=== PATIENT | female | born 1955 | race Caucasian/White ===

== ENCOUNTER 2022-09-21 23:02 | Inpatient (IN) | payer MEDICARE, SELFPAY ==
[2022-09-23 23:23] VITALS: PULSE 118; RESP 14; RESP 34; O2SAT 90
[2022-09-23 23:43] VITALS: PULSE 107; RESP 28; O2SAT 94
[2022-09-24] VITALS (75 sets, daily range): BP systolic 117–162; BP diastolic 59–83; PULSE 70–117; RESP 8–39; TEMP 36.2–36.7; O2SAT 83–100
[2022-09-24] MEDS: HYDROXYZINE PAMOATE 25 MG CAPSULE PO (02:15)
--- NOTE | 2022-09-24 03:07 | PC.NURSE ---
pt charting began on [facility] (app[facility] EMR at aprox 0040 09/24/22. prior charting etc can be found on paper charting in record or [employer] EMR
[2022-09-24] MEDS: IPRATROPIUM/ALBUTEROL SULFATE 3 ML AMPUL.NEB INH ×6 (03:42→23:24)
[2022-09-24 04:37] LABS: Hematocrit 45.9 % (36.0-48.0); Hemoglobin 14.4 g/dL (12.0-16.0); Immature Granulocytes Abs Auto 0.11 10^3/uL (0.00-0.03); Immature Granulocytes Pct Auto 1.1 % (0.0-0.5); Lymphocytes Absolute Auto 0.4 10^3/uL (1.2-3.8); Lymphocytes Percent Auto 4.4 % (20.5-60.0); Mean Corpuscular HGB Conc 31.4 g/dL (29.9-35.2); Mean Corpuscular Hemoglobin 31.3 pg (26.7-34.0); Mean Corpuscular Volume 99.8 fL (81.0-99.0); Mean Platelet Volume 9.6 fL (9.5-13.5); Monocytes Absolute Auto 1.7 10^3/uL (0.3-0.8); Monocytes Percent Auto 16.9 % (1.7-12.0); Neutrophils Absolute Auto 7.8 10^3/uL (1.4-6.5); Neutrophils Percent Auto 77.6 % (43.0-75.0); Nucleated Red Blood Cells 0; Platelet Count 239 10^3/uL (150-450); Red Cell Distribution Width 13.5 % (11.0-15.0); White Blood Count 10.1 10^3/uL (4.0-11.0)
[2022-09-24 05:00] LABS: Anion Gap 11.1; BUN Creatinine Ratio 27.1; Calcium 9.2 mg/dL (8.5-10.1); Carbon Dioxide 31.9 mmol/L (21.0-32.0); Chloride 101 mmol/L (98-107); Estimated GFR (African America >60 (>=60); Estimated GFR (Non-African Ame 58 (>=60); Glucose 192 mg/dL (74-106); Sodium 139 mmol/L (136-145)
--- NOTE | 2022-09-24 06:00 | XR_ITS ---
[address] [address] Patient Name: ERICA CHACON MRN: [id number] date: 1955 Sex: F Assigned Patient Location: ICU Current Patient Location: ICU Accession/Order Number: [id number] Exam Date: 09/24/2022 04:22 Report Date: 09/24/2022 23:00 At the request of: ALIS HEAD Procedure: XR chest 1V EXAM: XR chest 1V 09/24/2022 4:22 AM EDT OH001 CLINICAL STATEMENT: sob COMPARISON: 09/23/2022 TECHNIQUE: Single AP radiograph of the chest is submitted. FINDINGS: There is persistent pulmonary vascular congestion with interstitial edema. No acute airspace disease. The cardiac silhouette is normal. The costophrenic recesses are sharp. No pneumothorax. The bony elements are unremarkable. IMPRESSION: Persistent pulmonary vascular congestion with interstitial edema. Electronically authenticated by: TAMAR VALENTINE Date: 09/24/2022 23:00
[2022-09-24] MEDS: METHYLPREDNISOLONE SOD SUCC PF 40 MG/ML VIAL IVP ×3 (06:08→18:42)
[2022-09-24] MEDS: LEVOTHYROXINE SODIUM 112 MCG TABLET PO (06:09)
--- NOTE | 2022-09-24 07:17 | P.PLPN_ITS ---
reviewed Progress Note: A&P Assessment and Plan (1) Hypothyroidism (acquired): (2) Hypertension, essential: (3) COPD with exacerbation: (4) Acute respiratory failure with hypoxia: Plan 1.? Acute exacerbation of bronchiectasis.? More extensive mucus plugging on bronchoscopy 09/23/2022 than originally anticipated, based on CT chest 09/01/2022.? Inspissated secretions, mucus plugs throughout the entire bronchial tree.? Extensive washings and lavage was required.? Patient developed post- procedural bronchospasm.?? Wheezing has improved, but still has diffuse crackles.? CXR imaging reviewed?infiltrates likely secondary to instilled saline from lavage ? no elevation in WBC as sometimes seen post-bronchoscopy.? Continue promoting good pulmonary toilet ? PEP, saline nebs.? 2.? Haemophilus influenzae pneumonia.? Beta-lactamase positive.? Cultured from BAL yesterday 09/23/2022.? This would be present on admission.? Will start Rocephin. 3.? Acute hypercapnic respiratory failure.? Patient symptomatic this morning, improved with BiPAP adjustment.? Still at increased risk for acute worsening requiring urgent intubation.? 4.? Acute hypoxic respiratory failure secondary to #1 & #2.? Continues to have significant mucus production obstructing airflow, etc.? 5.? Acute exacerbation of COPD.? More wheezy/bronchospastic post- bronchoscopy yesterday, but wheezes somewhat improved today.? Continue bronchodilators, steroids. 6.? Multiple pulmonary nodules.? Unchanged on recent imaging. 7.? Tobacco abuse.? Smoking cessation. Patient?s respiratory status is critically ill requiring intensive care unit monitoring.? Developed acute hypercapnia overnight despite BiPAP to the point I almost had to intubate the patient.? With identification of bacteria, now there is a target for treatment.? Discussed with patient and that there should be signs of improvement in the next 24-48 hours with antibiotics. 60 minutes critical care time, including multiple bedside examinations, discussion with RT and RN several times throughout the day. Fall Risk Details Traylor Fall Scale Risk Level: Moderate Fall Risk Current Medications: Current Medications Albuterol/Ipratropium (Ipratropium/Albuterol Sulfate 3 Ml Ampul.Neb) 3 ml INH Q4H [facility] Last Admin: 09/24/22 03:42 Dose: 3 ml Aspirin (Aspirin 81 Mg Tablet.Dr) 81 mg PO QD [facility] Budesonide (Budesonide 0.5 Mg/2 Ml Ampule Neb) 0.5 mg IH BID@1100,2100 [facility] Enoxaparin Sodium (Enoxaparin Sodium 40 Mg/0.4 Ml Syringe) 40 mg SUBQ QD@0800 [facility] Guaifenesin (Guaifenesin 200 Mg/Dextromethorphan 20 Mg 10 Ml Syrup) 10 ml PO Q6H PRN PRN Reason: Cough Hydroxyzine Pamoate (Hydroxyzine Pamoate 25 Mg Capsule) 25 mg PO QID PRN PRN Reason: Anxiety Last Admin: 09/24/22 02:15 Dose: 25 mg Levothyroxine Sodium (Levothyroxine Sodium 112 Mcg Tablet) 112 mcg PO QD@0630 [facility] Last Admin: 09/24/22 06:09 Dose: 112 mcg Losartan Potassium (Losartan Potassium 50 Mg Tablet) 50 mg PO QD [facility] Methylprednisolone Sodium Succinate (Methylprednisolone Sod Succ Pf 40 Mg/Ml Vial) 40 mg IVP Q6H [facility] Last Admin: 09/24/22 06:08 Dose: 40 mg Nicotine (Nicotine 21 Mg Patch.Td24) 21 each TD QD PRN PRN Reason: NICOTINE WITHDRAWAL Ondansetron HCl (Ondansetron Pf 4 Mg/2 Ml Vial) 4 mg IV Q6H PRN PRN Reason: Nausea And Vomiting Polyethylene Glycol (Polyethylene Glycol 3350 17 Gm Powder Packet) 17 gm PO QD PRN PRN Reason: Constipation Sodium Chloride (0.9 % Sodium Chloride 10 Ml Syringe - Saline Flush) 10 ml IV Q15M PRN PRN Reason: SALINE FLUSH Sodium Chloride (Sodium Chloride 0.9% Inhalation 3 Ml Neb) 1 ml IH Q8H [facility] Last Admin: 09/24/22 00:56 Dose: Not Given Subjective Subjective Interval history: Patient was seen multiple times throughout the day, initially 7AM, Noon, 5:30PM...due to new EMR, I was not able to complete note this morning as I somehow was not an authorized provider, hence the late entry. Patient had bronchoscopy yesterday. Significant mucus plugging involving both mainstem bronchi with secretions into the trachea. Extensive washings/lavage performed. Post-procedurally, developed respiratory distress. Placed on Vapotherm, but did not tolerate. Transitioned to BiPAP - the positive pressure was better for the patient and O2 improved. Saw patient several times after transfer to ICU yesterday. Was bronchospastic then with BiPAP @ 14/8 FiO2 50%. Attempted to transition back to Vapotherm yesterday afternoon, but failed and placed back on BiPAP. This morning, she states she is feeling a little better. Remains on same settings with SpO2 ~94%. Less wheezing, but continues to have diffuse moist crackles. Had tachycardia and anxiety, improved with hydroxyzine. Denies any chest pain. During initial examination, patient appeared groggy. She fell asleep on me. I ordered an ABG which showed acute hypercapnic respiratory failure. Adjusted the BiPAP to 18/5. Repeat ABG at 11AM was slightly improved. Saw patient at noon. She was beginning to become fatigued. Discussed option of elective intubation with likely repeat bronchoscopy for clearance of secretions vs. repeating another ABG and see how she does. She elected to repeat another ABG. Repeat ABG this afternoon showed continued improvement. She still becomes hypoxic rapidly going from BiPAP to Vapotherm (SpO2 drops into the 70's). SHe has been coughing up yellow-green sputum and had multiple tissues full of mucus...the RN was proud to show me. Received call from lab that bronchoscopy culture was positive for H. flu, beta lactamase positive. I saw patient at ~17:30. She appeared better. in room. Spoke with both. She states she feels she has more energy now, and after coughing up the sputum, breathing is slightly improved. Will continue with BiPAP overnight and recheck in the morning. Exam Constitutional: Vital Signs, click to edit/add: Vital Signs - 24 hr 09/23/22 23:23 09/23/22 23:23 09/23/22 23:43 Temperature Pulse Rate 118 H 118 H 107 H Respiratory Rate 34 H 28 H Blood Pressure [Le ft Arm] Pulse Oximetry 90 L 90 L 94 L Oxygen Delivery Me thod Fraction of Inspir ed Oxygen 50 50 50 09/24/22 01:04 09/24/22 01:09 09/24/22 01:28 Temperature Pulse Rate 106 H 96 H 110 H Respiratory Rate Blood Pressure [Le ft Arm] 118/66 Pulse Oximetry 95 97 96 Oxygen Delivery Me thod Fraction of Inspir ed Oxygen 50 50 09/24/22 02:00 09/24/22 03:09 09/24/22 03:15 Temperature 97.6 F Pulse Rate 109 H 111 H Respiratory Rate 30 H 35 H Blood Pressure [Le ft Arm] 153/75 H 146/78 H Pulse Oximetry 91 L 93 L 93 L Oxygen Delivery Me thod BIPAP Fraction of Inspir ed Oxygen 50 50 09/24/22 03:17 09/24/22 03:42 09/24/22 04:05 Temperature Pulse Rate 105 H 103 H 96 H Respiratory Rate 23 Blood Pressure [Le ft Arm] 121/61 H Pulse Oximetry 94 L 98 Oxygen Delivery Me thod Fraction of Inspir ed Oxygen 50 09/24/22 03:43 09/24/22 03:52 09/24/22 05:33 Temperature Pulse Rate 103 H 93 H Respiratory Rate 34 H 20 Blood Pressure [Le ft Arm] Pulse Oximetry 96 98 Oxygen Delivery Me thod BIPAP BIPAP Fraction of Inspir ed Oxygen 50 50 50 09/24/22 05:34 09/24/22 06:15 Temperature Pulse Rate 98 H 108 H Respiratory Rate 33 H Blood Pressure [Le ft Arm] 117/59 L Pulse Oximetry 98 Oxygen Delivery Me thod Fraction of Inspir ed Oxygen HENMT: Other: Wearing BiPAP Respiratory: Effort & inspection: tachypneic Auscultation: crackles (moist inspiratory throughout) and wheezes (less than yesterday) Cardio: Rate: tachycardic Rhythm: regular rhythm GI: Common normals: soft to palpation Extremity: Common normals: no clubbing, cyanosis or edema Neuro: Common normals: oriented x3 and no focal motor deficits Psych: Common normals: cooperative and affect normal Skin: Common normals: no rashes or lesions noted
[2022-09-24] MEDS: SODIUM CHLORIDE 0.9% INHALATION 3 ML NEB 1 ML IH ×3 (07:44→23:25)
[2022-09-24] MEDS: LOSARTAN POTASSIUM 50 MG TABLET PO (08:09)
[2022-09-24] MEDS: ENOXAPARIN SODIUM 40 MG/0.4 ML SYRINGE SUBQ (08:09)
[2022-09-24] MEDS: POLYETHYLENE GLYCOL 3350 17 GM POWDER PACKET PO (08:10)
[2022-09-24] MEDS: ASPIRIN 81 MG TABLET.DR PO (08:11)
[2022-09-24 08:17] LABS: ABG PCO2 79.4 mmHg (35.0-45.0); Allen Test POSITIVE (POSITIVE); Base Excess ABG 4.2 mmol/L (-2.0-2.0); Oxygen Saturation ABG 93.8 %; PO2 ABG 72.1 mmHg (80.0-100.0)
[2022-09-24 08:18] LABS: Fractionated Inspired Oxygen 50 %; O2 Mode BIPAP
[2022-09-24 08:28] LABS: pH ABG 7.214 (7.350-7.450)
--- NOTE | 2022-09-24 08:50 | PC.NURSE ---
returned to BIPAP
--- NOTE | 2022-09-24 09:41 | CM.NOTE ---
Rounds made with Dr. Soni, no discharge for today. Discussed PT to see pt, Dr. Soni would like to wait until pt could be weaned from BIPAP. SW and Case Management will follow for any discharge needs.
--- NOTE | 2022-09-24 11:17 | PM.PN ---
Progress Note: Subjective Subjective Interval history: patient is a 67-year-old female with a past medical history of chronic obstructive pulmonary disease, hypothyroidism, and hypertension. She admits to three days of worsening cough shortness of breath with wheezing. She denies any recent changes with the exception of Breo to Trelogy 4 days ago. She also has felt some chills and a low-grade temp. She denies any sick contacts denies any chest pain nausea vomiting diarrhea, abdominal pain, headaches, other issues at this time. She denies having to use any home oxygen, she follows with Dr. Riggins as her primary care physician and also with pulmonary Dr. Lovelace. Did not improve much on Vapotherm, so decision for Bronchoscopy and since that time has required BIPAP therapy. Exam Narrative: Exam Narrative: General: Patient is alert, BIPAP is on Skin: no visible rashes, or ulcers Head: atraumatic, acephalic Eyes: PERRLA, no nystagmus present, conjunctiva clear, no scleral icterus Heart: Normal rate and rhythm, no murmurs/rubs/gallops Lungs: diminished breath sounds all lung hastings with some bilateral Rhonchi Abdomen: Normal audible bowel sounds, no distension, No palpable masses, no organomegaly, no rebound/guarding/ or rigidity Musculoskeletal: muscle atrophy noted, ROM is limited due to being in hospital bed, no swelling bilateral lower extremities Vascular: Normal carotid, radial, femoral, posterior tibial, and dorsalis pedis pulses Lymph: no supraclavicular, axillary, or anterior/posterior cervical adenopathy Neuro: CN II-X grossly intact, normal sensation upper and lower extremities Constitutional: Vital Signs, click to edit/add: Vital Signs - 24 hr 09/24/22 07:47 09/24/22 07:56 09/24/22 08:09 Temperature 97.9 F Pulse Rate 81 74 Respiratory Rate 22 Blood Pressure 143/70 H Blood Pressure [Le ft Arm] Pulse Oximetry 97 97 Oxygen Delivery Me thod Fraction of Inspir ed Oxygen 50 50 09/24/22 08:30 09/24/22 08:53 09/24/22 10:29 Temperature Pulse Rate Respiratory Rate 22 22 Blood Pressure Blood Pressure [Le ft Arm] Pulse Oximetry 83 L 98 Oxygen Delivery Me thod Vapotherm BIPAP Fraction of Inspir ed Oxygen 50 50 09/24/22 10:30 09/24/22 11:06 09/23/22 23:23 Temperature Pulse Rate 76 80 118 H Respiratory Rate 22 22 Blood Pressure Blood Pressure [Le ft Arm] 139/65 H Pulse Oximetry 98 98 90 L Oxygen Delivery Me thod BIPAP BIPAP Fraction of Inspir ed Oxygen 50 50 50 09/23/22 23:23 09/23/22 23:43 09/24/22 01:04 Temperature Pulse Rate 118 H 107 H 106 H Respiratory Rate 34 H 28 H Blood Pressure Blood Pressure [Le ft Arm] 118/66 Pulse Oximetry 90 L 94 L 95 Oxygen Delivery Me thod Fraction of Inspir ed Oxygen 50 50 50 09/24/22 01:09 09/24/22 01:28 09/24/22 02:00 Temperature Pulse Rate 96 H 110 H 109 H Respiratory Rate 30 H Blood Pressure Blood Pressure [Le ft Arm] 153/75 H Pulse Oximetry 97 96 91 L Oxygen Delivery Me thod BIPAP Fraction of Inspir ed Oxygen 50 50 09/24/22 03:09 09/24/22 03:15 09/24/22 03:17 Temperature 97.6 F Pulse Rate 111 H 105 H Respiratory Rate 35 H Blood Pressure Blood Pressure [Le ft Arm] 146/78 H Pulse Oximetry 93 L 93 L Oxygen Delivery Me thod Fraction of Inspir ed Oxygen 50 09/24/22 03:42 09/24/22 04:05 09/24/22 03:43 Temperature Pulse Rate 103 H 96 H 103 H Respiratory Rate 23 34 H Blood Pressure Blood Pressure [Le ft Arm] 121/61 H Pulse Oximetry 94 L 98 Oxygen Delivery Me thod BIPAP Fraction of Inspir ed Oxygen 50 50 09/24/22 03:52 09/24/22 05:33 09/24/22 05:34 Temperature Pulse Rate 93 H 98 H Respiratory Rate 20 33 H Blood Pressure Blood Pressure [Le ft Arm] 117/59 L Pulse Oximetry 96 98 98 Oxygen Delivery Me thod BIPAP Fraction of Inspir ed Oxygen 50 50 09/24/22 06:15 Temperature Pulse Rate 108 H Respiratory Rate Blood Pressure Blood Pressure [Le ft Arm] Pulse Oximetry Oxygen Delivery Me thod Fraction of Inspir ed Oxygen Progress Note: Objective Labs Labs: Short CBC 09/24/22 Range/Units 04:28 WBC 10.1 (4.0-11.0) 10^3/uL Hgb 14.4 (12.0-16.0) g/dL Hct 45.9 (36.0-48.0) % Plt Count 239 (150-450) 10^3/uL BMP 09/24/22 04:28 Sodium 139 Potassium 5.0 Chloride 101 Carbon Dioxide 31.9 BUN 26.0 H Creatinine 0.96 Glucose 192 H Calcium 9.2 Progress Note: A&P Assessment and Plan (1) Acute respiratory failure with hypoxia: (2) COPD with exacerbation: (3) Hypertension, essential: (4) Hypothyroidism (acquired): Plan #1 acute hypoxic respiratory failure secondary to acute exacerbation of chronic obstructive pulmonary disease-chest x-ray showed no acute processes, normal white blood cell count, normal normal viral panel. Patient is placed on IV steroids, scheduled DuoNeb's, Vapotherm and Pep therapy. Currently on BIPAP for hypoxia. consult pulmonary, Bronch 09/23/22, moved to ICU do to decompensation status; ABG's, Probable intubation #2 hypertension continue home losartan #3 hypothyroidism continue home levothyroxine Patient is a full code patient will be placed on Lovenox for deep vein thrombosis prophylaxis Patient is inpatient status and is expected to stay 2-3 days due to her hypoxia Fall Risk Details Traylor Fall Scale Risk Level: Low Fall Risk Current Medications: Current Medications Albuterol/Ipratropium (Ipratropium/Albuterol Sulfate 3 Ml Ampul.Neb) 3 ml INH Q4H [facility] Last Admin: 09/24/22 07:43 Dose: 3 ml Aspirin (Aspirin 81 Mg Tablet.) 81 mg PO QD [facility] Last Admin: 09/24/22 08:11 Dose: 81 mg Budesonide (Budesonide 0.5 Mg/2 Ml Ampule Neb) 0.5 mg IH BID@1100,2100 [facility] Enoxaparin Sodium (Enoxaparin Sodium 40 Mg/0.4 Ml Syringe) 40 mg SUBQ QD@0800 [facility] Last Admin: 09/24/22 08:09 Dose: 40 mg Guaifenesin (Guaifenesin 200 Mg/Dextromethorphan 20 Mg 10 Ml Syrup) 10 ml PO Q6H PRN PRN Reason: Cough Hydroxyzine Pamoate (Hydroxyzine Pamoate 25 Mg Capsule) 25 mg PO QID PRN PRN Reason: Anxiety Last Admin: 09/24/22 02:15 Dose: 25 mg Levothyroxine Sodium (Levothyroxine Sodium 112 Mcg Tablet) 112 mcg PO QD@0630 [facility] Last Admin: 09/24/22 06:09 Dose: 112 mcg Losartan Potassium (Losartan Potassium 50 Mg Tablet) 50 mg PO QD [facility] Last Admin: 09/24/22 08:09 Dose: 50 mg Methylprednisolone Sodium Succinate (Methylprednisolone Sod Succ Pf 40 Mg/Ml Vial) 40 mg IVP Q6H [facility] Last Admin: 09/24/22 06:08 Dose: 40 mg Nicotine (Nicotine 21 Mg Patch.Td24) 21 each TD QD PRN PRN Reason: NICOTINE WITHDRAWAL Ondansetron HCl (Ondansetron Pf 4 Mg/2 Ml Vial) 4 mg IV Q6H PRN PRN Reason: Nausea And Vomiting Polyethylene Glycol (Polyethylene Glycol 3350 17 Gm Powder Packet) 17 gm PO QD PRN PRN Reason: Constipation Last Admin: 09/24/22 08:10 Dose: 17 gm Sodium Chloride (0.9 % Sodium Chloride 10 Ml Syringe - Saline Flush) 10 ml IV Q15M PRN PRN Reason: SALINE FLUSH Sodium Chloride (Sodium Chloride 0.9% Inhalation 3 Ml Neb) 1 ml IH Q8H [facility] Last Admin: 09/24/22 07:44 Dose: 1 ml Time Spent With Patient Time: Total time spent is greater than 50% in coordination of care (as documented) at patient's floor/unit and/or counseling patient: Time with patient: 25 - 35 minutes
[2022-09-24] MEDS: BUDESONIDE 0.5 MG/2 ML AMPULE NEB IH ×2 (11:29→23:25)
[2022-09-24 11:42] LABS: ABG PCO2 74.3 mmHg (35.0-45.0); Base Excess ABG 5.3 mmol/L (-2.0-2.0); HCO3 ABG 32.5 mmol/L (22.0-26.0); Oxygen Saturation ABG 95.6 %; PO2 ABG 76.9 mmHg (80.0-100.0)
[2022-09-24 11:43] LABS: Allen Test POSITIVE (POSITIVE); Fractionated Inspired Oxygen 50 %; O2 Mode BIPAP
[2022-09-24 15:32] LABS: PO2 ABG 81.4 mmHg (80.0-100.0)
[2022-09-24 15:33] LABS: Allen Test POSITIVE (POSITIVE); Base Excess ABG 6.1 mmol/L (-2.0-2.0); HCO3 ABG 32.3 mmol/L (22.0-26.0); Oxygen Saturation ABG 96.9 %
[2022-09-24 15:34] LABS: Fractionated Inspired Oxygen 50 %; O2 Mode BIPAP
[2022-09-24 15:36] LABS: BIPAP Pressure 18/5
[2022-09-24 15:37] LABS: ABG PCO2 64.2 mmHg (35.0-45.0)
[2022-09-24] MEDS: CEFTRIAXONE 1 MG in 0.9 % SODIUM CHLORIDE 50 ML 100 MG IV (18:25)
[2022-09-24] MEDS: LACTATED RINGER'S SOLUTION 1,000 ML 50 ML IV (18:27)
[2022-09-25] VITALS (64 sets, daily range): BP systolic 82–170; BP diastolic 40–106; PULSE 74–117; RESP 13–32; O2SAT 89–100
[2022-09-25] MEDS: METHYLPREDNISOLONE SOD SUCC PF 40 MG/ML VIAL IVP ×4 (00:57→17:39)
[2022-09-25] MEDS: IPRATROPIUM/ALBUTEROL SULFATE 3 ML AMPUL.NEB INH ×6 (03:59→22:34)
--- NOTE | 2022-09-25 05:00 | XR_ITS ---
[address] [address] Patient Name: ERICA CHACON MRN: [id number] date: 1955 Sex: F Assigned Patient Location: ICU Current Patient Location: ICU Accession/Order Number: [id number] Exam Date: 09/25/2022 05:10 Report Date: 09/25/2022 07:41 At the request of: ALIS HEAD Procedure: XR chest 1V EXAMINATION: XR chest 1V HISTORY: Pneumonia, mucus plugging , shortness of breath COMPARISON: XR chest 09/24/2022 FINDINGS: LUNGS: Moderate opacities within mid and lower lung regions bilaterally. VASCULATURE: No increased pulmonary vasculature. PLEURA: No pneumothorax, effusion, or pleural thickening. CARDIAC: No cardiomegaly or cardiac silhouette abnormality. MEDIASTINUM: No visible mass or adenopathy. BONES: No fracture or visible bone lesion. OTHER: Negative. IMPRESSION: 1. Grossly stable moderate bilateral pulmonary infiltrates; pulmonary edema versus multifocal pneumonia. Electronically authenticated by: HANDY KEATING Date: 09/25/2022 07:41
[2022-09-25 05:49] LABS: Eosinophils Percent Auto 0.1 % (0.9-7.0); Hematocrit 45.3 % (36.0-48.0); Hemoglobin 14.1 g/dL (12.0-16.0); Immature Granulocytes Abs Auto 0.37 10^3/uL (0.00-0.03); Immature Granulocytes Pct Auto 3.7 % (0.0-0.5); Lymphocytes Absolute Auto 0.5 10^3/uL (1.2-3.8); Lymphocytes Percent Auto 4.9 % (20.5-60.0); Mean Corpuscular HGB Conc 31.1 g/dL (29.9-35.2); Mean Corpuscular Hemoglobin 31.3 pg (26.7-34.0); Mean Corpuscular Volume 100.4 fL (81.0-99.0); Mean Platelet Volume 9.8 fL (9.5-13.5); Monocytes Absolute Auto 1.1 10^3/uL (0.3-0.8); Monocytes Percent Auto 11.1 % (1.7-12.0); Neutrophils Percent Auto 80.2 % (43.0-75.0); Nucleated Red Blood Cells 0; Platelet Count 227 10^3/uL (150-450); Red Blood Count 4.51 10^6/uL (4.20-5.40); Red Cell Distribution Width 13.6 % (11.0-15.0)
[2022-09-25] MEDS: SODIUM CHLORIDE 0.9% INHALATION 3 ML NEB 1 ML IH ×3 (07:07→22:35)
[2022-09-25 07:18] LABS: Alanine Aminotransferase 29 U/L (14-59); Albumin Globulin Ratio 0.6; Albumin Level 2.7 g/dL (3.4-5.0); Alkaline Phosphatase 62 U/L (46-116); Anion Gap 9.8; Aspartate Amino Transferase 18 U/L (15-37); BUN Creatinine Ratio 30.3; Bilirubin Total 0.2 mg/dL (0.2-1.0); Calcium 9.4 mg/dL (8.5-10.1); Carbon Dioxide 34.8 mmol/L (21.0-32.0); Chloride 101 mmol/L (98-107); Estimated GFR (African America >60 (>=60); Estimated GFR (Non-African Ame >60 (>=60); Globulin 4.3 g/dL; Glucose 175 mg/dL (74-106); Potassium 4.6 mmol/L (3.5-5.1); Sodium 141 mmol/L (136-145)
[2022-09-25] MEDS: LEVOTHYROXINE SODIUM 112 MCG TABLET PO (08:49)
[2022-09-25] MEDS: ENOXAPARIN SODIUM 40 MG/0.4 ML SYRINGE SUBQ (08:49)
[2022-09-25] MEDS: ASPIRIN 81 MG TABLET.DR PO (08:50)
[2022-09-25] MEDS: LOSARTAN POTASSIUM 50 MG TABLET 100 MG PO (08:52)
[2022-09-25 09:19] LABS: Allen Test POSITIVE (POSITIVE); Base Excess ABG 9.8 mmol/L (-2.0-2.0); Fractionated Inspired Oxygen 50 %; HCO3 ABG 36.2 mmol/L (22.0-26.0); O2 Mode BIPAP; Oxygen Saturation ABG 96.2 %; PO2 ABG 84.2 mmHg (80.0-100.0)
[2022-09-25 09:20] LABS: BIPAP Pressure 16/5; Puncture Site LR; Rate 14
[2022-09-25 09:26] LABS: pH ABG 7.298 (7.350-7.450)
--- NOTE | 2022-09-25 10:11 | PC.NURSE ---
Dr Soni present
--- NOTE | 2022-09-25 10:40 | CM.NOTE ---
Rounds made with Dr. Soni, pt remains on BIPAP and continues with dyspnea. Dr. Soni will reach out to Dr. Lovelace regarding any changes in plan of care. SW and Case Management will follow for any discharge needs.
--- NOTE | 2022-09-25 11:16 | PC.NURSE ---
1110 Dr Lovelace in and examines, discusses condition and plan of treatment. Consent obtained for intubation. Patient awake alert and oriented 1115 Dr Lovelace speaks with husbandregarding plan of treatment 1118 Cardiac, spo2 nibp monitoring in use. Respirator therapy at bedside. 1118 heart rate 90 sinus rhthym Sp02 97% 1121 Versed 5 mg ivp 1123 Etomidate 10 mg ivp 1124 intabed 8.0 ET tube 26CM @ lip, Positve color change. Breath sounds bilaterally. Spo2 90. Being bagged by [employer]. 1125 ET tuve secured with twil tape per [employer] staff, connected to ventilator. Diprivan started @20 mcg
--- NOTE | 2022-09-25 11:39 | PC.NURSE ---
1 liter of LR initiated.
--- NOTE | 2022-09-25 11:41 | PC.NURSE ---
Bronchoscopy started With surgery staff present
--- NOTE | 2022-09-25 11:49 | PC.NURSE ---
Procedure (Bronchoscopy) completed. Surgery staff done.
--- NOTE | 2022-09-25 11:51 | PC.NURSE ---
Vent settings TV 450, Rate 16 FIO 50% Peep 5 Assist control
[2022-09-25] MEDS: BUDESONIDE 0.5 MG/2 ML AMPULE NEB IH ×2 (12:04→22:34)
[2022-09-25] MEDS: LEVOFLOXACIN IN DEXTROSE 5 % 500 MG/100 ML PIGGYBACK 100 MG IV (12:14)
[2022-09-25] MEDS: PROPOFOL 100 ML 11.865 MG IV (12:15)
--- NOTE | 2022-09-25 12:44 | PM.PLPN ---
Progress Note: A&P Assessment and Plan (1) Acute exacerbation of bronchiectasis: Plan 1.? Acute exacerbation of bronchiectasis.? Continues to have secretions. Increased work of breathing. 2.? Haemophilus influenzae pneumonia.? Beta-lactamase positive.? Cultured from BAL yesterday 09/23/2022.? Started on Rocephin, hospitalist added Levaquin. 3.? Acute hypercapnic respiratory failure.? Worse hypercapnia despite nearly constant BiPAP >24 hours. 4.? Acute hypoxic respiratory failure secondary to #1 & #2.? Patient is tiring out, rapidly desaturates even on Vapotherm. 5.? Acute exacerbation of COPD.? Rhonchi, wheezes returning. 6.? Multiple pulmonary nodules.? Unchanged on recent imaging. 7.? Tobacco abuse.? Smoking cessation. Patient is critically ill requiring intensive care unit management. Electively intubated patient as patient was tiring out. Bronchoscopy that followed showed continued mucus plugging, though not to the extent as on 09/23/2022. Will continue with ventilator management for now. Family, Dr. Dominick Soni updated. Total critical care time 40 minutes excluding procedures. Fall Risk Details Traylor Fall Scale Risk Level: Moderate Fall Risk Current Medications: Current Medications Albuterol/Ipratropium (Ipratropium/Albuterol Sulfate 3 Ml Ampul.Neb) 3 ml INH Q4H [facility] Last Admin: 09/25/22 12:04 Dose: 3 ml Aspirin (Aspirin 81 Mg Tablet.) 81 mg PO QD [facility] Last Admin: 09/25/22 08:50 Dose: 81 mg Budesonide (Budesonide 0.5 Mg/2 Ml Ampule Neb) 0.5 mg IH BID@1100,2300 [facility] Last Admin: 09/25/22 12:04 Dose: 0.5 mg Enoxaparin Sodium (Enoxaparin Sodium 40 Mg/0.4 Ml Syringe) 40 mg SUBQ QD@0800 [facility] Last Admin: 09/25/22 08:49 Dose: 40 mg Guaifenesin (Guaifenesin 200 Mg/Dextromethorphan 20 Mg 10 Ml Syrup) 10 ml PO Q6H PRN PRN Reason: Cough Hydroxyzine Pamoate (Hydroxyzine Pamoate 25 Mg Capsule) 25 mg PO QID PRN PRN Reason: Anxiety Last Admin: 09/24/22 02:15 Dose: 25 mg Ceftriaxone Sodium 1 mg/ (Sodium Chloride) 50 mls @ 100 mls/hr IV Q24H [facility] Last Infusion: 09/24/22 18:55 Dose: Infused Lactated Ringer's (Lactated Ringers) 1,000 mls @ 50 mls/hr IV .Q20H [facility] Last Admin: 09/24/22 18:27 Dose: 50 mls/hr Levofloxacin/Dextrose (Levaquin 500 Mg/100 Ml-D5w) 500 mg in 100 mls @ 100 mls/hr IV Q24H [facility] Last Admin: 09/25/22 12:14 Dose: 100 ml/hr, 100 mls/hr Propofol (Diprivan) 100 mls @ 2.373 mls/hr IV Q24H [facility] Last Infusion: 09/25/22 12:35 Dose: 50 mcg/kg/min, 23.73 mls/hr Lactated Ringer's (Lactated Ringers) 1,000 mls @ 1,000 mls/hr IV .Q1H [facility] Stop: 09/25/22 12:44 Levothyroxine Sodium (Levothyroxine Sodium 112 Mcg Tablet) 112 mcg PO QD@0630 [facility] Last Admin: 09/25/22 08:49 Dose: 112 mcg Losartan Potassium (Losartan Potassium 50 Mg Tablet) 100 mg PO QAM [facility] Last Admin: 09/25/22 08:52 Dose: 100 mg Methylprednisolone Sodium Succinate (Methylprednisolone Sod Succ Pf 40 Mg/Ml Vial) 40 mg IVP Q6H [facility] Last Admin: 09/25/22 06:01 Dose: 40 mg Nicotine (Nicotine 21 Mg Patch.Td24) 21 each TD QD PRN PRN Reason: NICOTINE WITHDRAWAL Ondansetron HCl (Ondansetron Pf 4 Mg/2 Ml Vial) 4 mg IV Q6H PRN PRN Reason: Nausea And Vomiting Polyethylene Glycol (Polyethylene Glycol 3350 17 Gm Powder Packet) 17 gm PO QD PRN PRN Reason: Constipation Last Admin: 09/24/22 08:10 Dose: 17 gm Sodium Chloride (0.9 % Sodium Chloride 10 Ml Syringe - Saline Flush) 10 ml IV Q15M PRN PRN Reason: SALINE FLUSH Sodium Chloride (Sodium Chloride 0.9% Inhalation 3 Ml Neb) 1 ml IH TID@0900,1500,2300 [facility] Subjective Subjective Interval history: Patient not doing as well today. ABG worse, increased work of breathing. Patient states she is tiring out. Had discussion with her regarding options: either continue with BiPAP (though if she takes it off, her SpO2 plummets even with Vapotherm, or to allow elective intubation to let her rest, and bronchoscopy to follow to clear secretions. I estimated she would be on the ventilator ~3 days at least until she improves (which I anticipate). The patient voiced agreement. Her , Samuel, was notified and also voiced agreement. [id number] present in room and also notified. Patient was intubated with 8.0 ETT and bronchoscopy followed noted scattered mucus plugging throughout the bronchi...it was not as much as bronchoscopy on 09/23/2022, but still significant. Exam Narrative: Exam Narrative: Appears tired, increased work of breathing. Constitutional: Vital Signs, click to edit/add: Vital Signs - 24 hr 09/24/22 12:59 09/24/22 15:06 09/24/22 12:50 Temperature Pulse Rate 106 H 95 H Respiratory Rate 22 22 38 H Blood Pressure Blood Pressure [Le ft Arm] Pulse Oximetry 93 L 88 L Oxygen Delivery Me thod BIPAP Oxygen Delivery Fl ow Rate Fraction of Inspir ed Oxygen 50 09/24/22 13:00 09/24/22 13:10 09/24/22 13:20 Temperature Pulse Rate 101 H 99 H 84 Respiratory Rate 26 H 29 H 20 Blood Pressure Blood Pressure [Le ft Arm] Pulse Oximetry 93 L 93 L 96 Oxygen Delivery Me thod Oxygen Delivery Fl ow Rate Fraction of Inspir ed Oxygen 09/24/22 13:30 09/24/22 13:40 09/24/22 13:50 Temperature Pulse Rate 101 H 98 H 80 Respiratory Rate 29 H 27 H 19 Blood Pressure Blood Pressure [Le ft Arm] Pulse Oximetry 96 94 L 98 Oxygen Delivery Me thod Oxygen Delivery Fl ow Rate Fraction of Inspir ed Oxygen 09/24/22 14:00 09/24/22 14:10 09/24/22 14:20 Temperature Pulse Rate 84 79 70 Respiratory Rate 32 H 24 22 Blood Pressure Blood Pressure [Le ft Arm] Pulse Oximetry 98 97 97 Oxygen Delivery Me thod Oxygen Delivery Fl ow Rate Fraction of Inspir ed Oxygen 09/24/22 14:30 09/24/22 14:40 09/24/22 14:50 Temperature Pulse Rate 75 70 74 Respiratory Rate 21 20 24 Blood Pressure Blood Pressure [Le ft Arm] Pulse Oximetry 97 99 100 Oxygen Delivery Me thod Oxygen Delivery Fl ow Rate Fraction of Inspir ed Oxygen 09/24/22 15:00 09/24/22 15:11 09/24/22 15:20 Temperature Pulse Rate 78 71 81 Respiratory Rate 27 H 20 Blood Pressure Blood Pressure [Le ft Arm] Pulse Oximetry 100 100 99 Oxygen Delivery Me thod Oxygen Delivery Fl ow Rate Fraction of Inspir ed Oxygen 50 09/24/22 18:10 09/24/22 19:30 09/24/22 19:57 Temperature 97.9 F Pulse Rate 81 95 H Respiratory Rate 20 20 Blood Pressure Blood Pressure [Le ft Arm] 139/65 H Pulse Oximetry 99 94 L Oxygen Delivery Me thod Oxygen Delivery Fl ow Rate Fraction of Inspir ed Oxygen 50 09/24/22 19:57 09/24/22 19:57 09/24/22 15:20 Temperature Pulse Rate 97 H 80 Respiratory Rate 30 H 25 H Blood Pressure Blood Pressure [Le ft Arm] Pulse Oximetry 94 L 94 L 98 Oxygen Delivery Me thod BIPAP BIPAP Oxygen Delivery Fl ow Rate Fraction of Inspir ed Oxygen 50 50 09/24/22 15:31 09/24/22 15:40 09/24/22 15:52 Temperature Pulse Rate 87 90 101 H Respiratory Rate 22 25 H 32 H Blood Pressure Blood Pressure [Le ft Arm] Pulse Oximetry 97 Oxygen Delivery Me thod Oxygen Delivery Fl ow Rate Fraction of Inspir ed Oxygen 09/24/22 16:00 09/24/22 16:11 09/24/22 16:20 Temperature Pulse Rate 101 H 91 H 90 Respiratory Rate 21 28 H 28 H Blood Pressure Blood Pressure [Le ft Arm] Pulse Oximetry Oxygen Delivery Me thod Oxygen Delivery Fl ow Rate Fraction of Inspir ed Oxygen 09/24/22 16:30 09/24/22 16:40 09/24/22 16:50 Temperature Pulse Rate 93 H 97 H 75 Respiratory Rate 36 H 27 H 20 Blood Pressure Blood Pressure [Le ft Arm] Pulse Oximetry 98 97 Oxygen Delivery Me thod Oxygen Delivery Fl ow Rate Fraction of Inspir ed Oxygen 09/24/22 17:00 09/24/22 17:10 09/24/22 17:23 Temperature Pulse Rate 83 95 H 117 H Respiratory Rate 22 15 30 H Blood Pressure Blood Pressure [Le ft Arm] Pulse Oximetry 97 96 Oxygen Delivery Me thod Oxygen Delivery Fl ow Rate Fraction of Inspir ed Oxygen 09/24/22 17:30 09/24/22 17:41 09/24/22 17:50 Temperature Pulse Rate 104 H 110 H 106 H Respiratory Rate 27 H 24 29 H Blood Pressure Blood Pressure [Le ft Arm] Pulse Oximetry 93 L 87 L Oxygen Delivery Me thod Oxygen Delivery Fl ow Rate Fraction of Inspir ed Oxygen 09/24/22 18:01 09/24/22 18:10 09/24/22 18:20 Temperature Pulse Rate 110 H 107 H 110 H Respiratory Rate 20 25 H 39 H Blood Pressure Blood Pressure [Le ft Arm] Pulse Oximetry 88 L 91 L Oxygen Delivery Me thod Oxygen Delivery Fl ow Rate Fraction of Inspir ed Oxygen 09/24/22 18:30 09/24/22 18:40 09/24/22 18:50 Temperature Pulse Rate 99 H 103 H 96 H Respiratory Rate 22 27 H 30 H Blood Pressure Blood Pressure [Le ft Arm] Pulse Oximetry 94 L 92 L 94 L Oxygen Delivery Me thod Oxygen Delivery Fl ow Rate Fraction of Inspir ed Oxygen 09/24/22 19:00 09/24/22 19:10 09/24/22 19:20 Temperature Pulse Rate 97 H 78 Respiratory Rate 28 H 20 Blood Pressure Blood Pressure [Le ft Arm] Pulse Oximetry 92 L 93 L 97 Oxygen Delivery Me thod Oxygen Delivery Fl ow Rate Fraction of Inspir ed Oxygen 09/24/22 19:30 09/24/22 19:40 09/24/22 19:44 Temperature 97.2 F L Pulse Rate 95 H 92 H 105 H Respiratory Rate 32 H 29 H 27 H Blood Pressure 161/77 H Blood Pressure [Le ft Arm] Pulse Oximetry 95 94 L 91 L Oxygen Delivery Me thod BIPAP Oxygen Delivery Fl ow Rate 0 Fraction of Inspir ed Oxygen 50 09/24/22 19:44 09/24/22 19:44 09/24/22 21:01 Temperature Pulse Rate 97 H 92 H 87 Respiratory Rate 32 H 23 25 H Blood Pressure 161/77 H 162/80 H Blood Pressure [Le ft Arm] Pulse Oximetry 93 L 92 L 96 Oxygen Delivery Me thod BIPAP Oxygen Delivery Fl ow Rate Fraction of Inspir ed Oxygen 50 09/24/22 20:00 09/24/22 23:26 09/24/22 23:26 Temperature Pulse Rate 108 H 114 H 110 H Respiratory Rate 32 H Blood Pressure Blood Pressure [Le ft Arm] Pulse Oximetry 92 L 92 L 92 L Oxygen Delivery Me thod BIPAP Oxygen Delivery Fl ow Rate Fraction of Inspir ed Oxygen 50 50 09/24/22 21:01 09/24/22 22:02 09/24/22 23:10 Temperature 98.0 F Pulse Rate 81 112 H 105 H Respiratory Rate 24 33 H 24 Blood Pressure 162/80 H 132/75 H 126/83 H Blood Pressure [Le ft Arm] Pulse Oximetry 97 91 L 98 Oxygen Delivery Me thod BIPAP BIPAP BIPAP Oxygen Delivery Fl ow Rate Fraction of Inspir ed Oxygen 50 50 09/25/22 00:15 09/25/22 00:15 09/25/22 02:08 Temperature Pulse Rate 98 H 115 H Respiratory Rate 22 Blood Pressure Blood Pressure [Le ft Arm] Pulse Oximetry 97 Oxygen Delivery Me thod Oxygen Delivery Fl ow Rate Fraction of Inspir ed Oxygen 09/24/22 23:10 09/25/22 02:19 09/25/22 04:37 Temperature Pulse Rate 117 H 117 H 100 H Respiratory Rate 31 H 28 H Blood Pressure 126/83 H Blood Pressure [Le ft Arm] Pulse Oximetry 93 L 94 L 97 Oxygen Delivery Me thod Oxygen Delivery Fl ow Rate Fraction of Inspir ed Oxygen 50 09/25/22 04:46 09/25/22 02:19 09/25/22 04:04 Temperature Pulse Rate 116 H 103 H Respiratory Rate 22 32 H 25 H Blood Pressure 163/80 H 170/77 H Blood Pressure [Le ft Arm] Pulse Oximetry 94 L 97 Oxygen Delivery Me thod Oxygen Delivery Fl ow Rate Fraction of Inspir ed Oxygen 09/25/22 04:00 09/25/22 04:04 09/25/22 06:19 Temperature Pulse Rate 112 H 99 H 94 H Respiratory Rate 19 Blood Pressure 170/77 H Blood Pressure [Le ft Arm] Pulse Oximetry 93 L 98 Oxygen Delivery Me thod BIPAP Oxygen Delivery Fl ow Rate Fraction of Inspir ed Oxygen 50 09/25/22 07:34 09/25/22 07:09 09/25/22 07:09 Temperature Pulse Rate 107 H Respiratory Rate 24 Blood Pressure Blood Pressure [Le ft Arm] Pulse Oximetry 96 96 Oxygen Delivery Me thod BIPAP Oxygen Delivery Fl ow Rate Fraction of Inspir ed Oxygen 50 50 09/25/22 04:04 09/25/22 07:32 09/25/22 07:32 Temperature Pulse Rate 110 H 93 H 74 Respiratory Rate 25 H 27 H 23 Blood Pressure 170/77 H 149/106 H 149/106 H Blood Pressure [Le ft Arm] Pulse Oximetry 96 98 Oxygen Delivery Me thod Oxygen Delivery Fl ow Rate Fraction of Inspir ed Oxygen 09/25/22 07:32 09/25/22 11:16 09/25/22 11:18 Temperature Pulse Rate 90 88 91 H Respiratory Rate 29 H 20 24 Blood Pressure 149/106 H 144/74 H 152/68 H Blood Pressure [Le ft Arm] Pulse Oximetry 98 98 Oxygen Delivery Me thod Oxygen Delivery Fl ow Rate Fraction of Inspir ed Oxygen 09/25/22 11:20 09/25/22 11:23 09/25/22 11:25 Temperature Pulse Rate 90 99 H 101 H Respiratory Rate 21 16 18 Blood Pressure 156/69 H 127/65 H 125/72 H Blood Pressure [Le ft Arm] Pulse Oximetry 98 92 L 94 L Oxygen Delivery Me thod Oxygen Delivery Fl ow Rate Fraction of Inspir ed Oxygen 09/25/22 11:28 09/25/22 11:30 09/25/22 11:33 Temperature Pulse Rate 91 H 89 82 Respiratory Rate 19 13 21 Blood Pressure 106/53 L 107/63 93/61 Blood Pressure [Le ft Arm] Pulse Oximetry 95 97 Oxygen Delivery Me thod Oxygen Delivery Fl ow Rate Fraction of Inspir ed Oxygen 09/25/22 11:35 09/25/22 11:37 09/25/22 11:40 Temperature Pulse Rate 85 84 86 Respiratory Rate 13 13 Blood Pressure 82/41 L 93/53 L 99/43 L Blood Pressure [Le ft Arm] Pulse Oximetry 95 93 L 91 L Oxygen Delivery Me thod Oxygen Delivery Fl ow Rate Fraction of Inspir ed Oxygen 09/25/22 11:43 09/25/22 11:45 09/25/22 11:48 Temperature Pulse Rate 84 81 84 Respiratory Rate Blood Pressure 105/46 L 108/52 L 101/43 L Blood Pressure [Le ft Arm] Pulse Oximetry 92 L 91 L 96 Oxygen Delivery Me thod Oxygen Delivery Fl ow Rate Fraction of Inspir ed Oxygen 09/25/22 11:50 09/25/22 11:53 09/25/22 11:55 Temperature Pulse Rate 85 83 85 Respiratory Rate Blood Pressure 102/60 109/75 110/65 Blood Pressure [Le ft Arm] Pulse Oximetry 97 92 L 89 L Oxygen Delivery Me thod Oxygen Delivery Fl ow Rate Fraction of Inspir ed Oxygen 09/25/22 12:00 09/25/22 12:05 Temperature Pulse Rate 81 83 Respiratory Rate Blood Pressure 101/59 L Blood Pressure [Le ft Arm] Pulse Oximetry 91 L 92 L Oxygen Delivery Me thod Oxygen Delivery Fl ow Rate Fraction of Inspir ed Oxygen HENMT: Other: Wearing BiPAP Respiratory: Other: Increased rhonchi/crackles, less air movement, expiratory wheezes now present Cardio: Other: RRR GI: Other: Soft : Other: [place] Neuro: Other: Intact Psych: Other: Alert, but tired Urinary Catheter Management Urinary Catheter Management Urethral: Cath placed during this visit: yes Urethral indwelling: Yes Reason for continuing: measure accurate output Insertion date: 09/25/22 Insertion time: 09:38
--- NOTE | 2022-09-25 12:45 | XR_ITS ---
The [address] [address] Patient Name: ERICA CHACON MRN: [id number] date: 1955 Sex: F Assigned Patient Location: ICU Current Patient Location: ICU Accession/Order Number: [id number] Exam Date: 09/25/2022 12:45 Report Date: 09/25/2022 13:26 At the request of: ALIS HEAD Procedure: XR chest 1V EXAM: XR chest 1V at 1218 hours HISTORY: Respiratory distres - Intubated patient COMPARISON: 09/25/2022 at 0443 hours TECHNIQUE: AP semiupright portable chest x-ray FINDINGS: An endotracheal tube is now in place with the tip 4 cm above the ayush. An NG tube courses into the stomach and needs to be advanced further. A right-sided PICC line is in place with the tip in the left subclavian vein. The heart is not enlarged. Patchy bilateral infiltrates are again noted. There is no evidence of an effusion or pneumothorax. IMPRESSION: Interval placement of endotracheal and nasogastric tubes. The NG tube needs to be advanced further into the stomach. Interval placement of the PICC line. Patchy interstitial changes are seen throughout the lungs without evidence of a pneumothorax. Electronically authenticated by: JERALD PEREZ Date: 09/25/2022 13:26
[2022-09-25] MEDS: LACTATED RINGER'S SOLUTION 1,000 ML 1000 ML IV (12:50)
--- NOTE | 2022-09-25 12:54 | PM.CCPRC ---
Procedures Intubation Pre procedure diagnosis: Respiratory failure Post procedure diagnosis: Respiratory failure Written consent by: patient Verification/time out: correct patient, correct procedure and time out performed Name of person performing procedure: Sukh Lovelace Sedative: other (Versed 5mg IVP, Ketamine 10mg IVP) Laryngoscope: other ([place]-Scope) ET Tube Size: 8 Tube Secured Depth (cm): 24 Tube Placement Confirmation: confirmation by capnometry Estimated blood loss (if any): none Intubation Complications: none Patient Tolerated Procedure: well
--- NOTE | 2022-09-25 12:57 | W.PM.PROCNOT ---
Date of procedure: 09/25/22 Pre-op diagnosis: Mucus plugging Post-op diagnosis: same Procedure: Therapeutic flexible bronchoscopy Patient was previously intubated with an 8.0 ETT. Endoscopy equipment was brought to the ICU. She previously underwent bronchoscopy on 09/23/2022 with significant mucus plugging throughout the bronchial tree. No endobronchial lesions were noted then; the objective for this procedure was therapeutic clearance of secretions. Patient was sedated previously with Versed 5mg and Etomidate 10mg from intubation. Patient was started on a propofol gtt with 25mcg bolus and 5mg/kg/min gtt - moderate sedation was managed by me (15 minutes). Patient's oxygenation and vitals were montiored. bronchoscope was entered through the endotracheal tube adapter to the main ayush where a large amount of mucus was noted. This was removed. The right and left bronchial trees were irrigated with saline with mucus plugs removed. The airways appeared more inflamed than prior bronchoscopy. After secretions were cleared from each lobe, they were surveyed again with remnant mucus plugs and inspissated mucus removed. The bronchoscope was extracted. Patient did well. Patient will remain on ventilator for the next several days to allow her to rest. Anesthesia: Moderate Sedation Surgeon: Sukh Lovelace Estimated blood loss (mL): 0 Disposition: ICU
--- NOTE | 2022-09-25 13:30 | P.PN_ITS ---
Progress Note: Subjective Subjective Interval history: patient is a 67-year-old female with a past medical history of chronic obstructive pulmonary disease, hypothyroidism, and hypertension. She admits to three days of worsening cough shortness of breath with wheezing. She denies any recent changes with the exception of Breo to [facility] 4 days ago. She also has felt some chills and a low-grade temp. She denies any sick contacts denies any chest pain nausea vomiting diarrhea, abdominal pain, headaches, other issues at this time. She denies having to use any home oxygen, she follows with Dr. Riggins as her primary care physician and also with pulmonary Dr. Lovelace. Did not improve much on Vapotherm, so decision for Bronchoscopy and since that time has required BIPAP therapy. She reports this morning is tiring out on the BiPAP. Her ABGs have worsened showing significant respiratory acidosis, potential ARDS developing. Pulmonary plans for intubation and ventilation. Positive bronchial washings for Haemophilus influenza, started on Rocephin but will add Levaquin today. [id number] present at bedside at the time of exam. Exam Narrative: Exam Narrative: General: Patient is alert, BIPAP is on Skin: no visible rashes, or ulcers Head: atraumatic, acephalic Eyes: PERRLA, no nystagmus present, conjunctiva clear, no scleral icterus Heart: Normal rate and rhythm, no murmurs/rubs/gallops Lungs: diminished breath sounds all lung hastings with some bilateral Rhonchi Abdomen: Normal audible bowel sounds, no distension, No palpable masses, no organomegaly, no rebound/guarding/ or rigidity Musculoskeletal: muscle atrophy noted, ROM is limited due to being in hospital bed, no swelling bilateral lower extremities Vascular: Normal carotid, radial, femoral, posterior tibial, and dorsalis pedis pulses Lymph: no supraclavicular, axillary, or anterior/posterior cervical adenopathy Neuro: CN II-X grossly intact, normal sensation upper and lower extremities Constitutional: Vital Signs, click to edit/add: Vital Signs - 24 hr 09/24/22 15:06 09/24/22 13:40 09/24/22 13:50 Temperature Pulse Rate 98 H 80 Respiratory Rate 22 27 H 19 Blood Pressure Blood Pressure [Le ft Arm] Pulse Oximetry 94 L 98 Oxygen Delivery Me thod Oxygen Delivery Fl ow Rate Fraction of Inspir ed Oxygen 09/24/22 14:00 09/24/22 14:10 09/24/22 14:20 Temperature Pulse Rate 84 79 70 Respiratory Rate 32 H 24 22 Blood Pressure Blood Pressure [Le ft Arm] Pulse Oximetry 98 97 97 Oxygen Delivery Me thod Oxygen Delivery Fl ow Rate Fraction of Inspir ed Oxygen 09/24/22 14:30 09/24/22 14:40 09/24/22 14:50 Temperature Pulse Rate 75 70 74 Respiratory Rate 21 20 24 Blood Pressure Blood Pressure [Le ft Arm] Pulse Oximetry 97 99 100 Oxygen Delivery Me thod Oxygen Delivery Fl ow Rate Fraction of Inspir ed Oxygen 09/24/22 15:00 09/24/22 15:11 09/24/22 15:20 Temperature Pulse Rate 78 71 81 Respiratory Rate 27 H 20 Blood Pressure Blood Pressure [Le ft Arm] Pulse Oximetry 100 100 99 Oxygen Delivery Me thod Oxygen Delivery Fl ow Rate Fraction of Inspir ed Oxygen 50 09/24/22 18:10 09/24/22 19:30 09/24/22 19:57 Temperature 97.9 F Pulse Rate 81 95 H Respiratory Rate 20 20 Blood Pressure Blood Pressure [Le ft Arm] 139/65 H Pulse Oximetry 99 94 L Oxygen Delivery Me thod Oxygen Delivery Fl ow Rate Fraction of Inspir ed Oxygen 50 09/24/22 19:57 09/24/22 19:57 09/24/22 15:20 Temperature Pulse Rate 97 H 80 Respiratory Rate 30 H 25 H Blood Pressure Blood Pressure [Le ft Arm] Pulse Oximetry 94 L 94 L 98 Oxygen Delivery Me thod BIPAP BIPAP Oxygen Delivery Fl ow Rate Fraction of Inspir ed Oxygen 50 50 09/24/22 15:31 09/24/22 15:40 09/24/22 15:52 Temperature Pulse Rate 87 90 101 H Respiratory Rate 22 25 H 32 H Blood Pressure Blood Pressure [Le ft Arm] Pulse Oximetry 97 Oxygen Delivery Me thod Oxygen Delivery Fl ow Rate Fraction of Inspir ed Oxygen 09/24/22 16:00 09/24/22 16:11 09/24/22 16:20 Temperature Pulse Rate 101 H 91 H 90 Respiratory Rate 21 28 H 28 H Blood Pressure Blood Pressure [Le ft Arm] Pulse Oximetry Oxygen Delivery Me thod Oxygen Delivery Fl ow Rate Fraction of Inspir ed Oxygen 09/24/22 16:30 09/24/22 16:40 09/24/22 16:50 Temperature Pulse Rate 93 H 97 H 75 Respiratory Rate 36 H 27 H 20 Blood Pressure Blood Pressure [Le ft Arm] Pulse Oximetry 98 97 Oxygen Delivery Me thod Oxygen Delivery Fl ow Rate Fraction of Inspir ed Oxygen 09/24/22 17:00 09/24/22 17:10 09/24/22 17:23 Temperature Pulse Rate 83 95 H 117 H Respiratory Rate 22 15 30 H Blood Pressure Blood Pressure [Le ft Arm] Pulse Oximetry 97 96 Oxygen Delivery Me thod Oxygen Delivery Fl ow Rate Fraction of Inspir ed Oxygen 09/24/22 17:30 09/24/22 17:41 09/24/22 17:50 Temperature Pulse Rate 104 H 110 H 106 H Respiratory Rate 27 H 24 29 H Blood Pressure Blood Pressure [Le ft Arm] Pulse Oximetry 93 L 87 L Oxygen Delivery Me thod Oxygen Delivery Fl ow Rate Fraction of Inspir ed Oxygen 09/24/22 18:01 09/24/22 18:10 09/24/22 18:20 Temperature Pulse Rate 110 H 107 H 110 H Respiratory Rate 20 25 H 39 H Blood Pressure Blood Pressure [Le ft Arm] Pulse Oximetry 88 L 91 L Oxygen Delivery Me thod Oxygen Delivery Fl ow Rate Fraction of Inspir ed Oxygen 09/24/22 18:30 09/24/22 18:40 09/24/22 18:50 Temperature Pulse Rate 99 H 103 H 96 H Respiratory Rate 22 27 H 30 H Blood Pressure Blood Pressure [Le ft Arm] Pulse Oximetry 94 L 92 L 94 L Oxygen Delivery Me thod Oxygen Delivery Fl ow Rate Fraction of Inspir ed Oxygen 09/24/22 19:00 09/24/22 19:10 09/24/22 19:20 Temperature Pulse Rate 97 H 78 Respiratory Rate 28 H 20 Blood Pressure Blood Pressure [Le ft Arm] Pulse Oximetry 92 L 93 L 97 Oxygen Delivery Me thod Oxygen Delivery Fl ow Rate Fraction of Inspir ed Oxygen 09/24/22 19:30 09/24/22 19:40 09/24/22 19:44 Temperature 97.2 F L Pulse Rate 95 H 92 H 105 H Respiratory Rate 32 H 29 H 27 H Blood Pressure 161/77 H Blood Pressure [Le ft Arm] Pulse Oximetry 95 94 L 91 L Oxygen Delivery Me thod BIPAP Oxygen Delivery Fl ow Rate 0 Fraction of Inspir ed Oxygen 50 09/24/22 19:44 09/24/22 19:44 09/24/22 21:01 Temperature Pulse Rate 97 H 92 H 87 Respiratory Rate 32 H 23 25 H Blood Pressure 161/77 H 162/80 H Blood Pressure [Le ft Arm] Pulse Oximetry 93 L 92 L 96 Oxygen Delivery Me thod BIPAP Oxygen Delivery Fl ow Rate Fraction of Inspir ed Oxygen 50 09/24/22 20:00 09/24/22 23:26 09/24/22 23:26 Temperature Pulse Rate 108 H 114 H 110 H Respiratory Rate 32 H Blood Pressure Blood Pressure [Le ft Arm] Pulse Oximetry 92 L 92 L 92 L Oxygen Delivery Me thod BIPAP Oxygen Delivery Fl ow Rate Fraction of Inspir ed Oxygen 50 50 09/24/22 21:01 09/24/22 22:02 09/24/22 23:10 Temperature 98.0 F Pulse Rate 81 112 H 105 H Respiratory Rate 24 33 H 24 Blood Pressure 162/80 H 132/75 H 126/83 H Blood Pressure [Le ft Arm] Pulse Oximetry 97 91 L 98 Oxygen Delivery Me thod BIPAP BIPAP BIPAP Oxygen Delivery Fl ow Rate Fraction of Inspir ed Oxygen 50 50 09/25/22 00:15 09/25/22 00:15 09/25/22 02:08 Temperature Pulse Rate 98 H 115 H Respiratory Rate 22 Blood Pressure Blood Pressure [Le ft Arm] Pulse Oximetry 97 Oxygen Delivery Me thod Oxygen Delivery Fl ow Rate Fraction of Inspir ed Oxygen 09/24/22 23:10 09/25/22 02:19 09/25/22 04:37 Temperature Pulse Rate 117 H 117 H 100 H Respiratory Rate 31 H 28 H Blood Pressure 126/83 H Blood Pressure [Le ft Arm] Pulse Oximetry 93 L 94 L 97 Oxygen Delivery Me thod Oxygen Delivery Fl ow Rate Fraction of Inspir ed Oxygen 50 09/25/22 04:46 09/25/22 02:19 09/25/22 04:04 Temperature Pulse Rate 116 H 103 H Respiratory Rate 22 32 H 25 H Blood Pressure 163/80 H 170/77 H Blood Pressure [Le ft Arm] Pulse Oximetry 94 L 97 Oxygen Delivery Me thod Oxygen Delivery Fl ow Rate Fraction of Inspir ed Oxygen 09/25/22 04:00 09/25/22 04:04 09/25/22 06:19 Temperature Pulse Rate 112 H 99 H 94 H Respiratory Rate 19 Blood Pressure 170/77 H Blood Pressure [Le ft Arm] Pulse Oximetry 93 L 98 Oxygen Delivery Me thod BIPAP Oxygen Delivery Fl ow Rate Fraction of Inspir ed Oxygen 50 09/25/22 07:34 09/25/22 07:09 09/25/22 07:09 Temperature Pulse Rate 107 H Respiratory Rate 24 Blood Pressure Blood Pressure [Le ft Arm] Pulse Oximetry 96 96 Oxygen Delivery Me thod BIPAP Oxygen Delivery Fl ow Rate Fraction of Inspir ed Oxygen 50 50 09/25/22 04:04 09/25/22 07:32 09/25/22 07:32 Temperature Pulse Rate 110 H 93 H 74 Respiratory Rate 25 H 27 H 23 Blood Pressure 170/77 H 149/106 H 149/106 H Blood Pressure [Le ft Arm] Pulse Oximetry 96 98 Oxygen Delivery Me thod Oxygen Delivery Fl ow Rate Fraction of Inspir ed Oxygen 09/25/22 07:32 09/25/22 11:16 09/25/22 11:18 Temperature Pulse Rate 90 88 91 H Respiratory Rate 29 H 20 24 Blood Pressure 149/106 H 144/74 H 152/68 H Blood Pressure [Le ft Arm] Pulse Oximetry 98 98 Oxygen Delivery Me thod Oxygen Delivery Fl ow Rate Fraction of Inspir ed Oxygen 09/25/22 11:20 09/25/22 11:23 09/25/22 11:25 Temperature Pulse Rate 90 99 H 101 H Respiratory Rate 21 16 18 Blood Pressure 156/69 H 127/65 H 125/72 H Blood Pressure [Le ft Arm] Pulse Oximetry 98 92 L 94 L Oxygen Delivery Me thod Oxygen Delivery Fl ow Rate Fraction of Inspir ed Oxygen 09/25/22 11:28 09/25/22 11:30 09/25/22 11:33 Temperature Pulse Rate 91 H 89 82 Respiratory Rate 19 13 21 Blood Pressure 106/53 L 107/63 93/61 Blood Pressure [Le ft Arm] Pulse Oximetry 95 97 Oxygen Delivery Me thod Oxygen Delivery Fl ow Rate Fraction of Inspir ed Oxygen 09/25/22 11:35 09/25/22 11:37 09/25/22 11:40 Temperature Pulse Rate 85 84 86 Respiratory Rate 13 13 Blood Pressure 82/41 L 93/53 L 99/43 L Blood Pressure [Le ft Arm] Pulse Oximetry 95 93 L 91 L Oxygen Delivery Me thod Oxygen Delivery Fl ow Rate Fraction of Inspir ed Oxygen 09/25/22 11:43 09/25/22 11:45 09/25/22 11:48 Temperature Pulse Rate 84 81 84 Respiratory Rate Blood Pressure 105/46 L 108/52 L 101/43 L Blood Pressure [Le ft Arm] Pulse Oximetry 92 L 91 L 96 Oxygen Delivery Me thod Oxygen Delivery Fl ow Rate Fraction of Inspir ed Oxygen 09/25/22 11:50 09/25/22 11:53 09/25/22 11:55 Temperature Pulse Rate 85 83 85 Respiratory Rate Blood Pressure 102/60 109/75 110/65 Blood Pressure [Le ft Arm] Pulse Oximetry 97 92 L 89 L Oxygen Delivery Me thod Oxygen Delivery Fl ow Rate Fraction of Inspir ed Oxygen 09/25/22 12:00 09/25/22 12:05 09/25/22 12:51 Temperature Pulse Rate 81 83 Respiratory Rate 24 Blood Pressure 101/59 L Blood Pressure [Le ft Arm] Pulse Oximetry 91 L 92 L Oxygen Delivery Me thod Oxygen Delivery Fl ow Rate Fraction of Inspir ed Oxygen Progress Note: Objective Labs Labs: Short CBC 09/25/22 Range/Units 04:00 WBC 10.0 (4.0-11.0) 10^3/uL Hgb 14.1 (12.0-16.0) g/dL Hct 45.3 (36.0-48.0) % Plt Count 227 (150-450) 10^3/uL BMP 09/25/22 04:00 Sodium 141 Potassium 4.6 Chloride 101 Carbon Dioxide 34.8 H BUN 23.0 H Creatinine 0.76 Glucose 175 H Calcium 9.4 Liver Function 09/25/22 Range/Units 04:00 Total Bilirubin 0.2 (0.2-1.0) mg/dL AST 18 (15-37) U/L ALT 29 (14-59) U/L Albumin 2.7 L (3.4-5.0) g/dL ABG Attestation: I personally reviewed and interpreted this ABG as follows: Interpretation: Severe respiratory acidosis Progress Note: A&P Assessment and Plan (1) Acute exacerbation of bronchiectasis: (2) Acute respiratory failure with hypoxia: (3) COPD with exacerbation: (4) Hypertension, essential: (5) Hypothyroidism (acquired): (6) Acute respiratory acidosis: (7) Haemophilus influenzae infection: Plan #1 acute hypoxic respiratory failure secondary to acute exacerbation of chronic obstructive pulmonary disease and H.flu pneumonia #2 H. flu pneumonia #3 Acute respiratory acidosis, possible ARDS ---chest x-ray showed no acute processes on admission, normal white blood cell count, normal normal viral panel. Patient is placed on IV steroids, scheduled DuoNeb's, Vapotherm and Pep therapy. Currently on BIPAP for hypoxia. consult pulmonary, Bronch 09/23/22, moved to ICU do to decompensation status; ABG's showed worsening resp acidosis with ARDS. Intubation today and pulm managing vent settings. Rocephin and addition of Levaquin IV today. #2 hypertension continue home losartan-PRN hydralazine while on vent #3 hypothyroidism continue home levothyroxine Patient is a full code patient will be placed on Lovenox for deep vein thrombosis prophylaxis Patient is inpatient status, now ICU and is expected to stay more than 2-3 days Fall Risk Details Traylor Fall Scale Risk Level: Moderate Fall Risk Current Medications: Current Medications Albuterol/Ipratropium (Ipratropium/Albuterol Sulfate 3 Ml Ampul.Neb) 3 ml INH Q4H [facility] Last Admin: 09/25/22 12:04 Dose: 3 ml Aspirin (Aspirin 81 Mg Tablet.) 81 mg PO QD [facility] Last Admin: 09/25/22 08:50 Dose: 81 mg Budesonide (Budesonide 0.5 Mg/2 Ml Ampule Neb) 0.5 mg IH BID@1100,2300 [facility] Last Admin: 09/25/22 12:04 Dose: 0.5 mg Enoxaparin Sodium (Enoxaparin Sodium 40 Mg/0.4 Ml Syringe) 40 mg SUBQ QD@0800 [facility] Last Admin: 09/25/22 08:49 Dose: 40 mg Guaifenesin (Guaifenesin 200 Mg/Dextromethorphan 20 Mg 10 Ml Syrup) 10 ml PO Q6H PRN PRN Reason: Cough Hydroxyzine Pamoate (Hydroxyzine Pamoate 25 Mg Capsule) 25 mg PO QID PRN PRN Reason: Anxiety Last Admin: 09/24/22 02:15 Dose: 25 mg Ceftriaxone Sodium 1 mg/ (Sodium Chloride) 50 mls @ 100 mls/hr IV Q24H [facility] Last Infusion: 09/24/22 18:55 Dose: Infused Lactated Ringer's (Lactated Ringers) 1,000 mls @ 50 mls/hr IV .Q20H [facility] Last Admin: 09/24/22 18:27 Dose: 50 mls/hr Levofloxacin/Dextrose (Levaquin 500 Mg/100 Ml-D5w) 500 mg in 100 mls @ 100 mls/hr IV Q24H [facility] Last Admin: 09/25/22 12:14 Dose: 100 ml/hr, 100 mls/hr Propofol (Diprivan) 100 mls @ 2.373 mls/hr IV Q24H [facility] Last Infusion: 09/25/22 12:35 Dose: 50 mcg/kg/min, 23.73 mls/hr Levothyroxine Sodium (Levothyroxine Sodium 112 Mcg Tablet) 112 mcg PO QD@0630 [facility] Last Admin: 09/25/22 08:49 Dose: 112 mcg Losartan Potassium (Losartan Potassium 50 Mg Tablet) 100 mg PO QAM [facility] Last Admin: 09/25/22 08:52 Dose: 100 mg Methylprednisolone Sodium Succinate (Methylprednisolone Sod Succ Pf 40 Mg/Ml Vial) 40 mg IVP Q6H [facility] Last Admin: 09/25/22 12:49 Dose: 40 mg Nicotine (Nicotine 21 Mg Patch.Td24) 21 each TD QD PRN PRN Reason: NICOTINE WITHDRAWAL Ondansetron HCl (Ondansetron Pf 4 Mg/2 Ml Vial) 4 mg IV Q6H PRN PRN Reason: Nausea And Vomiting Polyethylene Glycol (Polyethylene Glycol 3350 17 Gm Powder Packet) 17 gm PO QD PRN PRN Reason: Constipation Last Admin: 09/24/22 08:10 Dose: 17 gm Sodium Chloride (0.9 % Sodium Chloride 10 Ml Syringe - Saline Flush) 10 ml IV Q15M PRN PRN Reason: SALINE FLUSH Sodium Chloride (Sodium Chloride 0.9% Inhalation 3 Ml Neb) 1 ml IH TID@0900,1500,2300 [facility] Time Spent With Patient Time: Total time spent is greater than 50% in coordination of care (as documented) at patient's floor/unit and/or counseling patient: Time with patient: 25 - 35 minutes
--- NOTE | 2022-09-25 13:49 | SWNOTE1 ---
Pt was intubated, SW to re-assess needs Wednesday (09/28/22).
[2022-09-25] MEDS: MIDAZOLAM HCL 5 MG/ML VIAL IV (14:10)
[2022-09-25] MEDS: ETOMIDATE 20 MG/10 ML VIAL 10 MG IV (14:10)
[2022-09-25 14:41] LABS: Allen Test POSITIVE (POSITIVE); Base Excess ABG 9.7 mmol/L (-2.0-2.0); Fractionated Inspired Oxygen 50 %; HCO3 ABG 36.6 mmol/L (22.0-26.0); O2 Mode VENTILATOR; Oxygen Saturation ABG 96.1 %; PO2 ABG 84.2 mmHg (80.0-100.0); Puncture Site LR
[2022-09-25 14:42] LABS: Rate 14; Tidal Volume 500; Vent Mode ACVC
[2022-09-25 14:43] LABS: ABG PCO2 79.9 mmHg (35.0-45.0)
[2022-09-25] MEDS: PANTOPRAZOLE SODIUM 40 MG VIAL IV (15:06)
--- NOTE | 2022-09-25 15:15 | RESP.RT ---
RR increased from 14 to 20, Ti decreased from 1.0 to 0.8
[2022-09-25] MEDS: LACTATED RINGER'S SOLUTION 1,000 ML 50 ML IV (15:17)
[2022-09-25] MEDS: PROPOFOL 100 ML 23.73 MG IV ×3 (15:19→23:22)
[2022-09-25 17:20] LABS: Allen Test POSITIVE (POSITIVE); Base Excess ABG 10.4 mmol/L (-2.0-2.0); HCO3 ABG 36.1 mmol/L (22.0-26.0); Oxygen Saturation ABG 96.5 %; PO2 ABG 77.2 mmHg (80.0-100.0); pH ABG 7.346 (7.350-7.450)
[2022-09-25 17:21] LABS: Minute Volume 9.6; O2 Mode VENTILATOR; Puncture Site RR; Rate 20; Tidal Volume 500; Vent Mode AC
[2022-09-25] MEDS: CEFTRIAXONE 1 MG in 0.9 % SODIUM CHLORIDE 50 ML 100 MG IV (17:38)
--- NOTE | 2022-09-25 19:29 | PC.NURSE ---
pt is sedated and unable to arouse to check movement
--- NOTE | 2022-09-25 19:37 | PC.NURSE ---
pt is sedation and intubated
--- NOTE | 2022-09-25 23:35 | PC.NURSE ---
pt is sedated and unable to arouse for neuro assessment. she does move her head back and forth on her own as well as wiggle her feet.
[2022-09-26] VITALS (66 sets, daily range): BP systolic 117–157; BP diastolic 52–72; PULSE 81–108; RESP 20–24; TEMP 37.1–37.8; O2SAT 91–97
[2022-09-26] MEDS: METHYLPREDNISOLONE SOD SUCC PF 40 MG/ML VIAL IVP ×5 (02:49→23:19)
[2022-09-26] MEDS: PROPOFOL 100 ML 23.73 MG IV ×3 (02:52→11:08)
[2022-09-26] MEDS: IPRATROPIUM/ALBUTEROL SULFATE 3 ML AMPUL.NEB INH ×2 (03:54→07:45)
[2022-09-26 07:25] LABS: Hematocrit 42.5 % (36.0-48.0); Hemoglobin 13.5 g/dL (12.0-16.0); Mean Corpuscular HGB Conc 31.8 g/dL (29.9-35.2); Mean Corpuscular Hemoglobin 31.3 pg (26.7-34.0); Mean Corpuscular Volume 98.4 fL (81.0-99.0); Mean Platelet Volume 9.6 fL (9.5-13.5); Platelet Count 227 10^3/uL (150-450); Red Blood Count 4.32 10^6/uL (4.20-5.40); Red Cell Distribution Width 13.6 % (11.0-15.0); White Blood Count 9.9 10^3/uL (4.0-11.0)
[2022-09-26 07:38] LABS: Anion Gap 7.1; BUN Creatinine Ratio 38.8; Calcium 9.7 mg/dL (8.5-10.1); Carbon Dioxide 36.4 mmol/L (21.0-32.0); Chloride 102 mmol/L (98-107); Estimated GFR (African America >60 (>=60); Estimated GFR (Non-African Ame >60 (>=60); Glucose 199 mg/dL (74-106); Potassium 4.5 mmol/L (3.5-5.1); Sodium 141 mmol/L (136-145)
[2022-09-26 07:45] LABS: Anisocytosis 1+
[2022-09-26] MEDS: SODIUM CHLORIDE 0.9% INHALATION 3 ML NEB 1 ML IH (07:47)
[2022-09-26] MEDS: ENOXAPARIN SODIUM 40 MG/0.4 ML SYRINGE SUBQ (08:04)
[2022-09-26] MEDS: LOSARTAN POTASSIUM 50 MG TABLET 100 MG PO (08:04)
[2022-09-26] MEDS: ASPIRIN 81 MG TABLET.DR PO (08:06)
[2022-09-26 08:12] LABS: pH ABG 7.382 (7.350-7.450)
[2022-09-26 08:13] LABS: Base Excess ABG 12.8 mmol/L (-2.0-2.0); HCO3 ABG 37.9 mmol/L (22.0-26.0); Oxygen Saturation ABG 97.5 %; PO2 ABG 89.4 mmHg (80.0-100.0)
[2022-09-26 08:14] LABS: O2 Mode VENT
[2022-09-26 08:15] LABS: Rate 20
[2022-09-26 08:16] LABS: Fractionated Inspired Oxygen 50 %; Puncture Site LR; Tidal Volume 500
[2022-09-26 08:17] LABS: Minute Volume 9.9
[2022-09-26 08:18] LABS: ABG PCO2 63.9 mmHg (35.0-45.0)
--- NOTE | 2022-09-26 09:19 | PM.PN ---
Progress Note: Subjective Subjective Interval history: Patient is sedated on ventilator, appears comfortable Exam Narrative Exam Narrative: Sedated Constitutional Vital Signs - 24 hr 09/25/22 11:16 09/25/22 11:18 09/25/22 11:20 Temperature Pulse Rate 88 91 H 90 Respiratory Rate 20 24 21 Blood Pressure 144/74 H 152/68 H 156/69 H Pulse Oximetry 98 98 98 Oxygen Delivery Method Fraction of Inspired Oxygen 09/25/22 11:23 09/25/22 11:25 09/25/22 11:28 Temperature Pulse Rate 99 H 101 H 91 H Respiratory Rate 16 18 19 Blood Pressure 127/65 H 125/72 H 106/53 L Pulse Oximetry 92 L 94 L 95 Oxygen Delivery Method Fraction of Inspired Oxygen 09/25/22 11:30 09/25/22 11:33 09/25/22 11:35 Temperature Pulse Rate 89 82 85 Respiratory Rate 13 21 13 Blood Pressure 107/63 93/61 82/41 L Pulse Oximetry 97 95 Oxygen Delivery Method Fraction of Inspired Oxygen 09/25/22 11:37 09/25/22 11:40 09/25/22 11:43 Temperature Pulse Rate 84 86 84 Respiratory Rate 13 Blood Pressure 93/53 L 99/43 L 105/46 L Pulse Oximetry 93 L 91 L 92 L Oxygen Delivery Method Fraction of Inspired Oxygen 09/25/22 11:45 09/25/22 11:48 09/25/22 11:50 Temperature Pulse Rate 81 84 85 Respiratory Rate Blood Pressure 108/52 L 101/43 L 102/60 Pulse Oximetry 91 L 96 97 Oxygen Delivery Method Fraction of Inspired Oxygen 09/25/22 11:53 09/25/22 11:55 09/25/22 12:00 Temperature Pulse Rate 83 85 81 Respiratory Rate Blood Pressure 109/75 110/65 101/59 L Pulse Oximetry 92 L 89 L 91 L Oxygen Delivery Method Fraction of Inspired Oxygen 09/25/22 12:05 09/25/22 12:51 09/25/22 11:20 Temperature Pulse Rate 83 81 Respiratory Rate 24 17 Blood Pressure Pulse Oximetry 92 L 91 L Oxygen Delivery Method Fraction of Inspired Oxygen 50 09/25/22 14:40 09/25/22 15:08 09/25/22 15:21 Temperature Pulse Rate 101 H 97 H Respiratory Rate 15 20 20 Blood Pressure Pulse Oximetry 92 L 93 L Oxygen Delivery Method Fraction of Inspired Oxygen 50 50 09/25/22 12:00 09/25/22 12:16 09/25/22 12:30 Temperature Pulse Rate 105 H 108 H 105 H Respiratory Rate Blood Pressure 101/59 L 122/57 H 125/54 H Pulse Oximetry 90 L 90 L 90 L Oxygen Delivery Method Fraction of Inspired Oxygen 09/25/22 12:45 09/25/22 13:00 09/25/22 13:10 Temperature Pulse Rate 109 H 108 H 105 H Respiratory Rate Blood Pressure 123/53 H 116/50 L 120/49 H Pulse Oximetry 91 L 92 L 92 L Oxygen Delivery Method Fraction of Inspired Oxygen 09/25/22 13:30 09/25/22 14:00 09/25/22 14:30 Temperature Pulse Rate 103 H 98 H 93 H Respiratory Rate Blood Pressure 107/46 L 115/52 L 99/40 L Pulse Oximetry 92 L 93 L 94 L Oxygen Delivery Method Fraction of Inspired Oxygen 09/25/22 15:00 09/25/22 15:00 09/25/22 15:30 Temperature Pulse Rate 90 87 93 H Respiratory Rate Blood Pressure 103/47 L 103/47 L 123/54 H Pulse Oximetry 100 100 93 L Oxygen Delivery Method Fraction of Inspired Oxygen 09/25/22 16:00 09/25/22 16:30 09/25/22 17:00 Temperature Pulse Rate 93 H 90 90 Respiratory Rate Blood Pressure 95/44 L 104/49 L 106/49 L Pulse Oximetry 93 L 94 L 94 L Oxygen Delivery Method Fraction of Inspired Oxygen 09/25/22 17:30 09/25/22 19:47 09/25/22 19:47 Temperature Pulse Rate 89 90 Respiratory Rate Blood Pressure 114/53 L Pulse Oximetry 95 94 L 94 L Oxygen Delivery Method Fraction of Inspired Oxygen 50 09/25/22 17:30 09/25/22 18:00 09/25/22 18:30 Temperature Pulse Rate 93 H 88 90 Respiratory Rate Blood Pressure 114/53 L 118/59 L 113/53 L Pulse Oximetry 96 95 94 L Oxygen Delivery Method Fraction of Inspired Oxygen 09/25/22 19:00 09/25/22 19:00 09/25/22 19:30 Temperature Pulse Rate 89 87 85 Respiratory Rate Blood Pressure 121/53 H 121/53 H 110/51 L Pulse Oximetry 94 L 93 L 94 L Oxygen Delivery Method Fraction of Inspired Oxygen 09/25/22 19:30 09/25/22 20:00 09/25/22 20:30 Temperature Pulse Rate 101 H 107 H 107 H Respiratory Rate Blood Pressure 110/51 L 113/51 L 108/50 L Pulse Oximetry 93 L 94 L 94 L Oxygen Delivery Method Fraction of Inspired Oxygen 09/25/22 19:37 09/25/22 19:37 09/25/22 20:30 Temperature Pulse Rate 86 86 105 H Respiratory Rate 20 20 Blood Pressure 108/50 L Pulse Oximetry 94 L 94 L 93 L Oxygen Delivery Method Mechanical Ventilator Fraction of Inspired Oxygen 50 50 09/25/22 21:00 09/25/22 21:00 09/25/22 21:30 Temperature Pulse Rate 105 H 104 H 103 H Respiratory Rate Blood Pressure 106/46 L 106/46 L 108/51 L Pulse Oximetry 94 L 95 95 Oxygen Delivery Method Fraction of Inspired Oxygen 09/25/22 23:27 09/25/22 21:30 09/25/22 22:00 Temperature Pulse Rate 115 H 99 H 96 H Respiratory Rate Blood Pressure 108/51 L 101/50 L Pulse Oximetry 95 94 L 95 Oxygen Delivery Method Fraction of Inspired Oxygen 09/25/22 22:00 09/25/22 22:30 09/25/22 23:00 Temperature Pulse Rate 95 H 108 H 116 H Respiratory Rate Blood Pressure 101/50 L 103/50 L 114/47 L Pulse Oximetry 95 94 L 93 L Oxygen Delivery Method Fraction of Inspired Oxygen 09/25/22 23:30 09/25/22 22:35 09/25/22 22:35 Temperature Pulse Rate 116 H 95 H 95 H Respiratory Rate 20 Blood Pressure 131/58 H Pulse Oximetry 93 L 95 95 Oxygen Delivery Method Mechanical Ventilator Fraction of Inspired Oxygen 50 50 09/25/22 23:30 09/26/22 00:00 09/26/22 00:00 Temperature Pulse Rate 110 H 97 H 102 H Respiratory Rate Blood Pressure 131/58 H 128/62 H 128/62 H Pulse Oximetry 93 L 92 L 92 L Oxygen Delivery Method Fraction of Inspired Oxygen 09/26/22 00:30 09/26/22 01:00 09/26/22 02:08 Temperature Pulse Rate 91 H 87 85 Respiratory Rate Blood Pressure 117/56 L 120/55 H Pulse Oximetry 92 L 94 L 97 Oxygen Delivery Method Fraction of Inspired Oxygen 09/26/22 01:00 09/26/22 01:30 09/26/22 02:00 Temperature Pulse Rate 86 85 84 Respiratory Rate Blood Pressure 120/55 H 117/55 L 128/60 H Pulse Oximetry 94 L 94 L 94 L Oxygen Delivery Method Fraction of Inspired Oxygen 09/26/22 02:00 09/26/22 02:30 09/26/22 03:16 Temperature Pulse Rate 84 85 84 Respiratory Rate Blood Pressure 128/60 H 132/59 H Pulse Oximetry 94 L 94 L 94 L Oxygen Delivery Method Fraction of Inspired Oxygen 09/26/22 03:54 09/26/22 03:54 09/26/22 02:30 Temperature Pulse Rate 81 81 85 Respiratory Rate 20 Blood Pressure 132/59 H Pulse Oximetry 93 L 93 L 94 L Oxygen Delivery Method Mechanical Ventilator Fraction of Inspired Oxygen 50 50 09/26/22 03:00 09/26/22 03:30 09/26/22 04:00 Temperature Pulse Rate 85 83 85 Respiratory Rate Blood Pressure 129/58 H 138/64 H 131/56 H Pulse Oximetry 93 L 91 L 94 L Oxygen Delivery Method Fraction of Inspired Oxygen 09/26/22 04:00 09/26/22 04:30 09/26/22 04:30 Temperature Pulse Rate 88 101 H 96 H Respiratory Rate Blood Pressure 131/56 H 141/59 H 141/59 H Pulse Oximetry 93 L 97 95 Oxygen Delivery Method Fraction of Inspired Oxygen 09/26/22 05:00 09/26/22 05:00 09/26/22 05:00 Temperature Pulse Rate 97 H 97 H 94 H Respiratory Rate Blood Pressure 149/66 H 149/66 H 149/66 H Pulse Oximetry 95 95 Oxygen Delivery Method Fraction of Inspired Oxygen 09/26/22 05:30 09/26/22 06:00 09/26/22 07:18 Temperature 98.9 F Pulse Rate 89 89 Respiratory Rate Blood Pressure 136/63 H 142/63 H Pulse Oximetry 94 L 94 L Oxygen Delivery Method Fraction of Inspired Oxygen 09/26/22 06:00 09/26/22 06:30 09/26/22 07:00 Temperature Pulse Rate 90 87 86 Respiratory Rate Blood Pressure 142/63 H 152/70 H 150/66 H Pulse Oximetry 93 L 93 L 94 L Oxygen Delivery Method Mechanical Ventilator Fraction of Inspired Oxygen 50 09/26/22 07:49 Temperature Pulse Rate 85 Respiratory Rate 21 Blood Pressure Pulse Oximetry 94 L Oxygen Delivery Method Fraction of Inspired Oxygen 50 HENMT Common normals: normocephalic and head/scalp atraumatic Head and scalp: normal to inspection Mouth: oral and palatal mucosa normal and other (ET tube in place) Respiratory Common normals: no retractions and no use of accessory muscles Effort & inspection: not able to speak in complete sentences Auscultation: rhonchi and wheezes Cardio Common normals: no JVD Rate: regular rate Rhythm: regular rhythm GI Common normals: Normal to inspection, nondistended, normoactive bowel sounds present Bladder/kidney exam: catheter in place Neuro Sensorium/orientation: obtunded Speech: other Progress Note: Objective Labs Labs: Short CBC 09/26/22 Range/Units 07:13 WBC 9.9 (4.0-11.0) 10^3/uL Hgb 13.5 (12.0-16.0) g/dL Hct 42.5 (36.0-48.0) % Plt Count 227 (150-450) 10^3/uL BMP 09/26/22 07:13 Sodium 141 Potassium 4.5 Chloride 102 Carbon Dioxide 36.4 H BUN 33.0 H Creatinine 0.85 Glucose 199 H Calcium 9.7 Progress Note: A&P Assessment and Plan (1) Acute exacerbation of bronchiectasis: (2) Acute respiratory failure with hypoxia: (3) COPD with exacerbation: (4) Hypertension, essential: (5) Hypothyroidism (acquired): (6) Acute respiratory acidosis: (7) Haemophilus influenzae infection: Plan Acute exacerbation of bronchiectasis With acute hypoxic respiratory failure With acute respiratory acidosis, secondary to haemophilus influenza that ended up with intubation. Ventilator being managed by Dr. Lovelace, Maintain current antibiotics, urine showing possible UTI, will check UA, Plan is to maintain patient on ventilator through the weekend. Hypertension, essential:Continue with medications via NG, will adjust as necessary. Hypothyroidism (acquired): cont with current meds Nutrition-we will start patient on tube feeds and advance as tolerated Hyperglycemia-check insulin sliding scale Patient likely at least 2-3 more days in the hospital. Potentially longer with risk of complications from all of the above Fall Risk Details Traylor Fall Scale Risk Level: High Fall Risk Current Medications: Current Medications Albuterol/Ipratropium (Ipratropium/Albuterol Sulfate 3 Ml Ampul.Neb) 3 ml IH Q4H [facility] Aspirin (Aspirin 81 Mg Tablet.Dr) 81 mg PO QD [facility] Last Admin: 09/26/22 08:06 Dose: 81 mg Budesonide (Budesonide 0.5 Mg/2 Ml Ampule Neb) 0.5 mg IH BID@1100,2300 [facility] Last Admin: 09/25/22 22:34 Dose: 0.5 mg Enoxaparin Sodium (Enoxaparin Sodium 40 Mg/0.4 Ml Syringe) 40 mg SUBQ QD@0800 [facility] Last Admin: 09/26/22 08:04 Dose: 40 mg Guaifenesin (Guaifenesin 200 Mg/Dextromethorphan 20 Mg 10 Ml Syrup) 10 ml PO Q6H PRN PRN Reason: Cough Hydralazine HCl (Hydralazine Hcl 20 Mg/Ml Vial) 10 mg IVP Q4H PRN PRN Reason: Hypertension Hydroxyzine Pamoate (Hydroxyzine Pamoate 25 Mg Capsule) 25 mg PO QID PRN PRN Reason: Anxiety Last Admin: 09/24/22 02:15 Dose: 25 mg Ceftriaxone Sodium 1 mg/ (Sodium Chloride) 50 mls @ 100 mls/hr IV Q24H [facility] Last Infusion: 09/25/22 18:11 Dose: Infused Lactated Ringer's (Lactated Ringers) 1,000 mls @ 50 mls/hr IV .Q20H [facility] Last Admin: 09/25/22 15:17 Dose: 50 mls/hr Levofloxacin/Dextrose (Levaquin 500 Mg/100 Ml-D5w) 500 mg in 100 mls @ 100 mls/hr IV Q24H [facility] Last Infusion: 09/25/22 14:08 Dose: Infused Propofol (Diprivan) 100 mls @ 23.73 mls/hr IV Q4H [facility] Last Admin: 09/26/22 07:05 Dose: 50 mcg/kg/min, 23.73 mls/hr Insulin Aspart (Insulin Aspart 300 Unit/3 Ml Pen) 3 - [address] [facility]; Protocol Levothyroxine Sodium (Levothyroxine Sodium 112 Mcg Tablet) 112 mcg PO QD@0630 [facility] Last Admin: 09/26/22 05:58 Dose: Not Given Losartan Potassium (Losartan Potassium 50 Mg Tablet) 100 mg PO QAM [facility] Last Admin: 09/26/22 08:04 Dose: 100 mg Methylprednisolone Sodium Succinate (Methylprednisolone Sod Succ Pf 40 Mg/Ml Vial) 40 mg IVP Q6H [facility] Last Admin: 09/26/22 05:58 Dose: 40 mg Nicotine (Nicotine 21 Mg Patch.Td24) 21 each TD QD PRN PRN Reason: NICOTINE WITHDRAWAL Ondansetron HCl (Ondansetron Pf 4 Mg/2 Ml Vial) 4 mg IV Q6H PRN PRN Reason: Nausea And Vomiting Pantoprazole Sodium (Pantoprazole Sodium 40 Mg Vial) 40 mg IV Q24H [facility] Last Admin: 09/25/22 15:06 Dose: 40 mg Polyethylene Glycol (Polyethylene Glycol 3350 17 Gm Powder Packet) 17 gm PO QD PRN PRN Reason: Constipation Last Admin: 09/24/22 08:10 Dose: 17 gm Sodium Chloride (0.9 % Sodium Chloride 10 Ml Syringe - Saline Flush) 10 ml IV Q15M PRN PRN Reason: SALINE FLUSH Sodium Chloride (Sodium Chloride 0.9% Inhalation 3 Ml Neb) 1 ml IH TID@0900,1500,2300 [facility] Last Admin: 09/26/22 07:47 Dose: 1 ml Time Spent With Patient Time: Total time spent is greater than 50% in coordination of care (as documented) at patient's floor/unit and/or counseling patient:
[2022-09-26] MEDS: LACTATED RINGER'S SOLUTION 1,000 ML 50 ML IV (09:29)
[2022-09-26] MEDS: ENSURE CLEAR 237 ML LIQUID FEED TUBE (09:29)
--- NOTE | 2022-09-26 10:48 | PM.PLPN ---
Progress Note: A&P Assessment and Plan (1) Acute exacerbation of bronchiectasis: Plan 1.? Acute exacerbation of bronchiectasis.? Still has large amount of secretions. Continue suctioning. Discussed with that she needs to be more compliant with PEP, saline nebs @ home. 2.? Haemophilus influenzae pneumonia.? Beta-lactamase positive.? Cultured from BAL 09/23/2022.? On Rocephin + Levaquin. 3.? Acute hypercapnic respiratory failure.? Failed BiPAP, intubated 09/25/2022. pH improved, but pCO2 currently ~60. No history of chronic CO2 retention. On Propofol. 4.? Acute hypoxic respiratory failure secondary to #1 & #2.? Improved oxygenation, FiO2 50%. SpO2 goal 90-92%. 5.? Acute exacerbation of COPD.? Continue bronchodilators. 6.? Multiple pulmonary nodules.? Stable outpatient. 7.? Tobacco abuse.? Smoking cessation. Patient is critically ill requiring intensive care unit management. Patient remains on ventilator. Anticipate continued need for ventilator at least until 09/28/2022 given continued secretions, bronchospasm. If she is improving at that time, will begin sedation vacation and weaning protocol. Case discussed with RN, RT, and . 35 minutes critical care time. Fall Risk Details Traylor Fall Scale Risk Level: High Fall Risk Current Medications: Current Medications Albuterol/Ipratropium (Ipratropium/Albuterol Sulfate 3 Ml Ampul.Neb) 3 ml IH Q4H [facility] Aspirin (Aspirin 81 Mg Tablet.) 81 mg PO QD [facility] Last Admin: 09/26/22 08:06 Dose: 81 mg Budesonide (Budesonide 0.5 Mg/2 Ml Ampule Neb) 0.5 mg IH BID@1100,2300 [facility] Last Admin: 09/25/22 22:34 Dose: 0.5 mg Enoxaparin Sodium (Enoxaparin Sodium 40 Mg/0.4 Ml Syringe) 40 mg SUBQ QD@0800 [facility] Last Admin: 09/26/22 08:04 Dose: 40 mg Guaifenesin (Guaifenesin 200 Mg/Dextromethorphan 20 Mg 10 Ml Syrup) 10 ml PO Q6H PRN PRN Reason: Cough Hydralazine HCl (Hydralazine Hcl 20 Mg/Ml Vial) 10 mg IVP Q4H PRN PRN Reason: Hypertension Hydroxyzine Pamoate (Hydroxyzine Pamoate 25 Mg Capsule) 25 mg PO QID PRN PRN Reason: Anxiety Last Admin: 09/24/22 02:15 Dose: 25 mg Ceftriaxone Sodium 1 mg/ (Sodium Chloride) 50 mls @ 100 mls/hr IV Q24H [facility] Last Infusion: 09/25/22 18:11 Dose: Infused Lactated Ringer's (Lactated Ringers) 1,000 mls @ 50 mls/hr IV .Q20H [facility] Last Admin: 09/26/22 09:29 Dose: 50 mls/hr Levofloxacin/Dextrose (Levaquin 500 Mg/100 Ml-D5w) 500 mg in 100 mls @ 100 mls/hr IV Q24H [facility] Last Infusion: 09/25/22 14:08 Dose: Infused Propofol (Diprivan) 100 mls @ 23.73 mls/hr IV Q4H [facility] Last Admin: 09/26/22 07:05 Dose: 50 mcg/kg/min, 23.73 mls/hr Insulin Aspart (Insulin Aspart 300 Unit/3 Ml Pen) 3 - 15 unit SUBQ [facility]; Protocol Levothyroxine Sodium (Levothyroxine Sodium 112 Mcg Tablet) 112 mcg PO QD@0630 [facility] Last Admin: 09/26/22 05:58 Dose: Not Given Losartan Potassium (Losartan Potassium 50 Mg Tablet) 100 mg PO QAM [facility] Last Admin: 09/26/22 08:04 Dose: 100 mg Methylprednisolone Sodium Succinate (Methylprednisolone Sod Succ Pf 40 Mg/Ml Vial) 40 mg IVP Q6H [facility] Last Admin: 09/26/22 05:58 Dose: 40 mg Nicotine (Nicotine 21 Mg Patch.Td24) 21 each TD QD PRN PRN Reason: NICOTINE WITHDRAWAL Ondansetron HCl (Ondansetron Pf 4 Mg/2 Ml Vial) 4 mg IV Q6H PRN PRN Reason: Nausea And Vomiting Pantoprazole Sodium (Pantoprazole Sodium 40 Mg Vial) 40 mg IV Q24H [facility] Last Admin: 09/25/22 15:06 Dose: 40 mg Polyethylene Glycol (Polyethylene Glycol 3350 17 Gm Powder Packet) 17 gm PO QD PRN PRN Reason: Constipation Last Admin: 09/24/22 08:10 Dose: 17 gm Sodium Chloride (0.9 % Sodium Chloride 10 Ml Syringe - Saline Flush) 10 ml IV Q15M PRN PRN Reason: SALINE FLUSH Sodium Chloride (Sodium Chloride 0.9% Inhalation 3 Ml Neb) 1 ml IH TID@0900,1500,2300 [facility] Last Admin: 09/26/22 07:47 Dose: 1 ml Subjective Subjective Interval history: Patient intubated yesterday d/t increased work of breathing and worsening ABG. Bronchoscopy repeated yesterday (09/25/2022) with retained secretions, though not as severe as 09/23/2022. Discussed with RN, RT. Patient remains sedated, on vent. She is much more calm today. Breathing with vent, non-labored...this is the most relaxed I have seen her since her admission. Still suctioning large amount of secretions, mildly bronchospastic. I called patient's , Gene, and updated him. Exam Narrative Exam Narrative: Appears tired, increased work of breathing. Constitutional Vital Signs - 24 hr 09/25/22 11:16 09/25/22 11:18 09/25/22 11:20 Temperature Pulse Rate 88 91 H 90 Respiratory Rate 20 24 21 Blood Pressure 144/74 H 152/68 H 156/69 H Pulse Oximetry 98 98 98 Oxygen Delivery Method Fraction of Inspired Oxygen 09/25/22 11:23 09/25/22 11:25 09/25/22 11:28 Temperature Pulse Rate 99 H 101 H 91 H Respiratory Rate 16 18 19 Blood Pressure 127/65 H 125/72 H 106/53 L Pulse Oximetry 92 L 94 L 95 Oxygen Delivery Method Fraction of Inspired Oxygen 09/25/22 11:30 09/25/22 11:33 09/25/22 11:35 Temperature Pulse Rate 89 82 85 Respiratory Rate 13 21 13 Blood Pressure 107/63 93/61 82/41 L Pulse Oximetry 97 95 Oxygen Delivery Method Fraction of Inspired Oxygen 09/25/22 11:37 09/25/22 11:40 09/25/22 11:43 Temperature Pulse Rate 84 86 84 Respiratory Rate 13 Blood Pressure 93/53 L 99/43 L 105/46 L Pulse Oximetry 93 L 91 L 92 L Oxygen Delivery Method Fraction of Inspired Oxygen 09/25/22 11:45 09/25/22 11:48 09/25/22 11:50 Temperature Pulse Rate 81 84 85 Respiratory Rate Blood Pressure 108/52 L 101/43 L 102/60 Pulse Oximetry 91 L 96 97 Oxygen Delivery Method Fraction of Inspired Oxygen 09/25/22 11:53 09/25/22 11:55 09/25/22 12:00 Temperature Pulse Rate 83 85 81 Respiratory Rate Blood Pressure 109/75 110/65 101/59 L Pulse Oximetry 92 L 89 L 91 L Oxygen Delivery Method Fraction of Inspired Oxygen 09/25/22 12:05 09/25/22 12:51 09/25/22 11:20 Temperature Pulse Rate 83 81 Respiratory Rate 24 17 Blood Pressure Pulse Oximetry 92 L 91 L Oxygen Delivery Method Fraction of Inspired Oxygen 50 09/25/22 14:40 09/25/22 15:08 09/25/22 15:21 Temperature Pulse Rate 101 H 97 H Respiratory Rate 15 20 20 Blood Pressure Pulse Oximetry 92 L 93 L Oxygen Delivery Method Fraction of Inspired Oxygen 50 50 09/25/22 12:00 09/25/22 12:16 09/25/22 12:30 Temperature Pulse Rate 105 H 108 H 105 H Respiratory Rate Blood Pressure 101/59 L 122/57 H 125/54 H Pulse Oximetry 90 L 90 L 90 L Oxygen Delivery Method Fraction of Inspired Oxygen 09/25/22 12:45 09/25/22 13:00 09/25/22 13:10 Temperature Pulse Rate 109 H 108 H 105 H Respiratory Rate Blood Pressure 123/53 H 116/50 L 120/49 H Pulse Oximetry 91 L 92 L 92 L Oxygen Delivery Method Fraction of Inspired Oxygen 09/25/22 13:30 09/25/22 14:00 09/25/22 14:30 Temperature Pulse Rate 103 H 98 H 93 H Respiratory Rate Blood Pressure 107/46 L 115/52 L 99/40 L Pulse Oximetry 92 L 93 L 94 L Oxygen Delivery Method Fraction of Inspired Oxygen 09/25/22 15:00 09/25/22 15:00 09/25/22 15:30 Temperature Pulse Rate 90 87 93 H Respiratory Rate Blood Pressure 103/47 L 103/47 L 123/54 H Pulse Oximetry 100 100 93 L Oxygen Delivery Method Fraction of Inspired Oxygen 09/25/22 16:00 09/25/22 16:30 09/25/22 17:00 Temperature Pulse Rate 93 H 90 90 Respiratory Rate Blood Pressure 95/44 L 104/49 L 106/49 L Pulse Oximetry 93 L 94 L 94 L Oxygen Delivery Method Fraction of Inspired Oxygen 09/25/22 17:30 09/25/22 19:47 09/25/22 19:47 Temperature Pulse Rate 89 90 Respiratory Rate Blood Pressure 114/53 L Pulse Oximetry 95 94 L 94 L Oxygen Delivery Method Fraction of Inspired Oxygen 50 09/25/22 17:30 09/25/22 18:00 09/25/22 18:30 Temperature Pulse Rate 93 H 88 90 Respiratory Rate Blood Pressure 114/53 L 118/59 L 113/53 L Pulse Oximetry 96 95 94 L Oxygen Delivery Method Fraction of Inspired Oxygen 09/25/22 19:00 09/25/22 19:00 09/25/22 19:30 Temperature Pulse Rate 89 87 85 Respiratory Rate Blood Pressure 121/53 H 121/53 H 110/51 L Pulse Oximetry 94 L 93 L 94 L Oxygen Delivery Method Fraction of Inspired Oxygen 09/25/22 19:30 09/25/22 20:00 09/25/22 20:30 Temperature Pulse Rate 101 H 107 H 107 H Respiratory Rate Blood Pressure 110/51 L 113/51 L 108/50 L Pulse Oximetry 93 L 94 L 94 L Oxygen Delivery Method Fraction of Inspired Oxygen 09/25/22 19:37 09/25/22 19:37 09/25/22 20:30 Temperature Pulse Rate 86 86 105 H Respiratory Rate 20 20 Blood Pressure 108/50 L Pulse Oximetry 94 L 94 L 93 L Oxygen Delivery Method Mechanical Ventilator Fraction of Inspired Oxygen 50 50 09/25/22 21:00 09/25/22 21:00 09/25/22 21:30 Temperature Pulse Rate 105 H 104 H 103 H Respiratory Rate Blood Pressure 106/46 L 106/46 L 108/51 L Pulse Oximetry 94 L 95 95 Oxygen Delivery Method Fraction of Inspired Oxygen 09/25/22 23:27 09/25/22 21:30 09/25/22 22:00 Temperature Pulse Rate 115 H 99 H 96 H Respiratory Rate Blood Pressure 108/51 L 101/50 L Pulse Oximetry 95 94 L 95 Oxygen Delivery Method Fraction of Inspired Oxygen 09/25/22 22:00 09/25/22 22:30 09/25/22 23:00 Temperature Pulse Rate 95 H 108 H 116 H Respiratory Rate Blood Pressure 101/50 L 103/50 L 114/47 L Pulse Oximetry 95 94 L 93 L Oxygen Delivery Method Fraction of Inspired Oxygen 09/25/22 23:30 09/25/22 22:35 09/25/22 22:35 Temperature Pulse Rate 116 H 95 H 95 H Respiratory Rate 20 Blood Pressure 131/58 H Pulse Oximetry 93 L 95 95 Oxygen Delivery Method Mechanical Ventilator Fraction of Inspired Oxygen 50 50 09/25/22 23:30 09/26/22 00:00 09/26/22 00:00 Temperature Pulse Rate 110 H 97 H 102 H Respiratory Rate Blood Pressure 131/58 H 128/62 H 128/62 H Pulse Oximetry 93 L 92 L 92 L Oxygen Delivery Method Fraction of Inspired Oxygen 09/26/22 00:30 09/26/22 01:00 09/26/22 02:08 Temperature Pulse Rate 91 H 87 85 Respiratory Rate Blood Pressure 117/56 L 120/55 H Pulse Oximetry 92 L 94 L 97 Oxygen Delivery Method Fraction of Inspired Oxygen 09/26/22 01:00 09/26/22 01:30 09/26/22 02:00 Temperature Pulse Rate 86 85 84 Respiratory Rate Blood Pressure 120/55 H 117/55 L 128/60 H Pulse Oximetry 94 L 94 L 94 L Oxygen Delivery Method Fraction of Inspired Oxygen 09/26/22 02:00 09/26/22 02:30 09/26/22 03:16 Temperature Pulse Rate 84 85 84 Respiratory Rate Blood Pressure 128/60 H 132/59 H Pulse Oximetry 94 L 94 L 94 L Oxygen Delivery Method Fraction of Inspired Oxygen 09/26/22 03:54 09/26/22 03:54 09/26/22 02:30 Temperature Pulse Rate 81 81 85 Respiratory Rate 20 Blood Pressure 132/59 H Pulse Oximetry 93 L 93 L 94 L Oxygen Delivery Method Mechanical Ventilator Fraction of Inspired Oxygen 50 50 09/26/22 03:00 09/26/22 03:30 09/26/22 04:00 Temperature Pulse Rate 85 83 85 Respiratory Rate Blood Pressure 129/58 H 138/64 H 131/56 H Pulse Oximetry 93 L 91 L 94 L Oxygen Delivery Method Fraction of Inspired Oxygen 09/26/22 04:00 09/26/22 04:30 09/26/22 04:30 Temperature Pulse Rate 88 101 H 96 H Respiratory Rate Blood Pressure 131/56 H 141/59 H 141/59 H Pulse Oximetry 93 L 97 95 Oxygen Delivery Method Fraction of Inspired Oxygen 09/26/22 05:00 09/26/22 05:00 09/26/22 05:00 Temperature Pulse Rate 97 H 97 H 94 H Respiratory Rate Blood Pressure 149/66 H 149/66 H 149/66 H Pulse Oximetry 95 95 Oxygen Delivery Method Fraction of Inspired Oxygen 09/26/22 05:30 09/26/22 06:00 09/26/22 07:18 Temperature 98.9 F Pulse Rate 89 89 Respiratory Rate Blood Pressure 136/63 H 142/63 H Pulse Oximetry 94 L 94 L Oxygen Delivery Method Fraction of Inspired Oxygen 09/26/22 06:00 09/26/22 06:30 09/26/22 07:00 Temperature Pulse Rate 90 87 86 Respiratory Rate Blood Pressure 142/63 H 152/70 H 150/66 H Pulse Oximetry 93 L 93 L 94 L Oxygen Delivery Method Mechanical Ventilator Fraction of Inspired Oxygen 50 09/26/22 07:49 Temperature Pulse Rate 85 Respiratory Rate 21 Blood Pressure Pulse Oximetry 94 L Oxygen Delivery Method Fraction of Inspired Oxygen 50 Documenting provider has reviewed patient's vital signs: yes HENMT Teeth and gingiva: other (8.0 ETT, OGT) Other: Wearing BiPAP Chest Other: No abmormalities Respiratory Other: No discordant breathing, mild inpsiratory and expiratory wheezes. Mild rhonchi. Improved from yesterday Cardio Other: RRR GI Other: Soft +BS Other: [place] Extremity Other: Continue restraints for prevention of self-harm. Neuro Other: Intact Psych Other: Alert, but tired Urinary Catheter Management Urinary Catheter Management Urethral: Cath placed during this visit: yes Urethral indwelling: Yes Reason for continuing: measure accurate output Insertion date: 09/25/22 Insertion time: 13:46
[2022-09-26 10:51] LABS: Bilirubin Urine NEGATIVE (NEGATIVE); Blood Urine NEGATIVE (NEGATIVE); Color Urine LT. YELLOW (YELLOW); Glucose Urine UA NEGATIVE (NEGATIVE); Ketones Urine NEGATIVE (NEGATIVE); Leukocyte Esterase Urine SMALL (NEGATIVE); Nitrite Urine NEGATIVE (NEGATIVE); Protein Urine NEGATIVE (NEG/TRACE); Specific Gravity Urine 1.025 (1.005-1.025); Urobilinogen Urine 0.2 EU/dL (0.2-1.0)
[2022-09-26 10:51] LABS: Glucometer 177 mg/dL (74-106)
--- NOTE | 2022-09-26 11:00 | XR_ITS ---
The [address] [address] Patient Name: ERICA CHACON MRN: [id number] date: 1955 Sex: F Assigned Patient Location: ICU Current Patient Location: ICU Accession/Order Number: [id number] Exam Date: 09/26/2022 11:18 Report Date: 09/26/2022 11:36 At the request of: ALIS HEAD Procedure: XR chest 1V EXAM: Chest x-ray HISTORY: . REspiratory failure, on vent . COMPARISON: 09/25/2022 TECHNIQUE: Single view of the chest FINDINGS: Endotracheal tube and NG tube are unchanged. Heart is normal in size. There is been interval improvement in the prominence of the bronchovascular markings bilaterally. There is been improvement in atelectasis and or or early infiltrate in the left lower lobe. IMPRESSION: 1. Lines are unchanged. 2. Interval improvement in the appearance of the chest. Electronically authenticated by: ARIANNA ARCE Date: 09/26/2022 11:36
[2022-09-26] MEDS: LEVOFLOXACIN IN DEXTROSE 5 % 500 MG/100 ML PIGGYBACK 100 MG IV (11:04)
[2022-09-26 11:05] LABS: Clarity Urine CLOUDY (CLEAR)
[2022-09-26] MEDS: INSULIN ASPART 300 UNIT/3 ML PEN SUBQ ×3 (11:05→22:26)
[2022-09-26 11:06] LABS: Bacteria Urine SMALL #/HPF (NONE SEEN); RBC Urine 0-2 #/HPF (0-2); Squamous Epithelial Cell Urine MODERATE #/LPF (NONE/RARE)
[2022-09-26 11:07] LABS: Cast Seen? SEEN #/LPF (NONE SEEN)
[2022-09-26 11:25] LABS: ABG PCO2 60.7 mmHg (35.0-45.0); PO2 ABG 60.2 mmHg (80.0-100.0); pH ABG 7.363 (7.350-7.450)
[2022-09-26 11:26] LABS: Base Excess ABG 9.1 mmol/L (-2.0-2.0); HCO3 ABG 34.5 mmol/L (22.0-26.0); Oxygen Saturation ABG 91.5 %
[2022-09-26] MEDS: IPRATROPIUM/ALBUTEROL SULFATE 3 ML AMPUL.NEB IH ×4 (11:35→23:06)
[2022-09-26] MEDS: BUDESONIDE 0.5 MG/2 ML AMPULE NEB IH ×2 (11:36→23:06)
[2022-09-26] MEDS: PANTOPRAZOLE SODIUM 40 MG VIAL IV (13:08)
[2022-09-26] MEDS: PROPOFOL 1,000 MG/100 ML VIAL 2.373 MG IV (14:22)
[2022-09-26] MEDS: PROPOFOL 1,000 MG/100 ML VIAL 23.73 MG IV ×3 (14:32→22:47)
[2022-09-26] MEDS: SODIUM CHLORIDE 0.9% INHALATION 3 ML NEB IH ×2 (15:29→23:07)
[2022-09-26 15:52] LABS: Glucometer 172 mg/dL (74-106)
[2022-09-26] MEDS: CEFTRIAXONE 1,000 MG in 0.9 % SODIUM CHLORIDE 50 ML 100 MG IV (17:06)
--- NOTE | 2022-09-26 22:14 | PC.NURSE ---
flipped pillows over and repositioned pt onto her back. made sure skin clear of contact with all lines/tubing.
[2022-09-26 22:32] LABS: Glucometer 199 mg/dL (74-106)
[2022-09-27] VITALS (60 sets, daily range): BP systolic 98–151; BP diastolic 52–77; PULSE 77–98; RESP 20–22; TEMP 37.5–37.7; O2SAT 90–96
[2022-09-27] MEDS: PROPOFOL 1,000 MG/100 ML VIAL 23.73 MG IV ×6 (02:58→22:32)
[2022-09-27] MEDS: IPRATROPIUM/ALBUTEROL SULFATE 3 ML AMPUL.NEB IH ×7 (03:52→23:59)
[2022-09-27] MEDS: METHYLPREDNISOLONE SOD SUCC PF 40 MG/ML VIAL IVP ×3 (05:00→17:00)
[2022-09-27] MEDS: LEVOTHYROXINE SODIUM 112 MCG TABLET PO (06:08)
[2022-09-27] MEDS: LACTATED RINGER'S SOLUTION 1,000 ML 50 ML IV (07:08)
[2022-09-27] MEDS: INSULIN ASPART 300 UNIT/3 ML PEN SUBQ ×2 (07:44→11:31)
[2022-09-27] MEDS: ENOXAPARIN SODIUM 40 MG/0.4 ML SYRINGE SUBQ (07:47)
[2022-09-27] MEDS: SODIUM CHLORIDE 0.9% INHALATION 3 ML NEB IH ×3 (08:01→23:59)
[2022-09-27 08:08] LABS: pH ABG 7.358 (7.350-7.450)
[2022-09-27 08:09] LABS: Allen Test POS (POSITIVE); Base Excess ABG 13.2 mmol/L (-2.0-2.0); Fractionated Inspired Oxygen 50 %; HCO3 ABG 38.7 mmol/L (22.0-26.0); O2 Mode VENT; Oxygen Saturation ABG 97.9 %; Puncture Site LEFT RADIAL
[2022-09-27 08:10] LABS: Rate 20; Tidal Volume 500; Vent Mode AC
[2022-09-27 08:38] LABS: Hematocrit 44.7 % (36.0-48.0); Immature Granulocytes Abs Auto 0.44 10^3/uL (0.00-0.03); Immature Granulocytes Pct Auto 3.5 % (0.0-0.5); Lymphocytes Absolute Auto 0.9 10^3/uL (1.2-3.8); Lymphocytes Percent Auto 7.1 % (20.5-60.0); Mean Corpuscular HGB Conc 31.3 g/dL (29.9-35.2); Mean Corpuscular Hemoglobin 30.8 pg (26.7-34.0); Mean Corpuscular Volume 98.5 fL (81.0-99.0); Mean Platelet Volume 9.9 fL (9.5-13.5); Monocytes Absolute Auto 0.5 10^3/uL (0.3-0.8); Monocytes Percent Auto 4.3 % (1.7-12.0); Neutrophils Absolute Auto 10.7 10^3/uL (1.4-6.5); Neutrophils Percent Auto 85.1 % (43.0-75.0); Platelet Count 224 10^3/uL (150-450); Red Blood Count 4.54 10^6/uL (4.20-5.40); Red Cell Distribution Width 13.6 % (11.0-15.0); White Blood Count 12.6 10^3/uL (4.0-11.0)
[2022-09-27 08:52] LABS: Alanine Aminotransferase 40 U/L (14-59); Albumin Globulin Ratio 0.6; Albumin Level 2.4 g/dL (3.4-5.0); Alkaline Phosphatase 63 U/L (46-116); Anion Gap 9.5; Aspartate Amino Transferase 60 U/L (15-37); BUN Creatinine Ratio 32.9; Bilirubin Total 0.2 mg/dL (0.2-1.0); Calcium 9.3 mg/dL (8.5-10.1); Chloride 101 mmol/L (98-107); Estimated GFR (African America >60 (>=60); Estimated GFR (Non-African Ame >60 (>=60); Globulin 4.3 g/dL; Glucose 293 mg/dL (74-106); Potassium 4.5 mmol/L (3.5-5.1); Sodium 142 mmol/L (136-145); Total Protein 6.7 g/dL (6.4-8.2)
--- NOTE | 2022-09-27 10:10 | P.PN_ITS ---
Progress Note: Subjective Subjective Interval history: Patient is sedated on ventilator, appears comfortable Exam Constitutional Vital Signs - 24 hr 09/26/22 11:19 09/26/22 10:30 09/26/22 11:00 Temperature Pulse Rate 90 86 Pulse Rate [Monitor] Respiratory Rate 21 Blood Pressure 133/59 H 122/52 H Pulse Oximetry 95 Oxygen Delivery Method Fraction of Inspired Oxygen 09/26/22 11:30 09/26/22 11:37 09/26/22 11:53 Temperature 98.8 F Pulse Rate 86 84 Pulse Rate [Monitor] Respiratory Rate 20 Blood Pressure 132/62 H Pulse Oximetry 93 L 95 Oxygen Delivery Method Fraction of Inspired Oxygen 50 09/26/22 11:30 09/26/22 12:00 09/26/22 12:30 Temperature Pulse Rate 85 94 H 94 H Pulse Rate [Monitor] Respiratory Rate Blood Pressure 132/62 H 120/56 H 134/65 H Pulse Oximetry 95 94 L 94 L Oxygen Delivery Method Fraction of Inspired Oxygen 09/26/22 13:00 09/26/22 13:30 09/26/22 14:00 Temperature Pulse Rate 90 91 H 91 H Pulse Rate [Monitor] Respiratory Rate Blood Pressure 142/67 H 130/69 H 139/64 H Pulse Oximetry 94 L 94 L 94 L Oxygen Delivery Method Fraction of Inspired Oxygen 09/26/22 14:30 09/26/22 14:44 09/26/22 15:36 Temperature Pulse Rate 87 88 Pulse Rate [Monitor] Respiratory Rate 20 21 Blood Pressure 134/62 H Pulse Oximetry 93 L 94 L Oxygen Delivery Method Fraction of Inspired Oxygen 50 09/26/22 16:28 09/26/22 14:30 09/26/22 15:00 Temperature 99.1 F Pulse Rate 87 88 Pulse Rate [Monitor] Respiratory Rate Blood Pressure 134/62 H 139/66 H Pulse Oximetry 93 L 94 L Oxygen Delivery Method Fraction of Inspired Oxygen 09/26/22 15:30 09/26/22 16:00 09/26/22 16:30 Temperature Pulse Rate 97 H 100 H 103 H Pulse Rate [Monitor] Respiratory Rate Blood Pressure 122/58 H 125/59 H 126/59 H Pulse Oximetry 94 L 94 L 94 L Oxygen Delivery Method Fraction of Inspired Oxygen 09/26/22 17:00 09/26/22 17:30 09/26/22 18:00 Temperature Pulse Rate 104 H 101 H 96 H Pulse Rate [Monitor] Respiratory Rate Blood Pressure 138/67 H 133/66 H 142/66 H Pulse Oximetry 94 L 94 L 94 L Oxygen Delivery Method Fraction of Inspired Oxygen 09/26/22 18:00 09/26/22 18:30 09/26/22 19:00 Temperature Pulse Rate 99 H 91 H 90 Pulse Rate [Monitor] Respiratory Rate Blood Pressure 142/66 H 138/65 H 143/62 H Pulse Oximetry 94 L 95 95 Oxygen Delivery Method Fraction of Inspired Oxygen 09/26/22 19:21 09/26/22 19:22 09/26/22 19:22 Temperature 100.1 F H Pulse Rate 89 Pulse Rate [Monitor] 90 Respiratory Rate Blood Pressure Pulse Oximetry 95 Oxygen Delivery Method Fraction of Inspired Oxygen 09/26/22 19:31 09/26/22 19:31 09/26/22 19:00 Temperature Pulse Rate 89 89 90 Pulse Rate [Monitor] Respiratory Rate 24 24 Blood Pressure 143/62 H Pulse Oximetry 95 95 95 Oxygen Delivery Method Mechanical Ventilator Fraction of Inspired Oxygen 50 50 09/26/22 19:30 09/26/22 19:30 09/26/22 20:00 Temperature Pulse Rate 102 H 103 H 108 H Pulse Rate [Monitor] Respiratory Rate Blood Pressure 150/67 H 150/67 H 154/70 H Pulse Oximetry 95 93 L 95 Oxygen Delivery Method Fraction of Inspired Oxygen 09/26/22 20:30 09/26/22 21:00 09/26/22 21:00 Temperature Pulse Rate 107 H 108 H 108 H Pulse Rate [Monitor] Respiratory Rate Blood Pressure 157/71 H 152/71 H 152/71 H Pulse Oximetry 92 L 94 L 94 L Oxygen Delivery Method Fraction of Inspired Oxygen 09/26/22 21:30 09/26/22 21:30 09/26/22 22:00 Temperature Pulse Rate 106 H 105 H 102 H Pulse Rate [Monitor] Respiratory Rate Blood Pressure 151/70 H 151/70 H 147/69 H Pulse Oximetry 93 L 91 L 92 L Oxygen Delivery Method Fraction of Inspired Oxygen 09/26/22 22:00 09/26/22 22:30 09/26/22 23:08 Temperature Pulse Rate 95 H 96 H Pulse Rate [Monitor] 92 H Respiratory Rate Blood Pressure 147/69 H 127/66 H Pulse Oximetry 92 L 92 L Oxygen Delivery Method Fraction of Inspired Oxygen 09/26/22 23:16 09/26/22 23:06 09/26/22 23:06 Temperature Pulse Rate 92 H 91 H 91 H Pulse Rate [Monitor] Respiratory Rate 23 23 Blood Pressure Pulse Oximetry 92 L 93 L 93 L Oxygen Delivery Method Mechanical Ventilator Fraction of Inspired Oxygen 50 50 09/26/22 22:30 09/26/22 23:00 09/26/22 23:27 Temperature 99.4 F Pulse Rate 94 H 92 H Pulse Rate [Monitor] Respiratory Rate Blood Pressure 127/66 H 137/63 H Pulse Oximetry 93 L 93 L Oxygen Delivery Method Fraction of Inspired Oxygen 09/26/22 23:00 09/26/22 23:30 09/27/22 00:00 Temperature Pulse Rate 97 H 94 H 92 H Pulse Rate [Monitor] Respiratory Rate Blood Pressure 137/63 H 148/72 H 137/66 H Pulse Oximetry 94 L 93 L 93 L Oxygen Delivery Method Fraction of Inspired Oxygen 09/27/22 00:00 09/27/22 00:30 09/27/22 00:30 Temperature Pulse Rate 89 85 84 Pulse Rate [Monitor] Respiratory Rate Blood Pressure 137/66 H 131/61 H 131/61 H Pulse Oximetry 93 L 93 L 93 L Oxygen Delivery Method Fraction of Inspired Oxygen 09/27/22 01:00 09/27/22 01:30 09/27/22 01:30 Temperature Pulse Rate 82 81 80 Pulse Rate [Monitor] Respiratory Rate Blood Pressure 125/58 H 126/62 H 126/62 H Pulse Oximetry 94 L 96 Oxygen Delivery Method Fraction of Inspired Oxygen 09/27/22 02:00 09/27/22 03:16 09/27/22 03:16 Temperature Pulse Rate 81 77 Pulse Rate [Monitor] 77 Respiratory Rate Blood Pressure 141/73 H Pulse Oximetry 94 L 91 L Oxygen Delivery Method Fraction of Inspired Oxygen 09/27/22 02:00 09/27/22 02:30 09/27/22 03:00 Temperature Pulse Rate 80 78 77 Pulse Rate [Monitor] Respiratory Rate Blood Pressure 141/73 H 128/66 H 128/75 H Pulse Oximetry 94 L 94 L 92 L Oxygen Delivery Method Fraction of Inspired Oxygen 09/27/22 03:52 09/27/22 03:00 09/27/22 03:30 Temperature Pulse Rate 96 H 77 77 Pulse Rate [Monitor] Respiratory Rate 20 Blood Pressure 128/75 H 116/63 Pulse Oximetry 92 L 91 L 92 L Oxygen Delivery Method Fraction of Inspired Oxygen 50 09/27/22 04:00 09/27/22 04:00 09/27/22 04:00 Temperature Pulse Rate 78 79 78 Pulse Rate [Monitor] Respiratory Rate Blood Pressure 123/66 H 123/66 H 123/66 H Pulse Oximetry 92 L 92 L 92 L Oxygen Delivery Method Fraction of Inspired Oxygen 09/27/22 04:30 09/27/22 05:00 09/27/22 05:00 Temperature Pulse Rate 79 79 78 Pulse Rate [Monitor] Respiratory Rate Blood Pressure 124/61 H 128/70 H 128/70 H Pulse Oximetry 92 L 92 L 92 L Oxygen Delivery Method Fraction of Inspired Oxygen 09/27/22 05:30 09/27/22 06:00 09/27/22 07:34 Temperature Pulse Rate 79 79 80 Pulse Rate [Monitor] Respiratory Rate 22 Blood Pressure 134/58 H 135/67 H Pulse Oximetry 93 L 93 L 95 Oxygen Delivery Method Fraction of Inspired Oxygen 50 HENMT Common normals: normocephalic Head and scalp: normal to inspection Other: ET tube in place Chest Common normals: inspection of chest normal Respiratory Common normals: no retractions Effort & inspection: audible wheezes; non tachypneic and no respiratory distress Cardio Common normals: no JVD Rate: regular rate Rhythm: regular rhythm Heart sounds: S1 normal Extremity Other: 1+ edema Progress Note: Objective Labs Labs: Short CBC 09/27/22 Range/Units 08:10 WBC 12.6 H (4.0-11.0) 10^3/uL Hgb 14.0 (12.0-16.0) g/dL Hct 44.7 (36.0-48.0) % Plt Count 224 (150-450) 10^3/uL BMP 09/27/22 08:10 Sodium 142 Potassium 4.5 Chloride 101 Carbon Dioxide 36.0 H BUN 28.0 H Creatinine 0.85 Glucose 293 H Calcium 9.3 Liver Function 09/27/22 Range/Units 08:10 Total Bilirubin 0.2 (0.2-1.0) mg/dL AST 60 H (15-37) U/L ALT 40 (14-59) U/L Albumin 2.4 L (3.4-5.0) g/dL Urine 09/26/22 Range/Units 08:20 Urine Color Lt. yellow (YELLOW) Urine Clarity Cloudy A (CLEAR) Urine pH 6.0 (5.0-9.0) Ur Specific [place] 1.025 (1.005-1.025) Urine Protein Negative (NEG/TRACE) mg/dL Urine Glucose (UA) Negative (NEGATIVE) mg/dL Progress Note: A&P Assessment and Plan (1) Acute exacerbation of bronchiectasis: (2) Acute respiratory failure with hypoxia: (3) COPD with exacerbation: (4) Hypertension, essential: (5) Hypothyroidism (acquired): (6) Acute respiratory acidosis: (7) Haemophilus influenzae infection: Plan Acute exacerbation of bronchiectasis With acute hypoxic respiratory failure With acute respiratory acidosis, secondary to haemophilus influenza that ended up with intubation.? Ventilator being managed by Dr. Lovelace, Maintain current Treat ment plan, ABG fairly stable, PCO2 slightly elevated today, evaluate for extubation tomorrow Leukocytosis [id number] fever yesterday, urine abnormal, will change up antibiotics today. Hypertension, essential:Continue with medications via NG, will adjust as necessary. Hypothyroidism (acquired): cont with current meds Nutrition-we will start patient on tube feeds and advance 60 cc an hour, tolerating well so far, consult to dietitian Hyperglycemia-check insulin sliding scale Patient likely at least 2-3 more days in the hospital.? Potentially longer with risk of complications from all of the above Fall Risk Details Traylor Fall Scale Risk Level: High Fall Risk Current Medications: Current Medications Albuterol/Ipratropium (Ipratropium/Albuterol Sulfate 3 Ml Ampul.Neb) 3 ml IH Q4H [facility] Last Admin: 09/27/22 07:26 Dose: 3 ml Aspirin (Aspirin 81 Mg Tablet.) 81 mg PO QD [facility] Last Admin: 09/26/22 08:06 Dose: 81 mg Budesonide (Budesonide 0.5 Mg/2 Ml Ampule Neb) 0.5 mg IH BID@1100,2300 [facility] Last Admin: 09/26/22 23:06 Dose: 0.5 mg Enoxaparin Sodium (Enoxaparin Sodium 40 Mg/0.4 Ml Syringe) 40 mg SUBQ QD@0800 [facility] Last Admin: 09/27/22 07:47 Dose: 40 mg Enteral Nutritional Formula (Ensure Original 237 Ml Liquid) 237 ml FEED TUBE Q4H [facility] Guaifenesin (Guaifenesin 200 Mg/Dextromethorphan 20 Mg 10 Ml Syrup) 10 ml PO Q6H PRN PRN Reason: Cough Hydralazine HCl (Hydralazine Hcl 20 Mg/Ml Vial) 10 mg IVP Q4H PRN PRN Reason: Hypertension Hydroxyzine Pamoate (Hydroxyzine Pamoate 25 Mg Capsule) 25 mg PO QID PRN PRN Reason: Anxiety Last Admin: 09/24/22 02:15 Dose: 25 mg Lactated Ringer's (Lactated Ringers) 1,000 mls @ 50 mls/hr IV .Q20H [facility] Last Admin: 09/27/22 07:08 Dose: 50 mls/hr Levofloxacin/Dextrose (Levaquin 500 Mg/100 Ml-D5w) 500 mg in 100 mls @ 100 mls/hr IV Q24H [facility] Last Infusion: 09/26/22 12:14 Dose: Infused Propofol (Diprivan) 1,000 mg in 100 mls @ 23.73 mls/hr IV TITR [facility]; Protocol Last Admin: 09/27/22 07:06 Dose: 50 mcg/kg/min, 23.73 mls/hr Ceftriaxone Sodium 1,000 mg/ (Sodium Chloride) 50 mls @ 100 mls/hr IV Q24H [facility] Last Infusion: 09/26/22 17:52 Dose: Infused Insulin Aspart (Insulin Aspart 300 Unit/3 Ml Pen) 3 - 15 unit SUBQ ACHS [facility]; Protocol Last Admin: 09/27/22 07:44 Dose: 4 unit Levothyroxine Sodium (Levothyroxine Sodium 112 Mcg Tablet) 112 mcg PO QD@0630 [facility] Last Admin: 09/27/22 06:08 Dose: 112 mcg Losartan Potassium (Losartan Potassium 50 Mg Tablet) 100 mg PO QAM [facility] Last Admin: 09/26/22 08:04 Dose: 100 mg Methylprednisolone Sodium Succinate (Methylprednisolone Sod Succ Pf 40 Mg/Ml Vial) 40 mg IVP Q6H [facility] Last Admin: 09/27/22 05:00 Dose: 40 mg Nicotine (Nicotine 21 Mg Patch.Td24) 21 each TD QD PRN PRN Reason: NICOTINE WITHDRAWAL Ondansetron HCl (Ondansetron Pf 4 Mg/2 Ml Vial) 4 mg IV Q6H PRN PRN Reason: Nausea And Vomiting Pantoprazole Sodium (Pantoprazole Sodium 40 Mg Vial) 40 mg IV Q24H [facility] Last Admin: 09/26/22 14:49 Dose: Not Given Polyethylene Glycol (Polyethylene Glycol 3350 17 Gm Powder Packet) 17 gm PO QD PRN PRN Reason: Constipation Last Admin: 09/24/22 08:10 Dose: 17 gm Sodium Chloride (0.9 % Sodium Chloride 10 Ml Syringe - Saline Flush) 10 ml IV Q15M PRN PRN Reason: SALINE FLUSH Sodium Chloride (Sodium Chloride 0.9% Inhalation 3 Ml Neb) 3 ml IH TID@0900,1500,2300 [facility] Last Admin: 09/27/22 08:01 Dose: 3 ml
--- NOTE | 2022-09-27 10:15 | XR_ITS ---
The [address] [address] Patient Name: ERICA CHACON MRN: [id number] date: 1955 Sex: F Assigned Patient Location: ICU Current Patient Location: ICU Accession/Order Number: [id number] Exam Date: 09/27/2022 10:42 Report Date: 09/27/2022 11:03 At the request of: ALIS HEAD Procedure: XR chest 1V PROCEDURE: XR chest 1V DATE: 09/27/2022 9:42 AM CDT COMPARISONS: 09/26/2022 CLINICAL INDICATION: 67 years Female Respiratory failure, on vent FINDINGS: Heart size is within normal limits and stable. There is diffuse increase in interstitial markings throughout all lung hastings, similar to previous exam. Some of this probably represents a small amount of chronic lung change. Some of this may represent some interstitial fluid due to congestion. There is no evidence of consolidating infiltrates to suggest localized pneumonia on the present images. There is no evidence of pleural effusion or pneumothorax. Endotracheal tube remains in stable position. It is in good position above the ayush, approximately 4 cm above the ayush. An enteric tube is in place. Caudal end overlies the proximal stomach with the tip extending off the lower portion of the radiograph. IMPRESSION: The chest is not significantly changed from previous day. Findings as discussed above. Electronically authenticated by: RALPH LU Date: 09/27/2022 11:03
--- NOTE | 2022-09-27 10:18 | P.PLPN_ITS ---
Progress Note: A&P Assessment and Plan (1) Acute exacerbation of bronchiectasis: Plan 1.? Acute exacerbation of bronchiectasis.? Continues to have secretions, beginning to thin out, now more white. Absolutely needs to adhere to pulmonary toilet outpatient. 2.? Haemophilus influenzae pneumonia.? Beta-lactamase positive.? Cultured from BAL 09/23/2022.? On Rocephin + Levaquin. 3.? Acute hypercapnic respiratory failure.? Slightly worse pCO2 today... Decrease FiO2 to prevent hyperoxic-induced hypercapnia. 4.? Acute hypoxic respiratory failure secondary to #1 & #2.? Oxygenation improving, decrease FiO2 d/t CO2 retention. Recheck TG tomorrow. 5.? Acute exacerbation of COPD.? Continue bronchodilators. Holding off on theophylline. 6.? Multiple pulmonary nodules.? Stable outpatient. 7.? Tobacco abuse.? Smoking cessation critical to decrease risk for recurrent exacerbations. Patient is critically ill requiring intensive care unit management. Remains on the ventilator, not ready for weaning today. Case discussed with RN, and RT. 35 minutes critical care time. Fall Risk Details Traylor Fall Scale Risk Level: High Fall Risk Current Medications: Current Medications Albuterol/Ipratropium (Ipratropium/Albuterol Sulfate 3 Ml Ampul.Neb) 3 ml IH Q4H [facility] Last Admin: 09/27/22 07:26 Dose: 3 ml Aspirin (Aspirin 81 Mg Tablet.) 81 mg PO QD [facility] Last Admin: 09/26/22 08:06 Dose: 81 mg Budesonide (Budesonide 0.5 Mg/2 Ml Ampule Neb) 0.5 mg IH BID@1100,2300 [facility] Last Admin: 09/26/22 23:06 Dose: 0.5 mg Enoxaparin Sodium (Enoxaparin Sodium 40 Mg/0.4 Ml Syringe) 40 mg SUBQ QD@0800 [facility] Last Admin: 09/27/22 07:47 Dose: 40 mg Enteral Nutritional Formula (Ensure Original 237 Ml Liquid) 237 ml FEED TUBE Q4H [facility] Guaifenesin (Guaifenesin 200 Mg/Dextromethorphan 20 Mg 10 Ml Syrup) 10 ml PO Q6H PRN PRN Reason: Cough Hydralazine HCl (Hydralazine Hcl 20 Mg/Ml Vial) 10 mg IVP Q4H PRN PRN Reason: Hypertension Hydroxyzine Pamoate (Hydroxyzine Pamoate 25 Mg Capsule) 25 mg PO QID PRN PRN Reason: Anxiety Last Admin: 09/24/22 02:15 Dose: 25 mg Lactated Ringer's (Lactated Ringers) 1,000 mls @ 50 mls/hr IV .Q20H [facility] Last Admin: 09/27/22 07:08 Dose: 50 mls/hr Levofloxacin/Dextrose (Levaquin 500 Mg/100 Ml-D5w) 500 mg in 100 mls @ 100 mls/hr IV Q24H [facility] Last Infusion: 09/26/22 12:14 Dose: Infused Propofol (Diprivan) 1,000 mg in 100 mls @ 23.73 mls/hr IV TITR [facility]; Protocol Last Admin: 09/27/22 07:06 Dose: 50 mcg/kg/min, 23.73 mls/hr Ceftriaxone Sodium 1,000 mg/ (Sodium Chloride) 50 mls @ 100 mls/hr IV Q24H [facility] Last Infusion: 09/26/22 17:52 Dose: Infused Insulin Aspart (Insulin Aspart 300 Unit/3 Ml Pen) 3 - 15 unit SUBQ [facility]; Protocol Last Admin: 09/27/22 07:44 Dose: 4 unit Levothyroxine Sodium (Levothyroxine Sodium 112 Mcg Tablet) 112 mcg PO QD@0630 [facility] Last Admin: 09/27/22 06:08 Dose: 112 mcg Losartan Potassium (Losartan Potassium 50 Mg Tablet) 100 mg PO QAM [facility] Last Admin: 09/26/22 08:04 Dose: 100 mg Methylprednisolone Sodium Succinate (Methylprednisolone Sod Succ Pf 40 Mg/Ml Vial) 40 mg IVP Q6H [facility] Last Admin: 09/27/22 05:00 Dose: 40 mg Nicotine (Nicotine 21 Mg Patch.Td24) 21 each TD QD PRN PRN Reason: NICOTINE WITHDRAWAL Ondansetron HCl (Ondansetron Pf 4 Mg/2 Ml Vial) 4 mg IV Q6H PRN PRN Reason: Nausea And Vomiting Pantoprazole Sodium (Pantoprazole Sodium 40 Mg Vial) 40 mg IV Q24H [facility] Last Admin: 09/26/22 14:49 Dose: Not Given Polyethylene Glycol (Polyethylene Glycol 3350 17 Gm Powder Packet) 17 gm PO QD PRN PRN Reason: Constipation Last Admin: 09/24/22 08:10 Dose: 17 gm Sodium Chloride (0.9 % Sodium Chloride 10 Ml Syringe - Saline Flush) 10 ml IV Q15M PRN PRN Reason: SALINE FLUSH Sodium Chloride (Sodium Chloride 0.9% Inhalation 3 Ml Neb) 3 ml IH TID@0900,1500,2300 [facility] Last Admin: 09/27/22 08:01 Dose: 3 ml Subjective Subjective Interval history: Patient remains sedated, on ventilator. Discussed with RN, RT. Daily CXR are not transmitting over despite ordering them yesterday and the day before...[employer] was notified by RN. Continuing to suction secretions, but thinning out and color changing from yellow-green to whitish. No hemoptysis. p H/pCO2 slightly worse today. No new pulmonary issues otherwise. Exam Narrative Exam Narrative: Calm on ventilator. Constitutional Vital Signs - 24 hr 09/26/22 11:19 09/26/22 10:30 09/26/22 11:00 Temperature Pulse Rate 90 86 Pulse Rate [Monitor] Respiratory Rate 21 Blood Pressure 133/59 H 122/52 H Pulse Oximetry 95 Oxygen Delivery Method Fraction of Inspired Oxygen 09/26/22 11:30 09/26/22 11:37 09/26/22 11:53 Temperature 98.8 F Pulse Rate 86 84 Pulse Rate [Monitor] Respiratory Rate 20 Blood Pressure 132/62 H Pulse Oximetry 93 L 95 Oxygen Delivery Method Fraction of Inspired Oxygen 50 09/26/22 11:30 09/26/22 12:00 09/26/22 12:30 Temperature Pulse Rate 85 94 H 94 H Pulse Rate [Monitor] Respiratory Rate Blood Pressure 132/62 H 120/56 H 134/65 H Pulse Oximetry 95 94 L 94 L Oxygen Delivery Method Fraction of Inspired Oxygen 09/26/22 13:00 09/26/22 13:30 09/26/22 14:00 Temperature Pulse Rate 90 91 H 91 H Pulse Rate [Monitor] Respiratory Rate Blood Pressure 142/67 H 130/69 H 139/64 H Pulse Oximetry 94 L 94 L 94 L Oxygen Delivery Method Fraction of Inspired Oxygen 09/26/22 14:30 09/26/22 14:44 09/26/22 15:36 Temperature Pulse Rate 87 88 Pulse Rate [Monitor] Respiratory Rate 20 21 Blood Pressure 134/62 H Pulse Oximetry 93 L 94 L Oxygen Delivery Method Fraction of Inspired Oxygen 50 09/26/22 16:28 09/26/22 14:30 09/26/22 15:00 Temperature 99.1 F Pulse Rate 87 88 Pulse Rate [Monitor] Respiratory Rate Blood Pressure 134/62 H 139/66 H Pulse Oximetry 93 L 94 L Oxygen Delivery Method Fraction of Inspired Oxygen 09/26/22 15:30 09/26/22 16:00 09/26/22 16:30 Temperature Pulse Rate 97 H 100 H 103 H Pulse Rate [Monitor] Respiratory Rate Blood Pressure 122/58 H 125/59 H 126/59 H Pulse Oximetry 94 L 94 L 94 L Oxygen Delivery Method Fraction of Inspired Oxygen 09/26/22 17:00 09/26/22 17:30 09/26/22 18:00 Temperature Pulse Rate 104 H 101 H 96 H Pulse Rate [Monitor] Respiratory Rate Blood Pressure 138/67 H 133/66 H 142/66 H Pulse Oximetry 94 L 94 L 94 L Oxygen Delivery Method Fraction of Inspired Oxygen 09/26/22 18:00 09/26/22 18:30 09/26/22 19:00 Temperature Pulse Rate 99 H 91 H 90 Pulse Rate [Monitor] Respiratory Rate Blood Pressure 142/66 H 138/65 H 143/62 H Pulse Oximetry 94 L 95 95 Oxygen Delivery Method Fraction of Inspired Oxygen 09/26/22 19:21 09/26/22 19:22 09/26/22 19:22 Temperature 100.1 F H Pulse Rate 89 Pulse Rate [Monitor] 90 Respiratory Rate Blood Pressure Pulse Oximetry 95 Oxygen Delivery Method Fraction of Inspired Oxygen 09/26/22 19:31 09/26/22 19:31 09/26/22 19:00 Temperature Pulse Rate 89 89 90 Pulse Rate [Monitor] Respiratory Rate 24 24 Blood Pressure 143/62 H Pulse Oximetry 95 95 95 Oxygen Delivery Method Mechanical Ventilator Fraction of Inspired Oxygen 50 50 09/26/22 19:30 09/26/22 19:30 09/26/22 20:00 Temperature Pulse Rate 102 H 103 H 108 H Pulse Rate [Monitor] Respiratory Rate Blood Pressure 150/67 H 150/67 H 154/70 H Pulse Oximetry 95 93 L 95 Oxygen Delivery Method Fraction of Inspired Oxygen 09/26/22 20:30 09/26/22 21:00 09/26/22 21:00 Temperature Pulse Rate 107 H 108 H 108 H Pulse Rate [Monitor] Respiratory Rate Blood Pressure 157/71 H 152/71 H 152/71 H Pulse Oximetry 92 L 94 L 94 L Oxygen Delivery Method Fraction of Inspired Oxygen 09/26/22 21:30 09/26/22 21:30 09/26/22 22:00 Temperature Pulse Rate 106 H 105 H 102 H Pulse Rate [Monitor] Respiratory Rate Blood Pressure 151/70 H 151/70 H 147/69 H Pulse Oximetry 93 L 91 L 92 L Oxygen Delivery Method Fraction of Inspired Oxygen 09/26/22 22:00 09/26/22 22:30 09/26/22 23:08 Temperature Pulse Rate 95 H 96 H Pulse Rate [Monitor] 92 H Respiratory Rate Blood Pressure 147/69 H 127/66 H Pulse Oximetry 92 L 92 L Oxygen Delivery Method Fraction of Inspired Oxygen 09/26/22 23:16 09/26/22 23:06 09/26/22 23:06 Temperature Pulse Rate 92 H 91 H 91 H Pulse Rate [Monitor] Respiratory Rate 23 23 Blood Pressure Pulse Oximetry 92 L 93 L 93 L Oxygen Delivery Method Mechanical Ventilator Fraction of Inspired Oxygen 50 50 09/26/22 22:30 09/26/22 23:00 09/26/22 23:27 Temperature 99.4 F Pulse Rate 94 H 92 H Pulse Rate [Monitor] Respiratory Rate Blood Pressure 127/66 H 137/63 H Pulse Oximetry 93 L 93 L Oxygen Delivery Method Fraction of Inspired Oxygen 09/26/22 23:00 09/26/22 23:30 09/27/22 00:00 Temperature Pulse Rate 97 H 94 H 92 H Pulse Rate [Monitor] Respiratory Rate Blood Pressure 137/63 H 148/72 H 137/66 H Pulse Oximetry 94 L 93 L 93 L Oxygen Delivery Method Fraction of Inspired Oxygen 09/27/22 00:00 09/27/22 00:30 09/27/22 00:30 Temperature Pulse Rate 89 85 84 Pulse Rate [Monitor] Respiratory Rate Blood Pressure 137/66 H 131/61 H 131/61 H Pulse Oximetry 93 L 93 L 93 L Oxygen Delivery Method Fraction of Inspired Oxygen 09/27/22 01:00 09/27/22 01:30 09/27/22 01:30 Temperature Pulse Rate 82 81 80 Pulse Rate [Monitor] Respiratory Rate Blood Pressure 125/58 H 126/62 H 126/62 H Pulse Oximetry 94 L 96 Oxygen Delivery Method Fraction of Inspired Oxygen 09/27/22 02:00 09/27/22 03:16 09/27/22 03:16 Temperature Pulse Rate 81 77 Pulse Rate [Monitor] 77 Respiratory Rate Blood Pressure 141/73 H Pulse Oximetry 94 L 91 L Oxygen Delivery Method Fraction of Inspired Oxygen 09/27/22 02:00 09/27/22 02:30 09/27/22 03:00 Temperature Pulse Rate 80 78 77 Pulse Rate [Monitor] Respiratory Rate Blood Pressure 141/73 H 128/66 H 128/75 H Pulse Oximetry 94 L 94 L 92 L Oxygen Delivery Method Fraction of Inspired Oxygen 09/27/22 03:52 09/27/22 03:00 09/27/22 03:30 Temperature Pulse Rate 96 H 77 77 Pulse Rate [Monitor] Respiratory Rate 20 Blood Pressure 128/75 H 116/63 Pulse Oximetry 92 L 91 L 92 L Oxygen Delivery Method Fraction of Inspired Oxygen 50 09/27/22 04:00 09/27/22 04:00 09/27/22 04:00 Temperature Pulse Rate 78 79 78 Pulse Rate [Monitor] Respiratory Rate Blood Pressure 123/66 H 123/66 H 123/66 H Pulse Oximetry 92 L 92 L 92 L Oxygen Delivery Method Fraction of Inspired Oxygen 09/27/22 04:30 09/27/22 05:00 09/27/22 05:00 Temperature Pulse Rate 79 79 78 Pulse Rate [Monitor] Respiratory Rate Blood Pressure 124/61 H 128/70 H 128/70 H Pulse Oximetry 92 L 92 L 92 L Oxygen Delivery Method Fraction of Inspired Oxygen 09/27/22 05:30 09/27/22 06:00 09/27/22 07:34 Temperature Pulse Rate 79 79 80 Pulse Rate [Monitor] Respiratory Rate 22 Blood Pressure 134/58 H 135/67 H Pulse Oximetry 93 L 93 L 95 Oxygen Delivery Method Fraction of Inspired Oxygen 50 Documenting provider has reviewed patient's vital signs: yes Other: 8.0 ETT, OGT HENMT Teeth and gingiva: other (8.0 ETT, OGT) Other: Wearing BiPAP Neck & C-Spine Other: Trachea midline Chest Other: Normal rise & fall with respirations Respiratory Other: Breathing with ventilator. Mild moist crackles throughout, less expiratory wheezing. Cardio Other: RRR GI Other: Soft + decreased BS Other: [place] Extremity Other: Continue restraints again for prevention of self-harm. 2/4 bilateral dorsalis pedis pulses. Neuro Other: Sedated Urinary Catheter Management Urinary Catheter Management Urethral: Cath placed during this visit: yes Urethral indwelling: Yes Reason for continuing: measure accurate output Insertion date: 09/25/22 Insertion time: 13:46
[2022-09-27] MEDS: LOSARTAN POTASSIUM 50 MG TABLET 100 MG PO (10:34)
[2022-09-27] MEDS: ASPIRIN 81 MG TABLET.DR PO (10:34)
[2022-09-27] MEDS: BUDESONIDE 0.5 MG/2 ML AMPULE NEB IH ×2 (10:42→23:59)
[2022-09-27] MEDS: LEVOFLOXACIN IN DEXTROSE 5 % 500 MG/100 ML PIGGYBACK 100 MG IV (11:24)
[2022-09-27 11:31] LABS: Glucometer 193 mg/dL (74-106)
[2022-09-27] MEDS: PIPERACILLIN SODIUM/TAZOBACTAM 3.375 GM in 0.9 % SODIUM CHLORIDE 50 ML IV ×2 (13:05→21:42)
[2022-09-27 15:51] LABS: Glucometer 79 mg/dL (74-106)
[2022-09-28] VITALS (64 sets, daily range): BP systolic 103–172; BP diastolic 53–95; PULSE 81–111; RESP 14–32; TEMP 36.6–37.2; O2SAT 86–96
[2022-09-28] MEDS: INSULIN ASPART 300 UNIT/3 ML PEN SUBQ ×4 (00:50→23:36)
[2022-09-28] MEDS: METHYLPREDNISOLONE SOD SUCC PF 40 MG/ML VIAL IVP ×5 (00:55→23:42)
[2022-09-28 00:56] LABS: Glucometer 192 mg/dL (74-106)
[2022-09-28] MEDS: PROPOFOL 1,000 MG/100 ML VIAL 21.357 MG IV ×3 (03:28→12:18)
[2022-09-28] MEDS: IPRATROPIUM/ALBUTEROL SULFATE 3 ML AMPUL.NEB IH ×7 (03:58→23:28)
[2022-09-28 04:51] LABS: Alanine Aminotransferase 37 U/L (14-59); Albumin Globulin Ratio 0.6; Albumin Level 2.2 g/dL (3.4-5.0); Alkaline Phosphatase 54 U/L (46-116); Anion Gap 8.3; Aspartate Amino Transferase 44 U/L (15-37); BUN Creatinine Ratio 34.1; Bilirubin Total 0.2 mg/dL (0.2-1.0); Calcium 9.4 mg/dL (8.5-10.1); Carbon Dioxide 37.2 mmol/L (21.0-32.0); Chloride 101 mmol/L (98-107); Estimated GFR (African America >60 (>=60); Estimated GFR (Non-African Ame >60 (>=60); Glucose 262 mg/dL (74-106); Potassium 5.5 mmol/L (3.5-5.1); Sodium 141 mmol/L (136-145); Total Protein 6.2 g/dL (6.4-8.2)
[2022-09-28 04:52] LABS: Triglycerides 122 mg/dL (<=150)
[2022-09-28] MEDS: LACTATED RINGER'S SOLUTION 1,000 ML 50 ML IV ×2 (05:01→22:23)
[2022-09-28 05:23] LABS: PO2 ABG 75.9 mmHg (80.0-100.0); pH ABG 7.409 (7.350-7.450)
[2022-09-28 05:24] LABS: Base Excess ABG 16.1 mmol/L (-2.0-2.0); HCO3 ABG 40.8 mmol/L (22.0-26.0); Oxygen Saturation ABG 95.4 %; Tidal Volume 500
[2022-09-28 05:25] LABS: Rate 20
[2022-09-28] MEDS: PIPERACILLIN SODIUM/TAZOBACTAM 3.375 GM in 0.9 % SODIUM CHLORIDE 50 ML IV ×3 (05:25→22:31)
[2022-09-28 05:26] LABS: Puncture Site AC
[2022-09-28 05:27] LABS: ABG PCO2 64.5 mmHg (35.0-45.0)
[2022-09-28 05:36] LABS: Glucometer 242 mg/dL (74-106)
[2022-09-28] MEDS: LEVOTHYROXINE SODIUM 112 MCG TABLET PO (05:39)
[2022-09-28 05:40] LABS: Basophils Absolute Auto 0.1 10^3/uL (0.0-0.1); Basophils Percent Auto 0.8 % (0.2-2.0); Hematocrit 43.3 % (36.0-48.0); Hemoglobin 13.7 g/dL (12.0-16.0); Immature Granulocytes Pct Auto 3.4 % (0.0-0.5); Lymphocytes Absolute Auto 0.8 10^3/uL (1.2-3.8); Lymphocytes Percent Auto 5.3 % (20.5-60.0); Mean Corpuscular HGB Conc 31.6 g/dL (29.9-35.2); Mean Corpuscular Hemoglobin 30.9 pg (26.7-34.0); Mean Corpuscular Volume 97.7 fL (81.0-99.0); Mean Platelet Volume 9.5 fL (9.5-13.5); Monocytes Absolute Auto 1.1 10^3/uL (0.3-0.8); Monocytes Percent Auto 7.8 % (1.7-12.0); Neutrophils Absolute Auto 12.1 10^3/uL (1.4-6.5); Neutrophils Percent Auto 82.7 % (43.0-75.0); Platelet Count 230 10^3/uL (150-450); Red Blood Count 4.43 10^6/uL (4.20-5.40); Red Cell Distribution Width 13.6 % (11.0-15.0); White Blood Count 14.6 10^3/uL (4.0-11.0)
--- NOTE | 2022-09-28 06:57 | PM.PLPN ---
Progress Note: A&P Assessment and Plan (1) Acute exacerbation of bronchiectasis: Plan 1.? Acute exacerbation of bronchiectasis. Secretions thinning out, less than @ intubation. Will need aggressive pulmonary toilet post-extubation and outpatient (she was not very compliant with PEP and saline nebs recently). 2.? Haemophilus influenzae pneumonia.? Beta-lactamase positive.? Cultured from BAL 09/23/2022.? On Rocephin + Levaquin. Tmax 99.9'F; will check BC x2 to be safe. 3.? Acute hypercapnic respiratory failure.? Normalizing to compensated pH... will need further evaluation outpatient. No evidence of MURRAY...may need NIV. 4.? Acute hypoxic respiratory failure secondary to #1 & #2.? Doing well, FiO2 down to 40%. 5.? Acute exacerbation of COPD.? Continue bronchodilators. 6.? Multiple pulmonary nodules.? Stable outpatient. 7.? Tobacco abuse.? No smoking after discharge! Patient is critically ill requiring intensive care unit management. Currently on ventilator, but begin weaning tria,l sedation vacation. Case discussed with RN & RT. Discussed with them that if she is successfully liberated, she may require a BiPAP bridge. 35 minutes critical care time. Fall Risk Details Traylor Fall Scale Risk Level: High Fall Risk Current Medications: Current Medications Albuterol/Ipratropium (Ipratropium/Albuterol Sulfate 3 Ml Ampul.Neb) 3 ml IH Q4H [facility] Last Admin: 09/28/22 03:58 Dose: 3 ml Aspirin (Aspirin 81 Mg Tablet.) 81 mg PO QD [facility] Last Admin: 09/27/22 10:34 Dose: 81 mg Budesonide (Budesonide 0.5 Mg/2 Ml Ampule Neb) 0.5 mg IH BID@1100,2300 [facility] Last Admin: 09/27/22 23:59 Dose: 0.5 mg Enoxaparin Sodium (Enoxaparin Sodium 40 Mg/0.4 Ml Syringe) 40 mg SUBQ QD@0800 [facility] Last Admin: 09/27/22 07:47 Dose: 40 mg Enteral Nutritional Formula (Ensure Original 237 Ml Liquid) 237 ml FEED TUBE Q4H [facility] Last Admin: 09/28/22 05:25 Dose: 237 ml Guaifenesin (Guaifenesin 200 Mg/Dextromethorphan 20 Mg 10 Ml Syrup) 10 ml PO Q6H PRN PRN Reason: Cough Hydralazine HCl (Hydralazine Hcl 20 Mg/Ml Vial) 10 mg IVP Q4H PRN PRN Reason: Hypertension Hydroxyzine Pamoate (Hydroxyzine Pamoate 25 Mg Capsule) 25 mg PO QID PRN PRN Reason: Anxiety Last Admin: 09/24/22 02:15 Dose: 25 mg Lactated Ringer's (Lactated Ringers) 1,000 mls @ 50 mls/hr IV .Q20H [facility] Last Admin: 09/28/22 05:01 Dose: 50 mls/hr Levofloxacin/Dextrose (Levaquin 500 Mg/100 Ml-D5w) 500 mg in 100 mls @ 100 mls/hr IV Q24H [facility] Last Infusion: 09/27/22 12:34 Dose: Infused Propofol (Diprivan) 1,000 mg in 100 mls @ 23.73 mls/hr IV TITR [facility]; Protocol Last Admin: 09/28/22 03:28 Dose: 45 mcg/kg/min, 21.357 mls/hr Piperacillin Sod/Tazobactam (Sod 3.375 gm/ Sodium Chloride) 50 mls @ 12.5 mls/hr IV Q8H [facility] Last Admin: 09/28/22 05:25 Dose: 0 ml/hr, 12.5 mls/hr Insulin Aspart (Insulin Aspart 300 Unit/3 Ml Pen) 3 - 15 unit SUBQ Q6H [facility]; Protocol Last Admin: 09/28/22 05:29 Dose: 12 unit Insulin Detemir (Insulin Detemir 300 Unit/3 Ml Insuln.Pen) 10 unit SUBQ BID [facility] Levothyroxine Sodium (Levothyroxine Sodium 112 Mcg Tablet) 112 mcg PO QD@0630 [facility] Last Admin: 09/28/22 05:39 Dose: 112 mcg Losartan Potassium (Losartan Potassium 50 Mg Tablet) 100 mg PO QAM [facility] Last Admin: 09/27/22 10:34 Dose: 100 mg Methylprednisolone Sodium Succinate (Methylprednisolone Sod Succ Pf 40 Mg/Ml Vial) 40 mg IVP Q6H [facility] Last Admin: 09/28/22 05:25 Dose: 40 mg Nicotine (Nicotine 21 Mg Patch.Td24) 21 each TD QD PRN PRN Reason: NICOTINE WITHDRAWAL Ondansetron HCl (Ondansetron Pf 4 Mg/2 Ml Vial) 4 mg IV Q6H PRN PRN Reason: Nausea And Vomiting Pantoprazole Sodium (Pantoprazole Sodium 40 Mg Vial) 40 mg IV Q24H [facility] Last Admin: 09/27/22 15:31 Dose: Not Given Polyethylene Glycol (Polyethylene Glycol 3350 17 Gm Powder Packet) 17 gm PO QD PRN PRN Reason: Constipation Last Admin: 09/24/22 08:10 Dose: 17 gm Sodium Chloride (0.9 % Sodium Chloride 10 Ml Syringe - Saline Flush) 10 ml IV Q15M PRN PRN Reason: SALINE FLUSH Sodium Chloride (Sodium Chloride 0.9% Inhalation 3 Ml Neb) 3 ml IH TID@0900,1500,2300 [facility] Last Admin: 09/27/22 23:59 Dose: 3 ml Subjective Subjective Interval history: Patient remains sedated, on ventilator. Discussed with RN, RT. ABG = compensated respiratory acidosis. Still suctioning secretions, but less than several days ago. Wheezes improved. Tmax 99.9'F. Patient has remained calm on vent. Exam Constitutional Vital Signs - 24 hr 09/27/22 10:56 09/27/22 11:04 09/27/22 15:01 Temperature Pulse Rate 95 H Pulse Rate [Monitor] Respiratory Rate 22 21 21 Blood Pressure Pulse Oximetry 95 Oxygen Delivery Method Fraction of Inspired Oxygen 09/27/22 07:00 09/27/22 07:30 09/27/22 08:00 Temperature Pulse Rate 82 87 85 Pulse Rate [Monitor] Respiratory Rate Blood Pressure 132/67 H 151/77 H 148/62 H Pulse Oximetry 94 L 94 L 90 L Oxygen Delivery Method Fraction of Inspired Oxygen 09/27/22 08:30 09/27/22 09:00 09/27/22 09:30 Temperature Pulse Rate 84 83 84 Pulse Rate [Monitor] Respiratory Rate Blood Pressure 145/61 H 142/63 H 144/68 H Pulse Oximetry 90 L 92 L 92 L Oxygen Delivery Method Fraction of Inspired Oxygen 09/27/22 10:00 09/27/22 10:30 09/27/22 11:00 Temperature Pulse Rate 83 85 82 Pulse Rate [Monitor] Respiratory Rate Blood Pressure 143/62 H 139/63 H 128/59 H Pulse Oximetry 93 L 93 L 94 L Oxygen Delivery Method Fraction of Inspired Oxygen 09/27/22 11:30 09/27/22 12:00 09/27/22 12:30 Temperature Pulse Rate 82 81 81 Pulse Rate [Monitor] Respiratory Rate Blood Pressure 124/59 H 130/62 H 126/55 H Pulse Oximetry 94 L 94 L 94 L Oxygen Delivery Method Fraction of Inspired Oxygen 09/27/22 13:00 09/27/22 13:30 09/27/22 14:01 Temperature Pulse Rate 81 Pulse Rate [Monitor] Respiratory Rate Blood Pressure 134/66 H 137/60 H 141/75 H Pulse Oximetry 94 L 96 Oxygen Delivery Method Fraction of Inspired Oxygen 09/27/22 14:30 09/27/22 15:55 09/27/22 15:00 Temperature 99.5 F Pulse Rate 78 80 Pulse Rate [Monitor] Respiratory Rate 20 Blood Pressure 108/53 L 124/56 H Pulse Oximetry 94 L 95 Oxygen Delivery Method Fraction of Inspired Oxygen 40 09/27/22 15:30 09/27/22 16:00 09/27/22 16:30 Temperature Pulse Rate 80 85 83 Pulse Rate [Monitor] Respiratory Rate Blood Pressure 98/53 L 108/55 L 106/53 L Pulse Oximetry 94 L 94 L 96 Oxygen Delivery Method Fraction of Inspired Oxygen 09/27/22 19:18 09/27/22 19:18 09/27/22 16:30 Temperature 99.9 F H Pulse Rate 90 85 Pulse Rate [Monitor] 90 Respiratory Rate Blood Pressure 106/53 L Pulse Oximetry 92 L 95 Oxygen Delivery Method Fraction of Inspired Oxygen 09/27/22 17:00 09/27/22 17:30 09/27/22 18:00 Temperature Pulse Rate 93 H 95 H 93 H Pulse Rate [Monitor] Respiratory Rate Blood Pressure 120/55 H 127/52 H 129/60 H Pulse Oximetry 95 95 94 L Oxygen Delivery Method Fraction of Inspired Oxygen 09/27/22 18:30 09/27/22 19:00 09/27/22 19:55 Temperature Pulse Rate 90 89 90 Pulse Rate [Monitor] Respiratory Rate 20 Blood Pressure 128/69 H 123/65 H Pulse Oximetry 93 L 92 L 92 L Oxygen Delivery Method Fraction of Inspired Oxygen 40 09/27/22 19:55 09/27/22 19:30 09/27/22 20:00 Temperature Pulse Rate 89 90 Pulse Rate [Monitor] Respiratory Rate Blood Pressure 135/64 H 125/69 H Pulse Oximetry 92 L 92 L 92 L Oxygen Delivery Method Mechanical Ventilator Fraction of Inspired Oxygen 40 09/27/22 20:21 09/27/22 19:55 09/27/22 20:00 Temperature Pulse Rate 92 H 90 92 H Pulse Rate [Monitor] Respiratory Rate 20 Blood Pressure 125/69 H Pulse Oximetry 92 L 92 L 92 L Oxygen Delivery Method Mechanical Ventilator Fraction of Inspired Oxygen 40 40 09/27/22 20:00 09/27/22 20:30 09/27/22 20:30 Temperature Pulse Rate 93 H 98 H 94 H Pulse Rate [Monitor] Respiratory Rate Blood Pressure 125/69 H 129/67 H 129/67 H Pulse Oximetry 93 L 92 L 92 L Oxygen Delivery Method Fraction of Inspired Oxygen 09/27/22 21:00 09/27/22 21:00 09/27/22 21:30 Temperature Pulse Rate 95 H 92 H 90 Pulse Rate [Monitor] Respiratory Rate Blood Pressure 125/64 H 125/64 H 127/62 H Pulse Oximetry 92 L 92 L 93 L Oxygen Delivery Method Fraction of Inspired Oxygen 09/27/22 22:00 09/27/22 23:11 09/27/22 23:11 Temperature Pulse Rate 91 H 87 Pulse Rate [Monitor] 87 Respiratory Rate Blood Pressure 113/63 Pulse Oximetry 93 L Oxygen Delivery Method Fraction of Inspired Oxygen 09/27/22 22:00 09/27/22 22:30 09/27/22 23:00 Temperature Pulse Rate 89 87 86 Pulse Rate [Monitor] Respiratory Rate Blood Pressure 113/63 111/61 103/58 L Pulse Oximetry 93 L 93 L 93 L Oxygen Delivery Method Fraction of Inspired Oxygen 09/27/22 23:00 09/27/22 23:30 09/27/22 23:30 Temperature Pulse Rate 86 86 84 Pulse Rate [Monitor] Respiratory Rate Blood Pressure 103/58 L 104/59 L 104/59 L Pulse Oximetry 93 L 93 L 93 L Oxygen Delivery Method Fraction of Inspired Oxygen 09/28/22 00:00 09/27/22 19:55 09/27/22 23:59 Temperature Pulse Rate 88 84 Pulse Rate [Monitor] Respiratory Rate 20 Blood Pressure 111/59 L Pulse Oximetry 94 L 94 L Oxygen Delivery Method Mechanical Ventilator Fraction of Inspired Oxygen 40 09/28/22 00:00 09/28/22 00:30 09/28/22 01:00 Temperature Pulse Rate 83 84 85 Pulse Rate [Monitor] Respiratory Rate Blood Pressure 111/59 L 103/53 L 110/57 L Pulse Oximetry 94 L 93 L 93 L Oxygen Delivery Method Fraction of Inspired Oxygen 09/28/22 01:30 09/28/22 01:30 09/28/22 02:00 Temperature Pulse Rate 84 83 83 Pulse Rate [Monitor] Respiratory Rate Blood Pressure 106/56 L 106/56 L 105/54 L Pulse Oximetry 93 L 93 L 93 L Oxygen Delivery Method Fraction of Inspired Oxygen 09/28/22 02:00 09/28/22 02:30 09/28/22 03:10 Temperature Pulse Rate 84 83 Pulse Rate [Monitor] 83 Respiratory Rate Blood Pressure 105/54 L 131/70 H Pulse Oximetry 93 L 94 L Oxygen Delivery Method Fraction of Inspired Oxygen 09/28/22 03:10 09/28/22 02:30 09/28/22 03:00 Temperature Pulse Rate 83 82 82 Pulse Rate [Monitor] Respiratory Rate Blood Pressure 131/70 H 137/55 H Pulse Oximetry 94 L 94 L 95 Oxygen Delivery Method Fraction of Inspired Oxygen 09/28/22 03:59 09/28/22 03:00 09/28/22 03:30 Temperature Pulse Rate 85 83 85 Pulse Rate [Monitor] Respiratory Rate 23 Blood Pressure 137/55 H 140/59 H Pulse Oximetry 94 L 94 L 93 L Oxygen Delivery Method Fraction of Inspired Oxygen 40 09/28/22 04:00 09/28/22 04:44 09/28/22 04:00 Temperature Pulse Rate 86 86 Pulse Rate [Monitor] Respiratory Rate Blood Pressure 130/57 H 130/57 H Pulse Oximetry 93 L 94 L Oxygen Delivery Method Mechanical Ventilator Fraction of Inspired Oxygen 09/28/22 04:30 09/28/22 04:30 09/28/22 05:00 Temperature Pulse Rate 87 87 87 Pulse Rate [Monitor] Respiratory Rate Blood Pressure 147/71 H 147/71 H 124/57 H Pulse Oximetry 93 L 93 L 94 L Oxygen Delivery Method Fraction of Inspired Oxygen 09/28/22 05:00 09/28/22 05:30 09/28/22 05:30 Temperature Pulse Rate 86 86 87 Pulse Rate [Monitor] Respiratory Rate Blood Pressure 124/57 H 126/64 H 126/64 H Pulse Oximetry 93 L 93 L 94 L Oxygen Delivery Method Fraction of Inspired Oxygen 09/28/22 06:00 09/28/22 06:00 09/28/22 06:30 Temperature Pulse Rate 87 87 88 Pulse Rate [Monitor] Respiratory Rate Blood Pressure 130/59 H 130/59 H 125/61 H Pulse Oximetry 93 L 93 L 92 L Oxygen Delivery Method Fraction of Inspired Oxygen 09/27/22 07:34 Temperature Pulse Rate 80 Pulse Rate [Monitor] Respiratory Rate 22 Blood Pressure Pulse Oximetry 95 Oxygen Delivery Method Fraction of Inspired Oxygen 50 Documenting provider has reviewed patient's vital signs: yes Common normals: no apparent distress General appearance: patient mechanically ventilated HENMT Other: 8.0 ETT, OGT Chest Chest: symmetrical chest wall rise; no crepitus Respiratory Common normals: normal respiratory effort Other: Moist crackles, less than yesterday. Wheezes not present at this time. No significant rhonchi. Breathing with vent. Cardio Other: RRR GI Other: Soft, NT Other: [place] Extremity Other: No edema, +2/4 dorsalis pedis pulses Neuro Other: Sedated Urinary Catheter Management Urinary Catheter Management Urethral: Cath placed during this visit: yes Urethral indwelling: Yes Reason for continuing: measure accurate output Insertion date: 09/25/22 Insertion time: 13:46
[2022-09-28] MEDS: SODIUM CHLORIDE 0.9% INHALATION 3 ML NEB IH ×2 (07:12→23:28)
[2022-09-28] MEDS: ASPIRIN 81 MG TABLET.DR PO (08:06)
[2022-09-28] MEDS: ENOXAPARIN SODIUM 40 MG/0.4 ML SYRINGE SUBQ (08:06)
[2022-09-28 08:08] LABS: Glucometer 196 mg/dL (74-106)
[2022-09-28] MEDS: LOSARTAN POTASSIUM 50 MG TABLET 100 MG PO (08:08)
[2022-09-28] MEDS: INSULIN DETEMIR 300 UNIT/3 ML INSULN.PEN 10 UNIT SUBQ ×2 (08:11→22:27)
--- NOTE | 2022-09-28 08:47 | P.PN_ITS ---
Not sure why I have to co-sign Dr. Flores's notes (which I shouldn't), but with [facility] conversion, strange things are happening. -[facility] Progress Note: Subjective Subjective Interval history: Pt sedate on vent Exam Constitutional Vital Signs - 24 hr 09/27/22 10:56 09/27/22 11:04 09/27/22 15:01 Temperature Pulse Rate 95 H Pulse Rate [Monitor] Respiratory Rate 22 21 21 Blood Pressure Pulse Oximetry 95 Oxygen Delivery Method Fraction of Inspired Oxygen 09/27/22 09:00 09/27/22 09:30 09/27/22 10:00 Temperature Pulse Rate 83 84 83 Pulse Rate [Monitor] Respiratory Rate Blood Pressure 142/63 H 144/68 H 143/62 H Pulse Oximetry 92 L 92 L 93 L Oxygen Delivery Method Fraction of Inspired Oxygen 09/27/22 10:30 09/27/22 11:00 09/27/22 11:30 Temperature Pulse Rate 85 82 82 Pulse Rate [Monitor] Respiratory Rate Blood Pressure 139/63 H 128/59 H 124/59 H Pulse Oximetry 93 L 94 L 94 L Oxygen Delivery Method Fraction of Inspired Oxygen 09/27/22 12:00 09/27/22 12:30 09/27/22 13:00 Temperature Pulse Rate 81 81 81 Pulse Rate [Monitor] Respiratory Rate Blood Pressure 130/62 H 126/55 H 134/66 H Pulse Oximetry 94 L 94 L 94 L Oxygen Delivery Method Fraction of Inspired Oxygen 09/27/22 13:30 09/27/22 14:01 09/27/22 14:30 Temperature Pulse Rate Pulse Rate [Monitor] Respiratory Rate Blood Pressure 137/60 H 141/75 H 108/53 L Pulse Oximetry 96 Oxygen Delivery Method Fraction of Inspired Oxygen 09/27/22 15:55 09/27/22 15:00 09/27/22 15:30 Temperature 99.5 F Pulse Rate 78 80 80 Pulse Rate [Monitor] Respiratory Rate 20 Blood Pressure 124/56 H 98/53 L Pulse Oximetry 94 L 95 94 L Oxygen Delivery Method Fraction of Inspired Oxygen 40 09/27/22 16:00 09/27/22 16:30 09/27/22 19:18 Temperature Pulse Rate 85 83 Pulse Rate [Monitor] 90 Respiratory Rate Blood Pressure 108/55 L 106/53 L Pulse Oximetry 94 L 96 Oxygen Delivery Method Fraction of Inspired Oxygen 09/27/22 19:18 09/27/22 16:30 09/27/22 17:00 Temperature 99.9 F H Pulse Rate 90 85 93 H Pulse Rate [Monitor] Respiratory Rate Blood Pressure 106/53 L 120/55 H Pulse Oximetry 92 L 95 95 Oxygen Delivery Method Fraction of Inspired Oxygen 09/27/22 17:30 09/27/22 18:00 09/27/22 18:30 Temperature Pulse Rate 95 H 93 H 90 Pulse Rate [Monitor] Respiratory Rate Blood Pressure 127/52 H 129/60 H 128/69 H Pulse Oximetry 95 94 L 93 L Oxygen Delivery Method Fraction of Inspired Oxygen 09/27/22 19:00 09/27/22 19:55 09/27/22 19:55 Temperature Pulse Rate 89 90 Pulse Rate [Monitor] Respiratory Rate 20 Blood Pressure 123/65 H Pulse Oximetry 92 L 92 L 92 L Oxygen Delivery Method Mechanical Ventilator Fraction of Inspired Oxygen 40 40 09/27/22 19:30 09/27/22 20:00 09/27/22 20:21 Temperature Pulse Rate 89 90 92 H Pulse Rate [Monitor] Respiratory Rate Blood Pressure 135/64 H 125/69 H Pulse Oximetry 92 L 92 L 92 L Oxygen Delivery Method Fraction of Inspired Oxygen 40 09/27/22 19:55 09/27/22 20:00 09/27/22 20:00 Temperature Pulse Rate 90 92 H 93 H Pulse Rate [Monitor] Respiratory Rate 20 Blood Pressure 125/69 H 125/69 H Pulse Oximetry 92 L 92 L 93 L Oxygen Delivery Method Mechanical Ventilator Fraction of Inspired Oxygen 40 09/27/22 20:30 09/27/22 20:30 09/27/22 21:00 Temperature Pulse Rate 98 H 94 H 95 H Pulse Rate [Monitor] Respiratory Rate Blood Pressure 129/67 H 129/67 H 125/64 H Pulse Oximetry 92 L 92 L 92 L Oxygen Delivery Method Fraction of Inspired Oxygen 09/27/22 21:00 09/27/22 21:30 09/27/22 22:00 Temperature Pulse Rate 92 H 90 91 H Pulse Rate [Monitor] Respiratory Rate Blood Pressure 125/64 H 127/62 H 113/63 Pulse Oximetry 92 L 93 L 93 L Oxygen Delivery Method Fraction of Inspired Oxygen 09/27/22 23:11 09/27/22 23:11 09/27/22 22:00 Temperature Pulse Rate 87 89 Pulse Rate [Monitor] 87 Respiratory Rate Blood Pressure 113/63 Pulse Oximetry 93 L Oxygen Delivery Method Fraction of Inspired Oxygen 09/27/22 22:30 09/27/22 23:00 09/27/22 23:00 Temperature Pulse Rate 87 86 86 Pulse Rate [Monitor] Respiratory Rate Blood Pressure 111/61 103/58 L 103/58 L Pulse Oximetry 93 L 93 L 93 L Oxygen Delivery Method Fraction of Inspired Oxygen 09/27/22 23:30 09/27/22 23:30 09/28/22 00:00 Temperature Pulse Rate 86 84 88 Pulse Rate [Monitor] Respiratory Rate Blood Pressure 104/59 L 104/59 L 111/59 L Pulse Oximetry 93 L 93 L 94 L Oxygen Delivery Method Fraction of Inspired Oxygen 09/27/22 19:55 09/27/22 23:59 09/28/22 00:00 Temperature Pulse Rate 84 83 Pulse Rate [Monitor] Respiratory Rate 20 Blood Pressure 111/59 L Pulse Oximetry 94 L 94 L Oxygen Delivery Method Mechanical Ventilator Fraction of Inspired Oxygen 40 09/28/22 00:30 09/28/22 01:00 09/28/22 01:30 Temperature Pulse Rate 84 85 84 Pulse Rate [Monitor] Respiratory Rate Blood Pressure 103/53 L 110/57 L 106/56 L Pulse Oximetry 93 L 93 L 93 L Oxygen Delivery Method Fraction of Inspired Oxygen 09/28/22 01:30 09/28/22 02:00 09/28/22 02:00 Temperature Pulse Rate 83 83 84 Pulse Rate [Monitor] Respiratory Rate Blood Pressure 106/56 L 105/54 L 105/54 L Pulse Oximetry 93 L 93 L 93 L Oxygen Delivery Method Fraction of Inspired Oxygen 09/28/22 02:30 09/28/22 03:10 09/28/22 03:10 Temperature Pulse Rate 83 83 Pulse Rate [Monitor] 83 Respiratory Rate Blood Pressure 131/70 H Pulse Oximetry 94 L 94 L Oxygen Delivery Method Fraction of Inspired Oxygen 09/28/22 02:30 09/28/22 03:00 09/28/22 03:59 Temperature Pulse Rate 82 82 85 Pulse Rate [Monitor] Respiratory Rate 23 Blood Pressure 131/70 H 137/55 H Pulse Oximetry 94 L 95 94 L Oxygen Delivery Method Fraction of Inspired Oxygen 40 09/28/22 03:00 09/28/22 03:30 09/28/22 04:00 Temperature Pulse Rate 83 85 86 Pulse Rate [Monitor] Respiratory Rate Blood Pressure 137/55 H 140/59 H 130/57 H Pulse Oximetry 94 L 93 L 93 L Oxygen Delivery Method Fraction of Inspired Oxygen 09/28/22 04:44 09/28/22 04:00 09/28/22 04:30 Temperature Pulse Rate 86 87 Pulse Rate [Monitor] Respiratory Rate Blood Pressure 130/57 H 147/71 H Pulse Oximetry 94 L 93 L Oxygen Delivery Method Mechanical Ventilator Fraction of Inspired Oxygen 09/28/22 04:30 09/28/22 05:00 09/28/22 05:00 Temperature Pulse Rate 87 87 86 Pulse Rate [Monitor] Respiratory Rate Blood Pressure 147/71 H 124/57 H 124/57 H Pulse Oximetry 93 L 94 L 93 L Oxygen Delivery Method Fraction of Inspired Oxygen 09/28/22 05:30 09/28/22 05:30 09/28/22 06:00 Temperature Pulse Rate 86 87 87 Pulse Rate [Monitor] Respiratory Rate Blood Pressure 126/64 H 126/64 H 130/59 H Pulse Oximetry 93 L 94 L 93 L Oxygen Delivery Method Fraction of Inspired Oxygen 09/28/22 06:00 09/28/22 06:30 09/28/22 07:19 Temperature Pulse Rate 87 88 88 Pulse Rate [Monitor] Respiratory Rate 20 Blood Pressure 130/59 H 125/61 H Pulse Oximetry 93 L 92 L 92 L Oxygen Delivery Method Fraction of Inspired Oxygen 35 09/28/22 08:08 Temperature Pulse Rate Pulse Rate [Monitor] Respiratory Rate Blood Pressure 117/63 Pulse Oximetry Oxygen Delivery Method Fraction of Inspired Oxygen HENMT Head and scalp: other (ET tube in place) Chest Common normals: inspection of chest normal Chest: abnormal inspection of the chest Respiratory Auscultation: bronchial breath sounds Cardio Rate: regular rate Rhythm: regular rhythm Extremity Common normals: abnormal to inspection (trace to 1+ Edema) Progress Note: Objective Labs Labs: Short CBC 09/28/22 Range/Units 05:30 WBC 14.6 H (4.0-11.0) 10^3/uL Hgb 13.7 (12.0-16.0) g/dL Hct 43.3 (36.0-48.0) % Plt Count 230 (150-450) 10^3/uL BMP 09/27/22 09/28/22 08:10 04:05 Sodium 142 141 Potassium 4.5 5.5 H Chloride 101 101 Carbon Dioxide 36.0 H 37.2 H BUN 28.0 H 29.0 H Creatinine 0.85 0.85 Glucose 293 H 262 H Calcium 9.3 9.4 Liver Function 09/27/22 09/28/22 Range/Units 08:10 04:05 Total Bilirubin 0.2 0.2 (0.2-1.0) mg/dL AST 60 H 44 H (15-37) U/L ALT 40 37 (14-59) U/L Albumin 2.4 L 2.2 L (3.4-5.0) g/dL Progress Note: A&P Assessment and Plan (1) Acute exacerbation of bronchiectasis: Plan Acute exacerbation of bronchiectasis With acute hypoxic respiratory failure With acute respiratory acidosis, secondary to haemophilus influenza that ended up with intubation.? Ventilator being managed by Dr. Lovelace, Maintain current Treatment plan, ABG fairly stable, PCO2 slightly elevated today, evaluate for extubation by Pulmonology Leukocytosis [id number] fever yesterday, urine abnormal, will change up antibiotics 09/27- No more fevers- wbc higher though Hypertension, essential:Continue with medications via NG, will adjust as necessary. Hypothyroidism (acquired): cont with current meds Nutrition-started patient on tube feeds and advanced 60 cc an hour, tolerating well so far, consult to dietitian Hyperglycemia-check insulin sliding scale Patient likely at least 2-3 more days in the hospital.? Potentially longer with risk of complications from all of the above Fall Risk Details Traylor Fall Scale Risk Level: High Fall Risk Current Medications: Current Medications Albuterol/Ipratropium (Ipratropium/Albuterol Sulfate 3 Ml Ampul.Neb) 3 ml IH Q4H [facility] Last Admin: 09/28/22 07:12 Dose: 3 ml Aspirin (Aspirin 81 Mg Tablet.) 81 mg PO QD [facility] Last Admin: 09/28/22 08:06 Dose: 81 mg Budesonide (Budesonide 0.5 Mg/2 Ml Ampule Neb) 0.5 mg IH BID@1100,2300 [facility] Last Admin: 09/27/22 23:59 Dose: 0.5 mg Enoxaparin Sodium (Enoxaparin Sodium 40 Mg/0.4 Ml Syringe) 40 mg SUBQ QD@0800 [facility] Last Admin: 09/28/22 08:06 Dose: 40 mg Enteral Nutritional Formula (Ensure Original 237 Ml Liquid) 237 ml FEED TUBE Q4H [facility] Last Admin: 09/28/22 05:25 Dose: 237 ml Guaifenesin (Guaifenesin 200 Mg/Dextromethorphan 20 Mg 10 Ml Syrup) 10 ml PO Q6H PRN PRN Reason: Cough Hydralazine HCl (Hydralazine Hcl 20 Mg/Ml Vial) 10 mg IVP Q4H PRN PRN Reason: Hypertension Hydroxyzine Pamoate (Hydroxyzine Pamoate 25 Mg Capsule) 25 mg PO QID PRN PRN Reason: Anxiety Last Admin: 09/24/22 02:15 Dose: 25 mg Lactated Ringer's (Lactated Ringers) 1,000 mls @ 50 mls/hr IV .Q20H [facility] Last Admin: 09/28/22 05:01 Dose: 50 mls/hr Levofloxacin/Dextrose (Levaquin 500 Mg/100 Ml-D5w) 500 mg in 100 mls @ 100 mls/hr IV Q24H [facility] Last Infusion: 09/27/22 12:34 Dose: Infused Propofol (Diprivan) 1,000 mg in 100 mls @ 23.73 mls/hr IV TITR [facility]; Protocol Last Admin: 09/28/22 07:36 Dose: 45 mcg/kg/min, 21.357 mls/hr Piperacillin Sod/Tazobactam (Sod 3.375 gm/ Sodium Chloride) 50 mls @ 12.5 mls/hr IV Q8H [facility] Last Admin: 09/28/22 05:25 Dose: 0 ml/hr, 12.5 mls/hr Insulin Aspart (Insulin Aspart 300 Unit/3 Ml Pen) 3 - 15 unit SUBQ Q6H [facility]; Protocol Last Admin: 09/28/22 05:29 Dose: 12 unit Insulin Detemir (Insulin Detemir 300 Unit/3 Ml Insuln.Pen) 10 unit SUBQ BID [facility] Last Admin: 09/28/22 08:11 Dose: 10 unit Levothyroxine Sodium (Levothyroxine Sodium 112 Mcg Tablet) 112 mcg PO QD@0630 [facility] Last Admin: 09/28/22 05:39 Dose: 112 mcg Losartan Potassium (Losartan Potassium 50 Mg Tablet) 100 mg PO QAM [facility] Last Admin: 09/28/22 08:08 Dose: 100 mg Methylprednisolone Sodium Succinate (Methylprednisolone Sod Succ Pf 40 Mg/Ml Vial) 40 mg IVP Q6H [facility] Last Admin: 09/28/22 05:25 Dose: 40 mg Nicotine (Nicotine 21 Mg Patch.Td24) 21 each TD QD PRN PRN Reason: NICOTINE WITHDRAWAL Ondansetron HCl (Ondansetron Pf 4 Mg/2 Ml Vial) 4 mg IV Q6H PRN PRN Reason: Nausea And Vomiting Pantoprazole Sodium (Pantoprazole Sodium 40 Mg Vial) 40 mg IV Q24H [facility] Last Admin: 09/27/22 15:31 Dose: Not Given Polyethylene Glycol (Polyethylene Glycol 3350 17 Gm Powder Packet) 17 gm PO QD PRN PRN Reason: Constipation Last Admin: 09/24/22 08:10 Dose: 17 gm Sodium Chloride (0.9 % Sodium Chloride 10 Ml Syringe - Saline Flush) 10 ml IV Q15M PRN PRN Reason: SALINE FLUSH Sodium Chloride (Sodium Chloride 0.9% Inhalation 3 Ml Neb) 3 ml IH TID@0900,1500,2300 [facility] Last Admin: 09/28/22 07:12 Dose: 3 ml Time Spent With Patient Time: Total time spent is greater than 50% in coordination of care (as documented) at patient's floor/unit and/or counseling patient:
[2022-09-28 09:16] LABS: Anion Gap 6.8; BUN Creatinine Ratio 36.8; Calcium 9.1 mg/dL (8.5-10.1); Carbon Dioxide 38.2 mmol/L (21.0-32.0); Chloride 101 mmol/L (98-107); Estimated GFR (African America >60 (>=60); Estimated GFR (Non-African Ame >60 (>=60); Glucose 208 mg/dL (74-106); Sodium 141 mmol/L (136-145)
--- NOTE | 2022-09-28 10:03 | CM.NOTE ---
Rounds made with Dr. Flores. Remains intubated on Vent.
--- NOTE | 2022-09-28 10:15 | XR_ITS ---
[address] [address] Patient Name: ERICA CHACON MRN: [id number] date: 1955 Sex: F Assigned Patient Location: ICU Current Patient Location: ICU Accession/Order Number: [id number] Exam Date: 09/28/2022 04:30 Report Date: 09/28/2022 07:46 At the request of: ALIS HEAD Procedure: XR chest 1V EXAMINATION: XR chest 1V HISTORY: Respiratory failure, on vent COMPARISON: XR chest 09/27/2022 FINDINGS: LUNGS: Endotracheal tube with tip 4.3 cm above the ayush. Persistent mild opacity within medial right lung apex. Mild haziness and stranding within lung bases. VASCULATURE: No increased pulmonary vasculature. PLEURA: Blunting of left lateral costophrenic angle suggestive of pleural fluid. No pneumothorax. CARDIAC: No cardiomegaly or cardiac silhouette abnormality. MEDIASTINUM: No visible mass or adenopathy. BONES: No fracture or visible bone lesion. OTHER: Endotracheal tube extends into stomach below level of imaging. IMPRESSION: 1. Mild-moderate bilateral pulmonary opacities; atelectasis versus infiltrates; slightly increased. 2. Suspect small left pleural effusion. 3. Stable endotracheal tube 4.3 cm above the ayush. Electronically authenticated by: HANDY KEATING Date: 09/28/2022 07:46
--- NOTE | 2022-09-28 10:33 | SWNOTE1 ---
Patient is still on vent. SW to assess once pt is extubated.
[2022-09-28] MEDS: BUDESONIDE 0.5 MG/2 ML AMPULE NEB IH ×2 (11:04→23:28)
[2022-09-28 11:47] LABS: Glucometer 187 mg/dL (74-106)
[2022-09-28] MEDS: LEVOFLOXACIN IN DEXTROSE 5 % 500 MG/100 ML PIGGYBACK 50 MG IV (11:48)
--- NOTE | 2022-09-28 14:22 | NUTR.NU ---
Patient remains intubated in the ICU. She is receiving Ensure for tube feeding at 60 mL/hr. This provides 1500 kcal and 54 g protein over 24 hours. She is on Propofol at 21.6 ml/hr providing 570 kcal over 24 hours. Noted plan for possible weaning. She has had elevated blood sugars but otherwise tolerating. Recommend patient transitions to Glucerna 1.5 at 30 ml/hr. Add Prostat 30 mL BID via feeding tube. This will provide 1280 kcal (1850 kcal with current sedation) and 89 g protein. Will adjust pending sedation and plan for weaning from vent. BUN [address] following
--- NOTE | 2022-09-28 14:26 | DIETREC ---
Nutrition Recommendations: Change tube feeding to Glucerna 1.5 at 30 ml/hr with Prostat 30 mL BID via tube
[2022-09-28] MEDS: PANTOPRAZOLE SODIUM 40 MG VIAL IV (14:49)
[2022-09-28 16:17] LABS: Glucometer 125 mg/dL (74-106)
[2022-09-28 22:20] LABS: Glucometer 187 mg/dL (74-106)
[2022-09-29] VITALS (73 sets, daily range): BP systolic 137–160; BP diastolic 65–98; PULSE 74–106; RESP 14–27; TEMP 36.4–37.2; O2SAT 82–98
[2022-09-29] MEDS: IPRATROPIUM/ALBUTEROL SULFATE 3 ML AMPUL.NEB IH ×6 (03:57→23:20)
--- NOTE | 2022-09-29 04:33 | RESP.RT ---
decreased fio2 to 40%
[2022-09-29 04:48] LABS: Basophils Absolute Auto 0.1 10^3/uL (0.0-0.1); Basophils Percent Auto 0.8 % (0.2-2.0); Hematocrit 44.5 % (36.0-48.0); Hemoglobin 14.1 g/dL (12.0-16.0); Immature Granulocytes Abs Auto 0.58 10^3/uL (0.00-0.03); Lymphocytes Absolute Auto 0.8 10^3/uL (1.2-3.8); Lymphocytes Percent Auto 5.4 % (20.5-60.0); Mean Corpuscular HGB Conc 31.7 g/dL (29.9-35.2); Mean Corpuscular Hemoglobin 30.8 pg (26.7-34.0); Mean Corpuscular Volume 97.2 fL (81.0-99.0); Mean Platelet Volume 10.7 fL (9.5-13.5); Monocytes Absolute Auto 1.1 10^3/uL (0.3-0.8); Monocytes Percent Auto 7.3 % (1.7-12.0); Neutrophils Absolute Auto 12.1 10^3/uL (1.4-6.5); Neutrophils Percent Auto 82.5 % (43.0-75.0); Platelet Count 178 10^3/uL (150-450); Red Blood Count 4.58 10^6/uL (4.20-5.40); Red Cell Distribution Width 13.6 % (11.0-15.0); White Blood Count 14.6 10^3/uL (4.0-11.0)
[2022-09-29 05:02] LABS: Alanine Aminotransferase 32 U/L (14-59); Albumin Level 2.1 g/dL (3.4-5.0); Alkaline Phosphatase 49 U/L (46-116); Anion Gap 6.8; Aspartate Amino Transferase 32 U/L (15-37); BUN Creatinine Ratio 42.9; Bilirubin Total 0.2 mg/dL (0.2-1.0); Calcium 9.1 mg/dL (8.5-10.1); Carbon Dioxide 36.9 mmol/L (21.0-32.0); Chloride 101 mmol/L (98-107); Estimated GFR (African America >60 (>=60); Estimated GFR (Non-African Ame >60 (>=60); Globulin 3.8 g/dL; Glucose 129 mg/dL (74-106); Potassium 4.7 mmol/L (3.5-5.1); Sodium 140 mmol/L (136-145); Total Protein 5.9 g/dL (6.4-8.2)
[2022-09-29 05:03] LABS: Albumin Globulin Ratio 0.6
[2022-09-29 06:09] LABS: PO2 ABG 75.7 mmHg (80.0-100.0); pH ABG 7.476 (7.350-7.450)
[2022-09-29 06:10] LABS: Allen Test POSITIVE (POSITIVE); BIPAP Pressure 16/5; Base Excess ABG 18.6 mmol/L (-2.0-2.0); Fractionated Inspired Oxygen 40 %; HCO3 ABG 42.1 mmol/L (22.0-26.0); O2 Mode BIPAP; Oxygen Saturation ABG 95.2 %
[2022-09-29 06:12] LABS: ABG PCO2 57.1 mmHg (35.0-45.0)
[2022-09-29] MEDS: PIPERACILLIN SODIUM/TAZOBACTAM 3.375 GM in 0.9 % SODIUM CHLORIDE 50 ML IV ×3 (06:22→21:11)
[2022-09-29] MEDS: LEVOTHYROXINE SODIUM 112 MCG TABLET PO (06:22)
--- NOTE | 2022-09-29 06:42 | PC.NURSE ---
Pt was on bipap - changed to NC 5lts per pt request
--- NOTE | 2022-09-29 07:04 | PM.PLPN ---
Progress Note: A&P Assessment and Plan (1) Acute exacerbation of bronchiectasis: Plan 1.? Acute exacerbation of bronchiectasis. Continues to have productive cough, but much improved from last week prior to intubation. Stressed again to patient that pulmonary toilet is a must. She states she had no saline nebs at home...I sent them in to [facility] through outpatient EMR this morning. Needs to use PEP at home. May need Vest device... 2.? Haemophilus influenzae pneumonia.? Beta-lactamase positive.? Cultured from BAL 09/23/2022.? On steroids which can cause leukocytosis. Tmax 99.9'F - BC repeated out of precaution yesterday, though antibiotics were changed. 3.? Acute hypercapnic respiratory failure.? Has post-hypercapnic metabolic alkalosis on top of respiratory acidosis. Patient did not sleep with BiPAP. Will only have BiPAP PRN tonight. Recheck ABG tomorrow. Unclear if NIV will be needed outpatient. 4.? Acute hypoxic respiratory failure secondary to #1 & #2.? Still requiring 5L/min O2. Baseline is RA. Now that she is off ventilator, will check CTA chest to evaluate for any other infiltrates, pulmonary emboli, mucus plugging, etc. that would explain her ongoing respiratory issues. Add humidity to O2. 5.? Acute exacerbation of COPD.? Continue bronchodilators. 6. Critical illness myopathy. Patient has weakness, especially in arms. PT/OT. Check CPK, aldolase. Discussed possible SNF/rehab when acceptable for discharge with patient & last evening. 7.? Multiple pulmonary nodules.? Stable outpatient. 8.? Tobacco abuse.? No smoking after discharge! Fall Risk Details Traylor Fall Scale Risk Level: Moderate Fall Risk Current Medications: Current Medications Albuterol/Ipratropium (Ipratropium/Albuterol Sulfate 3 Ml Ampul.Neb) 3 ml IH Q4H [facility] Aspirin (Aspirin 81 Mg Tablet.) 81 mg PO QD [facility] Last Admin: 09/28/22 08:06 Dose: 81 mg Budesonide (Budesonide 0.5 Mg/2 Ml Ampule Neb) 0.5 mg IH BID@1100,2300 [facility] Last Admin: 09/28/22 23:28 Dose: 0.5 mg Enoxaparin Sodium (Enoxaparin Sodium 40 Mg/0.4 Ml Syringe) 40 mg SUBQ QD@0800 [facility] Last Admin: 09/28/22 08:06 Dose: 40 mg Guaifenesin (Guaifenesin 200 Mg/Dextromethorphan 20 Mg 10 Ml Syrup) 10 ml PO Q6H PRN PRN Reason: Cough Hydralazine HCl (Hydralazine Hcl 20 Mg/Ml Vial) 10 mg IVP Q4H PRN PRN Reason: Hypertension Hydroxyzine Pamoate (Hydroxyzine Pamoate 25 Mg Capsule) 25 mg PO QID PRN PRN Reason: Anxiety Last Admin: 09/24/22 02:15 Dose: 25 mg Lactated Ringer's (Lactated Ringers) 1,000 mls @ 50 mls/hr IV .Q20H [facility] Last Admin: 09/28/22 22:23 Dose: 50 mls/hr Levofloxacin/Dextrose (Levaquin 500 Mg/100 Ml-D5w) 500 mg in 100 mls @ 100 mls/hr IV Q24H [facility] Last Infusion: 09/28/22 18:53 Dose: Infused Piperacillin Sod/Tazobactam (Sod 3.375 gm/ Sodium Chloride) 50 mls @ 12.5 mls/hr IV Q8H [facility] Last Admin: 09/29/22 06:22 Dose: 12.5 ml/hr, 12.5 mls/hr Insulin Aspart (Insulin Aspart 300 Unit/3 Ml Pen) 3 - 15 unit SUBQ Q6H [facility]; Protocol Last Admin: 09/28/22 23:36 Dose: 8 unit Insulin Detemir (Insulin Detemir 300 Unit/3 Ml Insuln.Pen) 10 unit SUBQ BID [facility] Last Admin: 09/28/22 22:27 Dose: 10 unit Levothyroxine Sodium (Levothyroxine Sodium 112 Mcg Tablet) 112 mcg PO QD@0630 [facility] Last Admin: 09/29/22 06:22 Dose: 112 mcg Losartan Potassium (Losartan Potassium 50 Mg Tablet) 100 mg PO QAM [facility] Last Admin: 09/28/22 08:08 Dose: 100 mg Methylprednisolone Sodium Succinate (Methylprednisolone Sod Succ Pf 40 Mg/Ml Vial) 40 mg IVP Q6H [facility] Last Admin: 09/28/22 23:42 Dose: 40 mg Nicotine (Nicotine 21 Mg Patch.Td24) 21 each TD QD PRN PRN Reason: NICOTINE WITHDRAWAL Ondansetron HCl (Ondansetron Pf 4 Mg/2 Ml Vial) 4 mg IV Q6H PRN PRN Reason: Nausea And Vomiting Pantoprazole Sodium (Pantoprazole Sodium 40 Mg Vial) 40 mg IV Q24H [facility] Last Admin: 09/28/22 14:49 Dose: 40 mg Polyethylene Glycol (Polyethylene Glycol 3350 17 Gm Powder Packet) 17 gm PO QD PRN PRN Reason: Constipation Last Admin: 09/24/22 08:10 Dose: 17 gm Sodium Chloride (0.9 % Sodium Chloride 10 Ml Syringe - Saline Flush) 10 ml IV Q15M PRN PRN Reason: SALINE FLUSH Sodium Chloride (Sodium Chloride 0.9% Inhalation 3 Ml Neb) 3 ml IH TID@0900,1500,2300 [facility] Last Admin: 09/28/22 23:28 Dose: 3 ml Subjective Subjective Interval history: Discussed with RN, RT. Patient extubated yesterday. Patient said she felt much better post-extubation than prior to intubation on 09/25/2022. Still has productive cough with significant amount of secretions, but they are thinned out and white compared to thick yellow-green last week. She is quite weak, takes effort to just lift something to her mouth. SpO2 tenuous on 5L/min, can drop to 86%, but patient is not taking deep breaths - with pursed lip breathing, SpO2 can improve to 92%. No further temp spikes. Exam Constitutional Vital Signs - 24 hr 09/28/22 07:19 09/28/22 08:08 09/28/22 08:49 Temperature Pulse Rate 88 Pulse Rate [Monitor] 87 Respiratory Rate 20 20 Blood Pressure 117/63 Blood Pressure [Left Arm] Pulse Oximetry 92 L Oxygen Delivery Method Oxygen Delivery Flow Rate Fraction of Inspired Oxygen 35 09/28/22 07:30 09/28/22 08:00 09/28/22 08:30 Temperature Pulse Rate 89 87 86 Pulse Rate [Monitor] Respiratory Rate Blood Pressure 123/60 H 117/63 124/61 H Blood Pressure [Left Arm] Pulse Oximetry 92 L 91 L 92 L Oxygen Delivery Method Oxygen Delivery Flow Rate Fraction of Inspired Oxygen 09/28/22 12:24 09/28/22 12:31 09/28/22 08:30 Temperature 98.6 F Pulse Rate 85 87 Pulse Rate [Monitor] 85 Respiratory Rate 20 20 Blood Pressure 124/61 H Blood Pressure [Left Arm] 145/65 H Pulse Oximetry 92 L Oxygen Delivery Method Oxygen Delivery Flow Rate Fraction of Inspired Oxygen 09/28/22 09:00 09/28/22 09:30 09/28/22 10:00 Temperature Pulse Rate 86 86 86 Pulse Rate [Monitor] Respiratory Rate Blood Pressure 123/63 H 119/63 116/58 L Blood Pressure [Left Arm] Pulse Oximetry 92 L 92 L 92 L Oxygen Delivery Method Oxygen Delivery Flow Rate Fraction of Inspired Oxygen 09/28/22 10:30 09/28/22 11:00 09/28/22 11:30 Temperature Pulse Rate 83 86 85 Pulse Rate [Monitor] Respiratory Rate Blood Pressure 112/56 L 113/57 L 122/57 H Blood Pressure [Left Arm] Pulse Oximetry 92 L 93 L 92 L Oxygen Delivery Method Oxygen Delivery Flow Rate Fraction of Inspired Oxygen 09/28/22 12:14 09/28/22 12:30 09/28/22 16:57 Temperature Pulse Rate 87 87 Pulse Rate [Monitor] Respiratory Rate 18 Blood Pressure 145/65 H 139/68 H Blood Pressure [Left Arm] Pulse Oximetry 93 L 93 L Oxygen Delivery Method Oxygen Delivery Flow Rate Fraction of Inspired Oxygen 09/28/22 12:30 09/28/22 13:00 09/28/22 13:30 Temperature 98.0 F Pulse Rate 88 95 H 107 H Pulse Rate [Monitor] Respiratory Rate 18 Blood Pressure 139/68 H 147/69 H 172/92 H Blood Pressure [Left Arm] Pulse Oximetry 92 L 89 L 89 L Oxygen Delivery Method Oxygen Delivery Flow Rate 5 Fraction of Inspired Oxygen 09/28/22 14:00 09/28/22 14:30 09/28/22 15:00 Temperature Pulse Rate 111 H 105 H 101 H Pulse Rate [Monitor] Respiratory Rate 24 Blood Pressure 149/82 H 135/78 H 130/75 H Blood Pressure [Left Arm] Pulse Oximetry 87 L 87 L 90 L Oxygen Delivery Method Oxygen Delivery Flow Rate Fraction of Inspired Oxygen 09/28/22 15:30 09/28/22 16:00 09/28/22 16:30 Temperature Pulse Rate 93 H 86 84 Pulse Rate [Monitor] Respiratory Rate 19 22 24 Blood Pressure 149/82 H 133/72 H 136/72 H Blood Pressure [Left Arm] Pulse Oximetry 90 L 91 L 90 L Oxygen Delivery Method Oxygen Delivery Flow Rate Fraction of Inspired Oxygen 09/28/22 17:00 09/28/22 18:33 09/28/22 19:45 Temperature Pulse Rate 86 83 85 Pulse Rate [Monitor] Respiratory Rate 21 19 Blood Pressure 142/74 H Blood Pressure [Left Arm] Pulse Oximetry 90 L 86 L Oxygen Delivery Method Nasal Cannula Oxygen Delivery Flow Rate 5 Fraction of Inspired Oxygen 09/28/22 19:47 09/28/22 20:44 09/28/22 20:48 Temperature Pulse Rate 103 H Pulse Rate [Monitor] 103 H Respiratory Rate Blood Pressure Blood Pressure [Left Arm] Pulse Oximetry 88 L Oxygen Delivery Method Nasal Cannula Oxygen Delivery Flow Rate 6 Fraction of Inspired Oxygen 09/28/22 17:00 09/28/22 17:30 09/28/22 18:00 Temperature 97.8 F Pulse Rate 86 83 83 Pulse Rate [Monitor] Respiratory Rate 21 24 30 H Blood Pressure 142/74 H 146/67 H 139/73 H Blood Pressure [Left Arm] Pulse Oximetry 91 L 89 L 88 L Oxygen Delivery Method Oxygen Delivery Flow Rate Fraction of Inspired Oxygen 09/28/22 18:30 09/28/22 19:00 09/28/22 19:16 Temperature Pulse Rate 84 87 88 Pulse Rate [Monitor] Respiratory Rate 31 H 24 21 Blood Pressure 140/71 H 147/72 H 151/69 H Blood Pressure [Left Arm] Pulse Oximetry 88 L 87 L Oxygen Delivery Method Oxygen Delivery Flow Rate Fraction of Inspired Oxygen 09/28/22 19:30 09/28/22 20:00 09/28/22 20:30 Temperature Pulse Rate 86 108 H 100 H Pulse Rate [Monitor] Respiratory Rate 27 H 32 H 19 Blood Pressure 150/83 H 150/78 H 165/82 H Blood Pressure [Left Arm] Pulse Oximetry 92 L 87 L 88 L Oxygen Delivery Method Oxygen Delivery Flow Rate Fraction of Inspired Oxygen 09/28/22 23:14 09/29/22 00:38 09/28/22 20:30 Temperature 98.6 F Pulse Rate 87 82 101 H Pulse Rate [Monitor] Respiratory Rate 18 Blood Pressure 165/82 H Blood Pressure [Left Arm] Pulse Oximetry 90 L 88 L Oxygen Delivery Method Oxygen Delivery Flow Rate Fraction of Inspired Oxygen 09/28/22 21:00 09/28/22 21:30 09/28/22 22:00 Temperature Pulse Rate 94 H 91 H 91 H Pulse Rate [Monitor] Respiratory Rate 22 24 19 Blood Pressure 124/76 H 139/86 H 164/88 H Blood Pressure [Left Arm] Pulse Oximetry 87 L 89 L 88 L Oxygen Delivery Method Oxygen Delivery Flow Rate Fraction of Inspired Oxygen 09/28/22 22:30 09/28/22 23:00 09/28/22 23:31 Temperature Pulse Rate 85 92 H 81 Pulse Rate [Monitor] Respiratory Rate 24 19 18 Blood Pressure 141/77 H 151/76 H 140/95 H Blood Pressure [Left Arm] Pulse Oximetry 88 L 86 L 96 Oxygen Delivery Method Oxygen Delivery Flow Rate Fraction of Inspired Oxygen 09/28/22 23:28 09/28/22 23:28 09/29/22 01:11 Temperature Pulse Rate 88 88 80 Pulse Rate [Monitor] Respiratory Rate 19 Blood Pressure Blood Pressure [Left Arm] Pulse Oximetry 95 95 96 Oxygen Delivery Method BIPAP Oxygen Delivery Flow Rate Fraction of Inspired Oxygen 50 50 09/29/22 02:04 09/29/22 04:00 09/28/22 23:31 Temperature Pulse Rate 76 84 Pulse Rate [Monitor] 81 Respiratory Rate 20 18 Blood Pressure 140/95 H Blood Pressure [Left Arm] Pulse Oximetry 96 96 Oxygen Delivery Method Oxygen Delivery Flow Rate Fraction of Inspired Oxygen 09/29/22 00:03 09/29/22 00:30 09/29/22 01:00 Temperature Pulse Rate 81 80 80 Pulse Rate [Monitor] Respiratory Rate 18 16 16 Blood Pressure Blood Pressure [Left Arm] Pulse Oximetry 96 96 95 Oxygen Delivery Method Oxygen Delivery Flow Rate Fraction of Inspired Oxygen 09/29/22 01:30 09/29/22 02:00 09/29/22 02:30 Temperature Pulse Rate 79 76 74 Pulse Rate [Monitor] Respiratory Rate 16 17 16 Blood Pressure Blood Pressure [Left Arm] Pulse Oximetry 95 96 97 Oxygen Delivery Method Oxygen Delivery Flow Rate Fraction of Inspired Oxygen 09/29/22 03:00 09/29/22 03:30 09/29/22 04:00 Temperature 98 F Pulse Rate 75 77 74 Pulse Rate [Monitor] Respiratory Rate 22 19 15 Blood Pressure Blood Pressure [Left Arm] 139/79 H Pulse Oximetry 97 96 97 Oxygen Delivery Method BIPAP Oxygen Delivery Flow Rate 5 Fraction of Inspired Oxygen 09/29/22 04:03 09/29/22 04:04 09/29/22 03:57 Temperature Pulse Rate 79 78 75 Pulse Rate [Monitor] Respiratory Rate 23 16 Blood Pressure 139/79 H Blood Pressure [Left Arm] Pulse Oximetry 96 95 98 Oxygen Delivery Method Oxygen Delivery Flow Rate Fraction of Inspired Oxygen 50 09/29/22 06:04 09/29/22 06:42 Temperature Pulse Rate 77 Pulse Rate [Monitor] Respiratory Rate Blood Pressure Blood Pressure [Left Arm] Pulse Oximetry 94 L Oxygen Delivery Method Nasal Cannula Oxygen Delivery Flow Rate 5 Fraction of Inspired Oxygen Other: Awake, reclining in bed having breathing treatment. HENMT Other: Wearing neb mask. Neck & C-Spine Other: Trachea midline Chest Chest: symmetrical chest wall rise Respiratory Other: Shallow breaths, but non-labored. Decreased crackles compared to yesterday. No wheezes. Cardio Rate: regular rate Rhythm: regular rhythm Other: RRR GI Common normals: soft to palpation and non-tender Other: [place] Extremity Other: No edema, +2/4 dorsalis pedis pulses Neuro Common normals: oriented x3 Sensorium/orientation: awake Other: Muscle weakness...took time and effort just to lift something up to her mouth. Psych Other: Pleasant affect
[2022-09-29] MEDS: SODIUM CHLORIDE 0.9% INHALATION 3 ML NEB IH ×3 (07:15→23:20)
[2022-09-29] MEDS: METHYLPREDNISOLONE SOD SUCC PF 40 MG/ML VIAL IVP ×4 (07:21→23:28)
--- NOTE | 2022-09-29 07:27 | CT_ITS ---
[address] [address] Patient Name: ERICA CHACON MRN: [id number] date: 1955 Sex: F Assigned Patient Location: ICU Current Patient Location: ICU Accession/Order Number: [id number] Exam Date: 09/29/2022 09:50 Report Date: 09/29/2022 12:16 At the request of: ALIS HEAD Procedure: CT angio chest EXAMINATION: CT angio chest HISTORY: Acute hypoxic respiratory failure COMPARISON: CT chest 09/01/2022 TECHNIQUE: Multi-planar CT images were created with IV contrast. Axial, Coronal, and Sagittal images. Dose reduction techniques were achieved by using automated exposure control and/or adjustment of mA and/or kV according to patient size and/or use of iterative reconstruction technique. 3-D reconstruction was performed on a separate workstation. FINDINGS: VASCULATURE: No pulmonary embolism or abnormal opacity. LUNGS: Moderate patchy infiltrates scattered within the lungs, greater within the upper lobes. Bilateral bronchiectasis with distal mucus filling. Stable 6 mm nodule within left lower lobe near the lateral costophrenic angle. PLEURA: No mass, effusion, or pneumothorax. GREGORY: No mass or adenopathy. MEDIASTINUM: No mass or adenopathy. CARDIAC: Trace amount of pericardial fluid. No appreciable cardiac enlargement. AORTA: No aneurysm or dissection. CHEST WALL: No mass or axillary adenopathy. BONES: No bone lesion or fracture. LIMITED ABDOMEN: No suspicious findings. Limited images of the upper abdomen. OTHER: Negative. IMPRESSION: 1. No pulmonary embolism. 2. Moderate infiltrates versus atelectasis probably involving the upper lobes bilaterally. 3. Bilateral mild to moderate bronchiectasis with peripheral mucus filling. 4. Stable 6 mm nodule lateral left lung base. 5. Trace amount of pericardial fluid; similar to 09/01/2022. Electronically authenticated by: HANDY KEATING Date: 09/29/2022 12:16
[2022-09-29] MEDS: ASPIRIN 81 MG TABLET.DR PO (08:08)
[2022-09-29] MEDS: LOSARTAN POTASSIUM 50 MG TABLET 100 MG PO (08:08)
[2022-09-29] MEDS: ENOXAPARIN SODIUM 40 MG/0.4 ML SYRINGE SUBQ (08:08)
[2022-09-29 08:30] LABS: Creatine Kinase 503 U/L (26-192)
--- NOTE | 2022-09-29 09:02 | P.PN_ITS ---
Progress Note: Subjective Subjective Interval history: No significant dyspnea postextubation. Pulmonology following and ordered CTA. Exam Constitutional Vital Signs - 24 hr 09/28/22 12:24 09/28/22 12:31 09/28/22 09:30 Temperature 98.6 F Pulse Rate 85 86 Pulse Rate [Monitor] 85 Respiratory Rate 20 20 Blood Pressure 119/63 Blood Pressure [Left Arm] 145/65 H Pulse Oximetry 92 L Oxygen Delivery Method Oxygen Delivery Flow Rate Fraction of Inspired Oxygen 09/28/22 10:00 09/28/22 10:30 09/28/22 11:00 Temperature Pulse Rate 86 83 86 Pulse Rate [Monitor] Respiratory Rate Blood Pressure 116/58 L 112/56 L 113/57 L Blood Pressure [Left Arm] Pulse Oximetry 92 L 92 L 93 L Oxygen Delivery Method Oxygen Delivery Flow Rate Fraction of Inspired Oxygen 09/28/22 11:30 09/28/22 12:14 09/28/22 12:30 Temperature Pulse Rate 85 87 87 Pulse Rate [Monitor] Respiratory Rate Blood Pressure 122/57 H 145/65 H 139/68 H Blood Pressure [Left Arm] Pulse Oximetry 92 L 93 L 93 L Oxygen Delivery Method Oxygen Delivery Flow Rate Fraction of Inspired Oxygen 09/28/22 16:57 09/28/22 12:30 09/28/22 13:00 Temperature 98.0 F Pulse Rate 88 95 H Pulse Rate [Monitor] Respiratory Rate 18 18 Blood Pressure 139/68 H 147/69 H Blood Pressure [Left Arm] Pulse Oximetry 92 L 89 L Oxygen Delivery Method Oxygen Delivery Flow Rate 5 Fraction of Inspired Oxygen 09/28/22 13:30 09/28/22 14:00 09/28/22 14:30 Temperature Pulse Rate 107 H 111 H 105 H Pulse Rate [Monitor] Respiratory Rate Blood Pressure 172/92 H 149/82 H 135/78 H Blood Pressure [Left Arm] Pulse Oximetry 89 L 87 L 87 L Oxygen Delivery Method Oxygen Delivery Flow Rate Fraction of Inspired Oxygen 09/28/22 15:00 09/28/22 15:30 09/28/22 16:00 Temperature Pulse Rate 101 H 93 H 86 Pulse Rate [Monitor] Respiratory Rate 24 19 22 Blood Pressure 130/75 H 149/82 H 133/72 H Blood Pressure [Left Arm] Pulse Oximetry 90 L 90 L 91 L Oxygen Delivery Method Oxygen Delivery Flow Rate Fraction of Inspired Oxygen 09/28/22 16:30 09/28/22 17:00 09/28/22 18:33 Temperature Pulse Rate 84 86 83 Pulse Rate [Monitor] Respiratory Rate 24 21 Blood Pressure 136/72 H 142/74 H Blood Pressure [Left Arm] Pulse Oximetry 90 L 90 L Oxygen Delivery Method Oxygen Delivery Flow Rate Fraction of Inspired Oxygen 09/28/22 19:45 09/28/22 19:47 09/28/22 20:44 Temperature Pulse Rate 85 103 H Pulse Rate [Monitor] Respiratory Rate 19 Blood Pressure Blood Pressure [Left Arm] Pulse Oximetry 86 L 88 L Oxygen Delivery Method Nasal Cannula Nasal Cannula Oxygen Delivery Flow Rate 5 6 Fraction of Inspired Oxygen 09/28/22 20:48 09/28/22 17:00 09/28/22 17:30 Temperature 97.8 F Pulse Rate 86 83 Pulse Rate [Monitor] 103 H Respiratory Rate 21 24 Blood Pressure 142/74 H 146/67 H Blood Pressure [Left Arm] Pulse Oximetry 91 L 89 L Oxygen Delivery Method Oxygen Delivery Flow Rate Fraction of Inspired Oxygen 09/28/22 18:00 09/28/22 18:30 09/28/22 19:00 Temperature Pulse Rate 83 84 87 Pulse Rate [Monitor] Respiratory Rate 30 H 31 H 24 Blood Pressure 139/73 H 140/71 H 147/72 H Blood Pressure [Left Arm] Pulse Oximetry 88 L 88 L 87 L Oxygen Delivery Method Oxygen Delivery Flow Rate Fraction of Inspired Oxygen 09/28/22 19:16 09/28/22 19:30 09/28/22 20:00 Temperature Pulse Rate 88 86 108 H Pulse Rate [Monitor] Respiratory Rate 21 27 H 32 H Blood Pressure 151/69 H 150/83 H 150/78 H Blood Pressure [Left Arm] Pulse Oximetry 92 L 87 L Oxygen Delivery Method Oxygen Delivery Flow Rate Fraction of Inspired Oxygen 09/28/22 20:30 09/28/22 23:14 09/29/22 00:38 Temperature Pulse Rate 100 H 87 82 Pulse Rate [Monitor] Respiratory Rate 19 Blood Pressure 165/82 H Blood Pressure [Left Arm] Pulse Oximetry 88 L 90 L Oxygen Delivery Method Oxygen Delivery Flow Rate Fraction of Inspired Oxygen 09/28/22 20:30 09/28/22 21:00 09/28/22 21:30 Temperature 98.6 F Pulse Rate 101 H 94 H 91 H Pulse Rate [Monitor] Respiratory Rate 18 22 24 Blood Pressure 165/82 H 124/76 H 139/86 H Blood Pressure [Left Arm] Pulse Oximetry 88 L 87 L 89 L Oxygen Delivery Method Oxygen Delivery Flow Rate Fraction of Inspired Oxygen 09/28/22 22:00 09/28/22 22:30 09/28/22 23:00 Temperature Pulse Rate 91 H 85 92 H Pulse Rate [Monitor] Respiratory Rate 19 24 19 Blood Pressure 164/88 H 141/77 H 151/76 H Blood Pressure [Left Arm] Pulse Oximetry 88 L 88 L 86 L Oxygen Delivery Method Oxygen Delivery Flow Rate Fraction of Inspired Oxygen 09/28/22 23:31 09/28/22 23:28 09/28/22 23:28 Temperature Pulse Rate 81 88 88 Pulse Rate [Monitor] Respiratory Rate 18 19 Blood Pressure 140/95 H Blood Pressure [Left Arm] Pulse Oximetry 96 95 95 Oxygen Delivery Method BIPAP Oxygen Delivery Flow Rate Fraction of Inspired Oxygen 50 50 09/29/22 01:11 09/29/22 02:04 09/29/22 04:00 Temperature Pulse Rate 80 76 Pulse Rate [Monitor] 81 Respiratory Rate 20 Blood Pressure Blood Pressure [Left Arm] Pulse Oximetry 96 96 Oxygen Delivery Method Oxygen Delivery Flow Rate Fraction of Inspired Oxygen 09/28/22 23:31 09/29/22 00:03 09/29/22 00:30 Temperature Pulse Rate 84 81 80 Pulse Rate [Monitor] Respiratory Rate 18 18 16 Blood Pressure 140/95 H Blood Pressure [Left Arm] Pulse Oximetry 96 96 96 Oxygen Delivery Method Oxygen Delivery Flow Rate Fraction of Inspired Oxygen 09/29/22 01:00 09/29/22 01:30 09/29/22 02:00 Temperature Pulse Rate 80 79 76 Pulse Rate [Monitor] Respiratory Rate 16 16 17 Blood Pressure Blood Pressure [Left Arm] Pulse Oximetry 95 95 96 Oxygen Delivery Method Oxygen Delivery Flow Rate Fraction of Inspired Oxygen 09/29/22 02:30 09/29/22 03:00 09/29/22 03:30 Temperature Pulse Rate 74 75 77 Pulse Rate [Monitor] Respiratory Rate 16 22 19 Blood Pressure Blood Pressure [Left Arm] Pulse Oximetry 97 97 96 Oxygen Delivery Method Oxygen Delivery Flow Rate Fraction of Inspired Oxygen 09/29/22 04:00 09/29/22 04:03 09/29/22 04:04 Temperature 98 F Pulse Rate 74 79 78 Pulse Rate [Monitor] Respiratory Rate 15 23 16 Blood Pressure 139/79 H Blood Pressure [Left Arm] 139/79 H Pulse Oximetry 97 96 95 Oxygen Delivery Method BIPAP Oxygen Delivery Flow Rate 5 Fraction of Inspired Oxygen 09/29/22 03:57 09/29/22 06:04 09/29/22 06:42 Temperature Pulse Rate 75 77 Pulse Rate [Monitor] Respiratory Rate Blood Pressure Blood Pressure [Left Arm] Pulse Oximetry 98 94 L Oxygen Delivery Method Nasal Cannula Oxygen Delivery Flow Rate 5 Fraction of Inspired Oxygen 50 09/29/22 07:18 Temperature Pulse Rate Pulse Rate [Monitor] Respiratory Rate Blood Pressure Blood Pressure [Left Arm] Pulse Oximetry Oxygen Delivery Method Nasal Cannula Oxygen Delivery Flow Rate 6 Fraction of Inspired Oxygen HENMT Common normals: normocephalic Chest Common normals: inspection of chest normal Respiratory Effort & inspection: tachypneic and labored (To me she definitely feels better than yesterday.); not able to speak in complete sentences and no audible wheezes Cardio Common normals: regular rate and regular rhythm GI Common normals: soft to palpation and non-tender Extremity Common normals: normal to inspection (Trace edema) Progress Note: Objective Labs Labs: Short CBC 09/29/22 Range/Units 03:54 WBC 14.6 H (4.0-11.0) 10^3/uL Hgb 14.1 (12.0-16.0) g/dL Hct 44.5 (36.0-48.0) % Plt Count 178 (150-450) 10^3/uL BMP 09/28/22 09/29/22 08:55 03:54 Sodium 141 140 Potassium 5.0 4.7 Chloride 101 101 Carbon Dioxide 38.2 H 36.9 H BUN 28.0 H 27.0 H Creatinine 0.76 0.63 Glucose 208 H 129 H Calcium 9.1 9.1 Cardiac Enzymes 09/29/22 Range/Units 05:54 Total Creatine Kinase 503 H* (26-192) U/L Liver Function 09/29/22 Range/Units 03:54 Total Bilirubin 0.2 (0.2-1.0) mg/dL AST 32 (15-37) U/L ALT 32 (14-59) U/L Alkaline Phosphatase 49 (46-116) U/L Albumin 2.1 L (3.4-5.0) g/dL Progress Note: A&P Assessment and Plan (1) Acute exacerbation of bronchiectasis: Plan Acute exacerbation of bronchiectasis With acute hypoxic respiratory failure With acute respiratory acidosis, secondary to haemophilus influenza that ended up with intubation.? Currently off ventilator-see work-up by pulmonology Leukocytosis today- level unchanged from previous day Hypertension, essential: blood pressure has been a little bit elevated so we will add Norvasc Hypothyroidism (acquired): cont with current meds Nutrition- off tube feeds since she has been extubated. Monitor glucoses Hyperglycemia- at this point would adjust the sliding scale and discontinue long-acting insulin although sugars have been improved patient still likely has a 2-3 more days stay in the hospital Fall Risk Details Fall Risk Details Holmes Fall Scale Risk Level: Moderate Fall Risk Current Medications: Current Medications Albuterol/Ipratropium (Ipratropium/Albuterol Sulfate 3 Ml Ampul.Neb) 3 ml IH Q4H [facility] Last Admin: 09/29/22 07:13 Dose: 3 ml Amlodipine Besylate (Amlodipine Besylate 5 Mg Tablet) 5 mg PO QD [facility] Aspirin (Aspirin 81 Mg Tablet.) 81 mg PO QD [facility] Last Admin: 09/29/22 08:08 Dose: 81 mg Budesonide (Budesonide 0.5 Mg/2 Ml Ampule Neb) 0.5 mg IH BID@1100,2300 [facility] Last Admin: 09/28/22 23:28 Dose: 0.5 mg Enoxaparin Sodium (Enoxaparin Sodium 40 Mg/0.4 Ml Syringe) 40 mg SUBQ QD@0800 [facility] Last Admin: 09/29/22 08:08 Dose: 40 mg Guaifenesin (Guaifenesin 200 Mg/Dextromethorphan 20 Mg 10 Ml Syrup) 10 ml PO Q6H PRN PRN Reason: Cough Hydralazine HCl (Hydralazine Hcl 20 Mg/Ml Vial) 10 mg IVP Q4H PRN PRN Reason: Hypertension Hydroxyzine Pamoate (Hydroxyzine Pamoate 25 Mg Capsule) 25 mg PO QID PRN PRN Reason: Anxiety Last Admin: 09/24/22 02:15 Dose: 25 mg Levofloxacin/Dextrose (Levaquin 500 Mg/100 Ml-D5w) 500 mg in 100 mls @ 100 mls/hr IV Q24H [facility] Last Infusion: 09/28/22 18:53 Dose: Infused Piperacillin Sod/Tazobactam (Sod 3.375 gm/ Sodium Chloride) 50 mls @ 12.5 mls/hr IV Q8H [facility] Last Admin: 09/29/22 06:22 Dose: 12.5 ml/hr, 12.5 mls/hr Insulin Aspart (Insulin Aspart 300 Unit/3 Ml Pen) 3 - 15 unit SUBQ [facility]; Protocol Last Admin: 09/29/22 07:24 Dose: Not Given Levothyroxine Sodium (Levothyroxine Sodium 112 Mcg Tablet) 112 mcg PO QD@0630 [facility] Last Admin: 09/29/22 06:22 Dose: 112 mcg Losartan Potassium (Losartan Potassium 50 Mg Tablet) 100 mg PO QAM [facility] Last Admin: 09/29/22 08:08 Dose: 100 mg Methylprednisolone Sodium Succinate (Methylprednisolone Sod Succ Pf 40 Mg/Ml Vial) 40 mg IVP Q6H [facility] Last Admin: 09/29/22 07:21 Dose: 40 mg Nicotine (Nicotine 21 Mg Patch.Td24) 21 each TD QD PRN PRN Reason: NICOTINE WITHDRAWAL Ondansetron HCl (Ondansetron Pf 4 Mg/2 Ml Vial) 4 mg IV Q6H PRN PRN Reason: Nausea And Vomiting Pantoprazole Sodium (Pantoprazole Sodium 40 Mg Vial) 40 mg IV Q24H [facility] Last Admin: 09/28/22 14:49 Dose: 40 mg Polyethylene Glycol (Polyethylene Glycol 3350 17 Gm Powder Packet) 17 gm PO QD PRN PRN Reason: Constipation Last Admin: 09/24/22 08:10 Dose: 17 gm Sodium Chloride (0.9 % Sodium Chloride 10 Ml Syringe - Saline Flush) 10 ml IV Q15M PRN PRN Reason: SALINE FLUSH Sodium Chloride (Sodium Chloride 0.9% Inhalation 3 Ml Neb) 3 ml IH TID@0900,1500,2300 [facility] Last Admin: 09/29/22 07:15 Dose: 3 ml Sodium Chloride (Sodium Chloride 0.65% Nasal [place]) 2 spray NS Q2H PRN PRN Reason: Dry Nasal Passages Time Spent With Patient Time: Total time spent is greater than 50% in coordination of care (as documented) at patient's floor/unit and/or counseling patient:
--- NOTE | 2022-09-29 09:13 | P.ON_ITS ---
Date of procedure: 09/29/22
--- NOTE | 2022-09-29 09:13 | W.PM.PROCNOT ---
Date of procedure: 09/29/22
[2022-09-29 09:29] LABS: Troponin I High Sensitivity 33.6 pg/mL (4.0-51.3)
[2022-09-29] MEDS: AMLODIPINE BESYLATE 5 MG TABLET PO (09:29)
--- NOTE | 2022-09-29 10:10 | SWNOTE1 ---
Pt is off the vent and on 5 liters. SW read pulmonology note, possible need for SNF? SW to check therapy notes and assess pt today.
--- NOTE | 2022-09-29 10:22 | CM.NOTE ---
Rounds made with Dr. Flores. No plan for discharge today.
[2022-09-29] MEDS: BUDESONIDE 0.5 MG/2 ML AMPULE NEB IH ×2 (10:58→23:20)
[2022-09-29] MEDS: INSULIN ASPART 300 UNIT/3 ML PEN SUBQ ×2 (11:31→23:32)
[2022-09-29 11:38] LABS: Glucometer 212 mg/dL (74-106)
[2022-09-29] MEDS: LEVOFLOXACIN IN DEXTROSE 5 % 500 MG/100 ML PIGGYBACK 100 MG IV (11:45)
[2022-09-29] MEDS: ACETAMINOPHEN 500 MG TABLET 1000 MG PO (13:01)
--- NOTE | 2022-09-29 13:37 | NUTR.NU ---
Patient extubated and started on Regular diet. She states appetite is fair. She was able to eat applesauce, 50% of breakfast sandwich and chocolate almond milk for breakfast and ordered tomato soup and grilled cheese for lunch. Will continue to monitor intake and tolerance. RD following
[2022-09-29] MEDS: PANTOPRAZOLE SODIUM 40 MG VIAL IV (14:56)
--- NOTE | 2022-09-29 15:19 | SWNOTE1 ---
SW attempted to see pt to discuss dc needs, but she was visiting with her grandson and his girlfriend.
--- NOTE | 2022-09-29 15:41 | SWNOTE1 ---
SW met with pt to discuss dc needs. Pt and SW spoke about rehab and that therapy is recommending she go to rehab for a short time to get stronger. Pt stated anything to get stronger. SW went over how medicare works in regards to SNF. Pt voices understanding. SW gave pt a star rating list from medicare.gov for her and her family to review. SW recommended her and family look over and decided on her top 3 facilities in case someone does not have an opening. Pt voiced understanding. SW to stop back in tomorrow and see what facility pt chooses. Pt has medicare, no precert.
[2022-09-29 16:13] LABS: Glucometer 136 mg/dL (74-106)
[2022-09-29 21:04] LABS: Glucometer 161 mg/dL (74-106)
[2022-09-29] MEDS: HYDROXYZINE PAMOATE 25 MG CAPSULE PO (23:29)
--- NOTE | 2022-09-29 23:59 | PC.NURSE ---
RT just placed patient on bipap 08/09 40%
[2022-09-30] VITALS (37 sets, daily range): BP systolic 132–146; BP diastolic 66–81; PULSE 76–101; RESP 14–27; TEMP 36.4–36.6; O2SAT 89–98
[2022-09-30] MEDS: IPRATROPIUM/ALBUTEROL SULFATE 3 ML AMPUL.NEB IH ×6 (03:50→23:02)
[2022-09-30 04:50] LABS: Basophils Absolute Auto 0.1 10^3/uL (0.0-0.1); Basophils Percent Auto 0.7 % (0.2-2.0); Hematocrit 45.6 % (36.0-48.0); Hemoglobin 14.8 g/dL (12.0-16.0); Immature Granulocytes Abs Auto 0.38 10^3/uL (0.00-0.03); Immature Granulocytes Pct Auto 3.7 % (0.0-0.5); Lymphocytes Absolute Auto 0.7 10^3/uL (1.2-3.8); Mean Corpuscular HGB Conc 32.5 g/dL (29.9-35.2); Mean Corpuscular Hemoglobin 30.9 pg (26.7-34.0); Mean Corpuscular Volume 95.2 fL (81.0-99.0); Mean Platelet Volume 9.9 fL (9.5-13.5); Monocytes Absolute Auto 0.6 10^3/uL (0.3-0.8); Monocytes Percent Auto 5.5 % (1.7-12.0); Neutrophils Absolute Auto 8.6 10^3/uL (1.4-6.5); Neutrophils Percent Auto 83.1 % (43.0-75.0); Platelet Count 184 10^3/uL (150-450); Red Blood Count 4.79 10^6/uL (4.20-5.40); Red Cell Distribution Width 13.4 % (11.0-15.0); White Blood Count 10.4 10^3/uL (4.0-11.0)
[2022-09-30 05:19] LABS: Alanine Aminotransferase 57 U/L (14-59); Albumin Globulin Ratio 0.6; Albumin Level 2.2 g/dL (3.4-5.0); Alkaline Phosphatase 50 U/L (46-116); Anion Gap 6.8; Aspartate Amino Transferase 44 U/L (15-37); BUN Creatinine Ratio 37.1; Bilirubin Total 0.3 mg/dL (0.2-1.0); Calcium 9.2 mg/dL (8.5-10.1); Carbon Dioxide 38.9 mmol/L (21.0-32.0); Chloride 100 mmol/L (98-107); Estimated GFR (African America >60 (>=60); Estimated GFR (Non-African Ame >60 (>=60); Globulin 3.8 g/dL; Glucose 182 mg/dL (74-106); Potassium 4.7 mmol/L (3.5-5.1); Sodium 141 mmol/L (136-145)
[2022-09-30] MEDS: PIPERACILLIN SODIUM/TAZOBACTAM 3.375 GM in 0.9 % SODIUM CHLORIDE 50 ML IV ×3 (05:36→21:40)
[2022-09-30] MEDS: LEVOTHYROXINE SODIUM 112 MCG TABLET PO (05:37)
[2022-09-30] MEDS: SODIUM CHLORIDE 0.65% NASAL SPRAY 2 SPRAY NS (05:41)
[2022-09-30 05:42] LABS: pH ABG 7.455 (7.350-7.450)
[2022-09-30 05:43] LABS: ABG PCO2 58.8 mmHg (35.0-45.0); PO2 ABG 77.4 mmHg (80.0-100.0)
[2022-09-30 05:44] LABS: Allen Test POSITIVE (POSITIVE); BIPAP Pressure 16/5; Base Excess ABG 17.5 mmol/L (-2.0-2.0); Fractionated Inspired Oxygen 40 %; HCO3 ABG 41.4 mmol/L (22.0-26.0); O2 Mode BIPAP; Puncture Site LEFT RADIAL
[2022-09-30] MEDS: METHYLPREDNISOLONE SOD SUCC PF 40 MG/ML VIAL IVP ×3 (06:56→17:31)
[2022-09-30 07:33] LABS: Glucometer 149 mg/dL (74-106)
[2022-09-30] MEDS: SODIUM CHLORIDE 0.9% INHALATION 3 ML NEB IH ×3 (07:56→23:02)
--- NOTE | 2022-09-30 07:59 | PM.PLPN ---
Progress Note: A&P Assessment and Plan (1) Acute exacerbation of bronchiectasis: Plan 1.? Acute exacerbation of bronchiectasis. Secretions are better controlled now. She is using her PEP as instructed. Saline nebs have arrived at home. Stressed need again to patient for a good pulmonary toilet. 2.? Haemophilus influenzae pneumonia.? Beta-lactamase positive.? Cultured from BAL 09/23/2022.? Clinically improving. 3.? Acute hypercapnic respiratory failure.? Slow improvement. 4.? Acute hypoxic respiratory failure secondary to #1 & #2.? Remains at 5-6L/min and still has SpO2 ~89%. Discussed that patient will need O2, possibly for an extended period of time given how ill she was. She voiced understanding and stated she would wear it as she feels her breathing has improved with it. 5.? Acute exacerbation of COPD.? Continue bronchodilators. 6. Critical illness myopathy. Continue PT/OT. Continues to voice that she feels weak. Patient is agreeable to SNF if she qualifies. 7.? Multiple pulmonary nodules.? Stable outpatient. 8.? Tobacco abuse.? DO NOT RESTART SMOKING! Fall Risk Details Traylor Fall Scale Risk Level: Moderate Fall Risk Current Medications: Current Medications Acetaminophen (Acetaminophen 500 Mg Tablet) 1,000 mg PO Q6H PRN PRN Reason: Pain Last Admin: 09/29/22 13:01 Dose: 1,000 mg Albuterol/Ipratropium (Ipratropium/Albuterol Sulfate 3 Ml Ampul.Minal) 3 ml IH Q4H [facility] Last Admin: 09/30/22 07:56 Dose: 3 ml Amlodipine Besylate (Amlodipine Besylate 5 Mg Tablet) 5 mg PO QD [facility] Last Admin: 09/29/22 09:29 Dose: 5 mg Aspirin (Aspirin 81 Mg Tablet.) 81 mg PO QD [facility] Last Admin: 09/29/22 08:08 Dose: 81 mg Budesonide (Budesonide 0.5 Mg/2 Ml Ampule Neb) 0.5 mg IH BID@1100,2300 [facility] Last Admin: 09/29/22 23:20 Dose: 0.5 mg Enoxaparin Sodium (Enoxaparin Sodium 40 Mg/0.4 Ml Syringe) 40 mg SUBQ QD@0800 [facility] Last Admin: 09/29/22 08:08 Dose: 40 mg Guaifenesin (Guaifenesin 200 Mg/Dextromethorphan 20 Mg 10 Ml Syrup) 10 ml PO Q6H PRN PRN Reason: Cough Last Admin: 09/29/22 21:12 Dose: 10 ml Hydralazine HCl (Hydralazine Hcl 20 Mg/Ml Vial) 10 mg IVP Q4H PRN PRN Reason: Hypertension Hydroxyzine Pamoate (Hydroxyzine Pamoate 25 Mg Capsule) 25 mg PO QID PRN PRN Reason: Anxiety Last Admin: 09/29/22 23:29 Dose: 25 mg Lactated Ringer's (Lactated Ringers) 1,000 mls @ 50 mls/hr IV .Q20H [facility] Last Admin: 09/29/22 17:06 Dose: Not Given Levofloxacin/Dextrose (Levaquin 500 Mg/100 Ml-D5w) 500 mg in 100 mls @ 100 mls/hr IV Q24H [facility] Last Infusion: 09/29/22 13:00 Dose: Infused Piperacillin Sod/Tazobactam (Sod 3.375 gm/ Sodium Chloride) 50 mls @ 12.5 mls/hr IV Q8H [facility] Last Infusion: 09/30/22 07:18 Dose: Infused Insulin Aspart (Insulin Aspart 300 Unit/3 Ml Pen) 3 - 15 unit SUBQ [facility]; Protocol Last Admin: 09/29/22 23:32 Dose: 4 unit Levothyroxine Sodium (Levothyroxine Sodium 112 Mcg Tablet) 112 mcg PO QD@0630 [facility] Last Admin: 09/30/22 05:37 Dose: 112 mcg Losartan Potassium (Losartan Potassium 50 Mg Tablet) 100 mg PO QAM [facility] Last Admin: 09/29/22 08:08 Dose: 100 mg Methylprednisolone Sodium Succinate (Methylprednisolone Sod Succ Pf 40 Mg/Ml Vial) 40 mg IVP Q6H [facility] Last Admin: 09/30/22 06:56 Dose: 40 mg Nicotine (Nicotine 21 Mg Patch.Td24) 21 each TD QD PRN PRN Reason: NICOTINE WITHDRAWAL Ondansetron HCl (Ondansetron Pf 4 Mg/2 Ml Vial) 4 mg IV Q6H PRN PRN Reason: Nausea And Vomiting Pantoprazole Sodium (Pantoprazole Sodium 40 Mg Vial) 40 mg IV Q24H [facility] Last Admin: 09/29/22 14:56 Dose: 40 mg Polyethylene Glycol (Polyethylene Glycol 3350 17 Gm Powder Packet) 17 gm PO QD PRN PRN Reason: Constipation Last Admin: 09/24/22 08:10 Dose: 17 gm Sodium Chloride (0.9 % Sodium Chloride 10 Ml Syringe - Saline Flush) 10 ml IV Q15M PRN PRN Reason: SALINE FLUSH Sodium Chloride (Sodium Chloride 0.9% Inhalation 3 Ml Neb) 3 ml IH TID@0900,1500,2300 [facility] Last Admin: 09/30/22 07:56 Dose: 3 ml Sodium Chloride (Sodium Chloride 0.65% Nasal Rulo) 2 spray NS Q2H PRN PRN Reason: Dry Nasal Passages Last Admin: 09/30/22 05:41 Dose: 2 spray Subjective Subjective Interval history: Patient appears much better today. Secretions are less; she states she is keeping up with the PEP in order to prevent this from happening again. She states her picked up the sodium chloride nebs I sent in to the pharmacy yesterday through my outpatient EMR. She wore BiPAP last night and slept a little on it, but voiced she really does not like it. Had long discussion about care at this point forward. She remains on 6L/min and she may require long-term supplemental O2. She also remains quite weak and is agreeable to rehab. Exam Constitutional Vital Signs - 24 hr 09/29/22 10:59 09/29/22 11:10 09/29/22 13:13 Temperature 98.9 F Pulse Rate Pulse Rate [Monitor] Respiratory Rate 16 Blood Pressure Blood Pressure [Left Arm] Pulse Oximetry Oxygen Delivery Method Nasal Cannula Oxygen Delivery Flow Rate 6 Fraction of Inspired Oxygen 87 09/29/22 08:03 09/29/22 08:30 09/29/22 09:02 Temperature Pulse Rate 89 89 86 Pulse Rate [Monitor] Respiratory Rate 24 20 22 Blood Pressure Blood Pressure [Left Arm] Pulse Oximetry 83 L 92 L 85 L Oxygen Delivery Method Oxygen Delivery Flow Rate Fraction of Inspired Oxygen 09/29/22 09:30 09/29/22 10:05 09/29/22 10:17 Temperature Pulse Rate 86 92 H 84 Pulse Rate [Monitor] Respiratory Rate 25 H 18 24 Blood Pressure 160/76 H Blood Pressure [Left Arm] Pulse Oximetry 91 L 87 L 87 L Oxygen Delivery Method Oxygen Delivery Flow Rate Fraction of Inspired Oxygen 09/29/22 10:17 09/29/22 10:17 09/29/22 10:30 Temperature Pulse Rate 85 86 93 H Pulse Rate [Monitor] Respiratory Rate 19 23 25 H Blood Pressure 160/76 H 153/76 H Blood Pressure [Left Arm] Pulse Oximetry 89 L 90 L 87 L Oxygen Delivery Method Oxygen Delivery Flow Rate Fraction of Inspired Oxygen 09/29/22 11:00 09/29/22 11:33 09/29/22 12:00 Temperature Pulse Rate 106 H Pulse Rate [Monitor] Respiratory Rate 22 Blood Pressure 152/72 H Blood Pressure [Left Arm] Pulse Oximetry 89 L 86 L Oxygen Delivery Method Oxygen Delivery Flow Rate Fraction of Inspired Oxygen 09/29/22 12:30 09/29/22 13:00 09/29/22 14:36 Temperature Pulse Rate 99 H 105 H Pulse Rate [Monitor] Respiratory Rate 27 H 19 Blood Pressure Blood Pressure [Left Arm] Pulse Oximetry 89 L 89 L 90 L Oxygen Delivery Method Nasal Cannula Oxygen Delivery Flow Rate 5 Fraction of Inspired Oxygen 09/29/22 15:09 09/29/22 15:13 09/29/22 13:30 Temperature Pulse Rate 91 H 102 H Pulse Rate [Monitor] 90 Respiratory Rate 21 Blood Pressure Blood Pressure [Left Arm] Pulse Oximetry 91 L Oxygen Delivery Method Oxygen Delivery Flow Rate Fraction of Inspired Oxygen 09/29/22 14:00 09/29/22 14:30 09/29/22 15:00 Temperature Pulse Rate 99 H 88 91 H Pulse Rate [Monitor] Respiratory Rate 22 20 23 Blood Pressure 137/65 H Blood Pressure [Left Arm] Pulse Oximetry 90 L 89 L 90 L Oxygen Delivery Method Oxygen Delivery Flow Rate Fraction of Inspired Oxygen 09/29/22 15:00 09/29/22 17:23 09/29/22 20:00 Temperature Pulse Rate 88 80 Pulse Rate [Monitor] 81 Respiratory Rate 19 Blood Pressure Blood Pressure [Left Arm] Pulse Oximetry 92 L Oxygen Delivery Method Oxygen Delivery Flow Rate Fraction of Inspired Oxygen 09/29/22 20:11 09/29/22 19:51 09/29/22 20:09 Temperature Pulse Rate 86 77 85 Pulse Rate [Monitor] Respiratory Rate 22 20 Blood Pressure Blood Pressure [Left Arm] Pulse Oximetry 92 L 93 L 92 L Oxygen Delivery Method Nasal Cannula Nasal Cannula Oxygen Delivery Flow Rate 6 6 Fraction of Inspired Oxygen 09/29/22 15:00 09/29/22 15:33 09/29/22 16:00 Temperature Pulse Rate 98 H 93 H 87 Pulse Rate [Monitor] Respiratory Rate 22 22 17 Blood Pressure 137/65 H Blood Pressure [Left Arm] Pulse Oximetry 94 L 89 L 90 L Oxygen Delivery Method Oxygen Delivery Flow Rate Fraction of Inspired Oxygen 09/29/22 16:30 09/29/22 17:00 09/29/22 17:30 Temperature Pulse Rate 85 85 80 Pulse Rate [Monitor] Respiratory Rate 23 27 H 26 H Blood Pressure Blood Pressure [Left Arm] Pulse Oximetry 90 L 92 L 90 L Oxygen Delivery Method Oxygen Delivery Flow Rate Fraction of Inspired Oxygen 09/29/22 18:00 09/29/22 18:30 09/29/22 19:00 Temperature Pulse Rate 82 78 81 Pulse Rate [Monitor] Respiratory Rate 20 24 20 Blood Pressure Blood Pressure [Left Arm] Pulse Oximetry 93 L 89 L 92 L Oxygen Delivery Method Oxygen Delivery Flow Rate Fraction of Inspired Oxygen 09/29/22 19:19 09/29/22 19:19 09/29/22 19:33 Temperature 97.6 F Pulse Rate 79 81 77 Pulse Rate [Monitor] Respiratory Rate 22 20 22 Blood Pressure 146/81 H Blood Pressure [Left Arm] Pulse Oximetry 91 L 91 L 92 L Oxygen Delivery Method Nasal Cannula Oxygen Delivery Flow Rate 6 Fraction of Inspired Oxygen 09/29/22 20:00 09/29/22 22:12 09/29/22 23:20 Temperature Pulse Rate 79 82 76 Pulse Rate [Monitor] Respiratory Rate 19 22 Blood Pressure Blood Pressure [Left Arm] Pulse Oximetry 94 L 91 L 93 L Oxygen Delivery Method Nasal Cannula Oxygen Delivery Flow Rate 6 Fraction of Inspired Oxygen 09/29/22 23:26 09/29/22 23:47 09/29/22 23:47 Temperature Pulse Rate 76 90 Pulse Rate [Monitor] 78 Respiratory Rate 22 Blood Pressure Blood Pressure [Left Arm] Pulse Oximetry 93 L 94 L Oxygen Delivery Method Nasal Cannula Oxygen Delivery Flow Rate 6 Fraction of Inspired Oxygen 09/29/22 23:47 09/29/22 23:55 09/30/22 02:06 Temperature 98.5 F Pulse Rate 87 86 77 Pulse Rate [Monitor] Respiratory Rate 18 Blood Pressure Blood Pressure [Left Arm] 158/84 H Pulse Oximetry 96 92 L Oxygen Delivery Method BIPAP Oxygen Delivery Flow Rate Fraction of Inspired Oxygen 40 09/30/22 03:50 09/30/22 03:53 09/30/22 04:15 Temperature Pulse Rate 78 78 81 Pulse Rate [Monitor] Respiratory Rate 20 Blood Pressure Blood Pressure [Left Arm] Pulse Oximetry 95 95 97 Oxygen Delivery Method BIPAP Oxygen Delivery Flow Rate Fraction of Inspired Oxygen 40 40 09/30/22 04:15 Temperature 97.8 F Pulse Rate 83 Pulse Rate [Monitor] Respiratory Rate 18 Blood Pressure Blood Pressure [Left Arm] 135/79 H Pulse Oximetry 97 Oxygen Delivery Method BIPAP Oxygen Delivery Flow Rate Fraction of Inspired Oxygen 40 Documenting provider has reviewed patient's vital signs: yes Common normals: no apparent distress General appearance: cooperative, comfortable and well kempt HENMT Other: Wearing nasal cannula Eye Common normals: PERRL Neck & C-Spine General: trachea midline Chest Chest: symmetrical chest wall rise Respiratory Other: Decreased crackles compared to yesterday, no wheezes. Cardio Rate: regular rate Rhythm: regular rhythm GI Common normals: soft to palpation and non-tender Extremity Common normals: no clubbing, cyanosis or edema Neuro Common normals: moves all extremities and no focal motor deficits Psych Attitude: calm and engaged (Very pleasant - smiling today, seems back to her normal self) Urinary Catheter Management Urinary Catheter Management Urethral: Cath placed during this visit: yes Urethral indwelling: Yes Reason for continuing: measure accurate output Insertion date: 09/25/22 Insertion time: 13:46
--- NOTE | 2022-09-30 08:32 | P.PN_ITS ---
Progress Note: Subjective Subjective Interval history: Looks much better today. Much more comfortable with her breathing. 6 L by nasal cannula placed Exam Constitutional Vital Signs - 24 hr 09/29/22 10:59 09/29/22 11:10 09/29/22 13:13 Temperature 98.9 F Pulse Rate Pulse Rate [Monitor] Respiratory Rate 16 Blood Pressure Blood Pressure [Left Arm] Pulse Oximetry Oxygen Delivery Method Nasal Cannula Oxygen Delivery Flow Rate 6 Fraction of Inspired Oxygen 87 09/29/22 09:02 09/29/22 09:30 09/29/22 10:05 Temperature Pulse Rate 86 86 92 H Pulse Rate [Monitor] Respiratory Rate 22 25 H 18 Blood Pressure Blood Pressure [Left Arm] Pulse Oximetry 85 L 91 L 87 L Oxygen Delivery Method Oxygen Delivery Flow Rate Fraction of Inspired Oxygen 09/29/22 10:17 09/29/22 10:17 09/29/22 10:17 Temperature Pulse Rate 84 85 86 Pulse Rate [Monitor] Respiratory Rate 24 19 23 Blood Pressure 160/76 H 160/76 H Blood Pressure [Left Arm] Pulse Oximetry 87 L 89 L 90 L Oxygen Delivery Method Oxygen Delivery Flow Rate Fraction of Inspired Oxygen 09/29/22 10:30 09/29/22 11:00 09/29/22 11:33 Temperature Pulse Rate 93 H Pulse Rate [Monitor] Respiratory Rate 25 H Blood Pressure 153/76 H 152/72 H Blood Pressure [Left Arm] Pulse Oximetry 87 L 89 L Oxygen Delivery Method Oxygen Delivery Flow Rate Fraction of Inspired Oxygen 09/29/22 12:00 09/29/22 12:30 09/29/22 13:00 Temperature Pulse Rate 106 H 99 H 105 H Pulse Rate [Monitor] Respiratory Rate 22 27 H 19 Blood Pressure Blood Pressure [Left Arm] Pulse Oximetry 86 L 89 L 89 L Oxygen Delivery Method Oxygen Delivery Flow Rate Fraction of Inspired Oxygen 09/29/22 14:36 09/29/22 15:09 09/29/22 15:13 Temperature Pulse Rate 91 H Pulse Rate [Monitor] 90 Respiratory Rate Blood Pressure Blood Pressure [Left Arm] Pulse Oximetry 90 L Oxygen Delivery Method Nasal Cannula Oxygen Delivery Flow Rate 5 Fraction of Inspired Oxygen 09/29/22 13:30 09/29/22 14:00 09/29/22 14:30 Temperature Pulse Rate 102 H 99 H 88 Pulse Rate [Monitor] Respiratory Rate 21 22 20 Blood Pressure Blood Pressure [Left Arm] Pulse Oximetry 91 L 90 L 89 L Oxygen Delivery Method Oxygen Delivery Flow Rate Fraction of Inspired Oxygen 09/29/22 15:00 09/29/22 15:00 09/29/22 17:23 Temperature Pulse Rate 91 H 88 80 Pulse Rate [Monitor] Respiratory Rate 23 19 Blood Pressure 137/65 H Blood Pressure [Left Arm] Pulse Oximetry 90 L 92 L Oxygen Delivery Method Oxygen Delivery Flow Rate Fraction of Inspired Oxygen 09/29/22 20:00 09/29/22 20:11 09/29/22 19:51 Temperature Pulse Rate 86 77 Pulse Rate [Monitor] 81 Respiratory Rate 22 Blood Pressure Blood Pressure [Left Arm] Pulse Oximetry 92 L 93 L Oxygen Delivery Method Nasal Cannula Oxygen Delivery Flow Rate 6 Fraction of Inspired Oxygen 09/29/22 20:09 09/29/22 15:00 09/29/22 15:33 Temperature Pulse Rate 85 98 H 93 H Pulse Rate [Monitor] Respiratory Rate 20 22 22 Blood Pressure 137/65 H Blood Pressure [Left Arm] Pulse Oximetry 92 L 94 L 89 L Oxygen Delivery Method Nasal Cannula Oxygen Delivery Flow Rate 6 Fraction of Inspired Oxygen 09/29/22 16:00 09/29/22 16:30 09/29/22 17:00 Temperature Pulse Rate 87 85 85 Pulse Rate [Monitor] Respiratory Rate 17 23 27 H Blood Pressure Blood Pressure [Left Arm] Pulse Oximetry 90 L 90 L 92 L Oxygen Delivery Method Oxygen Delivery Flow Rate Fraction of Inspired Oxygen 09/29/22 17:30 09/29/22 18:00 09/29/22 18:30 Temperature Pulse Rate 80 82 78 Pulse Rate [Monitor] Respiratory Rate 26 H 20 24 Blood Pressure Blood Pressure [Left Arm] Pulse Oximetry 90 L 93 L 89 L Oxygen Delivery Method Oxygen Delivery Flow Rate Fraction of Inspired Oxygen 09/29/22 19:00 09/29/22 19:19 09/29/22 19:19 Temperature 97.6 F Pulse Rate 81 79 81 Pulse Rate [Monitor] Respiratory Rate 20 22 20 Blood Pressure 146/81 H Blood Pressure [Left Arm] Pulse Oximetry 92 L 91 L 91 L Oxygen Delivery Method Nasal Cannula Oxygen Delivery Flow Rate 6 Fraction of Inspired Oxygen 09/29/22 19:33 09/29/22 20:00 09/29/22 22:12 Temperature Pulse Rate 77 79 82 Pulse Rate [Monitor] Respiratory Rate 22 19 Blood Pressure Blood Pressure [Left Arm] Pulse Oximetry 92 L 94 L 91 L Oxygen Delivery Method Oxygen Delivery Flow Rate Fraction of Inspired Oxygen 09/29/22 23:20 09/29/22 23:26 09/29/22 23:47 Temperature Pulse Rate 76 76 Pulse Rate [Monitor] 78 Respiratory Rate 22 22 Blood Pressure Blood Pressure [Left Arm] Pulse Oximetry 93 L 93 L Oxygen Delivery Method Nasal Cannula Nasal Cannula Oxygen Delivery Flow Rate 6 6 Fraction of Inspired Oxygen 09/29/22 23:47 09/29/22 23:47 09/29/22 23:55 Temperature 98.5 F Pulse Rate 90 87 86 Pulse Rate [Monitor] Respiratory Rate 18 Blood Pressure Blood Pressure [Left Arm] 158/84 H Pulse Oximetry 94 L 96 Oxygen Delivery Method BIPAP Oxygen Delivery Flow Rate Fraction of Inspired Oxygen 40 09/30/22 02:06 09/30/22 03:50 09/30/22 03:53 Temperature Pulse Rate 77 78 78 Pulse Rate [Monitor] Respiratory Rate 20 Blood Pressure Blood Pressure [Left Arm] Pulse Oximetry 92 L 95 95 Oxygen Delivery Method BIPAP Oxygen Delivery Flow Rate Fraction of Inspired Oxygen 40 40 09/30/22 04:15 09/30/22 04:15 09/30/22 07:55 Temperature 97.8 F Pulse Rate 81 83 Pulse Rate [Monitor] Respiratory Rate 18 Blood Pressure Blood Pressure [Left Arm] 135/79 H Pulse Oximetry 97 97 89 L Oxygen Delivery Method BIPAP Nasal Cannula Oxygen Delivery Flow Rate 6 Fraction of Inspired Oxygen 40 09/30/22 08:14 09/29/22 20:30 09/29/22 21:00 Temperature Pulse Rate 80 94 H 95 H Pulse Rate [Monitor] Respiratory Rate 20 19 Blood Pressure Blood Pressure [Left Arm] Pulse Oximetry 89 L 86 L Oxygen Delivery Method Oxygen Delivery Flow Rate Fraction of Inspired Oxygen 09/29/22 21:30 09/29/22 22:00 09/29/22 22:30 Temperature Pulse Rate 87 80 76 Pulse Rate [Monitor] Respiratory Rate 20 23 23 Blood Pressure Blood Pressure [Left Arm] Pulse Oximetry 85 L 89 L 91 L Oxygen Delivery Method Oxygen Delivery Flow Rate Fraction of Inspired Oxygen 09/29/22 23:00 09/29/22 23:30 09/29/22 23:35 Temperature Pulse Rate 79 78 78 Pulse Rate [Monitor] Respiratory Rate 16 24 21 Blood Pressure 150/81 H Blood Pressure [Left Arm] Pulse Oximetry 92 L 97 95 Oxygen Delivery Method Oxygen Delivery Flow Rate Fraction of Inspired Oxygen 09/29/22 23:35 09/30/22 00:02 09/30/22 00:30 Temperature Pulse Rate 75 89 80 Pulse Rate [Monitor] Respiratory Rate 20 21 20 Blood Pressure Blood Pressure [Left Arm] Pulse Oximetry 97 94 L 98 Oxygen Delivery Method Oxygen Delivery Flow Rate Fraction of Inspired Oxygen 09/30/22 01:00 09/30/22 01:30 09/30/22 02:00 Temperature Pulse Rate 85 78 79 Pulse Rate [Monitor] Respiratory Rate 24 18 22 Blood Pressure Blood Pressure [Left Arm] Pulse Oximetry 90 L 91 L 93 L Oxygen Delivery Method Oxygen Delivery Flow Rate Fraction of Inspired Oxygen 09/30/22 02:30 09/30/22 03:00 09/30/22 03:30 Temperature Pulse Rate 79 76 79 Pulse Rate [Monitor] Respiratory Rate 23 19 17 Blood Pressure Blood Pressure [Left Arm] Pulse Oximetry 96 96 95 Oxygen Delivery Method Oxygen Delivery Flow Rate Fraction of Inspired Oxygen 09/30/22 04:00 09/30/22 04:09 09/30/22 04:09 Temperature Pulse Rate 78 76 79 Pulse Rate [Monitor] Respiratory Rate 22 24 20 Blood Pressure 135/79 H Blood Pressure [Left Arm] Pulse Oximetry 96 89 L 97 Oxygen Delivery Method Oxygen Delivery Flow Rate Fraction of Inspired Oxygen 09/30/22 04:09 09/30/22 07:20 Temperature Pulse Rate 78 79 Pulse Rate [Monitor] Respiratory Rate 27 H 24 Blood Pressure 135/79 H 146/81 H Blood Pressure [Left Arm] Pulse Oximetry 97 92 L Oxygen Delivery Method Oxygen Delivery Flow Rate Fraction of Inspired Oxygen [facility] Common normals: moist oral mucous membranes Chest Common normals: inspection of chest normal Respiratory Common normals: normal respiratory effort (Minimal rhonchi) Cardio Common normals: regular rate and regular rhythm GI Common normals: Normal to inspection, nondistended, normoactive bowel sounds present, non-tender and no hepatosplenomegaly Extremity Common normals: normal to inspection Progress Note: Objective Labs Labs: Short CBC 09/30/22 Range/Units 04:01 WBC 10.4 (4.0-11.0) 10^3/uL Hgb 14.8 (12.0-16.0) g/dL Hct 45.6 (36.0-48.0) % Plt Count 184 (150-450) 10^3/uL BMP 09/30/22 04:01 Sodium 141 Potassium 4.7 Chloride 100 Carbon Dioxide 38.9 H BUN 26.0 H Creatinine 0.70 Glucose 182 H Calcium 9.2 Liver Function 09/30/22 Range/Units 04:01 Total Bilirubin 0.3 (0.2-1.0) mg/dL AST 44 H (15-37) U/L ALT 57 (14-59) U/L Alkaline Phosphatase 50 (46-116) U/L Albumin 2.2 L (3.4-5.0) g/dL Progress Note: A&P Assessment and Plan (1) Acute exacerbation of bronchiectasis: [place] [address] Progress Note Signed Patient: Akil Torres MR#: [id number] : 1955 Acct:[id number] Age/Sex: 67 / F ADM Date: 09/21/22 Loc: ICU 274-1 Date of Service:09/21/[address]: Radha Soni D.O. cc: ~ Progress Note: Subjective Subjective Interval history: No significant dyspnea postextubation.? Pulmonology following and ordered CTA. Exam Constitutional Vital Signs - 24 hr ? 09/29/2311:24 09/29/2311:31 09/28/2308:30 Temperature ? 98.6 F ? Pulse Rate ? 85 86 Pulse Rate [Monitor] 85 ? ? Respiratory Rate 20 20 ? Blood Pressure ? ? 119/63 Blood Pressure [Left Arm] ? 145/65 H ? Pulse Oximetry ? ? 92 L Oxygen Delivery Method ? ? ? Oxygen Delivery Flow Rate ? ? ? Fraction of Inspired Oxygen ? 09/28/2309:00 09/28/2309:30 09/28/2310:00 Temperature ? ? ? Pulse Rate 86 83 86 Pulse Rate [Monitor] ? ? ? Respiratory Rate ? ? ? Blood Pressure 116/58 L 112/56 L 113/57 L Blood Pressure [Left Arm] ? ? ? Pulse Oximetry 92 L 92 L 93 L Oxygen Delivery Method ? ? ? Oxygen Delivery Flow Rate ? ? ? Fraction of Inspired Oxygen ? 09/28/2310:30 09/29/2311:14 09/29/2311:30 Temperature ? ? ? Pulse Rate 85 87 87 Pulse Rate [Monitor] ? ? ? Respiratory Rate ? ? ? Blood Pressure 122/57 H 145/65 H 139/68 H Blood Pressure [Left Arm] ? ? ? Pulse Oximetry 92 L 93 L 93 L Oxygen Delivery Method ? ? ? Oxygen Delivery Flow Rate ? ? ? Fraction of Inspired Oxygen ? 09/29/2315:57 09/29/2311:30 09/28/2312:00 Temperature ? 98.0 F ? Pulse Rate ? 88 95 H Pulse Rate [Monitor] ? ? ? Respiratory Rate 18 18 ? Blood Pressure ? 139/68 H 147/69 H Blood Pressure [Left Arm] ? ? ? Pulse Oximetry ? 92 L 89 L Oxygen Delivery Method ? ? ? Oxygen Delivery Flow Rate ? 5 ? Fraction of Inspired Oxygen ? 09/28/2312:30 09/28/2313:00 09/28/2313:30 Temperature ? ? ? Pulse Rate 107 H 111 H 105 H Pulse Rate [Monitor] ? ? ? Respiratory Rate ? ? ? Blood Pressure 172/92 H 149/82 H 135/78 H Blood Pressure [Left Arm] ? ? ? Pulse Oximetry 89 L 87 L 87 L Oxygen Delivery Method ? ? ? Oxygen Delivery Flow Rate ? ? ? Fraction of Inspired Oxygen ? 09/28/2314:00 09/28/2314:30 09/29/2315:00 Temperature ? ? ? Pulse Rate 101 H 93 H 86 Pulse Rate [Monitor] ? ? ? Respiratory Rate 24 19 22 Blood Pressure 130/75 HB 149/82 H 133/72 H Blood Pressure [Left Arm] ? ? ? Pulse Oximetry 90 L 90 L 91 L Oxygen Delivery Method ? ? ? Oxygen Delivery Flow Rate ? ? ? Fraction of Inspired Oxygen ? 09/29/2315:30 09/28/2316:00 09/28/2317:33 Temperature ? ? ? Pulse Rate 84 86 83 Pulse Rate [Monitor] ? ? ? Respiratory Rate 24 21 ? Blood Pressure 136/72 H 142/74 H ? Blood Pressure [Left Arm] ? ? ? Pulse Oximetry 90 L 90 L ? Oxygen Delivery Method ? ? ? Oxygen Delivery Flow Rate ? ? ? Fraction of Inspired Oxygen ? 09/28/2318:45 09/28/2318:47 09/29/2319:44 Temperature ? ? ? Pulse Rate 85 ? 103 H Pulse Rate [Monitor] ? ? ? Respiratory Rate 19 ? ? Blood Pressure ? ? ? Blood Pressure [Left Arm] ? ? ? Pulse Oximetry 86 L 88 L ? Oxygen Delivery Method Nasal Cannula Nasal Cannula ? Oxygen Delivery Flow Rate 5 6 ? Fraction of Inspired Oxygen ? 09/29/2319:48 09/28/2316:00 09/28/2316:30 Temperature ? 97.8 F ? Pulse Rate ? 86 83 Pulse Rate [Monitor] 103 H ? ? Respiratory Rate ? 21 24 Blood Pressure ? 142/74 H 146/67 H Blood Pressure [Left Arm] ? ? ? Pulse Oximetry ? 91 L 89 L Oxygen Delivery Method ? ? ? Oxygen Delivery Flow Rate ? ? ? Fraction of Inspired Oxygen ? 09/28/2317:00 09/28/2317:30 09/28/2318:00 Temperature ? ? ? Pulse Rate 83 84 87 Pulse Rate [Monitor] ? ? ? Respiratory Rate 30 H 31 H 24 Blood Pressure 139/73 H 140/71 H 147/72 H Blood Pressure [Left Arm] ? ? ? Pulse Oximetry 88 L 88 L 87 L Oxygen Delivery Method ? ? ? Oxygen Delivery Flow Rate ? ? ? Fraction of Inspired Oxygen ? 09/28/2318:16 09/28/2318:30 09/29/2319:00 Temperature ? ? ? Pulse Rate 88 86 108 H Pulse Rate [Monitor] ? ? ? Respiratory Rate 21 27 H 32 H Blood Pressure 151/69 H 150/83 H 150/78 H Blood Pressure [Left Arm] ? ? ? Pulse Oximetry ? 92 L 87 L Oxygen Delivery Method ? ? ? Oxygen Delivery Flow Rate ? ? ? Fraction of Inspired Oxygen ? 09/29/2319:30 09/28/2322:14 09/29/2299:38 Temperature ? ? ? Pulse Rate 100 H 87 82 Pulse Rate [Monitor] ? ? ? Respiratory Rate 19 ? ? Blood Pressure 165/82 H ? ? Blood Pressure [Left Arm] ? ? ? Pulse Oximetry 88 L 90 L ? Oxygen Delivery Method ? ? ? Oxygen Delivery Flow Rate ? ? ? Fraction of Inspired Oxygen ? 09/29/2319:30 09/28/2320:00 09/28/2320:30 Temperature 98.6 F ? ? Pulse Rate 101 H 94 H 91 H Pulse Rate [Monitor] ? ? ? Respiratory Rate 18 22 24 Blood Pressure 165/82 H 124/76 H 139/86 H Blood Pressure [Left Arm] ? ? ? Pulse Oximetry 88 L 87 L 89 L Oxygen Delivery Method ? ? ? Oxygen Delivery Flow Rate ? ? ? Fraction of Inspired Oxygen ? 09/28/2321:00 09/28/2321:30 09/28/2322:00 Temperature ? ? ? Pulse Rate 91 H 85 92 H Pulse Rate [Monitor] ? ? ? Respiratory Rate 19 24 19 Blood Pressure 164/88 H 141/77 H 151/76 H Blood Pressure [Left Arm] ? ? ? Pulse Oximetry 88 L 88 L 86 L Oxygen Delivery Method ? ? ? Oxygen Delivery Flow Rate ? ? ? Fraction of Inspired Oxygen ? 09/28/2322:31 09/28/2322:28 09/28/2322:28 Temperature ? ? ? Pulse Rate 81 88 88 Pulse Rate [Monitor] ? ? ? Respiratory Rate 18 ? 19 Blood Pressure 140/95 H ? ? Blood Pressure [Left Arm] ? ? ? Pulse Oximetry 96 95 95 Oxygen Delivery Method ? ? BIPAP Oxygen Delivery Flow Rate ? ? ? Fraction of Inspired Oxygen ? 50 50 ? 09/29/2300:11 09/29/2301:04 09/30/2303:00 Temperature ? ? ? Pulse Rate 80 76 ? Pulse Rate [Monitor] ? ? 81 Respiratory Rate ? ? 20 Blood Pressure ? ? ? Blood Pressure [Left Arm] ? ? ? Pulse Oximetry 96 96 ? Oxygen Delivery Method ? ? ? Oxygen Delivery Flow Rate ? ? ? Fraction of Inspired Oxygen ? 09/28/2322:31 09/29/2299:03 09/29/2299:30 Temperature ? ? ? Pulse Rate 84 81 80 Pulse Rate [Monitor] ? ? ? Respiratory Rate 18 18 16 Blood Pressure 140/95 H ? ? Blood Pressure [Left Arm] ? ? ? Pulse Oximetry 96 96 96 Oxygen Delivery Method ? ? ? Oxygen Delivery Flow Rate ? ? ? Fraction of Inspired Oxygen ? 09/29/2300:00 09/29/2300:30 09/29/2301:00 Temperature ? ? ? Pulse Rate 80 79 76 Pulse Rate [Monitor] ? ? ? Respiratory Rate 16 16 17 Blood Pressure ? ? ? Blood Pressure [Left Arm] ? ? ? Pulse Oximetry 95 95 96 Oxygen Delivery Method ? ? ? Oxygen Delivery Flow Rate ? ? ? Fraction of Inspired Oxygen ? 09/29/2301:30 09/29/2302:00 09/29/2302:30 Temperature ? ? ? Pulse Rate 74 75 77 Pulse Rate [Monitor] ? ? ? Respiratory Rate 16 22 19 Blood Pressure ? ? ? Blood Pressure [Left Arm] ? ? ? Pulse Oximetry 97 97 96 Oxygen Delivery Method ? ? ? Oxygen Delivery Flow Rate ? ? ? Fraction of Inspired Oxygen ? 09/30/2303:00 09/30/2303:03 09/30/2303:04 Temperature 98 F ? ? Pulse Rate 74 79 78 Pulse Rate [Monitor] ? ? ? Respiratory Rate 15 23 16 Blood Pressure ? ? 139/79 H Blood Pressure [Left Arm] 139/79 H ? ? Pulse Oximetry 97 96 95 Oxygen Delivery Method BIPAP ? ? Oxygen Delivery Flow Rate 5 ? ? Fraction of Inspired Oxygen ? 09/29/2302:57 09/29/2305:04 09/29/2305:42 Temperature ? ? ? Pulse Rate 75 77 ? Pulse Rate [Monitor] ? ? ? Respiratory Rate ? ? ? Blood Pressure ? ? ? Blood Pressure [Left Arm] ? ? ? Pulse Oximetry 98 94 L ? Oxygen Delivery Method ? ? Nasal Cannula Oxygen Delivery Flow Rate ? ? 5 Fraction of Inspired Oxygen 50 ? ? ? 09/29/2306:18 Temperature ? Pulse Rate ? Pulse Rate [Monitor] ? Respiratory Rate ? Blood Pressure ? Blood Pressure [Left Arm] ? Pulse Oximetry ? Oxygen Delivery Method Nasal Cannula Oxygen Delivery Flow Rate 6 Fraction of Inspired Oxygen ? [facility]ENMT Common normals: normocephalic Chest Common normals: inspection of chest normal Respiratory Effort & inspection: tachypneic and labored (To me she definitely feels better than yesterday.); not able to speak in complete sentences and no audible wheezes Cardio Common normals: regular rate and regular rhythm GI Common normals: soft to palpation and non-tender Extremity Common normals: normal to inspection (Trace edema) Progress Note: Objective Labs Labs: Short CBC ? 09/29/22 Range/Units ? 03:54 ? WBC ?14.6 H ?(4.0-11.0)? 10^3/uL Hgb ?14.1 ?(12.0-16.0)? g/dL Hct ?44.5 ?(36.0-48.0)? % Plt Count ?178 ?(150-450)? 10^3/uL BMP ? 09/28/22 09/29/22 ? 08:55 03:54 Sodium ?141 ?140 Potassium ?5.0 ?4.7 Chloride ?101 ?101 Carbon Dioxide ?38.2 H ?36.9 H BUN ?28.0 H ?27.0 H Creatinine ?0.76 ?0.63 Glucose ?208 H ?129 H Calcium ?9.1 ?9.1 Cardiac Enzymes ? 09/29/22 Range/Units ? 05:54 ? Total Creatine Kinase ?503 H* ?(26-192)? U/L Liver Function ? 09/29/22 Range/Units ? 03:54 ? Total Bilirubin ?0.2 ?(0.2-1.0)? mg/dL AST ?32 ?(15-37)? U/L ALT ?32 ?(14-59)? U/L Alkaline Phosphatase ?49 ?(46-116)? U/L Albumin ?2.1 L ?(3.4-5.0)? g/dL Progress Note: A&P Assessment and Plan (1) Acute exacerbation of bronchiectasis: Plan Acute exacerbation of bronchiectasis With acute hypoxic respiratory failure With acute respiratory acidosis, secondary to haemophilus influenza that ended up with intubation.? 6 L and stable this morning. Try to wean that. Patient in need of rehab. Leukocytosis today- -Resolved, monitor daily Hypertension, essential: blood pressure has been a little bit elevated so we will added Norvasc Hypothyroidism (acquired): cont with current meds Nutrition- off tube feeds since she has been extubated.? Monitor glucosesAll- overall improving Hyperglycemia- at this point would adjust the sliding scale and discontinue long-acting insulin although sugars have been improved ?patient still likely has a 2-3 more days stay in the hospital Fall Risk Details Traylor Fall Scale Risk Level: Moderate Fall Risk Current Medications: Current Medications Acetaminophen (Acetaminophen 500 Mg Tablet) 1,000 mg PO Q6H PRN PRN Reason: Pain Last Admin: 09/29/22 13:01 Dose: 1,000 mg Albuterol/Ipratropium (Ipratropium/Albuterol Sulfate 3 Ml Ampul.Neb) 3 ml IH Q4H [facility] Last Admin: 09/30/22 07:56 Dose: 3 ml Amlodipine Besylate (Amlodipine Besylate 5 Mg Tablet) 5 mg PO QD [facility] Last Admin: 09/29/22 09:29 Dose: 5 mg Aspirin (Aspirin 81 Mg Tablet.Dr) 81 mg PO QD [facility] Last Admin: 09/29/22 08:08 Dose: 81 mg Budesonide (Budesonide 0.5 Mg/2 Ml Ampule Neb) 0.5 mg IH BID@1100,2300 [facility] Last Admin: 09/29/22 23:20 Dose: 0.5 mg Enoxaparin Sodium (Enoxaparin Sodium 40 Mg/0.4 Ml Syringe) 40 mg SUBQ QD@0800 [facility] Last Admin: 09/29/22 08:08 Dose: 40 mg Guaifenesin (Guaifenesin 200 Mg/Dextromethorphan 20 Mg 10 Ml Syrup) 10 ml PO Q6H PRN PRN Reason: Cough Last Admin: 09/29/22 21:12 Dose: 10 ml Hydralazine HCl (Hydralazine Hcl 20 Mg/Ml Vial) 10 mg IVP Q4H PRN PRN Reason: Hypertension Hydroxyzine Pamoate (Hydroxyzine Pamoate 25 Mg Capsule) 25 mg PO QID PRN PRN Reason: Anxiety Last Admin: 09/29/22 23:29 Dose: 25 mg Lactated Ringer's (Lactated Ringers) 1,000 mls @ 50 mls/hr IV .Q20H [facility] Last Admin: 09/29/22 17:06 Dose: Not Given Levofloxacin/Dextrose (Levaquin 500 Mg/100 Ml-D5w) 500 mg in 100 mls @ 100 mls/hr IV Q24H [facility] Last Infusion: 09/29/22 13:00 Dose: Infused Piperacillin Sod/Tazobactam (Sod 3.375 gm/ Sodium Chloride) 50 mls @ 12.5 mls/hr IV Q8H [facility] Last Infusion: 09/30/22 07:18 Dose: Infused Insulin Aspart (Insulin Aspart 300 Unit/3 Ml Pen) 3 - 15 unit SUBQ ACHS [facility]; Protocol Last Admin: 09/29/22 23:32 Dose: 4 unit Levothyroxine Sodium (Levothyroxine Sodium 112 Mcg Tablet) 112 mcg PO QD@0630 [facility] Last Admin: 09/30/22 05:37 Dose: 112 mcg Losartan Potassium (Losartan Potassium 50 Mg Tablet) 100 mg PO QAM [facility] Last Admin: 09/29/22 08:08 Dose: 100 mg Methylprednisolone Sodium Succinate (Methylprednisolone Sod Succ Pf 40 Mg/Ml Vial) 40 mg IVP Q6H [facility] Last Admin: 09/30/22 06:56 Dose: 40 mg Nicotine (Nicotine 21 Mg Patch.Td24) 21 each TD QD PRN PRN Reason: NICOTINE WITHDRAWAL Ondansetron HCl (Ondansetron Pf 4 Mg/2 Ml Vial) 4 mg IV Q6H PRN PRN Reason: Nausea And Vomiting Pantoprazole Sodium (Pantoprazole Sodium 40 Mg Vial) 40 mg IV Q24H [facility] Last Admin: 09/29/22 14:56 Dose: 40 mg Polyethylene Glycol (Polyethylene Glycol 3350 17 Gm Powder Packet) 17 gm PO QD PRN PRN Reason: Constipation Last Admin: 09/24/22 08:10 Dose: 17 gm Sodium Chloride (0.9 % Sodium Chloride 10 Ml Syringe - Saline Flush) 10 ml IV Q15M PRN PRN Reason: SALINE FLUSH Sodium Chloride (Sodium Chloride 0.9% Inhalation 3 Ml Neb) 3 ml IH TID@0900,1500,2300 [facility] Last Admin: 09/30/22 07:56 Dose: 3 ml Sodium Chloride (Sodium Chloride 0.65% Nasal [place]) 2 spray NS Q2H PRN PRN Reason: Dry Nasal Passages Last Admin: 09/30/22 05:41 Dose: 2 spray Time Spent With Patient Time: Total time spent is greater than 50% in coordination of care (as documented) at patient's floor/unit and/or counseling patient:
[2022-09-30] MEDS: LOSARTAN POTASSIUM 50 MG TABLET 100 MG PO (08:35)
[2022-09-30] MEDS: ENOXAPARIN SODIUM 40 MG/0.4 ML SYRINGE SUBQ (08:35)
[2022-09-30] MEDS: INSULIN ASPART 300 UNIT/3 ML PEN SUBQ ×4 (08:36→21:45)
[2022-09-30] MEDS: AMLODIPINE BESYLATE 5 MG TABLET PO (08:36)
[2022-09-30] MEDS: ASPIRIN 81 MG TABLET.DR PO (08:36)
--- NOTE | 2022-09-30 09:36 | CM.NOTE ---
Rounds made with Dr. Flores. Plan is for SNF at discharge. Currently reviewing provided star rating list provided. [employer] to follow for choices.
--- NOTE | 2022-09-30 09:38 | XR_ITS ---
The [address] [address] Patient Name: ERICA CHACON MRN: [id number] date: 1955 Sex: F Assigned Patient Location: ICU Current Patient Location: ICU Accession/Order Number: [id number] Exam Date: 09/30/2022 09:38 Report Date: 09/30/2022 10:09 At the request of: ALIS HEAD Procedure: XR chest 1V EXAMINATION: XR chest 1V HISTORY: Acute on chronic hypoxic respiratory COMPARISON: XR chest 09/28/2022, CTA chest 09/29/2022 FINDINGS: LUNGS: Mild haziness and stranding within lung bases. VASCULATURE: No increased pulmonary vasculature. PLEURA: Blunting of left lateral costal phrenic angle. No pneumothorax. CARDIAC: No cardiomegaly or cardiac silhouette abnormality. MEDIASTINUM: No visible mass or adenopathy. BONES: No fracture or visible bone lesion. OTHER: Negative. IMPRESSION: 1. Interval removal of endotracheal tube and nasogastric tube. 2. Mild bibasilar atelectasis versus infiltrates; not significantly changed. 3. Stable blunting of left lateral costal neck angle, likely chronic. No pleural fluid on yesterday's CT study. Electronically authenticated by: HANDY KEATING Date: 09/30/2022 10:09
--- NOTE | 2022-09-30 09:47 | SWNOTE1 ---
SW met with pt to find out where she wants to go for skilled. She had 3 choices. 1. [facility] 2. [facility] 3. [facility]. SW sent referral to [facility].
[2022-09-30 11:29] LABS: Glucometer 205 mg/dL (74-106)
[2022-09-30] MEDS: LEVOFLOXACIN IN DEXTROSE 5 % 500 MG/100 ML PIGGYBACK 100 MG IV (11:35)
[2022-09-30] MEDS: BUDESONIDE 0.5 MG/2 ML AMPULE NEB IH ×2 (11:56→23:02)
--- NOTE | 2022-09-30 12:53 | REH.PTDLY ---
Physical Therapy Daily Note PT Daily Note/Assess Start: 09/30/22 12:44 Freq: Status: Active Protocol: Document 09/30/22 12:44 JONATHAN (Rec: 09/30/22 12:53 JONATHAN [id number]) Physical Therapy Daily Note/Assessment Time In 11:02 Time Out 11:25 Pain Level 0 Pain Level 0 Subjective Pt denies pain, just easily short of breath. On 6 L of O2. Therapeutic Exercise Minutes (minutes) 13 Therapeutic Exercise Units 1 Therapeutic Exercise Treatment instructed in supine B LE exs 10x ea with pt performing exs at slow pace. Cues for pt to focus on breathing and take a break as she drops to 85% with exs. Takes pt 2 mins to return to 89-90%. SpO2 drops another time during supine exs /HOB is elevated. Performed B LE seated exs in chair 10x ea with exs including B LAQ, marching, hip abd, and HR, SpO2 stays at 90 % once sitting upright. Therapeutic Activity Minutes (minutes) 10 Therapeutic Activity Units 1 Bed Mobility Ability Minimum Assistance Chair Transfer Ability Minimum Assistance Therapeutic Activity Comments Pt requires Min A with supine to sit transfers. Sit to stand transfers Min A. Gait to chair with pt taking very small steps 4 feet. SpO2 drops to 84%, rises back up to 90% after 2 mins. Total Therapy Minutes 23 Total Physical Therapy Units 2 Daily Note Summary Pt motivated with exs and willing to perform. Pt fatigues easily and is limited by O2 sats dropping. Does better once she is sitting up in chair. Continue to progress as able.
--- NOTE | 2022-09-30 13:39 | SWNOTE1 ---
YAJAIRA spoke with Lisette at [facility] and they are not able to accept due to pt having to go into isolation precautions at [facility] due to a culture and sensitivity from 09/23. They do not have any private rooms for her. YAJAIRA spoke with pt and updated her, she would like to move on to her second choice of [facility]. YAJAIRA sent referral to [facility]. YAJAIRA also spoke with Dr. Lovelace to see if she needs bipap at intermediate, at this time she will not.
[2022-09-30] MEDS: PANTOPRAZOLE SODIUM 40 MG VIAL IV (14:30)
[2022-09-30 15:09] LABS: Aldolase 9.2 U/L (3.3-10.3)
--- NOTE | 2022-09-30 15:57 | PC.NURSE ---
pt aware of transfer to [facility] room 230. pt notified family of room number. taken to room via wheelchair and 6lnc. oriented to room and call light. assisted to side of bed. present. belongings transferred with pt.
[2022-09-30 16:17] LABS: Glucometer 150 mg/dL (74-106)
[2022-09-30] MEDS: LACTATED RINGER'S SOLUTION 1,000 ML 20 ML IV (16:24)
--- NOTE | 2022-09-30 16:26 | SWNOTE1 ---
SW spoke with Mode from [facility] and they are able to accept pt as long as she does not need NG again and she is off vapotherm and bipap and stable. Can only do up to 5 liters oxygen. SW to update nursing.
[2022-09-30 20:01] LABS: Glucometer 255 mg/dL (74-106)
[2022-10-01] VITALS (29 sets, daily range): BP systolic 113–135; BP diastolic 2–77; PULSE 72–105; RESP 16–24; TEMP 36.4–36.8; O2SAT 74–97
[2022-10-01] MEDS: METHYLPREDNISOLONE SOD SUCC PF 40 MG/ML VIAL IVP ×4 (00:19→22:38)
[2022-10-01] MEDS: IPRATROPIUM/ALBUTEROL SULFATE 3 ML AMPUL.NEB IH ×6 (03:37→23:07)
--- NOTE | 2022-10-01 03:41 | RESP.RT ---
Sp02 97% on 6L, titrated down to 5L
[2022-10-01 04:50] LABS: Basophils Percent Auto 0.3 % (0.2-2.0); Hematocrit 43.8 % (36.0-48.0); Hemoglobin 14.3 g/dL (12.0-16.0); Immature Granulocytes Pct Auto 2.2 % (0.0-0.5); Lymphocytes Absolute Auto 0.6 10^3/uL (1.2-3.8); Lymphocytes Percent Auto 6.2 % (20.5-60.0); Mean Corpuscular HGB Conc 32.6 g/dL (29.9-35.2); Mean Corpuscular Hemoglobin 30.9 pg (26.7-34.0); Mean Corpuscular Volume 94.6 fL (81.0-99.0); Mean Platelet Volume 9.6 fL (9.5-13.5); Monocytes Absolute Auto 0.5 10^3/uL (0.3-0.8); Monocytes Percent Auto 5.3 % (1.7-12.0); Neutrophils Absolute Auto 7.9 10^3/uL (1.4-6.5); Platelet Count 234 10^3/uL (150-450); Red Blood Count 4.63 10^6/uL (4.20-5.40); Red Cell Distribution Width 13.3 % (11.0-15.0); White Blood Count 9.2 10^3/uL (4.0-11.0)
[2022-10-01 05:08] LABS: Alanine Aminotransferase 91 U/L (14-59); Albumin Globulin Ratio 0.6; Albumin Level 2.3 g/dL (3.4-5.0); Alkaline Phosphatase 49 U/L (46-116); Anion Gap 8.4; Aspartate Amino Transferase 48 U/L (15-37); BUN Creatinine Ratio 41.8; Bilirubin Total 0.5 mg/dL (0.2-1.0); Calcium 9.1 mg/dL (8.5-10.1); Carbon Dioxide 35.9 mmol/L (21.0-32.0); Chloride 101 mmol/L (98-107); Estimated GFR (African America >60 (>=60); Estimated GFR (Non-African Ame >60 (>=60); Globulin 3.7 g/dL; Glucose 159 mg/dL (74-106); Potassium 4.3 mmol/L (3.5-5.1); Sodium 141 mmol/L (136-145)
--- NOTE | 2022-10-01 05:34 | RESP.RT ---
Sp02 on 5L 86%, titrated back up 6L and Sp02 increased to 89%
[2022-10-01] MEDS: PIPERACILLIN SODIUM/TAZOBACTAM 3.375 GM in 0.9 % SODIUM CHLORIDE 50 ML IV ×3 (06:01→22:37)
[2022-10-01] MEDS: SODIUM CHLORIDE 0.9% INHALATION 3 ML NEB IH ×3 (07:33→23:07)
[2022-10-01 08:09] LABS: pH ABG 7.468 (7.350-7.450)
[2022-10-01 08:10] LABS: ABG PCO2 53.1 mmHg (35.0-45.0); Allen Test POSITIVE (POSITIVE); HCO3 ABG 38.4 mmol/L (22.0-26.0); Oxygen Saturation ABG 93.8 %; PO2 ABG 67.3 mmHg (80.0-100.0)
[2022-10-01 08:11] LABS: O2 Mode NASAL CANNULA
[2022-10-01 08:13] LABS: Base Excess ABG 14.7 mmol/L (-2.0-2.0); Liters per Minute 6L
[2022-10-01 08:29] LABS: Glucometer 168 mg/dL (74-106)
[2022-10-01] MEDS: ENOXAPARIN SODIUM 40 MG/0.4 ML SYRINGE SUBQ (09:52)
[2022-10-01] MEDS: LOSARTAN POTASSIUM 50 MG TABLET 100 MG PO (09:52)
--- NOTE | 2022-10-01 09:52 | CM.NOTE ---
Rounds made with Dr. Flores. Oxygen at 6L/NC. No plan for discharge today.
[2022-10-01] MEDS: LEVOTHYROXINE SODIUM 112 MCG TABLET PO (09:53)
[2022-10-01] MEDS: AMLODIPINE BESYLATE 5 MG TABLET PO (09:53)
--- NOTE | 2022-10-01 10:07 | P.PN_ITS ---
Progress Note: Subjective Subjective Interval history: States is better than previous day Exam Constitutional Vital Signs - 24 hr 09/30/22 10:14 09/30/22 12:00 09/30/22 12:13 Temperature 97.6 F Pulse Rate 98 H 86 Pulse Rate [Monitor] Respiratory Rate Blood Pressure Pulse Oximetry Oxygen Delivery Method Oxygen Delivery Flow Rate 09/30/22 11:59 09/30/22 12:12 09/30/22 13:02 Temperature Pulse Rate 85 101 H Pulse Rate [Monitor] Respiratory Rate 22 Blood Pressure 132/66 H Pulse Oximetry 93 L 98 Oxygen Delivery Method Nasal Cannula Oxygen Delivery Flow Rate 6 09/30/22 14:55 09/30/22 16:01 09/30/22 16:19 Temperature Pulse Rate 96 H 98 H Pulse Rate [Monitor] Respiratory Rate Blood Pressure Pulse Oximetry 90 L Oxygen Delivery Method Nasal Cannula Oxygen Delivery Flow Rate 6 09/30/22 17:51 09/30/22 19:35 09/30/22 19:32 Temperature Pulse Rate 88 85 Pulse Rate [Monitor] Respiratory Rate 22 Blood Pressure Pulse Oximetry 92 L 92 L Oxygen Delivery Method Nasal Cannula Nasal Cannula Oxygen Delivery Flow Rate 6 6 09/30/22 19:49 09/30/22 19:49 09/30/22 22:01 Temperature Pulse Rate 94 H 80 Pulse Rate [Monitor] 94 H Respiratory Rate Blood Pressure Pulse Oximetry 92 L 94 L Oxygen Delivery Method Oxygen Delivery Flow Rate 09/30/22 19:58 09/30/22 22:00 09/30/22 23:02 Temperature Pulse Rate 97 H 77 79 Pulse Rate [Monitor] Respiratory Rate 20 Blood Pressure Pulse Oximetry 95 Oxygen Delivery Method Nasal Cannula Oxygen Delivery Flow Rate 6 10/01/22 00:29 10/01/22 02:48 10/01/22 03:37 Temperature Pulse Rate 86 77 72 Pulse Rate [Monitor] Respiratory Rate 16 Blood Pressure Pulse Oximetry 97 Oxygen Delivery Method Nasal Cannula Oxygen Delivery Flow Rate 6 10/01/22 03:55 10/01/22 03:58 10/01/22 04:38 Temperature Pulse Rate 77 83 Pulse Rate [Monitor] Respiratory Rate 22 Blood Pressure Pulse Oximetry 97 90 L Oxygen Delivery Method Nasal Cannula Nasal Cannula Oxygen Delivery Flow Rate 5 5 10/01/22 05:18 10/01/22 05:58 10/01/22 07:34 Temperature Pulse Rate 77 Pulse Rate [Monitor] Respiratory Rate Blood Pressure Pulse Oximetry 86 L 88 L Oxygen Delivery Method Nasal Cannula Nasal Cannula Oxygen Delivery Flow Rate 5 6 10/01/22 08:02 10/01/22 10:05 Temperature Pulse Rate 90 105 H Pulse Rate [Monitor] Respiratory Rate Blood Pressure Pulse Oximetry Oxygen Delivery Method Oxygen Delivery Flow Rate Chest Common normals: inspection of chest normal and palpation of chest normal Respiratory Common normals: normal respiratory effort and no retractions Effort & inspection: other (Very diminished breath sounds bilaterally) Progress Note: Objective Labs Labs: Short CBC 10/01/22 Range/Units 04:28 WBC 9.2 (4.0-11.0) 10^3/uL Hgb 14.3 (12.0-16.0) g/dL Hct 43.8 (36.0-48.0) % Plt Count 234 (150-450) 10^3/uL BMP 10/01/22 04:28 Sodium 141 Potassium 4.3 Chloride 101 Carbon Dioxide 35.9 H BUN 28.0 H Creatinine 0.67 Glucose 159 H Calcium 9.1 Liver Function 10/01/22 Range/Units 04:28 Total Bilirubin 0.5 (0.2-1.0) mg/dL AST 48 H (15-37) U/L ALT 91 H (14-59) U/L Alkaline Phosphatase 49 (46-116) U/L Albumin 2.3 L (3.4-5.0) g/dL Progress Note: A&P Assessment and Plan (1) Acute exacerbation of bronchiectasis: [place] [address] Progress Note Signed Patient: Akil Torres MR#: [id number] : 1955 Acct:[id number] Age/Sex: 67 / F ADM Date: 09/21/22 Loc: ICU 274-1 Date of Service:09/21/[address]: Radha Soni D.O. cc: ~ Progress Note: Subjective Subjective Interval history: No significant dyspnea postextubation.? Pulmonology following and ordered CTA. Exam Constitutional Vital Signs - 24 hr ? 09/29/2311:24 09/29/2311:31 09/28/2308:30 Temperature ? 98.6 F ? Pulse Rate ? 85 86 Pulse Rate [Monitor] 85 ? ? Respiratory Rate 20 20 ? Blood Pressure ? ? 119/63 Blood Pressure [Left Arm] ? 145/65 H ? Pulse Oximetry ? ? 92 L Oxygen Delivery Method ? ? ? Oxygen Delivery Flow Rate ? ? ? Fraction of Inspired Oxygen ? 09/28/2309:00 09/28/2309:30 09/28/2310:00 Temperature ? ? ? Pulse Rate 86 83 86 Pulse Rate [Monitor] ? ? ? Respiratory Rate ? ? ? Blood Pressure 116/58 L 112/56 L 113/57 L Blood Pressure [Left Arm] ? ? ? Pulse Oximetry 92 L 92 LB 93 L Oxygen Delivery Method ? ? ? Oxygen Delivery Flow Rate ? ? ? Fraction of Inspired Oxygen ? 09/28/2310:30 09/29/2311:14 09/29/2311:30 Temperature ? ? ? Pulse Rate 85 87 87 Pulse Rate [Monitor] ? ? ? Respiratory Rate ? ? ? Blood Pressure 122/57 H 145/65 H 139/68 H Blood Pressure [Left Arm] ? ? ? Pulse Oximetry 92 L 93 L 93 L Oxygen Delivery Method ? ? ? Oxygen Delivery Flow Rate ? ? ? Fraction of Inspired Oxygen ? 09/29/2315:57 09/29/2311:30 09/28/2312:00 Temperature ? 98.0 F ? Pulse Rate ? 88 95 H Pulse Rate [Monitor] ? ? ? Respiratory Rate 18 18 ? Blood Pressure ? 139/68 H 147/69 H Blood Pressure [Left Arm] ? ? ? Pulse Oximetry ? 92 L 89 L Oxygen Delivery Method ? ? ? Oxygen Delivery Flow Rate ? 5 ? Fraction of Inspired Oxygen ? 09/28/2312:30 09/28/2313:00 09/28/2313:30 Temperature ? ? ? Pulse Rate 107 H 111 H 105 H Pulse Rate [Monitor] ? ? ? Respiratory Rate ? ? ? Blood Pressure 172/92 H 149/82 H 135/78 H Blood Pressure [Left Arm] ? ? ? Pulse Oximetry 89 L 87 L 87 L Oxygen Delivery Method ? ? ? Oxygen Delivery Flow Rate ? ? ? Fraction of Inspired OxygenB ? 09/28/2314:00 09/28/2314:30 09/29/2315:00 Temperature ? ? ? Pulse Rate 101 H 93 H 86 Pulse Rate [Monitor] ? ? ? Respiratory Rate 24 19 22 Blood Pressure 130/75 H 149/82 H 133/72 H Blood Pressure [Left Arm] ? ? ? Pulse Oximetry 90 L 90 L 91 L Oxygen Delivery Method ? ? ? Oxygen Delivery Flow Rate ? ? ? Fraction of Inspired Oxygen ? 09/29/2315:30 09/28/2316:00 09/28/2317:33 Temperature ? ? ? Pulse Rate 84 86 83 Pulse Rate [Monitor] ? ? ? Respiratory Rate 24 21 ? Blood Pressure 136/72 H 142/74 H ? Blood Pressure [Left Arm] ? ? ? Pulse Oximetry 90 L 90 L ? Oxygen Delivery Method ? ? ? Oxygen Delivery Flow Rate ? ? ? Fraction of Inspired Oxygen ? 09/28/2318:45 09/28/2318:47 09/29/2319:44 Temperature ? ? ? Pulse Rate 85 ? 103 H Pulse Rate [Monitor] ? ? ? Respiratory RateB 19 ? ? Blood Pressure ? ? ? Blood Pressure [Left Arm] ? ? ? Pulse Oximetry 86 L 88 L ? Oxygen Delivery Method Nasal Cannula Nasal Cannula ? Oxygen Delivery Flow Rate 5 6 ? Fraction of Inspired Oxygen ? 09/29/2319:48 09/28/2316:00 09/28/2316:30 Temperature ? 97.8 F ? Pulse Rate ? 86 83 Pulse Rate [Monitor] 103 H ? ? Respiratory Rate ? 21 24 Blood Pressure ? 142/74 H 146/67 H Blood Pressure [Left Arm] ? ? ? Pulse Oximetry ? 91 L 89 L Oxygen Delivery Method ? ? ? Oxygen Delivery Flow Rate ? ? ? Fraction of Inspired Oxygen ? 09/28/2317:00 09/28/2317:30 09/28/2318:00 Temperature ? ? ? Pulse Rate 83 84 87 Pulse Rate [Monitor] ? ? ? Respiratory Rate 30 H 31 H 24 Blood Pressure 139/73 H 140/71 H 147/72 H Blood Pressure [Left Arm] ? ? ? Pulse Oximetry 88 L 88 L 87 L Oxygen Delivery Method ? ? ? Oxygen Delivery Flow Rate ? ? ? Fraction of Inspired Oxygen ? 09/28/2318:16 09/28/2318:30 09/29/2319:00 Temperature ? ? ? Pulse Rate 88 86 108 H Pulse Rate [Monitor] ? ? ? Respiratory Rate 21 27 H 32 H Blood Pressure 151/69 H 150/83 H 150/78 H Blood Pressure [Left Arm] ? ? ? Pulse Oximetry ? 92 L 87 L Oxygen Delivery Method ? ? ? Oxygen Delivery Flow Rate ? ? ? Fraction of Inspired Oxygen ? 09/29/2319:30 09/28/2322:14 09/29/2299:38 Temperature ? ? ? Pulse Rate 100 H 87 82 Pulse Rate [Monitor] ? ? ? Respiratory Rate 19 ? ? Blood Pressure 165/82 H ? ? Blood Pressure [Left Arm] ? ? ? Pulse Oximetry 88 L 90 L ? Oxygen Delivery Method ? ? ? Oxygen Delivery Flow Rate ? ? ? Fraction of Inspired Oxygen ? 09/29/2319:30 09/28/2320:00 09/28/2320:30 Temperature 98.6 F ? ? Pulse Rate 101 H 94 H 91 H Pulse Rate [Monitor] ? ? ? Respiratory Rate 18 22 24 Blood Pressure 165/82 H 124/76 H 139/86 H Blood Pressure [Left Arm] ? ? ? Pulse Oximetry 88 L 87 L 89 L Oxygen Delivery Method ? ? ? Oxygen Delivery Flow Rate ? ? ? Fraction of Inspired Oxygen ? 09/28/2321:00 09/28/2321:30 09/28/2322:00 Temperature ? ? ? Pulse Rate 91 H 85 92 H Pulse Rate [Monitor] ? ? ? Respiratory Rate 19 24 19 Blood Pressure 164/88 H 141/77 H 151/76 H Blood Pressure [Left Arm] ? ? ? Pulse Oximetry 88 L 88 L 86 L Oxygen Delivery Method ? ? ? Oxygen Delivery Flow Rate ? ? ? Fraction of Inspired Oxygen ? 09/28/2322:31 09/28/2322:28 09/28/2322:28 Temperature ? ? ? Pulse Rate 81 88 88 Pulse Rate [Monitor] ? ? ? Respiratory Rate 18 ? 19 Blood Pressure 140/95 H ? ? Blood Pressure [Left Arm] ? ? ? Pulse Oximetry 96 95 95 Oxygen Delivery Method ? ? BIPAP Oxygen Delivery Flow Rate ? ? ? Fraction of Inspired Oxygen ? 50 50 ? 09/29/2300:11 09/29/2301:04 09/30/2303:00 Temperature ? ? ? Pulse Rate 80 76 ? Pulse Rate [Monitor] ? ? 81 Respiratory Rate ? ? 20 Blood Pressure ? ? ? Blood Pressure [Left Arm] ? ? ? Pulse Oximetry 96 96 ? Oxygen Delivery Method ? ? ? Oxygen Delivery Flow Rate ? ? ? Fraction of Inspired Oxygen ? 09/28/2322:31 09/29/2299:03 09/29/2299:30 Temperature ? ? ? Pulse Rate 84 81 80 Pulse Rate [Monitor] ? ? ? Respiratory Rate 18 18 16 Blood Pressure 140/95 H ? ? Blood Pressure [Left Arm] ? ? ? Pulse Oximetry 96 96 96 Oxygen Delivery Method ? ? ? Oxygen Delivery Flow Rate ? ? ? Fraction of Inspired Oxygen ? 09/29/2300:00 09/29/2300:30 09/29/2301:00 Temperature ? ? ? Pulse Rate 80 79 76 Pulse Rate [Monitor] ? ? ? Respiratory Rate 16 16 17 Blood Pressure ? ? ? Blood Pressure [Left Arm] ? ? ? Pulse Oximetry 95 95 96 Oxygen Delivery Method ? ? ? Oxygen Delivery Flow Rate ? ? ? Fraction of Inspired Oxygen ? 09/29/2301:30 09/29/2302:00 09/29/2302:30 Temperature ? ? ? Pulse Rate 74 75 77 Pulse Rate [Monitor] ? ? ? Respiratory Rate 16 22 19 Blood Pressure ? ? ? Blood Pressure [Left Arm] ? ? ? Pulse Oximetry 97 97 96 Oxygen Delivery Method ? ? ? Oxygen Delivery Flow Rate ? ? ? Fraction of Inspired Oxygen ? 09/30/2303:00 09/30/2303:03 09/30/2303:04 Temperature 98 F ? ? Pulse Rate 74 79 78 Pulse Rate [Monitor] ? ? ? Respiratory Rate 15 23 16 Blood Pressure ? ? 139/79 H Blood Pressure [Left Arm] 139/79 H ? ? Pulse Oximetry 97 96 95 Oxygen Delivery Method BIPAP ? ? D Oxygen Delivery Flow Rate 5 ? ? Fraction of Inspired Oxygen ? 09/29/2302:57 09/29/2305:04 09/29/2305:42 Temperature ? ? ? Pulse Rate 75 77 ? Pulse Rate [Monitor] ? ? ? Respiratory Rate ? ? ? Blood Pressure ? ? ? Blood Pressure [Left Arm] ? ? ? Pulse Oximetry 98 94 L ? Oxygen Delivery Method ? ? Nasal Cannula Oxygen Delivery Flow Rate ? ? 5 Fraction of Inspired OxygenB 50 ? ? ? 09/29/2306:18 Temperature ? Pulse Rate ? Pulse Rate [Monitor] ? Respiratory Rate ? Blood Pressure ? Blood Pressure [Left Arm] ? Pulse Oximetry ? Oxygen Delivery Method Nasal Cannula Oxygen Delivery Flow Rate 6 Fraction of Inspired Oxygen ? Progress Note: Objective Labs Labs: Short CBC ? 09/29/22 Range/Units ? 03:54 ? WBC ?14.6 H ?(4.0-11.0)? 10^3/uL Hgb ?14.1 ?(12.0-16.0)? g/dL Hct ?44.5 ?(36.0-48.0)? % Plt Count ?178 ?(150-450)? 10^3/uL BMP ? 09/28/22 09/29/22 ? 08:55 03:54 Sodium ?141 ?140 Potassium ?5.0 ?4.7 Chloride ?101 ?101 Carbon Dioxide ?38.2 H ?36.9 H BUN ?28.0 H ?27.0 H Creatinine ?0.76 ?0.63 Glucose ?208 H ?129 H Calcium ?9.1 ?9.1 Cardiac Enzymes ? 09/29/22 Range/Units ? 05:54 ? Total Creatine Kinase ?503 H* ?(26-192)? U/L Liver Function ? 09/29/22 Range/Units ? 03:54 ? Total Bilirubin ?0.2 ?(0.2-1.0)? mg/dL AST ?32 ?(15-37)? U/L ALT ?32 ?(14-59)? U/L Alkaline Phosphatase ?49 ?(46-116)? U/L Albumin ?2.1 L ?(3.4-5.0)? g/dL Progress Note: A&P Assessment and Plan (1) Acute exacerbation of bronchiectasis: Plan Acute exacerbation of bronchiectasis With acute hypoxic respiratory failure With acute respiratory acidosis, secondary to haemophilus influenza that ended up with intubation.? 6 L and stable this morning. Try to wean that. Patient in need of rehab.-Still on 6 L Leukocytosis today- -Resolved, monitor daily Hypertension, essential: blood pressure has been a little bit elevated so we will added Norvasc Hypothyroidism (acquired): cont with current meds Nutrition- off tube feeds since she has been extubated.? Monitor glucosesAll- overall improving Hyperglycemia- at this point would adjust the sliding scale and discontinue long-acting insulin although sugars have been improved ?patient still likely has a 2-3 more days stay in the hospital Fall Risk Details Traylor Fall Scale Risk Level: Moderate Fall Risk Current Medications: Current Medications Acetaminophen (Acetaminophen 500 Mg Tablet) 1,000 mg PO Q6H PRN PRN Reason: Pain Last Admin: 09/29/22 13:01 Dose: 1,000 mg Albuterol/Ipratropium (Ipratropium/Albuterol Sulfate 3 Ml Ampul.Neb) 3 ml IH Q4H [facility] Last Admin: 10/01/22 07:32 Dose: 3 ml Amlodipine Besylate (Amlodipine Besylate 5 Mg Tablet) 5 mg PO QD [facility] Last Admin: 10/01/22 09:53 Dose: 5 mg Aspirin (Aspirin 81 Mg Tablet.) 81 mg PO QD [facility] Last Admin: 09/30/22 08:36 Dose: 81 mg Budesonide (Budesonide 0.5 Mg/2 Ml Ampule Neb) 0.5 mg IH BID@1100,2300 [facility] Last Admin: 09/30/22 23:02 Dose: 0.5 mg Enoxaparin Sodium (Enoxaparin Sodium 40 Mg/0.4 Ml Syringe) 40 mg SUBQ QD@0800 [facility] Last Admin: 10/01/22 09:52 Dose: 40 mg Guaifenesin (Guaifenesin 200 Mg/Dextromethorphan 20 Mg 10 Ml Syrup) 10 ml PO Q6H PRN PRN Reason: Cough Last Admin: 09/30/22 21:44 Dose: 10 ml Hydralazine HCl (Hydralazine Hcl 20 Mg/Ml Vial) 10 mg IVP Q4H PRN PRN Reason: Hypertension Hydroxyzine Pamoate (Hydroxyzine Pamoate 25 Mg Capsule) 25 mg PO QID PRN PRN Reason: Anxiety Last Admin: 09/29/22 23:29 Dose: 25 mg Lactated Ringer's (Lactated Ringers) 1,000 mls @ 50 mls/hr IV .Q20H [facility] Last Admin: 09/30/22 16:24 Dose: 20 mls/hr Levofloxacin/Dextrose (Levaquin 500 Mg/100 Ml-D5w) 500 mg in 100 mls @ 100 ml s/hr IV Q24H [facility] Last Infusion: 09/30/22 12:55 Dose: Infused Piperacillin Sod/Tazobactam (Sod 3.375 gm/ Sodium Chloride) 50 mls @ 12.5 mls/hr IV Q8H [facility] Last Admin: 10/01/22 06:01 Dose: 12.5 mls/hr Insulin Aspart (Insulin Aspart 300 Unit/3 Ml Pen) 3 - 15 unit SUBQ [facility]; Protocol Last Admin: 10/01/22 09:40 Dose: Not Given Levothyroxine Sodium (Levothyroxine Sodium 112 Mcg Tablet) 112 mcg PO QD@0630 [facility] Last Admin: 10/01/22 09:53 Dose: 112 mcg Losartan Potassium (Losartan Potassium 50 Mg Tablet) 100 mg PO QAM [facility] Last Admin: 10/01/22 09:52 Dose: 100 mg Methylprednisolone Sodium Succinate (Methylprednisolone Sod Succ Pf 40 Mg/Ml Vial) 40 mg IVP Q6H [facility] Last Admin: 10/01/22 06:02 Dose: 40 mg Nicotine (Nicotine 21 Mg Patch.Td24) 21 each TD QD PRN PRN Reason: NICOTINE WITHDRAWAL Ondansetron HCl (Ondansetron Pf 4 Mg/2 Ml Vial) 4 mg IV Q6H PRN PRN Reason: Nausea And Vomiting Pantoprazole Sodium (Pantoprazole Sodium 40 Mg Vial) 40 mg IV Q24H [facility] Last Admin: 09/30/22 14:30 Dose: 40 mg Polyethylene Glycol (Polyethylene Glycol 3350 17 Gm Powder Packet) 17 gm PO QD PRN PRN Reason: Constipation Last Admin: 09/24/22 08:10 Dose: 17 gm Sodium Chloride (0.9 % Sodium Chloride 10 Ml Syringe - Saline Flush) 10 ml IV Q15M PRN PRN Reason: SALINE FLUSH Sodium Chloride (Sodium Chloride 0.9% Inhalation 3 Ml Neb) 3 ml IH TID@0900,1500,2300 [facility] Last Admin: 10/01/22 07:33 Dose: 3 ml Sodium Chloride (Sodium Chloride 0.65% Nasal [place]) 2 spray NS Q2H PRN PRN Reason: Dry Nasal Passages Last Admin: 09/30/22 05:41 Dose: 2 spray Time Spent With Patient Time: Total time spent is greater than 50% in coordination of care (as documented) at patient's floor/unit and/or counseling patient:
[2022-10-01] MEDS: ASPIRIN 81 MG TABLET.DR PO (10:31)
[2022-10-01 11:01] LABS: Glucometer 228 mg/dL (74-106)
--- NOTE | 2022-10-01 11:04 | REH.PTDLY ---
Physical Therapy Daily Note PT Daily Note/Assess Start: 09/30/22 12:44 Freq: Status: Active Protocol: Document 10/01/22 10:57 JONATHAN (Rec: 10/01/22 11:04 JONATHAN [id number]) Physical Therapy Daily Note/Assessment Time In 10:17 Time Out 10:45 Pain Level 0 Pain Level 0 Subjective Pt reports feeling better today, less swollen. Still no 6 L of O2. Pt sitting up in chair. Therapeutic Exercise Minutes (minutes) 12 Therapeutic Exercise Units 1 Therapeutic Exercise Treatment SpO2 at 94% this morning. Instructed pt in B LE seated exs 10x ea with no signs of dyspnea. Pt stood and instructed in B LE exs 10x including HR, mini squats, and hip flex 8-10x ea. SpO2 drops to 88%. Took seated rest break. Therapeutic Activity Minutes (minutes) 11 Therapeutic Activity Units 1 Chair Transfer Ability Standby Assistance Therapeutic Activity Comments Pt performs transfers from chair 3x during rx. Pt has bloody nose during rx and requires assist to wash up from this. Pt stood for 3 mins . Gait training with RW 6 feet total with 6 L of O2, pt becomes fatigued and SOB. SpO2 dropped to 85%, but rises quickly to 91% once sitting. Total Therapy Minutes 23 Total Physical Therapy Units 2 Daily Note Summary Progressed to standing exs and gait with pt needing rest breaks due to a drop in O2 sats while being on 6 L of O2. O2 is 85% at it's lowest during rx. Pt has no complaints post rx.
--- NOTE | 2022-10-01 11:22 | REH.PTDLY ---
Physical Therapy Daily Note PT Daily Note/Assess Start: 09/30/22 12:44 Freq: Status: Active Protocol: Document 10/01/22 10:57 JONATHAN (Rec: 10/01/22 11:04 JONATHAN [id number]) Physical Therapy Daily Note/Assessment Time In 10:17 Time Out 10:45 Pain Level 0 Pain Level 0 Subjective Pt reports feeling better today, less swollen. Still on 6 L of O2. Pt sitting up in chair. Therapeutic Exercise Minutes (minutes) 12 Therapeutic Exercise Units 1 Therapeutic Exercise Treatment SpO2 at 94% this morning. Instructed pt in B LE seated exs 10x ea with no signs of dyspnea. Pt stood and instructed in B LE exs 10x including HR, mini squats, and hip flex 8-10x ea. SpO2 drops to 88%. Took seated rest break. Therapeutic Activity Minutes (minutes) 11 Therapeutic Activity Units 1 Chair Transfer Ability Standby Assistance Therapeutic Activity Comments Pt performs transfers from chair 3x during rx. Pt has bloody nose during rx and requires assist to wash up from this. Pt stood for 3 mins . Gait training with RW 6 feet total with 6 L of O2, pt becomes fatigued and SOB. SpO2 dropped to 85%, but rises quickly to 91% once sitting. Total Therapy Minutes 23 Total Physical Therapy Units 2 Daily Note Summary Progressed to standing exs and gait with pt needing rest breaks due to a drop in O2 sats while being on 6 L of O2. O2 is 85% at it's lowest during rx. Pt has no complaints post rx.
[2022-10-01] MEDS: BUDESONIDE 0.5 MG/2 ML AMPULE NEB IH ×2 (11:27→23:07)
[2022-10-01] MEDS: INSULIN ASPART 300 UNIT/3 ML PEN SUBQ ×2 (11:55→22:50)
[2022-10-01] MEDS: LEVOFLOXACIN IN DEXTROSE 5 % 500 MG/100 ML PIGGYBACK 100 MG IV (11:56)
--- NOTE | 2022-10-01 12:03 | SWNOTE1 ---
SW sent updates to [facility], no discharge today, still on 6 liters O2, needs to be down to 5 liters before going to [facility].
--- NOTE | 2022-10-01 12:52 | PM.PLPN ---
Progress Note: A&P Assessment and Plan (1) Acute exacerbation of bronchiectasis: Plan 1.? Acute exacerbation of bronchiectasis. Continue pulmonary toilet. PEP, nebs, saline. 2.? Haemophilus influenzae pneumonia.? Beta-lactamase positive.? Cultured from BAL 09/23/2022.? Clinically resolving. 3.? Acute hypercapnic respiratory failure.? Slow improvement. No need for BiPAP at this current time. Will need to assess ABG once discharged from hospital and SNF (if she goes). 4.? Acute hypoxic respiratory failure secondary to #1 & #2.? Wean O2 as tolerated, maintain SpO2 ~90%. 5.? Acute exacerbation of COPD.? Continue bronchodilators. 6. Critical illness myopathy. Continue PT/OT. SNF evaluation. 7.? Multiple pulmonary nodules.? Stable outpatient. 8.? Tobacco abuse.? DO NOT RESTART SMOKING! Patient may F/U with me 1-2 weeks after discharge from SNF, or if not sent there, after discharge from hospital. Subjective Subjective Interval history: Patient states she is feeling better. Continues to use PEP, productive cough but decreased sputum. Still remains on supplemental O2. Did not wear BiPAP last night, ABG this morning shows she still has some CO2 retention, but also metabolic alkalosis. She is sitting up in bed. Improved strength, but still is weak. Exam Constitutional Vital Signs - 24 hr 09/30/22 13:02 09/30/22 14:55 09/30/22 16:01 Temperature Pulse Rate 101 H 96 H Pulse Rate [Monitor] Respiratory Rate Blood Pressure [Left Arm] Pulse Oximetry 90 L Oxygen Delivery Method Nasal Cannula Oxygen Delivery Flow Rate 6 09/30/22 16:19 09/30/22 17:51 09/30/22 19:35 Temperature Pulse Rate 98 H 88 85 Pulse Rate [Monitor] Respiratory Rate 22 Blood Pressure [Left Arm] Pulse Oximetry 92 L Oxygen Delivery Method Nasal Cannula Oxygen Delivery Flow Rate 6 09/30/22 19:32 09/30/22 19:49 09/30/22 19:49 Temperature Pulse Rate 94 H Pulse Rate [Monitor] 94 H Respiratory Rate Blood Pressure [Left Arm] Pulse Oximetry 92 L 92 L Oxygen Delivery Method Nasal Cannula Oxygen Delivery Flow Rate 6 09/30/22 22:01 09/30/22 19:58 09/30/22 22:00 Temperature Pulse Rate 80 97 H 77 Pulse Rate [Monitor] Respiratory Rate Blood Pressure [Left Arm] Pulse Oximetry 94 L Oxygen Delivery Method Oxygen Delivery Flow Rate 09/30/22 23:02 10/01/22 00:29 10/01/22 02:48 Temperature Pulse Rate 79 86 77 Pulse Rate [Monitor] Respiratory Rate 20 Blood Pressure [Left Arm] Pulse Oximetry 95 Oxygen Delivery Method Nasal Cannula Oxygen Delivery Flow Rate 6 10/01/22 03:37 10/01/22 03:55 10/01/22 03:58 Temperature Pulse Rate 72 77 83 Pulse Rate [Monitor] Respiratory Rate 16 22 Blood Pressure [Left Arm] Pulse Oximetry 97 97 Oxygen Delivery Method Nasal Cannula Nasal Cannula Oxygen Delivery Flow Rate 6 5 10/01/22 04:38 10/01/22 05:18 10/01/22 05:58 Temperature Pulse Rate 77 Pulse Rate [Monitor] Respiratory Rate Blood Pressure [Left Arm] Pulse Oximetry 90 L 86 L Oxygen Delivery Method Nasal Cannula Nasal Cannula Oxygen Delivery Flow Rate 5 5 10/01/22 07:34 10/01/22 08:02 10/01/22 10:05 Temperature Pulse Rate 90 105 H Pulse Rate [Monitor] Respiratory Rate Blood Pressure [Left Arm] Pulse Oximetry 88 L Oxygen Delivery Method Nasal Cannula Oxygen Delivery Flow Rate 6 10/01/22 11:30 10/01/22 11:43 10/01/22 12:02 Temperature 97.6 F Pulse Rate 99 H 96 H Pulse Rate [Monitor] Respiratory Rate 22 Blood Pressure [Left Arm] 131/77 H Pulse Oximetry 89 L 88 L Oxygen Delivery Method Nasal Cannula Room Air Oxygen Delivery Flow Rate 6 Documenting provider has reviewed patient's vital signs: yes Common normals: no apparent distress General appearance: cooperative and comfortable HENMT Other: Wearing nasal cannula. Dentures. No oral candidiasis. Chest Common normals: inspection of chest normal Respiratory Other: Diminished breath sounds. Mild rhonchi in the bases, no wheezes. Cardio Other: RRR GI Common normals: soft to palpation and non-tender Extremity General: no edema Neuro Sensorium/orientation: awake and alert Psych Other: Pleasant
--- NOTE | 2022-10-01 14:19 | SWNOTE1 ---
SW updated pt and let her know [facility] accept once she is ready for discharge. SW let her know we have to go her down to 5 liters before she can dc. Pt voiced understanding.
--- NOTE | 2022-10-01 15:19 | RESP.RT ---
Titrated down to 5L NC
[2022-10-01] MEDS: PANTOPRAZOLE SODIUM 40 MG VIAL IV (15:35)
[2022-10-01 16:49] LABS: Glucometer 100 mg/dL (74-106)
[2022-10-01 20:16] LABS: Glucometer 204 mg/dL (74-106)
--- NOTE | 2022-10-01 20:22 | PC.NURSE ---
Patient assisted from recliner chair to Bed. Patient forgot to purse lip breath and breath through nose with [address] Dyspnea with exertion. Explained breathing recovering and patient catching breath while in bed. SPO2 increased to 84% with 5 minute recovery.
[2022-10-01] MEDS: LACTATED RINGER'S SOLUTION 1,000 ML 20 ML IV (22:41)
[2022-10-02] VITALS (16 sets, daily range): BP systolic 128–134; BP diastolic 70–77; PULSE 69–111; RESP 16–20; TEMP 36.6–37.2; O2SAT 87–96
[2022-10-02] MEDS: IPRATROPIUM/ALBUTEROL SULFATE 3 ML AMPUL.NEB IH ×3 (03:40→11:26)
--- NOTE | 2022-10-02 03:44 | RESP.RT ---
Sp02 96% on 5L, titrated down to 4L
[2022-10-02 04:58] LABS: Basophils Percent Auto 0.2 % (0.2-2.0); Hematocrit 42.7 % (36.0-48.0); Immature Granulocytes Abs Auto 0.13 10^3/uL (0.00-0.03); Immature Granulocytes Pct Auto 1.6 % (0.0-0.5); Lymphocytes Absolute Auto 0.5 10^3/uL (1.2-3.8); Lymphocytes Percent Auto 6.6 % (20.5-60.0); Mean Corpuscular HGB Conc 32.8 g/dL (29.9-35.2); Mean Corpuscular Hemoglobin 30.8 pg (26.7-34.0); Mean Corpuscular Volume 93.8 fL (81.0-99.0); Monocytes Absolute Auto 0.4 10^3/uL (0.3-0.8); Monocytes Percent Auto 5.1 % (1.7-12.0); Neutrophils Absolute Auto 7.1 10^3/uL (1.4-6.5); Neutrophils Percent Auto 86.5 % (43.0-75.0); Platelet Count 227 10^3/uL (150-450); Red Blood Count 4.55 10^6/uL (4.20-5.40); Red Cell Distribution Width 13.2 % (11.0-15.0); White Blood Count 8.2 10^3/uL (4.0-11.0)
[2022-10-02] MEDS: PIPERACILLIN SODIUM/TAZOBACTAM 3.375 GM in 0.9 % SODIUM CHLORIDE 50 ML IV ×2 (05:05→13:34)
[2022-10-02] MEDS: METHYLPREDNISOLONE SOD SUCC PF 40 MG/ML VIAL IVP ×2 (05:05→09:00)
[2022-10-02 05:19] LABS: Alanine Aminotransferase 113 U/L (14-59); Albumin Globulin Ratio 0.7; Albumin Level 2.4 g/dL (3.4-5.0); Alkaline Phosphatase 52 U/L (46-116); Anion Gap 7.4; Aspartate Amino Transferase 43 U/L (15-37); BUN Creatinine Ratio 44.1; Bilirubin Total 0.5 mg/dL (0.2-1.0); Calcium 8.9 mg/dL (8.5-10.1); Carbon Dioxide 34.8 mmol/L (21.0-32.0); Chloride 100 mmol/L (98-107); Estimated GFR (African America >60 (>=60); Estimated GFR (Non-African Ame >60 (>=60); Globulin 3.4 g/dL; Glucose 234 mg/dL (74-106); Potassium 4.2 mmol/L (3.5-5.1); Sodium 138 mmol/L (136-145); Total Protein 5.8 g/dL (6.4-8.2)
[2022-10-02] MEDS: SODIUM CHLORIDE 0.9% INHALATION 3 ML NEB IH (07:23)
[2022-10-02 07:43] LABS: Glucometer 186 mg/dL (74-106)
[2022-10-02] MEDS: LOSARTAN POTASSIUM 50 MG TABLET 100 MG PO (09:00)
[2022-10-02] MEDS: AMLODIPINE BESYLATE 5 MG TABLET PO (09:00)
[2022-10-02] MEDS: ASPIRIN 81 MG TABLET.DR PO (09:00)
[2022-10-02] MEDS: LEVOTHYROXINE SODIUM 112 MCG TABLET PO (09:00)
[2022-10-02] MEDS: ENOXAPARIN SODIUM 40 MG/0.4 ML SYRINGE SUBQ (09:01)
[2022-10-02] MEDS: INSULIN ASPART 300 UNIT/3 ML PEN SUBQ ×2 (09:01→11:15)
--- NOTE | 2022-10-02 10:02 | P.DS_ITS ---
DS: Providers Provider Date of admission: 09/21/22 23:02 Primary care physician: Antonio Riggins MD Consults: 09/27/22 10:58 Consult to Assistant Store Director Routine Occupational Therapy Eval and Treat Routine Physical Therapy Eval and Treat Routine DS: Diagnosis Discharge Diagnosis (1) Acute exacerbation of bronchiectasis: Assessment and plan: Acute exacerbation of bronchiectasis With acute hypoxic respiratory failure With acute respiratory acidosis, secondary to haemophilus influenza that ended up with intubation.? 6 L and stable this morning.? Try to wean that.? Patient in need of rehab.-Still on 6 L Leukocytosis today- -Resolved, monitor daily Hypertension, essential: blood pressure has been a little bit elevated so we will added Norvasc Hypothyroidism (acquired): cont with current meds Nutrition- off tube feeds since she has been extubated.? Monitor glucosesAll- overall improving ? ? Hyperglycemia- at this point would adjust the sliding scale and discontinue long-acting insulin although sugars have been improved DS: Summary Hospital Course Hospital Course: Patient was admitted with increasing shortness of breath, she was treated with antibiotics and aerosols and steroids, patient continued to deteriorate, ABG was checked which showed elevating CO2, she consultation to pulmonology, patient was intubated, she was placed on the ventilator for 3 days. She was able to be weaned off at that point, she still required high flow oxygen for several days post intubation. Her sputum culture did grow haemophilus influenza. She was treated with IV antibiotics. She did spike a fever after initial treatment. The medications were adjusted for fear of UTI. But her urine culture did not grow anything. Over the last 24 to 48 hours for increasing O2 levels have allowed us to wean her supplemental oxygen down to 4 L. She feels overall improved but still with significant difficulty with ambulation and significant hypoxia with ambulation as well. This point she is stable for rehab. She is an excellent rehabilitation candidate. Medications see list. Follow-up PCP after rehab Time Spent with Patient Time attestation: Total time spent providing and/or coordinating discharge services: Exam Constitutional Vital Signs - 24 hr 10/01/22 10:05 10/01/22 11:30 10/01/22 11:43 Temperature 97.6 F Pulse Rate 105 H 99 H Pulse Rate [Monitor] Respiratory Rate 22 Blood Pressure Blood Pressure [Left Arm] 131/77 H Pulse Oximetry 89 L 88 L Oxygen Delivery Method Nasal Cannula Room Air Oxygen Delivery Flow Rate 6 10/01/22 12:02 10/01/22 13:59 10/01/22 15:15 Temperature Pulse Rate 96 H 85 Pulse Rate [Monitor] Respiratory Rate Blood Pressure Blood Pressure [Left Arm] Pulse Oximetry 95 Oxygen Delivery Method Nasal Cannula Oxygen Delivery Flow Rate 6 10/01/22 15:15 10/01/22 15:21 10/01/22 16:11 Temperature 97.9 F Pulse Rate 83 78 95 H Pulse Rate [Monitor] Respiratory Rate 20 18 Blood Pressure Blood Pressure [Left Arm] 135/2 H Pulse Oximetry 95 93 L Oxygen Delivery Method Nasal Cannula Nasal Cannula Oxygen Delivery Flow Rate 6 10/01/22 17:32 10/01/22 19:10 10/01/22 19:25 Temperature Pulse Rate 88 80 Pulse Rate [Monitor] Respiratory Rate 20 Blood Pressure Blood Pressure [Left Arm] Pulse Oximetry 93 L 96 Oxygen Delivery Method Nasal Cannula Room Air Oxygen Delivery Flow Rate 5 5 10/01/22 19:10 10/01/22 20:05 10/01/22 19:40 Temperature Pulse Rate 80 87 Pulse Rate [Monitor] 84 Respiratory Rate 22 22 Blood Pressure Blood Pressure [Left Arm] Pulse Oximetry 93 L 89 L Oxygen Delivery Method Nasal Cannula Oxygen Delivery Flow Rate 5 10/01/22 19:50 10/01/22 20:28 10/01/22 22:03 Temperature Pulse Rate 78 Pulse Rate [Monitor] Respiratory Rate 24 Blood Pressure Blood Pressure [Left Arm] Pulse Oximetry 74 L 90 L 94 L Oxygen Delivery Method Nasal Cannula Nasal Cannula Oxygen Delivery Flow Rate 5 5 10/01/22 22:00 10/01/22 23:32 10/01/22 23:07 Temperature 98.3 F Pulse Rate 83 89 76 Pulse Rate [Monitor] Respiratory Rate 18 20 20 Blood Pressure Blood Pressure [Left Arm] 113/70 Pulse Oximetry 93 L 93 L Oxygen Delivery Method Nasal Cannula Nasal Cannula Oxygen Delivery Flow Rate 5 5 10/02/22 00:00 10/02/22 02:00 10/02/22 03:40 Temperature Pulse Rate 80 74 70 Pulse Rate [Monitor] Respiratory Rate 16 Blood Pressure Blood Pressure [Left Arm] Pulse Oximetry 92 L 93 L 96 Oxygen Delivery Method Nasal Cannula Oxygen Delivery Flow Rate 5 10/02/22 03:40 10/02/22 04:00 10/02/22 04:46 Temperature Pulse Rate 76 Pulse Rate [Monitor] Respiratory Rate Blood Pressure Blood Pressure [Left Arm] Pulse Oximetry 96 92 L 89 L Oxygen Delivery Method Nasal Cannula Nasal Cannula Oxygen Delivery Flow Rate 5 4 10/02/22 06:00 10/02/22 06:00 10/02/22 07:26 Temperature 98 F Pulse Rate 69 72 Pulse Rate [Monitor] Respiratory Rate 18 Blood Pressure Blood Pressure [Left Arm] 134/77 H Pulse Oximetry 90 L 94 L 93 L Oxygen Delivery Method Nasal Cannula Nasal Cannula Oxygen Delivery Flow Rate 4 4 10/02/22 07:33 10/02/22 08:20 10/02/22 09:00 Temperature Pulse Rate 73 107 H Pulse Rate [Monitor] Respiratory Rate 18 Blood Pressure 128/76 H Blood Pressure [Left Arm] Pulse Oximetry 93 L 87 L Oxygen Delivery Method Nasal Cannula Oxygen Delivery Flow Rate 3 10/02/22 09:00 10/02/22 09:07 10/02/22 09:55 Temperature 98.3 F Pulse Rate 94 H 103 H Pulse Rate [Monitor] Respiratory Rate 18 Blood Pressure 128/76 H Blood Pressure [Left Arm] 128/70 H Pulse Oximetry 89 L 92 L Oxygen Delivery Method Nasal Cannula Oxygen Delivery Flow Rate 4 Documenting provider has reviewed patient's vital signs: yes Common normals: no apparent distress, oriented x3 and alert Orientation/consciousness: Yes awake HENMT Common normals: normocephalic, head/scalp atraumatic and moist oral mucous membranes Head and scalp: normal to inspection, normocephalic, atraumatic and other (ET tube in place) Mouth: oral and palatal mucosa normal and other (ET tube in place) Teeth and gingiva: other (8.0 ETT, OGT) Other: Wearing nasal cannula. Dentures. No oral candidiasis. Eye Common normals: PERRL Pupil: PERRL Neck & C-Spine Common normals: no JVD General: trachea midline Chest Common normals: inspection of chest normal and palpation of chest normal Chest: abnormal inspection of the chest and symmetrical chest wall rise; no crepitus Respiratory Common normals: normal respiratory effort, no retractions and no use of accessory muscles Effort & inspection: tachypneic, labored (To me she definitely feels better than yesterday.) and other (Very diminished breath sounds bilaterally); not able to speak in complete sentences, no respiratory distress and no audible wheezes Auscultation: crackles (moist inspiratory throughout), rhonchi, wheezes and bronchial breath sounds Other: Diminished breath sounds. Mild rhonchi in the bases, no wheezes. Cardio Common normals: no JVD, regular rate, regular rhythm and S1 normal heart sound Rate: regular rate and tachycardic Rhythm: regular rhythm Heart sounds: S1 normal Other: RRR GI Common normals: Normal to inspection, nondistended, normoactive bowel sounds present, soft to palpation, non-tender and no hepatosplenomegaly Palpation: soft and no hepatosplenomegaly Bladder/kidney exam: catheter in place Extremity Common normals: normal to inspection and no clubbing, cyanosis or edema General: no edema Neuro Common normals: oriented x3, moves all extremities and no focal motor deficits Sensorium/orientation: awake, alert and obtunded Speech: other Psych Common normals: cooperative and affect normal Appearance: well kempt Other: Pleasant DS: Data Data Completed and Pending Labs on day of discharge: Labs from last 24 hours 10/02/22 10/02/22 10/01/22 07:41 04:35 20:15 WBC 8.2 RBC 4.55 Hgb 14.0 Hct 42.7 MCV 93.8 MCH 30.8 MCHC 32.8 RDW 13.2 Plt Count 227 MPV 10.0 Neut % (Auto) 86.5 H Lymph % (Auto) 6.6 L [place] % (Auto) 5.1 Eos % (Auto) 0.0 L Baso % (Auto) 0.2 Neut # (Auto) 7.1 H Lymph # (Auto) 0.5 L [place] # (Auto) 0.4 Eos # (Auto) 0.0 Baso # (Auto) 0.0 Abs Immat Gran (auto) 0.13 H Imm/Tot Granulo (auto) 1.6 H Sodium 138 Potassium 4.2 Chloride 100 Carbon Dioxide 34.8 H Anion Gap 7.4 BUN 30.0 H Creatinine 0.68 Est GFR ( Amer) >60 Est GFR (Non-Af Amer) >60 BUN/Creatinine Ratio 44.1 Glucose 234 H Calcium 8.9 Total Bilirubin 0.5 AST 43 H ALT 113 H Alkaline Phosphatase 52 NT-Pro-B Natriuret Pep 351.0 Total Protein 5.8 L Albumin 2.4 L Globulin 3.4 Albumin/Globulin Ratio 0.7 POC Glucose 186 H 204 H 10/01/22 10/01/22 16:43 10:55 WBC RBC Hgb Hct MCV MCH MCHC RDW Plt Count MPV Neut % (Auto) Lymph % (Auto) [place] % (Auto) Eos % (Auto) Baso % (Auto) Neut # (Auto) Lymph # (Auto) [place] # (Auto) Eos # (Auto) Baso # (Auto) Abs Immat Gran (auto) Imm/Tot Granulo (auto) Sodium Potassium Chloride Carbon Dioxide Anion Gap BUN Creatinine Est GFR ( Amer) Est GFR (Non-Af Amer) BUN/Creatinine Ratio Glucose Calcium Total Bilirubin AST ALT Alkaline Phosphatase NT-Pro-B Natriuret Pep Total Protein Albumin Globulin Albumin/Globulin Ratio POC Glucose 100 228 H Preliminary micro results at discharge 09/28/22 08:50 - Preliminary Blood 09/28/22 08:55 Blood Culture Result 1 - Preliminary Blood Discharge Plan Discharge Disposition: Xfer SNF Condition: Fair Discharge Medications: New ipratropium-albuterol 0.5 mg-3 mg(2.5 mg base)/3 mL Solution For Nebulization 3 ml inhalation Q4H Qty: 180 0RF dextromethorphan-guaifenesin 10-100 mg/5 mL Syrup 10 ml PO Q6H PRN (Reason: Cough) Qty: 1000 0RF amlodipine 5 mg Tablet 5 mg PO QD Qty: 30 0RF aspirin 81 mg Tablet,Delayed Release (Dr/Ec) 81 mg PO QD Qty: 30 0RF acetaminophen [Tylenol Extra Strength] 500 mg Tablet 1,000 mg PO Q6H PRN (Reason: Pain) Qty: 120 0RF budesonide 0.5 mg/2 mL Suspension For Nebulization 0.5 mg inhalation BID@1100,2300 Qty: 60 0RF hydroxyzine pamoate 25 mg Capsule 25 mg PO QID PRN (Reason: Anxiety) Qty: 90 0RF insulin aspart U-100 [Novolog FlexPen U-100 Insulin] 100 unit/mL (3 mL) Insulin Pen 3 - 15 unit subcut ACHS Qty: 15 0RF guaifenesin [Mucus Relief ER] 600 mg Tablet Extended Release 12hr 600 mg PO Q12H Qty: 90 0RF levofloxacin 500 mg tablet 500 mg PO Q24H 5 Days Qty: 5 0RF prednisone 10 mg tablet 50 mg PO DAILY Qty: 47 0RF Rx Instructions: 5/day for 3 days. 4/day for 3 days, 3/day for 3 days, 2/day for 3 days, 1/day for 3 days, 1/2 /day for 4 days pantoprazole [Protonix] 40 mg tablet,delayed release (DR/EC) 40 mg PO QAM Qty: 30 0RF Continued albuterol sulfate [ProAir HFA] 90 mcg/actuation HFA aerosol inhaler 2 puff inhalation QID PRN (Reason: shortness of breath or wheezing) fluticasone furoate-vilanterol [Breo Ellipta] 100-25 mcg/dose blister with device 1 inh INHALATION Q24H levothyroxine [Synthroid] 112 mcg tablet 112 mcg PO .daily losartan 50 mg tablet 50 mg PO .daily multivitamin Tablet 1 tab PO QDAY aspirin [Aspirin Childrens] 81 mg tablet,chewable 81 mg PO QDAY Machine Adjuster Helper/First Responder Instructions: Discharging to the [facility]. Forms: Portal Instructions Discharge Date/Time: 10/02/22 15:34
--- NOTE | 2022-10-02 10:34 | CM.NOTE ---
Rounds made with Dr. Flores. Potential plan for discharge to [facility].
--- NOTE | 2022-10-02 10:38 | SWNOTE1 ---
SW sent updated vitals for last 48 hours and progress note from pulmonology yesterday to the [facility]. They want to review and make sure she is stable.
--- NOTE | 2022-10-02 10:55 | PM.PLPN ---
Progress Note: A&P Assessment and Plan (1) Acute exacerbation of bronchiectasis: Plan 1.? Acute exacerbation of bronchiectasis. Continue pulmonary toilet. Needs to continue with PEP and nebulized saline @ SNF and after discharge to home! 2.? Haemophilus influenzae pneumonia.? Beta-lactamase positive.? Cultured from BAL 09/23/2022.? Clinically resolved.. 3.? Acute hypercapnic respiratory failure.? Slow improvement. No need for BiPAP at SNF. I will monitor outpatient. 4.? Acute hypoxic respiratory failure secondary to #1 & #2.? Goal SpO2 ~90%. Wean FiO2 as tolerated. Patient was counseled she may require O2 for several more weeks/months. 5.? Acute exacerbation of COPD.? Continue bronchodilators. 6. Critical illness myopathy. Continue PT/OT. Improving muscle strength. 7.? Multiple pulmonary nodules.? Stable outpatient. 8.? Tobacco abuse.? DO NOT RESTART SMOKING! Exacerbations will be recurrent if she continues to smoke. Patient appears acceptable for discharge from pulmonary perspective. F/U with me 1-2 weeks after discharge from SNF. Subjective Subjective Interval history: Patient states she is doing better. Breathing is doing well, FiO2 down to 4L/min. Decreased cough.Dariana is out, attempting to ambulate. She thanked us for helping her through this. Exam Constitutional Vital Signs - 24 hr 10/01/22 11:30 10/01/22 11:43 10/01/22 12:02 Temperature 97.6 F Pulse Rate 99 H 96 H Pulse Rate [Monitor] Respiratory Rate 22 Blood Pressure Blood Pressure [Left Arm] 131/77 H Pulse Oximetry 89 L 88 L Oxygen Delivery Method Nasal Cannula Room Air Oxygen Delivery Flow Rate 6 10/01/22 13:59 10/01/22 15:15 10/01/22 15:15 Temperature Pulse Rate 85 83 Pulse Rate [Monitor] Respiratory Rate 20 Blood Pressure Blood Pressure [Left Arm] Pulse Oximetry 95 95 Oxygen Delivery Method Nasal Cannula Nasal Cannula Oxygen Delivery Flow Rate 6 6 10/01/22 15:21 10/01/22 16:11 10/01/22 17:32 Temperature 97.9 F Pulse Rate 78 95 H 88 Pulse Rate [Monitor] Respiratory Rate 18 Blood Pressure Blood Pressure [Left Arm] 135/2 H Pulse Oximetry 93 L Oxygen Delivery Method Nasal Cannula Oxygen Delivery Flow Rate 10/01/22 19:10 10/01/22 19:25 10/01/22 19:10 Temperature Pulse Rate 80 80 Pulse Rate [Monitor] Respiratory Rate 20 22 Blood Pressure Blood Pressure [Left Arm] Pulse Oximetry 93 L 96 93 L Oxygen Delivery Method Nasal Cannula Room Air Nasal Cannula Oxygen Delivery Flow Rate 5 5 5 10/01/22 20:05 10/01/22 19:40 10/01/22 19:50 Temperature Pulse Rate 87 Pulse Rate [Monitor] 84 Respiratory Rate 22 24 Blood Pressure Blood Pressure [Left Arm] Pulse Oximetry 89 L 74 L Oxygen Delivery Method Nasal Cannula Oxygen Delivery Flow Rate 5 10/01/22 20:28 10/01/22 22:03 10/01/22 22:00 Temperature 98.3 F Pulse Rate 78 83 Pulse Rate [Monitor] Respiratory Rate 18 Blood Pressure Blood Pressure [Left Arm] 113/70 Pulse Oximetry 90 L 94 L 93 L Oxygen Delivery Method Nasal Cannula Nasal Cannula Oxygen Delivery Flow Rate 5 5 10/01/22 23:32 10/01/22 23:07 10/02/22 00:00 Temperature Pulse Rate 89 76 80 Pulse Rate [Monitor] Respiratory Rate 20 20 Blood Pressure Blood Pressure [Left Arm] Pulse Oximetry 93 L 92 L Oxygen Delivery Method Nasal Cannula Oxygen Delivery Flow Rate 5 10/02/22 02:00 10/02/22 03:40 10/02/22 03:40 Temperature Pulse Rate 74 70 Pulse Rate [Monitor] Respiratory Rate 16 Blood Pressure Blood Pressure [Left Arm] Pulse Oximetry 93 L 96 96 Oxygen Delivery Method Nasal Cannula Nasal Cannula Oxygen Delivery Flow Rate 5 5 10/02/22 04:00 10/02/22 04:46 10/02/22 06:00 Temperature 98 F Pulse Rate 76 69 Pulse Rate [Monitor] Respiratory Rate 18 Blood Pressure Blood Pressure [Left Arm] 134/77 H Pulse Oximetry 92 L 89 L 90 L Oxygen Delivery Method Nasal Cannula Nasal Cannula Oxygen Delivery Flow Rate 4 4 10/02/22 06:00 10/02/22 07:26 10/02/22 07:33 Temperature Pulse Rate 72 73 Pulse Rate [Monitor] Respiratory Rate 18 Blood Pressure Blood Pressure [Left Arm] Pulse Oximetry 94 L 93 L 93 L Oxygen Delivery Method Nasal Cannula Nasal Cannula Oxygen Delivery Flow Rate 4 3 10/02/22 08:20 10/02/22 09:00 10/02/22 09:00 Temperature Pulse Rate 107 H Pulse Rate [Monitor] Respiratory Rate Blood Pressure 128/76 H 128/76 H Blood Pressure [Left Arm] Pulse Oximetry 87 L Oxygen Delivery Method Oxygen Delivery Flow Rate 10/02/22 09:07 10/02/22 09:55 Temperature 98.3 F Pulse Rate 94 H 103 H Pulse Rate [Monitor] Respiratory Rate 18 Blood Pressure Blood Pressure [Left Arm] 128/70 H Pulse Oximetry 89 L 92 L Oxygen Delivery Method Nasal Cannula Oxygen Delivery Flow Rate 4 Documenting provider has reviewed patient's vital signs: yes Common normals: no apparent distress General appearance: cooperative and comfortable HENMT Other: Wearing nasal cannula Chest Common normals: inspection of chest normal Respiratory Other: Decreased bibasilar rhonchi. No wheezes. Improved breath sounds overall. Cardio Rate: regular rate Rhythm: regular rhythm Neuro Sensorium/orientation: awake and alert Psych Common normals: mental status grossly normal Appearance: grossly normal Attitude: calm (Pleasant)
[2022-10-02 11:02] LABS: Glucometer 272 mg/dL (74-106)
--- NOTE | 2022-10-02 11:14 | PT.DAILY ---
Physical Therapy Daily Note PT Daily Note/Assess Start: 09/30/22 12:44 Freq: Status: Active Protocol: Document 10/02/22 11:05 MOOK (Rec: 10/02/22 11:14 [email or web address] [id number]) Physical Therapy Daily Note/Assessment Time In/Time Out Time In 10:40 Time Out 11:05 Pain In Pain N/A Pain Out Pain N/A Subjective Subjective Pt sitting in BS chair upon arrival. On 4L O2 this morning . SPo2 86% prior to session. Agrees to PT. Needs to use restroom. Therapeutic Activity Time Therapeutic Activity Minutes (minutes) 20 Therapeutic Activity Units 1 Therapeutic Activity Treatment Chair Transfer Ability Minimum Assist Therapeutic Activity Comments Pt performs sit>stand from BS chair to RW Mandeep. Amb 30' to restroom with RW and SBA with assist for IV pole and portable O2 tank. Pt turns to sit on toilet with 1x LOB with self correction. Spo2 85% with this activity. Pt able to perform pericare and sit> stand from toilet SBA. Static stand at sink 2 min while washing and drying hands. Amb back to BS chair 30' with RW, SBA with assist for IV pole and portable tank. Remains in BS chair upon completion with nursing present. Spo2 84% upon completion. Total Physical Therapy Time Total Therapy Minutes 20 Total Physical Therapy Units 1 Summary Daily Note Summary IMproved tolerance with activity with minimal O2 sat drop. Does become min SOB with amb back to chair.
[2022-10-02] MEDS: LEVOFLOXACIN IN DEXTROSE 5 % 500 MG/100 ML PIGGYBACK 100 MG IV (11:22)
[2022-10-02] MEDS: BUDESONIDE 0.5 MG/2 ML AMPULE NEB IH (11:26)
[2022-10-02] MEDS: PANTOPRAZOLE SODIUM 40 MG VIAL IV (13:38)
--- NOTE | 2022-10-02 13:53 | SWNOTE1 ---
Pt is able to be discharged to [facility] today. [facility] called and set up trips for 3:15-3:45. SW notified [facility], nurse, and pt of dc time. SW updated packet and completed HENS. Pt is going skilled at [facility].
--- NOTE | 2022-10-02 14:01 | SWNOTE1 ---
SW also reviewed IMM form with pt. She voiced understanding, no questions. Pt signed form, original given to pt and copy placed in chart.
== END 2022-10-02 15:34 | DRG 208 ==
LOC: ICU 09-30 13:54 → MS 09-30 15:55
PROVIDERS: Family Medicine; Internal Medicine; Admitting Provider Family Medicine; PCP Family Medicine; Visit Provider Family Medicine
DX: J47.1 Bronchiectasis with (acute) exacerbation (principal); J96.01 Acute respiratory failure with hypoxia; J96.02 Acute respiratory failure with hypercapnia; G72.81 Critical illness myopathy; J14 Pneumonia due to Hemophilus influenzae; J43.2 Centrilobular emphysema; I10 Essential (primary) hypertension; E03.9 Hypothyroidism, unspecified; R91.8 Other nonspecific abnormal finding of lung field; R73.9 Hyperglycemia, unspecified; D72.829 Elevated white blood cell count, unspecified; Z79.82 Long term (current) use of aspirin; Z79.51 Long term (current) use of inhaled steroids; Z79.890 Hormone replacement therapy; Z79.899 Other long term (current) drug therapy; F17.210 Nicotine dependence, cigarettes, uncomplicated; Z20.822 Contact with and (suspected) exposure to COVID-19; Z91.199 Patient's noncompliance with other medical treatment and regimen due to unspecified reason; Z71.6 Tobacco abuse counseling; Z99.89 Dependence on other enabling machines and devices; Z82.49 Family history of ischemic heart disease and other diseases of the circulatory system; Z82.5 Family history of asthma and other chronic lower respiratory diseases; Z80.1 Family history of malignant neoplasm of trachea, bronchus and lung; Z80.8 Family history of malignant neoplasm of other organs or systems; Z80.49 Family history of malignant neoplasm of other genital organs; Z83.3 Family history of diabetes mellitus; Z82.3 Family history of stroke
CPT/HCPCS: 0202U; 31720; 36415; 36600; 71045; 71275; 80048; 80053; 81001; 82085; 82550; 82805; 82948; 83880; 84478; 84484; 85007; 85025; 87040; 87070; 87102; 87116; 87186; 87205; 87206; 87811; 93005; 94002; 94003; 94640; 94660; 94667; 94668; 94761; 94762; 94799; 96365; 96366; 96367; 96368; 96372; 96375; 96376; 97110; 97161; 97165; 97530; 97535; 99285; 99406; J2704; J2920; J2930; Q3014; Q9967

== ENCOUNTER 2023-05-03 14:20 | Outpatient (OUT) | payer MEDICARE, SELFPAY | END 2023-05-03 14:21 | disposition home or self-care (01) | LOC: PST 14:20 | PROVIDERS: PCP Family Medicine; Visit Provider Surgery | DX: Z01.818 Encounter for other preprocedural examination (principal); Z12.11 Encounter for screening for malignant neoplasm of colon ==

== ENCOUNTER 2023-05-12 08:20 | Day surgery (SDC) | payer MEDICARE, SELFPAY ==
--- NOTE | 2023-05-12 | OP_ITS ---
OPERATION DATE: 05/12/2023 PREOPERATIVE DIAGNOSIS: Colorectal screening. POSTOPERATIVE DIAGNOSIS: 4 mm sigmoid polyp. PROCEDURE: Colonoscopy to cecum with cold snare polypectomy x1. SURGEON: Kale Hanna M.D. ANESTHESIA: Monitored anesthesia care. ESTIMATED BLOOD LOSS: Less than 1 mL. INDICATIONS AND CONSENT: Patient is a 67-year-old female for colorectal screening. Indications, risks, benefits, alternatives of proceeding with colonoscopy were explained extensively to the patient, including the risks of bleeding, colon perforation or anesthetic complications. All of her questions were answered. Informed consent was obtained. PROCEDURE: Patient brought to the operating room, placed in the left lateral decubitus position. Monitored anesthesia care was provided. Rectal exam was performed which showed no masses or blood. The scope was inserted into the anal canal. Under direct visualization was advanced. With the aid of abdominal compression, it was advanced to the cecum where cecal markings were clearly identified. Upon withdrawal of the scope, mucosal surfaces were carefully examined. There were no mass lesions or inflammatory changes. No significant diverticulosis. Within the sigmoid colon, there was noted to be a 4 mm sessile polyp that was removed with cold snare with good hemostasis. The scope was retroflexed in the anal canal. There was no significant hemorrhoidal disease. Scope was then withdrawn. Patient tolerated procedure well, was sent to recovery room in good condition. f/u colonoscopy likely in 5 years. CC: Susy Kearney
[2023-05-12 08:34] VITALS: BP 127/67; PULSE 70; RESP 16; TEMP 36.4; O2SAT 96; BMI 29.7
--- OUTSIDE RECORDS SUMMARY | 2023-05-12 08:35 | XMS_ITS | CCD ---
Author Name Unknown Address [address] [place] [address] Organization [facility] Care Team Providers Care Diagnostic Sales Specialist Name Role Phone Niraula, Ezra Unavailable Unavailable PROVIDER, UNKNOWN Unavailable Unavailable JEF, OTTONIEL B Unavailable Unavailable Irene, Ottoniel Unavailable Unavailable PROVIDER, UNKNOWN Unavailable Unavailable Jef, Ottoniel Unavailable Unavailable DOZIER, DEEPIKAH Unavailable Unavailable PROVIDER, UNKNOWN Unavailable Unavailable Jef, Ottoniel Unavailable Unavailable FIGUEROA, MASROOR Unavailable Unavailable PROVIDER, UNKNOWN Unavailable Unavailable Irene, Ottoniel Unavailable Unavailable FIGUEROA, MASROOR Unavailable Unavailable PROVIDER, UNKNOWN Unavailable Unavailable Irene, Ottoniel Unavailable Unavailable Irene, Ottoniel Unavailable Unavailable PROVIDER, UNKNOWN Unavailable Unavailable Irene, Ottoniel Unavailable Unavailable FIGUEROA, MASROOR Unavailable Unavailable PROVIDER, UNKNOWN Unavailable Unavailable Irene, Ottoniel Unavailable Unavailable NIRAULA, EZRA Unavailable Unavailable Irene, Ottoniel Unavailable Unavailable Tsivitse, Eddi Unavailable Unavailable PROVIDER, UNKNOWN Unavailable Unavailable Jef, Ottoniel Unavailable Unavailable Irene, Ottoniel Primary Care Provider [phone] DR HANDY KEATING Consulting Unavailable SANDEEP, DR NICO Cadena Primary Care Unavailable SAMSA ., ALIS Attending Unavailable SAMSA ., ALIS Admitting Unavailable MADIESA ., ALIS Consulting Unavailable DR NICO HOPKINS Primary Care Unavailable SANDEEP, DR NICO Cadena Admitting Unavailable SANDEEP, DR NICO Cadena Attending Unavailable SANDEEP, DR NICO Cadena Consulting Unavailable DR HANDY KEATING Consulting Unavailable SANDEEP, DR NICO Cadena Primary Care Unavailable SAMSA ., ALIS Admitting Unavailable SAMSA ., ALIS Attending Unavailable SAMSA ., ALIS Consulting Unavailable DR DAYAMI JOLLY Consulting Unavailable SANDEEP, DR NICO Cadena Primary Care Unavailable TAL ., DANNI Admitting Unavailable TAL ., DANNI Attending Unavailable SAMSA ., ALIS Consulting Unavailable ARIANNA CEVALLOS Consulting Unavailable DAMASO ZHANG Consulting Unavailable TERESA GONZALEZ Consulting Unavailable TAL ., DANNI Consulting Unavailable TAL II, ANNALISA Consulting Unavailable DANNI PHELAN Consulting Unavailable SAMSA ., ALIS Admitting Unavailable DR NICO HOPKINS Primary Care Unavailable SAMSA ., ALIS Attending Unavailable SAMSA ., ALIS Consulting Unavailable SONIDO ., ALIS Admitting Unavailable DR NICO HOPKINS Primary Care Unavailable SAMSA ., ALIS Attending Unavailable SAMSA ., ALIS Consulting Unavailable HOWIE CAMPO Consulting Unavailable RODRIGUEZ SCHUSTER Consulting Unavailable SONIYA NARVAEZ Consulting Unavailable Ottoniel Fuchs MD Primary Care Provider NICO HOPKINS Attending Unavailable NICO HOPKINS Primary Care Physician Kale MARINELLI Attending Unavailable NICO HOPKINS Referring Unavailable Allergies Allergy Classification Reported Allergen(s) Allergy Type Date of Onset Reaction(s) Facility (1 source) No Known Medication Allergies; Translations: [No Known Medication Allergies] Propensity to adverse reactions (disorder) [facility] Repository Medications Current Medications Medication Drug Class(es) Dates Sig (Normalized) Sig (Original) Albuterol (2 sources) beta2-Adrenergic Agonist Start: 04-09-2023 take 2 puff(s) by inhalation every four hours Albuterol (Eqv-ProAir HFA) 2 puff(s), Inhalation, q4hr Shortness of breath or wheezing, Refill(s) 0 Start Date: 04/09/23 Status: Ordered Start: 09-09-2018 take 1 puff(s) by in halation every four hours as needed for wheezing albuterol sulfate (PROAIR RESPICLICK) 108 (90 Base) MCG/ACT aerosol powder inhalation Inhale 1 puff into the lungs every 4 hours as needed for Wheezing 1 Inhaler 2 09/09/2018 Active albuterol 0.833 mg/ml / ipratropium bromide 0.167 mg/ml inhalant solution (1 source) Anticholinergic, beta2-Adrenergic Agonist Start: 09-09-2018 take 3 mL by inhalation every four hours ipratropium-albuterol (DUONEB) 0.5-2.5 (3) MG/3ML SOLN nebulizer solution Indications: Bronchiectasis without complication (HCC) Inhale 3 mLs into the lungs every 4 hours 360 mL 1 09/09/2018 Active amLODIPine 5 mg oral tablet (1 source) Dihydropyridine Calcium Channel Jovita Start: 04-09-2023 take 1 tablet by mouth once daily amLODIPine 5 mg Tab 5 mg = 1 tab(s), Oral, Daily, Refills(s) 0 Start Date: 04/09/23 Status: Ordered aspirin 81 mg delayed release oral tablet (2 sources) Platelet Aggregation Inhibitor, Nonsteroidal Anti-inflammatory Drug Start: 04-09-2023 take 1 tablet by mouth once daily aspirin 81 mg Oral EC Tab 81 mg = 1 tab(s), Oral, Daily, Refills(s) 0 Start Date: 04/09/23 Status: Ordered take 1 tablet by mouth once ekaterina y aspirin 81 MG tablet Take 81 mg by mouth daily 0 Active Calcium Carbonate / Vitamin D (1 source) Start: 05-21-2010 Calcium Carbonate-Vitamin D (CALCIUM + D PO) Take by mouth daily 0 05/21/2010 Active fluticasone propionate 0.05 mg/actuat metered dose nasal spray (1 source) Corticosteroid Start: 04-09-2023 Flonase 0.05 mg/inh [place] 100 mcg, Nasal, Daily, Refill(s) 0 Start Date: 04/09/23 Status: Ordered fluticasone / vilanterol (2 sources) Corticosteroid, beta2-Adrenergic Agonist Start: 04-09-2023 take 1 puff(s) by inhalation once daily Breo Ellipta 100 mcg-25 mcg inhalation powder 1 puff(s), Inhalation, Daily, Refill(s) 2 Start Date: 04/09/23 Status: Ordered Start: 08-09-2019 take 1 puff(s) by in halation once daily fluticasone-vilanterol (BREO ELLIPTA) 100-25 MCG/INH AEPB inhaler Indications: Panlobular emphysema (HCC) Inhale 1 puff into the lungs daily 180 each 3 08/09/2019 Active levothyroxine sodium 0.112 mg oral tablet (2 sources) l-Thyroxine Start: 04-09-2023 take 1 tablet by mouth once daily levothyroxine 112 mcg (0.112 mg) Tab 112 mcg = 1 tab(s), Oral, Daily, Refills(s) 0 Start Date: 04/09/23 Status: Ordered Start: 08-09-2019 take 1 tablet by shelby th once daily levothyroxine (SYNTHROID) 112 MCG tablet Indications: Postoperative hypothyroidism Take 1 tablet by mouth Daily 90 tablet 3 08/09/2019 Active losartan potassium 50 mg oral tablet (2 sources) Angiotensin 2 Receptor Jovita Start: 04-09-2023 take 1 tablet by mouth once daily losartan 50 mg Tab 50 mg = 1 tab(s), Oral, Daily, Refills(s) 0 Start Date: 04/09/23 Status: Ordered Start: 08-09-2019 take 1 tablet by shelby th once daily losartan (COZAAR) 50 MG tablet Indications: HTN (hypertension), benign Take 1 tablet by mouth daily 90 tablet 3 08/09/2019 Active Multiple Vitamin TABS (1 source) take 1 tablet by mouth once daily Multiple Vitamin TABS Take 1 tablet by mouth daily 0 Active Multivitamin preparation (1 source) Start: 04-09-2023 take 1 tablet by mouth once daily multivitamin 1 tab, Oral, Daily, Refill(s) 0 Start Date: 04/09/23 Status: Ordered sodium chloride 0.9% Inj 10 mL Vial (1 source) Start: 04-09-2023 sodium chloride 0.9% Inj 10 mL Vial 1 inh, NEB, TID, Refill(s) 0 Start Date: 04/09/23 Status: Ordered Problems Active Problems Problem Classification Problem Date Documented Date Episodic/Chronic Chronic obstructive pulmonary disease and bronchiectasis (19 sources) Emphysema, unspecified; Translations: [Bronchiectasis, uncomplicated] Onset: 12-25-2016 12-25-2016 Chronic Complications of surgical procedures or medical care (4 sources) Postprocedural hypothyroidism; Translations: [Postoperative hypothyroidism] Onset: 12-13-2014 12-25-2015 Chronic Coronary atherosclerosis and other heart disease (2 sources) Atherosclerotic heart disease of [place] coronary artery without angina pectoris; Translations: [Athscl heart disease of [place] coronary artery w/o ang pctrs] Onset: 03-08-2018 Chronic Deficiency and other anemia (2 sources) Anemia, unspecified; Translations: [Anemia, unspecified] Onset: 04-04-2018 Episodic Esophageal disorders (1 source) Gastro-esophageal reflux disease without esophagitis; Translations: [GERD WITHOUT ESOPHAGITIS] Onset: 12-07-2022 Chronic Essential hypertension (6 sources) Essential (primary) hypertension; Translations: [Benign hypertension] Onset: 12-25-2015 12-25-2015 Chronic Menopausal disorders (1 source) Hormone replacement therapy; Translations: [HORMONE REPLACEMENT THERAPY] Onset: 09-22-2022 Episodic Other aftercare (1 source) long term acute care registered nurse (current) use of aspirin; Translations: [KNOWLEDGE ANALYST CURRENT USE OF ASPIRIN] Onset: 09-22-2022 Episodic Other aftercare (5 sources) Other inter[employer] customer service (current) drug therapy; Translations: [OTH KNOWLEDGE ANALYST CURRENT DRUG THERAPY] Onset: 10-30-2021 Episodic Other lower respiratory disease (2 sources) Solitary pulmonary nodule; Translations: [Solitary pulmonary nodule] Onset: 03-08-2018 Episodic Other lower respiratory disease (2 sources) Hemoptysis; Translations: [Hemoptysis] Onset: 04-04-2018 Episodic Other lower respiratory disease (4 sources) Other nonspecific abnormal finding of lung field; Translations: [OTH NONSPECIFIC ABN FIND LNG FIELD] Onset: 09-01-2022 Episodic Other lower respiratory disease (1 source) Multiple nodules of lung 04-09-2023 Episodic Other nutritional; endocrine; and metabolic disorders (1 source) Body mass index 30+ - obesity 04-21-2023 Chronic Other nutritional; endocrine; and metabolic disorders (1 source) Obesity 04-21-2023 Chronic Other screening for suspected conditions (not mental disorders or infectious disease) (3 sources) Encounter for screening mammogram for malignant neoplasm of breast; Translations: [Screening for malignant neoplasm of colon done] Onset: 02-22-2018 Episodic Residual codes; unclassified (2 sources) Asymptomatic menopausal state; Translations: [Asymptomatic menopausal state] Onset: 02-22-2018 Episodic Respiratory failure; insufficiency; arrest (adult) (1 source) Chronic hypoxemic respiratory failure 04-09-2023 Chronic Screening and history of mental health and substance abuse codes (1 source) Ex-tobacco user 04-21-2023 Episodic Substance-related disorders (11 sources) Nicotine dependence, cigarettes, uncomplicated; Translations: [Tobacco dependence syndrome] Onset: 12-13-2014 12-29-2018 Chronic Thyroid disorders (4 sources) Hypothyroidism, unspecified; Translations: [Hypothyroidism] Onset: 08-14-2017 04-09-2023 Chronic Unclassified (2 sources) Abnormal findings on dx imaging of oth body structures; Translations: [Abnormal findings on dx imaging of ot body structures] Onset: 04-04-2018 Unclassified (1 source) CONTACT W/AND (SUSP) EXPOS COVID-19; Translations: [CONTACT W/AND (SUSP) EXPOS COVID-19] Onset: 03-23-2022 Unclassified (1 source) Patient encounter status 04-21-2023 Past or Other Problems Problem Classification Problem Date Documented Da te Episodic/Chronic Diabetes mellitus without complication (2 sources) Prediabetes; Translations: [Prediabetes] Onset: 12-29-2018 12-29-2018 Episodic Other injuries and conditions due to external causes (1 source) Other foreign object in bronchus causing asphyxiation, initial encounter; Translations: [OTH FOREGN OBJ BRON ASPHYX INIT ENC] Onset: 04-01-2022 Episodic Other lower respiratory disease (2 sources) Cough; Translations: [Cough] Onset: 08-14-2017 Episodic Other lower respiratory disease (1 source) Lung mass; Translations: [Lung nodule] Onset: 12-25-2016 09-03-2017 Episodic Other lower respiratory disease (1 source) Nodule of lung; Translations: [Solitary pulmonary nodule] Onset: 09-03-2017 02-08-2022 Episodic Poisoning by other medications and drugs (1 source) Angiotensin-conve rting-enzyme inhibitor adverse reaction; Translations: [CARYL-inhibitor cough] Onset: 12-13-2014 Resolved: 12-25-2016 12-25-2016 Episodic Results Test Name Value Interpretation Reference Range Facility Consent for Procedure/Surger yon 04-23-2023 Consent for Procedure/Surgery [id number] 0TIFF [facility] Facesheeton 04-22-2023 Facesheet [id number]. 00TIFF [facility] Ambulatory Visit Summaryon 1 06-22-2022 Ambulatory Visit Summary ERICA CHACON :1955 Visit Date:04/21/2023 Ambulatory Visit Instructions Your Diagnosis Screening for malignant neoplasm of colon Your Care Team Attending Physician - ISIS ALCANTAR, Kale Gonzalez Primary Care Physician - SANDEEP ALCANTAR, NICO Referring Physician - NICO HOPKINS MD This Is Your Medications List Contact prescribing physician if questions or concerns albuterol (Albuterol (Eqv-ProAir HFA)) amlodipine (amLODIPine 5 mg Tab) aspirin (aspirin 81 mg Oral EC Tab) fluticasone nasal (Flonase 0.05 mg/inh [place]) fluticasone-vilanterol (Breo Ellipta 100 mcg-25 mcg inhalation powder) levothyroxine (levothyroxine 112 mcg (0.112 mg) Tab) losartan (losartan 50 mg Tab) multivitamin sodium chloride (sodium chloride 0.9% Inj 10 mL Vial) Procedures Performed Bronchoscopy, Cataract extraction, section, section, Colonoscopy, Laparoscopy, Thyroidectomy, Tubal ligation. Discharge Vitals Heart Rate (Peripheral) 72 Respiratory Rate 16 Blood Pressure 128/78 Height 162.5 cm Height 64 in Weight 79.9 kg Weight 175.78 lb BMI 30.26 Medications What How Much When Instructions Unchanged albuterol (Albuterol (Eqv-ProAir HFA)) 2 Puffs Inhalation Every 4 hours as needed for Shortness of breath or wheezing Contact prescribing physician if questions or concerns Unchanged amlodipine (amLODIPine 5 mg Tab) 1 Tablets By Mouth Every day Contact prescribing physician if questions or concerns Unchanged aspirin (aspirin 81 mg Oral EC Tab) 1 Tablets By Mouth Every day Contact prescribing physician if questions or concerns Unchanged fluticasone nasal (Flonase 0.05 mg/ inh [place]) 100 Microgram Nasal Inhalation Every day Contact prescribing physician if questions or concerns Unchanged fluticasone-vilanterol (Breo Ellipta 100 mcg-25 mcg inhalation powder) 1 Puffs Inhalation Every day Contact prescribing physician if questions or concerns Unchanged levothyroxine (levothyroxine 112 mcg (0.112 mg) Tab) 1 Tablets By Mouth Every day Contact prescribing physician if questions or concerns Unchanged losartan (losartan 50 mg Tab) 1 Tablets By Mouth Every day Contact prescribing physician if questions or concerns Unchanged multivitamin 1 tab By Mouth Every day Contact prescribing physician if questions or concerns Unchanged sodium chloride (sodium chloride 0.9% Inj 10 mL Vial) 1 Inhalation Nebulized inhalation (aerosol) 3 times a day Contact prescribing physician if questions or concerns Allergies No Known Allergies No Known Medication Allergies Problems Ongoing - Any problem that you are currently receiving treatment for. BMI 30.0-30.9,adult Centrilobular emphysema Chronic respiratory failure with hypoxia Former tobacco use HTN (hypertension) Hypothyroidism Multiple pulmonary nodules Obesity Screening for malignant neoplasm of colon Historical - Any problem that you are no longer receiving treatment for. Nicotine dependence Patient Survey You may receive a survey via text or e-mail asking about your office visit. Please share your experience with us by completing your survey. We appreciate your feedback and thank you for choosing us for your care. Normal [facility] Transfer Inon 04-06-2023 Transfer In [id number] 20 [id number] 0TIFF Normal [facility] Physician Referralon 023 Physician Referral [id number] 0TIFF Normal [facility] CBC AUTO DIFFon 09-23-2022 BASO # 0.0 103/ul Normal 0.0-0.1 [facility] Comment on above: Performed By: #### C YTO #### [facility] [address] [place] [address] Dr. Jayy Marquez Basophils/100 WBC (Bld) 0.4 % Normal 0.2-2.0 [facility] Comment on above: Performed By: #### C YTO #### [facility] [address] [place] [address] Dr. Jayy Marquez EO # 0.1 103/ul Normal 0.0-0.7 [facility] Comment on above: Performed By: #### C YTO #### [facility] [address] [address] [address] Jayy Marquez Eosinophils/100 WBC (Bld) 0.5 % Critically low 0.9-7.0 [facility] Comment on above: Performed By: #### C YTO #### [facility] [address] [place] [address] Dr. Jayy Marquez Erythrocyte distribution width (RBC) [Ratio] 13.1 % Normal 11.0-15.0 [facility] Comment on above: Performed By: #### C YTO #### [facility] [address] [place] [address] Dr. Jayy Marquez Hematocrit (Bld) [Volume fraction] 43.0 % Normal 36.0-48.0 [facility] Comment on above: Performed By: #### C YTO #### [facility] [address] [place] [address] Dr. Jayy Marquez Hemoglobin (Bld) [Mass/Vol] 13.9 g/dL Normal 12.0-16.0 [facility] Comment on above: Performed By: #### C YTO #### [facility] [address] [place] [address] Dr. Jayy Marquez IG # 0.04 10e3/ul Critically high 0.00-0.03 [facility] Comment on above: Performed By: #### C YTO #### [facility] [address] [place] [address] Dr. Jayy Marquez IG % 0.4 % Normal 0.0-0.5 [facility] Comment on above: Performed By: #### C YTO #### [facility] [address] [place] [address] Dr. Jayy Marquez LYMPH # 0.7 103/ul Critically low 1.2-3.8 [facility] Comment on above: Performed By: #### C YTO #### [facility] [address] [place] [address] Dr. Jayy Marquez Lymphocytes/100 WBC (Bld) 6.7 % Critically low 20.5-60.0 [facility] Comment on above: Performed By: #### C YTO #### [facility] [address] [place] [address] Dr. Jayy Marquez MANUAL DIFF REQ NO Normal [facility] Comment on above: Performed By: #### C YTO #### [facility] [address] [place] [address] Dr. Jayy Marquez MCH (RBC) [Entitic mass] 31.2 pg Normal 26.7-34.0 [facility] Comment on above: Performed By: #### C YTO #### [facility] [address] [place] [address] Dr. Jayy Marquez MCHC (RBC) [Mass/Vol] 32.3 g/dL Normal 29.9-35.2 [facility] Comment on above: Performed By: #### C YTO #### [facility] [address] [place] [address] Dr. Jayy Marquez MCV (RBC) [Entitic vol] 96.4 fL Normal 81.0-99.0 [facility] Comment on above: Performed By: #### C YTO #### [facility] [address] [place] [address] Dr. Jayy Marquez MONO # 0.9 103/ul Critically high 0.3-0.8 [facility] Comment on above: Performed By: #### C YTO #### [facility] [address] [place] [address] Dr. Jayy Marquez Monocytes/100 WBC (Bld) 8.2 % Normal 1.7-12.0 [facility] Comment on above: Performed By: #### C YTO #### [facility] [address] [place] [address] Dr. Jayy Marquez NEUT # 9.0 103/ul Critically high 1.4-6.5 [facility] Comment on above: Performed By: #### C YTO #### [facility] [address] [place] [address] Dr. Jayy Marquez Neutrophils/100 WBC (Bld) 83.8 % Critically high 43.0-75.0 [facility] Comment on above: Performed By: #### C YTO #### [facility] [address] [place] [address] Dr. Jayy Marquez Platelet mean volume (Bld) [Entitic vol] 10.4 fL Normal 9.5-13.5 [facility] Comment on above: Performed By: #### C YTO #### [facility] [address] [place] [address] Dr. Jayy Marquez PLT 232 103/ul Normal 150-450 [facility] Comment on above: Performed By: #### C YTO #### [facility] [address] [place] [address] Dr. Jayy Marquez RBC 4.46 106/ul Normal 4.20-5.40 [facility] Comment on above: Performed By: #### C YTO #### [facility] [address] [place] [address] Dr. Jayy Marquez WBC 10.7 103/ul Normal 4.0-11.0 [facility] Comment on above: Performed By: #### C YTO #### [facility] [address] [place] [address] Dr. Jayy Marquez PROF CHEM 8 (BAS METB)on Anion gap [Moles/Vol] 13.4 mmol/L Normal [facility] Comment on above: Performed By: #### B MP #### [facility] [address] [place] [address] Dr. Jayy Marquez Calcium [Mass/Vol] 9.1 mg/dL Normal 8.5-10.1 [facility] Comment on above: Performed By: #### B MP #### [facility] [address] [place] [address] Dr. Jayy Marquez Chloride [Moles/Vol] 100 mmol/L Normal 98-107 [facility] Comment on above: Performed By: #### B MP #### [facility] [address] [place] [address] Dr. Jayy Marquez CO2 [Moles/Vol] 27.2 mmol/L Normal 21.0-32.0 [facility] Comment on above: Performed By: #### B MP #### [facility] [address] [place] [address] Dr. Jayy Marquez Creatinine [Mass/Vol] 0.77 mg/dL Normal 0.55-1.02 [facility] Comment on above: Performed By: #### B MP #### [facility] [address] [place] [address] Dr. Jayy Marquez EGFR-AF OMANI >60 Normal >=60 [facility] Comment on above: Performed By: #### B MP #### [facility] [address] [place] [address] Dr. Jayy Marquez EGFR-NON AF OMANI >60 Normal >=60 [facility] Comment on above: Performed By: #### B MP #### [facility] [address] [address] [address] Jayy Marquez Glucose [Mass/Vol] 173 mg/dL Critically high 74-106 [facility] Comment on above: Performed By: #### B MP #### [facility] [address] [address] [address] Jayy Marquez Potassium [Moles/Vol] 4.6 mmol/L Normal 3.5-5.1 [facility] Comment on above: Performed By: #### B MP #### [facility] [address] [address] [address] Jayy Marquez Sodium [Moles/Vol] 136 mmol/L Normal 136-145 [facility] Comment on above: Performed By: #### B MP #### [facility] [address] [address] [address] Jayy Marquez Urea nitrogen [Mass/Vol] 16.0 mg/dL Normal 7.0-18.0 [facility] Comment on above: Performed By: #### B MP #### [facility] [address] [address] [address] Jayy Marquez Urea nitrogen/Creatinine [Mass ratio] 20.8 mg/mg Normal [facility] Comment on above: Performed By: #### B MP #### [facility] [address] [address] [address] Jayy Marquez XR CHEST 1 Von 09-23-2022 XR CHEST 1 V EXAM: XR CHEST 1 V HISTORY: SHORTNESS OF BREATH COMPARISON: 09/22/2022 TECHNIQUE: AP view of the chest. FINDINGS: The cardiomediastinal silhouette is normal. Interstitial opacity. There is no pneumothorax. No pleural effusion is noted. The osseous structures are intact. IMPRESSION: Mild congestion. Electronically authenticated by: ELENO FUENTES Date: 2022-09-23 14:29 Normal [facility] BNPon 09-22-2022 Natriuretic peptide B (Bld) [Mass/Vol] 243.0 pg/mL Normal <=900.0 [facility] Comment on above: Performed By: #### B MP, BNP, HSTROPN #### [facility] [address] [place] [address] Dr. Jayy Marquez CBC AUTO DIFFon 09-22-2022 BASO # 0.0 103/ul Normal 0.0-0.1 [facility] Comment on above: Performed By: #### C VDAGS #### [facility] [address] [place] [address] Dr. Jayy Marquez Basophils/100 WBC (Bld) 0.4 % Normal 0.2-2.0 [facility] Comment on above: Performed By: #### C VDAGS #### [facility] [address] [place] [address] Dr. Jayy Marquez EO # 0.0 103/ul Normal 0.0-0.7 [facility] Comment on above: Performed By: #### C VDAGS #### [facility] [address] [place] [address] Dr. Jayy Marquez Eosinophils/100 WBC (Bld) 0.0 % Critically low 0.9-7.0 [facility] Comment on above: Performed By: #### C VDAGS #### [facility] [address] [place] [address] Dr. Jayy Marquez Erythrocyte distribution width (RBC) [Ratio] 13.1 % Normal 11.0-15.0 [facility] Comment on above: Performed By: #### C VDAGS #### [facility] [address] [place] [address] Dr. Jayy Marquez Hematocrit (Bld) [Volume fraction] 42.7 % Normal 36.0-48.0 [facility] Comment on above: Performed By: #### C VDAGS #### [facility] [address] [place] [address] Dr. Jayy Marquez Hemoglobin (Bld) [Mass/Vol] 13.9 g/dL Normal 12.0-16.0 [facility] Comment on above: Performed By: #### C VDAGS #### [facility] [address] [place] [address] Dr. Jayy Marquez IG # 0.03 10e3/ul Normal 0.00-0.03 [facility] Comment on above: Performed By: #### C VDAGS #### [facility] [address] [place] [address] Dr. Jayy Marquez IG % 0.4 % Normal 0.0-0.5 [facility] Comment on above: Performed By: #### C VDAGS #### [facility] [address] [place] [address] Dr. Jayy Marquez LYMPH # 0.4 103/ul Critically low 1.2-3.8 [facility] Comment on above: Performed By: #### C VDAGS #### [facility] [address] [place] [address] Dr. Jayy Marquez Lymphocytes/100 WBC (Bld) 5.5 % Critically low 20.5-60.0 [facility] Comment on above: Performed By: #### C VDAGS #### [facility] [address] [place] [address] Dr. Jayy Marquez MANUAL DIFF REQ NO Normal [facility] Comment on above: Performed By: #### C VDAGS #### [facility] [address] [place] [address] Dr. Jayy Marquez MCH (RBC) [Entitic mass] 31.2 pg Normal 26.7-34.0 [facility] Comment on above: Performed By: #### C VDAGS #### [facility] [address] [place] [address] Dr. Jayy Marquez MCHC (RBC) [Mass/Vol] 32.6 g/dL Normal 29.9-35.2 [facility] Comment on above: Performed By: #### C VDAGS #### [facility] [address] [place] [address] Dr. Jayy Marquez MCV (RBC) [Entitic vol] 96.0 fL Normal 81.0-99.0 [facility] Comment on above: Performed By: #### C VDAGS #### [facility] [address] [address] [address] Jayy Marquez MONO # 0.3 103/ul Normal 0.3-0.8 [facility] Comment on above: Performed By: #### C VDAGS #### [facility] [address] [place] [address] Dr. Jayy Marquez Monocytes/100 WBC (Bld) 3.5 % Normal 1.7-12.0 [facility] Comment on above: Performed By: #### C VDAGS #### [facility] [address] [place] [address] Dr. Jayy Maqruez NEUT # 6.9 103/ul Critically high 1.4-6.5 [facility] Comment on above: Performed By: #### C VDAGS #### [facility] [address] [place] [address] Dr. Jayy Marquez Neutrophils/100 WBC (Bld) 90.2 % Critically high 43.0-75.0 [facility] Comment on above: Performed By: #### C VDAGS #### [facility] [address] [place] [address] Dr. Jayy Marquez Platelet mean volume (Bld) [Entitic vol] 9.8 fL Normal 9.5-13.5 [facility] Comment on above: Performed By: #### C VDAGS #### [facility] [address] [place] [address] Dr. Jayy Marquez PLT 207 103/ul Normal 150-450 [facility] Comment on above: Performed By: #### C VDAGS #### [facility] [address] [place] [address] Dr. Jayy Marquez RBC 4.45 106/ul Normal 4.20-5.40 [facility] Comment on above: Performed By: #### C VDAGS #### [facility] [address] [place] [address] Dr. Jayy Marquez WBC 7.6 103/ul Normal 4.0-11.0 [facility] Comment on above: Performed By: #### C VDAGS #### [facility] [address] [place] [address] Dr. Jayy Marquez BASO # 0.0 103/ul Normal 0.0-0.1 [facility] Comment on above: Performed By: #### C BC #### [facility] [address] [address] [address] Jayy Marquez Basophils/100 WBC (Bld) 0.4 % Normal 0.2-2.0 [facility] Comment on above: Performed By: #### C BC #### [facility] [address] [address] [address] Jayy Marquez EO # 0.1 103/ul Normal 0.0-0.7 [facility] Comment on above: Performed By: #### C BC #### [facility] [address] [place] [address] Dr. Jayy Marquez Eosinophils/100 WBC (Bld) 1.4 % Normal 0.9-7.0 [facility] Comment on above: Performed By: #### C BC #### [facility] [address] [place] [address] Dr. Jayy Marquez Erythrocyte distribution width (RBC) [Ratio] 13.2 % Normal 11.0-15.0 [facility] Comment on above: Performed By: #### C BC #### [facility] [address] [place] [address] Dr. Jayy Marquez Hematocrit (Bld) [Volume fraction] 45.5 % Normal 36.0-48.0 [facility] Comment on above: Performed By: #### C BC #### [facility] [address] [place] [address] Dr. Jayy Marquez Hemoglobin (Bld) [Mass/Vol] 15.3 g/dL Normal 12.0-16.0 [facility] Comment on above: Performed By: #### C BC #### [facility] [address] [place] [address] Dr. Jayy Marquez IG # 0.03 10e3/ul Normal 0.00-0.03 [facility] Comment on above: Performed By: #### C BC #### [facility] [address] [place] [address] Dr. Jayy Marquez IG % 0.3 % Normal 0.0-0.5 [facility] Comment on above: Performed By: #### C BC #### [facility] [address] [place] [address] Dr. Jayy Marquez LYMPH # 1.3 103/ul Normal 1.2-3.8 [facility] Comment on above: Performed By: #### C BC #### [facility] [address] [place] [address] Dr. Jayy Marquez Lymphocytes/100 WBC (Bld) 13.8 % Critically low 20.5-60.0 [facility] Comment on above: Performed By: #### C BC #### [facility] [address] [place] [address] Dr. Jayy Marquez MANUAL DIFF REQ NO Normal [facility] Comment on above: Performed By: #### C BC #### [facility] [address] [place] [address] Dr. Jayy Marquez MCH (RBC) [Entitic mass] 32.0 pg Normal 26.7-34.0 [facility] Comment on above: Performed By: #### C BC #### [facility] [address] [place] [address] Dr. Jayy Marquez MCHC (RBC) [Mass/Vol] 33.6 g/dL Normal 29.9-35.2 [facility] Comment on above: Performed By: #### C BC #### [facility] [address] [place] [address] Dr. Jayy Marquez MCV (RBC) [Entitic vol] 95.2 fL Normal 81.0-99.0 [facility] Comment on above: Performed By: #### C BC #### [facility] [address] [place] [address] Dr. Jayy Marquez MONO # 1.3 103/ul Critically high 0.3-0.8 [facility] Comment on above: Performed By: #### C BC #### [facility] [address] [place] [address] Dr. Jayy Marquez Monocytes/100 WBC (Bld) 13.7 % Critically high 1.7-12.0 [facility] Comment on above: Performed By: #### C BC #### [facility] [address] [place] [address] Dr. Jayy Marquez NEUT # 6.7 103/ul Critically high 1.4-6.5 [facility] Comment on above: Performed By: #### C BC #### [facility] [address] [place] [address] Dr. Jayy Marquez Neutrophils/100 WBC (Bld) 70.4 % Normal 43.0-75.0 [facility] Comment on above: Performed By: #### C BC #### [facility] [address] [place] [address] Dr. Jayy Marquez Platelet mean volume (Bld) [Entitic vol] 9.6 fL Normal 9.5-13.5 [facility] Comment on above: Performed By: #### C BC #### [facility] [address] [place] [address] Dr. Jayy Marquez PLT 218 103/ul Normal 150-450 [facility] Comment on above: Performed By: #### C BC #### [facility] [address] [place] [address] Dr. Jayy Marquez RBC 4.78 106/ul Normal 4.20-5.40 [facility] Comment on above: Performed By: #### C BC #### [facility] [address] [place] [address] Dr. Jayy Marquez WBC 9.5 103/ul Normal 4.0-11.0 [facility] Comment on above: Performed By: #### C BC #### [facility] [address] [place] [address] Dr. Jayy Marquez PROF CHEM 8 (BAS METB)on Anion gap [Moles/Vol] 11.3 mmol/L Normal [facility] Comment on above: Performed By: #### B MP #### [facility] [address] [place] [address] Dr. Jayy Marquez Calcium [Mass/Vol] 8.7 mg/dL Normal 8.5-10.1 [facility] Comment on above: Performed By: #### B MP #### [facility] [address] [place] [address] Dr. Jayy Marquez Chloride [Moles/Vol] 100 mmol/L Normal 98-107 [facility] Comment on above: Performed By: #### B MP #### [facility] [address] [place] [address] Dr. Jayy Marquez CO2 [Moles/Vol] 27.6 mmol/L Normal 21.0-32.0 [facility] Comment on above: Performed By: #### B MP #### [facility] [address] [place] [address] Dr. Jayy Marquez Creatinine [Mass/Vol] 0.82 mg/dL Normal 0.55-1.02 [facility] Comment on above: Performed By: #### B MP #### [facility] [address] [place] [address] Dr. Jayy Marquez EGFR-AF OMANI >60 Normal >=60 [facility] Comment on above: Performed By: #### B MP #### [facility] [address] [place] [address] Dr. Jayy Marquez EGFR-NON AF OMANI >60 Normal >=60 [facility] Comment on above: Performed By: #### B MP #### [facility] [address] [place] [address] Dr. Jayy Marquez Glucose [Mass/Vol] 203 mg/dL Critically high 74-106 [facility] Comment on above: Performed By: #### B MP #### [facility] [address] [place] [address] Dr. Jayy Marquez Potassium [Moles/Vol] 3.9 mmol/L Normal 3.5-5.1 [facility] Comment on above: Performed By: #### B MP #### [facility] [address] [place] [address] Dr. Jayy Marquez Sodium [Moles/Vol] 135 mmol/L Critically low 136-145 [facility] Comment on above: Performed By: #### B MP #### [facility] [address] [address] [address] Jayy Marquez Urea nitrogen [Mass/Vol] 11.0 mg/dL Normal 7.0-18.0 [facility] Comment on above: Performed By: #### B MP #### [facility] [address] [address] [address] Jayy Marquez Urea nitrogen/Creatinine [Mass ratio] 13.4 mg/mg Normal [facility] Comment on above: Performed By: #### B MP #### [facility] [address] [address] [address] Jayy Marquez Anion gap [Moles/Vol] 12.9 mmol/L Normal [facility] Comment on above: Performed By: #### C YTO #### [facility] [address] [place] [address] Dr. Jayy Marquez Calcium [Mass/Vol] 9.2 mg/dL Normal 8.5-10.1 [facility] Comment on above: Performed By: #### C YTO #### [facility] [address] [address] [address] Jayy Marquez Chloride [Moles/Vol] 98 mmol/L Normal 98-107 [facility] Comment on above: Performed By: #### C YTO #### [facility] [address] [address] [address] Jayy Marquez CO2 [Moles/Vol] 25.8 mmol/L Normal 21.0-32.0 [facility] Comment on above: Performed By: #### C YTO #### [facility] [address] [address] [address] Jayy Marquez Creatinine [Mass/Vol] 0.90 mg/dL Normal 0.55-1.02 [facility] Comment on above: Performed By: #### C YTO #### [facility] [address] [address] [address] Jayy Marquez EGFR-AF OMANI >60 Normal >=60 [facility] Comment on above: Performed By: #### C YTO #### [facility] [address] [place] [address] Dr. Jayy Marquez EGFR-NON AF OMANI >60 Normal >=60 [facility] Comment on above: Performed By: #### C YTO #### [facility] [address] [address] [address] Jayy Marquez Glucose [Mass/Vol] 150 mg/dL Critically high 74-106 [facility] Comment on above: Performed By: #### C YTO #### [facility] [address] [address] [address] Jayy Marquez Potassium [Moles/Vol] 3.7 mmol/L Normal 3.5-5.1 [facility] Comment on above: Performed By: #### C YTO #### [facility] [address] [place] [address] Dr. Jayy Marquez Sodium [Moles/Vol] 133 mmol/L Critically low 136-145 [facility] Comment on above: Performed By: #### C YTO #### [facility] [address] [place] [address] Dr. Jayy Marquez Urea nitrogen [Mass/Vol] 14.0 mg/dL Normal 7.0-18.0 [facility] Comment on above: Performed By: #### C YTO #### [facility] [address] [place] [address] Dr. Jayy Marquez Urea nitrogen/Creatinine [Mass ratio] 15.6 mg/mg Normal [facility] Comment on above: Performed By: #### C YTO #### [facility] [address] [place] [address] Dr. Jayy Marquez RESPIRATORY PANEL PLUSon Adenovirus Not detected Normal NOT DETECTED [facility] Comment on above: Performed By: #### C VDAGS #### [facility] [address] [place] [address] Dr. Jayy Clemons Parapertusis Not detected Normal NOT DETECTED [facility] Comment on above: Performed By: #### C VDAGS #### [facility] [address] [place] [address] Dr. Jayy Clemons Pertussis Not detected Normal NOT DETECTED [facility] Comment on above: Performed By: #### C VDAGS #### [facility] [address] [place] [address] Dr. Jayy Marquez Chlamydia Pneumoniae Not detected Normal NOT DETECTED [facility] Comment on above: Performed By: #### C VDAGS #### [facility] [address] [place] [address] Dr. Jayy Marquez Coronavirus 229E Not detected Normal NOT DETECTED [facility] Comment on above: Performed By: #### C VDAGS #### [facility] [address] [place] [address] Dr. Jayy Marquez Coronavirus HKU1 Not detected Normal NOT DETECTED [facility] Comment on above: Performed By: #### C VDAGS #### [facility] [address] [place] [address] Dr. Jayy Marquez Coronavirus NL63 Not detected Normal NOT DETECTED [facility] Comment on above: Performed By: #### C VDAGS #### [facility] [address] [place] [address] Dr. Jayy Marquez Coronavirus OC43 Not detected Normal NOT DETECTED [facility] Comment on above: Performed By: #### C VDAGS #### [facility] [address] [place] [address] Dr. Jayy Marquez Influenza A H1 Not detected Normal NOT DETECTED [facility] Comment on above: Performed By: #### C VDAGS #### [facility] [address] [place] [address] Dr. Jayy Marquez Influenza A H1 2009 Not detected Normal NOT DETECTED [facility] Comment on above: Performed By: #### C VDAGS #### [facility] [address] [place] [address] Dr. Jayy Marquez Influenza A H3 Not detected Normal NOT DETECTED [facility] Comment on above: Performed By: #### C VDAGS #### [facility] [address] [place] [address] Dr. Jayy Marquez Influenza B Not detected Normal NOT DETECTED [facility] Comment on above: Performed By: #### C VDAGS #### [facility] [address] [address] [address] Jayy Marquez Metapneumovirus Not detected Normal NOT DETECTED [facility] Comment on above: Performed By: #### C VDAGS #### [facility] [address] [address] [address] Jayy Marquez Mycoplas. Pneumoniae Not detected Normal NOT DETECTED [facility] Comment on above: Performed By: #### C VDAGS #### [facility] [address] [address] [address] Jayy Marquez Parainfluenza 1 Not detected Normal NOT DETECTED [facility] Comment on above: Performed By: #### C VDAGS #### [facility] [address] [address] [address] Jayy Marquez Parainfluenza 2 Not detected Normal NOT DETECTED [facility] Comment on above: Performed By: #### C VDAGS #### [facility] [address] [place] [address] Dr. Jayy Marquez Parainfluenza 3 Not detected Normal NOT DETECTED [facility] Comment on above: Performed By: #### C VDAGS #### [facility] [address] [place] [address] Dr. Jayy Marquez Parainfluenza 4 Not detected Normal NOT DETECTED [facility] Comment on above: Performed By: #### C VDAGS #### [facility] [address] [address] [address] Jayy Marquez Rhino/Enterovirus Not detected Normal NOT DETECTED [facility] Comment on above: Performed By: #### C VDAGS #### [facility] [address] [place] [address] Dr. Jayy FAIR Header 1 RESPIRATORY PANEL: VIRUSES Normal [facility] Comment on above: Performed By: #### C VDAGS #### [facility] [address] [address] [address] Jayy FAIR Header 2 RESPIRATORY PANEL: BACTERIA Normal [facility] Comment on above: Performed By: #### C VDAGS #### [facility] [address] [place] [address] Dr. Jayy Marquez RSV Not detected Normal NOT DETECTED [facility] Comment on above: Performed By: #### C VDAGS #### [facility] [address] [place] [address] Dr. Jayy Marquez SARS-CoV-2 (COVID-19) RNA SILVINO+probe Ql (Unsp spec) Not detected Normal NOT DETECTED [facility] Comment on above: Performed By: #### C VDAGS #### [facility] [address] [place] [address] Dr. Jayy Marquez SYMPTOMATIC COVID-19 ANTIGEN on 09-22-2022 EUA Statement SEE BELOW Normal [facility] Comment on above: Result Comment: This test has not been FDA cleared or approved, but has been authorized by the FDA under an Emergency Use Authorization (EUA) for use by authorized laboratories certified under CLIA that meet the requirements to perform moderate or high complexity testing. This test has been authorized only for the detection of proteins from SARS-CoV-2, not for any other viruses or pathogens. The emergency use of this test is authorized for the duration of the declaration that circumstances exist justifying the authorization of emergency use of in vitro diagnostic tests for detection and/or diagnosis of Covid-19 under section 564(b)(1) of the Act, 21 U.S.C. 360bbb-3(b)(1), unless the declaration is terminated or authorization is revoked sooner. Performed By: #### C VDAGS #### [facility] [address] [place] [address] Dr. Jayy Marquez SARS-CoV-2 (COVID-19) RNA SILVINO+probe Ql (Unsp spec) Negative Normal NEGATIVE [facility] Comment on above: Performed By: #### C VDAGS #### [facility] [address] [place] [address] Dr. Jayy Marquez TROPONIN, HIGH SENSITIVITYon 09-22-2022 HSTROP 12.9 pg/mL Normal 4.0-51.3 [facility] Comment on above: Result Comment: CUT- OFF POINTS HAVE BEEN ESTABLISHED BASED ON THE FOURTH UNIVERSAL DEFINITIONS OF MYOCARDIAL INFARCTION. THE UPPER REFERENCE LIMIT (URL) OF TROPONIN, DEFINED THE 99TH PERCENTILE OF cTnI DISTRIBUTION IN A REFERENCE POPULATION, HAS BEEN CONFIRMED THE DECISION THRESHOLD FOR VA DIAGNOSIS. Performed By: #### B MP, BNP, HSTROPN #### [facility] [address] [address] [address] Jayy Marquez XR CHEST 1 Von 09-22-2022 XR CHEST 1 V EXAM: XR CHEST 1 V HISTORY: SHORTNESS OF BREATH COMPARISON: Chest CT 09/01/2022 TECHNIQUE: Portable chest FINDINGS: No focal parenchymal consolidation or infiltrate. No pneumothorax or pleural effusion. The left lower lobe nodule is poorly seen on this study. Persistent prominence of the right pulmonary artery. The heart is not enlarged. No acute osseous abnormality IMPRESSION: No visualized acute irregularity Electronically authenticated by: ARIANNA CEVALLOS Date: 2022-09-22 00:51 Normal [facility] CT CHEST WO CONon 09-01-2022 CT CHEST WO CON EXAMINATION: CT CHES T WO CON HISTORY: Lung field abnormal ; follow-up left upper lobe nodule COMPARISON: CT chest 03/04/2022, 03/12/2021 TECHNIQUE: Axial, Coronal, and Sagittal images were created without the administration of IV contrast material. Dose reduction techniques were achieved by using automated exposure control and/or adjustment of mA and/or kV according to patient size and/or use of iterative reconstruction technique. FINDINGS: LUNGS: Moderate bronchiectasis within lung bases bilaterally with mild airspace disease involving peripheral right lower lobe, likely representing atelectasis distal to the areas of mucous plugging. Stable 6 mm nodule within posterior lateral left lower lobe. Mild emphysematous changes. PLEURA: No mass, effusion, or pneumothorax. VASCULATURE: No abnormality. GREGORY: No mass or adenopathy. MEDIASTINUM: No mass or adenopathy. CARDIAC: No enlargement or pericardial thickening. AORTA: No aneurysm or dissection. CHEST WALL: No mass or axillary adenopathy. BONES: No bone lesion or fracture. LIMITED ABDOMEN: No suspicious findings. Limited images of the upper abdomen. OTHER: Negative. IMPRESSION: 1. Bibasilar bronchiectasis mild mucous plugging suspected to account for the mild peripheral airspace disease; slightly improved. 2. Stable left lower lobe nodule. No overtly suspicious findings. 3. Mild emphysematous changes. Electronically authenticated by: HANDY KEATING Date: 2022-09-01 15:28 Normal [facility] ACID FAST SMEAR AND CXon Acid Fast Culture Negative Normal [facility] Comment on above: Result Comment: No a goyo fast bacilli isolated after 6 weeks. Performed By: #### A FB #### [facility] [address] [place] [address] Dr. Jayy Marquez Performed By: #### C VDAGS #### [facility] [address] [place] [address] Dr. Jayy Marquez Acid Fast Smear Negative Normal [facility] Comment on above: Performed By: #### A FB #### [facility] [address] [place] [address] Dr. Jayy Marquez Performed By: #### C VDAGS #### [facility] [address] [place] [address] Dr. Jayy Marquez [employer] Specimen Processing Concentration Normal [facility] Comment on above: Performed By: #### A FB #### [facility] [address] [place] [address] Dr. Jayy Marquez Performed By: #### C VDAGS #### [facility] [address] [place] [address] Dr. Jayy Marquez FUNGAL CULTUREon 04-23-2022 Fungus (Mycology) Culture Final report [facility] Comment on above: Performed By: #### C XFUN #### [facility] [address] [place] [address] Dr. Jayy Marquez Performed By: #### C VDAGS #### [facility] [address] [place] [address] Dr. Jayy Marquez Fungus Stain Final report Normal [facility] Comment on above: Performed By: #### C XFUN #### [facility] [address] [place] [address] Dr. Jayy Marquez Performed By: #### C VDAGS #### [facility] [address] [place] [address] Dr. Jayy Marquez Result 1 Comment Normal [facility] Comment on above: Result Comment: TANYA/ Calcofluor preparation: no fungus observed. Performed By: #### C XFUN #### [facility] [address] [place] [address] Dr. Jayy Marquez Result Comment: No y east or mold isolated after 4 weeks. Performed By: #### C VDAGS #### [facility] [address] [place] [address] Dr. Jayy Marquez CULTURE OTHERon 03-26-2022 CULTURE OTHER Isolate 1 Pseudomonas aeruginosa Light growth of Isolate 2 Moraxella (Branhamella) catarrhalis Moderate growth of Isolate 3 Streptococcus agalactiae Light growth of ORGANISM 1 Pseudomonas aeruginosa ANTIBIOTIC M.I.C RX STATUS Piperacillin/Tazobacta m <=4 S F Ceftazidime <=1 S F Imipenem <=0.25 S F Amikacin 4 S F Gentamicin 2 S F Tobramycin <=1 S F Ciprofloxacin <=0.25 S F Levofloxacin 0.25 S F ORGANISM 3 Streptococcus agalactiae ANTIBIOTIC M.I.C RX STATUS Benzylpenicillin <=0.06 S F Ampicillin <=0.25 S F Cefotaxime <=0.12 S F Ceftriaxone <=0.12 S F Levofloxacin 0.5 S F Inducible Clindamycin Resistance Neg NEG F Erythromycin >=8 R F Clindamycin >=1 R F Linezolid <=2 S F Vancomycin 0.5 S F Tetracycline >=16 R F [facility] Comment on above: Performed By: #### C YTO #### [facility] [address] [place] [address] Dr. Jayy Marquez CULTURE OTHERon 03-25-2022 CULTURE OTHER Isolate 1 Pseudomonas aeruginosa Moderate growth of Isolate 2 Moraxella (Branhamella) catarrhalis Moderate growth of ORGANISM 1 Pseudomonas aeruginosa ANTIBIOTIC M.I.C RX STATUS Piperacillin/Tazobacta m <=4 S F Ceftazidime <=1 S F Imipenem <=0.25 S F Amikacin 8 S F Gentamicin 4 S F Tobramycin <=1 S F Ciprofloxacin <=0.25 S F Levofloxacin 0.25 S F Normal [facility] Comment on above: Performed By: #### C YTO #### [facility] [address] [address] [address] Jayy Marquez CYTOLOGYon 03-23-2022 SENT TO REF LAB 03/23/2022 Normal [facility] Comment on above: Performed By: #### C YTO #### [facility] [address] [address] [address] Jayy AMADOR STAINon 03-23-2022 DIPHTHEROIDS Normal [facility] Comment on above: Performed By: #### C VDAGS #### [facility] [address] [address] [address] Jayy Marquez EPITHELIALS [facility] Comment on above: Performed By: #### C VDAGS #### [facility] [address] [address] [address] Jayy Marquez FUNGAL ELEMENTS Normal [facility] Comment on above: Performed By: #### C VDAGS #### [facility] [address] [address] [address] Jayy AMDAOR NEG BACILLI FEW [facility] Comment on above: Performed By: #### C VDAGS #### [facility] [address] [address] [address] Jayy AMADOR NEG DIPPLOCOCCI Normal [facility] Comment on above: Performed By: #### C VDAGS #### [facility] [address] [address] [address] Jayy AMADOR POS BACILLI [facility] Comment on above: Performed By: #### C VDAGS #### [facility] [address] [address] [address] Jayy Marquez GRAM POSITIVE COCCI FEW Normal [facility] Comment on above: Performed By: #### C VDAGS #### [facility] [address] [address] [address] Jayy Marquez GRAM STAIN SOURCE Rt Middle Lobe Lavage Normal [facility] Comment on above: Performed By: #### C VDAGS #### [facility] [address] [address] [address] Jayy Marquez GRAM STAIN SOURCE Lingula Lt Upper Lob e Lavage Normal [facility] Comment on above: Performed By: #### C VDAGS #### [facility] [address] [place] [address] Dr. Jayy Marquez GS_DIPTH Normal [facility] Comment on above: Performed By: #### C VDAGS #### [facility] [address] [place] [address] Dr. Jayy Marquez WBC MANY Normal [facility] Comment on above: Performed By: #### C VDAGS #### [facility] [address] [place] [address] Dr. Jayy Marquez WBC MODERATE Normal [facility] Comment on above: Performed By: #### C VDAGS #### [facility] [address] [place] [address] Dr. Jayy Marquez Covid-19 PCR ([facility])on 02-25 SARS-CoV-2 (COVID-19) RNA SILVINO+probe Ql (Unsp spec) Not detected Normal NOT DETECTED [facility] Comment on above: Result Comment: This test is not yet approved or cleared by the [place] FDA. When there are no FDA-approved or cleared tests available, and other criteria are met, FDA can make tests available under an emergency access mechanism called an Emergency Use Authorization (EUA). The EUA for this test is supported by the [employer] of Health and Human Service's (HHS's) declaration that circumstances exist to justify the emergency use of in vitro diagnostics for the detection and/or diagnosis of the virus that causes COVID-19. This EUA will remain in effect (meaning this test can be used) for the duration of the COVID-19 declaration justifying emergency of IVDs, unless it is terminated or revoked by FDA (after which the test may no longer be used). When diagnostic testing is negative, the possibility of a false negative should be considered in the context of a patient's recent exposures and the presence of clinical signs and symptoms consistent with SARS-CoV-2. Performed By: #### C YTO #### [facility] [address] [place] [address] LUNG CANCER SCREENINGon 1 05-04-2021 CT LUNG CANCER SCREENING EXAMINATION: CT LUNG CANCER SCREENING HISTORY: Nicotine dependence COMPARISON: CT chest 03/12/2021 TECHNIQUE: Axial, Coronal, and Sagittal images were created without the administration of IV contrast material. Dose reduction techniques were achieved by using automated exposure control and/or adjustment of mA and/or kV according to patient size and/or use of iterative reconstruction technique. FINDINGS: LUNGS: Stable 6 mm nodule within the posterior lateral left lung base. Trace amount of infiltrates versus atelectasis adjacent left hilum. New 5 mm nodule versus infiltrate within posterior segment left upper lobe adjacent major fissure. Bronchiectasis within lower lobes, middle lobe, and lingula with areas of mucous plugging, and small patchy opacities within peripheral lung regions likely representing atelectasis or infiltrates. PLEURA: No mass, effusion, or pneumothorax. VASCULATURE: No abnormality. GREGORY: No mass or pathologic adenopathy. MEDIASTINUM: No mass or pathologic adenopathy. CARDIAC: No enlargement, pericardial thickening, or significant calcification. AORTA: No aneurysm or dissection. CHEST WALL: No mass or axillary adenopathy BONES: No bone lesion or fracture. LIMITED ABDOMEN: No suspicious findings. Limited images of the upper abdomen. OTHER: Negative. IMPRESSION: 1. Lung-RADS Category 3- Probably benign. Probably benign finding(s)- short term follow up suggested; includes nodules with a low likelihood of becoming a clinically active cancer. Six month LDCT. 2. New small nodule within left upper lobe posterior segment. Multiple small opacities within posterior peripheral lung regions which I suspect represent acute atelectasis or infiltrates secondary to patient's bronchiectasis and mucous plugging. Follow-up imaging in 6 months is recommended to document change. Electronically authenticated by: HNADY KEATING Date: 2022-03-04 16:14 Normal [facility] CBC AUTO DIFFon 10-30-2021 BASO # 0.0 103/ul Normal 0.0-0.1 [facility] Comment on above: Performed By: #### C VDAGS #### [facility] [address] [address] [address] Jayy Marquez Basophils/100 WBC (Bld) 0.7 % Normal 0.2-2.0 [facility] Comment on above: Performed By: #### C VDAGS #### [facility] [address] [place] [address] Dr. Jayy Marquez EO # 0.2 103/ul Normal 0.0-0.7 [facility] Comment on above: Performed By: #### C VDAGS #### [facility] [address] [place] [address] Dr. Jayy Marquez Eosinophils/100 WBC (Bld) 2.6 % Normal 0.9-7.0 [facility] Comment on above: Performed By: #### C VDAGS #### [facility] [address] [place] [address] Dr. Jayy Marquez Erythrocyte distribution width (RBC) [Ratio] 14.7 % Normal 11.0-15.0 [facility] Comment on above: Performed By: #### C VDAGS #### [facility] [address] [place] [address] Dr. Jayy Marquez Hematocrit (Bld) [Volume fraction] 48.9 % Critically high 36.0-48.0 [facility] Comment on above: Performed By: #### C VDAGS #### [facility] [address] [place] [address] Dr. Jayy Marquez Hemoglobin (Bld) [Mass/Vol] 15.5 g/dL Normal 12.0-16.0 [facility] Comment on above: Performed By: #### C VDAGS #### [facility] [address] [place] [address] Dr. Jayy Marquez IG # 0.01 10e3/ul Normal 0.00-0.03 [facility] Comment on above: Performed By: #### C VDAGS #### [facility] [address] [place] [address] Dr. Jayy Marquez IG % 0.2 % Normal 0.0-0.5 [facility] Comment on above: Performed By: #### C VDAGS #### [facility] [address] [place] [address] Dr. Jayy Marquez LYMPH # 1.6 103/ul Normal 1.2-3.8 [facility] Comment on above: Performed By: #### C VDAGS #### [facility] [address] [place] [address] Dr. Jayy Marquez Lymphocytes/100 WBC (Bld) 26.0 % Normal 20.5-60.0 [facility] Comment on above: Performed By: #### C VDAGS #### [facility] [address] [place] [address] Dr. Jayy Marquez MANUAL DIFF REQ NO Normal [facility] Comment on above: Performed By: #### C VDAGS #### [facility] [address] [place] [address] Dr. Jayy Marquez MCH (RBC) [Entitic mass] 31.5 pg Normal 26.7-34.0 [facility] Comment on above: Performed By: #### C VDAGS #### [facility] [address] [place] [address] Dr. Jayy Marquez MCHC (RBC) [Mass/Vol] 31.7 g/dL Normal 29.9-35.2 [facility] Comment on above: Performed By: #### C VDAGS #### [facility] [address] [place] [address] Dr. Jayy Marquez MCV (RBC) [Entitic vol] 99.4 fL Critically high 81.0-99.0 [facility] Comment on above: Performed By: #### C VDAGS #### [facility] [address] [place] [address] Dr. Jayy Marquez MONO # 0.8 103/ul Normal 0.3-0.8 [facility] Comment on above: Performed By: #### C VDAGS #### [facility] [address] [place] [address] Dr. Jayy Marquez Monocytes/100 WBC (Bld) 12.4 % Critically high 1.7-12.0 [facility] Comment on above: Performed By: #### C VDAGS #### [facility] [address] [place] [address] Dr. Jayy Marquez NEUT # 3.6 103/ul Normal 1.4-6.5 [facility] Comment on above: Performed By: #### C VDAGS #### [facility] [address] [place] [address] Dr. Jayy Marquez Neutrophils/100 WBC (Bld) 58.1 % Normal 43.0-75.0 [facility] Comment on above: Performed By: #### C VDAGS #### [facility] [address] [place] [address] Dr. Jayy Marquez Platelet mean volume (Bld) [Entitic vol] 10.1 fL Normal 9.5-13.5 [facility] Comment on above: Performed By: #### C VDAGS #### [facility] [address] [place] [address] Dr. Jayy Marquez PLT 234 103/ul Normal 150-450 [facility] Comment on above: Performed By: #### C VDAGS #### [facility] [address] [place] [address] Dr. Jayy Marquez RBC 4.92 106/ul Normal 4.20-5.40 [facility] Comment on above: Performed By: #### C VDAGS #### [facility] [address] [place] [address] Dr. Jayy Marquez WBC 6.2 103/ul Normal 4.0-11.0 [facility] Comment on above: Performed By: #### C VDAGS #### [facility] [address] [place] [address] Dr. Jayy Marquez FREE T3on 10-30-2021 FREE T3 2.73 pg/mlL Normal 2.18-3.98 [facility] Comment on above: Performed By: #### C VDAGS #### [facility] [address] [place] [address] Dr. Jayy Marquez FREE T4on 10-30-2021 Free T4 [Mass/Vol] 1.25 ng/dL Normal 0.76-1.46 [facility] Comment on above: Performed By: #### F T4 #### [facility] [address] [place] [address] Dr. Jayy Marquez PROF CHEM 8 (BAS METB)on Anion gap [Moles/Vol] 8.8 mmol/L Normal [facility] Comment on above: Performed By: #### C VDAGS #### [facility] [address] [address] [address] Jayy Marquez Calcium [Mass/Vol] 9.4 mg/dL Normal 8.5-10.1 [facility] Comment on above: Performed By: #### C VDAGS #### [facility] [address] [address] [address] Jayy Marquez Chloride [Moles/Vol] 104 mmol/L Normal 98-107 [facility] Comment on above: Performed By: #### C VDAGS #### [facility] [address] [place] [address] Dr. Jayy Marquez CO2 [Moles/Vol] 29.4 mmol/L Normal 21.0-32.0 [facility] Comment on above: Performed By: #### C VDAGS #### [facility] [address] [place] [address] Dr. Jayy Marquez Creatinine [Mass/Vol] 0.74 mg/dL Normal 0.55-1.02 [facility] Comment on above: Performed By: #### C VDAGS #### [facility] [address] [place] [address] Dr. Jayy Marquez EGFR-AF OMANI >60 Normal >=60 [facility] Comment on above: Performed By: #### C VDAGS #### [facility] [address] [place] [address] Dr. Jayy Marquez EGFR-NON AF OMANI >60 Normal >=60 [facility] Comment on above: Performed By: #### C VDAGS #### [facility] [address] [place] [address] Dr. Jayy Marquez Glucose [Mass/Vol] 108 mg/dL Critically high 74-106 [facility] Comment on above: Performed By: #### C VDAGS #### [facility] [address] [place] [address] Dr. Jayy Marquez Potassium [Moles/Vol] 4.2 mmol/L Normal 3.5-5.1 [facility] Comment on above: Performed By: #### C VDAGS #### [facility] [address] [place] [address] Dr. Jayy Marquez Sodium [Moles/Vol] 138 mmol/L Normal 136-145 [facility] Comment on above: Performed By: #### C VDAGS #### [facility] [address] [place] [address] Dr. Jayy Marquez Urea nitrogen [Mass/Vol] 16.0 mg/dL Normal 7.0-18.0 [facility] Comment on above: Performed By: #### C VDAGS #### [facility] [address] [place] [address] Dr. Jayy Marquez Urea nitrogen/Creatinine [Mass ratio] 21.6 mg/mg Normal [facility] Comment on above: Performed By: #### C VDAGS #### [facility] [address] [place] [address] Dr. Jayy Marquez SGOTon 10-30-2021 AST [Catalytic activity/Vol] 11 U/L Critically low 15-37 [facility] Comment on above: Performed By: #### B MP #### [facility] [address] [place] [address] Dr. Jayy Marquez SGPTon 10-30-2021 ALT [Catalytic activity/Vol] 22 U/L Normal 14-59 [facility] Comment on above: Performed By: #### C VDAGS #### [facility] [address] [place] [address] Dr. Jayy Marquez TSHon 10-30-2021 TSH 1.593 uIU/mL Normal 0.358-3.740 [facility] Comment on above: Performed By: #### B MP #### [facility] [address] [place] [address] LUNG SCREENING (ANNUAL)on 09-26-2019 Patient Name: ERICA CHACON ---CT--- Exam Date/Time 09/26/2019 10:55:[address] Low Dose Lung Scrn Ordering Physician RAVINDRA THURMAN, CHYNA PERLA Accession Number [id number] CPT4 Codes G0297 (CT Low Dose Lung Scrn) Reason For Exam current smoker Report CLINICAL HISTORY: History of tobacco use. This is a screening study for pulmonary nodules. COMPARISON: 09/08/2018 Technique: 1 mm low dose helical CT images were obtained of the chest without the use of intravenous contrast. Images were reformatted in coronal and sagittal projections. FINDINGS: Pulmonary nodules: *All nodule measurements are mean axial diameter and saved on pizano images* 6 mm mean axial diameter nodule posterior lateral left lower lobe (3:243) is UNCHANGED. 3 mm mean axial diameter nodule anterior lateral right upper lobe (3:81) is NEW. Lungs: Ill defined nodular opacities within the right lung base remain unchanged. There is unchanged bronchiectasis bilaterally. No new areas of consolidation or effusion are present. The tracheobronchial tree remains patent. Mediastinum: Normal heart size with no pericardial effusion. Aorta and pulmonary arteries normal in caliber. No enlarged mediastinal, hilar, or axillary lymph nodes. Thyroid and Esophagus: Normal. Upper Abdomen: Normal Soft tissues and Osseous structures: There are bilateral breast implants. No suspicious osseous lesions. IMPRESSION: 6 mm in mean axial diameter nodule left lower lobe is UNCHANGED. NEW 3 mm nodule within the right upper lobe. Unchanged bilateral bronchiectasis. ASSESSMENT CATEGORY: Lung-RADS Assessment Category 2 - Benign appearance or behavior. Recommend continued annual low-dose screening CT in 12 months. Lung-RADS Version 1.1 Assessment Categories - for Screening CT Chest Only. Release date: September 15, 2018 Category 1 - Negative - Continue annual screening with low-dose CT No nodules Nodules with benign characteristics (complete, central, popcorn Ca++) or fat Category 2 - Benign appearance or behavior - Continue annual screening with low-dose CT Perifissural nodule(s) < 10 mm (see note 11 below) Solid nodule(s): < 6 mm or new < 4 mm Part solid nodule(s): < 6 mm total diameter on baseline screening Nonsolid nodule(s) (GGN): < 30 mm OR >/= 30 mm and unchanged or slowly growing Category 3 or 4 nodules unchanged for >/= 3 months Category 3 - Probably benign finding(s) - 6 month follow up with low-dose CT Solid nodule(s): 6 to < 8 mm at baseline OR new 4 mm to < 6 mm Part solid nodule(s) >/= 6 mm total diameter with solid component < 6 mm OR new < 6 mm total diameter Nonsolid nodule(s) (GGN) >/= [address] or new Category 4A - Suspicious - 3 month low-dose CT follow up or PET/CT when >/= 8 mm solid component Solid nodule(s): 8 to < 15 mm at baseline OR growing < 8 mm OR new 6 to <8 mm Part solid nodule(s): >/= 6 mm with solid component >/= 6 mm to < 8 mm OR with a new or growing < 4 mm solid component Any endobronchial nodule Category 4B - Very Suspicious - chest CT with or without contrast, PET/CT and/or tissue sampling depending on the *probability of malignancy and comorbidities. PET/CT may be used when there is a >/= 8 mm solid component. For new large nodules that develop on an annual repeat screening CT, a [address] may be recommended to address potentially inflammatory or infections conditions. Solid nodule(s): >/= 15 mm OR new or growing, and >/= 8 mm Part solid nodule(s) with: a solid component >/= 8 mm OR a new or growing >/= 4 mm solid component Category 4X - Very Suspicious - (same work up as Category 4B) Category 3 or 4 nodules with additional features or imaging findings that increases the suspicion of malignancy - spiculation, rapid growth or associated lymph node enlargement Modifier to add to Category 0-4: Category S - Clinically or potentially significant non lung cancer related findings IMPORTANT NOTES FOR USE: 1. Negative screen: does not mean that an individual does not have lung cancer. 2. Size: to calculate nodule mean diameter, measure both the long and short axis to one decimal point and report mean nodule diameter to one decimal point. 3. Size Thresholds: apply to nodules at first detection, and that grow and reach a higher size category 4. Growth: an increase in size of > 1.5 mm 5. Exam category: each exam should be coded 0-4 based on the nodule(s) with the highest degree of suspicion 6. Exam Modifiers: S modifier may be added to the 0-4 category 7. Lung cancer diagnosis: Once a patient is diagnosed with lung cancer, further management (including additional imaging such as PET/CT) may be performed for purposes of lung cancer staging; this is no longer screening 8. Practice audit definitions: a negative screen is defined as categories 1 and 2; a positive screen is defined as categories 3 and 4 9. Category 4B Management: this is predicated on the probability of malignancy based on patient evaluation, patient preference and risk of malignancy; radiologists are encouraged to use the Diana et al assessment tool when making recommendations 10. Category 4X: nodules with additional imaging findings that increase the suspicion of lung cancer, such as spiculation, GGN that doubles in size in 1 year, enlarged lymph nodes etc 11. Solid nodules with smooth margins, an oval, lentiform or triangular shape, and maximum diameter of 10 mm (perifissural nodules) should be classified as category 2 12. Category 3 and 4A nodules that are unchanged on interval CT should be coded as category 2, and individuals returned to screening in 12 months Report Dictated on --- Final --- Dictated: 09/26/2019 1:18 pm Dictating Physician: MD CARLIN YUN ROBERT Signed Date and Time: 09/26/2019 1:27 pm Signed by: MD CARLIN YUN ROBERT Transcribed Date and Time: 09/26/2019 1:18 [place], [place] Octavio, [facility] Incoming Radiology Results From [facility] - 09/26/2019 1:28 PM EDT Patient Name: ERICA CHACON ---CT--- Exam Date/Time 09/26/2019 10:55:[address] Low Dose Lung Scrn Ordering Physician RAVINDRA THURMAN TAMMY KAY Accession Number [id number] CPT4 Codes G0297 (CT Low Dose Lung Scrn) Reason For Exam current smoker Report CLINICAL HISTORY: History of tobacco use. This is a screening study for pulmonary nodules. COMPARISON: 09/08/2018 Technique: 1 mm low dose helical CT images were obtained of the chest without the use of intravenous contrast. Images were reformatted in coronal and sagittal projections. FINDINGS: Pulmonary nodules: *All nodule measurements are mean axial diameter and saved on pizano images* 6 mm mean axial diameter nodule posterior lateral left lower lobe (3:243) is UNCHANGED. 3 mm mean axial diameter nodule anterior lateral right upper lobe (3:81) is NEW. Lungs: Ill defined nodular opacities within the right lung base remain unchanged. There is unchanged bronchiectasis bilaterally. No new areas of consolidation or effusion are present. The tracheobronchial tree remains patent. Mediastinum: Normal heart size with no pericardial effusion. Aorta and pulmonary arteries normal in caliber. No enlarged mediastinal, hilar, or axillary lymph nodes. Thyroid and Esophagus: Normal. Upper Abdomen: Normal Soft tissues and Osseous structures: There are bilateral breast implants. No suspicious osseous lesions. IMPRESSION: 6 mm in mean axial diameter nodule left lower lobe is UNCHANGED. NEW 3 mm nodule within the right upper lobe. Unchanged bilateral bronchiectasis. ASSESSMENT CATEGORY: Lung-RADS Assessment Category 2 - Benign appearance or behavior. Recommend continued annual low-dose screening CT in 12 months. Lung-RADS Version 1.1 Assessment Categories - for Screening CT Chest Only. Release date: September 15, 2018 Category 1 - Negative - Continue annual screening with low-dose CT No nodules Nodules with benign characteristics (complete, central, popcorn Ca++) or fat Category 2 - Benign appearance or behavior - Continue annual screening with low-dose CT Perifissural nodule(s) < 10 mm (see note 11 below) Solid nodule(s): < 6 mm or new < 4 mm Part solid nodule(s): < 6 mm total diameter on baseline screening Nonsolid nodule(s) (GGN): < 30 mm OR >/= 30 mm and unchanged or slowly growing Category 3 or 4 nodules unchanged for >/= 3 months Category 3 - Probably benign finding(s) - 6 month follow up with low-dose CT Solid nodule(s): 6 to < 8 mm at baseline OR new 4 mm to < 6 mm Part solid nodule(s) >/= 6 mm total diameter with solid component < 6 mm OR new < 6 mm total diameter Nonsolid nodule(s) (GGN) >/= [address] or new Category 4A - Suspicious - 3 month low-dose CT follow up or PET/CT when >/= 8 mm solid component Solid nodule(s): 8 to < 15 mm at baseline OR growing < 8 mm OR new 6 to <8 mm Part solid nodule(s): >/= 6 mm with solid component >/= 6 mm to < 8 mm OR with a new or growing < 4 mm solid component Any endobronchial nodule Category 4B - Very Suspicious - chest CT with or without contrast, PET/CT and/or tissue sampling depending on the *probability of malignancy and comorbidities. PET/CT may be used when there is a >/= 8 mm solid component. For new large nodules that develop on an annual repeat screening CT, a [address] may be recommended to address potentially inflammatory or infections conditions. Solid nodule(s): >/= 15 mm OR new or growing, and >/= 8 mm Part solid nodule(s) with: a solid component >/= 8 mm OR a new or growing >/= 4 mm solid component Category 4X - Very Suspicious - (same work up as Category 4B) Category 3 or 4 nodules with additional features or imaging findings that increases the suspicion of malignancy - spiculation, rapid growth or associated lymph node enlargement Modifier to add to Category 0-4: Category S - Clinically or potentially significant non lung cancer related findings IMPORTANT NOTES FOR USE: 1. Negative screen: does not mean that an individual does not have lung cancer. 2. Size: to calculate nodule mean diameter, measure both the long and short axis to one decimal point and report mean nodule diameter to one decimal point. 3. Size Thresholds: apply to nodules at first detection, and that grow and reach a higher size category 4. Growth: an increase in size of > 1.5 mm 5. Exam category: each exam should be coded 0-4 based on the nodule(s) with the highest degree of suspicion 6. Exam Modifiers: S modifier may be added to the 0-4 category 7. Lung cancer diagnosis: Once a patient is diagnosed with lung cancer, further management (including additional imaging such as PET/CT) may be performed for purposes of lung cancer staging; this is no longer screening 8. Practice audit definitions: a negative screen is defined as categories 1 and 2; a positive screen is defined as categories 3 and 4 9. Category 4B Management: this is predicated on the probability of malignancy based on patient evaluation, patient preference and risk of malignancy; radiologists are encouraged to use the Diana et al assessment tool when making recommendations 10. Category 4X: nodules with additional imaging findings that increase the suspicion of lung cancer, such as spiculation, GGN that doubles in size in 1 year, enlarged lymph nodes etc 11. Solid nodules with smooth margins, an oval, lentiform or triangular shape, and maximum diameter of 10 mm (perifissural nodules) should be classified as category 2 12. Category 3 and 4A nodules that are unchanged on interval CT should be coded as category 2, and individuals returned to screening in 12 months Report Dictated on --- Final --- Dictated: 09/26/2019 1:18 pm Dictating Physician: MD CARLIN YUN ROBERT Signed Date and Time: 09/26/2019 1:27 pm Signed by: MD CARLIN YUN ROBERT Transcribed Date and Time: 09/26/2019 1:18 [place], [place] CT Low Dose Lung Screeningon 09-26-2019 CT Low Dose Lung Screening Patient Name: ERICA CHACON CT Exam Date/Time 09/26/2019 10:55:[address] Low Dose Lung Scrn Ordering Physician RAVINDRA THURMAN TAMMY KAY Accession Number [id number] CPT4 Codes G0297 (CT Low Dose Lung Scrn) Reason For Exam current smoker Report CLINICAL HISTORY: History of tobacco use. This is a screening study for pulmonary nodules. COMPARISON: 09/08/2018 Technique: 1 mm low dose helical CT images were obtained of the chest without the use of intravenous contrast. Images were reformatted in coronal and sagittal projections. FINDINGS: Pulmonary nodules: *All nodule measurements are mean axial diameter and saved on pizano images* 6 mm mean axial diameter nodule posterior lateral left lower lobe (3:243) is UNCHANGED. 3 mm mean axial diameter nodule anterior lateral right upper lobe (3:81) is NEW. Lungs: Ill defined nodular opacities within the right lung base remain unchanged. There is unchanged bronchiectasis bilaterally. No new areas of consolidation or effusion are present. The tracheobronchial tree remains patent. Mediastinum: Normal heart size with no pericardial effusion. Aorta and pulmonary arteries normal in caliber. No enlarged mediastinal, hilar, or axillary lymph nodes. Thyroid and Esophagus: Normal. Upper Abdomen: Normal Soft tissues and Osseous structures: There are bilateral breast implants. No suspicious osseous lesions. IMPRESSION: 6 mm in mean axial diameter nodule left lower lobe is UNCHANGED. NEW 3 mm nodule within the right upper lobe. Unchanged bilateral bronchiectasis. ASSESSMENT CATEGORY: Lung-RADS Assessment Category 2 - Benign appearance or behavior. Recommend continued annual low-dose screening CT in 12 months. Lung-RADS Version 1.1 Assessment Categories - for Screening CT Chest Only. Release date: September 15, 2018 Category 1 - Negative - Continue annual screening with low-dose CT No nodules Nodules with benign characteristics (complete, central, popcorn Ca++) or fat Category 2 - Benign appearance or behavior - Continue annual screening with low-dose CT Perifissural nodule(s) < 10 mm (see note 11 below) Solid nodule(s): < 6 mm or new < 4 mm Part solid nodule(s): < 6 mm total diameter on baseline screening Nonsolid nodule(s) (GGN): < 30 mm OR >/= 30 mm and unchanged or slowly growing Category 3 or 4 nodules unchanged for >/= 3 months Category 3 - Probably benign finding(s) - 6 month follow up with low-dose CT Solid nodule(s): 6 to < 8 mm at baseline OR new 4 mm to < 6 mm Part solid nodule(s) >/= 6 mm total diameter with solid component < 6 mm OR new < 6 mm total diameter Nonsolid nodule(s) (GGN) >/= [address] or new Category 4A - Suspicious - 3 month low-dose CT follow up or PET/CT when >/= 8 mm solid component Solid nodule(s): 8 to < 15 mm at baseline OR growing < 8 mm OR new 6 to <8 mm Part solid nodule(s): >/= 6 mm with solid component >/= 6 mm to < 8 mm OR with a new or growing < 4 mm solid component Any endobronchial nodule Category 4B - Very Suspicious - chest CT with or without contrast, PET/CT and/or tissue sampling depending on the *probability of malignancy and comorbidities. PET/CT may be used when there is a >/= 8 mm solid component. For new large nodules that develop on an annual repeat screening CT, a [address] may be recommended to address potentially inflammatory or infections conditions. Solid nodule(s): >/= 15 mm OR new or growing, and >/= 8 mm Part solid nodule(s) with: a solid component >/= 8 mm OR a new or growing >/= 4 mm solid component Category 4X - Very Suspicious - (same work up as Category 4B) Category 3 or 4 nodules with additional features or imaging findings that increases the suspicion of malignancy - spiculation, rapid growth or associated lymph node enlargement Modifier to add to Category 0-4: Category S - Clinically or potentially significant non lung cancer related findings IMPORTANT NOTES FOR USE: 1. Negative screen: does not mean that an individual does not have lung cancer. 2. Size: to calculate nodule mean diameter, measure both the long and short axis to one decimal point and report mean nodule diameter to one decimal point. 3. Size Thresholds: apply to nodules at first detection, and that grow and reach a higher size category 4. Growth: an increase in size of > 1.5 mm 5. Exam category: each exam should be coded 0-4 based on the nodule(s) with the highest degree of suspicion 6. Exam Modifiers: S modifier may be added to the 0-4 category 7. Lung cancer diagnosis: Once a patient is diagnosed with lung cancer, further management (including additional imaging such as PET/CT) may be performed for purposes of lung cancer staging; this is no longer screening 8. Practice audit definitions: a negative screen is defined as categories 1 and 2; a positive screen is defined as categories 3 and 4 9. Category 4B Management: this is predicated on the probability of malignancy based on patient evaluation, patient preference and risk of malignancy; radiologists are encouraged to use the Diana et al assessment tool when making recommendations 10. Category 4X: nodules with additional imaging findings that increase the suspicion of lung cancer, such as spiculation, GGN that doubles in size in 1 year, enlarged lymph nodes etc 11. Solid nodules with smooth margins, an oval, lentiform or triangular shape, and maximum diameter of 10 mm (perifissural nodules) should be classified as category 2 12. Category 3 and 4A nodules that are unchanged on interval CT should be coded as category 2, and individuals returned to screening in 12 months Report Dictated on Final Dictated: 09/26/2019 1:18 pm Dictating Physician: MD CARLIN YUN ROBERT Signed Date and Time: 09/26/2019 1:27 pm Signed by: MD CARLIN YUN ROBERT Transcribed Date and Time: 09/26/2019 1:18 [facility] OBSOLETEon 07-21-2017 OBSOLETE Refill (ENDMED) ERICA CHACON ([id number]) 1955 [facility] Time Provider Department11/13/16 CHARLOTTE RATLIFF During your visit today, we recorded the following information about you:Arabella Frey MA 11/13/2016 8:17 AM SignedPatient has not been seen in over a year.Allergies As of Date: 11/13/2016(No Known Allergies)Date Reviewed: 07/03/2015Reviewed by: Jenny Arias Ma - Fully AssessedReason for Visit: Refill Request [94]Order(s):levothyro xine (SYNTHROID) 112 mcg tabletTAKE 1 TABLET DAILYDisp: 90 tabletRfl: 3Prescriptions as of 11/13/2016 Sig: LEVOTHYROXINE 112 MCG TABLET TAKE 1 TABLET DAILY LOSARTAN 50 MG TABLET Take 50 mg by mouth once ekaterina* * MULTIVITAMIN TABLET Take 1 tablet by mouth once d* * CALCIUM 500 MG TABLET Take one(1) tablet once daily*Problem List As Of Date 11/13/2016 Noted Resolved Hypothyroidism [E03.9] INVALID FOR* Menopause [Z78.0] INVALID FOR* Tobacco abuse [Z72.0] INVALID FOR* Osteopenia [M85.80] INVALID FOR* More...Prescriptions ordered this encounter Disp Refills Start End LEVOTHYROXINE 112 MCG TABLET 90 t* 3 11/13/2016 Sig: TAKE 1 TABLET DAILYMedications Discontinued During This Encounter levothyroxine (SYNTHROID) 112 mcg ta* 90 t* 2 02/17/2016 11/13/2016 Sig: TAKE 1 TABLET DAILY Disc: Reason for discontinue is not on file. Status:Closed by JENNY ARIAS MA on 11/16/16 Normal [facility] Colonoscopy w/ or w/o biopsy on 01-12-2013 Colon polyps Internal hemorrhoids Normal appearing terminal ileum and colonic mucosa, s/p random biopsies [facility] This order was creat ed through External Result Entry [facility] Vital Signs Date Time Vital Sign Value Performing Clinician Manpreet strickland 04-21-2023 14:10-0500 Blood Pressure Location Kale NILL [facility] 04-21-2023 14:10-0500 Diastolic blood pressure 78 mm[Hg] Kale NILL [facility] 04-21-2023 14:10-0500 Heart rate 72 /min Kale NILL [facility] 04-21-2023 14:10-0500 Respiratory rate 16 /min Kale NILL [facility] 04-21-2023 14:10-0500 Systolic blood pressure 128 mm[Hg] Kale NILL [facility] Encounters Encounter Date Encounter Type Care Provider Facility Start: 04-21-2023 End: 04-22-2023 ambulatory Kale [facility]INELLI [facility] Start: 04-21-2023 End: 04-21-2023 Patient encounter procedure Kale Carlos NILL [facility] Start: 04-02-2023 ambulatory Kale MARINELLI Facility:[facility] Start: 04-01-2023 End: 04-01-2023 ambulatory NICO HOPKINS Not Available Start: 09-22-2022 Evaluation and manag ement of inpatient DR DAYAMI FULLER . Facility:[facility] Start: 09-01-2022 End: 09-02-[address] HANDY KEATING Facility:[facility] Start: 03-23-2022 End: 03-23-2022 ambulatory ALIS HEAD . Facility:[facility] Start: 03-23-2022 Encounter for preprocedural cardiovascular examination ALIS HEAD . [facility] Start: 03-23-2022 Encounter for preprocedural laboratory examination ALIS HEAD . [facility] Start: 03-17-2022 End: 03-18-2022 ambulatory ALIS HEAD . Facility:[facility] Start: 03-17-2022 End: 03-18-2022 Encounter for preprocedural laboratory examination ALIS HEAD . Facility:[facility] Start: 03-04-2022 End: 03-05-[address] HANDY KEATING Facility:[facility] Start: 10-30-2021 End: 10-31-[address] NICO HOPKINS Facility:[facility] Start: 09-26-2019 End: 09-26-2019 Subsequent hospital visit by physician Chyna Thurman Work Phone: [facility] Comment on above: Cigarette nicotine d ependence with nicotine-induced disorder Start: 09-08-2018 Patient encounter procedure Ezra Nichols [facility] Start: 04-04-2018 Patient encounter procedure Eddi Diaz [facility] Start: 03-08-2018 [facility] Start: 03-07-2018 Patient encounter procedure MONICA [facility] Start: 02-22-2018 Patient encounter procedure Ottoniel Fuchs [facility] Start: 09-14-2017 [facility] Start: 08-14-2017 Emergency department patient visit MARTIN DOZIER [facility] Start: 08-13-2017 Patient encounter procedure Ottoniel Fuchs [facility] Start: 01-12-2013 Conversion Encounter Ottoniel jackson MD Work Phone: [facility] Start: 01-12-2013 Legacy Encounter Ottoniel osborn MD Work Phone: [facility] Procedures Date Procedure Procedure Detail Performing Clinician Start: 09-26-2019 Ldct for lung ca screen Chyna Thurman Work Phone: Start: 01-12-2013 COLONOSCOPY W/ OR W/ O BIOPSY Ottoniel Fuchs MD Work Phone: Bronchoscopy Kale MARINELLI section Kale Reynoso Colonoscopy Kale MARINELLI Extraction of cataract Ramon twila MARINELLI Laparoscopy Kale ISIS Ligation of fallopian tube Cammy JOSÉAngeles Thyroidectomy Kale ISIS Plan of Treatment Date Care Activity Detail Author Start: 12-24-2025 DTaP/Tdap/Td vaccine (2 - Td) DTaP/Tdap/Td vaccine (2 - Td) [place], [place] Start: 12-30-2023 Lipid panel Lipid screen [place], [place] Start: 02-11-2023 Screening for malign ant neoplasm of cervix Cervical cancer screen [place] Start: 01-12-2023 Screening for malign ant neoplasm of colon Colon cancer screen colonoscopy [place] Start: 02-23-2020 Screening for malign ant neoplasm of breast Breast cancer screen [place] Start: 02-13-2020 Pneumococcal 65+ yea rs Vaccine (1 of 1 - PPSV23) Pneumococcal 65+ years Vaccine (1 of 1 - PPSV23) [place] Start: 02-08-2020 End: 02-08-2020 Office Visit 02/08/2020 Office Visit Family Medicine Ottoniel Fuchs MD [address] [place] [address] [facility] Start: 12-30-2019 Creatinine measurement Creatinine mo [place]itoring [place] Start: 12-30-2019 HbA1c (Bld) [Mass fraction] A1C test (Diabetic or Prediabetic) [place] Start: 12-30-2019 Potassium monitoring Potassium monit [place]ing [place] Start: 12-30-2019 TSH Qn TSH testing [place], [place] Start: 09-09-2019 Screening for malign ant neoplasm of lung Low dose CT lung screening [place] Start: 08-09-2019 Annual Wellness Visi t (AWV) Annual Wellness Visit (AWV) [place] Immunizations Immunization Date Immunization Notes Care Provider Fa cility 03-08-2023 influenza virus vacc ine, unspecified formulation Kale MARINELLI [facility] 02-04-2021 SARS-CoV-2 (COVID-19 ) Ad26 vaccine, recombinant Kale ISIS [facility] Comment on above: Result Comment: 2022: [id number] 03-30-2019 Seasonal, quadrivale nt, recombinant, injectable influenza vaccine, preservative free [facility] [place] 12-29-2018 zoster vaccine recombinant [facility] [place] 02-11-2018 influenza virus vacc ine, unspecified formulation [facility] [place] 02-11-2018 influenza, injectabl e, quadrivalent, contains preservative [facility] [place] 02-11-2018 zoster vaccine recombinant [facility] [place] 12-25-2015 tetanus toxoid, redu florentino diphtheria toxoid, and acellular pertussis vaccine, adsorbed [facility] [place] 02-12-2015 pneumococcal polysaccharide vaccine, 23 valent [facility] 02-12-2015 zoster vaccine, live [place], [place] Payers Date Payer Category Payer Medicare MEDICARE MEDICAR E PART A AND B xxxxxxxxxxx 2019-Present [phone] [place] [address] xxxxxxxxxxx [id number] 2019 Private Health Insurance [employer] Surinder AGUIRRE SENIOR MEDICARE SUPP xxxxxxxxxx 2019-Present [phone] [address] [place] [address] xxxxxxxxxx [id number] 1960 Unknown [id number] .668 1960 Unknown [id number] .668 1959 Medicare [id number] 1959 Private Health Insurance CLI [id number] 1954 Unknown [id number] .668 1954 Unknown [id number] [id number] .668 1954 Unknown [id number] 2.16.840.1.852875.3.579.2 .668 1954 Unknown [id number] 2.840.1.474037.3.579.2 .1954 Unknown [id number] 2.840.1.753947.3.579.2 .668 1954 Unknown [id number] 2.840.1.449936.3.579.2 .668 1954 Unknown [id number] 2.840.1.519632.3.579.2 .668 1954 Unknown [id number] 2.840.1.383105.3.579.2 .593 1954 Unknown [id number] 2.840.1.131251.3.579.2 .593 1954 Unknown [id number] 2.840.1.105679.3.579.2 .593 1954 Unknown [id number] 2.840.1.960638.3.579.2 .593 1954 Unknown [id number] 2.840.1.765933.3.579.2 .593 1954 Unknown [id number] 2.16840.1.291968.3.579.2 .593 1954 Unknown [id number] 2.840.1.857051.3.579.2 .1259 1954 Unknown [id number] [id number] .727 Unknown Social History Date Type Detail Facility Start: 08-02-1971 Tobacco smoking stat [facility] Current every day smoker [place] Start: 08-02-1971 History of tobacco use Cigarette Smo ker [place] Start: 08-09-2019 Cigarettes smoked current (pack per day) - Reported [place] Start: 08-09-2019 Alcohol intake Current drinke r of alcohol (finding) [place] Start: 12-29-2018 History SDOH Alcohol Frequency 4 [place] Start: 12-29-2018 History SDOH Alcohol Std Drinks 1 [place] Start: 12-29-2018 History SDOH Social Connections Get Together 2 [place] Start: 12-29-2018 History SDOH Social Connections Living 3 [place] Start: 12-29-2018 History SDOH Physica l Activity DPW 0 [place] Start: 12-29-2018 History SDOH Financial 5 [place] Start: 08-16-2017 Tobacco Comment Less than a pack a d ay [place] Start: 08-16-2017 Alcohol Comment Occasionally [place], [place] Start: 1955 Sex Assigned At Not on file M [place], [place] Tobacco smoking stat [facility] Tobacco smoking consumption unknown [facility] Gender identity Not on file [facility] Start: 04-21-2023 Tobacco smoking status Ex-smoker (fi nding) [facility] Tobacco smoking status Never [facility] Goals Date Patient Goal Desired Activity /State Comment on above: Quit Smoking. Barriers: lack of motivation Plan for overcoming my barriers: Will discuss plan with provider. Confidence: 12/03 Anticipated Goal Completion Date: 1 year. Functional Status Date Assessment Result Facility 04-21-2023 Functional Status N/A [facility]-21-2023 Note Date & Type Note Facility 04-21-2023 Note Chief Complaint consultation for screening colonoscopy HPI Staff 67 year old female presents on consultation from Dr. Hopkins for screening colonoscopy. Denies abdominal or rectal pain. No rectal bleeding or change in bowel habits. Denies nausea or vomiting. No unexplained weight loss. Previous colonoscopy completed approximately 10 years ago and reported normal per patient. No known family history of colon cancer. History of Present Illness 67 yo female with h/o htn, COPD, hypothyroidism, referred for colorectal screening; denies change in bms or blood in stools; no abdominal complaints; on baby asa daily, no NSAID use, no SBE prophylaxis; abdominal operations significant for x 2, tubal ligation and laparoscopy, last colonoscopy reportedly wnl, patient unsure of date; no fmhx of GI malignancy or IBD; no tobacco use. Review of Systems PHQ Score Initial Depression Screen Score: 0 SCORE ROS - Provider Constitutional: no fever, no sweats, no weight loss. Eyes: no glasses, no blurred vision, no visual loss. ENMT: no dentures, no hoarseness, no swallowing difficulties, no hearing loss, no ear infection(s), no nose bleeds. Cardiovascular: normal blood pressure, no chest pain, regular heartbeat, no heart murmur. Respiratory: no shortness of breath, no cough, no asthma, no wheezing. Gastrointestinal: no nausea, no vomiting, no diarrhea, no constipation, no blood in stool, no change in bowel habits, no abdominal pain, no hepatitis. Genitourinary: no kidney stones, no urine infection, no dysuria. Musculoskeletal: no pain, no weakness. Skin: no changing moles, no rash, no skin lumps. Neurologic: no seizures, no epilepsy, no headache. Psychiatric: no emotional or psychiatric problem. Heme/Lymph: no bleeding problems, no anemia, no blood clots, no transfusions. Allergy/Immunologic: no swollen lymph nodes/glands, no IV drug abuse. Other: Additional ROS info: Except as noted in the above Review of Systems and in the History of Present Illness, all other systems have been reviewed and are negative or noncontributory. Physical Exam Vitals & Measurements HR: 72(Peripheral) RR: 16 BP: 128/78 HT: 64 in HT: 162.5 cm WT: 79.9 kg WT: 175.78 lb BMI: 30.26 HEENT: normal conjunctiva, sclera clear, no scleral icterus, EOM intact, PERRLA, oral mucosa moist without lesions. Neck: trachea midline, no mass, symmetric, no thyromegaly or nodules, no adenopathy Respiratory: lungs CTA, respirations non labored. Cardiovascular: regular rate and rhythm, no murmur, no pedal edema or varicosities. Gastrointestinal: obese soft, non distended, no tenderness, no masses, no palpable hernias, diastasis recti no, no hepatosplenomegaly; normal bs Lymphatic: no cervical adenopathy, no supraclavicular adenopathy. Musculoskeletal: normal gait, digits and nails without infection, nodes, cyanosis, clubbing. Skin: no rashes, no lesions, no ulcers, no subcutaneous nodules, induration. Psychiatric/Neuro: oriented to time, place, person, judgement normal, affect appropriate for age, insight intact, no focal deficits. Tests: review of old records completed , Discussed surgical options, risks, and possible complications with patient. Assessment/Plan 1. Screening for malignant neoplasm of colon (Z12.11: Encounter for screening for malignant neoplasm of colon) plan colonoscopy under anesthesia, informed consent obtained. Follow-up No qualifying data available Problem List/Past Medical History Ongoing BMI 30.0-30.9,adult Centrilobular emphysema Chronic respiratory failure with hypoxia Former tobacco use HTN (hypertension) Hypothyroidism Multiple pulmonary nodules Obesity Screening for malignant neoplasm of colon Historical Nicotine dependence Procedure/Surgical History Bronchoscopy, Cataract extraction, section, section, Colonoscopy, Laparoscopy, Thyroidectomy, Tubal ligation. Medications Albuterol (Eqv-ProAir HFA), 2 puff(s), Inhalation, q4hr, PRN amLODIPine 5 mg Tab, 5 mg= 1 tab(s), Oral, Daily aspirin 81 mg Oral EC Tab, 81 mg= 1 tab(s), Oral, Daily Breo Ellipta 100 mcg-25 mcg inhalation powder, 1 puff(s), Inhalation, Daily Flonase 0.05 mg/inh [place], 100 mcg, Nasal, Daily levothyroxine 112 mcg (0.112 mg) Tab, 112 mcg= 1 tab(s), Oral, Daily losartan 50 mg Tab, 50 mg= 1 tab(s), Oral, Daily multivitamin, 1 tab, Oral, Daily sodium chloride 0.9% Inj 10 mL Vial, 1 inh, NEB, TID Allergies No Known Allergies No Known Medication Allergies Social History Alcohol - Denies Alcohol Use, 04/21/2023 Substance Abuse - Denies Substance Abuse, 04/21/2023 Tobacco Former smoker, quit more than 30 days ago Tobacco Use:. Never Smokeless Tobacco Use:. Cigarettes, 1 per day. Started age 18.0 Years. Stopped age 66 Years., 04/21/2023 Family History COPD: Mother. Diabetes mellitus type 2: Mother. Heart disease: Mother and Father. Hyperlipidemia: Father. Primary malignant neoplasm of lung: Brother. (more content not included)... [facility] Comment on above: Result Comment: Elec tronically Signed By: ISIS ALCANTAR, Kale Thurman\Date and Time Signed: 04/21/23 14:46 EST Evaluation + Plan note Note Date & Type Note Facility Evaluation + Plan note No data available for this section [facility] Discharge instructions Note Date & Type Note Facility Hospital Discharge instructions No data available for this section [facility] note Note Date & Type Note Facility Progress note No data available for this section [facility] Summary Purpose Family History No Family History Records FoundNo Family History Records FoundNo Family History Records FoundNo Family History Records FoundNo Family History Records FoundNo Family History Records Found No data available for this section No Family History Records Found Advance Directives No Advanced Directives Records FoundDocuments on File Type Date Recorded Patient Tile Sorter Expl anation Advance Directives and Living Will 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 [place] [id number] Assessments Diagnosis Cigarette nicotine dependence with nicotine-induced disorder Unspecified drug-induced mental disorder Additional Source Comments INFORMATION SOURCE (unrecogn ized section and content) DATE CREATED AUTHOR 10/20/2017 [facility] DATE CREATED AUTHOR AUTHOR'S ORGANIZ ATION 04/04/2018 [facility] DATE CREATED AUTHOR AUTHOR'S ORGANIZ ATION 04/09/2018 [facility] DATE CREATED AUTHOR AUTHOR'S ORGANIZ ATION 09/26/2019 [facility] DATE CREATED AUTHOR AUTHOR'S ORGANIZ ATION 10/02/2022 [facility] DATE CREATED AUTHOR AUTHOR'S ORGANIZ ATION 04/03/2023 [facility] EPIC DATE CREATED AUTHOR AUTHOR'S ORGANIZ ATION 04/24/2023 Shahriar Reddy [facility] Care Teams (unrecognized sec tion and content) Diagnostic Sales Specialist Relationship Specialty Start Date End Date Ottoniel Fuchs MD [address] [place] [id number] PCP - General 12/21/13 FOR RECORDS PERTAINING TO PATIENTS WHO ARE OR HAVE BEEN ENROLLED IN A CHEMICAL DEPENDENCY/SUBSTANCEABUSE PROGRAM, SOME INFORMATION MAY BE OMITTED. This clinical summary was aggregated from multiple sources. Caution should be exercised in using it in the provision of clinical care. This summary normalizes information from multiple sources, and as a consequence, information in this document may materially change the coding, format and clinical context of patient data. In addition, data may be omitted in some cases. CLINICAL DECISIONS SHOULD BE BASED ON THE PRIMARY CLINICAL RECORDS. [facility]. provides no warranty or guarantee of the accuracy or completeness of information in this document.
[2023-05-12] MEDS: LACTATED RINGER'S SOLUTION 1,000 ML 50 ML IV (08:39)
[2023-05-12 10:00] VITALS: BP 118/71; PULSE 60; RESP 16; TEMP 36.2; O2SAT 95
[2023-05-12 10:15] VITALS: BP 115/58; PULSE 59; RESP 16; TEMP 36.2; O2SAT 98
[2023-05-12 10:31] VITALS: BP 133/62; PULSE 61; RESP 16; O2SAT 93
== END 2023-05-12 10:30 | disposition home or self-care (01) ==
PROVIDERS: PCP Family Medicine; Visit Provider Surgery
PROC: (CPT 45385; principal; 2023-05-12 09:25)
DX: Z12.11 Encounter for screening for malignant neoplasm of colon (principal); K63.5 Polyp of colon; J43.2 Centrilobular emphysema; Z87.891 Personal history of nicotine dependence; I10 Essential (primary) hypertension; E03.9 Hypothyroidism, unspecified; E66.9 Obesity, unspecified; Z68.30 Body mass index [BMI] 30.0-30.9, adult; Z79.82 Long term (current) use of aspirin; Z98.51 Tubal ligation status
CPT/HCPCS: 45385; 88305; J2704

== ENCOUNTER 2023-06-15 15:21 | Outpatient (OUT) | payer MEDICARE, SELFPAY ==
--- NOTE | 2023-06-15 15:31 | MM_ITS ---
Patient Name: ERICA CHACON MR#: [id number] : 1955 Exam Date: 06/15/2023 Ordering Doctor: DR Antonio Riggins . RADIOLOGY REPORT PROCEDURE: MM TOMOSYNTHESIS SCREENING BI COMPARISON: MG MAMM SCREEN SWATI W CAD, 02/19/2017. MG MAMM SCREEN 3D SWATI CAD, 02/22/2018. INDICATIONS: screening Calculator Name NCI Breast Cancer Risk Assessment Tool 5 Year Breast Cancer Risk Not Reported. Lifetime Breast Cancer Risk Not Reported. Personal Breast Cancer No Personal Ovarian Cancer No Treatments None Family Cancers None LOCATION: [facility] BREAST COMPOSITION: Scattered areas fibroglandular density. FINDINGS: DIAGNOSTIC CATEGORY 2--BENIGN FINDING. NO CHANGE FROM COMPARISON. Scattered benign-appearing calcifications are present. Scattered benign-appearing lymph nodes are present. This exam includes additional mammographic views for implant evaluation and shows no visible implant abnormality. RIGHT BREAST: No significant suspicious finding. LEFT BREAST: No significant suspicious finding. RECOMMENDATIONS: ROUTINE MAMMOGRAM AND CLINICAL EVALUATION IN 12 MONTHS. PLEASE NOTE: A NORMAL MAMMOGRAM DOES NOT EXCLUDE THE POSSIBILITY OF BREAST CANCER. A CLINICALLY SUSPICIOUS PALPABLE LUMP SHOULD BE BIOPSIED. Dictated by: Elias Arellano MD on 06/24/2023 at 15:37 Approved by: Elias Arellano MD on 06/24/2023 at 15:38
[2023-06-15 16:16] LABS: Basophils Percent Auto 0.5 % (0.2-2.0); Eosinophils Absolute Auto 0.1 10^3/uL (0.0-0.7); Eosinophils Percent Auto 2.2 % (0.9-7.0); Hematocrit 43.3 % (36.0-48.0); Hemoglobin 13.9 g/dL (12.0-16.0); Immature Granulocytes Abs Auto 0.02 10^3/uL (0.00-0.03); Immature Granulocytes Pct Auto 0.3 % (0.0-0.5); Lymphocytes Absolute Auto 1.9 10^3/uL (1.2-3.8); Lymphocytes Percent Auto 30.8 % (20.5-60.0); Mean Corpuscular HGB Conc 32.1 g/dL (29.9-35.2); Mean Corpuscular Hemoglobin 30.8 pg (26.7-34.0); Mean Platelet Volume 9.2 fL (9.5-13.5); Monocytes Absolute Auto 0.8 10^3/uL (0.3-0.8); Neutrophils Absolute Auto 3.4 10^3/uL (1.4-6.5); Neutrophils Percent Auto 54.2 % (43.0-75.0); Platelet Count 233 10^3/uL (150-450); Red Blood Count 4.51 10^6/uL (4.20-5.40); Red Cell Distribution Width 13.4 % (11.0-15.0); White Blood Count 6.3 10^3/uL (4.0-11.0)
[2023-06-15 16:44] LABS: Estimated Average Glucose 131 mg/dL; Glycohemoglobin A1C 6.2 % (4.5-6.2)
[2023-06-15 16:56] LABS: Free T4 1.11 ng/dL (0.76-1.46)
[2023-06-15 16:57] LABS: Alanine Aminotransferase 15 U/L (14-59); Albumin Globulin Ratio 1.1; Albumin Level 3.9 g/dL (3.4-5.0); Alkaline Phosphatase 62 U/L (46-116); Anion Gap 12.2; Aspartate Amino Transferase 11 U/L (15-37); Bilirubin Direct 0.1 mg/dL (0.0-0.2); Bilirubin Total 0.3 mg/dL (0.2-1.0); Calcium 9.2 mg/dL (8.5-10.1); Carbon Dioxide 28.6 mmol/L (21.0-32.0); Chloride 103 mmol/L (98-107); Chol HDL Ratio 2.4; Cholesterol 219 mg/dL (<=200); Estimated GFR (African America >60 (>=60); Estimated GFR (Non-African Ame >60 (>=60); Free T3 2.31 pg/mL (2.18-3.98); Globulin 3.4 g/dL; Glucose 83 mg/dL (74-106); HDL Cholesterol 91 mg/dL (40-60); Potassium 3.8 mmol/L (3.5-5.1); Sodium 140 mmol/L (136-145); Thyroid Stimulating Hormone 5.216 uIU/mL (0.358-3.740); Total Protein 7.3 g/dL (6.4-8.2); Triglycerides 64 mg/dL (<=150); VLDL CHOLESTEROL 12.8 mg/dL
== END 2023-06-15 15:22 | disposition home or self-care (01) ==
LOC: MAMMO 15:23
PROVIDERS: PCP Family Medicine; Visit Provider Family Medicine
DX: Z12.31 Encounter for screening mammogram for malignant neoplasm of breast (principal); I10 Essential (primary) hypertension; R73.03 Prediabetes; Z79.899 Other long term (current) drug therapy; Z13.220 Encounter for screening for lipoid disorders; E89.0 Postprocedural hypothyroidism
CPT/HCPCS: 36415; 77063; 77067; 80048; 80061; 80076; 83036; 84439; 84443; 84481; 85025

== ENCOUNTER 2023-07-22 08:30 | Emergency (ER) | payer MEDICARE, SELFPAY ==
[2023-07-22 08:31] VITALS: BP 160/80; PULSE 73; RESP 20; TEMP 37.2; O2SAT 97
--- OUTSIDE RECORDS SUMMARY | 2023-07-22 08:38 | XMS_ITS | CCD ---
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 Name Role Phone Niraula, Ezra Unavailable Unavailable PROVIDER, UNKNOWN Unavailable Unavailable JEF, OTTONIEL B Unavailable Unavailable Jef, Ottoniel Unavailable Unavailable PROVIDER, UNKNOWN Unavailable Unavailable Willow Wood, Ottoniel Unavailable Unavailable DOZIER, DEEPIKAH Unavailable Unavailable PROVIDER, UNKNOWN Unavailable Unavailable Jef, Ottoniel Unavailable Unavailable FIGUEROA, MASROOR Unavailable Unavailable PROVIDER, UNKNOWN Unavailable Unavailable Jef, Ottoniel Unavailable Unavailable FIGUEROA, MASROOR Unavailable Unavailable PROVIDER, UNKNOWN Unavailable Unavailable Willow Wood, Ottoniel Unavailable Unavailable Jef, Ottoniel Unavailable Unavailable PROVIDER, UNKNOWN Unavailable Unavailable Jef, Ottoniel Unavailable Unavailable FIGUEROA, MASROOR Unavailable Unavailable PROVIDER, UNKNOWN Unavailable Unavailable Jef, Ottoniel Unavailable Unavailable NIRAULA, EZRA Unavailable Unavailable Jef, Ottoniel Unavailable Unavailable Tsivitse, Eddi Unavailable Unavailable PROVIDER, UNKNOWN Unavailable Unavailable Jef, Ottoniel Unavailable Unavailable Willow Wood, Ottoniel Primary Care Provider [phone] DR HANDY KEATING Consulting Unavailable SANDEEP, DR NICO Cadena Primary Care Unavailable SAMSA ., ALIS Attending Unavailable MADIESA ., ALIS Admitting Unavailable MADIESA ., ALIS Consulting Unavailable SANDEEP, DR NICO Cadena Primary Care Unavailable SANDEEP, DR NICO Cadena [...] ALIS Consulting Unavailable ARIANNA CEVALLOS Consulting Unavailable LEATHA, DAMASO Consulting Unavailable SHARP, TERESA Consulting Unavailable TAL ., DANNI Consulting Unavailable TAL II, ANNALISA Consulting Unavailable DANNI PHELAN Consulting Unavailable SONIDO ., ALIS Admitting Unavailable DR NICO HOPKINS Primary Care Unavailable MADIESA ., ALIS Attending Unavailable MADIESA ., ALIS Consulting Unavailable MADIESA ., ALIS Admitting Unavailable DR NICO HOPKINS Primary Care Unavailable SAMSA ., ALIS Attending Unavailable MADIESA ., ALIS Consulting Unavailable HOWIE CAMPO Consulting Unavailable RODRIGUEZ SCHUSTER Consulting Unavailable SONIYA NARVAEZ Consulting Unavailable Ottoniel Fuchs MD Primary Care Provider NICO HOPKINS Attending Unavailable NICO HOPKINS Primary Care Physician Kale MARINELLI Attending Unavailable NICO HOPKINS Referring Unavailable Kale MARINELLI Attending Unavailable Kale MARINELLI Attending Unavailable Allergies Allergy Classification Reported Allergen(s) Allergy Type Date of Onset Reaction(s) Facility (1 source) No Known Medication Allergies; Translations: [No Known Medication Allergies] Propensity to adverse reactions (disorder) [facility] Repository Medications Current Medications Medication Drug Class(es) [...] source) Corticosteroid Start: 04-09-2023 Flonase 0.05 mg/inh Scotrun 100 mcg, Nasal, Daily, Refill(s) 0 Start [...] disease (2 sources) Atherosclerotic heart disease of [place] coronary artery without angina pectoris; Translations: [Athscl heart disease of [place] coronary artery w/o ang pctrs] Onset: 03-08-2018 Chronic Deficiency and other anemia (2 sources) Anemia, unspecified; Translations: [Anemia, unspecified] Onset: 04-04-2018 Episodic Esophageal disorders (1 source) Gastro-esophageal reflux disease without esophagitis; Translations: [GERD WITHOUT ESOPHAGITIS] Onset: 04-01-2022 Chronic Essential hypertension (6 sources) Essential (primary) hypertension; Translations: [Benign hypertension] Onset: 12-25-2015 12-25-2015 Chronic Menopausal disorders (1 source) Hormone replacement therapy; Translations: [HORMONE REPLACEMENT THERAPY] Onset: 09-22-2022 Episodic Other aftercare (1 source) senior care (current) use of aspirin; Translations: [FPC CURRENT USE OF ASPIRIN] Onset: 09-22-2022 Episodic Other aftercare (5 sources) Other terminal manager (current) drug therapy; Translations: [OTH [facility] CURRENT DRUG THERAPY] Onset: 10-30-2021 Episodic Other [...] Translations: [Abnormal findings on dx imaging of oth body structures] Onset: 04-04-2018 Unclassified (1 source) [...] Test Name Value Interpretation Reference Range Facility General Surgery Office/Clini c Noteon 06-14-2023 General Surgery Office/Clinic Note Chief Complaint colonoscopy follow up HPI Staff 23 day post operative follow up post colonoscopy with sigmoid polypectomy. History of Present Illness f/u colonoscopy with removal of 4 mm sigmoid polyp, pathology consistent with hyperplastic polyp; doing well, denies abd pain or blood in stools. Review of Systems ROS - Provider Constitutional: no fever, no [...] been reviewed and are negative or noncontributory. Assessment/Plan 1. Hyperplastic polyp of sigmoid colon (K63.5: Polyp of colon) plan f/u screening colonoscopy in 10 years, call sooner if problems/questions. Follow-up No qualifying data available Problem List/Past Medical History Ongoing BMI 30.0-30.9,adult Centrilobular emphysema Chronic respiratory failure with hypoxia Former tobacco use HTN (hypertension) Hyperplastic polyp of sigmoid colon Hypothyroidism Multiple pulmonary nodules Obesity Screening for malignant neoplasm of colon Historical Nicotine dependence Procedure/Surgical History Colonoscopy (05/12/2023), Bronchoscopy, Cataract extraction, section, section, Colonoscopy, Laparoscopy, Thyroidectomy, Tubal ligation. Medications Albuterol (Eqv-ProAir HFA), 2 puff(s), Inhalation, q4hr, PRN amLODIPine 5 mg Tab, 5 mg= 1 tab(s), Oral, Daily aspirin 81 mg Oral EC Tab, 81 mg= 1 tab(s), Oral, Daily Breo Ellipta 100 mcg-25 mcg inhalation powder, 1 puff(s), Inhalation, Daily Flonase 0.05 mg/inh Scotrun, 100 mcg, Nasal, Daily levothyroxine 112 mcg [...] Father. Primary malignant neoplasm of lung: Brother. Immunizations Vaccine Date Status Comments influenza virus vaccine, inactivated 03/08/2023 Recorded SARS-CoV-2 (COVID-19) Ad26 vaccine 02/04/2021 Recorded 2023-04-09: TPV65 patient seen 06/04/2023 [facility] Comment on above: Result Comment: Elec tronically Signed By: CYNDI ALCANTAR, Kale Gonzalez\.br\Date and Time Signed: 06/14/23 16:34 EST Ambulatory Visit Summaryon 0 06-04-2023 Ambulatory Visit Summary ERICA CHACON :1955 Visit Date:06/04/2023 Ambulatory Visit Instructions Your Care Team Attending Physician - CYNDI ALCANTAR, Kale Gonzalez Primary Care Physician - NICO HOPKINS MD This Is Your Medications List albuterol (Albuterol (Eqv-ProAir HFA)) amlodipine (amLODIPine 5 mg Tab) aspirin (aspirin 81 mg Oral EC Tab) fluticasone nasal (Flonase 0.05 mg/inh Scotrun) fluticasone-vilantero l (Breo Ellipta 100 mcg-25 mcg inhalation powder) levothyroxine (levothyroxine 112 mcg (0.112 mg) Tab) losartan (losartan 50 mg Tab) multivitamin sodium chloride (sodium chloride 0.9% Inj 10 mL Vial) Procedures Performed Colonoscopy (05/12/2023), Bronchoscopy, Cataract extraction, section, section, Colonoscopy, Laparoscopy, Thyroidectomy, Tubal ligation. Medications What How Much When Instructions Unchanged albuterol (Albuterol (Eqv-ProAir HFA)) 2 Puffs Inhalation Every 4 hours as needed for Shortness of breath or wheezing Unchanged amlodipine (amLODIPine 5 mg Tab) 1 Tablets By Mouth Every day Unchanged aspirin (aspirin 81 mg Oral EC Tab) 1 Tablets By Mouth Every day Unchanged fluticasone nasal (Flonase 0.05 mg/ inh Scotrun) 100 Microgram Nasal Inhalation Every day Unchanged fluticasone-vilantero l (Breo Ellipta 100 mcg-25 mcg inhalation powder) 1 Puffs Inhalation Every day Unchanged levothyroxine (levothyroxine 112 mcg (0.112 mg) Tab) 1 Tablets By Mouth Every day Unchanged losartan (losartan 50 mg Tab) 1 Tablets By Mouth Every day Unchanged multivitamin 1 tab By Mouth Every day Unchanged sodium chloride (sodium chloride 0.9% Inj 10 mL Vial) 1 Inhalation Nebulized inhalation (aerosol) 3 times a day Allergies No Known Allergies No Known Medication [...] you for choosing us for your care. [facility] Reminderson 06-04-2023 Reminders - From: Tamia Price LPN To: N - Clinical; Sent: 06/04/2023 14:05:05 EST Show up: 04/11/2033 07:00:00 EST Subject: colonoscopy recall Due Date/Time: 05/12/2033 07:00:00 EST Reminder/Recall Patient due for screening colonoscopy 05/12/2033. [facility] Outside Colonoscopyon 2023 Outside Colonoscopy [id number]#1 .00TIFF [facility] Pathology Noteon 05-20-2023 Pathology Note [id number]#1. 00TIFF [facility] Insurance Correspondenceon 0 05-05-2023 Insurance Correspondence [id number]#1 .00TIFF [facility] Consent for Procedure/Surger yon 04-23-2023 Consent for Procedure/Surgery [id number]#1 .00TIFF Normal [facility] Facesheeton 04-22-2023 Facesheet [id number]# 1.00TIFF Normal [facility] Ambulatory Visit Summaryon 1 06-22-2022 Ambulatory Visit Summary ERICA CHACON :1955 Visit Date:04/21/2023 Ambulatory Visit Instructions Your Diagnosis Screening for malignant neoplasm of colon Your Care Team Attending Physician - CYNDI ALCANTAR, Kale Gonzalez Primary Care Physician - SANDEEP ALCANTAR, NICO Referring Physician - SANDEEP ALCANTAR, NICO This Is Your Medications List Contact prescribing physician if questions or concerns albuterol (Albuterol (Eqv-ProAir HFA)) amlodipine (amLODIPine 5 mg Tab) aspirin (aspirin 81 mg Oral EC Tab) fluticasone nasal (Flonase 0.05 mg/inh Scotrun) fluticasone-vilantero l (Breo Ellipta 100 mcg-25 mcg inhalation powder) [...] Unchanged fluticasone nasal (Flonase 0.05 mg/ inh Scotrun) 100 Microgram Nasal Inhalation Every day Contact prescribing physician if questions or concerns Unchanged fluticasone-vilantero l (Breo Ellipta 100 mcg-25 mcg inhalation powder) [...] you for choosing us for your care. [facility] Transfer Inon 04-06-2023 Transfer In [id number]#1 .00TIFF [facility] Physician Referralon 023 Physician Referral [id number]#1 .00TIFF [facility] CBC AUTO DIFFon 09-23-2022 BASO # 0.0 103/ul Normal 0.0-0.1 [facility] Comment on above: Performed By: #### C YTO #### [facility] [address] [address] [address] Jayy Marquez Basophils/100 WBC (Bld) 0.4 % Normal 0.2-2.0 [facility] Comment on above: Performed By: #### C YTO #### [facility] [address] [address] [address] Jayy Marquez EO # 0.1 103/ul Normal 0.0-0.7 [facility] Comment on above: Performed By: #### C YTO #### [facility] [address] [place] [address] Dr. Jayy Marquez Eosinophils/100 WBC (Bld) 0.5 % Critically low 0.9-7.0 [facility] Comment on above: Performed By: #### C YTO #### [facility] [address] [place] [address] Dr. Jayy Marquez Erythrocyte distribution width (RBC) [Ratio] 13.1 % Normal 11.0-15.0 [facility] Comment on above: Performed By: #### C YTO #### [facility] [address] [place] [address] Dr. Jayy Marquez Hematocrit (Bld) [Volume fraction] 43.0 % Normal 36.0-48.0 [facility] Comment on above: Performed By: #### C YTO #### [facility] [address] [place] [address] Dr. Jayy Marquez Hemoglobin (Bld) [Mass/Vol] 13.9 g/dL Normal 12.0-16.0 [facility] Comment on above: Performed By: #### C YTO #### [facility] [address] [place] [address] Dr. Jayy Marquez IG # 0.04 10e3/ul Critically high 0.00-0.03 [facility] Comment on above: Performed By: #### C YTO #### [facility] [address] [place] [address] Dr. Jayy Marquez IG % 0.4 % Normal 0.0-0.5 [facility] Comment on above: Performed By: #### C YTO #### [facility] [address] [place] [address] Dr. Jayy Marquez LYMPH # 0.7 103/ul Critically low 1.2-3.8 [facility] Comment on above: Performed By: #### C YTO #### [facility] [address] [place] [address] Dr. Jayy Marquez Lymphocytes/100 WBC (Bld) 6.7 % Critically low 20.5-60.0 [facility] Comment on above: Performed By: #### C YTO #### [facility] [address] [place] [address] Dr. Jayy Marquez MANUAL DIFF REQ NO Normal [facility] Comment on above: Performed By: #### C YTO #### [facility] [address] [place] [address] Dr. Jayy Marquez MCH (RBC) [Entitic mass] 31.2 pg Normal 26.7-34.0 [facility] Comment on above: Performed By: #### C YTO #### [facility] [address] [place] [address] Dr. Jayy Marquez MCHC (RBC) [Mass/Vol] 32.3 g/dL Normal 29.9-35.2 [facility] Comment on above: Performed By: #### C YTO #### [facility] [address] [place] [address] Dr. Jayy Marquez MCV (RBC) [Entitic vol] 96.4 fL Normal 81.0-99.0 [facility] Comment on above: Performed By: #### C YTO #### [facility] [address] [place] [address] Dr. Jayy Marquez MONO # 0.9 103/ul Critically high 0.3-0.8 [facility] Comment on above: Performed By: #### C YTO #### [facility] [address] [place] [address] Dr. Jayy Marquez Monocytes/100 WBC (Bld) 8.2 % Normal 1.7-12.0 [facility] Comment on above: Performed By: #### C YTO #### [facility] [address] [place] [address] Dr. Jayy Marquez NEUT # 9.0 103/ul Critically high 1.4-6.5 [facility] Comment on above: Performed By: #### C YTO #### [facility] [address] [place] [address] Dr. Jayy Marquez Neutrophils/100 WBC (Bld) 83.8 % Critically high 43.0-75.0 [facility] Comment on above: Performed By: #### C YTO #### [facility] [address] [place] [address] Dr. Jayy Marquez Platelet mean volume (Bld) [Entitic vol] 10.4 fL Normal 9.5-13.5 [facility] Comment on above: Performed By: #### C YTO #### [facility] [address] [place] [address] Dr. Jayy Marquez PLT 232 103/ul Normal 150-450 [facility] Comment on above: Performed By: #### C YTO #### [facility] [address] [place] [address] Dr. Jayy Marquez RBC 4.46 106/ul Normal 4.20-5.40 [facility] Comment on above: Performed By: #### C YTO #### [facility] [address] [place] [address] Dr. Jayy Marquez WBC 10.7 103/ul Normal 4.0-11.0 [facility] Comment on above: Performed By: #### C YTO #### [facility] [address] [place] [address] Dr. Jayy Marquez PROF CHEM 8 (BAS METB)on Anion gap [Moles/Vol] 13.4 mmol/L Normal [facility] Comment on above: Performed By: #### B MP #### [facility] [address] [place] [address] Dr. Jayy Marquez Calcium [Mass/Vol] 9.1 mg/dL Normal 8.5-10.1 [facility] Comment on above: Performed By: #### B MP #### [facility] [address] [place] [address] Dr. Jayy Marquez Chloride [Moles/Vol] 100 mmol/L Normal 98-107 [facility] Comment on above: Performed By: #### B MP #### [facility] [address] [place] [address] Dr. Jayy Marquez CO2 [Moles/Vol] 27.2 mmol/L Normal 21.0-32.0 [facility] Comment on above: Performed By: #### B MP #### [facility] [address] [address] [address] Jayy Marquez Creatinine [Mass/Vol] 0.77 mg/dL Normal 0.55-1.02 [facility] Comment on above: Performed By: #### B MP #### [facility] [address] [address] [address] Jayy Marquez EGFR-AF KOSOVAN >60 Normal >=60 [facility] Comment on above: Performed By: #### B MP #### [facility] [address] [address] [address] Jayy Marquez EGFR-NON AF [place]AN >60 Normal >=60 [facility] Comment on above: Performed By: #### B MP #### [facility] [address] [address] [address] Jayy Marquez Glucose [Mass/Vol] 173 mg/dL Critically high 74-106 [facility] Comment on above: Performed By: #### B MP #### [facility] [address] [address] [address] Jayy Marquez Potassium [Moles/Vol] 4.6 mmol/L Normal 3.5-5.1 [facility] Comment on above: Performed By: #### B MP #### [facility] [address] [address] [address] Jayy Marquez Sodium [Moles/Vol] 136 mmol/L Normal 136-145 [facility] Comment on above: Performed By: #### B MP #### [facility] [address] [address] [address] Jayy Marquez Urea nitrogen [Mass/Vol] 16.0 mg/dL Normal 7.0-18.0 [facility] Comment on above: Performed By: #### B MP #### [facility] [address] [address] [address] Jayy Marquez Urea nitrogen/Creatinine [Mass ratio] 20.8 mg/mg Normal [facility] Comment on above: Performed By: #### B MP #### [facility] [address] [place] [address] Dr. Jayy Marquez XR CHEST 1 Von 09-23-2022 XR CHEST 1 V EXAM: XR CHEST 1 V HISTORY: SHORTNESS OF BREATH COMPARISON: 09/22/2022 TECHNIQUE: AP view of the chest. FINDINGS: The cardiomediastinal silhouette is normal. Interstitial opacity. There is no pneumothorax. No pleural effusion is noted. The osseous structures are intact. IMPRESSION: Mild congestion. Electronically authenticated by: ELENO FUENTES Date: 2022-09-23 14:29 Normal [facility] BNPon 09-22-2022 Natriuretic peptide B (Bld) [Mass/Vol] 243.0 pg/mL Normal <=900.0 [facility] Comment on above: Performed By: #### B MP, BNP, HSTROPN #### [facility] [address] [place] [address] Dr. Jayy Marquez CBC AUTO DIFFon 09-22-2022 BASO # 0.0 103/ul Normal 0.0-0.1 [facility] Comment on above: Performed By: #### C VDAGS #### [facility] [address] [place] [address] Dr. Jayy Marquez Basophils/100 WBC (Bld) 0.4 % Normal 0.2-2.0 [facility] Comment on above: Performed By: #### C VDAGS #### [facility] [address] [place] [address] Dr. Jayy Marquez EO # 0.0 103/ul Normal 0.0-0.7 [facility] Comment on above: Performed By: #### C VDAGS #### [facility] [address] [place] [address] Dr. Jayy Marquez Eosinophils/100 WBC (Bld) 0.0 % Critically low 0.9-7.0 [facility] Comment on above: Performed By: #### C VDAGS #### [facility] [address] [place] [address] Dr. Jayy Marquez Erythrocyte distribution width (RBC) [Ratio] 13.1 % Normal 11.0-15.0 [facility] Comment on above: Performed By: #### C VDAGS #### [facility] [address] [place] [address] Dr. Jayy Marquez Hematocrit (Bld) [Volume fraction] 42.7 % Normal 36.0-48.0 [facility] Comment on above: Performed By: #### C VDAGS #### [facility] [address] [place] [address] Dr. Jayy Marquez Hemoglobin (Bld) [Mass/Vol] 13.9 g/dL Normal 12.0-16.0 [facility] Comment on above: Performed By: #### C VDAGS #### [facility] [address] [place] [address] Dr. Jayy Marquez IG # 0.03 10e3/ul Normal 0.00-0.03 [facility] Comment on above: Performed By: #### C VDAGS #### [facility] [address] [place] [address] Dr. Jayy Marquez IG % 0.4 % Normal 0.0-0.5 [facility] Comment on above: Performed By: #### C VDAGS #### [facility] [address] [place] [address] Dr. Jayy Marquez LYMPH # 0.4 103/ul Critically low 1.2-3.8 [facility] Comment on above: Performed By: #### C VDAGS #### [facility] [address] [place] [address] Dr. Jayy Marquez Lymphocytes/100 WBC (Bld) 5.5 % Critically low 20.5-60.0 [facility] Comment on above: Performed By: #### C VDAGS #### [facility] [address] [place] [address] Dr. Jayy Marquez MANUAL DIFF REQ NO Normal [facility] Comment on above: Performed By: #### C VDAGS #### [facility] [address] [place] [address] Dr. Jayy Marquez MCH (RBC) [Entitic mass] 31.2 pg Normal 26.7-34.0 [facility] Comment on above: Performed By: #### C VDAGS #### [facility] [address] [place] [address] Dr. Jayy Marquez MCHC (RBC) [Mass/Vol] 32.6 g/dL Normal 29.9-35.2 [facility] Comment on above: Performed By: #### C VDAGS #### [facility] [address] [place] [address] Dr. Jayy Marquez MCV (RBC) [Entitic vol] 96.0 fL Normal 81.0-99.0 [facility] Comment on above: Performed By: #### C VDAGS #### [facility] [address] [place] [address] Dr. Jayy Marquez MONO # 0.3 103/ul Normal 0.3-0.8 [facility] Comment on above: Performed By: #### C VDAGS #### [facility] [address] [place] [address] Dr. Jayy Marquez Monocytes/100 WBC (Bld) 3.5 % Normal 1.7-12.0 [facility] Comment on above: Performed By: #### C VDAGS #### [facility] [address] [place] [address] Dr. Jayy Marquez NEUT # 6.9 103/ul Critically high 1.4-6.5 [facility] Comment on above: Performed By: #### C VDAGS #### [facility] [address] [place] [address] Dr. Jayy Marquez Neutrophils/100 WBC (Bld) 90.2 % Critically high 43.0-75.0 [facility] Comment on above: Performed By: #### C VDAGS #### [facility] [address] [place] [address] Dr. Jayy Marquez Platelet mean volume (Bld) [Entitic vol] 9.8 fL Normal 9.5-13.5 [facility] Comment on above: Performed By: #### C VDAGS #### [facility] [address] [place] [address] Dr. Jayy Marquez PLT 207 103/ul Normal 150-450 [facility] Comment on above: Performed By: #### C VDAGS #### [facility] [address] [place] [address] Dr. Jayy Marquez RBC 4.45 106/ul Normal 4.20-5.40 [facility] Comment on above: Performed By: #### C VDAGS #### [facility] [address] [place] [address] Dr. Jayy Marquez WBC 7.6 103/ul Normal 4.0-11.0 [facility] Comment on above: Performed By: #### C VDAGS #### [facility] [address] [place] [address] Dr. Jayy Marquez BASO # 0.0 103/ul Normal 0.0-0.1 [facility] Comment on above: Performed By: #### C BC #### [facility] [address] [place] [address] Dr. Jayy Marquez Basophils/100 WBC (Bld) 0.4 % Normal 0.2-2.0 [facility] Comment on above: Performed By: #### C BC #### [facility] [address] [place] [address] Dr. Jayy Marquez EO # 0.1 103/ul Normal 0.0-0.7 [facility] Comment on above: Performed By: #### C BC #### [facility] [address] [place] [address] Dr. Jayy Marquez Eosinophils/100 WBC (Bld) 1.4 % Normal 0.9-7.0 [facility] Comment on above: Performed By: #### C BC #### [facility] [address] [place] [address] Dr. Jayy Marquez Erythrocyte distribution width (RBC) [Ratio] 13.2 % Normal 11.0-15.0 [facility] Comment on above: Performed By: #### C BC #### [facility] [address] [place] [address] Dr. Jayy Marquez Hematocrit (Bld) [Volume fraction] 45.5 % Normal 36.0-48.0 [facility] Comment on above: Performed By: #### C BC #### [facility] [address] [place] [address] Dr. Jayy Marquez Hemoglobin (Bld) [Mass/Vol] 15.3 g/dL Normal 12.0-16.0 [facility] Comment on above: Performed By: #### C BC #### [facility] [address] [place] [address] Dr. Jayy Marquez IG # 0.03 10e3/ul Normal 0.00-0.03 [facility] Comment on above: Performed By: #### C BC #### [facility] [address] [place] [address] Dr. Jayy Marquez IG % 0.3 % Normal 0.0-0.5 [facility] Comment on above: Performed By: #### C BC #### [facility] [address] [place] [address] Dr. Jayy Marquez LYMPH # 1.3 103/ul Normal 1.2-3.8 [facility] Comment on above: Performed By: #### C BC #### [facility] [address] [place] [address] Dr. Jayy Marquez Lymphocytes/100 WBC (Bld) 13.8 % Critically low 20.5-60.0 [facility] Comment on above: Performed By: #### C BC #### [facility] [address] [place] [address] Dr. Jayy Marquez MANUAL DIFF REQ NO Normal [facility] Comment on above: Performed By: #### C BC #### [facility] [address] [place] [address] Dr. Jayy Marquez MCH (RBC) [Entitic mass] 32.0 pg Normal 26.7-34.0 [facility] Comment on above: Performed By: #### C BC #### [facility] [address] [place] [address] Dr. Jayy Marquez MCHC (RBC) [Mass/Vol] 33.6 g/dL Normal 29.9-35.2 [facility] Comment on above: Performed By: #### C BC #### [facility] [address] [place] [address] Dr. Jayy Marquez MCV (RBC) [Entitic vol] 95.2 fL Normal 81.0-99.0 [facility] Comment on above: Performed By: #### C BC #### [facility] [address] [place] [address] Dr. Jayy Marquez MONO # 1.3 103/ul Critically high 0.3-0.8 [facility] Comment on above: Performed By: #### C BC #### [facility] [address] [place] [address] Dr. Jayy Marquez Monocytes/100 WBC (Bld) 13.7 % Critically high 1.7-12.0 [facility] Comment on above: Performed By: #### C BC #### [facility] [address] [place] [address] Dr. Jayy Marquez NEUT # 6.7 103/ul Critically high 1.4-6.5 [facility] Comment on above: Performed By: #### C BC #### [facility] [address] [place] [address] Dr. Jayy Marquez Neutrophils/100 WBC (Bld) 70.4 % Normal 43.0-75.0 [facility] Comment on above: Performed By: #### C BC #### [facility] [address] [place] [address] Dr. Jayy Marquez Platelet mean volume (Bld) [Entitic vol] 9.6 fL Normal 9.5-13.5 [facility] Comment on above: Performed By: #### C BC #### [facility] [address] [place] [address] Dr. Jayy Marquez PLT 218 103/ul Normal 150-450 [facility] Comment on above: Performed By: #### C BC #### [facility] [address] [place] [address] Dr. Jayy Marquez RBC 4.78 106/ul Normal 4.20-5.40 [facility] Comment on above: Performed By: #### C BC #### [facility] [address] [place] [address] Dr. Jayy Marquez WBC 9.5 103/ul Normal 4.0-11.0 [facility] Comment on above: Performed By: #### C BC #### [facility] [address] [place] [address] Dr. Jayy Marquez PROF CHEM 8 (BAS METB)on Anion gap [Moles/Vol] 11.3 mmol/L Normal Th [facility] Comment on above: Performed By: #### B MP #### [facility] [address] [place] [address] Dr. Jayy Marquez Calcium [Mass/Vol] 8.7 mg/dL Normal 8.5-10.1 [facility] Comment on above: Performed By: #### B MP #### [facility] [address] [place] [address] Dr. Jayy Marquez Chloride [Moles/Vol] 100 mmol/L Normal 98-107 [facility] Comment on above: Performed By: #### B MP #### [facility] [address] [place] [address] Dr. Jayy Marquez CO2 [Moles/Vol] 27.6 mmol/L Normal 21.0-32.0 [facility] Comment on above: Performed By: #### B MP #### [facility] [address] [place] [address] Dr. Jayy Marquez Creatinine [Mass/Vol] 0.82 mg/dL Normal 0.55-1.02 [facility] Comment on above: Performed By: #### B MP #### [facility] [address] [place] [address] Dr. Jayy Marquez EGFR-AF KOSOVAN >60 Normal >=60 [facility] Comment on above: Performed By: #### B MP #### [facility] [address] [place] [address] Dr. Jayy Marquez EGFR-NON AF KOSOVAN >60 Normal >=60 [facility] Comment on above: Performed By: #### B MP #### [facility] [address] [address] [address] Jayy Marquez Glucose [Mass/Vol] 203 mg/dL Critically high 74-106 [facility] Comment on above: Performed By: #### B MP #### [facility] [address] [address] [address] Jayy Marquez Potassium [Moles/Vol] 3.9 mmol/L Normal 3.5-5.1 [facility] Comment on above: Performed By: #### B MP #### [facility] [address] [address] [address] Jayy Marquez Sodium [Moles/Vol] 135 mmol/L Critically low 136-145 [facility] Comment on above: Performed By: #### B MP #### [facility] [address] [place] [address] Dr. Jayy Marquez Urea nitrogen [Mass/Vol] 11.0 mg/dL Normal 7.0-18.0 [facility] Comment on above: Performed By: #### B MP #### [facility] [address] [address] [address] Jayy Marquez Urea nitrogen/Creatinine [Mass ratio] 13.4 mg/mg Normal [facility] Comment on above: Performed By: #### B MP #### [facility] [address] [place] [address] Dr. Jayy Marquez Anion gap [Moles/Vol] 12.9 mmol/L Normal [facility] Comment on above: Performed By: #### C YTO #### [facility] [address] [address] [address] Jayy Marquez Calcium [Mass/Vol] 9.2 mg/dL Normal 8.5-10.1 [facility] Comment on above: Performed By: #### C YTO #### [facility] [address] [place] [address] Dr. Jayy Marquez Chloride [Moles/Vol] 98 mmol/L Normal 98-107 [facility] Comment on above: Performed By: #### C YTO #### [facility] [address] [address] [address] Jayy Marquez CO2 [Moles/Vol] 25.8 mmol/L Normal 21.0-32.0 [facility] Comment on above: Performed By: #### C YTO #### [facility] [address] [address] [address] Jayy Marquez Creatinine [Mass/Vol] 0.90 mg/dL Normal 0.55-1.02 [facility] Comment on above: Performed By: #### C YTO #### [facility] [address] [address] [address] Jayy Marquez EGFR-AF KOSOVAN >60 Normal >=60 [facility] Comment on above: Performed By: #### C YTO #### [facility] [address] [place] [address] Dr. Jayy Marquez EGFR-NON AF KOSOVAN >60 Normal >=60 [facility] Comment on above: Performed By: #### C YTO #### [facility] [address] [place] [address] Dr. Jayy Marquez Glucose [Mass/Vol] 150 mg/dL Critically high 74-106 [facility] Comment on above: Performed By: #### C YTO #### [facility] [address] [place] [address] Dr. Jayy Marquez Potassium [Moles/Vol] 3.7 mmol/L Normal 3.5-5.1 [facility] Comment on above: Performed By: #### C YTO #### [facility] [address] [place] [address] Dr. Jayy Marquez Sodium [Moles/Vol] 133 mmol/L Critically low 136-145 [facility] Comment on above: Performed By: #### C YTO #### [facility] [address] [place] [address] Dr. Jayy Marquez Urea nitrogen [Mass/Vol] 14.0 mg/dL Normal 7.0-18.0 [facility] Comment on above: Performed By: #### C YTO #### [facility] [address] [place] [address] Dr. Jayy Marquez Urea nitrogen/Creatinine [Mass ratio] 15.6 mg/mg Normal [facility] Comment on above: Performed By: #### C YTO #### [facility] [address] [place] [address] Dr. Jayy Marquez RESPIRATORY PANEL PLUSon Adenovirus Not detected Normal NOT DETECTED [facility] Comment on above: Performed By: #### C VDAGS #### [facility] [address] [place] [address] Dr. Jayy King. Parapertusis Not detected Normal NOT DETECTED [facility] Comment on above: Performed By: #### C VDAGS #### [facility] [address] [place] [address] Dr. Jayy King. Pertussis Not detected Normal NOT DETECTED [facility] Comment on above: Performed By: #### C VDAGS #### [facility] [address] [place] [address] Dr. Jayy Marquez Chlamydia Pneumoniae Not detected Normal NOT DETECTED [facility] Comment on above: Performed By: #### C VDAGS #### [facility] [address] [place] [address] Dr. Jayy Marquez Coronavirus 229E Not detected Normal NOT DETECTED [facility] Comment on above: Performed By: #### C VDAGS #### [facility] [address] [place] [address] Dr. Jayy Marquez Coronavirus HKU1 Not detected Normal NOT DETECTED [facility] Comment on above: Performed By: #### C VDAGS #### [facility] [address] [place] [address] Dr. Jayy Marquez Coronavirus NL63 Not detected Normal NOT DETECTED [facility] Comment on above: Performed By: #### C VDAGS #### [facility] [address] [place] [address] Dr. Jayy Marquez Coronavirus OC43 Not detected Normal NOT DETECTED [facility] Comment on above: Performed By: #### C VDAGS #### [facility] [address] [place] [address] Dr. Jayy Marquez Influenza A H1 Not detected Normal NOT DETECTED [facility] Comment on above: Performed By: #### C VDAGS #### [facility] [address] [address] [address] Jayy Marquez Influenza A H1 2009 Not detected Normal NOT DETECTED [facility] Comment on above: Performed By: #### C VDAGS #### [facility] [address] [address] [address] Jayy Marquez Influenza A H3 Not detected Normal NOT DETECTED [facility] Comment on above: Performed By: #### C VDAGS #### [facility] [address] [address] [address] Jayy Marquez Influenza B Not detected Normal NOT DETECTED [facility] Comment on above: Performed By: #### C VDAGS #### [facility] [address] [address] [address] Jayy Marquez Metapneumovirus Not detected Normal NOT DETECTED [facility] Comment on above: Performed By: #### C VDAGS #### [facility] [address] [address] [address] Jayy Marquez Mycoplas. Pneumoniae Not detected Normal NOT DETECTED [facility] Comment on above: Performed By: #### C VDAGS #### [facility] [address] [address] [address] Jayy Marquez Parainfluenza 1 Not detected Normal NOT DETECTED [facility] Comment on above: Performed By: #### C VDAGS #### [facility] [address] [address] [address] Jayy Marquez Parainfluenza 2 Not detected Normal NOT DETECTED [facility] Comment on above: Performed By: #### C VDAGS #### [facility] [address] [address] [address] Jayy Marquez Parainfluenza 3 Not detected Normal NOT DETECTED [facility] Comment on above: Performed By: #### C VDAGS #### [facility] [address] [address] [address] Jayy Marquez Parainfluenza 4 Not detected Normal NOT DETECTED [facility] Comment on above: Performed By: #### C VDAGS #### [facility] [address] [place] [address] Dr. Jayy Marquez Rhino/Enterovirus Not detected Normal NOT DETECTED [facility] Comment on above: Performed By: #### C VDAGS #### [facility] [address] [place] [address] Dr. Jayy Marquez RP2 Header 1 RESPIRATORY PANEL: VIRUSES Normal [facility] Comment on above: Performed By: #### C VDAGS #### [facility] [address] [place] [address] Dr. Jayy Marquez RP2 Header 2 RESPIRATORY PANEL: BACTERIA Normal [facility] Comment on above: Performed By: #### C VDAGS #### [facility] [address] [place] [address] Dr. Jayy Marquez RSV Not detected Normal NOT DETECTED [facility] Comment on above: Performed By: #### C VDAGS #### [facility] [address] [place] [address] Dr. Jayy Marquez SARS-CoV-2 (COVID-19) RNA SILVINO+probe Ql (Unsp spec) Not detected Normal NOT DETECTED [facility] Comment on above: Performed By: #### C VDAGS #### [facility] [address] [place] [address] Dr. Jayy Marquez SYMPTOMATIC COVID-19 ANTIGEN on 09-22-2022 EUA Statement SEE BELOW Normal [facility] Comment on above: Result Comment: This test [...] sooner. Performed By: #### C VDAGS #### [facility] [address] [place], [place] [address] Dr. Jayy Marquez SARS-CoV-2 (COVID-19) RNA SILVINO+probe Ql (Unsp spec) Negative Normal NEGATIVE [facility] Comment on above: Performed By: #### C VDAGS #### [facility] [address] [place], [place] [address] Dr. Jayy Marquez TROPONIN, HIGH SENSITIVITYon 09-22-2022 HSTROP 12.9 pg/mL Normal 4.0-51.3 [facility] Comment on above: Result Comment: CUT- OFF POINTS HAVE BEEN ESTABLISHED BASED ON THE FOURTH UNIVERSAL DEFINITIONS OF MYOCARDIAL INFARCTION. THE UPPER REFERENCE LIMIT (URL) OF TROPONIN, DEFINED THE 99TH PERCENTILE OF cTnI DISTRIBUTION IN A REFERENCE POPULATION, HAS BEEN CONFIRMED THE DECISION THRESHOLD FOR SC DIAGNOSIS. Performed By: #### B MP, BNP, HSTROPN #### [facility] [address] [place], [place] [address] Dr. Jayy Marquez XR CHEST 1 Von [...] ARIANNA CEVALLOS Date: 2022-09-22 00:51 Normal [facility] CT CHEST WO CONon 09-01-2022 CT [...] by: HANDY KEATING Date: 2022-09-01 15:28 Normal [facility] ACID FAST SMEAR AND CXon Acid Fast Culture Negative Normal [facility] Comment on above: Result Comment: No a goyo fast bacilli isolated after 6 weeks. Performed By: #### A FB #### [facility] [address] [place] [address] Dr. Jayy Marquez Performed By: #### C VDAGS #### [facility] [address] [place] [address] Dr. Jayy Marquez Acid Fast Smear Negative Normal [facility] Comment on above: Performed By: #### A FB #### [facility] [address] [place] [address] Dr. Jayy Marquez Performed By: #### C VDAGS #### [facility] [address] [place] [address] Dr. Jayy Marquez AF[employer] Specimen Processing Concentration Normal [facility] Comment on above: Performed By: #### A FB #### [facility] [address] [place] [address] Dr. Jayy Marquez Performed By: #### C VDAGS #### [facility] [address] [place] [address] Dr. Jayy Marquez FUNGAL CULTUREon 04-23-2022 Fungus (Mycology) Culture Final report Normal [facility] Comment on above: Performed By: #### C XFUN #### [facility] [address] [place] [address] Dr. Jayy Marquez Performed By: #### C VDAGS #### [facility] [address] [place] [address] Dr. Jayy Marquez Fungus Stain Final report Normal [facility] Comment on above: Performed By: #### C XFUN #### [facility] [address] [place] [address] Dr. Jayy Marquez Performed By: #### C VDAGS #### [facility] [address] [place] [address] Dr. Jayy Marquez Result 1 Comment Normal [facility] Comment on above: Result Comment: TANYA/ Calcofluor preparation: no fungus observed. Performed By: #### C XFUN #### [facility] [address] [place] [address] Dr. Jayy Marquez Result Comment: No y east or mold isolated after 4 weeks. Performed By: #### C VDAGS #### [facility] [address] [place] [address] Dr. Jayy Marquez CULTURE OTHERon 03-26-2022 CULTURE OTHER Isolate 1 Pseudomonas aeruginosa Light growth of Isolate 2 Moraxella (Branhamella) catarrhalis Moderate growth of Isolate 3 Streptococcus agalactiae Light growth of ORGANISM 1 Pseudomonas aeruginosa ANTIBIOTIC M.I.C RX STATUS Piperacillin/Tazobact am <=4 S F Ceftazidime <=1 S F [...] 0.5 S F Tetracycline >=16 R F Normal [facility] Comment on above: Performed By: #### C YTO #### [facility] [address] [place] [address] Dr. Jayy Marquez CULTURE OTHERon 03-25-2022 CULTURE OTHER Isolate 1 Pseudomonas aeruginosa Moderate growth of Isolate 2 Moraxella (Branhamella) catarrhalis Moderate growth of ORGANISM 1 Pseudomonas aeruginosa ANTIBIOTIC M.I.C RX STATUS Piperacillin/Tazobact am <=4 S F Ceftazidime <=1 S F Imipenem <=0.25 S F Amikacin 8 S F Gentamicin 4 S F Tobramycin <=1 S F Ciprofloxacin <=0.25 S F Levofloxacin 0.25 S F Normal [facility] Comment on above: Performed By: #### C YTO #### [facility] [address] [place] [address] Dr. Jayy Marquez CYTOLOGYon 03-23-2022 SENT TO REF LAB 03/23/2022 [facility] Comment on above: Performed By: #### C YTO #### [facility] [address] [place] [address] Dr. Jayy Marquez GRAM STAINon 03-23-2022 DIPHTHEROIDS Normal [facility] Comment on above: Performed By: #### C VDAGS #### [facility] [address] [place] [address] Dr. Jayy Marquez EPITHELIALS Normal [facility] Comment on above: Performed By: #### C VDAGS #### [facility] [address] [place] [address] Dr. Jayy Marquez FUNGAL ELEMENTS Normal [facility] Comment on above: Performed By: #### C VDAGS #### [facility] [address] [place] [address] Dr. Jayy AMADOR NEG BACILLI FEW [facility] Comment on above: Performed By: #### C VDAGS #### [facility] [address] [place] [address] Dr. Jayy AMADOR NEG DIPPLOCOCCI [facility] Comment on above: Performed By: #### C VDAGS #### [facility] [address] [address] [address] Jayy Marquez GRAM POS BACILLI Normal [facility] Comment on above: Performed By: #### C VDAGS #### [facility] [address] [address] [address] Jayy Marquez GRAM POSITIVE COCCI FEW Normal [facility] Comment on above: Performed By: #### C VDAGS #### [facility] [address] [address] [address] Jayy Marquez GRAM STAIN SOURCE Rt Middle Lobe Lavage Normal [facility] Comment on above: Performed By: #### C VDAGS #### [facility] [address] [address] [address] Jayy Marquez GRAM STAIN SOURCE Lingula Lt Upper Lob e Lavage Normal [facility] Comment on above: Performed By: #### C VDAGS #### [facility] [address] [address] [address] Jayy Marquez GS_DIPTH Normal [facility] Comment on above: Performed By: #### C VDAGS #### [facility] [address] [address] [address] Jayy Marquez WBC MANY Normal [facility] Comment on above: Performed By: #### C VDAGS #### [facility] [address] [address] [address] Jayy Marquez WBC MODERATE Normal [facility] Comment on above: Performed By: #### C VDAGS #### [facility] [address] [place] [address] Dr. Jayy Marquez Covid-19 PCR (CVDTB)on 02-25 SARS-CoV-2 (COVID-19) RNA SILVINO+probe Ql (Unsp spec) Not detected Normal NOT DETECTED [facility] Comment on above: Result Comment: This test is not yet approved or cleared by the [place] FDA. When there are no FDA-approved or cleared tests available, and other criteria are met, FDA can make tests available under an emergency access mechanism called an Emergency Use Authorization (EUA). The EUA for this test is supported by the [employer] Supervisor of Health and Human Service's (HHS's) declaration [...] consistent with SARS-CoV-2. Performed By: #### C O #### [facility] [address] [place] [address] LUNG CANCER SCREENINGon [...] recommended to document change. Electronically authenticated by: HANDY KEATING Date: 2022-03-04 16:14 Normal [facility] CBC AUTO DIFFon 10-30-2021 BASO # 0.0 103/ul Normal 0.0-0.1 [facility] Comment on above: Performed By: #### C VDAGS #### [facility] [address] [address] [address] Jayy Marquez Basophils/100 WBC (Bld) 0.7 % Normal 0.2-2.0 [facility] Comment on above: Performed By: #### C VDAGS #### [facility] [address] [address] [address] Jayy Marquez EO # 0.2 103/ul Normal 0.0-0.7 [facility] Comment on above: Performed By: #### C VDAGS #### [facility] [address] [address] [address] Jayy Marquez Eosinophils/100 WBC (Bld) 2.6 % Normal 0.9-7.0 [facility] Comment on above: Performed By: #### C VDAGS #### [facility] [address] [address] [address] Jayy Marquez Erythrocyte distribution width (RBC) [Ratio] 14.7 % Normal 11.0-15.0 [facility] Comment on above: Performed By: #### C VDAGS #### [facility] [address] [address] [address] Jayy Marquez Hematocrit (Bld) [Volume fraction] 48.9 % Critically high 36.0-48.0 [facility] Comment on above: Performed By: #### C VDAGS #### [facility] [address] [address] [address] Jayy Marquez Hemoglobin (Bld) [Mass/Vol] 15.5 g/dL Normal 12.0-16.0 [facility] Comment on above: Performed By: #### C VDAGS #### [facility] [address] [place] [address] Dr. Jyay Marquez IG # 0.01 10e3/ul Normal 0.00-0.03 [facility] Comment on above: Performed By: #### C VDAGS #### [facility] [address] [place] [address] Dr. Jayy Marquez IG % 0.2 % Normal 0.0-0.5 [facility] Comment on above: Performed By: #### C VDAGS #### [facility] [address] [place] [address] Dr. Jayy Marquez LYMPH # 1.6 103/ul Normal 1.2-3.8 [facility] Comment on above: Performed By: #### C VDAGS #### [facility] [address] [place] [address] Dr. Jayy Marquez Lymphocytes/100 WBC (Bld) 26.0 % Normal 20.5-60.0 [facility] Comment on above: Performed By: #### C VDAGS #### [facility] [address] [place] [address] Dr. Jayy Marquez MANUAL DIFF REQ NO Normal [facility] Comment on above: Performed By: #### C VDAGS #### [facility] [address] [place] [address] Dr. Jayy Marquez MCH (RBC) [Entitic mass] 31.5 pg Normal 26.7-34.0 [facility] Comment on above: Performed By: #### C VDAGS #### [facility] [address] [place] [address] Dr. Jayy Marquez MCHC (RBC) [Mass/Vol] 31.7 g/dL Normal 29.9-35.2 [facility] Comment on above: Performed By: #### C VDAGS #### [facility] [address] [place] [address] Dr. Jayy Marquez MCV (RBC) [Entitic vol] 99.4 fL Critically high 81.0-99.0 [facility] Comment on above: Performed By: #### C VDAGS #### [facility] [address] [place] [address] Dr. Jayy Marquez MONO # 0.8 103/ul Normal 0.3-0.8 [facility] Comment on above: Performed By: #### C VDAGS #### [facility] [address] [place] [address] Dr. Jayy Marquez Monocytes/100 WBC (Bld) 12.4 % Critically high 1.7-12.0 [facility] Comment on above: Performed By: #### C VDAGS #### [facility] [address] [place] [address] Dr. Jayy Marquez NEUT # 3.6 103/ul Normal 1.4-6.5 [facility] Comment on above: Performed By: #### C VDAGS #### [facility] [address] [place] [address] Dr. Jayy Marquez Neutrophils/100 WBC (Bld) 58.1 % Normal 43.0-75.0 [facility] Comment on above: Performed By: #### C VDAGS #### [facility] [address] [place] [address] Dr. Jayy Marquez Platelet mean volume (Bld) [Entitic vol] 10.1 fL Normal 9.5-13.5 [facility] Comment on above: Performed By: #### C VDAGS #### [facility] [address] [place] [address] Dr. Jayy Marquez PLT 234 103/ul Normal 150-450 [facility] Comment on above: Performed By: #### C VDAGS #### [facility] [address] [place] [address] Dr. Jayy Marquez RBC 4.92 106/ul Normal 4.20-5.40 [facility] Comment on above: Performed By: #### C VDAGS #### [facility] [address] [place] [address] Dr. Jayy Marquez WBC 6.2 103/ul Normal 4.0-11.0 [facility] Comment on above: Performed By: #### C VDAGS #### [facility] [address] [place] [address] Dr. Jayy Marquez FREE T3on 10-30-2021 FREE T3 2.73 pg/mlL Normal 2.18-3.98 [facility] Comment on above: Performed By: #### C VDAGS #### [facility] [address] [place] [address] Dr. Jayy Marquez FREE T4on 10-30-2021 Free T4 [Mass/Vol] 1.25 ng/dL Normal 0.76-1.46 [facility] Comment on above: Performed By: #### F T4 #### [facility] [address] [place] [address] Dr. Jayy Marquez PROF CHEM 8 (BAS METB)on Anion gap [Moles/Vol] 8.8 mmol/L Normal [facility] Comment on above: Performed By: #### C VDAGS #### [facility] [address] [place] [address] Dr. Jayy Marquez Calcium [Mass/Vol] 9.4 mg/dL Normal 8.5-10.1 [facility] Comment on above: Performed By: #### C VDAGS #### [facility] [address] [place] [address] Dr. Jayy Marquez Chloride [Moles/Vol] 104 mmol/L Normal 98-107 [facility] Comment on above: Performed By: #### C VDAGS #### [facility] [address] [place] [address] Dr. Jayy Marquez CO2 [Moles/Vol] 29.4 mmol/L Normal 21.0-32.0 [facility] Comment on above: Performed By: #### C VDAGS #### [facility] [address] [place] [address] Dr. Jayy Marquez Creatinine [Mass/Vol] 0.74 mg/dL Normal 0.55-1.02 [facility] Comment on above: Performed By: #### C VDAGS #### [facility] [address] [address] [address] Jayy Marquez EGFR-AF KOSOVAN >60 Normal >=60 [facility] Comment on above: Performed By: #### C VDAGS #### [facility] [address] [address] [address] Jayy Marquez EGFR-NON AF KOSOVAN >60 Normal >=60 [facility] Comment on above: Performed By: #### C VDAGS #### [facility] [address] [address] [address] Jayy Marquez Glucose [Mass/Vol] 108 mg/dL Critically high 74-106 [facility] Comment on above: Performed By: #### C VDAGS #### [facility] [address] [place] [address] Dr. Jayy Marquez Potassium [Moles/Vol] 4.2 mmol/L Normal 3.5-5.1 [facility] Comment on above: Performed By: #### C VDAGS #### [facility] [address] [address] [address] Jayy Marquez Sodium [Moles/Vol] 138 mmol/L Normal 136-145 [facility] Comment on above: Performed By: #### C VDAGS #### [facility] [address] [address] [address] Jayy Marquez Urea nitrogen [Mass/Vol] 16.0 mg/dL Normal 7.0-18.0 [facility] Comment on above: Performed By: #### C VDAGS #### [facility] [address] [address] [address] Jayy Marquez Urea nitrogen/Creatinine [Mass ratio] 21.6 mg/mg Normal [facility] Comment on above: Performed By: #### C VDAGS #### [facility] [address] [address] [address] Jayy Marquez SGOTon 10-30-2021 AST [Catalytic activity/Vol] 11 U/L Critically low 15-37 [facility] Comment on above: Performed By: #### B MP #### [facility] [address] [place], [place] [address] Dr. Jayy Marquez SGPTon 10-30-2021 ALT [Catalytic activity/Vol] 22 U/L Normal 14-59 [facility] Comment on above: Performed By: #### C VDAGS #### [facility] [address] [place], [place] [address] Dr. Jayy Marquez TSHon 10-30-2021 TSH 1.593 uIU/mL Normal 0.358-3.740 [facility] Comment on above: Performed By: #### B MP #### [facility] [address] [place], [place] [address] LUNG SCREENING (ANNUAL)on 09-26-2019 Patient Name: ERICA CHACON ---CT--- Exam Date/Time 09/26/2019 10:55:[address] Low Dose Lung Scrn Ordering Physician RAVINDRA THURMAN TAMMY KAY Accession Number [id number] CPT4 Codes G0297 (CT Low Dose Lung [...] ROBERT Transcribed Date and Time: 09/26/2019 1:18 [facility], Juan Dill Incoming Radiology Results From [facility] - 09/26/2019 1:28 PM EDT Patient Name: ERICA CHACON ---CT--- Exam Date/Time 09/26/2019 10:55:[address] Low Dose Lung Scrn Ordering Physician RAVINDRA THURMAN, CHYNA PERLA Accession Number [id number] CPT4 Codes G0297 (CT Low Dose Lung [...] Dictated: 09/26/2019 1:18 pm Dictating Physician: MD TESFAYE, RICCARDO CALHOUN Signed Date and Time: 09/26/2019 1:27 pm Signed by: MD CARLIN YUN ROBERT Transcribed Date and Time: 09/26/2019 1:18 [place], [place] CT Low Dose Lung Screeningon 09-26-2019 CT Low Dose Lung Screening Patient Name: ERICA CHACON CT Exam Date/Time 09/26/2019 10:55:[address] Low Dose Lung Scrn Ordering Physician RAVINDRA THURMAN TAMMY KAY Accession Number [id number] CPT4 Codes G0297 (CT Low Dose Lung [...] Dictated: 09/26/2019 1:18 pm Dictating Physician: MD TESFAYE, RICCARDO CALHOUN Signed Date and Time: 09/26/2019 1:27 pm Signed by: MD TESFAYE, RICCARDO CALHOUN Transcribed Date and Time: 09/26/2019 1:18 Normal [facility] OBSOLETEon 11-13-2016 OBSOLETE Refill (ENDMED) ----ERICA CHACON ([id number]) 1955 [facility] Time Provider Department11/13/16 CHARLOTTE RATLIFF During your visit today, we recorded the following information about you:Arabella Frey MA 11/13/2016 8:17 AM SignedPatient has not been seen in over a year.Allergies As of Date: 11/13/2016(No Known Allergies)Date Reviewed: 07/03/2015Reviewed by: Jenny Arias Ma - Fully AssessedReason for Visit: Refill Request [94]Order(s):levothyr oxine (SYNTHROID) 112 mcg tabletTAKE 1 TABLET DAILYDisp: [...] by JENNY ARIAS MA on 11/16/16 Normal [facility] Colonoscopy w/ or w/o biopsy on 01-12-2013 Colon polyps Internal hemorrhoids Normal appearing terminal ileum and colonic mucosa, s/p random biopsies [facility] This order was created through External Result Entry [facility] Vital Signs Date Time Vital Sign Value Performing Clinician Manpreet strickland 04-21-2023 14:10-0500 Blood Pressure Location Kale CYNDI [facility] 04-21-2023 14:10-0500 Diastolic blood pressure 78 mm[Hg] Kale NILL [facility] 04-21-2023 14:10-0500 Heart rate 72 /min Kale ESTEFANÍAL [facility] 04-21-2023 14:10-0500 Respiratory rate 16 /min Kale JOSÉL [facility] 04-21-2023 14:10-0500 Systolic blood pressure 128 mm[Hg] Kale NILL [facility] Encounters Encounter Date Encounter Type Care Provider Facility Start: 06-04-2023 End: 06-05-2023 ambulatory Kale MARINELLI Facility: [facility] Start: 05-12-2023 End: 05-13-2023 ambulatory Kale MARINELLI Facility:CD:[id number] Start: 04-21-2023 End: 12-28-2023 ambulatory Kale MARINELLI Facility:[facility] Start: 04-21-2023 End: 04-21-2023 Patient encounter procedure Kale MARINELLI General Surgery Cynid/Anjali Nam Start: 04-02-2023 ambulatory Kale MARINELLI Facility:[facility] Start: 04-01-2023 End: 04-01-2023 ambulatory NICO HOPKINS Not Available Start: 09-22-2022 Evaluation and manag ement of inpatient DR DAYAMI FULLER . Facility:[facility] Start: 09-01-2022 End: 09-02-[address] HANDY KEATING Facility:[facility] Start: 03-23-2022 End: 03-23-2022 ambulatory ALIS HEAD . Facility:[facility] Start: 03-23-2022 Encounter for preprocedural cardiovascular examination ALIS HEAD . [facility] Start: 03-23-2022 Encounter for preprocedural laboratory examination ALIS HEAD . [facility] Start: 03-17-2022 End: 03-18-2022 ambulatory ALIS HEAD . Facility:[facility] Start: 03-17-2022 End: 03-18-2022 Encounter for preprocedural laboratory examination ALIS HEAD . Facility:[facility] Start: 03-04-2022 End: 03-05-[address] HANDY KEATING Facility:[facility] Start: 10-30-2021 End: 10-31-[address] NICO HOPKINS Facility:[facility] Start: 09-26-2019 End: 09-26-2019 Subsequent hospital visit by physician Chyna Thurman Work Phone: [facility] Comment on above: Cigarette nicotine d ependence with nicotine-induced disorder Start: 09-08-2018 Patient encounter procedure Ezra Nichols [facility] Start: 04-04-2018 Patient encounter procedure Eddi Zunigathelmarose [facility] Start: 03-08-2018 Patient encounter procedure MONICA FIGUEROA [facility] Start: 03-07-2018 Patient encounter procedure MONICA NGAFA [facility] Start: 02-22-2018 Patient encounter procedure Ottoniel Fuchs [facility] Start: 09-14-2017 Patient encounter procedure MONICA FIGUEROA [facility] Start: 08-14-2017 Emergency department patient visit MARTIN DOZIER [facility] Start: 08-13-2017 Patient encounter procedure Ottoniel Fuchs [facility] Start: 01-12-2013 Conversion Encounter Ottoniel jackson MD Work Phone: [facility] Start: 01-12-2013 Legacy Encounter Ottoniel osborn MD Work Phone: [facility] Procedures Date Procedure Procedure Detail Performing Clinician Start: 09-26-2019 Ldct for lung ca screen Chyna Thurman Work Phone: Start: 01-12-2013 COLONOSCOPY W/ OR W/ O BIOPSY Ottoniel Fuchs MD Work Phone: Bronchoscopy Kale NILL section Kale NIL L Colonoscopy Kale NILL Extraction of cataract Ramon twila NILL Laparoscopy Kale NILL Ligation of fallopian tube M ichterrie NILL Thyroidectomy Kale NILL Plan of Treatment Date Care Activity Detail Author Start: 12-24-2025 DTaP/Tdap/Td vaccine (2 - Td) DTaP/Tdap/Td vaccine (2 - Td) [place] Start: 12-30-2023 Lipid panel Lipid screen [place], [place] Start: 02-11-2023 Screening for malign ant neoplasm of cervix Cervical cancer screen [place] Start: 01-12-2023 Screening for malign ant neoplasm of colon Colon cancer screen colonoscopy [place] Start: 02-23-2020 Screening for malign ant neoplasm of breast Breast cancer screen [place] Start: 02-13-2020 Pneumococcal 65+ yea rs Vaccine (1 of 1 - PPSV23) Pneumococcal 65+ years Vaccine (1 of 1 - PPSV23) [place] Start: 02-08-2020 End: 02-08-2020 Office Visit 02/08/2020 Office Visit Family Medicine Ottoniel Fuchs MD [address] [facility] [address] [place] [address] [facility] Start: 12-30-2019 Creatinine measurement Creatinine mo nitoring [place] Start: 12-30-2019 HbA1c (Bld) [Mass fraction] A1C test (Diabetic or Prediabetic) [place] Start: 12-30-2019 Potassium monitoring Potassium monit oring [place] Start: 12-30-2019 TSH Qn TSH testing [place], [place] Start: 09-09-2019 Screening for malign ant neoplasm of lung Low dose CT lung screening [place] Start: 08-09-2019 Annual Wellness Visi t (AWV) Annual Wellness Visit (AWV) [place] Immunizations Immunization Date Immunization Notes Care Provider Fa cili 03-08-2023 influenza virus vacc ine, unspecified formulation Kale MARINELLI [facility] 02-04-2021 SARS-CoV-2 (COVID-19 ) Ad26 vaccine, recombinant Kale MARINELLI [facility] Comment on above: Result Comment: 2022: TPV65 03-30-2019 Seasonal, quadrivale nt, recombinant, injectable influenza vaccine, preservative free [facility] [place] 12-29-2018 zoster vaccine recombinant [facility] 02-11-2018 influenza virus vacc ine, unspecified formulation [facility] [place] 02-11-2018 influenza, injectabl e, quadrivalent, contains preservative [facility] 02-11-2018 zoster vaccine recombinant [facility] 12-25-2015 tetanus toxoid, redu florentino diphtheria toxoid, and acellular pertussis vaccine, adsorbed [facility] 02-12-2015 pneumococcal polysaccharide vaccine, 23 valent [facility] 02-12-2015 zoster vaccine, live Chyna [place], [place] Payers Date Payer Category Payer Unknown [id number] 2019 Medicare MEDICARE MEDICAR E PART A AND B xxxxxxxxxxx 2019-Present [phone] [place] [address] xxxxxxxxxxx [id number] 2019 Private Health Insurance [employer]ETROBERTO [employer]UIR[employer] S[employer]IOR MEDICARE SUPP xxxxxxxxxx 2019-Present [phone] [address] [place] [address] xxxxxxxxxx [id number] 1960 Unknown [id number] [id number] 1960 Unknown [id number] 2.840.1.978869.3.579.2 .8 1959 Medicare [id number] 1959 Private Health Insurance CLI [id number] 1954 Unknown [id number] 2.840.1.887471.3.579.2 .1954 Unknown [id number] ..[id number] 1954 Unknown [id number] 2.840.1.269761.3.579.2 .1954 Unknown [id number] 2.16840.1.575043.3.579.2 1954 Unknown [id number] 2.840.1.855085.3.579.2 .1954 Unknown [id number] 2.840.1.073029.3.579.2 1954 Unknown [id number] 2.16.840.1.991450.3.579.2 .668 1954 Unknown [id number] 2.16.840.1.273842.3.579.2 .593 1954 Unknown [id number] 2.16.840.1.370477.3.579.2 .593 1954 Unknown [id number] 2.16.840.1.957943.3.579.2 .593 1954 Unknown [id number] 2.16.840.1.662330.3.579.2 .593 1954 Unknown [id number] 2.16.840.1.232803.3.579.2 .593 1954 Unknown [id number] 2.16.840.1.627261.3.579.2 .593 1954 Unknown [id number] 2.16.840.1.192950.3.579.2 .1259 1954 Unknown [id number] 2.16.840.1.862846.3.579.2 .727 1954 Unknown [id number] 2.16.840.1.983297.3.579.2 .727 1954 Unknown [id number] 2.16.840.1.431082.3.579.2 .727 Unknown Social History Date Type Detail Facility Start: 08-02-1971 Tobacco smoking stat [facility] Current every day smoker [place] Start: 08-02-1971 History of tobacco use Cigarette Smo ker [place] Start: 08-09-2019 Cigarettes smoked current (pack per day) - Reported [place] Start: 08-09-2019 Alcohol intake Current drinke r of alcohol (finding) [place] Start: 12-29-2018 History SDOH Alcohol Frequency 4 [place] Start: 12-29-2018 History SDOH Alcohol Std Drinks 1 [place] Start: 12-29-2018 History SDOH Social Connections Get Together 2 [place] Start: 12-29-2018 History SDOH Social Connections Living 3 [place] Start: 12-29-2018 History SDOH Physica l Activity DPW 0 [place] Start: 12-29-2018 History SDOH Financial 5 [place] Start: 08-16-2017 Tobacco Comment Less than a pack a d ay [place] Start: 08-16-2017 Alcohol Comment Occasionally [place], [place] Start: 1955 Sex Assigned At Not on file [place] Tobacco smoking stat [facility] Tobacco smoking consumption unknown [facility] Gender identity Not on file [facility] Start: 04-21-2023 Tobacco smoking status Ex-smoker (fi nding) General Surgery [facility] Tobacco smoking status Never Gener al Surgery [facility] Goals Date Patient Goal Desired Activity /State Comment on above: Quit Smoking. Barriers: lack of motivation Plan for overcoming my barriers: Will discuss plan with provider. Confidence: 12/03 Anticipated Goal Completion Date: 1 year. Functional Status Date Assessment Result Facility 04-21-2023 Functional Status N/A General [facility] Clinical Note 04-21-2023 Note Date & Type [...] 1 puff(s), Inhalation, Daily Flonase 0.05 mg/inh [place], 100 mcg, Nasal, Daily levothyroxine 112 mcg [...] of lung: Brother. (more content not included)... [facility] Comment on above: Result Comment: Elec tronically Signed By: CYNDI ALCANTAR, Kale Thurman\Date and Time Signed: 04/21/23 14:46 EST Evaluation + Plan note Note Date & Type Note Facility Evaluation + Plan note No data available for this section [facility] Discharge instructions Note Date & Type Note Facility Hospital Discharge instructions No data available for this section General Surgery [facility] Progress note Note Date & Type Note Facility Progress note No data available for this section General Surgery [facility] Summary Purpose Family History No Family History Records FoundNo Family History Records FoundNo Family History Records FoundNo Family History Records FoundNo Family History Records FoundNo Family History Records Found No data available for this section No Family History Records Found Advance Directives No Advanced Directives Records FoundDocuments on File Type Date Recorded 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 Advance Directives and Living Will 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 of 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 Reason for Referral Status Reason Specialty Diagnoses / Procedures Referre d By Contact Referred To Contact [facility] Diagnoses Cigarette nicotine dependence with nicotine-induced disorder Procedures CT LUNG SCREENING (ANNUAL) Chyna Thurman, FABY - 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 [address] [address] Assessments Diagnosis Cigarette nicotine dependence with nicotine-induced disorder Unspecified drug-induced mental disorder Additional Source Comments INFORMATION SOURCE (unrecogn ized section and content) DATE CREATED AUTHOR 10/20/2017 [facility] DATE CREATED AUTHOR AUTHOR'S ORGANIZ ATION 04/04/2018 [facility] DATE CREATED AUTHOR AUTHOR'S ORGANIZ ATION 04/09/2018 [facility] DATE CREATED AUTHOR AUTHOR'S ORGANIZ ATION 09/26/2019 [facility] DATE CREATED AUTHOR AUTHOR'S ORGANIZ ATION 10/02/2022 [facility] DATE CREATED AUTHOR AUTHOR'S ORGANIZ ATION 04/03/2023 [facility] EPIC DATE CREATED AUTHOR AUTHOR'S ORGANIZ ATION 06/15/2023 [facility] Care Teams (unrecognized sec tion and content) 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 [facility] Narr8 [facility]. provides no warranty or guarantee of the accuracy or completeness of information in this document.
[2023-07-22 08:39] VITALS: O2SAT 98
[2023-07-22 08:42] VITALS: PULSE 66
--- NOTE | 2023-07-22 08:42 | XR_ITS ---
[address] [address] Patient Name: ERICA CHACON MRN: [id number] date: 1955 Sex: F Assigned Patient Location: ER Current Patient Location: ED.MAIN Accession/Order Number: [id number] Exam Date: 07/22/2023 09:08 Report Date: 07/22/2023 09:35 At the request of: CORNELIO TEMPLETON Procedure: XR chest 1V EXAMINATION: XR chest 1V HISTORY: CP COMPARISON: 09/30/2022 TECHNIQUE: AP portable FINDINGS: LUNGS: Mild bibasilar opacities VASCULATURE: No increased pulmonary vasculature. PLEURA: No pneumothorax, effusion, or pleural thickening. CARDIAC: Mild cardiomegaly. MEDIASTINUM: No visible mass or adenopathy. BONES: No fracture or visible bone lesion. OTHER: Negative. XR/XR chest 1V IMPRESSION: Basilar atelectasis Electronically authenticated by: ARIANNA RANKIN Date: 07/22/2023 09:35
--- NOTE | 2023-07-22 08:42 | ECG_ITS ---
[facility] Test Date: 2023-07-22 Pat Name: ERICA CHACON Department: Room: - Gender: Female Documentation Spec: : 1955 Requested By: NICO HOPKINS Order Number: [id number] Reading MD: LILIYA ESPINOSA Measurements Intervals [place] Rate: 66 P: 44 [place]: 134 QRS: 73 QRSD: 78 T: 71 QT: 388 QTc: 402 Interpretive Statements 1100 Sinus rhythm 9110 normal ECG Compared to ECG 09/21/2022 23:21:44 Sinus tachycardia no longer present Electronically Signed On 07-22-2023 23:01:57 EDT by LILIYA ESPINOSA
--- NOTE | 2023-07-22 08:45 | ED_ITS ---
HPI - Chest Pain General Chief Complaint: Chest Pain Stated Complaint: ABDOMINAL PAIN Time Seen by Provider: 07/22/23 08:29 Source: patient Mode of arrival: walk-in Limitations: no limitations History of Present Illness HPI narrative: 67-year-old female presents for chest pain. It seems to start in her right thoracic back area and comes around towards the front in the lower rib region. No injury fever or unusual cough. She always has a cough because she is a former smoker. It has been nonproductive. No abdominal pain or vomiting. He states that initially she thought it was a pulled muscle but it did not get better so she came in to get checked. Related Data Home Medications ?Medication ?Instructions ?Recorded ?Confirmed albuterol sulfate 90 mcg/actuation 2 puff inhalation QID PRN 09/24/22 07/22/23 aerosol inhaler (ProAir HFA) shortness of breath or wheezing aspirin 81 mg chewable tablet 81 mg PO QDAY 09/24/22 07/22/23 (Aspirin Childrens) fluticasone furoate 100 1 inh inhalation Q24H 09/24/22 07/22/23 mcg-vilanterol 25 mcg/dose inhalation powder (Breo Ellipta) levothyroxine 112 mcg tablet 112 mcg PO .daily 09/24/22 07/22/23 (Synthroid) losartan 50 mg tablet 50 mg PO .daily 09/24/22 07/22/23 multivitamin 1 tab PO QDAY 09/24/22 07/22/23 soft lens rinse,store solution 04/29/23 04/29/23 Previous Rx's ?Medication ?Instructions ?Recorded amlodipine 5 mg tablet 5 mg PO QD #30 tabs 10/02/22 Allergies Allergy/AdvReac Type Severity Reaction Status Date / Time No Known Drug Allergies Allergy Verified 05/12/23 08:34 [facility] Medical History (Updated 07/22/23 @ 11:31 by Mariusz Lima MD) COPD (chronic obstructive pulmonary disease) ?J44.9 - Chronic obstructive pulmonary disease, unspecified (ICD-10) Normal colonoscopy Haemophilus influenzae infection ?A49.2 - Hemophilus influenzae infection, unspecified site (ICD-10) Acute respiratory acidosis ?J96.02 - Acute respiratory failure with hypercapnia (ICD-10) Acute exacerbation of bronchiectasis ?J47.1 - Bronchiectasis with (acute) exacerbation (ICD-10) Acute respiratory failure with hypoxia ?J96.01 - Acute respiratory failure with hypoxia (ICD-10) Surgical History (Updated 04/29/23 @ 13:10 by Imani Castellanos) H/O tubal ligation ?Z98.51 - Tubal ligation status (ICD-10) H/O thyroidectomy ?E89.0 - Postprocedural hypothyroidism (ICD-10) H/O laparoscopy ?Z98.890 - Other specified postprocedural states (ICD-10) Previous section ?Z98.891 - History of uterine scar from previous surgery (ICD-10) Cataract extraction status ?Z98.49 - Cataract extraction status, unspecified eye (ICD-10) History of bronchoscopy ?Z98.890 - Other specified postprocedural states (ICD-10) Family History (Updated 04/29/23 @ 13:18 by Imain Castellanos) Other Family history of COPD (chronic obstructive pulmonary disease) Family history of cancer Family history of diabetes mellitus Heart disease Hyperlipidemia Social History (Updated 04/29/23 @ 13:22 by Imani Castellanos) Within the past year, how often did you have a drink containing alcohol: 2-4 times a month Smoking status: Former smoker Non-prescribed substance use: denies use Previous occupational history: retired Highest level of school completed/degree received: high school graduate Exam Narrative Exam Narrative: Nurses note and vital signs reviewed and patient is not hypoxic. General: The patient appears well and in no apparent distress. Patient is resting comfortably on cart. Skin: Warm, dry, no pallor noted. There is no rash noted in the thoracic, chest, or abdominal areas Head: Normocephalic, atraumatic Eye: Normal conjunctiva, no drainage Ears, Nose, Mouth, and Throat: oral mucosa is moist. Nares patent. Cardiovascular: Regular Rate and Rhythm Respiratory: Patient is in no distress, no accessory muscle use, lungs are clear to auscultation, no wheezing, rales or rhonchi Back: Lumbar spine and thoracic spine nontender. She seems to have some palpable tenderness in the right thoracic region. No bruise or rash present. GI: Soft and nontender including the right upper quadrant Musculoskeletal: The patient has no evidence of calf tenderness, no pitting edema, symmetrical pulses noted bilaterally Neurological: A&O, normal speech Psychiatric: Cooperative Constitutional Vital Signs, click to edit/add: Last Vital Signs Temp 98.9 F 07/22/23 08:31 Pulse 62 07/22/23 10:00 BP 164/71 H 07/22/23 10:12 Pulse Ox 96 07/22/23 10:00 O2 Del Method Room Air 07/22/23 08:57 Course Vital Signs Vital signs: Vital Signs Temperature 98.9 F 07/22/23 08:31 Pulse Rate 73 07/22/23 08:31 Blood Pressure 160/80 H 07/22/23 08:31 Pulse Oximetry 97 07/22/23 08:31 Oxygen Delivery Method Room Air 07/22/23 08:31 Temperature 98.9 F 07/22/23 08:31 Pulse Rate 62 07/22/23 10:00 Blood Pressure 164/71 H 07/22/23 10:12 Pulse Oximetry 96 07/22/23 10:00 Oxygen Delivery Method Room Air 07/22/23 08:57 MDM - Chest Pain MDM Narrative Medical decision making narrative: Her workup including troponin and CAT scan of her chest is negative. No evidence of PE. She was cautioned that if she develops a rash that this could be a sign of zoster and she should seek medical attention at that point. None theless at this point there is no evidence of zoster and she will be discharged home. At this point my clinical impression is that she has muscular pain. Treatment diagnosis and follow-up were discussed thoroughly with the patient. Differential Diagnosis Differential diagnosis: Likely fracture of rib, pneumothorax, unstable angina pectoris, atypical chest pain, st elevation myocardial infarction, costochondritis and chest pain Lab Data Attestation: I reviewed the patient's lab results. Labs: Lab Results 07/22/23 07/22/23 Range/Units 08:50 10:12 WBC 5.1 (4.0-11.0) 10^3/uL RBC 4.73 (4.20-5.40) 10^6/uL Hgb 14.6 (12.0-16.0) g/dL Hct 45.1 (36.0-48.0) % MCV 95.3 (81.0-99.0) fL MCH 30.9 (26.7-34.0) pg MCHC 32.4 (29.9-35.2) g/dL RDW 13.2 (11.0-15.0) % Plt Count 254 (150-450) 10^3/uL MPV 9.4 L (9.5-13.5) fL Neut % (Auto) 59.4 (43.0-75.0) % Lymph % (Auto) 28.3 (20.5-60.0) % Lynn % (Auto) 9.1 (1.7-12.0) % Eos % (Auto) 2.4 (0.9-7.0) % Baso % (Auto) 0.6 (0.2-2.0) % Neut # (Auto) 3.0 (1.4-6.5) 10^3/uL Lymph # (Auto) 1.4 (1.2-3.8) 10^3/uL Lynn # (Auto) 0.5 (0.3-0.8) 10^3/uL Eos # (Auto) 0.1 (0.0-0.7) 10^3/uL Baso # (Auto) 0.0 (0.0-0.1) 10^3/uL Abs Immat Gran (auto) 0.01 (0.00-0.03) 10^3/uL Imm/Tot Granulo (auto) 0.2 (0.0-0.5) % D-Dimer 0.54 (<=0.59) mg/L FEU Sodium 140 (136-145) mmol/L Potassium 4.0 (3.5-5.1) mmol/L Chloride 103 (98-107) mmol/L Carbon Dioxide 26.4 (21.0-32.0) mmol/L Anion Gap 14.6 BUN 11.0 (7.0-18.0) mg/dL Creatinine 0.84 (0.55-1.02) mg/dL Est GFR ( Amer) >60 (>=60) Est GFR (Non-Af Amer) >60 (>=60) BUN/Creatinine Ratio 13.1 Glucose 146 H (74-106) mg/dL Calcium 9.3 (8.5-10.1) mg/dL Troponin I High Sens 6.4 (4.0-51.3) pg/mL Urine Color Lt. yellow (YELLOW) Urine Clarity Clear (CLEAR) Urine pH 6.5 (5.0-9.0) Ur Specific [place] 1.020 (1.005-1.025) Urine Protein Negative (NEG/TRACE) mg/dL Urine Glucose (UA) Negative (NEGATIVE) mg/dL Urine Ketones Negative (NEGATIVE) mg/dL Urine Occult Blood Negative (NEGATIVE) Urine Nitrite Negative (NEGATIVE) Urine Bilirubin Negative (NEGATIVE) Urine Urobilinogen 0.2 (0.2-1.0) EU/dL Ur Leukocyte Esterase Negative (NEGATIVE) Urine RBC 0-2 (0-2) #/HPF Urine WBC 0-2 A (NONE SEEN) #/HPF Ur Squamous Epith Cells Rare (NONE/RARE) #/LPF Urine Crystals None seen (None Seen) #/HPF Urine Bacteria None seen (NONE SEEN) #/HPF Urine Casts None seen (NONE SEEN) #/LPF Urine Mucus None seen (NONE SEEN) Imaging Data Chest x-ray: Radiologist's impression: ITS Impressions Chest X-Ray 07/22/23 08:42 IMPRESSION: Basilar atelectasis Electronically authenticated by: ARIANNA RANKIN Date: 07/22/2023 09:35 Chest CTA 07/22/23 09:52 IMPRESSION: No evidence of pulmonary embolus in the current study. Electronically authenticated by: CALLI ARCE Date: 07/22/2023 11:22 ECG Data Attestation: I personally reviewed and interpreted this ECG as follows: (EKG on my interpretation shows sinus rhythm with a rate of 66 and no acute change.) Heart Score History: Slightly/Non-Suspicious ECG: Normal Age: >65 years Risk Factors: 1 or 2 Risk Factors Troponin: <Normal Limit Total Heart Score Recommendations & Risks:: 3 Discharge Plan Discharge Stand Alone Forms: Portal Instructions Chief Complaint: Chest Pain Clinical Impression: Chest pain Patient Disposition: Home, Self-Care Time of Disposition Decision: 11:31 Condition: Good Mode of Transportation: Private Vehicle Prescriptions / Home Meds: No Action albuterol sulfate [ProAir HFA] 90 mcg/actuation HFA aerosol inhaler 2 puff inhalation QID PRN (Reason: shortness of breath or wheezing) fluticasone furoate-vilanterol [Breo Ellipta] 100-25 mcg/dose blister with device 1 inh INHALATION Q24H levothyroxine [Synthroid] 112 mcg tablet 112 mcg PO .daily losartan 50 mg tablet 50 mg PO .daily multivitamin Tablet 1 tab PO QDAY aspirin [Aspirin Childrens] 81 mg tablet,chewable 81 mg PO QDAY amlodipine 5 mg Tablet 5 mg PO QD Qty: 30 0RF (DME) soft lens rinse,store solution Aerosol,[place] See Rx Instructions .ROUTE Rx Instructions: As directed Print Language: Citizen Of [place] Instructions: Chest Pain (ED), Chest Wall Pain (ED) Referrals: Antonio Riggins MD [Primary Care Provider] - 1 week
[2023-07-22 08:57] VITALS: O2SAT 97
[2023-07-22 09:00] LABS: Basophils Percent Auto 0.6 % (0.2-2.0); Eosinophils Absolute Auto 0.1 10^3/uL (0.0-0.7); Eosinophils Percent Auto 2.4 % (0.9-7.0); Hematocrit 45.1 % (36.0-48.0); Hemoglobin 14.6 g/dL (12.0-16.0); Immature Granulocytes Abs Auto 0.01 10^3/uL (0.00-0.03); Immature Granulocytes Pct Auto 0.2 % (0.0-0.5); Lymphocytes Absolute Auto 1.4 10^3/uL (1.2-3.8); Lymphocytes Percent Auto 28.3 % (20.5-60.0); Mean Corpuscular HGB Conc 32.4 g/dL (29.9-35.2); Mean Corpuscular Hemoglobin 30.9 pg (26.7-34.0); Mean Corpuscular Volume 95.3 fL (81.0-99.0); Mean Platelet Volume 9.4 fL (9.5-13.5); Monocytes Absolute Auto 0.5 10^3/uL (0.3-0.8); Monocytes Percent Auto 9.1 % (1.7-12.0); Neutrophils Percent Auto 59.4 % (43.0-75.0); Platelet Count 254 10^3/uL (150-450); Red Blood Count 4.73 10^6/uL (4.20-5.40); Red Cell Distribution Width 13.2 % (11.0-15.0); White Blood Count 5.1 10^3/uL (4.0-11.0)
[2023-07-22] MEDS: KETOROLAC TROMETHAMINE 30 MG/ML VIAL IVP (09:16)
[2023-07-22 09:18] LABS: D Dimer 0.54 mg/L FEU (<=0.59)
[2023-07-22 09:20] LABS: Anion Gap 14.6; BUN Creatinine Ratio 13.1; Calcium 9.3 mg/dL (8.5-10.1); Carbon Dioxide 26.4 mmol/L (21.0-32.0); Chloride 103 mmol/L (98-107); Estimated GFR (African America >60 (>=60); Estimated GFR (Non-African Ame >60 (>=60); Glucose 146 mg/dL (74-106); Sodium 140 mmol/L (136-145); Troponin I High Sensitivity 6.4 pg/mL (4.0-51.3)
--- NOTE | 2023-07-22 09:52 | CT_ITS ---
The [address] [address] Patient Name: ERICA CHACON MRN: [id number] date: 1955 Sex: F Assigned Patient Location: ER Current Patient Location: ER Accession/Order Number: [id number] Exam Date: 07/22/2023 10:40 Report Date: 07/22/2023 11:22 At the request of: CORNELIO TEMPLETON Procedure: CT angio chest CT angio chest, 07/22/2023 10:40 AM EDT INDICATION: Right-sided pain, rule out PE COMPARISON: Prior CT of the chest dated 09/29/2022 TECHNIQUE: Axial low-dose images of 1 millimeters are obtained from the thoracic outlet with contrast . 3-D MIP images were obtained. Dose reduction techniques were achieved by using automated exposure control and/or adjustment of mA and/or kV according to patient size and/or use of iterative reconstruction technique. FINDINGS: No endoluminal filling defect within the main pulmonary arteries, lobar and lobular branches is noted. There is no obvious right ventricle strain. 6 mm solid nodule in the left lower lobe is stable (series 6 image 67). No definite new nodule is noted. Left lower lobe and lingular bronchiectasis is again noted. Mild paraseptal emphysematous changes are noted. There is mild dependent atelectasis. The central tracheobronchial tree is unremarkable. No mediastinal lymph node enlargement by size criteria is noted. The main pulmonary artery measures 2.8 cm at its bifurcation. No pleural effusion is noted. There is mild cardiomegaly with mild pericardial effusion. The visualized portions of the solid abdominal organs are unremarkable. Bone: There is no suspicious osteolytic or osteoblastic lesion. Bilateral breast prosthesis are noted. CT/CT angio chest IMPRESSION: No evidence of pulmonary embolus in the current study. Electronically authenticated by: CALLI ARCE Date: 07/22/2023 11:22
[2023-07-22 10:00] VITALS: PULSE 62; RESP 12; O2SAT 96
[2023-07-22 10:12] VITALS: BP 164/71
[2023-07-22 10:20] LABS: Bilirubin Urine NEGATIVE (NEGATIVE); Blood Urine NEGATIVE (NEGATIVE); Clarity Urine CLEAR (CLEAR); Color Urine LT. YELLOW (YELLOW); Glucose Urine UA NEGATIVE (NEGATIVE); Ketones Urine NEGATIVE (NEGATIVE); Leukocyte Esterase Urine NEGATIVE (NEGATIVE); Nitrite Urine NEGATIVE (NEGATIVE); Protein Urine NEGATIVE (NEG/TRACE); Urobilinogen Urine 0.2 EU/dL (0.2-1.0); pH Urine 6.5 (5.0-9.0)
[2023-07-22 10:33] LABS: Bacteria Urine NONE SEEN #/HPF (NONE SEEN); Crystals Seen? None Seen #/HPF (None Seen); Mucus Urine NONE SEEN (NONE SEEN); RBC Urine 0-2 #/HPF (0-2); Squamous Epithelial Cell Urine RARE #/LPF (NONE/RARE); WBC Urine 0-2 #/HPF (NONE SEEN)
[2023-07-22 10:34] LABS: Cast Seen? NONE SEEN #/LPF (NONE SEEN)
== END 2023-07-22 11:45 | disposition home or self-care (01) ==
PROVIDERS: Emergency Provider Emergency Medicine; PCP Family Medicine
DX: J44.9 Chronic obstructive pulmonary disease, unspecified (principal); E89.0 Postprocedural hypothyroidism; Z98.891 History of uterine scar from previous surgery; R07.9 Chest pain, unspecified; Z79.82 Long term (current) use of aspirin; Z79.899 Other long term (current) drug therapy; Z98.890 Other specified postprocedural states; Z98.49 Cataract extraction status, unspecified eye; Z98.51 Tubal ligation status; Z87.891 Personal history of nicotine dependence
CPT/HCPCS: 36415; 71045; 71275; 80048; 81001; 84484; 85025; 85378; 93005; 96374; 99285; Q9967

== ENCOUNTER 2024-01-31 08:48 | Outpatient (OUT) | payer MEDICARE, SELFPAY ==
--- NOTE | 2024-01-31 09:00 | RT_ITS ---
The [facility] Test Date: 2024-01-31 Pat Name: ERICA CHACON Department: Room: - Gender: Female [employer]er As[employer]er: : 1955 Requested By: Sukh Lovelace Order Number: [id number] Reading MD: Sukh Lovelace Interpretive Statements Pulmonary function testing was completed according to ATS criteria. Findings were considered accurate and reproducible. Both pre- and post-bronchodilator values utilized for spirometry. Spirometry (based on pre-bronchodilator values): -FEV1/FVC: Decreased @ 57% -FEV1: Moderately-severe reduction @ 50% -FVC: Reduced @ 67% -HKA39-45%: Reduced @ 25% -There is no significant bronchodilator response. Lung volumes by plethysmography: -RV: Increased @ 158% -TLC: Normal @ 110% Diffusion capacity: -DLCO: Moderately-severe reduction @ 51% when corrected for Hb 14.6g/dL Flow-volume loop: -Severe obstructive pattern Impressions: -Moderately severe obstruction on bronchoscopy without a bronchodilator response. An elevated RV suggests air trapping. There is a moderately-severe reduction in diffusion capacity. Overall study is compatible with COPD/emphysema. Clinical correlation required. Clinical correlation required. Electronically Signed On 02-01-2024 6:46:23 EDT by Sukh Lovelace
[2024-01-31 09:01] LABS: Hemoglobin 14.6 g/dL (12.0-16.0)
--- OUTSIDE RECORDS SUMMARY | 2024-01-31 09:07 | XMS_ITS | CCD ---
Author Organization [facility] CliniSyvt Care Team Providers Care Balance Wheel Facer Name Role Phone Niraula, Ezra Unavailable Unavailable PROVIDER, UNKNOWN Unavailable Unavailable JEF, OTTONIEL B Unavailable Unavailable Jef, Ottoniel Unavailable Unavailable PROVIDER, UNKNOWN Unavailable Unavailable Jef, Ottoniel Unavailable Unavailable DOZIER, DEEPIKAH Unavailable Unavailable PROVIDER, UNKNOWN Unavailable Unavailable Fairview, Ottoniel Unavailable Unavailable FIGUEROA, MASROOR Unavailable Unavailable PROVIDER, UNKNOWN Unavailable Unavailable Jef, Ottoniel Unavailable Unavailable FIGUEROA, MASROOR Unavailable Unavailable PROVIDER, UNKNOWN Unavailable Unavailable Jef, Ottoniel Unavailable Unavailable Fairview, Ottoniel Unavailable Unavailable PROVIDER, UNKNOWN Unavailable Unavailable Jef, Ottoniel Unavailable Unavailable FIGUEROA, MASROOR Unavailable Unavailable PROVIDER, UNKNOWN Unavailable Unavailable Fairview, Ottoniel Unavailable Unavailable NIRAULA, EZRA Unavailable Unavailable Fairview, Ottoniel Unavailable Unavailable Tsivitse, Eddi Unavailable Unavailable PROVIDER, UNKNOWN Unavailable Unavailable Fairview, Ottoniel Unavailable Unavailable Jef, Ottoniel Primary Care Provider DR HANDY KEATING Consulting Unavailable SANDEEP, DR NICO Cadena Primary Care Unavailable SAMSA ., ALIS Attending Unavailable SAMSA ., ALIS Admitting Unavailable SONIDO ., ALIS Consulting Unavailable DR NICO HOPKINS [...] ALIS Consulting Unavailable ARIANNA CEVALLOS Consulting Unavailable ZHANG, DAMASO Consulting Unavailable SHARP, TERESA Consulting Unavailable TAL ., DANNI Consulting Unavailable TAL II, ANNALISA Consulting Unavailable DANNI PHELAN Consulting Unavailable SAMSA ., ALIS Admitting Unavailable DR NICO HOPKINS Primary Care Unavailable SAMSA ., ALIS Attending Unavailable SAMSA ., ALIS Consulting Unavailable SONIDO ., ALIS Admitting Unavailable DR NICO HOPKINS Primary Care Unavailable MADIESA ., ALIS Attending Unavailable SAMSA ., ALIS Consulting Unavailable HOWIE CAMPO Consulting Unavailable RODRIGUEZ SCHUSTER Consulting Unavailable SONIYA NARVAEZ Consulting Unavailable Ottoniel Fuchs MD Primary Care Provider NICO HOPKINS Primary Care Physician MD Kale Hanna Attending Provider [phone] Kale Hanna Attending Unavailable Kale Hanna Admitting Unavailable ISIS, Kale Gonzalez Attending Unavailable NICO HOPKINS Referring Unavailable Kale HANNA Attending Unavailable Kale HANNA Attending Unavailable NICO HOPKINS Attending Unavailable NICO HOPKINS Attending Unavailable Allergies Allergy Classification Reported Allergen(s) Allergy Type Date of Onset Reaction(s) Facility (1 source) No Known Medication Allergies; Translations: [No Known Medication Allergies] Propensity to adverse reactions (disorder) [facility] Repository Medications Current Medications Medication Drug [...] source) Corticosteroid Start: 04-09-2023 Flonase 0.05 mg/inh [facility] 100 mcg, Nasal, Daily, Refill(s) 0 Start [...] disease (2 sources) Atherosclerotic heart disease of [place] coronary artery without angina pectoris; Translations: [Athscl heart disease of [place] coronary artery w/o ang pctrs] Onset: 03-08-2018 [...] Onset: 09-22-2022 Episodic Other aftercare (1 source) alf (current) use of aspirin; Translations: [[facility] CURRENT USE OF ASPIRIN] Onset: 09-22-2022 Episodic Other aftercare (5 sources) Other detention (current) drug therapy; Translations: [OTH [facility] CURRENT [...] 1 puff(s), Inhalation, Daily Flonase 0.05 mg/inh [facility], 100 mcg, Nasal, Daily levothyroxine 112 mcg [...] 02/04/2021 Recorded 2023-04-09: [id number] patient seen 06/04/[address] [facility] Comment on above: Result Comment: Elec tronically Signed By: ISIS ALCANTAR, Kale Gonzalez\.br\Date and Time Signed: 06/14/23 16:34 EST Ambulatory Visit Summaryon 0 06-04-2023 Ambulatory Visit Summary ERICA CHACON :1955 Visit Date:06/04/2023 Ambulatory Visit Instructions Your Care Team Attending Physician - ISIS ALCANTAR, Kale Gonzalez Primary Care Physician - SANDEEP ALCANTAR, NICO This Is Your Medications List albuterol (Albuterol (Eqv-ProAir HFA)) amlodipine (amLODIPine 5 mg Tab) aspirin (aspirin 81 mg Oral EC Tab) fluticasone nasal (Flonase 0.05 mg/inh [facility]) fluticasone-vilantero l (Breo Ellipta 100 mcg-25 mcg [...] Unchanged fluticasone nasal (Flonase 0.05 mg/ inh [facility]) 100 Microgram Nasal Inhalation Every day Unchanged [...] you for choosing us for your care. [facility] Reminderson 06-04-2023 Reminders - From: Tamia Price LPN To: N - Clinical; Sent: 06/04/2023 14:05:05 EST Show up: 04/11/2033 07:00:00 EST Subject: colonoscopy recall Due Date/Time: 05/12/2033 07:00:00 EST Reminder/Recall Patient due for screening colonoscopy 05/12/2033. Normal [facility] Outside Colonoscopyon 2023 Outside Colonoscopy [id number] .00TIFF [facility] Pathology Noteon 05-20-2023 Pathology Note [id number]#1. 00TIFF [facility] Matthieu 05-12-2023 L Specimen: [id number] Received: 05/12/23 Status: BILLY [place] Num: [id number] Spec Type: Surgical Subm Dr: Kale Hanna MD FACS Tissues: A Colon Biopsy (SIGMOID POLYP) Procedures: HE/2, Gross/Micro L4 Age/ Patient Sex Location Account Attending Physician Erica Chacon 67/F LABELL [id number] Kale Hanna MD FACS SPEC NUM: [id number] RECD: 05/12/23 STATUS: BILLY [place] NUM: [id number] DONIS: 05/12/[address]: Kale Hanna MD FACS ENTERED: 05/12/[address] [facility] [address]: Tania Nam SPEC TYPE: Surgical DEPT: PERFECTO ORTIZ ORDERED: HE/2, Gross/Micro L4 ORDERED: HE/2, Gross/Micro L4 Pathological Diagnosis Sigmoid polyp biopsy: - Benign hyperplastic polyp of the early serrated glandular type Clinical Information Sigmoid polyp Gross Description Received in formalin labeled with the patient's name, date of and sigmoid polyp is one shaw tissue 0.7 x 0.4 x 0.2 cm. Entirely submitted in one cassette labeled A1. CPT Codes 72113 -------- -------- Specimen: [id number] Received: 05/12/23 Status: BILLY [place] Num: [id number] Spec Type: Surgical Subm Dr: Kale Hanna MD FACS Tissues: A Colon Biopsy (SIGMOID POLYP) Procedures: HE/2, Gross/Micro L4 -------- Patient: Erica Chacon [id number] (Continued) -------- Signed (signature on file) Ai Marquez MD 05/14/23 0853 [facility] Insurance Correspondenceon 0 05-05-2023 Insurance Correspondence [id number] .00TIFF [facility] Consent for Procedure/Surger yon 04-23-2023 Consent for Procedure/Surgery [id number] .[address] [facility] Facesheeton 04-22-2023 Facesheet [id number]# 1.00TIFF [facility] Ambulatory Visit Summaryon 1 06-22-2022 Ambulatory Visit [...] EC Tab) fluticasone nasal (Flonase 0.05 mg/inh [facility]) fluticasone-vilantero l (Breo Ellipta 100 mcg-25 mcg [...] Unchanged fluticasone nasal (Flonase 0.05 mg/ inh [facility]) 100 Microgram Nasal Inhalation Every day Contact [...] for choosing us for your care. Normal [facility] Transfer Inon 04-06-2023 Transfer In [id number] .00TIFF Normal [facility] Physician Referralon 023 Physician Referral [id number] .00TIFF Normal [facility] CBC AUTO DIFFon 09-23-2022 BASO # 0.0 103/ul Normal 0.0-0.1 [facility] Comment on above: Performed By: #### C YTO #### [facility] [address] [place] [address] Dr. Jayy Marquez Basophils/100 WBC (Bld) 0.4 % Normal 0.2-2.0 [facility] Comment on above: Performed By: #### C YTO #### [facility] [address] [address] [address] Jayy Marquez EO # 0.1 103/ul Normal 0.0-0.7 [facility] Comment on above: Performed By: #### C YTO #### [facility] [address] [address] [address] Jayy Marquez Eosinophils/100 WBC (Bld) 0.5 % Critically low 0.9-7.0 [facility] Comment on above: Performed By: #### C YTO #### [facility] [address] [address] [address] Jayy Marquez Erythrocyte distribution width (RBC) [Ratio] 13.1 % Normal 11.0-15.0 [facility] Comment on above: Performed By: #### C YTO #### [facility] [address] [place] [address] Dr. Jayy Marquez Hematocrit (Bld) [Volume fraction] 43.0 % Normal 36.0-48.0 [facility] Comment on above: Performed By: #### C YTO #### [facility] [address] [place] [address] Dr. Jayy Marquez Hemoglobin (Bld) [Mass/Vol] 13.9 g/dL Normal 12.0-16.0 [facility] Comment on above: Performed By: #### C YTO #### [facility] [address] [place] [address] Dr. Jayy Marquez IG # 0.04 10e3/ul Critically high 0.00-0.03 [facility] Comment on above: Performed By: #### C YTO #### [facility] [address] [place] [address] Dr. Jayy Marquez IG % 0.4 % Normal 0.0-0.5 [facility] Comment on above: Performed By: #### C YTO #### [facility] [address] [place] [address] Dr. Jayy Marquez LYMPH # 0.7 103/ul Critically low 1.2-3.8 [place] Comment on above: Performed By: #### C YTO #### [facility] [address] [place] [address] Dr. Jayy Marquez Lymphocytes/100 WBC (Bld) 6.7 % Critically low 20.5-60.0 [facility] Comment on above: Performed By: #### C YTO #### [facility] [address] [place] [address] Dr. Jayy Marquez MANUAL DIFF REQ NO Normal [facility] Comment on above: Performed By: #### C YTO #### [facility] [address] [place] [address] Dr. Jayy Marquez MCH (RBC) [Entitic mass] 31.2 pg Normal 26.7-34.0 [facility] Comment on above: Performed By: #### C YTO #### [facility] [address] [place] [address] Dr. Jayy Marquez MCHC (RBC) [Mass/Vol] 32.3 g/dL Normal 29.9-35.2 [facility] Comment on above: Performed By: #### C YTO #### [facility] [address] [place] [address] Dr. Jayy Marquez MCV (RBC) [Entitic vol] 96.4 fL Normal 81.0-99.0 [facility] Comment on above: Performed By: #### C YTO #### [facility] [address] [place] [address] Dr. Jayy Marquez MONO # 0.9 103/ul Critically high 0.3-0.8 [facility] Comment on above: Performed By: #### C YTO #### [facility] [address] [place] [address] Dr. Jayy Marquez Monocytes/100 WBC (Bld) 8.2 % Normal 1.7-12.0 [facility] Comment on above: Performed By: #### C YTO #### [facility] [address] [place] [address] Dr. Jayy Marquez NEUT # 9.0 103/ul Critically high 1.4-6.5 [facility] Comment on above: Performed By: #### C YTO #### [facility] [address] [place] [address] Dr. Jayy Marquez Neutrophils/100 WBC (Bld) 83.8 % Critically high 43.0-75.0 [facility] Comment on above: Performed By: #### C YTO #### [facility] [address] [place] [address] Dr. Jayy Marquez Platelet mean volume (Bld) [Entitic vol] 10.4 fL Normal 9.5-13.5 [facility] Comment on above: Performed By: #### C YTO #### [facility] [address] [place] [address] Dr. Jayy Marquez PLT 232 103/ul Normal 150-450 [facility] Comment on above: Performed By: #### C YTO #### [facility] [address] [place] [address] Dr. Jayy Marquez RBC 4.46 106/ul Normal 4.20-5.40 [facility] Comment on above: Performed By: #### C YTO #### [facility] [address] [place] [address] Dr. Jayy Marquez WBC 10.7 103/ul Normal 4.0-11.0 [facility] Comment on above: Performed By: #### C YTO #### [facility] [address] [place] [address] Dr. Jayy Marquez PROF CHEM 8 (BAS METB)on Anion gap [Moles/Vol] 13.4 mmol/L Normal Th [facility] Comment on above: Performed By: #### B MP #### [facility] [address] [place] [address] Dr. Jayy Marquez Calcium [Mass/Vol] 9.1 mg/dL Normal 8.5-10.1 [facility] Comment on above: Performed By: #### B MP #### [facility] [address] [place] [address] Dr. Jayy Marquez Chloride [Moles/Vol] 100 mmol/L Normal 98-107 [facility] Comment on above: Performed By: #### B MP #### [facility] [address] [place] [address] Dr. Jayy Marquez CO2 [Moles/Vol] 27.2 mmol/L Normal 21.0-32.0 [place] Comment on above: Performed By: #### B MP #### [facility] [address] [place] [address] Dr. Jayy Marquez Creatinine [Mass/Vol] 0.77 mg/dL Normal 0.55-1.02 [facility] Comment on above: Performed By: #### B MP #### [facility] [address] [place] [address] Dr. Jayy Marquez EGFR-AF [place] >60 Normal >=60 [place] Comment on above: Performed By: #### B MP #### [facility] [address] [place] [address] Dr. Jayy Marquez EGFR-NON AF [place] >60 Normal >=60 [facility] Comment on above: Performed By: #### B MP #### [facility] [address] [address] [address] Jayy Marquez Glucose [Mass/Vol] 173 mg/dL Critically high 74-106 T [facility] Comment on above: Performed By: #### B MP #### [facility] [address] [address] [address] Jayy Marquez Potassium [Moles/Vol] 4.6 mmol/L Normal 3.5-5.1 [facility] Comment on above: Performed By: #### B MP #### [facility] [address] [address] [address] Jayy Marquez Sodium [Moles/Vol] 136 mmol/L Normal 136-145 [facility] Comment on above: Performed By: #### B MP #### [facility] [address] [address] [address] Jayy Marquez Urea nitrogen [Mass/Vol] 16.0 mg/dL Normal 7.0-18.0 [facility] Comment on above: Performed By: #### B MP #### [facility] [address] [address] [address] Jayy Marquez Urea nitrogen/Creatinine [Mass ratio] 20.8 mg/mg Normal [facility] Comment on above: Performed By: #### B MP #### [facility] [address] [address] [address] Jayy Marquez XR CHEST 1 Von [...] ELENO FUENTES Date: 2022-09-23 14:29 Normal [facility] BNPon 09-22-2022 Natriuretic peptide B (Bld) [Mass/Vol] 243.0 pg/mL Normal <=900.0 [facility] Comment on above: Performed By: #### B MP, BNP, HSTROPN #### [facility] [address] [place] [address] Dr. Jayy Marquez CBC AUTO DIFFon 09-22-2022 BASO # 0.0 103/ul Normal 0.0-0.1 [facility] Comment on above: Performed By: #### C VDAGS #### [facility] [address] [place] [address] Dr. Jayy Marquez Basophils/100 WBC (Bld) 0.4 % Normal 0.2-2.0 [facility] Comment on above: Performed By: #### C VDAGS #### [facility] [address] [place] [address] Dr. Jayy Marquez EO # 0.0 103/ul Normal 0.0-0.7 [facility] Comment on above: Performed By: #### C VDAGS #### [facility] [address] [place] [address] Dr. Jayy Marquez Eosinophils/100 WBC (Bld) 0.0 % Critically low 0.9-7.0 [facility] Comment on above: Performed By: #### C VDAGS #### [facility] [address] [place] [address] Dr. Jayy Marquez Erythrocyte distribution width (RBC) [Ratio] 13.1 % Normal 11.0-15.0 [facility] Comment on above: Performed By: #### C VDAGS #### [facility] [address] [place] [address] Dr. Jayy Marquez Hematocrit (Bld) [Volume fraction] 42.7 % Normal 36.0-48.0 [facility] Comment on above: Performed By: #### C VDAGS #### [facility] [address] [place] [address] Dr. Jayy Marquez Hemoglobin (Bld) [Mass/Vol] 13.9 g/dL Normal 12.0-16.0 [facility] Comment on above: Performed By: #### C VDAGS #### [facility] [address] [place] [address] Dr. Jayy Marquez IG # 0.03 10e3/ul Normal 0.00-0.03 [facility] Comment on above: Performed By: #### C VDAGS #### [facility] [address] [place] [address] Dr. Jayy Marquez IG % 0.4 % Normal 0.0-0.5 [facility] Comment on above: Performed By: #### C VDAGS #### [facility] [address] [place] [address] Dr. Jayy Marquez LYMPH # 0.4 103/ul Critically low 1.2-3.8 [place] Comment on above: Performed By: #### C VDAGS #### [facility] [address] [place] [address] Dr. Jayy Marquez Lymphocytes/100 WBC (Bld) 5.5 % Critically low 20.5-60.0 [facility] Comment on above: Performed By: #### C VDAGS #### [facility] [address] [place] [address] Dr. Jayy Marquez MANUAL DIFF REQ NO Normal [facility] Comment on above: Performed By: #### C VDAGS #### [facility] [address] [place] [address] Dr. Jayy Marquez MCH (RBC) [Entitic mass] 31.2 pg Normal 26.7-34.0 [facility] Comment on above: Performed By: #### C VDAGS #### [facility] [address] [place] [address] Dr. Jayy Marquez MCHC (RBC) [Mass/Vol] 32.6 g/dL Normal 29.9-35.2 [facility] Comment on above: Performed By: #### C VDAGS #### [facility] [address] [place] [address] Dr. Jayy Marquez MCV (RBC) [Entitic vol] 96.0 fL Normal 81.0-99.0 [facility] Comment on above: Performed By: #### C VDAGS #### [facility] [address] [place] [address] Dr. Jayy Marquez MONO # 0.3 103/ul Normal 0.3-0.8 [facility] Comment on above: Performed By: #### C VDAGS #### [facility] [address] [place] [address] Dr. Jayy Marquez Monocytes/100 WBC (Bld) 3.5 % Normal 1.7-12.0 [facility] Comment on above: Performed By: #### C VDAGS #### [facility] [address] [place] [address] Dr. Jayy Marquez NEUT # 6.9 103/ul Critically high 1.4-6.5 [facility] Comment on above: Performed By: #### C VDAGS #### [facility] [address] [place] [address] Dr. Jayy Marquez Neutrophils/100 WBC (Bld) 90.2 % Critically high 43.0-75.0 [facility] Comment on above: Performed By: #### C VDAGS #### [facility] [address] [place] [address] Dr. Jayy Marquez Platelet mean volume (Bld) [Entitic vol] 9.8 fL Normal 9.5-13.5 [facility] Comment on above: Performed By: #### C VDAGS #### [facility] [address] [place] [address] Dr. Jayy Marquez PLT 207 103/ul Normal 150-450 [facility] Comment on above: Performed By: #### C VDAGS #### [facility] [address] [place] [address] Dr. Jayy Marquez RBC 4.45 106/ul Normal 4.20-5.40 [facility] Comment on above: Performed By: #### C VDAGS #### [facility] [address] [place] [address] Dr. Jayy Marquez WBC 7.6 103/ul Normal 4.0-11.0 [facility] Comment on above: Performed By: #### C VDAGS #### [facility] [address] [place] [address] Dr. Jayy Marquez BASO # 0.0 103/ul Normal 0.0-0.1 [facility] Comment on above: Performed By: #### C BC #### [facility] [address] [place] [address] Dr. Jayy Marquez Basophils/100 WBC (Bld) 0.4 % Normal 0.2-2.0 [facility] Comment on above: Performed By: #### C BC #### [facility] [address] [place] [address] Dr. Jayy Marquez EO # 0.1 103/ul Normal 0.0-0.7 [facility] Comment on above: Performed By: #### C BC #### [facility] [address] [place] [address] Dr. Jayy Marquez Eosinophils/100 WBC (Bld) 1.4 % Normal 0.9-7.0 [facility] Comment on above: Performed By: #### C BC #### [facility] [address] [place] [address] Dr. Jayy Marquez Erythrocyte distribution width (RBC) [Ratio] 13.2 % Normal 11.0-15.0 [facility] Comment on above: Performed By: #### C BC #### [facility] [address] [place] [address] Dr. Jayy Marquez Hematocrit (Bld) [Volume fraction] 45.5 % Normal 36.0-48.0 [facility] Comment on above: Performed By: #### C BC #### [facility] [address] [place] [address] Dr. Jayy Marquez Hemoglobin (Bld) [Mass/Vol] 15.3 g/dL Normal 12.0-16.0 [facility] Comment on above: Performed By: #### C BC #### [facility] [address] [place] [address] Dr. Jayy Marquez IG # 0.03 10e3/ul Normal 0.00-0.03 [facility] Comment on above: Performed By: #### C BC #### [facility] [address] [place] [address] Dr. Jayy Marquez IG % 0.3 % Normal 0.0-0.5 [facility] Comment on above: Performed By: #### C BC #### [facility] [address] [place] [address] Dr. Jayy Marquez LYMPH # 1.3 103/ul Normal 1.2-3.8 [facility] Comment on above: Performed By: #### C BC #### [facility] [address] [place] [address] Dr. Jayy Marquez Lymphocytes/100 WBC (Bld) 13.8 % Critically low 20.5-60.0 [facility] Comment on above: Performed By: #### C BC #### [facility] [address] [place] [address] Dr. Jayy Marquez MANUAL DIFF REQ NO Normal [facility] Comment on above: Performed By: #### C BC #### [facility] [address] [place] [address] Dr. Jayy Marquez MCH (RBC) [Entitic mass] 32.0 pg Normal 26.7-34.0 [facility] Comment on above: Performed By: #### C BC #### [facility] [facility] [address] [place] [address] Dr. Jayy Marquez MCHC (RBC) [Mass/Vol] 33.6 g/dL Normal 29.9-35.2 [facility] Comment on above: Performed By: #### C BC #### [facility] [address] [place] [address] Dr. Jayy Marquez MCV (RBC) [Entitic vol] 95.2 fL Normal 81.0-99.0 [facility] Comment on above: Performed By: #### C BC #### [facility] [address] [place] [address] Dr. Jayy Marquez MONO # 1.3 103/ul Critically high 0.3-0.8 [facility] Comment on above: Performed By: #### C BC #### [facility] [address] [place] [address] Dr. Jayy Marquez Monocytes/100 WBC (Bld) 13.7 % Critically high 1.7-12.0 [facility] Comment on above: Performed By: #### C BC #### [facility] [address] [place] [address] Dr. Jayy Marquez NEUT # 6.7 103/ul Critically high 1.4-6.5 [facility] Comment on above: Performed By: #### C BC #### [facility] [address] [place] [address] Dr. Jayy Marquez Neutrophils/100 WBC (Bld) 70.4 % Normal 43.0-75.0 [facility] Comment on above: Performed By: #### C BC #### [facility] [address] [place] [address] Dr. Jayy Marquez Platelet mean volume (Bld) [Entitic vol] 9.6 fL Normal 9.5-13.5 [facility] Comment on above: Performed By: #### C BC #### [facility] [address] [place] [address] Dr. Jayy Marquez PLT 218 103/ul Normal 150-450 [facility] Comment on above: Performed By: #### C BC #### [facility] [address] [place] [address] Dr. Jayy Marquez RBC 4.78 106/ul Normal 4.20-5.40 [facility] Comment on above: Performed By: #### C BC #### [facility] [address] [place] [address] Dr. Jayy Marquez WBC 9.5 103/ul Normal 4.0-11.0 [facility] Comment on above: Performed By: #### C BC #### [facility] [address] [place] [address] Dr. Jayy Marquez PROF CHEM 8 (BAS METB)on Anion gap [Moles/Vol] 11.3 mmol/L Normal [facility] Comment on above: Performed By: #### B MP #### [facility] [address] [place] [address] Dr. Jayy Marquez Calcium [Mass/Vol] 8.7 mg/dL Normal 8.5-10.1 [facility] Comment on above: Performed By: #### B MP #### [facility] [address] [address] [address] Jayy Marquez Chloride [Moles/Vol] 100 mmol/L Normal 98-107 [facility] Comment on above: Performed By: #### B MP #### [facility] [address] [address] [address] Jayy Marquez CO2 [Moles/Vol] 27.6 mmol/L Normal 21.0-32.0 [place] Comment on above: Performed By: #### B MP #### [facility] [address] [address] [address] Jayy Marquez Creatinine [Mass/Vol] 0.82 mg/dL Normal 0.55-1.02 [facility] Comment on above: Performed By: #### B MP #### [facility] [address] [address] [address] Jayy Marquez EGFR-AF [place]IZ[place] >60 Normal >=60 [place] Comment on above: Performed By: #### B MP #### [facility] [address] [address] [address] Jayy Marquez EGFR-NON AF [place] CITIZ[place] >60 Normal >=60 [facility] Comment on above: Performed By: #### B MP #### [facility] [address] [address] [address] Jayy Marquez Glucose [Mass/Vol] 203 mg/dL Critically high 74-106 [facility] Comment on above: Performed By: #### B MP #### [facility] [address] [address] [address] Jayy Marquez Potassium [Moles/Vol] 3.9 mmol/L Normal 3.5-5.1 [facility] Comment on above: Performed By: #### B MP #### [facility] [address] [address] [address] Jayy Marquez Sodium [Moles/Vol] 135 mmol/L Critically low 136-145 [facility] Comment on above: Performed By: #### B MP #### [facility] [address] [address] [address] Jayy Marquez Urea nitrogen [Mass/Vol] 11.0 mg/dL Normal 7.0-18.0 [facility] Comment on above: Performed By: #### B MP #### [facility] [address] [address] [address] Jayy Marquez Urea nitrogen/Creatinine [Mass ratio] 13.4 mg/mg Normal [facility] Comment on above: Performed By: #### B MP #### [facility] [address] [address] [address] Jayy Marquez Anion gap [Moles/Vol] 12.9 mmol/L Normal [facility] Comment on above: Performed By: #### C YTO #### [facility] [address] [place] [address] Dr. Jayy Marquez Calcium [Mass/Vol] 9.2 mg/dL Normal 8.5-10.1 [facility] Comment on above: Performed By: #### C YTO #### [facility] [address] [place] [address] Dr. Jayy Marquez Chloride [Moles/Vol] 98 mmol/L Normal 98-107 [facility] Comment on above: Performed By: #### C YTO #### [facility] [address] [place] [address] Dr. Jayy Marquez CO2 [Moles/Vol] 25.8 mmol/L Normal 21.0-32.0 [place] Comment on above: Performed By: #### C YTO #### [facility] [address] [place] [address] Dr. Jayy Marquez Creatinine [Mass/Vol] 0.90 mg/dL Normal 0.55-1.02 [facility] Comment on above: Performed By: #### C YTO #### [facility] [address] [place] [address] Dr. Jayy Marquez EGFR-AF [place]IZ[place] >60 Normal >=60 [place] Comment on above: Performed By: #### C YTO #### [facility] [address] [place] [address] Dr. Jayy Marquez EGFR-NON AF [place] >60 Normal >=60 [facility] Comment on above: Performed By: #### C YTO #### [facility] [address] [address] [address] Jayy Marquez Glucose [Mass/Vol] 150 mg/dL Critically high 74-106 T [facility] Comment on above: Performed By: #### C YTO #### [facility] [address] [place] [address] Dr. Jayy Marquez Potassium [Moles/Vol] 3.7 mmol/L Normal 3.5-5.1 [facility] Comment on above: Performed By: #### C YTO #### [facility] [address] [place] [address] Dr. Jayy Marquez Sodium [Moles/Vol] 133 mmol/L Critically low 136-145 [facility] Comment on above: Performed By: #### C YTO #### [facility] [address] [place] [address] Dr. Jayy Marquez Urea nitrogen [Mass/Vol] 14.0 mg/dL Normal 7.0-18.0 [facility] Comment on above: Performed By: #### C YTO #### [facility] [address] [place] [address] Dr. Jayy Marquez Urea nitrogen/Creatinine [Mass ratio] 15.6 mg/mg Normal [facility] Comment on above: Performed By: #### C YTO #### [facility] [address] [place] [address] Dr. Jayy Marquez RESPIRATORY PANEL PLUSon Adenovirus Not detected Normal NOT DETECTED The [facility] Comment on above: Performed By: #### C VDAGS #### [facility] [address] [place] [address] Dr. Jayy King. Parapertusis Not detected Normal NOT DETECTED The [facility] Comment on above: Performed By: #### C VDAGS #### [facility] [address] [place] [address] Dr. Jayy Marquez B. Pertussis Not detected Normal NOT DETECTED The [facility] Comment on above: Performed By: #### C VDAGS #### [facility] [address] [address] [address] Jayy Marquez Chlamydia Pneumoniae Not detected Normal NOT DETECTED The [facility] Comment on above: Performed By: #### C VDAGS #### [facility] [address] [place] [address] Dr. Jayy Marquez Coronavirus 229E Not detected Normal NOT DETECTED The [facility] Comment on above: Performed By: #### C VDAGS #### [facility] [address] [place] [address] Dr. Jayy Maruqez Coronavirus HKU1 Not detected Normal NOT DETECTED The [facility] Comment on above: Performed By: #### C VDAGS #### [facility] [address] [place] [address] Dr. Jayy Marquez Coronavirus NL63 Not detected Normal NOT DETECTED The [facility] Comment on above: Performed By: #### C VDAGS #### [facility] [address] [place] [address] Dr. Jayy Marquez Coronavirus OC43 Not detected Normal NOT DETECTED The [facility] Comment on above: Performed By: #### C VDAGS #### [facility] [address] [place] [address] Dr. Jayy Marquez Influenza A H1 Not detected Normal NOT DETECTED The [facility] Comment on above: Performed By: #### C VDAGS #### [facility] [address] [place] [address] Dr. Jayy Marquez Influenza A H1 2009 Not detected Normal NOT DETECTED T [facility] Comment on above: Performed By: #### C VDAGS #### [facility] [address] [place] [address] Dr. Jayy Marquez Influenza A H3 Not detected Normal NOT DETECTED The [facility] Comment on above: Performed By: #### C VDAGS #### [facility] [address] [place] [address] Dr. Jayy Marquez Influenza B Not detected Normal NOT DETECTED The [facility] Comment on above: Performed By: #### C VDAGS #### [facility] [address] [address] [address] Jayy Marquez Metapneumovirus Not detected Normal NOT DETECTED [facility] Comment on above: Performed By: #### C VDAGS #### [facility] [address] [place] [address] Dr. Jayy Marquez Mycoplas. Pneumoniae Not detected Normal NOT DETECTED The [facility] Comment on above: Performed By: #### C VDAGS #### [facility] [address] [place] [address] Dr. Jayy Marquez Parainfluenza 1 Not detected Normal NOT DETECTED [facility] Comment on above: Performed By: #### C VDAGS #### [facility] [address] [place] [address] Dr. Jayy Marquez Parainfluenza 2 Not detected Normal NOT DETECTED [facility] Comment on above: Performed By: #### C VDAGS #### [facility] [address] [place] [address] Dr. Jayy Marquez Parainfluenza 3 Not detected Normal NOT DETECTED [facility] Comment on above: Performed By: #### C VDAGS #### [facility] [address] [place] [address] Dr. Jayy Marquez Parainfluenza 4 Not detected Normal NOT DETECTED [facility] Comment on above: Performed By: #### C VDAGS #### [facility] [address] [place] [address] Dr. Jayy Marquez Rhino/Enterovirus Not detected Normal NOT DETECTED The [facility] Comment on above: Performed By: #### C VDAGS #### [facility] [address] [place] [address] Dr. Jayy FAIR Header 1 RESPIRATORY PANEL: VIRUSES Normal The [facility] Comment on above: Performed By: #### C VDAGS #### [facility] [address] [place] [address] Dr. Jayy FAIR Header 2 RESPIRATORY PANEL: BACTERIA Normal [facility] Comment on above: Performed By: #### C VDAGS #### [facility] [address] [place] [address] Dr. Jayy Marquez RSV Not detected Normal NOT DETECTED The [facility] Comment on above: Performed By: #### C VDAGS #### [facility] [address] [place] [address] Dr. Jayy aMrquez SARS-CoV-2 (COVID-19) RNA SILVINO+probe Ql (Unsp spec) Not detected Normal NOT DETECTED The [facility] Comment on above: Performed By: #### C VDAGS #### [facility] [address] [place] [address] Dr. Jayy Marquez SYMPTOMATIC COVID-19 ANTIGEN on 09-22-2022 EUA Statement SEE BELOW Normal The [facility] Comment on above: Result Comment: This test [...] sooner. Performed By: #### C VDAGS #### [facility] [address] [place] [address] Dr. Jayy Marquez SARS-CoV-2 (COVID-19) RNA SILVINO+probe Ql (Unsp spec) Negative Normal NEGATIVE The [facility] Comment on above: Performed By: #### C VDAGS #### [facility] [address] [place] [address] Dr. Jayy Marquez TROPONIN, HIGH SENSITIVITYon 09-22-2022 HSTROP 12.9 pg/mL Normal 4.0-51.3 [facility] Comment on above: Result Comment: CUT- OFF POINTS HAVE BEEN ESTABLISHED BASED ON THE FOURTH UNIVERSAL DEFINITIONS OF MYOCARDIAL INFARCTION. THE UPPER REFERENCE LIMIT (URL) OF TROPONIN, DEFINED THE 99TH PERCENTILE OF cTnI DISTRIBUTION IN A REFERENCE POPULATION, HAS BEEN CONFIRMED THE DECISION THRESHOLD FOR MT DIAGNOSIS. Performed By: #### B MP, BNP, HSTROPN #### [facility] [address] [address] [address] Jayy Marquez XR CHEST 1 Von [...] ARIANNA CEVALLOS Date: 2022-09-22 00:51 Normal The [facility] CT CHEST WO CONon 09-01-2022 [...] HANDY KEATING Date: 2022-09-01 15:28 Normal The [facility] ACID FAST SMEAR AND CXon Acid Fast Culture Negative Normal The [facility] Comment on above: Result Comment: No a goyo fast bacilli isolated after 6 weeks. Performed By: #### A FB #### [facility] [address] [place] [address] Dr. Jayy Marquez Performed By: #### C VDAGS #### [facility] [address] [place] [address] Dr. Jayy Marquez Acid Fast Smear Negative Normal The [facility] Comment on above: Performed By: #### A FB #### [facility] [address] [place] [address] Dr. Jayy Marquez Performed By: #### C VDAGS #### [facility] [address] [place] [address] Dr. Jayy Marquez [employer] Specimen Processing Concentration Normal The [facility] Comment on above: Performed By: #### A FB #### [facility] [address] [place] [address] Dr. Jayy Marquez Performed By: #### C VDAGS #### [facility] [address] [place] [address] Dr. Jayy Marquez FUNGAL CULTUREon 04-23-2022 Fungus (Mycology) Culture Final report Normal [facility] Comment on above: Performed By: #### C XFUN #### [facility] [address] [place] [address] Dr. Jayy Marquez Performed By: #### C VDAGS #### [facility] [address] [place] [address] Dr. Jayy Marquez Fungus Stain Final report Normal The [facility] Comment on above: Performed By: #### C XFUN #### [facility] [address] [place] [address] Dr. Jayy Marquez Performed By: #### C VDAGS #### [facility] [address] [place] [address] Dr. Jayy Marquez Result 1 Comment [facility] Comment on above: Result Comment: TANYA/ Calcofluor preparation: no fungus observed. Performed By: #### C XFUN #### [facility] [address] [place] [address] Dr. Jayy Marquez Result Comment: No y east or mold isolated after 4 weeks. Performed By: #### C VDAGS #### [facility] [address] [place] [address] Dr. Jayy Marquez CULTURE OTHERon 03-26-2022 CULTURE [...] 0.5 S F Tetracycline >=16 R F [facility] Comment on above: Performed By: #### C YTO #### [facility] [address] [place] [address] Dr. Jayy Marquez CULTURE OTHERon 03-25-2022 CULTURE [...] S F Levofloxacin 0.25 S F Normal [facility] Comment on above: Performed By: #### C YTO #### [facility] [address] [address] [address] Jayy Marquez CYTOLOGYon 03-23-2022 SENT TO REF LAB 03/23/2022 Normal [facility] Comment on above: Performed By: #### C YTO #### [facility] [address] [address] [address] Jayy AMADOR STAINon 03-23-2022 DIPHTHEROIDS Normal [facility] Comment on above: Performed By: #### C VDAGS #### [facility] [address] [address] [address] Jayy Marquez EPITHELIALS [facility] Comment on above: Performed By: #### C VDAGS #### [facility] [address] [place] [address] Dr. Jayy Marquez FUNGAL ELEMENTS [facility] Comment on above: Performed By: #### C VDAGS #### [facility] [address] [address] [address] Jayy AMADOR NEG BACILLI FEW [facility] Comment on above: Performed By: #### C VDAGS #### [facility] [address] [address] [address] Jayy AMADOR NEG DIPPLOCOCCI [facility] Comment on above: Performed By: #### C VDAGS #### [facility] [address] [place] [address] Dr. Jayy AMADOR POS BACILLI [facility] Comment on above: Performed By: #### C VDAGS #### [facility] [address] [address] [address] Jayy Marquez GRAM POSITIVE COCCI FEW Normal [facility] Comment on above: Performed By: #### C VDAGS #### [facility] [address] [place] [address] Dr. Jayy Marquez GRAM STAIN SOURCE Rt Middle Lobe Lavage Normal The [facility] Comment on above: Performed By: #### C VDAGS #### [facility] [address] [place] [address] Dr. Jayy Marquez GRAM STAIN SOURCE Lingula Lt Upper Lob e Lavage Normal The [facility] Comment on above: Performed By: #### C VDAGS #### [facility] [address] [place] [address] Dr. Jayy Marquez GS_DIPTH Normal [facility] Comment on above: Performed By: #### C VDAGS #### [facility] [address] [address] [address] Jayy Marquez WBC MANY Normal [facility] Comment on above: Performed By: #### C VDAGS #### [facility] [address] [address] [address] Jayy Marquez WBC MODERATE Normal [facility] Comment on above: Performed By: #### C VDAGS #### [facility] [address] [place] [address] Dr. Jayy Marquez Covid-19 PCR ([facility])on 02-25 SARS-CoV-2 (COVID-19) RNA SILVINO+probe Ql (Unsp spec) Not detected Normal NOT DETECTED [facility] Comment on above: Result Comment: This test is not yet approved or cleared by the [place] FDA. When there are no FDA-approved or cleared tests available, and other criteria are met, FDA can make tests available under an emergency access mechanism called an Emergency Use Authorization (EUA). The EUA for this test is supported by the [employer] of Health and Human Service's (HHS's) declaration [...] SARS-CoV-2. Performed By: #### C YTO #### [facility] [address] [place] [address] LUNG CANCER SCREENINGon [...] HANDY KEATING Date: 2022-03-04 16:14 Normal [facility] CBC AUTO DIFFon 10-30-2021 BASO # 0.0 103/ul Normal 0.0-0.1 [facility] Comment on above: Performed By: #### C VDAGS #### [facility] [address] [address] [address] Jayy Marquez Basophils/100 WBC (Bld) 0.7 % Normal 0.2-2.0 [facility] Comment on above: Performed By: #### C VDAGS #### [facility] [address] [place] [address] Dr. Jayy Marquez EO # 0.2 103/ul Normal 0.0-0.7 [facility] Comment on above: Performed By: #### C VDAGS #### [facility] [address] [place] [address] Dr. Jayy Marquez Eosinophils/100 WBC (Bld) 2.6 % Normal 0.9-7.0 [facility] Comment on above: Performed By: #### C VDAGS #### [facility] [address] [place] [address] Dr. Jayy Marquez Erythrocyte distribution width (RBC) [Ratio] 14.7 % Normal 11.0-15.0 [facility] Comment on above: Performed By: #### C VDAGS #### [facility] [address] [place] [address] Dr. Jayy Marquez Hematocrit (Bld) [Volume fraction] 48.9 % Critically high 36.0-48.0 [facility] Comment on above: Performed By: #### C VDAGS #### [facility] [address] [place] [address] Dr. Jayy Marquez Hemoglobin (Bld) [Mass/Vol] 15.5 g/dL Normal 12.0-16.0 [facility] Comment on above: Performed By: #### C VDAGS #### [facility] [address] [place] [address] Dr. Jayy Marquez IG # 0.01 10e3/ul Normal 0.00-0.03 [facility] Comment on above: Performed By: #### C VDAGS #### [facility] [address] [place] [address] Dr. Jayy Marquez IG % 0.2 % Normal 0.0-0.5 [facility] Comment on above: Performed By: #### C VDAGS #### [facility] [address] [place] [address] Dr. Jayy Marquez LYMPH # 1.6 103/ul Normal 1.2-3.8 [facility] Comment on above: Performed By: #### C VDAGS #### [facility] [address] [address] [address] Jayy Marquez Lymphocytes/100 WBC (Bld) 26.0 % Normal 20.5-60.0 [facility] Comment on above: Performed By: #### C VDAGS #### [facility] [address] [address] [address] Jayy Marquez MANUAL DIFF REQ NO Normal [facility] Comment on above: Performed By: #### C VDAGS #### [facility] [address] [address] [address] Jayy Marquez MCH (RBC) [Entitic mass] 31.5 pg Normal 26.7-34.0 [facility] Comment on above: Performed By: #### C VDAGS #### [facility] [address] [place] [address] Dr. Jayy Marquez MCHC (RBC) [Mass/Vol] 31.7 g/dL Normal 29.9-35.2 [facility] Comment on above: Performed By: #### C VDAGS #### [facility] [address] [address] [address] Jayy Marquez MCV (RBC) [Entitic vol] 99.4 fL Critically high 81.0-99.0 [facility] Comment on above: Performed By: #### C VDAGS #### [facility] [address] [place] [address] Dr. Jayy Marquez MONO # 0.8 103/ul Normal 0.3-0.8 [facility] Comment on above: Performed By: #### C VDAGS #### [facility] [address] [place] [address] Dr. Jayy Marquez Monocytes/100 WBC (Bld) 12.4 % Critically high 1.7-12.0 [facility] Comment on above: Performed By: #### C VDAGS #### [facility] [address] [place] [address] Dr. Jayy Marquez NEUT # 3.6 103/ul Normal 1.4-6.5 [facility] Comment on above: Performed By: #### C VDAGS #### [facility] [address] [place] [address] Dr. Jayy Marquez Neutrophils/100 WBC (Bld) 58.1 % Normal 43.0-75.0 [facility] Comment on above: Performed By: #### C VDAGS #### [facility] [address] [place] [address] Dr. Jayy Marquez Platelet mean volume (Bld) [Entitic vol] 10.1 fL Normal 9.5-13.5 [facility] Comment on above: Performed By: #### C VDAGS #### [facility] [address] [place] [address] Dr. Jayy Marquez PLT 234 103/ul Normal 150-450 [facility] Comment on above: Performed By: #### C VDAGS #### [facility] [address] [place] [address] Dr. Jayy Marquez RBC 4.92 106/ul Normal 4.20-5.40 [facility] Comment on above: Performed By: #### C VDAGS #### [facility] [address] [place] [address] Dr. Jayy Marquez WBC 6.2 103/ul Normal 4.0-11.0 [facility] Comment on above: Performed By: #### C VDAGS #### [facility] [address] [place] [address] Dr. Jayy Marquez FREE T3on 10-30-2021 FREE T3 2.73 pg/mlL Normal 2.18-3.98 [facility] Comment on above: Performed By: #### C VDAGS #### [facility] [address] [place] [address] Dr. Jayy Marquez FREE T4on 10-30-2021 Free T4 [Mass/Vol] 1.25 ng/dL Normal 0.76-1.46 [facility] Comment on above: Performed By: #### F T4 #### [facility] [address] [place] [address] Dr. Jayy Marquez PROF CHEM 8 (BAS METB)on Anion gap [Moles/Vol] 8.8 mmol/L Normal [facility] Comment on above: Performed By: #### C VDAGS #### [facility] [address] [place] [address] Dr. Jayy Marquez Calcium [Mass/Vol] 9.4 mg/dL Normal 8.5-10.1 [facility] Comment on above: Performed By: #### C VDAGS #### [facility] [address] [place] [address] Dr. Jayy Marquez Chloride [Moles/Vol] 104 mmol/L Normal 98-107 [facility] Comment on above: Performed By: #### C VDAGS #### [facility] [address] [place] [address] Dr. Jayy Marquez CO2 [Moles/Vol] 29.4 mmol/L Normal 21.0-32.0 [place] Comment on above: Performed By: #### C VDAGS #### [facility] [address] [place] [address] Dr. Jayy Marquez Creatinine [Mass/Vol] 0.74 mg/dL Normal 0.55-1.02 [facility] Comment on above: Performed By: #### C VDAGS #### [facility] [address] [place] [address] Dr. Jayy Marquez EGFR-AF [place] CITIZEN >60 Normal >=60 [facility] Comment on above: Performed By: #### C VDAGS #### [facility] [address] [place] [address] Dr. Jayy Marquez EGFR-NON AF [place] CITIZEN >60 Normal >=60 [facility] Comment on above: Performed By: #### C VDAGS #### [facility] [address] [place] [address] Dr. Jayy Marquez Glucose [Mass/Vol] 108 mg/dL Critically high 74-106 [facility] Comment on above: Performed By: #### C VDAGS #### [facility] [address] [place] [address] Dr. Jayy Marquez Potassium [Moles/Vol] 4.2 mmol/L Normal 3.5-5.1 [facility] Comment on above: Performed By: #### C VDAGS #### [facility] [address] [place] [address] Dr. Jayy Marquez Sodium [Moles/Vol] 138 mmol/L Normal 136-145 [facility] Comment on above: Performed By: #### C VDAGS #### [facility] [address] [place] [address] Dr. Jayy Marquez Urea nitrogen [Mass/Vol] 16.0 mg/dL Normal 7.0-18.0 [facility] Comment on above: Performed By: #### C VDAGS #### [facility] [address] [place] [address] Dr. Jayy Marquez Urea nitrogen/Creatinine [Mass ratio] 21.6 mg/mg Normal [facility] Comment on above: Performed By: #### C VDAGS #### [facility] [address] [place] [address] Dr. Jayy Marquez SGOTon 10-30-2021 AST [Catalytic activity/Vol] 11 U/L Critically low 15-37 [facility] Comment on above: Performed By: #### B MP #### [facility] [address] [place] [address] Dr. Jayy Marquez SGPTon 10-30-2021 ALT [Catalytic activity/Vol] 22 U/L Normal 14-59 [facility] Comment on above: Performed By: #### C VDAGS #### [facility] [address] [place] [address] Dr. Jayy Marquez TSHon 10-30-2021 TSH 1.593 uIU/mL Normal 0.358-3.740 [facility] Comment on above: Performed By: #### B MP #### [facility] [address] [place], [place] [id number] Dr. Jayy Marquez CT LUNG SCREENING (ANNUAL)on 09-26-2019 Patient Name: ERICA CHACON ---CT--- Exam Date/Time 09/26/2019 10:55:[address] Low Dose Lung Scrn Ordering Physician RAVINDRA THURMAN, CHYNA PERLA Accession Number [id number] CPT4 Codes G0297 (CT Low Dose Lung [...] ROBERT Transcribed Date and Time: 09/26/2019 1:18 [facility] Incoming Radiology Results From [facility] - 09/26/2019 1:28 PM EDT Patient Name: ERICA CHACON ---CT--- Exam Date/Time 09/26/2019 10:55:[address] Low Dose Lung Scrn Ordering Physician RAVINDRA THURMAN TAMMY KAY Accession Number [id number] CPT4 Codes G0297 (CT Low Dose Lung [...] ROBERT Transcribed Date and Time: 09/26/2019 1:18 [place] CT Low Dose Lung Screeningon 09-26-2019 CT Low Dose Lung Screening Patient Name: ERICA CHACON CT Exam Date/Time 09/26/2019 10:55:[address] Low Dose Lung Scrn Ordering Physician RAVINDRA THURMAN TAMMY KAY Accession Number [id number] CPT4 Codes G0297 (CT Low Dose Lung [...] ROBERT Transcribed Date and Time: 09/26/2019 1:18 Normal [facility] OBSOLETEon 11-13-2016 OBSOLETE Refill (ENDMED) ----ERICA CHACON ([id number]) 1955 [facility] Time Provider Department11/13/16 CHARLOTTE RATLIFF [...] by JENNY ARIAS MA on 11/16/16 Normal [facility] Colonoscopy w/ or w/o biopsy on 01-12-2013 Colon polyps Internal hemorrhoids Normal appearing terminal ileum and colonic mucosa, s/p random biopsies [employer] [facility] This order was created through External Result Entry [facility] Vital Signs Date Time Vital Sign Value Performing Clinician Manpreet strickland 04-21-2023 14:10-0500 Blood Pressure Location Kale HANNA [facility] 04-21-2023 14:10-0500 Diastolic blood pressure 78 mm[Hg] Kale HANNA [facility] 04-21-2023 14:10-0500 Heart rate 72 /min Kale JOSÉL [facility] 04-21-2023 14:10-0500 Respiratory rate 16 /min Kale HANNA [facility] 04-21-2023 14:10-0500 Systolic blood pressure 128 mm[Hg] Kale HANNA [facility] Encounters Encounter Date Encounter Type Care Provider Facility Start: 09-27-2023 End: 09-27-2023 ambulatory NICO HOPKINS Not Available Start: 06-04-2023 End: 06-05-2023 ambulatory Kale HANNA Facility:[facility] Start: 05-12-2023 End: 05-12-2023 ambulatory Kale Hanna Facility:[facility] Start: 05-12-2023 End: 05-13-2023 ambulatory Kale HANNA [facility] Work Phone: Start: 05-12-2023 End: 05-12-2023 Departed Referred MD Kale Hanna Work Phone: [facility] Start: 04-21-2023 End: 04-22-2023 ambulatory Kale HANNA Facility:[facility] Start: 04-21-2023 End: 04-21-2023 Patient encounter procedure Kale HANNA [facility] N[facility] Start: 04-02-2023 ambulatory Kale HANNA Facility:[facility] Start: 04-01-2023 End: 04-01-2023 ambulatory NICO HOPKINS Not Available Start: 09-22-2022 Evaluation and manag ement of inpatient DR DAYAMI FULLER . Facility:[facility] Start: 09-01-2022 End: 09-02-[address] HANDY KEATING Facility:[facility] Start: 03-23-2022 End: 03-23-2022 ambulatory ALIS HEAD . Facility:[facility] Start: 03-23-2022 Encounter for preprocedural cardiovascular examination ALIS HEAD . [facility] Start: 03-23-2022 Encounter for preprocedural laboratory examination ALIS HEAD . [facility] Start: 03-17-2022 End: 03-18-2022 ambulatory ALIS HEAD . Facility:[facility] Start: 03-17-2022 End: 03-18-2022 Encounter for preprocedural laboratory examination ALIS HEAD . Facility:[facility] Start: 03-04-2022 End: 03-05-[address] HANDY KEATING Facility:[facility] Start: 10-30-2021 End: 10-31-[address] NICO HOPKINS Facility:[facility] Start: 09-26-2019 End: 09-26-2019 Subsequent hospital visit by physician Chyna Thurman Work Phone: [facility] Comment on above: Cigarette nicotine d ependence with nicotine-induced disorder Start: 09-08-2018 Patient encounter procedure Ezra Nichols [facility] Start: 04-04-2018 Patient encounter procedure Eddi Diaz [facility] Start: 03-08-2018 [facility] Start: 03-07-2018 [facility] Start: 02-22-2018 Patient encounter procedure Ottoniel Fuchs [facility] Start: 09-14-2017 [facility] Start: 08-14-2017 Emergency department patient visit MARTIN TASIA [facility] Start: 08-13-2017 Patient encounter procedure Ottoniel Fuchs [facility] Start: 01-12-2013 Conversion Encounter Ottoniel jackson MD Work Phone: [facility] Start: 01-12-2013 Legacy Encounter Ottoniel osborn MD Work Phone: [facility] Procedures Date Procedure Procedure Detail Performing Clinician Start: 09-26-2019 Ldct for lung ca screen Chyna Thurman Work Phone: Start: 01-12-2013 COLONOSCOPY W/ OR W/ O BIOPSY Ottoniel Fuchs MD Work Phone: Bronchoscopy Kale NILL section Kale NIL L Colonoscopy Kale NILL Extraction of cataract Ramon twila NILL Laparoscopy Kale NILL Ligation of fallopian tube Cammy delgadillo NILL Thyroidectomy Kale NILL Plan of Treatment Date Care Activity Detail Author Start: 12-24-2025 DTaP/Tdap/Td vaccine (2 - Td) DTaP/Tdap/Td vaccine (2 - Td) [place] Start: 12-30-2023 Lipid panel Lipid screen [place], [place] Start: 02-11-2023 Screening for malign ant neoplasm of cervix Cervical cancer screen [place] Start: 01-12-2023 Screening for malign ant neoplasm of colon Colon cancer screen colonoscopy [place] Start: 02-23-2020 Screening for malign ant neoplasm of breast Breast cancer screen [place] Start: 02-13-2020 Pneumococcal 65+ yea rs Vaccine (1 of 1 - PPSV23) Pneumococcal 65+ years Vaccine (1 of 1 - PPSV23) [place] Start: 02-08-2020 End: 02-08-2020 Office Visit 02/08/2020 Office Visit Family Medicine Ottoniel Fuchs MD [address] [facility] [place] [address] [facility] Start: 12-30-2019 Creatinine measurement Creatinine mo nitoring [place], [place] Start: 12-30-2019 HbA1c (Bld) [Mass fraction] A1C test (Diabetic or Prediabetic) [place] Start: 12-30-2019 Potassium monitoring Potassium monit oring [place] Start: 12-30-2019 TSH Qn TSH testing [place], [place] Start: 09-09-2019 Screening for malign ant neoplasm of lung Low dose CT lung screening [place], [place] Start: 08-09-2019 Annual Wellness Visi t (AWV) Annual Wellness Visit (AWV) [place] Immunizations Immunization Date Immunization Notes Care Provider Fa cility 03-08-2023 influenza virus vacc ine, unspecified formulation Kale ISIS [facility] 02-04-2021 SARS-CoV-2 (COVID-19 ) Ad26 vaccine, recombinant Kale [facility] Comment on above: Result Comment: 2022: [id number] 03-30-2019 Seasonal, quadrivale nt, recombinant, injectable influenza vaccine, preservative free [place] 12-29-2018 zoster vaccine recombinant [place] 02-11-2018 influenza virus vacc ine, unspecified formulation [place] 02-11-2018 influenza, injectabl e, quadrivalent, contains preservative [place] 02-11-2018 zoster vaccine recombinant [place] 12-25-2015 tetanus toxoid, redu florentino diphtheria toxoid, and acellular pertussis vaccine, adsorbed [place] 02-12-2015 pneumococcal polysaccharide vaccine, 23 valent [place] 02-12-2015 zoster vaccine, live [place] Payers Date Payer Category Payer Self-pay 2023 Unknown [id number] 2019 Medicare MEDICARE MEDICAR E PART A AND B xxxxxxxxxxx 2019-Present [phone] [place] [address] xxxxxxxxxxx [id number] 2019 Private Health Insurance [employer] MEDICARE SUPP xxxxxxxxxx 2019-Present [phone] [address] [place] [address] xxxxxxxxxx [id number] 1960 Unknown [id number] [id number] .668 1960 Unknown [id number] 2..840.1.646247.3.579.2 .668 1959 Medicare [id number] 1959 Private Health Insurance CLI [id number] 1954 Unknown [id number] 2.840.1.017799.3.579.2 .8 1954 Unknown [id number] 2.840.1.855257.3.579.2 .1954 Unknown [id number] 2.16.840.1.438853.3.579.2 8 1954 Unknown [id number] 2.840.1.282321.3.579.2 .1954 Unknown [id number] 2.16840.1.225430.3.579.2 .1954 Unknown [id number] 2.16.840.1.733842.3.579.2 .1954 Unknown [id number] 2.16.840.1.841212.3.579.2 .8 1954 Unknown [id number] 2.16.840.1.004753.3.579.2 .593 1954 Unknown [id number] 2.16.840.1.700404.3.579.2 .593 1954 Unknown [id number] 2.16.840.1.041671.3.579.2 .593 1954 Unknown [id number] 2.16.840.1.612913.3.579.2 .593 1954 Unknown [id number] 2.16.840.1.257236.3.579.2 .593 1954 Unknown [id number] 2.16.840.1.690549.3.579.2 .593 1954 Unknown [id number] 2.16.840.1.448033.3.579.2 .727 1954 Unknown [id number] 2.16.840.1.174556.3.579.2 .727 1954 Unknown [id number] 2.16.840.1.798174.3.579.2 .727 1954 Unknown [id number] 2.16.840.1.264315.3.579.2 .1259 1954 Unknown [id number] 2.16.840.1.764282.3.579.2 .1259 Unknown Social History Date Type Detail Facility [facility]02-[facility] [place] Start: 08-02-1971 History of tobacco use Cigarette Smo ker [place] Start: 08-09-2019 Cigarettes smoked current (pack per day) - Reported [place] Start: 08-09-2019 Alcohol intake Current drinke r of alcohol (finding) [place] Start: 12-29-2018 History SDOH Alcohol Frequency 4 [place] Start: 12-29-2018 History SDOH Alcohol Std Drinks 1 [place] Start: 12-29-2018 History SDOH Social Connections Get Together 2 [place] Start: 12-29-2018 History SDOH Social Connections Living 3 [place] Start: 12-29-2018 History SDOH Physica l Activity DPW 0 [place] Start: 12-29-2018 History SDOH [facility] Start: 08-16-2017 Tobacco Comment Less than a pack a d ay [facility] Start: 08-16-2017 Alcohol Comment Occasionally [place] Start: 1955 Sex Assigned At [facility] [place] [place] Tobacco smoking stat [facility] Tobacco smoking consumption unknown [facility] Gender identity Not on file [facility] Start: 04-21-2023 Tobacco smoking status Ex-smoker (fi nding) [facility] Tobacco smoking status Never [facility] Start: 1955 Sex Assigned At Female F [facility] Goals Date Patient Goal Desired Activity /State Comment on above: Quit Smoking. Barriers: lack of motivation Plan for overcoming my barriers: Will discuss plan with provider. Confidence: [phone] Anticipated Goal Completion Date: 1 year. Functional Status Date Assessment Result Facility 04-21-2023 Functional Status N/A General Barr rgery [facility] Clinical Note 04-21-2023 Note Date & Type [...] 1 puff(s), Inhalation, Daily Flonase 0.05 mg/inh [place], 100 mcg, Nasal, Daily levothyroxine 112 mcg [...] of lung: Brother. (more content not included)... [facility] Comment on above: Result Comment: Elec tronically Signed By: ISIS ALCANTAR, Kale Thurman\Date and Time Signed: 04/21/23 14:46 EST Evaluation + Plan note Note Date & Type Note Facility Evaluation + Plan note No data available for this section [facility] Evaluation note Note Date & Type Note Facility Evaluation note [facility] Discharge instructions Note Date & Type Note Facility Hospital Discharge instructions No data available for this section [facility] Progress note Note Date & Type Note Facility Progress note No data available for this section [facility] Summary Purpose Family History No Family History Records FoundNo Family History Records FoundNo Family History Records FoundNo Family History Records FoundNo Family History Records Found No data available for this section No Family History Records FoundNo Family History Records FoundNo Family History Records Found Advance Directives No Advanced Directives Records FoundDocuments on File Type Date Recorded Patient Child And Youth Program Assistant Expl anation Advance Directives and Living Will Power of Reel Film Inspector Reason for Referral Status Reason Specialty Diagnoses / Procedures Referre d By Contact Referred To Contact [facility] Diagnoses Cigarette nicotine dependence with nicotine-induced disorder Procedures CT LUNG SCREENING (ANNUAL) Chyna Thurman, ADMINISTRATIVE SUPERVISOR - AUTO EMISSIONS TECHNICIAN [address] [address] Assessments Diagnosis Cigarette nicotine dependence with nicotine-induced disorder Unspecified drug-induced mental disorder Additional Source Comments INFORMATION SOURCE (unrecogn ized section and content) DATE CREATED AUTHOR 10/20/2017 [facility] DATE CREATED AUTHOR AUTHOR'S ORGANIZ ATION 04/04/2018 [facility] DATE CREATED AUTHOR AUTHOR'S ORGANIZ ATION 04/09/2018 [facility] DATE CREATED AUTHOR AUTHOR'S ORGANIZ ATION 09/26/2019 [facility] DATE CREATED AUTHOR AUTHOR'S ORGANIZ ATION 10/02/2022 [facility] DATE CREATED AUTHOR AUTHOR'S ORGANIZ ATION 06/15/2023 [facility] DATE CREATED AUTHOR AUTHOR'S ORGANIZ ATION 06/15/2023 [facility] DATE CREATED AUTHOR AUTHOR'S ORGANIZ ATION 09/27/2023 [facility] [employer] Care Teams (unrecognized sec tion and content) Balance Wheel Facer Relationship Specialty Start Date End Date Ottoniel Fuchs MD [facility] [address] [place] [address] PCP - General 12/21/13 Team Status: Inactive Member Role Status Dates Kale Hanna MD FACS Attending Provider Active Start: May 12, 2023 End: May 12, 2023 Goals (unrecognized section and content) Goals may be documented in a n alternate section FOR RECORDS PERTAINING TO PATIENTS WHO ARE [...] BE BASED ON THE PRIMARY CLINICAL RECORDS. [facility] [employer] provides no warranty or guarantee of the accuracy or completeness of information in this document.
[2024-01-31] MEDS: ALBUTEROL SULFATE 2.5 MG/3 ML VIAL NEB IH (10:35)
== END 2024-01-31 08:49 | disposition home or self-care (01) ==
LOC: CARD 08:49
PROVIDERS: PCP Family Medicine; Visit Provider Internal Medicine
DX: J43.2 Centrilobular emphysema (principal); J47.9 Bronchiectasis, uncomplicated
CPT/HCPCS: 36415; 85018; 94060; 94726; 94729

== ENCOUNTER 2024-04-13 15:26 | Inpatient (IN) | payer MEDICARE, SELFPAY ==
[2024-04-13] VITALS (22 sets, daily range): BP systolic 102–167; BP diastolic 59–88; PULSE 71–93; TEMP 36.6–37.1; O2SAT 87–98; BMI 31.6; BMI 30.9
--- NOTE | 2024-04-13 15:41 | ECG_ITS ---
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
--- NOTE | 2024-04-13 15:42 | ED.SOB1 ---
HPI - SOB/Dyspnea General Chief Complaint: Shortness of Breath/Dyspnea Stated Complaint: SHORTNESS OF BREATH & ELEVATED HEART RATE PER PT Time Seen by Provider: 04/13/24 15:36 Source: patient Mode of arrival: walk-in History of Present Illness HPI Narrative: Patient is a 68-year-old female with a history of COPD/emphysema who presents to the emergency department for increasing shortness of breath over the last 2 days. She states her heart rate has been variable between 70-90. She denies chest pain but has felt tight in her chest. She denies fevers, vomiting or diarrhea. She denies peripheral edema. She has had productive coughing with green sputum. She uses a maintenance inhaler and saline nebulizers regularly. No recent antibiotics or steroids. She sees pulmonology locally. Nursing noted that when the patient ambulated back to her room, her pulse oximetry was 84 to 86% until she was able to catch her breath and then pulse oximetry normalized. She states 1 year ago she was intubated and on a ventilator after she developed influenza B and had respiratory failure. Related Data Home Medications ?Medication ?Instructions ?Recorded ?Confirmed albuterol sulfate 90 mcg/actuation 2 puff inhalation QID PRN 09/24/22 07/22/23 aerosol inhaler (ProAir HFA) shortness of breath or wheezing aspirin 81 mg chewable tablet 81 mg PO QDAY 09/24/22 07/22/23 (Aspirin Childrens) fluticasone furoate 100 1 inh inhalation Q24H 09/24/22 07/22/23 mcg-vilanterol 25 mcg/dose inhalation powder (Breo Ellipta) levothyroxine 112 mcg tablet 112 mcg PO .daily 09/24/22 07/22/23 (Synthroid) losartan 50 mg tablet 50 mg PO .daily 09/24/22 07/22/23 multivitamin 1 tab PO QDAY 09/24/22 07/22/23 soft lens rinse,store solution 04/29/23 04/29/23 Previous Rx's ?Medication ?Instructions ?Recorded amlodipine 5 mg tablet 5 mg PO QD #30 tabs 10/02/22 Allergies Allergy/AdvReac Type Severity Reaction Status Date / Time No Known Drug Allergies Allergy Verified 05/12/23 08:34 Review of Systems ROS Constitutional Denies: fever or chills Ears, nose, mouth, and throat Denies: throat pain or nasal congestion Cardiovascular Denies: chest pain Respiratory Reports: shortness of breath, cough and change in phlegm color; Denies: coughing up blood Gastrointestinal Denies: abdominal pain, nausea or vomiting Integumentary/Breast Denies: rash Neurological Denies: numbness in extremities or weakness in extremities Hematologic/Lymphatic Denies: easy bruising or easy bleeding PFSH PFSH Medical History (Updated 04/13/24 @ 16:53 by SOCORRO Thornton) COPD (chronic obstructive pulmonary disease) ?J44.9 - Chronic obstructive pulmonary disease, unspecified (ICD-10) Normal colonoscopy Haemophilus influenzae infection ?A49.2 - Hemophilus influenzae infection, unspecified site (ICD-10) Acute respiratory acidosis ?J96.02 - Acute respiratory failure with hypercapnia (ICD-10) Acute exacerbation of bronchiectasis ?J47.1 - Bronchiectasis with (acute) exacerbation (ICD-10) Acute respiratory failure with hypoxia ?J96.01 - Acute respiratory failure with hypoxia (ICD-10) Surgical History (Updated 04/29/23 @ 13:10 by Imani Osborne) H/O tubal ligation ?Z98.51 - Tubal ligation status (ICD-10) H/O thyroidectomy ?E89.0 - Postprocedural hypothyroidism (ICD-10) H/O laparoscopy ?Z98.890 - Other specified postprocedural states (ICD-10) Previous section ?Z98.891 - History of uterine scar from previous surgery (ICD-10) Cataract extraction status ?Z98.49 - Cataract extraction status, unspecified eye (ICD-10) History of bronchoscopy ?Z98.890 - Other specified postprocedural states (ICD-10) Family History (Updated 04/29/23 @ 13:18 by Imani Osborne) Other Family history of COPD (chronic obstructive pulmonary disease) Family history of cancer Family history of diabetes mellitus Heart disease Hyperlipidemia Social History Within the past year, how often did you have a drink containing alcohol: 2-4 times a month Smoking status: Former smoker Non-prescribed substance use: denies use Previous occupational history: retired Highest level of school completed/degree received: high school graduate Little interest or pleasure in doing things: not at all Feeling down, depressed, or hopeless: not at all Exam Narrative Exam Narrative: Gen.: Awake, alert, in no distress Head: Normocephalic, atraumatic ENT: Moist mucous membranes Respiratory: No respiratory distress, speaks in full sentences, lung sounds diminished globally Cardio: Regular rate and rhythm Extremities: Moves extremities equally, no pedal edema Psych: Normal mood and affect Neuro: No focal neuro deficit Skin: Warm, dry, intact Constitutional Vital Signs, click to edit/add: Last Vital Signs Temp 97.9 F 04/13/24 15:30 Pulse 79 04/13/24 15:51 Resp 24 H 04/13/24 15:30 BP 167/88 H 04/13/24 15:30 Pulse Ox 93 L 04/13/24 15:51 O2 Del Method Room Air 04/13/24 15:51 Course Vital Signs Vital signs: Vital Signs Temperature 97.9 F 04/13/24 15:30 Pulse Rate 93 H 04/13/24 15:30 Respiratory Rate 24 H 04/13/24 15:30 Blood Pressure 167/88 H 04/13/24 15:30 Pulse Oximetry 93 L 04/13/24 15:30 Oxygen Delivery Method Room Air 04/13/24 15:30 Temperature 97.9 F 04/13/24 15:30 Pulse Rate 79 04/13/24 15:51 Respiratory Rate 24 H 04/13/24 15:30 Blood Pressure 167/88 H 04/13/24 15:30 Pulse Oximetry 93 L 04/13/24 15:51 Oxygen Delivery Method Room Air 04/13/24 15:51 MDM - SOB/Dyspnea MDM Narrative Medical decision making narrative: Patient was given steroids, breathing treatment in the ER, at rest her pulse oximetry is borderline hypoxic but after the breathing treatment and coughing, she was noted to be 86 to 87% on room air with a good waveform. Oxygen by nasal cannula was given. Laboratory studies including D-dimer, troponin and BNP are within normal limits and respiratory swabs are negative. Chest x-ray shows no evidence of acute cardiopulmonary changes. Discussed with the patient and her at bedside that she should be observed in the hospital at least overnight for breathing treatments and steroids with antibiotics for COPD exacerbation. She is agreeable to this. Stable at time of admission. SUPERVISED APC VISIT, PHYSICIAN ATTESTATION: Based on the medical record the care appears appropriate. ? Medical Records Attestation: I reviewed the patient's medical records. Lab Data Attestation: I reviewed the patient's lab results. Labs: Lab Results 04/13/24 04/13/24 Range/Units 15:43 16:15 WBC 10.0 (4.0-11.0) 10^3/uL RBC 4.57 (4.20-5.40) 10^6/uL Hgb 14.2 (12.0-16.0) g/dL Hct 43.6 (36.0-48.0) % MCV 95.4 (81.0-99.0) fL MCH 31.1 (26.7-34.0) pg MCHC 32.6 (29.9-35.2) g/dL RDW 13.3 (11.0-15.0) % Plt Count 226 (150-450) 10^3/uL MPV 9.5 (9.5-13.5) fL Neut % (Auto) 75.4 H (43.0-75.0) % Lymph % (Auto) 15.4 L (20.5-60.0) % Rankin % (Auto) 8.4 (1.7-12.0) % Eos % (Auto) 0.3 L (0.9-7.0) % Baso % (Auto) 0.3 (0.2-2.0) % Neut # (Auto) 7.6 H (1.4-6.5) 10^3/uL Lymph # (Auto) 1.5 (1.2-3.8) 10^3/uL Rankin # (Auto) 0.8 (0.3-0.8) 10^3/uL Eos # (Auto) 0.0 (0.0-0.7) 10^3/uL Baso # (Auto) 0.0 (0.0-0.1) 10^3/uL Abs Immat Gran (auto) 0.02 (0.00-0.03) 10^3/uL Imm/Tot Granulo (auto) 0.2 (0.0-0.5) % PT 10.6 (9.0-11.6) sec INR 1.00 APTT 30.2 (22.3-36.2) sec D-Dimer 0.33 (<=0.59) mg/L FEU VBG pH 7.393 (7.330-7.430) VBG pCO2 47.3 (40.0-52.0) mmHg Sodium 137 (136-145) mmol/L Potassium 3.6 (3.5-5.1) mmol/L Chloride 103 (98-107) mmol/L Carbon Dioxide 28.0 (21.0-32.0) mmol/L Anion Gap 9.6 BUN 8.0 (7.0-18.0) mg/dL Creatinine 0.89 (0.55-1.02) mg/dL Est GFR ( Amer) >60 (>=60 mL/min/1.73m^2) Est GFR (Non-Af Amer) >60 (>=60 mL/min/1.73m^2) BUN/Creatinine Ratio 9.0 Glucose 136 H (74-106) mg/dL Calcium 8.9 (8.5-10.1) mg/dL Total Bilirubin 0.6 (0.2-1.0) mg/dL AST 11 L (15-37) U/L ALT 16 (14-59) U/L Alkaline Phosphatase 73 (46-116) U/L Troponin I High Sens 7.5 (4.0-51.3) pg/mL NT-Pro-B Natriuret Pep 157.0 (<=900.0) pg/mL Total Protein 7.0 (6.4-8.2) g/dL Albumin 3.5 (3.4-5.0) g/dL Globulin 3.5 g/dL Albumin/Globulin Ratio 1.0 Influenza Type A Ag Negative Influenza Type B Ag Negative RSV Antigen Not detected (NOT DETECTE) SARS-CoV-2 Ag (CV2AG) Negative (NEGATIVE) Imaging Data Chest x-ray: Attestation: I have reviewed the pertinent imaging results. Radiologist's impression: ITS Impressions Chest X-Ray 04/13/24 16:18 IMPRESSION: No acute cardiopulmonary process. Electronically authenticated by: GIOVANI MADRID Date: 04/13/2024 16:38 ECG Data Attestation: I personally reviewed and interpreted this ECG as follows: (Normal sinus rhythm at a rate of 78, no acute ST elevation, no ectopy. Artifact present within the EKG reviewed by attending physician.) Discharge Plan Discharge Chief Complaint: Shortness of Breath/Dyspnea Patient Disposition: Admitted as Observation Time of Disposition Decision: 16:53 Prescriptions / Home Meds: No Action albuterol sulfate [ProAir HFA] 90 mcg/actuation HFA aerosol inhaler 2 puff inhalation QID PRN (Reason: shortness of breath or wheezing) fluticasone furoate-vilanterol [Breo Ellipta] 100-25 mcg/dose blister with device 1 inh INHALATION Q24H levothyroxine [Synthroid] 112 mcg tablet 112 mcg PO .daily losartan 50 mg tablet 50 mg PO .daily multivitamin Tablet 1 tab PO QDAY aspirin [Aspirin Childrens] 81 mg tablet,chewable 81 mg PO QDAY amlodipine 5 mg Tablet 5 mg PO QD Qty: 30 0RF (DME) soft lens rinse,store solution Aerosol,[place] See Rx Instructions .ROUTE Rx Instructions: As directed Print Language: Citizen [place] Referrals: Antonio Riggins MD [Primary Care Provider] - 1 week
--- OUTSIDE RECORDS SUMMARY | 2024-04-13 15:43 | XMS_ITS | CCD ---
Author Organization [facility] CliniSyms Care Team Providers Care Finish Machine Tender Name Role Phone Niraula, Lupillo Unavailable Unavailable PROVIDER, UNKNOWN Unavailable Unavailable JEF, OTTONIEL B Unavailable Unavailable Jef, Ottoniel Unavailable Unavailable PROVIDER, UNKNOWN Unavailable Unavailable Brooks, Ottoniel Unavailable Unavailable DOZIER, DEEPIKAH Unavailable Unavailable PROVIDER, UNKNOWN Unavailable Unavailable Brooks, Ottoniel Unavailable Unavailable FIGUEROA, MASROOR Unavailable Unavailable PROVIDER, UNKNOWN Unavailable Unavailable Brooks, Ottoniel Unavailable Unavailable FIGUEROA, MASROOR Unavailable Unavailable PROVIDER, UNKNOWN Unavailable Unavailable Brooks, Ottoniel Unavailable Unavailable Jef, Ottoniel Unavailable Unavailable PROVIDER, UNKNOWN Unavailable Unavailable Jef, Ottoniel Unavailable Unavailable FIGUEROA, MASROOR Unavailable Unavailable PROVIDER, UNKNOWN Unavailable Unavailable Jef, Ottoniel Unavailable Unavailable NIRAULA, LUPILLO Unavailable Unavailable Jef, Ottoniel Unavailable Unavailable Tsivitse Eddi Unavailable Unavailable PROVIDER, UNKNOWN Unavailable Unavailable Brooks, Ottoniel Unavailable Unavailable Jef, Ottoniel Primary Care Provider [phone] DR HANDY KEATING Consulting Unavailable JAYDONERECarlos, DR ANTONIO Cadena Primary Care Unavailable SAMSA ., ALIS Attending Unavailable SAMSA ., ALIS Admitting Unavailable SAMSA ., ALIS Consulting Unavailable SANDEEP, DR ANTONIO Cadena Primary Care Unavailable SANDEEP, DR ANTONIO Cadena Admitting Unavailable SANDEEP, DR ANTONIO Cadena Attending Unavailable SANDEEP, DR ANTONIO Cadena Consulting Unavailable DR HANDY KEATING Consulting Unavailable SANDEEP, DR ANTONIO Cadena Primary Care Unavailable SAMSA ., ALIS Admitting Unavailable SAMSA ., ALIS Attending Unavailable SAMSA ., ALIS Consulting Unavailable ALINA Spencer, DR STOCK Consulting Unavailable SANDEEP, DR ANTONIO Cadena Primary Care Unavailable TAL ., DANNI Admitting Unavailable TAL ., DANNI Attending Unavailable SAMSA ., ALIS Consulting Unavailable ARIANNA CEVALLOS Consulting Unavailable LEATHA, DAMASO Consulting Unavailable SHARP, TERESA Consulting Unavailable TAL ., DANNI Consulting Unavailable TAL II, ANNALISA Consulting Unavailable FILENRIQUEE, DANNI Consulting Unavailable SAMSA ., ALIS Admitting Unavailable DR ANTONIO HOPKINS Primary Care Unavailable SAMSA ., ALIS Attending Unavailable SAMSA ., ALIS Consulting Unavailable SAMSA ., ALIS Admitting Unavailable DR ANTONIO HOPKINS Primary Care Unavailable SAMSA ., ALIS Attending Unavailable SAMSA ., ALIS Consulting Unavailable HOWIE CAMPO Consulting Unavailable GEMBUS, RODRIGUEZ Consulting Unavailable SONIYA NARVAEZ Consulting Unavailable Ottoniel Fuchs MD Primary Care Provider [phone] ANTONIO HOPKINS Primary Care Physician MD Kale Hanna Attending Provider Kale Hanna Attending Unavailable Kale Hanna Admitting Unavailable ISSI, Kale Gonzalez Attending Unavailable ANTONIO HOPKINS Referring Unavailable Kale HANNA Attending Unavailable Kale HANNA Attending Unavailable Antonio Hopkins MD Primary Care Provider Antonio Hopkins MD Unavailable ANTONIO HOPKINS Attending Unavailable SANDEEP, ANTONIO Attending Unavailable ANTONIO HOPKINS Attending Unavailable Allergies Allergy Classification Reported Allergen(s) Allergy Type Date of Onset Reaction(s) Facility (1 source) No Known Medication Allergies; Translations: [No Known Medication Allergies] Propensity to adverse reactions (disorder) [facility] Repository Medications Current Medications Medication Drug Class(es) Dates Sig (Normalized) Sig (Original) [id number] 200 actuat albuterol 0.09 mg/actuat metered dose inhaler (10 sources) beta2-Adrenergic Agonist Start: 07-26-2023 take 2 puff(s) by inhalation every four hours for wheezing albuterol HFA 90 mcg/act inhaler Indications: Bronchiectasis without complication ([facility]) Inhale 2 puffs every 4 (four) hours if needed for wheezing 18 g 3 07/26/2023 Active Start: 04-09-2023 take 2 puff(s) by in halation every four hours Albuterol (Eqv-ProAir HFA) 2 [...] for Wheezing 1 Inhaler 2 09/09/2018 Active End: 03-28-2024 albuterol (2.5 MG/3ML) 0.083 % nebulizer solution Take 2.5 mg by nebulization every 6 (six) hours if needed for wheezing 03/28/2024 Discontinued albuterol 0.833 mg/ml / ipratropium bromide 0.167 mg/ml inhalant solution (1 source) Anticholinergic, beta2-Adrenergic Agonist Start: 09-09-2018 take 3 mL by inhalation every four hours ipratropium-albuterol (DUONEB) 0.5-2.5 (3) MG/3ML SOLN nebulizer solution Indications: Bronchiectasis without complication (HCC) Inhale 3 mLs into the lungs every 4 hours 360 mL 1 09/09/2018 Active amLODIPine 5 mg oral tablet (5 sources) Dihydropyridine Calcium Channel Jovita Start: 07-26-2023 End: 07-25-2024 take 1 tablet by mouth once daily amLODIPine (Norvasc) 5 MG tablet Indications: Essential hypertension, benign (CMS/HCC) Take 1 tablet (5 mg) by mouth Daily 30 tablet 11 07/26/2023 07/25/2024 Active Start: 04-09-2023 take 1 tablet by [facility] once daily amLODIPine 5 mg Tab 5 mg = 1 tab(s), Oral, Daily, Refills(s) 0 Start Date: 04/09/23 Status: Ordered aspirin 81 mg delayed release oral tablet (6 sources) Platelet Aggregation Inhibitor, Nonsteroidal Anti-inflammatory Drug [...] Vitamin D (1 source) Start: 05-21-2010 Calcium Carbon ate-Vitamin D (CALCIUM + D PO) Take by mouth daily 0 05/21/2010 Active fluticasone propionate 0.05 mg/actuat metered dose nasal spray (5 sources) Corticosteroid Start: 04-09-2023 Flonase 0.05 m g/inh Emery 100 mcg, Nasal, Daily, Refill(s) 0 Start Date: 04/09/23 Status: Ordered take 2 spray(s) nasa l route in the morning fluticasone (Flonase) 50 MCG/ACT nasal spray Administer 2 sprays into each nostril in the morning. Shake gently. Before first use, prime pump. After use, clean tip and replace cap.. Active 30 actuat fluticasone furoate 0.1 mg/actuat / umeclidinium 0.0625 mg/actuat / vilanterol 0.025 mg/actuat dry powder inhaler (2 sources) Anticholinergic, Corticosteroid, beta2-Adrenergic Agonist Fluticasone-Umeclidi n-Vilant (Trelegy Ellipta) 100-62.5-25 MCG/ACT aerosol powder Inhale Active 30 actuat fluticasone furoate 0.1 mg/actuat / vilanterol 0.025 mg/actuat dry powder inhaler (6 sources) Corticosteroid, beta2-Adrenergic Agonist Start : 01-10 End: 03-28 take 1 puff(s) by mouth once daily Fluticasone Furoate-Vilanterol (Breo Ellipta) 100-25 MCG/ACT aerosol powder Indications: Bronchiectasis without complication (CMS/HCC) INHALE 1 PUFF BY MOUTH DAILY 60 each 5 01/11/2024 03/28/2024 Discontinued Start: 04-09-2023 take 1 puff(s) by in halation once daily Breo Ellipta 100 mcg-25 mcg inhalation powder 1 puff(s), Inhalation, Daily, Refill(s) 2 Start Date: 04/09/23 Status: Ordered Start: 08-09-2019 take 1 puff(s) by in halation once daily fluticasone-vilanterol (BREO ELLIPTA) 100-25 MCG/INH AEPB inhaler Indications: Panlobular emphysema (HCC) Inhale 1 puff into the lungs daily 180 each 3 08/09/2019 Active levothyroxine sodium 0.112 mg oral tablet (6 sources) l-Thyroxine Start: 07-26-2023 End: 07-25-2024 take 1 tablet by mouth before mealtime levothyroxine (Synthroid, Levoxyl) 112 MCG tablet Indications: Postoperative hypothyroidism (CMS/HCC) Take 1 tablet (112 mcg) by mouth in the morning. Take before meals. 30 tablet 11 07/26/2023 07/25/2024 Active Start: 04-09-2023 take 1 tablet by [facility] once daily levothyroxine 112 mcg (0.112 mg) Tab 112 mcg = 1 tab(s), Oral, Daily, Refills(s) 0 Start Date: 04/09/23 Status: Ordered Start: 08-09-2019 take 1 tablet by [facility] once daily levothyroxine (SYNTHROID) 112 MCG tablet Indications: Postoperative hypothyroidism Take 1 tablet by mouth Daily 90 tablet 3 08/09/2019 Active losartan potassium 50 mg oral tablet (6 sources) Angiotensin 2 Receptor Jovita Start: 07-26-2023 End: 07-25-2024 take 1 tablet by mouth once daily losartan (Cozaar) 50 MG tablet Indications: Essential hypertension, benign (CMS/HCC) Take 1 tablet (50 mg) by mouth Daily 30 tablet 11 07/26/2023 07/25/2024 Active Start: 04-09-2023 take 1 tablet by [facility] once daily losartan 50 mg Tab 50 mg = 1 tab(s), Oral, Daily, Refills(s) 0 Start Date: 04/09/23 Status: Ordered Start: 08-09-2019 take 1 tablet by [facility] once daily losartan (COZAAR) 50 MG tablet Indications: HTN (hypertension), benign Take 1 tablet by mouth daily 90 tablet 3 08/09/2019 Active Multiple Vitamin (MULTI-DAY PO) (4 sources) Multiple Vitamin (MULTI-DAY PO) Take by mouth Active Multiple Vitamin TABS (1 source) take 1 tablet by mouth once daily Multiple Vitamin TABS Take 1 tablet by mouth daily 0 Active Multivitamin preparation (1 source) Start: 04-09-2023 take 1 tablet by mouth once daily multivitamin 1 tab, Oral, Daily, Refill(s) 0 Start Date: 04/09/23 Status: Ordered sodium chloride 9 mg/ml inhalation solution (4 sources) sodium chloride 0.9 % nebulizer solution Take 3 mL by nebulization if needed for wheezing Active sodium chloride 0.9% Inj 10 mL Vial (1 source) Start: 04-09-2023 sodium chloride 0.9% Inj 10 mL Vial 1 inh, NEB, TID, Refill(s) 0 Start Date: 04/09/23 Status: Ordered Problems Active Problems Problem Classification Problem Date Documented Date Episodic/Chronic Chronic obstructive pulmonary disease and bronchiectasis (20 sources) Emphysema, unspecified; Translations: [Bronchiectasis, uncomplicated] Onset: 12-25-2016 12-25-2016 Chronic Complications of surgical procedures or medical care (8 sources) Postprocedural hypothyroidism; Translations: [Postoperative hypothyroidism] Onset: 12-13-2014 12-25-2015 Chronic Coronary atherosclerosis and other heart disease (2 sources) Atherosclerotic heart disease of [place] coronary artery without angina pectoris; Translations: [Athscl heart disease of [place] coronary artery w/o ang pctrs] Onset: 03-08-2018 Chronic Deficiency and other anemia (2 sources) Anemia, unspecified; Translations: [Anemia, unspecified] Onset: 04-04-2018 Episodic Esophageal disorders (1 source) Gastro-esophageal reflux disease without esophagitis; Translations: [GERD WITHOUT ESOPHAGITIS] Onset: 04-01-2022 Chronic Essential hypertension (10 sources) Essential (primary) hypertension; Translations: [Benign hypertension] Onset: 12-25-2015 12-25-2015 Chronic Menopausal disorders (1 source) Hormone replacement therapy; Translations: [HORMONE REPLACEMENT THERAPY] Onset: 09-22-2022 Episodic Other aftercare (1 source) half-way (current) use of aspirin; Translations: [CARE HOME CURRENT USE OF ASPIRIN] Onset: 09-22-2022 Episodic Other aftercare (5 sources) Other termite exterminator (current) drug therapy; Translations: [OTH ASSEMBLING FABRICATOR CURRENT DRUG THERAPY] Onset: 10-30-2021 Episodic Other [...] disorders (1 source) Obesity 04-21-2023 Chronic Other upper respiratory disease (4 sources) Allergic rhinitis due to pollen; Translations: [Allergic rhinitis due to pollen] Onset: 09-27-2023 09-27-2023 Chronic Residual codes; unclassified (2 sources) Asymptomatic menopausal [...] Da te Episodic/Chronic Diabetes mellitus without complication (6 sources) Prediabetes; Translations: [Prediabetes] Onset: 12-29-2018 12-29-2018 Episodic Mood disorders (2 sources) Mood disorders Onset: 03-28-2024 03-28-2024 Other aftercare (4 sources) Long-term current use of drug therapy; Translations: [Other senior living (current) drug therapy] Onset: 04-01-2023 04-01-2023 Episodic Other bone disease and musculoskeletal deformities (4 sources) Osteopenia; Translations: [Other specified disorders of bone density and structure, unspecified site] Onset: 07-03-2015 04-01-2023 Episodic Other injuries and conditions due to external causes (1 source) Other foreign object in bronchus causing asphyxiation, initial encounter; Translations: [OTH FOREGN OBJ BRON ASPHYX INIT ENC] Onset: 04-01-2022 Episodic Other lower respiratory disease (2 sources) Cough; Translations: [Cough] Onset: 08-14-2017 Episodic Other lower respiratory disease (1 source) Lung mass; Translations: [Lung nodule] Onset: 12-25-2016 09-03-2017 Episodic Other lower respiratory disease (5 sources) Nodule of lung; Translations: [Solitary pulmonary nodule] Onset: 09-03-2017 02-08-2022 Episodic Other screening for suspected conditions (not mental disorders or infectious disease) (7 sources) Encounter for screening mammogram for malignant neoplasm of breast; Translations: [Screening for malignant neoplasm of colon done] Onset: 02-22-2018 Episodic Poisoning by other medications and drugs (1 source) Angiotensin-conver ting-enzyme inhibitor adverse reaction; Translations: [CARYL-inhibitor cough] Onset: 12-13-2014 Resolved: 12-25-2016 12-25-2016 Episodic Results Test Name Value Interpretation Reference Range Facility ALL HEMOGLOBINon 01-31-2024 Hemoglobin (Bld) [Mass/Vol] 14.6 g/dL 12.0 - 16.0 g/dL [facility]IN[facility] General Surgery Office/Clini c Noteon 06-14-2023 General [...] 1 puff(s), Inhalation, Daily Flonase 0.05 mg/inh Emery, 100 mcg, Nasal, Daily levothyroxine 112 mcg [...] 02/04/2021 Recorded 2023-04-09: [id number] patient seen 06/04/2023 [facility] Comment on above: Result Comment: Elec tronically Signed By: ISIS ALCANTAR, Kale Gonzalez\.br\Date and Time Signed: 06/14/23 16:34 EST Ambulatory Visit Summaryon 0 06-04-2023 Ambulatory Visit Summary AKIL CHACON :1955 Visit Date:06/04/2023 Ambulatory Visit Instructions Your Care Team Attending Physician - ISIS ALCANTAR, Kale Gonzalez Primary Care Physician - ANTONIO HOPKINS MD This Is Your Medications List albuterol (Albuterol (Eqv-ProAir HFA)) amlodipine (amLODIPine 5 mg Tab) aspirin (aspirin 81 mg Oral EC Tab) fluticasone nasal (Flonase 0.05 mg/inh Emery) fluticasone-vilantero l (Breo Ellipta 100 mcg-25 mcg [...] Unchanged fluticasone nasal (Flonase 0.05 mg/ inh Emery) 100 Microgram Nasal Inhalation Every day Unchanged [...] you for choosing us for your care. [facility] Reminderson 06-04-2023 Reminders - From: Tamia Price LPN To: N - Clinical; Sent: 06/04/2023 14:05:05 EST Show up: 04/11/2033 07:00:00 EST Subject: colonoscopy recall Due Date/Time: 05/12/2033 07:00:00 EST Reminder/Recall Patient due for screening colonoscopy 05/12/2033. [facility] Outside Colonoscopyon 2023 Outside Colonoscopy [id number] .00TIFF [facility] Pathology Noteon 05-20-2023 Pathology Note [id number]#1. 00TIFF [facility] Matthieu 05-12-2023 L Specimen: [id number] Received: 05/12/23 Status: SOUT Re Num: [id number] Spec Type: Surgical Subm Dr: Kale Hanna MD FACS Tissues: A Colon Biopsy (SIGMOID POLYP) Procedures: HE/2, Gross/Micro L4 Age/ Patient Sex Location Account Attending Physician Akil Chacon 67/F [facility] [id number] Kale Hanna MD FACS SPEC NUM: [id number] RECD: 05/12/23 STATUS: BILLY OVIEDO NUM: [id number] DONIS: 05/12/[address] [facility] [address]: Kale Hanna MD FACS ENTERED: 05/12/[address] [facility] [address]: Tania Nam SPEC TYPE: Surgical DEPT: [...] in one cassette labeled A1. CPT Codes 46816 -------- -------- Specimen: [id number] Received: 05/12/23 Status: BILLY Oviedo Num: [id number] Spec Type: Surgical Subm Dr: Kale Hanna MD FACS Tissues: A Colon Biopsy (SIGMOID POLYP) Procedures: HE/2, Gross/Micro L4 -------- Patient: Akil Chacon [id number] (Continued) -------- Signed (signature on file) Renato-Ed Marquez MD 05/14/23 0853 [facility] Insurance Correspondenceon 0 05-05-2023 Insurance Correspondence [id number] .00TIFF [facility] Consent for Procedure/Surger yon 04-23-2023 Consent for Procedure/Surgery [id number] .00TIFF [facility] Facesheeton 04-22-2023 Facesheet [id number]# 1.00TIFF [facility] Ambulatory Visit Summaryon 1 06-22-2022 Ambulatory Visit Summary AKIL CHACON :1955 Visit Date:04/21/2023 Ambulatory Visit Instructions Your Diagnosis Screening for malignant neoplasm of colon Your Care Team Attending Physician - ISIS ALCANTAR, Kale Gonzalez Primary Care Physician - SANDEEP ALCANTAR, ANTONIO Referring Physician - SANDEEP ALCANTAR, ANTONIO This Is Your Medications List Contact prescribing physician if questions or concerns albuterol (Albuterol (Eqv-ProAir HFA)) amlodipine (amLODIPine 5 mg Tab) aspirin (aspirin 81 mg Oral EC Tab) fluticasone nasal (Flonase 0.05 mg/inh Emery) fluticasone-vilantero l (Breo Ellipta 100 mcg-25 mcg [...] Unchanged fluticasone nasal (Flonase 0.05 mg/ inh Emery) 100 Microgram Nasal Inhalation Every day Contact [...] for choosing us for your care. Normal [facility] Transfer Inon 04-06-2023 Transfer In [id number] .00TIFF Normal [facility] Physician Referralon 023 Physician Referral [id number] .00TIFF Normal [facility] CBC AUTO DIFFon 09-23-2022 BASO # 0.0 103/ul Normal 0.0-0.1 [facility] Comment on above: Performed By: #### C YTO #### [facility] [address] [place] [address] Dr. Jayy Marquez Basophils/100 WBC (Bld) 0.4 % Normal 0.2-2.0 [facility] Comment on above: Performed By: #### C YTO #### [facility] [address] [place] [address] Dr. Jayy Marquez EO # 0.1 103/ul Normal 0.0-0.7 [facility] Comment on above: Performed By: #### C YTO #### [facility] [address] [place] [address] Dr. Jayy Marquez Eosinophils/100 WBC (Bld) 0.5 % Critically low 0.9-7.0 [facility] Comment on above: Performed By: #### C YTO #### [facility] [address] [place] [address] Dr. Jayy Marquez Erythrocyte distribution width (RBC) [Ratio] 13.1 % Normal 11.0-15.0 [facility] Comment on above: Performed By: #### C YTO #### [facility] [address] [place] [address] Dr. Jayy Marquez Hematocrit (Bld) [Volume fraction] 43.0 % Normal 36.0-48.0 [facility] Comment on above: Performed By: #### C YTO #### [facility] [address] [place] [address] Dr. Jayy Marquez Hemoglobin (Bld) [Mass/Vol] 13.9 g/dL Normal 12.0-16.0 [facility] Comment on above: Performed By: #### C YTO #### [facility] [address] [place] [address] Dr. Jayy Marquez IG # 0.04 10e3/ul Critically high 0.00-0.03 [facility] Comment on above: Performed By: #### C YTO #### [facility] [address] [place] [address] Dr. Jayy Marquez IG % 0.4 % Normal 0.0-0.5 [facility] Comment on above: Performed By: #### C YTO #### [facility] [address] [place] [address] Dr. Jayy Marquez LYMPH # 0.7 103/ul Critically low 1.2-3.8 [facility] Comment on above: Performed By: #### C YTO #### [facility] [address] [place] [address] Dr. Jayy Marquez Lymphocytes/100 WBC (Bld) 6.7 % Critically low 20.5-60.0 [facility] Comment on above: Performed By: #### C YTO #### [facility] [address] [place] [address] Dr. Jayy Marquez MANUAL DIFF REQ NO Normal [facility] Comment on above: Performed By: #### C YTO #### [facility] [address] [place] [address] Dr. Jayy Marquez MCH (RBC) [Entitic mass] 31.2 pg Normal 26.7-34.0 [facility] Comment on above: Performed By: #### C YTO #### [facility] [address] [place] [address] Dr. Jayy Marquez MCHC (RBC) [Mass/Vol] 32.3 g/dL Normal 29.9-35.2 [facility] Comment on above: Performed By: #### C YTO #### [facility] [address] [place] [address] Dr. Jayy Marquez MCV (RBC) [Entitic vol] 96.4 fL Normal 81.0-99.0 [facility] Comment on above: Performed By: #### C YTO #### [facility] [address] [place] [address] Dr. Jayy Marquez MONO # 0.9 103/ul Critically high 0.3-0.8 [facility] Comment on above: Performed By: #### C YTO #### [facility] [address] [place] [address] Dr. Jayy Marquez Monocytes/100 WBC (Bld) 8.2 % Normal 1.7-12.0 [facility] Comment on above: Performed By: #### C YTO #### [facility] [address] [place] [address] Dr. Jayy Marquez NEUT # 9.0 103/ul Critically high 1.4-6.5 [facility] Comment on above: Performed By: #### C YTO #### [facility] [address] [place] [address] Dr. Jayy Marquez Neutrophils/100 WBC (Bld) 83.8 % Critically high 43.0-75.0 [facility] Comment on above: Performed By: #### C YTO #### [facility] [address] [place] [address] Dr. Jayy Marquez Platelet mean volume (Bld) [Entitic vol] 10.4 fL Normal 9.5-13.5 [facility] Comment on above: Performed By: #### C YTO #### [facility] [address] [place] [address] Dr. Jayy Marquez PLT 232 103/ul Normal 150-450 [facility] Comment on above: Performed By: #### C YTO #### [facility] [address] [place] [address] Dr. Jayy Marquez RBC 4.46 106/ul Normal 4.20-5.40 [facility] Comment on above: Performed By: #### C YTO #### [facility] [address] [place] [address] Dr. Jayy Marquez WBC 10.7 103/ul Normal 4.0-11.0 [facility] Comment on above: Performed By: #### C YTO #### [facility] [address] [place] [address] Dr. Jayy Marquez PROF CHEM 8 (BAS METB)on Anion gap [Moles/Vol] 13.4 mmol/L Normal [facility] Comment on above: Performed By: #### B MP #### [facility] [address] [place] [address] Dr. Jayy Marquez Calcium [Mass/Vol] 9.1 mg/dL Normal 8.5-10.1 [facility] Comment on above: Performed By: #### B MP #### [facility] [address] [place] [address] Dr. Jayy Marquez Chloride [Moles/Vol] 100 mmol/L Normal 98-107 [facility] Comment on above: Performed By: #### B MP #### [facility] [address] [place] [address] Dr. Jayy Marquez CO2 [Moles/Vol] 27.2 mmol/L Normal 21.0-32.0 [facility] Comment on above: Performed By: #### B MP #### [facility] [address] [place] [address] Dr. Jayy Marquez Creatinine [Mass/Vol] 0.77 mg/dL Normal 0.55-1.02 [facility] Comment on above: Performed By: #### B MP #### [facility] [address] [place] [address] Dr. Jayy Marquez EGFR-AF SYRIAN >60 Normal >=60 [facility] Comment on above: Performed By: #### B MP #### [facility] [address] [place] [address] Dr. Jayy Marquez EGFR-NON AF SYRIAN >60 Normal >=60 [facility] Comment on above: Performed By: #### B MP #### [facility] [address] [place] [address] Dr. Jayy Marquez Glucose [Mass/Vol] 173 mg/dL Critically high 74-106 T [facility] Comment on above: Performed By: #### B MP #### [facility] [address] [address] [address] Jayy Marquez Potassium [Moles/Vol] 4.6 mmol/L Normal 3.5-5.1 [facility] Comment on above: Performed By: #### B MP #### [facility] [address] [address] [address] Jayy Marquez Sodium [Moles/Vol] 136 mmol/L Normal 136-145 [facility] Comment on above: Performed By: #### B MP #### [facility] [address] [address] [address] Jayy Marquez Urea nitrogen [Mass/Vol] 16.0 mg/dL Normal 7.0-18.0 [facility] Comment on above: Performed By: #### B MP #### [facility] [address] [address] [address] Jayy Marquez Urea nitrogen/Creatinine [Mass ratio] 20.8 mg/mg Normal [facility] Comment on above: Performed By: #### B MP #### [facility] [address] [address] [address] Jayy Marquez XR CHEST 1 Von [...] ELENO FUENTES Date: 2022-09-23 14:29 Normal [facility] BNPon 09-22-2022 Natriuretic peptide B (Bld) [Mass/Vol] 243.0 pg/mL Normal <=900.0 [facility] Comment on above: Performed By: #### B MP, BNP, HSTROPN #### [facility] [address] [address] [address] Jayy Marquez CBC AUTO DIFFon 09-22-2022 BASO # 0.0 103/ul Normal 0.0-0.1 [facility] Comment on above: Performed By: #### C VDAGS #### [facility] [address] [place] [address] Dr. Jayy Marquez Basophils/100 WBC (Bld) 0.4 % Normal 0.2-2.0 [facility] Comment on above: Performed By: #### C VDAGS #### [facility] [address] [place] [address] Dr. Jayy Marquez EO # 0.0 103/ul Normal 0.0-0.7 [facility] Comment on above: Performed By: #### C VDAGS #### [facility] [address] [place] [address] Dr. Jayy Marquez Eosinophils/100 WBC (Bld) 0.0 % Critically low 0.9-7.0 [facility] Comment on above: Performed By: #### C VDAGS #### [facility] [address] [place] [address] Dr. Jayy Marquez Erythrocyte distribution width (RBC) [Ratio] 13.1 % Normal 11.0-15.0 [facility] Comment on above: Performed By: #### C VDAGS #### [facility] [address] [place] [address] Dr. Jayy Marquez Hematocrit (Bld) [Volume fraction] 42.7 % Normal 36.0-48.0 [facility] Comment on above: Performed By: #### C VDAGS #### [facility] [address] [place] [address] Dr. Jayy Marquez Hemoglobin (Bld) [Mass/Vol] 13.9 g/dL Normal 12.0-16.0 [facility] Comment on above: Performed By: #### C VDAGS #### [facility] [address] [place] [address] Dr. Jayy Marquez IG # 0.03 10e3/ul Normal 0.00-0.03 [facility] Comment on above: Performed By: #### C VDAGS #### [facility] [address] [place] [address] Dr. Jayy Marquez IG % 0.4 % Normal 0.0-0.5 [facility] Comment on above: Performed By: #### C VDAGS #### [facility] [address] [place] [address] Dr. Jayy Marquez LYMPH # 0.4 103/ul Critically low 1.2-3.8 [facility] Comment on above: Performed By: #### C VDAGS #### [facility] [address] [place] [address] Dr. Jayy Marquez Lymphocytes/100 WBC (Bld) 5.5 % Critically low 20.5-60.0 [facility] Comment on above: Performed By: #### C VDAGS #### [facility] [address] [place] [address] Dr. Jayy Marquez MANUAL DIFF REQ NO Normal [facility] Comment on above: Performed By: #### C VDAGS #### [facility] [address] [place] [address] Dr. Jayy Marquez MCH (RBC) [Entitic mass] 31.2 pg Normal 26.7-34.0 [facility] Comment on above: Performed By: #### C VDAGS #### [facility] [address] [place] [address] Dr. Jayy Marquez MCHC (RBC) [Mass/Vol] 32.6 g/dL Normal 29.9-35.2 [facility] Comment on above: Performed By: #### C VDAGS #### [facility] [address] [place] [address] Dr. Jayy Marquez MCV (RBC) [Entitic vol] 96.0 fL Normal 81.0-99.0 [facility] Comment on above: Performed By: #### C VDAGS #### [facility] [address] [place] [address] Dr. Jayy Marquez MONO # 0.3 103/ul Normal 0.3-0.8 [facility] Comment on above: Performed By: #### C VDAGS #### [facility] [address] [place] [address] Dr. Jayy Marquez Monocytes/100 WBC (Bld) 3.5 % Normal 1.7-12.0 [facility] Comment on above: Performed By: #### C VDAGS #### [facility] [address] [place] [address] Dr. Jayy Marquez NEUT # 6.9 103/ul Critically high 1.4-6.5 [facility] Comment on above: Performed By: #### C VDAGS #### [facility] [address] [place] [address] Dr. Jayy Marquez Neutrophils/100 WBC (Bld) 90.2 % Critically high 43.0-75.0 [facility] Comment on above: Performed By: #### C VDAGS #### [facility] [address] [place] [address] Dr. Jayy Marquez Platelet mean volume (Bld) [Entitic vol] 9.8 fL Normal 9.5-13.5 [facility] Comment on above: Performed By: #### C VDAGS #### [facility] [address] [place] [address] Dr. Jayy Marquez PLT 207 103/ul Normal 150-450 [facility] Comment on above: Performed By: #### C VDAGS #### [facility] [address] [place] [address] Dr. Jayy Marquez RBC 4.45 106/ul Normal 4.20-5.40 [facility] Comment on above: Performed By: #### C VDAGS #### [facility] [address] [place] [address] Dr. Jayy Marquez WBC 7.6 103/ul Normal 4.0-11.0 [facility] Comment on above: Performed By: #### C VDAGS #### [facility] [address] [place] [address] Dr. Jayy Marquez BASO # 0.0 103/ul Normal 0.0-0.1 [facility] Comment on above: Performed By: #### C BC #### [facility] [address] [place] [address] Dr. Jayy Marquez Basophils/100 WBC (Bld) 0.4 % Normal 0.2-2.0 [facility] Comment on above: Performed By: #### C BC #### [facility] [address] [place] [address] Dr. Jayy Marquez EO # 0.1 103/ul Normal 0.0-0.7 [facility] Comment on above: Performed By: #### C BC #### [facility] [address] [place] [address] Dr. Jayy Marquez Eosinophils/100 WBC (Bld) 1.4 % Normal 0.9-7.0 [facility] Comment on above: Performed By: #### C BC #### [facility] [address] [place] [address] Dr. Jayy Marquez Erythrocyte distribution width (RBC) [Ratio] 13.2 % Normal 11.0-15.0 [facility] Comment on above: Performed By: #### C BC #### [facility] [address] [place] [address] Dr. Jayy Marquez Hematocrit (Bld) [Volume fraction] 45.5 % Normal 36.0-48.0 [facility] Comment on above: Performed By: #### C BC #### [facility] [address] [place] [address] Dr. Jayy Marquez Hemoglobin (Bld) [Mass/Vol] 15.3 g/dL Normal 12.0-16.0 [facility] Comment on above: Performed By: #### C BC #### [facility] [address] [place] [address] Dr. Jayy Marquez IG # 0.03 10e3/ul Normal 0.00-0.03 [facility] Comment on above: Performed By: #### C BC #### [facility] [address] [place] [address] Dr. Jayy Marquez IG % 0.3 % Normal 0.0-0.5 [facility] Comment on above: Performed By: #### C BC #### [facility] [address] [place] [address] Dr. Jayy Marquez LYMPH # 1.3 103/ul Normal 1.2-3.8 [facility] Comment on above: Performed By: #### C BC #### [facility] [address] [place] [address] Dr. Jayy Marquez Lymphocytes/100 WBC (Bld) 13.8 % Critically low 20.5-60.0 [facility] Comment on above: Performed By: #### C BC #### [facility] [address] [place] [address] Dr. Jayy Marquez MANUAL DIFF REQ NO Normal [facility] Comment on above: Performed By: #### C BC #### [facility] [address] [place] [address] Dr. Jayy Marquez MCH (RBC) [Entitic mass] 32.0 pg Normal 26.7-34.0 [facility] Comment on above: Performed By: #### C BC #### [facility] [address] [place] [address] Dr. Jayy Marquez MCHC (RBC) [Mass/Vol] 33.6 g/dL Normal 29.9-35.2 [facility] Comment on above: Performed By: #### C BC #### [facility] [address] [place] [address] Dr. Jayy Marquez MCV (RBC) [Entitic vol] 95.2 fL Normal 81.0-99.0 [facility] Comment on above: Performed By: #### C BC #### [facility] [address] [place] [address] Dr. Jayy Marquez MONO # 1.3 103/ul Critically high 0.3-0.8 [facility] Comment on above: Performed By: #### C BC #### [facility] [address] [place] [address] Dr. Jayy Marquez Monocytes/100 WBC (Bld) 13.7 % Critically high 1.7-12.0 [facility] Comment on above: Performed By: #### C BC #### [facility] [address] [place] [address] Dr. Jayy Marquez NEUT # 6.7 103/ul Critically high 1.4-6.5 [facility] Comment on above: Performed By: #### C BC #### [facility] [address] [place] [address] Dr. Jayy Marquez Neutrophils/100 WBC (Bld) 70.4 % Normal 43.0-75.0 [facility] Comment on above: Performed By: #### C BC #### [facility] [address] [place] [address] Dr. Jayy Marquez Platelet mean volume (Bld) [Entitic vol] 9.6 fL Normal 9.5-13.5 [facility] Comment on above: Performed By: #### C BC #### [facility] [address] [place] [address] Dr. Jayy Marquez PLT 218 103/ul Normal 150-450 [facility] Comment on above: Performed By: #### C BC #### [facility] [address] [place] [address] Dr. Jayy Marquez RBC 4.78 106/ul Normal 4.20-5.40 [facility] Comment on above: Performed By: #### C BC #### [facility] [address] [place] [address] Dr. Jayy Marquez WBC 9.5 103/ul Normal 4.0-11.0 [facility] Comment on above: Performed By: #### C BC #### [facility] [address] [place] [address] Dr. Jayy Marquez PROF CHEM 8 (BAS METB)on Anion gap [Moles/Vol] 11.3 mmol/L Normal [facility] Comment on above: Performed By: #### B MP #### [facility] [address] [place] [address] Dr. Jayy Marquez Calcium [Mass/Vol] 8.7 mg/dL Normal 8.5-10.1 [facility] Comment on above: Performed By: #### B MP #### [facility] [address] [place] [address] Dr. Jayy Marquez Chloride [Moles/Vol] 100 mmol/L Normal 98-107 [facility] Comment on above: Performed By: #### B MP #### [facility] [address] [address] [address] Jayy Marquez CO2 [Moles/Vol] 27.6 mmol/L Normal 21.0-32.0 [facility] Comment on above: Performed By: #### B MP #### [facility] [address] [address] [address] Jayy Marquez Creatinine [Mass/Vol] 0.82 mg/dL Normal 0.55-1.02 [facility] Comment on above: Performed By: #### B MP #### [facility] [address] [address] [address] Jayy Marquez EGFR-AF SYRIAN >60 Normal >=60 [facility] Comment on above: Performed By: #### B MP #### [facility] [address] [address] [address] Jayy Marquez EGFR-NON AF SYRIAN >60 Normal >=60 [facility] Comment on above: Performed By: #### B MP #### [facility] [address] [address] [address] Jayy Marquez Glucose [Mass/Vol] 203 mg/dL Critically high 74-[address] [facility] Comment on above: Performed By: #### B MP #### [facility] [address] [place] [address] Dr. Jayy Marquez Potassium [Moles/Vol] 3.9 mmol/L Normal 3.5-5.1 [facility] Comment on above: Performed By: #### B MP #### [facility] [address] [address] [address] Jayy Marquez Sodium [Moles/Vol] 135 mmol/L Critically low 136-145 Th [facility] Comment on above: Performed By: #### B MP #### [facility] [address] [address] [address] Jayy Marquez Urea nitrogen [Mass/Vol] 11.0 mg/dL Normal 7.0-18.0 [facility] Comment on above: Performed By: #### B MP #### [facility] [address] [address] [address] Jayy Marquez Urea nitrogen/Creatinine [Mass ratio] 13.4 mg/mg Normal [facility] Comment on above: Performed By: #### B MP #### [facility] [address] [address] [address] Jayy Marquez Anion gap [Moles/Vol] 12.9 mmol/L Normal [facility] Comment on above: Performed By: #### C YTO #### [facility] [address] [address] [address] Jayy Marquez Calcium [Mass/Vol] 9.2 mg/dL Normal 8.5-10.1 [facility] Comment on above: Performed By: #### C YTO #### [facility] [address] [place] [address] Dr. Jayy Marquez Chloride [Moles/Vol] 98 mmol/L Normal 98-107 [facility] Comment on above: Performed By: #### C YTO #### [facility] [address] [place] [address] Dr. Jayy Marquez CO2 [Moles/Vol] 25.8 mmol/L Normal 21.0-32.0 [facility] Comment on above: Performed By: #### C YTO #### [facility] [address] [place] [address] Dr. Jayy Marquez Creatinine [Mass/Vol] 0.90 mg/dL Normal 0.55-1.02 [facility] Comment on above: Performed By: #### C YTO #### [facility] [address] [place] [address] Dr. Jayy Marquez EGFR-AF SYRIAN >60 Normal >=60 [facility] Comment on above: Performed By: #### C YTO #### [facility] [address] [place] [address] Dr. Jayy Marquez EGFR-NON AF SYRIAN >60 Normal >=60 [facility] Comment on above: Performed By: #### C YTO #### [facility] [address] [place] [address] Dr. Jayy Marquez Glucose [Mass/Vol] 150 mg/dL Critically high 74-106 T [facility] Comment on above: Performed By: #### C YTO #### [facility] [address] [place] [address] Dr. Jayy Marquez Potassium [Moles/Vol] 3.7 mmol/L Normal 3.5-5.1 [facility] Comment on above: Performed By: #### C YTO #### [facility] [address] [place] [address] Dr. Jayy Marquez Sodium [Moles/Vol] 133 mmol/L Critically low 136-145 Th e [facility] Comment on above: Performed By: #### C YTO #### [facility] [address] [place] [address] Dr. Jayy Marquez Urea nitrogen [Mass/Vol] 14.0 mg/dL Normal 7.0-18.0 [facility] Comment on above: Performed By: #### C YTO #### [facility] [address] [place] [address] Dr. Jayy Marquez Urea nitrogen/Creatinine [Mass ratio] 15.6 mg/mg Normal [facility] Comment on above: Performed By: #### C YTO #### [facility] [address] [place] [address] Dr. Jayy Marquez RESPIRATORY PANEL PLUSon Adenovirus Not detected Normal NOT DETECTED [facility] Comment on above: Performed By: #### C VDAGS #### [facility] [address] [place] [address] Dr. Jayy Marquez B. Parapertusis Not detected Normal NOT DETECTED [facility] Comment on above: Performed By: #### C VDAGS #### [facility] [address] [place] [address] Dr. Jayy Marquez B. Pertussis Not detected Normal NOT DETECTED [facility] Comment on above: Performed By: #### C VDAGS #### [facility] [address] [place] [address] Dr. Jayy Marquez Chlamydia Pneumoniae Not detected Normal NOT DETECTED [facility] Comment on above: Performed By: #### C VDAGS #### [facility] [address] [address] [address] Jayy Marquez Coronavirus 229E Not detected Normal NOT DETECTED [facility] Comment on above: Performed By: #### C VDAGS #### [facility] [address] [place] [address] Dr. Jayy Marquez Coronavirus HKU1 Not detected Normal NOT DETECTED [facility] Comment on above: Performed By: #### C VDAGS #### [facility] [address] [place] [address] Dr. Jayy Marquez Coronavirus NL63 Not detected Normal NOT DETECTED [facility] Comment on above: Performed By: #### C VDAGS #### [facility] [address] [place] [address] Dr. Jayy Marquez Coronavirus OC43 Not detected Normal NOT DETECTED [facility] Comment on above: Performed By: #### C VDAGS #### [facility] [address] [place] [address] Dr. Jayy Marquez Influenza A H1 Not detected Normal NOT DETECTED [facility] Comment on above: Performed By: #### C VDAGS #### [facility] [address] [place] [address] Dr. Jayy Marquez Influenza A H1 2009 Not detected Normal NOT DETECTED [facility] Comment on above: Performed By: #### C VDAGS #### [facility] [address] [place] [address] Dr. Jayy Marquez Influenza A H3 Not detected Normal NOT DETECTED [facility] Comment on above: Performed By: #### C VDAGS #### [facility] [address] [place] [address] Dr. Jayy Marquez Influenza B Not detected Normal NOT DETECTED [facility] Comment on above: Performed By: #### C VDAGS #### [facility] [address] [place] [address] Dr. Jayy Marquez Metapneumovirus Not detected Normal NOT DETECTED [facility] Comment on above: Performed By: #### C VDAGS #### [facility] [address] [place] [address] Dr. Jayy Marquez Mycoplas. Pneumoniae Not detected Normal NOT DETECTED [facility] Comment on above: Performed By: #### C VDAGS #### [facility] [address] [address] [address] Jayy Marquez Parainfluenza 1 Not detected Normal NOT DETECTED [facility] Comment on above: Performed By: #### C VDAGS #### [facility] [address] [place] [address] Dr. Jayy Marquez Parainfluenza 2 Not detected Normal NOT DETECTED [facility] Comment on above: Performed By: #### C VDAGS #### [facility] [address] [place] [address] Dr. Jayy Marquez Parainfluenza 3 Not detected Normal NOT DETECTED [facility] Comment on above: Performed By: #### C VDAGS #### [facility] [address] [place] [address] Dr. Jayy Marquez Parainfluenza 4 Not detected Normal NOT DETECTED [facility] Comment on above: Performed By: #### C VDAGS #### [facility] [address] [place] [address] Dr. Jayy Marquez Rhino/Enterovirus Not detected Normal NOT DETECTED [facility] Comment on above: Performed By: #### C VDAGS #### [facility] [address] [place] [address] Dr. Jayy Marquez RP2 Header 1 RESPIRATORY PANEL: VIRUSES Normal [facility] Comment on above: Performed By: #### C VDAGS #### [facility] [address] [place] [address] Dr. Jayy Marquez RP2 Header 2 RESPIRATORY PANEL: BACTERIA Normal [facility] Comment on above: Performed By: #### C VDAGS #### [facility] [address] [place] [address] Dr. Jayy Marquez RSV Not detected Normal NOT DETECTED [facility] Comment on above: Performed By: #### C VDAGS #### [facility] [address] [place] [address] Dr. Jayy Marquez SARS-CoV-2 (COVID-19) RNA SILVINO+probe Ql (Unsp spec) Not detected Normal NOT DETECTED [facility] Comment on above: Performed By: #### C VDAGS #### [facility] [address] [place] [address] Dr. Jayy Marquez SYMPTOMATIC COVID-19 ANTIGEN on 09-22-2022 EUA Statement SEE BELOW Normal [facility] Comment on above: Result Comment: [...] sooner. Performed By: #### C VDAGS #### [facility] [address] [place] [address] Dr. Jayy Marquez SARS-CoV-2 (COVID-19) RNA SILVINO+probe Ql (Unsp spec) Negative Normal NEGATIVE [facility] Comment on above: Performed By: #### C VDAGS #### [facility] [address] [place] [address] Dr. Jayy Marquez TROPONIN, HIGH SENSITIVITYon 09-22-2022 HSTROP 12.9 pg/mL Normal 4.0-51.3 [facility] Comment on above: Result Comment: CUT- OFF POINTS HAVE BEEN ESTABLISHED BASED ON THE FOURTH UNIVERSAL DEFINITIONS OF MYOCARDIAL INFARCTION. THE UPPER REFERENCE LIMIT (URL) OF TROPONIN, DEFINED THE 99TH PERCENTILE OF cTnI DISTRIBUTION IN A REFERENCE POPULATION, HAS BEEN CONFIRMED THE DECISION THRESHOLD FOR WA DIAGNOSIS. Performed By: #### B MP, BNP, HSTROPN #### [facility] [address] [address] [address] Jayy Marquez XR CHEST 1 Von [...] ARIANNA CEVALLOS Date: 2022-09-22 00:51 Normal [facility] CT CHEST WO CONon 09-01-2022 CT [...] HANDY KEATING Date: 2022-09-01 15:28 Normal [facility] ACID FAST SMEAR AND CXon Acid Fast Culture Negative Normal The [facility] Comment on above: Result Comment: No a goyo fast bacilli isolated after 6 weeks. Performed By: #### A FB #### [facility] [address] [place] [address] Dr. Jayy Marquez Performed By: #### C VDAGS #### [facility] [address] [place] [address] Dr. Jayy Marquez Acid Fast Smear Negative Normal [facility] Comment on above: Performed By: #### A FB #### [facility] [address] [place] [address] Dr. Jayy Marquez Performed By: #### C VDAGS #### [facility] [address] [place] [address] Dr. Jayy Marquez [employer] Specimen Processing Concentration [facility] Comment on above: Performed By: #### A FB #### [facility] [address] [place] [address] Dr. Jayy Marquez Performed By: #### C VDAGS #### [facility] [address] [place] [address] Dr. Jayy Marquez FUNGAL CULTUREon 04-23-2022 Fungus (Mycology) Culture Final report [facility] Comment on above: Performed By: #### C XFUN #### [facility] [address] [place] [address] Dr. Jayy Marquez Performed By: #### C VDAGS #### [facility] [address] [place] [address] Dr. Jayy Marquez Fungus Stain Final report [facility] Comment on above: Performed By: #### C XFUN #### [facility] [address] [place] [address] Dr. Jayy Marquez Performed By: #### C VDAGS #### [facility] [address] [place] [address] Dr. Jayy Marquez Result 1 Comment Normal [facility] Comment on above: Result Comment: TANYA/ Calcofluor preparation: no fungus observed. Performed By: #### C XFUN #### [facility] [address] [place] [address] Dr. Jayy Marquez Result Comment: No y east or mold isolated after 4 weeks. Performed By: #### C VDAGS #### [facility] [address] [place] [address] Dr. Jayy Marquez CULTURE OTHERon 03-26-2022 CULTURE [...] S F Tetracycline >=16 R F Normal [facility] Comment on above: Performed By: #### C YTO #### [facility] [address] [place] [address] Dr. Jayy Marquez CULTURE OTHERon 03-25-2022 CULTURE [...] S F Levofloxacin 0.25 S F Normal [facility] Comment on above: Performed By: #### C YTO #### [facility] [address] [place] [address] Dr. Jayy Marquez CYTOLOGYon 03-23-2022 SENT TO REF LAB 03/23/2022 Normal [facility] Comment on above: Performed By: #### C YTO #### [facility] [address] [address] [address] Jayy AMADOR STAINon 03-23-2022 DIPHTHEROIDS Normal [facility] Comment on above: Performed By: #### C VDAGS #### [facility] [address] [address] [address] Jayy Marquez EPITHELIALS Normal [facility] Comment on above: Performed By: #### C VDAGS #### [facility] [address] [address] [address] Jayy Marquez FUNGAL ELEMENTS Normal [facility] Comment on above: Performed By: #### C VDAGS #### [facility] [address] [address] [address] Jayy AMADOR NEG BACILLI FEW Normal [facility] Comment on above: Performed By: #### C VDAGS #### [facility] [address] [address] [address] Jayy AMADOR NEG DIPPLOCOCCI Normal [facility] Comment on above: Performed By: #### C VDAGS #### [facility] [address] [address] [address] Jayy AMADOR POS BACILLI Normal The [facility] Comment on above: Performed By: #### C VDAGS #### [facility] [address] [address] [address] Jayy Marquez GRAM POSITIVE COCCI FEW Normal The [facility] Comment on above: Performed By: #### C VDAGS #### [facility] [address] [address] [address] Jayy Marquez GRAM STAIN SOURCE Rt Middle Lobe Lavage Normal [facility] Comment on above: Performed By: #### C VDAGS #### [facility] [address] [address] [address] Jayy Marquez GRAM STAIN SOURCE Lingula Lt Upper Lob e Lavage Normal [facility] Comment on above: Performed By: #### C VDAGS #### [facility] [address] [address] [address] Jayy Marquez GS_DIPTH Normal [facility] Comment on above: Performed By: #### C VDAGS #### [facility] [address] [place], [place] [address] Dr. Jayy Marquez WBC MANY Normal [facility] Comment on above: Performed By: #### C VDAGS #### [facility] [address] [place], [place] [address] Dr. Jayy Marquez WBC MODERATE Normal [facility] Comment on above: Performed By: #### C VDAGS #### [facility] [address] [place], [place] [address] Dr. Jayy Marquez Cov[facility] SARS-CoV-2 (COVID-19) RNA SILVINO+probe Ql (Unsp spec) Not detected Normal NOT DETECTED [facility] Comment on above: Result Comment: This test is not yet approved or cleared by the [place] FDA. When there are no FDA-approved or cleared tests available, and other criteria are met, FDA can make tests available under an emergency access mechanism called an Emergency Use Authorization (EUA). The EUA for this test is supported by the Genetics Physician of Health and Human Service's (HHS's) declaration [...] SARS-CoV-2. Performed By: #### C YTO #### [facility] [address] [place], [place] [address] LUNG CANCER SCREENINGon 05-04-2021 CT LUNG CANCER SCREENING EXAMINATION: CT [...] HANDY KEATING Date: 2022-03-04 16:14 Normal [facility] CBC AUTO DIFFon 10-30-2021 BASO # 0.0 103/ul Normal 0.0-0.1 [facility] Comment on above: Performed By: #### C VDAGS #### [facility] [address] [address] [address] Jayy Marquez Basophils/100 WBC (Bld) 0.7 % Normal 0.2-2.0 [facility] Comment on above: Performed By: #### C VDAGS #### [facility] [address] [address] [address] Jayy Marquez EO # 0.2 103/ul Normal 0.0-0.7 [facility] Comment on above: Performed By: #### C VDAGS #### [facility] [address] [place] [address] Dr. Jayy Marquez Eosinophils/100 WBC (Bld) 2.6 % Normal 0.9-7.0 [facility] Comment on above: Performed By: #### C VDAGS #### [facility] [address] [place] [address] Dr. Jayy Marquez Erythrocyte distribution width (RBC) [Ratio] 14.7 % Normal 11.0-15.0 [facility] Comment on above: Performed By: #### C VDAGS #### [facility] [address] [place] [address] Dr. Jayy Marquez Hematocrit (Bld) [Volume fraction] 48.9 % Critically high 36.0-48.0 [facility] Comment on above: Performed By: #### C VDAGS #### [facility] [address] [place] [address] Dr. Jayy Marquez Hemoglobin (Bld) [Mass/Vol] 15.5 g/dL Normal 12.0-16.0 [facility] Comment on above: Performed By: #### C VDAGS #### [facility] [address] [place] [address] Dr. Jayy Marquez IG # 0.01 10e3/ul Normal 0.00-0.03 [facility] Comment on above: Performed By: #### C VDAGS #### [facility] [address] [place] [address] Dr. Jayy Marquez IG % 0.2 % Normal 0.0-0.5 [facility] Comment on above: Performed By: #### C VDAGS #### [facility] [address] [place] [address] Dr. Jayy Marquez LYMPH # 1.6 103/ul Normal 1.2-3.8 [facility] Comment on above: Performed By: #### C VDAGS #### [facility] [address] [place] [address] Dr. Jayy Marquez Lymphocytes/100 WBC (Bld) 26.0 % Normal 20.5-60.0 [facility] Comment on above: Performed By: #### C VDAGS #### [facility] [address] [place] [address] Dr. Jayy Marquez MANUAL DIFF REQ NO Normal [facility] Comment on above: Performed By: #### C VDAGS #### [facility] [address] [place] [address] Dr. Jayy Marquez MCH (RBC) [Entitic mass] 31.5 pg Normal 26.7-34.0 [facility] Comment on above: Performed By: #### C VDAGS #### [facility] [address] [place] [address] Dr. Jayy Marquez MCHC (RBC) [Mass/Vol] 31.7 g/dL Normal 29.9-35.2 [facility] Comment on above: Performed By: #### C VDAGS #### [facility] [address] [place] [address] Dr. Jayy Marquez MCV (RBC) [Entitic vol] 99.4 fL Critically high 81.0-99.0 [facility] Comment on above: Performed By: #### C VDAGS #### [facility] [address] [place] [address] Dr. Jayy Marquez MONO # 0.8 103/ul Normal 0.3-0.8 [facility] Comment on above: Performed By: #### C VDAGS #### [facility] [address] [place] [address] Dr. Jayy Marquez Monocytes/100 WBC (Bld) 12.4 % Critically high 1.7-12.0 [facility] Comment on above: Performed By: #### C VDAGS #### [facility] [address] [place] [address] Dr. Jayy Marquez NEUT # 3.6 103/ul Normal 1.4-6.5 [facility] Comment on above: Performed By: #### C VDAGS #### [facility] [address] [place] [address] Dr. Jayy Marquez Neutrophils/100 WBC (Bld) 58.1 % Normal 43.0-75.0 [facility] Comment on above: Performed By: #### C VDAGS #### [facility] [address] [place] [address] Dr. Jayy Marquez Platelet mean volume (Bld) [Entitic vol] 10.1 fL Normal 9.5-13.5 [facility] Comment on above: Performed By: #### C VDAGS #### [facility] [address] [place] [address] Dr. Jayy Marquez PLT 234 103/ul Normal 150-450 [facility] Comment on above: Performed By: #### C VDAGS #### [facility] [address] [place] [address] Dr. Jayy Marquez RBC 4.92 106/ul Normal 4.20-5.40 [facility] Comment on above: Performed By: #### C VDAGS #### [facility] [address] [place] [address] Dr. Jayy Marquez WBC 6.2 103/ul Normal 4.0-11.0 [facility] Comment on above: Performed By: #### C VDAGS #### [facility] [address] [place] [address] Dr. Jayy Marquez FREE T3on 10-30-2021 FREE T3 2.73 pg/mlL Normal 2.18-3.98 [facility] Comment on above: Performed By: #### C VDAGS #### [facility] [address] [place] [address] Dr. Jayy Marquez FREE T4on 10-30-2021 Free T4 [Mass/Vol] 1.25 ng/dL Normal 0.76-1.46 [facility] Comment on above: Performed By: #### F T4 #### [facility] [address] [place] [address] Dr. Jayy Marquez PROF CHEM 8 (BAS METB)on Anion gap [Moles/Vol] 8.8 mmol/L Normal [facility] Comment on above: Performed By: #### C VDAGS #### [facility] [address] [address] [address] Jayy Marquez Calcium [Mass/Vol] 9.4 mg/dL Normal 8.5-10.1 [facility] Comment on above: Performed By: #### C VDAGS #### [facility] [address] [address] [address] Jayy Marquez Chloride [Moles/Vol] 104 mmol/L Normal 98-107 [facility] Comment on above: Performed By: #### C VDAGS #### [facility] [address] [address] [address] Jayy Marquez CO2 [Moles/Vol] 29.4 mmol/L Normal 21.0-32.0 [facility] Comment on above: Performed By: #### C VDAGS #### [facility] [address] [place] [address] Dr. Jayy Marquez Creatinine [Mass/Vol] 0.74 mg/dL Normal 0.55-1.02 [facility] Comment on above: Performed By: #### C VDAGS #### [facility] [address] [address] [address] Jayy Mraquez EGFR-AF SYRIAN >60 Normal >=60 [facility] Comment on above: Performed By: #### C VDAGS #### [facility] [address] [place] [address] Dr. Jayy Marquez EGFR-NON AF SYRIAN >60 Normal >=60 [facility] Comment on above: Performed By: #### C VDAGS #### [facility] [address] [place] [address] Dr. Jayy Marquez Glucose [Mass/Vol] 108 mg/dL Critically high 74-[address] [facility] Comment on above: Performed By: #### C VDAGS #### [facility] [address] [address] [address] Jayy Marquez Potassium [Moles/Vol] 4.2 mmol/L Normal 3.5-5.1 [facility] Comment on above: Performed By: #### C VDAGS #### [facility] [address] [place] [address] Dr. Jayy Marquez Sodium [Moles/Vol] 138 mmol/L Normal 136-145 [facility] Comment on above: Performed By: #### C VDAGS #### [facility] [address] [place] [address] Dr. Jayy Marquez Urea nitrogen [Mass/Vol] 16.0 mg/dL Normal 7.0-18.0 [facility] Comment on above: Performed By: #### C VDAGS #### [facility] [address] [place] [address] Dr. Jayy Marquez Urea nitrogen/Creatinine [Mass ratio] 21.6 mg/mg Normal [facility] Comment on above: Performed By: #### C VDAGS #### [facility] [address] [place] [address] Dr. Jayy Marquez SGOTon 10-30-2021 AST [Catalytic activity/Vol] 11 U/L Critically low 15-37 [facility] Comment on above: Performed By: #### B MP #### [facility] [address] [place] [address] Dr. Jayy Marquez SGPTon 10-30-2021 ALT [Catalytic activity/Vol] 22 U/L Normal 14-59 [facility] Comment on above: Performed By: #### C VDAGS #### [facility] [address] [place] [address] Dr. Jayy Marquez TSHon 10-30-2021 TSH 1.593 uIU/mL Normal 0.358-3.740 [facility] Comment on above: Performed By: #### B MP #### [facility] [address] [place] [address] LUNG SCREENING (ANNUAL)on 09-26-2019 Patient Name: AKIL HCACON ---CT--- Exam Date/Time 09/26/2019 10:55:[address] Low Dose Lung Scrn Ordering Physician RAVINDRA THURMAN, SHELBI PERLA Accession Number [id number] CPT4 Codes G0297 (CT Low Dose Lung [...] ROBERT Transcribed Date and Time: 09/26/2019 1:18 [place], [place] Octavio[facility] From [facility] - 09/26/2019 1:28 PM EDT Patient Name: AKIL CHACON ---CT--- Exam Date/Time 09/26/2019 10:55:[address] Low Dose Lung Scrn Ordering Physician RAVINDRA THURMAN TAMMY KAY Accession Number [id number] CPT4 Codes G0297 (CT Low Dose Lung [...] ROBERT Transcribed Date and Time: 09/26/2019 1:18 [place], [place] CT Low Dose Lung Screeningon 09-26-2019 CT Low Dose Lung Screening Patient Name: AKIL CHACON CT Exam Date/Time 09/26/2019 10:55:[address] Low Dose Lung Scrn Ordering Physician RAVINDRA THURMAN TAMMY KAY Accession Number [id number] CPT4 Codes G0297 (CT Low Dose Lung [...] Transcribed Date and Time: 09/26/2019 1:18 Normal [facility] OBSOLETEon 11-13-2016 OBSOLETE Refill (ENDMED) ----AKIL CHACON ([id number]) 1955 [facility] Time Provider Department11/13/16 CHARLOTTE RATLIFF During your visit today, we recorded the following information about you:Arabella Frey MA 11/13/2016 8:17 AM SignedPatient has not been seen in over a year.Allergies As of Date: 11/13/2016(No Known Allergies)Date Reviewed: 07/03/2015Reviewed by: Madeleine Arias Ma - Fully AssessedReason for Visit: [...] discontinue is not on file. Status:Closed by MADELEINE ARIAS MA on 11/16/16 Normal [facility] Colonoscopy w/ or w/o biopsy on 01-12-2013 Colon polyps Internal hemorrhoids Normal appearing terminal ileum and colonic mucosa, s/p random biopsies [facility] This order was created through External Result Entry [facility] Vital Signs Date Time Vital Sign Value Performing Clinician Facility 03-28-2024 11:16-0500 Body height 162.6 cm Antonio Hopkins MD Work Phone: [facility] 03-28-2024 11:16-0500 Body mass index (BMI) [Ratio] 31.07 kg/m2 Antonio Hopkins MD Work Phone: [facility] 03-28-2024 11:16-0500 Body temperature 97.11 [degF] Antonio Hopkins MD Work Phone: [facility] 03-28-2024 11:16-0500 Body weight 82.1 kg Antonio Hopkins MD Work Phone: [facility] 03-28-2024 11:16-0500 Diastolic blood pressure 60 mm[Hg] Antonio Hopkins MD Work Phone: [facility] 03-28-2024 11:16-0500 Heart rate 71 /min Antonio Hopkins MD Work Phone: [facility] 03-28-2024 11:16-0500 Respiratory rate 22 /min Antonio Hopkins MD Work Phone: [facility] 03-28-2024 11:16-0500 SaO2% (BldA) [Mass fraction] 97 % Antonio Hopkins MD Work Phone: [facility] 03-28-2024 11:16-0500 Systolic blood pressure 116 mm[Hg] Antonio Hopkins MD Work Phone: [facility] 04-21-2023 14:10-0500 Blood Pressure Location Kale HANNA [facility] 04-21-2023 14:10-0500 Diastolic blood pressure 78 mm[Hg] Kale HANNA [facility] 04-21-2023 14:10-0500 Heart rate 72 /min Kale HANNA [facility] 04-21-2023 14:10-0500 Respiratory rate 16 /min Kale HANNA [facility] 04-21-2023 14:10-0500 Systolic blood pressure 128 mm[Hg] Kale HANNA [facility] Encounters Encounter Date Encounter Type Care Provider Facility Start: 03-28-2024 End: 03-28-2024 Sinanboo flowsheet Antonio Hopkins MD Work Phone: [facility] Start: 03-28-2024 End: 03-28-2024 Bamboo flowsheet Antonio Hopkins MD Work Phone: [facility] Start: 03-28-2024 End: 03-28-2024 Patient encounter procedure Antonio Hopkins MD Work Phone: [facility] Work Phone: Start: 03-28-2024 End: 03-28-2024 Postop follow up visit related to original px Antonio Hopkins MD Work Phone: [facility] Comment on above: Medicare annual well ness visit, subsequent (Primary Dx) Start: 03-28-2024 End: 03-28-2024 ambulatory ANTONIO HOPKINS Not Available Start: 01-31-2024 End: 01-31-2024 Clinisync Result Encounter Generic External Data Provider [facility] Unsolicited Start: 01-31-2024 End: 01-31-2024 Clinisync Result Encounter Generic External Data Provider [facility] Unsolicited Start: 09-27-2023 End: 09-27-2023 ambulatory ANTONIO HOPKINS Not Available Start: 06-04-2023 End: 06-05-2023 [facility]ulatory [facility] Start: 05-12-2023 End: 05-12-2023 ambulatory Kale Hanna Facility:[facility] Start: 05-12-2023 End: 05-13-2023 ambulatory Kale HANNA [facility] Work Phone: Start: 05-12-2023 End: 05-12-2023 Departed Referred MD Kale Hanna Work Phone: [facility] Start: 04-21-2023 End: 04-22-2023 ambulatory Kale HANNA Facility:[facility] Start: 04-21-2023 End: 04-21-2023 Patient encounter procedure Kale Gonzalez [facility]jali [facility] Start: 04-02-2023 ambulatory Kale [place] Facility:[facility] Start: 04-01-2023 End: 04-01-2023 ambulatory ANTONIO HOPKINS Not Available Start: 09-22-2022 Evaluation and manag ement of inpatient DR DAYAMI FULLER . Facility:[facility] Start: 09-01-2022 End: 09-02-[address] HANDY KEATING Facility:[facility] Start: 03-23-2022 End: 03-23-2022 ambulatory ALIS HEAD . Facility:[facility] Start: 03-23-2022 Encounter for preprocedural cardiovascular examination ALIS HEAD . [facility] Start: 03-23-2022 Encounter for preprocedural laboratory examination ALIS HEAD . [facility] Start: 03-17-2022 End: 03-18-2022 ambulatory ALIS HEAD . Facility:[facility] Start: 03-17-2022 End: 03-18-2022 Encounter for preprocedural laboratory examination ALIS HEAD . Facility:[facility] Start: 03-04-2022 End: 03-05-[address] HANDY KEATING Facility:[facility] Start: 10-30-2021 End: 10-31-[address] ANTONIO HOPKINS Facility:[facility] Start: 09-26-2019 End: 09-26-2019 Subsequent hospital visit by physician Shelbi Thurman Work Phone: [facility] Comment on above: Cigarette nicotine d ependence with nicotine-induced disorder Start: 09-08-2018 Patient encounter procedure Lupillo Nichlos [facility] Start: 04-04-2018 Patient encounter procedure Eddi Zunigasean [facility] Start: 03-08-2018 Patient encounter procedure MONICA FIGUEROA [facility] Start: 03-07-2018 [facility] Start: 02-22-2018 Patient encounter procedure Ottoniel Fuchs [facility] Start: 09-14-2017 Patient encounter procedure MONICA FIGUEROA [facility] Start: 08-14-2017 Emergency department patient visit MARTIN DOZIER [facility] Start: 08-13-2017 Patient encounter procedure Ottoniel Fuchs [facility] Start: 01-12-2013 Conversion Encounter Ottoniel jackson MD Work Phone: [facility] Start: 01-12-2013 Legacy Encounter Ottoniel osborn MD Work Phone: [facility] Procedures Date Procedure Procedure Detail Performing Clinician Start: 01-31-2024 ALL HEMOGLOBIN Generic External Data Provider Start: 06-24-2023 Mammography Generic Pr ovider Start: 05-12-2023 Colonoscopy Generic Pr ovider Start: 09-26-2019 Ldct for lung ca screen Shelbi Thurman Work Phone: Start: 01-12-2013 COLONOSCOPY W/ OR W/ O BIOPSY Ottoniel Fuchs MD Work Phone: Bronchoscopy Kale NILL section Kale NIL L Colonoscopy Kale NILL Extraction of cataract Ramon el NILL Laparoscopy Kale NILL Ligation of fallopian tube Cammy delgadillo NILL Thyroidectomy Kale NILL Plan of Treatment Date Care Activity Detail Author Start: 05-12-2033 Screening for malign ant neoplasm of colon [facility] Start: 12-24-2025 DTaP/Tdap/Td vaccine (2 - Td) DTaP/Tdap/Td vaccine (2 - Td) [facility] [place] Start: 09-26-2024 End: 09-26-2024 Patient encounter procedure 09/26/2024 1:00 PM EDT Office Visit [facility] [address] [place] [id number] Antonio Hopkins MD [address] [place] [id number] [facility] Start: 06-23-2024 Screening for malign ant neoplasm of breast Mammogram [facility] Start: 03-28-2024 End: 03-28-2024 Patient encounter procedure [facility] Comment on above: Arrived Start: 12-30-2023 Lipid panel Lipid screen [place], [place] Start: 12-26-2023 Influenza vaccination Influenza Vacc ine (#1) [facility] Start: 02-11-2023 Screening for malign ant neoplasm of cervix Cervical cancer screen [place], [place] Start: 01-12-2023 Screening for malign ant neoplasm of colon Colon cancer screen colonoscopy [place], [place] Start: 02-23-2020 Screening for malign ant neoplasm of breast Breast cancer screen [place], [place] Start: 02-13-2020 Pneumococcal 65+ yea rs Vaccine (1 of 1 - PPSV23) Pneumococcal 65+ years Vaccine (1 of 1 - PPSV23) [place], [place] Start: 02-08-2020 End: 02-08-2020 Office Visit 02/08/2020 Office Visit Family Medicine Ottoniel Fuchs MD [address] [facility] [address] [place] [address] [facility] Start: 12-30-2019 Creatinine measurement Creatinine mo nitoring [place], [place] Start: 12-30-2019 HbA1c (Bld) [Mass fraction] A1C test (Diabetic or Prediabetic) [place], [place] Start: 12-30-2019 Potassium monitoring Potassium monit oring [place], [place] Start: 12-30-2019 TSH Qn TSH testing [place], [place] Start: 09-09-2019 Screening for malign ant neoplasm of lung Low dose CT lung screening [place], [place] Start: 08-09-2019 Annual Wellness Visi t (AWV) Annual Wellness Visit (AWV) [place] Start: 02-11-2019 Medicare Annual Wellness (AWV) Medicare Annual Wellness (AWV) [facility] Start: 1955 Screening for malign ant neoplasm of colon [facility] Immunizations Immunization Date Immunization Notes Care Provider Fa cility 03-08-2023 influenza virus vacc ine, unspecified formulation Kale HANNA [facility] [place] 02-04-2021 SARS-CoV-2 (COVID-19 ) Ad26 vaccine, recombinant Kale HANNA [facility] [place] Comment on above: Result Comment: 2022: [id number] 03-30-2019 Seasonal, quadrivale nt, recombinant, injectable influenza vaccine, preservative free [facility] [place] 12-29-2018 zoster vaccine recombinant [facility] 02-11-2018 influenza virus vacc ine, unspecified formulation [facility] , [place] 02-11-2018 influenza, injectabl e, quadrivalent, contains preservative [facility] 02-11-2018 zoster vaccine recombinant [facility] 12-25-2015 tetanus toxoid, redu florentino diphtheria toxoid, and acellular pertussis vaccine, adsorbed [facility] [place] 02-12-2015 pneumococcal polysaccharide vaccine, 23 valent [facility] 02-12-2015 zoster vaccine, live [facility] [place] Payers Date Payer Category Payer Self-pay 2023 Medicare [employer] MEDICARE ADVANTAGE [facility] MEDICARE ADVANTAGE [id number] 2023-Present [address] [place] [id number] 2023 Medicare (Managed Care[facility] [id number] 2023 Unknown [id number] 2019 Medicare MEDICARE MEDICAR E PART A AND B xxxxxxxxxxx 2019-Present [phone] [address] [address] [place] [address] xxxxxxxxxxx [id number] 2019 Private Health Insurance [employer]IC[employer] SUPP xxxxxxxxxx 2019-Present [phone] [address] [place] [address] xxxxxxxxxx [id number] 1960 Unknown [id number] Unknown [id number] 2.840.1.742428.3.579.2 1960 Medicare [id number] 1959 Private Health Insurance CLI [id number] 1955 Unknown [id number] 2.840.1.325582.3.579.2 1954 Unknown [id number] 2.840.1.552824.3.579.2 1954 Unknown [id number] 2.840.1.146707.3.579.2 1954 Unknown [id number] 2.16840.1.454673.3.579.2 1954 Unknown [id number] 2.16840.1.779242.3.579.2 1954 Unknown [id number] 2.16840.1.447669.3.579.2 1954 Unknown [id number] 2.16.840.1.733757.3.579.2 .668 1954 Unknown [id number] 2.16.840.1.745650.3.579.2 .593 1954 Unknown [id number] 2.16.840.1.092298.3.579.2 .593 1954 Unknown [id number] 2.16.840.1.719590.3.579.2 .593 1954 Unknown [id number] 2.16.840.1.715597.3.579.2 .593 1954 Unknown [id number] 2.16.840.1.823151.3.579.2 .593 1954 Unknown [id number] 2.16.840.1.488801.3.579.2 .593 1954 Unknown [id number] 2.16.840.1.576230.3.579.2 .727 1954 Unknown [id number] 2.16.840.1.747229.3.579.2 .727 1954 Unknown [id number] 2.16.840.1.006256.3.579.2 .727 1954 Unknown [id number] 2.16.840.1.758450.3.579.2 .1259 1954 Unknown [id number] 2.16.840.1.617167.3.579.2 .1259 1954 Unknown [id number] 2.16.840.1.013406.3.579.2 .1259 Unknown Social History Date Type Detail Facility Start: 08-02-1971 Tobacco smoking status NCIS Current every day smoker [place] Start: 08-02-1971 End: 09-24-2022 History of tobacco use Cigarette [place] Start: 08-09-2019 End: 09-26-2023 Cigarettes smoked current (pack per day) - Reported [facility] Start: 08-09-2019 Alcohol intake Current drinker of alcohol (finding) [place] Start: 12-29-2018 History SDOH Alcohol Frequency 4 [place] Start: 12-29-2018 History SDOH Alcohol Std Drinks 1 [place] Start: 12-29-2018 History SDOH Social Connections Get Together 2 [place] Start: 12-29-2018 History SDOH Social Connections Living 3 [place] Start: 12-29-2018 History SDOH Physical Activity DPW 0 [place] Start: 12-29-2018 History SDOH Financial 5 [place] Start: 08-16-2017 Tobacco Comment Less than a pack a day [place] Start: 08-16-2017 Alcohol Comment Occasionally [place] Start: 1955 Sex Assigned At Not on file [place] [facility] smoking consumption unknown [facility] Start: 09-26-2023 End: 03-28-2024 Gender identity Not on file [facility] Start: 04-21-2023 End: 09-27-2023 Tobacco smoking status Ex-smoker (finding) [facility] Tobacco smoking status Never [facility] Start: 1955 Sex Assigned At Female [facility] Start: 09-24-1972 End: 09-24-2022 History of tobacco use Current smoker [facility] Start: 09-27-2023 Tobacco use and exposure Smokeless tobacco non-user [facility] Do you belong to any clubs or organizations such as mandaeism groups, unions, fraternal or athletic groups, or school groups? No [facility] Are you now , , , , never or living with a partner? [facility] How often to you hav e a drink containing alcohol? 2-4 times a month [facility] How many standard dr inks containing alcohol do you have on a typical day? 1 or 2 [facility] How often do you hav e 6 or more drinks on 1 occasion? Never [facility] Do you feel stress - tense, restless, nervous, or anxious, or unable to sleep at night because your mind is troubled all the time - these days [OSQ] Not at all [facility] (I/We) worried wheth er (my/our) food would run out before (I/we) got money to buy more. Never true [facility] Goals Date Patient Goal Desired Activity /State Comment on above: Quit Smoking. Barriers: lack of motivation Plan for overcoming my barriers: Will discuss plan with provider. Confidence: 12/03 Anticipated Goal Completion Date: 1 year. Functional Status Date Assessment Result Facility 04-21-2023 Functional Status N/A [facility] History of Present illness Narrative 03-28-2024 Antonio Hopkins MD - 03/28/2024 12:11 PM ESTAntonio Hopkins MD - 03/28/2024 11:00 AM EST Note Date & Type Note Facility 03-28-2024 History of Presen t illness Narrative Associated Problem(s): Medicare annual wellness visit, subsequent Reviewed labs. Discussed proper diet and regular aerobic exercise. Need aerobic exercise 5-6 days a week for 30 minutes at a time. Smaller portions and limit total calories. Colonoscopy every 10 years. Tetanus every 10 years. Advised not to smoke. Discussed daily Aspirin therapy. Images from the original note were not included. Subjective Patient ID: Akil Chacon is a 68 y.o. female who presents for Medicare Annual Wellness Visit Subsequent (Wellness/). Presents for medicare annual wellness visit. Patient feels well today. Weight up 10 pounds in the past year. Active around the house but no regular exercise. Tries to watch diet and eat healthy. Increased fruits and vegetables. Smaller portions and limits snacking. Tries to limit total daily calories. Reviewed labs. Review of Systems Respiratory: Negative for cough, shortness of breath and wheezing. Cardiovascular: Negative for chest pain and palpitations. Gastrointestinal: Negative for abdominal pain, diarrhea, nausea and vomiting. Genitourinary: Negative for dysuria. Objective Physical Exam Constitutional: General: She is not in acute distress. Appearance: Normal appearance. HENT: Head: Normocephalic. Right Ear: Tympanic membrane normal. Left Ear: Tympanic membrane normal. Eyes: Extraocular Movements: Extraocular movements intact. Pupils: Pupils are equal, round, and reactive to light. Cardiovascular: Rate and Rhythm: Normal rate and regular rhythm. Heart sounds: No murmur heard. No friction rub. No gallop. Pulmonary: Effort: Pulmonary effort is normal. Breath sounds: Normal breath sounds. No wheezing, rhonchi or rales. Abdominal: General: Bowel sounds are normal. There is no distension. Palpations: Abdomen is soft. Tenderness: There is no abdominal tenderness. There is no guarding or rebound. Musculoskeletal: General: No swelling or tenderness. Cervical back: Neck supple. Right lower leg: No edema. Left lower leg: No edema. Skin: Findings: No erythema or rash. Neurological: General: No focal deficit present. Mental Status: She is alert and oriented to person, place, and time. Cranial Nerves: No cranial nerve deficit. Motor: No weakness. Gait: Gait normal. Assessment/Plan Problem List Items Addressed This Visit Medicare annual wellness visit, subsequent - Primary Reviewed labs. Discussed proper diet and regular aerobic exercise. Need aerobic exercise 5-6 days a week for 30 minutes at a time. Smaller portions and limit total calories. Colonoscopy every 10 years. Tetanus every 10 years. Advised not to smoke. Discussed daily Aspirin therapy. documented in this encounter [facility] Clinical Note 04-21-2023 Note Date & Type Note Facility 04-21-2023 Note Chief Complaint consultation for screening colonoscopy [facility] Staff 67 year old female presents on [...] 1 puff(s), Inhalation, Daily Flonase 0.05 mg/inh Emery, 100 mcg, Nasal, Daily levothyroxine 112 mcg [...] of lung: Brother. (more content not included)... [facility] Comment on above: Result Comment: Elec tronically Signed By: ISIS ALCANTAR, Kale Thurman\Date and Time Signed: 04/21/23 14:46 EST Evaluation + Plan note Note Date & Type Note Facility Evaluation + Plan note No data available for this section [facility] Evaluation note Note Date & Type Note Facility Evaluation note No assessment information availa [facility] Work Phone: Evaluation note Note Date & Type Note Facility Evaluation note Diagnosis HTN (hypertension), benign (CMS/HCC)- Primary Essential hypertension, benign Bronchiectasis without complication (CMS/HCC) Postoperative hypothyroidism (CMS/HCC) Postsurgical hypothyroidism Encounter for long-term (current) use of medications Encounter for long-term (current) use of other medications Prediabetes Other abnormal glucose Screening mammogram for breast cancer Screening, lipid Colon cancer screening Special screening for malignant neoplasms, colon HTN (hypertension), benign (CMS/HCC)- Primary Essential hypertension, benign Seasonal allergic rhinitis due to pollen Postoperative hypothyroidism (CMS/HCC) Postsurgical hypothyroidism Centrilobular emphysema (CMS/HCC) Bronchiectasis without complication (CMS/HCC) Medicare annual wellness visit, subsequent- Primary documented in this encounter [facility] Hospital Discharge instructions Note Date & Type Note Facility Hospital Discharge instructions No data available for this section [facility] Progress note Note Date & Type Note Facility Progress note No data available for this section [facility] Summary Purpose Family History No Family History Records FoundNo Family History Records FoundNo Family History Records FoundNo Family History Records FoundNo Family History Records Found No data available for this section No Family History Records FoundNo Family History Records FoundNo Family History Records Found Advance Directives No Advanced Directives Records FoundDocuments on File Type Date Recorded 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 Expl anation Advance Directives and Living Will Power of Senior Visual Designer Reason for Referral Status Reason Specialty Diagnoses / Procedures Referre d By Contact Referred To Contact [facility] Diagnoses Cigarette nicotine dependence with nicotine-induced disorder Procedures CT LUNG SCREENING (ANNUAL) Shelbi Thurman, FABY - PARTS IDENTIFIER [address] [address] Assessments Diagnosis Cigarette nicotine dependence with nicotine-induced disorder Unspecified drug-induced mental disorder Additional Source Comments INFORMATION SOURCE (unrecogn ized section and content) DATE CREATED AUTHOR 10/20/2017 [facility] DATE CREATED AUTHOR AUTHOR'S ORGANIZ ATION 04/04/2018 [facility] DATE CREATED AUTHOR AUTHOR'S ORGANIZ ATION 04/09/2018 [facility] DATE CREATED AUTHOR AUTHOR'S ORGANIZ ATION 09/26/2019 [facility] DATE CREATED AUTHOR AUTHOR'S ORGANIZ ATION 10/02/2022 [facility] DATE CREATED AUTHOR AUTHOR'S ORGANIZ ATION 06/15/2023 [facility] DATE CREATED AUTHOR AUTHOR'S ORGANIZ ATION 06/15/2023 Bess Barry [facility] DATE CREATED AUTHOR AUTHOR'S ORGANIZ ATION 03/30/2024 [facility] d[facility] Specialists [employer] Care Teams (unrecognized sec tion and content) Finish Machine Tender Relationship Specialty Start Date End Date Ottoniel Fuchs MD [facility] [address] [place], [place] [id number] PCP - General 12/21/13 Team Status: Inactive Member Role Status Dates Kale Hanna MD FACS Attending Provider Active Start: May 12, 2023 End: May 12, 2023 Finish Machine Tender Relationship Specialty Start Date End Date Antonio Hopkins MD [address] [place] [id number] PCP - General Family Medicine 10/21/22 Antonio Hopkins MD [address] [place] [id number] PCP - Jaycee DAVIS 11/25/23 Finish Machine Tender Relationship Specialty Start Date End Date Antonio Hopkins MD [address] [place] [phone] PCP - General Family Medicine 10/21/22 Antonio Hopkins MD [address] [place] [phone] PCP - Jaycee DAVIS 11/25/23 Finish Machine Tender Relationship Specialty Start Date End Date Antonio Hopkins MD [address] [place] [address] PCP - General Family Medicine 10/21/22 Antonio Hopkins MD [address] [place] [address] PCP - Jaycee DAVIS 11/25/23 Goals (unrecognized section and content) Goals may be documented in a n alternate section Reason for Visit (unrecogniz ed section and content) Reason Comments Medicare Annual Wellness Visit Subsequen t Wellness FOR RECORDS PERTAINING TO PATIENTS WHO ARE [...] BE BASED ON THE PRIMARY CLINICAL RECORDS. [employer] provides no warranty or guarantee of the accuracy or completeness of information in this document.
[2024-04-13 15:57] LABS: Basophils Percent Auto 0.3 % (0.2-2.0); Eosinophils Percent Auto 0.3 % (0.9-7.0); Hematocrit 43.6 % (36.0-48.0); Hemoglobin 14.2 g/dL (12.0-16.0); Immature Granulocytes Abs Auto 0.02 10^3/uL (0.00-0.03); Immature Granulocytes Pct Auto 0.2 % (0.0-0.5); Lymphocytes Absolute Auto 1.5 10^3/uL (1.2-3.8); Lymphocytes Percent Auto 15.4 % (20.5-60.0); Mean Corpuscular HGB Conc 32.6 g/dL (29.9-35.2); Mean Corpuscular Hemoglobin 31.1 pg (26.7-34.0); Mean Corpuscular Volume 95.4 fL (81.0-99.0); Mean Platelet Volume 9.5 fL (9.5-13.5); Monocytes Absolute Auto 0.8 10^3/uL (0.3-0.8); Monocytes Percent Auto 8.4 % (1.7-12.0); Neutrophils Absolute Auto 7.6 10^3/uL (1.4-6.5); Neutrophils Percent Auto 75.4 % (43.0-75.0); Platelet Count 226 10^3/uL (150-450); Red Blood Count 4.57 10^6/uL (4.20-5.40); Red Cell Distribution Width 13.3 % (11.0-15.0)
[2024-04-13 15:58] LABS: PCO2 VBG 47.3 mmHg (40.0-52.0); pH VBG 7.393 (7.330-7.430)
[2024-04-13] MEDS: IPRATROPIUM/ALBUTEROL SULFATE 3 ML AMPUL.NEB IH (15:59)
[2024-04-13 16:13] LABS: D Dimer 0.33 mg/L FEU (<=0.59); Partial Thromboplastin Time 30.2 sec (22.3-36.2); Prothrombin Time 10.6 sec (9.0-11.6)
[2024-04-13 16:16] LABS: Alanine Aminotransferase 16 U/L (14-59); Albumin Level 3.5 g/dL (3.4-5.0); Alkaline Phosphatase 73 U/L (46-116); Anion Gap 9.6; Aspartate Amino Transferase 11 U/L (15-37); Bilirubin Total 0.6 mg/dL (0.2-1.0); Calcium 8.9 mg/dL (8.5-10.1); Chloride 103 mmol/L (98-107); Estimated GFR (African America >60 (>=60 mL/min/1.73m^2); Estimated GFR (Non-African Ame >60 (>=60 mL/min/1.73m^2); Globulin 3.5 g/dL; Glucose 136 mg/dL (74-106); Potassium 3.6 mmol/L (3.5-5.1); Sodium 137 mmol/L (136-145)
--- NOTE | 2024-04-13 16:18 | XR_ITS ---
[address] [address] Patient Name: ERICA CHACON MRN: [id number] date: 1955 Sex: F Assigned Patient Location: ER Current Patient Location: ER Accession/Order Number: [id number] Exam Date: 04/13/2024 16:28 Report Date: 04/13/2024 16:38 At the request of: QING CASAS Procedure: XR chest 1V EXAM: XR chest 1V CLINICAL INDICATION: Shortness of breath TECHNIQUE: Portable frontal semi-erect view of the chest. COMPARISON: 07/22/2023 FINDINGS: Lines and tubes: None. Lungs: No convincing focal infiltrates. No pleural effusion or pneumothorax. Heart: Cardiac and mediastinal contours are unremarkable. No overt pulmonary vascular congestion. Osseous structures: No acute abnormalities. XR/XR chest 1V IMPRESSION: No acute cardiopulmonary process. Electronically authenticated by: GIOVANI MADRID Date: 04/13/2024 16:38
[2024-04-13] MEDS: METHYLPREDNISOLONE SOD SUCC PF 125 MG/2 ML VIAL IVP (16:20)
[2024-04-13 16:23] LABS: Troponin I High Sensitivity 7.5 pg/mL (4.0-51.3)
[2024-04-13 16:31] LABS: Influenza Virus A Antigen Negative; Influenza Virus B Antigen Negative; Internal Control Within Normal Limits; Respiratory Syncytial Virus Not Detected (NOT DETECTE); SARS-CoV-2 Ag NEGATIVE (NEGATIVE)
[2024-04-13] MEDS: CEFTRIAXONE 1,000 MG in 0.9 % SODIUM CHLORIDE 50 ML 100 MG IV (17:46)
[2024-04-13] MEDS: AZITHROMYCIN 500 MG in 0.9 % SODIUM CHLORIDE 250 ML 250 MG IV (18:23)
--- OUTSIDE RECORDS SUMMARY | 2024-04-13 18:40 | XMS_ITS | CCD ---
Author Organization [facility] CliniSyoh Care Team Providers Care Schedule Supervisor Name Role Phone Niraula, Lupillo Unavailable Unavailable PROVIDER, UNKNOWN Unavailable Unavailable JEF, OTTONIEL B Unavailable Unavailable Jef, Ottoniel Unavailable Unavailable PROVIDER, UNKNOWN Unavailable Unavailable [place], Ottoniel Unavailable Unavailable DOZIER, DEEPIKAH Unavailable Unavailable PROVIDER, UNKNOWN Unavailable Unavailable [place], Ottoniel Unavailable Unavailable FIGUEROA, MASROOR Unavailable Unavailable PROVIDER, UNKNOWN Unavailable Unavailable [place], Ottoniel Unavailable Unavailable FIGUEROA, MASROOR Unavailable Unavailable PROVIDER, UNKNOWN Unavailable Unavailable [place], Ottoniel Unavailable Unavailable Jef, Ottoniel Unavailable Unavailable PROVIDER, UNKNOWN Unavailable Unavailable Jef, Ottoniel Unavailable Unavailable FIGUEROA, MASROOR Unavailable Unavailable PROVIDER, UNKNOWN Unavailable Unavailable Jef, Ottoniel Unavailable Unavailable NIRAULA, LUPILLO Unavailable Unavailable Jef, Ottoniel Unavailable Unavailable Tsivitse Eddi Unavailable Unavailable PROVIDER, UNKNOWN Unavailable Unavailable [place], Ottoniel Unavailable Unavailable Jef, Ottoniel Primary Care Provider DR HANDY KEATING Consulting Unavailable JAYDONERECarlos, DR [...] Unavailable Ottoniel Fuchs MD Primary Care Provider ANTONIO HOPKINS Primary Care Physician [phone] MD Kale Hanna Attending Provider [phone] Kale Hanna Attending Unavailable Kale Hanna Admitting Unavailable ISIS, Kale Gonzalez Attending Unavailable ANTONIO HOPKINS Referring Unavailable Kale HANNA Attending Unavailable Kale HANNA Attending Unavailable Antonio Hopkins MD Primary Care Provider [phone] Antonio Hopkins MD Unavailable ANTONIO HOPKINS Attending Unavailable SANDEEP, ANTONIO Attending Unavailable ANTONIO HOPKINS Attending Unavailable Allergies Allergy Classification Reported Allergen(s) Allergy Type Date of Onset Reaction(s) Facility (1 source) No Known Medication Allergies; Translations: [No Known Medication Allergies] Propensity to adverse reactions (disorder) [facility] Repository Medications Current Medications Medication Drug Class(es) Dates Sig (Normalized) Sig (Original) [id number] actuat albuterol 0.09 mg/actuat metered dose inhaler (10 sources) beta2-Adrenergic Agonist Start: 07-26-2023 take 2 puff(s) by inhalation every four hours for wheezing albuterol HFA 90 mcg/act inhaler Indications: Bronchiectasis without complication ([facility]) Inhale 2 puffs every 4 (four) hours [...] Active Start: 04-09-2023 take 1 tablet by [facility] once daily amLODIPine 5 mg Tab 5 [...] Corticosteroid Start: 04-09-2023 Flonase 0.05 m g/inh [place] 100 mcg, Nasal, Daily, Refill(s) 0 Start [...] disease (2 sources) 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; Translations: [Athscl heart disease of king [place] coronary artery w/o ang pctrs] Onset: 03-08-2018 [...] source) alf (current) use of aspirin; Translations: [CUSTODIAL CURRENT USE OF ASPIRIN] Onset: 09-22-2022 Episodic Other aftercare (5 sources) 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; Translations: [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 CURRENT DRUG THERAPY] Onset: 10-30-2021 Episodic Other [...] current use of drug therapy; Translations: [Other chcf (current) drug therapy] Onset: 04-01-2023 04-01-2023 Episodic [...] [Mass/Vol] 14.6 g/dL 12.0 - 16.0 g/dL [facility] Office/Clini c Noteon 06-14-2023 General [...] 1 puff(s), Inhalation, Daily Flonase 0.05 mg/inh [place], 100 mcg, Nasal, Daily levothyroxine 112 mcg [...] 02/04/2021 Recorded 2023-04-09: [id number] patient seen 06/04/2023 [facility] Comment on above: Result Comment: Elec [...] EC Tab) fluticasone nasal (Flonase 0.05 mg/inh [place]) fluticasone-vilantero l (Breo Ellipta 100 mcg-25 mcg [...] Unchanged fluticasone nasal (Flonase 0.05 mg/ inh [place]) 100 Microgram Nasal Inhalation Every day Unchanged [...] you for choosing us for your care. [facility] Reminderson 06-04-2023 Reminders - From: Tamia Price LPN To: N - Clinical; Sent: 06/04/2023 14:05:05 EST Show up: 04/11/2033 07:00:00 EST Subject: colonoscopy recall Due Date/Time: 05/12/2033 07:00:00 EST Reminder/Recall Patient due for screening colonoscopy 05/12/2033. [facility] Outside Colonoscopyon 2023 Outside Colonoscopy [id number]#1 .00TIFF [facility] Pathology Noteon 05-20-2023 Pathology Note [id number]#1. 00TIFF [facility] Matthieu 05-12-2023 L Specimen: [id number] Received: 05/12/23 Status: SOUT Re Num: [id number] Spec Type: Surgical Subm Dr: Kale Hanna MD FACS Tissues: A Colon Biopsy (SIGMOID POLYP) Procedures: HE/2, Gross/Micro L4 Age/ Patient Sex Location Account Attending Physician Akil Chacon 67/F [facility] [id number] Kale Hanna MD FACS SPEC NUM: [id number] RECD: 05/12/23 STATUS: BILLY OVIEDO NUM: [id number] DONIS: 05/12/[address] [facility] [address]: Kale Hanna MD FACS ENTERED: 05/12/23 [facility] DR: Tania Nam SPEC TYPE: Surgical DEPT: [...] in one cassette labeled A1. CPT Codes 25147 -------- -------- Specimen: [id number] Received: 05/12/23 Status: BILLY Oviedo Num: [id number] Spec Type: Surgical Subm Dr: Kale Hanna MD FACS Tissues: A Colon Biopsy (SIGMOID POLYP) Procedures: HE/2, Gross/Micro L4 -------- Patient: Akil Chacon [id number] (Continued) -------- Signed (signature on file) Renato-Ed Marquez MD 05/14/23 0853 [facility] Insurance Correspondenceon 0 05-05-2023 Insurance Correspondence [id number] .00TIFF [facility] Consent for Procedure/Surger yon 04-23-2023 Consent for Procedure/Surgery [id number] .00TIFF [facility] Facesheeton 04-22-2023 Facesheet [id number]# 1.00TIFF [facility] Ambulatory Visit Summaryon 1 06-22-2022 Ambulatory [...] EC Tab) fluticasone nasal (Flonase 0.05 mg/inh [place]) fluticasone-vilantero l (Breo Ellipta 100 mcg-25 mcg [...] Unchanged fluticasone nasal (Flonase 0.05 mg/ inh [place]) 100 Microgram Nasal Inhalation Every day Contact [...] for choosing us for your care. Normal [facility] Transfer Inon 04-06-2023 Transfer In [id number]#1 .00TIFF Normal [facility] Physician Referralon 023 Physician Referral [id number] .00TIFF Normal [facility] CBC AUTO DIFFon 09-23-2022 BASO # 0.0 103/ul Normal 0.0-0.1 [facility] Comment on above: Performed By: #### C YTO #### [facility] [address] [place] [address] Dr. Jayy Marquez Basophils/100 WBC (Bld) 0.4 % Normal 0.2-2.0 [facility] Comment on above: Performed By: #### C YTO #### [facility] [address] [place] [address] Dr. Jayy Marquez EO # 0.1 103/ul Normal 0.0-0.7 [facility] Comment on above: Performed By: #### C YTO #### [facility] [address] [place] [address] Dr. Jayy Marquez Eosinophils/100 WBC (Bld) 0.5 % Critically low 0.9-7.0 [facility] Comment on above: Performed By: #### C YTO #### [facility] [address] [place] [address] Dr. Jayy Marquez Erythrocyte distribution width (RBC) [Ratio] 13.1 % Normal 11.0-15.0 [facility] Comment on above: Performed By: #### C YTO #### [facility] [address] [place] [address] Dr. Jayy Marquez Hematocrit (Bld) [Volume fraction] 43.0 % Normal 36.0-48.0 [facility] Comment on above: Performed By: #### C YTO #### [facility] [address] [place] [address] Dr. Jayy Marquez Hemoglobin (Bld) [Mass/Vol] 13.9 g/dL Normal 12.0-16.0 [facility] Comment on above: Performed By: #### C YTO #### [facility] [address] [place] [address] Dr. Jayy Marquez IG # 0.04 10e3/ul Critically high 0.00-0.03 [facility] Comment on above: Performed By: #### C YTO #### [facility] [address] [place] [address] Dr. Jayy Marquez IG % 0.4 % Normal 0.0-0.5 [facility] Comment on above: Performed By: #### C YTO #### [facility] [address] [place] [address] Dr. Jayy Marquez LYMPH # 0.7 103/ul Critically low 1.2-3.8 [facility] Comment on above: Performed By: #### C YTO #### [facility] [address] [place] [address] Dr. Jayy Marquez Lymphocytes/100 WBC (Bld) 6.7 % Critically low 20.5-60.0 [facility] Comment on above: Performed By: #### C YTO #### [facility] [address] [place] [address] Dr. Jayy Marquez MANUAL DIFF REQ NO Normal [facility] Comment on above: Performed By: #### C YTO #### [facility] [address] [place] [address] Dr. Jayy Marquez MCH (RBC) [Entitic mass] 31.2 pg Normal 26.7-34.0 [facility] Comment on above: Performed By: #### C YTO #### [facility] [address] [place] [address] Dr. Jayy Marquez MCHC (RBC) [Mass/Vol] 32.3 g/dL Normal 29.9-35.2 [facility] Comment on above: Performed By: #### C YTO #### [facility] [address] [place] [address] Dr. Jayy Marquez MCV (RBC) [Entitic vol] 96.4 fL Normal 81.0-99.0 [facility] Comment on above: Performed By: #### C YTO #### [facility] [address] [place] [address] Dr. Jayy Marquez MONO # 0.9 103/ul Critically high 0.3-0.8 [facility] Comment on above: Performed By: #### C YTO #### [facility] [address] [place] [address] Dr. Jayy Marquez Monocytes/100 WBC (Bld) 8.2 % Normal 1.7-12.0 [facility] Comment on above: Performed By: #### C YTO #### [facility] [address] [place] [address] Dr. Jayy Marquez NEUT # 9.0 103/ul Critically high 1.4-6.5 [facility] Comment on above: Performed By: #### C YTO #### [facility] [address] [place] [address] Dr. Jayy Marquez Neutrophils/100 WBC (Bld) 83.8 % Critically high 43.0-75.0 [facility] Comment on above: Performed By: #### C YTO #### [facility] [address] [place] [address] Dr. Jayy Marquez Platelet mean volume (Bld) [Entitic vol] 10.4 fL Normal 9.5-13.5 [facility] Comment on above: Performed By: #### C YTO #### [facility] [address] [place] [address] Dr. Jayy Marquez PLT 232 103/ul Normal 150-450 [facility] Comment on above: Performed By: #### C YTO #### [facility] [address] [place] [address] Dr. Jayy Marquez RBC 4.46 106/ul Normal 4.20-5.40 [facility] Comment on above: Performed By: #### C YTO #### [facility] [address] [place] [address] Dr. Jayy Marquez WBC 10.7 103/ul Normal 4.0-11.0 [facility] Comment on above: Performed By: #### C YTO #### [facility] [address] [place] [address] Dr. Jayy Marquez PROF CHEM 8 (BAS METB)on Anion gap [Moles/Vol] 13.4 mmol/L Normal [facility] Comment on above: Performed By: #### B MP #### [facility] [address] [place] [address] Dr. Jayy Marquez Calcium [Mass/Vol] 9.1 mg/dL Normal 8.5-10.1 [facility] Comment on above: Performed By: #### B MP #### [facility] [address] [place] [address] Dr. Jayy Marquez Chloride [Moles/Vol] 100 mmol/L Normal 98-107 [facility] Comment on above: Performed By: #### B MP #### [facility] [address] [place] [address] Dr. Jayy Marquez CO2 [Moles/Vol] 27.2 mmol/L Normal 21.0-32.0 [facility] Comment on above: Performed By: #### B MP #### [facility] [address] [place] [address] Dr. Jayy Marquez Creatinine [Mass/Vol] 0.77 mg/dL Normal 0.55-1.02 [facility] Comment on above: Performed By: #### B MP #### [facility] [address] [place] [address] Dr. Jayy Marquez EGFR-AF ETHIOPIAN >60 Normal >=60 [facility] Comment on above: Performed By: #### B MP #### [facility] [address] [place] [address] Dr. Jayy Marquez EGFR-NON AF ETHIOPIAN >60 Normal >=60 [facility] Comment on above: Performed By: #### B MP #### [facility] [address] [place] [address] Dr. Jayy Marquez Glucose [Mass/Vol] 173 mg/dL Critically high 74-106 [facility] Comment on above: Performed By: #### B MP #### [facility] [address] [address] [address] Jayy Marquez Potassium [Moles/Vol] 4.6 mmol/L Normal 3.5-5.1 [facility] Comment on above: Performed By: #### B MP #### [facility] [address] [address] [address] Jayy Marquez Sodium [Moles/Vol] 136 mmol/L Normal 136-145 [facility] Comment on above: Performed By: #### B MP #### [facility] [address] [address] [address] Jayy Marquez Urea nitrogen [Mass/Vol] 16.0 mg/dL Normal 7.0-18.0 [facility] Comment on above: Performed By: #### B MP #### [facility] [address] [address] [address] Jayy Marquez Urea nitrogen/Creatinine [Mass ratio] 20.8 mg/mg Normal [facility] Comment on above: Performed By: #### B MP #### [facility] [address] [address] [address] Jayy Marquez XR CHEST 1 Von [...] ELENO FUENTES Date: 2022-09-23 14:29 Normal [facility] BNPon 09-22-2022 Natriuretic peptide B (Bld) [Mass/Vol] 243.0 pg/mL Normal <=900.0 [facility] Comment on above: Performed By: #### B MP, BNP, HSTROPN #### [facility] [address] [address] [address] Jayy Marquez CBC AUTO DIFFon 09-22-2022 BASO # 0.0 103/ul Normal 0.0-0.1 [facility] Comment on above: Performed By: #### C VDAGS #### [facility] [address] [place] [address] Dr. Jayy Marquez Basophils/100 WBC (Bld) 0.4 % Normal 0.2-2.0 [facility] Comment on above: Performed By: #### C VDAGS #### [facility] [address] [place] [address] Dr. Jayy Marquez EO # 0.0 103/ul Normal 0.0-0.7 [facility] Comment on above: Performed By: #### C VDAGS #### [facility] [address] [place] [address] Dr. Jayy Marquez Eosinophils/100 WBC (Bld) 0.0 % Critically low 0.9-7.0 [facility] Comment on above: Performed By: #### C VDAGS #### [facility] [address] [place] [address] Dr. Jayy Marquez Erythrocyte distribution width (RBC) [Ratio] 13.1 % Normal 11.0-15.0 [facility] Comment on above: Performed By: #### C VDAGS #### [facility] [address] [place] [address] Dr. aJyy Marquez Hematocrit (Bld) [Volume fraction] 42.7 % Normal 36.0-48.0 [facility] Comment on above: Performed By: #### C VDAGS #### [facility] [address] [place] [address] Dr. Jayy Marquez Hemoglobin (Bld) [Mass/Vol] 13.9 g/dL Normal 12.0-16.0 [facility] Comment on above: Performed By: #### C VDAGS #### [facility] [address] [place] [address] Dr. Jayy Marquez IG # 0.03 10e3/ul Normal 0.00-0.03 [facility] Comment on above: Performed By: #### C VDAGS #### [facility] [address] [place] [address] Dr. Jayy Marquez IG % 0.4 % Normal 0.0-0.5 [facility] Comment on above: Performed By: #### C VDAGS #### [facility] [address] [place] [address] Dr. Jayy Marquez LYMPH # 0.4 103/ul Critically low 1.2-3.8 [facility] Comment on above: Performed By: #### C VDAGS #### [facility] [address] [place] [address] Dr. Jayy Marquez Lymphocytes/100 WBC (Bld) 5.5 % Critically low 20.5-60.0 [facility] Comment on above: Performed By: #### C VDAGS #### [facility] [address] [place] [address] Dr. Jayy Marquez MANUAL DIFF REQ NO Normal [facility] Comment on above: Performed By: #### C VDAGS #### [facility] [address] [place] [address] Dr. Jayy Marquez MCH (RBC) [Entitic mass] 31.2 pg Normal 26.7-34.0 [facility] Comment on above: Performed By: #### C VDAGS #### [facility] [address] [place] [address] Dr. Jayy Marquez MCHC (RBC) [Mass/Vol] 32.6 g/dL Normal 29.9-35.2 [facility] Comment on above: Performed By: #### C VDAGS #### [facility] [address] [place] [address] Dr. Jayy Marquez MCV (RBC) [Entitic vol] 96.0 fL Normal 81.0-99.0 [facility] Comment on above: Performed By: #### C VDAGS #### [facility] [address] [place] [address] Dr. Jayy Marquez MONO # 0.3 103/ul Normal 0.3-0.8 [facility] Comment on above: Performed By: #### C VDAGS #### [facility] [address] [place] [address] Dr. Jayy Marquez Monocytes/100 WBC (Bld) 3.5 % Normal 1.7-12.0 [facility] Comment on above: Performed By: #### C VDAGS #### [facility] [address] [place] [address] Dr. Jayy Marquez NEUT # 6.9 103/ul Critically high 1.4-6.5 [facility] Comment on above: Performed By: #### C VDAGS #### [facility] [address] [place] [address] Dr. Jayy Marquez Neutrophils/100 WBC (Bld) 90.2 % Critically high 43.0-75.0 [facility] Comment on above: Performed By: #### C VDAGS #### [facility] [address] [place] [address] Dr. Jayy Marquez Platelet mean volume (Bld) [Entitic vol] 9.8 fL Normal 9.5-13.5 [facility] Comment on above: Performed By: #### C VDAGS #### [facility] [address] [place] [address] Dr. Jayy Marquez PLT 207 103/ul Normal 150-450 [facility] Comment on above: Performed By: #### C VDAGS #### [facility] [address] [place] [address] Dr. Jayy Marquez RBC 4.45 106/ul Normal 4.20-5.40 [facility] Comment on above: Performed By: #### C VDAGS #### [facility] [address] [place] [address] Dr. Jayy Marquez WBC 7.6 103/ul Normal 4.0-11.0 [facility] Comment on above: Performed By: #### C VDAGS #### [facility] [address] [place] [address] Dr. Jayy Marquez BASO # 0.0 103/ul Normal 0.0-0.1 [facility] Comment on above: Performed By: #### C BC #### [facility] [address] [place] [address] Dr. Jayy Marquez Basophils/100 WBC (Bld) 0.4 % Normal 0.2-2.0 [facility] Comment on above: Performed By: #### C BC #### [facility] [address] [place] [address] Dr. Jayy Marquez EO # 0.1 103/ul Normal 0.0-0.7 [facility] Comment on above: Performed By: #### C BC #### [facility] [address] [place] [address] Dr. Jayy Marquez Eosinophils/100 WBC (Bld) 1.4 % Normal 0.9-7.0 [facility] Comment on above: Performed By: #### C BC #### [facility] [address] [place] [address] Dr. Jayy Marquez Erythrocyte distribution width (RBC) [Ratio] 13.2 % Normal 11.0-15.0 [facility] Comment on above: Performed By: #### C BC #### [facility] [address] [place] [address] Dr. Jayy Marquez Hematocrit (Bld) [Volume fraction] 45.5 % Normal 36.0-48.0 [facility] Comment on above: Performed By: #### C BC #### [facility] [address] [place] [address] Dr. Jayy Marquez Hemoglobin (Bld) [Mass/Vol] 15.3 g/dL Normal 12.0-16.0 [facility] Comment on above: Performed By: #### C BC #### [facility] [address] [place] [address] Dr. Jayy Marquez IG # 0.03 10e3/ul Normal 0.00-0.03 [facility] Comment on above: Performed By: #### C BC #### [facility] [address] [place] [address] Dr. Jayy Marquez IG % 0.3 % Normal 0.0-0.5 [facility] Comment on above: Performed By: #### C BC #### [facility] [address] [place] [address] Dr. Jayy Marquez LYMPH # 1.3 103/ul Normal 1.2-3.8 [facility] Comment on above: Performed By: #### C BC #### [facility] [address] [place] [address] Dr. Jayy Marquez Lymphocytes/100 WBC (Bld) 13.8 % Critically low 20.5-60.0 [facility] Comment on above: Performed By: #### C BC #### [facility] [address] [place] [address] Dr. Jayy Marquez MANUAL DIFF REQ NO Normal [facility] Comment on above: Performed By: #### C BC #### [facility] [address] [place] [address] Dr. Jayy Marquez MCH (RBC) [Entitic mass] 32.0 pg Normal 26.7-34.0 [facility] Comment on above: Performed By: #### C BC #### [facility] [address] [place] [address] Dr. Jayy Marquez MCHC (RBC) [Mass/Vol] 33.6 g/dL Normal 29.9-35.2 [facility] Comment on above: Performed By: #### C BC #### [facility] [address] [place] [address] Dr. Jayy Marquez MCV (RBC) [Entitic vol] 95.2 fL Normal 81.0-99.0 [facility] Comment on above: Performed By: #### C BC #### [facility] [address] [place] [address] Dr. Jayy Marquez MONO # 1.3 103/ul Critically high 0.3-0.8 [facility] Comment on above: Performed By: #### C BC #### [facility] [address] [place] [address] Dr. Jayy Marquez Monocytes/100 WBC (Bld) 13.7 % Critically high 1.7-12.0 [facility] Comment on above: Performed By: #### C BC #### [facility] [address] [place] [address] Dr. Jayy Marquez NEUT # 6.7 103/ul Critically high 1.4-6.5 [facility] Comment on above: Performed By: #### C BC #### [facility] [address] [place] [address] Dr. Jayy Marquez Neutrophils/100 WBC (Bld) 70.4 % Normal 43.0-75.0 [facility] Comment on above: Performed By: #### C BC #### [facility] [address] [place] [address] Dr. Jayy Marquez Platelet mean volume (Bld) [Entitic vol] 9.6 fL Normal 9.5-13.5 [facility] Comment on above: Performed By: #### C BC #### [facility] [address] [place] [address] Dr. Jayy Marquez PLT 218 103/ul Normal 150-450 [facility] Comment on above: Performed By: #### C BC #### [facility] [address] [place] [address] Dr. Jayy Marquez RBC 4.78 106/ul Normal 4.20-5.40 [facility] Comment on above: Performed By: #### C BC #### [facility] [address] [place] [address] Dr. Jayy Marquez WBC 9.5 103/ul Normal 4.0-11.0 [facility] Comment on above: Performed By: #### C BC #### [facility] [address] [place] [address] Dr. Jayy Marquez PROF CHEM 8 (BAS METB)on Anion gap [Moles/Vol] 11.3 mmol/L Normal [facility] [facility] Comment on above: Performed By: #### B MP #### [facility] [address] [place] [address] Dr. Jayy Marquez Calcium [Mass/Vol] 8.7 mg/dL Normal 8.5-10.1 [facility] Comment on above: Performed By: #### B MP #### [facility] [address] [place] [address] Dr. Jayy Marquez Chloride [Moles/Vol] 100 mmol/L Normal 98-107 [facility] Comment on above: Performed By: #### B MP #### [facility] [address] [address] [address] Jayy Marquez CO2 [Moles/Vol] 27.6 mmol/L Normal 21.0-32.0 [facility] Comment on above: Performed By: #### B MP #### [facility] [address] [address] [address] Jayy Marquez Creatinine [Mass/Vol] 0.82 mg/dL Normal 0.55-1.02 [facility] Comment on above: Performed By: #### B MP #### [facility] [address] [address] [address] Jayy Marquez EGFR-AF ETHIOPIAN >60 Normal >=60 [facility] Comment on above: Performed By: #### B MP #### [facility] [address] [address] [address] Jayy Marquez EGFR-NON AF ETHIOPIAN >60 Normal >=60 [facility] Comment on above: Performed By: #### B MP #### [facility] [address] [address] [address] Jayy Marquez Glucose [Mass/Vol] 203 mg/dL Critically high 74-106 [facility] Comment on above: Performed By: #### B MP #### [facility] [address] [place] [address] Dr. Jayy Marquez Potassium [Moles/Vol] 3.9 mmol/L Normal 3.5-5.1 [facility] Comment on above: Performed By: #### B MP #### [facility] [address] [address] [address] Jayy Marquez Sodium [Moles/Vol] 135 mmol/L Critically low 136-145 Th [facility] Comment on above: Performed By: #### B MP #### [facility] [address] [address] [address] Jayy Marquez Urea nitrogen [Mass/Vol] 11.0 mg/dL Normal 7.0-18.0 [facility] Comment on above: Performed By: #### B MP #### [facility] [address] [address] [address] Jayy Marquez Urea nitrogen/Creatinine [Mass ratio] 13.4 mg/mg Normal [facility] Comment on above: Performed By: #### B MP #### [facility] [address] [address] [address] Jayy Marquez Anion gap [Moles/Vol] 12.9 mmol/L Normal [facility] Comment on above: Performed By: #### C YTO #### [facility] [address] [address] [address] Jayy Marquez Calcium [Mass/Vol] 9.2 mg/dL Normal 8.5-10.1 [facility] Comment on above: Performed By: #### C YTO #### [facility] [address] [place] [address] Dr. Jayy Marquez Chloride [Moles/Vol] 98 mmol/L Normal 98-107 [facility] Comment on above: Performed By: #### C YTO #### [facility] [address] [place] [address] Dr. Jayy Marquez CO2 [Moles/Vol] 25.8 mmol/L Normal 21.0-32.0 [facility] Comment on above: Performed By: #### C YTO #### [facility] [address] [place] [address] Dr. Jayy Marquez Creatinine [Mass/Vol] 0.90 mg/dL Normal 0.55-1.02 [facility] Comment on above: Performed By: #### C YTO #### [facility] [address] [place] [address] Dr. Jayy Marquez EGFR-AF ETHIOPIAN >60 Normal >=60 [facility] Comment on above: Performed By: #### C YTO #### [facility] [address] [place] [address] Dr. Jayy Marquez EGFR-NON AF ETHIOPIAN >60 Normal >=60 [facility] Comment on above: Performed By: #### C YTO #### [facility] [address] [place] [address] Dr. Jayy Marquez Glucose [Mass/Vol] 150 mg/dL Critically high 74-106 [facility] Comment on above: Performed By: #### C YTO #### [facility] [address] [place] [address] Dr. Jayy Marquez Potassium [Moles/Vol] 3.7 mmol/L Normal 3.5-5.1 [facility] Comment on above: Performed By: #### C YTO #### [facility] [address] [place] [address] Dr. Jayy Marquez Sodium [Moles/Vol] 133 mmol/L Critically low 136-145 [facility] Comment on above: Performed By: #### C YTO #### [facility] [address] [place] [address] Dr. Jayy Marquez Urea nitrogen [Mass/Vol] 14.0 mg/dL Normal 7.0-18.0 [facility] Comment on above: Performed By: #### C YTO #### [facility] [address] [place] [address] Dr. Jayy Marquez Urea nitrogen/Creatinine [Mass ratio] 15.6 mg/mg Normal [facility] Comment on above: Performed By: #### C YTO #### [facility] [address] [place] [address] Dr. Jayy Marquez RESPIRATORY PANEL PLUSon Adenovirus Not detected Normal NOT DETECTED [facility] Comment on above: Performed By: #### C VDAGS #### [facility] [address] [place] [address] Dr. Jayy Marquez B. Parapertusis Not detected Normal NOT DETECTED [facility] Comment on above: Performed By: #### C VDAGS #### [facility] [address] [place] [address] Dr. Jayy Marquez B. Pertussis Not detected Normal NOT DETECTED [facility] Comment on above: Performed By: #### C VDAGS #### [facility] [address] [place] [address] Dr. Jayy Marquez Chlamydia Pneumoniae Not detected Normal NOT DETECTED [facility] Comment on above: Performed By: #### C VDAGS #### [facility] [address] [address] [address] Jayy Marquez Coronavirus 229E Not detected Normal NOT DETECTED [facility] Comment on above: Performed By: #### C VDAGS #### [facility] [address] [place] [address] Dr. Jayy Marquez Coronavirus HKU1 Not detected Normal NOT DETECTED [facility] Comment on above: Performed By: #### C VDAGS #### [facility] [address] [place] [address] Dr. Jayy Marquez Coronavirus NL63 Not detected Normal NOT DETECTED [facility] Comment on above: Performed By: #### C VDAGS #### [facility] [address] [place] [address] Dr. Jayy Marquez Coronavirus OC43 Not detected Normal NOT DETECTED [facility] Comment on above: Performed By: #### C VDAGS #### [facility] [address] [place] [address] Dr. Jayy Marquez Influenza A H1 Not detected Normal NOT DETECTED [facility] Comment on above: Performed By: #### C VDAGS #### [facility] [address] [place] [address] Dr. Jayy Marquez Influenza A H1 2009 Not detected Normal NOT DETECTED [facility] Comment on above: Performed By: #### C VDAGS #### [facility] [address] [place] [address] Dr. Jayy Marquez Influenza A H3 Not detected Normal NOT DETECTED [facility] Comment on above: Performed By: #### C VDAGS #### [facility] [address] [place] [address] Dr. Jayy Marquez Influenza B Not detected Normal NOT DETECTED [facility] Comment on above: Performed By: #### C VDAGS #### [facility] [address] [place] [address] Dr. Jayy Marquez Metapneumovirus Not detected Normal NOT DETECTED [facility] Comment on above: Performed By: #### C VDAGS #### [facility] [address] [place] [address] Dr. Jayy Marquez Mycoplas. Pneumoniae Not detected Normal NOT DETECTED [facility] Comment on above: Performed By: #### C VDAGS #### [facility] [address] [address] [address] Jayy Marquez Parainfluenza 1 Not detected Normal NOT DETECTED [facility] Comment on above: Performed By: #### C VDAGS #### [facility] [address] [place] [address] Dr. Jayy Marquez Parainfluenza 2 Not detected Normal NOT DETECTED [facility] Comment on above: Performed By: #### C VDAGS #### [facility] [address] [place] [address] Dr. Jayy Marquez Parainfluenza 3 Not detected Normal NOT DETECTED [facility] Comment on above: Performed By: #### C VDAGS #### [facility] [address] [place] [address] Dr. Jayy Marquez Parainfluenza 4 Not detected Normal NOT DETECTED [facility] Comment on above: Performed By: #### C VDAGS #### [facility] [address] [place] [address] Dr. Jayy Marquez Rhino/Enterovirus Not detected Normal NOT DETECTED [facility] Comment on above: Performed By: #### C VDAGS #### [facility] [address] [place] [address] Dr. Jayy Marquez RP2 Header 1 RESPIRATORY PANEL: VIRUSES Normal [facility] Comment on above: Performed By: #### C VDAGS #### [facility] [address] [place] [address] Dr. Jayy Marquez RP2 Header 2 RESPIRATORY PANEL: BACTERIA Normal [facility] Comment on above: Performed By: #### C VDAGS #### [facility] [address] [place] [address] Dr. Jayy Marquez RSV Not detected Normal NOT DETECTED [facility] Comment on above: Performed By: #### C VDAGS #### [facility] [address] [place] [address] Dr. Jayy Marquez SARS-CoV-2 (COVID-19) RNA SILVINO+probe Ql (Unsp spec) Not detected Normal NOT DETECTED [facility] Comment on above: Performed By: #### C VDAGS #### [facility] [address] [place] [address] Dr. Jayy Marquez SYMPTOMATIC COVID-19 ANTIGEN on 09-22-2022 EUA Statement SEE BELOW Normal [facility] Comment on above: Result Comment: This test [...] sooner. Performed By: #### C VDAGS #### [facility] [address] [place] [address] Dr. Jayy Marquez SARS-CoV-2 (COVID-19) RNA SILVINO+probe Ql (Unsp spec) Negative Normal NEGATIVE [facility] Comment on above: Performed By: #### C VDAGS #### [facility] [address] [place] [address] Dr. Jayy Marquez TROPONIN, HIGH SENSITIVITYon 09-22-2022 HSTROP 12.9 pg/mL Normal 4.0-51.3 [facility] Comment on above: Result Comment: CUT- OFF POINTS HAVE BEEN ESTABLISHED BASED ON THE FOURTH UNIVERSAL DEFINITIONS OF MYOCARDIAL INFARCTION. THE UPPER REFERENCE LIMIT (URL) OF TROPONIN, DEFINED THE 99TH PERCENTILE OF cTnI DISTRIBUTION IN A REFERENCE POPULATION, HAS BEEN CONFIRMED THE DECISION THRESHOLD FOR NH DIAGNOSIS. Performed By: #### B MP, BNP, HSTROPN #### [facility] [address] [address] [address] Jayy Marquez XR CHEST 1 Von [...] ARIANNA CEVALLOS Date: 2022-09-22 00:51 Normal [facility] CT CHEST WO CONon 09-01-2022 CT [...] HANDY KEATING Date: 2022-09-01 15:28 Normal [facility] ACID FAST SMEAR AND CXon Acid Fast Culture Negative Normal [facility] Comment on above: Result Comment: No a goyo fast bacilli isolated after 6 weeks. Performed By: #### A FB #### [facility] [address] [place] [address] Dr. Jayy Marquez Performed By: #### C VDAGS #### [facility] [address] [place] [address] Dr. Jayy Marquez Acid Fast Smear Negative Normal [facility] Comment on above: Performed By: #### A FB #### [facility] [address] [place] [address] Dr. Jayy Marquez Performed By: #### C VDAGS #### [facility] [address] [place] [address] Dr. Jayy Marquez [employer] Specimen Processing Concentration [facility] Comment on above: Performed By: #### A FB #### [facility] [address] [place] [address] Dr. Jayy Marquez Performed By: #### C VDAGS #### [facility] [address] [place] [address] Dr. Jayy Marquez FUNGAL CULTUREon 04-23-2022 Fungus (Mycology) Culture Final report [facility] Comment on above: Performed By: #### C XFUN #### [facility] [address] [place] [address] Dr. Jayy Marquez Performed By: #### C VDAGS #### [facility] [address] [place] [address] Dr. Jayy Marquez Fungus Stain Final report [facility] Comment on above: Performed By: #### C XFUN #### [facility] [address] [place] [address] Dr. Jayy Marquez Performed By: #### C VDAGS #### [facility] [address] [place] [address] Dr. Jayy Marquez Result 1 Comment Normal [facility] Comment on above: Result Comment: TANYA/ Calcofluor preparation: no fungus observed. Performed By: #### C XFUN #### [facility] [address] [place] [address] Dr. Jayy Marquez Result Comment: No y east or mold isolated after 4 weeks. Performed By: #### C VDAGS #### [facility] [address] [place] [address] Dr. Jayy Marquez CULTURE OTHERon 03-26-2022 CULTURE [...] S F Tetracycline >=16 R F Normal [facility] Comment on above: Performed By: #### C YTO #### [facility] [address] [place] [address] Dr. Jayy Marquez CULTURE OTHERon 03-25-2022 CULTURE [...] F Levofloxacin 0.25 S F Normal [facility] Comment on above: Performed By: #### C YTO #### [facility] [address] [place] [address] Dr. Jayy Marquez CYTOLOGYon 03-23-2022 SENT TO REF LAB 03/23/2022 Normal [facility] Comment on above: Performed By: #### C YTO #### [facility] [address] [address] [address] Jayy AMADOR STAINon 03-23-2022 DIPHTHEROIDS Normal [facility] Comment on above: Performed By: #### C VDAGS #### [facility] [address] [address] [address] Jayy Marquez EPITHELIALS Normal [facility] Comment on above: Performed By: #### C VDAGS #### [facility] [address] [address] [address] Jayy Marquez FUNGAL ELEMENTS Normal [facility] Comment on above: Performed By: #### C VDAGS #### [facility] [address] [address] [address] Jayy AMADOR NEG BACILLI FEW Normal [facility] Comment on above: Performed By: #### C VDAGS #### [facility] [address] [address] [address] Jayy AMADOR NEG DIPPLOCOCCI Normal [facility] Comment on above: Performed By: #### C VDAGS #### [facility] [address] [address] [address] Jayy AMADOR POS BACILLI Normal [facility] Comment on above: Performed By: #### C VDAGS #### [facility] [address] [address] [address] Jayy Marquez GRAM POSITIVE COCCI FEW Normal [facility] Comment on above: Performed By: #### C VDAGS #### [facility] [address] [address] [address] Jayy Marquez GRAM STAIN SOURCE Rt Middle Lobe Lavage Normal [facility] Comment on above: Performed By: #### C VDAGS #### [facility] [address] [address] [address] Jayy Marquez GRAM STAIN SOURCE Lingula Lt Upper Lob e Lavage Normal [facility] Comment on above: Performed By: #### C VDAGS #### [facility] [address] [address] [address] Jayy Marquez GS_DIPTH Normal [facility] Comment on above: Performed By: #### C VDAGS #### [facility] [address] [place], [place] [address] Dr. Jayy Marquez WBC MANY Normal [facility] Comment on above: Performed By: #### C VDAGS #### [facility] [address] [place], [place] [address] Dr. Jayy Marquez WBC MODERATE Normal [facility] Comment on above: Performed By: #### C VDAGS #### [facility] [address] [place], [place] [address] Dr. Jayy Marquez [facility]25 SARS-CoV-2 (COVID-19) RNA SILVINO+probe Ql (Unsp spec) Not detected Normal NOT DETECTED [facility] Comment on above: Result Comment: This test is not yet approved or cleared by the [place] FDA. When there are no FDA-approved or cleared tests available, and other criteria are met, FDA can make tests available under an emergency access mechanism called an Emergency Use Authorization (EUA). The EUA for this test is supported by the Remediation Project Engineer of Health and Human Service's (HHS's) declaration [...] SARS-CoV-2. Performed By: #### C YTO #### [facility] [address] [place], [place] [address] LUNG CANCER SCREENINGon [...] HANDY KEATING Date: 2022-03-04 16:14 Normal [facility] CBC AUTO DIFFon 10-30-2021 BASO # 0.0 103/ul Normal 0.0-0.1 [facility] Comment on above: Performed By: #### C VDAGS #### [facility] [address] [address] [address] Jayy Marquez Basophils/100 WBC (Bld) 0.7 % Normal 0.2-2.0 [facility] Comment on above: Performed By: #### C VDAGS #### [facility] [address] [address] [address] Jayy Marquez EO # 0.2 103/ul Normal 0.0-0.7 [facility] Comment on above: Performed By: #### C VDAGS #### [facility] [address] [place] [address] Dr. Jayy Marquez Eosinophils/100 WBC (Bld) 2.6 % Normal 0.9-7.0 [facility] Comment on above: Performed By: #### C VDAGS #### [facility] [address] [place] [address] Dr. Jayy Marquez Erythrocyte distribution width (RBC) [Ratio] 14.7 % Normal 11.0-15.0 [facility] Comment on above: Performed By: #### C VDAGS #### [facility] [address] [place] [address] Dr. Jayy Marquez Hematocrit (Bld) [Volume fraction] 48.9 % Critically high 36.0-48.0 [facility] Comment on above: Performed By: #### C VDAGS #### [facility] [address] [place] [address] Dr. Jayy Marquez Hemoglobin (Bld) [Mass/Vol] 15.5 g/dL Normal 12.0-16.0 [facility] Comment on above: Performed By: #### C VDAGS #### [facility] [address] [place] [address] Dr. Jayy Marquez IG # 0.01 10e3/ul Normal 0.00-0.03 [facility] Comment on above: Performed By: #### C VDAGS #### [facility] [address] [place] [address] Dr. Jayy Marquez IG % 0.2 % Normal 0.0-0.5 [facility] Comment on above: Performed By: #### C VDAGS #### [facility] [address] [place] [address] Dr. Jayy Marquez LYMPH # 1.6 103/ul Normal 1.2-3.8 [facility] Comment on above: Performed By: #### C VDAGS #### [facility] [address] [place] [address] Dr. Jayy Marquez Lymphocytes/100 WBC (Bld) 26.0 % Normal 20.5-60.0 [facility] Comment on above: Performed By: #### C VDAGS #### [facility] [address] [place] [address] Dr. Jayy Marquez MANUAL DIFF REQ NO Normal [facility] Comment on above: Performed By: #### C VDAGS #### [facility] [address] [place] [address] Dr. Jayy Marquez MCH (RBC) [Entitic mass] 31.5 pg Normal 26.7-34.0 [facility] Comment on above: Performed By: #### C VDAGS #### [facility] [address] [place] [address] Dr. Jayy Marquez MCHC (RBC) [Mass/Vol] 31.7 g/dL Normal 29.9-35.2 [facility] Comment on above: Performed By: #### C VDAGS #### [facility] [address] [place] [address] Dr. Jayy Marquez MCV (RBC) [Entitic vol] 99.4 fL Critically high 81.0-99.0 [facility] Comment on above: Performed By: #### C VDAGS #### [facility] [address] [place] [address] Dr. Jayy Marquez MONO # 0.8 103/ul Normal 0.3-0.8 [facility] Comment on above: Performed By: #### C VDAGS #### [facility] [address] [place] [address] Dr. Jayy Marquez Monocytes/100 WBC (Bld) 12.4 % Critically high 1.7-12.0 [facility] Comment on above: Performed By: #### C VDAGS #### [facility] [address] [place] [address] Dr. Jayy Marquez NEUT # 3.6 103/ul Normal 1.4-6.5 [facility] Comment on above: Performed By: #### C VDAGS #### [facility] [address] [place] [address] Dr. Jayy Marquez Neutrophils/100 WBC (Bld) 58.1 % Normal 43.0-75.0 [facility] Comment on above: Performed By: #### C VDAGS #### [facility] [address] [place] [address] Dr. Jayy Marquez Platelet mean volume (Bld) [Entitic vol] 10.1 fL Normal 9.5-13.5 [facility] Comment on above: Performed By: #### C VDAGS #### [facility] [address] [place] [address] Dr. Jayy Marquez PLT 234 103/ul Normal 150-450 [facility] Comment on above: Performed By: #### C VDAGS #### [facility] [address] [place] [address] Dr. Jayy Marquez RBC 4.92 106/ul Normal 4.20-5.40 [facility] Comment on above: Performed By: #### C VDAGS #### [facility] [address] [place] [address] Dr. Jayy Marquez WBC 6.2 103/ul Normal 4.0-11.0 [facility] Comment on above: Performed By: #### C VDAGS #### [facility] [address] [place] [address] Dr. Jayy Marquez FREE T3on 10-30-2021 FREE T3 2.73 pg/mlL Normal 2.18-3.98 [facility] Comment on above: Performed By: #### C VDAGS #### [facility] [address] [place] [address] Dr. Jayy Marquez FREE T4on 10-30-2021 Free T4 [Mass/Vol] 1.25 ng/dL Normal 0.76-1.46 [facility] Comment on above: Performed By: #### F T4 #### [facility] [address] [place] [address] Dr. Jayy Marquez PROF CHEM 8 (BAS METB)on Anion gap [Moles/Vol] 8.8 mmol/L Normal [facility] Comment on above: Performed By: #### C VDAGS #### [facility] [address] [address] [address] Jayy Marquez Calcium [Mass/Vol] 9.4 mg/dL Normal 8.5-10.1 [facility] Comment on above: Performed By: #### C VDAGS #### [facility] [address] [address] [address] Jayy Marquez Chloride [Moles/Vol] 104 mmol/L Normal 98-107 [facility] Comment on above: Performed By: #### C VDAGS #### [facility] [address] [address] [address] Jayy Marquez CO2 [Moles/Vol] 29.4 mmol/L Normal 21.0-32.0 [facility] Comment on above: Performed By: #### C VDAGS #### [facility] [address] [place] [address] Dr. Jayy Marquez Creatinine [Mass/Vol] 0.74 mg/dL Normal 0.55-1.02 [facility] Comment on above: Performed By: #### C VDAGS #### [facility] [address] [address] [address] Jayy Marquez EGFR-AF ETHIOPIAN >60 Normal >=60 [facility] Comment on above: Performed By: #### C VDAGS #### [facility] [address] [place] [address] Dr. Jayy Marquez EGFR-NON AF ETHIOPIAN >60 Normal >=60 [facility] Comment on above: Performed By: #### C VDAGS #### [facility] [address] [place] [address] Dr. Jayy Marquez Glucose [Mass/Vol] 108 mg/dL Critically high 74-106 [facility] Comment on above: Performed By: #### C VDAGS #### [facility] [address] [place] [address] [address] Jayy Marquez Potassium [Moles/Vol] 4.2 mmol/L Normal 3.5-5.1 [facility] Comment on above: Performed By: #### C VDAGS #### [facility] [address] [place] [address] Dr. Jayy Marquez Sodium [Moles/Vol] 138 mmol/L Normal 136-145 [facility] Comment on above: Performed By: #### C VDAGS #### [facility] [address] [place] [address] Dr. Jayy Marquez Urea nitrogen [Mass/Vol] 16.0 mg/dL Normal 7.0-18.0 [facility] Comment on above: Performed By: #### C VDAGS #### [facility] [address] [place] [address] Dr. Jayy Marquez Urea nitrogen/Creatinine [Mass ratio] 21.6 mg/mg Normal [facility] Comment on above: Performed By: #### C VDAGS #### [facility] [address] [place] [address] Dr. Jayy Marquez SGOTon 10-30-2021 AST [Catalytic activity/Vol] 11 U/L Critically low 15-37 [facility] Comment on above: Performed By: #### B MP #### [facility] [address] [place] [address] Dr. Jayy Marquez SGPTon 10-30-2021 ALT [Catalytic activity/Vol] 22 U/L Normal 14-59 [facility] Comment on above: Performed By: #### C VDAGS #### [facility] [address] [place] [address] Dr. Jayy Marquez TSHon 10-30-2021 TSH 1.593 uIU/mL Normal 0.358-3.740 [facility] Comment on above: Performed By: #### B MP #### [facility] [address] [place] [address] LUNG SCREENING (ANNUAL)on 09-26-2019 Patient Name: AKIL CHACON ---CT--- Exam Date/Time 09/26/2019 10:55:[address] Low Dose Lung Scrn Ordering Physician RAVINDRA THURMAN, SHELBI PERLA Accession Number [id number] CPT4 Codes G0297 (CT Low Dose Lung [...] ROBERT Transcribed Date and Time: 09/26/2019 1:18 [place], [place] Octav[facility], [facility] Incoming Radiology Results From [facility] - 09/26/2019 1:28 PM EDT Patient Name: AKIL CHACON ---CT--- Exam Date/Time 09/26/2019 10:55:[address] Low Dose Lung Scrn Ordering Physician RAVINDRA THURMAN TAMMY KAY Accession Number [id number] CPT4 Codes G0297 (CT Low Dose Lung [...] ROBERT Transcribed Date and Time: 09/26/2019 1:18 [place], [place] CT Low Dose Lung Screeningon 09-26-2019 CT Low Dose Lung Screening Patient Name: AKIL CHACON CT Exam Date/Time 09/26/2019 10:55:[address] Low Dose Lung Scrn Ordering Physician RAVINDRA THURMAN TAMMY KAY Accession Number [id number] CPT4 Codes G0297 (CT Low Dose Lung [...] Transcribed Date and Time: 09/26/2019 1:18 Normal [facility] OBSOLETEon 11-13-2016 OBSOLETE Refill (ENDMED) ----AKIL CHACON ([id number]) 1955 [facility] Time Provider Department11/13/16 [place]LOTTE RATLIFF [...] by MADELEINE ARIAS MA on 11/16/16 Normal [facility] Colonoscopy w/ or w/o biopsy on 01-12-2013 Colon polyps Internal hemorrhoids Normal appearing terminal ileum and colonic mucosa, s/p random biopsies [facility] This order was created through External Result Entry [facility] Vital Signs Date Time Vital Sign Value Performing Clinician Facility 03-28-2024 11:16-0500 Body height 162.6 cm Antonio Hopkins MD Work Phone: [facility] 03-28-2024 11:16-0500 Body mass index (BMI) [Ratio] 31.07 kg/m2 Antonio Hopkins MD Work Phone: [facility] 03-28-2024 11:16-0500 Body temperature 97.11 [degF] Antonio Hopkins MD Work Phone: [facility] 03-28-2024 11:16-0500 Body weight 82.1 kg Antonio Hopkins MD Work Phone: [facility] 03-28-2024 11:16-0500 Diastolic blood pressure 60 mm[Hg] Antonio Hopkins MD Work Phone: [facility] 03-28-2024 11:16-0500 Heart rate 71 /min Antonio Hopkins MD Work Phone: [facility] 03-28-2024 11:16-0500 Respiratory rate 22 /min Antonio Hopkins MD Work Phone: [facility] 03-28-2024 11:16-0500 SaO2% (BldA) [Mass fraction] 97 % Antonio Hopkins MD Work Phone: [facility] 03-28-2024 11:16-0500 Systolic blood pressure 116 mm[Hg] Antonio oHpkins MD Work Phone: [facility] 04-21-2023 14:10-0500 Blood Pressure Location Kale HANNA [facility] 04-21-2023 14:10-0500 Diastolic blood pressure 78 mm[Hg] Kale HANNA [facility] 04-21-2023 14:10-0500 Heart rate 72 /min Kale HANNA [facility] 04-21-2023 14:10-0500 Respiratory rate 16 /min Kale HANNA [facility] 04-21-2023 14:10-0500 Systolic blood pressure [...] Start: 06-04-2023 End: 06-05-2023 ambulatory [facility] Start: 05-12-2023 End: 05-12-2023 ambulatory Kale Hanna Facility:[facility] Start: 05-12-2023 End: 05-13-2023 ambulatory Kale HANNA [facility] Work Phone: Start: 05-12-2023 End: 05-12-2023 Departed Referred MD Kale Hanna Work Phone: [facility] Start: 04-21-2023 End: 04-22-2023 ambulatory Kale [...] preprocedural cardiovascular examination ALIS HEAD . [facility] Start: 03-23-2022 Encounter for preprocedural laboratory examination ALIS HEAD . [facility] Start: 03-17-2022 End: 03-18-2022 ambulatory ALIS HEAD . Facility:[facility] Start: 03-17-2022 End: 03-18-2022 Encounter for preprocedural laboratory examination ALIS HAED . Facility:[facility] Start: 03-04-2022 End: 03-05-[address] HANDY KEATING Facility:[facility] Start: 10-30-2021 End: 10-31-[address] ANTONIO HOPKINS Facility:[facility] Start: 09-26-2019 End: 09-26-2019 Subsequent hospital visit by physician Shelbi Thurman Work Phone: [facility] Comment on above: Cigarette nicotine d ependence with nicotine-induced disorder Start: 09-08-2018 Patient encounter procedure Lupillo Nichols [facility] Start: 04-04-2018 Patient encounter procedure Eddi Zunigasean [facility] Start: 03-08-2018 Patient encounter procedure MONICA FIGUEROA [facility] Start: 03-07-2018 [facility] Start: 02-22-2018 Patient encounter procedure Ottoniel Fuchs [facility] Start: 09-14-2017 Patient encounter procedure MONICA FIGUEROA [facility] Start: 08-14-2017 Emergency department patient visit MARTIN DOZIER [facility] Start: 08-13-2017 Patient encounter procedure Ottoniel Fuchs [facility] Start: 01-12-2013 Conversion Encounter Ottoniel jackson MD Work Phone: [facility] Start: 01-12-2013 Legacy Encounter Ottoniel osborn MD Work Phone: [facility] Procedures Date Procedure Procedure Detail Performing Clinician Start: 01-31-2024 ALL HEMOGLOBIN Generic External Data Provider Start: 06-24-2023 Mammography Generic Pr ovider Start: 05-12-2023 Colonoscopy Generic Pr ovider Start: 09-26-2019 Ldct for lung ca screen Shelbi Thurman Work Phone: Start: 01-12-2013 COLONOSCOPY W/ OR W/ O BIOPSY Ottoniel Fuchs MD Work Phone: Bronchoscopy Kale NILL section Kale NIL L Colonoscopy Kael NILL Extraction of cataract [place]on el NILL Laparoscopy Kale NILL Ligation of fallopian tube Cammy delgadillo NILL Thyroidectomy Kale NILL Plan of Treatment Date Care Activity Detail Author Start: 05-12-2033 Screening for malign ant neoplasm of colon [facility] Start: 12-24-2025 DTaP/Tdap/Td vaccine (2 - Td) DTaP/Tdap/Td vaccine (2 - Td) [facility] [place] Start: 09-26-2024 End: 09-26-2024 Patient encounter procedure 09/26/2024 1:00 PM EDT Office Visit [facility] [address] [place] [phone] Antonio Hopkins MD [address] [place] [phone] [facility] Start: 06-23-2024 Screening for malign ant neoplasm of breast Mammogram [facility] Start: 03-28-2024 End: 03-28-2024 Patient encounter procedure [facility] Comment on above: Arrived Start: 12-30-2023 Lipid panel Lipid screen [place], [place] Start: 12-26-2023 Influenza vaccination Influenza Vacc ine (#1) [facility] Start: 02-11-2023 Screening for malign ant neoplasm of cervix Cervical cancer screen [place], [place] Start: 01-12-2023 Screening for malign ant neoplasm of colon Colon cancer screen colonoscopy [place], [place] Start: 02-23-2020 Screening for malign ant neoplasm of breast Breast cancer screen [place], [place] Start: 02-13-2020 Pneumococcal 65+ yea rs Vaccine (1 of 1 - PPSV23) Pneumococcal 65+ years Vaccine (1 of 1 - PPSV23) [place], [place] Start: 02-08-2020 End: 02-08-2020 Office Visit 02/08/2020 Office Visit Family Medicine Ottoniel Fuchs MD [address] [facility] [place] [address] [facility] Start: 12-30-2019 Creatinine measurement Creatinine mo [place]itoring [place], [place] Start: 12-30-2019 HbA1c (Bld) [Mass fraction] A1C test (Diabetic or Prediabetic) [place] Start: 12-30-2019 Potassium monitoring Potassium monit [place]ing [place] Start: 12-30-2019 TSH Qn TSH testing [place], [place] Start: 09-09-2019 Screening for malign ant neoplasm of lung Low dose CT lung screening [place], [place] Start: 08-09-2019 Annual Wellness Visi t (AWV) Annual Wellness Visit (AWV) [place] Start: 02-11-2019 Medicare Annual Wellness (AWV) Medicare Annual Wellness (AWV) [facility] Start: 1955 Screening for malign ant neoplasm of colon [facility] Immunizations Immunization Date Immunization Notes Care Provider Fa cility 03-08-2023 influenza virus vacc ine, unspecified formulation Kale HANNA [facility] 02-04-2021 SARS-CoV-2 (COVID-19 ) Ad26 vaccine, recombinant Kale HANNA [facility] Comment on above: Result Comment: 2022: [id number] 03-30-2019 Seasonal, quadrivale nt, recombinant, injectable influenza vaccine, preservative free [facility] 12-29-2018 zoster vaccine recombinant [facility] 02-11-2018 influenza virus vacc ine, unspecified formulation [facility] [place] 02-11-2018 influenza, injectabl e, quadrivalent, contains preservative [facility] 02-11-2018 zoster vaccine recombinant [facility] 12-25-2015 tetanus toxoid, redu florentino diphtheria toxoid, and acellular pertussis vaccine, adsorbed [facility] 02-12-2015 pneumococcal polysaccharide vaccine, 23 valent [facility] 02-12-2015 zoster vaccine, live [facility] Payers Date Payer Category Payer Self-pay 2023 Medicare ANTHEM MEDICARE ADVANTAGE [facility] MEDICARE ADVANTAGE [id number] 2023-Present [address] [place] [id number] 2023 Medicare (Managed Care) [facility] [id number] 2023 Unknown [id number] 2019 Medicare MEDICARE MEDICAR E PART A AND B xxxxxxxxxxx 2019-Present [phone] [address] [address] [place] [address] xxxxxxxxxxx [id number] 2019 Private Health Insurance AETROBERTO AGUIRRE SENIOR MEDICARE SUPP xxxxxxxxxx 2019-Present [phone] [address] [place] [address] xxxxxxxxxx [id number] 1960 Unknown [id number] 2.0.1.384389.3.579.2 1960 Unknown [id number] 2.840.1.192453.3.579.2 1959 Medicare [id number] 1959 Private Health Insurance CLI [id number] 1954 Unknown [id number] 2.840.1.973822.3.579.2 1954 Unknown [id number] 2.840.1.672350.3.579.2 1954 Unknown [id number] 2.840.1.479851.3.579.2 1954 Unknown [id number] 2.16840.1.100528.3.579.2 1954 Unknown [id number] 2.16840.1.751098.3.579.2 1954 Unknown [id number] 2.16840.1.072263.3.579.2 1954 Unknown [id number] 2.16.840.1.028941.3.579.2 .668 1954 Unknown [id number] 2.16.840.1.716269.3.579.2 .593 1954 Unknown [id number] 2.16.840.1.273117.3.579.2 .593 1954 Unknown [id number] 2.16.840.1.677790.3.579.2 .593 1954 Unknown [id number] 2.16.840.1.475211.3.579.2 .593 1954 Unknown [id number] 2.16.840.1.262410.3.579.2 .593 1954 Unknown [id number] 2.16.840.1.333955.3.579.2 .593 1954 Unknown [id number] 2.16.840.1.459221.3.579.2 .727 1954 Unknown [id number] 2.16.840.1.462681.3.579.2 .727 1954 Unknown [id number] 2.16.840.1.940800.3.579.2 .727 1954 Unknown [id number] 2.16.840.1.974431.3.579.2 .1259 1954 Unknown [id number] 2.16.840.1.649469.3.579.2 .1259 1954 Unknown [id number] 2.16.840.1.058198.3.579.2 .1259 Unknown Social History Date Type Detail Facility Start: 08-02-1971 Tobacco smoking status OHIS Current every day smoker [place], [place] Start: 08-02-1971 End: 09-24-2022 History of tobacco use Cigarette Smoker [place] Start: 08-09-2019 End: 09-26-2023 Cigarettes smoked current (pack per day) - Reported [facility] Start: 08-09-2019 Alcohol intake Current drinker of alcohol (finding) [place] Start: 12-29-2018 History SDOH Alcohol Frequency 4 [place] Start: 12-29-2018 History SDOH Alcohol Std Drinks 1 [place] Start: 12-29-2018 History SDOH Social Connections Get Together 2 [place] Start: 12-29-2018 History SDOH Social Connections Living 3 [place] Start: 12-29-2018 History SDOH Physical Activity DPW 0 [place] Start: 12-29-2018 History SDOH Financial 5 [place] Start: 08-16-2017 Tobacco Comment Less than a pack a day [place] Start: 08-16-2017 Alcohol Comment Occasionally [place] Start: 1955 Sex Assigned At Not on file [place] [facility] consumption unknown [facility] Start: 09-26-2023 End: 03-28-2024 Gender identity Not on file [facility] Start: 04-21-2023 End: 09-27-2023 Tobacco smoking status Ex-smoker (finding) [facility] Tobacco smoking status Never [facility] [place] Start: 1955 Sex Assigned At Female [facility] Start: 09-24-1972 End: 09-24-2022 History of tobacco use Current smoker [facility] Start: 09-27-2023 Tobacco use and exposure Smokeless tobacco non-user [facility] Do you belong to any clubs or organizations such as baptism groups, unions, fraternal or athletic groups, or [...] daily Aspirin therapy. documented in this encounter [facility] Clinical Note 04-21-2023 Note Date & Type Note Facility 04-21-2023 Note Chief Complaint consultation for screening colonoscopy [facility] Staff 67 year old female presents [...] 1 puff(s), Inhalation, Daily Flonase 0.05 mg/inh [place], 100 mcg, Nasal, Daily levothyroxine 112 mcg [...] of lung: Brother. (more content not included)... [facility] Comment on above: Result Comment: Elec tronically Signed By: ISIS ALCANTAR, Kale Thurman\Date and Time Signed: 04/21/23 14:46 EST Evaluation + Plan note Note Date & Type Note Facility Evaluation + Plan note No data available for this section [facility] [place] Evaluation note Note Date & Type Note Facility Evaluation note No assessment information availa [facility] Work Phone: Evaluation note Note Date [...] visit, subsequent- Primary documented in this encounter [facility] Discharge instructions Note Date & Type Note Facility Hospital Discharge instructions No data available for this section [facility] [place] Progress note Note Date & Type Note Facility Progress note No data available for this section [facility] [place] Summary Purpose Family History No Family History Records FoundNo Family History Records FoundNo Family History Records FoundNo Family History Records FoundNo Family History Records Found No data available for this section No Family History Records FoundNo Family History Records FoundNo Family History Records Found Advance Directives No Advanced Directives Records FoundDocuments on File Type Date 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 Advance Directives and Living Will 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 Reason for Referral Status Reason Specialty Diagnoses / Procedures Referre d By Contact Referred To Contact [facility] Diagnoses Cigarette nicotine dependence with nicotine-induced disorder Procedures CT LUNG SCREENING (ANNUAL) Shelbi Thurman, FABY - ORTHOTIC TECHNICIAN [address] [address] Assessments Diagnosis Cigarette nicotine dependence with nicotine-induced disorder Unspecified drug-induced mental disorder Additional Source Comments INFORMATION SOURCE (unrecogn ized section and content) DATE CREATED AUTHOR 10/20/2017 [facility] DATE CREATED AUTHOR AUTHOR'S ORGANIZ ATION 04/04/2018 [facility] DATE CREATED AUTHOR AUTHOR'S ORGANIZ ATION 04/09/[address] [facility] DATE CREATED AUTHOR AUTHOR'S ORGANIZ ATION 09/26/2019 [facility] DATE CREATED AUTHOR AUTHOR'S ORGANIZ ATION 10/02/2022 [facility] DATE CREATED AUTHOR AUTHOR'S ORGANIZ ATION 06/15/2023 [facility] DATE CREATED AUTHOR AUTHOR'S ORGANIZ ATION 06/15/2023 [facility] DATE CREATED AUTHOR AUTHOR'S ORGANIZ ATION 03/30/2024 [facility] dical Specialists EPIC Care Teams (unrecognized sec tion and content) Schedule Supervisor Relationship Specialty Start Date End Date Ottoniel Fuchs MD [facility] [address] [place], [place] [id number] PCP - General 12/21/13 Team Status: Inactive Member Role Status Dates Kale Hanna MD FACS Attending Provider Active Start: May 12, 2023 End: May 12, 2023 Schedule Supervisor Relationship Specialty Start Date End Date Antonio Hopkins MD [address] [place] [phone] PCP - General Family Medicine 10/21/22 Antonio Hopkins MD [address] [place] [phone] PCP - Jaycee DAVIS 11/25/23 Schedule Supervisor Relationship Specialty Start Date End Date Antonio Hopkins MD [address] [place] [phone] PCP - General Family Medicine 10/21/22 Antonio Hopkins MD [address] [place] [phone] PCP - Jaycee DAVIS 11/25/23 Schedule Supervisor Relationship Specialty Start Date End Date Antonio Hopkins MD [address] [place] [address] PCP - General Family Medicine 10/21/22 Antonio Hopkins MD [address] [place] [address] PCP - Jaycee DAVIS 11/25/23 [...] BE BASED ON THE PRIMARY CLINICAL RECORDS. [employer] provides no warranty or guarantee of the accuracy or completeness of information in this document.
[2024-04-14] VITALS (21 sets, daily range): BP systolic 105–116; BP diastolic 64–70; PULSE 65–109; TEMP 36.3–36.8; O2SAT 91–94
[2024-04-14] MEDS: LEVOTHYROXINE SODIUM 112 MCG TABLET PO (05:53)
[2024-04-14 06:44] LABS: Basophils Percent Auto 0.1 % (0.2-2.0); Hematocrit 41.8 % (36.0-48.0); Hemoglobin 13.7 g/dL (12.0-16.0); Immature Granulocytes Abs Auto 0.04 10^3/uL (0.00-0.03); Immature Granulocytes Pct Auto 0.4 % (0.0-0.5); Lymphocytes Absolute Auto 0.8 10^3/uL (1.2-3.8); Lymphocytes Percent Auto 7.8 % (20.5-60.0); Mean Corpuscular HGB Conc 32.8 g/dL (29.9-35.2); Mean Corpuscular Hemoglobin 30.9 pg (26.7-34.0); Mean Corpuscular Volume 94.1 fL (81.0-99.0); Mean Platelet Volume 9.7 fL (9.5-13.5); Monocytes Absolute Auto 0.2 10^3/uL (0.3-0.8); Monocytes Percent Auto 2.2 % (1.7-12.0); Neutrophils Absolute Auto 8.8 10^3/uL (1.4-6.5); Neutrophils Percent Auto 89.5 % (43.0-75.0); Platelet Count 222 10^3/uL (150-450); Red Blood Count 4.44 10^6/uL (4.20-5.40); Red Cell Distribution Width 13.1 % (11.0-15.0); White Blood Count 9.8 10^3/uL (4.0-11.0)
[2024-04-14 06:59] LABS: Alanine Aminotransferase 14 U/L (14-59); Albumin Globulin Ratio 0.8; Alkaline Phosphatase 66 U/L (46-116); Anion Gap 13.2; Aspartate Amino Transferase 10 U/L (15-37); Bilirubin Total 0.4 mg/dL (0.2-1.0); Calcium 9.1 mg/dL (8.5-10.1); Carbon Dioxide 27.2 mmol/L (21.0-32.0); Chloride 103 mmol/L (98-107); Estimated GFR (African America >60 (>=60 mL/min/1.73m^2); Estimated GFR (Non-African Ame >60 (>=60 mL/min/1.73m^2); Globulin 3.6 g/dL; Glucose 160 mg/dL (74-106); Magnesium 2.2 mg/dL (1.8-2.4); Potassium 4.4 mmol/L (3.5-5.1); Sodium 139 mmol/L (136-145); Total Protein 6.6 g/dL (6.4-8.2)
--- NOTE | 2024-04-14 08:36 | P.HP_ITS ---
HPI H&P: HPI History of Present Illness Chief complaint: COPD EXACERBATION HYPOXIA Narrative: Patient is a 68 y.o female with past medical history of COPD, empysema, Hypertension, hypothyroidism who presented to the ER last night for 2 days of increaed shortness of breath, chest tightness and productive cough. She denied fevers or chills, no n/v/d. Patient follows regularly with Dr. Wayne and reports good compliance with medications and inhalers. With exertion, patient was found to have oxygen saturations 87% so was placed on 2L NC oxygen. She does not have or use oxygen at home. Patient is a former smoker. This morning patient reports her shortness of breath is slightly improved, still coughing and still requiring oxygen. RR 20 ER findings: WBC's 9.8, DDimer 0.33, Cr 0.75, Hb 13.7, Troponin and ProBNP normal range, CXR: no acute cardiopulmonary process; patient was given Jasmin umedrol, started on Rocephin and Zithromax, given breathing treatment and admitted for Copd exacerbation with acute respiratory failure with hypoxia. Opioid HPI Opioid Management Most Recent Pain and Opioid Data: Last Pain Scale 0 04/13/24 17:47 04/13/24 Last Pain Intensity 0 10/01/22 10:57 10/01/22 Last Pain Assessment 04/14/24 10:48 Last ED Pain Assessment 04/13/24 17:47 Last ORT Total Score 2 04/13/24 18:43 04/13/24 Last ORT Risk Category Low Risk 04/13/24 18:43 04/13/24 Review of Systems ROS Narrative ROS: a complete review of systems were reviewed with patient and are positive as below or listed in History of Chief Complaint. General: no fever, chills, night sweats Head: no headache, trauma, visual changes, nausea or vomiting Skin: no reported rashes, itching or sores Eyes: no blurriness of vision Ears: no reported hearing loss, vertigo, earache, or tinnitus Throat: no sore throat, hoarseness, swelling of neck, or tongue pain Heart: no chest pain but chest tightness Lungs:shortness of breath and cough GI: no diarrhea or vomiting/nausea Urinary: no urinary urgency, frequency or pain Neuro: no numbness or tingling HEM: no bleeding issues or bruising ENDO: thyroid problems Psych: no anxiety or depression [facility] Medical History (Updated 04/14/24 @ 08:42 by Radha Soni DO) COPD (chronic obstructive pulmonary disease) ?J44.9 - Chronic obstructive pulmonary disease, unspecified (ICD-10) Normal colonoscopy Haemophilus influenzae infection ?A49.2 - Hemophilus influenzae infection, unspecified site (ICD-10) Acute respiratory acidosis ?J96.02 - Acute respiratory failure with hypercapnia (ICD-10) Acute exacerbation of bronchiectasis ?J47.1 - Bronchiectasis with (acute) exacerbation (ICD-10) Surgical History H/O tubal ligation ?Z98.51 - Tubal ligation status (ICD-10) H/O thyroidectomy ?E89.0 - Postprocedural hypothyroidism (ICD-10) H/O laparoscopy ?Z98.890 - Other specified postprocedural states (ICD-10) Previous section ?Z98.891 - History of uterine scar from previous surgery (ICD-10) Cataract extraction status ?Z98.49 - Cataract extraction status, unspecified eye (ICD-10) History of bronchoscopy ?Z98.890 - Other specified postprocedural states (ICD-10) Family History Other Family history of COPD (chronic obstructive pulmonary disease) Family history of cancer Family history of diabetes mellitus Heart disease Hyperlipidemia Social History Within the past year, how often did you have a drink containing alcohol: 2-4 times a month Smoking status: Former smoker Non-prescribed substance use: denies use Previous occupational history: retired Highest level of school completed/degree received: high school graduate Little interest or pleasure in doing things: not at all Feeling down, depressed, or hopeless: not at all Feel stressed/tense/nervous/anxious/difficulty sleeping: not at all Meds Home Medications and Allergies Home Medications ?Medication ?Instructions ?Recorded ?Confirmed ?Type albuterol sulfate 90 mcg/actuation 2 puff inhalation QID PRN 09/24/22 04/13/24 History aerosol inhaler (ProAir HFA) shortness of breath or wheezing aspirin 81 mg chewable tablet 81 mg PO QDAY 09/24/22 04/13/24 History (Aspirin Childrens) levothyroxine 112 mcg tablet 112 mcg PO .daily 09/24/22 04/13/24 History (Synthroid) losartan 50 mg tablet 50 mg PO .daily 09/24/22 04/13/24 History multivitamin 1 tab PO QDAY 09/24/22 04/13/24 History amlodipine 5 mg tablet 5 mg PO QD #30 tabs 10/02/22 04/13/24 Rx soft lens rinse,store solution 04/29/23 04/29/23 History fluticasone fur. 100 mcg-umeclid 1 inh inhalation DAILY 04/13/24 04/13/24 History 62.5 mcg-vilant 25 mcg inhalat.powder (Trelegy Ellipta) Allergies Allergy/AdvReac Type Severity Reaction Status Date / Time No Known Drug Allergies Allergy Verified 05/12/23 08:34 Exam Narrative Exam Narrative: General: Patient is alert, and oriented to person, place and time with normal affect, proper hygiene Skin: no visible rashes, or ulcers Head: atraumatic, acephalic Eyes: PERRLA, no nystagmus present, conjunctiva clear, no scleral icterus Ears: normal gross auditory acuity Heart: Normal rate and rhythm, no murmurs/rubs/gallops Lungs: audible wheezes, no crackles Abdomen: Normal audible bowel sounds, no distension, No palpable masses, no organomegaly, no rebound/guarding/ or rigidity Musculoskeletal: muscle atrophy noted, ROM is limited due to being in hospital bed, no swelling bilateral lower extremities Neuro: CN II-X grossly intact Constitutional Vital Signs, click to edit/add: Last Vital Signs Temp 98.3 F 04/14/24 07:28 Pulse 74 04/14/24 07:52 Resp 20 04/14/24 07:28 BP 116/70 04/14/24 07:28 Pulse Ox 94 L 04/14/24 07:28 O2 Del Method Nasal Cannula 04/14/24 07:28 O2 Flow Rate 2 04/14/24 07:28 Results Labs Labs: Short CBC 04/13/24 04/14/24 Range/Units 15:43 06:10 WBC 10.0 9.8 (4.0-11.0) 10^3/uL Hgb 14.2 13.7 (12.0-16.0) g/dL Hct 43.6 41.8 (36.0-48.0) % Plt Count 226 222 (150-450) 10^3/uL BMP 04/13/24 04/14/24 15:43 06:10 Sodium 137 139 Potassium 3.6 4.4 Chloride 103 103 Carbon Dioxide 28.0 27.2 BUN 8.0 12.0 Creatinine 0.89 0.75 Glucose 136 H 160 H Calcium 8.9 9.1 Liver Function 04/13/24 04/14/24 Range/Units 15:43 06:10 Total Bilirubin 0.6 0.4 (0.2-1.0) mg/dL AST 11 L 10 L (15-37) U/L ALT 16 14 (14-59) U/L Alkaline Phosphatase 73 66 (46-116) U/L Albumin 3.5 3.0 L (3.4-5.0) g/dL ABG ABG results: 04/13/24 15:43 VBG pH 7.393 VBG pCO2 47.3 Assessment and Plan Assessment and Plan (1) COPD exacerbation: Assessment and Plan: Normal chest X-ray along with cardiac work up: ddimer, trop and PRoBNP. Patient placed on telemetry, scheduled duonebs and pulmicort, Solumedrol 40mg q6 hours IV, Azithromycin 500mg IV and Rocephin 1g IV daily. Monitor respiratory status and the current need for oxygen. Currently 2L NC continuous despite observation status, she will be changed to inpatient status. OPEP therapy. Mucinex as needed. Viral testing negative. (2) Acute respiratory failure with hypoxia: Assessment and Plan: secondary to #1 (3) Hypothyroidism (acquired): Assessment and Plan: continue levothryroxine. (4) Hypertension, essential: Assessment and Plan: continue losartan and amlopdine Plan Patient is a full code continue lovenox for DVT prophylaxis Patient was observation status but is not improving, still requiring oxygen therapy so changed to inpatient status and expected to cross 2 midnights to treat her Acute Copd exacerbation with hypoxia.
[2024-04-14] MEDS: AMLODIPINE BESYLATE 5 MG TABLET PO (08:59)
[2024-04-14] MEDS: LOSARTAN POTASSIUM 50 MG TABLET PO (08:59)
[2024-04-14] MEDS: AZITHROMYCIN 500 MG in 0.9 % SODIUM CHLORIDE 250 ML 250 MG IV (08:59)
[2024-04-14] MEDS: ASPIRIN 81 MG TAB.CHEW PO (08:59)
[2024-04-14] MEDS: METHYLPREDNISOLONE SOD SUCC PF 40 MG/ML VIAL IVP ×3 (09:01→20:50)
[2024-04-14] MEDS: BUDESONIDE 0.5 MG/2 ML AMPULE NEB IH ×2 (10:17→23:02)
[2024-04-14] MEDS: IPRATROPIUM/ALBUTEROL SULFATE 3 ML AMPUL.NEB IH ×4 (10:17→23:02)
--- NOTE | 2024-04-14 10:39 | CM.NOTE ---
Rounds made with Dr. Soni, pt continues with shortness of breath at rest and with exertion. Dr. Soni will reevaluate pt this afternoon.
[2024-04-14] MEDS: GUAIFENESIN 200 MG/DEXTROMETHORPHAN 20 MG 10 ML UNIT DOSE CUP PO (20:50)
[2024-04-14] MEDS: TEMAZEPAM 15 MG CAPSULE PO (20:50)
[2024-04-15] VITALS (15 sets, daily range): BP systolic 117–146; BP diastolic 63–71; PULSE 77–108; TEMP 36.6–36.9; O2SAT 84–96
[2024-04-15] MEDS: IPRATROPIUM/ALBUTEROL SULFATE 3 ML AMPUL.NEB IH ×3 (03:55→11:04)
[2024-04-15] MEDS: METHYLPREDNISOLONE SOD SUCC PF 40 MG/ML VIAL IVP ×2 (04:47→08:46)
[2024-04-15] MEDS: LEVOTHYROXINE SODIUM 112 MCG TABLET PO (05:41)
[2024-04-15] MEDS: LOSARTAN POTASSIUM 50 MG TABLET PO (08:42)
[2024-04-15] MEDS: AMLODIPINE BESYLATE 5 MG TABLET PO (08:42)
[2024-04-15] MEDS: ASPIRIN 81 MG TAB.CHEW PO (08:42)
[2024-04-15] MEDS: AZITHROMYCIN 500 MG in 0.9 % SODIUM CHLORIDE 250 ML 250 MG IV (08:46)
--- NOTE | 2024-04-15 10:53 | PM.DS1 ---
DS: Providers Provider Date of admission: 04/14/24 12:10 Primary care physician: Antonio Riggins MD Admitting clinician: Radha Soni Attending physician on admission: Radha Soni Attending physician on discharge: Shaikh Nkechi Discharging clinician: Shaikh Nkechi Anticipated date of discharge: 04/15/24 DS: Diagnosis Discharge Diagnosis (1) COPD exacerbation: (2) Acute respiratory failure with hypoxia: (3) Hypothyroidism (acquired): (4) Hypertension, essential: DS: Summary Hospital Course Hospital Course: 68 y.o female with past medical history of COPD, emphysema, hypertension, hypothyroidism who presented to the ER with 2 days of increased shortness of breath, chest tightness and productive cough. Work up in ED revealed acute resp failure with hypoxia, with pulse Ox as low as 87% on RA. She was treated for COPD Exacerbation with IV solumedrol and duonebs. Patient clinically improved during the course of admission with improvement in her respiratory symptoms and hypoxia. She was weaned off of O2 today and was maintaining sats > 90% on RA. Patient is medically stable for discharge. She will need prednisone taper for COPD exacerbation. Patient counseled on smoking cessation. She was also educated on worrisome signs and symptoms and was instructed to come to ED if she developed worsening SOB/cough or persistent fevers. Status at Discharge Functional status at discharge: independent ambulation Overall status at discharge: patient is back to baseline Time Spent with Patient Time attestation: Total time spent providing and/or coordinating discharge services: Time spent: greater than 30 minutes Exam Constitutional Vital Signs, click to edit/add: Last Vital Signs Temp 98.4 F 04/15/24 08:32 Pulse 94 H 04/15/24 10:00 Resp 18 04/15/24 08:32 BP 133/63 04/15/24 08:32 Pulse Ox 91 L 04/15/24 08:32 O2 Del Method Nasal Cannula 04/15/24 08:32 O2 Flow Rate 1 04/15/24 08:32 Documenting provider has reviewed patient's vital signs: yes Common normals: no apparent distress and oriented x3 General appearance: cooperative Respiratory Common normals: normal respiratory effort and clear to auscultation bilaterally Effort & inspection: able to speak in complete sentences Auscultation: clear to auscultation bilaterally Cardio Common normals: regular rate, S1 normal heart sound and S2 normal heart sound Rate: regular rate Heart sounds: S1 normal and S2 normal Extremity Common normals: no clubbing, cyanosis or edema Neuro Common normals: oriented x3, moves all extremities and no focal motor deficits Psych Common normals: mental status grossly normal, denies hallucinations, denies homicidal ideation and denies suicidal ideation Discharge Plan Discharge Disposition: Home, Self-Care Condition: Good Discharge Medications: New albuterol sulfate [Ventolin HFA] 90 mcg/actuation HFA aerosol inhaler 2 inh inhalation Q6H PRN (Reason: shortness of breath or wheezing) Qty: 6.7 0RF prednisone 20 mg tablet 20 mg PO DAILY Qty: 20 0RF Rx Instructions: use 3 tab x 3 days, 2 tab x 3 days, 1 tab x 3 days, 1/2 tab x 4 days. Continued Trelegy Ellipta 100-62.5-25 mcg blister with device 1 inh inhalation DAILY levothyroxine [Synthroid] 112 mcg tablet 112 mcg PO .daily losartan 50 mg tablet 50 mg PO .daily multivitamin Tablet 1 tab PO QDAY aspirin [Aspirin Childrens] 81 mg tablet,chewable 81 mg PO QDAY amlodipine 5 mg Tablet 5 mg PO QD Qty: 30 0RF (DME) soft lens rinse,store solution Aerosol,[place] See Rx Instructions .ROUTE Rx Instructions: As directed Activity: increase activity as tolerated Diet: advance to your usual diet Print Language: Portuguese Forms: Portal Instructions Follow Up Appointments: PCP in one week Pulmonology -Dr Lovelace in 2 weeks
[2024-04-15] MEDS: BUDESONIDE 0.5 MG/2 ML AMPULE NEB IH (11:04)
--- OUTSIDE RECORDS SUMMARY | 2024-04-17 08:39 | XMS_ITS | CCD ---
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 Name Role Phone Niraula, Lupillo Unavailable Unavailable PROVIDER, UNKNOWN Unavailable Unavailable JEF, OTTONIEL B Unavailable Unavailable Jef, Ottoniel Unavailable Unavailable PROVIDER, UNKNOWN Unavailable Unavailable Junior, Ottoniel Unavailable Unavailable DOZIER, DEEPIKAH Unavailable Unavailable PROVIDER, UNKNOWN Unavailable Unavailable Junior, Ottoniel Unavailable Unavailable FIGUEROA, MASROOR Unavailable Unavailable PROVIDER, UNKNOWN Unavailable Unavailable Junior, Ottoniel Unavailable Unavailable FIGUEROA, MASROOR Unavailable Unavailable PROVIDER, UNKNOWN Unavailable Unavailable Junior, Ottoniel Unavailable Unavailable Jef, Ottoniel Unavailable Unavailable PROVIDER, UNKNOWN Unavailable Unavailable Jef, Ottoniel Unavailable Unavailable FIGUEROA, MASROOR Unavailable Unavailable PROVIDER, UNKNOWN Unavailable Unavailable Jef, Ottoniel Unavailable Unavailable NIRAULA, LUPILLO Unavailable Unavailable Jef, Ottoniel Unavailable Unavailable Tsivitse Eddi Unavailable Unavailable PROVIDER, UNKNOWN Unavailable Unavailable Junior, Ottoniel Unavailable Unavailable Jef, Ottoniel Primary Care [...] Care Provider ANTONIO HOPKINS Primary Care Physician MD Kale Hanna Attending Provider [phone] Kale Hanna Attending Unavailable Kale Hanna Admitting [...] Medication Allergies] Propensity to adverse reactions (disorder) [facility] Repository Medications Current Medications Medication Drug Class(es) Dates Sig (Normalized) Sig (Original) [id number] 200 actuat albuterol 0.09 mg/actuat metered dose inhaler (10 sources) beta2-Adrenergic Agonist Start: 07-26-2023 take 2 puff(s) by inhalation every four hours for wheezing albuterol HFA 90 mcg/act inhaler Indications: Bronchiectasis without complication ([facility]) Inhale 2 puffs every 4 (four) hours [...] Active Start: 04-09-2023 take [facility] daily amLODIPine 5 mg Tab [...] Corticosteroid Start: 04-09-2023 Flonase 0.05 m g/inh [place] 100 mcg, Nasal, Daily, Refill(s) 0 Start [...] disease (2 sources) Atherosclerotic heart disease of [place] coronary artery without angina pectoris; Translations: [Athscl heart disease of [place] coronary artery w/o ang pctrs] Onset: 03-08-2018 [...] 09-22-2022 Episodic Other aftercare (1 source) senior living (current) use of aspirin; Translations: [LONG-TERM CURRENT USE OF ASPIRIN] Onset: 09-22-2022 Episodic Other aftercare (5 sources) 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; Translations: [OTH 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 CURRENT DRUG THERAPY] Onset: 10-30-2021 Episodic Other [...] current use of drug therapy; Translations: [Other retirement (current) drug therapy] Onset: 04-01-2023 04-01-2023 Episodic [...] [Mass/Vol] 14.6 g/dL 12.0 - 16.0 g/dL [facility] General Surgery Office/Clini c Noteon 06-14-2023 General [...] 1 puff(s), Inhalation, Daily Flonase 0.05 mg/inh [place], 100 mcg, Nasal, Daily levothyroxine 112 mcg [...] 02/04/2021 Recorded 2023-04-09: [id number] patient seen 06/04/2023 [facility] Comment on above: Result Comment: [...] EC Tab) fluticasone nasal (Flonase 0.05 mg/inh [place]) fluticasone-vilantero l (Breo Ellipta 100 mcg-25 mcg [...] Unchanged fluticasone nasal (Flonase 0.05 mg/ inh [place]) 100 Microgram Nasal Inhalation Every day Unchanged [...] you for choosing us for your care. [facility] Reminderson 06-04-2023 Reminders - From: Tamia Price LPN To: N - Clinical; Sent: 06/04/2023 14:05:05 EST Show up: 04/11/2033 07:00:00 EST Subject: colonoscopy recall Due Date/Time: 05/12/2033 07:00:00 EST Reminder/Recall Patient due for screening colonoscopy 05/12/2033. [facility] Outside Colonoscopyon 2023 Outside Colonoscopy [id number]#1 .00TIFF [facility] Pathology Noteon 05-20-2023 Pathology Note [id number]#1. 00TIFF [facility] Matthieu 05-12-2023 L Specimen: [id number] Received: 05/12/23 Status: SOUT Re Num: [id number] Spec Type: Surgical Subm Dr: Kale Hanna MD FACS Tissues: A Colon Biopsy (SIGMOID POLYP) Procedures: HE/2, Gross/Micro L4 Age/ Patient Sex Location Account Attending Physician Akil Chacon 67/F LABELL [id number] Kale Hanna MD FACS SPEC NUM: [id number] RECD: 05/12/23 STATUS: BILLY OVIEDO NUM: [id number] DONIS: 05/12/[address] [facility] [address]: Kale Hanna MD FACS ENTERED: 05/12/[address] [facility] [address]: Tania Nam SPEC TYPE: Surgical DEPT: [...] in one cassette labeled A1. CPT Codes 99509 -------- -------- Specimen: [id number] Received: 05/12/23 Status: BILLY [place] Num: [id number] Spec Type: Surgical Subm Dr: Kale Hanna MD FACS Tissues: A Colon Biopsy (SIGMOID POLYP) Procedures: HE/2, Gross/Micro L4 -------- Patient: Akil Chacon [id number] (Continued) -------- Signed (signature on file) Renato-Ed Marquez MD 05/14/23 0853 [facility] Insurance Correspondenceon 0 05-05-2023 Insurance Correspondence [id number]#1 .00TIFF [facility] Consent for Procedure/Surger yon 04-23-2023 Consent for Procedure/Surgery [id number]#1 .00TIFF [facility] Facesheeton 04-22-2023 Facesheet [id number]# 1.00TIFF [facility] Ambulatory Visit Summaryon 1 06-22-2022 [...] EC Tab) fluticasone nasal (Flonase 0.05 mg/inh [place]) fluticasone-vilantero l (Breo Ellipta 100 mcg-25 mcg [...] Unchanged fluticasone nasal (Flonase 0.05 mg/ inh [place]) 100 Microgram Nasal Inhalation Every day Contact [...] for choosing us for your care. Normal [facility] Transfer Inon 04-06-2023 Transfer In [id number]#[address] [facility] Physician Referralon 023 Physician Referral [id number]#[address] [facility] CBC AUTO DIFFon 09-23-2022 BASO # 0.0 103/ul Normal 0.0-0.1 [facility] Comment on above: Performed By: #### C YTO #### [facility] [address] [place] [address] Dr. Jayy Marquez Basophils/100 WBC (Bld) 0.4 % Normal 0.2-2.0 [facility] Comment on above: Performed By: #### C YTO #### [facility] [address] [place] [address] Dr. Jayy Marquez EO # 0.1 103/ul Normal 0.0-0.7 [facility] Comment on above: Performed By: #### C YTO #### [facility] [address] [place] [address] Dr. Jayy Marquez Eosinophils/100 WBC (Bld) 0.5 % Critically low 0.9-7.0 [facility] Comment on above: Performed By: #### C YTO #### [facility] [address] [place] [address] Dr. Jayy Marquez Erythrocyte distribution width (RBC) [Ratio] 13.1 % Normal 11.0-15.0 [facility] Comment on above: Performed By: #### C YTO #### [facility] [address] [place] [address] Dr. Jayy Marquez Hematocrit (Bld) [Volume fraction] 43.0 % Normal 36.0-48.0 [facility] Comment on above: Performed By: #### C YTO #### [facility] [address] [place] [address] Dr. Jayy Marquez Hemoglobin (Bld) [Mass/Vol] 13.9 g/dL Normal 12.0-16.0 [facility] Comment on above: Performed By: #### C YTO #### [facility] [address] [place] [address] Dr. Jayy Marquez IG # 0.04 10e3/ul Critically high 0.00-0.03 [facility] Comment on above: Performed By: #### C YTO #### [facility] [address] [place] [address] Dr. Jayy Marquez IG % 0.4 % Normal 0.0-0.5 [facility] Comment on above: Performed By: #### C YTO #### [facility] [address] [place] [address] Dr. Jayy Marquez LYMPH # 0.7 103/ul Critically low 1.2-3.8 [facility] Comment on above: Performed By: #### C YTO #### [facility] [address] [place] [address] Dr. Jayy Marquez Lymphocytes/100 WBC (Bld) 6.7 % Critically low 20.5-60.0 [facility] Comment on above: Performed By: #### C YTO #### [facility] [address] [place] [address] Dr. Jayy Marquez MANUAL DIFF REQ NO Normal [facility] Comment on above: Performed By: #### C YTO #### [facility] [address] [place] [address] Dr. Jayy Marquez MCH (RBC) [Entitic mass] 31.2 pg Normal 26.7-34.0 [facility] Comment on above: Performed By: #### C YTO #### [facility] [address] [place] [address] Dr. Jayy Marquez MCHC (RBC) [Mass/Vol] 32.3 g/dL Normal 29.9-35.2 [facility] Comment on above: Performed By: #### C YTO #### [facility] [address] [place] [address] Dr. Jayy Marquez MCV (RBC) [Entitic vol] 96.4 fL Normal 81.0-99.0 [facility] Comment on above: Performed By: #### C YTO #### [facility] [address] [place] [address] Dr. Jayy Marquez MONO # 0.9 103/ul Critically high 0.3-0.8 [facility] Comment on above: Performed By: #### C YTO #### [facility] [address] [place] [address] Dr. Jayy Marquez Monocytes/100 WBC (Bld) 8.2 % Normal 1.7-12.0 [facility] Comment on above: Performed By: #### C YTO #### [facility] [address] [place] [address] Dr. Jayy Marquez NEUT # 9.0 103/ul Critically high 1.4-6.5 [facility] Comment on above: Performed By: #### C YTO #### [facility] [address] [place] [address] Dr. Jayy Marquez Neutrophils/100 WBC (Bld) 83.8 % Critically high 43.0-75.0 [facility] Comment on above: Performed By: #### C YTO #### [facility] [address] [place] [address] Dr. Jayy Marquez Platelet mean volume (Bld) [Entitic vol] 10.4 fL Normal 9.5-13.5 [facility] Comment on above: Performed By: #### C YTO #### [facility] [address] [place] [address] Dr. Jayy Marquez PLT 232 103/ul Normal 150-450 [facility] Comment on above: Performed By: #### C YTO #### [facility] [address] [place] [address] Dr. Jayy Marquez RBC 4.46 106/ul Normal 4.20-5.40 [facility] Comment on above: Performed By: #### C YTO #### [facility] [address] [place] [address] Dr. Jayy Marquez WBC 10.7 103/ul Normal 4.0-11.0 [facility] Comment on above: Performed By: #### C YTO #### [facility] [address] [place] [address] Dr. Jayy Marquez PROF CHEM 8 (BAS METB)on Anion gap [Moles/Vol] 13.4 mmol/L Normal [facility] Comment on above: Performed By: #### B MP #### [facility] [address] [place] [address] Dr. Jayy Marquez Calcium [Mass/Vol] 9.1 mg/dL Normal 8.5-10.1 [facility] Comment on above: Performed By: #### B MP #### [facility] [address] [place] [address] Dr. Jayy Marquez Chloride [Moles/Vol] 100 mmol/L Normal 98-107 [facility] Comment on above: Performed By: #### B MP #### [facility] [address] [place] [address] Dr. Jayy Marquez CO2 [Moles/Vol] 27.2 mmol/L Normal 21.0-32.0 [facility] Comment on above: Performed By: #### B MP #### [facility] [address] [place] [address] Dr. Jayy Marquez Creatinine [Mass/Vol] 0.77 mg/dL Normal 0.55-1.02 [facility] Comment on above: Performed By: #### B MP #### [facility] [address] [place] [address] Dr. Jayy Marquez EGFR-AF CITIZEN [place] >60 Normal >=60 [facility] Comment on above: Performed By: #### B MP #### [facility] [address] [place] [address] Dr. Jayy Marquez EGFR-NON AF CITIZEN OF [place] >60 Normal >=60 [facility] Comment on above: Performed By: #### B MP #### [facility] [address] [place] [address] Dr. Jayy Marquez Glucose [Mass/Vol] 173 mg/dL Critically high 74-106 T [facility] Comment on above: Performed By: #### B MP #### [facility] [address] [address] [address] Jayy Marquez Potassium [Moles/Vol] 4.6 mmol/L Normal 3.5-5.1 [facility] Comment on above: Performed By: #### B MP #### [facility] [address] [address] [address] Jayy Marquez Sodium [Moles/Vol] 136 mmol/L Normal 136-145 [facility] Comment on above: Performed By: #### B MP #### [facility] [address] [address] [address] Jayy Marquez Urea nitrogen [Mass/Vol] 16.0 mg/dL Normal 7.0-18.0 [facility] Comment on above: Performed By: #### B MP #### [facility] [address] [address] [address] Jayy Marquez Urea nitrogen/Creatinine [Mass ratio] 20.8 mg/mg Normal [facility] Comment on above: Performed By: #### B MP #### [facility] [address] [address] [address] Jayy Marquez XR CHEST 1 Von [...] B (Bld) [Mass/Vol] 243.0 pg/mL Normal <=900.0 [facility] Comment on above: Performed By: #### B MP, BNP, HSTROPN #### [facility] [address] [address] [address] Jayy Marquez CBC AUTO DIFFon 09-22-2022 BASO # 0.0 103/ul Normal 0.0-0.1 [facility] Comment on above: Performed By: #### C VDAGS #### [facility] [address] [place] [address] Dr. Jayy Marquez Basophils/100 WBC (Bld) 0.4 % Normal 0.2-2.0 [facility] Comment on above: Performed By: #### C VDAGS #### [facility] [address] [place] [address] Dr. Jayy Marquez EO # 0.0 103/ul Normal 0.0-0.7 [facility] Comment on above: Performed By: #### C VDAGS #### [facility] [address] [place] [address] Dr. Jayy Marquez Eosinophils/100 WBC (Bld) 0.0 % Critically low 0.9-7.0 [facility] Comment on above: Performed By: #### C VDAGS #### [facility] [address] [place] [address] Dr. Jayy Marquez Erythrocyte distribution width (RBC) [Ratio] 13.1 % Normal 11.0-15.0 [facility] Comment on above: Performed By: #### C VDAGS #### [facility] [address] [place] [address] Dr. Jayy Marquez Hematocrit (Bld) [Volume fraction] 42.7 % Normal 36.0-48.0 [facility] Comment on above: Performed By: #### C VDAGS #### [facility] [address] [place] [address] Dr. Jayy Marquez Hemoglobin (Bld) [Mass/Vol] 13.9 g/dL Normal 12.0-16.0 [facility] Comment on above: Performed By: #### C VDAGS #### [facility] [address] [place] [address] Dr. Jayy Marquez IG # 0.03 10e3/ul Normal 0.00-0.03 [facility] Comment on above: Performed By: #### C VDAGS #### [facility] [address] [place] [address] Dr. Jayy Marquez IG % 0.4 % Normal 0.0-0.5 [facility] Comment on above: Performed By: #### C VDAGS #### [facility] [address] [place] [address] Dr. Jayy Marquez LYMPH # 0.4 103/ul Critically low 1.2-3.8 [facility] Comment on above: Performed By: #### C VDAGS #### [facility] [address] [place] [address] Dr. Jayy Marquez Lymphocytes/100 WBC (Bld) 5.5 % Critically low 20.5-60.0 [facility] Comment on above: Performed By: #### C VDAGS #### [facility] [address] [place] [address] Dr. Jayy Marquez MANUAL DIFF REQ NO Normal [facility] Comment on above: Performed By: #### C VDAGS #### [facility] [address] [place] [address] Dr. Jayy Marquez MCH (RBC) [Entitic mass] 31.2 pg Normal 26.7-34.0 [facility] Comment on above: Performed By: #### C VDAGS #### [facility] [address] [place] [address] Dr. Jayy Marquez MCHC (RBC) [Mass/Vol] 32.6 g/dL Normal 29.9-35.2 [facility] Comment on above: Performed By: #### C VDAGS #### [facility] [address] [place] [address] Dr. Jayy Marquez MCV (RBC) [Entitic vol] 96.0 fL Normal 81.0-99.0 [facility] Comment on above: Performed By: #### C VDAGS #### [facility] [address] [place] [address] Dr. Jayy Marquez MONO # 0.3 103/ul Normal 0.3-0.8 [facility] Comment on above: Performed By: #### C VDAGS #### [facility] [address] [place] [address] Dr. Jayy Marquez Monocytes/100 WBC (Bld) 3.5 % Normal 1.7-12.0 [facility] Comment on above: Performed By: #### C VDAGS #### [facility] [address] [place] [address] Dr. Jayy Marquez NEUT # 6.9 103/ul Critically high 1.4-6.5 [facility] Comment on above: Performed By: #### C VDAGS #### [facility] [address] [place] [address] Dr. Jayy Marquez Neutrophils/100 WBC (Bld) 90.2 % Critically high 43.0-75.0 [facility] Comment on above: Performed By: #### C VDAGS #### [facility] [address] [place] [address] Dr. Jayy Marquez Platelet mean volume (Bld) [Entitic vol] 9.8 fL Normal 9.5-13.5 [facility] Comment on above: Performed By: #### C VDAGS #### [facility] [address] [place] [address] Dr. Jayy Marquez PLT 207 103/ul Normal 150-450 [facility] Comment on above: Performed By: #### C VDAGS #### [facility] [address] [place] [address] Dr. Jayy Marquez RBC 4.45 106/ul Normal 4.20-5.40 [facility] Comment on above: Performed By: #### C VDAGS #### [facility] [address] [place] [address] Dr. Jayy Marquez WBC 7.6 103/ul Normal 4.0-11.0 [facility] Comment on above: Performed By: #### C VDAGS #### [facility] [address] [place] [address] Dr. Jayy Marquez BASO # 0.0 103/ul Normal 0.0-0.1 [facility] Comment on above: Performed By: #### C BC #### [facility] [address] [place] [address] Dr. Jayy Marquez Basophils/100 WBC (Bld) 0.4 % Normal 0.2-2.0 [facility] Comment on above: Performed By: #### C BC #### [facility] [address] [place] [address] Dr. Jayy Marquez EO # 0.1 103/ul Normal 0.0-0.7 [facility] Comment on above: Performed By: #### C BC #### [facility] [address] [place] [address] Dr. Jayy Marquez Eosinophils/100 WBC (Bld) 1.4 % Normal 0.9-7.0 [facility] Comment on above: Performed By: #### C BC #### [facility] [address] [place] [address] Dr. Jayy Marquez Erythrocyte distribution width (RBC) [Ratio] 13.2 % Normal 11.0-15.0 [facility] Comment on above: Performed By: #### C BC #### [facility] [address] [place] [address] Dr. Jayy Marquez Hematocrit (Bld) [Volume fraction] 45.5 % Normal 36.0-48.0 [facility] Comment on above: Performed By: #### C BC #### [facility] [address] [place] [address] Dr. Jayy Marquez Hemoglobin (Bld) [Mass/Vol] 15.3 g/dL Normal 12.0-16.0 [facility] Comment on above: Performed By: #### C BC #### [facility] [address] [place] [address] Dr. Jayy Marquez IG # 0.03 10e3/ul Normal 0.00-0.03 [facility] Comment on above: Performed By: #### C BC #### [facility] [address] [place] [address] Dr. Jayy Marquez IG % 0.3 % Normal 0.0-0.5 [facility] Comment on above: Performed By: #### C BC #### [facility] [address] [place] [address] Dr. Jayy Marquez LYMPH # 1.3 103/ul Normal 1.2-3.8 [facility] Comment on above: Performed By: #### C BC #### [facility] [address] [place] [address] Dr. Jayy Marquez Lymphocytes/100 WBC (Bld) 13.8 % Critically low 20.5-60.0 [facility] Comment on above: Performed By: #### C BC #### [facility] [address] [place] [address] Dr. Jayy Marquez MANUAL DIFF REQ NO Normal [facility] Comment on above: Performed By: #### C BC #### [facility] [address] [place] [address] Dr. Jayy Marquez MCH (RBC) [Entitic mass] 32.0 pg Normal 26.7-34.0 [facility] Comment on above: Performed By: #### C BC #### [facility] [address] [place] [address] Dr. Jayy Marquez MCHC (RBC) [Mass/Vol] 33.6 g/dL Normal 29.9-35.2 [facility] Comment on above: Performed By: #### C BC #### [facility] [address] [place] [address] Dr. Jayy Marquez MCV (RBC) [Entitic vol] 95.2 fL Normal 81.0-99.0 [facility] Comment on above: Performed By: #### C BC #### [facility] [address] [place] [address] Dr. Jayy Marquez MONO # 1.3 103/ul Critically high 0.3-0.8 [facility] Comment on above: Performed By: #### C BC #### [facility] [address] [place] [address] Dr. Jayy Marquez Monocytes/100 WBC (Bld) 13.7 % Critically high 1.7-12.0 [facility] Comment on above: Performed By: #### C BC #### [facility] [facility] [address] [place] [address] Dr. Jayy Marquez NEUT # 6.7 103/ul Critically high 1.4-6.5 [facility] Comment on above: Performed By: #### C BC #### [facility] [address] [place] [address] Dr. Jayy Marquez Neutrophils/100 WBC (Bld) 70.4 % Normal 43.0-75.0 [facility] Comment on above: Performed By: #### C BC #### [facility] [address] [place] [address] Dr. Jayy Marquez Platelet mean volume (Bld) [Entitic vol] 9.6 fL Normal 9.5-13.5 [facility] Comment on above: Performed By: #### C BC #### [facility] [address] [place] [address] Dr. Jayy Marquez PLT 218 103/ul Normal 150-450 [facility] Comment on above: Performed By: #### C BC #### [facility] [address] [place] [address] Dr. Jayy Marquez RBC 4.78 106/ul Normal 4.20-5.40 [facility] Comment on above: Performed By: #### C BC #### [facility] [address] [place] [address] Dr. Jayy Marquez WBC 9.5 103/ul Normal 4.0-11.0 [facility] Comment on above: Performed By: #### C BC #### [facility] [address] [place] [address] Dr. Jayy Marquez PROF CHEM 8 (BAS METB)on Anion gap [Moles/Vol] 11.3 mmol/L Normal [facility] Comment on above: Performed By: #### B MP #### [facility] [address] [place] [address] Dr. Jayy Marquez Calcium [Mass/Vol] 8.7 mg/dL Normal 8.5-10.1 [facility] Comment on above: Performed By: #### B MP #### [facility] [address] [place] [address] Dr. Jayy Marquez Chloride [Moles/Vol] 100 mmol/L Normal 98-107 [facility] Comment on above: Performed By: #### B MP #### [facility] [address] [address] [address] Jayy Marquez CO2 [Moles/Vol] 27.6 mmol/L Normal 21.0-32.0 [facility] Comment on above: Performed By: #### B MP #### [facility] [address] [address] [address] Jayy Marquez Creatinine [Mass/Vol] 0.82 mg/dL Normal 0.55-1.02 [facility] Comment on above: Performed By: #### B MP #### [facility] [address] [address] [address] Jayy Marquez EGFR-AF CITIZ[place] >60 Normal >=60 [facility] Comment on above: Performed By: #### B MP #### [facility] [address] [address] [address] Jayy Marquez EGFR-NON AF CITIZEN [place] >60 Normal >=60 [facility] Comment on above: Performed By: #### B MP #### [facility] [address] [address] [address] Jayy Marquez Glucose [Mass/Vol] 203 mg/dL Critically high 74-[address] [facility] Comment on above: Performed By: #### B MP #### [facility] [address] [place] [address] Dr. Jayy Marquez Potassium [Moles/Vol] 3.9 mmol/L Normal 3.5-5.1 [facility] Comment on above: Performed By: #### B MP #### [facility] [address] [address] [address] Jayy Marquez Sodium [Moles/Vol] 135 mmol/L Critically low 136-145 [facility] Comment on above: Performed By: #### B MP #### [facility] [address] [address] [address] Jayy Marquez Urea nitrogen [Mass/Vol] 11.0 mg/dL Normal 7.0-18.0 [facility] Comment on above: Performed By: #### B MP #### [facility] [address] [address] [address] Jayy Marquez Urea nitrogen/Creatinine [Mass ratio] 13.4 mg/mg Normal [facility] Comment on above: Performed By: #### B MP #### [facility] [address] [address] [address] Jayy Marquez Anion gap [Moles/Vol] 12.9 mmol/L Normal [facility] Comment on above: Performed By: #### C YTO #### [facility] [address] [address] [address] Jayy Marquez Calcium [Mass/Vol] 9.2 mg/dL Normal 8.5-10.1 [facility] Comment on above: Performed By: #### C YTO #### [facility] [address] [place] [address] Dr. Jayy Marquez Chloride [Moles/Vol] 98 mmol/L Normal 98-107 [facility] Comment on above: Performed By: #### C YTO #### [facility] [address] [place] [address] Dr. Jayy Marquez CO2 [Moles/Vol] 25.8 mmol/L Normal 21.0-32.0 [facility] Comment on above: Performed By: #### C YTO #### [facility] [address] [place] [address] Dr. Jayy Marquez Creatinine [Mass/Vol] 0.90 mg/dL Normal 0.55-1.02 [facility] Comment on above: Performed By: #### C YTO #### [facility] [address] [place] [address] Dr. Jayy Marquez EGFR-AF CITIZ[place] >60 Normal >=60 [facility] Comment on above: Performed By: #### C YTO #### [facility] [address] [place] [address] Dr. Jayy Marquez EGFR-NON AF CITIZ[place] >60 Normal >=60 [facility] Comment on above: Performed By: #### C YTO #### [facility] [address] [place] [address] Dr. Jayy Marquez Glucose [Mass/Vol] 150 mg/dL Critically high 74-106 T [facility] Comment on above: Performed By: #### C YTO #### [facility] [address] [place] [address] Dr. Jayy Marquez Potassium [Moles/Vol] 3.7 mmol/L Normal 3.5-5.1 [facility] Comment on above: Performed By: #### C YTO #### [facility] [address] [place] [address] Dr. Jayy Marquez Sodium [Moles/Vol] 133 mmol/L Critically low 136-145 Th e [facility] Comment on above: Performed By: #### C YTO #### [facility] [address] [place] [address] Dr. Jayy Marquez Urea nitrogen [Mass/Vol] 14.0 mg/dL Normal 7.0-18.0 [facility] Comment on above: Performed By: #### C YTO #### [facility] [address] [place] [address] Dr. Jayy Marquez Urea nitrogen/Creatinine [Mass ratio] 15.6 mg/mg Normal [facility] Comment on above: Performed By: #### C YTO #### [facility] [address] [place] [address] Dr. Jayy Marquez RESPIRATORY PANEL PLUSon Adenovirus Not detected Normal NOT DETECTED [facility] Comment on above: Performed By: #### C VDAGS #### [facility] [address] [place] [address] Dr. Jayy Marquez B. Parapertusis Not detected Normal NOT DETECTED [facility] Comment on above: Performed By: #### C VDAGS #### [facility] [address] [place] [address] Dr. Jayy Marquez B. Pertussis Not detected Normal NOT DETECTED [facility] Comment on above: Performed By: #### C VDAGS #### [facility] [address] [place] [address] Dr. Jayy Marquez Chlamydia Pneumoniae Not detected Normal NOT DETECTED [facility] Comment on above: Performed By: #### C VDAGS #### [facility] [address] [address] [address] Jayy Marquez Coronavirus 229E Not detected Normal NOT DETECTED The [facility] Comment on above: Performed By: #### C VDAGS #### [facility] [address] [place] [address] Dr. Jayy Marquez Coronavirus HKU1 Not detected Normal NOT DETECTED The [facility] Comment on above: Performed By: #### C VDAGS #### [facility] [address] [place] [address] Dr. Jayy Marquez Coronavirus NL63 Not detected Normal NOT DETECTED The [facility] Comment on above: Performed By: #### C VDAGS #### [facility] [address] [place] [address] Dr. Jayy Marquez Coronavirus OC43 Not detected Normal NOT DETECTED The [facility] Comment on above: Performed By: #### C VDAGS #### [facility] [address] [place] [address] Dr. Jayy Marquez Influenza A H1 Not detected Normal NOT DETECTED [facility] Comment on above: Performed By: #### C VDAGS #### [facility] [address] [place] [address] Dr. Jayy Marquez Influenza A H1 2009 Not detected Normal NOT DETECTED [facility] Comment on above: Performed By: #### C VDAGS #### [facility] [address] [place] [address] Dr. Jayy Marquez Influenza A H3 Not detected Normal NOT DETECTED [facility] Comment on above: Performed By: #### C VDAGS #### [facility] [address] [place] [address] Dr. Jayy Marquez Influenza B Not detected Normal NOT DETECTED [facility] Comment on above: Performed By: #### C VDAGS #### [facility] [address] [place] [address] Dr. Jayy Marquez Metapneumovirus Not detected Normal NOT DETECTED [facility] Comment on above: Performed By: #### C VDAGS #### [facility] [address] [place] [address] Dr. Jayy Marquez Mycoplas. Pneumoniae Not detected Normal NOT DETECTED [facility] Comment on above: Performed By: #### C VDAGS #### [facility] [address] [address] [address] Jayy Marquez Parainfluenza 1 Not detected Normal NOT DETECTED [facility] Comment on above: Performed By: #### C VDAGS #### [facility] [address] [place] [address] Dr. Jayy Marquez Parainfluenza 2 Not detected Normal NOT DETECTED [facility] Comment on above: Performed By: #### C VDAGS #### [facility] [address] [place] [address] Dr. Jayy Marquez Parainfluenza 3 Not detected Normal NOT DETECTED [facility] Comment on above: Performed By: #### C VDAGS #### [facility] [address] [place] [address] Dr. Jayy Marquez Parainfluenza 4 Not detected Normal NOT DETECTED [facility] Comment on above: Performed By: #### C VDAGS #### [facility] [address] [place] [address] Dr. Jayy Marquez Rhino/Enterovirus Not detected Normal NOT DETECTED [facility] Comment on above: Performed By: #### C VDAGS #### [facility] [address] [place] [address] Dr. Jayy Marquez RP2 Header 1 RESPIRATORY PANEL: VIRUSES Normal [facility] Comment on above: Performed By: #### C VDAGS #### [facility] [address] [place] [address] Dr. Jayy Marquez RP2 Header 2 RESPIRATORY PANEL: BACTERIA Normal [facility] Comment on above: Performed By: #### C VDAGS #### [facility] [address] [place] [address] Dr. Jayy Marquez RSV Not detected Normal NOT DETECTED [facility] Comment on above: Performed By: #### C VDAGS #### [facility] [address] [place] [address] Dr. Jayy Marquez SARS-CoV-2 (COVID-19) RNA SILVINO+probe Ql (Unsp spec) Not detected Normal NOT DETECTED [facility] Comment on above: Performed By: #### C VDAGS #### [facility] [address] [place] [address] Dr. Jayy Marquez SYMPTOMATIC COVID-19 ANTIGEN on 09-22-2022 EUA Statement SEE BELOW Normal [facility] Comment on above: Result Comment: This [...] [facility] [address] [place] [address] Dr. Jayy Marquez SARS-CoV-2 (COVID-19) RNA SILVINO+probe Ql (Unsp spec) Negative Normal NEGATIVE The [facility] Comment on above: Performed By: #### C VDAGS #### [facility] [address] [place] [address] Dr. Jayy Marquez TROPONIN, HIGH SENSITIVITYon 09-22-2022 [...] HAS BEEN CONFIRMED THE DECISION THRESHOLD FOR TX DIAGNOSIS. Performed By: #### B MP, BNP, HSTROPN #### [facility] [address] [address] [address] Jayy Marquez XR CHEST 1 Von [...] CXon Acid Fast Culture Negative Normal [facility] Comment on above: Result Comment: No a goyo fast bacilli isolated after 6 weeks. Performed By: #### A FB #### [facility] [address] [place] [address] Dr. Jayy Marquez Performed By: #### C VDAGS #### [facility] [address] [place] [address] Dr. Jayy Marquez Acid Fast Smear Negative Normal [facility] Comment on above: Performed By: #### A FB #### [facility] [address] [place] [address] Dr. Jayy Marquez Performed By: #### C VDAGS #### [facility] [address] [place] [address] Dr. Jayy Marquez [employer] Specimen Processing Concentration [facility] Comment on above: Performed By: #### A FB #### [facility] [address] [place] [address] Dr. Jayy Marquez Performed By: #### C VDAGS #### [facility] [address] [place] [address] Dr. Jayy Marquez FUNGAL CULTUREon 04-23-2022 Fungus (Mycology) Culture Final report [facility] Comment on above: Performed By: #### C XFUN #### [facility] [address] [place] [address] Dr. Jayy Marquez Performed By: #### C VDAGS #### [facility] [address] [place] [address] Dr. Jayy Marquez Fungus Stain Final report [facility] Comment on above: Performed By: #### C XFUN #### [facility] [address] [place] [address] Dr. Jayy Marquez Performed By: #### C VDAGS #### [facility] [address] [place] [address] Dr. Jayy Marquez Result 1 Comment Normal [facility] Comment on above: Result Comment: TANYA/ Calcofluor preparation: no fungus observed. Performed By: #### C XFUN #### [facility] [address] [place] [address] Dr. Jayy Marquez Result Comment: No y east or mold isolated after 4 weeks. Performed By: #### C VDAGS #### [facility] [address] [place] [address] Dr. Jayy Marquez CULTURE OTHERon 03-26-2022 CULTURE [...] S F Tetracycline >=16 R F Normal [facility] Comment on above: Performed By: #### C YTO #### [facility] [address] [place] [address] Dr. Jayy Marquez CULTURE OTHERon 03-25-2022 CULTURE [...] F Levofloxacin 0.25 S F Normal [facility] Comment on above: Performed By: #### C YTO #### [facility] [address] [place] [address] Dr. Jayy Marquez CYTOLOGYon 03-23-2022 SENT TO REF LAB 03/23/2022 Normal [facility] Comment on above: Performed By: #### C YTO #### [facility] [address] [address] [address] Jayy AMADOR STAINon 03-23-2022 DIPHTHEROIDS Normal [facility] Comment on above: Performed By: #### C VDAGS #### [facility] [address] [address] [address] Jayy Marquez EPITHELIALS Normal [facility] Comment on above: Performed By: #### C VDAGS #### [facility] [address] [address] [address] Jayy Marquez FUNGAL ELEMENTS Normal [facility] Comment on above: Performed By: #### C VDAGS #### [facility] [address] [address] [address] Jayy AMADOR NEG BACILLI FEW Normal [facility] Comment on above: Performed By: #### C VDAGS #### [facility] [address] [address] [address] Jayy AMADOR NEG DIPPLOCOCCI Normal [facility] Comment on above: Performed By: #### C VDAGS #### [facility] [address] [address] [address] Jayy AMADOR POS BACILLI Normal [facility] Comment on above: Performed By: #### C VDAGS #### [facility] [address] [address] [address] Jayy Marquez GRAM POSITIVE COCCI FEW Normal [facility] Comment on above: Performed By: #### C VDAGS #### [facility] [address] [address] [address] Jayy Marquez GRAM STAIN SOURCE Rt Middle Lobe Lavage Normal The [facility] Comment on above: Performed By: #### C VDAGS #### [facility] [address] [address] [address] Jayy Marquez GRAM STAIN SOURCE Lingula Lt Upper Lob e Lavage Normal The [facility] Comment on above: Performed By: #### C VDAGS #### [facility] [address] [address] [address] Jayy Marquez GS_DIPTH Normal [facility] Comment on above: Performed By: #### C VDAGS #### [facility] [address] [place], [place] [address] Dr. Jayy Marquez WBC MANY Normal [facility] Comment on above: Performed By: #### C VDAGS #### [facility] [address] [place], [place] [address] Dr. Jayy Marquez WBC MODERATE Normal [facility] Comment on above: Performed By: #### C VDAGS #### [facility] [address] [place], [place] [address] Dr. Jayy Marquez [facility] SARS-CoV-2 (COVID-19) RNA SILVINO+probe Ql [...] for this test is supported by the [employer] of Health and Human Service's (HHS's) declaration [...] [facility] [address] [place], [place] [address] LUNG CANCER SCREENINGon [...] 10-30-2021 BASO # 0.0 103/ul Normal 0.0-0.1 [facility] Comment on above: Performed By: #### C VDAGS #### [facility] [address] [address] [address] Jayy Marquez Basophils/100 WBC (Bld) 0.7 % Normal 0.2-2.0 [facility] Comment on above: Performed By: #### C VDAGS #### [facility] [address] [address] [address] Jayy Marquez EO # 0.2 103/ul Normal 0.0-0.7 [facility] Comment on above: Performed By: #### C VDAGS #### [facility] [address] [place] [address] Dr. Jayy Marquez Eosinophils/100 WBC (Bld) 2.6 % Normal 0.9-7.0 [facility] Comment on above: Performed By: #### C VDAGS #### [facility] [address] [place] [address] Dr. Jayy Marquez Erythrocyte distribution width (RBC) [Ratio] 14.7 % Normal 11.0-15.0 [facility] Comment on above: Performed By: #### C VDAGS #### [facility] [address] [place] [address] Dr. Jayy Marquez Hematocrit (Bld) [Volume fraction] 48.9 % Critically high 36.0-48.0 [facility] Comment on above: Performed By: #### C VDAGS #### [facility] [address] [place] [address] Dr. Jayy Marquez Hemoglobin (Bld) [Mass/Vol] 15.5 g/dL Normal 12.0-16.0 [facility] Comment on above: Performed By: #### C VDAGS #### [facility] [address] [place] [address] Dr. Jayy Marquez IG # 0.01 10e3/ul Normal 0.00-0.03 [facility] Comment on above: Performed By: #### C VDAGS #### [facility] [address] [place] [address] Dr. Jayy Marquez IG % 0.2 % Normal 0.0-0.5 [facility] Comment on above: Performed By: #### C VDAGS #### [facility] [address] [place] [address] Dr. Jayy Marquez LYMPH # 1.6 103/ul Normal 1.2-3.8 [facility] Comment on above: Performed By: #### C VDAGS #### [facility] [address] [place] [address] Dr. Jayy Marquez Lymphocytes/100 WBC (Bld) 26.0 % Normal 20.5-60.0 [facility] Comment on above: Performed By: #### C VDAGS #### [facility] [address] [place] [address] Dr. Jayy Marquez MANUAL DIFF REQ NO Normal [facility] Comment on above: Performed By: #### C VDAGS #### [facility] [address] [place] [address] Dr. Jayy Marquez MCH (RBC) [Entitic mass] 31.5 pg Normal 26.7-34.0 [facility] Comment on above: Performed By: #### C VDAGS #### [facility] [address] [place] [address] Dr. Jayy Marquez MCHC (RBC) [Mass/Vol] 31.7 g/dL Normal 29.9-35.2 [facility] Comment on above: Performed By: #### C VDAGS #### [facility] [address] [place] [address] Dr. Jayy Marquez MCV (RBC) [Entitic vol] 99.4 fL Critically high 81.0-99.0 [facility] Comment on above: Performed By: #### C VDAGS #### [facility] [address] [place] [address] Dr. Jayy Marquez MONO # 0.8 103/ul Normal 0.3-0.8 [facility] Comment on above: Performed By: #### C VDAGS #### [facility] [address] [place] [address] Dr. Jayy Marquez Monocytes/100 WBC (Bld) 12.4 % Critically high 1.7-12.0 [facility] Comment on above: Performed By: #### C VDAGS #### [facility] [address] [place] [address] Dr. Jayy Marquez NEUT # 3.6 103/ul Normal 1.4-6.5 [facility] Comment on above: Performed By: #### C VDAGS #### [facility] [address] [place] [address] Dr. Jayy Marquez Neutrophils/100 WBC (Bld) 58.1 % Normal 43.0-75.0 [facility] Comment on above: Performed By: #### C VDAGS #### [facility] [address] [place] [address] Dr. Jayy Marquez Platelet mean volume (Bld) [Entitic vol] 10.1 fL Normal 9.5-13.5 [facility] Comment on above: Performed By: #### C VDAGS #### [facility] [address] [place] [address] Dr. Jayy Marquez PLT 234 103/ul Normal 150-450 [facility] Comment on above: Performed By: #### C VDAGS #### [facility] [address] [place] [address] Dr. Jayy Marquez RBC 4.92 106/ul Normal 4.20-5.40 [facility] Comment on above: Performed By: #### C VDAGS #### [facility] [address] [place] [address] Dr. Jayy Marquez WBC 6.2 103/ul Normal 4.0-11.0 [facility] Comment on above: Performed By: #### C VDAGS #### [facility] [address] [place] [address] Dr. Jayy Marquez FREE T3on 10-30-2021 FREE T3 2.73 pg/mlL Normal 2.18-3.98 [facility] Comment on above: Performed By: #### C VDAGS #### [facility] [address] [place] [address] Dr. Jayy Marquez FREE T4on 10-30-2021 Free T4 [Mass/Vol] 1.25 ng/dL Normal 0.76-1.46 [facility] Comment on above: Performed By: #### F T4 #### [facility] [address] [place] [address] Dr. Jayy Marquez PROF CHEM 8 (BAS METB)on Anion gap [Moles/Vol] 8.8 mmol/L Normal [facility] Comment on above: Performed By: #### C VDAGS #### [facility] [address] [address] [address] Jayy Marquez Calcium [Mass/Vol] 9.4 mg/dL Normal 8.5-10.1 [facility] Comment on above: Performed By: #### C VDAGS #### [facility] [address] [address] [address] Jayy Marquez Chloride [Moles/Vol] 104 mmol/L Normal 98-107 [facility] Comment on above: Performed By: #### C VDAGS #### [facility] [address] [address] [address] Jayy Marquez CO2 [Moles/Vol] 29.4 mmol/L Normal 21.0-32.0 [facility] Comment on above: Performed By: #### C VDAGS #### [facility] [address] [place] [address] Dr. Jayy Marquez Creatinine [Mass/Vol] 0.74 mg/dL Normal 0.55-1.02 [facility] Comment on above: Performed By: #### C VDAGS #### [facility] [address] [address] [address] Jayy Marquez EGFR-AF CITIZEN OF [place] >60 Normal >=60 [facility] Comment on above: Performed By: #### C VDAGS #### [facility] [address] [place] [address] Dr. Jayy Marquez EGFR-NON AF CITIZEN OF [place] >60 Normal >=60 [facility] Comment on above: Performed By: #### C VDAGS #### [facility] [address] [place] [address] Dr. Jayy Marquez Glucose [Mass/Vol] 108 mg/dL Critically high 74-[address] [facility] Comment on above: Performed By: #### C VDAGS #### [facility] [address] [address] [address] Jayy Marquez Potassium [Moles/Vol] 4.2 mmol/L Normal 3.5-5.1 [facility] Comment on above: Performed By: #### C VDAGS #### [facility] [address] [place] [address] Dr. Jayy Marquez Sodium [Moles/Vol] 138 mmol/L Normal 136-145 [facility] Comment on above: Performed By: #### C VDAGS #### [facility] [address] [place] [address] Dr. Jayy Marquez Urea nitrogen [Mass/Vol] 16.0 mg/dL Normal 7.0-18.0 [facility] Comment on above: Performed By: #### C VDAGS #### [facility] [address] [place] [address] Dr. Jayy Marquez Urea nitrogen/Creatinine [Mass ratio] 21.6 mg/mg Normal [facility] Comment on above: Performed By: #### C VDAGS #### [facility] [address] [place] [address] Dr. Jayy Marquez SGOTon 10-30-2021 AST [Catalytic activity/Vol] 11 U/L Critically low 15-37 [facility] Comment on above: Performed By: #### B MP #### [facility] [address] [place] [address] Dr. Jayy Marquez SGPTon 10-30-2021 ALT [Catalytic activity/Vol] 22 U/L Normal 14-59 [facility] Comment on above: Performed By: #### C VDAGS #### [facility] [address] [place] [address] Dr. Jayy Marquez TSHon 10-30-2021 TSH 1.593 uIU/mL Normal 0.358-3.740 [facility] Comment on above: Performed By: #### B MP #### [facility] [address] [place] [address] LUNG SCREENING (ANNUAL)on 09-26-2019 Patient Name: AKIL CHACON ---CT--- Exam Date/Time 09/26/2019 10:55:[address] Low Dose Lung Scrn Ordering Physician RAVINDRA THURMAN, SHELBI PERLA Accession Number [id number] CPT4 Codes G0297 (CT Low Dose Lung [...] ROBERT Transcribed Date and Time: 09/26/2019 1:18 [place], [place] [facility]av[facility], [facility] Incoming Radiology Results From [facility] - 09/26/2019 1:28 PM EDT Patient Name: AKIL CHACON ---CT--- Exam Date/Time 09/26/2019 10:55:[address] Low Dose Lung Scrn Ordering Physician RAVINDRA THURMAN TAMMY KAY Accession Number [id number] CPT4 Codes G0297 (CT Low Dose Lung [...] ROBERT Transcribed Date and Time: 09/26/2019 1:18 [place], [place] CT Low Dose Lung Screeningon 09-26-2019 CT Low Dose Lung Screening Patient Name: AKIL CHACON CT Exam Date/Time 09/26/2019 10:55:[address] Low Dose Lung Scrn Ordering Physician RAVINDRA THURMAN TAMMY KAY Accession Number [id number] CPT4 Codes G0297 (CT Low Dose Lung [...] Transcribed Date and Time: 09/26/2019 1:18 Normal [facility] OBSOLETEon 11-13-2016 OBSOLETE Refill (ENDMED) ----AKIL CHACON ([id number]) 1955 [facility] Time Provider Department11/13/16 CHARLOTTE RATLIFF During your [...] by MADELEINE ARIAS MA on 11/16/[address] [facility] Colonoscopy w/ or w/o biopsy on 01-12-2013 Colon polyps Internal hemorrhoids Normal appearing terminal ileum and colonic mucosa, s/p random biopsies [email or web address] This order was created through External Result Entry [facility] Vital Signs Date Time Vital Sign Value Performing Clinician Facility 03-28-2024 11:16-0500 Body height 162.6 cm Antonio Hopkins MD Work Phone: [facility] 03-28-2024 11:16-0500 Body mass index (BMI) [Ratio] 31.07 kg/m2 Antonio Hopkins MD Work Phone: [facility] 03-28-2024 11:16-0500 Body temperature 97.11 [degF] Antonio Hopkins MD Work Phone: [facility] 03-28-2024 11:16-0500 Body weight 82.1 kg Antonio Hopkins MD Work Phone: [facility] 03-28-2024 11:16-0500 Diastolic blood pressure 60 mm[Hg] Antonio Hopkins MD Work Phone: [facility] 03-28-2024 11:16-0500 Heart rate 71 /min Antonio Hopkins MD Work Phone: [facility] 03-28-2024 11:16-0500 Respiratory rate 22 /min Antonio Hopkins MD Work Phone: [facility] 03-28-2024 11:16-0500 SaO2% (BldA) [Mass fraction] 97 % Antonio Hopkins MD Work Phone: [facility] 03-28-2024 11:16-0500 Systolic blood pressure 116 mm[Hg] Antonio Hopkins MD Work Phone: [facility] 04-21-2023 14:10-0500 Blood Pressure Location Kale HANNA [facility] 04-21-2023 14:10-0500 Diastolic blood pressure 78 mm[Hg] Kale HANNA [facility] 04-21-2023 14:10-0500 Heart rate 72 /min Kale HANNA [facility] 04-21-2023 14:10-0500 Respiratory rate 16 /min Kale HANNA [facility] 04-21-2023 14:10-0500 Systolic blood pressure 128 [...] Start: 06-04-2023 End: 06-05-2023 ambulatory [facility] Start: 05-12-2023 End: 05-12-2023 ambulatory Kale Hanna Facility:[facility] Start: 05-12-2023 End: 05-13-2023 ambulatory Kale HANNA [facility] Work Phone: Start: 05-12-2023 End: 05-12-2023 Departed Referred MD Kale Hanna Work Phone: [facility] Start: 04-21-2023 End: 04-22-2023 ambulatory Kale [...] visit by physician Shelbi Thurman Work Phone: [facility] Comment on above: Cigarette nicotine d ependence with nicotine-induced disorder Start: 09-08-2018 Patient encounter procedure Lupillo Nichols [facility] Start: 04-04-2018 Patient encounter procedure Eddi Zunigasean [facility] Start: 03-08-2018 Patient encounter procedure MONICA FIGUEROA [facility] Start: 03-07-2018 [facility]: 02-22-2018 Patient encounter procedure Ottoniel Fuchs [facility] Start: 09-14-2017 Patient encounter procedure MONICA FIGUEROA [facility] Start: 08-14-2017 Emergency department patient visit MARTIN DOZIER [facility] Start: 08-13-2017 Patient encounter procedure Ottoniel Fuchs [facility] Start: 01-12-2013 Conversion Encounter Ottoniel jackson MD Work Phone: [facility] Start: 01-12-2013 Legacy Encounter Ottoniel osborn MD Work Phone: [facility] Procedures Date Procedure Procedure [...] - Td) DTaP/Tdap/Td vaccine (2 - Td) [facility] [place] Start: 09-26-2024 End: 09-26-2024 Patient encounter procedure 09/26/2024 1:00 PM EDT Office Visit [facility] [address] [place] [phone] Antonio Hopkins MD [address] [place] [id number] [facility] Start: 06-23-2024 Screening for malign ant neoplasm of breast Mammogram [facility] Start: 03-28-2024 End: 03-28-2024 Patient encounter procedure [facility] Comment on above: Arrived Start: 12-30-2023 Lipid panel Lipid screen [place], [place] Start: 12-26-2023 Influenza vaccination Influenza Vacc ine (#1) [facility] Start: 02-11-2023 Screening for malign ant neoplasm of cervix Cervical cancer screen [place], [place] Start: 01-12-2023 Screening for malign ant neoplasm of colon Colon cancer screen colonoscopy [place], [place] Start: 02-23-2020 Screening for malign ant neoplasm of breast Breast cancer screen [place], [place] Start: 02-13-2020 Pneumococcal 65+ yea rs Vaccine (1 of 1 - PPSV23) Pneumococcal 65+ years Vaccine (1 of 1 - PPSV23) [place] Start: 02-08-2020 End: 02-08-2020 Office Visit 02/08/2020 Office Visit Family Medicine Ottoniel Fuchs MD [address] [facility] [place] [address] [facility] Start: 12-30-2019 Creatinine measurement Creatinine mo nitoring [place], [place] Start: 12-30-2019 HbA1c (Bld) [Mass fraction] A1C test (Diabetic or Prediabetic) [place] Start: 12-30-2019 Potassium monitoring Potassium monit oring [place] Start: 12-30-2019 TSH Qn TSH testing [place], [place] Start: 09-09-2019 Screening for malign ant neoplasm of lung Low dose CT lung screening [place], [place] Start: 08-09-2019 Annual Wellness Visi t (AWV) Annual Wellness Visit (AWV) [place] Start: 02-11-2019 Medicare Annual Wellness (AWV) Medicare Annual Wellness (AWV) [facility] Start: 1955 Screening for malign ant neoplasm of colon [facility] Immunizations Immunization Date Immunization Notes Care Provider Fa cility 03-08-2023 influenza virus vacc ine, unspecified formulation Kale HANNA [facility] [place] 02-04-2021 SARS-CoV-2 (COVID-19 ) Ad26 vaccine, recombinant Kale HANNA [facility] [place] Comment on above: Result Comment: 2022: [id number] 03-30-2019 Seasonal, quadrivale nt, recombinant, injectable influenza vaccine, preservative free [facility] [place] 12-29-2018 zoster vaccine recombinant [facility] [place] 02-11-2018 influenza virus vacc ine, unspecified formulation [facility] , [place] 02-11-2018 influenza, injectabl e, quadrivalent, contains preservative [facility] 02-11-2018 zoster vaccine recombinant [facility] 12-25-2015 tetanus toxoid, redu florentino diphtheria toxoid, and acellular pertussis vaccine, adsorbed [facility] 02-12-2015 pneumococcal polysaccharide vaccine, [address] [facility] 02-12-2015 zoster vaccine, live [facility] [place] Payers Date Payer Category Payer Self-pay 2023 Medicare [employer]M MEDICARE ADVANTAGE [facility] MEDICARE ADVANTAGE [id number] 2023-Present [address] [place] [id number] 2023 Medicare (Managed Care) [facility] [id number] 2023 Unknown [id number] 2019 Medicare MEDICARE MEDICAR E PART A AND B xxxxxxxxxxx 2019-Present [phone] [address] [address] [place] [address] xxxxxxxxxxx [id number] 2019 Private Health Insurance [employer]ETROBERTO [employer]UIR[employer] S[employer]IOR MEDICARE SUPP xxxxxxxxxx 2019-Present [phone] [address] [place] [address] xxxxxxxxxx [id number] 1960 Unknown [id number] 2.0.1.743174.3.579.2 1960 Unknown [id number] 2.840.1.892542.3.579.2 1959 Medicare [id number] 1959 Private Health Insurance CLI [id number] 1954 Unknown [id number] 2.840.1.322195.3.579.2 1954 Unknown [id number] 2.840.1.185275.3.579.2 1954 Unknown [id number] 2.840.1.517378.3.579.2 1954 Unknown [id number] 2.16840.1.626046.3.579.2 1954 Unknown [id number] 2.16840.1.423104.3.579.2 1954 Unknown [id number] 2.16840.1.684480.3.579.2 1954 Unknown [id number] 2.16.840.1.861064.3.579.2 .668 1954 Unknown [id number] 2.16.840.1.164818.3.579.2 .593 1954 Unknown [id number] 2.16.840.1.460274.3.579.2 .593 1954 Unknown [id number] 2.16.840.1.895799.3.579.2 .593 1954 Unknown [id number] 2.16.840.1.323222.3.579.2 .593 1954 Unknown [id number] 2.16.840.1.335612.3.579.2 .593 1954 Unknown [id number] 2.16.840.1.751171.3.579.2 .593 1954 Unknown [id number] 2.16.840.1.144491.3.579.2 .727 1954 Unknown [id number] 2.16.840.1.042569.3.579.2 .727 1954 Unknown [id number] 2.16.840.1.235465.3.579.2 .727 1954 Unknown [id number] 2.16.840.1.073236.3.579.2 .1259 1954 Unknown [id number] 2.16.840.1.543024.3.579.2 .1259 1954 Unknown [id number] 2.16.840.1.494376.3.579.2 .1259 Unknown Social History Date Type Detail Facility Start: 08-02-1971 Tobacco smoking status HIIS Current every day smoker [place], [place] Start: 08-02-1971 End: 09-24-2022 History of tobacco use Cigarette [place]oker [place] Start: 08-09-2019 End: 09-26-2023 Cigarettes smoked current (pack per day) - Reported [facility] Start: 08-09-2019 Alcohol intake Current drinker of alcohol (finding) [place] Start: 12-29-2018 History SDOH Alcohol Frequency 4 [place] Start: 12-29-2018 History SDOH Alcohol Std Drinks 1 [place] Start: 12-29-2018 History SDOH Social Connections Get Together 2 [place] Start: 12-29-2018 History SDOH Social Connections Living 3 [place] Start: 12-29-2018 History SDOH Physical Activity DPW 0 [place] Start: 12-29-2018 History SDOH Financial 5 [place] Start: 08-16-2017 Tobacco Comment Less than a pack a day [place] Start: 08-16-2017 Alcohol Comment Occasionally [place] Start: 1955 Sex Assigned At Not on file [place] [facility] Start: 09-26-2023 End: 03-28-2024 Gender identity Not on file [facility] Start: 04-21-2023 End: 09-27-2023 Tobacco smoking status Ex-smoker (finding) [facility] Tobacco smoking status Never [facility] [place] Start: 1955 Sex Assigned At Female [facility] Start: 09-24-1972 End: 09-24-2022 History of tobacco use Current smoker [facility] Start: 09-27-2023 Tobacco use and exposure Smokeless tobacco non-user [facility] Do you belong to any clubs or organizations such as restorationism groups, unions, fraternal or athletic groups, or [...] daily Aspirin therapy. documented in this encounter [facility] Clinical Note 04-21-2023 Note Date & Type Note Facility 04-21-2023 Note Chief Complaint consultation for screening colonoscopy [facility] Staff 67 year old female presents on [...] 1 puff(s), Inhalation, Daily Flonase 0.05 mg/inh [place], 100 mcg, Nasal, Daily levothyroxine 112 mcg [...] of lung: Brother. (more content not included)... [facility] Comment on above: Result Comment: Elec tronically Signed By: ISIS ALCANTAR, Kale Thurman\Date and Time Signed: 04/21/23 14:46 EST Evaluation + Plan note Note Date & Type Note Facility Evaluation + Plan note No data available for this section [facility] [place] Evaluation note Note Date & Type Note Facility Evaluation note No assessment information availa [facility] Work Phone: Evaluation note Note Date & [...] visit, subsequent- Primary documented in this encounter [facility] Hospital Discharge instructions Note Date & Type Note Facility Hospital Discharge instructions No data available for this section [facility] [place] Progress note Note Date & Type Note Facility Progress note No data available for this section [facility] [place] Summary Purpose Family History No Family History Records FoundNo Family History Records FoundNo Family History Records FoundNo Family History Records FoundNo Family History Records Found No data available for this section No Family History Records FoundNo Family History Records FoundNo Family History Records Found Advance Directives No Advanced Directives Records FoundDocuments on File Type Date 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 Advance Directives and Living Will Power of Director Social Welfare Reason for Referral Status Reason Specialty Diagnoses / Procedures Referre d By Contact Referred To Contact [facility] Diagnoses Cigarette nicotine dependence with nicotine-induced disorder Procedures CT LUNG SCREENING (ANNUAL) Shelbi Thurman, FABY - ART EDITOR [address] [address] Assessments Diagnosis Cigarette nicotine dependence with nicotine-induced disorder Unspecified drug-induced mental disorder Additional Source Comments INFORMATION SOURCE (unrecogn ized section and content) DATE CREATED AUTHOR 10/20/[address] [facility] DATE CREATED AUTHOR AUTHOR'S ORGANIZ ATION 04/04/2018 [facility] DATE CREATED AUTHOR AUTHOR'S ORGANIZ ATION 04/09/2018 [facility] DATE CREATED AUTHOR AUTHOR'S ORGANIZ ATION 09/26/2019 [facility] DATE CREATED AUTHOR AUTHOR'S ORGANIZ ATION 10/02/2022 [facility] DATE CREATED AUTHOR AUTHOR'S ORGANIZ ATION 06/15/2023 [facility] DATE CREATED AUTHOR AUTHOR'S ORGANIZ ATION 06/15/2023 [facility] DATE CREATED AUTHOR AUTHOR'S ORGANIZ ATION 03/30/2024 [facility] dical Specialists EPIC Care Teams (unrecognized sec tion and content) Damage Cutter Relationship Specialty Start Date End Date Ottoniel Fuchs MD [facility] [address] [place], [place] [phone] PCP - General 12/21/13 Team Status: Inactive Member Role Status Dates Kale Hanna MD FACS Attending Provider Active Start: May 12, 2023 End: May 12, 2023 Damage Cutter Relationship Specialty Start Date End Date Antonio Hopkins MD [address] [place] [phone] PCP - General Family Medicine 10/21/22 Antonio Hopkins MD [address] [place] [phone] PCP - Jaycee DAVIS 11/25/23 Damage Cutter Relationship Specialty Start Date End Date Antonio Hopkins MD [address] [place] [phone] PCP - General Family Medicine 10/21/22 Antonio Hokpins MD [address] [place] [phone] PCP - Jaycee DAVIS 11/25/23 Damage Cutter Relationship Specialty Start Date End Date Antonio Hopkins MD [address] [place] [address] PCP - General Family Medicine 10/21/22 Antonio Hopkins MD [address] [place] [address] PCP - Jaycee DAVIS 11/25/23 [...] BE BASED ON THE PRIMARY CLINICAL RECORDS. [employer] provides no warranty or guarantee of the accuracy or completeness of information in this document.
--- NOTE | 2024-04-20 12:48 | CM.DCFOLLOWU ---
Person spoke with:patient How are you feeling?well How is your pain?none Did you understand your discharge instructions?yes Do you have any questions about your discharge instructions?no Were you given any prescriptions at discharge?yes Were you able to get your prescriptions filled?yes Do you understand how to take your medications as ordered?yes Do you have any questions about your follow up appointment and do you plan to keep your follow up appointment? no questions, follow up with PCP scheduled, needs to schedule with Dr. Lovelace Is there anything else that you would like to discuss?no Questions/Comments/Concerns/Other:none
== END 2024-04-15 13:34 | disposition home or self-care (01) | DRG 190 ==
LOC: ER 16:53 → MS 04-14 08:21
PROVIDERS: Physician Assistant; Registered Nurse; Admitting Provider Internal Medicine; Emergency Provider Emergency Medicine; PCP Family Medicine; Visit Provider Internal Medicine
DX: J44.1 Chronic obstructive pulmonary disease with (acute) exacerbation (principal); J96.01 Acute respiratory failure with hypoxia; E89.0 Postprocedural hypothyroidism; I10 Essential (primary) hypertension; J43.9 Emphysema, unspecified; Z79.82 Long term (current) use of aspirin; Z79.51 Long term (current) use of inhaled steroids; Z79.890 Hormone replacement therapy; Z79.899 Other long term (current) drug therapy; Z87.891 Personal history of nicotine dependence
CPT/HCPCS: 36415; 71045; 80053; 82800; 83735; 83880; 84484; 85025; 85378; 85610; 85730; 87420; 87804; 87811; 93005; 94640; 94667; 94668; 94761; 96365; 96375; 99285; 99406; G0378; J0456; J0696; J2919

== ENCOUNTER 2024-06-05 09:05 | Outpatient (OUT) | payer MEDICARE, SELFPAY ==
--- OUTSIDE RECORDS SUMMARY | 2024-06-05 09:11 | XMS_ITS | CCD ---
Author Organization [facility] CliniSyil Care Team Providers Care Communications Electrician Supervisor Name Role Phone Niraula, Lupillo Unavailable Unavailable PROVIDER, UNKNOWN Unavailable Unavailable JEF, OTTONIEL B Unavailable Unavailable Jef, Ottoniel Unavailable Unavailable PROVIDER, UNKNOWN Unavailable Unavailable Jef, Ottoniel Unavailable Unavailable DOZIER, DEEPIKAH Unavailable Unavailable PROVIDER, UNKNOWN Unavailable Unavailable [place], Ottoniel Unavailable Unavailable FIGUEROA, MASROOR Unavailable Unavailable PROVIDER, UNKNOWN Unavailable Unavailable [place], Ottoniel Unavailable Unavailable FIGUEROA, MASROOR Unavailable Unavailable PROVIDER, UNKNOWN Unavailable Unavailable [place], Ottoniel Unavailable Unavailable Jef, Ottoniel Unavailable Unavailable PROVIDER, UNKNOWN Unavailable Unavailable Jef, Ottoniel Unavailable Unavailable FIGUEROA, MASROOR Unavailable Unavailable PROVIDER, UNKNOWN Unavailable Unavailable [place], Ottoniel Unavailable Unavailable NIRAULA, LUPILLO Unavailable Unavailable Jef, Ottoniel Unavailable Unavailable Tsivitse Eddi Unavailable Unavailable PROVIDER, UNKNOWN Unavailable Unavailable Jef, Ottoniel Unavailable Unavailable Jef, Ottoniel Primary Care Provider DR HANDY KEATING Consulting Unavailable JAYDONERECarlos, DR ANTONIO Cadena Primary Care Unavailable SAMSA ., ALIS Attending Unavailable SAMSA ., ALIS Admitting Unavailable SAMSA ., ALIS Consulting Unavailable SANDEEP, DR ANTONIO Cadena Primary Care Unavailable SANDEEP, DR ANTONIO Cadena Admitting Unavailable NADNAA, DR ANTONIO Cadena Attending Unavailable SANDEEP, DR ANTONIO Cadena Consulting Unavailable DR HANDY KEATING Consulting Unavailable SANDEEP, DR ANTONIO Cadena Primary Care Unavailable SAMSA ., ALIS Admitting Unavailable SAMSA ., ALIS Attending Unavailable SAMSA ., ALIS Consulting Unavailable ALINA ., DR STOCK Consulting Unavailable SANDEEP, DR ANTONIO Cadena Primary Care Unavailable TAL ., DANNI Admitting Unavailable TAL ., DANNI Attending Unavailable SAMSA ., ALIS Consulting Unavailable ARIANNA CEVALLOS Consulting Unavailable LEATHA, DAMASO Consulting Unavailable SHARP, TERESA Consulting Unavailable TAL ., DANNI Consulting Unavailable TAL II, ANNALISA Consulting Unavailable ZHANE, DANNI Consulting Unavailable SAMSA ., ALIS Admitting Unavailable DR ANTONIO HOPKINS Primary Care Unavailable SAMSA ., ALIS Attending Unavailable SAMSA ., ALIS Consulting Unavailable SAMSA ., ALIS Admitting Unavailable DR ANTONIO HOPKINS Primary Care Unavailable SAMSA ., ALIS Attending Unavailable SAMSA ., ALIS Consulting Unavailable HOWIE CAMPO Consulting Unavailable GEMRODRIGUEZ HUSSEIN Consulting Unavailable SONIYA NARVAEZ Consulting Unavailable Ottoniel Fuchs MD Primary Care Provider ANTONIO HOPKINS Primary Care Physician MD Kale Hanna Attending Provider Kale Hanna Attending Unavailable Kale Hanna Admitting Unavailable ISIS, Kale Gonzalez Attending Unavailable ANTONIO HOPKINS Referring Unavailable Kale HANNA Attending Unavailable Kale HANNA Attending Unavailable Antonio Hopkins MD Primary Care Provider [phone] Antonio Hopkins MD Unavailable Delmar Bowen MA Unavailable Unavailable ANTONIO HOPKINS Attending Unavailable ANTONIO HOPKINS Attending Unavailable BARBIE DHALIWAL Attending Unavailable Allergies Allergy Classification Reported Allergen(s) Allergy Type Date of Onset Reaction(s) Facility (1 source) No Known Medication Allergies; Translations: [No Known Medication Allergies] Propensity to adverse reactions (disorder) [facility] Repository Medications Current Medications Medication Drug Class(es) Dates Sig (Normalized) Sig (Original) [id number] 200 actuat albuterol 0.09 mg/actuat metered dose inhaler (12 sources) beta2-Adrenergic Agonist Start: 07-26-2023 take 2 puff(s) by inhalation every four hours for wheezing albuterol HFA 90 mcg/act inhaler Indications: Bronchiectasis without complication ([facility]) Inhale 2 puffs every 4 [...] 09/09/2018 Active amLODIPine 5 mg oral tablet (7 sources) Dihydropyridine Calcium Channel Jovita Start: 07-26-2023 End: 07-25-2024 take 1 tablet by mouth once daily amLODIPine (Norvasc) 5 MG tablet Indications: Essential hypertension, benign (CMS/HCC) Take 1 tablet (5 mg) by mouth Daily 30 tablet 11 07/26/2023 07/25/2024 Active Start: 04-09-2023 take 1 tablet by shelby th once daily amLODIPine 5 mg Tab 5 mg = 1 tab(s), Oral, Daily, Refills(s) 0 Start Date: 04/09/23 Status: Ordered aspirin 81 mg delayed release oral tablet (8 sources) Platelet Aggregation Inhibitor, Nonsteroidal Anti-inflammatory Drug [...] propionate 0.05 mg/actuat metered dose nasal spray (7 sources) Corticosteroid Start: 04-09-2023 Flonase 0.05 m g/inh Anderson 100 mcg, Nasal, Daily, Refill(s) 0 Start [...] / vilanterol 0.025 mg/actuat dry powder inhaler (4 sources) Anticholinergic, Corticosteroid, beta2-Adrenergic Agonist Fluticasone-Umeclidi n-Vilant [...] Active levothyroxine sodium 0.112 mg oral tablet (8 sources) l-Thyroxine Start: 07-26-2023 End: 07-25-2024 take [...] Active losartan potassium 50 mg oral tablet (8 sources) Angiotensin 2 Receptor Jovita Start: 07-26-2023 [...] 3 08/09/2019 Active Multiple Vitamin (MULTI-DAY PO) (6 sources) Multiple Vitamin (MULTI-DAY PO) Take by mouth Active Multiple Vitamin TABS (1 source) take 1 tablet by mouth once daily Multiple Vitamin TABS Take 1 tablet by mouth daily 0 Active Multivitamin preparation (1 source) Start: 04-09-2023 take 1 tablet by mouth once daily multivitamin 1 tab, Oral, Daily, Refill(s) 0 Start Date: 04/09/23 Status: Ordered predniSONE 20 mg oral tablet (2 sources) Start: 04-15-2024 End: 04-28-2024 take 3 tablets by mouth once daily, then take 2 tablets by mouth once daily, then take 1 tablet by mouth once daily, then take 0.5 tablet by mouth once daily predniSONE (Deltasone) 20 MG tablet TAKE 3 TABLETS BY MOUTH ONCE DAILY FOR 3 DAYS, THEN TAKE 2 TABLETS ONCE DAILY FOR 3 DAYS, THEN TAKE 1 TABLET ONCE DAILY FOR 3 DAYS, THEN TAKE 1/2 (ONE-HALF) OF A TABLET ONCE DAILY FOR 4 DAYS 04/15/2024 04/28/2024 Active sodium chloride 9 mg/ml inhalation solution (6 sources) sodium chloride 0.9 % nebulizer solution [...] Emphysema, unspecified; Translations: [Bronchiectasis, uncomplicated] Onset: 12-25-2016 Resolved: 04-27-2024 12-25-2016 Chronic Complications of surgical procedures or medical care (12 sources) Postprocedural hypothyroidism; Translations: [Postoperative hypothyroidism] Onset: 12-13-2014 12-25-2015 Chronic Coronary atherosclerosis and other heart disease (2 sources) Atherosclerotic heart disease of [place] coronary artery without angina pectoris; Translations: [Athscl heart disease of [place] coronary artery w/o ang pctrs] Onset: 03-08-2018 Chronic Deficiency and other anemia (2 sources) Anemia, unspecified; Translations: [Anemia, unspecified] Onset: 04-04-2018 Episodic Diabetes mellitus without complication (10 sources) Prediabetes; Translations: [Prediabetes] Onset: 12-29-2018 12-29-2018 Episodic Esophageal disorders (1 source) Gastro-esophageal reflux disease without esophagitis; Translations: [GERD WITHOUT ESOPHAGITIS] Onset: 04-01-2022 Chronic Essential hypertension (14 sources) Essential (primary) hypertension; Translations: [Benign hypertension] Onset: 12-25-2015 12-25-2015 Chronic Menopausal disorders (1 source) Hormone replacement therapy; Translations: [HORMONE REPLACEMENT THERAPY] Onset: 09-22-2022 Episodic Other aftercare (1 source) senior care (current) use of aspirin; Translations: [MOBILE SOLUTIONS ARCHITECT CURRENT USE OF ASPIRIN] Onset: 09-22-2022 Episodic Other aftercare (5 sources) Other mcfp (current) drug therapy; Translations: [OTH MOBILE SOLUTIONS ARCHITECT CURRENT DRUG THERAPY] Onset: 10-30-2021 Episodic Other bone disease and musculoskeletal deformities (8 sources) Osteopenia; Translations: [Other specified disorders of bone density and structure, unspecified site] Onset: 07-03-2015 04-01-2023 Episodic Other lower respiratory disease (2 sources) [...] conditions (not mental disorders or infectious disease) (13 sources) Encounter for screening mammogram for malignant neoplasm of breast; Translations: [Screening for malignant neoplasm of colon done] Onset: 02-22-2018 Episodic Other upper respiratory disease (6 sources) Allergic rhinitis due to pollen; Translations: [Allergic rhinitis due to pollen] Onset: 09-27-2023 09-27-2023 Chronic Residual codes; unclassified (2 sources) Asymptomatic menopausal state; Translations: [Asymptomatic menopausal state] Onset: 02-22-2018 Episodic Residual codes; unclassified (4 sources) Menopause present; Translations: [Asymptomatic menopausal state] Onset: 04-27-2024 04-27-2024 Episodic Residual codes; unclassified (4 sources) Tobacco user; Translations: [Tobacco use] Onset: 04-27-2024 04-27-2024 Episodic Respiratory failure; insufficiency; arrest (adult) (1 [...] Classification Problem Date Documented Da te Episodic/Chronic Mood disorders (4 sources) Mood disorders Onset: 03-28-2024 03-28-2024 Other aftercare (6 sources) Long-term current use of drug therapy; Translations: [Other terminologist (current) drug therapy] Onset: 04-01-2023 04-01-2023 Episodic Other injuries and conditions due to external causes (1 source) Other foreign object in bronchus causing asphyxiation, initial encounter; Translations: [OTH FOREGN OBJ BRON ASPHYX INIT ENC] Onset: 04-01-2022 Episodic Other lower respiratory disease (2 sources) Cough; Translations: [Cough] Onset: 08-14-2017 Episodic Other lower respiratory disease (1 source) Lung mass; Translations: [Lung nodule] Onset: 12-25-2016 09-03-2017 Episodic Other lower respiratory disease (7 sources) Nodule of lung; Translations: [Solitary pulmonary nodule] Onset: 09-03-2017 02-08-2022 Episodic Poisoning by other medications and drugs (1 source) Angiotensin-conve rting-enzyme inhibitor adverse reaction; Translations: [CARYL-inhibitor cough] Onset: 12-13-2014 Resolved: 12-25-2016 12-25-2016 Episodic Results Test Name Value Interpretation Reference Range Facility ALL HEMOGLOBINon 01-31-2024 Hemoglobin (Bld) [Mass/Vol] 14.6 g/dL .0 - 16.0 g/dL [facility] General Surgery Office/Clini c Noteon 06-14-2023 [...] 1 puff(s), Inhalation, Daily Flonase 0.05 mg/inh Anderson, 100 mcg, Nasal, Daily levothyroxine 112 mcg [...] 2023-04-09: [id number] patient seen 06/04/2023 [facility] Comment on above: Result [...] EC Tab) fluticasone nasal (Flonase 0.05 mg/inh Anderson) fluticasone-vilantero l (Breo Ellipta 100 mcg-25 mcg [...] Unchanged fluticasone nasal (Flonase 0.05 mg/ inh Anderson) 100 Microgram Nasal Inhalation Every day Unchanged [...] you for choosing us for your care. [place] [facility] Reminderson 06-04-2023 Reminders - From: Tamia Price LPN To: N - Clinical; Sent: 06/04/2023 14:05:05 EST Show up: 04/11/2033 07:00:00 EST Subject: colonoscopy recall Due Date/Time: 05/12/2033 07:00:00 EST Reminder/Recall Patient due for screening colonoscopy 05/12/2033. Normal [facility] Outside Colonoscopyon 2023 Outside Colonoscopy [id number] .00TIFF Normal [facility] Pathology Noteon 05-20-2023 Pathology Note [id number]. 00TIFF Normal [facility] Matthieu 05-12-2023 L Specimen: [id number] Received: 05/12/23 Status: BILLY [place] Num: [id number] Spec Type: Surgical Subm Dr: Kale Hanna MD FACS Tissues: A Colon Biopsy (SIGMOID POLYP) Procedures: HE/2, Gross/Micro L4 Age/ Patient Sex Location Account Attending Physician Akil Chacon 67/F LABELL [id number] Kale Hanna MD FACS SPEC NUM: [id number] RECD: 05/12/23 STATUS: BILLY [place] NUM: [id number] DONIS: 05/12/[address]: Kale Hanna MD FACS ENTERED: 05/12/[address]: Vvi,Lab SPEC TYPE: Surgical DEPT: PERFECTO ORTIZ ORDERED: [...] in one cassette labeled A1. CPT Codes 40177 -------- -------- Specimen: [id number] Received: 05/12/23 Status: BILLY [place] Num: [id number] Spec Type: Surgical Subm Dr: Kale Hanna MD FACS Tissues: A Colon Biopsy (SIGMOID POLYP) Procedures: HE/Josue, Gross/Micro L4 -------- Patient: Akil Chacon [id number] (Continued) -------- Signed (signature on file) Ai Marquez MD 05/14/23 0853 [facility] [place] Insurance Correspondenceon 0 05-05-2023 Insurance Correspondence [id number] .[id number] [facility] Consent for Procedure/Surger yon 04-23-2023 Consent for Procedure/Surgery [id number] .00TIFF Normal [facility] Facesheeton 04-22-2023 Facesheet [id number]# 1.00TIFF Normal [facility] Ambulatory Visit Summaryon 1 06-22-2022 [...] EC Tab) fluticasone nasal (Flonase 0.05 mg/inh Anderson) fluticasone-vilantero l (Breo Ellipta 100 mcg-25 mcg [...] Unchanged fluticasone nasal (Flonase 0.05 mg/ inh Anderson) 100 Microgram Nasal Inhalation Every day Contact [...] for choosing us for your care. Normal [facility] Transfer Inon 04-06-2023 Transfer In [id number] .00TIFF [facility] Physician Referralon 023 Physician Referral [id number] .00TIFF [facility] CBC AUTO DIFFon 09-23-2022 BASO # 0.0 103/ul Normal 0.0-0.1 [facility] Comment on above: Performed By: #### C YTO #### [facility] [address] [address] [address] Jayy Marquez Basophils/100 WBC (Bld) 0.4 % Normal 0.2-2.0 [facility] Comment on above: Performed By: #### C YTO #### [facility] [address] [place] [address] Dr. Jayy Marquez EO # 0.1 103/ul Normal 0.0-0.7 [facility] Comment on above: Performed By: #### C YTO #### [facility] [address] [address] [address] Jayy Marquez Eosinophils/100 WBC (Bld) 0.5 % Critically low 0.9-7.0 [facility] Comment on above: Performed By: #### C YTO #### [facility] [address] [place] [address] Dr. Jayy Marquez Erythrocyte distribution width (RBC) [Ratio] 13.1 % Normal 11.0-15.0 [facility] Comment on above: Performed By: #### C YTO #### [facility] [address] [place] [address] Dr. Jayy Marquez Hematocrit (Bld) [Volume fraction] 43.0 % Normal 36.0-48.0 [facility] Comment on above: Performed By: #### C YTO #### [facility] [address] [place] [address] Dr. Jayy Marquez Hemoglobin (Bld) [Mass/Vol] 13.9 g/dL Normal 12.0-16.0 [facility] Comment on above: Performed By: #### C YTO #### [facility] [address] [place] [address] Dr. Jayy Marquez IG # 0.04 10e3/ul Critically high 0.00-0.03 [facility] Comment on above: Performed By: #### C YTO #### [facility] [address] [place] [address] Dr. Jayy Marquez IG % 0.4 % Normal 0.0-0.5 [facility] Comment on above: Performed By: #### C YTO #### [facility] [address] [place] [address] Dr. Jayy Marquez LYMPH # 0.7 103/ul Critically low 1.2-3.8 [facility] Comment on above: Performed By: #### C YTO #### [facility] [address] [place] [address] Dr. Jayy Marquez Lymphocytes/100 WBC (Bld) 6.7 % Critically low 20.5-60.0 [facility] Comment on above: Performed By: #### C YTO #### [facility] [address] [place] [address] Dr. Jayy Marquez MANUAL DIFF REQ NO Normal [facility] Comment on above: Performed By: #### C YTO #### [facility] [address] [place] [address] Dr. Jayy Marquez MCH (RBC) [Entitic mass] 31.2 pg Normal 26.7-34.0 [facility] Comment on above: Performed By: #### C YTO #### [facility] [address] [place] [address] Dr. Jayy Marquez MCHC (RBC) [Mass/Vol] 32.3 g/dL Normal 29.9-35.2 [facility] Comment on above: Performed By: #### C YTO #### [facility] [address] [place] [address] Dr. Jayy Marquez MCV (RBC) [Entitic vol] 96.4 fL Normal 81.0-99.0 [facility] Comment on above: Performed By: #### C YTO #### [facility] [address] [place] [address] Dr. Jayy Marquez MONO # 0.9 103/ul Critically high 0.3-0.8 [facility] Comment on above: Performed By: #### C YTO #### [facility] [address] [place] [address] Dr. Jayy Marquez Monocytes/100 WBC (Bld) 8.2 % Normal 1.7-12.0 [facility] Comment on above: Performed By: #### C YTO #### [facility] [address] [place] [address] Dr. Jayy Marquez NEUT # 9.0 103/ul Critically high 1.4-6.5 [facility] Comment on above: Performed By: #### C YTO #### [facility] [address] [place] [address] Dr. Jayy Marquez Neutrophils/100 WBC (Bld) 83.8 % Critically high 43.0-75.0 [facility] Comment on above: Performed By: #### C YTO #### [facility] [address] [address] [address] Jayy Marquez Platelet mean volume (Bld) [Entitic vol] 10.4 fL Normal 9.5-13.5 [facility] Comment on above: Performed By: #### C YTO #### [facility] [address] [place] [address] Dr. Jayy Marquez PLT 232 103/ul Normal 150-450 [facility] Comment on above: Performed By: #### C YTO #### [facility] [address] [place] [address] Dr. Jayy Marquez RBC 4.46 106/ul Normal 4.20-5.40 [facility] Comment on above: Performed By: #### C YTO #### [facility] [address] [place] [address] Dr. Jayy Marquez WBC 10.7 103/ul Normal 4.0-11.0 [facility] Comment on above: Performed By: #### C YTO #### [facility] [address] [place] [address] Dr. Jayy Marquez PROF CHEM 8 (BAS METB)on Anion gap [Moles/Vol] 13.4 mmol/L Normal [facility] Comment on above: Performed By: #### B MP #### [facility] [address] [place] [address] Dr. Jayy Marquez Calcium [Mass/Vol] 9.1 mg/dL Normal 8.5-10.1 [facility] Comment on above: Performed By: #### B MP #### [facility] [address] [place] [address] Dr. Jayy Marquez Chloride [Moles/Vol] 100 mmol/L Normal 98-107 [facility] Comment on above: Performed By: #### B MP #### [facility] [address] [place] [address] Dr. Jayy Marquez CO2 [Moles/Vol] 27.2 mmol/L Normal 21.0-32.0 [facility] Comment on above: Performed By: #### B MP #### [facility] [address] [address] [address] Jayy Marquez Creatinine [Mass/Vol] 0.77 mg/dL Normal 0.55-1.02 [facility] Comment on above: Performed By: #### B MP #### [facility] [address] [address] [address] Jayy Marquez EGFR-AF NORWEGIAN >60 Normal >=60 [facility] Comment on above: Performed By: #### B MP #### [facility] [address] [address] [address] Jayy Marquez EGFR-NON AF NORWEGIAN >60 Normal >=60 [facility] Comment on above: Performed By: #### B MP #### [facility] [address] [address] [address] Jayy Marquez Glucose [Mass/Vol] 173 mg/dL Critically high 74-106 [facility] Comment on above: Performed By: #### B MP #### [facility] [address] [address] [address] Jayy Marquez Potassium [Moles/Vol] 4.6 mmol/L Normal 3.5-5.1 [facility] Comment on above: Performed By: #### B MP #### [facility] [address] [place] [address] Dr. Jayy Marquez Sodium [Moles/Vol] 136 mmol/L Normal 136-145 [facility] Comment on above: Performed By: #### B MP #### [facility] [address] [address] [address] Jayy Marquez Urea nitrogen [Mass/Vol] 16.0 mg/dL Normal 7.0-18.0 [facility] Comment on above: Performed By: #### B MP #### [facility] [address] [address] [address] Jayy Marquez Urea nitrogen/Creatinine [Mass ratio] 20.8 mg/mg Normal [facility] Comment on above: Performed By: #### B MP #### [facility] [address] [address] [address] Jayy Marquez XR CHEST 1 Von [...] ELENO FUENTES Date: 2022-09-23 14:29 Normal [facility] BNPon 09-22-2022 Natriuretic peptide B (Bld) [Mass/Vol] 243.0 pg/mL Normal <=900.0 [facility] Comment on above: Performed By: #### B MP, BNP, HSTROPN #### [facility] [address] [place] [address] Dr. Jayy Marquez CBC AUTO DIFFon 09-22-2022 BASO # 0.0 103/ul Normal 0.0-0.1 [facility] Comment on above: Performed By: #### C VDAGS #### [facility] [address] [place] [address] Dr. Jayy Marquez Basophils/100 WBC (Bld) 0.4 % Normal 0.2-2.0 [facility] Comment on above: Performed By: #### C VDAGS #### [facility] [address] [place] [address] Dr. Jayy Marquez EO # 0.0 103/ul Normal 0.0-0.7 [facility] Comment on above: Performed By: #### C VDAGS #### [facility] [address] [place] [address] Dr. Jayy Marquez Eosinophils/100 WBC (Bld) 0.0 % Critically low 0.9-7.0 [facility] Comment on above: Performed By: #### C VDAGS #### [facility] [address] [place] [address] Dr. Jayy Marquez Erythrocyte distribution width (RBC) [Ratio] 13.1 % Normal 11.0-15.0 [facility] Comment on above: Performed By: #### C VDAGS #### [facility] [address] [place] [address] Dr. Jayy Marquez Hematocrit (Bld) [Volume fraction] 42.7 % Normal 36.0-48.0 [facility] Comment on above: Performed By: #### C VDAGS #### [facility] [address] [place] [address] Dr. Jayy Marquez Hemoglobin (Bld) [Mass/Vol] 13.9 g/dL Normal 12.0-16.0 [facility] Comment on above: Performed By: #### C VDAGS #### [facility] [address] [place] [address] Dr. Jayy Marquez IG # 0.03 10e3/ul Normal 0.00-0.03 [facility] Comment on above: Performed By: #### C VDAGS #### [facility] [address] [place] [address] Dr. Jayy Marquez IG % 0.4 % Normal 0.0-0.5 [facility] Comment on above: Performed By: #### C VDAGS #### [facility] [address] [place] [address] Dr. Jayy Marquez LYMPH # 0.4 103/ul Critically low 1.2-3.8 [facility] Comment on above: Performed By: #### C VDAGS #### [facility] [address] [place] [address] Dr. Jayy Marquez Lymphocytes/100 WBC (Bld) 5.5 % Critically low 20.5-60.0 [facility] Comment on above: Performed By: #### C VDAGS #### [facility] [address] [place] [address] Dr. Jayy Marquez MANUAL DIFF REQ NO Normal [facility] Comment on above: Performed By: #### C VDAGS #### [facility] [address] [place] [address] Dr. Jayy Marquez MCH (RBC) [Entitic mass] 31.2 pg Normal 26.7-34.0 [facility] Comment on above: Performed By: #### C VDAGS #### [facility] [address] [address] [address] Jayy Marquez MCHC (RBC) [Mass/Vol] 32.6 g/dL Normal 29.9-35.2 [facility] Comment on above: Performed By: #### C VDAGS #### [facility] [address] [place] [address] Dr. Jayy Marquez MCV (RBC) [Entitic vol] 96.0 fL Normal 81.0-99.0 [facility] Comment on above: Performed By: #### C VDAGS #### [facility] [address] [address] [address] Jayy Marquez MONO # 0.3 103/ul Normal 0.3-0.8 [facility] Comment on above: Performed By: #### C VDAGS #### [facility] [address] [place] [address] Dr. Jayy Marquez Monocytes/100 WBC (Bld) 3.5 % Normal 1.7-12.0 [facility] Comment on above: Performed By: #### C VDAGS #### [facility] [address] [place] [address] Dr. Jayy Marquez NEUT # 6.9 103/ul Critically high 1.4-6.5 [facility] Comment on above: Performed By: #### C VDAGS #### [facility] [address] [place] [address] Dr. Jayy Marquez Neutrophils/100 WBC (Bld) 90.2 % Critically high 43.0-75.0 [facility] Comment on above: Performed By: #### C VDAGS #### [facility] [address] [address] [address] Jayy Marquez Platelet mean volume (Bld) [Entitic vol] 9.8 fL Normal 9.5-13.5 [facility] Comment on above: Performed By: #### C VDAGS #### [facility] [address] [address] [address] Jayy Marquez PLT 207 103/ul Normal 150-450 [facility] Comment on above: Performed By: #### C VDAGS #### [facility] [address] [address] [address] Jayy Marquez RBC 4.45 106/ul Normal 4.20-5.40 [facility] Comment on above: Performed By: #### C VDAGS #### [facility] [address] [place] [address] Dr. Jayy Marquez WBC 7.6 103/ul Normal 4.0-11.0 [facility] Comment on above: Performed By: #### C VDAGS #### [facility] [address] [place] [address] Dr. Jayy Marquez BASO # 0.0 103/ul Normal 0.0-0.1 [facility] Comment on above: Performed By: #### C BC #### [facility] [address] [place] [address] Dr. Jayy Marquez Basophils/100 WBC (Bld) 0.4 % Normal 0.2-2.0 [facility] Comment on above: Performed By: #### C BC #### [facility] [address] [place] [address] Dr. Jayy Marquez EO # 0.1 103/ul Normal 0.0-0.7 [facility] Comment on above: Performed By: #### C BC #### [facility] [address] [place] [address] Dr. Jayy Marquez Eosinophils/100 WBC (Bld) 1.4 % Normal 0.9-7.0 [facility] Comment on above: Performed By: #### C BC #### [facility] [address] [place] [address] Dr. Jayy Marquez Erythrocyte distribution width (RBC) [Ratio] 13.2 % Normal 11.0-15.0 [facility] Comment on above: Performed By: #### C BC #### [facility] [address] [place] [address] Dr. Jayy Marquez Hematocrit (Bld) [Volume fraction] 45.5 % Normal 36.0-48.0 [facility] Comment on above: Performed By: #### C BC #### [facility] [address] [place] [address] Dr. Jayy Marquez Hemoglobin (Bld) [Mass/Vol] 15.3 g/dL Normal 12.0-16.0 [facility] Comment on above: Performed By: #### C BC #### [facility] [address] [place] [address] Dr. Jayy Marquez IG # 0.03 10e3/ul Normal 0.00-0.03 [facility] Comment on above: Performed By: #### C BC #### [facility] [address] [place] [address] Dr. Jayy Marquez IG % 0.3 % Normal 0.0-0.5 [facility] Comment on above: Performed By: #### C BC #### [facility] [address] [place] [address] Dr. Jayy Marquez LYMPH # 1.3 103/ul Normal 1.2-3.8 [facility] Comment on above: Performed By: #### C BC #### [facility] [address] [place] [address] Dr. Jayy Marquez Lymphocytes/100 WBC (Bld) 13.8 % Critically low 20.5-60.0 [facility] Comment on above: Performed By: #### C BC #### [facility] [address] [place] [address] Dr. Jayy Marquez MANUAL DIFF REQ NO Normal [facility] Comment on above: Performed By: #### C BC #### [facility] [address] [place] [address] Dr. Jayy Marquez MCH (RBC) [Entitic mass] 32.0 pg Normal 26.7-34.0 [facility] Comment on above: Performed By: #### C BC #### [facility] [address] [place] [address] Dr. Jayy Marquez MCHC (RBC) [Mass/Vol] 33.6 g/dL Normal 29.9-35.2 [facility] Comment on above: Performed By: #### C BC #### [facility] [address] [address] [address] Jayy Marquez MCV (RBC) [Entitic vol] 95.2 fL Normal 81.0-99.0 [facility] Comment on above: Performed By: #### C BC #### [facility] [address] [address] [address] Jayy Marquez MONO # 1.3 103/ul Critically high 0.3-0.8 [facility] Comment on above: Performed By: #### C BC #### [facility] [address] [place] [address] Dr. Jayy Marquez Monocytes/100 WBC (Bld) 13.7 % Critically high 1.7-12.0 [facility] Comment on above: Performed By: #### C BC #### [facility] [address] [place] [address] Dr. Jayy Marquez NEUT # 6.7 103/ul Critically high 1.4-6.5 [facility] Comment on above: Performed By: #### C BC #### [facility] [address] [place] [address] Dr. Jayy Marquez Neutrophils/100 WBC (Bld) 70.4 % Normal 43.0-75.0 [facility] Comment on above: Performed By: #### C BC #### [facility] [address] [place] [address] Dr. Jayy Marquez Platelet mean volume (Bld) [Entitic vol] 9.6 fL Normal 9.5-13.5 [facility] Comment on above: Performed By: #### C BC #### [facility] [address] [place] [address] Dr. Jayy Marquez PLT 218 103/ul Normal 150-450 [facility] Comment on above: Performed By: #### C BC #### [facility] [address] [place] [address] Dr. Jayy Marquez RBC 4.78 106/ul Normal 4.20-5.40 [facility] Comment on above: Performed By: #### C BC #### [facility] [address] [place] [address] Dr. Jayy Marquez WBC 9.5 103/ul Normal 4.0-11.0 [facility] Comment on above: Performed By: #### C BC #### [facility] [address] [place] [address] Dr. Jayy Marquez PROF CHEM 8 (BAS METB)on Anion gap [Moles/Vol] 11.3 mmol/L Normal Th [facility] Comment on above: Performed By: #### B MP #### [facility] [address] [place] [address] Dr. Jayy Marquez Calcium [Mass/Vol] 8.7 mg/dL Normal 8.5-10.1 [facility] Comment on above: Performed By: #### B MP #### [facility] [address] [place] [address] Dr. Jayy Marquez Chloride [Moles/Vol] 100 mmol/L Normal 98-107 [facility] Comment on above: Performed By: #### B MP #### [facility] [address] [place] [address] Dr. Jayy Marquez CO2 [Moles/Vol] 27.6 mmol/L Normal 21.0-32.0 [facility] Comment on above: Performed By: #### B MP #### [facility] [address] [place] [address] Dr. Jayy Marquez Creatinine [Mass/Vol] 0.82 mg/dL Normal 0.55-1.02 [facility] Comment on above: Performed By: #### B MP #### [facility] [address] [place] [address] Dr. Jayy Marquez EGFR-AF NORWEGIAN >60 Normal >=60 [facility] Comment on above: Performed By: #### B MP #### [facility] [address] [place] [address] Dr. Jayy Marquez EGFR-NON AF NORWEGIAN >60 Normal >=60 [facility] Comment on above: Performed By: #### B MP #### [facility] [address] [place] [address] Dr. Jayy Marquez Glucose [Mass/Vol] 203 mg/dL Critically high 74-106 [facility] Comment on above: Performed By: #### B MP #### [facility] [address] [address] [address] Jayy Marquez Potassium [Moles/Vol] 3.9 mmol/L Normal 3.5-5.1 [facility] Comment on above: Performed By: #### B MP #### [facility] [address] [address] [address] Jayy Marquez Sodium [Moles/Vol] 135 mmol/L Critically low 136-145 [facility] Comment on above: Performed By: #### B MP #### [facility] [address] [place] [address] Dr. Jayy Marquez Urea nitrogen [Mass/Vol] 11.0 mg/dL Normal 7.0-18.0 [facility] Comment on above: Performed By: #### B MP #### [facility] [address] [place] [address] Dr. Jayy Marquez Urea nitrogen/Creatinine [Mass ratio] 13.4 mg/mg Normal [facility] Comment on above: Performed By: #### B MP #### [facility] [address] [place] [address] Dr. Jayy Marquez Anion gap [Moles/Vol] 12.9 mmol/L Normal [facility] Comment on above: Performed By: #### C YTO #### [facility] [address] [place] [address] Dr. Jayy Marquez Calcium [Mass/Vol] 9.2 mg/dL Normal 8.5-10.1 [facility] Comment on above: Performed By: #### C YTO #### [facility] [address] [place] [address] Dr. Jayy Marquez Chloride [Moles/Vol] 98 mmol/L Normal 98-107 [facility] Comment on above: Performed By: #### C YTO #### [facility] [address] [place] [address] Dr. Jayy Marquez CO2 [Moles/Vol] 25.8 mmol/L Normal 21.0-32.0 [facility] Comment on above: Performed By: #### C YTO #### [facility] [address] [address] [address] aJyy Marquez Creatinine [Mass/Vol] 0.90 mg/dL Normal 0.55-1.02 [facility] Comment on above: Performed By: #### C YTO #### [facility] [address] [address] [address] Jayy Marquez EGFR-AF NORWEGIAN >60 Normal >=60 [facility] Comment on above: Performed By: #### C YTO #### [facility] [address] [place] [address] Dr. Jayy Marquez EGFR-NON AF NORWEGIAN >60 Normal >=60 [facility] Comment on above: Performed By: #### C YTO #### [facility] [address] [place] [address] Dr. Jayy Marquez Glucose [Mass/Vol] 150 mg/dL Critically high 74-106 [facility] Comment on above: Performed By: #### C YTO #### [facility] [address] [address] [address] Jayy Marquez Potassium [Moles/Vol] 3.7 mmol/L Normal 3.5-5.1 [facility] Comment on above: Performed By: #### C YTO #### [facility] [address] [address] [address] Jayy Marquez Sodium [Moles/Vol] 133 mmol/L Critically low 136-145 [facility] Comment on above: Performed By: #### C YTO #### [facility] [address] [address] [address] Jayy Marquez Urea nitrogen [Mass/Vol] 14.0 mg/dL Normal 7.0-18.0 [facility] Comment on above: Performed By: #### C YTO #### [facility] [address] [place] [address] Dr. Jayy Marquez Urea nitrogen/Creatinine [Mass ratio] 15.6 mg/mg Normal [facility] Comment on above: Performed By: #### C YTO #### [facility] [address] [place] [address] Dr. Jayy Marquez RESPIRATORY PANEL PLUSon Adenovirus Not detected Normal NOT DETECTED [facility] Comment on above: Performed By: #### C VDAGS #### [facility] [address] [place] [address] Dr. Jayy King. Parapertusis Not detected Normal NOT DETECTED [facility] Comment on above: Performed By: #### C VDAGS #### [facility] [address] [place] [address] Dr. Jayy King. Pertussis Not detected Normal NOT DETECTED [facility] Comment on above: Performed By: #### C VDAGS #### [facility] [address] [place] [address] Dr. Jayy Marquez Chlamydia Pneumoniae Not detected Normal NOT DETECTED [facility] Comment on above: Performed By: #### C VDAGS #### [facility] [address] [place] [address] Dr. Jayy Marquez Coronavirus 229E Not detected Normal NOT DETECTED [facility] Comment on above: Performed By: #### C VDAGS #### [facility] [address] [place] [address] Dr. Jayy Marquez Coronavirus HKU1 Not detected Normal NOT DETECTED [facility] Comment on above: Performed By: #### C VDAGS #### [facility] [address] [place] [address] Dr. Jayy Marquez Coronavirus NL63 Not detected Normal NOT DETECTED [facility] Comment on above: Performed By: #### C VDAGS #### [facility] [address] [place] [address] Dr. Jayy Marquez Coronavirus OC43 Not detected Normal NOT DETECTED [facility] Comment on above: Performed By: #### C VDAGS #### [facility] [address] [place] [address] Dr. Jayy Marquez Influenza A H1 Not detected Normal NOT DETECTED [facility] Comment on above: Performed By: #### C VDAGS #### [facility] [address] [place] [address] Dr. Jayy Marquez Influenza A H1 2009 Not detected Normal NOT DETECTED [facility] Comment on above: Performed By: #### C VDAGS #### [facility] [address] [address] [address] Jayy Marquez Influenza A H3 Not detected Normal NOT DETECTED [facility] Comment on above: Performed By: #### C VDAGS #### [facility] [address] [place] [address] Dr. Jayy Marquez Influenza B Not detected Normal NOT DETECTED [facility] Comment on above: Performed By: #### C VDAGS #### [facility] [address] [place] [address] Dr. Jayy Marquez Metapneumovirus Not detected Normal NOT DETECTED [facility] Comment on above: Performed By: #### C VDAGS #### [facility] [address] [place] [address] Dr. Jayy Marquez Mycoplas. Pneumoniae Not detected Normal NOT DETECTED [facility] Comment on above: Performed By: #### C VDAGS #### [facility] [address] [place] [address] Dr. Jayy Marquez Parainfluenza 1 Not detected Normal NOT DETECTED [facility] Comment on above: Performed By: #### C VDAGS #### [facility] [address] [place] [address] Dr. Jayy Marquez Parainfluenza 2 Not detected Normal NOT DETECTED [facility] Comment on above: Performed By: #### C VDAGS #### [facility] [address] [address] [address] Jayy Marquez Parainfluenza 3 Not detected Normal NOT DETECTED [facility] Comment on above: Performed By: #### C VDAGS #### [facility] [address] [place] [address] Dr. Jayy Marquez Parainfluenza 4 Not detected Normal NOT DETECTED [facility] Comment on above: Performed By: #### C VDAGS #### [facility] [address] [place] [address] Dr. Jayy Marquez Rhino/Enterovirus Not detected Normal NOT DETECTED [facility] Comment on above: Performed By: #### C VDAGS #### [facility] [address] [place] [address] Dr. Jayy Marquez RP2 Header 1 RESPIRATORY PANEL: VIRUSES Normal [facility] Comment on above: Performed By: #### C VDAGS #### [facility] [address] [place] [address] Dr. Jayy Marquez RP2 Header 2 RESPIRATORY PANEL: BACTERIA Normal [facility] Comment on above: Performed By: #### C VDAGS #### [facility] [address] [place] [address] Dr. Jayy Marquez RSV Not detected Normal NOT DETECTED [facility] Comment on above: Performed By: #### C VDAGS #### [facility] [address] [place] [address] Dr. Jayy Marquez SARS-CoV-2 (COVID-19) RNA SILVINO+probe Ql (Unsp spec) Not detected Normal NOT DETECTED [facility] Comment on above: Performed By: #### C VDAGS #### [facility] [address] [place] [address] Dr. Jayy Marquez SYMPTOMATIC COVID-19 ANTIGEN on 09-22-2022 EUA Statement SEE BELOW Normal [facility] Comment on above: Result Comment: [...] sooner. Performed By: #### C VDAGS #### [facility] [address] [place] [address] Dr. Jayy Marquez SARS-CoV-2 (COVID-19) RNA SILVINO+probe Ql (Unsp spec) Negative Normal NEGATIVE [facility] Comment on above: Performed By: #### C VDAGS #### [facility] [address] [place] [address] Dr. Jayy Marquez TROPONIN, HIGH SENSITIVITYon 09-22-2022 HSTROP 12.9 pg/mL Normal 4.0-51.3 [facility] Comment on above: Result Comment: CUT- OFF POINTS HAVE BEEN ESTABLISHED BASED ON THE FOURTH UNIVERSAL DEFINITIONS OF MYOCARDIAL INFARCTION. THE UPPER REFERENCE LIMIT (URL) OF TROPONIN, DEFINED THE 99TH PERCENTILE OF cTnI DISTRIBUTION IN A REFERENCE POPULATION, HAS BEEN CONFIRMED THE DECISION THRESHOLD FOR DE DIAGNOSIS. Performed By: #### B MP, BNP, HSTROPN #### [facility] [address] [place] [address] Dr. Jayy Marquez XR CHEST 1 Von [...] ARIANNA CEVALLOS Date: 2022-09-22 00:51 Normal [facility] CT CHEST WO CONon 09-01-2022 CT [...] HANDY KEATING Date: 2022-09-01 15:28 Normal [facility] ACID FAST SMEAR AND CXon Acid Fast Culture Negative Normal [facility] Comment on above: Result Comment: No a goyo fast bacilli isolated after 6 weeks. Performed By: #### A FB #### [facility] [address] [place] [address] Dr. Jayy Marquez Performed By: #### C VDAGS #### [facility] [address] [place] [address] Dr. Jayy Marquez Acid Fast Smear Negative Normal [facility] Comment on above: Performed By: #### A FB #### [facility] [address] [place] [address] Dr. Jayy Marquez Performed By: #### C VDAGS #### [facility] [address] [place] [address] Dr. Jayy Marquez [employer] Specimen Processing Concentration Normal [facility] Comment on above: Performed By: #### A FB #### [facility] [address] [place] [address] Dr. Jayy Marquez Performed By: #### C VDAGS #### [facility] [address] [place] [address] Dr. Jayy Marquez FUNGAL CULTUREon 04-23-2022 Fungus (Mycology) Culture Final report Normal [facility] Comment on above: Performed By: #### C XFUN #### [facility] [address] [address] [address] Jayy Marquez Performed By: #### C VDAGS #### [facility] [address] [place] [address] Dr. Jayy Marquez Fungus Stain Final report [facility] Comment on above: Performed By: #### C XFUN #### [facility] [address] [address] [address] Jayy Marquez Performed By: #### C VDAGS #### [facility] [address] [place] [address] Dr. Jayy Marquez Result 1 Comment [facility] Comment on above: Result Comment: TANYA/ Calcofluor preparation: no fungus observed. Performed By: #### C XFUN #### [facility] [address] [place] [address] Dr. Jayy Marquez Result Comment: No y east or mold isolated after 4 weeks. Performed By: #### C VDAGS #### [facility] [address] [place] [address] Dr. Jayy Marquez CULTURE OTHERon 03-26-2022 CULTURE [...] S F Tetracycline >=16 R F Normal [facility] Comment on above: Performed By: #### C YTO #### [facility] [address] [place] [address] Dr. Jayy Marquez CULTURE OTHERon 03-25-2022 CULTURE [...] F Levofloxacin 0.25 S F Normal [facility] Comment on above: Performed By: #### C YTO #### [facility] [address] [place] [address] Dr. Jayy Marquez CYTOLOGYon 03-23-2022 SENT TO REF LAB 03/23/2022 Normal [facility] Comment on above: Performed By: #### C YTO #### [facility] [address] [place] [address] Dr. Jayy Marquez GRAM STAINon 03-23-2022 DIPHTHEROIDS Normal [facility] Comment on above: Performed By: #### C VDAGS #### [facility] [address] [place] [address] Dr. Jayy Marquez EPITHELIALS Normal [facility] Comment on above: Performed By: #### C VDAGS #### [facility] [address] [place] [address] Dr. Jayy Marquez FUNGAL ELEMENTS Normal [facility] Comment on above: Performed By: #### C VDAGS #### [facility] [address] [place] [address] Dr. Jayy AMADOR NEG BACILLI FEW Normal [facility] Comment on above: Performed By: #### C VDAGS #### [facility] [address] [place] [address] Dr. Jayy AMADOR NEG DIPPLOCOCCI Normal [facility] Comment on above: Performed By: #### C VDAGS #### [facility] [address] [place], [place] [id number] Dr. Jayy Marquez GRAM POS BACILLI Normal [facility] Comment on above: Performed By: #### C VDAGS #### [facility] [address] [place] [address] Dr. Jayy Marquez GRAM POSITIVE COCCI FEW Normal [facility] Comment on above: Performed By: #### C VDAGS #### [facility] [address] [place] [address] Dr. Jayy Marquez GRAM STAIN SOURCE Rt Middle Lobe Lavage Normal [facility] Comment on above: Performed By: #### C VDAGS #### [facility] [address] [place] [address] Dr. Jayy Marquez GRAM STAIN SOURCE Lingula Lt Upper Lob e Lavage Normal [facility] Comment on above: Performed By: #### C VDAGS #### [facility] [address] [place] [address] Dr. Jayy Marquez GS_DIPTH Normal [facility] Comment on above: Performed By: #### C VDAGS #### [facility] [address] [place] [address] Dr. Jayy Marquez WBC MANY Normal [facility] Comment on above: Performed By: #### C VDAGS #### [facility] [address] [place] [address] Dr. Jayy Marquez WBC MODERATE Normal [facility] Comment on above: Performed By: #### C VDAGS #### [facility] [address] [place] [address] Dr. Jayy Marquez Covid-19 PCR (CVDTB)on 02-25 SARS-CoV-2 (COVID-19) RNA SILVINO+probe Ql (Unsp spec) Not detected Normal NOT DETECTED [facility] Comment on above: Result Comment: This test is not yet approved or cleared by the [place] FDA. When there are no FDA-approved or cleared tests available, and other criteria are met, FDA can make tests available under an emergency access mechanism called an Emergency Use Authorization (EUA). The EUA for this test is supported by the [place] of Health and Human Service's (HHS's) declaration [...] SARS-CoV-2. Performed By: #### C YTO #### [facility] [address] LUNG CANCER SCREENINGon [...] HANDY KEATING Date: 2022-03-04 16:14 Normal [facility] CBC AUTO DIFFon 10-30-2021 BASO # 0.0 103/ul Normal 0.0-0.1 [facility] Comment on above: Performed By: #### C VDAGS #### [facility] [address] [address] [address] Jayy Marquez Basophils/100 WBC (Bld) 0.7 % Normal 0.2-2.0 [facility] Comment on above: Performed By: #### C VDAGS #### [facility] [address] [place] [address] Dr. Jayy Marquez EO # 0.2 103/ul Normal 0.0-0.7 [facility] Comment on above: Performed By: #### C VDAGS #### [facility] [address] [place] [address] Dr. Jayy Marquez Eosinophils/100 WBC (Bld) 2.6 % Normal 0.9-7.0 [facility] Comment on above: Performed By: #### C VDAGS #### [facility] [address] [place] [address] Dr. Jayy Marquez Erythrocyte distribution width (RBC) [Ratio] 14.7 % Normal 11.0-15.0 [facility] Comment on above: Performed By: #### C VDAGS #### [facility] [address] [place] [address] Dr. Jayy Marquez Hematocrit (Bld) [Volume fraction] 48.9 % Critically high 36.0-48.0 [facility] Comment on above: Performed By: #### C VDAGS #### [facility] [address] [place] [address] Dr. Jayy Marquez Hemoglobin (Bld) [Mass/Vol] 15.5 g/dL Normal 12.0-16.0 [facility] Comment on above: Performed By: #### C VDAGS #### [facility] [address] [address] [address] Jayy Marquez IG # 0.01 10e3/ul Normal 0.00-0.03 [facility] Comment on above: Performed By: #### C VDAGS #### [facility] [address] [place] [address] Dr. Jayy Marquez IG % 0.2 % Normal 0.0-0.5 [facility] Comment on above: Performed By: #### C VDAGS #### [facility] [address] [place] [address] Dr. Jayy Marquez LYMPH # 1.6 103/ul Normal 1.2-3.8 [facility] Comment on above: Performed By: #### C VDAGS #### [facility] [address] [place] [address] Dr. Jayy Marquez Lymphocytes/100 WBC (Bld) 26.0 % Normal 20.5-60.0 [facility] Comment on above: Performed By: #### C VDAGS #### [facility] [address] [place] [address] Dr. Jayy Marquez MANUAL DIFF REQ NO Normal [facility] Comment on above: Performed By: #### C VDAGS #### [facility] [address] [place] [address] Dr. Jayy Marquez MCH (RBC) [Entitic mass] 31.5 pg Normal 26.7-34.0 [facility] Comment on above: Performed By: #### C VDAGS #### [facility] [address] [place] [address] Dr. Jayy Marquez MCHC (RBC) [Mass/Vol] 31.7 g/dL Normal 29.9-35.2 [facility] Comment on above: Performed By: #### C VDAGS #### [facility] [address] [place] [address] Dr. Jayy Marquez MCV (RBC) [Entitic vol] 99.4 fL Critically high 81.0-99.0 [facility] Comment on above: Performed By: #### C VDAGS #### [facility] [address] [place] [address] Dr. Jayy Marquez MONO # 0.8 103/ul Normal 0.3-0.8 [facility] Comment on above: Performed By: #### C VDAGS #### [facility] [address] [place] [address] Dr. Jayy Marquez Monocytes/100 WBC (Bld) 12.4 % Critically high 1.7-12.0 [facility] Comment on above: Performed By: #### C VDAGS #### [facility] [address] [place] [address] Dr. Jayy Marquez NEUT # 3.6 103/ul Normal 1.4-6.5 [facility] Comment on above: Performed By: #### C VDAGS #### [facility] [address] [place] [address] Dr. Jayy Marquez Neutrophils/100 WBC (Bld) 58.1 % Normal 43.0-75.0 [facility] Comment on above: Performed By: #### C VDAGS #### [facility] [address] [place] [address] Dr. Jayy Marquez Platelet mean volume (Bld) [Entitic vol] 10.1 fL Normal 9.5-13.5 [facility] Comment on above: Performed By: #### C VDAGS #### [facility] [address] [place] [address] Dr. Jayy Marquez PLT 234 103/ul Normal 150-450 [facility] Comment on above: Performed By: #### C VDAGS #### [facility] [address] [place] [address] Dr. Jayy Marquez RBC 4.92 106/ul Normal 4.20-5.40 [facility] Comment on above: Performed By: #### C VDAGS #### [facility] [address] [place] [address] Dr. Jayy Marquez WBC 6.2 103/ul Normal 4.0-11.0 [facility] Comment on above: Performed By: #### C VDAGS #### [facility] [address] [place] [address] Dr. Jayy Marquez FREE T3on 10-30-2021 FREE T3 2.73 pg/mlL Normal 2.18-3.98 [facility] Comment on above: Performed By: #### C VDAGS #### [facility] [address] [place] [address] Dr. Jayy Marquez FREE T4on 10-30-2021 Free T4 [Mass/Vol] 1.25 ng/dL Normal 0.76-1.46 [facility] Comment on above: Performed By: #### F T4 #### [facility] [address] [place] [address] Dr. Jayy Marquez PROF CHEM 8 (BAS METB)on Anion gap [Moles/Vol] 8.8 mmol/L Normal [facility] Comment on above: Performed By: #### C VDAGS #### [facility] [address] [place] [address] Dr. Jayy Marquez Calcium [Mass/Vol] 9.4 mg/dL Normal 8.5-10.1 [facility] Comment on above: Performed By: #### C VDAGS #### [facility] [address] [place] [address] Dr. Jayy Marquez Chloride [Moles/Vol] 104 mmol/L Normal 98-107 [facility] Comment on above: Performed By: #### C VDAGS #### [facility] [address] [place] [address] Dr. Jayy Marquez CO2 [Moles/Vol] 29.4 mmol/L Normal 21.0-32.0 [facility] Comment on above: Performed By: #### C VDAGS #### [facility] [address] [place] [address] Dr. Jayy Marquez Creatinine [Mass/Vol] 0.74 mg/dL Normal 0.55-1.02 [facility] Comment on above: Performed By: #### C VDAGS #### [facility] [address] [place] [address] Dr. Jayy Marquez EGFR-AF NORWEGIAN >60 Normal >=60 [facility] Comment on above: Performed By: #### C VDAGS #### [facility] [address] [address] [address] Jayy Marquez EGFR-NON AF NORWEGIAN >60 Normal >=60 [facility] Comment on above: Performed By: #### C VDAGS #### [facility] [address] [address] [address] Jayy Marquez Glucose [Mass/Vol] 108 mg/dL Critically high 74-106 [facility] Comment on above: Performed By: #### C VDAGS #### [facility] [address] [address] [address] Jayy Marquez Potassium [Moles/Vol] 4.2 mmol/L Normal 3.5-5.1 [facility] Comment on above: Performed By: #### C VDAGS #### [facility] [address] [address] [address] Jayy Marquez Sodium [Moles/Vol] 138 mmol/L Normal 136-145 [facility] Comment on above: Performed By: #### C VDAGS #### [facility] [address] [place] [address] Dr. Jayy Marquez Urea nitrogen [Mass/Vol] 16.0 mg/dL Normal 7.0-18.0 [facility] Comment on above: Performed By: #### C VDAGS #### [facility] [address] [place] [address] Dr. Jayy Marquez Urea nitrogen/Creatinine [Mass ratio] 21.6 mg/mg Normal [facility] Comment on above: Performed By: #### C VDAGS #### [facility] [address] [address] [address] Jayy Dupree 10-30-2021 AST [Catalytic activity/Vol] 11 U/L Critically low 15-37 [facility] Comment on above: Performed By: #### B MP #### [facility] [address] [address] [address] Jayy Stringer 07-07-2022 ALT [Catalytic activity/Vol] 22 U/L Normal 14-59 [facility] Comment on above: Performed By: #### C VDAGS #### [facility] [address] [place], [place] [address] Dr. Jayy Marquez TSHon 10-30-2021 TSH 1.593 uIU/mL Normal 0.358-3.740 [facility] Comment on above: Performed By: #### B MP #### [facility] [address] [place], [place] [address] LUNG SCREENING (ANNUAL)on 09-26-2019 Patient Name: AKIL CHACON ---CT--- Exam Date/Time 09/26/2019 10:55:[address] Low Dose Lung Scrn Ordering Physician RAVINDRA THURMAN TAMMY KAY Accession Number [id number] CPT4 Codes G0297 (CT Low Dose Lung [...] ROBERT Transcribed Date and Time: 09/26/2019 1:18 [facility]- [place], [place] Oct[facility], [facility] Incoming Radiology Results From [facility] - 09/26/2019 1:28 PM EDT Patient Name: AKIL CHACON ---CT--- Exam Date/Time 09/26/2019 10:55:[address] Low Dose Lung Scrn Ordering Physician RAVINDRA THURMAN, SHELBI PERAL Accession Number [id number] CPT4 Codes G0297 (CT Low Dose Lung [...] ROBERT Transcribed Date and Time: 09/26/2019 1:18 [place], [place] CT Low Dose Lung Screeningon 09-26-2019 CT Low Dose Lung Screening Patient Name: AKIL CHACON CT Exam Date/Time 09/26/2019 10:55:[address] Low Dose Lung Scrn Ordering Physician RAVINDRA THURMAN TAMMY KAY Accession Number [id number] CPT4 Codes G0297 (CT Low Dose Lung [...] Transcribed Date and Time: 09/26/2019 1:18 Normal [facility] OBSOLETEon 11-13-2016 OBSOLETE Refill (ENDMED) ----AKIL CHACON ([id number]) 1955 [facility] Time Provider Department11/13/16 CHARLOTTE RATLIFF [...] by MADELEINE ARIAS MA on 11/16/16 Normal [facility] Colonoscopy w/ or w/o biopsy on 01-12-2013 Colon polyps Internal hemorrhoids Normal appearing terminal ileum and colonic mucosa, s/p random biopsies [facility] This order was created through External Result Entry [facility] Vital Signs Date Time Vital Sign Value Performing Clinician Facility 04-27-2024 11:07-0500 Body height 162.6 cm Barbie Dhaliwal ACCOUNTING ASSOCIATE Work Phone: [facility] 04-27-2024 11:07-0500 Body mass index (BMI) [Ratio] 30.55 kg/m2 Barbie Dhaliwal ACCOUNTING ASSOCIATE Work Phone: [facility] 04-27-2024 11:07-0500 Body temperature 97.81 [degF] Barbie Dhaliwal ACCOUNTING ASSOCIATE Work Phone: [facility] 04-27-2024 11:07-0500 Body weight 80.74 kg Barbie Dhaliwal ACCOUNTING ASSOCIATE Work Phone: [facility] 04-27-2024 11:07-0500 Diastolic blood pressure 62 mm[Hg] Barbie Dhaliwal ACCOUNTING ASSOCIATE Work Phone: [facility] 04-27-2024 11:07-0500 Heart rate 74 /min Barbie Dhaliwal ACCOUNTING ASSOCIATE Work Phone: [facility] 04-27-2024 11:07-0500 Respiratory rate 16 /min Barbie Dhaliwal ACCOUNTING ASSOCIATE Work Phone: [facility] 04-27-2024 11:07-0500 SaO2% (BldA) [Mass fraction] 97 % Barbie Isra ACCOUNTING ASSOCIATE Work Phone: [facility] 04-27-2024 11:07-0500 Systolic blood pressure 110 mm[Hg] Barbie Vegasalexandra ACCOUNTING ASSOCIATE Work Phone: [facility] 03-28-2024 11:16-0500 Body height 162.6 cm Antonio Hopkins MD Work Phone: [facility] 03-28-2024 11:16-0500 Body mass index (BMI) [Ratio] 31.07 kg/m2 Antonio Hopkins MD Work Phone: [facility] 03-28-2024 11:16-0500 Body temperature 97.11 [degF] Antonio Hopkins MD Work Phone: [facility] 03-28-2024 11:16-0500 Body weight 82.1 kg Antonio Hopkins MD Work Phone: [facility] 03-28-2024 11:16-0500 Diastolic blood pressure 60 mm[Hg] Antonio Hopkins MD Work Phone: [facility] 03-28-2024 11:16-0500 Heart rate 71 /min Antonio Hopkins MD Work Phone: [facility] 03-28-2024 11:16-0500 Respiratory rate 22 /min Antonio Hopkins MD Work Phone: [facility] 03-28-2024 11:16-0500 SaO2% (BldA) [Mass fraction] 97 % Antonio Hopkins MD Work Phone: [facility] 03-28-2024 11:16-0500 Systolic blood pressure 116 mm[Hg] Antonio Hopkins MD Work Phone: [facility] 04-21-2023 14:10-0500 Blood Pressure Location Kale HANNA [facility] 04-21-2023 14:10-0500 Diastolic blood pressure 78 mm[Hg] Kale HANNA [facility] 04-21-2023 14:10-0500 Heart rate 72 /min Kale HANNA [facility] 04-21-2023 14:10-0500 Respiratory rate 16 /min Kale HANNA [facility] 04-21-2023 14:10-0500 Systolic blood pressure 128 mm[Hg] Kale HANNA [facility] Encounters Encounter Date Encounter Type Care Provider Facility Start: 04-27-2024 End: 04-27-2024 Transitional care manage srvc 14 day discharge Barbie Dhaliwal NP Work Phone: [facility] Comment on above: COPD with acute exac erbation (CMS/HCC) (Primary Dx); Centrilobular emphysema (CMS/HCC); HTN (hypertension), benign (CMS/HCC); Postoperative hypothyroidism (CMS/HCC); Encounter for screening mammogram for malignant neoplasm of breast; Prediabetes; Osteopenia, unspecified location; Menopause; Tobacco user Start: 04-27-2024 End: 04-27-2024 ambulatory BARBIE DHALIWAL Not Available Start: 03-28-2024 End: 03-28-2024 Bamboo flowsheet Antonio [...] Dx) Start: 03-28-2024 End: 03-28-2024 ambulatory ANTONIO NADERER Not Available Start: 01-31-2024 End: 01-31-2024 Clinisync Result Encounter Generic External Data Provider [facility] External Department Unsolicited Start: 01-31-2024 End: 01-31-2024 Clinisync Result Encounter Generic External Data Provider [facility] External Department Unsolicited Start: 09-27-2023 End: 09-27-2023 ambulatory ANTONIO HOPKINS Not Available Start: 06-04-2023 End: 06-05-2023 ambulatory [facility] Start: 05-12-2023 End: 05-12-2023 ambulatory Kale R Nill Facility:[facility] Start: 05-12-2023 End: 05-13-2023 ambulatory Kale R NILL [facility] Work Phone: Start: 05-12-2023 End: 05-12-2023 Departed Referred MD Kale Hanna Work Phone: [facility] Start: 04-21-2023 End: 04-22-2023 ambulatory Kale R NILL Facility:[facility] Start: 04-21-2023 End: 04-21-2023 Patient encounter procedure Kale R NILL [facility] N[facility] Start: 04-02-2023 ambulatory Kale NILL Facility:[facility] Start: 09-22-2022 Evaluation and manag ement of inpatient DR DAYAMI FULLER . Facility:[facility] Start: 09-01-2022 End: 09-02-[address] HANDY KEATING Facility:[facility] Start: 03-23-2022 End: 03-23-2022 ambulatory ALIS SONIDO . Facility:[facility] Start: 03-23-2022 Encounter for preprocedural cardiovascular examination ALIS RAMACHANDRAN . [facility] Start: 03-23-2022 Encounter for preprocedural laboratory examination ALISCONY HEAD . [facility] Start: 03-17-2022 End: 03-18-2022 ambulatory ALIS SONIDO . Facility:[facility] Start: 03-17-2022 End: 03-18-2022 Encounter for preprocedural laboratory examination ALIS HEAD . Facility:[facility] Start: 03-04-2022 End: 03-05-[address] HANDY KEATING Facility:[facility] Start: 10-30-2021 End: 10-31-[address] ANTONIO HOPKINS Facility:[facility] Start: 09-26-2019 End: 09-26-2019 Subsequent hospital visit by physician Shelbi Thurman Work Phone: [facility] Comment on above: Cigarette nicotine d ependence with nicotine-induced disorder Start: 09-08-2018 Patient encounter procedure Lupillomaxwell Smithauirena [facility] Start: 04-04-2018 Patient encounter procedure Eddi Diaz [facility] Start: 03-08-2018 Patient encounter procedure MONICA NGAFA [facility] Start: 03-07-[address] [facility] Start: 02-22-2018 Patient encounter procedure Ottoniel Fuchs [facility] Start: 09-14-2017 [facility] Start: 08-14-2017 Emergency department patient visit MARTIN DOZIER [facility] Start: 08-13-2017 Patient encounter procedure Ottoniel Fuchs [facility] Start: 01-12-2013 Conversion Encounter Ottoniel jackson MD Work Phone: [facility] Start: 01-12-2013 Legacy Encounter Ottoniel osborn MD Work Phone: [facility] Procedures Date Procedure Procedure Detail Performing Clinician Start: 01-31-2024 ALL HEMOGLOBIN Generic External Data Provider Start: 06-24-2023 Mammography Generic Pr ovider Start: 05-12-2023 Colonoscopy Generic Pr ovider Start: 09-26-2019 Ldct for lung ca screen Shelbi Thurman Work Phone: Start: 01-12-2013 COLONOSCOPY W/ OR W/ O BIOPSY Ottoniel Fuchs MD Work Phone: Bronchoscopy Kale HANNA section Kale Reynoso Colonoscopy Kale HANNA Extraction of cataract [place] Laparoscopy [place] Ligation of fallopian tube Cammy HANNA Thyroidectomy Kale HANNA Plan of Treatment Date Care Activity Detail Author Start: 05-12-2033 Screening for malign ant neoplasm of colon [facility] Start: 12-24-2025 DTaP/Tdap/Td vaccine (2 - Td) DTaP/Tdap/Td vaccine (2 - Td) [place], [place] Start: 03-28-2025 Medicare Annual Well ness (AWV) Medicare Annual Wellness (AWV) [facility] Start: 09-26-2024 End: 09-26-2024 Patient encounter procedure 09/26/2024 1:00 PM EDT Office Visit [facility] [address] [place] [address] Antonio Hopkins MD [address] [place] [id number] [facility] Start: 06-24-2024 End: 04-27-2025 DXA Skeletal system Views for bone density DEXA bone density Imaging Routine Osteopenia, unspecified location Menopause Expected: 06/24/2024 (Approximate), Expires: 04/27/2025 [facility] Comment on above: Expected: 06/24/2024 (Approximate), Expires: 04/27/2025 Start: 06-24-2024 End: 06-25-2025 MG Breast - bilateral Screening Bilateral screening mammogram Imaging Routine Encounter for screening mammogram for malignant neoplasm of breast Expected: 06/24/2024 (Approximate), Expires: 06/25/2025 [facility] Work Phone: Comment on above: Expected: 06/24/2024 (Approximate), Expires: 06/25/2025 Start: 06-23-2024 Screening for malign ant neoplasm of breast Mammogram [facility] Start: 04-27-2024 End: 04-27-2025 25-hydroxyvitamin D3 [Mass/volume] in Serum or Plasma Vitamin D 25 hydroxy Lab Routine Osteopenia, unspecified location Expected: 04/27/2024 (Approximate), Expires: 04/27/2025 [facility] Comment on above: Expected: 04/27/2024 (Approximate), Expires: 04/27/2025 Start: 04-27-2024 End: 04-27-2025 CBC W Auto Differential panel - Blood CBC and differential Lab Routine Centrilobular emphysema (CMS/HCC) Expected: 04/27/2024 (Approximate), Expires: 04/27/2025 [facility] Comment on above: Expected: 04/27/2024 (Approximate), Expires: 04/27/2025 Start: 04-27-2024 End: 04-27-2025 Comprehensive metabolic 2000 panel - Serum or Plasma Comprehensive metabolic panel Lab Routine Centrilobular emphysema (CMS/HCC) HTN (hypertension), benign (CMS/HCC) Prediabetes Osteopenia, unspecified location Expected: 04/27/2024 (Approximate), Expires: 04/27/2025 [facility] Comment on above: Expected: 04/27/2024 (Approximate), Expires: 04/27/2025 Start: 04-27-2024 End: 04-27-2025 Hemoglobin A1c/Hemoglobin.total in Blood Hemoglobin A1c Lab Routine Prediabetes Expected: 04/27/2024 (Approximate), Expires: 04/27/2025 [facility] Comment on above: Expected: 04/27/2024 (Approximate), Expires: 04/27/2025 Start: 04-27-2024 End: 04-27-2025 Lipid 1996 panel - Serum or Plasma Lipid panel Lab Routine Prediabetes Expected: 04/27/2024 (Approximate), Expires: 04/27/2025 [facility] Comment on above: Expected: 04/27/2024 (Approximate), Expires: 04/27/2025 Start: 04-27-2024 End: 04-27-2025 Microalbumin/Creatinine panel in random Urine Microalbumin / creatinine, urine ratio Lab Routine HTN (hypertension), benign (CMS/HCC) Prediabetes Expected: 04/27/2024 (Approximate), Expires: 04/27/2025 [facility] Comment on above: Expected: 04/27/2024 (Approximate), Expires: 04/27/2025 Start: 04-27-2024 End: 04-27-2025 Urinalysis complete panel - Urine Urinalysis with reflex microscopic (clean catch) Lab Routine HTN (hypertension), benign (CMS/HCC) Prediabetes Expected: 04/27/2024 (Approximate), Expires: 04/27/2025 [facility] Comment on above: Expected: 04/27/2024 (Approximate), Expires: 04/27/2025 Start: 03-28-2024 End: 03-28-2024 Patient encounter procedure [facility] Comment on above: Arrived Start: 12-30-2023 Lipid panel Lipid screen [place], [place] Start: 12-26-2023 Influenza vaccination Influenza Vacc ine (#1) [facility] Start: 02-11-2023 Screening for malign ant neoplasm of cervix Cervical cancer screen [place], [place] Start: 01-12-2023 Screening for malign ant neoplasm of colon Colon cancer screen colonoscopy [place], [place] Start: 02-23-2020 Screening for malign ant neoplasm of breast Breast cancer screen [place], [place] Start: 02-13-2020 Pneumococcal 65+ yea rs Vaccine (1 of 1 - PPSV23) Pneumococcal 65+ years Vaccine (1 of 1 - PPSV23) [place], [place] Start: 02-08-2020 End: 02-08-2020 Office Visit 02/08/2020 Office Visit Family Medicine Ottoniel Fuchs MD [address] [place] [address] [employer] [facility] Start: 12-30-2019 Creatinine measurement Creatinine mo nitoring [place], [place] Start: 12-30-2019 HbA1c (Bld) [Mass fraction] A1C test (Diabetic or Prediabetic) [place], [place] Start: 12-30-2019 Potassium monitoring Potassium monit oring [place], [place] Start: 12-30-2019 TSH Qn TSH testing [place], [place] Start: 09-09-2019 Screening for malign ant neoplasm of lung Low dose CT lung screening [place], [place] Start: 08-09-2019 Annual Wellness Visi t (AWV) Annual Wellness Visit (AWV) [place], [place] Start: 02-11-2019 Medicare Annual Well ness (AWV) Medicare Annual Wellness (AWV) [facility] Start: 1955 Screening for malign ant neoplasm of colon [facility] Immunizations Immunization Date Immunization Notes Care Provider Fa monikajosue 03-08-2023 influenza virus vacc ine, unspecified formulation Kale ISIS [facility] 02-04-2021 SARS-CoV-2 (COVID-19 ) Ad26 vaccine, recombinant [facility]ale [facility] Comment on above: Result Comment: 2022: [id number] 03-30-2019 Seasonal, quadrivale nt, recombinant, injectable influenza vaccine, preservative free [facility], [place] 12-29-2018 zoster vaccine recombinant [facility] 02-11-2018 influenza virus vacc ine, unspecified formulation [facility] , [place] 02-11-2018 influenza, injectabl e, quadrivalent, contains preservative [facility] 02-11-2018 zoster vaccine recombinant [facility] 12-25-2015 tetanus toxoid, redu florentino diphtheria toxoid, and acellular pertussis vaccine, adsorbed [facility] 02-12-2015 pneumococcal polysaccharide vaccine, 23 valent [facility], [place] 02-12-2015 zoster vaccine, [place] Payers Date Payer Category Payer Self-pay 2023 Medicare AN[employer]M MEDICARE ADVANTAGE RAMBO MEDICARE ADVANTAGE [id number] 2023-Present [address] [place] [address] [id number] 2023 Medicare (Managed Care) JAYCEE PRIYANKA ADVANTAGE [id number] 2023 Unknown [id number] 2019 Medicare MEDICARE MEDICAR E PART A AND B xxxxxxxxxxx 2019-Present [phone] [address] [address] [place] [address] xxxxxxxxxxx [id number] 2019 Private Health Insurance [employer] [facility] MEDICARE SUPP xxxxxxxxxx 2019-Present [phone] [address] [place] [address] xxxxxxxxxx [id number] 1960 Unknown [id number] 2.840.1.048687.3.579.2 .1960 Unknown [id number] 2.840.1.934307.3.579.2 .1959 Medicare [id number] 1959 Private Health Insurance CLI [id number] 1954 Unknown [id number] 2.16840.1.669475.3.579.2 1954 Unknown [id number] 2.16840.1.981612.3.579.2 1954 Unknown [id number] 2.16.840.1.238099.3.579.2 .1954 Unknown [id number] 2.16840.1.471463.3.579.2 .668 1954 Unknown [id number] 2.16.840.1.592524.3.579.2 .668 1954 Unknown [id number] 2.16.840.1.571450.3.579.2 .668 1954 Unknown [id number] 2.16.840.1.963806.3.579.2 .668 1954 Unknown [id number] 2.16.840.1.782703.3.579.2 .593 1954 Unknown [id number] 2.16.840.1.321657.3.579.2 .593 1954 Unknown [id number] 2.840.1.207717.3.579.2 .593 1954 Unknown [id number] 2.840.1.720904.3.579.2 .593 1954 Unknown [id number] 2.16840.1.565708.3.579.2 .593 1954 Unknown [id number] 2.840.1.341239.3.579.2 .593 1954 Unknown [id number] 2.16.840.1.961060.3.579.2 .727 1954 Unknown [id number] 2.840.1.573164.3.579.2 .727 1954 Unknown [id number] 2.16.840.1.449756.3.579.2 .727 1954 Unknown [id number] 2.16.840.1.121924.3.579.2 .1259 1954 Unknown [id number] 2.16.840.1.334355.3.579.2 .1259 1954 Unknown [id number] 2.16840.1.223770.3.579.2 .1259 Unknown Social History Date Type Detail Facility Start: 08-02-1971 Tobacco smoking status NHIS Current every day smoker [place], [place] Start: 08-02-1971 End: 09-24-2022 History of tobacco use Cigarette Smoker [place] Start: 08-09-2019 End: 09-26-2023 Cigarettes smoked current (pack per day) - Reported [facility] Start: 08-09-2019 Alcohol intake Current drinker of alcohol (finding) [place] Start: 12-29-2018 History SDOH Alcohol Frequency 4 [place] Start: 12-29-2018 History SDOH Alcohol Std Drinks 1 [place] Start: 12-29-2018 History SDOH Social Connections Get Together 2 [place] Start: 12-29-2018 History SDOH Social Connections Living 3 [place] Start: 12-29-2018 History SDOH Physical Activity DPW 0 [place] Start: 12-29-2018 History SDOH Financial 5 [place] Start: 08-16-2017 Tobacco Comment Less than a pack a day [place] Start: 08-16-2017 Alcohol Comment Occasionally [place] Start: 1955 Sex Assigned At Not on file [place] [facility] Start: 09-26-2023 End: 03-28-2024 Gender identity Not on file [facility] Start: 04-21-2023 End: 09-27-2023 Tobacco smoking status Ex-smoker (finding) [facility] Tobacco smoking status Never [facility] Start: 1955 Sex Assigned At Female [facility] Start: 09-24-1972 End: 09-24-2022 History of tobacco use Current smoker [facility] Start: 09-27-2023 Tobacco use and exposure Smokeless tobacco non-user [facility] Do you belong to any clubs or organizations such as druze groups, unions, fraternal or athletic groups, or [...] leandro Nam History of Present illness Narrative 04-27-2024 Barbie Dhaliwal NP - 04/27/2024 11:29 AM Lynda Dhaliwal NP - 04/27/2024 11:28 AM Lynda Dhaliwal NP - 04/27/2024 11:00 AM Lynda Dhaliwal NP - 04/27/2024 6:49 AM EST Note Date & Type Note Facility 04-27-2024 History of Presen t illness Narrative Associated Problem(s): Tobacco user The patient has been advised of the risks of continued smoking: stroke, DE, all forms of cancer, lung disease, and . Options for quitting smoking include: cold turkey, hypnosis, acupuncture, nicotine replacement meds (gum, lozenges, and patches), Buproprion, and Varenicline. At this time pt is encouraged to evaluate their goals for wanting to quit smoking, and reach out to provider when ready to start this process Stressors tend to be her trigger Associated Problem(s): COPD with acute exacerbation ([facility]) Recent hospitalization about 2 weeks ago Is feeling much better Continue inhalers, cont with dr head Goal of smoking cessation Images from the original note were not included. Akil Chacon is a 68 y.o. female presents with chief complaint of No chief complaint on file. HPI: Here for a hospital fu for exac COPD Reviewed [facility] notes Feeling better, no fever, chills, and minimal dyspnea or wheeze. White-light green sputum 1 more day of prednisone left Does follow w dr head as well Hypertension This is a chronic problem. The current episode started more than 1 year ago. The problem is unchanged. The problem is controlled. Associated symptoms include shortness of breath. Pertinent negatives include no blurred vision, chest pain, headaches, palpitations or peripheral edema. There are no associated agents to hypertension. Risk factors for coronary artery disease include obesity and smoking/tobacco exposure. Past treatments include calcium channel blockers and angiotensin blockers. The current treatment provides significant improvement. There are no compliance problems. SUBJECTIVE: MEDICATIONS: Current Outpatient Medications Medication Instructions albuterol HFA 90 mcg/act inhaler 2 puffs, Inhalation, Every 4 hours PRN amLODIPine (NORVASC) 5 mg, Oral, Daily aspirin 81 mg, Daily fluticasone (Flonase) 50 MCG/ACT nasal spray 2 sprays, Daily Sspeftmbhbl-Ioxhnaibb-Ccxcin (Trelegy Ellipta) 100-62.5-25 MCG/ACT aerosol powder Inhale levothyroxine (SYNTHROID, LEVOXYL) 112 mcg, Oral, Daily before breakfast losartan (COZAAR) 50 mg, Oral, Daily Multiple Vitamin (MULTI-DAY PO) Take by mouth predniSONE (Deltasone) 20 MG tablet TAKE 3 TABLETS BY MOUTH ONCE DAILY FOR 3 DAYS, THEN TAKE 2 TABLETS ONCE DAILY FOR 3 DAYS, THEN TAKE 1 TABLET ONCE DAILY FOR 3 DAYS, THEN TAKE 1/2 (ONE-HALF) OF A TABLET ONCE DAILY FOR 4 DAYS sodium chloride 0.9 % nebulizer solution 3 mL, As needed ALLERGIES: No Known Allergies REVIEW OF SYMPTOMS: Review of Systems Constitutional: Negative for appetite change, chills and fever. HENT: Negative for congestion, ear pain and sore throat. Eyes: Negative for blurred vision, pain, discharge, redness and visual disturbance. Respiratory: Positive for cough, shortness of breath and wheezing. Cardiovascular: Negative for chest pain, palpitations and leg swelling. Gastrointestinal: Negative for abdominal pain, blood in stool, constipation, diarrhea, nausea and vomiting. Genitourinary: Negative for difficulty urinating, dysuria and frequency. Musculoskeletal: Negative for arthralgias, back pain, joint swelling and myalgias. Skin: Negative for rash and wound. Neurological: Negative for dizziness, tremors, seizures, syncope and headaches. Psychiatric/Behavioral: Negative for behavioral problems, self-injury and suicidal ideas. The patient is not nervous/anxious. Hematological: Does not bruise/bleed easily. Endocrine: Negative for polydipsia, polyphagia and polyuria. Allergic/Immunologic: Negative for environmental allergies and food allergies. PAST MEDICAL HISTORY Past Medical History: Diagnosis Date Acute sinusitis, recurrence not specified, unspecified location Benign essential hypertension (CMS/HCC) Bronchiectasis without complication (CMS/HCC) Centrilobular emphysema (CMS/HCC) Chronic respiratory failure with hypoxia (CMS/HCC) Chronic sinusitis, unspecified location Cigarette nicotine dependence with nicotine-induced disorder Hypothyroidism (CMS/HCC) Multiple pulmonary nodules Overweight Steroid-induced hyperglycemia Past Surgical History: Procedure Laterality Date BRONCHOSCOPY 04/04/2018 BRONCHOSCOPY 03/23/2022 CATARACT EXTRACTION Bilateral SECTION, LOW TRANSVERSE SECTION, LOW TRANSVERSE THYROIDECTOMY TUBAL LIGATION family history includes Cancer in her brother and mother; Cervical cancer in her mother; Coronary artery disease in her mother; Diabetes in her maternal grandmother and mother; Emphysema in her mother; Heart disease in her father and mother; Hypertension in her father; Lung cancer in her brother. OBJECTIVE: Visit Vitals BP 110/62 Pulse 74 Temp 97.8 F Resp 16 Ht 5' 4 Wt 178 lb SpO2 97% BMI 30.55 kg/m Smoking Status Former BSA 1.91 m Physical Exam Vitals and nursing note reviewed. Constitutional: General: She is not in acute distress. Appearance: Normal appearance. She is not ill-appearing. HENT: Head: Normocephalic and atraumatic. Right Ear: Tympanic membrane, ear canal and external ear normal. Left Ear: Tympanic membrane, ear canal and external ear normal. Nose: Nose normal. No congestion or rhinorrhea. Mouth/Throat: Mouth: Mucous membranes are moist. Pharynx: No oropharyngeal exudate or posterior oropharyngeal erythema. Eyes: Extraocular Movements: Extraocular movements intact. Conjunctiva/sclera: Conjunctivae normal. Neck: Vascular: No carotid bruit. Cardiovascular: Rate and Rhythm: Normal rate and regular rhythm. Pulses: Normal pulses. Heart sounds: Normal heart sounds. Pulmonary: Effort: Pulmonary effort is normal. No respiratory distress. Breath sounds: No wheezing. Comments: Diminished lung sounds Abdominal: General: Bowel sounds are normal. There is no distension. Palpations: Abdomen is soft. There is no mass. Tenderness: There is no abdominal tenderness. Musculoskeletal: General: Normal range of motion. Cervical back: Normal range of motion and neck supple. Right lower leg: No edema. Left lower leg: No edema. Lymphadenopathy: Cervical: No cervical adenopathy. Skin: General: Skin is warm and dry. Capillary Refill: Capillary refill takes 2 to 3 seconds. Findings: No rash. Neurological: General: No focal deficit present. Mental Status: She is alert and oriented to person, place, and time. Psychiatric: Mood and Affect: Mood normal. Behavior: Behavior normal. Thought Content: Thought content normal. Judgment: Judgment normal. ASSESSMENT AND PLAN: No follow-ups on file. Problem List Items Addressed This Visit HTN (hypertension), benign (CMS/HCC) - Primary Please check blood pressure daily and record DASH diet Limit caffeine Take medication as directed Contact office if chest pain, pressure, dizziness, shortness of breath, swelling legs Recommend slow position changes Current meds: losartan, asa, amlodipine Relevant Orders Urinalysis with reflex microscopic (clean catch) Microalbumin / creatinine, urine ratio Comprehensive metabolic panel Osteopenia Relevant Orders Comprehensive metabolic panel Vitamin D 25 hydroxy DEXA bone density Postoperative hypothyroidism (CMS/HCC) Currently taking levothyroxine Check labs yearly, prn dose changes, or changes in symptoms Prediabetes Relevant Orders Urinalysis with reflex microscopic (clean catch) Microalbumin / creatinine, urine ratio Lipid panel Comprehensive metabolic panel Hemoglobin A1c Centrilobular emphysema (CMS/HCC) Recent hospitalization for hypoxia Does follow with dr head Current meds: trelegy, albuterol prn, flonase, Is currently on steroids Feeling much better Relevant Orders Comprehensive metabolic panel CBC and differential Encounter for screening mammogram for malignant neoplasm of breast Relevant Orders Bilateral screening mammogram Menopause Relevant Orders DEXA bone density COPD with acute exacerbation (CMS/HCC) Recent hospitalization about 2 weeks ago Is feeling much better Continue inhalers, cont with dr head Goal of smoking cessation Tobacco user The patient has been advised of the risks of continued smoking: stroke, DE, all forms of cancer, lung disease, and . Options for quitting smoking include: cold turkey, hypnosis, acupuncture, nicotine replacement meds (gum, lozenges, and patches), Buproprion, and Varenicline. At this time pt is encouraged to evaluate their goals for wanting to quit smoking, and reach out to provider when ready to start this process Stressors tend to be her trigger Associated Problem(s): Postoperative hypothyroidism (CMS/HCC) Currently taking levothyroxine Check labs yearly, prn dose changes, or changes in symptoms Associated Problem(s): HTN (hypertension), benign (CMS/HCC) Please check blood pressure daily and record DASH diet Limit caffeine Take medication as directed Contact office if chest pain, pressure, dizziness, shortness of breath, swelling legs Recommend slow position changes Current meds: losartan, asa, amlodipine Associated Problem(s): Centrilobular emphysema (CMS/HCC) Recent hospitalization for hypoxia Does follow with dr head Current meds: trelegy, albuterol prn, flonase, Is currently on steroids Feeling much better documented in this encounter [facility] Healthcare Instructions 04-27-2024 Patient Instructions Note Date & Type Note Facility 04-27-2024 Instructions Barbie Dhaliwal NP - 04/27/2024 11:00 AM EST Mammogram and bone density : late May early June, [facility] should call, , ext [phone] Labs mid 06/20 documented in this encounter [facility] History of Present illness Narrative 03-28-2024 Antonio Hopkins MD - 03/28/2024 12:11 PM Byron Hopkins MD - 03/28/2024 11:00 AM EST [...] daily Aspirin therapy. documented in this encounter [facility] Clinical Note 04-21-2023 Note Date & Type Note Facility 04-21-2023 Note Chief Complaint consultation for screening colonoscopy [facility] [employer] Staff 67 year old female presents on [...] 1 puff(s), Inhalation, Daily Flonase 0.05 mg/inh Anderson, 100 mcg, Nasal, Daily levothyroxine 112 mcg [...] of lung: Brother. (more content not included)... [facility] Comment on above: Result Comment: Elec tronically Signed By: ISIS ALCANTAR, Kale Gonzalez\.[place]\Date and Time Signed: 04/21/23 14:46 EST Evaluation + Plan note Note Date & Type Note Facility Evaluation + Plan note No data available for this section [facility] Evaluation note Note Date & Type Note Facility Evaluation note [facility]: Evaluation note Note [...] visit, subsequent- Primary documented in this encounter [facility] Healthcare Evaluation note Note Date & Type Note [...] (CMS/HCC) Medicare annual wellness visit, subsequent- Primary COPD with acute exacerbation (CMS/HCC)- Primary Centrilobular emphysema (CMS/HCC) HTN (hypertension), benign (CMS/HCC) Essential hypertension, benign Postoperative hypothyroidism (CMS/HCC) Postsurgical hypothyroidism Encounter for screening mammogram for malignant neoplasm of breast Prediabetes Other abnormal glucose Osteopenia, unspecified location Menopause Symptomatic menopausal or female climacteric states Tobacco user Tobacco use disorder documented in this encounter [facility] Hospital Discharge instructions Note Date & Type Note Facility Hospital Discharge instructions No data available for this section [facility] Progress note Note Date & Type Note Facility Progress note No data available for this section [facility] Summary Purpose Family History No Family History Records FoundNo Family History Records FoundNo Family History Records FoundNo Family History Records FoundNo Family History Records Found No data available for this section No Family History Records FoundNo Family History Records FoundNo Family History Records Found Advance Directives No Advanced Directives Records FoundDocuments on File Type Date 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 [place] [id number] Assessments Diagnosis Cigarette nicotine dependence with nicotine-induced disorder Unspecified drug-induced mental disorder Additional Source Comments INFORMATION SOURCE (unrecogn ized section and content) DATE CREATED AUTHOR 10/20/2017 [facility] DATE CREATED AUTHOR AUTHOR'S ORGANIZ ATION 04/04/2018 [facility] DATE CREATED AUTHOR AUTHOR'S ORGANIZ ATION 04/09/2018 [facility] DATE CREATED AUTHOR AUTHOR'S ORGANIZ ATION 09/26/2019 [facility] DATE CREATED AUTHOR AUTHOR'S ORGANIZ ATION 10/02/2022 [facility] DATE CREATED AUTHOR AUTHOR'S ORGANIZ ATION 06/15/2023 [facility] DATE CREATED AUTHOR AUTHOR'S ORGANIZ ATION 06/15/2023 [facility] DATE CREATED AUTHOR AUTHOR'S ORGANIZ ATION 05/04/2024 [facility] dical Specialists EPIC Care Teams (unrecognized sec tion and content) Communications Electrician Supervisor Relationship Specialty Start Date End Date Ottoniel Fuchs MD [address] [place] [address] [address] [place] [address] PCP - General 12/21/13 Team Status: Inactive Member Role Status Dates Kale Hanna MD FACS Attending Provider Active Start: May 12, 2023 End: May 12, 2023 Communications Electrician Supervisor Relationship Specialty Start Date End Date Antonio Hopkins MD [address] [place] [address] PCP - General Family Medicine 10/21/22 Antonio Hopkins MD [address] [place] [phone] PCP - Jaycee DAVIS 11/25/23 Communications Electrician Supervisor Relationship Specialty Start Date End Date Antonio Hopkins MD [address] [place] [phone] PCP - General Family Medicine 10/21/22 Antonio Hopkins MD [address] [place] [address] PCP Bernard Champion MA 11/25/23 Communications Electrician Supervisor Relationship Specialty Start Date End Date Antoino Hopkins MD [address] [place] [phone] PCP - [facility] Family Medicine 10/21/22 Antonio Hopkins MD [address] [place] [phone] PCP Bernard Champion MA 11/25/23 Communications Electrician Supervisor Relationship Specialty Start Date End Date Antonio Hopkins MD [address] [place] [phone] PCP - [facility] Family Medicine 10/21/22 Antonio Hopkins MD [address] [place] [phone] PCP - Jaycee DAVIS 11/25/23 Delmar Bowen MA Family Medicine 04/18/24 Goals (unrecognized section and content) Goals may [...] BE BASED ON THE PRIMARY CLINICAL RECORDS. [facility] [employer] [facility]. provides no warranty or guarantee of the accuracy or completeness of information in this document.
[2024-06-05 09:36] LABS: Basophils Percent Auto 0.4 % (0.2-2.0); Eosinophils Absolute Auto 0.2 10^3/uL (0.0-0.7); Eosinophils Percent Auto 2.1 % (0.9-7.0); Hematocrit 45.2 % (36.0-48.0); Hemoglobin 14.6 g/dL (12.0-16.0); Immature Granulocytes Abs Auto 0.02 10^3/uL (0.00-0.03); Immature Granulocytes Pct Auto 0.3 % (0.0-0.5); Lymphocytes Absolute Auto 1.7 10^3/uL (1.2-3.8); Lymphocytes Percent Auto 22.9 % (20.5-60.0); Mean Corpuscular HGB Conc 32.3 g/dL (29.9-35.2); Mean Corpuscular Hemoglobin 30.7 pg (26.7-34.0); Mean Platelet Volume 9.1 fL (9.5-13.5); Monocytes Absolute Auto 0.8 10^3/uL (0.3-0.8); Monocytes Percent Auto 10.4 % (1.7-12.0); Neutrophils Absolute Auto 4.6 10^3/uL (1.4-6.5); Neutrophils Percent Auto 63.9 % (43.0-75.0); Platelet Count 303 10^3/uL (150-450); Red Blood Count 4.76 10^6/uL (4.20-5.40); White Blood Count 7.2 10^3/uL (4.0-11.0)
[2024-06-05 09:54] LABS: Creatinine Urine Random 72.69 mg/dL (20.00-300.00); Microalbumin Urine Random <1.3 mg/dL (<=30.0)
[2024-06-05 09:54] LABS: Estimated Average Glucose 146 mg/dL; Glycohemoglobin A1C 6.7 % (4.5-6.2)
[2024-06-05 10:12] LABS: Bilirubin Urine NEGATIVE (NEGATIVE); Blood Urine NEGATIVE (NEGATIVE); Clarity Urine CLEAR (CLEAR); Color Urine YELLOW (YELLOW); Glucose Urine UA NEGATIVE (NEGATIVE); Ketones Urine NEGATIVE (NEGATIVE); Leukocyte Esterase Urine NEGATIVE (NEGATIVE); Nitrite Urine NEGATIVE (NEGATIVE); Protein Urine NEGATIVE (NEG/TRACE); Specific Gravity Urine 1.015 (1.005-1.025); Urobilinogen Urine 0.2 EU/dL (0.2-1.0)
[2024-06-05 10:17] LABS: Urine Microscopic Indicated NO
[2024-06-05 10:25] LABS: Alanine Aminotransferase 16 U/L (14-59); Albumin Level 3.6 g/dL (3.4-5.0); Alkaline Phosphatase 72 U/L (46-116); Anion Gap 13.1; Aspartate Amino Transferase 13 U/L (15-37); BUN Creatinine Ratio 10.2; Bilirubin Total 0.4 mg/dL (0.2-1.0); Carbon Dioxide 30.7 mmol/L (21.0-32.0); Chloride 103 mmol/L (98-107); Chol HDL Ratio 2.6; Cholesterol 161 mg/dL (<=200); Estimated GFR (African America >60 (>=60 mL/min/1.73m^2); Estimated GFR (Non-African Ame >60 (>=60 mL/min/1.73m^2); Globulin 3.5 g/dL; Glucose 135 mg/dL (74-106); HDL Cholesterol 61 mg/dL (40-60); Potassium 3.8 mmol/L (3.5-5.1); Sodium 143 mmol/L (136-145); Total Protein 7.1 g/dL (6.4-8.2); Triglycerides 53 mg/dL (<=150); VLDL CHOLESTEROL 10.6 mg/dL
== END 2024-06-05 09:06 | disposition home or self-care (01) ==
LOC: LAB 09:07
PROVIDERS: PCP Family Medicine; Visit Provider Nurse Practitioner
DX: M85.80 Other specified disorders of bone density and structure, unspecified site (principal); I10 Essential (primary) hypertension; R73.03 Prediabetes; J43.2 Centrilobular emphysema
CPT/HCPCS: 36415; 80053; 80061; 81003; 82043; 82306; 82570; 83036; 85025

== ENCOUNTER 2024-06-27 10:50 | Outpatient (OUT) | payer MEDICARE, SELFPAY ==
--- OUTSIDE RECORDS SUMMARY | 2024-06-27 11:04 | XMS_ITS | CCD ---
Author Organization [facility]iniSyva Care Team Providers Care Sanipractic Physician Name Role Phone Niraula, Lupillo Unavailable Unavailable PROVIDER, UNKNOWN Unavailable Unavailable JEF, OTTONIEL B Unavailable Unavailable Jef, Ottoniel Unavailable Unavailable PROVIDER, UNKNOWN Unavailable Unavailable Jef, Ottoniel Unavailable Unavailable DOZIER, DEEPIKAH Unavailable Unavailable PROVIDER, UNKNOWN Unavailable Unavailable Jef, Ottoniel Unavailable Unavailable FIGUEROA, MASROOR Unavailable Unavailable PROVIDER, UNKNOWN Unavailable Unavailable [place], Ottoniel Unavailable Unavailable FIGUEROA, MASROOR Unavailable Unavailable PROVIDER, UNKNOWN Unavailable Unavailable Jef, Ottoinel Unavailable Unavailable Berkeley, Ottoniel Unavailable Unavailable PROVIDER, UNKNOWN Unavailable Unavailable [place], Ottoniel Unavailable Unavailable FIGUEROA, MASROOR Unavailable Unavailable PROVIDER, UNKNOWN Unavailable Unavailable [place], Ottoniel Unavailable Unavailable NIRAULA, LUPILLO Unavailable Unavailable Jef, Ottoniel Unavailable Unavailable Tsivitse Eddi Unavailable Unavailable PROVIDER, UNKNOWN Unavailable Unavailable Berkeley, Ottoniel Unavailable Unavailable [place], Ottoneil Primary Care Provider [phone] DR HADNY KEATING Consulting Unavailable JAYDONERECarlos, DR ANTONIO Cadena [...] Unavailable Ottoniel Fuchs MD Primary Care Provider [phone] ANTONIO HOPKINS Primary Care Physician MD Kale Hanna Attending Provider [phone] Kale Hanna Attending Unavailable Kale Hanna Admitting Unavailable ISIS, Kale Gonzalez Attending Unavailable ANTONIO HOPKINS Referring Unavailable Kale HANNA Attending Unavailable Kale HANNA Attending Unavailable Antonio Hopkins MD Primary Care Provider [phone] Antonio Hopkins MD Unavailable Delmar Bowen MA Unavailable Unavailable ANTONIO HOPKINS Attending Unavailable ANTONIO HOPKINS Attending Unavailable BARBIE DHALIWAL Attending Unavailable Allergies Allergy Classification Reported Allergen(s) Allergy Type Date of Onset Reaction(s) Facility (1 source) No Known Medication Allergies; Translations: [No Known Medication Allergies] Propensity to adverse reactions (disorder) [facility] Repository Medications Current Medications Medication Drug Class(es) Dates Sig (Normalized) Sig (Original) [id number] 200 actuat albuterol 0.09 mg/actuat metered dose inhaler (14 sources) beta2-Adrenergic Agonist Start: 07-26-2023 take 2 puff(s) by inhalation every four hours for wheezing albuterol HFA 90 mcg/act inhaler Indications: Bronchiectasis without complication ([facility]) Inhale 2 puffs every 4 [...] 09/09/2018 Active amLODIPine 5 mg oral tablet (9 sources) Dihydropyridine Calcium Channel Jovita Start: 07-26-2023 [...] aspirin 81 mg delayed release oral tablet (10 sources) Platelet Aggregation Inhibitor, Nonsteroidal Anti-inflammatory Drug [...] propionate 0.05 mg/actuat metered dose nasal spray (9 sources) Corticosteroid Start: 04-09-2023 Flonase 0.05 m g/inh [place] 100 mcg, Nasal, Daily, Refill(s) 0 Start [...] 0.025 mg/actuat dry powder inhaler (6 sources) Anticholinergic, Corticosteroid, beta2-Adrenergic Agonist Fluticasone-Umeclidi n-Vilant [...] Active levothyroxine sodium 0.112 mg oral tablet (10 sources) l-Thyroxine Start: 07-26-2023 End: 07-25-2024 take [...] Active losartan potassium 50 mg oral tablet (10 sources) Angiotensin 2 Receptor Jovita Start: 07-26-2023 [...] mouth daily 90 tablet 3 08/09/2019 Active metFORMIN hydrochloride 500 mg oral tablet (1 source) Biguanide Start: 06-12-2024 End: 07-12-2024 take 1 tablet by mouth at mealtime metFORMIN (Glucophage) 500 MG tablet Indications: Type 2 diabetes mellitus without complication, without long-term current use of insulin (CMS/HCC) Take 1 tablet (500 mg) by mouth in the morning. Take with meals. 30 tablet 1 06/12/2024 07/12/2024 Active Multiple Vitamin (MULTI-DAY PO) (8 sources) Multiple Vitamin (MULTI-DAY PO) Take by [...] Active sodium chloride 9 mg/ml inhalation solution (8 sources) sodium chloride 0.9 % nebulizer solution Take 3 mL by nebulization if needed for wheezing Active sodium chloride 0.9% Inj 10 mL Vial (1 source) Start: 04-09-2023 sodium chlorid e 0.9% Inj 10 mL Vial 1 inh, NEB, TID, Refill(s) 0 Start Date: 04/09/23 Status: Ordered Problems Active Problems Problem Classification Problem Date Documented Date Episodic/Chronic Chronic obstructive pulmonary disease and bronchiectasis (20 sources) Emphysema, unspecified; Translations: [Bronchiectasis, uncomplicated] Onset: 12-25-2016 Resolved: 04-27-2024 12-25-2016 Chronic Complications of surgical procedures or medical care (14 sources) Postprocedural hypothyroidism; Translations: [Postoperative hypothyroidism] Onset: 12-13-2014 12-25-2015 Chronic Coronary atherosclerosis and other heart disease (2 sources) 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; Translations: [Athscl heart disease of mechoopda coronary artery w/o ang pctrs] Onset: 03-08-2018 Chronic Deficiency and other anemia (2 sources) Anemia, unspecified; Translations: [Anemia, unspecified] Onset: 04-04-2018 Episodic Diabetes mellitus without complication (2 sources) Type 2 diabetes mellitus without complication; Translations: [Type 2 diabetes mellitus without complications] Onset: 06-12-2024 06-12-2024 Chronic Esophageal disorders (1 source) Gastro-esophageal reflux disease without esophagitis; Translations: [GERD WITHOUT ESOPHAGITIS] Onset: 04-01-2022 Chronic Essential hypertension (16 sources) Essential (primary) hypertension; Translations: [Benign hypertension] Onset: 12-25-2015 12-25-2015 Chronic Menopausal disorders (1 source) Hormone replacement therapy; Translations: [HORMONE REPLACEMENT THERAPY] Onset: 09-22-2022 Episodic Other aftercare (1 source) group home (current) use of aspirin; Translations: [PENITENTIARY CURRENT USE OF ASPIRIN] Onset: 09-22-2022 Episodic Other aftercare (5 sources) Other continuous churn buttermaker (current) drug therapy; Translations: [OTH PENITENTIARY CURRENT DRUG THERAPY] Onset: 10-30-2021 Episodic Other [...] conditions (not mental disorders or infectious disease) (17 sources) Encounter for screening mammogram for malignant neoplasm of breast; Translations: [Screening for malignant neoplasm of colon done] Onset: 02-22-2018 Episodic Other upper respiratory disease (8 sources) Allergic rhinitis due to pollen; Translations: [Allergic rhinitis due to pollen] Onset: 09-27-2023 09-27-2023 Chronic Residual codes; unclassified (2 sources) Asymptomatic menopausal state; Translations: [Asymptomatic menopausal state] Onset: 02-22-2018 Episodic Residual codes; unclassified (6 sources) Menopause present; Translations: [Asymptomatic menopausal state] Onset: 04-27-2024 04-27-2024 Episodic Residual codes; unclassified (6 sources) Tobacco user; Translations: [Tobacco use] Onset: [...] Da te Episodic/Chronic Diabetes mellitus without complication (12 sources) Prediabetes; Translations: [Prediabetes] Onset: 12-29-2018 Resolved: 06-12-2024 12-29-2018 Episodic Mood disorders (6 sources) Mood disorders Onset: 03-28-2024 03-28-2024 Other aftercare (8 sources) Long-term current use of drug therapy; Translations: [Other continuous churn buttermaker (current) drug therapy] Onset: 04-01-2023 04-01-2023 Episodic Other bone disease and musculoskeletal deformities (10 sources) Osteopenia; Translations: [Other specified disorders of [...] 12-25-2016 09-03-2017 Episodic Other lower respiratory disease (9 sources) Nodule of lung; Translations: [Solitary pulmonary nodule] Onset: 09-03-2017 02-08-2022 Episodic Poisoning by other medications and drugs (1 source) Angiotensin-conver ting-enzyme inhibitor adverse reaction; Translations: [CARYL-inhibitor cough] Onset: 12-13-2014 Resolved: 12-25-2016 12-25-2016 Episodic Results Test Name Value Interpretation Reference Range Facility ALL CBC WITH AUTO DIFFon BASOPHILS ABSOLUTE AUTO 0 [facility] Basophils/100 WBC (Bld) 0.4 % 0.2 - 2.0 % [facility] Eosinophils/100 WBC (Bld) 2.1 % 0.9 - 7.0 % [facility] Erythrocyte distribution width (RBC) [Ratio] 14 % 11.0 - 15.0 % [facility] Hematocrit (Bld) [Volume fraction] 45.2 % 36.0 - 48.0 % [facility] Hemoglobin (Bld) [Mass/Vol] 14.6 g/dL 12.0 - 16.0 g/dL [facility] IMMATURE GRANULOCYTES ABS AUTO 0.02 [facility] Immature granulocytes/100 WBC (Bld) 0.3 % 0.0 - 0.5 % [facility] Interpretation and review of laboratory results Abnormal [facility] LYMPHOCYTES ABSOLUTE AUTO 1.7 [facility] Lymphocytes/100 WBC (Bld) 22.9 % 20.5 - 60.0 % [facility] MCH (RBC) [Entitic mass] 30.7 pg 26.7 - 34.0 pg [facility] MCHC (RBC) [Mass/Vol] 32.3 g/dL 29.9 - 35.2 g/dL [facility] MCV (RBC) [Entitic vol] 95 fL 81.0 - 99.0 fL [facility] MONOCYTES ABSOLUTE AUTO 0.8 [facility] Monocytes/100 WBC (Bld) 10.4 % 1.7 - 12.0 % [facility] NEUTROPHILS ABSOLUTE AUTO 4.6 [facility] Neutrophils/100 WBC (Bld) 63.9 % 43.0 - 75.0 % [facility] Platelet mean volume (Bld) [Entitic vol] 9.1 fL Low 9.5 - 13.[address] [facility] EO # 0.2 [facility] PLT 303 [facility] RBC 4.76 [facility] WBC 7.2 [facility] ALL HEMOGLOBINon 01-31-2024 Hemoglobin (Bld) [Mass/Vol] 14.6 g/dL 12.0 - 16.0 g/dL [facility] General Surgery Office/Clini c Noteon 06-14-2023 [...] 1 puff(s), Inhalation, Daily Flonase 0.05 mg/inh [place], 100 mcg, Nasal, Daily levothyroxine 112 mcg [...] 02/04/2021 Recorded 2023-04-09: [id number] patient seen 06/04/2023 [facility] Comment on above: Result Comment: Elec tronically Signed By: ISIS ALCANTAR, Kale Thurman\Date and Time Signed: 06/14/23 16:34 EST Ambulatory [...] EC Tab) fluticasone nasal (Flonase 0.05 mg/inh [place]) fluticasone-vilantero l (Breo Ellipta 100 mcg-25 mcg [...] Unchanged fluticasone nasal (Flonase 0.05 mg/ inh [place]) 100 Microgram Nasal Inhalation Every day Unchanged [...] you for choosing us for your care. [facility] Reminderson 06-04-2023 Reminders - From: Tamia Price LPN To: N - Clinical; Sent: 06/04/2023 14:05:05 EST Show up: 04/11/2033 07:00:00 EST Subject: colonoscopy recall Due Date/Time: 05/12/2033 07:00:00 EST Reminder/Recall Patient due for screening colonoscopy 05/12/2033. Normal [facility] Outside Colonoscopyon 2023 Outside Colonoscopy [id number] .00TIFF [facility] Pathology Noteon 05-20-2023 Pathology Note [id number]#1. 00TIFF [facility] Matthieu 05-12-2023 L Specimen: [id number] Received: 05/12/23 Status: BILLY [place] Num: [id number] Spec Type: Surgical Subm Dr: Kale Hanna MD FACS Tissues: A Colon Biopsy (SIGMOID POLYP) Procedures: HE/2, Gross/Micro L4 Age/ Patient Sex Location Account Attending Physician Akil Chacon 67/F LABELL [id number] Kale Hanna MD FACS SPEC NUM: [id number] RECD: 05/12/23 STATUS: [facility] NUM: [id number] DONIS: 05/12/[address]: Kale Hanna MD FACS ENTERED: 05/12/[address] [facility] DR: Viv,Lab SPEC TYPE: Surgical DEPT: PERFECTO ORTIZ ORDERED: [...] in one cassette labeled A1. CPT Codes 54280 -------- -------- Specimen: [id number] Received: 05/12/23 Status: [place] Num: [id number] Spec Type: Surgical Subm Dr: Kale Hanna MD FACS Tissues: A Colon Biopsy (SIGMOID POLYP) Procedures: Fred BLACK/Olesya L4 -------- Patient: Akil Chacon [id number] (Continued) -------- Signed (signature on file) Ai Marquez MD 05/14/23 0825 [facility] Insurance Correspondenceon 0 05-05-2023 Insurance Correspondence [id number] .00TIFF [facility] Consent for Procedure/Surger yon 04-23-2023 Consent for Procedure/Surgery [id number] .00TIFF [facility] Facesheeton 04-22-2023 Facesheet [id number]# 1.00TIFF [facility] Ambulatory Visit Summaryon 1 06-22-2022 Ambulatory Visit Summary AKIL CHACON :1955 Visit Date:04/21/2023 Ambulatory Visit Instructions Your Diagnosis Screening for malignant neoplasm of colon Your Care Team Attending Physician - ISIS ALCANTAR, Kale Gonzalez Primary Care Physician - SANDEEP ALCANTAR, ANTONIO Referring Physician - ANTONIO HOPKINS MD This Is Your Medications List Contact prescribing physician if questions or concerns albuterol (Albuterol (Eqv-ProAir HFA)) amlodipine (amLODIPine 5 mg Tab) aspirin (aspirin 81 mg Oral EC Tab) fluticasone nasal (Flonase 0.05 mg/inh [place]) fluticasone-vilantero l (Breo Ellipta 100 mcg-25 mcg [...] Unchanged fluticasone nasal (Flonase 0.05 mg/ inh [place]) 100 Microgram Nasal Inhalation Every day Contact [...] for choosing us for your care. Normal [facility] Transfer Inon 04-06-2023 Transfer In [id number] .00TIFF Normal [facility] Physician Referralon 023 Physician Referral [id number] .00TIFF [facility] CBC AUTO DIFFon 09-23-2022 BASO # 0.0 103/ul Normal 0.0-0.1 [facility] Comment on above: Performed By: #### C YTO #### [facility] [address] [address] [address] Jayy Marquez Basophils/100 WBC (Bld) 0.4 % Normal 0.2-2.0 [facility] Comment on above: Performed By: #### C YTO #### [facility] [address] [address] [address] Jayy Marquez EO # 0.1 103/ul Normal 0.0-0.7 [facility] Comment on above: Performed By: #### C YTO #### [facility] [address] [place] [address] Dr. Jayy Marquez Eosinophils/100 WBC (Bld) 0.5 % Critically low 0.9-7.0 [facility] Comment on above: Performed By: #### C YTO #### [facility] [address] [place] [address] Dr. Jayy Marquez Erythrocyte distribution width (RBC) [Ratio] 13.1 % Normal 11.0-15.0 [facility] Comment on above: Performed By: #### C YTO #### [facility] [address] [place] [address] Dr. Jayy Marquez Hematocrit (Bld) [Volume fraction] 43.0 % Normal 36.0-48.0 [facility] Comment on above: Performed By: #### C YTO #### [facility] [address] [place] [address] Dr. Jayy Marquez Hemoglobin (Bld) [Mass/Vol] 13.9 g/dL Normal 12.0-16.0 [facility] Comment on above: Performed By: #### C YTO #### [facility] [address] [place] [address] Dr. Jayy Marquez IG # 0.04 10e3/ul Critically high 0.00-0.03 [facility] Comment on above: Performed By: #### C YTO #### [facility] [address] [place] [address] Dr. Jayy Marquez IG % 0.4 % Normal 0.0-0.5 [facility] Comment on above: Performed By: #### C YTO #### [facility] [address] [place] [address] Dr. Jayy Marquez LYMPH # 0.7 103/ul Critically low 1.2-3.8 [facility] Comment on above: Performed By: #### C YTO #### [facility] [address] [address] [address] Jayy Marquez Lymphocytes/100 WBC (Bld) 6.7 % Critically low 20.5-60.0 [facility] Comment on above: Performed By: #### C YTO #### [facility] [address] [address] [address] Jayy Marquez MANUAL DIFF REQ NO Normal [facility] Comment on above: Performed By: #### C YTO #### [facility] [address] [address] [address] Jayy Marquez MCH (RBC) [Entitic mass] 31.2 pg Normal 26.7-34.0 [facility] Comment on above: Performed By: #### C YTO #### [facility] [address] [place] [address] Dr. Jayy Marquez MCHC (RBC) [Mass/Vol] 32.3 g/dL Normal 29.9-35.2 [facility] Comment on above: Performed By: #### C YTO #### [facility] [address] [place] [address] Dr. Jayy Marquez MCV (RBC) [Entitic vol] 96.4 fL Normal 81.0-99.0 [facility] Comment on above: Performed By: #### C YTO #### [facility] [address] [place] [address] Dr. Jayy Marquez MONO # 0.9 103/ul Critically high 0.3-0.8 [facility] Comment on above: Performed By: #### C YTO #### [facility] [address] [address] [address] Jayy Marquez Monocytes/100 WBC (Bld) 8.2 % Normal 1.7-12.0 [facility] Comment on above: Performed By: #### C YTO #### [facility] [address] [address] [address] Jayy Marquez NEUT # 9.0 103/ul Critically high 1.4-6.5 [facility] Comment on above: Performed By: #### C YTO #### [facility] [address] [address] [address] Jayy Marquez Neutrophils/100 WBC (Bld) 83.8 % Critically high 43.0-75.0 [facility] Comment on above: Performed By: #### C YTO #### [facility] [address] [address] [address] Jayy Marquez Platelet mean volume (Bld) [Entitic vol] 10.4 fL Normal 9.5-13.5 [facility] Comment on above: Performed By: #### C YTO #### [facility] [address] [place] [address] Dr. Jayy Marquez PLT 232 103/ul Normal 150-450 [facility] Comment on above: Performed By: #### C YTO #### [facility] [address] [place] [address] Dr. Jayy Marquez RBC 4.46 106/ul Normal 4.20-5.40 [facility] Comment on above: Performed By: #### C YTO #### [facility] [address] [address] [address] Jayy Marquez WBC 10.7 103/ul Normal 4.0-11.0 [facility] Comment on above: Performed By: #### C YTO #### [facility] [address] [place] [address] Dr. Jayy Marquez PROF CHEM 8 (BAS METB)on Anion gap [Moles/Vol] 13.4 mmol/L Normal [facility] Comment on above: Performed By: #### B MP #### [facility] [address] [place] [address] Dr. Jayy Marquez Calcium [Mass/Vol] 9.1 mg/dL Normal 8.5-10.1 [facility] Comment on above: Performed By: #### B MP #### [facility] [address] [place] [address] Dr. Jayy Marquez Chloride [Moles/Vol] 100 mmol/L Normal 98-107 [facility] Comment on above: Performed By: #### B MP #### [facility] [address] [address] [address] Jayy Marquez CO2 [Moles/Vol] 27.2 mmol/L Normal 21.0-32.0 [facility] Comment on above: Performed By: #### B MP #### [facility] [address] [address] [address] Jayy Marquze Creatinine [Mass/Vol] 0.77 mg/dL Normal 0.55-1.02 [facility] Comment on above: Performed By: #### B MP #### [facility] [address] [address] [address] Jayy Marquez EGFR-AF IRANIAN >60 Normal >=60 [facility] Comment on above: Performed By: #### B MP #### [facility] [address] [address] [address] Jayy Marquez EGFR-NON AF IRANIAN >60 Normal >=60 [facility] Comment on above: Performed By: #### B MP #### [facility] [address] [address] [address] Jayy Marquez Glucose [Mass/Vol] 173 mg/dL Critically high 74-106 [facility] Comment on above: Performed By: #### B MP #### [facility] [address] [address] [address] Jayy Marquez Potassium [Moles/Vol] 4.6 mmol/L Normal 3.5-5.1 [facility] Comment on above: Performed By: #### B MP #### [facility] [address] [address] [address] Jayy Marquez Sodium [Moles/Vol] 136 mmol/L Normal 136-145 [facility] Comment on above: Performed By: #### B MP #### [facility] [address] [address] [address] Jayy Marquez Urea nitrogen [Mass/Vol] 16.0 mg/dL Normal 7.0-18.0 [facility] Comment on above: Performed By: #### B MP #### [facility] [address] [place] [address] Dr. Jayy Marquez Urea nitrogen/Creatinine [Mass ratio] 20.8 mg/mg Normal [facility] Comment on above: Performed By: #### B MP #### [facility] [address] [place] [address] Dr. Jayy Marquez XR CHEST 1 Von [...] ELENO FUENTES Date: 2022-09-23 14:29 Normal [facility] BNPon 09-22-2022 Natriuretic peptide B (Bld) [Mass/Vol] 243.0 pg/mL Normal <=900.0 [facility] Comment on above: Performed By: #### B MP, BNP, HSTROPN #### [facility] [address] [place] [address] Dr. Jayy Marquez CBC AUTO DIFFon 09-22-2022 BASO # 0.0 103/ul Normal 0.0-0.1 [facility] Comment on above: Performed By: #### C VDAGS #### [facility] [address] [place] [address] Dr. Jayy Marquez Basophils/100 WBC (Bld) 0.4 % Normal 0.2-2.0 [facility] Comment on above: Performed By: #### C VDAGS #### [facility] [address] [place] [address] Dr. Jayy Marquez EO # 0.0 103/ul Normal 0.0-0.7 [facility] Comment on above: Performed By: #### C VDAGS #### [facility] [address] [place] [address] Dr. Jayy Marquez Eosinophils/100 WBC (Bld) 0.0 % Critically low 0.9-7.0 [facility] Comment on above: Performed By: #### C VDAGS #### [facility] [address] [place] [address] Dr. Jayy Marquez Erythrocyte distribution width (RBC) [Ratio] 13.1 % Normal 11.0-15.0 [facility] Comment on above: Performed By: #### C VDAGS #### [facility] [address] [place] [address] Dr. Jayy Marquez Hematocrit (Bld) [Volume fraction] 42.7 % Normal 36.0-48.0 [facility] Comment on above: Performed By: #### C VDAGS #### [facility] [address] [place] [address] Dr. Jayy Marquez Hemoglobin (Bld) [Mass/Vol] 13.9 g/dL Normal 12.0-16.0 [facility] Comment on above: Performed By: #### C VDAGS #### [facility] [address] [place] [address] Dr. Jayy Marquez IG # 0.03 10e3/ul Normal 0.00-0.03 [facility] Comment on above: Performed By: #### C VDAGS #### [facility] [address] [place] [address] Dr. Jayy Marquez IG % 0.4 % Normal 0.0-0.5 [facility] Comment on above: Performed By: #### C VDAGS #### [facility] [address] [place] [address] Dr. Jayy Marquez LYMPH # 0.4 103/ul Critically low 1.2-3.8 [facility] Comment on above: Performed By: #### C VDAGS #### [facility] [address] [place] [address] Dr. Jayy Marquez Lymphocytes/100 WBC (Bld) 5.5 % Critically low 20.5-60.0 [facility] Comment on above: Performed By: #### C VDAGS #### [facility] [address] [place] [address] Dr. Jayy Marquez MANUAL DIFF REQ NO Normal [facility] Comment on above: Performed By: #### C VDAGS #### [facility] [address] [place] [address] Dr. Jayy Marquez MCH (RBC) [Entitic mass] 31.2 pg Normal 26.7-34.0 [facility] Comment on above: Performed By: #### C VDAGS #### [facility] [address] [place] [address] Dr. Jayy Marquez MCHC (RBC) [Mass/Vol] 32.6 g/dL Normal 29.9-35.2 [facility] Comment on above: Performed By: #### C VDAGS #### [facility] [address] [place] [address] Dr. Jayy Marquez MCV (RBC) [Entitic vol] 96.0 fL Normal 81.0-99.0 [facility] [facility] Comment on above: Performed By: #### C VDAGS #### [facility] [address] [place] [address] Dr. Jayy Marquez MONO # 0.3 103/ul Normal 0.3-0.8 [facility] Comment on above: Performed By: #### C VDAGS #### [facility] [address] [place] [address] Dr. Jayy Marquez Monocytes/100 WBC (Bld) 3.5 % Normal 1.7-12.0 [facility] Comment on above: Performed By: #### C VDAGS #### [facility] [address] [place] [address] Dr. Jayy Marquez NEUT # 6.9 103/ul Critically high 1.4-6.5 [facility] Comment on above: Performed By: #### C VDAGS #### [facility] [address] [place] [address] Dr. Jayy Marquez Neutrophils/100 WBC (Bld) 90.2 % Critically high 43.0-75.0 [facility] Comment on above: Performed By: #### C VDAGS #### [facility] [address] [place] [address] Dr. Jayy Marquze Platelet mean volume (Bld) [Entitic vol] 9.8 fL Normal 9.5-13.5 [facility] Comment on above: Performed By: #### C VDAGS #### [facility] [address] [place] [address] Dr. Jayy Marquez PLT 207 103/ul Normal 150-450 [facility] Comment on above: Performed By: #### C VDAGS #### [facility] [address] [place] [address] Dr. Jayy Marquez RBC 4.45 106/ul Normal 4.20-5.40 [facility] Comment on above: Performed By: #### C VDAGS #### [facility] [address] [place] [address] Dr. Jayy Marquez WBC 7.6 103/ul Normal 4.0-11.0 [facility] Comment on above: Performed By: #### C VDAGS #### [facility] [address] [place] [address] Dr. Jayy Marquez BASO # 0.0 103/ul Normal 0.0-0.1 [facility] Comment on above: Performed By: #### C BC #### [facility] [address] [place] [address] Dr. Jayy Marquez Basophils/100 WBC (Bld) 0.4 % Normal 0.2-2.0 [facility] Comment on above: Performed By: #### C BC #### [facility] [address] [place] [address] Dr. Jayy Marquez EO # 0.1 103/ul Normal 0.0-0.7 [facility] Comment on above: Performed By: #### C BC #### [facility] [address] [place] [address] Dr. Jayy Marquez Eosinophils/100 WBC (Bld) 1.4 % Normal 0.9-7.0 [facility] Comment on above: Performed By: #### C BC #### [facility] [address] [place] [address] Dr. Jayy Marquez Erythrocyte distribution width (RBC) [Ratio] 13.2 % Normal 11.0-15.0 [facility] Comment on above: Performed By: #### C BC #### [facility] [address] [place] [address] Dr. Jayy Marquez Hematocrit (Bld) [Volume fraction] 45.5 % Normal 36.0-48.0 [facility] Comment on above: Performed By: #### C BC #### [facility] [address] [place] [address] Dr. Jayy Marquez Hemoglobin (Bld) [Mass/Vol] 15.3 g/dL Normal 12.0-16.0 [facility] Comment on above: Performed By: #### C BC #### [facility] [address] [place] [address] Dr. Jayy Marquez IG # 0.03 10e3/ul Normal 0.00-0.03 [facility] Comment on above: Performed By: #### C BC #### [facility] [address] [place] [address] Dr. Jayy Marquez IG % 0.3 % Normal 0.0-0.5 [facility] Comment on above: Performed By: #### C BC #### [facility] [address] [place] [address] Dr. Jayy Marquez LYMPH # 1.3 103/ul Normal 1.2-3.8 [facility] Comment on above: Performed By: #### C BC #### [facility] [address] [place] [address] Dr. Jayy Marquez Lymphocytes/100 WBC (Bld) 13.8 % Critically low 20.5-60.0 [facility] Comment on above: Performed By: #### C BC #### [facility] [address] [place] [address] Dr. Jayy Marquez MANUAL DIFF REQ NO Normal [facility] Comment on above: Performed By: #### C BC #### [facility] [address] [place] [address] Dr. Jayy Marquez MCH (RBC) [Entitic mass] 32.0 pg Normal 26.7-34.0 [facility] Comment on above: Performed By: #### C BC #### [facility] [address] [address] [address] Jayy Marquez MCHC (RBC) [Mass/Vol] 33.6 g/dL Normal 29.9-35.2 [facility] Comment on above: Performed By: #### C BC #### [facility] [address] [address] [address] Jayy Marquez MCV (RBC) [Entitic vol] 95.2 fL Normal 81.0-99.0 [facility] Comment on above: Performed By: #### C BC #### [facility] [address] [address] [address] Jayy Marquez MONO # 1.3 103/ul Critically high 0.3-0.8 [facility] Comment on above: Performed By: #### C BC #### [facility] [address] [place] [address] Dr. Jayy Marquez Monocytes/100 WBC (Bld) 13.7 % Critically high 1.7-12.0 [facility] Comment on above: Performed By: #### C BC #### [facility] [address] [address] [address] Jayy Marquez NEUT # 6.7 103/ul Critically high 1.4-6.5 [facility] Comment on above: Performed By: #### C BC #### [facility] [address] [place] [address] Dr. Jayy Marquez Neutrophils/100 WBC (Bld) 70.4 % Normal 43.0-75.0 [facility] Comment on above: Performed By: #### C BC #### [facility] [address] [place] [address] Dr. Jayy Marquez Platelet mean volume (Bld) [Entitic vol] 9.6 fL Normal 9.5-13.5 [facility] Comment on above: Performed By: #### C BC #### [facility] [address] [place] [address] Dr. Jayy Marquez PLT 218 103/ul Normal 150-450 [facility] Comment on above: Performed By: #### C BC #### [facility] [address] [place] [address] Dr. Jayy Marquez RBC 4.78 106/ul Normal 4.20-5.40 [facility] Comment on above: Performed By: #### C BC #### [facility] [address] [place] [address] Dr. Jayy Marquez WBC 9.5 103/ul Normal 4.0-11.0 [facility] Comment on above: Performed By: #### C BC #### [facility] [address] [place] [address] Dr. Jayy Marquez PROF CHEM 8 (BAS METB)on Anion gap [Moles/Vol] 11.3 mmol/L Normal [facility] Comment on above: Performed By: #### B MP #### [facility] [address] [place] [address] Dr. Jayy Marquez Calcium [Mass/Vol] 8.7 mg/dL Normal 8.5-10.1 [facility] Comment on above: Performed By: #### B MP #### [facility] [address] [place] [address] Dr. Jayy Marquez Chloride [Moles/Vol] 100 mmol/L Normal 98-107 [facility] Comment on above: Performed By: #### B MP #### [facility] [address] [place] [address] Dr. Jayy Marquez CO2 [Moles/Vol] 27.6 mmol/L Normal 21.0-32.0 [facility] Comment on above: Performed By: #### B MP #### [facility] [address] [place] [address] Dr. Jayy Marquez Creatinine [Mass/Vol] 0.82 mg/dL Normal 0.55-1.02 [facility] Comment on above: Performed By: #### B MP #### [facility] [address] [place] [address] Dr. Jayy Marquez EGFR-AF IRANIAN >60 Normal >=60 [facility] Comment on above: Performed By: #### B MP #### [facility] [address] [address] [address] Jayy Marquez EGFR-NON AF IRANIAN >60 Normal >=60 [facility] Comment on above: Performed By: #### B MP #### [facility] [address] [address] [address] Jayy Marquez Glucose [Mass/Vol] 203 mg/dL Critically high 74-106 [facility] Comment on above: Performed By: #### B MP #### [facility] [address] [address] [address] Jayy Marquez Potassium [Moles/Vol] 3.9 mmol/L Normal 3.5-5.1 [facility] Comment on above: Performed By: #### B MP #### [facility] [address] [place] [address] Dr. Jayy Marquez Sodium [Moles/Vol] 135 mmol/L Critically low 136-145 [facility] Comment on above: Performed By: #### B MP #### [facility] [address] [place] [address] Dr. Jayy Marquez Urea nitrogen [Mass/Vol] 11.0 mg/dL Normal 7.0-18.0 [facility] Comment on above: Performed By: #### B MP #### [facility] [address] [place] [address] Dr. Jayy Marquez Urea nitrogen/Creatinine [Mass ratio] 13.4 mg/mg Normal [facility] Comment on above: Performed By: #### B MP #### [facility] [address] [address] [address] Jayy Marquez Anion gap [Moles/Vol] 12.9 mmol/L Normal [facility] Comment on above: Performed By: #### C YTO #### [facility] [address] [address] [address] Jayy Marquez Calcium [Mass/Vol] 9.2 mg/dL Normal 8.5-10.1 [facility] Comment on above: Performed By: #### C YTO #### [facility] [address] [place] [address] Dr. Jayy Marquez Chloride [Moles/Vol] 98 mmol/L Normal 98-107 [facility] Comment on above: Performed By: #### C YTO #### [facility] [address] [place] [address] Dr. Jayy Marquez CO2 [Moles/Vol] 25.8 mmol/L Normal 21.0-32.0 [facility] Comment on above: Performed By: #### C YTO #### [facility] [address] [place] [address] Dr. Jayy Marquez Creatinine [Mass/Vol] 0.90 mg/dL Normal 0.55-1.02 [facility] Comment on above: Performed By: #### C YTO #### [facility] [address] [place] [address] Dr. Jayy Marquez EGFR-AF IRANIAN >60 Normal >=60 [facility] Comment on above: Performed By: #### C YTO #### [facility] [address] [place] [address] Dr. Jayy Marquez EGFR-NON AF IRANIAN >60 Normal >=60 [facility] Comment on above: Performed By: #### C YTO #### [facility] [address] [place] [address] Dr. Jayy Marquez Glucose [Mass/Vol] 150 mg/dL Critically high 74-106 [facility] Comment on above: Performed By: #### C YTO #### [facility] [address] [place] [address] Dr. Jayy Marquez Potassium [Moles/Vol] 3.7 mmol/L Normal 3.5-5.1 [facility] Comment on above: Performed By: #### C YTO #### [facility] [address] [place] [address] Dr. Jayy Marquez Sodium [Moles/Vol] 133 mmol/L Critically low 136-145 [facility] Comment on above: Performed By: #### C YTO #### [facility] [address] [place] [address] Dr. Jayy Marquez Urea nitrogen [Mass/Vol] 14.0 mg/dL Normal 7.0-18.0 [facility] Comment on above: Performed By: #### C YTO #### [facility] [address] [place] [address] Dr. Jayy Marquez Urea nitrogen/Creatinine [Mass ratio] 15.6 mg/mg Normal [facility] Comment on above: Performed By: #### C YTO #### [facility] [address] [place] [address] Dr. Jayy Marquez RESPIRATORY PANEL PLUSon Adenovirus Not detected Normal NOT DETECTED [facility] Comment on above: Performed By: #### C VDAGS #### [facility] [address] [place] [address] Dr. Jayy King. Parapertusis Not detected Normal NOT DETECTED [facility] Comment on above: Performed By: #### C VDAGS #### [facility] [address] [place] [address] Dr. Jayy King. Pertussis Not detected Normal NOT DETECTED [facility] Comment on above: Performed By: #### C VDAGS #### [facility] [address] [place] [address] Dr. Jayy Marquez Chlamydia Pneumoniae Not detected Normal NOT DETECTED [facility] Comment on above: Performed By: #### C VDAGS #### [facility] [address] [place] [address] Dr. Jayy Marquez Coronavirus 229E Not detected Normal NOT DETECTED [facility] Comment on above: Performed By: #### C VDAGS #### [facility] [address] [place] [address] Dr. Jayy Marquez Coronavirus HKU1 Not detected Normal NOT DETECTED [facility] Comment on above: Performed By: #### C VDAGS #### [facility] [address] [place] [address] Dr. Jayy Marquez Coronavirus NL63 Not detected Normal NOT DETECTED [facility] Comment on above: Performed By: #### C VDAGS #### [facility] [address] [place] [address] Dr. Jayy Marquez Coronavirus OC43 Not detected Normal NOT DETECTED [facility] Comment on above: Performed By: #### C VDAGS #### [facility] [address] [place] [address] Dr. Jayy Marquez Influenza A H1 Not detected Normal NOT DETECTED [facility] Comment on above: Performed By: #### C VDAGS #### [facility] [address] [address] [address] Jayy Marquez Influenza A H1 2009 Not detected Normal NOT DETECTED [facility] Comment on above: Performed By: #### C VDAGS #### [facility] [address] [place] [address] Dr. Jayy Marquez Influenza A H3 Not detected Normal NOT DETECTED [facility] Comment on above: Performed By: #### C VDAGS #### [facility] [address] [place] [address] Dr. Jayy Marquez Influenza B Not detected Normal NOT DETECTED [facility] Comment on above: Performed By: #### C VDAGS #### [facility] [address] [place] [address] Dr. Jayy Marquez Metapneumovirus Not detected Normal NOT DETECTED [facility] Comment on above: Performed By: #### C VDAGS #### [facility] [address] [place] [address] Dr. Jayy Marquez Mycoplas. Pneumoniae Not detected Normal NOT DETECTED [facility] Comment on above: Performed By: #### C VDAGS #### [facility] [address] [place] [address] Dr. Jayy Marquez Parainfluenza 1 Not detected Normal NOT DETECTED [facility] Comment on above: Performed By: #### C VDAGS #### [facility] [address] [place] [address] Dr. Jayy Marquez Parainfluenza 2 Not detected Normal NOT DETECTED [facility] Comment on above: Performed By: #### C VDAGS #### [facility] [address] [place] [address] Dr. Jayy Marquez Parainfluenza 3 Not detected Normal NOT DETECTED [facility] Comment on above: Performed By: #### C VDAGS #### [facility] [address] [place] [address] Dr. Jayy Marquez Parainfluenza 4 Not detected Normal NOT DETECTED [facility] Comment on above: Performed By: #### C VDAGS #### [facility] [address] [place] [address] Dr. Jayy Marquez Rhino/Enterovirus Not detected Normal NOT DETECTED [facility] Comment on above: Performed By: #### C VDAGS #### [facility] [address] [place] [address] Dr. Jayy Marquez RP2 Header 1 RESPIRATORY PANEL: VIRUSES Normal [facility] Comment on above: Performed By: #### C VDAGS #### [facility] [address] [place] [address] Dr. Jayy Marquez RP2 Header 2 RESPIRATORY PANEL: BACTERIA Normal [facility] Comment on above: Performed By: #### C VDAGS #### [facility] [address] [place] [address] Dr. Jayy Marquez RSV Not detected Normal NOT DETECTED [facility] Comment on above: Performed By: #### C VDAGS #### [facility] [address] [place] [address] Dr. Jayy Marquez SARS-CoV-2 (COVID-19) RNA SILVINO+probe Ql (Unsp spec) Not detected Normal NOT DETECTED [facility] Comment on above: Performed By: #### C VDAGS #### [facility] [address] [place] [address] Dr. Jayy Marquez SYMPTOMATIC COVID-19 ANTIGEN on 09-22-2022 EUA Statement SEE BELOW Normal [facility] Comment on above: Result [...] sooner. Performed By: #### C VDAGS #### [facility] [address] [place] [address] Dr. Jayy Marquez SARS-CoV-2 (COVID-19) RNA SILVINO+probe Ql (Unsp spec) Negative Normal NEGATIVE [facility] Comment on above: Performed By: #### C VDAGS #### [facility] [address] [place] [address] Dr. Jayy Marquez TROPONIN, HIGH SENSITIVITYon 09-22-2022 HSTROP 12.9 pg/mL Normal 4.0-51.3 [facility] Comment on above: Result Comment: CUT- OFF POINTS HAVE BEEN ESTABLISHED BASED ON THE FOURTH UNIVERSAL DEFINITIONS OF MYOCARDIAL INFARCTION. THE UPPER REFERENCE LIMIT (URL) OF TROPONIN, DEFINED THE 99TH PERCENTILE OF cTnI DISTRIBUTION IN A REFERENCE POPULATION, HAS BEEN CONFIRMED THE DECISION THRESHOLD FOR DE DIAGNOSIS. Performed By: #### B MP, BNP, HSTROPN #### [facility] [address] [place] [address] Dr. Jayy Marquez XR CHEST 1 Von [...] ARIANNA CEVALLOS Date: 2022-09-22 00:51 Normal [facility] CT CHEST WO CONon 09-01-2022 CT [...] HANDY KEATING Date: 2022-09-01 15:28 Normal [facility] ACID FAST SMEAR AND CXon Acid Fast Culture Negative Normal [facility] Comment on above: Result Comment: No a goyo fast bacilli isolated after 6 weeks. Performed By: #### A FB #### [facility] [address] [place] [address] Dr. Jayy Marquez Performed By: #### C VDAGS #### [facility] [address] [place] [address] Dr. Jayy Marquez Acid Fast Smear Negative Normal [facility] Comment on above: Performed By: #### A FB #### [facility] [address] [place] [address] Dr. Jayy Marquez Performed By: #### C VDAGS #### [facility] [address] [place] [address] Dr. Jayy Marquez AFB Specimen Processing Concentration Normal [facility] Comment on above: Performed By: #### A FB #### [facility] [address] [place] [address] Dr. Jayy Marquez Performed By: #### C VDAGS #### [facility] [address] [place] [address] Dr. Jayy Marquez FUNGAL CULTUREon 04-23-2022 Fungus (Mycology) Culture Final report Normal [facility] Comment on above: Performed By: #### C XFUN #### [facility] [address] [place] [address] Dr. Jayy Marquez Performed By: #### C VDAGS #### [facility] [address] [place] [address] Dr. Jayy Marquez Fungus Stain Final report Normal [facility] Comment on above: Performed By: #### C XFUN #### [facility] [address] [place] [address] Dr. Jayy Marquez Performed By: #### C VDAGS #### [facility] [address] [place] [address] Dr. Jayy Marquez Result 1 Comment Normal [facility] Comment on above: Result Comment: TANYA/ Calcofluor preparation: no fungus observed. Performed By: #### C XFUN #### [facility] [address] [place] [address] Dr. Jayy Marquez Result Comment: No y east or mold isolated after 4 weeks. Performed By: #### C VDAGS #### [facility] [address] [place] [address] Dr. Jayy Marquez CULTURE OTHERon 03-26-2022 CULTURE [...] Tetracycline >=16 R F Normal [facility] Comment on above: Performed By: #### C YTO #### [facility] [address] [place] [address] Dr. Jayy Marquez CULTURE OTHERon 03-25-2022 CULTURE [...] Levofloxacin 0.25 S F Normal [facility] Comment on above: Performed By: #### C YTO #### [facility] [address] [place] [address] Dr. Jayy Marquez CYTOLOGYon 03-23-2022 SENT TO REF LAB 03/23/2022 [facility] Comment on above: Performed By: #### C YTO #### [facility] [address] [place] [address] Dr. Jayy Marquez GRAM STAINon 03-23-2022 DIPHTHEROIDS Normal [facility] Comment on above: Performed By: #### C VDAGS #### [facility] [address] [place] [address] Dr. Jayy Marquez EPITHELIALS [facility] Comment on above: Performed By: #### C VDAGS #### [facility] [address] [place] [address] Dr. Jayy Marquez FUNGAL ELEMENTS Normal [facility] Comment on above: Performed By: #### C VDAGS #### [facility] [address] [place] [address] Dr. Jayy Marquez GRAM NEG BACILLI FEW Normal [facility] Comment on above: Performed By: #### C VDAGS #### [facility] [address] [address] [address] Jayy Marquez GRAM NEG DIPPLOCOCCI Normal [facility] Comment on above: Performed By: #### C VDAGS #### [facility] [address] [address] [address] Jayy Marquez GRAM POS BACILLI Normal [facility] Comment on above: Performed By: #### C VDAGS #### [facility] [address] [address] [address] Jayy Marquez GRAM POSITIVE COCCI FEW Normal [facility] Comment on above: Performed By: #### C VDAGS #### [facility] [address] [address] [address] Jayy Marquez GRAM STAIN SOURCE Rt Middle Lobe Lavage Normal [facility] Comment on above: Performed By: #### C VDAGS #### [facility] [address] [place] [address] Dr. Jayy Marquez GRAM STAIN SOURCE Lingula Lt Upper Lob e Lavage Normal [facility] Comment on above: Performed By: #### C VDAGS #### [facility] [address] [address] [address] Jayy Marquez GS_DIPTH Normal [facility] Comment on above: Performed By: #### C VDAGS #### [facility] [address] [place] [address] Dr. Jayy Marquez WBC MANY Normal [facility] Comment on above: Performed By: #### C VDAGS #### [facility] [address] [place] [address] Dr. Jayy Marquez WBC MODERATE Normal [facility] Comment on above: Performed By: #### C VDAGS #### [facility] [address] [place] [address] Dr. Jayy Marquez Covid-19 PCR (CVDTB)on 02-25 SARS-CoV-2 (COVID-19) RNA SILVINO+probe Ql (Unsp spec) Not detected Normal NOT DETECTED [facility] Comment on above: Result Comment: This test is not yet approved or cleared by the [place] FDA. When there are no FDA-approved or cleared tests available, and other criteria are met, FDA can make tests available under an emergency access mechanism called an Emergency Use Authorization (EUA). The EUA for this test is supported by the [place] of Health and Human Service's (HHS's) declaration [...] SARS-CoV-2. Performed By: #### C O #### [facility] [address] [place] [address] LUNG CANCER SCREENINGon [...] HANDY KEATING Date: 2022-03-04 16:14 Normal [facility] CBC AUTO DIFFon 10-30-2021 BASO # 0.0 103/ul Normal 0.0-0.1 [facility] Comment on above: Performed By: #### C VDAGS #### [facility] [address] [address] [address] Jayy Marquez Basophils/100 WBC (Bld) 0.7 % Normal 0.2-2.0 [facility] Comment on above: Performed By: #### C VDAGS #### [facility] [address] [address] [address] Jayy Marquez EO # 0.2 103/ul Normal 0.0-0.7 [facility] Comment on above: Performed By: #### C VDAGS #### [facility] [address] [address] [address] Jayy Marquez Eosinophils/100 WBC (Bld) 2.6 % Normal 0.9-7.0 [facility] Comment on above: Performed By: #### C VDAGS #### [facility] [address] [address] [address] Jayy Marquez Erythrocyte distribution width (RBC) [Ratio] 14.7 % Normal 11.0-15.0 [facility] Comment on above: Performed By: #### C VDAGS #### [facility] [address] [address] [address] Jyay Marquez Hematocrit (Bld) [Volume fraction] 48.9 % Critically high 36.0-48.0 [facility] Comment on above: Performed By: #### C VDAGS #### [facility] [address] [place] [address] Dr. Jayy Marquez Hemoglobin (Bld) [Mass/Vol] 15.5 g/dL Normal 12.0-16.0 [facility] Comment on above: Performed By: #### C VDAGS #### [facility] [address] [place] [address] Dr. Jayy Marquez IG # 0.01 10e3/ul Normal 0.00-0.03 [facility] Comment on above: Performed By: #### C VDAGS #### [facility] [address] [place] [address] Dr. Jayy Marquez IG % 0.2 % Normal 0.0-0.5 [facility] Comment on above: Performed By: #### C VDAGS #### [facility] [address] [place] [address] Dr. Jayy Marquez LYMPH # 1.6 103/ul Normal 1.2-3.8 [facility] Comment on above: Performed By: #### C VDAGS #### [facility] [address] [place] [address] Dr. Jayy aMrquez Lymphocytes/100 WBC (Bld) 26.0 % Normal 20.5-60.0 [facility] Comment on above: Performed By: #### C VDAGS #### [facility] [address] [place] [address] Dr. Jayy Marquez MANUAL DIFF REQ NO Normal [facility] Comment on above: Performed By: #### C VDAGS #### [facility] [address] [place] [address] Dr. Jayy Marquez MCH (RBC) [Entitic mass] 31.5 pg Normal 26.7-34.0 [facility] Comment on above: Performed By: #### C VDAGS #### [facility] [address] [place] [address] Dr. Jayy Marquez MCHC (RBC) [Mass/Vol] 31.7 g/dL Normal 29.9-35.2 [facility] Comment on above: Performed By: #### C VDAGS #### [facility] [address] [address] [address] Jayy Marquez MCV (RBC) [Entitic vol] 99.4 fL Critically high 81.0-99.0 [facility] Comment on above: Performed By: #### C VDAGS #### [facility] [address] [place] [address] Dr. Jayy aMrquez MONO # 0.8 103/ul Normal 0.3-0.8 [facility] Comment on above: Performed By: #### C VDAGS #### [facility] [address] [place] [address] Dr. Jayy Marquez Monocytes/100 WBC (Bld) 12.4 % Critically high 1.7-12.0 [facility] Comment on above: Performed By: #### C VDAGS #### [facility] [address] [place] [address] Dr. Jayy Marquez NEUT # 3.6 103/ul Normal 1.4-6.5 [facility] Comment on above: Performed By: #### C VDAGS #### [facility] [address] [place] [address] Dr. Jayy Marquez Neutrophils/100 WBC (Bld) 58.1 % Normal 43.0-75.0 [facility] Comment on above: Performed By: #### C VDAGS #### [facility] [address] [place] [address] Dr. Jayy Marquez Platelet mean volume (Bld) [Entitic vol] 10.1 fL Normal 9.5-13.5 [facility] Comment on above: Performed By: #### C VDAGS #### [facility] [address] [place] [address] Dr. Jayy Marquez PLT 234 103/ul Normal 150-450 [facility] Comment on above: Performed By: #### C VDAGS #### [facility] [address] [place] [address] Dr. Jayy Marquez RBC 4.92 106/ul Normal 4.20-5.40 [facility] Comment on above: Performed By: #### C VDAGS #### [facility] [address] [place] [address] Dr. Jayy Marquez WBC 6.2 103/ul Normal 4.0-11.0 [facility] Comment on above: Performed By: #### C VDAGS #### [facility] [address] [place] [address] Dr. Jayy Marquez FREE T3on 10-30-2021 FREE T3 2.73 pg/mlL Normal 2.18-3.98 [facility] Comment on above: Performed By: #### C VDAGS #### [facility] [address] [place] [address] Dr. Jayy Marquez FREE T4on 10-30-2021 Free T4 [Mass/Vol] 1.25 ng/dL Normal 0.76-1.[address] [facility] Comment on above: Performed By: #### F T4 #### [facility] [address] [place] [address] Dr. Jayy Marquez PROF CHEM 8 (BAS METB)on Anion gap [Moles/Vol] 8.8 mmol/L Normal [facility] Comment on above: Performed By: #### C VDAGS #### [facility] [address] [place] [address] Dr. Jayy Marquez Calcium [Mass/Vol] 9.4 mg/dL Normal 8.5-10.[address] [facility] Comment on above: Performed By: #### C VDAGS #### [facility] [address] [place] [address] Dr. Jayy Maqruez Chloride [Moles/Vol] 104 mmol/L Normal 98-107 [facility] Comment on above: Performed By: #### C VDAGS #### [facility] [address] [place] [address] Dr. Jayy Marquez CO2 [Moles/Vol] 29.4 mmol/L Normal 21.0-32.0 [facility] Comment on above: Performed By: #### C VDAGS #### [facility] [address] [place] [address] Dr. Jayy Marquez Creatinine [Mass/Vol] 0.74 mg/dL Normal 0.55-1.02 [facility] Comment on above: Performed By: #### C VDAGS #### [facility] [address] [place] [address] Dr. Jayy Marquez EGFR-AF IRANIAN >60 Normal >=60 [facility] Comment on above: Performed By: #### C VDAGS #### [facility] [address] [place] [address] Dr. Jayy Marquez EGFR-NON AF IRANIAN >60 Normal >=60 [facility] Comment on above: Performed By: #### C VDAGS #### [facility] [address] [place] [address] Dr. Jayy Marquez Glucose [Mass/Vol] 108 mg/dL Critically high 74-106 T [facility] Comment on above: Performed By: #### C VDAGS #### [facility] [address] [place] [address] Dr. Jayy Marquez Potassium [Moles/Vol] 4.2 mmol/L Normal 3.5-5.1 [facility] Comment on above: Performed By: #### C VDAGS #### [facility] [address] [place] [address] Dr. Jayy Marquez Sodium [Moles/Vol] 138 mmol/L Normal 136-145 [facility] Comment on above: Performed By: #### C VDAGS #### [facility] [address] [place] [address] Dr. Jayy Marquez Urea nitrogen [Mass/Vol] 16.0 mg/dL Normal 7.0-18.0 [facility] Comment on above: Performed By: #### C VDAGS #### [facility] [address] [place] [address] Dr. Jayy Marquez Urea nitrogen/Creatinine [Mass ratio] 21.6 mg/mg Normal [facility] Comment on above: Performed By: #### C VDAGS #### [facility] [address] [place] [address] Dr. Jayy Marquez SGOTon 10-30-2021 AST [Catalytic activity/Vol] 11 U/L Critically low 15-37 [facility] Comment on above: Performed By: #### B MP #### [facility] [address] [place] [address] Dr. Jayy Marquez SGPTon 10-30-2021 ALT [Catalytic activity/Vol] 22 U/L Normal 14-59 [facility] Comment on above: Performed By: #### C VDAGS #### [facility] [address] [address] [address] Jayy Marquez TSHon 10-30-2021 TSH 1.593 uIU/mL Normal 0.358-3.740 [facility] Comment on above: Performed By: #### B MP #### [facility] [address] [place] [address] LUNG SCREENING (ANNUAL)on 09-26-2019 Patient Name: AKIL CHACON ---CT--- Exam Date/Time 09/26/2019 10:55:[address] Low Dose Lung Scrn Ordering Physician RAVINDRA THURMAN TAMMY KAY Accession Number [id number] CPT4 Codes G0297 (CT Low Dose Lung [...] CALHOUN Transcribed Date and Time: 09/26/2019 1:18 [facility], [place] Octavio, Juan Incoming Radiology Results From [facility] - 09/26/2019 1:28 PM EDT Patient Name: AKIL CHACON ---CT--- Exam Date/Time 09/26/2019 10:55:[address] Low Dose Lung Scrn Ordering Physician RAVINDRA THURMAN, SHELBI PERLA Accession Number [id number] CPT4 Codes G0297 (CT Low Dose Lung [...] ROBERT Transcribed Date and Time: 09/26/2019 1:18 [place], [place] CT Low Dose Lung Screeningon 09-26-2019 CT Low Dose Lung Screening Patient Name: AKIL CHACON [facility]: [id number] CT Exam Date/Time 09/26/2019 10:55:[address] Low Dose Lung Scrn Ordering Physician RAVINDRA THURMAN, SHELBI PERLA Accession Number [id number] CPT4 Codes G0297 (CT Low Dose Lung [...] Transcribed Date and Time: 09/26/2019 1:18 Normal [facility] OBSOLETEon 11-13-2016 OBSOLETE Refill (ENDMED) ----AKIL CHACON ([id number]) 1955 [facility] Time Provider Department11/13/16 CHARLOTTE RATLIFF During your [...] by MADELEINE ARIAS MA on 11/16/16 Normal [facility] Colonoscopy w/ or w/o biopsy on 01-12-2013 Colon polyps Internal hemorrhoids Normal appearing terminal ileum and colonic mucosa, s/p random biopsies [facility] This order was created through External Result Entry [facility] Vital Signs Date Time Vital Sign Value Performing Clinician Facility 04-27-2024 11:07-0500 Body height 162.6 cm Barbie Dhaliwal WILDLIFE ECOLOGIST Work Phone: [facility] 04-27-2024 11:07-0500 Body mass index (BMI) [Ratio] 30.55 kg/m2 Barbie Dhaliwal WILDLIFE ECOLOGIST Work Phone: [facility] 04-27-2024 11:07-0500 Body temperature 97.81 [degF] Barbie Dhaliwal WILDLIFE ECOLOGIST Work Phone: [facility] 04-27-2024 11:07-0500 Body weight 80.74 kg Barbie Dhaliwal WILDLIFE ECOLOGIST Work Phone: [facility] 04-27-2024 11:07-0500 Diastolic blood pressure 62 mm[Hg] Barbie Dhaliwal WILDLIFE ECOLOGIST Work Phone: [facility] 04-27-2024 11:07-0500 Heart rate 74 /min Barbie Dhaliwal WILDLIFE ECOLOGIST Work Phone: [facility] 04-27-2024 11:07-0500 Respiratory rate 16 /min Barbie Dhaliwal WILDLIFE ECOLOGIST Work Phone: [facility] 04-27-2024 11:07-0500 SaO2% (BldA) [Mass fraction] 97 % Barbie Dhaliwal WILDLIFE ECOLOGIST Work Phone: [facility] 04-27-2024 11:07-0500 Systolic blood pressure 110 mm[Hg] Barbie Dhaliwal WILDLIFE ECOLOGIST Work Phone: [facility] 03-28-2024 11:16-0500 Body height 162.6 cm Antonio Hopkins MD Work Phone: [facility] 03-28-2024 11:16-0500 Body mass index (BMI) [Ratio] 31.07 kg/m2 Antonio Hopkins MD Work Phone: [facility] 03-28-2024 11:16-0500 Body temperature 97.11 [degF] Antonio Hopkins MD Work Phone: [facility] 03-28-2024 11:16-0500 Body weight 82.1 kg Antonio Hopkins MD Work Phone: [facility] 03-28-2024 11:16-0500 Diastolic blood pressure 60 mm[Hg] Antonio Hopkins MD Work Phone: [facility] 03-28-2024 11:16-0500 Heart rate 71 /min Antonio Hopkins MD Work Phone: [facility] 03-28-2024 11:16-0500 Respiratory rate 22 /min Antonio Hopkins MD Work Phone: [facility] 03-28-2024 11:16-0500 SaO2% (BldA) [Mass fraction] 97 % Antonio Hopkins MD Work Phone: [facility] 03-28-2024 11:16-0500 Systolic blood pressure 116 mm[Hg] Antonio Hopkins MD Work Phone: [facility] 04-21-2023 14:10-0500 Blood Pressure Location Kale HANNA [facility] 04-21-2023 14:10-0500 Diastolic blood pressure 78 mm[Hg] Kale HANNA [facility] [place] 04-21-2023 14:10-0500 Heart rate 72 /min Kale HANNA [facility] [place] 04-21-2023 14:10-0500 Respiratory rate 16 /min Kale HANNA [facility] [place] 04-21-2023 14:10-0500 Systolic blood pressure 128 mm[Hg] Kale HANNA [facility] Encounters Encounter Date Encounter Type Care Provider Facility Start: 06-12-2024 End: 06-12-2024 Refill Barbie Isra WILDLIFE ECOLOGIST Work Phone: [facility] Comment on above: Type 2 diabetes rhea itus without complication, without long- term current use of insulin (CMS/HCC) (Primary Dx) Start: 06-05-2024 End: 06-05-2024 Clinisync Result Encounter Barbie Isra WILDLIFE ECOLOGIST Work Phone: [facility] External Department Unsolicited Start: 06-05-2024 End: 06-05-2024 Clinisync Result Encounter Barbie Isra WILDLIFE ECOLOGIST Work Phone: [facility] External Department Unsolicited Start: 04-27-2024 End: 04-27-2024 Transitional care manage srvc 14 day discharge Barbie Isra WILDLIFE ECOLOGIST Work Phone: [facility] Comment on above: COPD with acute exac [...] Start: 06-04-2023 End: 06-05-2023 ambulatory [facility] R ISIS [facility] Start: 05-12-2023 End: 05-12-2023 ambulatory Kale R Nill Facility:[facility] Start: 05-12-2023 End: 05-13-2023 ambulatory Kale HANNA [facility] Work Phone: Start: 05-12-2023 End: 05-12-2023 Departed Referred MD Kale Hanna Work Phone: [facility] Start: 04-21-2023 End: 04-22-2023 ambulatory Kale R NILL Facility:[facility] Start: 04-21-2023 End: 04-21-2023 Patient encounter procedure Kale HANNA General [facility] Start: 04-02-2023 ambulatory Kale HANNA Facility:[facility] Start: 09-22-2022 Evaluation and manag ement of inpatient DR DAYAMI FULLER . Facility:[facility] Start: 09-01-2022 End: 09-02-[address] HANDY KEATING Facility:[facility] Start: 03-23-2022 End: 03-23-2022 ambulatory ALIS HEAD . Facility:[facility] Start: 03-23-2022 Encounter for preprocedural cardiovascular examination ALIS HEAD . [facility] Start: 03-23-2022 Encounter for preprocedural laboratory examination ALIS HEAD . [facility] Start: 03-17-2022 End: 03-18-2022 ambulatory ALIS HEAD . Facility:[facility] Start: 03-17-2022 End: 03-18-2022 Encounter for preprocedural laboratory examination ALIS HEAD . Facility:[facility] Start: 03-04-2022 End: 03-05-[address] HANDY KEATING Facility:[facility] Start: 10-30-2021 End: 10-31-[address] ANTONIO HOPKINS Facility:[facility] Start: 09-26-2019 End: 09-26-2019 Subsequent hospital visit by physician Shelbi Thurman Work Phone: [facility] Comment on above: Cigarette nicotine d ependence with nicotine-induced disorder Start: 09-08-2018 Patient encounter procedure Lupillo Edwinirena [facility] Start: 04-04-2018 Patient encounter procedure Eddi Zunigathelmarose [facility] Start: 03-08-2018 Patient encounter procedure MONICA FIGUEROA [facility] Start: 03-07-2018 Patient encounter procedure MONICA NGAFA [facility] Start: 02-22-2018 Patient encounter procedure Ottoniel Fuchs [facility] Start: 09-14-2017 [facility] Start: 08-14-2017 Emergency department patient visit MARTIN TASIA [facility] Start: 08-13-2017 Patient encounter procedure Ottoniel Fuchs [facility] Start: 01-12-2013 Conversion Encounter Ottoniel jackson MD Work Phone: [facility] Start: 01-12-2013 Legacy Encounter Ottoniel osborn MD Work Phone: [facility] Procedures Date Procedure Procedure Detail Performing Clinician Start: 06-05-2024 ALL CBC WITH AUTO DIFF Barbie Isra WILDLIFE ECOLOGIST Work Phone: Start: 01-31-2024 ALL HEMOGLOBIN Generic External Data [...] Screening for malign ant neoplasm of colon [facility] Start: 12-24-2025 DTaP/Tdap/Td vaccine (2 - Td) DTaP/Tdap/Td vaccine (2 - Td) [facility] [place], [place] Start: 03-28-2025 Medicare Annual Well ness (AWV) Medicare Annual Wellness (AWV) [facility] Start: 09-26-2024 End: 09-26-2024 Patient encounter procedure 09/26/2024 1:00 PM EDT Office Visit [facility] [address] [place] [id number] Antonio Hopkins MD [address] [place] [address] [facility] Start: 06-24-2024 End: 04-27-2025 DXA Skeletal system Views for bone density DEXA bone density Imaging Routine Osteopenia, unspecified location Menopause Expected: 06/24/2024 (Approximate), Expires: 04/27/2025 [facility] Comment on above: Expected: 06/24/2024 (Approximate), Expires: 04/27/2025 Start: 06-24-2024 End: 06-25-2025 MG Breast - bilateral Screening Bilateral screening mammogram Imaging Routine Encounter for screening mammogram for malignant neoplasm of breast Expected: 06/24/2024 (Approximate), Expires: 06/25/2025 [facility] Work Phone: Comment on above: Expected: 06/24/2024 (Approximate), Expires: 06/25/2025 Start: 06-23-2024 Screening for malign ant neoplasm of breast Mammogram [facility] Start: 04-27-2024 End: 04-27-2025 25-hydroxyvitamin D3 [Mass/volume] in Serum or Plasma Vitamin D 25 hydroxy Lab Routine Osteopenia, unspecified location Expected: 04/27/2024 (Approximate), Expires: 04/27/2025 [facility] Comment on above: Expected: 04/27/2024 (Approximate), Expires: 04/27/2025 Start: 04-27-2024 End: 04-27-2025 CBC W Auto Differential panel - Blood CBC and differential Lab Routine Centrilobular emphysema (CMS/HCC) Expected: 04/27/2024 (Approximate), Expires: 04/27/2025 [facility] Comment on above: Expected: 04/27/2024 (Approximate), Expires: 04/27/2025 Start: 04-27-2024 End: 04-27-2025 Comprehensive metabolic 2000 panel - Serum or Plasma Comprehensive metabolic panel Lab Routine Centrilobular emphysema (CMS/HCC) HTN (hypertension), benign (CMS/HCC) Prediabetes Osteopenia, unspecified location Expected: 04/27/2024 (Approximate), Expires: 04/27/2025 [facility] Comment on above: Expected: 04/27/2024 (Approximate), Expires: 04/27/2025 Start: 04-27-2024 End: 04-27-2025 Hemoglobin A1c/Hemoglobin.total in Blood Hemoglobin A1c Lab Routine Prediabetes Expected: 04/27/2024 (Approximate), Expires: 04/27/2025 [facility] Comment on above: Expected: 04/27/2024 (Approximate), Expires: 04/27/2025 Start: 04-27-2024 End: 04-27-2025 Lipid 1996 panel - Serum or Plasma Lipid panel Lab Routine Prediabetes Expected: 04/27/2024 (Approximate), Expires: 04/27/2025 [facility] Comment on above: Expected: 04/27/2024 (Approximate), Expires: 04/27/2025 Start: 04-27-2024 End: 04-27-2025 Microalbumin/Creatinine panel in random Urine Microalbumin / creatinine, urine ratio Lab Routine HTN (hypertension), benign (CMS/HCC) Prediabetes Expected: 04/27/2024 (Approximate), Expires: 04/27/2025 [facility] Comment on above: Expected: 04/27/2024 (Approximate), Expires: 04/27/2025 Start: 04-27-2024 End: 04-27-2025 Urinalysis complete panel - Urine Urinalysis with reflex microscopic (clean catch) Lab Routine HTN (hypertension), benign (CMS/HCC) Prediabetes Expected: 04/27/2024 (Approximate), Expires: 04/27/2025 [facility] Comment on above: Expected: 04/27/2024 (Approximate), Expires: 04/27/2025 Start: 03-28-2024 End: 03-28-2024 Patient encounter procedure [facility] Comment on above: Arrived Start: 12-30-2023 Lipid panel Lipid screen [place], [place] Start: 12-26-2023 Influenza vaccination Influenza Vacc ine (#1) [facility] Start: 02-11-2023 Screening for malign ant neoplasm of cervix Cervical cancer screen [place], [place] Start: 01-12-2023 Screening for malign ant neoplasm of colon Colon cancer screen colonoscopy [place], [place] Start: 02-23-2020 Screening for malign ant neoplasm of breast Breast cancer screen [place], [place] Start: 02-13-2020 Pneumococcal 65+ yea rs Vaccine (1 of 1 - PPSV23) Pneumococcal 65+ years Vaccine (1 of 1 - PPSV23) [place], [place] Start: 02-08-2020 End: 02-08-2020 Office Visit 02/08/2020 Office Visit Family Medicine Ottoniel Fuchs MD [address] [facility] [place] [address] [facility] [place] Start: 12-30-2019 Creatinine measurement Creatinine mo nitoring [place], [place] Start: 12-30-2019 HbA1c (Bld) [Mass fraction] A1C test (Diabetic or Prediabetic) [place], [place] Start: 12-30-2019 Potassium monitoring Potassium monit oring [place], [place] Start: 12-30-2019 TSH Qn TSH testing [place], [place] Start: 09-09-2019 Screening for malign ant neoplasm of lung Low dose CT lung screening [place], [place] Start: 08-09-2019 Annual Wellness Visi t (AWV) Annual Wellness Visit (AWV) [place], [place] Start: 02-11-2019 Medicare Annual Well ness (AWV) Medicare Annual Wellness (AWV) [facility] Start: 1955 Screening for malign ant neoplasm of colon [facility] Immunizations Immunization Date Immunization Notes Care Provider Skyla traore 03-01-2024 influenza, high dose seasonal, preservative-free Barbie Isra WILDLIFE ECOLOGIST Work Phone: [facility] 03-01-2024 Fluzone High-Dose 0. 5 ML suspension prefilled syringe Barbie Dhaliwal WILDLIFE ECOLOGIST Work Phone: [facility] 03-08-2023 influenza virus vacc ine, unspecified formulation Kale HANNA [facility] [place] 03-08-2023 Influenza, High-dose Seasonal, Quadrivalent, Preservative Free Barbie Dhaliwal WILDLIFE ECOLOGIST Work Phone: [facility] 02-26-2023 RSV, recombinant, protein subunit RSVpreF, adjuvant reconstitu, 120mcg/0.5mL, PF (Arexvy) Barbie Dhaliwal WILDLIFE ECOLOGIST Work Phone: [facility] 11-02-2022 Pneumococcal Conjuga te PCV 20 Barbie Dhaliwal WILDLIFE ECOLOGIST Work Phone: [facility] 02-04-2021 SARS-CoV-2 (COVID-19 ) Ad26 vaccine, recombinant Kale HANNA [facility] [place] Comment on above: Result Comment: 2022: [id number] 03-30-2019 Seasonal, quadrivale nt, recombinant, injectable influenza vaccine, preservative free [facility] [place] 12-29-2018 zoster vaccine recombinant [facility] [place] 02-11-2018 influenza virus vacc ine, unspecified formulation [facility] , [place] 02-11-2018 influenza, injectabl e, quadrivalent, contains preservative [facility] [place] 02-11-2018 zoster vaccine recombinant [facility] [place] 12-25-2015 tetanus toxoid, redu florentino diphtheria toxoid, and acellular pertussis vaccine, adsorbed [facility] [place] 02-12-2015 pneumococcal polysaccharide vaccine, 23 valent [facility] [place] 02-12-2015 zoster vaccine, live [facility] [place] 01-24-2015 pneumococcal conjuga te vaccine, 13 valent Barbie Dhaliwal WILDLIFE ECOLOGIST Work Phone: [facility] Payers Date Payer Category Payer Self-pay 2023 Medicare [employer] [id number] 2023-Present [address] [place] [address] [id number] 2023 Medicare (Managed Care) [employer] M EDICARE ADVANTAGE [id number] 2023 Unknown [id number] 2019 Medicare MEDICARE MEDICAR E PART A AND B xxxxxxxxxxx 2019-Present [phone] [address] [address] [place] [address] xxxxxxxxxxx [id number] 2019 Private Health Insurance AETROBERTO Surinder [facility] MEDICARE SUPP xxxxxxxxxx 2019-Present [phone] [address] [place] [address] xxxxxxxxxx [id number] 1960 Unknown [id number] [id number] .1960 Unknown [id number] .8 1959 Medicare [id number] 1959 Private Health Insurance CLI [id number] 1954 Unknown [id number] [id number] .8 1954 Unknown [id number] 2.16840.1.781903.3.579.2 .1954 Unknown [id number] 2.16840.1.325317.3.579.2 .668 1954 Unknown [id number] 2.16.840.1.989726.3.579.2 .668 1954 Unknown [id number] 2.16.840.1.914958.3.579.2 .668 1954 Unknown [id number] 2.16.840.1.236185.3.579.2 .668 1954 Unknown [id number] 2.16.840.1.500896.3.579.2 .668 1954 Unknown [id number] 2.16.840.1.634949.3.579.2 .593 1954 Unknown [id number] 2.16.840.1.957296.3.579.2 .593 1954 Unknown [id number] 2.840.1.497141.3.579.2 .593 1954 Unknown [id number] 2.16.840.1.180089.3.579.2 .593 1954 Unknown [id number] 2.16.840.1.616322.3.579.2 .593 1954 Unknown [id number] 2.16.840.1.933876.3.579.2 .593 1954 Unknown [id number] 2.16.840.1.728377.3.579.2 .727 1954 Unknown [id number] 2.16.840.1.985710.3.579.2 .727 1954 Unknown [id number] 1955 Unknown [id number] 1955 Unknown [id number] 1955 Unknown [id number] Unknown Social History Date Type Detail Facility Start: 08-02-1971 Tobacco smoking status NHIS Current every day smoker [place] Start: 08-02-1971 End: 09-24-2022 History of tobacco use Cigarette [place] Start: 08-09-2019 End: 09-26-2023 Cigarettes smoked current (pack per day) - Reported [facility] Start: 08-09-2019 Alcohol intake Current drinker of alcohol (finding) [place] Start: 12-29-2018 History SDOH Alcohol Frequency 4 [place] Start: 12-29-2018 History SDOH Alcohol Std Drinks 1 [place] Start: 12-29-2018 History SDOH Social Connections Get Together 2 [place] Start: 12-29-2018 History SDOH Social Connections Living 3 [place] Start: 12-29-2018 History SDOH Physical Activity DPW 0 [place] Start: 12-29-2018 History SDOH Financial 5 [place] Start: 08-16-2017 Tobacco Comment Less than a pack a day [place] Start: 08-16-2017 Alcohol Comment Occasionally [place] Start: 1955 Sex Assigned At Not on file [place] [facility] consumption unknown [facility] Start: 09-26-2023 End: 03-28-2024 Gender identity Not on file [facility] Start: 04-21-2023 End: 09-27-2023 Tobacco smoking status Ex-smoker (finding) [facility] Tobacco smoking status Never Gener al [facility] Start: 1955 Sex Assigned At Female [facility] Start: 09-24-1972 End: 09-24-2022 History of tobacco use Current smoker [facility] Start: 09-27-2023 Tobacco use and exposure Smokeless tobacco non-user [facility] Do you belong to any clubs or organizations such as mormon groups, unions, fraternal or athletic groups, or [...] Functional Status N/A General Barr leandro Nam Clinical Notes 04-21-2023 to 04-27-2024 Barbie Dhaliwal NP - 04/27/2024 11:29 AM Lynda Dhaliwal NP - 04/27/2024 11:28 AM Lynda Dhaliwal NP - 04/27/2024 11:00 AM Lynda Dhaliwal NP - 04/27/2024 6:49 AM ESTPatient Instructions Note Date & Type Note Facility 04-27-2024 History of Present illness Narrative Associated Problem(s): Tobacco user The [...] trigger Associated Problem(s): COPD with acute exacerbation (CMS/HCC) Recent hospitalization [...] 50 MCG/ACT nasal spray 2 sprays, Daily Oaewiujzegl-Lcfowkogw-Wnntna (Trelegy Ellipta) 100-62.5-25 MCG/ACT aerosol powder Inhale [...] Feeling much better documented in this encounter [facility] 04-27-2024 Instructions Barbie Dhaliwal NP - 04/27/2024 11:00 AM EST Mammogram and bone density : late May early June, [facility] should call, , ext [phone] Labs mid 06/20 documented in this encounter [facility] 03-28-2024 History of Present illness Narrative Associated Problem(s): Medicare annual wellness [...] daily Aspirin therapy. documented in this encounter [facility] 04-21-2023 Note Chief Complaint consultation for screening colonoscopy [facility] Staff 67 year old female presents [...] 1 puff(s), Inhalation, Daily Flonase 0.05 mg/inh [place], 100 mcg, Nasal, Daily levothyroxine 112 mcg [...] of lung: Brother. (more content not included)... [facility] Comment on above: Result Comment: Elec tronically Signed By: ISIS ALCANTAR, Kale Thurman\Date and Time Signed: 04/21/23 14:46 EST Evaluation + Plan note No data available for this section General Surgery [place] Evaluation note No assessment inform ation available [facility] Work Phone: Evaluation note Diagnosis HTN (hypertension), benign (CMS/HCC)- [...] visit, subsequent- Primary documented in this encounter [facility] HealthcareEvaluation note* Diagnosis HTN (hypertension), benign (CMS/HCC)- Primary Essential [...] Tobacco use disorder documented in this encounter [facility] HealthcareEvaluation note* Diagnosis HTN (hypertension), benign (CMS/HCC)- Primary Essential [...] climacteric states Tobacco user Tobacco use disorder Type 2 diabetes mellitus without complication, without long-term current use of insulin (CMS/HCC)- Primary [facility] No data available for this section General Surgery [facility] Progress note No data available for this section General Surgery [facility] Summary Purpose Family History No Family History Records FoundNo Family History Records FoundNo Family History Records FoundNo Family History Records FoundNo Family History Records Found No data available for this section No Family History Records FoundNo Family History Records FoundNo Family History Records Found Advance Directives Documents on File Type Date Recorded Patient 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 [address] [address] Assessments Diagnosis Cigarette nicotine dependence with nicotine-induced disorder Unspecified drug-induced mental disorder Additional Source Comments INFORMATION SOURCE (unrecogn ized section and content) DATE CREATED AUTHOR 10/20/2017 [facility] DATE CREATED AUTHOR AUTHOR'S ORGANIZ ATION 04/04/2018 [facility] DATE CREATED AUTHOR AUTHOR'S ORGANIZ ATION 04/09/2018 [facility] DATE CREATED AUTHOR AUTHOR'S ORGANIZ ATION 09/26/2019 [facility] DATE CREATED AUTHOR AUTHOR'S ORGANIZ ATION 10/02/2022 [facility] DATE CREATED AUTHOR AUTHOR'S ORGANIZ ATION 06/15/2023 [facility] DATE CREATED AUTHOR AUTHOR'S ORGANIZ ATION 06/15/2023 [facility] DATE CREATED AUTHOR AUTHOR'S ORGANIZ ATION 05/04/2024 [facility] dical Specialists EPIC Care Teams (unrecognized sec tion and content) Sanipractic Physician Relationship Specialty Start Date End Date Ottoniel Fuchs MD [address] [facility] [address] [place] [address] PCP - General 12/21/13 Team Status: Inactive Member Role Status Dates Kale Hanna MD FACS Attending Provider Active Start: May 12, 2023 End: May 12, 2023 Sanipractic Physician Relationship Specialty Start Date End Date Antonio Hopkins MD [address] [place] [phone] PCP - General Family Medicine 10/21/22 Antonio Hopkins MD [address] [place] [address] PCP - Jaycee DAVIS 11/25/23 Sanipractic Physician Relationship Specialty Start Date End Date Antonio Hopkins MD [address] [place] [phone] PCP - General Family Medicine 10/21/22 Antonio Hopkins MD [address] [place] [address] PCP - Jaycee DAVIS 11/25/23 Sanipractic Physician Relationship Specialty Start Date End Date Antonio Hopkins MD [address] [place] [phone] PCP - General Family Medicine 10/21/22 Antonio Hopkins MD [address] [place] [address] PCP Bernard Champion MA 11/25/23 Sanipractic Physician Relationship Specialty Start Date End Date Antonio Hopkins MD [address] [place] [phone] PCP - General Family Medicine 10/21/22 Antonio Hopkins MD [address] [place] [phone] PCP - Jaycee DAVIS 11/25/23 Delmar Bowen MA [facility] 04/18/24 Sanipractic Physician Relationship Specialty Start Date End Date Antonio Hopkins MD [address] [place] [phone] PCP - [facility] 10/21/22 Delmar Bowen MA [facility] 04/18/24 Sanipractic Physician Relationship Specialty Start Date End Date Antonio Hopkins MD [address] [place] [phone] PCP - [facility] Family Medicine 10/21/22 Delmar Bowen MA [facility] 04/18/24 Goals (unrecognized section and content) Goals may be documented in a n alternate section Reason for Visit (unrecogniz ed section and content) Reason Comments Medicare Annual Wellness Visit Subsequen t Wellness Reason Onset Date Comments Med Refill 06/12/2024 FOR RECORDS PERTAINING TO PATIENTS WHO ARE [...] BE BASED ON THE PRIMARY CLINICAL RECORDS. [employer] [facility]. provides no warranty or guarantee of the accuracy or completeness of information in this document.
== END 2024-06-27 10:51 | disposition home or self-care (01) ==
LOC: RAD 10:51
PROVIDERS: PCP Family Medicine; Visit Provider Nurse Practitioner
DX: M85.80 Other specified disorders of bone density and structure, unspecified site (principal); Z78.0 Asymptomatic menopausal state
CPT/HCPCS: 77080

== ENCOUNTER 2024-07-10 13:00 | Outpatient (OUT) | payer MEDICARE, SELFPAY ==
--- NOTE | 2024-07-10 13:03 | CT_ITS ---
[address] [address] Patient Name: ERICA CHACON MRN: [id number] date: 1955 Sex: F Assigned Patient Location: CT Current Patient Location: CT Accession/Order Number: [id number] Exam Date: 07/10/2024 13:47 Report Date: 07/10/2024 13:51 At the request of: ALIS HEAD DO Procedure: CT lung screening low-dose CT CHEST WITHOUT CONTRAST, LOW DOSE SCREENING: CLINICAL DATA: A 68-year old current smoker COMPARISON: CT chest 07/22/2023 TECHNIQUE: Noncontrast axial CT scan images of the chest were obtained under the low dose screening CT protocol. Coronal and sagittal reconstructed images were also submitted. FINDINGS: Mediastinum : Suboptimal evaluation due to low-dose technique. Thoracic aorta appears normal in caliber. Pulmonary trunk appears nondilated. Small pericardial effusion. No lymphadenopathy. The esophagus is grossly unremarkable. Lungs: No focal consolidation, pneumothorax or pleural effusion. Trachea and distal airways appear patent. Diffuse bronchial wall thickening with bronchiectasis involving the lower lobes.. Scattered areas of lung scarring. Emphysema. Scattered tree-in-bud nodularity predominantly involving the right lung. New area of presumed masslike scarring involving the basilar segments of the right lower lobe measuring 23 mm in greatest axial dimension. Please see series 4 image 19. Upper abdomen: No acute findings. Bony thorax and chest wall: Soft tissues surrounding the chest wall demonstrate no acute findings. Osseous structures demonstrate degenerative change. CT/CT lung screening low-dose IMPRESSION: NEW AREA OF PRESUMED MASSLIKE SCARRING INVOLVING THE BASILAR SEGMENTS OF THE RIGHT LOWER LOBE MEASURING 23 MM IN GREATEST AXIAL DIMENSION. SCATTERED TREE-IN-BUD NODULARITY. THERE IS ASSOCIATED EMPHYSEMA FINDINGS SUGGEST BRONCHIOLITIS LIKELY RELATING TO SMOKING. LUNG - RADS Version 1.0 Assessment: Category 4B, Very Suspicious (Findings for which additional diagnostic testing and/or tissue sampling is recommended). Management: Chest CT with or without contrast, PET/CT and/or tissue sampling depending on the probability of malignancy and comorbidities. PET/CT may be used when there is a > 8 mm solid component. For new large nodules that develop on an annual repeat screening CT, a 1 month LDCT may be recommended to address potentially infectious or inflammatory conditions. Impression dictated by: Bob Painting Jr., D.O.07/10/2024 1:51 PM Dictation Location: [place] [address] Electronically authenticated by: [id number] Y Date: 07/10/2024 13:51
== END 2024-07-10 13:01 | disposition home or self-care (01) ==
LOC: CT 13:00
PROVIDERS: PCP Family Medicine; Visit Provider Internal Medicine
DX: F17.219 Nicotine dependence, cigarettes, with unspecified nicotine-induced disorders (principal); R91.8 Other nonspecific abnormal finding of lung field
CPT/HCPCS: 71271

== ENCOUNTER 2024-08-11 12:48 | Outpatient (OUT) | payer MEDICARE, SELFPAY ==
--- NOTE | 2024-08-11 12:50 | CT_ITS ---
The [address] [address] Patient Name: ERICA CHACON MRN: [id number] date: 1955 Sex: F Assigned Patient Location: CT Current Patient Location: CT Accession/Order Number: [id number] Exam Date: 08/11/2024 14:51 Report Date: 08/11/2024 15:03 At the request of: ALIS HEAD DO Procedure: CT chest wo con CT Chest without contrast TECHNIQUE: Axial imaging with 2-D reconstruction. The CT exam was performed using one or more the following dose reduction techniques: Automated exposure control, adjustment of the MA and/or Kv according to patient size, or use of the iterative reconstruction technique. History: Follow-up pulmonary nodules. COMPARISON: CT lung screening 07/10/[address] 07/22/2023 THYROID: Unremarkable TRACHEA AND BRONCHI: Diffuse bronchial wall thickening. Bronchiectasis lower lobes. ESOPHAGUS: Unremarkable. HEART: Within normal limits PERICARDIAL EFFUSION: Small CORONARY ARTERY CALCIFICATION: None MEDIASTINUM: No adenopathy. No pneumoperitoneum. No mediastinal hematoma. PULMONARY GREGORY: No hilar mass or adenopathy is seen. THORACIC AORTA Unremarkable LUNG NODULE similar small nodularity. LUNGS: Scattered lung scarring. Emphysema. Scattered tree-in-bud nodularity involving the right lung. PLEURAL EFFUSION: None PNEUMOTHORAX: No pneumothorax seen. CHEST WALL: Bilateral breast implantation AXILLA:Unremarkable BONY STRUCTURES Intact UPPER ABDOMEN: Images of the upper abdomen are noncontributory. CT/CT chest wo con IMPRESSION: Redemonstration of a band of nodular consolidation posterior portion of the right lung base. Not significantly change from recent prior examination. This is a newly developed finding compared to Prior examination 07/22/2023. This may still represent scarring, however malignancy should be excluded. May be consideration for PET/CT imaging. A similar tree-in-bud nodularity of the right lung. Impression dictated by: Jovanny Swanson M.D.08/11/2024 3:03 PM Dictation Location: [place] [address] Electronically authenticated by: [id number] Y Date: 08/11/2024 15:03
== END 2024-08-11 12:49 | disposition home or self-care (01) ==
LOC: CT 12:48
PROVIDERS: PCP Family Medicine; Visit Provider Internal Medicine
DX: R91.8 Other nonspecific abnormal finding of lung field (principal)
CPT/HCPCS: 71250

== ENCOUNTER 2024-09-04 14:20 | Outpatient (OUT) | payer MEDICARE, SELFPAY ==
--- NOTE | 2024-09-04 14:24 | PE_ITS ---
The [address] [address] Patient Name: ERICA CHACON MRN: [id number] date: 1955 Sex: F Assigned Patient Location: PETCT Current Patient Location: Accession/Order Number: [id number] Exam Date: 09/05/2024 08:48 Report Date: 09/05/2024 09:12 At the request of: ALIS HEAD DO Procedure: PET skull to mid thigh PET/CT WITH FUSION COMPARISON: CT chest 08/11/2024 CLINICAL DATA: Right lower lobe nodular consolidation Following the intravenous administration of 12.48 mCi of FDG, SPECT imaging in 3 planes was performed from the level the orbits through the groin. The patient's blood glucose level at the time of injection was 109 mg/dL. Spiral unenhanced CT was also performed for anatomic localization. The PET and CT images were fused. This CT exam was performed using one or more following dose reduction techniques: Automated exposure control, adjustment of the mA and/or kV according to patient size, or use of iterative reconstruction technique. NECK: No enlarged or hypermetabolic lymph nodes are identified. Mild increased uptake is seen within the oral cavity, asymmetric posteriorly on the left near the palatine tonsil. It is uncertain if this is still physiologic. Physiologic activity is also present at the larynx. Bilateral maxillary mucosal thickening and/or fluid is seen. CHEST: No enlarged or hypermetabolic mediastinal, hilar or axillary lymph nodes are present. No pathologic pulmonary FDG uptake is seen including the area of concern on the recent comparison chest CT at the right lower lobe. This finding does show some interval improvement on the CT images. There is mild increased uptake at the back in the vicinity of the proximal ribs, left greater than right. This may be physiologic. ABDOMEN/PELVIS: There are no FDG avid hepatic or adrenal lesions. No enlarged or pathologic or abdominal or pelvic lymph nodes are present. There is physiologic activity involving the urinary tract and bowel. PET/PET skull to mid thigh IMPRESSION: IMPROVING PARENCHYMAL CHANGES AT THE RIGHT LOWER LOBE WHERE THERE IS NO ASSOCIATED HYPERMETABOLISM. ASYMMETRIC INCREASED UPTAKE AT THE LEFT ORAL CAVITY IN THE REGION OF THE TONSIL. THIS MAY BE PHYSIOLOGIC HOWEVER CLINICAL CORRELATION IS SUGGESTED. NO OTHER SIGNIFICANT PET SCAN FINDINGS. Impression dictated by: Mary Ordaz M.D. 09/05/2024 9:12 AM Dictation Location: [place] [address] Electronically authenticated by: [id number] Y Date: 09/05/2024 09:12
== END 2024-09-04 14:21 | disposition home or self-care (01) ==
LOC: PETCT 14:20
PROVIDERS: PCP Family Medicine; Visit Provider Internal Medicine
DX: R91.8 Other nonspecific abnormal finding of lung field (principal)
CPT/HCPCS: 78815; A9552

== ENCOUNTER 2024-10-06 07:59 | Outpatient (OUT) | payer MEDICARE, SELFPAY ==
--- OUTSIDE RECORDS SUMMARY | 2024-07-11 02:49 | XMS_ITS ---
Author Organization [facility] in [place] Address [address] [place] [address] Care Team Providers Care Datacap Developer Name Role Phone Antonio Riggins MD Primary Care Provider Unavailab Sukh Russell Unavailable [phone] REASON FOR VISIT LDCT Results Encounters Encounter Location Date Provider Diagnosis Pulmonary Medicine [place] [address] [place] [address] 07/11/2024 Sukh Lovelace Multiple pulmonary nodules R91.8 Assessments Encounter Date Diagnosis (ICD Code) Assessment Notes Treatment Notes Treatment Clinical Notes Section Notes 07/11/2024 Multiple pulmonary nodules (ICD-10 - R91.8) Plan Of Treatment Next Appt Details Provider Name:Sukh Lovelace, 10/10/2024 01:30:00 PM, [address] [place], [address], Progress Notes * Akil CHACON ADOB:1955 ( 68 yo F)Acc No.[id number]:07/11/2024 Patient: Akil PAGAN :1955 A ge:68 Y S ex:Female Address:[address] [place], [place], Subjective: * Chief Complaints: * L DCT Results * Medical History: * Surgical History: * Hospitalization/Major Diagno stic Procedure: * Medications: Objective: * Vitals: * Physical Examination: Assessment: * Assessment: 1. M ultiple pulmonary nodules - R91.8 (Primary) Plan: * Treatment: * Procedure Codes: * true * Date: Generated for Stas lópez/Nader/Kylah on: 0 10/06/2024 08:02 AM EDT
--- OUTSIDE RECORDS SUMMARY | 2024-08-23 06:00 | XMS_ITS ---
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 Please evaluate for cardiac causes of dyspnea. Diagnosis 1 Shortness of breath (R06.02) Referral Organization [facility] [place] Referring Provider First Name Skuh Referring Provider Last Name Radu Referring Provider Speciality Pulmonolog y Referred Provider Darinel Joya Referred Provider Specialty Cardiology General Notes Tyler Ritchie 08/23 02:10:47 PM >Referral was given to Gwen Del Angel at [facility] Cardiology. Gwen will contact the patient to schedule an appt.Chau Riley 09/04/2024 09:46:26 AM >Per Agata at [facility]-Patient is scheduled for an appt. on 09/06/2024 at 1430. Patient is aware of the appt. date and time via telephone.Chau Riley 09/06/2024 04:41:26 PM >Consult note received from [facility]. Scanned to . Referral Priority Routine Referral Appointment Date 09/06/2024 REASON FOR VISIT 6 MO-COPD, BRONCHIECTASIS Medications Medication SIG (Take, Route, Frequency, Duration) Notes Start Date End Date Status Trelegy Ellipta 100-62.5-25 MCG/ACT 1 puff Inhalation Once a day for 90 days Rinse after use Active Synthroid 112 MCG 1 tablet in the morning on an empty stomach Orally Once a day Active Sodium Chloride 0.9 % 3mL Inhalation TID for 90 days Dispense 270 ampules Active Multi Complete - as directed Orally Active Losartan Potassium 50 MG 1 tablet Orally Once a day Active Handicapped Tag - 1 year Dx J96.11 (Chr onic hypoxic respiratory failure). Duration: 1 year 11/04/2022 Active Fluticasone Propionate 50 MCG/ACT 1 spray in each nostril Nasally Once a day Active Aspirin 81 81 MG 1 tablet Orally Once a day Active amLODIPine Besylate 5 MG Oral for 30 Days Active Albuterol Sulfate HFA 108 (90 Base) MCG/ACT 2 puffs as needed Inhalation every 4 hrs Active Calcium 500 MG 1 tablet with meals Orally Twice a day Active Social History Tobacco Use: Social History Observation Description Date Details (start date - stop date) Current Smoker NA - NA Tobacco Control (Standard) Question Answer Notes Tobacco use: Current every day smoker Additional Findings: Tobacco user Light cigarett e smoker (1-9 cigs/day) Vital Signs Temperature 96.7 degrees Fahrenheit 08/24/19 25 Blood pressure systolic 154 mm Hg 08/24/19 25 Blood pressure diastolic 84 mm Hg 025 Heart Rate 77 /min 08/23/2024 Respiratory Rate 18 /min 08/23/2024 Height 64 in 08/23/2024 Weight 172.2 lbs 08/23/2024 BMI 29.55 kg/m2 08/23/2024 Oximetry 92 % 08/23/2024 Encounters Encounter Location Date Provider Diagnosis Pulmonary Medicine [address] [address] 08/23/2024 Sukh Lovelace Multiple pulmonary nodules R91.8 ; Centrilobular emphysema J43.2 ; Bronchiectasis, uncomplicated J47.9 ; Cigarette nicotine dependence with nicotine-induced disorder F17.219 ; Shortness of breath R06.02 ; half-way (current) use of inhaled steroids Z79.51 and Obesity, class 1 E66.811 Assessments Encounter Date Diagnosis (ICD Code) Assessment Notes Treatment Notes Treatment Clinical Notes Section Notes 08/23/2024 Multiple pulmonary nodules (ICD-10 - R91.8) Prior CT chest, history of pulmonary nodules, largest 6mm in LLL CTA 07/22/2023, unchanged compared to 09/29/2022. LDCT 07/10/2024 noted no change in size or orientation of these nodules, but there was a new 2.3cm RLL consolidation along with other RLL tree-in-bud findings. F/U CT chest 08/11/2024 shows no change - neither improved or worsening on lung windows. Patient stated that she felt ill preceeding the CT 07/10/2024 with respiratory symptoms. However, she is an active smoker - suspicion for neoplasm remains higher than the average population. As there has not been any improvement over the past month, the recommended option is a PET. An alternative presented to her is a 3 month F/U CT chest (which would be due then mid-September 2024). Patient voiced she wished to proceed with PET. Paperwork started, instructions provided to the patient. Further plan of care depends on results of the PET. 08/23/2024 Centrilobular emphysema (ICD-10 - J43.2) Prior treatment: Trelegy 100 >>>>> Breo 100 She previously had significant improvement in Trelegy over Breo. However, over the past several months, her breathing has worsened. Reviewed that PFT from 2023 was not significantly changed compared to 2018. Discussed with patient that this could be worsening COPD or something else is going on, such as cardiac disease. From a COPD standpoint, there are not many options left. She is not a Dupixent candidate - eosinophils have ranged from 0-100 over the past several years. Discussed Ohtuvayre (ensifentine), a novel PDE3/PDE4 inhibitor, in addition to this patient's regimen. It is dose via nebulizer BID. Patient voiced she would like to try Ohtuvayre. Paperwork was started today. In the meantime, recommended using albuterol more often, especially prophylactically 15-30 minutes before activities to see if that helps. 08/23/2024 Bronchiectasis, uncomplicated (ICD-10 - J47.9) Wvvy-ri-igue encounter performed with the patient to document continued need for a nebulizer with nebulized medications.-Brook[place] christopher nebulized medications: Sodium chloride 0.9%-Symptom control: Saline and PEP are helping to control her secretions-Reported side or adverse effects: Denies-Recommendati ons: Continue current pulmonary toilet with saline nebs + PEP. She will additionally require the nebulizer for Ohtuvayre. 08/23/2024 Cigarette nicotine dependence with nicotine-induced disorder (ICD-10 - F17.219) Discussed smoking cessation still again. She is smoking <1/2ppd - slight improvement. Symptoms are worsening. Discussed smoking can worsen COPD and can contribute to cardiovascular disease; additionally, now we are dealing with an abnormal CT chest with concerns for cancer. She once again stated that she will work on smoking cessation. 08/23/2024 Shortness of breath (ICD-10 - R06.02) As above, patient is developing more SALAZAR - stamina has decreased (from 1 block to 1/2 block until she needs to stop). Last cardiac evaluation was ~15 years ago at [place] - she cannot remember exactly what she had (? catheterization radial approach?). I personally reviewed CT chest 08/11/2024 - I see a few coronary calcifications. She has a strong family history of cardiovascular disease: Mother had multiple coronary stents, father from CHF, paternal grandfather also had CHF, brother has afib. Explained that she could have developed CAD with 15 additional years of smoking since last w/up. I recommended referral to cardiology to see if there is any cardiac contribution to her dyspnea - as previously stated, there has been no significant worsening in her PFT from 2017 to 2023, yet SALAZAR is increasing. 08/23/2024 half-way (current) use of inhaled steroids (ICD-10 - Z79.51) Patient was counseled to rinse & gargle with water after inhaled corticosteroid use. 08/23/2024 Obesity, class 1 (ICD-10 - E66.811) Patient's weight is inducing a restrictive pulmonary physiology. Weight loss indicated: Decrease calories, increase activity. Plan Of Treatment Treatment Notes Assessment Notes Multiple pulmonary nodules Prior CT chest, history of pulmonary nodules, largest 6mm in LLL CTA 07/22/2023, unchanged compared to 09/29/2022. LDCT 07/10/2024 noted no change in size or orientation of these nodules, but there was a new 2.3cm RLL consolidation along with other RLL tree-in-bud findings. F/U CT chest 08/11/2024 shows no change - neither improved or worsening on lung windows. Patient stated that she felt ill preceeding the CT 07/10/2024 with respiratory symptoms. However, she is an active smoker - suspicion for neoplasm remains higher than the average population. As there has not been any improvement over the past month, the recommended option is a PET. An alternative presented to her is a 3 month F/U CT chest (which would be due then mid-September 2024). Patient voiced she wished to proceed with PET. Paperwork started, instructions provided to the patient. Further plan of care depends on results of the PET. Centrilobular emphysema Prior treatment: Trelegy 100 >>>>> Breo 100 She previously had significant improvement in Trelegy over Breo. However, over the past several months, her breathing has worsened. Reviewed that PFT from 2023 was not significantly changed compared to 2017. Discussed with patient that this could be worsening COPD or something else is going on, such as cardiac disease. From a COPD standpoint, there are not many options left. She is not a Dupixent candidate - eosinophils have ranged from 0-100 over the past several years. Discussed Ohtuvayre (ensifentine), a novel PDE3/PDE4 inhibitor, in addition to this patient's regimen. It is dose via nebulizer BID. Patient voiced she would like to try Ohtuvayre. Paperwork was started today. In the meantime, recommended using albuterol more often, especially prophylactically 15-30 minutes before activities to see if that helps. Bronchiectasis, uncomplicated Qtgb-ti-gsah encounter performed with the patient to document continued need for a nebulizer with nebulized medications.-Current nebulized medications: Sodium chloride 0.9%-Symptom control: Saline and PEP are helping to control her secretions-Reported side or adverse effects: Denies-Recommendations: Continue current pulmonary toilet with saline nebs + PEP. She will additionally require the nebulizer for Ohtuvayre. Cigarette nicotine dependenc e with nicotine-induced disorder Discussed smoking cessation still again. She is smoking <1/2ppd - slight improvement. Symptoms are worsening. Discussed smoking can worsen COPD and can contribute to cardiovascular disease; additionally, now we are dealing with an abnormal CT chest with concerns for cancer. She once again stated that she will work on smoking cessation. Shortness of breath As above, patient is developing more SALAZAR - stamina has decreased (from 1 block to 1/2 block until she needs to stop). Last cardiac evaluation was ~15 years ago at [place] - she cannot remember exactly what she had (? catheterization radial approach?). I personally reviewed CT chest 08/11/2024 - I see a few coronary calcifications. She has a strong family history of cardiovascular disease: Mother had multiple coronary stents, father from CHF, paternal grandfather also had CHF, brother has afib. Explained that she could have developed CAD with 15 additional years of smoking since last w/up. I recommended referral to cardiology to see if there is any cardiac contribution to her dyspnea - as previously stated, there has been no significant worsening in her PFT from 2017 to 2023, yet SALAZAR is increasing. 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 Obesity, class 1 Patient's weight is inducing a restrictive pulmonary physiology. Weight loss indicated: Decrease calories, increase activity. Referrals Referral Date Details 08/23/2024 08/23/2024, [facility] Car diology: Worsening dyspnea despite unchanged PFT over past 6 years; strong family history of cardiac disease; active smoker. Please evaluate for cardiac causes of dyspnea.Darinel Next Appt Details Follow Up: 6 Weeks, Reason: Pulmonary nodule, COPD Provider Name:Sukh Lovelace, 10/10/2024 01:30:00 PM, [address] [place], [address], Procedure Notes * Category Sub-Category Detail Notes PFT Data: 01/31/2024-FEV1/F VC: 57%-FEV1: 50%-FVC: 67%-Bronchodilator response: None-RV: 158%-T%-DLCO: 51%-Flow-volume loop: Severe obstruction09/14/2017-FEV1/FVC: 51% -FEV1: 52%-FVC: 78%-Bronchodilator response: None-RV: 200%-T%-DLCO: 53%-Flow-volume loop: Moderately-severe obstruction Alpha-1 Antitrypsin Screening Date: 12/24/2020 Genotype: M/M Progress Notes * Akil CHACON ADOB:1955 ( 69 yo F)Acc No.[id number]:08/23/2024 Follow Up Patient: Akil PAGAN Provider: Amber Lovelace DO :1955 A ge:69 Y S ex:Female Date:08/23/2024 Address:[address] [place] [address] , [id number] Pcp:Antonio Riggins MD Check In:09:57 AM ESTCheck O ut:10:58 AM EST Subjective: * Chief Complaints: * 6 MO-COPD, BRONCHIECTASIS * HPI: G eneral: 6 MONTH F/U Discussed several items today. LDCT 07/10/2024 showed no change in the previously noted nodules (largest 6mm). However, there was a new 2.3cm RLL consolidation along with other RLL tree-in-bud findings when compared to 07/22/2023. We contacted the patient after reviewing the LDCT results in June - she stated she felt ill such as cold symptoms (e.g. cough). A 1 month F/U CT chest was done 08/11/2024 which showed no significant changes. She is complaining of more dyspnea than last visit. Previously could ambulate around 1 block without stopping - now she is having to stop after ~1/2 block. She remains on Trelegy and voices good response without adverse effects. She is using albuterol rarely - only twice within the last 6 months. She states her last cardiac w/up was at least 15 years ago in [place] - she cannot recall if she had a cardiac catheterization or not...if so, it would have been radial approach. MA Intake Comments:. Patient presents for a follow up for COPD. Patient admits to smoking <.5PPD. Patient reports being under a lot of stress. Patient complains of increased SOB since her last visit. Patient is using Trelegy & Nebulizer daily with benefit. Patient reports rare albuterol use. Patient recently had a CT Chest performed on 08/11/2024. * ROS: G eneral/Constitutional: Fatigue a dmits. F ever or sweats d enies. C hange of appetite d enies. C hills d enies.?Weight Change d enies. H EENT: Dry mouth d enies. N osebleed d enies. O ral Ulcers d enies. P ost Nasal Drip D enies. H oarseness D enies. C ardiovascular: Tachycardia d enies. C hest pain d enies. P alpitations d enies. R espiratory: Pleurisy D enies. D yspnea w orsening despite Trelegy - increased with exertion. C ough s ecretions are controlled with saline nebs + PEP. H emoptysis d enies. W heezing d enies. G astrointestinal: Acid Reflux/GERD/Heartburn d enies. M usculoskeletal: Arthralgias/joint pain D enies. W eakness of muscles?denies. S kin: Rash d enies. N eurologic: Seizures d enies. T remor d enies. H ematology: Abnormal Bleeding d enies. P sychiatric: Anxiety d enies. * Active Problem List Z79.51 half-way (current) use of inhaled steroids Modified On:07/28/2023U Status:confirmed J32.9 Chronic sinusitis Modified On:01/26/2023U Status:confirmed F17.219 Cigarette nicotine d ependence with nicotine-induced disorder Modified On:01/26/2024U Status:confirmed R91.8 Multiple pulmonary n odules Modified On:07/28/2023U Status:confirmed J43.2 Centrilobular emphys gina Modified On:07/28/2023U Status:confirmed J47.9 Bronchiectasis, unco mplicated Modified On:07/28/2023U Status:confirmed J96.11 Chronic respiratory failure with hypoxia Modified On:07/28/2023U Status:confirmed G72.81 Critical illness chel maegan Modified On:04/03/2024W/U Status:confirmed J31.0 Rhinitis sicca Modified On:07/28/2023W/U Status:confirmed * Medical History: * Surgical History: c ataract removal section thyroidectomy tubal ligation Bronchoscopy- 04/04/2018 , 03/23/2022, 09/25/2022 * Hospitalization/Major Diagno stic Procedure: A cute Exacerbation of Bronchiectasis-[facility] 09/21/2022 * Family History: M other: cervical cancer, emphysema, diagnosed with Diabetes mellitus without mention of complication, type II or unspecified type, not stated as uncontrolled, Unspecified heart disease. B rother(s): Lung cancer. D annaer(s): Addiction. F ather: diagnosed with Unspecified essential hypertension, Unspecified heart disease. M aternal Grandmother: diagnosed with Diabetes mellitus without mention of complication, type II or unspecified type, not stated as uncontrolled. * Social History: T obacco Use: T obacco Control (Standard) T obacco use: C urrent every day smoker A dditional Findings: Tobacco user L ight cigarette smoker (1-9 cigs/day) Electronic Cigarette use C urrent user N o LM: Additional Tobacco Questions N umber of Years Pt Smoked: 4 9 ; as of 09/17/2022 N umber of Packs per Day: 1 = 49 pack-years When did you stop smokin09/21/2022/ Restarted-11/25/2023. M iscellaneous: O ccupation O ccupation: R etired Retail Pets: cats. D rugs/Alcohol: D rugs H ave you used drugs other than those for medical reasons in the past 12 months? N o D oes the Patient have a History of Drug Abuse in the Past? N o Caffeine I ntake: 1 -2 cups per day Coffee Do you drink alcohol?: Yes, Socially. Do you smoke marijuana?: Denies. * Medications: T akingAlbuterol Sulfate HFA 108 (90 Base) MCG/ACT Aerosol Solution 2 puffs as needed Inhalation every 4 hrs amLODIPine Besylate 5 MG Tablet Oral Aspirin 81(Aspirin) 81 MG Tablet Delayed Release 1 tablet Orally Once a day Calcium 500 MG Tablet 1 tablet with meals Orally Twice a day Fluticasone Propionate 50 MCG/ACT Suspension 1 spray in each nostril Nasally Once a day Handicapped Tag - - 1 year , Notes to Pharmacist: Razia J96.11 (Chronic hypoxic respiratory failure). Duration: 1 yearLosartan Potassium 50 MG Tablet 1 tablet Orally Once a day Multi Complete(Multiple Vitamins-Minerals) - Capsule as directed Orally Sodium Chloride 0.9 % Nebulization Solution 3mL Inhalation TID Dispense 270 ampulesSynthroid(Levothyroxine Sodium) 112 MCG Tablet 1 tablet in the morning on an empty stomach Orally Once a day Trelegy Ellipta(Uppjumwuxfy-Vlvykwdgg-Dmosjy) 100-62.5-25 MCG/ACT Aerosol Powder Breath Activated 1 puff Inhalation Once a day Rinse after useMedication List reviewed and reconciled with the patientTaking Albuterol Sulfate HFA 108 (90 Base) MCG/ACT Aerosol Solution 2 puffs as needed Inhalation every 4 hrs Taking amLODIPine Besylate 5 MG Tablet Oral Taking Aspirin 81(Aspirin) 81 MG Tablet Delayed Release 1 tablet Orally Once a day Taking Calcium 500 MG Tablet 1 tablet with meals Orally Twice a day Taking Fluticasone Propionate 50 MCG/ACT Suspension 1 spray in each nostril Nasally Once a day Taking Handicapped Tag - - 1 year , Notes to Pharmacist: Razia J96.11 (Chronic hypoxic respiratory failure). Duration: 1 yearTaking Losartan Potassium 50 MG Tablet 1 tablet Orally Once a day Taking Multi Complete(Multiple Vitamins-Minerals) - Capsule as directed Orally Taking Sodium Chloride 0.9 % Nebulization Solution 3mL Inhalation TID Dispense 270 ampulesTaking Synthroid(Levothyroxine Sodium) 112 MCG Tablet 1 tablet in the morning on an empty stomach Orally Once a day Taking Trelegy Ellipta(Qujwmlsoyfg-Landzsbde-Mepxaj) 100-62.5-25 MCG/ACT Aerosol Powder Breath Activated 1 puff Inhalation Once a day Rinse after useMedication List reviewed and reconciled with the patient * Allergies: N .K.D.A.no[Allergies Verified] Objective: * Vitals: W t:172.2lbs, Ht: 64 in, BP:sittin/84mm Hg, Temp:Forehead:96.7F, HR:77/min, RR:18/min, BMI:29.55Index, Oxygen sat %:Room Air:92%, Ht-cm: 162.56 cm, Wt-k.11 kg. * Examination: E xam: GENERAL APPEARANCE: N o acute distress. Skin N ormal. Mouth P ink and moist. U pper dentures. No candidiasis.? Oropharynx/Tongue M allampati Class III. Trachea M idline. Chest N ormal. Respiratory Normal M ovements, E ffort N ormal. Auscultation D iminished breath sounds - new coarse in the bases, faint expiratory wheezes with forced exhalation. Cardiac R egular rate and rhythm. Gastrointestinal N ormal. Vascular N o edema. Musculoskeletal N ormal posture. Neurological F ocal, intact. Psychiatric A lert and oriented x3. Mentation/Cognition N ormal. Assessment: * Assessment: 1. M ultiple pulmonary nodules - R91.8 (Primary) 2 . C entrilobular emphysema - J43.2 3 . B ronchiectasis, uncomplicated - J47.9 4 . C igarette nicotine dependence with nicotine-induced disorder - F17.219 5 . S hortness of breath - R06.02 6 . L lucy term (current) use of inhaled steroids - Z79.51 7 . O besity, class 1 - E66.811 Plan: * Treatment: 2. C entrilobular emphysema Notes: Prior treatment: Trelegy 100 >>>>> Breo 100 She previously had significant improvement in Trelegy over Breo. However, over the past several months, her breathing has worsened. Reviewed that PFT from 2023 was not significantly changed compared to 2018. Discussed with patient that this could be worsening COPD or something else is going on, such as cardiac disease. From a COPD standpoint, there are not many options left. She is not a Dupixent candidate - eosinophils have ranged from 0-100 over the past several years. Discussed Ohtuvayre (ensifentine), a novel PDE3/PDE4 inhibitor, in addition to this patient's regimen. It is dose via nebulizer BID. Patient voiced she would like to try Ohtuvayre. Paperwork was started today. In the meantime, recommended using albuterol more often, especially prophylactically 15-30 minutes before activities to see if that helps. 3. B ronchiectasis, uncomplicated Notes: Uxoq-rp-mayr encounter performed with the patient to document continued need for a nebulizer with nebulized medications.-Current nebulized medications: Sodium chloride 0.9%-Symptom control: Saline and PEP are helping to control her secretions-Reported side or adverse effects: Denies-Recommendations: Continue current pulmonary toilet with saline nebs + PEP. She will additionally require the nebulizer for Ohtuvayre. 4. C igarette nicotine dependence with nicotine-induced disorder Notes: Discussed smoking cessation still again. She is smoking <1/2ppd - slight improvement. Symptoms are worsening. Discussed smoking can worsen COPD and can contribute to cardiovascular disease; additionally, now we are dealing with an abnormal CT chest with concerns for cancer. She once again stated that she will work on smoking cessation. 5. S hortness of breath Notes: As above, patient is developing more SALAZAR - stamina has decreased (from 1 block to 1/2 block until she needs to stop). Last cardiac evaluation was ~15 years ago at [place] - she cannot remember exactly what she had (? catheterization radial approach?). I personally reviewed CT chest 08/11/2024 - I see a few coronary calcifications. She has a strong family history of cardiovascular disease: Mother had multiple coronary stents, father from CHF, paternal grandfather also had CHF, brother has afib. Explained that she could have developed CAD with 15 additional years of smoking since last w/up. I recommended referral to cardiology to see if there is any cardiac contribution to her dyspnea - as previously stated, there has been no significant worsening in her PFT from 2017 to 2023, yet SALAZAR is increasing. Referral To:Darinel Joya Cardiology Reason:[facility] Cardiology: Worsening dyspnea despite unchanged PFT over past 6 years; strong family history of cardiac disease; active smoker. Please evaluate for cardiac causes of dyspnea. 6. L lucy term (current) use of inhaled steroids Notes: Patient was counseled to rinse & gargle with water after inhaled corticosteroid use. 7. O besity, class 1 Notes: Patient's weight is inducing a restrictive pulmonary physiology. Weight loss indicated: Decrease calories, increase activity. * Procedures: A lpha-1 Antitrypsin: Screening Date: 0 12/24/2020. Genotype: M /M. P FT: Data: 01/31/2024 -FEV1/FVC: 57% -FEV1: 50% -FVC: 67% -Bronchodilator response: None -RV: 158% -T% -DLCO: 51% -Flow-volume loop: Severe obstruction 09/14/2017 -FEV1/FVC: 51% -FEV1: 52% -FVC: 78% -Bronchodilator response: None -RV: 200% -T% -DLCO: 53% -Flow-volume loop: Moderately-severe obstruction.? * Procedure Codes: * Preventive Medicine: COVID Vaccination: H as patient had COVID Vaccination? COVID Vaccination Y es 02/04/2021 Immunization Status: P neumovacc P [id number] - 11/02/2022. I nfluenza 1 05/01/2023. Z ostivax 0 12/29/2018. B oostrix 0 12/25/2015. Screenings/Counseling: F ALL RISK SCREENING Fall Risk Assessment: N o falls in the past year Are you afraid of falling? N o T OBACCO ACTION PLAN Patient counselled on the dangers of tobacco use and urged to quit. 0 08/23/2024 Cessation counseling provided 0 08/23/2024 B TX ACTION PLAN Above Normal BMI Follow-up D ietary management education, guidance, and counseling A luz marina(RSV)-02/26/2023. * Disposition & Communication: A ttestation: Over 40 minutes were spent with patient. Reviewed reports and imaging of CT chest from multiple dates with patient, reviewed prior PFT results, reviewed labs, discussed current treatment, obtained past cardiac history, initiated treatment with Ohtuvayre, discussed w/up of abnormal CT with PET and obtained initial paperwork for this, and discussed smoking cessation yet again. * Follow Up: 6 Weeks (Reason: Pulmonary nodule, COPD) * * Sign off status: Completed Visit Status: C HK (Check Out) true * Provider: Amber Lovelace DO Date: 08/23/2024 Generated for Stas lópez/Nader/Ninoitting on: 0 10/06/2024 08:02 AM EDT History and Physical Notes * HPI (History of Present Illness) Category Sub-Category Detail Notes Category Not es General Patient present s for a follow up for COPD. Patient admits to smoking <.5PPD. Patient reports being under a lot of stress. Patient complains of increased SOB since her last visit. Patient is using Trelegy & Nebulizer daily with benefit. Patient reports rare albuterol use. Patient recently had a CT Chest performed on 08/11/2024. Examination Category Sub-Category Detail Notes Category Not es Exam GENERAL APPEARANCE: No acute distress Skin Normal Mouth [place] and moist. Uppe r dentures. No candidiasis Trachea Midline Chest Normal Respiratory Normal Movements, Ef fort Normal Auscultation Diminished breath so unds - new coarse in the bases, faint expiratory wheezes with forced exhalation Percussion Egophony Bronchophony Fremitus Whispered pectoriloquy Cardiac Regular rate and rhy thm Gastrointestinal Normal Vascular No edema Musculoskeletal Normal posture Neurological Focal, intact Psychiatric Alert and oriented x 3 Mentation/Cognition Normal Oropharynx/Tongue Mallampati Class III Consultation Request Notes Referral Date Referring Provider Referred Provider Not es 08/23/2024 Sukh Lovelace George [facility] Card iology: Worsening dyspnea despite unchanged PFT over past 6 years; strong family history of cardiac disease; active smoker. Please evaluate for cardiac causes of dyspnea.
--- OUTSIDE RECORDS SUMMARY | 2024-09-05 09:43 | XMS_ITS ---
Author Organization The [facility] in [place] Address [address] [place] [address] Care Team Providers Care Cash Processor Name Role Phone Antonio Riggins MD Primary Care Provider Unavail Sukh Russell Unavailable [phone] Reason For Referral Reason Abnormal PET imaging of palatine tonsil - please assess Diagnosis 1 Abnormal findings on diagnostic imaging of skull and head, not elsewhere classified (R93.0) Referral Organization [facility] Referring Provider First Name Sukh Referring Provider Last Name Radu Referring Provider Speciality Pulmonolog y Referred Provider Analisa Mireles Referred Provider Specialty Otolaryngolo gy General Notes Tyler Ritchie 09/05 05:52:48 PM >Referral faxed to office., Tyler Ritchie 09/07/2024 11:57:26 AM >I called and spoke with Mary at office to find out if the referral was received? Mary was unable to locate the referral that was faxed on 09/05/2024. Referral faxed again., Tyler Ritchie 09/13/2024 08:02:11 AM >I called and spoke with Cheri at 's office to find out if the patient has been scheduled? Per Cheri the patient was contacted and scheduled for 09/21/2024 at 0920.Chau Riley 09/20/2024 03:40:03 PM >I called and spoke with Prashant at office to find out if the patient was seen and if so could the consult note be faxed to our office? Prashant confirmed the patient was seen by and she would fax the consult note. Fax number confirmed., Tyler Ritchie 09/20/2024 04:41:21 PM >Consult note received via fax and scanned to . Referral Priority Routine Referral Appointment Date 09/19/2024 REASON FOR VISIT PET result Encounters Encounter Location Date Provider Diagnosis [facility] [address] [place] [address] 09/05/2024 Sukh Gerardo Abnormal findings on diagnostic imaging of skull and head, not elsewhere classified R93.0 Assessments Encounter Date Diagnosis (ICD Code) Assessment Notes Treatment Notes Treatment Clinical Notes Section Notes 09/05/2024 Abnormal findings on diagnostic imaging of skull and head, not elsewhere classified (ICD-10 - R93.0) Plan Of Treatment Referrals Referral Date Details 09/05/2024 09/05/2024, Abnormal PET imaging of palatine tonsil - please assess, Analisa Mireles Next Appt Details Provider Name:Sukh Lovelace, 10/10/2024 01:30:00 PM, [address] [place], [address], Progress Notes * CHACONAkil Deras ADOB:1955 ( 69 yo F)Acc No.[id number]:09/05/2024 Patient: Akil PAGAN :1955 A ge:69 Y S ex:Female Address:[address] [place] [address], [phone] Subjective: * Chief Complaints: * P ET result * Medical History: * Surgical History: * Hospitalization/Major Diagno stic Procedure: * Medications: Objective: * Vitals: * Physical Examination: Assessment: * Assessment: 1. A bnormal findings on diagnostic imaging of skull and head, not elsewhere classified - R93.0 (Primary) Plan: * Treatment: * Procedure Codes: * true * Date: Generated for Printi ng/Faxing/eTransmitting on: 0 10/06/2024 08:02 AM EDT Consultation Request Notes Referral Date Referring Provider Referred Provider Not es 09/05/2024 Sukh Lovelace Hilary Abnormal PET imaging of palatine tonsil - please assess
--- OUTSIDE RECORDS SUMMARY | 2024-09-28 14:00 | XMS_ITS | Encounter Summary ---
Author Organization [facility] Address [address] [facility] [place] [address] Care Team Providers Care Environmental Services Floor Tech Name Role Phone Antonio Riggins MD Primary Care Provider [phone] Antonio Riggins MD Unavailable Delmar Bowen MA Unavailable Unavailable Reason for Visit * Reason Comments Follow-up 6m Encounter Details Date Type Department Care Team ([facility] st Contact Info) Description 09/28/2024 2:00 PM EDT [facility] [address] [address] Antonio Riggins MD [address] [place] [place] [phone] Type 2 diabetes mellitus without complication, without [...] week 09/26/2023 How often do you attend [facility] or zoroastrian services? Never 09/26/2023 Do you belong to any clubs o r organizations such as restorationism groups, unions, fraternal [...] Recorded Patient Health Questionnaire-2 Score 0 03/28/2024 [facility] - Occupational Stress Questionnaire Answer Date Recorded [...] place to sleep or slept in a intermediate (including now)? No 09/26/2023 Comments Unknown Sex [...] Symptoms stable and follow with pulmonology. * Anotnio Riggins MD - 09/28/2024 2:00 PM EDT [...] 12/20/2024 11:20 AM EDT Office Visit [facility] [address] [facility] [address] [place] [address] Analisa Mireles MD [address] [facility] [address] [place] [address] 04/03/2025 1:00 PM EST [facility] [address] [place] [address] Antonio Riggins MD [address] [place] [address] Scheduled Orders Name Type Priority Associated Diagnoses [...] Time PHQ-9 Depression Total Score: 0 03/28/20 24 11:00 AM EST documented as of this encounter Care Teams Environmental Services Floor Tech Relationship Specialty Start Date End Date Antonio Riggins MD [address] [place] [address] PCP - General Family Medicine 10/21/22 Antonio Riggins MD [address] [place] [address] PCP - Jaycee DAVIS 11/25/23 Delmar Bowen MA Family Medicine 04/18/24 documented as of this encounter
--- NOTE | 2024-10-06 08:00 | NM_ITS ---
Patient Name: ERICA CHACON MR#: [id number] : 1955 Exam Date: 10/06/2024 Ordering Doctor: DR ELAYNE EL M.D. RADIOLOGY REPORT PROCEDURE: NM MACKENZIE PERF SPECT REST STR COMPARISON: None. INDICATIONS: PERICARDIAL EFFUSION, DYSPNEA, FAMILY HISTORY TECHNIQUE: Exam Description: Stress/Rest one day protocol gated SPECT Rest Imagin.2 mCi Tc-99m Cardiolite IV on 10/06/2024 Stress Imaging 30.4 mCi Tc-99m Cardiolite IV on 10/06/2024 Exercise Protocol: 0.4 mg Lexiscan given IV Heart Rate (bpm): Rest: 62 Max: 81 PMHR: 54 Blood Pressure: Rest: 128/70 Max: 140/84 Symptoms: Rest and peak stress ECG findings were pending, and the exercise portion of the study was pending per attending physician [facility]. For more details, please see separate cardiac stress test report. FINDINGS: QUALITY OF STUDY: Good PERFUSION DEFECT: LOCATION: N/A SIZE: N/A SEVERITY: N/A TYPE: N/A WALL MOTION: Normal wall motion LV SIZE: 71 mL. TID / TCD: 0.8 LVEF: Calculated EF 85%. SUMMARY: Myocardial perfusion imaging study is normal CONCLUSION: 1. Myocardial perfusion is normal with soft tissue attenuation 2. Global left ventricular systolic function is hyperdynamic 3. No significant transient ischemic dilatation Dictated by: Elayne El M.D. on 10/06/2024 at 15:09 Approved by: Elayne El M.D. on 10/06/2024 at 15:12
--- OUTSIDE RECORDS SUMMARY | 2024-10-06 08:02 | XMS_ITS | Encounter Summary ---
Author Organization [facility] Address [address] [place] [address] Care Team Providers Care Knuckle Bender Name Role Phone Antonio Riggins MD Primary Care Provider [phone] Antonio Riggins MD Unavailable Sonam Gloria TROLLEY WORKER Unavailable Delmar Bowen MA Unavailable Unavailable Encounter Details Date Type Department Care Team (Late Contact Info) Description 07/23/2023 Orders Only [facility] [address] [place] [address] Antonio Riggins MD [address] [place] [address] Social History Tobacco Use Types Packs/Day Years Used Date Smoking Tobacco: Former Cigarettes 1 50 0 09/1972 - 09/2022 Comments Unknown Sex and Gender Information Value Date Recorded Sex Assigned at Not on file Legal Sex Female 4:12 PM EDT Gender Identity Not on file Sexual Orientation Not on file documented as of this encounter Plan of Treatment Upcoming Encounters Date Type Department Care Team (Late Contact Info) Description 12/20/2024 11:20 AM EDT Office Visit [facility] [address] [facility] [address] [place] [address] Analisa Mireles MD [address] [facility] [address] [place] [address] 04/03/2025 1:00 PM EST Office Visit [facility] [address] [place] [address] Antonio Riggins MD [address] [place] [address] documented as of this encounter Procedures Procedure Name Priority Date/Time Associated Diagnosis Comments ECG 12-LEAD Routine 07/23/2023 10:36 AM EDT documented in this encounter Results * ECG 12 lead (07/23/2023 10:36 AM EDT) Antonio Riggins MD ECG ORDERABLES Final Result documented in this encounter Visit Diagnoses Not on filedocumented in this encounter Care Teams Knuckle Bender Relationship Specialty Start Date End Date Antonio Riggins MD [address] [place] [address] PCP - General Family Medicine 10/21/22 Antonio Riggins MD [address] [place] [address] PCP - Jaycee DAVIS 11/25/23 Sonam Gloria LPN [address] [place] [address] Licensed Practical Nurse Family Medicine 04/17/2403/27 Delmar Bowen MA Family Medicine 04/18/24 documented as of this encounter
--- OUTSIDE RECORDS SUMMARY | 2024-10-06 08:02 | XMS_ITS | Clinical Summary ---
Author Organization [facility] Address [address] [place] [id number] Care Team Providers Care Financial Institution Manager Name Role Phone Ottoniel Fuchs MD Primary Care Provider [phone] Allergies No known active allergies Medications calcium, elemental, ORAL Tab Take one(1) tablet once daily - Calcium + Vitamin D 0 05/21/2010 Active multivitamin (MULTIPLE VITAMIN) ORAL tablet Take 1 tablet by mouth once daily. Active losartan (COZAAR) 50 mg tablet Take 50 mg by mouth once daily. Active levothyroxine (SYNTHROID) 112 mcg tablet TAKE 1 TABLET DAILY 90 tablet 3 11/13/2016 Active Active Problems Problem Noted Date Diagnosed Date Osteopenia 07/03/2015 Overview (07/03/2015): Seen on DEXA in 01/2012. Tobacco abuse 05/31/2014 Hypothyroidism 05/21/2010 Menopause 05/21/2010 Social History Tobacco Use Types Packs/Day Years Used Date Smoking Tobacco: Every Day Cigarettes 0.5 38 Smokeless Tobacco: Never Comments:Trying to quit - cu rrently smokes 1/2 pack cigarettes daily Alcohol Use Standard Drinks/Week Comments Not Asked 0 (1 standard drink = 0.6 oz pur e alcohol) Comments No Sex and Gender Information Value Date Recorded Sex Assigned at Not on file Legal Sex Female 8:24 AM EST Gender Identity Not on file Sexual Orientation Not on file Last Filed Vital Signs Vital Sign Reading Time Taken Comments Blood Pressure 119/71 07/03/2015 2:46 PM EST Pulse 79 07/03/2015 2:46 PM EST Temperature - - Respiratory Rate - - Oxygen Saturation 95% 07/03/2015 2:46 PM EST Inhaled Oxygen Concentration - - Weight 64.4 kg (142 lb) 07/03/2015 2:46 PM EST Height 162.6 cm (5' 4 ) 07/03/2015 2:46 PM EST Body Mass Index 24.37 07/03/2015 2:46 PM EST Plan of Treatment Health Maintenance Due Date Last Done Comments Anxiety Screening 1972 Depression Screening 1972 Hepatitis C Screening 1972 DTaP,Tdap,Td Vaccine (1 - Tdap) 1973 CT Colonography 08/02/1999 Cologuard (FIT-DNA) 08/02/1999 Fecal Occult Blood 08/02/1999 Sigmoidoscopy 08/02/1999 Pneumococcal Vaccine: 50+ (1 of 1 - PCV) 2004 Shingrix Vaccine (1 of 2) 2004 Mammogram Screening 01/24/2013 01/25/2012, 03/23/2007, 01/15/2006 Lipid Screening 10/06/2013 10/06/2008 Colonoscopy 02/28/2014 02/28/2013 Colorectal Cancer Screening 02/28/2014 Diabetes Screening 11/13/2016 11/13/2013, 0 11/12/2013, 10/06/2008 Bone Density Screening 08/02/2019 Covid-19 Vaccine ( - 2023-2 5 season) 2023 Advance Directive Discussion 04/26/2024 Influenza Vaccine (Season Ended) 2024 RSV Vaccine (1 - 1-dose 75+ series) 2029 Cervical Cancer Screening Discontinued 01/25/2012 Procedures Procedure Name Priority Date/Time Associated Diagnosis Comments COMPREHENSIVE METABOLIC PANEL Routine 11/13/2013 6:20 AM EDT LIPID PANEL, FASTING Routine 10/06/2008 9:09 AM EDT MAMMOGRAM SCREENING SWATI W/CAD 03/23/2007 9:04 AM EST from Last 3 Months or Most Recently Relevant to Health Maintenance Results * (ABNORMAL) COMP METABOLIC PANEL (11/13/2013 6:20 AM EDT) Sodium 136 136 - 145 mEq/L [facility] Potassium 4.1 3.5 - 5.1 mEq/L [facility] Chloride 105 98 - 107 mEq/L [facility] CO2 31 21 - 32 mEq/L [facility] Glucose 151(H) 70 - 99 mg/dL [facility] BUN 7 7 - 25 mg/dL [facility] Creatinine 0.51 0.51 - 0.95 mg/dL [facility] Calcium 9.1 8.5 - 10.1 mg/dL [facility] Albumin 2.8(L) 3.4 - 5.0 g/dL [facility] Protein, Total 6.6 6.4 - 8.2 g/dL [facility] AST 34 15 - 37 U/L [facility] ALT 44 12 - 78 U/L [facility] Alkaline Phosphatase 60 46 - 116 U/L [facility] Bilirubin, Total 0.1(L) 0.2 - 1.0 mg/dL [facility] Anion Gap 4(L) 8 - 20 [facility] BUN/CREATININE RATIO 14 10 - 20 [facility] 11/13/2013 6:20 AM EDT 11/13/2013 6:29 AM EDT Cristel Farrell Sheets DO LABORATORY Final Resul t [facility] [address] [place] [address] * LIPID PANEL BASIC (10/06/2008 9:09 AM EDT) Cholesterol, Total 167 <200 MG/DL [facility] Comment: CHOLESTEROL RECOMMENDATIONS: <200 DESIRABLE 200-240 BORDERLINE >240 HIGH Triglyceride 40 <250 MG/DL [facility] HDL Cholesterol 84 SEE BELOW MG/DL [facility] Comment: HDL RECOMMENDATIONS: MALE FEMALE >55 >65 DESIRABLE 35-55 45-65 BORDERLINE <35 <45 UNDESIRABLE LDL Cholesterol, Calculated 75 0 - 130 MG/DL [facility] Comment: LDL RECOMMENDATIONS: <130 DESIRABLE 130-160 BORDERLINE >160 UNDESIRABLE VLDL Cholesterol 8 0 - 50 MG/DL [facility] 10/06/2008 9:09 AM EDT 10/06/2008 9:09 AM EDT Ottoniel Fuchs MD LABORATORY Final Result [facility] * MAMMOGRAM SCREENING SWATI W/CAD (03/23/2007 9:04 AM EST) Sociology Research Assistant RADIOLOGY SCREENING MAMMOGRAM NAME: Akil Torres ROOM#:[facility]#: [id number] ATTEND PHYS:Ottoniel Fuchs M.D. ACCT: [id number] ORDER PHYS:Ottoniel Fuchs M.D. RAD #: [id number] FIN CLASS:B PT TYPE:O EXAM DATE: 03/14/2007 15:32 PT SEX:F EXAM: MAMMOGRAM SCREEN W/CAD :1955 AGE: 51 FINDINGS: Intact bilateral mammary implants, new since prior exam of 01/13/2006. No masses, clustered microcalcificatio ns, or other findings. No other interval change since the prior exam. IMPRESSION: No mammographic evidence of malignancy with new bilateral mammary implants in place. Computer aided detection (CAD) was utilized in evaluation of this mammogram. BI-RADS CATEGORY 2: Benign finding. THIS IS AN ELECTRONICALLY VERIFIED REPORT 03/23/2007 09:04 AM: Bhupendra Ennis D.O. RADIOLOGIST [facility] / as Dictated Date: 03/15/2007 Time: 10:06 AM Transcribed Date: 03/15/2007 Time: 09:55 PM VJob #: [id number] Document ID: [id number] COM: 1520 SCREENING COPY [facility] Anatomical Region Laterality Modality Other 03/23/2007 9:04 AM EST Narrative 03/23/2007 9:04 AM EST Ordered by an unspecified provider. [facility] Provider Escobar MAMMOGRAPHY Final Resul t from Last 3 Months or Most Recently Relevant to Health Maintenance Care Teams Financial Institution Manager Relationship Specialty Start Date End Date Ottoniel Fuchs MD PCP - General Family Medicine 05/21/11
--- OUTSIDE RECORDS SUMMARY | 2024-10-06 08:02 | XMS_ITS | Clinical Summary ---
Author Organization [facility] Address [address] [place] [address] Care Team Providers Care Advanced Practice Rn Name Role Phone Antonio Riggins MD Primary Care Provider [phone] Allergies No known active allergies Medications albuterol 90 mcg/actuation inhaler Inhale 2 puffs every 4 (four) hours if needed. 07/26/2023 Active amLODIPine (Norvasc) 5 mg tablet Take 5 mg by mouth in the morning. Active losartan (Cozaar) 50 mg tablet Take 50 mg by mouth in the morning. 08/28/2024 Active levothyroxine (Synthroid, Levoxyl) 112 mcg tablet Take 112 mcg by mouth before breakfast. 11/13/2016 Active metFORMIN (Glucophage) 500 mg tablet Take 500 mg by mouth with breakfast. 08/28/2024 Active aspirin 81 mg EC tablet Take 81 mg by mouth in the morning. Active Trelegy Ellipta 100-62.5-25 mcg blister with device Inhale 100 mcg in the morning. Active multivitamin tablet Take 1 tablet by mouth in the morning. Active Active Problems Problem Noted Date Diagnosed Date Type 2 diabetes mellitus wit hout complication, without long-term current use of insulin 06/12/2024 COPD with acute exacerbation 04/27/2024 Centrilobular emphysema 09/27/2023 Seasonal allergic rhinitis due to pollen 024 Colon cancer screening 04/01/2023 Encounter for long-term (current) use of medicat ions 04/01/2023 Prediabetes 12/29/2018 Bronchiectasis without complication 12/25/2016 Lung nodule 12/25/2016 Panlobular emphysema 12/25/2016 HTN (hypertension), benign 12/25/2015 Osteopenia 07/03/2015 Overview (09/06/2024): Seen on DEXA in 01/2012. DEXA 06/27/24: femur -1.9, lumbar -1.6 Nicotine dependence, cigarettes, uncomplicated 0 12/13/2014 Postoperative hypothyroidism 12/13/2014 Tobacco user 05/31/2014 Hypothyroidism 05/21/2010 Menopause 05/21/2010 Encounters Date Type Department Care Team Description 09/06/2024 2:15 PM EDT Office Visit [facility] [address] [place] [address] Jaime Gonzalez MD Centrilobular emphysema (CMS/HCC) (Primary Dx); HTN (hypertension), benign; Abnormal CT scan, chest; Pericardial effusion 09/06/2024 Orders Only [facility] [address] [facility] [address] Jessica Rolon MA Pericardial effusion; SALAZAR (dyspnea on exertion) from Last 3 Months Family History Medical History Relation Name Comments Atrial fibrillation Brother Heart failure Father Coronary artery disease Mother Relation Name Status Comments Brother Alive Father Mother Sister Alive Social History Tobacco Use Types Packs/Day Years Used Date Smoking Tobacco: Every Day Cigarettes Passive Smoke Exposure: Current Smokeless Tobacco: Never Tobacco Cessation:Ready to Q uit: Not Asked; Counseling Given: Not Answered Alcohol Use Standard Drinks/Week Comments Not Asked 0 (1 standard drink = 0.6 oz pur e alcohol) occasional Comments Unknown Sex and Gender Information Value Date Recorded Sex Assigned at Not on file Legal Sex Female 1:47 PM EDT Gender Identity Not on file Sexual Orientation Not on file Last Filed Vital Signs Vital Sign Reading Time Taken Comments Blood Pressure 95/56 09/06/2024 2:14 PM EDT Pulse 72 09/06/2024 2:14 PM EDT Temperature - - Respiratory Rate - - Oxygen Saturation 93% 09/06/2024 2:14 PM EDT Inhaled Oxygen Concentration - - Weight 76.7 kg (169 lb) 09/06/2024 2:14 PM EDT Height 162.6 cm (5' 4 ) 09/06/2024 2:14 PM EDT Body Mass Index 29.01 09/06/2024 2:14 PM EDT Plan of Treatment Upcoming Encounters Date Type Department Care Team (Late st Contact Info) Description 10/10/2024 2:15 PM EDT Office Visit [facility] [address] [place] [address] Jaime Gonzalez MD [address] [facility] [place] [address] Health Maintenance Due Date Last Done Comments CT Colonography 1955 Colonoscopy 1955 Colorectal Cancer Screening 1955 Diabetes: Hemoglobin A1C 1955 FIT-DNA 1955 FIT 1955 FOBT 1955 Medicare Annual Wellness (AWV) 1955 Sigmoidoscopy 1955 Diabetes: Retinopathy Screening 1964 Depression Screening 1966 Diabetes: Urine Protein Screening 1973 Mammogram 1994 Fall Risk Screening 08/02/2019 COVID-19 Vaccine ( season) 2023 02/04/2021 Adult Tetanus 12/24/2025 12/25/2015 Zoster Vaccines Completed 12/29/2018, 01/24, 02/12/2015 Pneumococcal Vaccine: 50+ Years Completed 11/02/2022, 02/12/2015, 01/24/2015 Influenza Vaccine Completed 03/01/2024, , 03/30/2019, Additional history exists HIB Vaccines Aged Out No longer eligi ble based on patient's age to complete this topic HPV Vaccines Aged Out No longer eligi ble based on patient's age to complete this topic IPV Vaccines Aged Out No longer eligi ble based on patient's age to complete this topic Meningococcal B Vaccine Aged Out No l onger eligible based on patient's age to complete this topic Meningococcal Vaccine Aged Out No adriana cruz eligible based on patient's age to complete this topic Rotavirus Vaccines Aged Out No longer eligible based on patient's age to complete this topic Insurance [facility]IC[facility] ADVANTAGE Care Teams Advanced Practice Rn Relationship Specialty Start Date End Date Antonio Riggins MD [address] [facility] [place] [address] PCP - General Family Medicine 09/06/24
--- OUTSIDE RECORDS SUMMARY | 2024-10-06 08:02 | XMS_ITS | Encounter Summary ---
Author Organization [facility] Address [address] [place] [address] Care Team Providers Care Senior Category Manager Name Role Phone Antonio Riggins MD Primary Care Provider [phone] Antonio Riggins MD Unavailable Faizan Sonam CONDEMNATION ENGINEER Unavailable Delmar Bowen MA Unavailable Unavailable Encounter Details Date Type Department Care Team (Late Contact Info) Description 07/22/2023 Orders Only [facility] [address] [place] [address] Jovanny Lima MD [address] [place] [address] Social History Tobacco Use Types Packs/Day Years [...] EDT Office Visit [facility] [address] [facility] 130 [place] [phone] Analisa Mireles MD [address] [facility] 130 [place] [address] 04/03/2025 1:00 PM EST Office Visit [facility] [address] [place] [address] Antonio Riggins MD [address] [place] [address] documented as of this encounter Procedures Procedure Name Priority Date/Time Associated Diagnosis Comments CT ANGIO CHEST W CONT(INCL WO) Routine 07/22/2023 2:15 PM EDT XR CHEST 1 VIEW Routine 07/22/2023 11:51 AM EDT documented in this encounter Results * CT ANGIO CHEST W CONT(INCL WO) (07/22/2023 2:15 PM EDT) Anatomical Region Laterality Modality Radiographic Sari ging Jovanny Lima MD IMG XR PROCEDURES Final Resul t * XR chest 1 view (07/22/2023 11:51 AM EDT) Anatomical Region Laterality Modality Chest Radiographic Sari ging Jovanny Lima MD IMG XR PROCEDURES Final Resul t documented in this encounter Visit Diagnoses Not on filedocumented in this encounter Care Teams Senior Category Manager Relationship Specialty Start Date End Date Antonio Riggins MD [address] [address] PCP - General Family Medicine 10/21/22 Antonio Riggins MD [address] [place] [address] PCP - Jaycee DAVIS 11/25/23 Sonam Gloria LPN [address] [place] [address] Licensed Practical Nurse Family Medicine 04/17/2403/27 Delmar Bowen MA Family Medicine 04/18/24 documented as of this encounter
--- OUTSIDE RECORDS SUMMARY | 2024-10-06 08:02 | XMS_ITS | Encounter Summary ---
Author Organization [facility] Address [address] [place] [address] Care Team Providers Care Oem Sales Manager Name Role Phone Antonio Riggins MD Primary Care Provider [phone] Antonio Riggins MD Unavailable Sonam Gloria RUBBER GOODS REPAIRER Unavailable Delmar Bowen MA Unavailable Unavailable Encounter Details Date Type Department Care Team (Late Contact Info) Description 06/15/2023 Orders Only [facility] [address] [place] [address] Antonio Riggins MD [address] [place] [address] Social History Tobacco Use Types Packs/Day Years [...] EDT Office Visit [facility] [address] [facility] 130 [place] [phone] Analisa Mireles MD [address] [facility] 130 [place] [address] 04/03/2025 1:00 PM EST Office Visit [facility] [address] [place] [address] Antonio Riggins MD [address] [place] [address] documented as of this encounter Visit Diagnoses Not on filedocumented in this encounter Care Teams Oem Sales Manager Relationship Specialty Start Date End Date Antonio Riggins MD [address] [place] [address] PCP - General Family Medicine 10/21/22 Antonio Riggins MD [address] [place] [address] PCP - Jaycee DAVIS 11/25/23 Sonam Gloria LPN [address] [place] [address] Licensed Practical Nurse Family Medicine 04/17/2403/27 Delmar Bowen MA Family Medicine 04/18/24 documented as of this encounter
--- OUTSIDE RECORDS SUMMARY | 2024-10-06 08:02 | XMS_ITS | Encounter Summary ---
Author Organization [facility] Address [address] [place] [address] Care Team Providers Care Guest Services Attendant Name Role Phone Antonio Riggins MD Primary Care Provider [phone] Antonio Riggins MD Unavailable Sonam Gloria LPN Unavailable Delmar Bowen MA Unavailable Unavailable Encounter Details Date Type Department Care Team ([facility] Contact Info) Description 06/24/2023 Clinisync Result Encounter [facility] External Department Unsolicited Antonio Riggins MD [address] [place] [address] Social History Tobacco Use Types Packs/Day Years [...] Upcoming Encounters Date Type Department Care Team ([facility] Contact Info) Description 12/20/2024 11:20 AM EDT Office Visit [facility] 112 [facility] 130 [place] [phone] Analisa Mireles MD [address] [facility] 130 [place], [place] [phone] 04/03/2025 1:00 PM EST Office Visit [facility] [address] [place] [address] Antonio Riggins MD [address] [place] [address] documented as of this encounter Procedures Procedure Name Priority Date/Time Associated Diagnosis Comments MM TOMOSYNTHESIS SCREENING BI 06/24/2023 3:38 PM EST documented in this encounter Results * MM TOMOSYNTHESIS SCREENING BI (06/24/2023 3:38 PM EST) Anatomical Region Laterality Modality Other 06/24/2023 3:38 PM EST Narrative 06/24/2023 3:39 PM EST The [address] [address] Mammography Report Signed Patient: ERICA CHACON MR#: [id number] : 1955 Acct:[id number] Age/Sex: 67 / F ADM Date: 06/15/23 Loc: MAMMO Attending Dr: Antonio Riggins M.D. Ordering Physician: Antonio Riggins M.D. Results: Date of Service: 06/15/23 Follow Up: Procedure(s): MM tomosynthesis screening BI Accession Number(s): [id number] cc: Antonio Riggins M.D. Patient Name: ERICA CHACON MR#: [id number] : 1955 Exam Date: 06/15/2023 Ordering Doctor: DR Antonio Riggins . RADIOLOGY REPORT PROCEDURE: MM TOMOSYNTHESIS SCREENING BI COMPARISON: MG MAMM SCREEN SWATI W CAD, 02/19/2017. MG MAMM SCREEN 3D SWATI CAD, 02/22/2018. INDICATIONS: screening Calculator Name NCI Breast Cancer Risk Assessment Tool 5 Year Breast Cancer Risk Not Reported. Lifetime Breast Cancer Risk Not Reported. Personal Breast Cancer No Personal Ovarian Cancer No Treatments None Family Cancers None LOCATION: [facility] BREAST COMPOSITION: Scattered areas fibroglandular density. FINDINGS: DIAGNOSTIC CATEGORY 2--BENIGN FINDING. NO CHANGE FROM COMPARISON. Scattered benign-appearing calcifications are present. Scattered benign-appearing lymph nodes are present. This exam includes additional mammographic views for implant evaluation and shows no visible implant abnormality. RIGHT BREAST: No significant suspicious finding. LEFT BREAST: No significant suspicious finding. RECOMMENDATIONS: ROUTINE MAMMOGRAM AND CLINICAL EVALUATION IN 12 MONTHS. PLEASE NOTE: A NORMAL MAMMOGRAM DOES NOT EXCLUDE THE POSSIBILITY OF BREAST CANCER. A CLINICALLY SUSPICIOUS PALPABLE LUMP SHOULD BE BIOPSIED. Dictated by: Elias Arellano MD on 06/24/2023 at 15:37 Approved by: Elias Arellano MD on 06/24/2023 at 15:38 Dictated By: Elias Arellano M.D. Signed By: 06/24/23 1539 DD/ 1538 TD/TT: Esthetician: Procedure Note Radiology, Radiologist, MD - 06/24/2023 [place] [address] Mammography Report Signed Patient: ERICA CHACON AMR#: [id number] : 5Acct:[id number] Age/Sex: 67 / FADM Date: 06/15/23 Loc: MAMMO Attending Dr: Antonio Riggins M.D. Ordering Physician: Antonio Riggins M.D.Results: Date of Service: 06/15/23Follow Up: Procedure(s): MM tomosynthesis screening BI Accession Number(s): [id number] cc: Antonio Riggins M.D. Patient Name: ERICA CHACON MR#: [id number] : 1955 Exam Date: 06/15/2023 Ordering Doctor: DR Antonio Spencer RADIOLOGY REPORT PROCEDURE: MM TOMOSYNTHESIS SCREENING BI COMPARISON: MG MAMM SCREEN SWATI W CAD, 02/19/2017. MG MAMM SCREEN 3DBIL CAD, 02/22/2018. INDICATIONS: screening Calculator Name NCI Breast Cancer Risk Assessment Tool 5 Year Breast Cancer Risk Not Reported. Lifetime Breast Cancer Risk Not Reported. Personal Breast Cancer No Personal Ovarian Cancer No Treatments None Family Cancers None LOCATION: [facility] BREAST COMPOSITION: Scattered areas fibroglandular density. FINDINGS: DIAGNOSTIC CATEGORY 2--BENIGN FINDING. NO CHANGE FROM COMPARISON. Scattered benign-appearing calcifications are present. Scattered benign-appearing lymph nodes are present. This exam includes additional mammographic views for implant evaluation and shows no visible implant abnormality. RIGHT BREAST: No significant suspicious finding. LEFT BREAST: No significant suspicious finding. RECOMMENDATIONS: ROUTINE MAMMOGRAM AND CLINICAL EVALUATION IN 12 MONTHS. PLEASE NOTE: A NORMAL MAMMOGRAM DOES NOT EXCLUDE THE POSSIBILITY OFBREAST CANCER. A CLINICALLY SUSPICIOUS PALPABLE LUMP SHOULD BE BIOPSIED. Dictated by: Elias Arellano MD on 06/24/2023 at 15:37 Approved by: Elias Arellano MD on 06/24/2023 at 15:38 Dictated By: Elias Arellano M.D. Signed By:06/24/23 1539 DD/ 1538 TD/TT: Esthetician: Antonio Riggins MD [facility] Final Result documented in this encounter Visit Diagnoses Not on filedocumented in this encounter Care Teams Guest Services Attendant Relationship Specialty Start Date End Date Antonio Riggins MD [address] [place] [address] PCP - General Family Medicine 10/21/22 Antonio Riggins MD [address] [place] [address] PCP - Jaycee DAVIS 11/25/23 Sonam Gloria LPN [address] [place] [address] Licensed Practical Nurse Family Medicine 04/17/2403/27 Delmar Bowen MA Family Medicine 04/18/24 documented as of this encounter
--- OUTSIDE RECORDS SUMMARY | 2024-10-06 08:02 | XMS_ITS | Encounter Summary ---
Author Organization [facility] Address [address] [facility] [place] [address] Care Team Providers Care Wood Hacker Name Role Phone Antonio Riggins MD Primary Care Provider [phone] Antonio Riggins MD Unavailable Delmar Bowen MA Unavailable Unavailable Encounter Details Date Type Department Care Team (Late st Contact Info) Description 06/29/2024 Orders Only [facility] [address] [place] [address] Barbie Dhaliwal, RAVINDRA [address] [place] [address] Social History Tobacco Use Types Packs/Day Years Used Date Smoking Tobacco: Former Cigarettes 1 50 0 09/1972 - 09/2022 Smokeless Tobacco: Never Social Connection and Isolation Panel [NHANES] A nswer Date Recorded In a typical week, how many times do you talk on the phone with family, friends, or neighbors? Three times a week 09/26/2023 How often do you get togethe r with friends or relatives? Twice a week 09/26/2023 How often do you attend chur ch or restorationist services? Never 09/26/2023 Do you belong to any clubs o r organizations such as restoration groups, unions, fraternal or athletic groups, or [...] Recorded Patient Health Questionnaire-2 Score 0 03/28/2024 [facility] - Occupational Stress Questionnaire Answer Date Recorded [...] place to sleep or slept in a halfway (including now)? No 09/26/2023 Comments Unknown Sex [...] EDT Office Visit [facility] [address] [place] [address] Analisa Mireles MD [address] [place] [address] 04/03/2025 1:00 PM EST Office Visit [facility] [address] [place] [address] Antonio Riggins MD [address] [place] [address] documented as of this encounter Procedures Procedure Name Priority Date/Time Associated Diagnosis Comments DEXA BONE DENSITY Routine 06/29/2024 3:52 PM EST documented in this encounter Results * DEXA bone density (06/29/2024 3:52 PM EST) Anatomical Region Laterality Modality Body Radiographic Sari ging us Barbie Sidhujennifer BINDERY MACHINE FEEDER OFFBEARER IMG DXA PROCEDURES Final Result documented in this encounter Visit Diagnoses Not on filedocumented in this encounter Additional Health Concerns Assessment Noted Time PHQ-9 Depression Total Score: 0 03/28/20 11:00 AM EST documented as of this encounter Care Teams Wood Hacker Relationship Specialty Start Date End Date Antonio Riggins MD [address] [place] [address] PCP - General Family Medicine 10/21/22 Antonio Riggins MD [address] [place] [address] PCP - Jaycee DAVIS 11/25/23 Delmar Bowen MA Family Medicine 04/18/24 documented as of this encounter
--- OUTSIDE RECORDS SUMMARY | 2024-10-06 08:02 | XMS_ITS | Referral Summary ---
Author Organization [facility] Address [address] [place] [address] Care Team Providers Care Office Machines Wirer Name Role Phone Antonio Riggins MD Primary Care Provider [phone] Encounters Date Type Department Care Team Description 09/06/2024 Orders Only [facility] [address] [place] [address] Jessica Rolon MA Pericardial effusion; SALAZAR (dyspnea on exertion) 09/06/2024 2:15 PM EDT Office Visit [facility] [address] [place] [address] Jaime Gonzalez MD Centrilobular emphysema (CMS/HCC) (Primary Dx); HTN (hypertension), benign; Abnormal CT scan, chest; Pericardial effusion from Last 3 Months Allergies No known active allergies Medications albuterol [...] Tobacco user 05/31/2014 Hypothyroidism 05/21/2010 Menopause 05/21/2010 Social History [...] Description 10/10/2024 2:15 PM EDT Office Visit [facility] [address] [place] [address] Jaime Gonzalez MD [address] [facility] [place] [phone] Insurance [employer] [employer] Care Teams Office Machines Wirer Relationship Specialty Start Date End Date Antonio Riggins MD [address] [place] [address] PCP - General Family Medicine 09/06/24
--- OUTSIDE RECORDS SUMMARY | 2024-10-06 08:02 | XMS_ITS | Encounter Summary ---
Author Organization [facility] Address [address] [place] [address] Care Team Providers Care Cook'S Assistant Name Role Phone Unavailable Primary Care Provider Unavailabl e Reason for Visit * Reason Comments Medication Refill Encounter Details Date Type Department Care Team (Late st Contact Info) Description 09/23/2020 Refill [facility] Medicine [address] [facility] [address] [place] [address] Ottoniel Fuchs MD [address] [place], [place] [id number] Medication Refill Social History Tobacco Use Types Packs/Day Years Used Date Smoking Tobacco: Every Day Cigarettes 1 53.2 Started: 08/02/1971 Smokeless Tobacco: Never Comments:Less than a pack a day Alcohol Use Standard Drinks/Week Comments Yes 0 (1 standard drink = 0.6 oz pur e alcohol) Occasionally Social Connection and Isolation Panel [NHANES] A nswer Date Recorded Frequency of Communication with Friends and Fami ly Three times a week 12/29/2018 Frequency of Social Gatherin gs with Friends and Family Once a week 12/29/2018 Attends Scientologist Services Never 12/29 Active Member of Clubs or Organizations No 12/29/2018 Attends Club or Organization Meetings Never 12/29/2018 Marital Status 12/29/2018 AUDIT-C Answer Date Recorded Frequency of Alcohol Consumption 2-3 times a wee k 12/29/2018 Average Number of Drinks 1 or 2 019 Frequency of Binge Drinking Never 08/2018 Overall Financial Resource Strain (CARDIA) Answe r Date Recorded Difficulty of Paying Living Expenses Not hard at all 12/29/2018 PHQ-2 Answer Date Recorded PHQ-2 Score 0 07/27/2018 [facility] Occupat ional Health - Occupational Stress Questionnaire Answer Date Recorded Feeling of Stress Not at all 12/29/2018 Exercise Vital Sign Answer Date Recorde d Days of Exercise per Week 0 days 2018 Minutes of Exercise per Session 0 min 12/29/2018 Hunger Vital Sign Answer Date Recorded Worried About Running Out of Food in the Last Ye ar Never true 12/29/2018 Ran Out of Food in the Last Year Never true 12/29/2018 PRAPARE - Transportation Answer Date Re corded Lack of Transportation (Medical) No 12/29/2018 Lack of Transportation (Non-Medical) No 12/29/2018 Comments No Sex and Gender Information Value Date Recorded Sex Assigned at Not on file Legal Sex Female 5:50 PM EDT Gender Identity Not on file Sexual Orientation Not on file documented as of this encounter Plan of Treatment Not on file documented as of this encounter Goals Goal Patient Goal Type Associated Problems Recent Progress Patient-Stated? Author Patient Stated Care Coordination Yes Iqra Mata MA Note: Quit Smoking. Barriers: lack of motivation Plan for overcoming my barriers: Will discuss plan with provider. Confidence: 8/10 Anticipated Goal Completion Date: 1 year. documented as of this encounter Visit Diagnoses Diagnosis HTN (hypertension), benign Essential hypertension, benign documented in this encounter Additional Health Concerns Assessment Noted Time A fall risk assessment has been complete d for the patient 08/09/2019 10:19 AM EDT A Body Mass Index follow-up plan has been documented for the patient 08/09/2019 2:28 PM EDT documented as of this encounter
--- OUTSIDE RECORDS SUMMARY | 2024-10-06 08:02 | XMS_ITS | Encounter Summary ---
Author Organization [facility] Address [address] [place] [address] Care Team Providers Care Plasterer Foreman Name Role Phone Antonio Riggins MD Primary Care Provider [phone] Antonio Riggins MD Unavailable Sonam Gloria LPN Unavailable Delmar Bowen MA Unavailable Unavailable Encounter Details Date Type Department Care Team (Late st Contact Info) Description 04/17/2024 Orders Only [facility] [address] [facility] [address] [place] [phone] Unallocated, Noms Provider, [address] [place], [place] [id number] Social History Tobacco Use Types Packs/Day Years [...] often do you attend chur ch or nondenominational services? Never 09/26/2023 Do you belong to any clubs o r organizations such as orthodox groups, unions, fraternal or athletic groups, or [...] Recorded Patient Health Questionnaire-2 Score 0 03/28/2024 [facility] of Occupat ional Health - Occupational Stress [...] place to sleep or slept in a snf (including now)? No 09/26/2023 Comments Unknown Sex [...] Visit [facility] [address] [facility] [address] [place] [address] Analisa Mireles MD [address] [place] [address] 04/03/2025 1:00 PM EST Office Visit [facility] [address] [place] [phone] Antonio Riggins MD [address] [place] [address] documented as of this encounter Procedures Procedure Name Priority Date/Time Associated Diagnosis Comments XR CHEST 1 VIEW Routine 04/13/2024 8:56 AM EST documented in this encounter Results * XR chest 1 view (04/13/2024 8:56 AM EST) Anatomical Region Laterality Modality Chest Radiographic Sari ging us Noms Provider Unallocated MD SAUCEDA XR PROCEDURES F inal Result documented in this encounter Visit Diagnoses Not on filedocumented in this encounter Additional Health Concerns Assessment Noted Time PHQ-9 Depression Total Score: 0 03/28/20 11:00 AM EST documented as of this encounter Care Teams Plasterer Foreman Relationship Specialty Start Date End Date Antonio Riggins MD [address] [place] [address] PCP - General Family Medicine 10/21/22 Antonio Riggins MD [address] [place] [address] PCP - Jaycee DAVIS 11/25/23 Sonam Gloria LPN [address] [place] [address] Licensed Practical Nurse Family Medicine 04/17/2403/27 Delmar Bowen MA Family Medicine 04/18/24 documented as of this encounter
--- OUTSIDE RECORDS SUMMARY | 2024-10-06 08:02 | XMS_ITS | Encounter Summary ---
Author Organization [facility] Address [address] [place] [address] Care Team Providers Care Rivet Heater Gas Name Role Phone Antonio Riggins MD Primary Care Provider [phone] Antonio Riggins MD Unavailable Delmar Bowen MA Unavailable Unavailable Encounter Details Date Type Department Care Team (Latest Contact Info) Description 09/25/2024 Travel Social History Tobacco Use Types Packs/Day Years [...] week 09/26/2023 How often do you attend [facility] or advent services? Never 09/26/2023 Do you belong to any clubs o r organizations such as anabaptist groups, unions, fraternal or athletic groups, or [...] Recorded Patient Health Questionnaire-2 Score 0 03/28/2024 [facility] of Occupat ional Health - Occupational Stress [...] place to sleep or slept in a assisted (including now)? No 09/26/2023 Comments Unknown Sex [...] Visit [facility] [address] [facility] [address] [place] [address] Analisa Mireles MD [address] [place] [address] 04/03/2025 1:00 PM EST Office Visit [facility] [address] [place] [phone] Antonio Riggins MD [address] [place] [address] documented as of this encounter Visit Diagnoses Not on filedocumented in this encounter Additional Health Concerns Assessment Noted Time PHQ-9 Depression Total Score: 0 03/28/20 11:00 AM EST documented as of this encounter Care Teams Rivet Heater Gas Relationship Specialty Start Date End Date Antonio Riggins MD [address] [place] [phone] PCP - General Family Medicine 10/21/22 Antonio Riggins MD [address] [place] [address] PCP - Jaycee DAVIS 11/25/23 Delmar Bowen MA Family Medicine 04/18/24 documented as of this encounter
--- OUTSIDE RECORDS SUMMARY | 2024-10-06 08:02 | XMS_ITS | Encounter Summary ---
Author Organization [facility] Address [address] [place] [address] Care Team Providers Care Construction Project Mgr Name Role Phone Antonio Riggins MD Primary Care Provider Antonio Riggins MD Unavailable Delmar Bowen MA Unavailable Unavailable Encounter Details Date Type Department Care Team (Late st Contact Info) Description 09/05/2024 Orders Only [facility] [address] [place] [address] Sukh Lovelace, DO [address] [place] [address] Social History Tobacco Use Types Packs/Day Years [...] often do you attend chur ch or anabaptism services? Never 09/26/2023 Do you belong to any clubs o r organizations such as sikhism groups, unions, fraternal or athletic groups, or [...] Recorded Patient Health Questionnaire-2 Score 0 03/28/2024 [facility] - [facility]ational Stress Questionnaire Answer Date [...] place to sleep or slept in a long-term (including now)? No 09/26/2023 Comments Unknown Sex [...] Visit [facility] [address] [facility] [address] [place] [address] Analisa Mireles MD [address] [facility] [address] [place] [address] 04/03/2025 1:00 PM EST Office Visit [facility] [address] [place] [phone] Antonio Riggins MD [address] [place] [address] documented as of this encounter Procedures Procedure Name Priority Date/Time Associated Diagnosis Comments NM PET W/ CT SCAN SKULL BASE TO MIDTHIGH Routine 09/05/2024 2:22 PM EDT documented in this encounter Results * NM PET W/ CT SCAN SKULL BASE TO MIDTHIGH (09/05/2024 2:22 PM EDT) Anatomical Region Laterality Modality Radiographic Sari ging Sukh Lovelace DO IMG XR PROCEDURES Final Result documented in this encounter Visit Diagnoses Not on filedocumented in this encounter Additional Health Concerns Assessment Noted Time PHQ-9 Depression Total Score: 0 03/28/20 11:00 AM EST documented as of this encounter Care Teams Construction Project Mgr Relationship Specialty Start Date End Date Antonio Riggins MD [address] [place] [address] PCP - General Family Medicine 10/21/22 Antonio Riggins MD [address] [place] [address] PCP - Jaycee DAVIS 11/25/23 Delmar Bowen MA Family Medicine 04/18/24 documented as of this encounter
--- OUTSIDE RECORDS SUMMARY | 2024-10-06 08:02 | XMS_ITS | Encounter Summary ---
Author Organization [facility] Address [address] [facility] [place] [address] Care Team Providers Care Building Supplies Salesperson Retail Name Role Phone Antonio Riggins MD Primary Care Provider [phone] Antonio Riggins MD Unavailable Delmar Bowen MA Unavailable Unavailable Encounter Details Date Type Department Care Team (Late st Contact Info) Description 06/05/2024 Orders Only [facility] [address] [place] [address] Barbie Dhaliwal, RAVINDRA [address] [place] [address] Social History Tobacco Use Types Packs/Day Years [...] often do you attend chur ch or yazidism services? Never 09/26/2023 Do you belong to any clubs o r organizations such as uatsdin groups, unions, fraternal or athletic groups, or [...] Recorded Patient Health Questionnaire-2 Score 0 03/28/2024 [facility] - [facility]ational Stress Questionnaire Answer [...] place to sleep or slept in a retirement (including now)? No 09/26/2023 Comments Unknown Sex [...] [address] [place] [address] Analisa Mireles MD [address] [place] [address] 04/03/2025 1:00 PM EST Office Visit [facility] [address] [place] [phone] Antonio Riggins MD [address] [place] [address] documented as of this encounter Visit Diagnoses Not on filedocumented in this encounter Additional Health Concerns Assessment Noted Time PHQ-9 Depression Total Score: 0 03/28/20 11:00 AM EST documented as of this encounter Care Teams Building Supplies Salesperson Retail Relationship Specialty Start Date End Date Antonio Riggins MD [address] [place] [address] PCP - General Family Medicine 10/21/22 Antonio Riggins MD [address] [place] [address] PCP - Jaycee DAVIS 11/25/23 Delmar Bowen MA Family Medicine 04/18/24 documented as of this encounter
--- OUTSIDE RECORDS SUMMARY | 2024-10-06 08:02 | XMS_ITS | Patient Health Record ---
Author Organization [facility] Address [address] [place] [address] Care Team Providers Care Stippler Name Role Phone Antonio Riggins MD Primary Care Provider UnavailAlis Crow Unavailable [phone] Allergies No Known Allergies Results Component Value Reference Range Notes CT Chest w/o contrast Reviewed date:08/14/2024 07:46:29 AM Interpretation: Performing Lab: Notes/Report: CT chest wo con Reviewed date:08/14/2024 07:29:18 AM Interpretation: Performing Lab: Notes/Report: Source Facility: [place] [address] CT Scan Report Signed Patient: ERICA CHACON MR#: [id number] : 1955 Acct:[id number] Age/Sex: 69 / F ADM Date: 08/11/24 Loc: CT Attending Dr: Alis Head D.O. Ordering Physician: Alis Head D.O. Date of Service: 08/11/24 Procedure(s): CT chest wo con Accession Number(s): [id number] cc: Antonio Riggins M.D. [place] [address] Patient Name: ERICA CHACON MRN: [id number]:[id number] date: 1955 Sex: F Assigned Patient Location: CT Current Patient Location: CT Accession/Order Number: [id number] Exam Date: 08/11/2024 14:51 Report Date: 08/11/2024 15:03 At the request of: ALIS HEAD DO Procedure: CT chest wo con CT Chest without contrast TECHNIQUE: Axial imaging with 2-D reconstruction. The CT exam was performed using one or more the following dose reduction techniques: Automated exposure control, adjustment of the MA and/or Kv according to patient size, or use of the iterative reconstruction technique. History: Follow-up pulmonary nodules. COMPARISON: CT lung screening 07/10/[address] 07/22/2023 THYROID: Unremarkable TRACHEA AND BRONCHI: Diffuse bronchial wall thickening. Bronchiectasis lower lobes. ESOPHAGUS: Unremarkable. HEART: Within normal limits PERICARDIAL EFFUSION: Small CORONARY ARTERY CALCIFICATION: None MEDIASTINUM: No adenopathy. No pneumoperitoneum. No mediastinal hematoma. PULMONARY GREGORY: No hilar mass or adenopathy is seen. THORACIC AORTA Unremarkable LUNG NODULE similar small nodularity. LUNGS: Scattered lung scarring. Emphysema. Scattered tree-in-bud nodularity involving the right lung. PLEURAL EFFUSION: None PNEUMOTHORAX: No pneumothorax seen. CHEST WALL: Bilateral breast implantation AXILLA:Unremarkable BONY STRUCTURES Intact UPPER ABDOMEN: Images of the upper abdomen are noncontributory. CT/CT chest wo con IMPRESSION: Redemonstration of a band of nodular consolidation posterior portion of the right lung base. Not significantly change from recent prior examination. This is a newly developed finding compared to Prior examination 07/22/2023. This may still represent scarring, however malignancy should be excluded. May be consideration for PET/CT imaging. A similar tree-in-bud nodularity of the right lung. Impression dictated by: Jovanny Swanson M.D.08/11/2024 3:03 PM Dictation Location: [place] [address] Electronically authenticated by: [id number] Y Date: 08/11/2024 15:03 Dictated By: Jovanny Swanson D.O. Signed By: 08/11/24 1506 DD/ 1503 TD/TT: Automatic Corn Grinder Operator: [place] [address] CT Scan Report Signed Patient: ERICA CHACON MR#: [id number] : 1955 Acct:[id number] Age/Sex: 69 / F ADM Date: 08/11/24 Loc: CT Attending Dr: Alis Head D.O. Ordering Physician: Alis Head D.O. Date of Service: 08/11/24 Procedure(s): CT [address] [facility] wo con Accession Number(s): [id number] cc: Antonio Riggins M.D. [place] [address] Patient Name: ERICA CHACON MRN: [facility]:[id number] date: 1955 Sex: F Assigned Patient Location: CT Current Patient Loca tion: CT Accession/Order Numb er: [id number] Exam Date: 08/11/2024 14:51 Report Date: 08/11/2024 15:03 At the request of: ALIS HEAD DO Procedure: CT chest wo con CT Chest without contrast TECHNIQUE: Axial marian ging with 2-D reconstruction. The CT exam was performed using one or more th e following dose reduction techniques: Automated exposure control, adjustment of the MA and/or Kv according to patient size, or use of the iterative reconstruction technique. History: Follow-up pulmonary nodules. COMPARISON: CT lung screening 07/10/[address] 07/22/2023 THYROID: Unremarkable TRACHEA AND BRONCHI: Diffuse bronchial wall thickening. Bronchiectasis lower lobes. ESOPHAGUS: Unremarkable. HEART: Within normal limits PERICARDIAL EFFUSION : Small CORONARY ARTERY CALCIFICATION: None MEDIASTINUM: No adenopathy. No pneumoperitoneum. No mediastinal hematoma. PULMONARY GREGORY: No h ilar mass or adenopathy is seen. THORACIC AORTA Unremarkable LUNG NODULE similar small nodularity. LUNGS: Scattered neil g scarring. Emphysema. Scattered tree-in-bud nodularity involving the right lung. PLEURAL EFFUSION: None PNEUMOTHORAX: No pneumothorax seen. CHEST WALL: Bilatera l breast implantation AXILLA:Unremarkable BONY STRUCTURES Intact UPPER ABDOMEN: Image s of the upper abdomen are noncontributory. C T/CT chest wo con IMPRESSION: Redemonstration of a band of nodular consolidation posterior portion of the right lung base. Not significantly change from recent prior examination. This is a newly developed finding compared to Prior examination 07/22/2023. This may still represent scarring, however malignancy should be excluded. May be consideration for PET/CT imaging. A similar tree-in-bud nodularity of the ri ght lung. Impression dictated by: Jovanny Swanson M.D.08/11/2024 3:03 PM Dictation Location: [place] [address] Electronically authenticated by: [id number] Y Date: 08/11/2024 15:03 Dictated By: Karlos Swanson D.O. Signed By: 08/11/24 1506 DD/ 1503 TD/TT: Automatic Corn Grinder Operator: CT Chest Low Dose for Screen ing* Reviewed date:07/11/2024 09:18:32 AM Interpretation: Performing Lab: Notes/Report: CT lung screening low-dose Reviewed date:07/11/2024 06:52:19 AM Interpretation: Performing Lab: Notes/Report: Source Facility: [place] [address] CT Scan Report Signed Patient: ERICA CHACON MR#: [id number] : 1955 Acct:[id number] Age/Sex: 68 / F ADM Date: 07/10/24 Loc: CT Attending Dr: Alis Head D.O. Ordering Physician: Alis Head D.O. Date of Service: 07/10/24 Procedure(s): CT lung screening low-dose Accession Number(s): [id number] cc: Antonio Riggins M.D. [place] [id number] Patient Name: ERICA CHACON MRN: [id number] date: 1955 Sex: F Assigned Patient Location: CT Current Patient Location: CT Accession/Order Number: [id number] Exam Date: 07/10/2024 13:47 Report Date: 07/10/2024 13:51 At the request of: ALIS HEAD DO Procedure: CT lung screening low-dose CT CHEST WITHOUT CONTRAST, LOW DOSE SCREENING: CLINICAL DATA: A 68-year old current smoker COMPARISON: CT chest 07/22/2023 TECHNIQUE: Noncontrast axial CT scan images of the chest were obtained under the low dose screening CT protocol. Coronal and sagittal reconstructed images were also submitted. FINDINGS: Mediastinum : Suboptimal evaluation due to low-dose technique. Thoracic aorta appears normal in caliber. Pulmonary trunk appears nondilated. Small pericardial effusion. No lymphadenopathy. The esophagus is grossly unremarkable. Lungs: No focal consolidation, pneumothorax or pleural effusion. Trachea and distal airways appear patent. Diffuse bronchial wall thickening with bronchiectasis involving the lower lobes.. Scattered areas of lung scarring. Emphysema. Scattered tree-in-bud nodularity predominantly involving the right lung. New area of presumed masslike scarring involving the basilar segments of the right lower lobe measuring 23 mm in greatest axial dimension. Please see series 4 image 19. Upper abdomen: No acute findings. Bony thorax and chest wall: Soft tissues surrounding the chest wall demonstrate no acute findings. Osseous structures demonstrate degenerative change. CT/CT lung screening low-dose IMPRESSION: NEW AREA OF PRESUMED MASSLIKE SCARRING INVOLVING THE BASILAR SEGMENTS OF THE RIGHT LOWER LOBE MEASURING 23 MM IN GREATEST AXIAL DIMENSION. SCATTERED TREE-IN-BUD NODULARITY. THERE IS ASSOCIATED EMPHYSEMA FINDINGS SUGGEST BRONCHIOLITIS LIKELY RELATING TO SMOKING. LUNG - RADS Version 1.0 Assessment: Category 4B, Very Suspicious (Findings for which additional diagnostic testing and/or tissue sampling is recommended). Management: Chest CT with or without contrast, PET/CT and/or tissue sampling depending on the probability of malignancy and comorbidities. PET/CT may be used when there is a > 8 mm solid component. For new large nodules that develop on an annual repeat screening CT, a 1 month LDCT may be recommended to address potentially infectious or inflammatory conditions. Impression dictated by: Bob Painting Jr., Bhupendra07/10/2024 1:51 PM Dictation Location: [place] [address] Electronically authenticated by: [id number] Y Date: 07/10/2024 13:51 Dictated By: Bob Painting M.D. Signed By: 07/10/24 1354 DD/ 1351 TD/TT: Automatic Corn Grinder Operator: [place] [address] CT Scan Report Signed Patient: ERICA CHACON MR#: [id number] : 1955 Acct:[id number] Age/Sex: 68 / F ADM Date: 07/10/24 Loc: CT Attending Dr: Alis Head D.O. Ordering Physician: Alis Head D.O. Date of Service: 07/10/24 Procedure(s): CT neil g screening low-dose Accession Number(s): [id number] cc: Antonio Riggins M.D. [place] [address] Patient Name: ERICA CHACON MRN: [id number] date: 1955 Sex: F Assigned Patient Location: CT Current Patient Loca tion: CT Accession/Order Numb er: [id number] Exam Date: 07/10/2024 13:47 Report Date: 07/10/2024 13:51 At the request of: ALIS HEAD DO Procedure: CT lung screening low-dose CT CHEST WITHOUT CONTRAST, LOW DOSE SCREENING: CLINICAL DATA: A 68- year old current smoker COMPARISON: CT chest 07/22/2023 TECHNIQUE: Noncontra st axial CT scan images of the chest were obtained under the low dose screeni ng CT protocol. Coronal and sagittal reconstructed images were also submitted. FINDINGS: Mediastinum : Subopt imal evaluation due to low-dose technique. Thoracic aorta appears normal in caliber. Pulmonary trunk appears nondilated. Small pericardial effusion . No lymphadenopathy. The esophagus is grossly unremarkable. Lungs: No focal consolidation, pneumothorax or pleural effusion. Trachea and distal airways appea r patent. Diffuse bronchial wall thickening with bronchiectasis invol ving the lower lobes.. Scattered areas of lung scarring. Emphysema. Scattered tree-in-bud nodularity predominantly involving the right lung. New area of presumed masslike scarring involving the basilar segments of the right lower lobe measuring 23 mm in greatest axial dimension. Please see series 4 image 19. Upper abdomen: No ac [place] findings. Bony thorax and ches t wall: Soft tissues surrounding the chest wall demonstrate no acute findings. Osseous structures demonstrate degenerative change. C T/CT lung screening low-dose IMPRESSION: NEW AREA OF PRESUMED MASSLIKE SCARRING INVOLVING THE BASILAR SEGMENTS OF THE RIGHT LOWER LOBE MEASURING 23 MM IN GREATEST AXIAL DIMENSION. SCATTERED TREE-IN-BU D NODULARITY. THERE IS ASSOCIATED EMPHYSEMA FINDINGS SUGGEST BRONCHIOLITI S LIKELY RELATING TO SMOKING. LUNG - RADS Version 1.0 Assessment: Category 4B, Very Suspicious (Findings for which additional diagnostic testing and/or tissue sampling is recommended). Management: Chest CT with or without contrast, PET/CT and/or tissue sampling depending on the probability of malignancy and comorbidities. PET/CT may be used when there is a > 8 mm solid component. For new large nodules that develop on an annual repeat screening CT, a 1 month LDCT may be recommended to address potentially infectious or inflammatory conditions. Impression dictated by: Bob Painting Jr., D.O.07/10/2024 1:51 PM Dictation Location: [place] [address] Electronically authenticated by: [id number] Y Date: 07/10/2024 13:51 Dictated By: Bob Painting M.D. Signed By: 07/10/24 1354 DD/ 1351 TD/TT: Automatic Corn Grinder Operator: RT pulmonary function test Reviewed date:02/01/2024 06:55:38 AM Interpretation: Performing Lab: Notes/Report: Source Facility: [place] [address] Respiratory Report Signed Patient: ERICA CHACON MR#: [id number] : 1955 Acct:[id number] Age/Sex: 68 / F ADM Date: 01/31/24 Loc: CARD Attending Dr: Alis Head D.O. Ordering Physician: Alis Head D.O. Date of Service: 01/31/24 Procedure(s): RT pulmonary function test Accession Number(s): [id number] cc: [facility] Test Date: 2024-01-31 Pat Name: ERICA CHACON Department: Room: - Gender: Female Time Checker: : 1955 Requested By: Alis Head Order Number: [id number] Reading MD: Alis Head Interpretive Statements Pulmonary function testing was completed according to ATS criteria. Findings were considered accurate and reproducible. Both pre- and post-bronchodilator values utilized for spirometry. Spirometry (based on pre-bronchodilator values): -FEV1/FVC: Decreased @ 57% -FEV1: Moderately-severe reduction @ 50% -FVC: Reduced @ 67% -LKU84-89%: Reduced @ 25% -There is no significant bronchodilator response. Lung volumes by plethysmography: -RV: Increased @ 158% -TLC: Normal @ 110% Diffusion capacity: -DLCO: Moderately-severe reduction @ 51% when corrected for Hb 14.6g/dL Flow-volume loop: -Severe obstructive pattern Impressions: -Moderately severe obstruction on bronchoscopy without a bronchodilator response. An elevated RV suggests air trapping. There is a moderately-severe reduction in diffusion capacity. Overall study is compatible with COPD/emphysema. Clinical correlation required. Clinical correlation required. Electronically Signed On 02-01-2024 6:46:23 EDT by Alis Head Dictated By: Alis Head D.O. Signed By: 02/01/2446 02/01/24645 DD/ 0900 TD/TT: Automatic Corn Grinder Operator: [place] [address] Respiratory Report Signed Patient: ERICA CHACON MR#: [id number] : 1955 Acct:[id number] Age/Sex: 68 / F ADM Date: 01/31/24 Loc: CARD Attending Dr: Alis Head D.O. Ordering Physician: Alis Head D.O. Date of Service: 01/31/24 Procedure(s): RT pulmonary function test Accession Number(s): [id number] cc: [facility] Test Date: 2024-01-31 Pat Name: ERICA CHACON Department: 80 Room: - Gender: Female Time Checker: : 1955 Requ ested By: Alis Head Order Number: [id number] Reading MD: Alis Head Interpretive Statements Pulmonary function testing was completed according to ATS criteria. Findings were considered accu rate and reproducible. Both pre- and post-bronchodilator values utilized for spirometry. Spirometry (based on pre-bronchodilator values): -FEV1/FVC: Decreased @ 57% -FEV1: Moderately-se finesse reduction @ 50% -FVC: Reduced @ 67% -RHE10-79%: Reduced @ 25% -There is no signifi cant bronchodilator response. Lung volumes by plethysmography: -RV: Increased @ 158% -TLC: Normal @ 110% Diffusion capacity: -DLCO: Moderately-se finesse reduction @ 51% when corrected for Hb 14.6g/dL Flow-volume loop: -Severe obstructive pattern Impressions: -Moderately severe obstruction on bronchoscopy without a bronchodilator response. An elevat ed RV suggests air trapping. There is a moderately-severe reduction in diffusi on capacity. Overall study is compatible with COPD/emphysema. Clin ical correlation required. Clinical correlation required. Electronically Dayan d On 02-01-2024 6:46:23 EDT by Alis Head Dictated By: Amber Head D.O. Signed By: 02/01/2464502/01/24645 DD/ 9 TD/TT: Automatic Corn Grinder Operator: HEMOGLOBIN Reviewed date:02/01/2024 06:54:00 AM Interpretation: Performing Lab: Notes/Report: [facility] , Hemoglobin 14.6 12.0-16.0 g/dL Performing Lab: see note ML - [facility] LB PET/CT Skull Base to Mid-Thi gh Reviewed date:09/05/2024 09:58:32 AM Interpretation: Performing Lab: Notes/Report: PET skull to mid thigh Reviewed date:09/05/2024 01:47:34 PM Interpretation: Performing Lab: Notes/Report: Source Facility: [facility]-[address] [place] [address] [place] [address] PET Report Signed Patient: ERICA CHACON MR#: [id number] : 1955 Acct:[id number] Age/Sex: 69 / F ADM Date: 09/04/24 Loc: PETCT Attending Dr: Alis Head D.O. Ordering Physician: Alis Head D.O. Date of Service: 09/04/24 Procedure(s): PET skull to mid thigh Accession Number(s): [id number] cc: Antonio Riggins M.D.; Alis Head D.O. [place] [address] Patient Name: ERICA CHACON MRN: [id number] date: 1955 Sex: F Assigned Patient Location: PETCT Current Patient Location: Accession/Order Number: [id number] Exam Date: 09/05/2024 08:48 Report Date: 09/05/2024 09:12 At the request of: ALIS HEAD DO Procedure: PET skull to mid thigh PET/CT WITH FUSION COMPARISON: CT chest 08/11/2024 CLINICAL DATA: Right lower lobe nodular consolidation Following the intravenous administration of 12.48 mCi of FDG, SPECT imaging in 3 planes was performed from the level the orbits through the groin. The patient's blood glucose level at the time of injection was 109 mg/dL. Spiral unenhanced CT was also performed for anatomic localization. The PET and CT images were fused. This CT exam was performed using one or more following dose reduction techniques: Automated exposure control, adjustment of the mA and/or kV according to patient size, or use of iterative reconstruction technique. NECK: No enlarged or hypermetabolic lymph nodes are identified. Mild increased uptake is seen within the oral cavity, asymmetric posteriorly on the left near the palatine tonsil. It is uncertain if this is still physiologic. Physiologic activity is also present at the larynx. Bilateral maxillary mucosal thickening and/or fluid is seen. CHEST: No enlarged or hypermetabolic mediastinal, hilar or axillary lymph nodes are present. No pathologic pulmonary FDG uptake is seen including the area of concern on the recent comparison chest CT at the right lower lobe. This finding does show some interval improvement on the CT images. There is mild increased uptake at the back in the vicinity of the proximal ribs, left greater than right. This may be physiologic. ABDOMEN/PELVIS: There are no FDG avid hepatic or adrenal lesions. No enlarged or pathologic or abdominal or pelvic lymph nodes are present. There is physiologic activity involving the urinary tract and bowel. PET/PET skull to mid thigh IMPRESSION: IMPROVING PARENCHYMAL CHANGES AT THE RIGHT LOWER LOBE WHERE THERE IS NO ASSOCIATED HYPERMETABOLISM. ASYMMETRIC INCREASED UPTAKE AT THE LEFT ORAL CAVITY IN THE REGION OF THE TONSIL. THIS MAY BE PHYSIOLOGIC HOWEVER CLINICAL CORRELATION IS SUGGESTED. NO OTHER SIGNIFICANT PET SCAN FINDINGS. Impression dictated by: Mary Ordaz M.D. 09/05/2024 9:12 AM Dictation Location: [place] [address] Electronically authenticated by: [id number] Y Date: 09/05/2024 09:12 Dictated By: Mary Ordaz M.D. Signed By: 09/05/24913 DD/ 1 TD/TT: Automatic Corn Grinder Operator: [address] [address] PET Report Signed Patient: ERICA CHACON MR#: [id number] : 1955 Acct:[id number] Age/Sex: 69 / F ADM Date: 09/04/24 Loc: PETCT Attending Dr: Alis Head D.O. Ordering Physician: Alis Head D.O. Date of Service: 09/04/24 Procedure(s): PET sk ull to mid thigh Accession Number(s): [id number] cc: Antonio Riggins M.D; Alis Head D.O. [address] [address] Patient Name: ERICA CHACON MRN: [id number] date: 1955 Sex: F Assigned Patient Location: PETCT Current Patient Location: Accession/Order Numb er: [id number] Exam Date: 09/05/2024 08:48 Report Date: 09/05/2024 09:12 At the request of: ALIS HEAD DO Procedure: PET skull to mid thigh PET/CT WITH FUSION COMPARISON: CT chest 08/11/2024 CLINICAL DATA: Right lower lobe nodular consolidation Following the intrav enous administration of 12.48 mCi of FDG, SPECT imaging in 3 planes was perform ed from the level the orbits through the groin. The patient's blood gluc ose level at the time of injection was 109 mg/dL. Spiral unenhanced CT was al so performed for anatomic localization. The PET and CT images were fused. T his CT exam was performed using one or more following dose reduction techniques: Automated exposure control, adjustment of the mA and/or kV according to patient size, or use of iterative reconstruction technique. NECK: No enlarged or hypermetabolic lymph nodes are identified. Mild increased uptake is seen within the oral cavity, asymmetric posteriorly on the left near the palati ne tonsil. It is uncertain if this is still physiologic. Physiologic activity is also present at the larynx. Bilateral maxillary mucosal thickening a nd/or fluid is seen. CHEST: No enlarged o r hypermetabolic mediastinal, hilar or axillary lymph nodes are present. N o pathologic pulmonary FDG uptake is seen including the area of concern on t he recent comparison chest CT at the right lower lobe. This finding does sh ow some interval improvement on the CT images. There is mild increased uptak e at the back in the vicinity of the proximal ribs, left greater than right. This may be physiologic. ABDOMEN/PELVIS: Ther e are no FDG avid hepatic or adrenal lesions. No enlarged or pathologic or abdominal or pelvic lymph nodes are present. There is physiologic activity involving the urinary tract and bowel. PET/PET skull to mid thigh IMPRESSION: IMPROVING PARENCHYMA L CHANGES AT THE RIGHT LOWER LOBE WHERE THERE IS NO ASSOCIATED HYPERMETABOLISM. ASYMMETRIC INCREASED UPTAKE AT THE LEFT ORAL CAVITY IN THE REGION OF THE TONSIL. THIS MAY BE PHYSIOLOGIC HOWEVER CLINICAL CORRELATION IS SUGGESTED. NO OTHER SIGNIFICANT PET SCAN FINDINGS. Impression dictated by: Mary Ordaz M.D. 09/05/2024 9:12 AM Dictation Location: [place] [address] Electronically authenticated by: [id number] Y Date: 09/05/2024 09:12 Dictated By: Mary Ordaz M.D. Signed By: 09/05/2414 DD/ 1 TD/TT: Automatic Corn Grinder Operator: Reason For Referral Reason [facility] Cardiology: Wor sening dyspnea despite unchanged PFT over past 6 years; strong family history of cardiac disease; active smoker. Please evaluate for cardiac causes of dyspnea. Diagnosis 1 Shortness of breath (R06.02) Referral Organization [facility] Referring Provider First Name Alis Referring Provider Last Name Radu Referring Provider Speciality Pulmonolog y Referred Provider Darinel Joya Referred Provider Specialty Cardiology General Notes Tyler Ritchie 08/23 02:10:47 PM >Referral was given to Gwen Del Angel at [facility] Cardiology. Gwen will contact the patient to schedule an appt., Tyler Ritchie 09/04/2024 09:46:26 AM >Per Agata at [facility]-Patient is scheduled for an appt. on 09/06/2024 at 1430. Patient is aware of the appt. date and time via telephone., ChauTyler 09/06/2024 04:41:26 PM >Consult note received from [facility]. Scanned to . Referral Priority Routine Referral Appointment Date 09/06/2024 Reason Abnormal PET imaging of palatine tonsil - please assess Diagnosis 1 Abnormal findings on diagnostic imaging of skull and head, not elsewhere classified (R93.0) Referral Organization [facility] Referring Provider First Name Alis Referring Provider Last Name Radu Referring Provider [...] was contacted and scheduled for 09/21/2024 at 0920., Tyler Ritchie 09/20/2024 03:40:03 PM >I called and spoke [...] Referral Priority Routine Referral Appointment Date 09/19/2024 Medications Medication SIG (Take, Route, Frequency, Duration) Notes Start Date End Date Status Calcium 500 MG 1 tablet with meals Orally Twice a day Active Trelegy Ellipta 100-62.5-25 MCG/ACT 1 puff Inhalation [...] as needed Inhalation every 4 hrs Active Immunizations Vaccine Route Administration Date Status Comme nts Arexvy Unknown 02/26/2023 Administered Flu, Fluad (25525) 65 yrs + High Dose Seasonal (4484-8449) Unknown 03/01/2024 Administered Flu, Fluzone High-Dose (2022 -2023) (41157) 65 yrs+ Unknown 03/08/2023 Administered Pneumococcal (Pneumovax 23) Unknown 02/12/2015 Administ ered Pneumococcal (Prevnar 13) Unknown 11/02/2022 Administer ed Pneumococcal (Prevnar 20) Unknown 11/02/2022 Administer ed SARS-COV-2 (COVID 19 Rickey 0.5mL) Mayank and Mayank Unknown 02/04/2021 Administered Tdap (Boostrix) Unknown 12/25/2015 Administered ZOSTER (SHINGLES) VACCINE (HZV) Unknown 12/29/2018 Admi nistered Social History Tobacco Use: Social History Observation Description Date Details (start date - stop date) Current Smoker NA - NA Tobacco Control (Standard) Question Answer Notes Tobacco use: Current every day smoker Additional Findings: Tobacco user Light cigarett e smoker (1-9 cigs/day) Problems Problem Type SNOMED Code ICD Code Onset Dates Problem Status W/U Status Risk Notes Problem 383858930 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) Active confirmed Problem Centrilobular emphysema (11055234) Centrilobular emphysema (J43.2) Active confirmed Problem Bronchiolectasis (30502000) Bronchiectasis, uncomplicated (J47.9) Active confirmed Problem 618474467 Chronic respiratory failure with hypoxia (J96.11) Active confirmed Problem Long-term current use of inhaled steroid (910207161) buttermaker (current) use of inhaled steroids (Z79.51) Active confirmed Problem Chronic sinusitis (23843787) Chronic sinusitis (J32.9) Active confirmed Problem 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) Cigarette nicotine dependence with nicotine-induced disorder (F17.219) Active confirmed Problem Multiple pulmonary nodules (324573146) Multiple pulmonary nodules (R91.8) Active confirmed Problem Rhinitis sicca (12353652) Rhinitis sicca (J31.0) Active confirmed Vital Signs Heart Rate 77 /min 08/23/2024 Temperature 96.7 degrees Fahrenheit 08/23/2024 Respiratory Rate 18 /min 08/23/2024 Oximetry 92 % 08/23/2024 Blood pressure diastolic 84 mm Hg 08/23/2024 Height 64 in 08/23/2024 Blood pressure systolic 154 mm Hg 08/23/2024 Weight 172.2 lbs 08/23/2024 BMI 29.55 kg/m2 08/23/2024 Procedures Procedure Date Ordered Date Performed Result Body Sit e PFT (55805, 03578, 93056) 01/26/2024 01/31/2024 N/A Smoking/Tobacco Counseling 3 min up to 10-performed 01/26/2024 01/26/2024 N/A Encounters Encounter Location Date Provider Diagnosis Pulmonary Medicine [address] [address] 07/11/2024 [facility] Multiple pulmonary nodules R91.8 [address]monary [address] [address] 09/05/2024 [facility] Abnormal findings on diagnostic imaging of skull and head, not elsewhere classified R93.0 Pulmonary Medicine [place] [address] [place] [address] 10[facility]18/20[facility] [place] [address] [place] [address] 02/03/2024 [facility] Centrilobular emphys gina J43.2 Pulmonary Medicine [place] [address] [place] [address] 01/26/2024 [facility] Bronchiectasis, uncomplicated J47.9 ; Cigarette nicotine dependence with nicotine-induced disorder F17.219 ; Multiple pulmonary nodules R91.8 ; Centrilobular emphysema J43.2 ; custodial (current) use of inhaled steroids Z79.51 and Obesity, class 1 E66.811 Pulmonary Medicine [place] [address] [place] [address] 02/23/2024 [facility] Bronchiectasis, uncomplicated J47.9 ; Cigarette nicotine dependence with nicotine-induced disorder F17.219 ; Multiple pulmonary nodules R91.8 ; Centrilobular emphysema J43.2 ; buttermaker (current) use of inhaled steroids Z79.51 and Obesity, class 1 E66.811 Pulmonary Medicine [place] [address] [place] [address] 08/23/2024 [facility] Multiple pulmonary nodules R91.8 ; Centrilobular emphysema J43.2 ; Bronchiectasis, uncomplicated J47.9 ; Cigarette nicotine dependence with nicotine-induced disorder F17.219 ; Shortness of breath R06.02 ; custodial (current) use of inhaled steroids Z79.51 and Obesity, class 1 E66.811 Assessments Encounter Date Diagnosis (ICD Code) Assessment Notes Treatment Notes Treatment Clinical Notes Section Notes 01/26/2024 Bronchiectasis, uncomplicated (ICD-10 - J47.9) Auqu-od-nwaz encounter performed with the patient to document continued need for a nebulizer with nebulized medications.-Curren t nebulized medications: Sodium chloride 0.9%-Symptom control: Excellent mobilization of secretions, along with PEP-Reported side or adverse effects: Denies-Recommendati ons: Secretions are controlled with saline nebs + PEP. No changes today, do not feel we need to look into a vest at this time. 02/23/2024 Bronchiectasis, uncomplicated (ICD-10 - J47.9) Emlb-sr-teco encounter performed with the patient to document continued need for a nebulizer with nebulized medications.-Curren t nebulized medications: Sodium chloride 0.9%-Symptom control: No issues with excessive secretions or congestion-Reported side or adverse effects: Denies-Recommendati ons: Patient continues to have excellent control with saline nebs and PEP. Continue current treatment regimen. I do not see a need to initiate vest therapy at this current time. 08/23/2024 Multiple pulmonary nodules (ICD-10 - R91.8) [...] before activities to see if that helps. 02/03/2024 Centrilobular emphysema (ICD-10 - J43.2) 07/11/2024 Multiple pulmonary nodules (ICD-10 - R91.8) 09/05/2024 Abnormal findings on diagnostic imaging of skull and head, not elsewhere classified (ICD-10 - R93.0) 08/23/2024 Bronchiectasis, uncomplicated (ICD-10 - J47.9) Cgfc-qs-jdrd encounter performed with the patient to document continued need for a nebulizer with nebulized medications.-[place]ok[place] christopher nebulized medications: Sodium chloride 0.9%-Symptom control: Saline and PEP are helping to control her secretions-Reported side or adverse effects: Denies-Recommendati ons: Continue current pulmonary toilet with saline nebs + PEP. She will additionally require the nebulizer for [place]ayre. 02/23/2024 Cigarette nicotine dependence with nicotine-induced disorder (ICD-10 - F17.219) Discussed smoking cessation yet again. She is smoking 1/2 pack a day. She voiced that she knows she needs to quit, but finds it addicting. She still has a Chantix available for her to use. She did take a brochure about smoking cessation classes. LDCT is due 06/2024. 01/26/2024 Cigarette nicotine dependence with nicotine-induced disorder (ICD-10 - F17.219) Discussed smoking cessation for 4 minutes. Patient stopped smoking in August 2022, but abruptly restarted November 2023. The patient states she fell off the wagon and wants to stop smoking. She states that she tried Chantix in the past which really helped, but it was not covered by insurance. Patient voiced she would like to restart it. It is now available generic verenicline, so starter and continuing packs were prescribed; there may still be a a prior authorization required for this. I brought up Wellbutrin as another option, but she voiced she would rather pursue Chantix for now. LDCT is due 06/2024. 01/26/2024 Multiple pulmonary nodules (ICD-10 - R91.8) Unchanged pulmonary nodules - largest 6mm in LLL on chest CTA 07/22/2023 compared to 09/29/2022. Will be monitored via LDCT which is due 06/2024. 02/23/2024 Multiple pulmonary nodules (ICD-10 - R91.8) As before, the pulmonary nodules are unchanged - largest 6mm in LLL on chest CTA 07/22/2023 compared to 09/29/2022. Will be monitored via LDCT which is due 06/2024. 08/23/2024 Cigarette nicotine dependence with nicotine-induced disorder [...] cardiac evaluation was ~15 years ago at [facility] - she cannot remember exactly what she [...] 2017 to 2023, yet SALAZAR is increasing. 02/23/2024 Centrilobular emphysema (ICD-10 - J43.2) Prior treatment: Trelegy 100 >>>>> Breo 100 Patient has had a marked improvement in symptom control with Trelegy over Breo. She reports no adverse effects. She has not required albuterol since starting Trelegy. Will continue Trelegy for now. Encourage patient to work at smoking cessation. Amazingly, there has been no significant change between PFTs from 09/14/2017 to 01/31/2024. I did voice concern that the beneficial effect of Trelegy may wane with continued smoking. Follow-up 6 months. 01/26/2024 Centrilobular emphysema (ICD-10 - J43.2) Patient's breathing previously was controlled with Breo, but now finds herself more symptomatic. It has markedly worsened since restarting smoking in November, but she believes that there was a slow decline prior to that time. Discussed that her dyspnea likely is related to underlying COPD, worsened with smoking, but there is a possiblity of an underlying cardiac condition contributing (given her smoking history). Her last PFT was 2017. I recommended repeating it for comparison to better determine if this is worsening COPD vs. other cause. I also suggested adding a LAMA. She was started on Trelegy in August 2022 and had a significant exacerbation afterwards. I do not believe that this exacerbation was due to Trelegy. We discussed the pros and cons, and the patient voiced that she would be willing to try Trelegy again. Samples were provided. She will stop Breo 2 days prior to the PFT and then start Trelegy after that. She was instructed to contact the office immediately if she begins having any worsening symptoms. She was also instructed she needs to continue to rinse after use with Trelegy. She voiced understanding. F/U 1 month to review PFT and response to Trelegy. 01/26/2024 custodial (current) use of inhaled steroids (ICD-10 - Z79.51) Patient was counseled to rinse & gargle with water after inhaled corticosteroid use. 01/26/2024 Obesity, class 1 (ICD-10 - E66.811) Patient's weight is inducing a restrictive pulmonary physiology. Weight loss indicated: Decrease calories, increase activity. 02/23/2024 custodial (current) use of inhaled steroids (ICD-10 - Z79.51) Patient was counseled to rinse & gargle with water after inhaled corticosteroid use. 08/23/2024 custodial (current) use of inhaled steroids (ICD-10 - Z79.51) Patient was counseled to rinse & gargle with water after inhaled corticosteroid use. 08/23/2024 Obesity, class 1 (ICD-10 - E66.811) Patient's weight is inducing a restrictive pulmonary physiology. Weight loss indicated: Decrease calories, increase activity. 02/23/2024 Obesity, class 1 (ICD-10 - E66.811) Patient's weight is inducing a restrictive pulmonary physiology. Weight loss indicated: Decrease calories, increase activity. 01/26/2024 Other Plan Of Treatment Next Appt Details Provider Name:Alis Head, 10/10/2024 01:30:00 PM, [address] [place], [address], Insurance Providers Payer Name Payer Address Payer Phone Subscriber Number Group Number Insured Name Patient Relationship to Insured Coverage Start Date Coverage End Date [employer]AN [address] [place] [address] [phone] [id number] Erica Chacon Self - patient is the insured 4 Medical (General) History Medical History History ICD Code Centrilobular emphysema J43.2 Bronchiectasis, uncomplicated J47.9 Chronic sinusitis J32.9 Hypothyroidism E03.9 Multiple pulmonary nodules R91.8 Benign hypertension I10 custodial (current) use of inhaled stero ids Z79.51 History of tobacco abuse Z87.891 Cigarette nicotine dependence with nicot ine-induced disorder F17.219 Surgical History Surgery Date(Month/Year) Bronchoscopy-04/04/2018 , 03/23/2022, tubal ligation thyroidectomy section cataract removal Hospitalization History Reason Date(Month/Year) Acute Exacerbation of Bronchiectasis-TB 09/21/2022
--- OUTSIDE RECORDS SUMMARY | 2024-10-06 08:02 | XMS_ITS | Encounter Summary ---
Author Organization [facility] Address [address] [place] [address] Care Team Providers Care Gas Appliance Installer Name Role Phone Antonio Riggins MD Primary Care Provider [phone] Antonio Riggins MD Unavailable Sonam Gloria LPN Unavailable Delmar Bowen MA Unavailable Unavailable Encounter Details Date Type Department Care Team (Late st Contact Info) Description 01/31/2024 Clinisync Result Encounter [facility] External Department Unsolicited Provider, Generic External Data Social History Tobacco Use Types Packs/Day Years [...] often do you attend chur ch or samaritan services? Never 09/26/2023 Do you belong to any clubs o r organizations such as shinto groups, unions, fraternal or athletic groups, or [...] more drinks on one occasion? Never 09/26/2023 [facility] - [...] place to sleep or slept in a jail (including now)? No 09/26/2023 Comments Unknown Sex [...] EDT Office Visit [facility] [address] [facility] [address] [place] [address] Analisa Mireles MD [address] [facility] [address] [place] [address] 04/03/2025 1:00 PM EST Office Visit [facility] [address] [place] [address] Antonio Riggins MD [address] [place] [address] documented as of this encounter Procedures Procedure Name Priority Date/Time Associated Diagnosis Comments RT PULMONARY FUNCTION TEST 01/31/2024 9:00 AM EDT documented in this encounter Results * RT PULMONARY FUNCTION TEST (01/31/2024 9:00 AM EDT) Anatomical Region Laterality Modality Other 01/31/2024 9:00 AM EDT Narrative 02/01/2024 6:46 [place] [address] Respiratory Report Signed Patient: ERICA CHACON MR#: [id number] : 1955 Acct:[id number] Age/Sex: 68 / F ADM Date: 01/31/24 Loc: CARD Attending Dr: Sukh Lovelace D.O. Ordering Physician: Sukh Lovelace D.O. Date of Service: 01/31/24 Procedure(s): RT pulmonary function test Accession Number(s): [id number] cc: [facility] Test Date: 2024-01-31 Pat Name: ERICA CHACON Department: Room: - Gender: Female Firmware Test Engineer: : 1955 Requested By: Sukh Lovelace Order Number: [id number] Reading MD: Sukh Lovelace Interpretive Statements Pulmonary function testing was completed according to ATS criteria. Findings were considered accurate and reproducible. Both pre- and post-bronchodilator values utilized for spirometry. Spirometry (based on pre-bronchodilator values): -FEV1/FVC: Decreased @ 57% -FEV1: Moderately-severe reduction @ 50% -FVC: Reduced @ 67% -TPP79-93%: Reduced @ 25% -There is no significant [...] Electronically Signed On 02-01-2024 6:46:23 EDT by Sukh Lovelace Dictated By: Sukh Lovelace D.O. Signed By: 02/01/2464502/01/24645 DD/ 0900 TD/TT: Life Science Research Assistant: Procedure Note Radiology, Radiologist, MD - 02/01/2024 [place] [address] Respiratory Report Signed Patient: ERICA CHACON AMR#: [id number] : 5Acct:[id number] Age/Sex: 68 / FADM Date: 01/31/24 Loc: CARD Attending Dr: Sukh Lovelace D.O. Ordering Physician: Sukh Lovelace D.O. 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 Both pre- andpost-bronchodilator values utilized for spirometry. Spirometry (based on pre-bronchodilator values): -FEV1/FVC: Decreased @ 57% -FEV1: Moderately-severe reduction @ 50% -FVC: Reduced @ 67% -TUD05-61%: Reduced @ 25% -There is no significant bronchodilator response. Lung volumes by plethysmography: -RV: Increased @ 158% -TLC: Normal @ 110% Diffusion capacity: -DLCO: Moderately-severe reduction @ 51% when corrected for Hb 14.6g/dL Flow-volume loop: -Severe obstructive pattern Impressions: -Moderately severe obstruction on bronchoscopy without a bronchodilator response. An elevated RV suggests air trapping. There is amoderately-severe reduction in diffusion capacity. Overall study is compatible with COPD/emphysema. Clinical correlation required. Clinical correlation required. Electronically Signed On 02-01-2024 6:46:23 EDT by Sukh Lovelace Dictated By: Sukh Lovelace D.O. Signed By:02/01/2446 02/01/24 0646 DD/ 0900 TD/TT: Life Science Research Assistant: us Generic External Data Provider [facility] Final Result documented in this encounter Visit Diagnoses Not on filedocumented in this encounter Care Teams Gas Appliance Installer Relationship Specialty Start Date End Date Antonio Riggins MD [address] [place] [address] PCP - General Family Medicine 10/21/22 Antonio Riggins MD [address] [place] [address] PCP - Jaycee DAVIS 11/25/23 Sonam Gloria LPN [address] [place] [address] Licensed Practical Nurse Family Medicine 04/17/2403/27 Delmar Bowen MA Family Medicine 04/18/24 documented as of this encounter
--- OUTSIDE RECORDS SUMMARY | 2024-10-06 08:03 | XMS_ITS | Encounter Summary ---
Author Organization [facility] Address [address] [place] [address] Care Team Providers Care Education Intern Name Role Phone Antonio Riggins MD Primary Care Provider [phone] Antonio Riggins MD Unavailable Delmar Bowen MA Unavailable Unavailable Encounter Details Date Type Department Care Team (Late st Contact Info) Description 10/05/2024 Orders Only [facility] [address] [place] [address] Antonio Riggins MD [address] [place] [address] Social History Tobacco Use Types Packs/Day Years [...] often do you attend chur ch or jehovah's witness services? Never 09/26/2023 Do you belong to any clubs o r organizations such as hoahaoism groups, unions, fraternal or athletic groups, or [...] place to sleep or slept in a usp (including now)? No 09/26/2023 Comments Unknown Sex [...] Visit [facility] [address] [facility] [address] [place] [address] Analisa Mireles MD [address] [facility] [address] [place] [address] 04/03/2025 1:00 PM EST Office Visit [facility] [address] [place] [address] Antonio Riggins MD [address] [place] [address] documented as of this encounter Procedures Procedure Name Priority Date/Time Associated Diagnosis Comments COLONOSCOPY DIAGNOSTIC Routine 05/31/2023 12:20 PM EST COLONOSCOPY DIAGNOSTIC Routine 05/31/2023 12:07 PM EST documented in this encounter Results * COLONOSCOPY DIAGNOSTIC (05/31/2023 12:20 PM EST) Anatomical Region Laterality Modality Radiographic Sari ging Antonio Riggins MD IMG XR PROCEDURES Final Result * COLONOSCOPY DIAGNOSTIC (05/31/2023 12:07 PM EST) Anatomical Region Laterality Modality Radiographic Sari ging us Antonio Riggins MD IMG XR PROCEDURES Final Result documented in this encounter Visit Diagnoses Not on filedocumented in this encounter Additional Health Concerns Assessment Noted Time PHQ-9 Depression Total Score: 0 03/28/20 24 11:00 AM EST documented as of this encounter Care Teams Education Intern Relationship Specialty Start Date End Date Antonio Riggins MD [address] [place] [address] PCP - General Family Medicine 10/21/22 Antonio Riggins MD [address] [place] [address] PCP - Jaycee DAVIS 11/25/23 Delmar Bowen MA Family Medicine 04/18/24 documented as of this encounter
--- OUTSIDE RECORDS SUMMARY | 2024-10-06 08:03 | XMS_ITS | Encounter Summary ---
Author Organization [facility] Address [address] [facility] [place] [address] Care Team Providers Care Production Boring Machine Operator Name Role Phone Antonio Riggins MD Primary Care Provider [phone] Antonio Riggins MD Unavailable Delmar Bowen MA Unavailable Unavailable Encounter Details Date Type Department Care Team (Late st Contact Info) Description 09/28/2024 Bamboo flowsheet [facility] [address] [place] [address] Antonio Riggins MD [address] [place] [address] Social History Tobacco Use Types Packs/Day Years [...] often do you attend chur ch or uatsdin services? Never 09/26/2023 Do you belong to [...] Recorded Patient Health Questionnaire-2 Score 0 03/28/2024 [facility] - Occupational [...] place to sleep or slept in a senior care (including now)? No 09/26/2023 Comments Unknown Sex [...] [address] [place] [address] Analisa Mireles MD [address] [place] [address] 04/03/2025 1:00 PM EST Office Visit [facility] [address] [place] [address] Antonio Riggins MD [address] [place] [address] documented as of this encounter Visit Diagnoses Not on filedocumented in this encounter Additional Health Concerns Assessment Noted Time PHQ-9 Depression Total Score: 0 03/28/20 11:00 AM EST documented as of this encounter Care Teams Production Boring Machine Operator Relationship Specialty Start Date End Date Antonio Riggins MD [address] [place] [address] PCP - General Family Medicine 10/21/22 Antonio Riggins MD [address] [place] [address] PCP - Jaycee DAVIS 11/25/23 Delmar Bowen MA Family Medicine 04/18/24 documented as of this encounter
--- OUTSIDE RECORDS SUMMARY | 2024-10-06 08:03 | XMS_ITS | Encounter Summary ---
Author Organization [facility] Address [address] [place] [address] Care Team Providers Care Limo Driver Name Role Phone Ottoniel Fuchs MD Primary Care Provider [phone] Reason for Visit * Reason Comments Medication Refill Encounter Details Date Type Department Care Team (Late st Contact Info) Description 11/13/2016 Refill [facility] [address] [place] [address] Ottoniel Fuchs MD [address] [place] [address] Medication Refill Social History Tobacco Use Types Packs/Day Years Used Date Smoking Tobacco: Every Day Cigarettes 0.5 40 Smokeless Tobacco: Never Alcohol Use Standard Drinks/Week Comments Yes 0 (1 standard drink = 0.6 oz pur e alcohol) 1-2 weekly Comments Unknown Sex and Gender Information Value Date Recorded Sex Assigned at Not on file Legal Sex Female 5:50 PM EDT Gender Identity Not on file Sexual Orientation Not on file documented as of this encounter Plan of Treatment Not on file documented as of this encounter Visit Diagnoses Not on filedocumented in this encounter Care Teams Limo Driver Relationship Specialty Start Date End Date Ottoniel Fuchs MD PCP - General Family Medicine 11/29/14 02/07/20 documented as of this encounter
--- OUTSIDE RECORDS SUMMARY | 2024-10-06 08:03 | XMS_ITS | Clinical Summary ---
Author Organization [facility] Address [address] [place] [address] Care Team Providers Care Production Supv Name Role Phone Unavailable Primary Care Provider Unavailabl e Allergies No known active allergies Medications Calcium Carbonate-Vitamin D (CALCIUM + D PO) Take by mouth daily 1 Active Multiple Vitamin TABS Take 1 tablet by mouth daily Active aspirin 81 MG tablet Take 81 mg by mouth daily Active ipratropium-albuter ol (DUONEB) 0.5-2.5 (3) MG/3ML SOLN nebulizer solutionIndications :Bronchiectasis without complication (HCC) Inhale 3 mLs into the lungs every 4 hours 360 mL 1 9 Active albuterol sulfate (PROAIR RESPICLICK) 108 (90 Base) MCG/ACT aerosol powder inhalation Inhale 1 puff into the lungs every 4 hours as needed for Wheezing 1 Inhaler 2 9 Active losartan (COZAAR) 50 MG tabletIndications:H TN (hypertension), benign Take 1 tablet by mouth daily 90 tablet 3 0 Active fluticasone-vilante rol (BREO ELLIPTA) 100-25 MCG/INH AEPB inhalerIndications: Panlobular emphysema (HCC) Inhale 1 puff into the lungs daily 180 each 3 0 Active levothyroxine (SYNTHROID) 112 MCG tabletIndications:P ostoperative hypothyroidism TAKE 1 TABLET DAILY 30 tablet 1 Active Active Problems Patient Care Coordination No te Formatting of this note migh t be different from the original. SDOH done 12/29/18 Chart clean up done 10/26/2019 Problem Noted Date Diagnosed Date Prediabetes 12/29/2018 Panlobular emphysema 12/25/2016 Bronchiectasis without complication 12/25/2016 Lung nodule 12/25/2016 HTN (hypertension), benign 12/25/2015 Postoperative hypothyroidism 12/13/2014 Nicotine dependence, cigarettes, uncomplicated 0 12/13/2014 Resolved Problems Problem Noted Date Diagnosed Date Resolved Date CARYL-inhibitor cough 12/13/2014 12/26/19 17 Immunizations Immunization Administration Dates Next Due Influenza Virus Vaccine 02/11/2018 Influenza, AFLURIA (age 3 y+ ), FLUZONE, (age 6 mo+), Quadv MDV, 0.5mL 02/11/2018 Influenza, FLUBLOK, (age 18 y+), Quadv PF, 0.5mL 03/30/2019 Pneumococcal, PPSV23, PNEUMO VAX 23, (age 2y+), SC/IM, 0.5mL 02/12/2015 TDaP, ADACEL (age 10y-64y), BOOSTRIX (age 10y+), IM, 0.5mL 12/25/2015 Zoster Live (Zostavax) 02/12/2015 Zoster Recombinant (Shingrix) 12/29/2018, 018 Family History Medical History Relation Name Comments Cancer Brother 1 No Known Problems Brother 2 No Known Problems Brother 3 No Known Problems Daughter Heart Disease Father valvular heart disease No Known Problems Maternal Grandfather No Known Problems Maternal Grandmother Cancer Mother cervix Diabetes Mother No Known Problems Paternal Grandfather No Known Problems Paternal Grandmother No Known Problems Sister Other Son 1 Degenerative Di sc Disease No Known Problems Son 2 Relation Name Status Comments Brother 1 Brother 2 Alive Brother 3 Alive Daughter Alive Father Maternal Grandfather Maternal Grandmother Mother Paternal Grandfather Paternal Grandmother Sister Alive Son 1 Alive Son 2 Alive Social History Tobacco Use Types Packs/Day Years Used Date Smoking Tobacco: Every Day Cigarettes 1 53.2 Started: 08/02/1971 Smokeless Tobacco: Never Tobacco Cessation:Ready to Q uit: No; Counseling Given: Yes Comments:Less than a pack a day Alcohol Use Standard Drinks/Week Comments Yes 0 (1 standard drink = 0.6 oz pur e alcohol) Occasionally Social Connection and Isolation Panel [NHANES] A nswer Date Recorded Frequency of Communication with Friends and Fami ly Three times a week 12/29/2018 Frequency of Social Gatherin gs with Friends and Family Once a week 12/29/2018 Attends Spiritism Services Never 12/29 Active Member of Clubs [...] Answer Date Recorded PHQ-2 Score 0 07/27/2018 [facility] [place] [facility] - Occupational Stress [...] Sign Reading Time Taken Comments Blood Pressure 121/80 12/29/2018 10:07 AM EDT Pulse 67 12/29/2018 10:07 AM EDT Temperature 36.6 C (97.9 F) 12/29/2018 10:07 AM EDT Respiratory Rate 18 09/09/2018 10:38 AM EDT Oxygen Saturation 98% 12/29/2018 10:07 AM EDT Inhaled Oxygen Concentration - - Weight 78.5 kg (173 lb) 12/29/2018 10:07 AM EDT Height 164.5 cm (5' 4.75 ) 12/29/2018 10:07 AM E DT Body Mass Index 29.01 12/29/2018 10:07 AM EDT Plan of Treatment Not on file Goals Goal Patient Goal Type Associated Problems Recent Progress Patient-Stated? Author Patient Stated Care Coordination Yes Iqra Mata MA Note: Quit Smoking. Barriers: lack of motivation Plan for overcoming my barriers: Will discuss plan with provider. Confidence: 12/03 Anticipated Goal Completion Date: 1 year. Insurance MEDICARE [employer] SENIOR MEDICARE SUPP
--- OUTSIDE RECORDS SUMMARY | 2024-10-06 08:03 | XMS_ITS | Clinical Summary ---
Author Organization [facility] Healthcare Address [address] [place] [address] Care Team Providers Care Prototype Technician Name Role Phone Antonio Riggins MD Primary Care Provider [phone] Antonio Riggins MD Unavailable Delmar Bowen MA Unavailable Unavailable Allergies No known active allergies Medications aspirin 81 MG EC tablet Take 81 mg by mouth Daily Active fluticasone (Flonase) 50 MCG/ACT nasal spray Administer 2 sprays into each nostril Daily Shake gently. Before first use, prime pump. After use, clean tip and replace cap. Active Multiple Vitamin (MULTI-DAY PO) Take by mouth A ctive sodium chloride 0.9 % nebulizer solution Take 3 mL by nebulization if needed for wheezing Active albuterol HFA 90 mcg/act inhalerIndication s:Bronchiectasis without complication (HCC) Inhale 2 puffs every 4 (four) hours if needed for wheezing 18 g 3 024 Active Fluticasone-Umecl idin-Vilant (Trelegy Ellipta) 100-62.5-25 MCG/ACT aerosol powder Inhale Active amLODIPine (Norvasc) 5 MG tabletIndications :Essential hypertension, benign Take 1 tablet (5 mg) by mouth Daily 30 tablet 2025 Active losartan (Cozaar) 50 MG tabletIndications :Essential hypertension, benign TAKE 1 TABLET BY MOUTH DAILY 30 tablet Active levothyroxine (Synthroid, Levoxyl) 112 MCG tabletIndications :Postoperative hypothyroidism TAKE 1 TABLET BY MOUTH IN THE MORNING BEFORE MEALS 30 tablet 11 05/05/2 025 Active Oyster Shell Calcium 500 MG tablet every 12 (twelve) hours Active metFORMIN XR (Glucophage-XR) 500 MG 24 hr tabletIndications :Type 2 diabetes mellitus without complication, without long-term current use of insulin (HCC) Take 1 tablet (500 mg) by mouth in the morning. Take with meals. Do not crush, chew, or split. 90 tablet 3 025 Active Fluzone High-Dose 0.5 ML suspension prefilled syringe 024 2024 Discontinued(T herapy completed) metFORMIN (Glucophage) 500 MG tabletIndications :Type 2 diabetes mellitus without complication, without long-term current use of insulin (HCC) TAKE 1 TABLET BY MOUTH IN THE MORNING WITH MEALS 30 tablet 1 025 2024 Discontinued Active Problems Problem Noted Date Diagnosed Date Bronchiolectasis 09/13/2024 Assessment & Plan (09/28/2024 2:32 PM EDT): Symptoms stable and follow with pulmonology. 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 Continue metformin. Stick to ADA diet and limit carbs. Encounter for screening mamm ogram for malignant neoplasm of breast 04/27/2024 Menopause 04/27/2024 Tobacco user 04/27/2024 Assessment & Plan (04/27/2024 11:29 AM EST): The patient has been advised of the risks of continued smoking: stroke, MT, all forms of cancer, lung disease, and . Options for quitting smoking include: cold turkey, hypnosis, acupuncture, nicotine replacement meds (gum, lozenges, and patches), Buproprion, and Varenicline. At this time pt is encouraged to evaluate their goals for wanting to quit smoking, and reach out to provider when ready to start this process Stressors tend to be her trigger Medicare annual wellness visit, subsequent 03/28 Assessment & Plan (03/28/2024 12:11 PM EST): Reviewed labs. Discussed proper diet and regular aerobic exercise. Need aerobic exercise 5-6 days a week for 30 minutes at a time. Smaller portions and limit total calories. Colonoscopy every 10 years. Tetanus every 10 years. Advised not to smoke. Discussed daily Aspirin therapy. Centrilobular emphysema 09/27/2023 Assessment & Plan (09/28/2024 2:33 PM EDT): Symptoms stable and follow with pulmonology. Assessment & Plan (04/27/2024 11:24 AM EST): Recent hospitalization for hypoxia Does follow with dr head Current meds: trelegy, albuterol prn, flonase, Is currently on steroids Feeling much better Assessment & Plan (09/27/2023 11:02 AM EDT): Breathing stable and follow up with pulmonology. Seasonal allergic rhinitis due to pollen 024 Assessment & Plan (09/27/2023 11:02 AM EDT): Symptoms controlled with medication and continue. Encounter for long-term (current) use of medicat ions 04/01/2023 Colon cancer screening 04/01/2023 Lung nodule 09/03/2017 HTN (hypertension), benign 12/25/2015 Assessment & Plan (09/28/2024 2:33 PM EDT): BP controlled and monitor PRN. Assessment & Plan (04/27/2024 6:48 AM EST): Please check blood pressure daily and record DASH diet Limit caffeine Take medication as directed Contact office if chest pain, pressure, dizziness, shortness of breath, swelling legs Recommend slow position changes Current meds: losartan, asa, amlodipine Assessment & Plan (09/27/2023 11:02 AM EDT): BP controlled and monitor PRN. Discussed DASH diet. Assessment & Plan (04/01/2023 1:58 PM EST): BP controlled and monitor PRN. Discussed DASH diet. Postoperative hypothyroidism 12/25/2015 Assessment & Plan (04/27/2024 6:49 AM EST): Currently taking levothyroxine Check labs yearly, prn dose changes, or changes in symptoms Assessment & Plan (09/27/2023 11:02 AM EDT): No signs of low thyroid and reviewed labs. Continue synthroid. Assessment & Plan (04/01/2023 1:59 PM EST): No signs of low thyroid and due for labs. Continue synthroid. Osteopenia 07/03/2015 Overview (06/29/2024): Seen on DEXA in 01/2012. 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 Assessment & Plan (04/01/2023 1:58 PM EST): Breathing much improved and follow up with pulmonology. Encounters Date Type Department Care Team Description 10/05/2024 Orders Only [facility] [address] [place] [address] Antonio Riggins MD 09/28/2024 2:00 PM EDT Office Visit [facility] [address] [place] [address] Antonio Riggins MD Type 2 diabetes mellitus without complication, without long-term current use of insulin (HCC) (Primary Dx); HTN (hypertension), benign ; Bronchiolectasis (HCC); Centrilobular emphysema (HCC) 09/28/2024 Bamboo flowsheet [facility] [address] [place] [address] Antonio Riggins MD 09/25/2024 Travel 09/19/2024 9:20 AM EDT Office Visit [facility] [address] [place] [address] Analisa Mireles MD Abnormal positron emission tomography (PET) scan (Primary Dx); Chronic tonsillitis 09/19/2024 Bamboo flowsheet [facility] [address] [place] [address] Analisa Mireles MD 09/19/2024 Travel 09/05/2024 [facility] [address] [place] [address] Alis Head DO 09/05/2024 Clinisync Result Encounter [facility] External Department Unsolicited Provider, Generic External Data 08/25/2024 Refill [facility] [address] [place] [address] Antonio Riggins MD Essential hypertension, benign ; Postoperative hypothyroidism ; Type 2 diabetes mellitus without complication, without long-term current use of insulin (HCC) 08/17/2024 Refill [facility] [address] [place] [address] Barbie Dhaliwal NP Type 2 diabetes mellitus without complication, without long-term current use of insulin (HCC) 08/11/2024 Clinisync Result Encounter [facility] External Department Unsolicited Provider, Generic External Data 07/10/2024 Clinisync Result Encounter [facility] External Department Unsolicited Provider, Generic External Data 07/07/2024 Patient Outreach [facility] [place] [address] Delmar Bowen MA from Last 3 Months Immunizations Immunization Administration Dates Next Due Influenza, High Dose Seasonal, Preservative Free 03/01/2024 Influenza, High-dose Seasona l, Quadrivalent, Preservative Free 03/08/2023 Influenza, injectable, quadrivalent 02/11/2018 Influenza, recombinant, quad rivalent, injectable, preservative free 03/30/2019 Pneumococcal Conjugate PCV 13 01/24/2015 Pneumococcal Conjugate PCV 20 11/02/2022 Pneumococcal Polysaccharide PPSV23 02/12/2015 RSV, recombinant, protein huffman bunit RSVpreF, adjuvant reconstitu, 120mcg/0.5mL, PF (Arexvy) 02/26/2023 Tdap 12/25/2015 Zoster, Recombinant 12/29/2018,02/11/2018 Zoster, live 02/12/2015 Family History Medical History Relation Name Comments Cancer Brother Huber Edwards Lung cancer Brother Huber Edwards Drug abuse Daughter Alysha Castillo Heart disease Father Patricio Deuschle Heart failure Father Patricio Deuschle Hypertension Father Patricio Deuschle Diabetes Maternal Grandmother [place] Arthritis Mother Becka Deuschle Cancer Mother Becka Deuschle Cervical cancer Mother Becka Deuschle Coronary artery disease Mother Becka Deuschle Diabetes Mother Becka Deuschle Emphysema Mother Becka Deuschle Heart disease Mother Becka Deuschle Stroke Mother Becka Deuschle Asthma Son Pablito [place]ley Relation Name Status Comments Brother Huber Edwards Daughter Alysha Castillo Alive Father Patricio Deuschle Maternal Grandmother [place] Mother Becka Deuschle Son Pablito [place] Alive Social History Tobacco Use Types Packs/Day Years Used Date Smoking Tobacco: Every Day Cigarettes 1 50 Started: 09/1972; Last attempted to quit: 09/2022 Smokeless Tobacco: Never Tobacco Cessation:Ready to Q uit: Not Asked; Counseling Given: Not Answered Alcohol Use Standard Drinks/Week Comments Yes 2 [...] often do you attend chur ch or bahai services? Never 09/26/2023 Do you belong to any clubs o r organizations such as bahai groups, unions, fraternal or athletic groups, or [...] Recorded Patient Health Questionnaire-2 Score 0 03/28/2024 [facility] - [...] to sleep or slept in a senior living (including now)? No 09/26/2023 Comments Unknown Sex [...] Mass Index 29.35 09/28/2024 2:02 PM EDT Plan of Treatment Upcoming Encounters Date Type Department Care Team (Late st Contact Info) Description 12/20/2024 11:20 AM EDT Office Visit [facility] [address] [facility] [address] [place] [address] Analisa Mireles MD [address] [facility] [address] [place], [place] [id number] 04/03/2025 1:00 PM EST Office Visit [facility] [address] [place] [address] Antonio Riggins MD [address] [place] [address] Health Maintenance Due Date Last Done Comments CT Colonography 1955 FIT-DNA 1955 FIT 1955 FOBT 1955 Lung Cancer Screening Shared Decision Making 1955 Sigmoidoscopy 1955 Diabetes: Retinopathy Screening 1964 Mammogram 06/23/2024 06/24/2023, 01/26, 02/19/2017, Additional history exists Diabetes: Hemoglobin A1C 12/03/2024 025, 09/26/2019, 01/03/2018 Medicare Annual Wellness (AWV) 03/28/2025 1 05/29/2023, 02/11/2018, 12/28/2017, Additional history exists Diabetes: Urine Protein Screening 06/05/2025 025 Colonoscopy 05/31/2033 05/31/2023, 08/2023, 05/12/2023, Additional history exists Colorectal Cancer Screening 05/31/2033 Pneumococcal Vaccine: 65+ Years Completed 11/02/2022, 11/02/2022, 02/12/2015, Additional history exists Influenza Vaccine Completed 03/01/2024, , 03/30/2019, Additional history exists Procedures Procedure Name Priority Date/Time Associated Diagnosis Comments NM PET W/ CT SCAN SKULL BASE TO MIDTHIGH Routine 09/05/2024 2:22 PM EDT PET SKULL BASE TO MID THIGH 09/05/2024 9:[address] CHEST WO CON 08/11/2024 3:[address] LUNG SCREENING LOW DOSE 07/10/2024 1:51 PM EDT MM TOMOSYNTHESIS SCREENING BI 06/24/2023 3:38 PM EST COLONOSCOPY DIAGNOSTIC Routine 12:07 PM EST from Last 3 Months or Most Recently Relevant to Health Maintenance Results * NM PET W/ CT SCAN SKULL BASE TO MIDTHIGH (09/05/2024 2:22 PM EDT) Anatomical Region Laterality Modality Radiographic Sari ging Alis Head DO IMG XR PROCEDURES Final Result * PET/CT skull base to mid thigh (09/05/2024 9:12 AM EDT) Anatomical Region Laterality Modality Body Computed Tomogra phy 09/05/2024 9:12 AM EDT Narrative 09/05/2024 9:14 [place] [address] PET Report Signed Patient: ERICA CHACON MR#: [id number] : 1955 Acct:[id number] Age/Sex: 69 / F ADM Date: 09/04/24 Loc: PETCT Attending Dr: Alis Head D.O. Ordering Physician: Alis Head D.O. Date of Service: 09/04/24 Procedure(s): PET skull to mid thigh Accession Number(s): [id number] cc: Antonio Riggins M.D.; Alis Head D.O. [address] [address] Patient Name: ERICA CHACON MRN: [id number] date: 1955 Sex: F Assigned Patient Location: PETCT Current Patient Location: Accession/Order Number: [id number] Exam Date: 09/05/2024 08:48 Report Date: 09/05/2024 [...] Ordaz M.D. 09/05/2024 9:12 AM Dictation Location: [place] [address] Electronically authenticated by: [id number] Y Date: 09/05/2024 09:12 Dictated By: Mary Ordaz M.D. Signed By: 09/05/2414 DD/ 1 TD/TT: Relocation Associate: Procedure Note Radiology, Radiologist, - 09/05/[address] [address] PET Report Signed Patient: ERICA CHACON#: [id number] : 5Acct:[id number] Age/Sex: 69 / FADM Date: 09/04/24 Loc: PETCT Attending Dr: Alis Head D.O. Ordering Physician: Alis Head D.O. Date of Service: 09/04/24 Procedure(s): PET skull to mid thigh Accession Number(s): [id number] cc: Antonio Riggins M.D.; Alis Head D.O. [address] [address] Patient Name: ERICA CHACON MRN: [facility]:[id number] date: 1955 Sex: F Assigned Patient Location: PETCT Current Patient Location: Accession/Order Number: [id number] Exam Date: 09/05/2024 08:48 Report Date: 09/05/2024 09:12 At the request of: ALIS HEAD DO Procedure: PET skull to mid thigh PET/CT WITH FUSION COMPARISON: CT chest 08/11/2024 CLINICAL DATA: Right lower lobe nodular consolidation Following the intravenous administration of 12.48 mCi of FDG, SPECTimaging in 3 planes was performed from the level the orbits through the groin. The patient's blood glucose level at the time of injection was 109 mg/dL.Spiral unenhanced CT was also performed for anatomic localization. The PET andCT images were fused. This CT exam was performed using one or more following dose reduction techniques: Automated exposure control, adjustment of themA and/or kV according to patient size, or use of iterative reconstruction technique. NECK: No enlarged or hypermetabolic lymph nodes are identified. Mild increased uptake is seen within the oral cavity, asymmetric posteriorly onthe left near the palatine tonsil. It is uncertain if this is stillphysiologic. Physiologic activity is also present at the larynx. Bilateral maxillary mucosal thickening and/or fluid is seen. CHEST: No enlarged or hypermetabolic mediastinal, hilar or axillary lymph nodes are present. No pathologic pulmonary FDG uptake is seen includingthe area of concern on the recent comparison chest CT at the right lower lobe. This finding does show some interval improvement on the CT images. Thereis mild increased uptake at the back in the vicinity of the proximal ribs,left greater than right. This may be physiologic. ABDOMEN/PELVIS: There are no FDG avid hepatic or adrenal lesions. Noenlarged or pathologic or abdominal or pelvic lymph nodes are present. There is physiologic activity involving the urinary tract and bowel. PET/PET skull to mid thigh IMPRESSION: IMPROVING PARENCHYMAL CHANGES AT THE RIGHT LOWER LOBE WHERE THERE IS NO ASSOCIATED HYPERMETABOLISM. ASYMMETRIC INCREASED UPTAKE AT THE LEFT ORAL CAVITY IN THE REGION OF THE TONSIL. THIS MAY BE PHYSIOLOGIC HOWEVER CLINICAL CORRELATION ISSUGGESTED. NO OTHER SIGNIFICANT PET SCAN FINDINGS. Impression dictated by: Mary Ordaz M.D. 09/05/2024 9:12 AM Dictation Location: [place] [address] Electronically authenticated by: [id number] Y Date: 9:12 Dictated By: Mary Ordaz M.D. Signed By:09/05/24913 DD/ 1 TD/TT: Relocation Associate: Generic External Data Provider IMG CT PROCEDURES Final Result * CT CHEST WO CON (08/11/2024 3:03 PM EDT) Anatomical Region Laterality Modality Other 08/11/2024 3:03 PM EDT Narrative 08/11/2024 3:06 [place] [address] CT Scan Report Signed Patient: ERICA CHACON MR#: [id number] : 1955 Acct:[id number] Age/Sex: 69 / F ADM Date: 08/11/24 Loc: CT Attending Dr: Alis Head D.O. Ordering Physician: Alis Head D.O. Date of Service: 08/11/24 Procedure(s): CT chest wo con Accession Number(s): [id number] cc: Antonio Riggins M.D. The [address] [address] Patient Name: ERICA CHACON MRN: [id number] date: 1955 Sex: F Assigned Patient Location: CT Current Patient Location: CT Accession/Order Number: [id number] Exam Date: 08/11/2024 14:51 Report Date: 08/11/2024 [...] Jovanny Swanson M.D.08/11/2024 3:03 PM Dictation Location: [place] [address] Electronically authenticated by: [id number] Y Date: 08/11/2024 15:03 Dictated By: Jovanny Swanson D.O. Signed By: 08/11/24 1506 DD/ 1503 TD/TT: Relocation Associate: Procedure Note Radiology, Radiologist, - 08/11/[address] [address] [address] Scan Report Signed Patient: ERICA CHACON#: [id number] : 5Acct:[id number] Age/Sex: 69 / FADM Date: 08/11/24 Loc: CT Attending Dr: Alis Head D.O. Ordering Physician: Alis Head D.O. Date of Service: 08/11/24 Procedure(s): CT chest wo con Accession Number(s): [id number] cc: Antonio Riggins M.D. The [place] [address] Patient Name: ERICA CHACON MRN: [facility]:[id number] date: 1955 Sex: F Assigned Patient Location: CT Current Patient Location: CT Accession/Order Number: [id number] Exam Date: 08/11/2024 14:51 Report Date: 08/11/2024 15:03 At the request of: ALIS HEAD DO Procedure: CT chest wo con CT Chest without contrast TECHNIQUE: Axial imaging with 2-D reconstruction. The CT exam wasperformed using one or more the following dose reduction techniques: Automatedexposure control, adjustment of the MA and/or Kv according to patient size, or useof the iterative reconstruction technique. History: Follow-up pulmonary nodules. COMPARISON: CT lung screening 07/10/[address] 07/22/2023 THYROID: Unremarkable TRACHEA AND BRONCHI: Diffuse bronchial wall thickening. Bronchiectasislower lobes. ESOPHAGUS: Unremarkable. HEART: Within normal limits PERICARDIAL EFFUSION: Small CORONARY ARTERY CALCIFICATION: None MEDIASTINUM: No adenopathy. No pneumoperitoneum. No mediastinalhematoma. PULMONARY GREGORY: No hilar mass or adenopathy is seen. THORACIC AORTA Unremarkable LUNG NODULE similar small nodularity. LUNGS: Scattered lung scarring. Emphysema. Scattered gxay-cy-kuappsqsqofyx involving the right lung. PLEURAL EFFUSION: None PNEUMOTHORAX: No pneumothorax seen. CHEST WALL: Bilateral breast implantation AXILLA:Unremarkable BONY STRUCTURES Intact UPPER ABDOMEN: Images of the upper abdomen are noncontributory. CT/CT chest wo con IMPRESSION: Redemonstration of a band of nodular consolidation posterior portion of the right lung base. Not significantly change from recentprior examination. This is a newly developed finding compared to Priorexamination 07/22/2023. This may still represent scarring, however malignancy shouldbe excluded. May be consideration for PET/CT imaging. A similar tree-in-bud nodularity of the right lung. Impression dictated by: Jovanny Swanson M.D.08/11/2024 3:03 PM Dictation Location: [place] [address] Electronically authenticated by: [id number] Y Date: 5:03 Dictated By: Jovanny Swanson D.O. Signed By:08/11/24 1506 DD/ 1503 TD/TT: Relocation Associate: Generic External Data Provider [facility] Final Result * CT LUNG SCREENING LOW DOSE (07/10/2024 1:51 PM EDT) Anatomical Region Laterality Modality Other 07/10/2024 1:51 PM EDT Narrative 07/10/2024 1:54 [place] [address] CT Scan Report Signed Patient: ERICA CHACON MR#: [id number] : 1955 Acct:[id number] Age/Sex: 68 / F ADM Date: 07/10/24 Loc: CT Attending Dr: Alis Head D.O. Ordering Physician: Alis Head D.O. Date of Service: 07/10/24 Procedure(s): CT lung screening low-dose Accession Number(s): [id number] cc: Antonio Riggins M.D. [address] [address] Patient Name: ERICA CHACON MRN: [id number] date: 1955 Sex: F Assigned Patient Location: CT Current Patient Location: CT Accession/Order Number: [id number] Exam Date: 07/10/2024 13:47 Report Date: 07/10/2024 [...] conditions. Impression dictated by: Bob Painting Jr., CristelaOTj07/10/2024 1:51 PM Dictation Location: [place] [address] Electronically authenticated by: [id number] Y Date: 07/10/2024 13:51 Dictated By: Bob Painting M.D. Signed By: 07/10/24 1354 DD/ 1351 TD/TT: Relocation Associate: Procedure Note Radiology, Radiologist, - 07/10/2024 [place] [address] CT Scan Report Signed Patient: ERICA CHACON EMMETT#: [id number] : 5Acct:[id number] Age/Sex: 68 / FADM Date: 07/10/24 Loc: CT Attending Dr: Alis Head D.O. Ordering Physician: Alis Head D.O. Date of Service: 07/10/24 Procedure(s): CT lung screening low-dose Accession Number(s): [id number] cc: Antonio Riggins M.D. [place] [address] Patient Name: ERICA CHACON MRN: [facility]:[id number] date: 1955 Sex: F Assigned Patient Location: CT Current Patient Location: CT Accession/Order Number: [id number] Exam Date: 07/10/2024 13:47 Report Date: 07/10/2024 13:51 At the request of: ALIS HEAD DO Procedure: CT lung screening low-dose CT CHEST WITHOUT CONTRAST, LOW DOSE SCREENING: CLINICAL DATA: A 68-year old current smoker COMPARISON: CT chest 07/22/2023 TECHNIQUE: Noncontrast axial CT scan images of the chest were obtainedunder the low dose screening CT protocol. Coronal and sagittal reconstructedimages were also submitted. FINDINGS: Mediastinum : Suboptimal evaluation due to low-dose technique. Thoracicaorta appears normal in caliber. Pulmonary trunk appears nondilated. Small pericardial effusion. No lymphadenopathy. The esophagus is grossly unremarkable. Lungs: No focal consolidation, pneumothorax or pleural effusion. Tracheaand distal airways appear patent. Diffuse bronchial wall thickening with bronchiectasis involving the lower lobes.. Scattered areas of lungscarring. Emphysema. Scattered tree-in-bud nodularity predominantly involving theright lung. New area of presumed masslike scarring involving the basilar segments ofthe right lower lobe measuring 23 mm in greatest axial dimension. Please see series 4 image 19. Upper abdomen: No acute findings. Bony thorax and chest wall: Soft tissues surrounding the chest wall demonstrate no acute findings. Osseous structures demonstratedegenerative change. CT/CT lung screening low-dose IMPRESSION: NEW AREA OF PRESUMED MASSLIKE SCARRING INVOLVING THE BASILAR SEGMENTS OFTHE RIGHT LOWER LOBE MEASURING 23 MM IN GREATEST AXIAL DIMENSION. SCATTERED TREE-IN-BUD NODULARITY. THERE IS ASSOCIATED EMPHYSEMA FINDINGS SUGGEST BRONCHIOLITIS LIKELY RELATING TO SMOKING. LUNG - RADS Version 1.0 Assessment: Category 4B, Very Suspicious (Findingsfor which additional diagnostic testing and/or tissue sampling isrecommended). Management: Chest CT with or without contrast, PET/CT and/or tissuesampling depending on the probability of malignancy and comorbidities. PET/CT maybe used when there is a > 8 mm solid component. For new large nodules that develop on an annual repeat screening CT, a 1 month LDCT may berecommended to address potentially infectious or inflammatory conditions. Impression dictated by: Cristela Anglin Jr.OTj07/10/2024 1:51 PM Dictation Location: [place] [address] Electronically authenticated by: [id number] Y Date: 3:51 Dictated By: Bob Painting M.D. Signed By:07/10/24 1354 DD/ 1351 TD/TT: Relocation Associate: Generic External Data Provider [facility] Final Result * MM TOMOSYNTHESIS SCREENING BI (06/24/2023 3:38 PM EST) Anatomical Region Laterality Modality Other 06/24/2023 3:38 PM EST Narrative 06/24/2023 3:39 [place] [address] Mammography Report Signed Patient: ERICA CHACON MR#: [id number] : 1955 Acct:[id number] Age/Sex: 67 / F ADM Date: 06/15/23 Loc: MAMMO Attending Dr: Antonio Riggins M.D. Ordering Physician: Antonio Riggins M.D. Results: Date of Service: 06/15/23 Follow Up: Procedure(s): MM tomosynthesis screening BI Accession Number(s): [id number] cc: Antonio Riggins M.D. Patient Name: ERICA CHACON MR#: [id number] : 1955 Exam Date: 06/15/2023 Ordering Doctor: [...] Treatments None Family Cancers None LOCATION: [facility] BREAST COMPOSITION: Scattered areas fibroglandular density. FINDINGS: [...] Signed By: 06/24/23 1539 DD/ 1538 TD/TT: Relocation Associate: Procedure Note Radiology, Radiologist, - 06/24/2023 [place] [address] Mammography Report Signed Patient: ERICA CHACON AMR#: [id number] : 5Acct:[id number] Age/Sex: 67 / FADM Date: 06/15/23 Loc: MAMMO Attending Dr: Antonio Riggins M.D. Ordering Physician: Antonio Riggins M.D.Results: Date of Service: 06/15/23Follow Up: Procedure(s): MM tomosynthesis screening BI Accession Number(s): [id number] cc: Antonio Riggins M.D. Patient Name: ERICA CHACON MR#: [id number] : 1955 Exam Date: 06/15/2023 Ordering Doctor: [...] Treatments None Family Cancers None LOCATION: [facility] BREAST COMPOSITION: Scattered areas fibroglandular density. FINDINGS: [...] M.D. Signed By:06/24/23 1539 DD/ 1538 TD/TT: Relocation Associate: Antonio Riggins MD [facility] Final Result * COLONOSCOPY DIAGNOSTIC (05/31/2023 12:07 PM EST) Anatomical Region Laterality Modality Radiographic Sari ging Antonio Riggins MD IMG XR PROCEDURES Final Result from Last 3 Months or Most Recently Relevant to Health Maintenance Insurance [facility] MEDICARE ADVANTAGE Care Teams Prototype Technician Relationship Specialty Start Date End Date Antonio Riggins MD [address] [place] [phone] PCP - General Family Medicine 10/21/22 Antonio Riggins MD [address] [place] [phone] PCP - Jaycee DAVIS 11/25/23 Delmar Bowen MA Family Medicine 04/18/24
--- OUTSIDE RECORDS SUMMARY | 2024-10-06 08:03 | XMS_ITS ---
Author Organization [facility] Address [address] [place] [address] Care Team Providers Care Counter Stitcher Name Role Phone Antonio Riggins MD Primary Care Provider [phone] Antonio Riggins MD Unavailable Delmar Bowen MA Unavailable Unavailable Chronic Care Management (CCM) Status:Enrolled (Active) Start date:04/17/2024 Enrollment date:04/17/2024 Enrollment reason:Identified as hospital admit Overview Please assess for Care Management needs. 04/17/24, 3:31 PM - Sonam Gloria LPN- Patient gives verbal consent to be enrolled in CCM Program and understands there could be a bill for this service. Case Team Name Relationship Phone Delmar Bowen MA(Responsible Staff) Continued Care and Services Coordination
--- OUTSIDE RECORDS SUMMARY | 2024-10-06 08:08 | XMS_ITS | CCD ---
Author Organization [facility] CliniSynv Care Team Providers Care Ice Carver Name Role Phone Niraula, Lupillo Unavailable Unavailable PROVIDER, UNKNOWN Unavailable Unavailable JEF, OTTONIEL B Unavailable Unavailable Jef, Ottoniel Unavailable Unavailable PROVIDER, UNKNOWN Unavailable Unavailable Jef, Ottoniel Unavailable Unavailable DOZIER, DEEPIKAH Unavailable Unavailable PROVIDER, UNKNOWN Unavailable Unavailable Jef, Ottoniel Unavailable Unavailable FIGUEROA, MASROOR Unavailable Unavailable PROVIDER, UNKNOWN Unavailable Unavailable Dupuyer, Ottoniel Unavailable Unavailable FIGUEROA, MASROOR Unavailable Unavailable PROVIDER, UNKNOWN Unavailable Unavailable Jef, Ottoniel Unavailable Unavailable Dupuyer, Ottoniel Unavailable Unavailable PROVIDER, UNKNOWN Unavailable Unavailable Dupuyer, Ottoniel Unavailable Unavailable FIGUEROA, MASROOR Unavailable Unavailable PROVIDER, UNKNOWN Unavailable Unavailable Dupuyer, Ottoniel Unavailable Unavailable NIRAULA, LUPILLO Unavailable Unavailable Jef, Ottoniel Unavailable Unavailable Tsivitse Eddi Unavailable Unavailable PROVIDER, UNKNOWN Unavailable Unavailable Dupuyer, Ottoniel Unavailable Unavailable Dupuyer, Ottoniel Primary Care Provider DR HANDY KEATING [...] CEVALLOS Consulting Unavailable LEATHA, DAMASO Consulting Unavailable CARLOS, TERESA Consulting Unavailable TAL ., DANNI Consulting [...] Unavailable Ottoniel Fuchs MD Primary Care Provider [phone] ANTONIO HOPKINS Primary Care Physician [phone] MD Kale Hanna Attending Provider Kale Hanna Attending Unavailable Kale Hanna Admitting Unavailable ISIS, Kale Gonzalez Attending Unavailable ANTONIO HOPKINS Referring Unavailable Kale HANNA Attending Unavailable Kale HANNA Attending Unavailable Antonio Hopkins MD Primary Care Provider Antonio Hopkins MD Unavailable Delmar Bowen MA Unavailable Unavailable ELAYNE EL Attending Unavailable HECTOR ARELLANO Attending Unavailable ALIS HEAD P Referring Unavailable ANTONIO HOPKINS Attending Unavailable ANTONIO HOPKINS Attending Unavailable BARBIE DHALIWAL Attending Unavailable Allergies Allergy Classification Reported Allergen(s) Allergy Type Date of Onset Reaction(s) Facility (1 source) No Known Medication Allergies; Translations: [No Known Medication Allergies] Propensity to adverse reactions (disorder) [facility] Repository Medications Current Medications Medication Drug Class(es) Dates Sig (Normalized) Sig (Original) [id number] actuat albuterol 0.09 mg/actuat metered dose inhaler (20 sources) beta2-Adrenergic Agonist Start: 07-26-2023 take 2 puff(s) by inhalation every four hours for wheezing albuterol HFA 90 mcg/act inhaler Indications: Bronchiectasis without complication ([facility]) Inhale 2 puffs every 4 [...] 09/09/2018 Active amLODIPine 5 mg oral tablet (17 sources) Dihydropyridine Calcium Channel Jovita Start: 07-26-2023 End: 06-22-2025 take 1 tablet by mouth once daily amLODIPine (Norvasc) 5 MG tablet Indications: Essential hypertension, benign (CMS/HCC) Take 1 tablet (5 mg) by mouth Daily 30 tablet 11 06/22/2024 06/22/2025 Active Start: 04-09-2023 take 1 tablet by shelby th once daily amLODIPine 5 mg Tab 5 mg = 1 tab(s), Oral, Daily, Refills(s) 0 Start Date: 04/09/23 Status: Ordered aspirin 81 mg delayed release oral tablet (18 sources) Platelet Aggregation Inhibitor, Nonsteroidal Anti-inflammatory Drug Start: 04-09-2023 take 1 tablet by mouth once daily aspirin 81 mg Oral EC Tab 81 mg = 1 tab(s), Oral, Daily, Refills(s) 0 Start Date: 04/09/23 Status: Ordered take 1 tablet by mouth once ekaterina y aspirin 81 MG tablet Take 81 mg by mouth daily 0 Active calcium carbonate 1250 mg oral tablet (6 sources) Oyster Shell Jefe cium 500 MG tablet every 12 (twelve) hours Active Calcium Carbonate / Vitamin D (1 source) Start: 05-21-2010 Calcium Carbonate-Vitamin D (CALCIUM + D PO) Take by mouth daily 0 05/21/2010 Active fluticasone propionate 0.05 mg/actuat metered dose nasal spray (17 sources) Corticosteroid Start: 04-09-2023 Flonase 0.05 mg/inh [place] 100 mcg, Nasal, Daily, Refill(s) 0 Start Date: 04/09/23 Status: Ordered take 2 spray(s) nasal route once daily fluticasone (Flonase) 50 MCG/ACT nasal spray Administer 2 sprays into each nostril Daily Shake gently. Before first use, prime pump. After use, clean tip and replace cap. Active take 2 spray(s) nasa l route in the morning fluticasone (Flonase) 50 MCG/ACT nasal spray Administer 2 sprays into each nostril in the morning. Shake gently. Before first use, prime pump. After use, clean tip and replace cap.. Active 30 actuat fluticasone furoate 0.1 mg/actuat / umeclidinium 0.0625 mg/actuat / vilanterol 0.025 mg/actuat dry powder inhaler (14 sources) Anticholinergic, Corticosteroid, beta2-Adrenergic Agonist Fluticasone-Umeclidi n-Vilant [...] Active levothyroxine sodium 0.112 mg oral tablet (18 sources) l-Thyroxine Start: 08-28-2024 take 1 tablet by mouth before mealtime levothyroxine (Synthroid, Levoxyl) 112 MCG tablet Indications: Postoperative hypothyroidism (CMS/HCC) TAKE 1 TABLET BY MOUTH IN THE MORNING BEFORE MEALS 30 tablet 11 08/28/2024 Active Start: 07-26-2023 End: 07-25-2024 take 1 tablet by mouth before mealtime levothyroxine (Synthroid, Levoxyl) 112 MCG tablet Indications: Postoperative hypothyroidism (CMS/HCC) Take 1 tablet (112 mcg) by mouth in the morning. Take before meals. 30 tablet 11 07/26/2023 Active Start: 04-09-2023 take 1 tablet by [...] Active losartan potassium 50 mg oral tablet (18 sources) Angiotensin 2 Receptor Jovita Start: 08-28-2024 take 1 tablet by mouth once daily losartan (Cozaar) 50 MG tablet Indications: Essential hypertension, benign (CMS/HCC) TAKE 1 TABLET BY MOUTH DAILY 30 tablet 11 08/28/2024 Active Start: 07-26-2023 End: 07-25-2024 take 1 tablet by mouth once daily losartan (Cozaar) 50 MG tablet Indications: Essential hypertension, benign (CMS/HCC) Take 1 tablet (50 mg) by mouth Daily 30 tablet 11 07/26/2023 Active Start: 04-09-2023 take 1 tablet by shelby th once daily losartan 50 mg Tab 50 mg = 1 tab(s), Oral, Daily, Refills(s) 0 Start Date: 04/09/23 Status: Ordered Start: 08-09-2019 take 1 tablet by shelby th once daily losartan (COZAAR) 50 MG tablet Indications: HTN (hypertension), benign Take 1 tablet by mouth daily 90 tablet 3 08/09/2019 Active 24 hr metFORMIN hydrochloride 500 mg extended release oral tablet (11 sources) Biguanide Start: 09-28-2024 take 1 tablet by mouth every twenty-four hours at mealtime metFORMIN XR (Glucophage-XR) 500 MG 24 hr tablet Indications: Type 2 diabetes mellitus without complication, without long-term current use of insulin Take 1 tablet (500 mg) by mouth in the morning. Take with meals. Do not crush, chew, or split. 90 tablet 3 09/28/2024 Active Start: 08-28-2024 End: 09-28-2024 take 1 tablet by mouth at mealtime metFORMIN (Glucophage) 500 MG tablet Indications: Type 2 diabetes mellitus without complication, without long-term current use of insulin TAKE 1 TABLET BY MOUTH IN THE MORNING WITH MEALS 30 tablet 1 08/28/2024 09/28/2024 Discontinued Start: 06-12-2024 End: 07-12-2024 take 1 tablet by mouth at mealtime metFORMIN (Glucophage) 500 MG tablet Indications: Type 2 diabetes mellitus without complication, without long-term current use of insulin Take 1 tablet (500 mg) by mouth in the morning. Take with meals. 30 tablet 1 06/12/2024 Active Multiple Vitamin (MULTI-DAY PO) (16 sources) Multiple Vitamin (MULTI-DAY PO) Take by [...] Active sodium chloride 9 mg/ml inhalation solution (16 sources) sodium chloride 0.9 % nebulizer solution Take 3 mL by nebulization if needed for wheezing Active sodium chloride 0.9% Inj 10 mL Vial (1 source) Start: 04-09-2023 sodium chloride 0.9% Inj 10 mL Vial 1 inh, NEB, TID, Refill(s) 0 Start Date: 04/09/23 Status: Ordered Problems Active Problems Problem Classification Problem Date Documented Date Episodic/Chronic Acute and chronic tonsillitis (2 sources) Chronic tonsillitis; Translations: [Chronic tonsillitis] 09-19-2024 Chronic Chronic obstructive pulmonary disease and bronchiectasis (20 sources) Emphysema, unspecified; Translations: [Bronchiectasis, uncomplicated] Onset: 12-25-2016 Resolved: 09-28-2024 12-25-2016 Chronic Complications of surgical procedures or medical care (20 sources) Postprocedural hypothyroidism; Translations: [Postoperative hypothyroidism] Onset: 12-13-2014 12-25-2015 Chronic Coronary atherosclerosis and other heart disease (2 sources) Atherosclerotic heart disease of [place] coronary artery without angina pectoris; Translations: [Athscl heart disease of [place] coronary artery w/o ang pctrs] Onset: 03-08-2018 Chronic Deficiency and other anemia (2 sources) Anemia, unspecified; Translations: [Anemia, unspecified] Onset: 04-04-2018 Episodic Diabetes mellitus without complication (12 sources) Type 2 diabetes mellitus without complication; Translations: [Type 2 diabetes mellitus without complications] Onset: 06-12-2024 06-12-2024 Chronic Esophageal disorders (1 source) Gastro-esophageal reflux disease without esophagitis; Translations: [GERD WITHOUT ESOPHAGITIS] Onset: 04-01-2022 Chronic Essential hypertension (20 sources) Essential (primary) hypertension; Translations: [Benign hypertension] Onset: 12-25-2015 12-25-2015 Chronic Menopausal disorders (1 source) Hormone replacement therapy; Translations: [HORMONE REPLACEMENT THERAPY] Onset: 09-22-2022 Episodic Other aftercare (1 source) skilled nursing (current) use of aspirin; Translations: [INTERMEDIATE CURRENT USE OF ASPIRIN] Onset: 09-22-2022 Episodic Other aftercare (5 sources) Other group home (current) drug therapy; Translations: [OTH INTERMEDIATE CURRENT DRUG THERAPY] Onset: 10-30-2021 Episodic Other aftercare (6 sources) Long-term current use of inhaled steroid; Translations: [skilled nursing (current) use of inhaled steroids] Onset: 09-13-2024 09-13-2024 Episodic Other lower respiratory disease (2 sources) [...] Multiple nodules of lung 04-09-2023 Episodic Other nervous system disorders (6 sources) Critical illness myopathy; 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] Onset: 09-13-2024 Resolved: 09-28-2024 09-13-2024 Chronic Other nutritional; endocrine; and metabolic disorders (1 source) Body mass index 30+ - obesity 04-21-2023 Chronic Other nutritional; endocrine; and metabolic disorders (1 source) Obesity 04-21-2023 Chronic Other upper respiratory disease (16 sources) Allergic rhinitis due to pollen; Translations: [Allergic rhinitis due to pollen] Onset: 09-27-2023 09-27-2023 Chronic Other upper respiratory infections (6 sources) Chronic sinusitis; Translations: [Chronic sinusitis, unspecified] Onset: 09-13-2024 09-13-2024 Chronic Residual codes; unclassified (2 sources) Asymptomatic menopausal state; Translations: [Asymptomatic menopausal state] Onset: 02-22-2018 Episodic Respiratory failure; insufficiency; arrest (adult) (1 source) Chronic hypoxemic respiratory failure 04-09-2023 Chronic Screening and history of mental health and substance abuse codes (1 source) Ex-tobacco user 04-21-2023 Episodic Substance-related disorders (17 sources) Nicotine dependence, cigarettes, uncomplicated; Translations: [Tobacco [...] Da te Episodic/Chronic Diabetes mellitus without complication (20 sources) Prediabetes; Translations: [Prediabetes] Onset: 12-29-2018 Resolved: 06-12-2024 12-29-2018 Episodic Mood disorders (14 sources) Mood disorders Onset: 03-28-2024 03-28-2024 Other aftercare (16 sources) Long-term current use of drug therapy; Translations: [Other group home (current) drug therapy] Onset: 04-01-2023 04-01-2023 Episodic Other bone disease and musculoskeletal deformities (18 sources) Osteopenia; Translations: [Other specified disorders of [...] 12-25-2016 09-03-2017 Episodic Other lower respiratory disease (17 sources) Nodule of lung; Translations: [Solitary pulmonary nodule] Onset: 09-03-2017 02-08-2022 Episodic Other screening for suspected conditions (not mental disorders or infectious disease) (20 sources) Encounter for screening mammogram for malignant neoplasm of breast; Translations: [Screening for malignant neoplasm of colon done] Onset: 02-22-2018 Episodic Poisoning by other medications and drugs (1 source) Angiotensin-conver ting-enzyme inhibitor adverse reaction; Translations: [CARYL-inhibitor cough] Onset: 12-13-2014 Resolved: 12-25-2016 12-25-2016 Episodic Residual codes; unclassified (14 sources) Menopause present; Translations: [Asymptomatic menopausal state] Onset: 04-27-2024 04-27-2024 Episodic Residual codes; unclassified (14 sources) Tobacco user; Translations: [Tobacco use] Onset: 04-27-2024 04-27-2024 Episodic Results Test Name Value Interpretation Reference Range Facility Office Visiton 09-06-2024 Follow-up visit [id number] Akil Chacon 1955 F Date Provider Department Center 09/06/2024 Kamryn-ELAYNE EL [facility] Family History Problem Relation Age of Onset Coronary artery disease Mother Heart failure Father Atrial fibrillation Brother Family Status - Relation Status Age at Mother Father Sister Alive Brother Alive Level of Service:54010 DE OFFICE/OUTPATIENT NEW MODERATE MDM 45 MINUTES Normal [facility] PET+CT Bone from skull base to mid-thigh W 18F-NaF Emelina 09-05-2024 [place] [address] PET Report Signed Patient: AKIL CHACON MR#: [id number] : 1955 Acct:[id number] Age/Sex: 69 / F ADM Date: 09/04/24 Loc: PETCT Attending Dr: Alis Head D.O. Ordering Physician: Alis Head D.O. Date of Service: 09/04/24 Procedure(s): PET skull to mid thigh Accession Number(s): [id number] cc: Antonio Hopkins M.D.; Alis Head D.O. [address] [address] Patient Name: AKLI CHACON MRN: [id number] date: 1955 Sex: F Assigned Patient Location: PETCT Current Patient Location: Accession/Order Number: [id number] Exam Date: 09/05/2024 08:48 Report Date: 09/05/2024 [...] Ordaz M.D. 09/05/2024 9:12 AM Dictation Location: [place] [address] Electronically authenticated by: [id number] Y Date: 09/05/2024 09:12 Dictated By: Mary Ordaz M.D. Signed By: 09/05/24913 DD/ 1 TD/TT: Grinding Wheel Inspector: [facility] Radiology, Radiologist, - 09/05/2024 The [place] [id number] PET Report Signed Patient: AKIL CHACON MR#: [id number] : 1955 Acct:[id number] Age/Sex: 69 / F ADM Date: 09/04/24 Loc: PETCT Attending Dr: Alis Head D.O. Ordering Physician: Alis Head D.O. Date of Service: 09/04/24 Procedure(s): PET skull to mid thigh Accession Number(s): [id number] cc: Antonio Hopkins M.D.; Alis Head D.O. The [place] [address] Patient Name: AKIL CHACON MRN: [facility]:[id number] date: 1955 Sex: F Assigned Patient Location: PETCT Current Patient Location: Accession/Order Number: [id number] Exam Date: 09/05/2024 08:48 Report Date: 09/05/2024 [...] Ordaz M.D. 09/05/2024 9:12 AM Dictation Location: [place] [address] Electronically authenticated by: [id number] Y Date: 09/05/2024 09:12 Dictated By: Mary Ordaz M.D. Signed By: 09/05/24913 DD/ 1 TD/TT: Grinding Wheel Inspector: [facility] Radiology Study observation (narrative) [facility] PET+CT Bone from skull base to mid-thigh W 18F-NaF IVOrdered By: Radiologist Radiology on 09-05-2024 [facility] Work Phone: CT CHEST WO CONon 08-11-2024 [place] [address] CT Scan Report Signed Patient: AKIL CHACON MR#: [id number] : 1955 Acct:[id number] Age/Sex: 69 / F ADM Date: 08/11/24 Loc: CT Attending Dr: Alis Head D.O. Ordering Physician: Alis Head D.O. Date of Service: 08/11/24 Procedure(s): CT chest wo con Accession Number(s): [id number] cc: Antonio Hopkins M.D. The [address] [address] Patient Name: AKIL CHACON MRN: [id number] date: 1955 Sex: F Assigned Patient Location: CT Current Patient Location: CT Accession/Order Number: [id number] Exam Date: 08/11/2024 14:51 Report Date: 08/11/2024 [...] adenopathy. No pneumoperitoneum. No mediastinal hematoma. PULMONARY RGEGORY: No hilar mass or adenopathy is seen. [...] Jovanny Swanson M.D.08/11/2024 3:03 PM Dictation Location: [place] [address] Electronically authenticated by: [id number] Y Date: 08/11/2024 15:03 Dictated By: Jovanny Swanson D.O. Signed By: 08/11/24 1506 DD/ 1503 TD/TT: Grinding Wheel Inspector: [facility] Radiology, Radiologist, - 08/11/[address] [address] [address] Scan Report Signed Patient: AKIL CHACON MR#: [id number] : 1955 Acct:[id number] Age/Sex: 69 / F ADM Date: 08/11/24 Loc: CT Attending Dr: Alis Head D.O. Ordering Physician: Alis Head D.O. Date of Service: 08/11/24 Procedure(s): CT chest wo con Accession Number(s): [id number] cc: Antonio Hopkins M.D. The [place] [id number] Patient Name: AKIL CHACON MRN: [facility]:[id number] date: 1955 Sex: F Assigned Patient Location: CT Current Patient Location: CT Accession/Order Number: [id number] Exam Date: 08/11/2024 14:51 Report Date: 08/11/2024 [...] Jovanny Swanson M.D.08/11/2024 3:03 PM Dictation Location: [place] [address] Electronically authenticated by: [id number] Y Date: 08/11/2024 15:03 Dictated By: Jovanny Swanson D.O. Signed By: 08/11/24 1506 DD/ 1503 TD/TT: Grinding Wheel Inspector: [facility] Radiology Study observation (narrative) [facility] CT CHEST WO CONOrdered By: Carlos adiologist Radiology on 08-11-2024 [facility] Work Phone: ALL CBC WITH AUTO DIFFon BASOPHILS ABSOLUTE AUTO 0 [facility] Basophils/100 WBC (Bld) 0.4 % 0.2 - 2.0 % [facility] Eosinophils/100 WBC (Bld) 2.1 % 0.9 - 7.0 % [facility] Erythrocyte distribution width (RBC) [Ratio] 14 % 11.0 - 15.0 % [facility] Hematocrit (Bld) [Volume fraction] 45.2 % 36.0 - 48.0 % [facility] Hemoglobin (Bld) [Mass/Vol] 14.6 g/dL 12.0 - 16.0 g/dL [facility] IMMATURE GRANULOCYTES ABS AUTO 0.02 [facility] Immature granulocytes/100 WBC (Bld) 0.3 % 0.0 - 0.5 % [facility] Interpretation and review of laboratory results Abnormal [facility] LYMPHOCYTES ABSOLUTE AUTO 1.7 [facility] Lymphocytes/100 WBC (Bld) 22.9 % 20.5 - 60.0 % [facility] MCH (RBC) [Entitic mass] 30.7 pg 26.7 - 34.0 pg [facility] MCHC (RBC) [Mass/Vol] 32.3 g/dL 29.9 - 35.2 g/dL [facility] MCV (RBC) [Entitic vol] 95 fL 81.0 - 99.0 fL [facility] MONOCYTES ABSOLUTE AUTO 0.8 [facility] Monocytes/100 WBC (Bld) 10.4 % 1.7 - 12.0 % [facility] NEUTROPHILS ABSOLUTE AUTO 4.6 [facility] Neutrophils/100 WBC (Bld) 63.9 % 43.0 - 75.0 % [facility] Platelet mean volume (Bld) [Entitic vol] 9.1 fL Low 9.5 - 13.5 fL [facility] EO # 0.2 [facility] PLT 303 [facility] RBC 4.76 [facility] WBC 7.2 [facility] CLINISYNC [facility] ALL HEMOGLOBINon 01-31-2024 Hemoglobin (Bld) [Mass/Vol] 14.6 g/dL 12.0 - 16.0 g/dL [facility]ini [facility] [...] 1 puff(s), Inhalation, Daily Flonase 0.05 mg/inh [place], 100 mcg, Nasal, Daily levothyroxine 112 mcg [...] 02/04/2021 Recorded 2023-04-09: [id number] patient seen 06/04/2023 [facility] Comment on above: Result Comment: [...] EC Tab) fluticasone nasal (Flonase 0.05 mg/inh [place]) fluticasone-vilantero l (Breo Ellipta 100 mcg-25 mcg [...] Unchanged fluticasone nasal (Flonase 0.05 mg/ inh [place]) 100 Microgram Nasal Inhalation Every day Unchanged [...] you for choosing us for your care. [facility] Reminderson 06-04-2023 Reminders - From: Tamia Price LPN To: N - Clinical; Sent: 06/04/2023 14:05:05 EST Show up: 04/11/2033 07:00:00 EST Subject: colonoscopy recall Due Date/Time: 05/12/2033 07:00:00 EST Reminder/Recall Patient due for screening colonoscopy 05/12/2033. Normal [facility] Outside Colonoscopyon 2023 Outside Colonoscopy [id number]#1 .00TIFF [facility] Pathology Noteon 05-20-2023 Pathology Note [id number]#1. 00TIFF [facility] Matthieu 05-12-2023 L Specimen: [id number] Received: 05/12/23 Status: BILLY [place] Num: [id number] Spec Type: Surgical Subm Dr: Kale Hanna MD FACS Tissues: A Colon Biopsy (SIGMOID POLYP) Procedures: HE/2, Gross/Micro L4 Age/ Patient Sex Location Account Attending Physician Akil Chacon 67/F LABELL [id number] Kale Hanna MD FACS SPEC NUM: [id number] RECD: 05/12/23 STATUS: BILLY [place] NUM: [id number] DONIS: 05/12/[address]: Kale Hanna MD FACS ENTERED: 05/12/23 [facility] DR: Tania Nam SPEC TYPE: Surgical DEPT: PERFECTO ORTIZ ORDERED: HE/2, Gross/Micro L4 ORDERED: HE, Gross/Micro L4 Pathological Diagnosis Sigmoid polyp biopsy: - Benign hyperplastic polyp of the early serrated glandular type Clinical Information Sigmoid polyp Gross Description Received in formalin labeled with the patient's name, date of and sigmoid polyp is one shaw tissue 0.7 x 0.4 x 0.2 cm. Entirely submitted in one cassette labeled A1. CPT Codes 94278 -------- -------- Specimen: [id number] Received: 05/12/23 Status: BILLY [place] Num: [id number] Spec Type: Surgical Subm Dr: Kale Hanna MD FACS Tissues: A Colon Biopsy (SIGMOID POLYP) Procedures: KEVIN/Josue, Gross/Micro L4 -------- Patient: Akil Chacon [id number] (Continued) -------- Signed (signature on file) Ai Marquez MD 05/14/23 0853 [facility] Insurance Correspondenceon 0 05-05-2023 Insurance Correspondence [id number]#1 .00TIFF [facility] Consent for Procedure/Surger yon 04-23-2023 Consent for Procedure/Surgery [id number]#1 .00TIFF [facility] Facesheeton 04-22-2023 Facesheet [id number]# 1.00TIFF [facility] Ambulatory Visit Summaryon 1 06-22-2022 [...] EC Tab) fluticasone nasal (Flonase 0.05 mg/inh [place]) fluticasone-vilantero l (Breo Ellipta 100 mcg-25 mcg [...] Unchanged fluticasone nasal (Flonase 0.05 mg/ inh [place]) 100 Microgram Nasal Inhalation Every day Contact [...] for choosing us for your care. Normal [facility] Transfer Inon 04-06-2023 Transfer In 2 [id number]#1 .00TIFF Normal [facility] Physician Referralon 023 Physician Referral 2 [id number]#1 .00TIFF Normal [facility] CBC AUTO DIFFon 09-23-2022 BASO # 0.0 103/ul Normal 0.0-0.1 [facility] Comment on above: Performed By: #### C YTO #### [facility] [address] [place] [address] Dr. Jayy Marquez Basophils/100 WBC (Bld) 0.4 % Normal 0.2-2.0 [facility] Comment on above: Performed By: #### C YTO #### [facility] [address] [place] [address] Dr. Jayy Marquez EO # 0.1 103/ul Normal 0.0-0.7 [facility] Comment on above: Performed By: #### C YTO #### [facility] [address] [place] [address] Dr. Jayy Marquez Eosinophils/100 WBC (Bld) 0.5 % Critically low 0.9-7.0 [facility] Comment on above: Performed By: #### C YTO #### [facility] [address] [place] [address] Dr. Jayy Marquez Erythrocyte distribution width (RBC) [Ratio] 13.1 % Normal 11.0-15.0 [facility] Comment on above: Performed By: #### C YTO #### [facility] [address] [place] [address] Dr. Jayy Marquez Hematocrit (Bld) [Volume fraction] 43.0 % Normal 36.0-48.0 [facility] Comment on above: Performed By: #### C YTO #### [facility] [address] [place] [address] Dr. Jayy Marquez Hemoglobin (Bld) [Mass/Vol] 13.9 g/dL Normal 12.0-16.0 [facility] Comment on above: Performed By: #### C YTO #### [facility] [address] [place] [address] Dr. Jayy Marquez IG # 0.04 10e3/ul Critically high 0.00-0.03 [facility] Comment on above: Performed By: #### C YTO #### [facility] [address] [address] [address] Jayy Marquez IG % 0.4 % Normal 0.0-0.5 [facility] Comment on above: Performed By: #### C YTO #### [facility] [address] [address] [address] Jayy Marquez LYMPH # 0.7 103/ul Critically low 1.2-3.8 [facility] Comment on above: Performed By: #### C YTO #### [facility] [address] [address] [address] Jayy Marquez Lymphocytes/100 WBC (Bld) 6.7 % Critically low 20.5-60.0 [facility] Comment on above: Performed By: #### C YTO #### [facility] [address] [place] [address] Dr. Jayy Marquez MANUAL DIFF REQ NO Normal [facility] Comment on above: Performed By: #### C YTO #### [facility] [address] [place] [address] Dr. Jayy Marquez MCH (RBC) [Entitic mass] 31.2 pg Normal 26.7-34.0 [facility] Comment on above: Performed By: #### C YTO #### [facility] [address] [place] [address] Dr. Jayy Marquez MCHC (RBC) [Mass/Vol] 32.3 g/dL Normal 29.9-35.2 [facility] Comment on above: Performed By: #### C YTO #### [facility] [address] [place] [address] Dr. Jayy Marquez MCV (RBC) [Entitic vol] 96.4 fL Normal 81.0-99.0 [facility] Comment on above: Performed By: #### C YTO #### [facility] [address] [place] [address] Dr. Jayy Marquez MONO # 0.9 103/ul Critically high 0.3-0.8 [facility] Comment on above: Performed By: #### C YTO #### [facility] [address] [address] [address] Jayy Marquez Monocytes/100 WBC (Bld) 8.2 % Normal 1.7-12.0 [facility] Comment on above: Performed By: #### C YTO #### [facility] [address] [address] [address] Jayy Marquez NEUT # 9.0 103/ul Critically high 1.4-6.5 [facility] Comment on above: Performed By: #### C YTO #### [facility] [address] [place] [address] Dr. Jayy Marquez Neutrophils/100 WBC (Bld) 83.8 % Critically high 43.0-75.0 [facility] Comment on above: Performed By: #### C YTO #### [facility] [address] [place] [address] Dr. Jayy Marquez Platelet mean volume (Bld) [Entitic vol] 10.4 fL Normal 9.5-13.5 [facility] Comment on above: Performed By: #### C YTO #### [facility] [address] [place] [address] Dr. Jayy Marquez PLT 232 103/ul Normal 150-450 [facility] Comment on above: Performed By: #### C YTO #### [facility] [address] [place] [address] Dr. Jayy Marquez RBC 4.46 106/ul Normal 4.20-5.40 [facility] Comment on above: Performed By: #### C YTO #### [facility] [address] [place] [address] Dr. Jayy Marquez WBC 10.7 103/ul Normal 4.0-11.0 [facility] Comment on above: Performed By: #### C YTO #### [facility] [address] [place] [address] Dr. Jayy Marquez PROF CHEM 8 (BAS METB)on Anion gap [Moles/Vol] 13.4 mmol/L Normal [facility] Comment on above: Performed By: #### B MP #### [facility] [address] [address] [address] Jayy Marquez Calcium [Mass/Vol] 9.1 mg/dL Normal 8.5-10.1 [facility] Comment on above: Performed By: #### B MP #### [facility] [address] [address] [address] Jayy Marquez Chloride [Moles/Vol] 100 mmol/L Normal 98-107 [facility] Comment on above: Performed By: #### B MP #### [facility] [address] [address] [address] Jayy Marquez CO2 [Moles/Vol] 27.2 mmol/L Normal 21.0-32.0 [facility] Comment on above: Performed By: #### B MP #### [facility] [address] [address] [address] Jayy Marquez Creatinine [Mass/Vol] 0.77 mg/dL Normal 0.55-1.02 [facility] Comment on above: Performed By: #### B MP #### [facility] [address] [address] [address] Jayy Marquez EGFR-AF RUSSIAN >60 Normal >=60 [facility] Comment on above: Performed By: #### B MP #### [facility] [address] [address] [address] Jayy Marquez EGFR-NON AF RUSSIAN >60 Normal >=60 [facility] Comment on above: Performed By: #### B MP #### [facility] [address] [address] [address] Jayy Marquez Glucose [Mass/Vol] 173 mg/dL Critically high 74-106 [facility] Comment on above: Performed By: #### B MP #### [facility] [address] [address] [address] Jayy Marquez Potassium [Moles/Vol] 4.6 mmol/L Normal 3.5-5.1 [facility] Comment on above: Performed By: #### B MP #### [facility] [address] [address] [address] Jayy Marquez Sodium [Moles/Vol] 136 mmol/L Normal 136-145 [facility] Comment on above: Performed By: #### B MP #### [facility] [address] [place] [address] Dr. Jayy Marquez Urea nitrogen [Mass/Vol] 16.0 mg/dL Normal 7.0-18.0 [facility] Comment on above: Performed By: #### B MP #### [facility] [address] [place] [address] Dr. Jayy Marquez Urea nitrogen/Creatinine [Mass ratio] 20.8 mg/mg Normal [facility] Comment on above: Performed By: #### B MP #### [facility] [address] [place] [address] Dr. Jayy Marquez XR CHEST 1 Von 09-23-2022 XR CHEST 1 V EXAM: XR CHEST 1 V HISTORY: SHORTNESS OF BREATH COMPARISON: 09/22/2022 TECHNIQUE: AP view of the chest. FINDINGS: The cardiomediastinal silhouette is normal. Interstitial opacity. There is no pneumothorax. No pleural effusion is noted. The osseous structures are intact. IMPRESSION: Mild congestion. Electronically authenticated by: ELENO FUENTES Date: 2022-09-23 14:29 Normal [facility] BNPon 09-22-2022 Natriuretic peptide B (Bld) [Mass/Vol] 243.0 pg/mL Normal <=900.0 [facility] Comment on above: Performed By: #### B MP, BNP, HSTROPN #### [facility] [address] [place] [address] Dr. Jayy Marquez CBC AUTO DIFFon 09-22-2022 BASO # 0.0 103/ul Normal 0.0-0.1 [facility] Comment on above: Performed By: #### C VDAGS #### [facility] [address] [place] [address] Dr. Jayy Marquez Basophils/100 WBC (Bld) 0.4 % Normal 0.2-2.0 [facility] Comment on above: Performed By: #### C VDAGS #### [facility] [address] [place] [address] Dr. Jayy Marquez EO # 0.0 103/ul Normal 0.0-0.7 [facility] Comment on above: Performed By: #### C VDAGS #### [facility] [address] [place] [address] Dr. Jayy Marquez Eosinophils/100 WBC (Bld) 0.0 % Critically low 0.9-7.0 [facility] Comment on above: Performed By: #### C VDAGS #### [facility] [address] [place] [address] Dr. Jayy Marquez Erythrocyte distribution width (RBC) [Ratio] 13.1 % Normal 11.0-15.0 [facility] Comment on above: Performed By: #### C VDAGS #### [facility] [address] [place] [address] Dr. Jayy Marquez Hematocrit (Bld) [Volume fraction] 42.7 % Normal 36.0-48.0 [facility] Comment on above: Performed By: #### C VDAGS #### [facility] [address] [place] [address] Dr. Jayy Marquez Hemoglobin (Bld) [Mass/Vol] 13.9 g/dL Normal 12.0-16.0 [facility] Comment on above: Performed By: #### C VDAGS #### [facility] [address] [place] [address] Dr. Jayy Marquez IG # 0.03 10e3/ul Normal 0.00-0.03 [facility] Comment on above: Performed By: #### C VDAGS #### [facility] [address] [place] [address] Dr. Jayy Marquez IG % 0.4 % Normal 0.0-0.5 [facility] Comment on above: Performed By: #### C VDAGS #### [facility] [address] [place] [address] Dr. Jayy Marquez LYMPH # 0.4 103/ul Critically low 1.2-3.8 [facility] Comment on above: Performed By: #### C VDAGS #### [facility] [address] [address] [address] Jayy Marquez Lymphocytes/100 WBC (Bld) 5.5 % Critically low 20.5-60.0 [facility] Comment on above: Performed By: #### C VDAGS #### [facility] [address] [place] [address] Dr. Jayy Marquez MANUAL DIFF REQ NO Normal [facility] Comment on above: Performed By: #### C VDAGS #### [facility] [address] [place] [address] Dr. Jayy Marquez MCH (RBC) [Entitic mass] 31.2 pg Normal 26.7-34.0 [facility] Comment on above: Performed By: #### C VDAGS #### [facility] [address] [place] [address] Dr. Jayy Marquez MCHC (RBC) [Mass/Vol] 32.6 g/dL Normal 29.9-35.2 [facility] Comment on above: Performed By: #### C VDAGS #### [facility] [address] [place] [address] Dr. Jayy Marquez MCV (RBC) [Entitic vol] 96.0 fL Normal 81.0-99.0 [facility] Comment on above: Performed By: #### C VDAGS #### [facility] [address] [place] [address] Dr. Jayy Marquez MONO # 0.3 103/ul Normal 0.3-0.8 [facility] Comment on above: Performed By: #### C VDAGS #### [facility] [address] [place] [address] Dr. Jayy Marquez Monocytes/100 WBC (Bld) 3.5 % Normal 1.7-12.0 [facility] Comment on above: Performed By: #### C VDAGS #### [facility] [address] [place] [address] Dr. Jayy Marquez NEUT # 6.9 103/ul Critically high 1.4-6.5 [facility] Comment on above: Performed By: #### C VDAGS #### [facility] [address] [place] [address] Dr. Jayy Marquez Neutrophils/100 WBC (Bld) 90.2 % Critically high 43.0-75.0 [facility] Comment on above: Performed By: #### C VDAGS #### [facility] [address] [place] [address] Dr. Jayy Marquez Platelet mean volume (Bld) [Entitic vol] 9.8 fL Normal 9.5-13.5 [facility] Comment on above: Performed By: #### C VDAGS #### [facility] [address] [place] [address] Dr. Jayy Marquez PLT 207 103/ul Normal 150-450 [facility] Comment on above: Performed By: #### C VDAGS #### [facility] [address] [place] [address] Dr. Jayy Marquez RBC 4.45 106/ul Normal 4.20-5.40 [facility] Comment on above: Performed By: #### C VDAGS #### [facility] [address] [place] [address] Dr. Jayy Marquez WBC 7.6 103/ul Normal 4.0-11.0 [facility] Comment on above: Performed By: #### C VDAGS #### [facility] [address] [place] [address] Dr. Jayy Marquez BASO # 0.0 103/ul Normal 0.0-0.1 [facility] Comment on above: Performed By: #### C BC #### [facility] [address] [place] [address] Dr. Jayy Marquez Basophils/100 WBC (Bld) 0.4 % Normal 0.2-2.0 [facility] Comment on above: Performed By: #### C BC #### [facility] [address] [place] [address] Dr. Jayy Marquez EO # 0.1 103/ul Normal 0.0-0.7 [facility] Comment on above: Performed By: #### C BC #### [facility] [address] [place] [address] Dr. Jayy Marquez Eosinophils/100 WBC (Bld) 1.4 % Normal 0.9-7.0 [facility] Comment on above: Performed By: #### C BC #### [facility] [address] [place] [address] Dr. Jayy Marquez Erythrocyte distribution width (RBC) [Ratio] 13.2 % Normal 11.0-15.0 [facility] Comment on above: Performed By: #### C BC #### [facility] [address] [place] [address] Dr. Jayy Marquez Hematocrit (Bld) [Volume fraction] 45.5 % Normal 36.0-48.0 [facility] Comment on above: Performed By: #### C BC #### [facility] [address] [place] [address] Dr. Jayy Marquez Hemoglobin (Bld) [Mass/Vol] 15.3 g/dL Normal 12.0-16.0 [facility] Comment on above: Performed By: #### C BC #### [facility] [address] [place] [address] Dr. Jayy Marquez IG # 0.03 10e3/ul Normal 0.00-0.03 [facility] Comment on above: Performed By: #### C BC #### [facility] [address] [place] [address] Dr. Jayy Marquez IG % 0.3 % Normal 0.0-0.5 [facility] Comment on above: Performed By: #### C BC #### [facility] [address] [place] [address] Dr. Jayy Marquez LYMPH # 1.3 103/ul Normal 1.2-3.8 [facility] Comment on above: Performed By: #### C BC #### [facility] [address] [place] [address] Dr. Jayy Marquez Lymphocytes/100 WBC (Bld) 13.8 % Critically low 20.5-60.0 [facility] Comment on above: Performed By: #### C BC #### [facility] [address] [place] [address] Dr. Jayy Marquez MANUAL DIFF REQ NO Normal [facility] Comment on above: Performed By: #### C BC #### [facility] [address] [place] [address] Dr. Jayy Marquez MCH (RBC) [Entitic mass] 32.0 pg Normal 26.7-34.0 [facility] Comment on above: Performed By: #### C BC #### [facility] [address] [place] [address] Dr. Jayy Marquez MCHC (RBC) [Mass/Vol] 33.6 g/dL Normal 29.9-35.2 [facility] Comment on above: Performed By: #### C BC #### [facility] [address] [place] [address] Dr. Jayy Marquez MCV (RBC) [Entitic vol] 95.2 fL Normal 81.0-99.0 [facility] Comment on above: Performed By: #### C BC #### [facility] [address] [place] [address] Dr. Jayy Marquez MONO # 1.3 103/ul Critically high 0.3-0.8 [facility] Comment on above: Performed By: #### C BC #### [facility] [address] [place] [address] Dr. Jayy Marquez Monocytes/100 WBC (Bld) 13.7 % Critically high 1.7-12.0 [facility] Comment on above: Performed By: #### C BC #### [facility] [address] [place] [address] Dr. Jayy Marquez NEUT # 6.7 103/ul Critically high 1.4-6.5 [facility] Comment on above: Performed By: #### C BC #### [facility] [address] [place] [address] Dr. Jayy Marquez Neutrophils/100 WBC (Bld) 70.4 % Normal 43.0-75.0 [facility] Comment on above: Performed By: #### C BC #### [facility] [address] [place] [address] Dr. Jayy Marquez Platelet mean volume (Bld) [Entitic vol] 9.6 fL Normal 9.5-13.5 [facility] Comment on above: Performed By: #### C BC #### [facility] [address] [place] [address] Dr. Jayy Marquez PLT 218 103/ul Normal 150-450 [facility] Comment on above: Performed By: #### C BC #### [facility] [address] [place] [address] Dr. Jayy Marquez RBC 4.78 106/ul Normal 4.20-5.40 [facility] Comment on above: Performed By: #### C BC #### [facility] [address] [place] [address] Dr. Jayy Marquez WBC 9.5 103/ul Normal 4.0-11.0 [facility] Comment on above: Performed By: #### C BC #### [facility] [address] [place] [address] Dr. Jayy Marquez PROF CHEM 8 (BAS METB)on Anion gap [Moles/Vol] 11.3 mmol/L Normal [facility] Comment on above: Performed By: #### B MP #### [facility] [address] [place] [address] Dr. Jayy Marquez Calcium [Mass/Vol] 8.7 mg/dL Normal 8.5-10.1 [facility] Comment on above: Performed By: #### B MP #### [facility] [address] [place] [address] Dr. Jayy Marquez Chloride [Moles/Vol] 100 mmol/L Normal 98-107 [facility] Comment on above: Performed By: #### B MP #### [facility] [address] [place] [address] Dr. Jayy Marquez CO2 [Moles/Vol] 27.6 mmol/L Normal 21.0-32.0 [facility] Comment on above: Performed By: #### B MP #### [facility] [address] [address] [address] Jayy Marquez Creatinine [Mass/Vol] 0.82 mg/dL Normal 0.55-1.02 [facility] Comment on above: Performed By: #### B MP #### [facility] [address] [address] [address] Jayy Marquez EGFR-AF RUSSIAN >60 Normal >=60 [facility] Comment on above: Performed By: #### B MP #### [facility] [address] [place] [address] Dr. Jayy Marquez EGFR-NON AF RUSSIAN >60 Normal >=60 [facility] Comment on above: Performed By: #### B MP #### [facility] [address] [place] [address] Dr. Jayy Marquez Glucose [Mass/Vol] 203 mg/dL Critically high 74-106 [facility] Comment on above: Performed By: #### B MP #### [facility] [address] [address] [address] Jayy Marquez Potassium [Moles/Vol] 3.9 mmol/L Normal 3.5-5.1 [facility] Comment on above: Performed By: #### B MP #### [facility] [address] [place] [address] Dr. Jayy Marquez Sodium [Moles/Vol] 135 mmol/L Critically low 136-145 [facility] Comment on above: Performed By: #### B MP #### [facility] [address] [address] [address] Jayy Marquez Urea nitrogen [Mass/Vol] 11.0 mg/dL Normal 7.0-18.0 [facility] Comment on above: Performed By: #### B MP #### [facility] [address] [place] [address] Dr. Jayy Marquez Urea nitrogen/Creatinine [Mass ratio] 13.4 mg/mg Normal [facility] Comment on above: Performed By: #### B MP #### [facility] [address] [place] [address] Dr. Jayy Marquez Anion gap [Moles/Vol] 12.9 mmol/L Normal [facility] Comment on above: Performed By: #### C YTO #### [facility] [address] [place] [address] Dr. Jayy Marquez Calcium [Mass/Vol] 9.2 mg/dL Normal 8.5-10.1 [facility] Comment on above: Performed By: #### C YTO #### [facility] [address] [address] [address] Jayy Marquez Chloride [Moles/Vol] 98 mmol/L Normal 98-107 [facility] Comment on above: Performed By: #### C YTO #### [facility] [address] [place] [address] Dr. Jayy Marquez CO2 [Moles/Vol] 25.8 mmol/L Normal 21.0-32.0 [facility] Comment on above: Performed By: #### C YTO #### [facility] [address] [place] [address] Dr. Jayy Marquez Creatinine [Mass/Vol] 0.90 mg/dL Normal 0.55-1.02 [facility] Comment on above: Performed By: #### C YTO #### [facility] [address] [place] [address] Dr. Jayy Marquez EGFR-AF RUSSIAN >60 Normal >=60 [facility] Comment on above: Performed By: #### C YTO #### [facility] [address] [place] [address] Dr. Jayy Marquez EGFR-NON AF RUSSIAN >60 Normal >=60 [facility] Comment on above: Performed By: #### C YTO #### [facility] [address] [address] [address] Jayy Marquez Glucose [Mass/Vol] 150 mg/dL Critically high 74-106 [facility] Comment on above: Performed By: #### C YTO #### [facility] [address] [place] [address] Dr. Jayy Marquez Potassium [Moles/Vol] 3.7 mmol/L Normal 3.5-5.1 [facility] Comment on above: Performed By: #### C YTO #### [facility] [address] [place] [address] Dr. Jayy Marquez Sodium [Moles/Vol] 133 mmol/L Critically low 136-145 [facility] Comment on above: Performed By: #### C YTO #### [facility] [address] [place] [address] Dr. Jayy Marquez Urea nitrogen [Mass/Vol] 14.0 mg/dL Normal 7.0-18.0 [facility] Comment on above: Performed By: #### C YTO #### [facility] [address] [place] [address] Dr. Jayy Marquez Urea nitrogen/Creatinine [Mass ratio] 15.6 mg/mg Normal [facility] Comment on above: Performed By: #### C YTO #### [facility] [address] [place] [address] Dr. Jayy Marquez RESPIRATORY PANEL PLUSon Adenovirus Not detected Normal NOT DETECTED [facility] Comment on above: Performed By: #### C VDAGS #### [facility] [address] [place] [address] Dr. Jayy King. Parapertusis Not detected Normal NOT DETECTED [facility] Comment on above: Performed By: #### C VDAGS #### [facility] [address] [place] [address] Dr. Jayy King. Pertussis Not detected Normal NOT DETECTED [facility] Comment on above: Performed By: #### C VDAGS #### [facility] [address] [place] [address] Dr. Jayy Marquez Chlamydia Pneumoniae Not detected Normal NOT DETECTED [facility] Comment on above: Performed By: #### C VDAGS #### [facility] [address] [place] [address] Dr. Jayy Marquez Coronavirus 229E Not detected Normal NOT DETECTED The [facility] Comment on above: Performed By: #### C VDAGS #### [facility] [address] [place] [address] Dr. Jayy Marquez Coronavirus HKU1 Not detected Normal NOT DETECTED The [facility] Comment on above: Performed By: #### C VDAGS #### [facility] [address] [place] [address] Dr. Jayy Marquez Coronavirus NL63 Not detected Normal NOT DETECTED The [facility] Comment on above: Performed By: #### C VDAGS #### [facility] [address] [place] [address] Dr. Jayy Marquez Coronavirus OC43 Not detected Normal NOT DETECTED The [facility] Comment on above: Performed By: #### C VDAGS #### [facility] [address] [place] [address] Dr. Jayy Marquez Influenza A H1 Not detected Normal NOT DETECTED [facility] Comment on above: Performed By: #### C VDAGS #### [facility] [address] [place] [address] Dr. Jayy Marquez Influenza A H1 2009 Not detected Normal NOT DETECTED [facility] Comment on above: Performed By: #### C VDAGS #### [facility] [address] [place] [address] Dr. Jayy Marquez Influenza A H3 Not detected Normal NOT DETECTED [facility] Comment on above: Performed By: #### C VDAGS #### [facility] [address] [place] [address] Dr. Jayy Marquez Influenza B Not detected Normal NOT DETECTED [facility] Comment on above: Performed By: #### C VDAGS #### [facility] [address] [place] [address] Dr. Jayy Marquez Metapneumovirus Not detected Normal NOT DETECTED [facility] Comment on above: Performed By: #### C VDAGS #### [facility] [address] [place] [address] Dr. Jayy Marquez Mycoplas. Pneumoniae Not detected Normal NOT DETECTED The [facility] Comment on above: Performed By: #### C VDAGS #### [facility] [address] [place] [address] Dr. Jayy Marquez Parainfluenza 1 Not detected Normal NOT DETECTED [facility] Comment on above: Performed By: #### C VDAGS #### [facility] [address] [place] [address] Dr. Jayy Marquez Parainfluenza 2 Not detected Normal NOT DETECTED [facility] Comment on above: Performed By: #### C VDAGS #### [facility] [address] [place] [address] Dr. Jayy Marquez Parainfluenza 3 Not detected Normal NOT DETECTED [facility] Comment on above: Performed By: #### C VDAGS #### [facility] [address] [place] [address] Dr. Jayy Marquez Parainfluenza 4 Not detected Normal NOT DETECTED [facility] Comment on above: Performed By: #### C VDAGS #### [facility] [address] [place] [address] Dr. Jayy Marquez Rhino/Enterovirus Not detected Normal NOT DETECTED The [facility] Comment on above: Performed By: #### C VDAGS #### [facility] [address] [place] [address] Dr. Jayy Marquez RP2 Header 1 RESPIRATORY PANEL: VIRUSES Normal [facility] Comment on above: Performed By: #### C VDAGS #### [facility] [address] [place] [address] Dr. Jayy FAIR Header 2 RESPIRATORY PANEL: BACTERIA Normal The [facility] Comment on above: Performed By: #### C VDAGS #### [facility] [address] [place] [address] Dr. Jayy Marquez RSV Not detected Normal NOT DETECTED The [facility] Comment on above: Performed By: #### C VDAGS #### [facility] [address] [place] [address] Dr. Jayy Marquez SARS-CoV-2 (COVID-19) RNA SILVINO+probe Ql (Unsp spec) Not detected Normal NOT DETECTED The [facility] Comment on above: Performed By: #### C VDAGS #### [facility] [address] [place] [address] Dr. Jayy Marquez SYMPTOMATIC COVID-19 ANTIGEN on 09-22-2022 EUA Statement SEE BELOW Normal [facility] Comment on above: Result Comment: This [...] Performed By: #### C VDAGS #### [facility] [address] [place] [address] Dr. Jayy Marquez SARS-CoV-2 (COVID-19) RNA SILVINO+probe Ql (Unsp spec) Negative Normal NEGATIVE The [facility] Comment on above: Performed By: #### C VDAGS #### [facility] [address] [place] [address] Dr. Jayy Marquez TROPONIN, HIGH SENSITIVITYon 09-22-2022 HSTROP 12.9 pg/mL Normal 4.0-51.3 The [facility] Comment on above: Result Comment: CUT- OFF POINTS HAVE BEEN ESTABLISHED BASED ON THE FOURTH UNIVERSAL DEFINITIONS OF MYOCARDIAL INFARCTION. THE UPPER REFERENCE LIMIT (URL) OF TROPONIN, DEFINED THE 99TH PERCENTILE OF cTnI DISTRIBUTION IN A REFERENCE POPULATION, HAS BEEN CONFIRMED THE DECISION THRESHOLD FOR [place] DIAGNOSIS. Performed By: #### B MP, BNP, HSTROPN #### [facility] [address] [place] [address] Dr. Jayy Marquez XR CHEST 1 Von [...] CEVALLOS Date: 2022-09-22 00:51 Normal The [facility] CT CHEST WO CONon 09-01-2022 CT [...] KEATING Date: 2022-09-01 15:28 Normal The [facility] ACID FAST SMEAR AND CXon Acid Fast Culture Negative Normal [facility] Comment on above: Result Comment: No a goyo fast bacilli isolated after 6 weeks. Performed By: #### A FB #### [facility] [address] [address] [address] Jayy Marquez Performed By: #### C VDAGS #### [facility] [address] [address] [address] Jayy Marquez Acid Fast Smear Negative Normal [facility] Comment on above: Performed By: #### A FB #### [facility] [address] [place] [address] Dr. Jayy Marquez Performed By: #### C VDAGS #### [facility] [address] [place] [address] Dr. Jayy Marquez [employer] Specimen Processing Concentration Normal [facility] Comment on above: Performed By: #### A FB #### [facility] [address] [place] [address] Dr. Jayy Marquez Performed By: #### C VDAGS #### [facility] [address] [place] [address] Dr. Jayy Marquez FUNGAL CULTUREon 04-23-2022 Fungus (Mycology) Culture Final report [facility] Comment on above: Performed By: #### C XFUN #### [facility] [address] [place] [address] Dr. Jayy Marquez Performed By: #### C VDAGS #### [facility] [address] [place] [address] Dr. Jayy Marquez Fungus Stain Final report Normal [facility] Comment on above: Performed By: #### C XFUN #### [facility] [address] [place] [address] Dr. Jayy Marquez Performed By: #### C VDAGS #### [facility] [address] [place] [address] Dr. Jayy Marquez Result 1 Comment Normal [facility] Comment on above: Result Comment: TANYA/ Calcofluor preparation: no fungus observed. Performed By: #### C XFUN #### [facility] [address] [place] [address] Dr. Jayy Marquez Result Comment: No y east or mold isolated after 4 weeks. Performed By: #### C VDAGS #### [facility] [address] [place] [address] Dr. Jayy Marquez CULTURE OTHERon 03-26-2022 CULTURE [...] S F Tetracycline >=16 R F Normal [facility] Comment on above: Performed By: #### C YTO #### [facility] [address] [place] [address] Dr. Jayy Marquez CULTURE OTHERon 03-25-2022 CULTURE [...] S F Levofloxacin 0.25 S F Normal [facility] Comment on above: Performed By: #### C YTO #### [facility] [address] [place] [address] Dr. Jayy Marquez CYTOLOGYon 03-23-2022 SENT TO REF LAB 03/23/2022 Normal [facility] Comment on above: Performed By: #### C YTO #### [facility] [address] [place] [address] Dr. Jayy Marquez GRAM STAINon 03-23-2022 DIPHTHEROIDS Normal [facility] Comment on above: Performed By: #### C VDAGS #### [facility] [address] [place] [address] Dr. Jayy Marquez EPITHELIALS Normal The [facility] Comment on above: Performed By: #### C VDAGS #### [facility] [address] [address] [address] Jayy Marquez FUNGAL ELEMENTS Normal [facility] Comment on above: Performed By: #### C VDAGS #### [facility] [address] [address] [address] Jayy Marquez GRAM NEG BACILLI FEW Normal [facility] Comment on above: Performed By: #### C VDAGS #### [facility] [address] [address] [address] Jayy AMADOR NEG DIPPLOCOCCI [place] [facility] Comment on above: Performed By: #### C VDAGS #### [facility] [address] [address] [address] Jayy Marquez GRAM POS BACILLI [facility] Comment on above: Performed By: #### C VDAGS #### [facility] [address] [address] [address] Jayy AMADOR POSITIVE COCCI FEW Normal [facility] Comment on above: Performed By: #### C VDAGS #### [facility] [address] [address] [address] Jayy Mraquez GRAM STAIN SOURCE Rt Middle Lobe Lavage [facility] Comment on above: Performed By: #### C VDAGS #### [facility] [address] [address] [address] Jayy Marquez GRAM STAIN SOURCE Lingula Lt Upper Lob e Lavage Normal The [facility] Comment on above: Performed By: #### C VDAGS #### [facility] [address] [address] [address] Jayy Marquez GS_DIPTH [place] [facility] Comment on above: Performed By: #### C VDAGS #### [facility] [address] [address] [address] Jayy Marquez WBC MANY Normal [facility] Comment on above: Performed By: #### C VDAGS #### [facility] [address] [address] [address] Jayy Marquez WBC MODERATE Normal [facility] Comment on above: Performed By: #### C VDAGS #### [facility] [address] [address] [address] Jayy Marquez Covid-19 PCR ([facility])on 02-25 SARS-CoV-2 (COVID-19) RNA SILVINO+probe Ql (Unsp spec) Not detected Normal NOT DETECTED The [facility] Comment on above: Result Comment: This test is not yet approved or cleared by the [place] FDA. When there are no FDA-approved or cleared tests available, and other criteria are met, FDA can make tests available under an emergency access mechanism called an Emergency Use Authorization (EUA). The EUA for this test is supported by the [employer] of Health and Human Service's (HHS's) declaration [...] Performed By: #### C YTO #### [facility] [address] [address] [address] LUNG CANCER SCREENINGon [...] KEATING Date: 2022-03-04 16:14 Normal The [facility] CBC AUTO DIFFon 10-30-2021 BASO # 0.0 103/ul Normal 0.0-0.1 The [facility] Comment on above: Performed By: #### C VDAGS #### [facility] [address] [place] [address] Dr. Jayy Marquez Basophils/100 WBC (Bld) 0.7 % Normal 0.2-2.0 The [facility] Comment on above: Performed By: #### C VDAGS #### [facility] [address] [address] [address] Jayy Marquez EO # 0.2 103/ul Normal 0.0-0.7 The [facility] Comment on above: Performed By: #### C VDAGS #### [facility] [address] [address] [address] Jayy Marquez Eosinophils/100 WBC (Bld) 2.6 % Normal 0.9-7.0 [facility] Comment on above: Performed By: #### C VDAGS #### [facility] [address] [place] [address] Dr. Jayy Marquez Erythrocyte distribution width (RBC) [Ratio] 14.7 % Normal 11.0-15.0 [facility] Comment on above: Performed By: #### C VDAGS #### [facility] [address] [place] [address] Dr. Jayy Marquez Hematocrit (Bld) [Volume fraction] 48.9 % Critically high 36.0-48.0 [facility] Comment on above: Performed By: #### C VDAGS #### [facility] [address] [place] [address] Dr. Jayy Marquez Hemoglobin (Bld) [Mass/Vol] 15.5 g/dL Normal 12.0-16.0 [facility] Comment on above: Performed By: #### C VDAGS #### [facility] [address] [place] [address] Dr. Jayy Mraquez IG # 0.01 10e3/ul Normal 0.00-0.03 [facility] Comment on above: Performed By: #### C VDAGS #### [facility] [address] [place] [address] Dr. Jayy Marquez IG % 0.2 % Normal 0.0-0.5 [facility] Comment on above: Performed By: #### C VDAGS #### [facility] [address] [place] [address] Dr. Jayy Marquez LYMPH # 1.6 103/ul Normal 1.2-3.8 The [facility] Comment on above: Performed By: #### C VDAGS #### [facility] [address] [place] [address] Dr. Jayy Marquez Lymphocytes/100 WBC (Bld) 26.0 % Normal 20.5-60.0 The [facility] Comment on above: Performed By: #### C VDAGS #### [facility] [address] [place] [address] Dr. Jayy Marquez MANUAL DIFF REQ NO Normal [facility] Comment on above: Performed By: #### C VDAGS #### [facility] [address] [address] [address] Jayy Marquez MCH (RBC) [Entitic mass] 31.5 pg Normal 26.7-34.0 The [facility] Comment on above: Performed By: #### C VDAGS #### [facility] [address] [place] [address] Dr. Jayy Marquez MCHC (RBC) [Mass/Vol] 31.7 g/dL Normal 29.9-35.2 The [facility] Comment on above: Performed By: #### C VDAGS #### [facility] [address] [place] [address] Dr. Jayy Marquez MCV (RBC) [Entitic vol] 99.4 fL Critically high 81.0-99.0 [facility] Comment on above: Performed By: #### C VDAGS #### [facility] [address] [place] [address] Dr. Jayy Marquez MONO # 0.8 103/ul Normal 0.3-0.8 [facility] Comment on above: Performed By: #### C VDAGS #### [facility] [address] [place] [address] Dr. Jayy Marquez Monocytes/100 WBC (Bld) 12.4 % Critically high 1.7-12.0 [facility] Comment on above: Performed By: #### C VDAGS #### [facility] [address] [place] [address] Dr. Jayy Marquez NEUT # 3.6 103/ul Normal 1.4-6.5 The [facility] Comment on above: Performed By: #### C VDAGS #### [facility] [address] [place] [address] Dr. Jayy Marquez Neutrophils/100 WBC (Bld) 58.1 % Normal 43.0-75.0 The [facility] Comment on above: Performed By: #### C VDAGS #### [facility] [address] [place] [address] Dr. Jayy Marquez Platelet mean volume (Bld) [Entitic vol] 10.1 fL Normal 9.5-13.5 The [facility] Comment on above: Performed By: #### C VDAGS #### [facility] [address] [place] [address] Dr. Jayy Marquez PLT 234 103/ul Normal 150-450 [facility] Comment on above: Performed By: #### C VDAGS #### [facility] [address] [place] [address] Dr. Jayy Marquez RBC 4.92 106/ul Normal 4.20-5.40 [facility] Comment on above: Performed By: #### C VDAGS #### [facility] [address] [place] [address] Dr. Jayy Marquez WBC 6.2 103/ul Normal 4.0-11.0 [facility] Comment on above: Performed By: #### C VDAGS #### [facility] [address] [place] [address] Dr. Jayy Marquez FREE T3on 10-30-2021 FREE T3 2.73 pg/mlL Normal 2.18-3.98 [facility] Comment on above: Performed By: #### C VDAGS #### [facility] [address] [place] [address] Dr. Jayy Marquez FREE T4on 10-30-2021 Free T4 [Mass/Vol] 1.25 ng/dL Normal 0.76-1.46 The [facility] Comment on above: Performed By: #### F T4 #### [facility] [address] [place] [address] Dr. Jayy Marquez PROF CHEM 8 (BAS METB)on Anion gap [Moles/Vol] 8.8 mmol/L Normal [facility] Comment on above: Performed By: #### C VDAGS #### [facility] [address] [place] [address] Dr. Jayy Marquez Calcium [Mass/Vol] 9.4 mg/dL Normal 8.5-10.1 [facility] Comment on above: Performed By: #### C VDAGS #### [facility] [address] [place] [address] Dr. Jayy Marquez Chloride [Moles/Vol] 104 mmol/L Normal 98-107 [facility] Comment on above: Performed By: #### C VDAGS #### [facility] [address] [place] [address] Dr. Jayy Marquez CO2 [Moles/Vol] 29.4 mmol/L Normal 21.0-32.0 [facility] Comment on above: Performed By: #### C VDAGS #### [facility] [address] [place] [address] Dr. Jayy Marquez Creatinine [Mass/Vol] 0.74 mg/dL Normal 0.55-1.02 [facility] Comment on above: Performed By: #### C VDAGS #### [facility] [address] [place] [address] Dr. Jayy Marquez EGFR-AF RUSSIAN >60 Normal >=60 [facility] Comment on above: Performed By: #### C VDAGS #### [facility] [address] [place] [address] Dr. Jayy Marquez EGFR-NON AF RUSSIAN >60 Normal >=60 [facility] Comment on above: Performed By: #### C VDAGS #### [facility] [address] [place] [address] Dr. Jayy Marquez Glucose [Mass/Vol] 108 mg/dL Critically high 74-106 [facility] Comment on above: Performed By: #### C VDAGS #### [facility] [address] [place] [address] Dr. Jayy Marquez Potassium [Moles/Vol] 4.2 mmol/L Normal 3.5-5.1 [facility] Comment on above: Performed By: #### C VDAGS #### [facility] [address] [place] [address] Dr. Jayy Marquez Sodium [Moles/Vol] 138 mmol/L Normal 136-145 [facility] Comment on above: Performed By: #### C VDAGS #### [facility] [address] [place] [address] Dr. Jayy Marquez Urea nitrogen [Mass/Vol] 16.0 mg/dL Normal 7.0-18.0 [facility] Comment on above: Performed By: #### C VDAGS #### [facility] [address] [place] [address] Dr. Jayy Marquez Urea nitrogen/Creatinine [Mass ratio] 21.6 mg/mg Normal [facility] Comment on above: Performed By: #### C VDAGS #### [facility] [address] [place] [address] Dr. Jayy Marquez SGOTon 10-30-2021 AST [Catalytic activity/Vol] 11 U/L Critically low 15-37 [facility] Comment on above: Performed By: #### B MP #### [facility] [address] [place] [address] Dr. Jayy Marquez SGPTon 10-30-2021 ALT [Catalytic activity/Vol] 22 U/L Normal 14-59 [facility] Comment on above: Performed By: #### C VDAGS #### [facility] [address] [place] [address] Dr. Jayy Marquez TSHon 10-30-2021 TSH 1.593 uIU/mL Normal 0.358-3.740 [facility] Comment on above: Performed By: #### B MP #### [facility] [address] [place] [address] LUNG SCREENING (ANNUAL)on 09-26-2019 Patient Name: AKIL CHACON ---CT--- Exam Date/Time 09/26/2019 10:55:[address] Low Dose Lung Scrn Ordering Physician RAVINDRA THURMAN TAMMY KAY Accession Number [id number] CPT4 Codes G0297 (CT Low Dose Lung [...] ROBERT Transcribed Date and Time: 09/26/2019 1:18 [facility], [place] Octavio, [facility] Incoming Radiology Results From [facility] - 09/26/2019 1:28 PM EDT Patient Name: AKIL CHACON ---CT--- Exam Date/Time 09/26/2019 10:55:[address] Low Dose Lung Scrn Ordering Physician RAVINDRA THURMAN TAMMY KAY Accession Number [id number] CPT4 Codes G0297 (CT Low Dose Lung [...] ROBERT Transcribed Date and Time: 09/26/2019 1:18 [place], [place] CT Low Dose Lung Screeningon 09-26-2019 CT Low Dose Lung Screening Patient Name: AKIL CHACON [facility]: [id number] CT Exam Date/Time 09/26/2019 10:55:[address] Low Dose Lung Scrn Ordering Physician RAVINDRA THURMAN, SHELBI PERLA Accession Number [id number] CPT4 Codes G0297 (CT Low Dose Lung [...] Transcribed Date and Time: 09/26/2019 1:18 Normal [facility] OBSOLETEon 11-13-2016 OBSOLETE Refill (ENDMED) ----AKIL CHACON ([id number]) 1955 FDate Time Provider Department11/13/16 [place] RATLIFF During your [...] MADELEINE ARIAS MA on 11/16/[address] [facility] Colonoscopy w/ or w/o biopsy on 01-12-2013 Colon polyps Internal hemorrhoids Normal appearing terminal ileum and colonic mucosa, s/p random biopsies [facility] This order was created through External Result Entry [facility] Vital Signs Date Time Vital Sign Value Performing Clinician Facility 09-28-2024 14:040 Body height 162.6 cm Antonio Hopkins MD Work Phone: [facility] 09-28-2024 14:02040 Body mass index (BMI) [Ratio] 29.35 kg/m2 Antonio Hopkins MD Work Phone: [facility] 09-28-2024 14:02040 Body temperature 97.81 [degF] Antonio Hopkins MD Work Phone: [facility] 09-28-2024 14:02-0400 Body weight 77.56 kg Antonio Hopkins MD Work Phone: [facility] 09-28-2024 14:02-0400 Diastolic blood pressure 64 mm[Hg] Antonio Hopkins MD Work Phone: [facility] 09-28-2024 14:02-0400 Heart rate 74 /min Antonio Hopkins MD Work Phone: [facility] 09-28-2024 14:02-0400 Respiratory rate 22 /min Antonio Hopkins MD Work Phone: [facility] 09-28-2024 14:02-0400 SaO2% (BldA) [Mass fraction] 93 % Antonio Hopkins MD Work Phone: [facility] 09-28-2024 14:02-0400 Systolic blood pressure 116 mm[Hg] Antonio Hopkins MD Work Phone: [facility] 09-19-2024 09:18-0400 Body height 162.6 cm Hecotr Arellano MD Work Phone: [facility] 09-19-2024 09:18-0400 Body mass index (BMI) [Ratio] 30.38 kg/m2 Hector Arellano MD Work Phone: [facility] 09-19-2024 09:18-0400 Body weight 80.29 kg Hector Arellano MD Work Phone: [facility] 09-19-2024 09:18-0400 Diastolic blood pressure 66 mm[Hg] Hector Arellano MD Work Phone: [facility] 09-19-2024 09:18-0400 Heart rate 65 /min Hector Arellano MD Work Phone: [facility] 09-19-2024 09:18-0400 Systolic blood pressure 121 mm[Hg] Hector Arellano MD Work Phone: [facility] 04-27-2024 11:07-0500 Body height 162.6 cm Barbie Dhaliwal [employer] Work Phone: [facility] 04-27-2024 11:07-0500 Body mass index (BMI) [Ratio] 30.55 kg/m2 Barbie Dhaliwal [employer]IST Work Phone: [facility] 04-27-2024 11:07-0500 Body temperature 97.81 [degF] Barbie Dhaliwal [employer]IST Work Phone: [facility] 04-27-2024 11:07-0500 Body weight 80.74 kg Barbie Dhaliwal [employer]IST Work Phone: [facility] 04-27-2024 11:07-0500 Diastolic blood pressure 62 mm[Hg] Barbie Dhaliwal [employer]IST Work Phone: [facility] 04-27-2024 11:07-0500 Heart rate 74 /min Barbie Dhaliwal [employer] Work Phone: [facility] 04-27-2024 11:07-0500 Respiratory rate 16 /min Barbie Dhaliwal [employer] Work Phone: [facility] 04-27-2024 11:07-0500 SaO2% (BldA) [Mass fraction] 97 % Barbie Dhaliwal [employer]IST Work Phone: [facility] 04-27-2024 11:07-0500 Systolic blood pressure 110 mm[Hg] Barbie Dhaliwal [employer]IST Work Phone: [facility] 03-28-2024 11:16-0500 Body height 162.6 cm Antonio Hopkins MD Work Phone: [facility] 03-28-2024 11:16-0500 Body mass index (BMI) [Ratio] 31.07 kg/m2 Antonio Hopkins MD Work Phone: [facility] 03-28-2024 11:16-0500 Body temperature 97.11 [degF] Antonio Hopkins MD Work Phone: [facility] 03-28-2024 11:16-0500 Body weight 82.1 kg Antonio Hopkins MD Work Phone: [facility] 03-28-2024 11:16-0500 Diastolic blood pressure 60 mm[Hg] Antonio Hopkins MD Work Phone: [facility] 03-28-2024 11:16-0500 Heart rate 71 /min Antonio Hopkins MD Work Phone: [facility] 03-28-2024 11:16-0500 Respiratory rate 22 /min Antonio Hopkins MD Work Phone: [facility] 03-28-2024 11:16-0500 SaO2% (BldA) [Mass fraction] 97 % Antonio Hopkins MD Work Phone: [facility] 03-28-2024 11:16-0500 Systolic blood pressure 116 mm[Hg] Antonio Hopkins MD Work Phone: [facility] 04-21-2023 14:10-0500 Blood Pressure Location Kale HANNA [facility] 04-21-2023 14:10-0500 Diastolic blood pressure 78 mm[Hg] Kale HANNA [facility] [place] 04-21-2023 14:10-0500 Heart rate 72 /min Kale HANNA [facility] [place] 04-21-2023 14:10-0500 Respiratory rate 16 /min Kale HANNA [facility] [place] 04-21-2023 14:10-0500 Systolic blood pressure 128 mm[Hg] Kale HANNA [facility] [place] Encounters Encounter Date Encounter Type Care Provider Facility Start: 09-28-2024 End: 09-28-2024 Bamboo flowsheet Antonio Hopkins MD Work Phone: [facility] Start: 09-28-2024 End: 09-28-2024 Bamboo flowsheet Antonio Hopkins MD Work Phone: [facility] Start: 09-28-2024 End: 09-28-2024 Office outpatient visit 25 minutes Antonio Hopkins MD Work Phone: [facility] Comment on above: Type 2 diabetes rhea itus without complication, without long- term current use of insulin (Primary Dx); HTN (hypertension), benign (CMS/HCC); Bronchiolectasis (CMS/HCC); Centrilobular emphysema (CMS/HCC) Start: 09-28-2024 End: 09-28-2024 ambulatory ANTONIO HOPKINS Not Available Start: 09-19-2024 End: 09-19-2024 Bamboo flowsheet Hector Arellano MD Work Phone: [facility] Start: 09-19-2024 End: 09-19-2024 Bamkyleo flowsheet Hector Arellano MD Work Phone: [facility] Start: 09-19-2024 End: 09-19-2024 Office outpatient new 45 minutes Hector Arellano MD Work Phone: [facility] Comment on above: Abnormal positron em ission tomography (PET) scan (Primary Dx); Chronic tonsillitis Start: 09-19-2024 End: 09-19-2024 ambulatory HECTOR ARELLANO Not Available Start: 09-06-2024 End: 09-06-2024 ambulatory AB [facility] Start: 09-05-2024 End: 09-05-2024 Clinisync Result Encounter Generic External Data Provider [facility] External Department Unsolicited Start: 09-05-2024 End: 09-05-2024 Clinisync Result Encounter Generic External Data Provider [facility] External Department Unsolicited Start: 08-11-2024 End: 08-11-2024 Clinisync Result Encounter Generic External Data Provider [facility] External Department Unsolicited Start: 08-11-2024 End: 08-11-2024 Clinisync Result Encounter Generic External Data Provider [facility] External Department Unsolicited Start: 06-12-2024 End: 06-12-2024 Refill Barbie Aichholz BODY MAKE UP ARTIST Work Phone: [facility] Comment on above: Type 2 diabetes rhea itus without complication, without long- term current use of insulin (CMS/HCC) (Primary Dx) Start: 06-05-2024 End: 06-05-2024 Clinisync Result Encounter Barbie Sidhujennifer BODY MAKE UP ARTIST Work Phone: [facility] External Department Unsolicited Start: 06-05-2024 End: 06-05-2024 Clinisync Result Encounter Barbiejoe Sidhujennifer BODY MAKE UP ARTIST Work Phone: [facility] External Department Unsolicited Start: 04-27-2024 End: 04-27-2024 Transitional care manage srvc 14 day discharge Barbie Sidhujennifer BODY MAKE UP ARTIST Work Phone: [facility] Comment on above: COPD with acute exac erbation (CMS/HCC) (Primary Dx); Centrilobular emphysema (CMS/HCC); HTN (hypertension), benign (CMS/HCC); Postoperative hypothyroidism (CMS/HCC); Encounter for screening mammogram for malignant neoplasm of breast; Prediabetes; Osteopenia, unspecified location; Menopause; Tobacco user Start: 04-27-2024 End: 04-27-2024 ambulatory BARBIE THEAKAPILHalley Not Available Start: 03-28-2024 End: 03-28-2024 Bamboo flowsheet Antonio Hopkins MD Work Phone: [facility] Start: 03-28-2024 End: 03-28-2024 Bamboo flowsheet Antonio Hopkins MD Work Phone: [facility] Start: 03-28-2024 End: 03-28-2024 Patient encounter procedure Antonio Hopkins MD Work Phone: [facility] Healthcare Work Phone: Start: 03-28-2024 End: 03-28-2024 [...] Data Provider [facility] External Department Unsolicited Start: 06-04-2023 End: 06-05-2023 ambulatory Kale R NILL [facility] Start: 05-12-2023 End: 05-12-2023 ambulatory Kale R Nill Facility:[facility] Start: 05-12-2023 End: 05-13-2023 ambulatory Kale R NILL [facility] Work Phone: Start: 05-12-2023 End: 05-12-2023 Departed Referred MD Kale Hanna Work Phone: [facility] Start: 04-21-2023 End: 04-22-2023 ambulatory Kale R NILL Facility:[facility] Start: 04-21-2023 End: 04-21-2023 Patient [facility] Start: 04-02-2023 ambulatory Kale NILL Facility:[facility] Start: 09-22-2022 Evaluation and manag ement of inpatient DR DAYAMI FULLER . Facility:[facility] Start: 09-01-2022 End: 09-02-[address] HANDY KEATING Facility:[facility] Start: 03-23-2022 End: 03-23-2022 ambulatory ALIS HEAD . Facility:[facility] Start: 03-23-2022 Encounter for preprocedural cardiovascular examination [facility] Start: 03-23-2022 Encounter for preprocedural laboratory examination ALIS HEAD . [facility] Start: 03-17-2022 End: 03-18-2022 ambulatory ALIS HEAD . Facility:[facility] Start: 03-17-2022 End: 03-18-2022 Encounter for preprocedural laboratory examination ALIS HEAD . Facility:[facility] Start: 03-04-2022 End: 03-05-[address] HANDY KEATING Facility:[facility] Start: 10-30-2021 End: 10-31-[address] ANTONIO HOPKINS Facility:[facility] Start: 09-26-2019 End: 09-26-2019 Subsequent hospital visit by physician Shelbi Thurman Work Phone: [facility] Comment on above: Cigarette nicotine d ependence with nicotine-induced disorder Start: 09-08-2018 Patient encounter procedure [facility] Start: 04-04-2018 Patient encounter procedure [facility] Start: 03-08-2018 Patient encounter procedure [facility] Start: 03-07-2018 Patient encounter procedure [facility]ICA [facility] Start: 02-22-2018 Patient encounter procedure Ottoniel [facility] Start: 09-14-2017 [facility] Start: 08-14-2017 Emergency department patient visit [facility] Start: 08-13-2017 Patient encounter procedure Ottoniel [facility]uchs [facility] Start: 01-12-2013 Conversion Encounter Ottoniel jackson MD Work Phone: [facility] Legacy Dept Start: 01-12-2013 Legacy Encounter Ottoniel osborn MD Work Phone: [facility] Procedures Date Procedure Procedure Detail Performing Clinician Start: 09-05-2024 Pet imaging skull ba se to mid-thigh Generic External Data Provider Start: 08-11-2024 CT CHEST WO CON Generic External Data Provider Start: 06-05-2024 ALL CBC WITH AUTO DIFF Barbie Aichholz B[employer] MAKE UP ARTIST Work Phone: Start: 01-31-2024 ALL HEMOGLOBIN Generic External Data Provider Start: 06-24-2023 Mammography Generic Pr ovider Start: 05-12-2023 Colonoscopy Generic Pr ovider Start: 09-26-2019 Ldct for lung ca screen Shelbi Thurman Work Phone: Start: 01-12-2013 COLONOSCOPY W/ OR W/ O BIOPSY Ottoniel Fuchs MD Work Phone: Bronchoscopy Kale HANNA section Kale Reynoso Colonoscopy Kale HANNA Extraction of cataract Ramon HANNA Laparoscopy Kale NILL Ligation of fallopian tube Cammy delgadillo NILL Thyroidectomy Kale NILL Plan of Treatment Date Care Activity Detail Author Start: 05-12-2033 Screening for malign ant neoplasm of colon [facility] Healthcare Start: 12-24-2025 DTaP/Tdap/Td vaccine (2 - Td) DTaP/Tdap/Td vaccine (2 - Td) [place] Start: 06-05-2025 Urine screening for protein Diabetes: Urine Protein Screening [facility] Start: 04-03-2025 End: 04-03-2025 Patient encounter procedure 04/03/2025 1:00 PM EST Office Visit [facility] [address] [place] [address] Antonio Hopkins MD [address] [place] [id number] [facility] Start: 03-28-2025 Medicare Annual Well ness (AWV) Medicare Annual Wellness (AWV) [facility] Start: 12-20-2024 End: 12-20-2024 Patient encounter procedure 12/20/2024 11:20 AM EDT Office Visit [facility] [address] [facility] [address] [place] [address] Hector Arellano MD [address] [facility] [address] [place], [place] [id number] [facility] Start: 12-03-2024 Hemoglobin A1c measurement Diabetes: Hemoglobin A1C [facility] Start: 09-28-2024 End: 09-28-2025 Hemoglobin A1c/Hemoglobin.total in Blood Hemoglobin A1c Lab Routine Type 2 diabetes mellitus without complication, without long-term current use of insulin Expected: 09/28/2024 (Approximate), Expires: 09/28/2025 [facility] Work Phone: Comment on above: Expected: 09/28/2024 (Approximate), Expires: 09/28/2025 Start: 09-28-2024 End: 09-28-2024 Patient encounter procedure [facility] Comment on above: Arrived Start: 09-26-2024 End: 09-26-2024 Patient encounter procedure 09/26/2024 1:00 PM EDT Office Visit [facility] [address] [place] [address] Antonio Hopkins MD [address] [place] [address] [facility] Start: 09-19-2024 End: 09-19-2024 Patient encounter procedure 09/19/2024 9:20 AM EDT Office Visit [facility] [address] [facility] [address] [place] [address] Hector Arellano MD [address] [facility] [address] [place] [address] Arrived [facility] Comment on above: Arrived Start: 09-02-2024 Hemoglobin A1c measurement Diabetes: Hemoglobin A1C [facility] Start: 06-24-2024 End: 04-27-2025 DXA Skeletal system Views for bone density DEXA bone density Imaging Routine Osteopenia, unspecified location Menopause Expected: 06/24/2024 (Approximate), Expires: 04/27/2025 [facility] Comment on above: Expected: 06/24/2024 (Approximate), Expires: 04/27/2025 Start: 06-24-2024 End: 06-25-2025 MG Breast - bilateral Screening Bilateral screening mammogram Imaging Routine Encounter for screening mammogram for malignant neoplasm of breast Expected: 06/24/2024 (Approximate), Expires: 06/25/2025 [facility] Work Phone: Comment on above: Expected: 06/24/2024 (Approximate), Expires: 06/25/2025 Start: 06-23-2024 Screening for malign ant neoplasm of breast Mammogram [facility] Start: 04-27-2024 End: 04-27-2025 25-hydroxyvitamin D3 [Mass/volume] in Serum or Plasma Vitamin D 25 hydroxy Lab Routine Osteopenia, unspecified location Expected: 04/27/2024 (Approximate), Expires: 04/27/2025 [facility] Comment on above: Expected: 04/27/2024 (Approximate), Expires: 04/27/2025 Start: 04-27-2024 End: 04-27-2025 CBC W Auto Differential panel - Blood CBC and differential Lab Routine Centrilobular emphysema (CMS/HCC) Expected: 04/27/2024 (Approximate), Expires: 04/27/2025 [facility] Comment on above: Expected: 04/27/2024 (Approximate), Expires: 04/27/2025 Start: 04-27-2024 End: 04-27-2025 Comprehensive metabolic 2000 panel - Serum or Plasma Comprehensive metabolic panel Lab Routine Centrilobular emphysema (CMS/HCC) HTN (hypertension), benign (CMS/HCC) Prediabetes Osteopenia, unspecified location Expected: 04/27/2024 (Approximate), Expires: 04/27/2025 [facility] Comment on above: Expected: 04/27/2024 (Approximate), Expires: 04/27/2025 Start: 04-27-2024 End: 04-27-2025 Hemoglobin A1c/Hemoglobin.total in Blood Hemoglobin A1c Lab Routine Prediabetes Expected: 04/27/2024 (Approximate), Expires: 04/27/2025 [facility] Comment on above: Expected: 04/27/2024 (Approximate), Expires: 04/27/2025 Start: 04-27-2024 End: 04-27-2025 Lipid 1996 panel - Serum or Plasma Lipid panel Lab Routine Prediabetes Expected: 04/27/2024 (Approximate), Expires: 04/27/2025 [facility] Comment on above: Expected: 04/27/2024 (Approximate), Expires: 04/27/2025 Start: 04-27-2024 End: 04-27-2025 Microalbumin/Creatinine panel in random Urine Microalbumin / creatinine, urine ratio Lab Routine HTN (hypertension), benign (CMS/HCC) Prediabetes Expected: 04/27/2024 (Approximate), Expires: 04/27/2025 [facility] Comment on above: Expected: 04/27/2024 (Approximate), Expires: 04/27/2025 Start: 04-27-2024 End: 04-27-2025 Urinalysis complete panel - Urine Urinalysis with reflex microscopic (clean catch) Lab Routine HTN (hypertension), benign (CMS/HCC) Prediabetes Expected: 04/27/2024 (Approximate), Expires: 04/27/2025 [facility] Comment on above: Expected: 04/27/2024 (Approximate), Expires: 04/27/2025 Start: 03-28-2024 End: 03-28-2024 Patient encounter procedure [facility] Comment on above: Arrived Start: 12-30-2023 Lipid panel Lipid screen [place], [place] Start: 12-26-2023 Influenza vaccination Influenza Vacc ine (#1) [facility] Start: 02-11-2023 Screening for malign ant neoplasm of cervix Cervical cancer screen [place], [place] Start: 01-12-2023 Screening for malign ant neoplasm of colon Colon cancer screen colonoscopy [place] Start: 02-23-2020 Screening for malign ant neoplasm of breast Breast cancer screen [place] Start: 02-13-2020 Pneumococcal 65+ yea rs Vaccine (1 of 1 - PPSV23) Pneumococcal 65+ years Vaccine (1 of 1 - PPSV23) [place] Start: 02-08-2020 End: 02-08-2020 Office Visit 02/08/2020 Office Visit Family Medicine Ottoniel Fuchs MD [address] [facility] [place] [address] [facility] Start: 12-30-2019 Creatinine measurement Creatinine mo nitoring [place] Start: 12-30-2019 HbA1c (Bld) [Mass fraction] A1C test (Diabetic or Prediabetic) [place] Start: 12-30-2019 Potassium monitoring Potassium monit oring [place] Start: 12-30-2019 TSH Qn TSH testing [place], [place] Start: 09-09-2019 Screening for malign ant neoplasm of lung Low dose CT lung screening [place] Start: 08-09-2019 Annual Wellness Visi t (AWV) Annual Wellness Visit (AWV) [place] Start: 02-11-2019 Medicare Annual Well ness (AWV) Medicare Annual Wellness (AWV) [facility] Healthcare Start: 1965 Glaucoma screening Diabetes: R etinopathy Screening [facility] Start: 1955 Screening for malign ant neoplasm of colon [facility] Immunizations Immunization Date Immunization Notes Care Provider Skyla traore 03-01-2024 influenza, high dose seasonal, preservative-free Barbie Dhaliwal BODY MAKE UP ARTIST Work Phone: [facility] 03-01-2024 Fluzone High-Dose 0. 5 ML suspension prefilled syringe Barbie Dhaliwal BODY MAKE UP ARTIST Work Phone: [facility] 03-08-2023 influenza virus vacc ine, unspecified formulation Kale HANNA [facility] 03-08-2023 Influenza, High-dose Seasonal, Quadrivalent, Preservative Free Barbie Theaholz BODY MAKE UP ARTIST Work Phone: [facility] 02-26-2023 RSV, recombinant, protein subunit RSVpreF, adjuvant reconstitu, 120mcg/0.5mL, PF (Arexvy) Barbie Dhaliwal BODY MAKE UP ARTIST Work Phone: [facility] 11-02-2022 Pneumococcal Conjuga te PCV 20 Barbie Dhaliwal BODY MAKE UP ARTIST Work Phone: [facility] 02-04-2021 SARS-CoV-2 (COVID-19 ) Ad26 vaccine, recombinant Kale HANNA [facility] Comment on above: Result Comment: 2022: [id number] 03-30-2019 Seasonal, quadrivale nt, recombinant, injectable influenza vaccine, preservative free Shelbi [place] 12-29-2018 zoster vaccine recombinant [facility] [place] 02-11-2018 influenza virus vacc ine, unspecified formulation [facility] [place] 02-11-2018 influenza, injectabl e, quadrivalent, contains preservative [facility] [place] 02-11-2018 zoster vaccine recombinant [facility] [place] 12-25-2015 tetanus toxoid, redu florentino diphtheria toxoid, and acellular pertussis vaccine, adsorbed [facility] [place] 02-12-2015 pneumococcal polysaccharide vaccine, 23 valent [facility] [place] 02-12-2015 zoster vaccine, live [facility] [place] 01-24-2015 pneumococcal conjuga te vaccine, 13 valent Barbie Dhaliwal NP Work Phone: [facility] Healthcare Payers Date Payer Category Payer Self-pay 2023 Medicare ANTHEM MEDICARE ADVANTAGE ANTHEM MEDICARE ADVANTAGE [id number] 2023-Present [address] [place] [address] [id number] 2023 Medicare (Managed Care) [facility] ADVANTAGE [id number] 2023 Unknown [id number] 2019 Medicare MEDICARE MEDICAR E PART A AND B xxxxxxxxxxx 2019-Present [phone] [address] [address] [place] [address] xxxxxxxxxxx [id number] 2019 Private Health Insurance [employer] MEDICARE SUPP xxxxxxxxxx 2019-Present [phone] [address] [place] [address] xxxxxxxxxx [id number] 1960 Unknown [id number] 2.16.840.1.965584.3.579.2 .1960 Unknown [id number] 2.16.840.1.062482.3.579.2 .668 1959 Medicare [id number] 1959 Private Health Insurance CLI [id number] 1954 Unknown [id number] 2.16.840.1.171506.3.579.2 1954 Unknown [id number] 2.16.840.1.109037.3.579.2 1954 Unknown [id number] 2.16.840.1.550484.3.579.2 1954 Unknown [id number] 2.16.840.1.803154.3.579.2 .1954 Unknown [id number] 2.16.840.1.258837.3.579.2 .1954 Unknown [id number] 2.16.840.1.727777.3.579.2 .1954 Unknown [id number] 2.16.840.1.976777.3.579.2 .1954 Unknown [id number] 2.16.840.1.670423.3.579.2 .593 1954 Unknown [id number] 2.16.840.1.933983.3.579.2 .593 1954 Unknown [id number] 2.16.840.1.015493.3.579.2 .593 1954 Unknown [id number] 2.16.840.1.426858.3.579.2 .593 1954 Unknown [id number] 2.16.840.1.635094.3.579.2 .593 1954 Unknown [id number] 2.16.840.1.692729.3.579.2 .593 1954 Unknown [id number] 2.16.840.1.446884.3.579.2 .727 1954 Unknown [id number] 2.16.840.1.642067.3.579.2 .727 1954 Unknown [id number] 2.16.840.1.428230.3.579.2 .727 1954 Unknown [id number] 2.16.840.1.201732.3.579.2 .1259 1954 Unknown [id number] 2.16.840.1.499482.3.579.2 .1259 1954 Unknown [id number] 2.16.840.1.504639.3.579.2 .1259 1954 Unknown [id number] 2.16.840.1.387291.3.579.2 .1259 Unknown Social History Date Type Detail Facility Start: 09-24-1972 End: 09-19-2024 Tobacco smoking status NHIS Current every day smoker [place] Start: 08-02-1971 End: 09-24-2022 History of tobacco use Cigarette Smoker [place] Start: 08-09-2019 End: 09-26-2023 Cigarettes smoked current (pack per day) - Reported [facility] Start: 08-09-2019 End: 09-28-2024 Alcohol intake Current drinker of alcohol (finding) [place] Start: 12-29-2018 History SDOH Alcohol Frequency 4 [place] Start: 12-29-2018 History SDOH Alcohol Std Drinks 1 [place] Start: 12-29-2018 History SDOH Social Connections Get Together 2 [place] Start: 12-29-2018 History SDOH Social Connections Living 3 [place] Start: 12-29-2018 History SDOH Physical Activity DPW 0 [place] Start: 12-29-2018 History SDOH Financial 5 [place] Start: 08-16-2017 Tobacco Comment Less than a pack a day [place] Start: 08-16-2017 Alcohol Comment Occasionally [place] Start: 1955 Sex Assigned At Not on file [place] Tobacco smoking stat [facility] Tobacco smoking consumption unknown [facility] Start: 09-26-2023 End: 03-28-2024 Gender identity Not on file [facility] Start: 04-21-2023 End: 09-27-2023 Tobacco smoking status Ex-smoker (finding) [facility] Tobacco smoking status Never [facility] Start: 1955 Sex Assigned At Female [facility] Start: 09-24-1972 End: 09-24-2022 History of tobacco use Current smoker [facility] Start: 09-27-2023 End: 09-19-2024 Tobacco use and exposure Smokeless tobacco non-user [facility] Do you belong to any clubs or organizations such as moravian groups, unions, fraternal or athletic groups, or [...] Not at all [facility] (I/We) worried miguel er (my/our) food would run out before [...] Barr leandro Nam Clinical Notes 04-21-2023 to 09-28-2024 Antonio Hopkins MD - 09/28/2024 2:33 PM EDLaura Hopkins MD - 09/28/2024 2:33 PM Pino Hopkins MD - 09/28/2024 2:33 PM Pino Hopkins MD - 09/28/2024 2:32 PM EDTPatient Instructions Note Date & Type Note Facility 09-28-2024 History of Present illness Narrative Associated Problem(s): Type 2 diabetes mellitus without complication, without long-term current use of insulin Due for A1C. Continue metformin. Stick to ADA diet and limit carbs. Associated Problem(s): HTN (hypertension), benign (CMS/HCC) BP controlled and monitor PRN. Associated Problem(s): Centrilobular emphysema (CMS/HCC) Symptoms stable and follow with pulmonology. Associated Problem(s): Bronchiolectasis (CMS/HCC) Symptoms stable and follow with pulmonology. Images from the original note were not included. Subjective Patient ID: Akil Chacon is a 69 y.o. female who presents [...] follow with pulmonology. documented in this encounter [facility] 09-19-2024 History of Present illness Narrative Images from the original note were not included. Subjective Patient ID: Akil Chacon is a 69 y.o. female who presents for Abnormal PET Pt reports she has a scratchy tickle on the left side of her throat for the past 2 years. No tx yet. Had a recent PET scan to evaluate a new lung nodule. Chest negative but some left pharyngeal uptake noted. No H/O T&A. Pt take low dose ASA for prophylaxis. No ear pain. PET scan reviewed and there is a small area of limited uptake in the region of the left tonsil. No neck uptake noted. Long h/o left tonsil stones Review of Systems HENT: Positive for congestion and sore throat. Respiratory: Positive for cough and shortness of breath. All other systems reviewed and are negative. Family History Problem Relation Name Age of Onset Cancer Mother Becka Deuschle Diabetes Mother Becka Deuschle Heart disease Mother Becka Deuschle Emphysema Mother Becka Deuschle Cervical cancer Mother Becka Deuschle Coronary artery disease Mother Becka Deuschle Stroke Mother Becka Deuschle Arthritis Mother Becka Deuschle Hypertension Father Patricio Deuschle Heart disease Father Patricio Deuschle Heart failure Father Patricio Deuschle Cancer Brother Huber Deuschle Lung cancer Brother Huber Deuschle Diabetes Maternal Grandmother Jazz Tima Asthma Son Pablito Henley Drug abuse Daughter Alysha Castillo Active Ambulatory Problems Diagnosis Date Noted HTN (hypertension), benign (CMS/HCC) 12/25/2015 Lung nodule 09/03/2017 Osteopenia 07/03/2015 Postoperative hypothyroidism (CMS/HCC) 12/25/2015 Encounter for long-term (current) use of medications 04/01/2023 Colon cancer screening 04/01/2023 Centrilobular emphysema (CMS/HCC) 09/27/2023 Seasonal allergic rhinitis due to pollen 09/27/2023 Medicare annual wellness visit, subsequent 03/28/2024 Encounter for screening mammogram for malignant neoplasm of breast 04/27/2024 Menopause 04/27/2024 COPD with acute exacerbation (CMS/HCC) 04/27/2024 Tobacco user 04/27/2024 Type 2 diabetes mellitus without complication, without long-term current use of insulin 06/12/2024 Bronchiolectasis ([facility]/HCC) 09/13/2024 Chronic sinusitis 09/13/2024 Critical illness myopathy 09/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 terminologist current use of inhaled steroid 09/13/2024 Nicotine dependence, cigarettes, with unspecified nicotine-induced disorders 09/13/2024 Resolved Ambulatory Problems Diagnosis Date Noted Bronchiectasis without complication ([facility]) 12/25/2016 Prediabetes 12/29/2018 Past Medical History: Diagnosis Date Acute sinusitis, recurrence not specified, unspecified location Allergic Benign essential hypertension ([facility]) Chronic respiratory failure with hypoxia ([facility]) Chronic sinusitis, unspecified location Cigarette nicotine dependence with nicotine-induced disorder Fracture of nasal bones 1961 GERD (gastroesophageal reflux disease) Hypothyroidism ([facility]) Multiple pulmonary nodules Overweight Steroid-induced hyperglycemia Substance abuse Past Surgical History: Procedure Laterality Date BREAST SURGERY BRONCHOSCOPY 04/04/2018 BRONCHOSCOPY 03/23/2022 BRONCHOSCOPY 2022 CATARACT EXTRACTION Bilateral SECTION, LOW TRANSVERSE SECTION, LOW TRANSVERSE COSMETIC SURGERY 2005 THYROIDECTOMY TUBAL LIGATION No Known Allergies Current Outpatient Medications on File Prior to Visit Medication Sig Dispense Refill albuterol HFA 90 mcg/act inhaler Inhale 2 puffs every 4 (four) hours if needed for wheezing 18 g 3 amLODIPine (Norvasc) 5 MG tablet Take 1 tablet (5 mg) by mouth Daily 30 tablet 11 aspirin 81 MG EC tablet Take 81 mg by mouth Daily fluticasone (Flonase) 50 MCG/ACT nasal spray Administer 2 sprays into each nostril Daily Shake gently. Before first use, prime pump. After use, clean tip and replace cap. Ynttspjcfsq-Frytqxvwa-Kipkqn (Trelegy Ellipta) 100-62.5-25 MCG/ACT aerosol powder Inhale levothyroxine (Synthroid, Levoxyl) 112 MCG tablet TAKE 1 TABLET BY MOUTH IN THE MORNING BEFORE MEALS 30 tablet 11 losartan (Cozaar) 50 MG tablet TAKE 1 TABLET BY MOUTH DAILY 30 tablet 11 metFORMIN (Glucophage) 500 MG tablet TAKE 1 TABLET BY MOUTH IN THE MORNING WITH MEALS 30 tablet 1 Multiple Vitamin (MULTI-DAY PO) Take by mouth Oyster Shell Calcium 500 MG tablet every 12 (twelve) hours sodium chloride 0.9 % nebulizer solution Take 3 mL by nebulization if needed for wheezing [DISCONTINUED] Fluzone High-Dose 0.5 ML suspension prefilled syringe No current facility-administered medications on file prior to visit. Objective Last Recorded Vitals Vitals: 09/19/24 0918 BP: 121/66 Pulse: 65 ENT Physical Exam Constitutional Appearance: patient appears well-developed, well-nourished and well-groomed, Head and Face Appearance: head appears normal and face appears atraumatic; Ear Ear Canals: right ear canal normal; left ear canal normal; Tympanic Membranes: right tympanic membrane normal; left tympanic membrane normal; Nose External Nose: nares patent bilaterally; external nose normal; Internal Nose: septum normal; Oral Cavity/Oropharynx Tongue: normal; Oral mucosa: normal; Hard palate: normal; Soft palate: normal; Tonsils: normal; Neck Neck: neck normal; neck palpation normal; Thyroid: thyroid normal; Respiratory Inspection: breathing unlabored; normal breathing rate; Auscultation: breath sounds are clear; Cardiovascular Inspection: extremities are warm and well perfused; no peripheral edema present; Auscultation: regular rate and rhythm; Patient ID: Akil Chacon is a 69 y.o. female. Procedures A diagnostic flexible fiberoptic laryngoscopy was performed. The flexible fiberoptic laryngoscope was placed into the nose and advanced to the level of the tip of the epiglottis. Examination of the larynx including both surfaces of the epiglottis false and true vocal folds, arytenoids and surrounding mucosal surfaces show no evidence of lesion, ulceration or mass. Normal bilateral true vocal fold motion is present. Bilateral piriform sinuses and base of tongue appear without lesion Assessment/Plan Diagnoses and all orders for this visit: Abnormal positron emission tomography (PET) scan Chronic tonsillitis Pt has a long h/o left throat irritation and tonsil stones. H&N exam shows no mass or ulcer suggesting a carcinoma. Tx tonsil stones with 1/2 strength peroxide gargles. I will recheck every 3 mo to evaluate for changes Answers submitted by the patient for this visit: Sore Throat Questionnaire (Submitted on 09/14/2024) Chief Complaint: Sore throat Chronicity: chronic Onset: more than 1 year ago Progression since onset: unchanged Pain worse on: left Fever: no fever Fever duration: less than 1 day pain severity now: no pain Pain - numeric: 1/10 documented in this encounter [facility] 09-06-2024 Note [facility] Cardiology Clinic Note Chief Complaint: New patient here to establish care. Patient referred to cardiology by Dr. Wayne due to spots by by in one of her arteries. Patient state she gets out of breath with exertion. HPI: Akil Chacon is a 69 y.o. female Here for shortness of breath and abnormal CT scan of the chest The patient has had COPD for many years; she sees Dr. Parsons here in the hospital for at least the past 5 years. On a recent CAT scan of the chest, a small pericardial effusion was seen. Apparently there was calcification seen although the report itself shows no coronary calcification. I do not have the images. The patient has exertional shortness of breath which has been worsening over the past several months. She denies chest pain. She denies orthopnea or paroxysmal terminal dyspnea. She has no lower extremity edema. The only cardiac testing she had done was about 20 years ago; at that time, she had chest pain, her rug layer did a number of tests and told her heart was fine PMHx: COPD exacerbation, hypothyroidism acquired, essential hypertension FH: No premature coronary artery disease in any first-degree relatives SOCIAL Hs: Unfortunately continues to smoke, drinks socially. Cardiology ROS: GENERAL: Denies fever, chills, night sweats, weight loss. HEENT: Denies changes in vision, photophobia, changes in hearing, epistaxis, oral bleeding. CARDIOVASCULAR: Denies chest pain, exertional dyspnea, orthopnea/PND, lower extremity edema, palpitations, lightheadedness/dizziness. RESPIRATORY: Denies SOB, coughing, wheezing GI: Denies abdominal pain, nausea/vomiting, heartburn, melena/hematochezia. RENAL: Denies dysuria, hematuria, flank pain. MSK: Denies muscle weakness/pain, arthralgias/joint pain. NEUROLOGIC: Denies LOC, weakness, numbness, headaches. SKIN: Denies abnormal rashes or bleeding. PSYCH: Denies significant anxiety, depression, sleep disturbances. Past Medical History She has no past medical history on file. Surgical History She has no past surgical history on file. Social History She has no history on file for tobacco use, alcohol use, and drug use. Family History No family history on file. Allergies Patient has no allergy information on record. Medications No current outpatient medications on file. Last Recorded Vitals BP 95/56 (BP Location: Right arm, Patient Position: Sitting) Pulse 72 Ht 1.626 m (5' 4 ) Wt 76.7 kg (169 lb) SpO2 93% BMI 29.01 kg/m??? Physical Examination: GENERAL: alert and oriented x3, well developed, in no acute distress. HEAD: atraumatic, normocephalic. EYES: BURAK, EOMI. NECK: trachea midline, no JVD present, no carotid bruits present. CARDIAC: S1, S2 present. RRR. No murmur, rubs, or gallops. RESPIRATORY: CTAB, no increased effort of breathing, no rales, rhonchi, or wheezing. ABDOMEN: soft, nontender, nondistended. EXTREMITIES: no lower extremity edema, peripheral pulses are 2+ bilaterally. No rash/skin discoloration present. NEURO: strength/sensation equal and symmetric in bilateral upper and lower extremities. PSYCH: appropriate mood, affect, and judgement. INVESTIGATIONS: 12 lead EKG 09/06/2024 Normal sinus rhythm, normal EKG Patient Name: AKIL CHACON MRN: [facility]:[id number] date: 1955 Sex: F Assigned Patient Location: CT Current Patient Location: CT Accession/Order Number: [id number] Exam Date: 08/11/2024 14:51 Report Date: 08/11/2024 [...] lobes. ESOPHAGUS: Unremarkable. HEART: Within normal limits Imaging [id number] [facility] 2 Patient name: AKIL CHACON PERICARDIAL EFFUSION: Small CORONARY ARTERY CALCIFICATION: None [...] lung base. Not significantly change from recent prio (more content not included)... [facility] 04-27-2024 History of Present illness Narrative Associated Problem(s): Tobacco user The patient has been advised of the risks of continued smoking: stroke, [place], all forms of cancer, lung disease, and [...] trigger Associated Problem(s): COPD with acute exacerbation ([facility]) Recent hospitalization about 2 weeks ago Is feeling much better Continue inhalers, cont with dr head Goal of smoking cessation Images from the original note were not included. Akil Chacon is a 68 y.o. female presents with chief complaint of No chief complaint on file. HPI: Here for a hospital fu for exac COPD Reviewed H notes Feeling better, no fever, chills, and [...] 50 MCG/ACT nasal spray 2 sprays, Daily Pbpiwdnpedn-Jmqliundb-Cuojsu (Trelegy Ellipta) 100-62.5-25 MCG/ACT aerosol powder Inhale [...] of the risks of continued smoking: stroke, [place], all forms of cancer, lung disease, and [...] Feeling much better documented in this encounter [facility] 04-27-2024 Instructions Barbie Dhaliwal NP - 04/27/2024 11:00 AM EST Mammogram and bone density : late May early June, The [facility] should call, , ext [phone] Labs mid 06/20 documented in this encounter [facility] 03-28-2024 History of Present illness Narrative Associated [...] were not included. Subjective Patient ID: Akil Chaocn is a 68 y.o. female who presents [...] daily Aspirin therapy. documented in this encounter [facility] 04-21-2023 Note Chief Complaint consultation for screening [...] 1 puff(s), Inhalation, Daily Flonase 0.05 mg/inh [place], 100 mcg, Nasal, Daily levothyroxine 112 mcg [...] of lung: Brother. (more content not included)... [facility] Comment on above: Result Comment: Elec tronically Signed By: ISIS ALCANTAR, Kale Gonzalez\.[place]\Date and Time Signed: 04/21/23 14:46 EST Evaluation + Plan note No data available for this section General Surgery [place] Evaluation note No assessment inform ation available [place] Work Phone: Evaluation note Diagnosis HTN (hypertension), [...] visit, subsequent- Primary [facility] Diagnosis HTN (hypertension), benign (CMS/HCC)- [...] Tobacco use disorder documented in this encounter [facility]* Diagnosis HTN (hypertension), benign (CMS/HCC)- [...] insulin (CMS/HCC)- Primary documented in this encounter [facility]* Diagnosis HTN (hypertension), benign (CMS/HCC)- [...] climacteric states Tobacco user Tobacco use disorder Abnormal positron emission tomography (PET) scan- Primary Chronic tonsillitis documented in this encounter [facility] Healthcare[facility]* Diagnosis HTN (hypertension), benign (CMS/HCC)- [...] without complication, without long-term current use of insulin- Primary HTN (hypertension), benign (CMS/HCC) Essential hypertension, benign Bronchiolectasis (CMS/HCC) Bronchiectasis without acute exacerbation Centrilobular emphysema (CMS/HCC) documented in this encounter [facility] Discharge instructions No data available for this section General Surgery [employer] Progress note No data available for this section General Surgery [place] Summary Purpose Family History No Family History Records FoundNo Family History Records FoundNo Family History Records FoundNo Family History Records FoundNo Family History Records Found No data available for this section No Family History Records FoundNo Family History Records FoundNo Family History Records FoundNo Family History Records Found Advance Directives Documents on File Type Date Recorded Patient Nursing Attendant Expl anation Advance Directives and Living Will Power of Destination Coordinator Reason for Referral Status Reason Specialty Diagnoses / Procedures Referre d By Contact Referred To Contact Open Radiology Diagnoses Cigarette nicotine dependence with nicotine-induced disorder Procedures CT LUNG SCREENING (ANNUAL) Eliseo Thurmanmy, POLITICAL SCIENCE PROFESSOR - POOLING OPERATOR [address] [place] [address] Assessments Diagnosis Cigarette nicotine dependence with nicotine-induced disorder Unspecified drug-induced mental disorder Additional Source Comments INFORMATION SOURCE (unrecogn ized section and content) DATE CREATED AUTHOR 10/20/[address] [facility] DATE CREATED AUTHOR AUTHOR'S ORGANIZ ATION 04/04/2018 [facility] DATE CREATED AUTHOR AUTHOR'S ORGANIZ ATION 04/09/2018 [facility] DATE CREATED AUTHOR AUTHOR'S ORGANIZ ATION 09/26/2019 [facility] DATE CREATED AUTHOR AUTHOR'S ORGANIZ ATION 10/02/2022 [facility] DATE CREATED AUTHOR AUTHOR'S ORGANIZ ATION 06/15/2023 [facility] DATE CREATED AUTHOR AUTHOR'S ORGANIZ ATION 06/15/2023 [facility] DATE CREATED AUTHOR AUTHOR'S ORGANIZ ATION 09/07/2024 [facility] DATE CREATED AUTHOR AUTHOR'S ORGANIZ ATION 09/29/2024 [facility] dical Specialists EPIC Care Teams (unrecognized sec tion and content) Ice Carver Relationship Specialty Start Date End Date Ottoniel Fuchs MD [address] [place] [address] [address] [place] [address] PCP - General 12/21/13 Team Status: Inactive Member Role Status Dates Kale Hanna MD FACS Attending Provider Active Start: May 12, 2023 End: May 12, 2023 Ice Carver Relationship Specialty Start Date End Date Antonio Hopkins MD [address] [place] [address] PCP - General Family Medicine 10/21/22 Antonio Hopkins MD [address] [place] [address] PCP - Jaycee DAVIS 11/25/23 Ice Carver Relationship Specialty Start Date End Date Antonio Hopkins MD [address] [place] [address] PCP - General Family Medicine 10/21/22 Antonio Hopkins MD [address] [place] [address] PCP - Jaycee DAVIS 11/25/23 Ice Carver Relationship Specialty Start Date End Date Antonio Hopkins MD [address] [place] [address] PCP - General Family Medicine 10/21/22 Antonio Hopkins MD [address] [place] [address] PCP Bernard Champion MA 11/25/23 Ice Carver Relationship Specialty Start Date End Date Antonio Hopkins MD [address] [place] [address] PCP - General Family Medicine 10/21/22 Antonio Hopkins MD [address] [place] [address] PCP - Jaycee DAVIS 11/25/23 Delmar Bowen MA [facility] 04/18/24 Ice Carver Relationship Specialty Start Date End Date Antonio Hopkins MD [address] [place] [phone] PCP - General Family Medicine 10/21/22 Delmar Bowen [facility] 04/18/24 Ice Carver Relationship Specialty Start Date End Date Antonio Hopkins MD [address] [place] [address] PCP - General Family Medicine 10/21/22 Delmar Bowen MA [facility] 04/18/24 Ice Carver Relationship Specialty Start Date End Date Antonio Hopkins MD [address] [place] [phone] PCP - General Family Medicine 10/21/22 Antonio Hopkins MD [address] [place] [address] PCP - [place] [facility] 11/25/23 Delmar Bowen MA [facility] 04/18/24 Ice Carver Relationship Specialty Start Date End Date Antonio Hopkins MD [address] [place] [address] PCP - General Family Medicine 10/21/22 Delmar Bowen [facility] 04/18/24 Ice Carver Relationship Specialty Start Date End Date Antonio Hopkins MD [address] [place] [phone] PCP - General Family Medicine 10/21/22 Delmar Bowen MA [facility] 04/18/24 Ice Carver Relationship Specialty Start Date End Date Antonio Hopkins MD [address] [place] [address] PCP - General Family Medicine 10/21/22 Antonio Hopkins MD [address] [place] [phone] PCP - Jaycee DAVIS 11/25/23 Delmar Bowen MA [facility] 04/18/24 Ice Carver Relationship Specialty Start Date End Date Antonio Hopkins MD [address] [place] [address] [facility] 10/21/22 Antonio Hopkins MD [address] [place] [address] PCP - Jaycee DAVIS 11/25/23 Delmar Bowen MA [facility] 04/18/24 Goals (unrecognized section and content) Goals may be documented in a n alternate section Reason for Visit (unrecogniz ed section and content) Reason Comments Medicare Annual Wellness Visit Subsequen t Wellness Reason Onset Date Comments Med Refill 06/12/2024 Reason Comments Abnormal PET Reason Comments Follow-up 6m FOR RECORDS PERTAINING TO PATIENTS WHO ARE [...] BE BASED ON THE PRIMARY CLINICAL RECORDS. [facility]. provides no warranty or guarantee of the accuracy or completeness of information in this document.
--- NOTE | 2024-10-06 08:30 | CA_ITS ---
Patient Name: ERICA CHACON MR#: [id number] : 1955 Exam Date: 10/06/2024 Ordering Doctor: DR ELAYNE EL M.D. ECHOCARDIOGRAM REPORT PROCEDURE: CA ECHO DOPPLER COMPLETE INDICATIONS: Pericardial effusion, hypertension, diabetes, smoker, COPD COMPARISON: None. DESCRIPTION: COMPLETE ECHOCARDIOGRAM Real-time transthoracic echocardiography with 2D, M-mode, spectral and color flow Doppler performed. QUALITY: Technical quality was good. LEFT VENTRICLE: Normal chamber size. Mild concentric left ventricular hypertrophy. LV EF: Global left ventricular systolic function is hyperdynamic; visually estimated ejection fraction is 65 to 70%. Calculated left ventricular ejection fraction is 79%. DIASTOLIC: Diastolic function is indeterminate. ATRIAL SEPTUM: Visually appears intact. LEFT ATRIUM: Normal chamber size. RIGHT ATRIUM: Normal chamber size. RIGHT VENTRICLE: Normal chamber size. Normal right ventricular systolic function. TRICUSPID VALVE: Normal mobility and thickness. No stenosis with trivial regurgitation. Doppler studies reveal moderately (45-60) elevated right sided pressures. RVSP 51 mmHg MITRAL VALVE: Normal mobility and thickness. No evidence of mitral valve stenosis. Mild mitral annular calcification. No mitral regurgitation. AORTIC VALVE: Normal trileaflet appearance. No visible sclerosis. Normal leaflet mobility. No evidence of aortic valve stenosis. No aortic regurgitation. AORTIC ROOT: Normal diameter and appearance. PULMONIC VALVE: Normal thickness and mobility. No stenosis. No regurgitation. PERICARDIUM: Small anterior pericardial effusion. IVC: Collapses with inspiration. IVC is normal in size. CONCLUSION: 1. Global left ventricular systolic function is hyperdynamic; visually estimated ejection fraction 65 to 70% 2. Normal right ventricular size and systolic function 3. Mild left ventricle hypertrophy 4. Diastolic function is indeterminate 5. Moderately elevated right-sided pressure; RVSP 51 mmHg 6. No significant valvular abnormalities 7. Small anterior pericardial effusion Adult Echocardiography Procedure Report Left Ventricle LVEDD (3.7 - 5.6 cm): 3.85 cm LVESD (2.2 - 4.0 cm): 2.84 cm LVIVS thickness (0.6 - 1.2 cm): 1.25 cm LVPW thickness (0.5 - 1.0 cm): 1.25 cm e': 0.06 m/s E - e': 10.44 LVOT Max Gradient: 3.30 mm[Hg] LVOT Area (cm2): 0.91 m/s Peak Velocity (LVOT): 0.91 m/s Mean Velocity (LVOT): 0.63 m/s LVOT Diameter 2.25 cm Left Atrium LA Volume Index (2D A2C): 24.56 ml/m2 Left Atrium Systolic Dimension: 4.16 cm Mitral Valve MV E to A Ratio: 0.68 Mitral Valve A-Wave Peak Velocity: 0.88 m/s Mitral Valve E-Wave Peak Velocity: 0.60 m/s Right Ventricle Aorta AO Root Diam: 2.66 cm Aortic Valve AoV Area (Peak Noah): 2.89 cm2, 2.89 cm2 AoV Area (VTI): 2.75 cm2, 2.75 cm2 Peak Velocity(Antegrade Flow): 1.25 m/s Peak Gradient(Antegrade Flow): 6.23 mm[Hg] Mean Velocity(Antegrade Flow): 0.90 m/s Mean Gradient(Antegrade Flow): 3.60 mm[Hg] Velocity Time Integral: 29.83 cm Tricuspid Valve Peak Velocity (Regurgitant Flow): 3.48 m/s Pulmonic Valve Peak Velocity: 1.07 m/s Peak Gradient: 4.57 mm[Hg] Right Atrium Right Atrium Systolic Pressure: 35.53 ml, 35.53 ml Dictated by: Elayne El M.D. on 10/06/2024 at 14:42 Approved by: Elayne El M.D. on 10/06/2024 at 14:46
--- NOTE | 2024-10-06 09:37 | PC.NURSE ---
Nursing Note Cardiac Stress Test Reviewed: Medication, allergies and patient history reviewed. Stress Test: [x ] Patient tolerated stress test well. [ ] Patient unable to tolerate walking on treadmill. Switched to Lexiscan stress test. [x ] No chest pain noted per patient [ ] Chest pain that resolved prior to leaving stress lab. [x ] No dyspnea noted. [ ] Dyspnea that resolved prior to leaving stress lab. [x ] Patient left stress lab asymptomatic and hemodynamically stable. [ ] Patient taken to the Emergency Room due to non-resolving symptoms following stress test. [ ] Patient achieved target heart rate. [ ] Patient unable to achieve target heart rate. [ ] Aminophylline administered as reversal agent to Lexiscan (Regadenoson). [ ] Nitro administered. Nursing Comments:Pt had Lexiscan test done. Only symptom was general heaviness that resolved within 3 min of Zulay being given. No CP noted. Pt ambulated to cafeteria for breakfast prior to second set of images.
[2024-10-06] MEDS: REGADENOSON 0.4 MG/5 ML SYRINGE IV (09:46)
--- NOTE | 2024-10-09 12:48 | PM.STRESS ---
Stress Test Stress Test Allergies Allergy/AdvReac Type Severity Reaction Status Date / Time No Known Drug Allergies Allergy Verified 05/12/23 08:34 Requesting physician: Jaime Gonzalez Procedure: This was a Lexiscan stress test with myocardial perfusion imaging performed at the [facility] on 10/06/2024. Intravenous line was secured. The patient was attached to electrocardiographic monitoring. Baseline vital signs and ECG were obtained. Lexiscan 0.4 mg was administered intravenously followed by administration of Cardiolite. The patient then went on to obtain myocardial perfusion imaging. It was 62 bpm and peak heart rate was 81 bpm. Resting blood pressure was 128/70 and peak blood pressure was 140/84. General Information: Reason for Stress Test: Shortness of breath. Cardiac History and Risk Factors: Hypertension, diabetes. Resting 12 - Lead Electrocardiogram: Normal sinus rhythm, possible old anterior infarct. Stress Test: Protocol: Pharmacologic stress test with Lexiscan. Exercise Capacity: Not assessed. Blood Pressure Response: Resting elevated blood pressure. Rhythm: Sinus with no arrhythmia. ST - Response: No ischemic ST changes seen. Patient Response: Chest heaviness, no chest pain or shortness of breath. Interpretation: 1. No evidence of ischemic ST changes seen following infusion of Lexiscan. 2. Myocardial perfusion images will be reported separately.
== END 2024-10-06 08:00 | disposition home or self-care (01) ==
LOC: NM 08:00
PROVIDERS: PCP Family Medicine; Visit Provider Internal Medicine Interventional Cardiology
DX: R06.09 Other forms of dyspnea (principal); I31.39 Other pericardial effusion (noninflammatory)
CPT/HCPCS: 78452; 93017; 93306; A9500; J2785

== ENCOUNTER 2024-10-10 14:25 | Outpatient (OUT) | payer MEDICARE, SELFPAY ==
--- OUTSIDE RECORDS SUMMARY | 2024-09-28 14:00 | XMS_ITS | Encounter Summary ---
Author Organization [facility] Address [address] [facility] [place] [address] Care Team Providers Care Track Helper Name Role Phone Antonio Riggins MD Primary Care Provider [phone] Antonio Riggins MD Unavailable Delmar Bowen MA Unavailable [phone] Reason for Visit * Reason Comments Follow-up 6m Encounter Details Date Type Department Care Team (Late st Contact Info) Description 09/28/2024 2:00 PM EDT [facility] [address] [place] [address] Antonio Riggins MD [address] [place] [address] Type 2 diabetes mellitus without complication, without long-term current use of insulin (HCC) (Primary Dx); HTN (hypertension), benign ; Bronchiolectasis (HCC); Centrilobular emphysema (HCC) Social History Tobacco Use Types Packs/Day Years Used Date Smoking Tobacco: Every Day Cigarettes 1 50 Started: 09/1972; Last attempted to quit: 09/2022 Smokeless Tobacco: Never Alcohol Use Standard Drinks/Week Comments Yes 2 (1 standard drink = 0.6 oz pur e alcohol) Social Connection and Isolation Panel [NHANES] A nswer Date Recorded In a typical week, how many times do you talk on the phone with family, friends, or neighbors? Three times a week 09/26/2023 How often do you get togethe r with friends or relatives? Twice a week 09/26/2023 How often do you attend chur ch or gnosticism services? Never 09/26/2023 Do you belong to any clubs o r organizations such as denominational groups, unions, fraternal or athletic groups, or school groups? No 09/26/2023 How often do you attend meet ings of the clubs or organizations you belong to? Never 09/26/2023 Are you , , di vorced, , never , or living with a partner? 09/26/2023 AUDIT-C Answer Date Recorded Q1: How often do you have a drink containing alc ohol? 2-4 times a month 09/26/2023 Q2: How many drinks containi ng alcohol do you have on a typical day when you are drinking? 1 or 2 09/26/2023 Q3: How often do you have si x or more drinks on one occasion? Never 09/26/2023 PHQ-2 Answer Date Recorded Patient Health Questionnaire-2 Score 0 03/28/2024 [facility] Occupational Stress Questionnaire Answer Date Recorded Do you feel stress - tense, restless, nervous, or anxious, or unable to sleep at night because your mind is troubled all the time - these days? Not at all 09/26/2023 Exercise Vital Sign Answer Date Recorde d On average, how many days pe r week do you engage in moderate to strenuous exercise (like a brisk walk)? 4 days 09/26/2023 On average, how many minutes do you engage in exercise at this level? 30 min 09/26/2023 Hunger Vital Sign Answer Date Recorded Within the past 12 months, y ou worried that your food would run out before you got the money to buy more. Never true 09/26/19 24 Within the past 12 months, t he food you bought just didn't last and you didn't have money to get more. Never true 09/26/2023 PRAPARE - Transportation Answer Date Re corded In the past 12 months, has l ack of transportation kept you from medical appointments or from getting medications? No 05/2023 In the past 12 months, has l ack of transportation kept you from meetings, work, or from getting things needed for daily living? No 09/26/2023 Housing Stability Vital Sign Answer Roe e Recorded In the last 12 months, was t here a time when you were not able to pay the mortgage or rent on time? No 09/26/2023 In the last 12 months, how many places have you lived? 1 09/26/2023 In the last 12 months, was t here a time when you did not have a steady place to sleep or slept in a skilled nursing (including now)? No 09/26/2023 Comments Unknown Sex and Gender Information Value Date Recorded Sex Assigned at Not on file Legal Sex Female 4:12 PM EDT Gender Identity Not on file Sexual Orientation Not on file documented as of this encounter Last Filed Vital Signs Vital Sign Reading Time Taken Comments Blood Pressure 116/64 09/28/2024 2:02 PM EDT Pulse 74 09/28/2024 2:02 PM EDT Temperature 36.6 C (97.8 F) 09/28/2024 2:02 PM EDT Respiratory Rate 22 09/28/2024 2:02 PM EDT Oxygen Saturation 93% 09/28/2024 2:02 PM EDT Inhaled Oxygen Concentration - - Weight 77.6 kg (171 lb) 09/28/2024 2:02 PM EDT Height 162.6 cm (5' 4 ) 09/28/2024 2:02 PM EDT Body Mass Index 29.35 09/28/2024 2:02 PM EDT documented in this encounter Progress Notes * Antonio Riggins MD - 09/28/2024 2:33 PM EDTAssociated Problem(s): Type 2 diabetes mellitus without complication, without long-term current useof insulin (HCC) Due for A1C. Continue metformin. Stick to ADA diet and limit carbs. * Antonio Riggins MD - 09/28/2024 2:33 PM EDTAssociated Problem(s): HTN (hypertension), benign BP controlled and monitor PRN. * Antonio Riggins MD - 09/28/2024 2:33 PM EDTAssociated Problem(s): Centrilobular emphysema (HCC) Symptoms stable and follow with pulmonology. * Antonio Riggins MD - 09/28/2024 2:32 PM EDTAssociated Problem(s): Bronchiolectasis (HCC) Symptoms stable and follow with pulmonology. * Antonio Riggins MD - 09/28/2024 2:00 PM EDT Images from the original note were not included. Subjective Patient ID: Akil Torres is a 69 y.o. female who presents for Follow-up (6m). Follow up DM, HTN, COPD, and bronchiectasis. Patient stable today. Labs in May showed A1C 6.7 and diagnosed with DM. Started metformin and tolerating well. Tries to eat well and stick to ADA diet. Denies signs of elevated BS such as polyuria, polyphagia or polydipsia. Checking BP PRN and typically controlled. BP normal today. Taking medication daily and tolerating without side effects. Following with pulmonology and breathing stable. Mild cough and using albuterol PRN. Review of Systems Respiratory: Negative for cough, [...] There is no guarding or rebound. Musculoskeletal: Cervical back: Neck supple. Right lower leg: No edema. Left lower leg: No edema. Neurological: Mental Status: She is alert. Assessment/Plan Problem List Items Addressed This Visit HTN (hypertension), benign (CMS/HCC) BP controlled and monitor PRN. Centrilobular emphysema (CMS/HCC) Symptoms stable and follow with pulmonology. Type 2 diabetes mellitus without complication, without long-term current use of insulin - Primary Due for A1C. Continue metformin. Stick to ADA diet and limit carbs. Relevant Medications metFORMIN XR (Glucophage-XR) 500 MG 24 hr tablet Other Relevant Orders Hemoglobin A1c Bronchiolectasis (CMS/HCC) Symptoms stable and follow with pulmonology. documented in this encounter Plan of Treatment Upcoming Encounters Date Type Department Care Team (Late st Contact Info) Description 12/20/2024 11:20 AM EDT Office Visit [facility] [address] [facility] [address] [place] [address] Analisa Mireles MD [address] [facility] [address] [place] [address] 04/03/2025 1:00 PM EST Office Visit [facility] [address] [place] [address] Antonio Riggins MD [address] [place] [address] Scheduled Orders Name Type Priority Associated Diagnoses Orde r Schedule Hemoglobin A1c Lab Routine Type 2 diabetes mellitus without complication, without long-term current use of insulin (HCC) Expected: 09/28/2024 (Approximate), Expires: 09/28/2025 documented as of this encounter Visit Diagnoses Diagnosis Type 2 diabetes mellitus without complication, without long-term current use of insulin (HCC)- Primary HTN (hypertension), benign Essential hypertension, benign Bronchiolectasis (HCC) Bronchiectasis without acute exacerbation Centrilobular emphysema (HCC) documented in this encounter Additional Health Concerns Assessment Noted Time PHQ-9 Depression Total Score: 0 03/28/20 11:00 AM EST documented as of this encounter Care Teams Track Helper Relationship Specialty Start Date End Date Antonio Riggins MD [address] [place] [address] PCP - General Family Medicine 10/21/22 Antonio Riggins MD [address] [place] [address] PCP - Jaycee DAVIS 11/25/23 Delmar Bowen MA [address] [place] [address] Family Medicine 04/18/24 documented as of this encounter
--- OUTSIDE RECORDS SUMMARY | 2024-10-10 14:15 | XMS_ITS | Encounter Summary ---
Author Organization [facility] Address [address] [place] [address] Care Team Providers Care Hospital Chief Financial Officer Name Role Phone Antonio Riggins MD Primary Care Provider [phone] Reason for Referral * Imaging (Routine) - Pending Review Specialty Diagnoses / Procedures Referred By Arturo christopher Referred To Contact Cardiology Diagnoses Pericardial effusion Chronic heart failure with preserved ejection fraction (CMS/HCC) Procedures Transthoracic echo (TTE) limited Jaime Gonzalez MD [address] [facility] [place] [address] Phone: tel: fax: Referral ID Status Reason Start Date Expiration Date Visits Requested Visits Authorized [id number] Pending Review Perform Procedure 10/10/2024 10/10/2025 1 1 Encounter Details Date Type Department Care Team (Late st Contact Info) Description 10/10/2024 2:15 PM EDT Office Visit [facility] [address] [place] [address] Jaime Gonzalez MD [address] [place] [address] Pericardial effusion (Primary Dx); Abnormal CT scan, chest; HTN (hypertension), benign; Chronic heart failure with preserved ejection fraction (CMS/HCC) Social History Tobacco Use Types Packs/Day Years Used Date Smoking Tobacco: Every Day Cigarettes Passive Smoke Exposure: Current Smokeless Tobacco: Never Alcohol Use Standard Drinks/Week Comments Not Asked [...] Sign Reading Time Taken Comments Blood Pressure 115/69 10/10/2024 2:04 PM EDT Pulse 68 10/10/2024 2:04 PM EDT Temperature - - Respiratory Rate - - Oxygen Saturation 96% 10/10/2024 2:04 PM EDT Inhaled Oxygen Concentration - - Weight 77.1 kg (170 lb) 10/10/2024 2:04 PM EDT Height 162.6 cm (5' 4 ) 10/10/2024 2:04 PM EDT Body Mass Index 29.18 10/10/2024 2:04 PM EDT documented in this encounter Progress Notes * Jaime Gonzalez MD - 10/10/2024 2:15 PM EDT Images from the original note were not included. [facility] Cardiology Clinic Note Chief Complaint: Patient is here today for test results for his stress test and ECHO. Patient states she feels pretty good. Patient states her shortness of breath improved, patient states she has been walking more. Patient states she just came from Dr. Head office and he told her everything lookedgood. HPI: Erica Chacon is a 69 y.o. female Here for shortness of breath and abnormal CT scan of the chest The patient has had COPD for many years; she sees Dr. Parsons here in the hospital for at least thepast 5 years. On a recent CAT scan [...] at that time, she had chest pain, hercardiologist did a number of tests and told her heart was fine PMHx: COPD exacerbation, hypothyroidism acquired, essential hypertension FH: No premature coronary artery disease in any first-degree relatives SOCIAL Hs: Unfortunately continues to smoke, drinks socially. Review of Systems Constitutional: Negative. Past Medical History She has a past medical history of COPD (chronic obstructive pulmonary disease) (CMS/HCC), Diabetes mellitus (CMS/HCC), and Hypertension. Surgical History She has a past surgical history that includes Cataract extraction, bilateral; section, classic; Dilation and curettage of uterus; Thyroidectomy; and Bronchoscopy. Social History She reports that she has been smoking cigarettes. She has been exposed to tobacco smoke. She has never used smokeless tobacco. She reports that she does not use drugs. No history on file for alcohol use. Family History Family History Problem Relation Name Age of Onset Coronary artery disease Mother Heart failure Father Atrial fibrillation Brother Allergies Patient has no known allergies. Medications Current Outpatient Medications: albuterol 90 mcg/actuation inhaler, Inhale 2 puffs every 4 (four) hours if needed., Disp: , Rfl: amLODIPine (Norvasc) 5 mg tablet, Take 5 mg by mouth in the morning., Disp: , Rfl: aspirin 81 mg EC tablet, Take 81 mg by mouth in the morning., Disp: , Rfl: levothyroxine (Synthroid, Levoxyl) 112 mcg tablet, Take 112 mcg by mouth before breakfast., Disp: ,Rfl: losartan (Cozaar) 50 mg tablet, Take 50 mg by mouth in the morning., Disp: , Rfl: metFORMIN (Glucophage) 500 mg tablet, Take 500 mg by mouth with breakfast., Disp: , Rfl: multivitamin tablet, Take 1 tablet by mouth in the morning., Disp: , Rfl: Trelegy Ellipta 100-62.5-25 mcg blister with device, Inhale 100 mcg in the morning., Disp: , Rfl: Last Recorded Vitals BP 115/69 (BP Location: Left arm, Patient Position: Sitting) Pulse 68 Ht 1.626 m (5' 4 ) Wt 77.1 kg (170 lb) SpO2 96% BMI 29.18 kg/m?? Physical Examination: GENERAL: alert and oriented x3, [...] Normal sinus rhythm, normal EKG Patient Name: ERICA CHACON MRN: [facility]:[id number] date: 1955 Sex: F Assigned Patient Location: CT Current Patient Location: CT Accession/Order Number: [id number] Exam Date: 08/11/2024 14:51 Report Date: 08/11/2024 [...] ESOPHAGUS: Unremarkable. HEART: Within normal limits Imaging [id number] [facility] 2 Patient name: ERICA CHACON PERICARDIAL EFFUSION: Small CORONARY ARTERY CALCIFICATION: None MEDIASTINUM: No adenopathy. No pneumoperitoneum. No mediastinal hematoma. PULMONARY GREGORY: No hilar mass or adenopathy isseen. THORACIC AORTA Unremarkable LUNG NODULE similar small nodularity. LUNGS: Scattered lung scarring. Emphysema. Scattered tree-in-bud nodularity involving the right lung. PLEURAL EFFUSION: None PNE UMOTHORAX: No pneumothorax seen. CHEST WALL: Bilateral breast implantation AXILLA:Unremarkable BONYSTRUCTURES Intact UPPER ABDOMEN: Images of the upper [...] Jovanny Swanson M.D.08/11/2024 3:03 PM Dictation Location: [place] [address] Electronically authenticated by: [id number] Y Date: 08/11/2024 15:03 Echocardiogram 10/06/2024: Left ventricular systolic function is hyperdynamic; visually estimated ejection fraction is 65 to 70% Normal right ventricular size and systolic function Mild left ventricular hypertrophy Diastolic function is indeterminate Moderately elevated right-sided pressure; RVSP 51 mmHg No significant valvular abnormalities Small anterior pericardial effusion Lexiscan stress test 10/09/2024: No evidence of ischemic ST changes seen following infusion of Lexiscan Myocardial perfusion is normal with soft tissue attenuation Global left ventricular systolic function is hyperdynamic No significant transient ischemic dilatation Serum creatinine 0.88 Assessment: Shortness of breath Likely multifactorial and related primarily to pulmonary disorders +/- an element of HFpEF Centrilobular emphysema Multiple pulmonary nodules Bronchiectasis Small pericardial effusion (anterior - fat pad vs effusion) Essential hypertension with mild left ventricular hypertrophy Diabetes mellitus Pulmonary hypertension; RVSP 51 mmHg Plan: Reassurance; stress test and echocardiogram showed no significant abnormalities apart from elevatedRVSP Given probable HFpEF, may consider Farxiga 10 mg and/or Spironolactone - will defer for now given obvious pulmonary disorders Given hypertension with left ventricular hypertrophy, she is appropriately on an angiotensin receptor mark anthony in the form of Cozaar Treat noncardiac comorbidities as clinically appropriate particularly pulmonary Will repeat a limited echocardiogram in 3 months to assure absence of progression in her effusion May consider a right heart catheterization to differentiate the causes of her pulmonary hypertension; at this juncture it is likely related to her underlying pulmonary disease Encouraged to stop smoking. Follow-up in a year or sooner should problems arise. Jaime Gonzalez MD, MPH, FACC, [facility], [facility] Interventional Cardiology Pager Email: [email or web address] documented in this encounter Plan of Treatment Scheduled Orders Name Type Priority Associated Diagnoses Order Schedule Transthoracic echo (TTE) limited Echocardiography Routine Pericardial effusion Chronic heart failure with preserved ejection fraction (CMS/HCC) Expected: 10/10/2024 (Approximate), Expires: 10/10/2026 documented as of this encounter Visit Diagnoses Diagnosis Pericardial effusion- Primary Unspecified disease of pericardium Abnormal CT scan, chest HTN (hypertension), benign Essential hypertension, benign Chronic heart failure with preserved ejection fraction (CMS/HCC) documented in this encounter Care Teams Hospital Chief Financial Officer Relationship Specialty Start Date End Date Antonio Riggins MD [address] [place] [address] PCP - General Family Medicine 09/06/24 documented as of this encounter
--- OUTSIDE RECORDS SUMMARY | 2024-10-10 14:31 | XMS_ITS | Encounter Summary ---
Author Organization [facility] Address [address] [place] [address] Care Team Providers Care Reverse Engineer Name Role Phone Unavailable Primary Care Provider Unavailabl e Reason for Visit * Reason Comments Medication Refill Encounter Details Date Type Department Care Team (Late st Contact Info) Description 09/23/2020 Refill [facility] Medicine [address] [place] [address] Ottoniel Fuchs MD [address] [place], [place] [id number] Medication Refill Social History Tobacco Use Types [...] and Family Once a week 12/29/2018 Attends Rastafari Services Never 12/29 Active Member of Clubs [...] Answer Date Recorded PHQ-2 Score 0 07/27/2018 [facility] [place] [facility] - Occupational Stress [...]
--- OUTSIDE RECORDS SUMMARY | 2024-10-10 14:31 | XMS_ITS | Encounter Summary ---
Author Organization [facility] Address [address] [place] [address] Care Team Providers Care Computer Technologist Name Role Phone Antonio Riggins MD Primary Care Provider Antonio Riggins MD Unavailable Sonam Gloria LPN Unavailable Delmar Bowen MA Unavailable [phone] Encounter Details Date Type Department Care Team (Late Contact Info) Description 07/22/2023 Orders Only [facility] [address] [place] [address] Jovanny Lima MD [address] [place] [address] Social History Tobacco Use Types Packs/Day Years [...] [address] [facility] [address] [place] [address] Analisa Mireles MD [address] [facility] [address] [place] [address] 04/03/2025 1:00 PM EST Office Visit [facility] [address] [place] [phone] Antonio Riggins MD [address] [place] [address] documented as of this encounter Procedures Procedure [...] on filedocumented in this encounter Care Teams Computer Technologist Relationship Specialty Start Date End Date Antonio Riggins MD [address] [place] [address] PCP - General Family Medicine 10/21/22 Antonio Riggins MD [address] [place] [address] PCP - Jaycee DAVIS 11/25/23 Sonam Gloria LPN [address] [place] [address] Licensed Practical Nurse Family Medicine 04/17/2403/27 Delmar Bowen MA [address] [place] [address] Family Medicine 04/18/24 documented as of this encounter
--- OUTSIDE RECORDS SUMMARY | 2024-10-10 14:31 | XMS_ITS | Encounter Summary ---
Author Organization [facility] Address [address] [place] [address] Care Team Providers Care Candle Extrusion Machine Operator Name Role Phone Antonio Riggins MD Primary Care Provider [phone] Antonio Riggins MD Unavailable Delmar Bowen MA Unavailable [phone] Encounter Details Date Type Department Care Team (Late st Contact Info) Description 10/06/2024 Clinisync Result Encounter [facility] External Department Unsolicited [...] 09/26/2023 How often do you attend chur or temple services? Never 09/26/2023 Do you belong to any clubs o r organizations such as gnosticism groups, unions, fraternal or athletic groups, or [...] Recorded Patient Health Questionnaire-2 Score 0 03/28/[address] [facility] - Occupational Stress Questionnaire Answer Date [...] [address] [place] [address] Analisa Mireles MD [address] [place] [address] 04/03/2025 1:00 PM EST Office Visit [facility] [address] [place] [address] nAtonio Riggins MD [address] [place] [phone] documented as of this encounter Procedures Procedure Name Priority Date/Time Associated Diagnosis Comments CA ECHO DOPPLER COMPLETE 10/06/2024 2:46 PM EDT documented in this encounter Results * CA ECHO DOPPLER COMPLETE (10/06/2024 2:46 PM EDT) Anatomical Region Laterality Modality Other 10/06/2024 2:46 PM EDT Narrative 10/06/2024 2:48 [place] [address] Cardiology Report Signed Patient: ERICA CHACON MR#: [id number] : 1955 Acct:[id number] Age/Sex: 69 / F ADM Date: 10/06/24 Loc: [place] Attending Dr: Jaime El M.D. Ordering Physician: Jaime El M.D. Date of Service: 10/06/24 Procedure(s): CA echo doppler complete Accession Number(s): [id number] cc: Jaime El M.D.; Antonio Riggins M.D. Patient Name: ERICA CHACON MR#: [id number] : 1955 Exam Date: 10/06/2024 Ordering Doctor: DR JAIME EL M.D. ECHOCARDIOGRAM REPORT PROCEDURE: CA ECHO DOPPLER COMPLETE INDICATIONS: Pericardial effusion, hypertension, diabetes, smoker, COPD COMPARISON: None. DESCRIPTION: COMPLETE ECHOCARDIOGRAM Real-time transthoracic echocardiography with 2D, M-mode, spectral and color flow Doppler performed. QUALITY: Technical quality was good. LEFT VENTRICLE: Normal chamber size. Mild concentric left ventricular hypertrophy. LV EF: Global left ventricular systolic function is hyperdynamic; visually estimated ejection fraction is 65 to 70%. Calculated left ventricular ejection fraction is 79%. DIASTOLIC: Diastolic function is indeterminate. ATRIAL SEPTUM: Visually appears intact. LEFT ATRIUM: Normal chamber size. RIGHT ATRIUM: Normal chamber size. RIGHT VENTRICLE: Normal chamber size. Normal right ventricular systolic function. TRICUSPID VALVE: Normal mobility and thickness. No stenosis with trivial regurgitation. Doppler studies reveal moderately (45-60) elevated right sided pressures. RVSP 51 mmHg MITRAL VALVE: Normal mobility and thickness. No evidence of mitral valve stenosis. Mild mitral annular calcification. No mitral regurgitation. AORTIC VALVE: Normal trileaflet appearance. No visible sclerosis. Normal leaflet mobility. No evidence of aortic valve stenosis. No aortic regurgitation. AORTIC ROOT: Normal diameter and appearance. PULMONIC VALVE: Normal thickness and mobility. No stenosis. No regurgitation. PERICARDIUM: Small anterior pericardial effusion. IVC: Collapses with inspiration. IVC is normal in size. CONCLUSION: 1. Global left ventricular systolic function is hyperdynamic; visually estimated ejection fraction 65 to 70% 2. Normal right ventricular size and systolic function 3. Mild left ventricle hypertrophy 4. Diastolic function is indeterminate 5. Moderately elevated right-sided pressure; RVSP 51 mmHg 6. No significant valvular abnormalities 7. Small anterior pericardial effusion Adult Echocardiography Procedure Report Left Ventricle LVEDD (3.7 - 5.6 cm): 3.85 cm LVESD (2.2 - 4.0 cm): 2.84 cm LVIVS thickness (0.6 - 1.2 cm): 1.25 cm LVPW thickness (0.5 - 1.0 cm): 1.25 cm e': 0.06 m/s E - e': 10.44 LVOT Max Gradient: 3.30 mm[Hg] LVOT Area (cm2): 0.91 m/s Peak Velocity (LVOT): 0.91 m/s Mean Velocity (LVOT): 0.63 m/s LVOT Diameter 2.25 cm Left Atrium LA Volume Index (2D A2C): 24.56 ml/m2 Left Atrium Systolic Dimension: 4.16 cm Mitral Valve MV E to A Ratio: 0.68 Mitral Valve A-Wave Peak Velocity: 0.88 m/s Mitral Valve E-Wave Peak Velocity: 0.60 m/s Right Ventricle Aorta AO Root Diam: 2.66 cm Aortic Valve AoV Area (Peak Noah): 2.89 cm2, 2.89 cm2 AoV Area (VTI): 2.75 cm2, 2.75 cm2 Peak Velocity(Antegrade Flow): 1.25 m/s Peak Gradient(Antegrade Flow): 6.23 mm[Hg] Mean Velocity(Antegrade Flow): 0.90 m/s Mean Gradient(Antegrade Flow): 3.60 mm[Hg] Velocity Time Integral: 29.83 cm Tricuspid Valve Peak Velocity (Regurgitant Flow): 3.48 m/s Pulmonic Valve Peak Velocity: 1.07 m/s Peak Gradient: 4.57 mm[Hg] Right Atrium Right Atrium Systolic Pressure: 35.53 ml, 35.53 ml Dictated by: Jaime El M.D. on 10/06/2024 at 14:42 Approved by: Jaime El M.D. on 10/06/2024 at 14:46 Dictated By: Jaime El M.D. Signed By: 10/06/24 1448 DD/ 1446 TD/TT: Rear Admiral: Procedure Note Radiology, Radiologist, MD - 10/06/2024 [place] [address] Cardiology Report Signed Patient: ERICA CHACON#: [id number] : 5Acct:[id number] Age/Sex: 69 / FADM Date: 10/06/24 Loc: [facility] Attending Dr: Jaime El M.D. Ordering Physician: Jaime El M.D. Date of Service: 10/06/24 Procedure(s): CA echo doppler complete Accession Number(s): [id number] cc: Jaime El M.D.; Antonio Riggins M.D. Patient Name: ERICA CHACON MR#: [id number] : 1955 Exam Date: 10/06/2024 Ordering Doctor: DR JAIME EL M.D. ECHOCARDIOGRAM REPORT PROCEDURE: CA ECHO DOPPLER COMPLETE INDICATIONS: Pericardial effusion, hypertension, diabetes, smoker,COPD COMPARISON: None. DESCRIPTION: COMPLETE ECHOCARDIOGRAM Real-time transthoracic echocardiography with 2D, M-mode, spectral and color flow Dopplerperformed. QUALITY: Technical quality was good. LEFT VENTRICLE: Normal chamber size. Mild concentric left ventricular hypertrophy. LV EF: Global left ventricular systolic function is hyperdynamic;visually estimated ejection fraction is 65 to 70%. Calculated left ventricularejection fraction is 79%. DIASTOLIC: Diastolic function is indeterminate. ATRIAL SEPTUM: Visually appears intact. LEFT ATRIUM: Normal chamber size. RIGHT ATRIUM: Normal chamber size. RIGHT VENTRICLE: Normal chamber size. Normal right ventricularsystolic function. TRICUSPID VALVE: Normal mobility and thickness. No stenosis withtrivial regurgitation. Doppler studies reveal moderately (45-60) elevated rightsided pressures. RVSP 51 mmHg MITRAL VALVE: Normal mobility and thickness. No evidence of mitralvalve stenosis. Mild mitral annular calcification. No mitral regurgitation. AORTIC VALVE: Normal trileaflet appearance. No visible sclerosis.Normal leaflet mobility. No evidence of aortic valve stenosis. No aortic regurgitation. AORTIC ROOT: Normal diameter and appearance. PULMONIC VALVE: Normal thickness and mobility. No stenosis. No regurgitation. PERICARDIUM: Small anterior pericardial effusion. IVC: Collapses with inspiration. IVC is normal in size. CONCLUSION: 1. Global left ventricular systolic function is hyperdynamic; visually estimated ejection fraction 65 to 70% 2. Normal right ventricular size and systolic function 3. Mild left ventricle hypertrophy 4. Diastolic function is indeterminate 5. Moderately elevated right-sided pressure; RVSP 51 mmHg 6. No significant valvular abnormalities 7. Small anterior pericardial effusion Adult Echocardiography Procedure Report Left Ventricle LVEDD (3.7 - 5.6 cm): 3.85 cm LVESD (2.2 - 4.0 cm): 2.84 cm LVIVS thickness (0.6 - 1.2 cm): 1.25 cm LVPW thickness (0.5 - 1.0 cm): 1.25 cm e': 0.06 m/s E - e': 10.44 LVOT Max Gradient: 3.30 mm[Hg] LVOT Area (cm2): 0.91 m/s Peak Velocity (LVOT): 0.91 m/s Mean Velocity (LVOT): 0.63 m/s LVOT Diameter 2.25 cm Left Atrium LA Volume Index (2D A2C): 24.56 ml/m2 Left Atrium Systolic Dimension: 4.16 cm Mitral Valve MV E to A Ratio: 0.68 Mitral Valve A-Wave Peak Velocity: 0.88 m/s Mitral Valve E-Wave Peak Velocity: 0.60 m/s Right Ventricle Aorta AO Root Diam: 2.66 cm Aortic Valve AoV Area (Peak Noah): 2.89 cm2, 2.89 cm2 AoV Area (VTI): 2.75 cm2, 2.75 cm2 Peak Velocity(Antegrade Flow): 1.25 m/s Peak Gradient(Antegrade Flow): 6.23 mm[Hg] Mean Velocity(Antegrade Flow): 0.90 m/s Mean Gradient(Antegrade Flow): 3.60 mm[Hg] Velocity Time Integral: 29.83 cm Tricuspid Valve Peak Velocity (Regurgitant Flow): 3.48 m/s Pulmonic Valve Peak Velocity: 1.07 m/s Peak Gradient: 4.57 mm[Hg] Right Atrium Right Atrium Systolic Pressure: 35.53 ml, 35.53 ml Dictated by: Jaime El M.D. on 10/06/2024 at 14:42 Approved by: Jaime El M.D. on 10/06/2024 at 14:46 Dictated By: Jaime El M.D. Signed By:10/06/24 1448 DD/ 1446 TD/TT: Rear Admiral: us Generic External Data Provider [facility] Final Result documented in this encounter Visit Diagnoses Not on filedocumented in this encounter Additional Health Concerns Assessment Noted Time PHQ-9 Depression Total Score: 0 03/28/20 24 11:00 AM EST documented as of this encounter Care Teams Candle Extrusion Machine Operator Relationship Specialty Start Date End Date Antonio Riggins MD [address] [place] [address] PCP - General Family Medicine 10/21/22 Antonio Riggins MD [address] [place] [phone] PCP - Jaycee DAVIS 11/25/23 Delmar Bowen [place] [address] [place] [address] Family Medicine 04/18/24 documented as of this encounter
--- OUTSIDE RECORDS SUMMARY | 2024-10-10 14:31 | XMS_ITS | Clinical Summary ---
Author Organization [facility] Address [address] [place] [address] Care Team Providers Care Film Coater Name Role Phone Ottoniel Fuchs MD Primary Care Provider Allergies No known active allergies Medications calcium, [...] EDT) Sodium 136 136 - 145 mEq/L [facility] Potassium 4.1 3.5 - 5.1 mEq/L [facility] Chloride 105 98 - 107 mEq/L [facility] CO2 31 21 - 32 mEq/L [facility] Glucose 151(H) 70 - 99 mg/dL [facility] BUN 7 7 - 25 mg/dL [facility] Creatinine 0.51 0.51 - 0.95 mg/dL [facility] Calcium 9.1 8.5 - 10.1 mg/dL [facility] Albumin 2.8(L) 3.4 - 5.0 g/dL [facility] Protein, Total 6.6 6.4 - 8.2 g/dL [facility] AST 34 15 - 37 U/L [facility] ALT 44 12 - 78 U/L [facility] Alkaline Phosphatase 60 46 - 116 U/L [facility] Bilirubin, Total 0.1(L) 0.2 - 1.0 mg/dL [facility] Anion Gap 4(L) 8 - 20 [facility] BUN/CREATININE RATIO 14 10 - 20 [facility] 11/13/2013 6:20 AM EDT 11/13/2013 6:29 AM EDT Cristel Farrell Sheets DO LABORATORY Final Resul t [facility] [address] [place] [address] * LIPID PANEL BASIC (10/06/2008 9:09 AM EDT) Cholesterol, Total 167 <200 MG/DL [facility] Comment: CHOLESTEROL RECOMMENDATIONS: <200 DESIRABLE 200-240 [...] SCREENING SWATI W/CAD (03/23/2007 9:04 AM EST) Event Staff Member RADIOLOGY SCREENING MAMMOGRAM NAME: Akil Torres ROOM#:[facility]#: [id number] ATTEND PHYS:Ottoniel Fuchs M.D. ACCT: [id number] ORDER PHYS:Ottoniel Fuchs M.D. RAD #: [id number] FIN CLASS:B PT TYPE:O EXAM DATE: 03/14/2007 [...] Date: 03/15/2007 Time: 09:55 PM VJob #: [id number] Document ID: [id number] COM: [id number] SCREENING COPY [facility] Anatomical Region Laterality Modality Other 03/23/2007 9:04 AM EST Narrative 03/23/2007 9:04 AM EST Ordered by an unspecified provider. [facility] Provider Escobar MAMMOGRAPHY Final Resul t from Last 3 Months or Most Recently Relevant to Health Maintenance Care Teams Film Coater Relationship Specialty Start Date End Date Ottoniel Fuchs MD PCP - General Family Medicine 05/21/11
--- OUTSIDE RECORDS SUMMARY | 2024-10-10 14:31 | XMS_ITS | Encounter Summary ---
Author Organization [facility] Address [address] [place] [address] Care Team Providers Care Lamp Shades Supervisor Name Role Phone Antonio Riggins MD Primary Care Provider [phone] Antonio Riggins MD Unavailable Sonam Gloria LPN Unavailable Delmar Bowen MA Unavailable [phone] Encounter Details Date Type Department Care [...] often do you attend chur ch or mandaeism services? Never 09/26/2023 Do you belong to any clubs o r organizations such as sabianist groups, unions, fraternal or athletic groups, or [...] more drinks on one occasion? Never 09/26/2023 [facility] - Occupational Stress [...] place to sleep or slept in a chcf (including now)? No 09/26/2023 Comments Unknown Sex [...] EDT Office Visit [facility] [address] [facility] [address] [place] [address] Analisa Mireles MD 112 [facility] 130 [place] [address] 04/03/2025 1:00 PM EST Office Visit [facility] [address] [place] [address] Antonio Riggins MD [address] [place] [address] documented as of this encounter Procedures Procedure Name Priority Date/Time Associated Diagnosis Comments RT PULMONARY FUNCTION TEST 01/31/2024 9:00 AM EDT documented in this encounter Results * RT PULMONARY FUNCTION TEST (01/31/2024 9:00 AM EDT) Anatomical Region Laterality Modality Other 01/31/2024 9:00 AM EDT Narrative 02/01/2024 6:46 [place] [address] Respiratory Report Signed Patient: ERICA CHACON MR#: [id number] : 1955 Acct:[id number] Age/Sex: 68 / F ADM Date: 01/31/24 Loc: CARD Attending Dr: Sukh Lovelace D.O. Ordering Physician: Sukh Lovelace D.O. Date of Service: 01/31/24 Procedure(s): RT pulmonary function test Accession Number(s): [id number] cc: [facility] Test Date: 2024-01-31 Pat Name: ERICA CHACON Department: Room: - Gender: Female Inspector Bullet Slugs: : 1955 Requested By: Sukh Lovelace Order Number: [id number] Reading MD: Sukh Lovelace Interpretive Statements Pulmonary function testing was completed according to ATS criteria. Findings were considered accurate and reproducible. Both pre- and post-bronchodilator values utilized for spirometry. Spirometry (based on pre-bronchodilator values): -FEV1/FVC: Decreased @ 57% -FEV1: Moderately-severe reduction @ 50% -FVC: Reduced @ 67% -KRF83-98%: Reduced @ 25% -There is no significant [...] Dictated By: Sukh Lovelace D.O. Signed By: 02/01/2446 02/01/24 0646 DD/ 0900 TD/TT: Stove Tender: Procedure Note Radiology, Radiologist, MD - 02/01/2024 [place] [address] Respiratory Report Signed Patient: ERICA CHACON AMR#: [id number] : 5Acct:[id number] Age/Sex: 68 / FADM Date: 01/31/24 Loc: CARD Attending Dr: Sukh Lovelace D.O. Ordering Physician: Sukh Lovelace D.O. Date of Service: 01/31/24 Procedure(s): RT pulmonary function test Accession Number(s): [id number] cc: [facility] Test Date: 2024-01-31 Pat Name: ERICA CHACON Department: Room: - Gender: Female Inspector Bullet Slugs: : 1955 Requested By: Sukh Lovelace Order Number: [id number] Reading MD: Sukh Lovelace Interpretive Statements Pulmonary function testing was completed according to ATS criteria.Findings were considered accurate and reproducible. Both pre- andpost-bronchodilator values utilized for spirometry. Spirometry (based on pre-bronchodilator values): -FEV1/FVC: Decreased @ 57% -FEV1: Moderately-severe reduction @ 50% -FVC: Reduced @ 67% -ERF41-61%: Reduced @ 25% -There is no significant [...] Lovelace Dictated By: Sukh Lovelace D.O. Signed By:02/01/24 0646 02/01/24 0646 DD/ 0900 TD/TT: Stove Tender: Generic External Data Provider [facility] Final Result documented in this encounter Visit Diagnoses Not on filedocumented in this encounter Care Teams Lamp Shades Supervisor Relationship Specialty Start Date End Date Antonio Riggins MD [address] [place] [address] PCP - General Family Medicine 10/21/22 Antonio Riggins MD [address] [place] [address] PCP - Jaycee DAVIS 11/25/23 Sonam Gloria LPN [address] [place] [address] Licensed Practical Nurse Family Medicine 04/17/2403/27 Delmar Bowen MA [address] [place] [address] Family Medicine 04/18/24 documented as of this encounter
--- OUTSIDE RECORDS SUMMARY | 2024-10-10 14:31 | XMS_ITS | Encounter Summary ---
Author Organization [facility] Address [address] [place] [address] Care Team Providers Care Box Stacker Name Role Phone Antonio Riggins MD Primary Care Provider [phone] Antonio Riggins MD Unavailable Delmar Bowen MA Unavailable Encounter Details Date Type Department Care [...] How often do you attend chur or latter-day services? Never 09/26/2023 Do you belong to any clubs o r organizations such as yarsanism groups, unions, fraternal or athletic groups, or [...] Recorded Patient Health Questionnaire-2 Score 0 03/28/2024 [facility] - Occupational Stress Questionnaire Answer Date Recorded [...] Visit [facility] [address] [facility] [address] [place] [address] Analisa Mireles MD [address] [facility] [address] [place] [address] 04/03/2025 1:00 PM EST Office Visit [facility] [address] [place] [address] Antonio Riggins MD [address] [place] [address] documented as of this encounter Procedures Procedure Name Priority Date/Time Associated Diagnosis Comments NM CHEL PERF SPECT REST STR 10/06/2024 3:12 PM EDT documented in this encounter Results * NM CHEL PERF SPECT REST STR (10/06/2024 3:12 PM EDT) Anatomical Region Laterality Modality Other 10/06/2024 3:12 PM EDT Narrative 10/06/2024 3:13 [place] [address] Nuclear Medicine Report Signed Patient: ERICA CHACON MR#: [id number] : 1955 Acct:[id number] Age/Sex: 69 / F ADM Date: 10/06/24 Loc: NM Attending Dr: Jaime El M.D. Ordering Physician: Jiame El M.D. Date of Service: 10/06/24 Procedure(s): NM chel perf SPECT rest str Accession Number(s): [id number] cc: Jaime El M.D.; Antonio Riggins M.D. Patient Name: ERICA CHACON MR#: [id number] : 1955 Exam Date: 10/06/2024 Ordering Doctor: DR JAIME EL M.D. RADIOLOGY REPORT PROCEDURE: NM CHEL PERF SPECT REST STR COMPARISON: None. INDICATIONS: PERICARDIAL EFFUSION, DYSPNEA, FAMILY HISTORY TECHNIQUE: Exam Description: Stress/Rest one day protocol gated SPECT Rest Imagin.2 mCi Tc-99m Cardiolite IV on 10/06/2024 Stress Imaging 30.4 mCi Tc-99m Cardiolite IV on 10/06/2024 Exercise Protocol: 0.4 mg Lexiscan given IV Heart Rate (bpm): Rest: 62 Max: 81 PMHR: 54 Blood Pressure: Rest: 128/70 Max: 140/84 Symptoms: Rest and peak stress ECG findings were pending, and the exercise portion of the study was pending per attending physician [facility]. For more details, please see separate cardiac stress test report. FINDINGS: QUALITY OF STUDY: Good PERFUSION DEFECT: LOCATION: N/A SIZE: N/A SEVERITY: N/A TYPE: N/A WALL MOTION: Normal wall motion LV SIZE: 71 mL. TID / TCD: 0.8 LVEF: Calculated EF 85%. SUMMARY: Myocardial perfusion imaging study is normal CONCLUSION: 1. Myocardial perfusion is normal with soft tissue attenuation 2. Global left ventricular systolic function is hyperdynamic 3. No significant transient ischemic dilatation Dictated by: Jaime El M.D. on 10/06/2024 at 15:09 Approved by: Jaime El M.D. on 10/06/2024 at 15:12 Dictated By: Jaime El M.D. Signed By: 10/06/24 1513 DD/ 1512 TD/TT: Molecular Modeler: Procedure Note Radiology, Radiologist, MD - 10/06/2024 [place] [address] Nuclear Medicine Report Signed Patient: ERICA CHACON#: [id number] : 5Acct:[id number] Age/Sex: 69 / FADM Date: 10/06/24 Loc: NM Attending Dr: Jaime El M.D. Ordering Physician: Jaime El M.D. Date of Service: 10/06/24 Procedure(s): NM chel perf SPECT rest str Accession Number(s): [id number] cc: Jaime El M.D.; Antonio Riggins M.D. Patient Name: ERICA CHACON MR#: [id number] : 1955 Exam Date: 10/06/2024 Ordering Doctor: DR JAIME EL M.D. RADIOLOGY REPORT PROCEDURE: NM CHEL PERF SPECT REST STR COMPARISON: None. INDICATIONS: PERICARDIAL EFFUSION, DYSPNEA, FAMILY HISTORY TECHNIQUE: Exam Description: Stress/Rest one day protocol gated SPECT Rest Imagin.2 mCi Tc-99m Cardiolite IV on 10/06/2024 Stress Imaging 30.4 mCi Tc-99m Cardiolite IV on 10/06/2024 Exercise Protocol: 0.4 mg Lexiscan given IV Heart Rate (bpm): Rest: 62 Max: 81 PMHR: 54 Blood Pressure: Rest: 128/70 Max: 140/84 Symptoms: Rest and peak stress ECG findings were pending, and the exercise portionof the study was pending per attending physician [facility]. For more details,please see separate cardiac stress test report. FINDINGS: QUALITY OF STUDY: Good PERFUSION DEFECT: LOCATION: N/A SIZE: N/A SEVERITY: N/A TYPE: N/A WALL MOTION: Normal wall motion LV SIZE: 71 mL. TID / TCD: 0.8 LVEF: Calculated EF 85%. SUMMARY: Myocardial perfusion imaging study is normal CONCLUSION: 1. Myocardial perfusion is normal with soft tissue attenuation 2. Global left ventricular systolic function is hyperdynamic 3. No significant transient ischemic dilatation Dictated by: Jaime El M.D. on 10/06/2024 at 15:09 Approved by: Jaime El M.D. on 10/06/2024 at 15:12 Dictated By: Jaime El M.D. Signed By:10/06/24 1513 DD/ 1512 TD/TT: Molecular Modeler: us Generic External Data Provider [facility] Final Result documented in this encounter Visit Diagnoses Not on filedocumented in this encounter Additional Health Concerns Assessment Noted Time PHQ-9 Depression Total Score: 0 03/28/20 24 11:00 AM EST documented as of this encounter Care Teams Box Stacker Relationship Specialty Start Date End Date Antonio Riggins MD [address] [place] [address] PCP - General Family Medicine 10/21/22 Antonio Riggins MD [address] [place] [address] PCP - aJycee DAVIS 11/25/23 Delmar Bowen MA [address] [place] [address] Family Medicine 04/18/24 documented as of this encounter
--- OUTSIDE RECORDS SUMMARY | 2024-10-10 14:31 | XMS_ITS | Encounter Summary ---
Author Organization [facility] Address [address] [place] [address] Care Team Providers Care Tufting Creeler Name Role Phone Antonio Riggins MD Primary Care Provider Antonio Riggins MD Unavailable Sonam Gloria LPN Unavailable Delmar Bowen MA Unavailable [phone] Encounter Details Date Type Department Care Team (Late Contact Info) Description 07/23/2023 Orders Only [facility] [address] [place] [address] Antonio Riggins MD [address] [place] [address] Social History Tobacco Use Types Packs/Day Years [...] Office Visit [facility] [address] [facility] 130 [place] [address] Analisa Mireles MD [address] [facility] 130 [place] [address] 04/03/2025 1:00 PM EST Office Visit [facility] [address] [place] [address] Antonio Riggins MD [address] [place] [address] documented as of this encounter Procedures Procedure Name Priority Date/Time Associated Diagnosis Comments ECG 12-LEAD Routine 07/23/2023 10:36 AM EDT documented in this encounter Results * ECG 12 lead (07/23/2023 10:36 AM EDT) Antonio Riggins MD ECG ORDERABLES Final Result documented in this encounter Visit Diagnoses Not on filedocumented in this encounter Care Teams Tufting Creeler Relationship Specialty Start Date End Date Antonio Riggins MD [address] [place] [address] PCP - General Family Medicine 10/21/22 Antonio Riggins MD [address] [place] [address] PCP - Jaycee DAVIS 11/25/23 Sonam Gloria LPN [address] [place] [address] Licensed Practical Nurse Family Medicine 04/17/2403/27 Delmar Bowen MA [address] [place] [address] Family Medicine 04/18/24 documented as of this encounter
--- OUTSIDE RECORDS SUMMARY | 2024-10-10 14:31 | XMS_ITS | Clinical Summary ---
Author Organization [facility] Address [address] [place] [address] Care Team Providers Care Farm Management Professor Name Role Phone Antonio Riggins MD Primary Care Provider [phone] Allergies No known active allergies Medications albuterol 90 mcg/actuation inhaler Inhale 2 puffs every 4 (four) hours if needed. 4 Active amLODIPine (Norvasc) 5 mg tablet Take 5 mg by mouth in the morning. Active losartan (Cozaar) 50 mg tablet Take 50 mg by mouth in the morning. 5 Active levothyroxine (Synthroid, Levoxyl) 112 mcg tablet Take 112 mcg by mouth before breakfast. 7 Active metFORMIN (Glucophage) 500 mg tablet Take 500 mg by mouth with breakfast. 5 Active aspirin 81 mg EC tablet Take 81 mg by mouth in the morning. Active Trelegy Ellipta 100-62.5-25 mcg blister with device Inhale 100 mcg in the morning. Active multivitamin tablet Take 1 tablet by mouth in the morning. Active calcium 500 mg calcium (1,250 mg) tablet 1 tablet in the morning. Active fluticasone (Flonase) 50 mcg/actuation nasal spray Administer 2 sprays into each nostril in the morning. Active sodium chloride 0.9 % nebulizer solution Take 3 mL by nebulization two times daily. 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 025 Type 2 diabetes mellitus wit hout complication, [...] Encounters Date Type Department Care Team Description 10/10/2024 2:15 PM EDT Office Visit [address] [place] [address] Jaime Gonzalez MD Pericardial effusion (Primary Dx); Abnormal CT scan, chest; HTN (hypertension), benign; Chronic heart failure with preserved ejection fraction (CMS/HCC) 09/06/2024 2:15 PM EDT Office Visit [address] [place] [address] Jaime Gonzalez MD Centrilobular emphysema (CMS/HCC) (Primary Dx); HTN (hypertension), benign; Abnormal CT scan, chest; Pericardial effusion 09/06/2024 Orders Only [address] [address] Jessica Rolon MA Pericardial effusion; SALAZAR (dyspnea [...] Mass Index 29.18 10/10/2024 2:04 PM EDT Plan of Treatment Health Maintenance Due Date Last Done Comments CT Colonography 1955 Diabetes: Hemoglobin A1C 1955 FIT-DNA 1955 FIT 1955 FOBT 1955 Medicare Annual Wellness (AWV) 1955 Sigmoidoscopy 1955 Diabetes: Retinopathy Screening 1964 Depression Screening 1966 Diabetes: Urine Protein Screening 1973 Mammogram 1994 Fall Risk Screening 08/02/2019 COVID-19 Vaccine ( season) 2023 02/04/2021 Adult Tetanus 12/24/2025 12/25/2015 Colonoscopy 05/12/2033 05/12/2023 Colorectal Cancer Screening 05/12/2033 Zoster Vaccines Completed 12/29/2018, 01/24, 02/12/2015 Pneumococcal [...] patient's age to complete this topic Insurance [facility] MEDICARE ADVANTAGE Care Teams Farm Management Professor Relationship Specialty Start Date End Date Antonio Riggins MD [address] [facility] [address] PCP - General Family Medicine 09/06/24
--- OUTSIDE RECORDS SUMMARY | 2024-10-10 14:31 | XMS_ITS | Encounter Summary ---
Author Organization [facility] Address [address] [place] [address] Care Team Providers Care Charcoal Unloader Name Role Phone Antonio Riggins MD Primary Care Provider Antonio Riggins MD Unavailable Sonam Gloria LPN Unavailable Delmar Bowen MA Unavailable [phone] Encounter Details Date Type Department Care Team (Late Contact Info) Description 06/15/2023 Orders Only [facility] [address] [place] [address] Antonio Riggins MD [address] [place] [address] Social History Tobacco Use Types Packs/Day Years [...] Office Visit [facility] [address] [facility] 130 [place] [address] Analisa Mireles MD [address] [facility] 130 [place] [address] 04/03/2025 1:00 PM EST Office Visit [facility] [address] [place] [address] Antonio Riggins MD [address] [place] [address] documented as of this encounter Visit Diagnoses Not on filedocumented in this encounter Care Teams Charcoal Unloader Relationship Specialty Start Date End Date Antonio Riggins MD [address] [place] [address] PCP - General Family Medicine 10/21/22 Antonio Riggins MD [address] [place] [address] PCP - Jaycee DAVIS 11/25/23 Sonam Gloria LPN [address] [place] [address] Licensed Practical Nurse Family Medicine 04/17/2403/27 Delmar Bowen MA [address] [place] [address] Family Medicine 04/18/24 documented as of this encounter
--- OUTSIDE RECORDS SUMMARY | 2024-10-10 14:31 | XMS_ITS | Encounter Summary ---
Author Organization [facility] Address [address] [facility] [place] [address] Care Team Providers Care Real Estate Portfolio Manager Name Role Phone Antonio Riggins MD Primary Care Provider [phone] Antonio Riggins MD Unavailable Delmar Bowen MA Unavailable Encounter Details Date Type Department Care Team (Late st Contact Info) Description 06/29/2024 Orders Only [facility] [address] [place] [address] Barbie Dhaliwal SET UP OPERATOR [address] [place] [address] Social History Tobacco Use Types Packs/Day Years [...] often do you attend chur ch or jainism services? Never 09/26/2023 Do you belong to [...] Recorded Patient Health Questionnaire-2 Score 0 03/28/2024 [facility] Occupat ional Health - [...] place to sleep or slept in a detention (including now)? No 09/26/2023 Comments Unknown Sex [...] EDT Office Visit [facility] [address] [facility] [address] [place] [address] Analisa Mireles MD [address] [facility] [address] [place] [address] 04/03/2025 1:00 PM EST Office Visit [facility] [address] [place] [address] Antonio Riggins MD [address] [place] [address] documented as of this encounter Procedures Procedure Name Priority Date/Time Associated Diagnosis Comments DEXA BONE DENSITY Routine 06/29/2024 3:52 PM EST documented in this encounter Results * DEXA bone density (06/29/2024 3:52 PM EST) Anatomical Region Laterality Modality Body Radiographic Sari ging Barbie Sidhujennifer SET UP OPERATOR IMG DXA PROCEDURES Final Result documented in this encounter Visit Diagnoses Not on filedocumented in this encounter Additional Health Concerns Assessment Noted Time PHQ-9 Depression Total Score: 0 03/28/20 11:00 AM EST documented as of this encounter Care Teams Real Estate Portfolio Manager Relationship Specialty Start Date End Date Antonio Riggins MD [address] [place] [address] PCP - General Family Medicine 10/21/22 Antonio Riggins MD [address] [place] [address] PCP - Jaycee DAVIS 11/25/23 Delmar Bowen MA [address] [place] [address] Family Medicine 04/18/24 documented as of this encounter
--- OUTSIDE RECORDS SUMMARY | 2024-10-10 14:31 | XMS_ITS | Encounter Summary ---
Author Organization [facility] Address [address] [facility] [place] [address] Care Team Providers Care Fixed Wing Pilot Name Role Phone Antonio Riggins MD Primary Care Provider [phone] Antonio Riggins MD Unavailable Delmar Bowen MA Unavailable Encounter Details Date Type Department Care Team (Late st Contact Info) Description 06/05/2024 Orders Only [facility] [address] [place] [address] Barbie Dhaliwal PARKS WORKER [address] [place] [address] Social History Tobacco Use Types Packs/Day Years [...] often do you attend chur ch or latter-day services? Never 09/26/2023 Do you belong to any clubs o r organizations such as mu-ism groups, unions, fraternal or athletic groups, or [...] Recorded Patient Health Questionnaire-2 Score 0 03/28/2024 [facility] Occupat ional Health - Occupational [...] place to sleep or slept in a group home (including now)? No 09/26/2023 Comments Unknown Sex [...] [address] [facility] [address] [place] [address] Analisa Mireles MD [address] [facility] [address] [place] [address] 04/03/2025 1:00 PM EST Office Visit [facility] [address] [place] [address] Antonio Riggins MD [address] [place] [address] documented as of this encounter Visit Diagnoses Not on filedocumented in this encounter Additional Health Concerns Assessment Noted Time PHQ-9 Depression Total Score: 0 03/28/20 11:00 AM EST documented as of this encounter Care Teams Fixed Wing Pilot Relationship Specialty Start Date End Date Antonio Riggins MD [address] [place] [address] PCP - General Family Medicine 10/21/22 Antonio Riggins MD [address] [place] [address] PCP - Jaycee DAVIS 11/25/23 Delmar Bowen MA [address] [place] [address] Family Medicine 04/18/24 documented as of this encounter
--- OUTSIDE RECORDS SUMMARY | 2024-10-10 14:31 | XMS_ITS | Encounter Summary ---
Author Organization [facility] Address [address] [place] [address] Care Team Providers Care Weigher Bulker Name Role Phone Antonio Riggins MD Primary Care Provider Antonio Riggins MD Unavailable Sonam Gloria LPN Unavailable Delmar Bowen MA Unavailable [phone] Encounter Details Date Type Department Care Team (Late Contact Info) Description 06/24/2023 Clinisync Result Encounter [facility] External Department Unsolicited Antonio Riggins MD [address] [place] [phone] Social History Tobacco Use Types Packs/Day Years [...] Upcoming Encounters Date Type Department Care Team ([facility] Contact Info) Description 12/20/2024 11:20 AM EDT Office Visit [facility] [address] [facility] [address] [place] [phone] Analisa Mireles MD [address] [facility] [address] [place] [address] 04/03/2025 1:00 PM EST Office Visit [facility] [address] [place] [address] Antonio Riggins MD [address] [place] [address] documented as of this encounter Procedures Procedure Name Priority Date/Time Associated Diagnosis Comments MM TOMOSYNTHESIS SCREENING BI 06/24/2023 3:38 PM EST documented in this encounter Results * MM TOMOSYNTHESIS SCREENING BI (06/24/2023 3:38 PM EST) Anatomical Region Laterality Modality Other 06/24/2023 3:38 PM EST Narrative 06/24/2023 3:39 PM EST The [address] [address] Mammography Report Signed Patient: ERICA CHACON MR#: [id number] : 1955 Acct:[id number] Age/Sex: 67 / F ADM Date: 06/15/23 Loc: MAMMO Attending Dr: Antonio Riggins M.D. Ordering Physician: Antonio Riggins M.D. Results: Date of Service: 06/15/23 Follow Up: Procedure(s): MM tomosynthesis screening BI Accession Number(s): [id number] cc: Antonio Riggins M.D. Patient Name: ERICA CHACON MR#: [id number] : 1955 Exam Date: 06/15/2023 Ordering Doctor: [...] Treatments None Family Cancers None LOCATION: The [facility] BREAST COMPOSITION: Scattered areas fibroglandular [...] Signed By: 06/24/23 1539 DD/ 1538 TD/TT: Co Teacher: Procedure Note Radiology, Radiologist, - 06/24/2023 [place] [address] Mammography Report Signed Patient: ERICA CHACON AMR#: [id number] : 5Acct:[id number] Age/Sex: 67 / FADM Date: 06/15/23 Loc: MAMMO Attending Dr: Antonio Riggins M.D. Ordering Physician: Antonio Riggins M.D.Results: Date of Service: 06/15/23Follow Up: Procedure(s): MM tomosynthesis screening BI Accession Number(s): [id number] cc: Antonio Riggins M.D. Patient Name: ERICA CHACON MR#: [id number] : 1955 Exam Date: 06/15/2023 Ordering Doctor: [...] Treatments None Family Cancers None LOCATION: [facility] BREAST COMPOSITION: Scattered areas fibroglandular [...] M.D. Signed By:06/24/23 1539 DD/ 1538 TD/TT: Co Teacher: Antoino Riggins MD [facility] Final Result documented in this encounter Visit Diagnoses Not on filedocumented in this encounter Care Teams Weigher Bulker Relationship Specialty Start Date End Date Antonio Riggins MD [address] [place] [phone] PCP - General Family Medicine 10/21/22 Antonio Riggins MD [address] [place] [address] PCP - Jaycee DAVIS 11/25/23 Sonam Gloria LPN [address] [place] [address] Licensed Practical Nurse Family Medicine 04/17/2403/27 Delmar Bowen MA [address] [place] [address] Family Medicine 04/18/24 documented as of this encounter
--- OUTSIDE RECORDS SUMMARY | 2024-10-10 14:31 | XMS_ITS | Referral Summary ---
Author Organization [facility] Address [address] [place] [address] Care Team Providers Care Laboratory Technology Teacher Name Role Phone Antonio Riggins MD Primary Care Provider [phone] Encounters Date Type Department Care Team Description 10/10/2024 2:15 PM EDT Office Visit [facility] [address] [place] [address] Jaime Gonzalez MD Pericardial effusion (Primary Dx); Abnormal CT scan, chest; HTN (hypertension), benign; Chronic heart failure with preserved ejection fraction (CMS/HCC) 09/06/2024 Orders Only [facility] [address] [place] [address] Jessica Rolon MA Pericardial effusion; SALAZAR (dyspnea on exertion) 09/06/2024 2:15 PM EDT Office Visit [facility] [address] [place] [address] Jaime Gonzalez MD Centrilobular emphysema [...] 30.0-30.9,adult 10/10/2024 Bronchiolectasis 09/13/2024 Chronic sinusitis 09/13/2024 assisted current use of inhaled steroid 025 Type [...] 10/10/2024 2:04 PM EDT Plan of Treatment Not on file Insurance [employer] Care Teams Laboratory Technology Teacher Relationship Specialty Start Date End Date Antonio Riggins MD [address] [place] [address] PCP - General Family Medicine 09/06/24
--- OUTSIDE RECORDS SUMMARY | 2024-10-10 14:31 | XMS_ITS | Encounter Summary ---
Author Organization [facility] Address [address] [place] [address] Care Team Providers Care Chain Person Name Role Phone Antonio Riggins MD Primary Care Provider [phone] Antonio Riggins MD Unavailable Delmar Bowen MA Unavailable [phone] Encounter Details Date Type Department Care Team (Late st Contact Info) Description 10/06/2024 Patient Outreach [facility] [address] [place] [phone] Delmar Bowen MA [address] [place] [address] Social History Tobacco Use Types Packs/Day Years [...] often do you attend chur ch or confucianism services? Never 09/26/2023 Do you belong to any clubs o r organizations such as worship groups, unions, fraternal or athletic groups, or [...] Recorded Patient Health Questionnaire-2 Score 0 03/28/2024 [facility] - [...] place to sleep or slept in a half-way (including now)? No 09/26/2023 Comments Unknown Sex and Gender Information Value Date Recorded Sex Assigned at Not on file Legal Sex Female 4:12 PM EDT Gender Identity Not on file Sexual Orientation Not on file documented as of this encounter Progress Notes * Delmra Bowen MA - 10/06/2024 1:50 PM EDT Pt contacted for outreach. Pt had stress test this morning that was ordered by her floral arranger. She is going to go this week to get labs done that PCP ordered. Pt cont to watch her diet and is consistently taking her Metformin. Last A!C was 6.7. Pt denies anyincreased thirst, hunger or urination. Pt states her breathing is doing well. She is taking the OsCal without issue. Pt denied any med refills needed. Will reach out to pt again in a few months. Pt aware to call with any issues in the mean time. documented in this encounter Plan of Treatment Upcoming Encounters Date Type Department Care Team (Late st Contact Info) Description 12/20/2024 11:20 AM EDT Office Visit [facility] [address] [facility] 130 [place] [address] Analisa Mireles MD 112 [facility] 130 [place] [address] 04/03/2025 1:00 PM EST Office Visit [facility] [address] [place] [address] Antonio Riggins MD [address] [place] [address] documented as of this encounter Visit Diagnoses Diagnosis Type 2 diabetes mellitus without complication, without long-term current use of insulin (HCC)- Primary HTN (hypertension), benign Essential hypertension, benign documented in this encounter Additional Health Concerns Assessment Noted Time PHQ-9 Depression Total Score: 0 03/28/20 24 11:00 AM EST documented as of this encounter Care Teams Chain Person Relationship Specialty Start Date End Date Antonio Riggins MD [address] [place] [phone] PCP - General Family Medicine 10/21/22 Antonio Riggins MD [address] [place] [phone] PCP - Jaycee DAVIS 11/25/23 Delmar Bowen MA [address] [place] [address] Family Medicine 04/18/24 documented as of this encounter
--- OUTSIDE RECORDS SUMMARY | 2024-10-10 14:31 | XMS_ITS | Encounter Summary ---
Author Organization [facility] Address [address] [place] [address] Care Team Providers Care Local Telephone Operator Name Role Phone Antonio Riggins MD Primary Care Provider [phone] Antonio Riggins MD Unavailable Sonam Gloria LPN Unavailable Delmar Bowen MA Unavailable [phone] Encounter Details Date Type Department Care Team (Late st Contact Info) Description 04/17/2024 Orders Only [facility] [address] [place] [phone] Unallocated, [facility] Provider, [address] [place], [place] [phone] Social History Tobacco Use Types Packs/Day Years [...] often do you attend chur ch or orthodox services? Never 09/26/2023 Do you belong to [...] Recorded Patient Health Questionnaire-2 Score 0 03/28/2024 [facility] - [...] place to sleep or slept in a [place] [facility] [place] [facility] (including now)? No 09/26/2023 Comments Unknown Sex [...] Visit [facility] [address] [facility] [address] [place] [address] Analisa Mireles MD [address] [facility] [address] [place] [address] 04/03/2025 1:00 PM EST Office Visit [facility] [address] [place] [phone] Antonio Riggins MD [address] [place] [address] documented as of this encounter Procedures Procedure [...] documented as of this encounter Care Teams Local Telephone Operator Relationship Specialty Start Date End Date Antonio Riggins MD [address] [place] [address] PCP - General Family Medicine 10/21/22 Antonio Riggins MD [address] [place] [address] PCP - [place] 11/25/23 Sonam Gloria LPN [address] [place] [address] Licensed Practical Nurse Family Medicine 04/17/2403/27 Delmar Bowen MA [address] [place] [address] Family Medicine 04/18/24 documented as of this encounter
--- OUTSIDE RECORDS SUMMARY | 2024-10-10 14:32 | XMS_ITS | Clinical Summary ---
Author Organization [facility] Healthcare Address [address] [place] [address] Care Team Providers Care Accounts Payable Supervisor Name Role Phone Antonio Riggins MD Primary Care Provider [phone] Antonio Riggins MD Unavailable Delmar Bowen MA Unavailable [phone] Allergies No known active allergies Medications aspirin [...] mg) by mouth Daily 30 tablet 11 025 2025 Active losartan (Cozaar) 50 MG tabletIndications :Essential hypertension, benign TAKE 1 TABLET BY MOUTH DAILY 30 tablet 11 025 Active levothyroxine (Synthroid, Levoxyl) 112 MCG tabletIndications :Postoperative hypothyroidism TAKE 1 TABLET BY MOUTH IN THE MORNING BEFORE MEALS 30 tablet 11 025 Active Oyster Shell Calcium 500 MG [...] and follow with pulmonology. 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 025 Nicotine [...] of the risks of continued smoking: stroke, [place], all forms of cancer, lung disease, and [...] hospitalization for hypoxia Does follow with dr haed Current meds: trelegy, albuterol prn, flonase, Is [...] Encounters Date Type Department Care Team Description 10/09/2024 Orders Only [facility] [address] [place] [place] [address] Darinel Joya MD 10/06/2024 Clinisync Result Encounter [facility]OMS External Department Unsolicited Provider, Generic External Data 10/06/2024 Clinisync Result Encounter NOMS External Department Unsolicited Provider, Generic External Data 10/06/2024 Patient Outreach [facility] [address] [place] [address] Delmar Bowen MA 10/05/2024 Orders Only [facility] [address] [place] [address] Antonio Riggins MD 09/28/2024 2:00 PM EDT Office Visit [facility] [address] [place] [address] Antonio Riggins MD Type 2 diabetes mellitus without complication, without long-term current use of insulin (HCC) (Primary Dx); HTN (hypertension), benign ; Bronchiolectasis (HCC); Centrilobular emphysema (HCC) 09/28/2024 Bamboo flowsheet [facility] [address] [place] [address] Antonio Riggins MD 09/25/2024 Travel 09/19/2024 9:20 AM EDT Office Visit [facility] [address] [place] [address] Analisa Mireles MD Abnormal positron emission tomography (PET) scan (Primary Dx); Chronic tonsillitis 09/19/2024 Bamboo flowsheet [facility] [address] [place] [address] Analisa Mireles MD 09/19/2024 Travel 09/05/2024 Orders Only [facility] [address] [place] [address] Alis Head DO 09/05/2024 Clinisync Result Encounter NOMS External Department Unsolicited Provider, Generic External Data 08/25/2024 Refill [facility] [address] [place] [address] Antonio Riggins MD Essential hypertension, benign ; Postoperative hypothyroidism ; Type 2 diabetes mellitus without complication, without long-term current use of insulin ([facility]) 08/17/2024 Refill [facility] [address] [place] [address] Barbie Dhaliwal, RAVINDRA Type 2 diabetes mellitus without complication, without long-term current use of insulin ([facility]) 08/11/2024 Clinisync Result Encounter [facility]OMS External Department Unsolicited Provider, Generic External Data 07/10/2024 Clinisync Result Encounter NOMS External Department Unsolicited Provider, Generic External Data from Last 3 Months Immunizations Immunization Administration [...] History Relation Name Comments Cancer Brother Huber Garciauscglenroye Lung cancer Brother Huber Edwards Drug abuse Daughter Alysha Castillo Heart disease Father Patricio Deuschle Heart failure Father Patricio Deuschle Hypertension Father Patricio Deuschle Diabetes Maternal Grandmother [place] Arthritis Mother Becka Deuschle Cancer Mother Becka Deuschle Cervical cancer Mother Becka Deuschle Coronary artery disease Mother Becka Deuschle Diabetes Mother Becka Deuschle Emphysema Mother Becka Deuschle Heart disease Mother Becka Deuschle Stroke Mother Becka Deuschle Asthma Son Pablito Henley Relation Name Status Comments Brother Huber Garciauschle Daughter Alysha Castillo Alive Father Patricio Deuschle Maternal Grandmother Jazz Alfred Mother Becka Edwards Son Pablito Henley Alive Social History Tobacco [...] often do you attend chur ch or restoration services? Never 09/26/2023 Do you belong to any clubs o r organizations such as anglican groups, unions, fraternal or athletic groups, or [...] Recorded Patient Health Questionnaire-2 Score 0 03/28/2024 [facility] - Occupational [...] place to sleep or slept in a prison (including now)? No 09/26/2023 Comments Unknown Sex [...] [facility] [address] [facility] [address] [place] [address] Analisa Mireles MD [address] [facility] [address] [place] [address] 04/03/2025 1:00 PM EST Office Visit [facility] [address] [place] [address] Antonio Riggins MD [address] [place] [address] Health Maintenance Due Date Last Done Comments [...] Procedure Name Priority Date/Time Associated Diagnosis Comments STRESS TEST Routine 10/09/2024 2:04 PM EDT NM CHEL PERF SPECT REST STR 10/06/2024 3:12 PM EDT CA ECHO DOPPLER COMPLETE 10/06/2024 2:46 PM EDT NM PET W/ CT SCAN SKULL BASE [...] Recently Relevant to Health Maintenance Results * STRESS TEST (10/09/2024 2:04 PM EDT) Anatomical Region Laterality Modality Radiographic Sari ging Darinel Joya MD IMG XR PROCEDURES Final Resu lt * NM CHEL PERF SPECT REST STR (10/06/2024 3:12 PM EDT) Anatomical Region Laterality Modality Other 10/06/2024 3:12 PM EDT Narrative 10/06/2024 3:13 [place] [address] Nuclear Medicine Report Signed Patient: ERICA CHACON MR#: [id number] : 1955 Acct:[id number] Age/Sex: 69 / F ADM Date: 10/06/24 Loc: NM Attending Dr: Jaime El M.D. Ordering Physician: Jaime El M.D. Date of Service: 10/06/24 Procedure(s): NM chel perf SPECT rest str Accession Number(s): [id number] cc: Jaime El M.D.; Antonio Riggins M.D. Patient Name: ERICA CHACON MR#: [id number] : 1955 Exam Date: 10/06/2024 Ordering Doctor: [...] the study was pending per attending physician [facility]. For more details, please see separate cardiac [...] Signed By: 10/06/24 1513 DD/ 1512 TD/TT: Pool Attendant: Procedure Note Radiology, Radiologist, MD - 10/06/2024 [place] [address] Nuclear Medicine Report Signed Patient: ERICA CHACON#: [id number] : 5Acct:[id number] Age/Sex: 69 / FADM Date: 10/06/24 Loc: NM Attending Dr: Jaime El M.D. Ordering Physician: Jaime El M.D. Date of Service: 10/06/24 Procedure(s): NM chel perf SPECT rest str Accession Number(s): [id number] cc: Jaime El M.D.; Antonio Riggins M.D. Patient Name: ERICA CHACON MR#: [id number] : 1955 Exam Date: 10/06/2024 Ordering Doctor: [...] the study was pending per attending physician [facility]. For more details,please see separate cardiac stress [...] M.D. Signed By:10/06/24 1513 DD/ 1512 TD/TT: Pool Attendant: us Generic External Data Provider [facility] Final Result * CA ECHO DOPPLER COMPLETE (10/06/2024 2:46 PM EDT) Anatomical Region Laterality Modality Other 10/06/2024 2:46 PM EDT Narrative 10/06/2024 2:48 PM EDT The [address] [address] Cardiology Report Signed Patient: ERICA CHACON MR#: [id number] : 1955 Acct:[id number] Age/Sex: 69 / F ADM Date: 10/06/24 Loc: NM Attending Dr: Jaime El M.D. Ordering Physician: Jaime El M.D. Date of Service: 10/06/24 Procedure(s): CA echo doppler complete Accession Number(s): [id number] cc: Jaime El M.D.; Antonio Riggins M.D. Patient Name: ERICA CHACON MR#: [id number] : 1955 Exam Date: 10/06/2024 Ordering Doctor: [...] Signed By: 10/06/24 1448 DD/ 1446 TD/TT: Pool Attendant: Procedure Note Radiology, Radiologist, - 10/06/2024 [place] [address] Cardiology Report Signed Patient: ERICA CHACON AMR#: [id number] : 5Acct:[id number] Age/Sex: 69 / FADM Date: 10/06/24 Loc: NM Attending Dr: Jaime El M.D. Ordering Physician: Jaime El M.D. Date of Service: 10/06/24 Procedure(s): CA echo doppler complete Accession Number(s): [id number] cc: Jaime El M.D.; Antonio Riggins M.D. Patient Name: ERICA CHACON MR#: [id number] : 1955 Exam Date: 10/06/2024 Ordering Doctor: [...] M.D. Signed By:10/06/24 1448 DD/ 1446 TD/TT: Pool Attendant: us Generic External Data Provider [facility] Final Result * NM PET W/ CT SCAN SKULL BASE TO MIDTHIGH (09/05/2024 2:22 PM EDT) Anatomical Region Laterality Modality Radiographic Sari ging Alis Head DO IMG XR PROCEDURES Final Result * PET/CT skull base to mid thigh (09/05/2024 9:12 AM EDT) Anatomical Region Laterality Modality Body Computed Tomogra phy 09/05/2024 9:12 AM EDT Narrative 09/05/2024 9:14 [place] [address] PET Report Signed Patient: ERICA CHACON MR#: [id number] : 1955 Acct:[id number] Age/Sex: 69 / F ADM Date: 09/04/24 Loc: PETCT Attending Dr: Alis Head D.O. Ordering Physician: Alis Head D.O. Date of Service: 09/04/24 Procedure(s): PET skull to mid thigh Accession Number(s): [id number] cc: Antonio Riggins M.D.; Ails Head D.O. [address] [address] Patient Name: ERICA CHACON MRN: [id number] date: 1955 Sex: F Assigned Patient Location: PETCT Current Patient Location: Accession/Order Number: [id number] Exam Date: 09/05/2024 08:48 Report Date: 09/05/2024 09:12 At the request of: ALIS HEAD Procedure: PET skull to mid thigh PET/CT [...] Ordaz M.D. 09/05/2024 9:12 AM Dictation Location: [place] [address] Electronically authenticated by: [id number] Y Date: 09/05/2024 09:12 Dictated By: Mary Ordaz M.D. Signed By: 09/05/24 0914 DD/ 1 TD/TT: Pool Attendant: Procedure Note Radiology, Radiologist, - 09/05/[address] [address] PET Report Signed Patient: ERICA CHACON#: [id number] : 5Acct:[id number] Age/Sex: 69 / FADM Date: 09/04/24 Loc: PETCT Attending Dr: Alis Head D.O. Ordering Physician: Alis Head D.O. Date of Service: 09/04/24 Procedure(s): PET skull to mid thigh Accession Number(s): [id number] cc: Antonio Riggins M.D.; Alis Head D.O. The [address] [address] Patient Name: ERICA CHACON MRN: [facility]:[id number] date: 1955 Sex: F Assigned Patient Location: PETCT Current Patient Location: Accession/Order Number: [id number] Exam Date: 09/05/2024 08:48 Report Date: 09/05/2024 [...] Ordaz M.D. 09/05/2024 9:12 AM Dictation Location: [place] [address] Electronically authenticated by: [id number] Y Date: 9:12 Dictated By: Mary Ordaz M.D. Signed By:09/05/2414 DD/ 1 TD/TT: Pool Attendant: Generic External Data Provider IMG CT PROCEDURES Final Result * CT CHEST WO CON (08/11/2024 3:03 PM EDT) Anatomical Region Laterality Modality Other 08/11/2024 3:03 PM EDT Narrative 08/11/2024 3:06 [place] [address] CT Scan Report Signed Patient: ERICA CHACON MR#: [id number] : 1955 Acct:[id number] Age/Sex: 69 / F ADM Date: 08/11/24 Loc: CT Attending Dr: Alis Head D.O. Ordering Physician: Alis Head D.O. Date of Service: 08/11/24 Procedure(s): CT chest wo con Accession Number(s): [id number] cc: Antonio Riggins M.D. The [place] [id number] Patient Name: ERICA CHACON MRN: [facility]:[id number] date: 1955 Sex: F Assigned Patient Location: CT Current Patient Location: CT Accession/Order Number: [id number] Exam Date: 08/11/2024 14:51 Report Date: 08/11/2024 [...] Jovanny Swanson M.D.08/11/2024 3:03 PM Dictation Location: [place] [address] Electronically authenticated by: [id number] Y Date: 08/11/2024 15:03 Dictated By: Jovanny Swanson D.O. Signed By: 08/11/24 1506 DD/ 1503 TD/TT: Pool Attendant: Procedure Note Radiology, Radiologist, - 08/11/[address] [address] [address] Scan Report Signed Patient: ERICA CHACON#: [id number] : 5Acct:[id number] Age/Sex: 69 / FADM Date: 08/11/24 Loc: CT Attending Dr: Alis Head D.O. Ordering Physician: Alis Head D.O. Date of Service: 08/11/24 Procedure(s): CT chest wo con Accession Number(s): [id number] cc: Antonio Riggins M.D. The [place] [address] Patient Name: ERICA CHACON MRN: [id number] date: 1955 Sex: F Assigned Patient Location: CT Current Patient Location: CT Accession/Order Number: [id number] Exam Date: 08/11/2024 14:51 Report Date: 08/11/2024 [...] nodularity. LUNGS: Scattered lung scarring. Emphysema. Scattered uouu-wb-zijiuznbufdgp involving the right lung. PLEURAL EFFUSION: None [...] Jovanny Swanson M.D.08/11/2024 3:03 PM Dictation Location: [place] [address] Electronically authenticated by: [id number] Y Date: 5:03 Dictated By: Jovanny Swanson D.O. Signed By:08/11/24 1506 DD/ 1503 TD/TT: Pool Attendant: Generic External Data Provider [facility] Final Result * CT LUNG SCREENING LOW DOSE (07/10/2024 1:51 PM EDT) Anatomical Region Laterality Modality Other 07/10/2024 1:51 PM EDT Narrative 07/10/2024 1:54 PM EDT [address] [address] [address] Scan Report Signed Patient: ERICA CHACON MR#: [id number] : 1955 Acct:[id number] Age/Sex: 68 / F ADM Date: 07/10/24 Loc: CT Attending Dr: Alis Head D.O. Ordering Physician: Alis Head D.O. Date of Service: 07/10/24 Procedure(s): CT lung screening low-dose Accession Number(s): [id number] cc: Antonio Riggins M.D. [address] [address] Patient Name: ERICA CHACON MRN: [id number] date: 1955 Sex: F Assigned Patient Location: CT Current Patient Location: CT Accession/Order Number: [id number] Exam Date: 07/10/2024 13:47 Report Date: 07/10/2024 [...] Painting Jr., D.O.07/10/2024 1:51 PM Dictation Location: [place] [address] Electronically authenticated by: [id number] Y Date: 07/10/2024 13:51 Dictated By: Bob Painting M.D. Signed By: 07/10/24 1354 DD/ 1351 TD/TT: Pool Attendant: Procedure Note Radiology, Radiologist, - 07/10/2024 [place] [address] CT Scan Report Signed Patient: ERICA CHACON AMR#: [id number] : 1955ct:[id number] Age/Sex: 68 / FADM Date: 07/10/24 Loc: CT Attending Dr: Alis Head D.O. Ordering Physician: Alis Head D.O. Date of Service: 07/10/24 Procedure(s): CT lung screening low-dose Accession Number(s): [id number] cc: Antonio Riggins M.D. The [place] [address] Patient Name: ERICA CHACON MRN: [id number] date: 1955 Sex: F Assigned Patient Location: CT Current Patient Location: CT Accession/Order Number: [id number] Exam Date: 07/10/2024 13:47 Report Date: 07/10/2024 [...] conditions. Impression dictated by: Bob Painting Jr., DTjOTj07/10/2024 1:51 PM Dictation Location: [place] [address] Electronically authenticated by: [id number] Y Date: 3:51 Dictated By: Bob Painting M.D. Signed By:07/10/24 1354 DD/ 1351 TD/TT: Pool Attendant: Generic External Data Provider [facility] Final Result * MM TOMOSYNTHESIS SCREENING BI (06/24/2023 3:38 PM EST) Anatomical Region Laterality Modality Other 06/24/2023 3:38 PM EST Narrative 06/24/2023 3:39 PM EST The [address] [address] Mammography Report Signed Patient: ERICA CHACON MR#: [id number] : 1955 Acct:[id number] Age/Sex: 67 / F ADM Date: 06/15/23 Loc: MAMMO Attending Dr: Antonio Riggins M.D. Ordering Physician: Antonio Riggins M.D. Results: Date of Service: 06/15/23 Follow Up: Procedure(s): MM tomosynthesis screening BI Accession Number(s): [id number] cc: Antonio Riggins M.D. Patient Name: ERICA CHACON MR#: [id number] : 1955 Exam Date: 06/15/2023 Ordering Doctor: [...] Treatments None Family Cancers None LOCATION: [facility] BREAST COMPOSITION: Scattered areas fibroglandular density. [...] Signed By: 06/24/23 1539 DD/ 1538 TD/TT: Pool Attendant: Procedure Note Radiology, RadiologistMD - 06/24/2023 [place] [address] Mammography Report Signed Patient: ERICA CHACON AMR#: [id number] : 5Acct:[id number] Age/Sex: 67 / FADM Date: 06/15/23 Loc: MAMMO Attending Dr: Antonio Riggins M.D. Ordering Physician: Antonio Riggins M.D.Results: Date of Service: 06/15/23Follow Up: Procedure(s): MM tomosynthesis screening BI Accession Number(s): [id number] cc: Antonio Riggins M.D. Patient Name: ERICA CHACON MR#: [id number] : 1955 Exam Date: 06/15/2023 Ordering Doctor: [...] Treatments None Family Cancers None LOCATION: [facility] BREAST COMPOSITION: Scattered areas fibroglandular density. [...] M.D. Signed By:06/24/23 1539 DD/ 1538 TD/TT: Pool Attendant: Antonio Riggins MD [facility] Final Result * COLONOSCOPY DIAGNOSTIC (05/31/2023 12:07 PM EST) Anatomical Region Laterality Modality Radiographic Sari ging Antonio Riggins MD IMG XR PROCEDURES Final Result from Last 3 Months or Most Recently Relevant to Health Maintenance Insurance [employer] Care Teams Accounts Payable Supervisor Relationship Specialty Start Date End Date Antonio Riggins MD [address] [place] [address] PCP - General Family Medicine 10/21/22 Antonio Riggins MD [address] [place] [address] PCP - Jaycee DAVIS 11/25/23 Delmar Bowen MA [address] [place] [address] Family Medicine 04/18/24
--- OUTSIDE RECORDS SUMMARY | 2024-10-10 14:32 | XMS_ITS | Encounter Summary ---
Author Organization [facility] Address [address] [place] [address] Care Team Providers Care Social Professionals Name Role Phone Antonio Riggins MD Primary Care Provider [phone] Antonio Riggins MD Unavailable Delmar Bowen MA Unavailable [phone] Encounter Details Date Type Department Care Team (Late st Contact Info) Description 09/28/2024 Bamboo flowsheet [facility] [address] [place] [address] Antonio Riggins MD [address] [place] [address] Social History Tobacco Use Types Packs/Day Years [...] often do you attend chur ch or yazidi services? Never 09/26/2023 Do you belong to any clubs o r organizations such as christianity groups, unions, fraternal or athletic groups, or [...] Recorded Patient Health Questionnaire-2 Score 0 03/28/2024 [facility] - [facility]ational Stress Questionnaire Answer Date [...] place to sleep or slept in a nursing home (including now)? No 09/26/2023 Comments Unknown [...] [address] [place] [address] Analisa Mireles MD [address] [place] [address] 04/03/2025 1:00 PM EST Office Visit [facility] [address] [place] [address] Antonio Riggins MD [address] [place] [address] documented as of this encounter Visit Diagnoses Not on filedocumented in this encounter Additional Health Concerns Assessment Noted Time PHQ-9 Depression Total Score: 0 03/28/20 11:00 AM EST documented as of this encounter Care Teams Social Professionals Relationship Specialty Start Date End Date Antonio Riggins MD [address] [place] [address] PCP - General Family Medicine 10/21/22 Antonio Riggins MD [address] [place] [address] PCP - Jaycee DAVIS 11/25/23 Delmar Bowen MA [address] [place] [address] Family Medicine 04/18/24 documented as of this encounter
--- OUTSIDE RECORDS SUMMARY | 2024-10-10 14:32 | XMS_ITS | Encounter Summary ---
Author Organization [facility] Address [address] [place] [address] Care Team Providers Care Scrap Baler Name Role Phone Antonio Riggins MD Primary Care Provider [phone] Antonio Riggins MD Unavailable Delmar Bowen MA Unavailable [phone] Encounter Details Date Type Department Care Team (Late st Contact Info) Description 10/09/2024 Orders Only [facility] [address] [place] [address] Darinel Joya MD [address] [place] [address] Social History Tobacco Use Types Packs/Day Years [...] often do you attend chur ch or anglican services? Never 09/26/2023 Do you belong to any clubs o r organizations such as oriental orthodox groups, unions, fraternal or athletic groups, [...] Recorded Patient Health Questionnaire-2 Score 0 03/28/2024 [facility] - Occupational Stress Questionnaire Answer [...] place to sleep or slept in a longterm (including now)? No 09/26/2023 Comments Unknown Sex [...] Visit [facility] [address] [facility] [address] [place] [address] Analisa Mireles MD [address] [facility] [address] [place] [address] 04/03/2025 1:00 PM EST Office Visit [facility] [address] [place] [address] Antonio Riggins MD [address] [place] [address] documented as of this encounter Procedures Procedure Name Priority Date/Time Associated Diagnosis Comments STRESS TEST Routine 10/09/2024 2:04 PM EDT documented in this encounter Results * STRESS TEST (10/09/2024 2:04 PM EDT) Anatomical Region Laterality Modality Radiographic Sari ging Darinel Joya MD IMG XR PROCEDURES Final Resu lt documented in this encounter Visit Diagnoses Not on filedocumented in this encounter Additional Health Concerns Assessment Noted Time PHQ-9 Depression Total Score: 0 03/28/20 24 11:00 AM EST documented as of this encounter Care Teams Scrap Baler Relationship Specialty Start Date End Date Antonio Riggins MD [address] [place] [address] PCP - General Family Medicine 10/21/22 Antonio Riggins MD [address] [place] [address] TIM - Jaycee DAVIS 11/25/23 Delmar Bowen MA [address] [place] [address] Family Medicine 04/18/24 documented as of this encounter
--- OUTSIDE RECORDS SUMMARY | 2024-10-10 14:32 | XMS_ITS | Encounter Summary ---
Author Organization [facility] Address [address] [place] [address] Care Team Providers Care Typing Teacher Name Role Phone Ottoniel Fuchs MD Primary Care Provider [phone] Reason for Visit * Reason Comments Medication Refill Encounter Details Date Type Department Care Team (Late st Contact Info) Description 11/13/2016 Refill [facility] [address] [place] [address] Ottoniel Fuchs MD [address] [place] [address] Medication Refill Social History Tobacco Use Types [...] on filedocumented in this encounter Care Teams Typing Teacher Relationship Specialty Start Date End Date Ottoniel Fuchs MD PCP - General Family Medicine 11/29/14 02/07/20 documented as of this encounter
--- OUTSIDE RECORDS SUMMARY | 2024-10-10 14:32 | XMS_ITS | Encounter Summary ---
Author Organization [facility] Address [address] [place] [address] Care Team Providers Care Jewelry Sales Representative Name Role Phone Antonio Riggins MD Primary Care Provider [phone] Antonio Riggins MD Unavailable Delmar Bowen MA Unavailable [phone] Encounter Details Date Type Department Care Team (Late st Contact Info) Description 09/05/2024 Orders Only [facility] [address] [place] [address] Sukh Lovelace, DO [address] [place] [address] Social History Tobacco Use Types Packs/Day Years [...] often do you attend chur ch or oriental orthodox services? Never 09/26/2023 Do you belong to any clubs o r organizations such as synagogue groups, unions, fraternal or athletic groups, or [...] Recorded Patient Health Questionnaire-2 Score 0 03/28/2024 [facility] - Occupational Stress Questionnaire Answer Date [...] EDT Office Visit [facility] [address] [facility] [address] [place] [address] Analisa Mireles MD 112 [facility] [address] [place] [address] 04/03/2025 1:00 PM EST Office Visit [facility] [address] [place] [address] Antonio Riggins MD [address] [place] [address] documented as of this encounter Procedures Procedure [...] documented as of this encounter Care Teams Jewelry Sales Representative Relationship Specialty Start Date End Date Antonio Riggins MD [address] [place] [address] PCP - General Family Medicine 10/21/22 Antonio Riggins MD [address] [place] [address] PCP - Jaycee DAVIS 11/25/23 Delmar Bowen MA [address] [place] [address] Family Medicine 04/18/24 documented as of this encounter
--- OUTSIDE RECORDS SUMMARY | 2024-10-10 14:32 | XMS_ITS ---
Author Organization [facility] Address [address] [place] [address] Care Team Providers Care Yarn Dry Room Worker Name Role Phone Antonio Riggins MD Primary Care Provider [phone] Antonio Riggins MD Unavailable Delmar Bowen MA Unavailable [phone] Chronic Care Management (CCM) Status:Enrolled (Active) Start date:04/17/2024 Enrollment date:04/17/2024 Enrollment reason:Identified as hospital admit Overview Please assess for Care Management needs. 04/17/24, 3:31 PM - Sonam Gloria LPN- Patient gives verbal consent to be enrolled in CCM Program and understands there could be a bill for this service. Case Team Name Relationship Phone Delmar Bowen MA(Responsible Staff) [phone] Continued Care and Services Coordination
--- OUTSIDE RECORDS SUMMARY | 2024-10-10 14:32 | XMS_ITS | Clinical Summary ---
Author Organization [facility] Address [address] [place] [address] Care Team Providers Care Director Consumer Name Role Phone Unavailable Primary Care Provider [...] and Family Once a week 12/29/2018 Attends [employer] Never 12/29 Active Member of Clubs [...] Answer Date Recorded PHQ-2 Score 0 07/27/2018 [facility] - Occupational Stress [...]
--- OUTSIDE RECORDS SUMMARY | 2024-10-10 14:32 | XMS_ITS | Encounter Summary ---
Author Organization [facility] Address [address] [place] [address] Care Team Providers Care Sports Physician Name Role Phone Antonio Riggins MD Primary Care Provider [phone] Antonio Riggins MD Unavailable Delmar Bowen MA Unavailable [phone] Encounter Details Date Type Department Care Team (Late st Contact Info) Description 10/05/2024 Orders Only [facility] [address] [place] [address] Antonio Riggins MD [address] [facility] [place] [id number] Social History Tobacco Use Types Packs/Day Years [...] any clubs o r organizations such as adventism groups, unions, fraternal or athletic groups, or [...] Recorded Patient Health Questionnaire-2 Score 0 03/28/2024 [facility] - Occupational Stress Questionnaire Answer Date Recorded [...] [address] [place] [address] Analisa Mireles MD [address] [place] [address] 04/03/2025 1:00 PM EST Office Visit [facility] [address] [place] [id number] Antonio Riggins MD [address] [place] [phone] documented as of this encounter Procedures Procedure [...] documented as of this encounter Care Teams Sports Physician Relationship Specialty Start Date End Date Antonio Riggins MD [address] [place] [phone] PCP - General Family Medicine 6/28/23 Antonio Riggins MD [address] [place] [address] PCP - Jaycee DAVIS 11/25/23 Delmar Bowen MA [address] [place] [address] Family Medicine 04/18/24 documented as of this encounter
[2024-10-10 15:06] LABS: Estimated Average Glucose 146 mg/dL; Glycohemoglobin A1C 6.7 % (4.5-6.2)
== END 2024-10-10 14:26 | disposition home or self-care (01) ==
LOC: LAB 14:29
PROVIDERS: PCP Family Medicine; Visit Provider Family Medicine
DX: E11.9 Type 2 diabetes mellitus without complications (principal)
CPT/HCPCS: 36415; 83036

== ENCOUNTER 2025-01-03 09:54 | Outpatient (OUT) | payer MEDICARE, SELFPAY ==
--- NOTE | 2025-01-03 10:00 | CA_ITS ---
Patient Name: ERICA CHACON MR#: [id number] : 1955 Exam Date: 01/03/2025 Ordering Doctor: DR ELAYNE EL M.D. ECHOCARDIOGRAM REPORT PROCEDURE: CA ECHO LIMITED INDICATIONS: Pericardial effusion, heart failure with preserved ejection fraction COMPARISON: None. DESCRIPTION: Limited ECHOCARDIOGRAM Real-time transthoracic echocardiography with 2D and M-mode performed. QUALITY: Technical quality was good. Limited echocardiogram per physician order. LEFT VENTRICLE: Normal chamber size. Moderate concentric left ventricular hypertrophy. Calculated left ventricular ejection fraction is 71%. LV EF: Global left ventricular systolic function is hyperdynamic; visually estimated ejection fraction is 65-70%. No significant wall motion abnormalities. LEFT ATRIUM: Normal chamber size. RIGHT ATRIUM: Normal chamber size. RIGHT VENTRICLE: Normal chamber size. Normal systolic function. TRICUSPID VALVE: Normal mobility and thickness. MITRAL VALVE: Normal mobility and thickness. AORTIC VALVE: Normal trileaflet appearance. AORTIC ROOT: Normal diameter and appearance. Ascending aorta is normal in size.>> PULMONIC VALVE: Normal thickness and mobility. PERICARDIUM: Anterior free space; prominent pericardial fat pad versus trivial effusion. No effusion is seen posteriorly. IVC: Collapses with inspiration. CONCLUSION: 1. Global left ventricular systolic function is hyperdynamic; visually estimated ejection fraction is 65-70% 2. Normal right ventricular size and systolic function 3. Moderate left ventricular hypertrophy 4. Anterior free space; prominent fat pad versus trivial effusion A limited echocardiogram was performed Adult Echocardiography Procedure Report Left Ventricle LVEDD (3.7 - 5.6 cm): 3.67 cm LVESD (2.2 - 4.0 cm): 2.93 cm LVIVS thickness (0.6 - 1.2 cm): 1.27 cm LVPW thickness (0.5 - 1.0 cm): 1.35 cm LVOT Diameter 1.97 cm Left Ventricular Ejection Fraction: 71.09 % Left Atrium LA Volume Index (2D A2C): 30.01 ml/m2 Left Atrium Systolic Dimension: 4.14 cm Mitral Valve Right Ventricle Aorta AO Root Diam: 2.39 cm Ascending Ao Diam: 3.01 cm Aortic Valve Tricuspid Valve Pulmonic Valve Right Atrium Right Atrium Systolic Pressure: 19.23 ml, 19.23 ml Dictated by: Elayne El M.D. on 01/04/2025 at 09:57 Approved by: Elayne El M.D. on 01/04/2025 at 10:01
--- OUTSIDE RECORDS SUMMARY | 2025-01-03 10:00 | XMS_ITS | CCD ---
Author Organization [facility] CliniSyoh Care Team Providers Care Machine Group Leader Name Role Phone Niraula, Lupillo Unavailable Unavailable PROVIDER, UNKNOWN Unavailable Unavailable JEF, OTTONIEL B Unavailable Unavailable [place], Ottoniel Unavailable Unavailable PROVIDER, UNKNOWN Unavailable Unavailable Jef, Ottoniel Unavailable Unavailable DOZIER, DEEPIKAH Unavailable Unavailable PROVIDER, UNKNOWN Unavailable Unavailable Jef, Ottoniel Unavailable Unavailable FIGUEROA, MASROOR Unavailable Unavailable PROVIDER, UNKNOWN Unavailable Unavailable Jef, Ottoniel Unavailable Unavailable FIGUEROA, MASROOR Unavailable Unavailable PROVIDER, UNKNOWN Unavailable Unavailable [place], Ottoniel Unavailable Unavailable [place], Ottoniel Unavailable Unavailable PROVIDER, UNKNOWN Unavailable Unavailable Jef, Ottoniel Unavailable Unavailable FIGUEROA, MASROOR Unavailable Unavailable PROVIDER, UNKNOWN Unavailable Unavailable [place], Ottoniel Unavailable Unavailable NIRAULA, LUPILLO Unavailable Unavailable Jef, Ottoniel Unavailable Unavailable Tsivitse Eddi Unavailable Unavailable PROVIDER, UNKNOWN Unavailable Unavailable Jef, Ottoniel Unavailable Unavailable Jef, Ottoniel Primary Care Provider [phone] DR HANDY KEATING Consulting Unavailable JAYDONERECarlos, DR [...] ALIS Consulting Unavailable HOWIE CAMPO Consulting Unavailable GEMBUSRODRIGUEZ Consulting Unavailable SONIYA NARVAEZ Consulting Unavailable Ottoniel Fuchs MD Primary Care Provider [phone] ANTONIO HOPKINS Primary Care Physician MD Kale Hanna Attending Provider Kale Hanna Attending Unavailable Kale Hanna Admitting Unavailable ISIS, Kale Gonzalez Attending Unavailable ANTONIO HOPKINS Referring Unavailable Kale HANNA Attending Unavailable Kale HANNA Attending Unavailable Antonio Hopkins MD Primary Care Provider Antonio Hopkins MD Unavailable Delmar Bowen MA Unavailable Unavailable Delmar Bowen MA Unavailable JAIME GONZALEZ Attending Unavailable JAIME GONZALEZ Attending Unavailable HECTOR ARELLANO Attending Unavailable SONIDO, ALIS P Referring Unavailable ANTONIO HOPKINS Attending Unavailable ANTONIO HOPKINS Attending Unavailable GIANNIHBARBIE ANDERSON Attending Unavailable HECTOR ARELLANO Attending Unavailable Allergies Allergy Classification Reported Allergen(s) Allergy Type Date of Onset Reaction(s) Facility (1 source) No Known Medication Allergies; Translations: [No Known Medication Allergies] Propensity to adverse reactions (disorder) [facility] Repository Medications Current Medications Medication Drug Class(es) Dates Sig (Normalized) Sig (Original) [id number] 200 actuat albuterol 0.09 mg/actuat metered dose inhaler (20 sources) beta2-Adrenergic Agonist Start: 07-26-2023 take 2 puff(s) by inhalation every four hours for wheezing albuterol HFA 90 mcg/act inhaler Indications: Bronchiectasis without complication (HCC) Inhale 2 puffs every [...] 09/09/2018 Active amLODIPine 5 mg oral tablet (20 sources) Dihydropyridine Calcium Channel Jovita Start: 07-26-2023 End: 06-22-2025 take 1 tablet by mouth once daily amLODIPine (Norvasc) 5 MG tablet Indications: Essential hypertension, benign Take 1 tablet (5 mg) by mouth Daily 30 tablet 11 06/22/2024 06/22/2025 Active Start: 04-09-2023 take 1 tablet by shelby th once daily amLODIPine 5 mg Tab 5 mg = 1 tab(s), Oral, Daily, Refills(s) 0 Start Date: 04/09/23 Status: Ordered aspirin 81 mg delayed release oral tablet (20 sources) Platelet Aggregation Inhibitor, Nonsteroidal Anti-inflammatory Drug Start: 04-09-2023 take 1 tablet by mouth once daily aspirin 81 mg Oral EC Tab 81 mg = 1 tab(s), Oral, Daily, Refills(s) 0 Start Date: 04/09/23 Status: Ordered take 1 tablet by mouth once ekaterina y aspirin 81 MG tablet Take 81 mg by mouth daily 0 Active calcium carbonate 1250 mg oral tablet (12 sources) Oyster Shell Jefe cium 500 MG tablet every 12 (twelve) hours Active Calcium Carbonate / Vitamin D (1 source) Start: 05-21-2010 Calcium Carbonate-Vitamin D (CALCIUM + D PO) Take by mouth daily 0 05/21/2010 Active fluticasone propionate 0.05 mg/actuat metered dose nasal spray (20 sources) Corticosteroid Start: 04-09-2023 Flonase 0.05 mg/inh Hiawatha 100 mcg, Nasal, Daily, Refill(s) 0 Start [...] / vilanterol 0.025 mg/actuat dry powder inhaler (20 sources) Anticholinergic, Corticosteroid, beta2-Adrenergic Agonist Fluticasone-Umeclidi n-Vilant [...] Active levothyroxine sodium 0.112 mg oral tablet (20 sources) l-Thyroxine Start: 08-28-2024 take 1 tablet by mouth before mealtime levothyroxine (Synthroid, Levoxyl) 112 MCG tablet Indications: Postoperative hypothyroidism TAKE 1 TABLET BY MOUTH IN [...] Active losartan potassium 50 mg oral tablet (20 sources) Angiotensin 2 Receptor Jovita Start: 08-28-2024 take 1 tablet by mouth once daily losartan (Cozaar) 50 MG tablet Indications: Essential hypertension, benign TAKE 1 TABLET BY MOUTH [...] hydrochloride 500 mg extended release oral tablet (17 sources) Biguanide Start: 09-28-2024 take 1 tablet [...] 1 06/12/2024 Active Multiple Vitamin (MULTI-DAY PO) (20 sources) Multiple Vitamin (MULTI-DAY PO) Take by [...] Active sodium chloride 9 mg/ml inhalation solution (20 sources) sodium chloride 0.9 % nebulizer solution Take 3 mL by nebulization if needed for wheezing Active sodium chloride 0.9% Inj 10 mL Vial (1 source) Start: 04-09-2023 sodium chloride 0.9% Inj 10 mL Vial 1 inh, NEB, TID, Refill(s) 0 Start Date: 04/09/23 Status: Ordered Problems Active Problems Problem Classification Problem Date Documented Date Episodic/Chronic Acute and chronic tonsillitis (6 sources) Chronic tonsillitis; Translations: [Chronic tonsillitis] Onset: 12-20-2024 09-19-2024 Chronic Chronic obstructive pulmonary disease and bronchiectasis (20 sources) Emphysema, unspecified; Translations: [Bronchiectasis, uncomplicated] Onset: 12-25-2016 Resolved: 09-28-2024 12-25-2016 Chronic Complications of surgical procedures or medical care (20 sources) Postprocedural hypothyroidism; Translations: [Postoperative hypothyroidism] Onset: 12-13-2014 12-25-2015 Chronic Congestive heart failure; nonhypertensive (2 sources) Chronic diastolic (congestive) heart failure; Translations: [Chronic diastolic (congestive) heart failure] Onset: 10-10-2024 Chronic Coronary atherosclerosis and other heart disease (2 sources) 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; Translations: [Athscl heart disease of [place] tribe coronary artery w/o ang pctrs] Onset: 03-08-2018 Chronic Deficiency and other anemia (2 sources) Anemia, unspecified; Translations: [Anemia, unspecified] Onset: 04-04-2018 Episodic Diabetes mellitus without complication (18 sources) Type 2 diabetes mellitus without complication; [...] Onset: 09-22-2022 Episodic Other aftercare (1 source) inpatient auditor (current) use of aspirin; Translations: [SENIOR CARE CURRENT USE OF ASPIRIN] Onset: 09-22-2022 Episodic Other aftercare (5 sources) Other support services manager (current) drug therapy; Translations: [OTH SENIOR CARE CURRENT DRUG THERAPY] Onset: 10-30-2021 Episodic Other [...] Episodic Other nutritional; endocrine; and metabolic disorders (4 sources) Body mass index 30+ - obesity; Translations: [Body mass index (BMI) 30.0-30.9, adult] Onset: 10-10-2024 04-21-2023 Chronic Other nutritional; endocrine; and metabolic disorders (1 source) Obesity 04-21-2023 Chronic Other screening for suspected conditions (not mental disorders or infectious disease) (2 sources) Abnormal findings on diagnostic imaging of other specified body structures; Translations: [Abnormal findings on diagnostic imaging of other specified body structures] Onset: 10-10-2024 Chronic Other screening for suspected conditions (not mental disorders or infectious disease) (20 sources) Encounter for screening mammogram for malignant neoplasm of breast; Translations: [Screening for malignant neoplasm of colon done] Onset: 02-22-2018 Episodic Other upper respiratory disease (20 sources) Allergic rhinitis due to pollen; Translations: [Allergic rhinitis due to pollen] Onset: 09-27-2023 09-27-2023 Chronic Other upper respiratory infections (12 sources) Chronic sinusitis; Translations: [Chronic sinusitis, unspecified] Onset: 09-13-2024 09-13-2024 Chronic Residual codes; unclassified (2 sources) Asymptomatic menopausal state; Translations: [Asymptomatic menopausal state] Onset: 02-22-2018 Episodic Respiratory failure; insufficiency; arrest (adult) (4 sources) Chronic hypoxemic respiratory failure; Translations: [Chronic respiratory failure with hypoxia] Onset: 10-10-2024 04-09-2023 Chronic Screening and history of mental health and substance abuse codes (1 source) Ex-tobacco user 04-21-2023 Episodic Substance-related disorders (20 sources) Nicotine dependence, cigarettes, uncomplicated; Translations: [Tobacco [...] Unclassified (1 source) Patient encounter status 04-21-2023 Unclassified (1 source) Other pericardial effusion (noninflammatory); Translations: [Other pericardial effusion (noninflammatory)] Onset: 10-10-2024 Past or Other Problems Problem Classification Problem Date Documented Da te Episodic/Chronic Diabetes mellitus without complication (20 sources) Prediabetes; Translations: [Prediabetes] Onset: 12-29-2018 Resolved: 06-12-2024 12-29-2018 Episodic Mood disorders (20 sources) Mood disorders Onset: 03-28-2024 03-28-2024 Other aftercare (20 sources) Long-term current use of drug therapy; Translations: [Other support services manager (current) drug therapy] Onset: 04-01-2023 04-01-2023 Episodic Other aftercare (12 sources) Long-term current use of inhaled steroid; Translations: [nursing home (current) use of inhaled steroids] Onset: 09-13-2024 09-13-2024 Episodic Other bone disease and musculoskeletal deformities (20 sources) Osteopenia; Translations: [Other specified disorders of [...] 12-25-2016 09-03-2017 Episodic Other lower respiratory disease (20 sources) Nodule of lung; Translations: [Solitary pulmonary nodule] Onset: 09-03-2017 02-08-2022 Episodic Other nervous system disorders (12 sources) Critical illness myopathy; 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] Onset: 09-13-2024 Resolved: 09-28-2024 09-13-2024 Chronic Poisoning by other medications and drugs (1 source) Angiotensin-conver ting-enzyme inhibitor adverse reaction; Translations: [CARYL-inhibitor cough] Onset: 12-13-2014 Resolved: 12-25-2016 12-25-2016 Episodic Residual codes; unclassified (20 sources) Menopause present; Translations: [Asymptomatic menopausal state] Onset: 04-27-2024 04-27-2024 Episodic Residual codes; unclassified (20 sources) Tobacco user; Translations: [Tobacco use] Onset: 04-27-2024 04-27-2024 Episodic Unclassified (1 source) Other pericardial effusion (noninflammatory); Translations: [Other pericardial effusion (noninflammatory)] Onset: 10-10-2024 Results Test Name Value Interpretation Reference Range Facility MLR HEMOGLOBIN A1Con 025 Glucose [Mass/Vol] 146 mg/dL [facility] HbA1c (Bld) [Mass fraction] 6.7 % High 4.5 - 6.2 % [facility] Comment on above: ADA RECOMMENDED LIMI T 4.0 - 6.0 ADA THERAPEUTIC TARGET < 7.0 ACTION SUGGESTED > 7.0 Interpretation and review of laboratory results Abnormal [facility] Healthcare Office Visiton 10-10-2024 Follow-up visit [id number] Akil Chacon 1955 F Date Provider Department Center 10/10/2024 271-JAIME GONZALEZ BH CARD [facility] Family History Problem Relation Age of Onset Coronary artery disease Mother Heart failure Father Atrial fibrillation Brother Family Status - Relation Status Age at Mother Father Sister Alive Brother Alive Level of Service:42483 [place] OFFICE/OUTPATIENT ESTABLISHED MOD MDM 30 MIN Normal [facility] CA ECHO DOPPLER COMPLETEon 0 10-06-2024 [facility] [address] [place] [address] Cardiology Report Signed Patient: AKIL CHACON MR#: [id number] : 1955 Acct:[id number] Age/Sex: 69 / F ADM Date: 10/06/24 Loc: [place] Attending Dr: Jaime Gonzalez M.D. Ordering Physician: Jaime Gonzalez M.D. Date of Service: 10/06/24 Procedure(s): CA echo doppler complete Accession Number(s): [id number] cc: Jaime Gonzalez M.D.; Antonio Hopkins M.D. Patient Name: AKIL CHACON MR#: [id number] : 1955 Exam Date: 10/06/2024 Ordering Doctor: DR JAIME GONZALEZ M.D. ECHOCARDIOGRAM REPORT PROCEDURE: CA ECHO DOPPLER [...] 35.53 ml, 35.53 ml Dictated by: Jaime Gonzalez M.D. on 10/06/2024 at 14:42 Approved by: Jaime Gonzalez M.D. on 10/06/2024 at 14:46 Dictated By: Dhruv Gonzalez (more content not included)... [facility] Radiology, Radiologist, MD - 10/06/2024 [place] [address] Cardiology Report Signed Patient: AKIL CHACON MR#: [id number] : 1955 Acct:[id number] Age/Sex: 69 / F ADM Date: 10/06/24 [place]: [place] Attending Dr: Jaime Gonzalez M.D. Ordering Physician: Jaime Gonzalez M.D. Date of Service: 10/06/24 Procedure(s): CA echo doppler complete Accession Number(s): [id number] cc: Jaime Gonzalez M.D.; Antonio Hopkins M.D. Patient Name: AKIL CHACON MR#: [id number] : 1955 Exam Date: 10/06/2024 Ordering Doctor: DR JAIME GONZALEZ M.D. ECHOCARDIOGRAM REPORT PROCEDURE: CA ECHO DOPPLER [...] 35.53 ml, 35.53 ml Dictated by: Jaime Gonzalez M.D. on 10/06/2024 at 14:42 Approved by: Jaime Gonzalez M.D. on 10/06/2024 at 14:46 Dictated By: Jaime Gonzalez M.D. Signed By: 10/06/24 1448 DD/ 1446 TD/TT: Sand Cleaning Machine Operator: [facility] Radiology Study observation (narrative) [facility] CA ECHO DOPPLER COMPLETEOrde red By: Radiologist Radiology on 10-06-2024 [facility] Work Phone: NM MACKENZIE PERF SPECT REST STRon 10-06-2024 [place] [address] Nuclear Medicine Report Signed Patient: AKIL CHACON MR#: [id number] : 1955 Acct:[id number] Age/Sex: 69 / F ADM Date: 10/06/24 Loc: [place] Attending Dr: Jaime Gonzalez M.D. Ordering Physician: Jaime Gonzalez M.D. Date of Service: 10/06/24 Procedure(s): NM mackenzie perf SPECT rest str Accession Number(s): [id number] cc: Jaime Gonzalez M.D.; Antonio Hopkins M.D. Patient Name: AKIL CHACON MR#: [id number] : 1955 Exam Date: 10/06/2024 Ordering Doctor: DR JAIME GONZALEZ M.D. RADIOLOGY REPORT PROCEDURE: NM MACKENZIE PERF SPECT REST STR COMPARISON: None. INDICATIONS: [...] the study was pending per attending physician [facility]. For more details, please see separate [...] significant transient ischemic dilatation Dictated by: Jaime Gonzalez M.D. on 10/06/2024 at 15:09 Approved by: Jaime Gonzalez M.D. on 10/06/2024 at 15:12 Dictated By: Jaime Gonzalez M.D. Signed By: 10/06/24 1513 DD/ 1512 TD/TT: Sand Cleaning Machine Operator: [facility] Radiology, Radiologist, MD - 10/06/2024 [place] [address] Nuclear Medicine Report Signed Patient: AKIL CHACON MR#: [id number] : 1955 Acct:[id number] Age/Sex: 69 / F ADM Date: 10/06/24 Loc: [place] Attending Dr: Jaime Gonzalez M.D. Ordering Physician: Jaime Gonzalez M.D. Date of Service: 10/06/24 Procedure(s): NM mackenzie perf SPECT rest str Accession Number(s): [id number] cc: Jaime Gonzalez M.D.; Antonio Hopkins M.D. Patient Name: AKIL CHACON MR#: [id number] : 1955 Exam Date: 10/06/2024 Ordering Doctor: DR JAIME GONZALEZ M.D. RADIOLOGY REPORT PROCEDURE: NM MACKENZIE PERF SPECT REST STR COMPARISON: None. INDICATIONS: [...] the study was pending per attending physician [facility]. For more details, please see separate [...] significant transient ischemic dilatation Dictated by: Jaime Gonzalez M.D. on 10/06/2024 at 15:09 Approved by: Jaime Gonzalez M.D. on 10/06/2024 at 15:12 Dictated By: Jaime Gonzalez M.D. Signed By: 10/06/24 1513 DD/ 1512 TD/TT: Sand Cleaning Machine Operator: [facility] Radiology Study observation (narrative) [facility] NM MACKENZIE PERF SPECT REST STROr dered By: Radiologist Radiology on 10-06-2024 [facility] Work Phone: Office Visiton 09-06-2024 Follow-up visit [id number] Akil Chacon 1955 F Date Provider Department Center 09/06/2024 271-JAIME GONZALEZ CARD [facility] Family History Problem Relation Age of Onset Coronary artery disease Mother Heart failure Father Atrial fibrillation Brother Family Status - Relation Status Age at Mother Father Sister Alive Brother Alive Level of Service:03587 [place] OFFICE/OUTPATIENT NEW MODERATE MDM 45 MINUTES Normal [facility] PET+CT Bone from skull base to mid-thigh W 18F-NaF Emelina 09-05-2024 [place] [address] PET Report Signed Patient: AKIL CHACON MR#: [id number] : 1955 Acct:[id number] Age/Sex: 69 / F ADM Date: 09/04/24 Loc: PETCT Attending Dr: Alis Head D.O. Ordering Physician: Alis Head D.O. Date of Service: 09/04/24 Procedure(s): PET skull to mid thigh Accession Number(s): [id number] cc: Antonio Hopkins M.D.; Alis Head D.O. [address] [address] Patient Name: AKIL CHACON MRN: [id number] date: 1955 Sex: F Assigned Patient Location: PETCT Current Patient Location: Accession/Order Number: [id number] Exam Date: 09/05/2024 08:48 Report Date: 09/05/2024 [...] Ordaz M.D. 09/05/2024 9:12 AM Dictation Location: [place] [address] Electronically authenticated by: [id number] Date: 09/05/2024 09:12 Dictated By: Mary Ordaz M.D. Signed By: 09/05/2414 DD/ 1 TD/TT: Sand Cleaning Machine Operator: [facility] Radiology, Radiologist, - 09/05/2024 [place] [address] PET Report Signed Patient: AKIL CHACON MR#: [id number] : 1955 Acct:[id number] Age/Sex: 69 / F ADM Date: 09/04/24 Loc: PETCT Attending Dr: Alis Head D.O. Ordering Physician: Alis Head D.O. Date of Service: 09/04/24 Procedure(s): PET skull to mid thigh Accession Number(s): [id number] cc: Antonio Hopkisn M.D.; Alis Head D.O. The [address] [address] Patient Name: AKIL CHACON MRN: [facility]:[id number] date: 1955 Sex: F Assigned Patient Location: PETCT Current Patient Location: Accession/Order Number: [id number] Exam Date: 09/05/2024 08:48 Report Date: 09/05/2024 [...] Ordaz M.D. 09/05/2024 9:12 AM Dictation Location: [place] [address] Electronically authenticated by: [id number] Y Date: 09/05/2024 09:12 Dictated By: Mary Ordaz M.D. Signed By: 09/05/24913 DD/ 1 TD/TT: Sand Cleaning Machine Operator: [facility] Radiology Study observation (narrative) [facility] PET+CT Bone from skull base to mid-thigh W 18F-NaF IVOrdered By: Radiologist Radiology on 09-05-2024 [facility] [email or web address] Work Phone: CT CHEST WO CONon 08-11-2024 [place] [address] CT Scan Report Signed Patient: AKIL CHACON MR#: [id number] : 1955 Acct:[id number] Age/Sex: 69 / F ADM Date: 08/11/24 Loc: CT Attending Dr: Alis Head D.O. Ordering Physician: Alis Head D.O. Date of Service: 08/11/24 Procedure(s): CT chest wo con Accession Number(s): [id number] cc: Antonio Hopkins M.D. [place] [id number] Patient Name: AKIL CHACON MRN: [id number] date: 1955 Sex: F Assigned Patient Location: CT Current Patient Location: CT Accession/Order Number: [id number] Exam Date: 08/11/2024 14:51 Report Date: 08/11/2024 [...] Jovanny Swanson M.D.08/11/2024 3:03 PM Dictation Location: [place] [address] Electronically authenticated by: [id number] Y Date: 08/11/2024 15:03 Dictated By: Jovanny Swanson D.O. Signed By: 08/11/24 1506 DD/ 1503 TD/TT: Sand Cleaning Machine Operator: [facility] Radiology, Radiologist, MD - 08/11/[address] [address] [address] Scan Report Signed Patient: AKIL CHACON MR#: [id number] : 1955 Acct:[id number] Age/Sex: 69 / F ADM Date: 08/11/24 Loc: CT Attending Dr: Alis Head D.O. Ordering Physician: Alis Head D.O. Date of Service: 08/11/24 Procedure(s): CT chest wo con Accession Number(s): [id number] cc: Antonio Hopkins M.D. The [address] [address] Patient Name: AKIL CHACON MRN: [id number] date: 1955 Sex: F Assigned Patient Location: CT Current Patient Location: CT Accession/Order Number: [id number] Exam Date: 08/11/2024 14:51 Report Date: 08/11/2024 15:03 At the request of: ALIS HEAD Procedure: CT chest wo con CT Chest [...] Jovanny Swanson M.D.08/11/2024 3:03 PM Dictation Location: [place] [address] Electronically authenticated by: [id number] Y Date: 08/11/2024 15:03 Dictated By: Jovanny Swanson D.O. Signed By: 08/11/24 1506 DD/ 1503 TD/TT: Sand Cleaning Machine Operator: [facility] Radiology Study observation (narrative) [facility] CT CHEST WO CONOrdered By: Carlos adiologist Radiology on 08-11-2024 [facility] Work Phone: ALL CBC WITH AUTO DIFFon BASOPHILS ABSOLUTE AUTO 0 [facility] Basophils/100 WBC (Bld) 0.4 % 0.2 - 2.0 % [facility] Eosinophils/100 WBC (Bld) 2.1 % 0.9 - 7.0 % [facility] Erythrocyte distribution width (RBC) [Ratio] 14 % 11.0 - 15.0 % [facility] Hematocrit (Bld) [Volume fraction] 45.2 % 36.0 - 48.0 % [facility] Hemoglobin (Bld) [Mass/Vol] 14.6 g/dL 12.0 - 16.0 g/dL [facility] IMMATURE GRANULOCYTES ABS AUTO 0.02 [facility] Immature granulocytes/100 WBC (Bld) 0.3 % 0.0 - 0.5 % [facility] Interpretation and review of laboratory results Abnormal [facility] LYMPHOCYTES ABSOLUTE AUTO 1.7 [facility] Lymphocytes/100 WBC (Bld) 22.9 % 20.5 - 60.0 % [facility] MCH (RBC) [Entitic mass] 30.7 pg 26.7 - 34.0 pg [facility] MCHC (RBC) [Mass/Vol] 32.3 g/dL 29.9 - 35.2 g/dL [facility] MCV (RBC) [Entitic vol] 95 fL 81.0 - 99.0 fL [facility] MONOCYTES ABSOLUTE AUTO 0.8 [facility] Monocytes/100 WBC (Bld) 10.4 % 1.7 - 12.0 % [facility] NEUTROPHILS ABSOLUTE AUTO 4.6 [facility] Neutrophils/100 WBC (Bld) 63.9 % 43.0 - 75.0 % [facility] Platelet mean volume (Bld) [Entitic vol] 9.1 fL Low 9.5 - 13.5 fL [facility] EO # 0.2 [facility] PLT 303 [facility] RBC 4.76 [facility] WBC 7.2 [facility] ALL HEMOGLOBINon 01-31-2024 Hemoglobin (Bld) [Mass/Vol] 14.6 g/dL 12.0 - 16.0 g/dL [facility] General Surgery Office/Clini c Noteon 06-14-2023 [...] 1 puff(s), Inhalation, Daily Flonase 0.05 mg/inh Hiawatha, 100 mcg, Nasal, Daily levothyroxine 112 mcg [...] 02/04/2021 Recorded 2023-04-09: [id number] patient seen 06/04/2023 [facility] Comment on above: Result Comment: Elec tronically [...] EC Tab) fluticasone nasal (Flonase 0.05 mg/inh Hiawatha) fluticasone-vilantero l (Breo Ellipta 100 mcg-25 mcg [...] Unchanged fluticasone nasal (Flonase 0.05 mg/ inh Hiawatha) 100 Microgram Nasal Inhalation Every day Unchanged [...] for choosing us for your care. Normal [facility] Reminderson 06-04-2023 Reminders - From: Tamia Price LPN To: [facility] - Clinical; Sent: 06/04/2023 14:05:05 EST Show up: 04/11/2033 07:00:00 EST Subject: colonoscopy recall Due Date/Time: 05/12/2033 07:00:00 EST Reminder/Recall Patient due for screening colonoscopy 05/12/2033. Normal [facility] Outside Colonoscopyon 2023 Outside Colonoscopy [id number] .00TIFF Normal [facility] Pathology Noteon 05-20-2023 Pathology Note [id number]#1. 00TIFF Normal [facility] Matthieu 05-12-2023 L Specimen: [id number] Received: 05/12/23 Status: BILLY [place] Num: [id number] Spec Type: Surgical Subm Dr: Kale Hanna MD FACS Tissues: A Colon Biopsy (SIGMOID POLYP) Procedures: HE/2, Gross/Micro L4 Age/ Patient Sex Location Account Attending Physician Akil Chacon 67/F LABELL [id number] Kale Hanna MD FACS SPEC NUM: [id number] RECD: 05/12/23 STATUS: BILLY CONNOLLYLorna NUM: [id number] DONIS: 05/12/[address] [facility] [address]: Kale Hanna MD FACS ENTERED: 05/12/23 [facility] [address]: Viv,Tania SPEC TYPE: Surgical DEPT: PERFECTO ORTIZ ORDERED: [...] in one cassette labeled A1. CPT Codes 50379 -------- -------- Specimen: [id number] Received: 05/12/23 Status: BILLY [place] Num: [id number] Spec Type: Surgical Subm Dr: Kale Hanna MD FACS Tissues: A Colon Biopsy (SIGMOID POLYP) Procedures: KEVIN/Josue, Fred/Olesya L4 -------- Patient: Akil Chacon [id number] (Continued) -------- Signed (signature on file) Ai Marquez MD 05/14/2353 [facility] Insurance Correspondenceon 0 05-05-2023 Insurance Correspondence [id number]#1 .00TIFF [facility] Consent for Procedure/Surger yon 04-23-2023 Consent for Procedure/Surgery [id number]#1 .00TIFF [facility] Facesheeton 04-22-2023 Facesheet [id number] 0 [id number]# 1.00TIFF [facility] Ambulatory Visit Summaryon 1 06-22-2022 Ambulatory Visit [...] EC Tab) fluticasone nasal (Flonase 0.05 mg/inh [place]) fluticasone-vilantero l (Breo Ellipta 100 mcg-25 mcg [...] Unchanged fluticasone nasal (Flonase 0.05 mg/ inh [place]) 100 Microgram Nasal Inhalation Every day Contact [...] for choosing us for your care. Normal [facility] Transfer Inon 04-06-2023 Transfer In [id number] 2 [id number]#1 .00TIFF Normal [facility] Physician Referralon 023 Physician Referral [id number] 2 [id number]#1 .00TIFF [facility] CBC AUTO DIFFon 09-23-2022 BASO # 0.0 103/ul Normal 0.0-0.1 [facility] Comment on above: Performed By: #### C YTO #### [facility] [address] [place] [address] Dr. Jayy Marquez Basophils/100 WBC (Bld) 0.4 % Normal 0.2-2.0 [facility] Comment on above: Performed By: #### C YTO #### [facility] [address] [address] [address] Jyay Marquez EO # 0.1 103/ul Normal 0.0-0.7 [facility] Comment on above: Performed By: #### C YTO #### [facility] [address] [place] [address] Dr. Jayy Marquez Eosinophils/100 WBC (Bld) 0.5 % Critically low 0.9-7.0 [facility] Comment on above: Performed By: #### C YTO #### [facility] [address] [address] [address] Jayy Marquez Erythrocyte distribution width (RBC) [Ratio] 13.1 % Normal 11.0-15.0 [facility] Comment on above: Performed By: #### C YTO #### [facility] [address] [address] [address] Jayy Marquez Hematocrit (Bld) [Volume fraction] 43.0 % Normal 36.0-48.0 [facility] Comment on above: Performed By: #### C YTO #### [facility] [address] [place] [address] Dr. Jayy Marquez Hemoglobin (Bld) [Mass/Vol] 13.9 g/dL Normal 12.0-16.0 [facility] Comment on above: Performed By: #### C YTO #### [facility] [address] [place] [address] Dr. Jayy Marquez IG # 0.04 10e3/ul Critically high 0.00-0.03 [facility] Comment on above: Performed By: #### C YTO #### [facility] [address] [address] [address] Jayy Marquez IG % 0.4 % Normal 0.0-0.5 [facility] Comment on above: Performed By: #### C YTO #### [facility] [address] [place] [address] Dr. Jayy Marquez LYMPH # 0.7 103/ul Critically low 1.2-3.8 [facility] Comment on above: Performed By: #### C YTO #### [facility] [address] [place] [address] Dr. Jayy Marquez Lymphocytes/100 WBC (Bld) 6.7 % Critically low 20.5-60.0 [facility] Comment on above: Performed By: #### C YTO #### [facility] [address] [address] [address] Jayy Marquez MANUAL DIFF REQ NO Normal [facility] Comment on above: Performed By: #### C YTO #### [facility] [address] [address] [address] Jayy Marquez MCH (RBC) [Entitic mass] 31.2 pg Normal 26.7-34.0 [facility] Comment on above: Performed By: #### C YTO #### [facility] [address] [place] [address] Dr. Jayy Marquez MCHC (RBC) [Mass/Vol] 32.3 g/dL Normal 29.9-35.2 [facility] Comment on above: Performed By: #### C YTO #### [facility] [address] [place] [address] Dr. Jayy Marquez MCV (RBC) [Entitic vol] 96.4 fL Normal 81.0-99.0 [facility] Comment on above: Performed By: #### C YTO #### [facility] [address] [place] [address] Dr. Jayy Marquez MONO # 0.9 103/ul Critically high 0.3-0.8 [facility] Comment on above: Performed By: #### C YTO #### [facility] [address] [place] [address] Dr. Jayy Marquez Monocytes/100 WBC (Bld) 8.2 % Normal 1.7-12.0 [facility] Comment on above: Performed By: #### C YTO #### [facility] [address] [place] [address] Dr. Jayy Marquez NEUT # 9.0 103/ul Critically high 1.4-6.5 [facility] Comment on above: Performed By: #### C YTO #### [facility] [address] [place] [address] Dr. Jayy Marquez Neutrophils/100 WBC (Bld) 83.8 % Critically high 43.0-75.0 [facility] Comment on above: Performed By: #### C YTO #### [facility] [address] [place] [address] Dr. Jayy Marquez Platelet mean volume (Bld) [Entitic vol] 10.4 fL Normal 9.5-13.5 [facility] Comment on above: Performed By: #### C YTO #### [facility] [address] [address] [address] Jayy Marquez PLT 232 103/ul Normal 150-450 [facility] Comment on above: Performed By: #### C YTO #### [facility] [address] [address] [address] Jayy Marquez RBC 4.46 106/ul Normal 4.20-5.40 [facility] Comment on above: Performed By: #### C YTO #### [facility] [address] [address] [address] Jayy Marquez WBC 10.7 103/ul Normal 4.0-11.0 [facility] Comment on above: Performed By: #### C YTO #### [facility] [address] [place] [address] Dr. Jayy Marquez PROF CHEM 8 (BAS METB)on Anion gap [Moles/Vol] 13.4 mmol/L Normal Th [facility] Comment on above: Performed By: #### B MP #### [facility] [address] [place] [address] Dr. Jayy Marquez Calcium [Mass/Vol] 9.1 mg/dL Normal 8.5-10.1 [facility] Comment on above: Performed By: #### B MP #### [facility] [address] [place] [address] Dr. Jayy Marquez Chloride [Moles/Vol] 100 mmol/L Normal 98-107 [facility] Comment on above: Performed By: #### B MP #### [facility] [address] [place] [address] Dr. Jayy Marquez CO2 [Moles/Vol] 27.2 mmol/L Normal 21.0-32.0 [facility] Comment on above: Performed By: #### B MP #### [facility] [address] [place] [address] Dr. Jayy Marquez Creatinine [Mass/Vol] 0.77 mg/dL Normal 0.55-1.02 [facility] Comment on above: Performed By: #### B MP #### [facility] [address] [address] [address] Jayy Marquez EGFR-AF DANISH >60 Normal >=60 [facility] Comment on above: Performed By: #### B MP #### [facility] [address] [address] [address] Jayy Marquez EGFR-NON AF DANISH >60 Normal >=60 [facility] Comment on above: Performed By: #### B MP #### [facility] [address] [address] [address] Jayy Marquez Glucose [Mass/Vol] 173 mg/dL Critically high 74-106 [facility] Comment on above: Performed By: #### B MP #### [facility] [address] [place] [address] Dr. Jayy Marquez Potassium [Moles/Vol] 4.6 mmol/L Normal 3.5-5.1 [facility] Comment on above: Performed By: #### B MP #### [facility] [address] [place] [address] Dr. Jayy Marquez Sodium [Moles/Vol] 136 mmol/L Normal 136-145 [facility] Comment on above: Performed By: #### B MP #### [facility] [address] [place] [address] Dr. Jayy Marquez Urea nitrogen [Mass/Vol] 16.0 mg/dL Normal 7.0-18.0 [facility] Comment on above: Performed By: #### B MP #### [facility] [address] [place] [address] Dr. Jayy Marquez Urea nitrogen/Creatinine [Mass ratio] 20.8 mg/mg Normal [facility] Comment on above: Performed By: #### B MP #### [facility] [address] [place] [address] Dr. Jayy Marquez XR CHEST 1 Von [...] ELENO FUENTES Date: 2022-09-23 14:29 Normal [facility] BNPon 09-22-2022 Natriuretic peptide B (Bld) [Mass/Vol] 243.0 pg/mL Normal <=900.0 [facility] Comment on above: Performed By: #### B MP, BNP, HSTROPN #### [facility] [address] [place] [address] Dr. Jayy Marquez CBC AUTO DIFFon 09-22-2022 BASO # 0.0 103/ul Normal 0.0-0.1 [facility] Comment on above: Performed By: #### C VDAGS #### [facility] [address] [place] [address] Dr. Jayy Marquez Basophils/100 WBC (Bld) 0.4 % Normal 0.2-2.0 [facility] Comment on above: Performed By: #### C VDAGS #### [facility] [address] [place] [address] Dr. Jayy Marquez EO # 0.0 103/ul Normal 0.0-0.7 [facility] Comment on above: Performed By: #### C VDAGS #### [facility] [address] [place] [address] Dr. Jayy Marquez Eosinophils/100 WBC (Bld) 0.0 % Critically low 0.9-7.0 [facility] Comment on above: Performed By: #### C VDAGS #### [facility] [address] [place] [address] Dr. Jayy Marquez Erythrocyte distribution width (RBC) [Ratio] 13.1 % Normal 11.0-15.0 [facility] Comment on above: Performed By: #### C VDAGS #### [facility] [address] [place] [address] Dr. Jayy Marquez Hematocrit (Bld) [Volume fraction] 42.7 % Normal 36.0-48.0 [facility] Comment on above: Performed By: #### C VDAGS #### [facility] [address] [place] [address] Dr. Jayy Marquez Hemoglobin (Bld) [Mass/Vol] 13.9 g/dL Normal 12.0-16.0 [facility] Comment on above: Performed By: #### C VDAGS #### [facility] [address] [place] [address] Dr. Jayy Marquez IG # 0.03 10e3/ul Normal 0.00-0.03 [facility] Comment on above: Performed By: #### C VDAGS #### [facility] [address] [place] [address] Dr. Jayy Marquez IG % 0.4 % Normal 0.0-0.5 [facility] Comment on above: Performed By: #### C VDAGS #### [facility] [address] [place] [address] Dr. Jayy Marquez LYMPH # 0.4 103/ul Critically low 1.2-3.8 [facility] Comment on above: Performed By: #### C VDAGS #### [facility] [address] [place] [address] Dr. Jayy Marquez Lymphocytes/100 WBC (Bld) 5.5 % Critically low 20.5-60.0 [facility] Comment on above: Performed By: #### C VDAGS #### [facility] [address] [place] [address] Dr. Jayy Marquez MANUAL DIFF REQ NO Normal [facility] Comment on above: Performed By: #### C VDAGS #### [facility] [address] [place] [address] Dr. Jayy Marquez MCH (RBC) [Entitic mass] 31.2 pg Normal 26.7-34.0 [facility] Comment on above: Performed By: #### C VDAGS #### [facility] [address] [place] [address] Dr. Jayy Marquez MCHC (RBC) [Mass/Vol] 32.6 g/dL Normal 29.9-35.2 [facility] Comment on above: Performed By: #### C VDAGS #### [facility] [address] [address] [address] Jayy Marquez MCV (RBC) [Entitic vol] 96.0 fL Normal 81.0-99.0 [facility] Comment on above: Performed By: #### C VDAGS #### [facility] [address] [place] [address] Dr. Jayy Marquez MONO # 0.3 103/ul Normal 0.3-0.8 [facility] Comment on above: Performed By: #### C VDAGS #### [facility] [address] [place] [address] Dr. Jayy Marquez Monocytes/100 WBC (Bld) 3.5 % Normal 1.7-12.0 [facility] Comment on above: Performed By: #### C VDAGS #### [facility] [address] [place] [address] Dr. Jayy Marquez NEUT # 6.9 103/ul Critically high 1.4-6.5 [facility] Comment on above: Performed By: #### C VDAGS #### [facility] [address] [place] [address] Dr. Jayy Marquez Neutrophils/100 WBC (Bld) 90.2 % Critically high 43.0-75.0 [facility] Comment on above: Performed By: #### C VDAGS #### [facility] [address] [place] [address] Dr. Jayy Marquez Platelet mean volume (Bld) [Entitic vol] 9.8 fL Normal 9.5-13.5 [facility] Comment on above: Performed By: #### C VDAGS #### [facility] [address] [place] [address] Dr. Jayy Marquez PLT 207 103/ul Normal 150-450 [facility] Comment on above: Performed By: #### C VDAGS #### [facility] [address] [place] [address] Dr. Jayy Marquez RBC 4.45 106/ul Normal 4.20-5.40 [facility] Comment on above: Performed By: #### C VDAGS #### [facility] [address] [address] [address] Jayy Marquez WBC 7.6 103/ul Normal 4.0-11.0 [facility] Comment on above: Performed By: #### C VDAGS #### [facility] [address] [address] [address] Jayy Marquez BASO # 0.0 103/ul Normal 0.0-0.1 [facility] Comment on above: Performed By: #### C BC #### [facility] [address] [address] [address] Jayy Marquez Basophils/100 WBC (Bld) 0.4 % Normal 0.2-2.0 [facility] Comment on above: Performed By: #### C BC #### [facility] [address] [place] [address] Dr. Jayy Marquez EO # 0.1 103/ul Normal 0.0-0.7 [facility] Comment on above: Performed By: #### C BC #### [facility] [address] [place] [address] Dr. Jayy Marquez Eosinophils/100 WBC (Bld) 1.4 % Normal 0.9-7.0 [facility] Comment on above: Performed By: #### C BC #### [facility] [address] [place] [address] Dr. Jayy Marquez Erythrocyte distribution width (RBC) [Ratio] 13.2 % Normal 11.0-15.0 [facility] Comment on above: Performed By: #### C BC #### [facility] [address] [place] [address] Dr. Jayy Marquez Hematocrit (Bld) [Volume fraction] 45.5 % Normal 36.0-48.0 [facility] Comment on above: Performed By: #### C BC #### [facility] [address] [place] [address] Dr. Jayy Marquez Hemoglobin (Bld) [Mass/Vol] 15.3 g/dL Normal 12.0-16.0 [facility] Comment on above: Performed By: #### C BC #### [facility] [address] [place] [address] Dr. Jayy Marquez IG # 0.03 10e3/ul Normal 0.00-0.03 [facility] Comment on above: Performed By: #### C BC #### [facility] [address] [place] [address] Dr. Jayy Marquez IG % 0.3 % Normal 0.0-0.5 [facility] Comment on above: Performed By: #### C BC #### [facility] [address] [place] [address] Dr. Jayy Marquez LYMPH # 1.3 103/ul Normal 1.2-3.8 [facility] Comment on above: Performed By: #### C BC #### [facility] [address] [place] [address] Dr. Jayy Marquez Lymphocytes/100 WBC (Bld) 13.8 % Critically low 20.5-60.0 [facility] Comment on above: Performed By: #### C BC #### [facility] [address] [place] [address] Dr. Jayy Marquez MANUAL DIFF REQ NO Normal [facility] Comment on above: Performed By: #### C BC #### [facility] [address] [place] [address] Dr. Jayy Marquez MCH (RBC) [Entitic mass] 32.0 pg Normal 26.7-34.0 [facility] Comment on above: Performed By: #### C BC #### [facility] [address] [place] [address] Dr. Jayy Marquez MCHC (RBC) [Mass/Vol] 33.6 g/dL Normal 29.9-35.2 [facility] Comment on above: Performed By: #### C BC #### [facility] [address] [place] [address] Dr. Jayy Marquez MCV (RBC) [Entitic vol] 95.2 fL Normal 81.0-99.0 [facility] Comment on above: Performed By: #### C BC #### [facility] [address] [address] [address] Jayy Marquez MONO # 1.3 103/ul Critically high 0.3-0.8 [facility] Comment on above: Performed By: #### C BC #### [facility] [address] [address] [address] Jayy Marquez Monocytes/100 WBC (Bld) 13.7 % Critically high 1.7-12.0 [facility] Comment on above: Performed By: #### C BC #### [facility] [address] [place] [address] Dr. Jayy Marquez NEUT # 6.7 103/ul Critically high 1.4-6.5 [facility] Comment on above: Performed By: #### C BC #### [facility] [address] [place] [address] Dr. Jayy Marquez Neutrophils/100 WBC (Bld) 70.4 % Normal 43.0-75.0 [facility] Comment on above: Performed By: #### C BC #### [facility] [address] [place] [address] Dr. Jayy Marquez Platelet mean volume (Bld) [Entitic vol] 9.6 fL Normal 9.5-13.5 [facility] Comment on above: Performed By: #### C BC #### [facility] [address] [place] [address] Dr. Jayy Marquez PLT 218 103/ul Normal 150-450 [facility] Comment on above: Performed By: #### C BC #### [facility] [address] [place] [address] Dr. Jayy Marquez RBC 4.78 106/ul Normal 4.20-5.40 [facility] Comment on above: Performed By: #### C BC #### [facility] [address] [place] [address] Dr. Jayy Marquez WBC 9.5 103/ul Normal 4.0-11.0 [facility] Comment on above: Performed By: #### C BC #### [facility] [address] [place] [address] Dr. Jayy Marquez PROF CHEM 8 (BAS METB)on Anion gap [Moles/Vol] 11.3 mmol/L Normal Th [facility] Comment on above: Performed By: #### B MP #### [facility] [address] [address] [address] Jayy Marquez Calcium [Mass/Vol] 8.7 mg/dL Normal 8.5-10.1 [facility] Comment on above: Performed By: #### B MP #### [facility] [address] [address] [address] Jayy Marquez Chloride [Moles/Vol] 100 mmol/L Normal 98-107 [facility] Comment on above: Performed By: #### B MP #### [facility] [address] [place] [address] Dr. Jayy Marquez CO2 [Moles/Vol] 27.6 mmol/L Normal 21.0-32.0 [facility] Comment on above: Performed By: #### B MP #### [facility] [address] [address] [address] Jayy Marquez Creatinine [Mass/Vol] 0.82 mg/dL Normal 0.55-1.02 [facility] Comment on above: Performed By: #### B MP #### [facility] [address] [place] [address] Dr. Jayy Marquez EGFR-AF DANISH >60 Normal >=60 [facility] Comment on above: Performed By: #### B MP #### [facility] [address] [address] [address] Jayy Marquez EGFR-NON AF DANISH >60 Normal >=60 [facility] Comment on above: Performed By: #### B MP #### [facility] [address] [address] [address] Jayy Marquez Glucose [Mass/Vol] 203 mg/dL Critically high 74-106 [facility] Comment on above: Performed By: #### B MP #### [facility] [address] [address] [address] Jayy Marquez Potassium [Moles/Vol] 3.9 mmol/L Normal 3.5-5.1 [facility] Comment on above: Performed By: #### B MP #### [facility] [address] [address] [address] Jayy Marquez Sodium [Moles/Vol] 135 mmol/L Critically low 136-145 [facility] Comment on above: Performed By: #### B MP #### [facility] [address] [address] [address] Jayy Marquez Urea nitrogen [Mass/Vol] 11.0 mg/dL Normal 7.0-18.0 [facility] Comment on above: Performed By: #### B MP #### [facility] [address] [place] [address] Dr. Jayy Marquez Urea nitrogen/Creatinine [Mass ratio] 13.4 mg/mg Normal [facility] Comment on above: Performed By: #### B MP #### [facility] [address] [address] [address] Jayy Marquez Anion gap [Moles/Vol] 12.9 mmol/L Normal [facility] Comment on above: Performed By: #### C YTO #### [facility] [address] [place] [address] Dr. Jayy Marquez Calcium [Mass/Vol] 9.2 mg/dL Normal 8.5-10.1 [facility] Comment on above: Performed By: #### C YTO #### [facility] [address] [place] [address] Dr. Jayy Marquez Chloride [Moles/Vol] 98 mmol/L Normal 98-107 [facility] Comment on above: Performed By: #### C YTO #### [facility] [address] [address] [address] Jayy Marquez CO2 [Moles/Vol] 25.8 mmol/L Normal 21.0-32.0 [facility] Comment on above: Performed By: #### C YTO #### [facility] [address] [address] [address] Jayy Marquez Creatinine [Mass/Vol] 0.90 mg/dL Normal 0.55-1.02 [facility] Comment on above: Performed By: #### C YTO #### [facility] [address] [place] [address] Dr. Jayy Marquez EGFR-AF DANISH >60 Normal >=60 [facility] Comment on above: Performed By: #### C YTO #### [facility] [address] [address] [address] Jayy Marquez EGFR-NON AF DANISH >60 Normal >=60 [facility] Comment on above: Performed By: #### C YTO #### [facility] [address] [address] [address] aJyy Marquez Glucose [Mass/Vol] 150 mg/dL Critically high 74-106 [facility] Comment on above: Performed By: #### C YTO #### [facility] [address] [place] [address] Dr. Jayy Marquez Potassium [Moles/Vol] 3.7 mmol/L Normal 3.5-5.1 [facility] Comment on above: Performed By: #### C YTO #### [facility] [address] [place] [address] Dr. Jayy Marquez Sodium [Moles/Vol] 133 mmol/L Critically low 136-145 [facility] Comment on above: Performed By: #### C YTO #### [facility] [address] [place] [address] Dr. Jayy Marquez Urea nitrogen [Mass/Vol] 14.0 mg/dL Normal 7.0-18.0 [facility] Comment on above: Performed By: #### C YTO #### [facility] [address] [address] [address] Jayy Marquez Urea nitrogen/Creatinine [Mass ratio] 15.6 mg/mg Normal [facility] Comment on above: Performed By: #### C YTO #### [facility] [address] [place] [address] Dr. Jayy Marquez RESPIRATORY PANEL PLUSon Adenovirus Not detected Normal NOT DETECTED [facility] Comment on above: Performed By: #### C VDAGS #### [facility] [address] [place] [address] Dr. Jayy King. Parapertusis Not detected Normal NOT DETECTED [facility] Comment on above: Performed By: #### C VDAGS #### [facility] [address] [place] [address] Dr. Jayy King. Pertussis Not detected Normal NOT DETECTED [facility] Comment on above: Performed By: #### C VDAGS #### [facility] [address] [place] [address] Dr. Jayy Marquez Chlamydia Pneumoniae Not detected Normal NOT DETECTED [facility] Comment on above: Performed By: #### C VDAGS #### [facility] [address] [place] [address] Dr. Jayy Marquez Coronavirus 229E Not detected Normal NOT DETECTED [facility] Comment on above: Performed By: #### C VDAGS #### [facility] [address] [place] [address] Dr. Jayy Marquez Coronavirus HKU1 Not detected Normal NOT DETECTED [facility] Comment on above: Performed By: #### C VDAGS #### [facility] [address] [place] [address] Dr. Jayy Marquez Coronavirus NL63 Not detected Normal NOT DETECTED [facility] Comment on above: Performed By: #### C VDAGS #### [facility] [address] [place] [address] Dr. Jayy Marquez Coronavirus OC43 Not detected Normal NOT DETECTED [facility] Comment on above: Performed By: #### C VDAGS #### [facility] [address] [place] [address] Dr. Jayy Marquez Influenza A H1 Not detected Normal NOT DETECTED [facility] Comment on above: Performed By: #### C VDAGS #### [facility] [address] [place] [address] Dr. Jayy Marquez Influenza A H1 2009 Not detected Normal NOT DETECTED [facility] Comment on above: Performed By: #### C VDAGS #### [facility] [address] [id number] Dr. Jayy Marquez Influenza A H3 Not detected Normal NOT DETECTED [facility] Comment on above: Performed By: #### C VDAGS #### [facility] [address] [place] [address] Dr. Jayy Marquez Influenza B Not detected Normal NOT DETECTED [facility] Comment on above: Performed By: #### C VDAGS #### [facility] [address] [address] [address] Jayy Marquez Metapneumovirus Not detected Normal NOT DETECTED [facility] Comment on above: Performed By: #### C VDAGS #### [facility] [address] [place] [address] Dr. Jayy Marquez Mycoplas. Pneumoniae Not detected Normal NOT DETECTED [facility] Comment on above: Performed By: #### C VDAGS #### [facility] [address] [place] [address] Dr. Jayy Marquez Parainfluenza 1 Not detected Normal NOT DETECTED [facility] Comment on above: Performed By: #### C VDAGS #### [facility] [address] [place] [address] Dr. Jayy Marquez Parainfluenza 2 Not detected Normal NOT DETECTED [facility] Comment on above: Performed By: #### C VDAGS #### [facility] [address] [place] [address] Dr. Jayy Marquez Parainfluenza 3 Not detected Normal NOT DETECTED [facility] Comment on above: Performed By: #### C VDAGS #### [facility] [address] [place] [address] Dr. Jayy Marquez Parainfluenza 4 Not detected Normal NOT DETECTED [facility] Comment on above: Performed By: #### C VDAGS #### [facility] [address] [place] [address] Dr. Jayy Marquez Rhino/Enterovirus Not detected Normal NOT DETECTED [facility] Comment on above: Performed By: #### C VDAGS #### [facility] [address] [place] [address] Dr. Jayy Marquez RP2 Header 1 RESPIRATORY PANEL: VIRUSES Normal [facility] Comment on above: Performed By: #### C VDAGS #### [facility] [address] [place] [address] Dr. Jayy Marquez RP2 Header 2 RESPIRATORY PANEL: BACTERIA Normal [facility] Comment on above: Performed By: #### C VDAGS #### [facility] [address] [place] [address] Dr. Jayy Marquez RSV Not detected Normal NOT DETECTED [facility] Comment on above: Performed By: #### C VDAGS #### [facility] [address] [place] [address] Dr. Jayy Marquez SARS-CoV-2 (COVID-19) RNA SILVINO+probe Ql (Unsp spec) Not detected Normal NOT DETECTED [facility] Comment on above: Performed By: #### C VDAGS #### [facility] [address] [place] [address] Dr. Jayy Marquez SYMPTOMATIC COVID-19 ANTIGEN on 09-22-2022 EUA Statement SEE BELOW Normal [facility] Comment on above: Result Comment: This [...] sooner. Performed By: #### C VDAGS #### [facility] [address] [place] [address] Dr. Jayy Marquez SARS-CoV-2 (COVID-19) RNA SILVINO+probe Ql (Unsp spec) Negative Normal NEGATIVE [facility] Comment on above: Performed By: #### C VDAGS #### [facility] [address] [place], [place] [address] Dr. Jayy Marquez TROPONIN, HIGH SENSITIVITYon 09-22-2022 HSTROP 12.9 pg/mL Normal 4.0-51.3 [facility] Comment on above: Result Comment: CUT- OFF POINTS HAVE BEEN ESTABLISHED BASED ON THE FOURTH UNIVERSAL DEFINITIONS OF MYOCARDIAL INFARCTION. THE UPPER REFERENCE LIMIT (URL) OF TROPONIN, DEFINED THE 99TH PERCENTILE OF cTnI DISTRIBUTION IN A REFERENCE POPULATION, HAS BEEN CONFIRMED THE DECISION THRESHOLD FOR WA DIAGNOSIS. Performed By: #### B MP, BNP, HSTROPN #### [facility] [id number] Jayy Marquez XR CHEST 1 Von [...] ARIANNA CEVALLOS Date: 2022-09-22 00:51 Normal [facility] [address] CHEST WO CONon 09-01-2022 CT [...] Mild emphysematous changes. Electronically authenticated by: HANDY KEAITNG Date: 2022-09-01 15:28 Normal [facility] ACID FAST SMEAR AND CXon Acid Fast Culture Negative Normal [facility] Comment on above: Result Comment: No a goyo fast bacilli isolated after 6 weeks. Performed By: #### A FB #### [facility] [address] [place] [address] Dr. Jayy Marquez Performed By: #### C VDAGS #### [facility] [address] [place] [address] Dr. Jayy Marquez Acid Fast Smear Negative Normal [facility] Comment on above: Performed By: #### A FB #### [facility] [address] [place] [address] Dr. Jayy Marquez Performed By: #### C VDAGS #### [facility] [address] [place] [address] Dr. Jayy Marquez [employer] Specimen Processing Concentration Normal [facility] Comment on above: Performed By: #### A FB #### [facility] [address] [place] [address] Dr. Jayy Marquez Performed By: #### C VDAGS #### [facility] [address] [place] [address] Dr. Jayy Marquez FUNGAL CULTUREon 04-23-2022 Fungus (Mycology) Culture Final report Normal [facility] Comment on above: Performed By: #### C XFUN #### [facility] [address] [place] [address] Dr. Jayy Marquez Performed By: #### C VDAGS #### [facility] [address] [place] [address] Dr. Jayy Marquez Fungus Stain Final report Normal [facility] Comment on above: Performed By: #### C XFUN #### [facility] [address] [place] [address] Dr. Jayy Marquez Performed By: #### C VDAGS #### [facility] [address] [place] [address] Dr. Jayy Marquez Result 1 Comment Normal [facility] Comment on above: Result Comment: TANYA/ Calcofluor preparation: no fungus observed. Performed By: #### C XFUN #### [facility] [address] [place] [address] Dr. Jayy Marquez Result Comment: No y east or mold isolated after 4 weeks. Performed By: #### C VDAGS #### [facility] [address] [place] [address] Dr. Jayy Marquez CULTURE OTHERon 03-26-2022 CULTURE [...] S F Tetracycline >=16 R F Normal [facility] Comment on above: Performed By: #### C YTO #### [facility] [address] [place] [address] Dr. Jayy Marquez CULTURE OTHERon 03-25-2022 CULTURE [...] F Levofloxacin 0.25 S F Normal [facility] Comment on above: Performed By: #### C YTO #### [facility] [address] [address] [address] Jayy Marquez CYTOLOGYon 03-23-2022 SENT TO REF LAB 03/23/2022 Normal [facility] Comment on above: Performed By: #### C YTO #### [facility] [address] [place] [address] Dr. Jayy AMADOR STAINon 03-23-2022 DIPHTHEROIDS Normal [facility] Comment on above: Performed By: #### C VDAGS #### [facility] [address] [place] [address] Dr. Jayy Marquez EPITHELIALS [facility] Comment on above: Performed By: #### C VDAGS #### [facility] [address] [place] [address] Dr. Jayy Marquez FUNGAL ELEMENTS [facility] Comment on above: Performed By: #### C VDAGS #### [facility] [address] [place] [address] Dr. Jayy AMADOR NEG BACILLI FEW [facility] Comment on above: Performed By: #### C VDAGS #### [facility] [address] [place] [address] Dr. Jayy AMADOR NEG DIPPLOCOCCI Normal [facility] Comment on above: Performed By: #### C VDAGS #### [facility] [address] [place] [address] Dr. Jayy AMADOR POS BACILLI Normal [facility] Comment on above: Performed By: #### C VDAGS #### [facility] [address] [place] [address] Dr. Jayy Marquez GRAM POSITIVE COCCI FEW Normal [facility] Comment on above: Performed By: #### C VDAGS #### [facility] [address] [address] [address] Jayy Marquez GRAM STAIN SOURCE Rt Middle Lobe Lavage Normal [facility] Comment on above: Performed By: #### C VDAGS #### [facility] [address] [place] [address] Dr. Jayy Marquez GRAM STAIN SOURCE Lingula Lt Upper Lob e Lavage Normal [facility] Comment on above: Performed By: #### C VDAGS #### [facility] [address] [place] [address] Dr. Jayy Marquez GS_DIPTH Normal [facility] Comment on above: Performed By: #### C VDAGS #### [facility] [address] [place] [address] Dr. Jayy Marquez WBC MANY Normal [facility] Comment on above: Performed By: #### C VDAGS #### [facility] [address] [place] [address] Dr. Jayy Marquez WBC MODERATE Normal [facility] Comment on above: Performed By: #### C VDAGS #### [facility] [address] [place] [address] Dr. Jayy Marquez Covid-19 PCR ([facility])on 02-25 SARS-CoV-2 (COVID-19) RNA SILVINO+probe Ql (Unsp spec) Not detected Normal NOT DETECTED [facility] Comment on above: Result Comment: This test is not yet approved or cleared by the [place] FDA. When there are no FDA-approved or cleared tests available, and other criteria are met, FDA can make tests available under an emergency access mechanism called an Emergency Use Authorization (EUA). The EUA for this test is supported by the [employer] of Health and Human Service's (HHS's) declaration [...] SARS-CoV-2. Performed By: #### C YTO #### [facility] [address] [address] [address] LUNG CANCER SCREENINGon [...] HANDY KEATING Date: 2022-03-04 16:14 Normal [facility] CBC AUTO DIFFon 10-30-2021 BASO # 0.0 103/ul Normal 0.0-0.1 [facility] Comment on above: Performed By: #### C VDAGS #### [facility] [address] [place] [address] Dr. Jayy Marquez Basophils/100 WBC (Bld) 0.7 % Normal 0.2-2.0 [facility] Comment on above: Performed By: #### C VDAGS #### [facility] [address] [place] [address] Dr. Jayy Marquez EO # 0.2 103/ul Normal 0.0-0.7 [facility] Comment on above: Performed By: #### C VDAGS #### [facility] [address] [place] [address] Dr. Jayy Marquez Eosinophils/100 WBC (Bld) 2.6 % Normal 0.9-7.0 [facility] Comment on above: Performed By: #### C VDAGS #### [facility] [address] [place] [address] Dr. Jayy Marquez Erythrocyte distribution width (RBC) [Ratio] 14.7 % Normal 11.0-15.0 [facility] Comment on above: Performed By: #### C VDAGS #### [facility] [address] [place] [address] Dr. Jayy Marquez Hematocrit (Bld) [Volume fraction] 48.9 % Critically high 36.0-48.0 [facility] Comment on above: Performed By: #### C VDAGS #### [facility] [address] [place] [address] Dr. Jayy Marquez Hemoglobin (Bld) [Mass/Vol] 15.5 g/dL Normal 12.0-16.0 [facility] Comment on above: Performed By: #### C VDAGS #### [facility] [address] [place] [address] Dr. Jayy Marquez IG # 0.01 10e3/ul Normal 0.00-0.03 [facility] Comment on above: Performed By: #### C VDAGS #### [facility] [address] [address] [address] Jayy Marquez IG % 0.2 % Normal 0.0-0.5 [facility] Comment on above: Performed By: #### C VDAGS #### [facility] [address] [address] [address] Jayy Marquez LYMPH # 1.6 103/ul Normal 1.2-3.8 [facility] Comment on above: Performed By: #### C VDAGS #### [facility] [address] [address] [address] Jayy Marquez Lymphocytes/100 WBC (Bld) 26.0 % Normal 20.5-60.0 [facility] Comment on above: Performed By: #### C VDAGS #### [facility] [address] [place] [address] Dr. Jayy Marquez MANUAL DIFF REQ NO Normal [facility] Comment on above: Performed By: #### C VDAGS #### [facility] [address] [place] [address] Dr. Jayy Marquez MCH (RBC) [Entitic mass] 31.5 pg Normal 26.7-34.0 [facility] Comment on above: Performed By: #### C VDAGS #### [facility] [address] [place] [address] Dr. Jayy Marquez MCHC (RBC) [Mass/Vol] 31.7 g/dL Normal 29.9-35.2 [facility] Comment on above: Performed By: #### C VDAGS #### [facility] [address] [place] [address] Dr. Jayy Marquez MCV (RBC) [Entitic vol] 99.4 fL Critically high 81.0-99.0 [facility] Comment on above: Performed By: #### C VDAGS #### [facility] [address] [place] [address] Dr. Jayy Marquez MONO # 0.8 103/ul Normal 0.3-0.8 [facility] Comment on above: Performed By: #### C VDAGS #### [facility] [address] [place] [address] Dr. Jayy Marquez Monocytes/100 WBC (Bld) 12.4 % Critically high 1.7-12.0 [facility] Comment on above: Performed By: #### C VDAGS #### [facility] [address] [place] [address] Dr. Jayy Marquez NEUT # 3.6 103/ul Normal 1.4-6.5 [facility] Comment on above: Performed By: #### C VDAGS #### [facility] [address] [place] [address] Dr. Jayy Marquez Neutrophils/100 WBC (Bld) 58.1 % Normal 43.0-75.0 [facility] Comment on above: Performed By: #### C VDAGS #### [facility] [address] [place] [address] Dr. Jayy Marquez Platelet mean volume (Bld) [Entitic vol] 10.1 fL Normal 9.5-13.5 [facility] Comment on above: Performed By: #### C VDAGS #### [facility] [address] [place] [address] Dr. Jayy Marquez PLT 234 103/ul Normal 150-450 [facility] Comment on above: Performed By: #### C VDAGS #### [facility] [address] [place] [address] Dr. Jayy Marquez RBC 4.92 106/ul Normal 4.20-5.40 [facility] Comment on above: Performed By: #### C VDAGS #### [facility] [address] [place] [address] Dr. Jayy Marquez WBC 6.2 103/ul Normal 4.0-11.0 [facility] Comment on above: Performed By: #### C VDAGS #### [facility] [address] [place] [address] Dr. Jayy Marquez FREE T3on 10-30-2021 FREE T3 2.73 pg/mlL Normal 2.18-3.98 [facility] Comment on above: Performed By: #### C VDAGS #### [facility] [address] [place] [address] Dr. Jayy Marquez FREE T4on 10-30-2021 Free T4 [Mass/Vol] 1.25 ng/dL Normal 0.76-1.46 [facility] Comment on above: Performed By: #### F T4 #### [facility] [address] [place] [address] Dr. Jayy Marquez PROF CHEM 8 (BAS METB)on Anion gap [Moles/Vol] 8.8 mmol/L Normal [facility] Comment on above: Performed By: #### C VDAGS #### [facility] [address] [place] [address] Dr. Jayy Marquez Calcium [Mass/Vol] 9.4 mg/dL Normal 8.5-10.1 [facility] Comment on above: Performed By: #### C VDAGS #### [facility] [address] [place] [address] Dr. Jayy Marquez Chloride [Moles/Vol] 104 mmol/L Normal 98-107 [facility] Comment on above: Performed By: #### C VDAGS #### [facility] [address] [place] [address] Dr. Jayy Marquez CO2 [Moles/Vol] 29.4 mmol/L Normal 21.0-32.0 [facility] Comment on above: Performed By: #### C VDAGS #### [facility] [address] [place] [address] Dr. Jayy Marquez Creatinine [Mass/Vol] 0.74 mg/dL Normal 0.55-1.02 [facility] Comment on above: Performed By: #### C VDAGS #### [facility] [address] [place] [address] Dr. Jayy Marquez EGFR-AF DANISH >60 Normal >=60 [facility] Comment on above: Performed By: #### C VDAGS #### [facility] [address] [place] [address] Dr. Jayy Marquez EGFR-NON AF DANISH >60 Normal >=60 [facility] Comment on above: Performed By: #### C VDAGS #### [facility] [address] [address] [address] Jayy Marquez Glucose [Mass/Vol] 108 mg/dL Critically high 74-106 [facility] Comment on above: Performed By: #### C VDAGS #### [facility] [address] [address] [address] Jayy Marquez Potassium [Moles/Vol] 4.2 mmol/L Normal 3.5-5.1 [facility] Comment on above: Performed By: #### C VDAGS #### [facility] [address] [address] [address] Jayy Marquez Sodium [Moles/Vol] 138 mmol/L Normal 136-145 [facility] Comment on above: Performed By: #### C VDAGS #### [facility] [address] [address] [address] Jayy Marquez Urea nitrogen [Mass/Vol] 16.0 mg/dL Normal 7.0-18.0 [facility] Comment on above: Performed By: #### C VDAGS #### [facility] [address] [address] [address] Jayy Marquez Urea nitrogen/Creatinine [Mass ratio] 21.6 mg/mg Normal [facility] Comment on above: Performed By: #### C VDAGS #### [facility] [address] [place] [address] Dr. Jayy Dupree 10-30-2021 AST [Catalytic activity/Vol] 11 U/L Critically low 15-37 [facility] Comment on above: Performed By: #### B MP #### [facility] [address] [place] [address] Dr. Jayy Stringer 10-30-2021 ALT [Catalytic activity/Vol] 22 U/L Normal 14-59 [facility] Comment on above: Performed By: #### C VDAGS #### [facility] [address] [place] [address] Dr. Jayy Marquez TSHon 10-30-2021 TSH 1.593 uIU/mL Normal 0.358-3.740 [facility] Comment on above: Performed By: #### B #### [facility] [address] [address] LUNG SCREENING (ANNUAL)on 09-26-2019 Patient Name: AKIL CHACON ---CT--- Exam Date/Time 09/26/2019 10:55:[address] Low Dose Lung Scrn Ordering Physician RAVINDRA THURMAN, SHELBI PERLA Accession Number [id number] CPT4 Codes G0297 (CT Low Dose Lung [...] ROBERT Transcribed Date and Time: 09/26/2019 1:18 [facility], [place] Octavio, [facility] Incoming Radiology Results From [facility] - 09/26/2019 1:28 PM EDT Patient Name: AKIL CHACON ---CT--- Exam Date/Time 09/26/2019 10:55:[address] Low Dose Lung Scrn Ordering Physician RAVINDRA THURMAN, SHELBI PERLA Accession Number [id number] CPT4 Codes G0297 (CT Low Dose Lung [...] ROBERT Transcribed Date and Time: 09/26/2019 1:18 [place], [place] CT Low Dose Lung Screeningon 09-26-2019 CT Low Dose Lung Screening Patient Name: AKIL CHACON CT Exam Date/Time 09/26/2019 10:55:[address] Low Dose Lung Scrn Ordering Physician RAVINDRA THURMAN TAMMY KAY Accession Number [id number] CPT4 Codes G0297 (CT Low Dose Lung [...] Time: 09/26/2019 1:18 Normal [facility] OBSOLETEon 11-13-2016 OBSOLETE Refill (ENDMED) ----AKIL CHACON ([id number]) 1955 FDate Time Provider Department11/13/16 [place] RATLIFF [...] by MADELEINE ARIAS MA on 11/16/16 Normal [facility] Colonoscopy w/ or w/o biopsy on 01-12-2013 Colon polyps Internal hemorrhoids Normal appearing terminal ileum and colonic mucosa, s/p random biopsies [facility] This order was created through External Result Entry [facility] Vital Signs Date Time Vital Sign Value Performing Clinician Facility 12-20-2024 11:170400 Body height 162.6 cm Hector Arellano MD Work Phone: [facility] 12-20-2024 11:17-0400 Body mass index (BMI) [Ratio] 29.35 kg/m2 Hector Arellano MD Work Phone: [facility] 12-20-2024 11:17-0400 Body weight 77.56 kg Hector Arellano MD Work Phone: [facility] 12-20-2024 11:17-0400 Diastolic blood pressure 69 mm[Hg] Hector Arellano MD Work Phone: [facility] 12-20-2024 11:17-0400 Heart rate 70 /min Hector Arellano MD Work Phone: [facility] 12-20-2024 11:17-0400 Systolic blood pressure 124 mm[Hg] Hector Arellano MD Work Phone: [facility] 09-28-2024 14:02-0400 Body height 162.6 cm Antonio Hopkins MD Work Phone: [facility] 09-28-2024 14:02-0400 Body mass index (BMI) [Ratio] 29.35 kg/m2 Antnoio Hopkins MD Work Phone: [facility] 09-28-2024 14:02-0400 Body temperature 97.81 [degF] Antonio Hopkins MD Work Phone: [facility] 09-28-2024 14:02-0400 Body weight 77.56 kg Antonio Hopkins MD Work Phone: [facility] 09-28-2024 14:02-0400 Diastolic blood pressure 64 mm[Hg] Antonio Hopkins MD Work Phone: [facility] 09-28-2024 14:02-0400 Heart rate 74 /min Antonio Hopkins MD Work Phone: [facility] 09-28-2024 14:02-0400 Respiratory rate 22 /min Antonio Hopkins MD Work Phone: [facility] 09-28-2024 14:02-0400 SaO2% (BldA) [Mass fraction] 93 % Antonio Hopkins MD Work Phone: [facility] 09-28-2024 14:02-0400 Systolic blood pressure 116 mm[Hg] Antonio Hopkins MD Work Phone: [facility] 09-19-2024 09:18-0400 Body height 162.6 cm Hector Arellano MD Work Phone: [facility] 09-19-2024 09:18-0400 Body mass index (BMI) [Ratio] 30.38 kg/m2 Hector Arellano MD Work Phone: [facility] 09-19-2024 09:18-0400 Body weight 80.29 kg Hector Arellano MD Work Phone: [facility] 09-19-2024 09:18-0400 Diastolic blood pressure 66 mm[Hg] Hector Arellano MD Work Phone: [facility] 09-19-2024 09:18-0400 Heart rate 65 /min Hector Arellano MD Work Phone: [facility] 09-19-2024 09:18-0400 Systolic blood pressure 121 mm[Hg] Hector Arellano MD Work Phone: [facility] 04-27-2024 11:07-0500 Body height 162.6 cm Barbie Aichholz SPECIAL MACHINE OPERATOR Work Phone: [facility] 04-27-2024 11:07-0500 Body mass index (BMI) [Ratio] 30.55 kg/m2 Barbie Mattz SPECIAL MACHINE OPERATOR Work Phone: [facility] 04-27-2024 11:07-0500 Body temperature 97.81 [degF] Barbie Mattz SPECIAL MACHINE OPERATOR Work Phone: [facility] 04-27-2024 11:07-0500 Body weight 80.74 kg Barbie Mattz SPECIAL MACHINE OPERATOR Work Phone: [facility] 04-27-2024 11:07-0500 Diastolic blood pressure 62 mm[Hg] Barbie Sidhuholz SPECIAL MACHINE OPERATOR Work Phone: [facility] 04-27-2024 11:07-0500 Heart rate 74 /min Barbie Mattz SPECIAL MACHINE OPERATOR Work Phone: [facility] 04-27-2024 11:07-0500 Respiratory rate 16 /min Barbie Mattz SPECIAL MACHINE OPERATOR Work Phone: [facility] 04-27-2024 11:07-0500 SaO2% (BldA) [Mass fraction] 97 % Barbie Mattz SPECIAL MACHINE OPERATOR Work Phone: [facility] 04-27-2024 11:07-0500 Systolic blood pressure 110 mm[Hg] Barbie Sidhulatoyaz SPECIAL MACHINE OPERATOR Work Phone: [facility] 03-28-2024 11:16-0500 Body height 162.6 cm Antonio Hopkins MD Work Phone: [facility] 03-28-2024 11:16-0500 Body mass index (BMI) [Ratio] 31.07 kg/m2 Antonio Hopkins MD Work Phone: [facility] 03-28-2024 11:16-0500 Body temperature 97.11 [degF] Antonio Hopkins MD Work Phone: [facility] 03-28-2024 11:16-0500 Body weight 82.1 kg Antonio Hopkins MD Work Phone: [facility] 03-28-2024 11:16-0500 Diastolic blood pressure 60 mm[Hg] Antonio Hopkins MD Work Phone: [facility] 03-28-2024 11:16-0500 Heart rate 71 /min Antonio Hopkins MD Work Phone: [facility] 03-28-2024 11:16-0500 Respiratory rate 22 /min Antonio Hopkins MD Work Phone: [facility] 03-28-2024 11:16-0500 SaO2% (BldA) [Mass fraction] 97 % Antonio Hopkins MD Work Phone: [facility] 03-28-2024 11:16-0500 Systolic blood pressure 116 mm[Hg] Antonio Hopkins MD Work Phone: [facility] 04-21-2023 14:10-0500 Blood Pressure Location Kale HANNA [facility] 04-21-2023 14:10-0500 Diastolic blood pressure 78 mm[Hg] Kale HANNA [facility] 04-21-2023 14:10-0500 Heart rate 72 /min Kale HANNA [facility] 04-21-2023 14:10-0500 Respiratory rate 16 /min Kale HANNA [facility] 04-21-2023 14:10-0500 Systolic blood pressure 128 mm[Hg] Kale HANNA [facility] [place] Encounters Encounter Date Encounter Type Care Provider Facility Start: 12-20-2024 End: 12-20-2024 John Arellano MD Work Phone: [facility] Start: 12-20-2024 End: 12-20-2024 John Arellano MD Work Phone: [facility] Start: 12-20-2024 End: 12-20-2024 Office outpatient visit 15 minutes Hector Arellano MD Work Phone: [facility] Comment on above: Abnormal positron em ission tomography (PET) scan (Primary Dx); Tonsillith Start: 12-20-2024 End: 12-20-2024 ambulatory HECTOR ARELLANO Not Available Start: 10-10-2024 End: 10-10-2024 Clinisync Result Encounter Antonio Hopkins MD Work Phone: [facility] Unsolicited Start: 10-10-2024 End: 10-10-2024 Clinisync Result Encounter Antonio Hopkins MD Work Phone: [facility] External Department Unsolicited Start: 10-10-2024 End: 10-10-2024 ambulatory [facility] Start: 10-06-2024 End: 10-06-2024 Clinisync Result Encounter Generic External Data Provider [facility] External [facility] Unsolicited Start: 10-06-2024 End: 10-06-2024 Clinisync Result Encounter Generic External Data Provider [facility] External Department Unsolicited Start: 09-28-2024 End: 09-28-2024 Bamboo flowsheet Antonio Hopkins MD Work Phone: [facility] Start: 09-28-2024 End: 09-28-2024 Bamboo flowsheet Antonio Hopkins MD Work Phone: [facility] Start: 09-28-2024 End: 09-28-2024 Office outpatient visit 25 minutes Antonio Hopkins MD Work Phone: [facility] Comment on above: Type 2 diabetes rhea itus without complication, without long- term current use of insulin (Primary Dx); HTN (hypertension), benign (CMS/HCC); Bronchiolectasis (CMS/HCC); Centrilobular emphysema (CMS/HCC) Start: 09-28-2024 End: 09-28-2024 ambulatory ANTONIO HOPKINS Not Available Start: 09-19-2024 End: 09-19-2024 Bamboo flowsheet Hector Arellano MD Work Phone: [facility] Start: 09-19-2024 End: 09-19-2024 Bamboo flowsheet Hector Arellano MD Work Phone: [facility] Start: 09-19-2024 End: 09-19-2024 Office outpatient new 45 minutes Hector Arellano MD Work Phone: [facility] Comment on above: Abnormal positron em ission tomography (PET) scan (Primary Dx); Chronic tonsillitis Start: 09-19-2024 End: 09-19-2024 ambulatory HECTOR ARELLANO Not Available Start: 09-06-2024 End: 09-06-2024 ambulatory [facility] Start: 09-05-2024 End: 09-05-2024 Clinisync Result [...] Unsolicited Start: 06-12-2024 End: 06-12-2024 Refill Barbie Isra SPECIAL MACHINE OPERATOR Work Phone: [facility] Comment on above: Type 2 diabetes rhea itus without complication, without long- term current use of insulin ([facility]) (Primary Dx) Start: 06-05-2024 End: 06-05-2024 Clinisync Result Encounter Barbie Shakaz SPECIAL MACHINE OPERATOR Work Phone: [facility] External Department Unsolicited Start: 06-05-2024 End: 06-05-2024 Clinisync Result Encounter Barbie Shakaz SPECIAL MACHINE OPERATOR Work Phone: [facility] External Department Unsolicited Start: 04-27-2024 End: 04-27-2024 Transitional care manage srvc 14 day discharge Barbie Dhaliwal SPECIAL MACHINE OPERATOR Work Phone: [facility] Comment on above: COPD with acute exac erbation (CMS/HCC) (Primary Dx); Centrilobular emphysema (CMS/HCC); HTN (hypertension), benign (CMS/HCC); Postoperative hypothyroidism (CMS/HCC); Encounter for screening mammogram for malignant neoplasm of breast; Prediabetes; Osteopenia, unspecified location; Menopause; Tobacco user Start: 04-27-2024 End: 04-27-2024 ambulatory BARBIE DHALIWAL Not Available Start: 03-28-2024 End: 03-28-2024 Bamboo flowsheet Antonio Hopkins MD Work Phone: [facility] Start: 03-28-2024 End: 03-28-2024 Bamboo flowsheet Antonio Hopkins MD Work Phone: [facility] Start: 03-28-2024 End: 03-28-2024 Patient encounter procedure Antonio Hopkins MD Work Phone: [facility] Healthcare Work Phone: Start: 03-28-2024 End: 03-28-2024 Postop follow up visit related to original px Antonio Hopkins MD Work Phone: [facility] Comment on above: Medicare annual well ness visit, subsequent (Primary Dx) Start: 03-28-2024 End: 03-28-2024 ambulatory ANTONIO HOPKINS Not Available Start: 01-31-2024 End: 01-31-2024 Clinisync Result Encounter Generic External Data Provider [facility] External Department Unsolicited Start: 01-31-2024 End: 01-31-2024 Clinisync Result Encounter Generic External Data Provider [facility] External Department Unsolicited Start: 06-04-2023 End: 06-05-2023 ambulatory Kale HANNA Facility:[facility] Start: 05-12-2023 End: 05-12-2023 ambulatory Kale Hanna Facility:[facility] Start: 05-12-2023 End: 05-13-2023 ambulatory Kale HANNA [facility] Work Phone: Start: 05-12-2023 End: 05-12-2023 Departed Referred MD Kale Hanna Work Phone: [facility] Start: 04-21-2023 End: 04-22-2023 [facility] Start: 04-21-2023 End: 04-21-2023 Patient encounter procedure Kale HANNA General Surgery Nill/Said Viv Start: 04-02-2023 ambulatory Kale HANNA Facility:[facility] Start: 09-22-2022 Evaluation and manag ement of inpatient DR DAYAMI FULLER . Facility:[facility] Start: 09-01-2022 End: 09-02-[address] HANDY KEATING Facility:[facility] Start: 03-23-2022 End: 03-23-2022 ambulatory ALIS HEAD . Facility:[facility] Start: 03-23-2022 Encounter for preprocedural cardiovascular examination ALIS RAMACHANDRAN . [facility] Start: 03-23-2022 Encounter for preprocedural laboratory examination ALIS HEAD . [facility] Start: 03-17-2022 End: 03-18-2022 ambulatory ALIS HEAD . Facility:[facility] Start: 03-17-2022 End: 03-18-2022 Encounter for preprocedural laboratory examination ALIS HEAD . Facility:[facility] Start: 03-04-2022 End: 03-05-[address] HANDY KEATING Facility:[facility] Start: 10-30-2021 End: 10-31-[address] ANTONIO HOPKINS Facility:[facility] Start: 09-26-2019 End: 09-26-2019 Subsequent hospital visit by physician Shelbi Thurman Work Phone: [facility] Comment on above: Cigarette nicotine d ependence with nicotine-induced disorder Start: 09-08-2018 Patient encounter procedure Lupillo [facility] Start: 04-04-2018 Patient encounter procedure Eddi Diaz [facility] Start: 03-08-2018 Patient encounter procedure MONICA FIGUEROA [facility] Start: 03-07-2018 Patient encounter procedure MONICA FIGUEROA [facility] Start: 02-22-2018 Patient encounter procedure Ottoniel Fuchs [facility] Start: 09-14-2017 Patient encounter procedure MONICA FIGUEROA [facility] Start: 08-14-2017 Emergency department patient visit MARTIN DOZIER [facility] Start: 08-13-2017 Patient encounter procedure Ottoniel Fuchs [facility] Start: 01-12-2013 Conversion Encounter Ottoniel jackson MD Work Phone: [facility] Start: 01-12-2013 Legacy Encounter Ottoniel osborn MD Work Phone: [facility] Procedures Date Procedure Procedure Detail Performing Clinician Start: 10-10-2024 MLR HEMOGLOBIN A1C Antonio Hopkins MD Work Phone: Start: 10-06-2024 NM MACKENZIE PERF SPECT REST STR Generic External Data Provider Start: 10-06-2024 CA ECHO DOPPLER COMPLETE Generic External Data Provider Start: 09-05-2024 Pet imaging skull ba se to mid-thigh Generic External Data Provider Start: 08-11-2024 CT CHEST WO CON Generic External Data Provider Start: 06-05-2024 ALL CBC WITH AUTO DIFF Barbie Isra SPECIAL MACHINE OPERATOR Work Phone: Start: 01-31-2024 ALL HEMOGLOBIN Generic External Data Provider Start: 06-24-2023 Mammography Generic Pr ovider Start: 05-31-2023 Colonoscopy Generic Pr ovider Start: 05-12-2023 Colonoscopy Generic Pr ovider Start: 09-26-2019 Ldct for lung ca screen Shelbi Rossson Work Phone: Start: 01-12-2013 COLONOSCOPY W/ OR W/ O BIOPSY Ottoniel Fuchs MD Work Phone: Bronchoscopy Kale HANNA section Kale Reynoso Colonoscopy Kale HANNA Extraction of cataract Ramon HANNA Laparoscopy Kale HANNA Ligation of fallopian tube Cammy HANNA Thyroidectomy Kale HANNA Plan of Treatment Date Care Activity Detail Author Start: 05-31-2033 Screening for malign ant neoplasm of colon [facility] Start: 05-12-2033 Screening for malign ant neoplasm of colon [facility] Start: 12-24-2025 DTaP/Tdap/Td vaccine (2 - Td) DTaP/Tdap/Td vaccine (2 - Td) [place] Start: 06-05-2025 Urine screening for protein Diabetes: Urine Protein Screening [facility] Start: 04-03-2025 End: 04-03-2025 Patient encounter procedure 04/03/2025 1:00 PM EST Office Visit [facility] [address] [place] [id number] Antonio Hopkins MD [address] [place] [id number] [facility] Start: 03-28-2025 Medicare Annual Well ness (AWV) Medicare Annual Wellness (AWV) [facility] Start: 12-25-2024 Influenza vaccination Influenza Vacc ine (#1) [facility] Start: 12-20-2024 End: 12-20-2024 Patient encounter procedure [facility] Comment on above: Arrived Start: 12-03-2024 Hemoglobin A1c measurement Diabetes: Hemoglobin A1C [facility] Start: 09-28-2024 End: 09-28-2025 Hemoglobin A1c/Hemoglobin.total in Blood Hemoglobin A1c Lab Routine Type 2 diabetes mellitus without complication, without long-term current use of insulin Expected: 09/28/2024 (Approximate), Expires: 09/28/2025 [facility] Work Phone: Comment on above: Expected: 09/28/2024 (Approximate), Expires: 09/28/2025 Start: 09-28-2024 End: 09-28-2024 Patient encounter procedure [facility] Comment on above: Arrived Start: 09-26-2024 End: 09-26-2024 Patient encounter procedure 09/26/2024 1:00 PM EDT Office Visit [facility] [address] [place] [address] Antonio Hopkins MD [address] [place] [address] [facility] Start: 09-19-2024 End: 09-19-2024 Patient encounter procedure 09/19/2024 9:20 AM EDT Office Visit [facility] [address] [place] [phone] Hector Arellano MD [address] [place] [address] Arrived [facility] Comment on above: Arrived Start: 09-02-2024 Hemoglobin A1c measurement Diabetes: Hemoglobin A1C [facility] Start: 06-24-2024 End: 04-27-2025 DXA Skeletal system Views for bone density DEXA bone density Imaging Routine Osteopenia, unspecified location Menopause Expected: 06/24/2024 (Approximate), Expires: 04/27/2025 [facility] Comment on above: Expected: 06/24/2024 (Approximate), Expires: 04/27/2025 Start: 06-24-2024 End: 06-25-2025 MG Breast - bilateral Screening Bilateral screening mammogram Imaging Routine Encounter for screening mammogram for malignant neoplasm of breast Expected: 06/24/2024 (Approximate), Expires: 06/25/2025 [facility] Work Phone: Comment on above: Expected: 06/24/2024 (Approximate), Expires: 06/25/2025 Start: 06-23-2024 Screening for malign ant neoplasm of breast Mammogram [facility] Start: 04-27-2024 End: 04-27-2025 25-hydroxyvitamin D3 [Mass/volume] in Serum or Plasma Vitamin D 25 hydroxy Lab Routine Osteopenia, unspecified location Expected: 04/27/2024 (Approximate), Expires: 04/27/2025 [facility] Comment on above: Expected: 04/27/2024 (Approximate), Expires: 04/27/2025 Start: 04-27-2024 End: 04-27-2025 CBC W Auto Differential panel - Blood CBC and differential Lab Routine Centrilobular emphysema (CMS/HCC) Expected: 04/27/2024 (Approximate), Expires: 04/27/2025 [facility] Comment on above: Expected: 04/27/2024 (Approximate), Expires: 04/27/2025 Start: 04-27-2024 End: 04-27-2025 Comprehensive metabolic 2000 panel - Serum or Plasma Comprehensive metabolic panel Lab Routine Centrilobular emphysema (CMS/HCC) HTN (hypertension), benign (CMS/HCC) Prediabetes Osteopenia, unspecified location Expected: 04/27/2024 (Approximate), Expires: 04/27/2025 [facility] Comment on above: Expected: 04/27/2024 (Approximate), Expires: 04/27/2025 Start: 04-27-2024 End: 04-27-2025 Hemoglobin A1c/Hemoglobin.total in Blood Hemoglobin A1c Lab Routine Prediabetes Expected: 04/27/2024 (Approximate), Expires: 04/27/2025 [facility] Comment on above: Expected: 04/27/2024 (Approximate), Expires: 04/27/2025 Start: 04-27-2024 End: 04-27-2025 Lipid 1996 panel - Serum or Plasma Lipid panel Lab Routine Prediabetes Expected: 04/27/2024 (Approximate), Expires: 04/27/2025 [facility] Comment on above: Expected: 04/27/2024 (Approximate), Expires: 04/27/2025 Start: 04-27-2024 End: 04-27-2025 Microalbumin/Creatinine panel in random Urine Microalbumin / creatinine, urine ratio Lab Routine HTN (hypertension), benign (CMS/HCC) Prediabetes Expected: 04/27/2024 (Approximate), Expires: 04/27/2025 [facility] Comment on above: Expected: 04/27/2024 (Approximate), Expires: 04/27/2025 Start: 04-27-2024 End: 04-27-2025 Urinalysis complete panel - Urine Urinalysis with reflex microscopic (clean catch) Lab Routine HTN (hypertension), benign (CMS/HCC) Prediabetes Expected: 04/27/2024 (Approximate), Expires: 04/27/2025 [facility] Comment on above: Expected: 04/27/2024 (Approximate), Expires: 04/27/2025 Start: 03-28-2024 End: 03-28-2024 Patient encounter procedure [facility] Comment on above: Arrived Start: 12-30-2023 Lipid panel Lipid screen [place] Start: 12-26-2023 Influenza vaccination Influenza Vacc ine (#1) [facility] Start: 02-11-2023 Screening for malign ant neoplasm of cervix Cervical cancer screen [place], [place] Start: 01-12-2023 Screening for malign ant neoplasm of colon Colon cancer screen colonoscopy [place] Start: 02-23-2020 Screening for malign ant neoplasm of breast Breast cancer screen [place] Start: 02-13-2020 Pneumococcal 65+ yea rs Vaccine (1 of 1 - PPSV23) Pneumococcal 65+ years Vaccine (1 of 1 - PPSV23) [place] Start: 02-08-2020 End: 02-08-2020 Office Visit 02/08/2020 Office Visit Family Medicine Ottoniel Fuchs MD [facility], [address] [place] [address] [facility] Start: 12-30-2019 Creatinine measurement Creatinine mo nitoring [place], [place] Start: 12-30-2019 HbA1c (Bld) [Mass fraction] A1C test (Diabetic or Prediabetic) [place] Start: 12-30-2019 Potassium monitoring Potassium monit oring [place] Start: 12-30-2019 TSH Qn TSH testing [place], [place] Start: 09-09-2019 Screening for malign ant neoplasm of lung Low dose CT lung screening [place] Start: 08-09-2019 Annual Wellness Visi t (AWV) Annual Wellness Visit (AWV) [place] Start: 02-11-2019 Medicare Annual Well ness (AWV) Medicare Annual Wellness (AWV) [facility] Start: 1965 Glaucoma screening Diabetes: R etinopathy Screening [facility] Start: 1955 Screening for malign ant neoplasm of colon [facility] Start: 1955 Screening for malign ant neoplasm of lung Lung Cancer Screening Shared Decision Making [facility] Immunizations Immunization Date Immunization Notes Care Provider Fa cili 03-01-2024 influenza, high dose seasonal, preservative-free Barbie Dhaliwal SPECIAL MACHINE OPERATOR Work Phone: [facility] 03-01-2024 Fluzone High-Dose 0. 5 ML suspension prefilled syringe Barbie Dhaliwal SPECIAL MACHINE OPERATOR Work Phone: [facility] 03-01-2024 influenza virus vacc ine, unspecified formulation Hector Arellano MD Work Phone: [facility] 03-08-2023 influenza virus vacc ine, unspecified formulation Kale HANNA [facility] 03-08-2023 Influenza, High-dose Seasonal, Quadrivalent, Preservative Free Barbie Isra SPECIAL MACHINE OPERATOR Work Phone: [facility] 02-26-2023 RSV, recombinant, protein subunit RSVpreF, adjuvant reconstitu, 120mcg/0.5mL, PF (Arexvy) Barbie Dhaliwal SPECIAL MACHINE OPERATOR Work Phone: [facility] 11-02-2022 Pneumococcal Conjuga te PCV 20 Barbie Dhaliwal SPECIAL MACHINE OPERATOR Work Phone: [facility] 02-04-2021 SARS-CoV-2 (COVID-19 ) Ad26 vaccine, recombinant Kale HANNA [facility] Comment on above: Result Comment: 2022: [id number] 03-30-2019 Seasonal, quadrivale nt, recombinant, injectable influenza vaccine, preservative free [facility] [place] 12-29-2018 zoster vaccine recombinant [facility] [place] 02-11-2018 influenza virus vacc ine, unspecified formulation [facility] [place] 02-11-2018 influenza, injectabl e, quadrivalent, contains preservative [facility] [place] 02-11-2018 zoster vaccine recombinant [facility] [place] 12-25-2015 tetanus toxoid, redu florentino diphtheria toxoid, and acellular pertussis vaccine, adsorbed [facility] [place] 02-12-2015 pneumococcal polysaccharide vaccine, 23 valent [facility] [place] 02-12-2015 zoster vaccine, live [facility] [place] 01-24-2015 pneumococcal conjuga te vaccine, 13 valent Barbie Dhaliwal NP Work Phone: [facility] Payers Date Payer Category Payer Self-pay 2023 Medicare ANTHEM MEDICARE ADVANTAGE ANTHEM MEDICARE ADVANTAGE [id number] 2023-Present [address] [place] [address] [id number] 2023 Medicare (Managed Care) [facility] [id number] 2023 Unknown [id number] 2019 Medicare MEDICARE MEDICAR E PART A AND B xxxxxxxxxxx 2019-Present [phone] [address] [address] [place] [address] xxxxxxxxxxx [id number] 2019 Private Health Insurance [employer] A ETNA SENIOR MEDICARE SUPP xxxxxxxxxx 2019-Present [phone] [address] [place] [address] xxxxxxxxxx [id number] 1960 Unknown [id number] [id number] .668 1960 Unknown [id number] 2.16.840.1.326872.3.579.2 .668 1959 Medicare [id number] 1959 Private Health Insurance CLI [id number] 1954 Unknown [id number] [id number] .668 1954 Unknown [id number] 2.840.1.940807.3.579.2 .668 1954 Unknown [id number] 2.16.840.1.166071.3.579.2 .668 1954 Unknown [id number] 2.16.840.1.329427.3.579.2 .668 1954 Unknown [id number] 2.16.840.1.162954.3.579.2 .668 1954 Unknown [id number] 2.16.840.1.512724.3.579.2 .668 1954 Unknown [id number] 2.16.840.1.467754.3.579.2 .668 1954 Unknown [id number] 2.16.840.1.754168.3.579.2 .593 1954 Unknown [id number] 2.16.840.1.948992.3.579.2 .593 1954 Unknown [id number] 2.16.840.1.523280.3.579.2 .593 1954 Unknown [id number] 2.16.840.1.342765.3.579.2 .593 1954 Unknown [id number] 2.16.840.1.344436.3.579.2 .593 1954 Unknown [id number] 2.16.840.1.037500.3.579.2 .593 1954 Unknown [id number] 2.16.840.1.340854.3.579.2 .727 1954 Unknown [id number] 2.16.840.1.958471.3.579.2 .727 1954 Unknown [id number] 2.16.840.1.702177.3.579.2 .727 1954 Unknown [id number] 2.16.840.1.555894.3.579.2 .1259 1954 Unknown [id number] 2.16.840.1.594372.3.579.2 .1259 1954 Unknown [id number] 2.16.840.1.220476.3.579.2 .1259 1954 Unknown [id number] 2.16.840.1.519498.3.579.2 .1259 1954 Unknown [id number] 2.16.840.1.977769.3.579.2 .1259 Unknown Social History Date Type Detail Facility Start: 09-24-1972 End: 09-19-2024 Tobacco smoking status NHIS Current every day smoker [place] Start: 08-02-1971 End: 09-24-2022 History of tobacco use Cigarette Smoker [place] Start: 08-09-2019 End: 09-26-2023 Cigarettes smoked current (pack per day) - Reported [facility] Start: 08-09-2019 End: 12-20-2024 Alcohol intake Current drinker of alcohol (finding) [place] Start: 12-29-2018 History SDOH Alcohol Frequency 4 [place] Start: 12-29-2018 History SDOH Alcohol Std Drinks 1 [place] Start: 12-29-2018 History SDOH Social Connections Get Together 2 [place] Start: 12-29-2018 History SDOH Social Connections Living 3 [place] Start: 12-29-2018 History SDOH Physical Activity DPW 0 [place] Start: 12-29-2018 History SDOH Financial 5 [place] Start: 08-16-2017 Tobacco Comment Less than a pack a day [place] Start: 08-16-2017 Alcohol Comment Occasionally [place] Start: 1955 Sex Assigned At Not on file [place] Tobacco smoking stat [facility] Tobacco smoking consumption unknown [facility] Start: 09-26-2023 End: 03-28-2024 Gender identity Not on file [facility] Start: 04-21-2023 End: 09-27-2023 Tobacco smoking status Ex-smoker (finding) [facility] Tobacco smoking status Never [facility] Start: 1955 Sex Assigned At Female [facility] Start: 09-24-1972 End: 09-24-2022 History of tobacco use Current smoker [facility] Start: 09-27-2023 End: 09-19-2024 Tobacco use and exposure Smokeless tobacco non-user [facility] Do you belong to any clubs or organizations such as jain groups, unions, fraternal or athletic groups, or [...] Not at all [facility] (I/We) worried wheefrain er (my/our) food would run out before [...] Barr leandro Nam Clinical Notes 04-21-2023 to 12-20-2024 Hector Arellano MD - 12/20/2024 11:20 AM Pino Hopkins MD - 09/28/2024 2:33 PM Pino Hopkins MD - 09/28/2024 2:33 PM Pino Hopkins MD - 09/28/2024 2:33 PM EDTPatient Instructions Note Date & Type Note Facility 12-20-2024 History of Present illness Narrative Subjective Patient ID: Akil Chacon is a 69 y.o. female who presents for Throat Problem (3 month check ) Peroxide gargles helping tonsil stones. No throat or ear pain Family History Problem Relation Name Age of [...] Pablito Henley Drug abuse Daughter Alysha Castillo Asthma Son Pablito Bringman Drug abuse Daughter Alysha Castillo Active Ambulatory Problems Diagnosis Date Noted HTN (hypertension), benign 12/25/2015 Lung nodule 09/03/2017 Osteopenia 07/03/2015 Postoperative hypothyroidism 12/25/2015 Encounter for long-term (current) use of medications 04/01/2023 Colon cancer screening 04/01/2023 Centrilobular emphysema (HCC) 09/27/2023 Seasonal allergic rhinitis due to pollen 09/27/2023 Medicare annual wellness visit, subsequent 03/28/2024 Encounter for screening mammogram for malignant neoplasm of breast 04/27/2024 Menopause 04/27/2024 Tobacco user 04/27/2024 Type 2 diabetes mellitus without complication, without long-term current use of insulin (HCC) 06/12/2024 Bronchiolectasis (HCC) 09/13/2024 Chronic sinusitis 09/13/2024 nursing home current use of inhaled steroid 09/13/2024 Nicotine dependence, cigarettes, with unspecified nicotine-induced disorders 09/13/2024 BMI 30.0-30.9,adult 10/10/2024 Chronic respiratory failure with hypoxia ([facility]) 10/10/2024 Tonsillith 12/20/2024 Resolved Ambulatory Problems Diagnosis Date Noted Bronchiectasis without complication ([facility]) 12/25/2016 Prediabetes 12/29/2018 COPD with acute exacerbation ([facility]) 04/27/2024 Critical illness myopathy 09/13/2024 Past Medical History: Diagnosis Date Acute sinusitis, recurrence not specified, unspecified location Allergic Benign essential hypertension Chronic sinusitis, unspecified location Cigarette nicotine dependence with nicotine-induced disorder Fracture of nasal bones 1961 GERD (gastroesophageal reflux disease) Hypothyroidism Multiple pulmonary nodules Overweight Steroid-induced hyperglycemia Substance abuse ([facility]) Past Surgical History: Procedure Laterality Date BREAST SURGERY BRONCHOSCOPY 04/04/2018 BRONCHOSCOPY 03/23/2022 BRONCHOSCOPY 2022 CATARACT EXTRACTION Bilateral SECTION, LOW TRANSVERSE SECTION, LOW TRANSVERSE COSMETIC SURGERY 2006 THYROIDECTOMY TUBAL LIGATION No Known Allergies Current [...] After use, clean tip and replace cap. Tmldigwbfic-Xlxblmflx-Zdqppc (Trelegy Ellipta) 100-62.5-25 MCG/ACT aerosol powder Inhale levothyroxine (Synthroid, Levoxyl) 112 MCG tablet TAKE 1 TABLET BY MOUTH IN THE MORNING BEFORE MEALS 30 tablet 11 losartan (Cozaar) 50 MG tablet TAKE 1 TABLET BY MOUTH DAILY 30 tablet 11 metFORMIN XR (Glucophage-XR) 500 MG 24 hr tablet Take 1 tablet (500 mg) by mouth in the morning. Take with meals. Do not crush, chew, or split. 90 tablet 3 Multiple Vitamin (MULTI-DAY PO) Take by mouth Oyster Shell Calcium 500 MG tablet every 12 (twelve) hours sodium chloride 0.9 % nebulizer solution Take 3 mL by nebulization if needed for wheezing No current facility-administered medications on file prior to visit. Objective Last Recorded Vitals Vitals: 12/20/24 1117 BP: 124/69 Pulse: 70 ENT Physical Exam Constitutional Appearance: patient appears well-developed and well-nourished, Oral Cavity/Oropharynx OC/OP comments: OC/OP/IDL - no mass or ulcer Neck Neck comments: Supple, FROM, No LAD Assessment/Plan Diagnoses and all orders for this visit: Abnormal positron emission tomography (PET) scan Tonsillith No sign of tonsil or other H&N neoplasm. Peroxide gargles controlling liths. Continue quarterly exams documented in this encounter [facility] 10-10-2024 Note [facility] Cardiology Clinic Note Chief Complaint: Patient is here today for test results for his stress test and ECHO. Patient states she feels pretty good. Patient states her shortness of breath improved, patient states she has been walking more. Patient states she just came from Dr. Head office and he told her everything looked good. HPI: Akil Chacon is a 69 y.o. 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 Review of Systems Constitutional: Negative. Past Medical History She has a past medical history of COPD (chronic obstructive pulmonary disease) (CMS/HCC), Diabetes mellitus (CMS/[facility]), and Hypertension. Surgical History She has a [...] 112 mcg by mouth before breakfast., Disp: , Rfl: losartan (Cozaar) 50 mg tablet, Take 50 [...] kg (170 lb) SpO2 96% BMI 29.18 kg/m??? Physical Examination: GENERAL: alert and oriented [...] normal EKG Patient Name: AKIL CHACON MRN: [facility]:[id number] date: 1955 Sex: F Assigned Patient Location: CT Current Patient Location: CT Accession/Order Number: [id number] Exam Date: 08/11/2024 14:51 Report Date: 08/11/2024 [...] ESOPHAGUS: Unremarkable. HEART: Within normal limits Imaging [id number] [facility] 2 Patient name: AKIL CHACON PERICARDIAL EFFUSION: Small CORONARY ARTERY CALCIFICATION: None MEDIASTINUM: No adenopathy. No pneumoperitoneum. No mediastinal he (more content not included)... [facility] 09-28-2024 History of Present illness Narrative Associated [...] follow with pulmonology. documented in this encounter [facility] 09-19-2024 History of Present illness Narrative [...] Father Patricio Deuschle Heart failure Father Patricio Edwards Cancer Brother Huber Edwards Lung cancer Brother Huber Edwards Diabetes Maternal Grandmother Jazz Alfred Asthma Son Pablito Henley Drug abuse Daughter [...] long-term current use of insulin 06/12/2024 Bronchiolectasis (CMS/HCC) 09/13/2024 Chronic sinusitis 09/13/2024 Critical illness myopathy 09/13/2024 nursing home current use of inhaled steroid 09/13/2024 Nicotine dependence, cigarettes, with unspecified nicotine-induced disorders 09/13/2024 Resolved Ambulatory Problems Diagnosis Date Noted Bronchiectasis without complication (CMS/HCC) 12/25/2016 Prediabetes 12/29/2018 Past Medical History: Diagnosis Date Acute sinusitis, recurrence not specified, unspecified location Allergic Benign essential hypertension (CMS/HCC) Chronic respiratory failure with hypoxia (CMS/[facility]) Chronic sinusitis, unspecified location Cigarette nicotine dependence with nicotine-induced disorder Fracture of nasal bones 1961 GERD (gastroesophageal reflux disease) Hypothyroidism (CMS/HCC) Multiple pulmonary nodules Overweight Steroid-induced hyperglycemia Substance abuse Past Surgical History: Procedure Laterality Date BREAST SURGERY BRONCHOSCOPY 04/04/2018 BRONCHOSCOPY 03/23/2022 BRONCHOSCOPY 2022 CATARACT EXTRACTION Bilateral SECTION, LOW TRANSVERSE SECTION, LOW TRANSVERSE COSMETIC SURGERY 2006 THYROIDECTOMY TUBAL LIGATION No Known Allergies Current [...] After use, clean tip and replace cap. Pcdiietmnpk-Bevzfxjev-Joqakn (Trelegy Ellipta) 100-62.5-25 MCG/ACT aerosol powder Inhale [...] - numeric: 1/10 documented in this encounter [facility] 09-06-2024 Note [facility] Cardiology Clinic Note Chief Complaint: New [...] that time, she had chest pain, her toy trains and accessories salesperson did a number of tests and told [...] normal EKG Patient Name: AKIL CHACON MRN: [facility]:[id number] date: 1955 Sex: F Assigned Patient Location: CT Current Patient Location: CT Accession/Order Number: [id number] Exam Date: 08/11/2024 14:51 Report Date: 08/11/2024 [...] ESOPHAGUS: Unremarkable. HEART: Within normal limits Imaging [id number] [facility] 2 Patient name: AKIL CHACON PERICARDIAL [...] from recent prio (more content not included)... [facility] 04-27-2024 History of Present illness Narrative Associated Problem(s): Tobacco user The patient has been advised of the risks of continued smoking: stroke, [place], all forms of cancer, lung disease, and [...] trigger Associated Problem(s): COPD with acute exacerbation ([facility]) Recent hospitalization about 2 weeks ago Is [...] 50 MCG/ACT nasal spray 2 sprays, Daily Jfvmaghpqjx-Reswdkbbi-Vcwoul (Trelegy Ellipta) 100-62.5-25 MCG/ACT aerosol powder Inhale [...] of the risks of continued smoking: stroke, [place], all forms of cancer, lung disease, and [...] Feeling much better documented in this encounter [facility] 04-27-2024 Instructions Barbie Dhaliwal NP - 04/27/2024 11:00 AM EST Mammogram and bone density : late May early June, [facility] should call, , ext [phone] Labs mid 06/20 documented in this encounter [facility] 03-28-2024 History of Present illness Narrative [...] daily Aspirin therapy. documented in this encounter [facility] 04-21-2023 Note Chief Complaint consultation for screening colonoscopy [facility] Staff 67 year old female [...] 1 puff(s), Inhalation, Daily Flonase 0.05 mg/inh [place], 100 mcg, Nasal, Daily levothyroxine 112 mcg [...] of lung: Brother. (more content not included)... [facility] Comment on above: Result Comment: Elec tronically Signed By: ISIS ALCANTAR, Kale Thurman\Date and Time Signed: 04/21/23 14:46 EST Evaluation + Plan note No data available for this section General Surgery [place] Evaluation note No assessment inform ation available [facility] Work Phone: Evaluation note Diagnosis HTN (hypertension), [...] visit, subsequent- Primary documented in this encounter [facility] HealthcareEvaluation note* Diagnosis HTN (hypertension), benign [...] Tobacco use disorder documented in this encounter [facility] note* [...] insulin (CMS/HCC)- Primary documented in this encounter [facility] HealthcareEvaluation note* Diagnosis HTN (hypertension), benign (CMS/HCC)- [...] Primary Chronic tonsillitis documented in this encounter [facility] HealthcareEvaluation note* Diagnosis HTN (hypertension), benign (CMS/HCC)- [...] Centrilobular emphysema (CMS/HCC) documented in this encounter [facility] HealthcareEvaluation note* Diagnosis HTN (hypertension), benign- Primary Essential hypertension, benign Bronchiectasis without complication (HCC) Postoperative hypothyroidism Postsurgical hypothyroidism Encounter for long-term (current) use of medications Encounter for long-term (current) use of other medications Prediabetes Other abnormal glucose Screening mammogram for breast cancer Screening, lipid Colon cancer screening Special screening for malignant neoplasms, colon HTN (hypertension), benign- Primary Essential hypertension, benign Seasonal allergic rhinitis due to pollen Postoperative hypothyroidism Postsurgical hypothyroidism Centrilobular emphysema (HCC) Bronchiectasis without complication (HCC) Medicare annual wellness visit, subsequent- Primary COPD with acute exacerbation (HCC)- Primary Centrilobular emphysema (HCC) HTN (hypertension), benign Essential hypertension, benign Postoperative hypothyroidism Postsurgical hypothyroidism Encounter for screening mammogram for malignant neoplasm of breast Prediabetes Other abnormal glucose Osteopenia, unspecified location Menopause Symptomatic menopausal or female climacteric states Tobacco user Tobacco use disorder Type 2 diabetes mellitus without complication, without long-term current use of insulin (HCC)- Primary HTN (hypertension), benign Essential hypertension, benign Bronchiolectasis (HCC) Bronchiectasis without acute exacerbation Centrilobular emphysema (HCC) Abnormal positron emission tomography (PET) scan- Primary Tonsillith documented in this encounter [facility] HealthcareHospital Discharge instructions No data available for this section General Surgery [place] note No data available for this section General Surgery [place] Summary Purpose Family History No Family History Records FoundNo Family History Records FoundNo Family History Records FoundNo Family History Records FoundNo Family History Records Found No data available for this section No Family History Records FoundNo Family History Records FoundNo Family History Records FoundNo Family History Records Found Advance Directives No Advanced Directives Records FoundDocuments on File Type Date Recorded Patient Administrative Library Assistant Expl anation Advance Directives and Living Will Power of Electrical Repairer Reason for Referral Status Reason Specialty Diagnoses / Procedures Referre d By Contact Referred To Contact Open Radiology Diagnoses Cigarette nicotine dependence with nicotine-induced disorder Procedures CT LUNG SCREENING (ANNUAL) Shelbi Thurman, C.O.D. AUDIT CLERK - COLORER MACHINE [address] [place] [address] Assessments Diagnosis Cigarette nicotine dependence with nicotine-induced disorder Unspecified drug-induced mental disorder Additional Source Comments INFORMATION SOURCE (unrecogn ized section and content) DATE CREATED AUTHOR 10/20/2017 [facility] DATE CREATED AUTHOR AUTHOR'S ORGANIZ ATION 04/04/2018 [facility] DATE CREATED AUTHOR AUTHOR'S ORGANIZ ATION 04/09/2018 [facility] DATE CREATED AUTHOR AUTHOR'S ORGANIZ ATION 09/26/2019 [facility] DATE CREATED AUTHOR AUTHOR'S ORGANIZ ATION 10/02/2022 [facility] DATE CREATED AUTHOR AUTHOR'S ORGANIZ ATION 06/15/2023 [facility] DATE CREATED AUTHOR AUTHOR'S ORGANIZ ATION 06/15/2023 [facility] DATE CREATED AUTHOR AUTHOR'S ORGANIZ ATION 10/13/2024 [facility] DATE CREATED AUTHOR AUTHOR'S ORGANIZ ATION 12/22/2024 [facility] d[facility] Specialists EPIC Care Teams (unrecognized sec tion and content) Machine Group Leader Relationship Specialty Start Date End Date Ottoniel Fuchs MD [address] [place] [address] PCP - General 12/21/13 Team Status: Inactive Member Role Status Dates Kale Hanna MD FACS Attending Provider Active Start: May 12, 2023 End: May 12, 2023 Machine Group Leader Relationship Specialty Start Date End Date Antonio Hopkins MD [address] [place] [address] PCP - General Family Medicine 10/21/22 Antonio Hopkins MD [address] [place] [address] PCP - Jaycee DAVIS 11/25/23 Machine Group Leader Relationship Specialty Start Date End Date Antonio Hopkins MD [address] [place] [address] PCP - General Family Medicine 10/21/22 Antonio Hopkins MD [address] [place] [address] PCP - Jaycee DAVIS 11/25/23 Machine Group Leader Relationship Specialty Start Date End Date Antonio Hopkins MD [address] [place] [address] PCP - General Family Medicine 10/21/22 Antonio Hopkins MD [address] [place] [address] PCP Bernard Champion MA 11/25/23 Machine Group Leader Relationship Specialty Start Date End Date Antonio Hopkins MD [address] [place] [address] PCP - General Family Medicine 10/21/22 Antonio Hopkins MD [address] [place] [address] PCP - Jaycee DAVIS 11/25/23 Delmar Bowen MA Family Medicine 04/18/24 Machine Group Leader Relationship Specialty Start Date End Date Antonio Hopkins MD [address] [place] [address] PCP - General Family Medicine 10/21/22 Delmar Bowen MA [facility] 04/18/24 Machine Group Leader Relationship Specialty Start Date End Date Antonio Hopkins MD [address] [place] [address] PCP - General Family Medicine 10/21/22 Delmar Bowen MA [facility] 04/18/24 Machine Group Leader Relationship Specialty Start Date End Date Antonio Hopkins MD [address] [place] [address] PCP - General Family Medicine 10/21/22 Antonio Hopkins MD [address] [place] [address] PCP - [facility] 11/25/23 Delmar Bowen MA [facility] 04/18/24 Machine Group Leader Relationship Specialty Start Date End Date Antonio Hopkins MD [address] [place] [address] PCP - General Family Medicine 10/21/22 Delmar Bowen MA [facility] 04/18/24 Machine Group Leader Relationship Specialty Start Date End Date Antonio Hopkins MD [address] [place] [address] PCP - General Family Medicine 10/21/22 Delmar Bowen MA Family [facility] 04/18/24 Machine Group Leader Relationship Specialty Start Date End Date Antonio Hopkins MD [address] [place] [address] PCP - General Family Medicine 10/21/22 Antonio Hopkins MD [address] [place] [address] PCP - Jaycee ID 11/25/23 Delmar Bowen [facility] 04/18/24 Machine Group Leader Relationship Specialty Start Date End Date Antonio Hopkins MD [address] [place] [address] PCP - General Family Medicine 10/21/22 Antonio Hopkins MD [address] [place] [address] PCP - Jaycee ID 11/25/23 Delmar Bowen [facility] 04/18/24 Machine Group Leader Relationship Specialty Start Date End Date Antonio Hopkins MD [address] [place] [address] PCP - General Family Medicine 10/21/22 Antonio Hopkins MD [address] [place] [address] PCP - Jaycee ID 11/25/23 Delmar Bowen MA [facility] 04/18/24 Machine Group Leader Relationship Specialty Start Date End Date Antonio Hopkins MD [address] [place] [address] PCP - General Family Medicine 10/21/22 Antonio Hopkins MD [address] [place] [address] PCP - Jaycee DAVIS 11/25/23 Delmar Bowen MA [address] [place] [address] Family Medicine 04/18/24 Machine Group Leader Relationship Specialty Start Date End Date Antonio Hopkins MD [address] [place] [address] PCP - General Family Medicine 10/21/22 Antonio Hopkins MD [address] [place] [address] PCP Bernard Champion MA 11/25/23 Machine Group Leader Relationship Specialty Start Date End Date Antonio Hopkins MD [address] [place] [address] PCP - General [facility] Medicine 10/21/22 Antonio Hopkins MD [address] [place] [address] PCP - Jaycee DAVIS 11/25/23 Goals (unrecognized section and content) Goals may be documented in a n alternate section Reason for Visit (unrecogniz ed section and content) Reason Comments Medicare Annual Wellness Visit Subsequen t Wellness Reason Onset Date Comments Med Refill 06/12/2024 Reason Comments Abnormal PET Reason Comments Follow-up 6m Reason Comments Throat Problem 3 month check FOR RECORDS PERTAINING TO PATIENTS WHO ARE [...] BE BASED ON THE PRIMARY CLINICAL RECORDS. [facility] [email or web address] [facility]. provides no warranty or guarantee of the accuracy or completeness of information in this document.
== END 2025-01-03 09:55 | disposition home or self-care (01) ==
LOC: CARD 09:54
PROVIDERS: PCP Family Medicine; Visit Provider Internal Medicine Interventional Cardiology
DX: I31.39 Other pericardial effusion (noninflammatory) (principal); I50.32 Chronic diastolic (congestive) heart failure
CPT/HCPCS: 93308

== ENCOUNTER 2025-01-27 23:38 | Emergency (ER) | payer MEDICARE, SELFPAY ==
[2025-01-27 23:42] VITALS: BP 167/79; PULSE 76; TEMP 36.7; O2SAT 92; BMI 29.2
[2025-01-27 23:44] VITALS: BP 167/79; O2SAT 86
[2025-01-27 23:50] VITALS: PULSE 74
[2025-01-27 23:53] VITALS: BP 115/78; PULSE 79; O2SAT 92
--- NOTE | 2025-01-27 23:55 | ECG_ITS ---
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 Measurements Intervals [place] Rate: 75 P: 54 SD: 142 QRS: 87 QRSD: 74 T: 78 QT: 384 QTc: 412 Interpretive Statements 1100 Sinus rhythm 9110 normal ECG Compared to ECG 04/13/2024 15:38:10 ST (T wave) deviation no longer present Possible ischemia no longer present Electronically Signed On 01-28-2025 13:28:40 EDT by SIMON PALM M.D.
--- NOTE | 2025-01-27 23:55 | XR_ITS ---
The [address] [address] Patient Name: ERICA CHACON MRN: [id number] date: 1955 Sex: F Assigned Patient Location: ER Current Patient Location: Accession/Order Number: [id number] Exam Date: 01/27/2025 23:59 Report Date: 01/28/2025 08:31 At the request of: CORNELIO TEMPLETON MD Procedure: XR chest 1V Single view chest: CLINICAL HISTORY: Chest pain COMPARISON: None FINDINGS: The heart is normal in size. Mild interstitial changes. No consolidation pneumothorax pleural effusion or free air. The pulmonary vasculature is normal. Mediastinum and hilar regions are unremarkable. Visualized bones are intact. XR/XR chest 1V IMPRESSION: NO ACUTE PROCESS. Impression dictated by: Bob Painting Jr., D.OTj 01/28/2025 8:31 AM Dictation Location: [facility] Electronically authenticated by: [id number] Y Date: 01/28/2025 08:31
--- NOTE | 2025-01-27 23:56 | ED.GENADUL1 ---
HPI HPI - General Adult General Chief complaint: Chest Pain Stated complaint: chest pain Time Seen by Provider: 01/27/25 23:39 Source: patient Mode of arrival: walk-in Limitations: no limitations History of Present Illness HPI narrative: 69-year-old female presents for chest pain. It started about an hour ago and was associated with nausea and some shortness of breath. She states she still has it but it is not as bad as it was. It is in the middle of her chest and it does not seem to radiate. No trauma or fever or cough recently. She has no personal history of CAD. Related Data Home Medications ?Medication ?Instructions ?Recorded ?Confirmed aspirin 81 mg chewable tablet 81 mg PO QDAY 09/24/22 01/27/25 (Aspirin Childrens) levothyroxine 112 mcg tablet 112 mcg PO .daily 09/24/22 01/27/25 (Synthroid) losartan 50 mg tablet 50 mg PO .daily 09/24/22 01/27/25 multivitamin 1 tab PO QDAY 09/24/22 01/27/25 soft lens rinse,store solution 04/29/23 04/29/23 fluticasone fur. 100 mcg-umeclid 1 inh inhalation DAILY 04/13/24 01/27/25 62.5 mcg-vilant 25 mcg inhalat.powder (Trelegy Ellipta) calcium 500 mg tablet 500 mg PO DAILY 01/27/25 01/27/25 metformin 500 mg tablet 500 mg PO DAILY 01/27/25 01/27/25 sodium chloride 0.9 % for 3 ml inhalation DAILY 01/27/25 01/27/25 nebulization Previous Rx's ?Medication ?Instructions ?Recorded amlodipine 5 mg tablet 5 mg PO QD #30 tabs 10/02/22 albuterol sulfate 90 mcg/actuation 2 inh inhalation Q6H PRN shortness 04/15/24 aerosol inhaler (Ventolin HFA) of breath or wheezing #6.7 grams Allergies Allergy/AdvReac Type Severity Reaction Status Date / Time No Known Drug Allergies Allergy Verified 01/27/25 23:48 Opioid HPI Opioid Management Most Recent Opioid Data: Last Pain Scale 3 01/27/25, 23:58 Last Pain Intensity 0 10/01/22, 10:57 Last ORT Total Score 2 04/13/24, 18:43 Last ORT Risk Category Low Risk 04/13/24, 18:43 Review of Systems ROS Narrative A ten point review of systems is negative except as noted above. [facility] Medical History (Updated 01/28/25 @ 01:19 by Mariusz Lima MD) Hypothyroidism (acquired) ?E03.9 - Hypothyroidism, unspecified (ICD-10) Hypertension, essential ?I10 - Essential (primary) hypertension (ICD-10) COPD (chronic obstructive pulmonary disease) ?J44.9 - Chronic obstructive pulmonary disease, unspecified (ICD-10) Normal colonoscopy Haemophilus influenzae infection ?A49.2 - Hemophilus influenzae infection, unspecified site (ICD-10) Acute respiratory acidosis ?J96.02 - Acute respiratory failure with hypercapnia (ICD-10) Acute exacerbation of bronchiectasis ?J47.1 - Bronchiectasis with (acute) exacerbation (ICD-10) Surgical History H/O tubal ligation ?Z98.51 - Tubal ligation status (ICD-10) H/O thyroidectomy ?E89.0 - Postprocedural hypothyroidism (ICD-10) H/O laparoscopy ?Z98.890 - Other specified postprocedural states (ICD-10) Previous section ?Z98.891 - History of uterine scar from previous surgery (ICD-10) Cataract extraction status ?Z98.49 - Cataract extraction status, unspecified eye (ICD-10) History of bronchoscopy ?Z98.890 - Other specified postprocedural states (ICD-10) Family History Other Family history of COPD (chronic obstructive pulmonary disease) Family history of cancer Family history of diabetes mellitus Heart disease Hyperlipidemia Social History Within the past year, how often did you have a drink containing alcohol: 2-4 times a month Smoking status: Former smoker Non-prescribed substance use: denies use Previous occupational history: retired Highest level of school completed/degree received: high school graduate Little interest or pleasure in doing things: not at all Feeling down, depressed, or hopeless: not at all Feel stressed/tense/nervous/anxious/difficulty sleeping: not at all Exam Narrative Exam Narrative: Nurses note and vital signs reviewed and patient is not hypoxic. General:The patient appears well and in no apparent distress.Patient is resting comfortably on cart. Skin:Warm, dry, no pallor noted.There is no rash noted. Head:Normocephalic, atraumatic Eye: Normal conjunctiva, no drainage Ears, Nose, Mouth, and Throat: oral mucosa is moist. Nares patent. Cardiovascular:Regular Rate and Rhythm Respiratory:Patient is in no distress, no accessory muscle use, lungs are clear to auscultation, no wheezing, rales or rhonchi Back:non-tender GI: Soft and nontender Musculoskeletal: The patient has no evidence of calf tenderness, no pitting edema, symmetrical pulses noted bilaterally Neurological:A&O, normal speech Psychiatric:Cooperative Constitutional Vital Signs, click to edit/add: Last Vital Signs Temp 98.0 F 01/27/25 23:42 Pulse 69 01/28/25 01:10 Resp 17 01/28/25 01:10 BP 119/65 01/28/25 01:00 Pulse Ox 91 L 01/28/25 01:10 O2 Del Method Room Air 01/27/25 23:42 Course Vital Signs Vital signs: Vital Signs Temperature 98.0 F 01/27/25 23:42 Pulse Rate 76 01/27/25 23:42 Respiratory Rate 16 01/27/25 23:42 Blood Pressure 167/79 H 01/27/25 23:42 Pulse Oximetry 92 L 01/27/25 23:42 Oxygen Delivery Method Room Air 01/27/25 23:42 Temperature 98.0 F 01/27/25 23:42 Pulse Rate 69 01/28/25 01:10 Respiratory Rate 17 01/28/25 01:10 Blood Pressure 119/65 01/28/25 01:00 Pulse Oximetry 91 L 01/28/25 01:10 Oxygen Delivery Method Room Air 01/27/25 23:42 Medical Decision Making MDM Narrative Medical decision making narrative: Her workup including 2 sets of troponin is negative. She will be discharged home but will follow-up with her family doctor. She reports that she had a stress test about 2 months ago that was negative. She sees a contracts officer and has the opportunity to follow-up with him as well. At this point there is no evidence of acute coronary syndrome so she will be discharged home and follow-up as an outpatient. Treatment diagnosis and follow-up were discussed with the patient and her . Differential Diagnosis Differential Diagnosis: STEMI, NSTEMI, chest pain, GERD Lab Data Lab results reviewed: Yes I reviewed the patient's lab results Labs: Lab Results 01/27/25 01/28/25 Range/Units 23:50 00:38 WBC 7.7 (4.0-11.0) 10^3/uL RBC 4.70 (4.20-5.40) 10^6/uL Hgb 14.8 (12.0-16.0) g/dL Hct 44.1 (36.0-48.0) % MCV 93.8 (81.0-99.0) fL MCH 31.5 (26.7-34.0) pg MCHC 33.6 (29.9-35.2) g/dL RDW 13.9 (11.0-15.0) % Plt Count 241 (150-450) 10^3/uL MPV 9.4 L (9.5-13.5) fL Neut % (Auto) 46.9 (43.0-75.0) % Lymph % (Auto) 37.1 (20.5-60.0) % Vance % (Auto) 11.9 (1.7-12.0) % Eos % (Auto) 3.5 (0.9-7.0) % Baso % (Auto) 0.5 (0.2-2.0) % Neut # (Auto) 3.6 (1.4-6.5) 10^3/uL Lymph # (Auto) 2.9 (1.2-3.8) 10^3/uL Vance # (Auto) 0.9 H (0.3-0.8) 10^3/uL Eos # (Auto) 0.3 (0.0-0.7) 10^3/uL Baso # (Auto) 0.0 (0.0-0.1) 10^3/uL Abs Immat Gran (auto) 0.01 (0.00-0.03) 10^3/uL Imm/Tot Granulo (auto) 0.1 (0.0-0.5) % Sodium 143 (136-145) mmol/L Potassium 4.1 (3.5-5.1) mmol/L Chloride 106 (98-107) mmol/L Carbon Dioxide 28.1 (21.0-32.0) mmol/L Anion Gap 13.0 BUN 13.0 (7.0-18.0) mg/dL Creatinine 0.81 (0.55-1.02) mg/dL Est GFR ( Amer) >60 (>=60 mL/min/1.73m^2) Est GFR (Non-Af Amer) >60 (>=60 mL/min/1.73m^2) BUN/Creatinine Ratio 16.0 Glucose 87 (74-106) mg/dL Calcium 8.8 (8.5-10.1) mg/dL Troponin I High Sens 5.8 6.2 (4.0-51.3) pg/mL Imaging Data Chest x-ray: My impression: No acute findings ECG Data Attestation: I personally reviewed and interpreted this ECG as follows: (EKG in my interpretation shows normal sinus rhythm with rate of 75 and no acute change.) Discharge Plan Discharge Chief Complaint: Chest Pain Clinical Impression: Chest pain Patient Disposition: Home, Self-Care Time of Disposition Decision: 01:19 Condition: Good Mode of Transportation: Private Vehicle Prescriptions / Home Meds: No Action Trelegy Ellipta 100-62.5-25 mcg blister with device 1 inh inhalation DAILY albuterol sulfate [Ventolin HFA] 90 mcg/actuation HFA aerosol inhaler 2 inh inhalation Q6H PRN (Reason: shortness of breath or wheezing) Qty: 6.7 0RF metformin 500 mg tablet 500 mg PO DAILY sodium chloride 0.9 % solution for nebulization 3 ml INHALATION DAILY calcium 500 mg tablet 500 mg PO DAILY levothyroxine [Synthroid] 112 mcg tablet 112 mcg PO .daily losartan 50 mg tablet 50 mg PO .daily multivitamin Tablet 1 tab PO QDAY aspirin [Aspirin Childrens] 81 mg tablet,chewable 81 mg PO QDAY amlodipine 5 mg Tablet 5 mg PO QD Qty: 30 0RF (DME) soft lens rinse,store solution Aerosol,[place] See Rx Instructions .ROUTE Rx Instructions: As directed Print Language: Pashto Instructions: Chest Wall Pain (ED) Referrals: Antonio Riggins MD [Primary Care Provider, Family Practice]
--- OUTSIDE RECORDS SUMMARY | 2025-01-27 23:59 | XMS_ITS | Clinical Summary ---
Author Organization [facility] Address [address] [place] [address] Care Team Providers Care Animal Attendant Name Role Phone Antonio Riggins MD Primary Care Provider [phone] Allergies No known active allergies Medications albuterol [...] 30.0-30.9,adult 10/10/2024 Bronchiolectasis 09/13/2024 Chronic sinusitis 09/13/2024 care home current use of inhaled steroid 025 Type [...] Tobacco user 05/31/2014 Hypothyroidism 05/21/2010 Menopause 05/21/2010 Family History Medical History Relation Name Comments [...] Risk Screening 08/02/2019 COVID-19 Vaccine ( season) 2024 02/04/2021 Influenza Vaccine (#1) 2024 , 03/08/2023, 03/30/2019, Additional history exists Adult Tetanus 12/24/2025 12/25/2015 Colonoscopy 05/12/2033 05/12/2023 Colorectal Cancer Screening 05/12/2033 Zoster Vaccines Completed 12/29/2018, 01/24, 02/12/2015 Pneumococcal Vaccine: 50+ Years Completed 11/02/2022, 02/12/2015, 01/24/2015 HIB Vaccines Aged Out No longer eligi [...] patient's age to complete this topic Insurance [facility] MEDICARE ADVANTAGE Care Teams Animal Attendant Relationship Specialty Start Date End Date Antonio Riggins MD [address] [place] [address] PCP - General Family Medicine 09/06/24
--- OUTSIDE RECORDS SUMMARY | 2025-01-27 23:59 | XMS_ITS | Clinical Summary ---
Author Organization [facility] Healthcare Address [address] [place] [address] Care Team Providers Care Angledozer Operator Name Role Phone Antonio Riggins MD Primary Care Provider [phone] Antonio Riggins MD Unavailable Allergies No known active allergies Medications [...] for wheezing Active albuterol HFA 90 mcg/act inhalerIndications :Bronchiectasis without complication (HCC) Inhale 2 puffs every 4 (four) hours if needed for wheezing 18 g 3 07/26/19 24 Active Fluticasone-Umecli din-Vilant (Trelegy Ellipta) 100-62.5-25 MCG/ACT aerosol powder Inhale Active amLODIPine (Norvasc) 5 MG tabletIndications: Essential hypertension, benign Take 1 tablet (5 mg) by mouth Daily 30 tablet 06/22/19 25 026 Active losartan (Cozaar) 50 MG tabletIndications: Essential hypertension, benign TAKE 1 TABLET BY MOUTH DAILY 30 tablet 08/29/19 25 Active levothyroxine (Synthroid, Levoxyl) 112 MCG tabletIndications: Postoperative hypothyroidism TAKE 1 TABLET BY MOUTH IN THE MORNING BEFORE MEALS 30 tablet 08/29/19 25 Active Oyster Shell Calcium 500 MG tablet every 12 (twelve) hours Active metFORMIN XR (Glucophage-XR) 500 MG 24 hr tabletIndications: Type 2 diabetes mellitus without complication, without long-term current use of insulin (HCC) Take 1 tablet (500 mg) by mouth in the morning. Take with meals. Do not crush, chew, or split. 90 tablet 3 09/29/19 25 Active Active Problems Problem Noted Date Diagnosed Date Tonsillith 12/20/2024 BMI 30.0-30.9,adult 10/10/2024 Chronic respiratory failure with hypoxia 025 Bronchiolectasis 09/13/2024 Assessment & Plan (09/28/2024 2:32 PM EDT): Symptoms stable and follow with pulmonology. Chronic sinusitis 09/13/2024 senior care current use of inhaled steroid 025 Nicotine [...] of the risks of continued smoking: stroke, MS, all forms of cancer, lung disease, and [...] hospitalization for hypoxia Does follow with dr smith Current meds: trelegy, albuterol prn, flonase, Is [...] much better Continue inhalers, cont with dr smith Goal of smoking cessation Prediabetes 12/29/2018 06/12/2024 Bronchiectasis without complication 12/25/2016 04/27/2024 Assessment & Plan (09/27/2023 11:02 AM EDT): Breathing stable and follow up with pulmonology. Assessment & Plan (04/01/2023 1:58 PM EST): Breathing much improved and follow up with pulmonology. Encounters Date Type Department Care Team Description 12/20/2024 11:20 AM EDT Office Visit [facility] [place] [facility] [address] [place] [address] Analisa Mireles MD Abnormal positron emission tomography (PET) scan (Primary Dx); Tonsillith 12/20/2024 Bamboo flowsheet [facility] [place] [facility] [address] [place] [address] Analisa Mireles MD 12/20/2024 Travel from Last 3 Months Immunizations Immunization Administration [...] cancer Brother Huber Edwards Drug abuse Daughter 1 Alysha Castillo Drug abuse Daughter 2 Alysha Castillo Heart disease Father Patricio Deuschle Heart failure Father Patricio Deuschle Hypertension Father Patricio Deuschle Diabetes Maternal Grandmother Jazz [place] Arthritis Mother Becka Deuschle Cancer Mother Becka Deuschle Cervical cancer Mother Becka Deuschle Coronary artery disease Mother Becka Deuschle Diabetes Mother Becka Deuschle Emphysema Mother Becka Deuschle Heart disease Mother Becka Deuschle Stroke Mother Becka Deuschle Asthma Son 1 Pablito Valdezman Asthma Son 2 Pablito Valdezman Relation Name Status Comments Brother Huber Edwards Daughter 1 Alysha Castillo Alive Daughter 2 Alysha Castillo Alive Father Patricio Deuschle Maternal Grandmother [place] Mother Becka Deuschle Son 1 Pablito Valdezman Alive Son 2 Pablito Valdezman Alive Social History Tobacco Use Types Packs/Day [...] often do you attend chur ch or zoroastrian services? Never 09/26/2023 Do you belong to any clubs o r organizations such as restorationist groups, unions, fraternal or athletic groups, or [...] Recorded Patient Health Questionnaire-2 Score 0 03/28/2024 [facility] - [...] place to sleep or slept in a care home (including now)? No 09/26/2023 Comments Unknown Sex and Gender Information Value Date Recorded Sex Assigned at Not on file Legal Sex Female 4:12 PM EDT Gender Identity Not on file Sexual Orientation Not on file Last Filed Vital Signs Vital Sign Reading Time Taken Comments Blood Pressure 124/69 12/20/2024 11:17 AM EDT Pulse 70 12/20/2024 11:17 AM EDT Temperature 36.6 C (97.8 F) 09/28/2024 2:02 PM EDT Respiratory Rate 22 09/28/2024 2:02 PM EDT Oxygen Saturation 93% 09/28/2024 2:02 PM EDT Inhaled Oxygen Concentration - - Weight 77.6 kg (171 lb) 12/20/2024 11:17 AM EDT Height 162.6 cm (5' 4 ) 12/20/2024 11:17 AM EDT Body Mass Index 29.35 12/20/2024 11:17 AM EDT Plan of Treatment Upcoming Encounters Date Type Department Care Team (Late st Contact Info) Description 03/20/2025 9:10 AM EST Office Visit [facility] [place] [facility] [address] [facility] [address] [place] [id number] Analisa Mireles MD [address] [facility] [address] [place] [address] Health Maintenance Due Date Last Done Comments CT Colonography 1955 FIT-DNA 1955 FIT 1955 FOBT 1955 Lung Cancer Screening Shared Decision Making 1955 Sigmoidoscopy 1955 Diabetes: Retinopathy Screening 1965 Mammogram 06/23/2024 06/24/2023, 01/26, 02/19/2017, Additional history exists Diabetes: Hemoglobin A1C 12/03/2024 025, 09/26/2019, 01/03/2018 Influenza Vaccine (#1) 2024 , 03/08/2023, 03/30/2019, Additional history exists Medicare Annual Wellness (AWV) 03/28/2025 1 05/29/2023, 02/11/2018, 12/28/2017, Additional history exists Diabetes: Urine Protein Screening 06/05/2025 025 Colonoscopy 05/31/2033 05/31/2023, 08/2023, 05/12/2023, Additional history exists Colorectal Cancer Screening 05/31/2033 Pneumococcal Vaccine: 65+ Years Completed 11/02/2022, 11/02/2022, 02/12/2015, Additional history exists Procedures Procedure Name Priority Date/Time Associated Diagnosis Comments MM TOMOSYNTHESIS SCREENING BI 06/24/2023 3:38 PM EST COLONOSCOPY DIAGNOSTIC Routine 12:07 PM EST from Last 3 Months or Most Recently Relevant to Health Maintenance Results * MM TOMOSYNTHESIS SCREENING BI (06/24/2023 3:38 PM EST) Anatomical Region Laterality Modality Other 06/24/2023 3:38 PM EST Narrative 06/24/2023 3:39 [place] [address] Mammography Report Signed Patient: ERICA CHACON MR#: [id number] : 1955 Acct:[id number] Age/Sex: 67 / F ADM Date: 06/15/23 Loc: MAMMO Attending Dr: Antonio Riggins M.D. Ordering Physician: Antonio Riggins M.D. Results: Date of Service: 06/15/23 Follow Up: Procedure(s): MM tomosynthesis screening BI Accession Number(s): [id number] cc: Antonio Riggins M.D. Patient Name: ERICA CHACON MR#: [id number] : 1955 Exam Date: 06/15/2023 Ordering Doctor: [...] Treatments None Family Cancers None LOCATION: [facility] BREAST COMPOSITION: Scattered areas fibroglandular [...] Signed By: 06/24/23 1539 DD/ 1538 TD/TT: Fisher Spear: Procedure Note Radiology, Radiologist, - 06/24/2023 [place] [address] Mammography Report Signed Patient: ERICA CHACON AMR#: [id number] : 5Acct:[id number] Age/Sex: 67 / FADM Date: 06/15/23 Loc: MAMMO Attending Dr: Antonio Riggins M.D. Ordering Physician: Antonio Riggins M.D.Results: Date of Service: 06/15/23Follow Up: Procedure(s): MM tomosynthesis screening BI Accession Number(s): [id number] cc: Antonio Riggins M.D. Patient Name: ERICA CHACON MR#: [id number] : 1955 Exam Date: 06/15/2023 Ordering Doctor: DR Antonio Riggins . RADIOLOGY REPORT PROCEDURE: MM TOMOSYNTHESIS SCREENING BI COMPARISON: MG MAMM SCREEN SAWTI W CAD, 02/19/2017. MG MAMM SCREEN 3DBIL CAD, 02/22/2018. INDICATIONS: screening Calculator Name NCI Breast Cancer Risk Assessment Tool 5 Year Breast Cancer Risk Not Reported. Lifetime Breast Cancer Risk Not Reported. Personal Breast Cancer No Personal Ovarian Cancer No Treatments None Family Cancers None LOCATION: [facility] BREAST COMPOSITION: Scattered areas fibroglandular [...] M.D. Signed By:06/24/23 1539 DD/ 1538 TD/TT: Fisher Spear: us Antonio Riggins MD [facility] Final Result * COLONOSCOPY DIAGNOSTIC (05/31/2023 12:07 PM EST) Anatomical Region Laterality Modality Radiographic Sari ging Antonio Riggins MD IMG XR PROCEDURES Final Result from Last 3 Months or Most Recently Relevant to Health Maintenance Insurance [employer] MEDICARE ADVANTAGE Care Teams Angledozer Operator Relationship Specialty Start Date End Date Antonio Riggins MD PCP - General Family Medicine 10/21/22 Antonio Riggins MD [address] [facility] [place] [address] PCP - Jaycee DAVIS 11/25/23
--- OUTSIDE RECORDS SUMMARY | 2025-01-27 23:59 | XMS_ITS | Encounter Summary ---
Author Organization [facility] Address [address] [facility] [place] [address] Care Team Providers Care Residential Leasing Agent Name Role Phone Antonio Riggins MD Primary Care Provider [phone] Antonio Riggins MD Unavailable Delmar Bowen MA Unavailable [phone] Encounter Details Date Type Department Care Team (Late st Contact Info) Description 06/05/2024 Orders Only [facility] [place] [facility] [address] [place] [address] Barbie Dhaliwal NP [address] [facility] [place] [address] Social History Tobacco Use Types Packs/Day Years [...] often do you attend chur ch or latter day services? Never 09/26/2023 Do you belong to [...] Recorded Patient Health Questionnaire-2 Score 0 03/28/2024 [facility] - Occupational [...] place to sleep or slept in a fpc (including now)? No 09/26/2023 Comments Unknown Sex and Gender Information Value Date Recorded Sex Assigned at Not on file Legal Sex Female 4:12 PM EDT Gender Identity Not on file Sexual Orientation Not on file documented as of this encounter Plan of Treatment Upcoming Encounters Date Type Department Care Team (Late st Contact Info) Description 03/20/2025 9:10 AM EST Office Visit [facility] [place] [facility] [address] [facility] [address] [place] [address] Analisa Mireles MD [address] [facility] [address] [place] [address] documented as of this encounter Visit Diagnoses Not on filedocumented in this encounter Additional Health Concerns Assessment Noted Time PHQ-9 Depression Total Score: 0 03/28/20 11:00 AM EST documented as of this encounter Care Teams Residential Leasing Agent Relationship Specialty Start Date End Date Antonio Riggins MD PCP - General Family Medicine 10/21/22 Antonio Riggins MD [address] [place] [address] PCP - Jaycee DAVIS 11/25/23 Delmar Bowen MA [address] [place] [address] Family Medicine 04/18/24 12/19/24 documented as of this encounter
--- OUTSIDE RECORDS SUMMARY | 2025-01-27 23:59 | XMS_ITS | Encounter Summary ---
Author Organization [facility] Address [address] [place] [address] Care Team Providers Care Tumor Registrar Name Role Phone Antonio Riggins MD Primary Care Provider [phone] Antonio Riggins MD Unavailable Delmar Bowen MA Unavailable [phone] Encounter Details Date Type Department Care Team (Late st Contact Info) Description 10/09/2024 Orders Only [facility] [address] [place] [address] Darinel Joya MD [address] [place] [address] Social History Tobacco Use Types [...] any clubs o r organizations such as tenriism groups, unions, fraternal or athletic groups, or [...] 03/28/2024 [facility] - Occupational Stress Questionnaire Answer Date Recorded [...] place to sleep or slept in a fdc (including now)? No 09/26/2023 Comments Unknown Sex and Gender Information Value Date Recorded Sex Assigned at Not on file Legal Sex Female 4:12 PM EDT Gender Identity Not on file Sexual Orientation Not on file documented as of this encounter Plan of Treatment Upcoming Encounters Date Type Department Care Team (Late st Contact Info) Description 03/20/2025 9:10 AM EST Office Visit [facility] [address] [facility] [address] [place] [address] Analisa Mireles MD [address] [facility] [address] [place], [place] [id number] documented as of this encounter Procedures Procedure [...] documented as of this encounter Care Teams Tumor Registrar Relationship Specialty Start Date End Date Antonio Riggins MD PCP - General Family Medicine 10/21/22 Antonio Riggins MD [address] [place] [address] PCP - Jaycee DAVIS 11/25/23 Delmar Bowen MA [address] [place] [address] Family Medicine 04/18/24 12/19/24 documented as of this encounter
--- OUTSIDE RECORDS SUMMARY | 2025-01-27 23:59 | XMS_ITS | Encounter Summary ---
Author Organization [facility] Address [address] [place] [address] Care Team Providers Care Energy Conservation Technician Name Role Phone Antonio Riggins MD Primary Care Provider [phone] Antonio Riggins MD Unavailable Delmar Bowen MA Unavailable [phone] Encounter Details Date Type Department Care Team (Late st Contact Info) Description 06/29/2024 Orders Only [facility] [facility] [address] [place] [address] Barbie Dhaliwal NP [address] [place] [address] Social History Tobacco Use Types Packs/Day Years [...] often do you attend chur ch or catholic services? Never 09/26/2023 Do you belong to any clubs o r organizations such as rastafarian groups, unions, fraternal or athletic groups, or [...] Recorded Patient Health Questionnaire-2 Score 0 03/28/2024 [facility] - Occupational Stress [...] EST Office Visit [facility] [address] [facility] [address] [place] [address] Analisa Mireles MD [address] [facility] [address] [place] [address] documented as of this encounter Procedures Procedure Name Priority Date/Time Associated Diagnosis Comments DEXA BONE DENSITY Routine 06/29/2024 3:52 PM EST documented in this encounter Results * DEXA bone density (06/29/2024 3:52 PM EST) Anatomical Region Laterality Modality Body Radiographic Sari ging us Barbie Dhaliwal REFINISHER IMG DXA PROCEDURES Final Result documented in this encounter Visit Diagnoses Not on filedocumented in this encounter Additional Health Concerns Assessment Noted Time PHQ-9 Depression Total Score: 0 03/28/20 24 11:00 AM EST documented as of this encounter Care Teams Energy Conservation Technician Relationship Specialty Start Date End Date Antonio Riggins MD PCP - General Family Medicine 10/21/22 Antonio Riggins MD [address] [place] [address] PCP - Jaycee DAVIS 11/25/23 Delmar Bowen MA [address] [place] [address] Family Medicine 04/18/24 12/19/24 documented as of this encounter
--- OUTSIDE RECORDS SUMMARY | 2025-01-27 23:59 | XMS_ITS | Encounter Summary ---
Author Organization [facility] Address [address] [place] [address] Care Team Providers Care Sand System Operator Name Role Phone Antonio Riggins MD Primary Care Provider Antonio Riggins MD Unavailable Sonam Gloria LPN Unavailable Delmar Bowen MA Unavailable [phone] Encounter Details Date Type Department Care Team (Late Contact Info) Description 06/24/2023 Clinisync Result Encounter [facility] External Department Unsolicited Antonio Riggins MD [address] [place] [address] Social History Tobacco Use Types Packs/Day Years [...] Upcoming Encounters Date Type Department Care Team ([facility] Contact Info) Description 03/20/2025 9:10 AM EST Office Visit [facility] [address] [facility] [address] [place] [address] Analisa Mireles MD [address] [facility] [address] [place], [place] [address] documented as of this encounter Procedures Procedure Name Priority Date/Time Associated Diagnosis Comments MM TOMOSYNTHESIS SCREENING BI 06/24/2023 3:38 PM EST documented in this encounter Results * MM TOMOSYNTHESIS SCREENING BI (06/24/2023 3:38 PM EST) Anatomical Region Laterality Modality Other 06/24/2023 3:38 PM EST Narrative 06/24/2023 3:39 [place] [address] Mammography Report Signed Patient: ERICA CHACON MR#: [id number] : 1955 Acct:[id number] Age/Sex: 67 / F ADM Date: 06/15/23 Loc: MAMMO Attending Dr: Antonio Riggins M.D. Ordering Physician: Antonio Riggins M.D. Results: Date of Service: 06/15/23 Follow Up: Procedure(s): MM tomosynthesis screening BI Accession Number(s): [id number] cc: Antonio Riggins M.D. Patient Name: ERICA CHACON MR#: [id number] : 1955 Exam Date: 06/15/2023 Ordering Doctor: [...] Treatments None Family Cancers None LOCATION: [facility] BREAST COMPOSITION: Scattered areas fibroglandular density. FINDINGS: [...] LUMP SHOULD BE BIOPSIED. Dictated by: Elias Arlelano MD on 06/24/2023 at 15:37 Approved by: Elias Arellano MD on 06/24/2023 at 15:38 Dictated By: Elias Arellano M.D. Signed By: 06/24/23 1539 DD/ 1538 TD/TT: Social And Human Services Assistant: Procedure Note Radiology, Radiologist, - 06/24/2023 [place] [address] Mammography Report Signed Patient: ERICA CHACON AMR#: [id number] : 5Acct:[id number] Age/Sex: 67 / FADM Date: 06/15/23 Loc: MAMMO Attending Dr: Antonio Riggins M.D. Ordering Physician: Antonio Riggins M.D.Results: Date of Service: 06/15/23Follow Up: Procedure(s): MM tomosynthesis screening BI Accession Number(s): [id number] cc: Antonio Riggins M.D. Patient Name: ERICA CHACON MR#: [id number] : 1955 Exam Date: 06/15/2023 Ordering Doctor: [...] Treatments None Family Cancers None LOCATION: [facility] BREAST COMPOSITION: Scattered areas fibroglandular density. FINDINGS: [...] M.D. Signed By:06/24/23 1539 DD/ 1538 TD/TT: Social And Human Services Assistant: Antonio Riggins MD [facility] Final Result documented in this encounter Visit Diagnoses Not on filedocumented in this encounter Care Teams Sand System Operator Relationship Specialty Start Date End Date Antonio Riggins MD PCP - General Family Medicine 10/21/22 Antonio Riggins MD [address] [place] [address] PCP - Jaycee DAVIS 11/25/23 Sonam Gloria LPN [address] [place] [address] Licensed Practical Nurse Family Medicine 04/17/2403/27 Delmar Bowen MA [address] [place] [address] Family Medicine 04/18/24 12/19/24 documented as of this encounter
--- OUTSIDE RECORDS SUMMARY | 2025-01-27 23:59 | XMS_ITS | Patient Health Record ---
Author Organization [facility] [place] Address [address] [place] [address] Care Team Providers Care Field Marketing Coordinator Name Role Phone Antonio Riggins MD Primary Care Provider Unavailab Alis Russell Unavailable [phone] Allergies No Known Allergies Results Component Value Reference Range Notes CT lung screening low-dose Reviewed date:07/11/2024 06:52:19 AM Interpretation: Performing Lab: Notes/Report: Source Facility: [place] [address] CT Scan Report Signed Patient: ERICA CHACON MR#: [id number] : 1955 Acct:[id number] Age/Sex: 68 / F ADM Date: 07/10/24 Loc: CT Attending Dr: Alis Head D.O. Ordering Physician: Alis Head D.O. Date of Service: 07/10/24 Procedure(s): CT lung screening low-dose Accession Number(s): [id number] cc: Antonio Riggins M.D. [place] [id number] Patient Name: ERICA CHACON MRN: [id number] date: 1955 Sex: F Assigned Patient Location: CT Current Patient Location: CT Accession/Order Number: [id number] Exam Date: 07/10/2024 13:47 Report Date: 07/10/2024 [...] Painting Jr., D.O.07/10/2024 1:51 PM Dictation Location: [place] [address] Electronically authenticated by: [id number] Y Date: 07/10/2024 13:51 Dictated By: Bob Painting M.D. Signed By: 07/10/24 1354 DD/ 1351 TD/TT: Branding Machine Operator: RT pulmonary function test Reviewed date:02/01/2024 06:55:38 AM Interpretation: Performing Lab: Notes/Report: Source Facility: [facility] [place] [address] Respiratory Report Signed Patient: ERICA CHACON MR#: [id number] : 1955 Acct:[id number] Age/Sex: 68 / F ADM Date: 01/31/24 Loc: CARD Attending Dr: Alis Head D.O. Ordering Physician: Alis Head D.O. 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 Findings were considered accurate and reproducible. Both pre- and post-bronchodilator values utilized for spirometry. Spirometry (based on pre-bronchodilator values): -FEV1/FVC: Decreased @ 57% -FEV1: Moderately-severe reduction @ 50% -FVC: Reduced @ 67% -KEK58-35%: Reduced @ 25% -There is no significant [...] Signed By: 02/01/2446 02/01/24645 DD/ 0900 TD/TT: Branding Machine Operator: HEMOGLOBIN Reviewed date:02/01/2024 06:54:00 AM Interpretation: Performing Lab: Notes/Report: The [facility] , Hemoglobin 14.6 12.0-16.0 g/dL Performing Lab: see note ML - The [facility] LB PET skull to mid thigh Reviewed date:09/05/2024 01:47:34 PM Interpretation: Performing Lab: Notes/Report: Source Facility: [facility]-[address] [place] [address] [place] [address] PET Report Signed Patient: ERICA CHACON MR#: [id number] : 1955 Acct:[id number] Age/Sex: 69 / F ADM Date: 09/04/24 Loc: PETCT Attending Dr: Alis Head D.O. Ordering Physician: Alis Head D.O. Date of Service: 09/04/24 Procedure(s): PET skull to mid thigh Accession Number(s): [id number] cc: Antonio Riggins M.D.; Alis Head D.O. [place] [address] Patient Name: ERICA CHACON MRN: [id number] date: 1955 Sex: F Assigned Patient Location: PETCT Current Patient Location: Accession/Order Number: [id number] Exam Date: 09/05/2024 08:48 Report Date: 09/05/2024 [...] Ordaz M.D. 09/05/2024 9:12 AM Dictation Location: [place] [address] Electronically authenticated by: [id number] Y Date: 09/05/2024 09:12 Dictated By: Mary Ordaz M.D. Signed By: 09/05/2414 DD/ 1 TD/TT: Branding Machine Operator: CT Chest Low Dose for Screen ing* Reviewed date:07/11/2024 09:18:32 AM Interpretation: Performing Lab: Notes/Report: PET/CT Skull Base to Mid-Thi gh Reviewed date:09/05/2024 09:58:32 AM Interpretation: Performing Lab: Notes/Report: CT Chest w/o contrast Reviewed date:08/14/2024 07:46:29 AM Interpretation: Performing Lab: Notes/Report: CT chest wo con Reviewed date:08/14/2024 07:29:18 AM Interpretation: Performing Lab: Notes/Report: Source Facility: [place] [address] [address] [address] Scan Report Signed Patient: ERICA CHACON MR#: [id number] : 1955 Acct:[id number] Age/Sex: 69 / F ADM Date: 08/11/24 Loc: CT Attending Dr: lAis Head D.O. Ordering Physician: Alis Head D.O. Date of Service: 08/11/24 Procedure(s): CT chest wo con Accession Number(s): [id number] cc: Antonio Riggins M.D. [place] [address] Patient Name: ERICA CHACON MRN: [id number] date: 1955 Sex: F Assigned Patient Location: CT Current Patient Location: CT Accession/Order Number: [id number] Exam Date: 08/11/2024 14:51 Report Date: 08/11/2024 [...] Jovanny Swanson M.D.08/11/2024 3:03 PM Dictation Location: [place] [address] Electronically authenticated by: [id number] Y Date: 08/11/2024 15:03 Dictated By: Jovanny Swanson D.O. Signed By: 08/11/24 1506 DD/ 1503 TD/TT: Branding Machine Operator: Reason For Referral [facility]: Wor sening dyspnea despite unchanged PFT over past 6 years; strong family history of cardiac disease; active smoker. Please evaluate for cardiac causes of dyspnea. Diagnosis 1 Shortness of breath (R06.02) Referral Organization [facility] [place] Referring Provider First Name Alis Referring Provider Last Name Radu Referring Provider Speciality Pulmonolog y Referred Provider Darinel Joya Referred Provider Specialty Cardiology General Notes Tyler Ritchie 08/23 02:10:47 PM >Referral was given to Gwen Del Angel at [facility]. Gwen will contact the patient to schedule an appt.Chau Riley 09/04/2024 09:46:26 AM >Per Agata at [facility]-Patient is scheduled for an appt. on 09/06/2024 at 1430. Patient is aware of the appt. date and time via telephone.Chau Riley 09/06/2024 04:41:26 PM >Consult note received from [facility]. Scanned to . Referral Priority Routine Referral Appointment Date 09/06/2024 Reason Abnormal PET imaging of palatine tonsil - please assess Diagnosis 1 Abnormal findings on diagnostic imaging of skull and head, not elsewhere classified (R93.0) Referral Organization [facility] Referring Provider First Name Alis Referring Provider [...] Duration) Notes Start Date End Date Status Muriel Ellipta 100-62.5-25 MCG/ACT 1 puff Inhalation Once a day; Duration: 90 days Rinse after use; Dispense #3 inhalers Active Fluticasone Propionate 50 MCG/ACT 1 spray in each nostril Nasally Once a day Active Calcium 500 MG 1 tablet with meals Orally Twice a day Active Handicapped Tag - 1 year Dx J96.11 (Chr onic hypoxic respiratory failure). Duration: 1 year 11/04/2022 Active Synthroid 112 MCG 1 tablet in the morning on an empty stomach Orally Once a day Active Aspirin 81 81 MG 1 tablet Orally Once a day Active amLODIPine Besylate 5 MG Oral; Duration: 30 Days Active Albuterol Sulfate HFA 108 (90 Base) MCG/ACT 2 puffs as needed for SOB Inhalation every 4 hrs; Duration: 90 days Dispense #3 inhalers Active metFORMIN HCl 500 MG Oral; Duration: 8 Days Active Losartan Potassium 50 MG 1 tablet Orally Once a day Active Multi Complete - as directed Orally Active Sodium Chloride 0.9 % 3mL Inhalation TID; Duration: 90 days Dispense #270 ampules Active Immunizations Vaccine Route Administration Date Status Comme nts Arexvy Unknown 02/26/2023 Administered Flu, Fluad (43220) 65 yrs + High Dose Seasonal (0158-5601) Unknown 03/01/2024 Administered Flu, Fluzone High-Dose (2022 -2023) (11717) 65 yrs+ Unknown 03/08/2023 Administered Pneumococcal (Pneumovax [...] Problem Status W/U Status Risk Notes Problem Critical illness myopathy (845857254) 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) Active confirmed Problem Centrilobular emphysema (71815735) Centrilobular emphysema (J43.2) Active confirmed Problem Bronchiolectasis (92583593) Bronchiectasis, uncomplicated (J47.9) Active confirmed Problem Chronic respiratory failure (83130005) Chronic respiratory failure with hypoxia (J96.11) Active confirmed Problem Long-term current use of inhaled steroid (079375401) skilled nursing (current) use of inhaled steroids (Z79.51) Active confirmed Problem Chronic sinusitis (13656828) Chronic sinusitis (J32.9) Active confirmed Problem 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) Cigarette nicotine dependence with nicotine-induced disorder (F17.219) Active confirmed Problem Multiple pulmonary nodules (160099233) Multiple pulmonary nodules (R91.8) Active confirmed Problem Rhinitis sicca (36524095) Rhinitis sicca (J31.0) Active confirmed Problem Tonsillith (8280293) Tonsillith (J35.8) Active confirmed Vital Signs Heart Rate 73 /min 10/10/2024 Temperature 97.0 degrees Fahrenheit 10/10/2024 Respiratory Rate 18 /min 10/10/2024 Blood pressure diastolic 70 mm Hg 10/10/2024 Oximetry 94 % 10/10/2024 Height 64 in 10/10/2024 Blood pressure systolic 109 mm Hg 10/10/2024 Weight 171.2 lbs 10/10/2024 BMI 29.38 kg/m2 10/10/2024 Encounters Encounter Location Date Provider Diagnosis [address] [address] 02/23/2024 [facility] Bronchiectasis, uncomplicated J47.9 ; Cigarette nicotine dependence with nicotine-induced disorder F17.219 ; Multiple pulmonary nodules R91.8 ; Centrilobular emphysema J43.2 ; skilled nursing (current) use of inhaled steroids Z79.51 and Obesity, class [address] [address] 08/23/2024 [facility] Multiple pulmonary nodules R91.8 ; Centrilobular emphysema J43.2 ; Bronchiectasis, uncomplicated J47.9 ; Cigarette nicotine dependence with nicotine-induced disorder F17.219 ; Shortness of breath R06.02 ; skilled nursing (current) use of inhaled steroids Z79.51 and Obesity, class 1 E66.811 [facility] [address] [place] [address] 10/10/2024 [facility] Multiple pulmonary nodules R91.8 ; Centrilobular emphysema J43.2 ; Bronchiectasis, uncomplicated J47.9 ; Cigarette nicotine dependence with nicotine-induced disorder F17.219 ; Tonsillith J35.8 and skilled nursing (current) use of inhaled steroids Z79.[address] [address] 02/03/2024 [facility] Centrilobular emphys gina J43.2 [facility] [address] [place] [address] 07/11/2024 [facility] Multiple pulmonary nodules R91.8 [facility] [address] [place] [address] 09/05/2024 Alis Head Abnormal findings on diagnostic imaging of skull and head, not elsewhere classified R93.0 Assessments Encounter Date Diagnosis (ICD Code) Assessment Notes Treatment Notes Treatment Clinical Notes Section Notes 02/23/2024 Bronchiectasis, uncomplicated (ICD-10 - J47.9) Wvui-bk-tijj encounter performed with the patient to document continued need for a nebulizer with nebulized medications.-[place]ok[place] christopher nebulized medications: Sodium chloride 0.9%-Symptom control: No [...] before activities to see if that helps. 10/10/2024 Multiple pulmonary nodules (ICD-10 - R91.8) History of pulmonary nodules, largest 6mm in LLL CTA 07/22/2023, unchanged compared to 09/29/2022. LDCT 07/10/2024 noted no change in size or orientation of these nodules, but there was a new 2.3cm RLL consolidation along with other RLL tree-in-bud findings. F/U CT chest 08/11/2024 shows no change - neither improved or worsening on lung windows. PET 09/04/2024 showed improvement in his consolidation without any FDG uptake. This would be consistent with a resolving infectious or inflammatory process. The patient denies any decreased appetite or unexplained weight loss, excessive night sweats, fevers, or hemoptysis. Plan will be to have a [address] chest F/U to be done mid-August 2025 (will order @ new office). 10/10/2024 Centrilobular emphysema (ICD-10 - J43.2) Prior treatment: Trelegy 100 >>>>> Breo 100; Ohtuvayre (too expensive) Breathing about the same, continues to have SALAZAR. Trelegy helps, but not enough. Ohtuvayre too expensive. Not many options left from a pulmonary standpoint that are affordable. She was [facility] for a 2nd opinion regarding dyspnea; she has a F/U appointment after this appointment today with them to review an echocardiogram and Lexiscan Cardiolite stress test. 02/03/2024 Centrilobular emphysema (ICD-10 - J43.2) 07/11/2024 Multiple pulmonary nodules (ICD-10 - R91.8) 09/05/2024 Abnormal findings on diagnostic imaging of skull and head, not elsewhere classified (ICD-10 - R93.0) 10/10/2024 Bronchiectasis, uncomplicated (ICD-10 - J47.9) Jsqp-bj-yxhn encounter performed with the patient to document continued need for a nebulizer with nebulized medications.-Curren t nebulized medications: Sodium chloride 0.9% TID-Symptom control: Saline and PEP are helping to control her secretions-Reported side or adverse effects: Denies-Recommendati ons: Maintain pulmonary toilet with saline nebs. Renew, reorder, refill nebulizer and supplies. 08/23/2024 Bronchiectasis, uncomplicated (ICD-10 - J47.9) Nmsf-jd-zqry encounter performed with the patient to document continued need for a nebulizer with nebulized medications.-Curren t nebulized medications: Sodium chloride 0.9%-Symptom control: Saline [...] smoking cessation classes. LDCT is due 06/2024. 02/23/2024 Multiple pulmonary nodules [...] that she will work on smoking cessation. 10/10/2024 Cigarette nicotine dependence with nicotine-induced disorder (ICD-10 - F17.219) Discussed smoking cessation yet again. Continues to smoke <1/2ppd. Not ready to quit, though she voiced she knows she should. Worsening dyspnea likely directly correlated with continued tobacco abuse. LDCT on hold d/t monitoring abnormal CT findings. 10/10/2024 Tonsillith (ICD-10 - J35.8) Presumptive cause of left tonsillar FDG uptake. Saw Dr. Mireles 09/19/2024. Continue peroxide rinses and F/U with Dr. Mireles. 08/23/2024 Shortness of breath (ICD-10 - R06.02) As above, patient is developing more SALAZAR - stamina has decreased (from 1 block to 1/2 block until she needs to stop). Last cardiac evaluation was ~15 years ago at [facility] - she cannot remember exactly what she [...] wane with continued smoking. Follow-up 6 months. 02/23/2024 skilled nursing (current) use of inhaled steroids (ICD-10 - Z79.51) Patient was counseled to rinse & gargle with water after inhaled corticosteroid use. 08/23/2024 skilled nursing (current) use of inhaled steroids (ICD-10 - Z79.51) Patient was counseled to rinse & gargle with water after inhaled corticosteroid use. 10/10/2024 skilled nursing (current) use of inhaled steroids (ICD-10 - [...] Weight loss indicated: Decrease calories, increase activity. 10/10/2024 Other Plan Of Treatment No Information Insurance Providers Payer Name Payer Address Payer Phone Subscriber Number Group Number Insured Name Patient Relationship to Insured Coverage Start Date Coverage End Date [employer] ADV PLAN [address] [place] [phone] [id number] [facility] [place] [facility] Self - patient is the insured 4 Medical (General) History Medical History History ICD Code Centrilobular emphysema J43.2 Bronchiectasis, uncomplicated J47.9 Chronic sinusitis J32.9 Hypothyroidism E03.9 Multiple pulmonary nodules R91.8 Benign hypertension I10 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
--- OUTSIDE RECORDS SUMMARY | 2025-01-27 23:59 | XMS_ITS | Encounter Summary ---
Author Organization [facility] Address [address] [place] [place] [address] Care Team Providers Care Summer Sessions Director Name Role Phone Antonio Riggins MD Primary Care Provider Antonio Riggins MD Unavailable Sonam Gloria TRANSPORTATION PLANNER Unavailable Delmar Bowen MA Unavailable [phone] Encounter Details Date Type Department Care Team (Late Contact Info) Description 06/15/2023 Orders Only [facility] [address] [place] [address] Antonio Riggins MD [address] [place] [address] Social History Tobacco Use Types Packs/Day Years [...] Department Care Team (Late Contact Info) Description 03/20/2025 9:10 AM EST Office Visit [facility] [address] [facility] [address] [place] [address] Analisa Mireles MD [address] [facility] [address] [place], [place] [address] documented as of this encounter Visit Diagnoses Not on filedocumented in this encounter Care Teams Summer Sessions Director Relationship Specialty Start Date End Date Antonio Riggins MD PCP - General Family Medicine 10/21/22 Antonio Riggins MD [address] [facility] [place] [address] PCP - Jaycee DAVIS 11/25/23 Sonam Gloria LPN [address] [place] [address] Licensed Practical Nurse Family Medicine 04/17/2403/27 Delmar Bowen MA [address] [place] [address] Family Medicine 04/18/24 12/19/24 documented as of this encounter
--- OUTSIDE RECORDS SUMMARY | 2025-01-27 23:59 | XMS_ITS | Clinical Summary ---
Author Organization [facility] Address [address], [address] [place] [address] Care Team Providers Care Supply Tech Name Role Phone Unavailable Primary Care Provider [...] Date Smoking Tobacco: Every Day Cigarettes 1 53.5 Started: 08/02/1971 Smokeless Tobacco: Never Tobacco Cessation:Ready to Q uit: No; Counseling Given: Yes Comments:Less than a pack a day Alcohol Use Standard Drinks/Week Comments Yes 0 (1 standard drink = 0.6 oz pur e alcohol) Occasionally Social Connection and Isolation Panel Answer Date Recorded Frequency of Communication with Friends and Fami ly Three times a week 12/29/2018 Frequency of Social Gatherin gs with Friends and Family Once a week 12/29/2018 Attends [employer] Never 12/29 Active Member of Clubs [...] Answer Date Recorded PHQ-2 Score 0 07/27/2018 [facility] [...]
--- OUTSIDE RECORDS SUMMARY | 2025-01-27 23:59 | XMS_ITS | CCD ---
Author Organization [facility] CliniSymn Care Team Providers Care Axle Polisher Name Role Phone Niraula, Lupillo Unavailable Unavailable PROVIDER, UNKNOWN Unavailable Unavailable JEF, OTTONIEL B Unavailable Unavailable Jef, Ottoniel Unavailable Unavailable PROVIDER, UNKNOWN Unavailable Unavailable Jef, Ottoniel Unavailable Unavailable DOZIER, DEEPIKAH Unavailable Unavailable PROVIDER, UNKNOWN Unavailable Unavailable Bethel, Ottoniel Unavailable Unavailable FIGUEROA, MASROOR Unavailable Unavailable PROVIDER, UNKNOWN Unavailable Unavailable Bethel, Ottoniel Unavailable Unavailable FIGUEROA, MASROOR Unavailable Unavailable PROVIDER, UNKNOWN Unavailable Unavailable Jef, Ottoniel Unavailable Unavailable Bethel, Ottoniel Unavailable Unavailable PROVIDER, UNKNOWN Unavailable Unavailable Jef, Ottoniel Unavailable Unavailable FIGUEROA, MASROOR Unavailable Unavailable PROVIDER, UNKNOWN Unavailable Unavailable Bethel, Ottoniel Unavailable Unavailable NIRAULA, LUPILLO Unavailable Unavailable Jef, Ottoniel Unavailable Unavailable Tsivitse Eddi Unavailable Unavailable PROVIDER, UNKNOWN Unavailable Unavailable Jef, Ottoniel Unavailable Unavailable Bethel, Ottoniel Primary Care Provider [phone] DR HANDY KEATING Consulting Unavailable JAYDONERECarlos, DR [...] Unavailable Ottoniel Fuchs MD Primary Care Provider [phone] ANTONIO HOPKINS Primary Care Physician [phone] MD Kale Marinelli Attending Provider Kale Marinelli Attending Unavailable Kale Marinelli Admitting Unavailable ISIS, Kale Gonzalez Attending Unavailable ANTONIO HOPKINS Referring Unavailable Kale MARINELLI Attending Unavailable Kale MARINELLI Attending Unavailable Antonio Hopkins MD Primary Care Provider [phone] Antonio Hopkins MD Unavailable Delmar Bowen MA [...] Medication Allergies] Propensity to adverse reactions (disorder) [facility] Repository Medications Current Medications Medication Drug Class(es) Dates Sig (Normalized) Sig (Original) [id number] 200 actuat albuterol 0.09 mg/actuat metered dose [...] sources) Corticosteroid Start: 04-09-2023 Flonase 0.05 mg/inh Bristol 100 mcg, Nasal, Daily, Refill(s) 0 Start [...] disease (2 sources) 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; Translations: [Athscl heart disease of sitka coronary artery w/o ang pctrs] Onset: 03-08-2018 [...] senior living (current) use of aspirin; Translations: [IMPLEMENTATION ADVISOR CURRENT USE OF ASPIRIN] Onset: 09-22-2022 Episodic Other aftercare (5 sources) Other long-term (current) drug therapy; Translations: [OTH SNF CURRENT DRUG THERAPY] Onset: 10-30-2021 Episodic Other [...] current use of drug therapy; Translations: [Other long-term (current) drug therapy] Onset: 04-01-2023 04-01-2023 Episodic Other aftercare (12 sources) Long-term current use of inhaled steroid; Translations: [senior living (current) use of inhaled steroids] Onset: 09-13-2024 [...] HEMOGLOBIN A1Con 025 Glucose [Mass/Vol] 146 mg/dL [facility] HbA1c (Bld) [Mass fraction] 6.7 % High 4.5 - 6.2 % [facility] Comment on above: ADA RECOMMENDED LIMI T 4.0 - 6.0 ADA THERAPEUTIC TARGET < 7.0 ACTION SUGGESTED > 7.0 Interpretation and review of laboratory results Abnormal [facility] Healthcare Office Visiton 10-10-2024 Follow-up visit [id number] Akil Torres 1955 F Date Provider Department Center 10/10/2024 271-JAIME GONZALEZ BH CARD [facility] Family History Problem Relation Age of Onset Coronary artery disease Mother Heart failure Father Atrial fibrillation Brother Family Status - Relation Status Age at Mother Father Sister Alive Brother Alive Level of Service:69785 [place] OFFICE/OUTPATIENT ESTABLISHED MOD MDM 30 MIN Normal [facility] CA ECHO DOPPLER COMPLETEon 0 10-06-2024 [facility] [address] [place] [address] Cardiology Report Signed Patient: AKIL TORRES MR#: [id number] : 1955 Acct:[id number] Age/Sex: 69 / F ADM Date: 10/06/24 Loc: [place] Attending Dr: Jaime Gonzalez M.D. Ordering Physician: Jaime Gonzalez M.D. Date of Service: 10/06/24 Procedure(s): CA echo doppler complete Accession Number(s): [id number] cc: Jaime Gonzalez M.D.; Antonio Hopkins M.D. Patient Name: AKIL TORRES MR#: [id number] : 1955 Exam Date: 10/06/2024 Ordering Doctor: [...] By: Dhruv Gonzalez (more content not included)... [facility] Radiology, Radiologist, MD - 10/06/2024 [place] [address] Cardiology Report Signed Patient: AKIL TORRES MR#: [id number] : 1955 Acct:[id number] Age/Sex: 69 / F ADM Date: 10/06/24 Loc: [place] Attending Dr: Jaime Gonzalez M.D. Ordering Physician: Jaime Gonzalez M.D. Date of Service: 10/06/24 Procedure(s): CA echo doppler complete Accession Number(s): [id number] cc: Jaime Gonzalez M.D.; Antonio Hopkins M.D. Patient Name: AKIL TORRES MR#: [id number] : 1955 Exam Date: 10/06/2024 Ordering Doctor: [...] Signed By: 10/06/24 1448 DD/ 1446 TD/TT: Card Maker: [facility] Radiology Study observation (narrative) [facility] CA ECHO DOPPLER COMPLETEOrde red By: Radiologist Radiology on 10-06-2024 [facility] Work Phone: NM MACKENZIE PERF SPECT REST STRon 10-06-2024 [place] [address] Nuclear Medicine Report Signed Patient: AKIL TORRES MR#: [id number] : 1955 Acct:[id number] Age/Sex: 69 / F ADM Date: 10/06/24 Loc: [place] Attending Dr: Jaime Gonzalez M.D. Ordering Physician: Jaime Gonzalez M.D. Date of Service: 10/06/24 Procedure(s): NM mackenzie perf SPECT rest str Accession Number(s): [id number] cc: Jaime Gonazlez M.D.; Antonio Hopkins M.D. Patient Name: AKIL TORRES MR#: [id number] : 1955 Exam Date: 10/06/2024 Ordering Doctor: [...] the study was pending per attending physician [facility]. For more details, please see [...] Signed By: 10/06/24 1513 DD/ 1512 TD/TT: Card Maker: [facility] Radiology, Radiologist, MD - 10/06/2024 [place] [address] Nuclear Medicine Report Signed Patient: AKIL TORRES MR#: [id number] : 1955 Acct:[id number] Age/Sex: 69 / F ADM Date: 10/06/24 Loc: [place] Attending Dr: Jaime Gonzalez M.D. Ordering Physician: Jaime Gonzalez M.D. Date of Service: 10/06/24 Procedure(s): NM mackenzie perf SPECT rest str Accession Number(s): [id number] cc: Jaime Gonzalez M.D.; Antonio Hopkins M.D. Patient Name: AKIL TORRES MR#: [id number] : 1955 Exam Date: 10/06/2024 Ordering Doctor: [...] the study was pending per attending physician [facility]. For more details, please see [...] Signed By: 10/06/24 1513 DD/ 1512 TD/TT: Card Maker: [facility] Radiology Study observation (narrative) [facility] NM MACKENZIE PERF SPECT REST STROr dered By: Radiologist Radiology on 10-06-2024 [facility] Work Phone: Office Visiton 09-06-2024 Follow-up visit [id number] Akil Torres 1955 F Date Provider Department Center 09/06/2024 271-JAIME GONZALEZ CARD [facility] Family History Problem Relation Age of Onset Coronary artery disease Mother Heart failure Father Atrial fibrillation Brother Family Status - Relation Status Age at Mother Father Sister Alive Brother Alive Level of Service:94069 [place] OFFICE/OUTPATIENT NEW MODERATE MDM 45 MINUTES Normal [facility] PET+CT Bone from skull base to mid-thigh W 18F-NaF Emelina 09-05-2024 [place] [address] PET Report Signed Patient: AKIL TORRES MR#: [id number] : 1955 Acct:[id number] Age/Sex: 69 / F ADM Date: 09/04/24 Loc: PETCT Attending Dr: Alis Head D.O. Ordering Physician: Alis Head D.O. Date of Service: 09/04/24 Procedure(s): PET skull to mid thigh Accession Number(s): [id number] cc: Antonio Hopkins M.D.; Alis Head D.O. [address] [address] Patient Name: AKIL TORRES MRN: [id number] date: 1955 Sex: F Assigned Patient Location: PETCT Current Patient Location: Accession/Order Number: [id number] Exam Date: 09/05/2024 08:48 Report Date: 09/05/2024 [...] Ordaz M.D. 09/05/2024 9:12 AM Dictation Location: [place] [address] Electronically authenticated by: [id number] Date: 09/05/2024 09:12 Dictated By: Mary Ordaz M.D. Signed By: 09/05/2414 DD/ 1 TD/TT: Card Maker: [facility] Radiology, Radiologist, - 09/05/2024 [place] [address] PET Report Signed Patient: AKIL TORRES MR#: [id number] : 1955 Acct:[id number] Age/Sex: 69 / F ADM Date: 09/04/24 Loc: PETCT Attending Dr: Alis Head D.O. Ordering Physician: Alis Head D.O. Date of Service: 09/04/24 Procedure(s): PET skull to mid thigh Accession Number(s): [id number] cc: Antonio Hopkins M.D.; Alis Head D.O. The [address] [address] Patient Name: AKIL TORRES MRN: [facility]:[id number] date: 1955 Sex: F Assigned Patient Location: PETCT Current Patient Location: Accession/Order Number: [id number] Exam Date: 09/05/2024 08:48 Report Date: 09/05/2024 [...] Ordaz M.D. 09/05/2024 9:12 AM Dictation Location: [place] [address] Electronically authenticated by: [id number] Y Date: 09/05/2024 09:12 Dictated By: Mary Ordaz M.D. Signed By: 09/05/24913 DD/ 1 TD/TT: Card Maker: [facility] Radiology Study observation (narrative) [facility] PET+CT Bone from skull base to mid-thigh W 18F-NaF IVOrdered By: Radiologist Radiology on 09-05-2024 [facility] Work Phone: CT CHEST WO CONon 08-11-2024 [place] [address] CT Scan Report Signed Patient: AKIL TORRES MR#: [id number] : 1955 Acct:[id number] Age/Sex: 69 / F ADM Date: 08/11/24 Loc: CT Attending Dr: Alis Head D.O. Ordering Physician: Alis Head D.O. Date of Service: 08/11/24 Procedure(s): CT chest wo con Accession Number(s): [id number] cc: Antonio Hopkins M.D. [place] [id number] Patient Name: AKIL TORRES MRN: [id number] date: 1955 Sex: F Assigned Patient Location: CT Current Patient Location: CT Accession/Order Number: [id number] Exam Date: 08/11/2024 14:51 Report Date: 08/11/2024 [...] Jovanny Swanson M.D.08/11/2024 3:03 PM Dictation Location: [place] [address] Electronically authenticated by: [id number] Y Date: 08/11/2024 15:03 Dictated By: Jovanny Swanson D.O. Signed By: 08/11/24 1506 DD/ 1503 TD/TT: Card Maker: [facility] Radiology, Radiologist, MD - 08/11/[address] [address] [address] Scan Report Signed Patient: AKIL TORRES MR#: [id number] : 1955 Acct:[id number] Age/Sex: 69 / F ADM Date: 08/11/24 Loc: CT Attending Dr: Alis Head D.O. Ordering Physician: Alis Head D.O. Date of Service: 08/11/24 Procedure(s): CT chest wo con Accession Number(s): [id number] cc: Antonio Hopkins M.D. The [address] [address] Patient Name: AKIL TORRES MRN: [id number] date: 1955 Sex: F Assigned Patient Location: CT Current Patient Location: CT Accession/Order Number: [id number] Exam Date: 08/11/2024 14:51 Report Date: 08/11/2024 [...] Jovanny Swanson M.D.08/11/2024 3:03 PM Dictation Location: [place] [address] Electronically authenticated by: [id number] Y Date: 08/11/2024 15:03 Dictated By: Jovanny Swanson D.O. Signed By: 08/11/24 1506 DD/ 1503 TD/TT: Card Maker: [facility] Radiology Study observation (narrative) [facility] CT CHEST WO CONOrdered By: Carlos adiologist Radiology on 08-11-2024 [facility] Work Phone: ALL CBC WITH AUTO DIFFon BASOPHILS ABSOLUTE AUTO 0 [facility] Basophils/100 WBC (Bld) 0.4 % 0.2 - 2.0 % [facility] Eosinophils/100 WBC (Bld) 2.1 % 0.9 - 7.0 % [facility] Erythrocyte distribution width (RBC) [Ratio] 14 % 11.0 - 15.0 % [facility] Hematocrit (Bld) [Volume fraction] 45.2 % 36.0 - 48.0 % [facility] Hemoglobin (Bld) [Mass/Vol] 14.6 g/dL 12.0 - 16.0 g/dL [facility] IMMATURE GRANULOCYTES ABS AUTO 0.02 [facility] Immature granulocytes/100 WBC (Bld) 0.3 % 0.0 - 0.5 % [facility] Interpretation and review of laboratory results Abnormal [facility] LYMPHOCYTES ABSOLUTE AUTO 1.7 [facility] Lymphocytes/100 WBC (Bld) 22.9 % 20.5 - 60.0 % [facility] MCH (RBC) [Entitic mass] 30.7 pg 26.7 - 34.0 pg [facility] MCHC (RBC) [Mass/Vol] 32.3 g/dL 29.9 - 35.2 g/dL [facility] MCV (RBC) [Entitic vol] 95 fL 81.0 - 99.0 fL [facility] MONOCYTES ABSOLUTE AUTO 0.8 [facility] Monocytes/100 WBC (Bld) 10.4 % 1.7 - 12.0 % [facility] NEUTROPHILS ABSOLUTE AUTO 4.6 [facility] Neutrophils/100 WBC (Bld) 63.9 % 43.0 - 75.0 % [facility] Platelet mean volume (Bld) [Entitic vol] 9.1 fL Low 9.5 - 13.5 fL [facility] EO # 0.2 [facility] PLT 303 [facility] RBC 4.76 [facility] WBC 7.2 [facility] ALL HEMOGLOBINon 01-31-2024 Hemoglobin (Bld) [Mass/Vol] 14.6 g/dL 12.0 - 16.0 g/dL [facility] General Surgery Office/Clini c Noteon [...] 1 puff(s), Inhalation, Daily Flonase 0.05 mg/inh Bristol, 100 mcg, Nasal, Daily levothyroxine 112 mcg [...] 02/04/2021 Recorded 2023-04-09: TPV65 patient seen 06/04/2023 [facility] Comment on above: Result Comment: Elec tronically Signed By: ISIS ALCANTAR, Kale Gonzalez\.br\Date and Time Signed: 06/14/23 16:34 EST Ambulatory Visit Summaryon 0 06-04-2023 Ambulatory Visit Summary AKIL TORRES :1955 Visit Date:06/04/2023 Ambulatory Visit Instructions Your Care Team Attending Physician - ISIS ALCANTAR, Kale Gonzalez Primary Care Physician - ANTONIO HOPKINS MD This Is Your Medications List albuterol (Albuterol (Eqv-ProAir HFA)) amlodipine (amLODIPine 5 mg Tab) aspirin (aspirin 81 mg Oral EC Tab) fluticasone nasal (Flonase 0.05 mg/inh Bristol) fluticasone-vilantero l (Breo Ellipta 100 mcg-25 mcg [...] Unchanged fluticasone nasal (Flonase 0.05 mg/ inh Bristol) 100 Microgram Nasal Inhalation Every day Unchanged [...] for choosing us for your care. Normal [facility] Reminderson 06-04-2023 Reminders - From: Tamia Price LPN To: [facility] - Clinical; Sent: 06/04/2023 14:05:05 EST Show up: 04/11/2033 07:00:00 EST Subject: colonoscopy recall Due Date/Time: 05/12/2033 07:00:00 EST Reminder/Recall Patient due for screening colonoscopy 05/12/2033. Normal [facility] Outside Colonoscopyon 2023 Outside Colonoscopy [id number]#1 .00TIFF Normal [facility] Pathology Noteon 05-20-2023 Pathology Note [id number]#1. 00TIFF Normal [facility] Matthieu 05-12-2023 L Specimen: [id number] Received: 05/12/23 Status: BILLY [place] Num: [id number] Spec Type: Surgical Subm Dr: Kale Marinelli MD FACS Tissues: A Colon Biopsy (SIGMOID POLYP) Procedures: HE/2, Gross/Micro L4 Age/ Patient Sex Location Account Attending Physician Akil Torres 67/F LABELL [id number] Kale Marinelli MD FACS SPEC NUM: [id number] RECD: 05/12/23 STATUS: BILLY CONNOLLYLorna NUM: [id number] DONIS: 05/12/23 [facility] DR: Kale Marinelli MD FACS ENTERED: 05/12/[address] [facility] [address]: Viv,Tania SPEC TYPE: Surgical DEPT: PERFECTO [...] in one cassette labeled A1. CPT Codes 11385 -------- -------- Specimen: [id number] Received: 05/12/23 Status: BILLY [place] Num: [id number] Spec Type: Surgical Subm Dr: Kale Marinelli MD FACS Tissues: A Colon Biopsy (SIGMOID POLYP) Procedures: KEVIN/Josue, Fred/Olesya L4 -------- Patient: Akil Torres [id number] (Continued) -------- Signed (signature on file) Ai Marquez MD 05/14/[address] [facility] Insurance Correspondenceon 0 05-05-2023 Insurance Correspondence [id number]#1 .00TIFF [facility] Consent for Procedure/Surger yon 04-23-2023 Consent for Procedure/Surgery [id number]#1 .00TIFF [facility] Facesheeton 04-22-2023 Facesheet [id number]# 1.00TIFF [facility] Ambulatory Visit Summaryon 1 06-22-2022 Ambulatory Visit Summary AKIL TORRES :1955 Visit Date:04/21/2023 Ambulatory Visit Instructions Your [...] EC Tab) fluticasone nasal (Flonase 0.05 mg/inh Bristol) fluticasone-vilantero l (Breo Ellipta 100 mcg-25 mcg [...] Unchanged fluticasone nasal (Flonase 0.05 mg/ inh Bristol) 100 Microgram Nasal Inhalation Every day Contact [...] for choosing us for your care. Normal [facility] Transfer Inon 04-06-2023 Transfer In [id number]#1 .00TIFF Normal [facility] Physician Referralon 023 Physician Referral [id number]#1 .00TIFF [facility] CBC AUTO DIFFon 09-23-2022 BASO # 0.0 103/ul Normal 0.0-0.1 [facility] Comment on above: Performed By: #### C YTO #### [facility] [address] [place] [address] Dr. Jayy Marquez Basophils/100 WBC (Bld) 0.4 % Normal 0.2-2.0 [facility] Comment on above: Performed By: #### C YTO #### [facility] [address] [place] [address] [address] Jayy Marquez EO # 0.1 103/ul Normal 0.0-0.7 [facility] Comment on above: Performed By: #### C YTO #### [facility] [address] [place] [address] Dr. Jayy Marquez Eosinophils/100 WBC (Bld) 0.5 % Critically low 0.9-7.0 [facility] Comment on above: Performed By: #### C YTO #### [facility] [address] [place] [address] [address] Jayy Marquez Erythrocyte distribution width (RBC) [Ratio] 13.1 % Normal 11.0-15.0 [facility] Comment on above: Performed By: #### C YTO #### [facility] [address] [place] [address] [address] Jayy Marquez Hematocrit (Bld) [Volume fraction] 43.0 % Normal 36.0-48.0 [facility] Comment on above: Performed By: #### C YTO #### [facility] [address] [place] [address] Dr. Jayy Marquez Hemoglobin (Bld) [Mass/Vol] 13.9 g/dL Normal 12.0-16.0 [facility] Comment on above: Performed By: #### C YTO #### [facility] [address] [place] [address] Dr. Jayy Marquez IG # 0.04 10e3/ul Critically high 0.00-0.03 [facility] Comment on above: Performed By: #### C YTO #### [facility] [address] [place] [address] [address] Jayy Marquez IG % 0.4 % Normal 0.0-0.5 [facility] Comment on above: Performed By: #### C YTO #### [facility] [address] [place] [address] Dr. Jayy Marquez LYMPH # 0.7 103/ul Critically low 1.2-3.8 [facility] Comment on above: Performed By: #### C YTO #### [facility] [address] [place] [address] Dr. Jayy Marquez Lymphocytes/100 WBC (Bld) 6.7 % Critically low 20.5-60.0 [facility] Comment on above: Performed By: #### C YTO #### [facility] [address] [place] [address] [address] Jayy Marquez MANUAL DIFF REQ NO Normal [facility] Comment on above: Performed By: #### C YTO #### [facility] [address] [place] [address] [address] Jayy Marquez MCH (RBC) [Entitic mass] 31.2 pg Normal 26.7-34.0 [facility] Comment on above: Performed By: #### C YTO #### [facility] [address] [place] [address] Dr. Jayy Marquez MCHC (RBC) [Mass/Vol] 32.3 g/dL Normal 29.9-35.2 [facility] Comment on above: Performed By: #### C YTO #### [facility] [address] [place] [address] Dr. Jayy Marquez MCV (RBC) [Entitic vol] 96.4 fL Normal 81.0-99.0 [facility] Comment on above: Performed By: #### C YTO #### [facility] [address] [place] [address] Dr. Jayy Marquez MONO # 0.9 103/ul Critically high 0.3-0.8 [facility] Comment on above: Performed By: #### C YTO #### [facility] [address] [place] [address] Dr. Jayy Marquez Monocytes/100 WBC (Bld) 8.2 % Normal 1.7-12.0 [facility] Comment on above: Performed By: #### C YTO #### [facility] [address] [place] [address] Dr. Jayy Marquez NEUT # 9.0 103/ul Critically high 1.4-6.5 [facility] Comment on above: Performed By: #### C YTO #### [facility] [address] [place] [address] Dr. Jayy Marquez Neutrophils/100 WBC (Bld) 83.8 % Critically high 43.0-75.0 [facility] Comment on above: Performed By: #### C YTO #### [facility] [address] [place] [address] Dr. Jayy Marquez Platelet mean volume (Bld) [Entitic vol] 10.4 fL Normal 9.5-13.5 [facility] Comment on above: Performed By: #### C YTO #### [facility] [address] [place] [address] [address] Jayy Marquez PLT 232 103/ul Normal 150-450 [facility] Comment on above: Performed By: #### C YTO #### [facility] [address] [place] [address] [address] Jayy Marquez RBC 4.46 106/ul Normal 4.20-5.40 [facility] Comment on above: Performed By: #### C YTO #### [facility] [address] [place] [address] [address] Jayy Marquez WBC 10.7 103/ul Normal 4.0-11.0 [facility] Comment on above: Performed By: #### C YTO #### [facility] [address] [place] [address] Dr. Jayy Marquez PROF CHEM 8 (BAS METB)on Anion gap [Moles/Vol] 13.4 mmol/L Normal [facility] Comment on above: Performed By: #### B MP #### [facility] [address] [place] [address] Dr. Jayy Marquez Calcium [Mass/Vol] 9.1 mg/dL Normal 8.5-10.1 [facility] Comment on above: Performed By: #### B MP #### [facility] [address] [place] [address] Dr. Jayy Marquez Chloride [Moles/Vol] 100 mmol/L Normal 98-107 [facility] Comment on above: Performed By: #### B MP #### [facility] [address] [place] [address] Dr. Jayy Marquez CO2 [Moles/Vol] 27.2 mmol/L Normal 21.0-32.0 [facility] Comment on above: Performed By: #### B MP #### [facility] [address] [place] [address] Dr. Jayy Marquez Creatinine [Mass/Vol] 0.77 mg/dL Normal 0.55-1.02 [facility] Comment on above: Performed By: #### B MP #### [facility] [address] [place] [address] [address] Jayy Marquez EGFR-AF LAO >60 Normal >=60 [facility] Comment on above: Performed By: #### B MP #### [facility] [address] [address] [address] Jayy Marquez EGFR-NON AF LAO >60 Normal >=60 [facility] Comment on above: Performed By: #### B MP #### [facility] [address] [place] [address] [address] Jayy Marquez Glucose [Mass/Vol] 173 mg/dL Critically high 74-106 [facility] Comment on above: Performed By: #### B MP #### [facility] [address] [place] [address] Dr. Jayy Marquez Potassium [Moles/Vol] 4.6 mmol/L Normal 3.5-5.1 [facility] Comment on above: Performed By: #### B MP #### [facility] [address] [place] [address] Dr. Jayy Marquez Sodium [Moles/Vol] 136 mmol/L Normal 136-145 [facility] Comment on above: Performed By: #### B MP #### [facility] [address] [place] [address] Dr. Jayy Marquez Urea nitrogen [Mass/Vol] 16.0 mg/dL Normal 7.0-18.0 [facility] Comment on above: Performed By: #### B MP #### [facility] [address] [place] [address] Dr. Jayy Marquez Urea nitrogen/Creatinine [Mass ratio] 20.8 mg/mg Normal [facility] Comment on above: Performed By: #### B MP #### [facility] [address] [place] [address] Dr. Jayy Marquez XR CHEST 1 Von [...] ELENO FUENTES Date: 2022-09-23 14:29 Normal [facility] BNPon 09-22-2022 Natriuretic peptide B (Bld) [Mass/Vol] 243.0 pg/mL Normal <=900.0 [facility] Comment on above: Performed By: #### B MP, BNP, HSTROPN #### [facility] [address] [place] [address] Dr. Jayy Marquez CBC AUTO DIFFon 09-22-2022 BASO # 0.0 103/ul Normal 0.0-0.1 [facility] Comment on above: Performed By: #### C VDAGS #### [facility] [address] [place] [address] Dr. Jayy Marquez Basophils/100 WBC (Bld) 0.4 % Normal 0.2-2.0 [facility] Comment on above: Performed By: #### C VDAGS #### [facility] [address] [place] [address] Dr. Jayy Marquez EO # 0.0 103/ul Normal 0.0-0.7 [facility] Comment on above: Performed By: #### C VDAGS #### [facility] [address] [place] [address] Dr. Jayy Marquez Eosinophils/100 WBC (Bld) 0.0 % Critically low 0.9-7.0 [facility] Comment on above: Performed By: #### C VDAGS #### [facility] [address] [place] [address] Dr. Jayy Marquez Erythrocyte distribution width (RBC) [Ratio] 13.1 % Normal 11.0-15.0 [facility] Comment on above: Performed By: #### C VDAGS #### [facility] [address] [place] [address] Dr. Jayy Marquez Hematocrit (Bld) [Volume fraction] 42.7 % Normal 36.0-48.0 [facility] Comment on above: Performed By: #### C VDAGS #### [facility] [address] [place] [address] Dr. Jayy Marquez Hemoglobin (Bld) [Mass/Vol] 13.9 g/dL Normal 12.0-16.0 [facility] Comment on above: Performed By: #### C VDAGS #### [facility] [address] [place] [address] Dr. Jayy Marquez IG # 0.03 10e3/ul Normal 0.00-0.03 [facility] Comment on above: Performed By: #### C VDAGS #### [facility] [address] [place] [address] Dr. Jayy Marquez IG % 0.4 % Normal 0.0-0.5 [facility] Comment on above: Performed By: #### C VDAGS #### [facility] [address] [place] [address] Dr. Jayy Marquez LYMPH # 0.4 103/ul Critically low 1.2-3.8 [facility] Comment on above: Performed By: #### C VDAGS #### [facility] [address] [place] [address] Dr. Jayy Marquez Lymphocytes/100 WBC (Bld) 5.5 % Critically low 20.5-60.0 [facility] Comment on above: Performed By: #### C VDAGS #### [facility] [address] [place] [address] Dr. Jayy Marquez MANUAL DIFF REQ NO Normal [facility] Comment on above: Performed By: #### C VDAGS #### [facility] [address] [place] [address] Dr. Jayy Marquez MCH (RBC) [Entitic mass] 31.2 pg Normal 26.7-34.0 [facility] Comment on above: Performed By: #### C VDAGS #### [facility] [address] [place] [address] Dr. Jayy Marquez MCHC (RBC) [Mass/Vol] 32.6 g/dL Normal 29.9-35.2 [facility] Comment on above: Performed By: #### C VDAGS #### [facility] [address] [address] [address] Jayy Marquez MCV (RBC) [Entitic vol] 96.0 fL Normal 81.0-99.0 [facility] Comment on above: Performed By: #### C VDAGS #### [facility] [address] [place] [address] Dr. Jayy Marquez MONO # 0.3 103/ul Normal 0.3-0.8 [facility] Comment on above: Performed By: #### C VDAGS #### [facility] [address] [place] [address] Dr. Jayy Marquez Monocytes/100 WBC (Bld) 3.5 % Normal 1.7-12.0 [facility] Comment on above: Performed By: #### C VDAGS #### [facility] [address] [place] [address] Dr. Jayy Marquez NEUT # 6.9 103/ul Critically high 1.4-6.5 [facility] Comment on above: Performed By: #### C VDAGS #### [facility] [address] [place] [address] Dr. Jayy Marquez Neutrophils/100 WBC (Bld) 90.2 % Critically high 43.0-75.0 [facility] Comment on above: Performed By: #### C VDAGS #### [facility] [address] [place] [address] Dr. Jayy Marquez Platelet mean volume (Bld) [Entitic vol] 9.8 fL Normal 9.5-13.5 [facility] Comment on above: Performed By: #### C VDAGS #### [facility] [address] [place] [address] Dr. Jayy Marquez PLT 207 103/ul Normal 150-450 [facility] Comment on above: Performed By: #### C VDAGS #### [facility] [address] [place] [address] Dr. Jayy Marquez RBC 4.45 106/ul Normal 4.20-5.40 [facility] Comment on above: Performed By: #### C VDAGS #### [facility] [address] [address] [address] Jayy Marquez WBC 7.6 103/ul Normal 4.0-11.0 [facility] Comment on above: Performed By: #### C VDAGS #### [facility] [address] [address] [address] Jayy Marquez BASO # 0.0 103/ul Normal 0.0-0.1 [facility] Comment on above: Performed By: #### C BC #### [facility] [address] [address] [address] Jayy Marquez Basophils/100 WBC (Bld) 0.4 % Normal 0.2-2.0 [facility] Comment on above: Performed By: #### C BC #### [facility] [address] [place] [address] Dr. Jayy Marquez EO # 0.1 103/ul Normal 0.0-0.7 [facility] Comment on above: Performed By: #### C BC #### [facility] [address] [place] [address] Dr. Jayy Marquez Eosinophils/100 WBC (Bld) 1.4 % Normal 0.9-7.0 [facility] Comment on above: Performed By: #### C BC #### [facility] [address] [place] [address] Dr. Jayy Marquez Erythrocyte distribution width (RBC) [Ratio] 13.2 % Normal 11.0-15.0 [facility] Comment on above: Performed By: #### C BC #### [facility] [address] [place] [address] Dr. Jayy Marquez Hematocrit (Bld) [Volume fraction] 45.5 % Normal 36.0-48.0 [facility] Comment on above: Performed By: #### C BC #### [facility] [address] [place] [address] Dr. Jayy Marquez Hemoglobin (Bld) [Mass/Vol] 15.3 g/dL Normal 12.0-16.0 [facility] Comment on above: Performed By: #### C BC #### [facility] [address] [place] [address] Dr. Jayy Marquez IG # 0.03 10e3/ul Normal 0.00-0.03 [facility] Comment on above: Performed By: #### C BC #### [facility] [address] [place] [address] Dr. Jayy Marquez IG % 0.3 % Normal 0.0-0.5 [facility] Comment on above: Performed By: #### C BC #### [facility] [address] [place] [address] Dr. Jayy Marquez LYMPH # 1.3 103/ul Normal 1.2-3.8 [facility] Comment on above: Performed By: #### C BC #### [facility] [address] [place] [address] Dr. Jayy Marquez Lymphocytes/100 WBC (Bld) 13.8 % Critically low 20.5-60.0 [facility] Comment on above: Performed By: #### C BC #### [facility] [address] [place] [address] Dr. Jayy Marquez MANUAL DIFF REQ NO Normal [facility] Comment on above: Performed By: #### C BC #### [facility] [address] [place] [address] Dr. Jayy Marquez MCH (RBC) [Entitic mass] 32.0 pg Normal 26.7-34.0 [facility] Comment on above: Performed By: #### C BC #### [facility] [address] [place] [address] Dr. Jayy Marquez MCHC (RBC) [Mass/Vol] 33.6 g/dL Normal 29.9-35.2 [facility] Comment on above: Performed By: #### C BC #### [facility] [address] [place] [address] Dr. Jayy Marquez MCV (RBC) [Entitic vol] 95.2 fL Normal 81.0-99.0 [facility] Comment on above: Performed By: #### C BC #### [facility] [address] [address] [address] Jayy Marquez MONO # 1.3 103/ul Critically high 0.3-0.8 [facility] Comment on above: Performed By: #### C BC #### [facility] [address] [address] [address] Jayy Marquez Monocytes/100 WBC (Bld) 13.7 % Critically high 1.7-12.0 [facility] Comment on above: Performed By: #### C BC #### [facility] [address] [place] [address] Dr. Jayy Marquez NEUT # 6.7 103/ul Critically high 1.4-6.5 [facility] Comment on above: Performed By: #### C BC #### [facility] [address] [place] [address] Dr. Jayy Marquez Neutrophils/100 WBC (Bld) 70.4 % Normal 43.0-75.0 [facility] Comment on above: Performed By: #### C BC #### [facility] [address] [place] [address] Dr. Jayy Marquez Platelet mean volume (Bld) [Entitic vol] 9.6 fL Normal 9.5-13.5 [facility] Comment on above: Performed By: #### C BC #### [facility] [address] [place] [address] Dr. Jayy Marquez PLT 218 103/ul Normal 150-450 [facility] Comment on above: Performed By: #### C BC #### [facility] [address] [place] [address] Dr. Jayy Marquez RBC 4.78 106/ul Normal 4.20-5.40 [facility] Comment on above: Performed By: #### C BC #### [facility] [address] [place] [address] Dr. Jayy Marquez WBC 9.5 103/ul Normal 4.0-11.0 [facility] Comment on above: Performed By: #### C BC #### [facility] [address] [place] [address] Dr. Jayy Marquez PROF CHEM 8 (BAS METB)on Anion gap [Moles/Vol] 11.3 mmol/L Normal [facility] [place] Comment on above: Performed By: #### B MP #### [facility] [address] [address] [address] Jayy Marquez Calcium [Mass/Vol] 8.7 mg/dL Normal 8.5-10.1 [facility] Comment on above: Performed By: #### B MP #### [facility] [address] [address] [address] Jayy Marquez Chloride [Moles/Vol] 100 mmol/L Normal 98-107 [facility] Comment on above: Performed By: #### B MP #### [facility] [address] [place] [address] Dr. Jayy Marquez CO2 [Moles/Vol] 27.6 mmol/L Normal 21.0-32.0 [facility] Comment on above: Performed By: #### B MP #### [facility] [address] [address] [address] Jayy Marquez Creatinine [Mass/Vol] 0.82 mg/dL Normal 0.55-1.02 [facility] Comment on above: Performed By: #### B MP #### [facility] [address] [place] [address] Dr. Jayy Marquez EGFR-AF LAO >60 Normal >=60 [facility] Comment on above: Performed By: #### B MP #### [facility] [address] [address] [address] Jayy Marquez EGFR-NON AF LAO >60 Normal >=60 [facility] Comment on above: Performed By: #### B MP #### [facility] [address] [address] [address] Jayy Marquez Glucose [Mass/Vol] 203 mg/dL Critically high 74-106 [facility] Comment on above: Performed By: #### B MP #### [facility] [address] [address] [address] Jayy Marquez Potassium [Moles/Vol] 3.9 mmol/L Normal 3.5-5.1 [facility] Comment on above: Performed By: #### B MP #### [facility] [address] [address] [address] Jayy Marquez Sodium [Moles/Vol] 135 mmol/L Critically low 136-145 [facility] Comment on above: Performed By: #### B MP #### [facility] [address] [address] [address] Jayy Marquez Urea nitrogen [Mass/Vol] 11.0 mg/dL Normal 7.0-18.0 [facility] Comment on above: Performed By: #### B MP #### [facility] [address] [place] [address] Dr. Jayy Marquez Urea nitrogen/Creatinine [Mass ratio] 13.4 mg/mg Normal [facility] Comment on above: Performed By: #### B MP #### [facility] [address] [address] [address] Jayy Marquez Anion gap [Moles/Vol] 12.9 mmol/L Normal [facility] Comment on above: Performed By: #### C YTO #### [facility] [address] [place] [address] Dr. Jayy Marquez Calcium [Mass/Vol] 9.2 mg/dL Normal 8.5-10.1 [facility] Comment on above: Performed By: #### C YTO #### [facility] [address] [place] [address] Dr. Jayy Marquez Chloride [Moles/Vol] 98 mmol/L Normal 98-107 [facility] Comment on above: Performed By: #### C YTO #### [facility] [address] [address] [address] Jayy Marquez CO2 [Moles/Vol] 25.8 mmol/L Normal 21.0-32.0 [facility] Comment on above: Performed By: #### C YTO #### [facility] [address] [address] [address] Jayy Marquez Creatinine [Mass/Vol] 0.90 mg/dL Normal 0.55-1.02 [facility] Comment on above: Performed By: #### C YTO #### [facility] [address] [place] [address] Dr. Jayy Marquez EGFR-AF LAO >60 Normal >=60 [facility] Comment on above: Performed By: #### C YTO #### [facility] [address] [address] [address] Jayy Marquez EGFR-NON AF LAO >60 Normal >=60 [facility] Comment on above: Performed By: #### C YTO #### [facility] [address] [address] [address] Jayy Marquez Glucose [Mass/Vol] 150 mg/dL Critically high 74-106 [facility] Comment on above: Performed By: #### C YTO #### [facility] [address] [place] [address] Dr. Jayy Marquez Potassium [Moles/Vol] 3.7 mmol/L Normal 3.5-5.1 [facility] Comment on above: Performed By: #### C YTO #### [facility] [address] [place] [address] Dr. Jayy Marquez Sodium [Moles/Vol] 133 mmol/L Critically low 136-145 [facility] [place] Comment on above: Performed By: #### C YTO #### [facility] [address] [place] [address] Dr. Jayy Marquez Urea nitrogen [Mass/Vol] 14.0 mg/dL Normal 7.0-18.0 [facility] Comment on above: Performed By: #### C YTO #### [facility] [address] [address] [address] Jayy Marquez Urea nitrogen/Creatinine [Mass ratio] 15.6 mg/mg Normal [facility] Comment on above: Performed By: #### C YTO #### [facility] [address] [place] [address] Dr. Jayy Marquez RESPIRATORY PANEL PLUSon Adenovirus Not detected Normal NOT DETECTED [facility] Comment on above: Performed By: #### C VDAGS #### [facility] [address] [place] [address] Dr. Jayy King. Parapertusis Not detected Normal NOT DETECTED [facility] Comment on above: Performed By: #### C VDAGS #### [facility] [address] [place] [address] Dr. Jayy King. Pertussis Not detected Normal NOT DETECTED [facility] Comment on above: Performed By: #### C VDAGS #### [facility] [address] [place] [address] Dr. Jayy Marquez Chlamydia Pneumoniae Not detected Normal NOT DETECTED [facility] Comment on above: Performed By: #### C VDAGS #### [facility] [address] [place] [address] Dr. Jayy Marquez Coronavirus 229E Not detected Normal NOT DETECTED [facility] Comment on above: Performed By: #### C VDAGS #### [facility] [address] [place] [address] Dr. Jayy Marquez Coronavirus HKU1 Not detected Normal NOT DETECTED [facility] Comment on above: Performed By: #### C VDAGS #### [facility] [address] [place] [address] Dr. Jayy Marquez Coronavirus NL63 Not detected Normal NOT DETECTED [facility] Comment on above: Performed By: #### C VDAGS #### [facility] [address] [place] [address] Dr. Jayy Marquez Coronavirus OC43 Not detected Normal NOT DETECTED [facility] Comment on above: Performed By: #### C VDAGS #### [facility] [address] [place] [address] Dr. Jayy Marquez Influenza A H1 Not detected Normal NOT DETECTED [facility] Comment on above: Performed By: #### C VDAGS #### [facility] [address] [place] [address] Dr. Jayy Marquez Influenza A H1 2009 Not detected Normal NOT DETECTED [facility] Comment on above: Performed By: #### C VDAGS #### [facility] [address] [address] [address] Jayy Marquez Influenza A H3 Not detected Normal NOT DETECTED [facility] Comment on above: Performed By: #### C VDAGS #### [facility] [address] [place] [address] Dr. Jayy Marquez Influenza B Not detected Normal NOT DETECTED [facility] Comment on above: Performed By: #### C VDAGS #### [facility] [address] [address] [address] Jayy Marquez Metapneumovirus Not detected Normal NOT DETECTED [facility] Comment on above: Performed By: #### C VDAGS #### [facility] [address] [place] [address] Dr. Jayy Marquez Mycoplas. Pneumoniae Not detected Normal NOT DETECTED [facility] Comment on above: Performed By: #### C VDAGS #### [facility] [address] [place] [address] Dr. Jayy Marquez Parainfluenza 1 Not detected Normal NOT DETECTED [facility] Comment on above: Performed By: #### C VDAGS #### [facility] [address] [place] [address] Dr. Jayy Marquez Parainfluenza 2 Not detected Normal NOT DETECTED [facility] Comment on above: Performed By: #### C VDAGS #### [facility] [address] [place] [address] Dr. Jayy Marquez Parainfluenza 3 Not detected Normal NOT DETECTED [facility] Comment on above: Performed By: #### C VDAGS #### [facility] [address] [place] [address] Dr. Jayy Marquez Parainfluenza 4 Not detected Normal NOT DETECTED [facility] Comment on above: Performed By: #### C VDAGS #### [facility] [address] [place] [address] Dr. Jayy Marquez Rhino/Enterovirus Not detected Normal NOT DETECTED [facility] Comment on above: Performed By: #### C VDAGS #### [facility] [address] [place] [address] Dr. Jayy Marquez RP2 Header 1 RESPIRATORY PANEL: VIRUSES Normal [facility] Comment on above: Performed By: #### C VDAGS #### [facility] [address] [place] [address] Dr. Jayy Marquez RP2 Header 2 RESPIRATORY PANEL: BACTERIA Normal [facility] Comment on above: Performed By: #### C VDAGS #### [facility] [address] [place] [address] Dr. Jayy Marquez RSV Not detected Normal NOT DETECTED [facility] Comment on above: Performed By: #### C VDAGS #### [facility] [address] [place] [address] Dr. Jayy Marquez SARS-CoV-2 (COVID-19) RNA SILVINO+probe Ql (Unsp spec) Not detected Normal NOT DETECTED [facility] Comment on above: Performed By: #### C VDAGS #### [facility] [address] [place] [address] Dr. Jayy Marquez SYMPTOMATIC COVID-19 ANTIGEN on 09-22-2022 EUA Statement SEE BELOW Normal [facility] Comment on above: Result Comment: This [...] sooner. Performed By: #### C VDAGS #### [facility] [address] [place] [address] Dr. Jayy Marquez SARS-CoV-2 (COVID-19) RNA SILVINO+probe Ql (Unsp spec) Negative Normal NEGATIVE [facility] Comment on above: Performed By: #### C VDAGS #### [facility] [address] [place], [place] [address] Dr. Jayy Marquez TROPONIN, HIGH SENSITIVITYon 09-22-2022 HSTROP 12.9 pg/mL Normal 4.0-51.3 [facility] Comment on above: Result Comment: CUT- OFF POINTS HAVE BEEN ESTABLISHED BASED ON THE FOURTH UNIVERSAL DEFINITIONS OF MYOCARDIAL INFARCTION. THE UPPER REFERENCE LIMIT (URL) OF TROPONIN, DEFINED THE 99TH PERCENTILE OF cTnI DISTRIBUTION IN A REFERENCE POPULATION, HAS BEEN CONFIRMED THE DECISION THRESHOLD FOR OK DIAGNOSIS. Performed By: #### B MP, BNP, HSTROPN #### [facility] [id number] Jayy Marquez XR CHEST 1 Von [...] ARIANNA CEVALLOS Date: 2022-09-22 00:51 Normal [facility] CT CHEST WO CONon 09-01-2022 CT CHEST [...] HANDY KEATING Date: 2022-09-01 15:28 Normal [facility] ACID FAST SMEAR AND CXon Acid Fast Culture Negative Normal [facility] Comment on above: Result Comment: No a goyo fast bacilli isolated after 6 weeks. Performed By: #### A FB #### [facility] [address] [place] [address] Dr. Jayy Marquez Performed By: #### C VDAGS #### [facility] [address] [place] [address] Dr. Jayy Marquez Acid Fast Smear Negative Normal [facility] Comment on above: Performed By: #### A FB #### [facility] [address] [place] [address] Dr. Jayy Marquez Performed By: #### C VDAGS #### [facility] [address] [place] [address] Dr. Jayy Marquez [employer] Specimen Processing Concentration Normal [facility] Comment on above: Performed By: #### A FB #### [facility] [address] [place] [address] Dr. Jayy Marquez Performed By: #### C VDAGS #### [facility] [address] [place] [address] Dr. Jayy Marquez FUNGAL CULTUREon 04-23-2022 Fungus (Mycology) Culture Final report Normal [facility] Comment on above: Performed By: #### C XFUN #### [facility] [address] [place] [address] Dr. Jayy Marquez Performed By: #### C VDAGS #### [facility] [address] [place] [address] Dr. Jayy Marquez Fungus Stain Final report Normal [facility] Comment on above: Performed By: #### C XFUN #### [facility] [address] [place] [address] Dr. Jayy Marquez Performed By: #### C VDAGS #### [facility] [address] [place] [address] Dr. Jayy Marquez Result 1 Comment Normal [facility] Comment on above: Result Comment: TANYA/ Calcofluor preparation: no fungus observed. Performed By: #### C XFUN #### [facility] [address] [place] [address] Dr. Jayy Marquez Result Comment: No y east or mold isolated after 4 weeks. Performed By: #### C VDAGS #### [facility] [address] [place] [address] Dr. Jayy Marquez CULTURE OTHERon 03-26-2022 CULTURE [...] S F Tetracycline >=16 R F Normal [facility] Comment on above: Performed By: #### C YTO #### [facility] [address] [place] [address] Dr. Jayy Marquez CULTURE OTHERon 03-25-2022 CULTURE [...] F Levofloxacin 0.25 S F Normal [facility] Comment on above: Performed By: #### C YTO #### [facility] [address] [address] [address] Jayy Marquez CYTOLOGYon 03-23-2022 SENT TO REF LAB 03/23/2022 Normal [facility] Comment on above: Performed By: #### C YTO #### [facility] [address] [place] [address] Dr. Jayy AMADOR STAINon 03-23-2022 DIPHTHEROIDS Normal [facility] Comment on above: Performed By: #### C VDAGS #### [facility] [address] [place] [address] Dr. Jayy Marquez EPITHELIALS [facility] Comment on above: Performed By: #### C VDAGS #### [facility] [address] [place] [address] Dr. Jayy Marquez FUNGAL ELEMENTS [facility] Comment on above: Performed By: #### C VDAGS #### [facility] [address] [place] [address] Dr. Jayy AMADOR NEG BACILLI FEW [facility] Comment on above: Performed By: #### C VDAGS #### [facility] [address] [place] [address] Dr. Jayy AMADOR NEG DIPPLOCOCCI Normal [facility] Comment on above: Performed By: #### C VDAGS #### [facility] [address] [place] [address] Dr. Jayy AMADOR POS BACILLI Normal [facility] Comment on above: Performed By: #### C VDAGS #### [facility] [address] [place] [address] Dr. Jayy Marquez GRAM POSITIVE COCCI FEW Normal [facility] Comment on above: Performed By: #### C VDAGS #### [facility] [address] [address] [address] Jayy Marquez GRAM STAIN SOURCE Rt Middle Lobe Lavage Normal [facility] Comment on above: Performed By: #### C VDAGS #### [facility] [address] [place] [address] Dr. Jayy Marquez GRAM STAIN SOURCE Lingula Lt Upper Lob e Lavage Normal [facility] Comment on above: Performed By: #### C VDAGS #### [facility] [address] [place] [address] Dr. Jayy Marquez GS_DIPTH Normal [facility] Comment on above: Performed By: #### C VDAGS #### [facility] [address] [place] [address] Dr. Jayy Marquez WBC MANY Normal [facility] Comment on above: Performed By: #### C VDAGS #### [facility] [address] [place] [address] Dr. Jayy Marquez WBC MODERATE Normal [facility] Comment on above: Performed By: #### C VDAGS #### [facility] [address] [place] [address] Dr. Jayy Marquez Covid-19 PCR ([facility])on 02-25 SARS-CoV-2 (COVID-19) RNA SILVINO+probe Ql (Unsp spec) Not detected Normal NOT DETECTED [facility] Comment on above: Result Comment: This test is not yet approved or cleared by the [place] FDA. When there are no FDA-approved or cleared tests available, and other criteria are met, FDA can make tests available under an emergency access mechanism called an Emergency Use Authorization (EUA). The EUA for this test is supported by the Schedule Planning Manager of Health and Human Service's (HHS's) declaration [...] SARS-CoV-2. Performed By: #### C YTO #### [facility] [address] LUNG CANCER SCREENINGon [...] HANDY KEATING Date: 2022-03-04 16:14 Normal [facility] CBC AUTO DIFFon 10-30-2021 BASO # 0.0 103/ul Normal 0.0-0.1 [facility] Comment on above: Performed By: #### C VDAGS #### [facility] [address] [place] [address] Dr. Jayy Marquez Basophils/100 WBC (Bld) 0.7 % Normal 0.2-2.0 [facility] Comment on above: Performed By: #### C VDAGS #### [facility] [address] [place] [address] Dr. Jayy Marquez EO # 0.2 103/ul Normal 0.0-0.7 [facility] Comment on above: Performed By: #### C VDAGS #### [facility] [address] [place] [address] Dr. Jayy Marquez Eosinophils/100 WBC (Bld) 2.6 % Normal 0.9-7.0 [facility] Comment on above: Performed By: #### C VDAGS #### [facility] [address] [place] [address] Dr. Jayy Marquez Erythrocyte distribution width (RBC) [Ratio] 14.7 % Normal 11.0-15.0 [facility] Comment on above: Performed By: #### C VDAGS #### [facility] [address] [place] [address] Dr. Jayy Marquez Hematocrit (Bld) [Volume fraction] 48.9 % Critically high 36.0-48.0 [facility] Comment on above: Performed By: #### C VDAGS #### [facility] [address] [place] [address] Dr. Jayy Marquez Hemoglobin (Bld) [Mass/Vol] 15.5 g/dL Normal 12.0-16.0 [facility] Comment on above: Performed By: #### C VDAGS #### [facility] [address] [place] [address] Dr. Jayy Marquez IG # 0.01 10e3/ul Normal 0.00-0.03 [facility] Comment on above: Performed By: #### C VDAGS #### [facility] [address] [address] [address] Jayy Marquez IG % 0.2 % Normal 0.0-0.5 [facility] Comment on above: Performed By: #### C VDAGS #### [facility] [address] [address] [address] Jayy Marquez LYMPH # 1.6 103/ul Normal 1.2-3.8 [facility] Comment on above: Performed By: #### C VDAGS #### [facility] [address] [address] [address] Jayy Marquez Lymphocytes/100 WBC (Bld) 26.0 % Normal 20.5-60.0 [facility] Comment on above: Performed By: #### C VDAGS #### [facility] [address] [place] [address] Dr. Jayy Marquez MANUAL DIFF REQ NO Normal [facility] Comment on above: Performed By: #### C VDAGS #### [facility] [address] [place] [address] Dr. Jayy Marquez MCH (RBC) [Entitic mass] 31.5 pg Normal 26.7-34.0 [facility] Comment on above: Performed By: #### C VDAGS #### [facility] [address] [place] [address] Dr. Jayy Marquez MCHC (RBC) [Mass/Vol] 31.7 g/dL Normal 29.9-35.2 [facility] Comment on above: Performed By: #### C VDAGS #### [facility] [address] [place] [address] Dr. Jayy Marquez MCV (RBC) [Entitic vol] 99.4 fL Critically high 81.0-99.0 [facility] Comment on above: Performed By: #### C VDAGS #### [facility] [address] [place] [address] Dr. Jayy Marquez MONO # 0.8 103/ul Normal 0.3-0.8 [facility] Comment on above: Performed By: #### C VDAGS #### [facility] [address] [place] [address] Dr. Jayy Marquez Monocytes/100 WBC (Bld) 12.4 % Critically high 1.7-12.0 [facility] Comment on above: Performed By: #### C VDAGS #### [facility] [address] [place] [address] Dr. Jayy Marquez NEUT # 3.6 103/ul Normal 1.4-6.5 [facility] Comment on above: Performed By: #### C VDAGS #### [facility] [address] [place] [address] Dr. Jayy Marquez Neutrophils/100 WBC (Bld) 58.1 % Normal 43.0-75.0 [facility] Comment on above: Performed By: #### C VDAGS #### [facility] [address] [place] [address] Dr. Jayy Marquez Platelet mean volume (Bld) [Entitic vol] 10.1 fL Normal 9.5-13.5 [facility] Comment on above: Performed By: #### C VDAGS #### [facility] [address] [place] [address] Dr. Jayy Maqruez PLT 234 103/ul Normal 150-450 [facility] Comment on above: Performed By: #### C VDAGS #### [facility] [address] [place] [address] Dr. Jayy Marquez RBC 4.92 106/ul Normal 4.20-5.40 [facility] Comment on above: Performed By: #### C VDAGS #### [facility] [address] [place] [address] Dr. Jayy Marquez WBC 6.2 103/ul Normal 4.0-11.0 [facility] Comment on above: Performed By: #### C VDAGS #### [facility] [address] [place] [address] Dr. Jayy Marquez FREE T3on 10-30-2021 FREE T3 2.73 pg/mlL Normal 2.18-3.98 [facility] Comment on above: Performed By: #### C VDAGS #### [facility] [address] [place] [address] Dr. Jayy Marquez FREE T4on 10-30-2021 Free T4 [Mass/Vol] 1.25 ng/dL Normal 0.76-1.46 [facility] Comment on above: Performed By: #### F T4 #### [facility] [address] [place] [address] Dr. Jayy Marquez PROF CHEM 8 (BAS METB)on Anion gap [Moles/Vol] 8.8 mmol/L Normal [facility] Comment on above: Performed By: #### C VDAGS #### [facility] [address] [place] [address] Dr. Jayy Marquez Calcium [Mass/Vol] 9.4 mg/dL Normal 8.5-10.[address] [facility] Comment on above: Performed By: #### C VDAGS #### [facility] [address] [place] [address] Dr. Jayy Marquez Chloride [Moles/Vol] 104 mmol/L Normal 98-107 [facility] Comment on above: Performed By: #### C VDAGS #### [facility] [address] [place] [address] Dr. Jayy Marquez CO2 [Moles/Vol] 29.4 mmol/L Normal 21.0-32.0 [facility] Comment on above: Performed By: #### C VDAGS #### [facility] [address] [place] [address] Dr. Jayy Marquez Creatinine [Mass/Vol] 0.74 mg/dL Normal 0.55-1.02 [facility] Comment on above: Performed By: #### C VDAGS #### [facility] [address] [place] [address] Dr. Jayy Marquez EGFR-AF LAO >60 Normal >=60 [facility] Comment on above: Performed By: #### C VDAGS #### [facility] [address] [place] [address] Dr. Jayy Marquez EGFR-NON AF LAO >60 Normal >=60 [facility] Comment on above: Performed By: #### C VDAGS #### [facility] [address] [address] [address] Jayy Marquez Glucose [Mass/Vol] 108 mg/dL Critically high 74-106 [facility] Comment on above: Performed By: #### C VDAGS #### [facility] [address] [address] [address] Jayy Marquez Potassium [Moles/Vol] 4.2 mmol/L Normal 3.5-5.1 [facility] Comment on above: Performed By: #### C VDAGS #### [facility] [address] [address] [address] Jayy Marquez Sodium [Moles/Vol] 138 mmol/L Normal 136-145 [facility] Comment on above: Performed By: #### C VDAGS #### [facility] [address] [address] [address] Jayy Marquez Urea nitrogen [Mass/Vol] 16.0 mg/dL Normal 7.0-18.0 [facility] Comment on above: Performed By: #### C VDAGS #### [facility] [address] [address] [address] Jayy Marquez Urea nitrogen/Creatinine [Mass ratio] 21.6 mg/mg Normal [facility] Comment on above: Performed By: #### C VDAGS #### [facility] [address] [place] [address] Dr. Jayy Dupree 10-30-2021 AST [Catalytic activity/Vol] 11 U/L Critically low 15-37 [facility] Comment on above: Performed By: #### B MP #### [facility] [address] [place] [address] Dr. Jayy Stringer 10-30-2021 ALT [Catalytic activity/Vol] 22 U/L Normal 14-59 [facility] Comment on above: Performed By: #### C VDAGS #### [facility] [address] [place] [address] Dr. Jayy Marquez TSHon 10-30-2021 TSH 1.593 uIU/mL Normal 0.358-3.740 [facility] Comment on above: Performed By: #### B #### [facility] [address] LUNG SCREENING (ANNUAL)on 09-26-2019 Patient Name: AKIL TORRES ---CT--- Exam Date/Time 09/26/2019 10:55:[address] Low Dose Lung Scrn Ordering Physician RAVINDRA HOWELL, SHELBI PERLA Accession Number [id number] CPT4 Codes G0297 (CT Low Dose Lung [...] ROBERT Transcribed Date and Time: 09/26/2019 1:18 [facility], [place], [facility] Incoming Radiology Results From [facility] - 09/26/2019 1:28 PM EDT Patient Name: AKIL TORRES ---CT--- Exam Date/Time 09/26/2019 10:55:[address] Low Dose Lung Scrn Ordering Physician RAVINDRA HOWELL, SHELBI PERLA Accession Number [id number] CPT4 Codes G0297 (CT Low Dose Lung [...] ROBERT Transcribed Date and Time: 09/26/2019 1:18 [place] CT Low Dose Lung Screeningon 09-26-2019 CT Low Dose Lung Screening Patient Name: AKIL TORRES CT Exam Date/Time 09/26/2019 10:55:[address] Low Dose Lung Scrn Ordering Physician RAVINDRA HOWELL TAMMY KAY Accession Number [id number] CPT4 Codes G0297 (CT Low Dose Lung [...] Transcribed Date and Time: 09/26/2019 1:18 Normal [facility] OBSOLETEon 11-13-2016 OBSOLETE Refill (ENDMED) ----AKIL TORRES ([id number]) 1955 FDate Time Provider Department11/13/16 [place] RATLIFF During your visit today, we recorded the following information about you:Arabella Frey MA 11/13/2016 8:17 AM SignedPatient has not been seen in over a year.Allergies As of Date: 11/13/2016(No Known Allergies)Date Reviewed: 07/03/2015Reviewed by: Madeleine Dillard Ma - Fully AssessedReason for Visit: Refill [...] is not on file. Status:Closed by MADELEINE DILLARD MA on 11/16/16 Normal [facility] Colonoscopy w/ or w/o biopsy on 01-12-2013 Colon polyps Internal hemorrhoids Normal appearing terminal ileum and colonic mucosa, s/p random biopsies [facility] This order was created through External Result Entry [facility] Vital Signs Date Time Vital Sign Value Performing Clinician Facility 12-20-2024 11:170400 Body height 162.6 cm Hector Arellano MD Work Phone: [facility] 12-20-2024 11:17-0400 Body mass index (BMI) [Ratio] 29.35 kg/m2 Hector Arellano MD Work Phone: [facility] 12-20-2024 11:17-0400 Body weight 77.56 kg Hector Arellano MD Work Phone: [facility] 12-20-2024 11:17-0400 Diastolic blood pressure 69 mm[Hg] Hector Arellano MD Work Phone: [facility] 12-20-2024 11:17-0400 Heart rate 70 /min Hector Arellano MD Work Phone: [facility] 12-20-2024 11:17-0400 Systolic blood pressure 124 mm[Hg] Hector Arellano MD Work Phone: [facility] 09-28-2024 14:02-0400 Body height 162.6 cm Antonio Hopkins MD Work Phone: [facility] 09-28-2024 14:02-0400 Body mass index (BMI) [Ratio] 29.35 kg/m2 Antonio Hopkins MD Work Phone: [facility] 09-28-2024 14:02-0400 Body temperature 97.81 [degF] Antonio Hopkins MD Work Phone: [facility] 09-28-2024 14:02-0400 Body weight 77.56 kg Antonio Hopkins MD Work Phone: [facility] 09-28-2024 14:02-0400 Diastolic blood pressure 64 mm[Hg] Antonio Hopkins MD Work Phone: [facility] 09-28-2024 14:02-0400 Heart rate 74 /min Antonio Hopkins MD Work Phone: [facility] 09-28-2024 14:02-0400 Respiratory rate 22 /min Antonio Hopkins MD Work Phone: [facility] 09-28-2024 14:02-0400 SaO2% (BldA) [Mass fraction] 93 % Antonio Hopkins MD Work Phone: [facility] 09-28-2024 14:02-0400 Systolic blood pressure 116 mm[Hg] Antonio Hopkins MD Work Phone: [facility] 09-19-2024 09:18-0400 Body height 162.6 cm Hector Arellano MD Work Phone: [facility] 09-19-2024 09:18-0400 Body mass index (BMI) [Ratio] 30.38 kg/m2 Hector Arellano MD Work Phone: [facility] 09-19-2024 09:18-0400 Body weight 80.29 kg Hector Arellano MD Work Phone: [facility] 09-19-2024 09:18-0400 Diastolic blood pressure 66 mm[Hg] Hector Arellano MD Work Phone: [facility] 09-19-2024 09:18-0400 Heart rate 65 /min Hector Arellano MD Work Phone: [facility] 09-19-2024 09:18-0400 Systolic blood pressure 121 mm[Hg] Hector Arellano MD Work Phone: [facility] 04-27-2024 11:07-0500 Body height 162.6 cm Barbie Aichholz EXECUTIVE VP Work Phone: [facility] 04-27-2024 11:07-0500 Body mass index (BMI) [Ratio] 30.55 kg/m2 Barbie Mattz EXECUTIVE VP Work Phone: [facility] 04-27-2024 11:07-0500 Body temperature 97.81 [degF] Barbie Mattz EXECUTIVE VP Work Phone: [facility] 04-27-2024 11:07-0500 Body weight 80.74 kg Barbie Mattz EXECUTIVE VP Work Phone: [facility] 04-27-2024 11:07-0500 Diastolic blood pressure 62 mm[Hg] Barbie Sidhuholz EXECUTIVE VP Work Phone: [facility] 04-27-2024 11:07-0500 Heart rate 74 /min Barbie Mattz EXECUTIVE VP Work Phone: [facility] 04-27-2024 11:07-0500 Respiratory rate 16 /min Barbie Mattz EXECUTIVE VP Work Phone: [facility] 04-27-2024 11:07-0500 SaO2% (BldA) [Mass fraction] 97 % aBrbie Mattz EXECUTIVE VP Work Phone: [facility] 04-27-2024 11:07-0500 Systolic blood pressure 110 mm[Hg] Barbie Sidhulatoyaz EXECUTIVE VP Work Phone: [facility] 03-28-2024 11:16-0500 Body height 162.6 cm Antonio Hopkins MD Work Phone: [facility] 03-28-2024 11:16-0500 Body mass index (BMI) [Ratio] 31.07 kg/m2 Antonio Hopkins MD Work Phone: [facility] 03-28-2024 11:16-0500 Body temperature 97.11 [degF] Antonio Hopkins MD Work Phone: [facility] 03-28-2024 11:16-0500 Body weight 82.1 kg Antonio Hopkins MD Work Phone: [facility] 03-28-2024 11:16-0500 Diastolic blood pressure 60 mm[Hg] Antonio Hopkins MD Work Phone: [facility] 03-28-2024 11:16-0500 Heart rate 71 /min Antonio Hopkins MD Work Phone: [facility] 03-28-2024 11:16-0500 Respiratory rate 22 /min Antonio Hopkins MD Work Phone: [facility] 03-28-2024 11:16-0500 SaO2% (BldA) [Mass fraction] 97 % Antonio Hopkins MD Work Phone: [facility] 03-28-2024 11:16-0500 Systolic blood pressure 116 mm[Hg] Antonio Hopkins MD Work Phone: [facility] 04-21-2023 14:10-0500 Blood Pressure Location Kale MARINELLI [facility] 04-21-2023 14:10-0500 Diastolic blood pressure 78 mm[Hg] Kale MARINELLI [facility] 04-21-2023 14:10-0500 Heart rate 72 /min Kale MARINELLI [facility] 04-21-2023 14:10-0500 Respiratory rate 16 /min Kale MARINELLI [facility] 04-21-2023 14:10-0500 Systolic blood pressure 128 mm[Hg] Kale MARINELLI [facility] Encounters Encounter Date Encounter Type Care Provider Facility Start: 12-20-2024 End: 12-20-2024 John Arellano MD Work Phone: [facility] Start: 12-20-2024 End: 12-20-2024 John Arellano MD Work Phone: [facility] Start: 12-20-2024 End: 12-20-2024 Office outpatient visit 15 minutes Hector Arellano MD Work Phone: [facility] Comment on above: Abnormal positron em ission tomography (PET) scan (Primary Dx); [facility] Start: 12-20-2024 End: 12-20-2024 ambulatory HECTOR ARELLANO Not Available Start: 10-10-2024 End: 10-10-2024 Clinisync Result Encounter Antonio Hopkins MD Work Phone: [facility] Unsolicited Start: 10-10-2024 End: 10-10-2024 Clinisync Result Encounter Antonio Hopkins MD Work Phone: [facility] Unsolicited Start: 10-10-2024 End: 10-10-2024 ambulatory [facility] Start: 10-06-2024 End: 10-06-2024 Clinisync Result Encounter [...] Available Start: 09-06-2024 End: 09-06-2024 ambulatory EHAB [facility] Start: 09-05-2024 End: 09-05-2024 Clinisync Result [...] Start: 06-12-2024 End: 06-12-2024 Refill Barbie Isra EXECUTIVE VP Work Phone: [facility] Comment on above: Type 2 diabetes rhea itus without complication, without long- term current use of insulin ([facility]) (Primary Dx) Start: 06-05-2024 End: 06-05-2024 Clinisync Result Encounter Barbie Shakaz EXECUTIVE VP Work Phone: [facility] Unsolicited Start: 06-05-2024 End: 06-05-2024 Clinisync Result Encounter Barbie Shakaz EXECUTIVE VP Work Phone: [facility] Unsolicited Start: 04-27-2024 End: 04-27-2024 Transitional care manage srvc 14 day discharge Barbie Dhaliwal EXECUTIVE VP Work Phone: [facility] Comment on above: COPD [...] Bamboo flowsheet Antonio Hopkins MD Work Phone: [facility] Start: 03-28-2024 End: 03-28-2024 Patient encounter procedure Antonio Hopkins MD Work Phone: [facility] Work Phone: Start: 03-28-2024 End: 03-28-2024 Postop follow up visit related to original px Antonio Hopkins MD Work Phone: [facility] Comment on above: Medicare annual well ness visit, subsequent (Primary Dx) Start: 03-28-2024 End: 03-28-2024 ambulatory ANTONIO HOPKINS Not Available Start: 01-31-2024 End: 01-31-2024 Clinisync Result Encounter Generic External Data Provider [facility] External [facility] Unsolicited Start: 01-31-2024 End: 01-31-2024 Clinisync Result Encounter Generic External Data Provider [facility] External Department Unsolicited Start: 06-04-2023 End: 06-05-2023 ambulatory Kale MARINELLI Facility:[facility] Start: 05-12-2023 End: 05-12-2023 ambulatory Kale Marinelli Facility:[facility] Start: 05-12-2023 End: 05-13-2023 ambulatory Kale MARINELLI [facility] Work Phone: Start: 05-12-2023 End: 05-12-2023 Departed Referred MD Kale Marinelli Work Phone: [facility] Start: 04-21-2023 End: 04-22-2023 [facility]ulatory [facility] Start: 04-21-2023 End: 04-21-2023 Patient encounter procedure Kale MARINELLI General Surgery [facility] Start: 04-02-2023 ambulatory Kale MARINELLI Facility:[facility] Start: 09-22-2022 Evaluation and manag ement of inpatient DR DAYAMI FULLER . Facility:[facility] Start: 09-01-2022 End: 09-02-[address] HANDY KEATING Facility:[facility] Start: 03-23-2022 End: 03-23-2022 ambulatory ALIS HEAD . Facility:[facility] Start: 03-23-2022 Encounter for preprocedural cardiovascular examination ALIS RAMACHANDRAN . [facility] Start: 03-23-2022 Encounter for preprocedural laboratory examination ALIS HEAD . [facility] Start: 03-17-2022 End: 03-18-2022 ambulatory ALIS HEAD . Facility:[facility] Start: 03-17-2022 End: 03-18-2022 Encounter for preprocedural laboratory examination ALIS HEAD . Facility:[facility] Start: 03-04-2022 End: 03-05-[address] HANDY KEATING Facility:[facility] Start: 10-30-2021 End: 10-31-[address] ANTONIO HOPKINS Facility:[facility] Start: 09-26-2019 End: 09-26-2019 Subsequent hospital visit by physician Shelbi Howell Work Phone: [facility] Comment on above: Cigarette nicotine d ependence with nicotine-induced disorder Start: 09-08-2018 Patient encounter procedure [facility] Start: 04-04-2018 Patient encounter procedure Eddi Diaz [facility] Start: 03-08-2018 Patient encounter procedure MONICA FIGUEROA [facility] Start: 03-07-2018 Patient encounter procedure MONICA FIGUEROA [facility] Start: 02-22-2018 Patient encounter procedure Ottoniel Fuchs [facility] Start: 09-14-2017 Patient encounter procedure MONICA FIGUEROA [facility] Start: 08-14-2017 Emergency department patient visit MARTIN DOZIER [facility] Start: 08-13-2017 Patient encounter procedure Ottoniel Fuchs [facility] Start: 01-12-2013 Conversion Encounter Ottoniel jackson MD Work Phone: [facility] Start: 01-12-2013 Legacy Encounter Ottoniel osborn MD Work Phone: [facility] Procedures Date Procedure Procedure Detail [...] ALL CBC WITH AUTO DIFF Barbie Isra EXECUTIVE VP Work Phone: Start: 01-31-2024 ALL HEMOGLOBIN Generic [...] Colonoscopy Kale MARINELLI Extraction of cataract Ramon MARINELLI Laparoscopy Kale MARINELLI Ligation of fallopian tube Cammy MARINELLI Thyroidectomy Kale MARINELLI Plan of Treatment Date Care Activity Detail Author Start: 05-31-2033 Screening for malign ant neoplasm of colon [facility] Start: 05-12-2033 Screening for malign ant neoplasm of colon [facility] Start: 12-24-2025 DTaP/Tdap/Td vaccine (2 - Td) DTaP/Tdap/Td vaccine (2 - Td) [place] Start: 06-05-2025 Urine screening for protein Diabetes: Urine Protein Screening [facility] Start: 04-03-2025 End: 04-03-2025 Patient encounter procedure 04/03/2025 1:00 PM EST Office Visit [facility] [address] [place] [id number] Antonio Hopkins MD [address] [place] [address] [facility] Start: 03-28-2025 Medicare Annual Well ness (AWV) Medicare Annual Wellness (AWV) [facility] Start: 12-25-2024 Influenza vaccination Influenza Vacc ine (#1) [facility] Start: 12-20-2024 End: 12-20-2024 Patient encounter procedure [facility] Comment on above: Arrived Start: 12-03-2024 Hemoglobin A1c measurement Diabetes: Hemoglobin A1C [facility] Start: 09-28-2024 End: 09-28-2025 Hemoglobin A1c/Hemoglobin.total in Blood Hemoglobin A1c Lab Routine Type 2 diabetes mellitus without complication, without long-term current use of insulin Expected: 09/28/2024 (Approximate), Expires: 09/28/2025 [facility] Work Phone: Comment on above: Expected: 09/28/2024 (Approximate), Expires: 09/28/2025 Start: 09-28-2024 End: 09-28-2024 Patient encounter procedure [facility] Comment on above: Arrived Start: 09-26-2024 End: 09-26-2024 Patient encounter procedure 09/26/2024 1:00 PM EDT Office Visit [facility] [address] [place] [address] Antonio Hopkins MD [address] [place] [address] [facility] Start: 09-19-2024 End: 09-19-2024 Patient encounter procedure 09/19/2024 9:20 AM EDT Office Visit [facility] [address] [place] [address] Hector Arellano MD [address] [place] [address] Arrived [facility] Comment on above: Arrived Start: 09-02-2024 Hemoglobin A1c measurement Diabetes: Hemoglobin A1C [facility] Start: 06-24-2024 End: 04-27-2025 DXA Skeletal system Views for bone density DEXA bone density Imaging Routine Osteopenia, unspecified location Menopause Expected: 06/24/2024 (Approximate), Expires: 04/27/2025 [facility] Comment on above: Expected: 06/24/2024 (Approximate), Expires: 04/27/2025 Start: 06-24-2024 End: 06-25-2025 MG Breast - bilateral Screening Bilateral screening mammogram Imaging Routine Encounter for screening mammogram for malignant neoplasm of breast Expected: 06/24/2024 (Approximate), Expires: 06/25/2025 [facility] Work Phone: Comment on above: Expected: 06/24/2024 (Approximate), Expires: 06/25/2025 Start: 06-23-2024 Screening for malign ant neoplasm of breast Mammogram [facility] Start: 04-27-2024 End: 04-27-2025 25-hydroxyvitamin D3 [Mass/volume] in Serum or Plasma Vitamin D 25 hydroxy Lab Routine Osteopenia, unspecified location Expected: 04/27/2024 (Approximate), Expires: 04/27/2025 [facility] Comment on above: Expected: 04/27/2024 (Approximate), Expires: 04/27/2025 Start: 04-27-2024 End: 04-27-2025 CBC W Auto Differential panel - Blood CBC and differential Lab Routine Centrilobular emphysema (CMS/HCC) Expected: 04/27/2024 (Approximate), Expires: 04/27/2025 [facility] Comment on above: Expected: 04/27/2024 (Approximate), Expires: 04/27/2025 Start: 04-27-2024 End: 04-27-2025 Comprehensive metabolic 2000 panel - Serum or Plasma Comprehensive metabolic panel Lab Routine Centrilobular emphysema (CMS/HCC) HTN (hypertension), benign (CMS/HCC) Prediabetes Osteopenia, unspecified location Expected: 04/27/2024 (Approximate), Expires: 04/27/2025 [facility] Comment on above: Expected: 04/27/2024 (Approximate), Expires: 04/27/2025 Start: 04-27-2024 End: 04-27-2025 Hemoglobin A1c/Hemoglobin.total in Blood Hemoglobin A1c Lab Routine Prediabetes Expected: 04/27/2024 (Approximate), Expires: 04/27/2025 [facility] Comment on above: Expected: 04/27/2024 (Approximate), Expires: 04/27/2025 Start: 04-27-2024 End: 04-27-2025 Lipid 1996 panel - Serum or Plasma Lipid panel Lab Routine Prediabetes Expected: 04/27/2024 (Approximate), Expires: 04/27/2025 [facility] Comment on above: Expected: 04/27/2024 (Approximate), Expires: 04/27/2025 Start: 04-27-2024 End: 04-27-2025 Microalbumin/Creatinine panel in random Urine Microalbumin / creatinine, urine ratio Lab Routine HTN (hypertension), benign (CMS/HCC) Prediabetes Expected: 04/27/2024 (Approximate), Expires: 04/27/2025 [facility] Comment on above: Expected: 04/27/2024 (Approximate), Expires: 04/27/2025 Start: 04-27-2024 End: 04-27-2025 Urinalysis complete panel - Urine Urinalysis with reflex microscopic (clean catch) Lab Routine HTN (hypertension), benign (CMS/HCC) Prediabetes Expected: 04/27/2024 (Approximate), Expires: 04/27/2025 [facility] Comment on above: Expected: 04/27/2024 (Approximate), Expires: 04/27/2025 Start: 03-28-2024 End: 03-28-2024 Patient encounter procedure [facility] Comment on above: Arrived Start: 12-30-2023 Lipid panel Lipid screen [place], [place] Start: 12-26-2023 Influenza vaccination Influenza Vacc ine (#1) [facility] Start: 02-11-2023 Screening for malign ant neoplasm of cervix Cervical cancer screen [place], [place] Start: 01-12-2023 Screening for malign ant neoplasm of colon Colon cancer screen colonoscopy [place] Start: 02-23-2020 Screening for malign ant neoplasm of breast Breast cancer screen [place] Start: 02-13-2020 Pneumococcal 65+ yea rs Vaccine (1 of 1 - PPSV23) Pneumococcal 65+ years Vaccine (1 of 1 - PPSV23) [place] Start: 02-08-2020 End: 02-08-2020 Office Visit 02/08/2020 Office Visit Family Medicine Ottoniel Fuchs MD [facility] [place] [address] [facility] Start: 12-30-2019 Creatinine measurement Creatinine mo [place]itoring [place], [place] Start: 12-30-2019 HbA1c (Bld) [Mass fraction] A1C test (Diabetic or Prediabetic) [place] Start: 12-30-2019 Potassium monitoring Potassium monit oring [place] Start: 12-30-2019 TSH Qn TSH testing [place], [place] Start: 09-09-2019 Screening for malign ant neoplasm of lung Low dose CT lung screening [place] Start: 08-09-2019 Annual Wellness Visi t (AWV) Annual Wellness Visit (AWV) [place] Start: 02-11-2019 Medicare Annual Well ness (AWV) Medicare Annual Wellness (AWV) [facility] Start: 1964 Glaucoma screening Diabetes: R etinopathy Screening [facility] Start: 1954 Screening for malign ant neoplasm of colon [facility] Start: 1954 Screening for malign ant neoplasm of lung Lung Cancer Screening Shared Decision Making [facility] Immunizations Immunization Date Immunization Notes Care Provider Fa cili 03-01-2024 influenza, high dose seasonal, preservative-free Barbie Dhaliwal EXECUTIVE VP Work Phone: [facility] 03-01-2024 Fluzone High-Dose 0. 5 ML suspension prefilled syringe Barbie Dhaliwal EXECUTIVE VP Work Phone: [facility] 03-01-2024 influenza virus vacc ine, unspecified formulation Hector Arellano MD Work Phone: [facility] 03-08-2023 influenza virus vacc ine, unspecified formulation Kale MARINELLI [facility] 03-08-2023 Influenza, High-dose Seasonal, Quadrivalent, Preservative Free Barbie Isra EXECUTIVE VP Work Phone: [facility] 02-26-2023 RSV, recombinant, protein subunit RSVpreF, adjuvant reconstitu, 120mcg/0.5mL, PF (Arexvy) Barbie Dhaliwal EXECUTIVE VP Work Phone: [facility] 11-02-2022 Pneumococcal Conjuga te PCV 20 Barbie Dhaliwal EXECUTIVE VP Work Phone: [facility] 02-04-2021 SARS-CoV-2 (COVID-19 ) Ad26 vaccine, recombinant Kale MARINELLI [facility] Comment on above: Result Comment: 2022: [id number] 03-30-2019 Seasonal, quadrivale nt, recombinant, injectable influenza vaccine, preservative free [facility], [place] 12-29-2018 zoster vaccine recombinant [facility], [place] 02-11-2018 influenza virus vacc ine, unspecified formulation [facility] , [place] 02-11-2018 influenza, injectabl e, quadrivalent, contains preservative [facility], [place] 02-11-2018 zoster vaccine recombinant [facility], [place] 12-25-2015 tetanus toxoid, redu florentino diphtheria toxoid, and acellular pertussis vaccine, adsorbed [facility], [place] 02-12-2015 pneumococcal polysaccharide vaccine, 23 valent [facility], [place] 02-12-2015 zoster vaccine, live [facility] 01-24-2015 pneumococcal conjuga te vaccine, 13 valent Barbie Dhaliwal NP Work Phone: [facility] Payers Date Payer Category Payer Self-pay 2023 Medicare ANTHEM MEDICARE ADVANTAGE ANTHEM MEDICARE ADVANTAGE [id number] 2023-Present [address] [place] [address] [id number] 2023 Medicare (Managed Care) [facility] .[id number] 2023 Unknown [id number] 2019 Medicare MEDICARE MEDICAR E PART A AND B xxxxxxxxxxx 2019-Present [phone] [address] [address] [place] [address] xxxxxxxxxxx [id number] 2019 Private Health Insurance AETNA A ETNA SENIOR MEDICARE SUPP xxxxxxxxxx 2019-Present [phone] [address] [place] [address] xxxxxxxxxx [id number] 1960 Unknown [id number] 2.16.840.1.651462.3.579.2 .668 1960 Unknown [id number] 2.16.840.1.944110.3.579.2 .668 1959 Medicare [id number] 1959 Private Health Insurance CLI [id number] 1954 Unknown [id number] 2.16.840.1.982846.3.579.2 .668 1954 Unknown [id number] 2.840.1.880958.3.579.2 .668 1954 Unknown [id number] 2.16.840.1.566932.3.579.2 .668 1954 Unknown [id number] 2.16.840.1.155620.3.579.2 .668 1954 Unknown [id number] 2.16.840.1.199003.3.579.2 .668 1954 Unknown [id number] 2.16.840.1.652511.3.579.2 .668 1954 Unknown [id number] 2.16.840.1.113256.3.579.2 .668 1954 Unknown [id number] 2.16.840.1.412971.3.579.2 .593 1954 Unknown [id number] 2.16.840.1.351629.3.579.2 .593 1954 Unknown [id number] 2.16.840.1.697242.3.579.2 .593 1954 Unknown [id number] 2.16.840.1.380768.3.579.2 .593 1954 Unknown [id number] 2.16.840.1.126675.3.579.2 .593 1954 Unknown [id number] 2.16.840.1.443356.3.579.2 .593 1954 Unknown [id number] 2.16.840.1.395494.3.579.2 .727 1954 Unknown [id number] 2.16.840.1.896659.3.579.2 .727 1954 Unknown [id number] 2.16.840.1.626257.3.579.2 .727 1954 Unknown [id number] 2.16.840.1.850000.3.579.2 .1259 1954 Unknown [id number] 2.16.840.1.935114.3.579.2 .1259 1954 Unknown [id number] 2.16.840.1.957072.3.579.2 .1259 1954 Unknown [id number] 2.16.840.1.492503.3.579.2 .1259 1954 Unknown [id number] 2.16.840.1.736893.3.579.2 .1259 Unknown Social History Date Type Detail Facility Start: 09-24-1972 End: 09-19-2024 Tobacco smoking status NHIS Current every day smoker [place], [place] Start: 08-02-1971 End: 09-24-2022 History of tobacco use Cigarette [place] Start: 08-09-2019 End: 09-26-2023 Cigarettes smoked current (pack per day) - Reported [facility] Start: 08-09-2019 End: 12-20-2024 Alcohol intake Current drinker of alcohol (finding) [place] Start: 12-29-2018 History SDOH Alcohol Frequency 4 [place] Start: 12-29-2018 History SDOH Alcohol Std Drinks 1 [place] Start: 12-29-2018 History SDOH Social Connections Get Together 2 [place] Start: 12-29-2018 History SDOH Social Connections Living 3 [place] Start: 12-29-2018 History SDOH Physical Activity DPW 0 [place] Start: 12-29-2018 History SDOH Financial 5 [place] Start: 08-16-2017 Tobacco Comment Less than a pack a day [place] Start: 08-16-2017 Alcohol Comment Occasionally [place] Start: 1955 Sex Assigned At Not on file [place] Tobacco smoking stat [facility] Tobacco smoking consumption unknown [facility] Start: 09-26-2023 End: 03-28-2024 Gender identity Not on file [facility] Start: 04-21-2023 End: 09-27-2023 Tobacco smoking status Ex-smoker (finding) [facility] Tobacco smoking status Never [facility] [place] Start: 1955 Sex Assigned At Female [facility] Start: 09-24-1972 End: 09-24-2022 History of tobacco use Current smoker [facility] Start: 09-27-2023 End: 09-19-2024 Tobacco use and exposure Smokeless tobacco non-user [facility] Do you belong to any clubs or organizations such as buddhism groups, unions, fraternal or athletic groups, or [...] Present illness Narrative Subjective Patient ID: Akil Torres is a [...] cancer Brother Huber Deuschle Diabetes Maternal Grandmother Jolly Tima Asthma Son Pablito Henley Drug abuse [...] 06/12/2024 Bronchiolectasis (HCC) 09/13/2024 Chronic sinusitis 09/13/2024 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 current use of inhaled steroid 09/13/2024 Nicotine dependence, cigarettes, with unspecified nicotine-induced disorders 09/13/2024 BMI 30.0-30.9,adult 10/10/2024 Chronic respiratory failure with hypoxia ([facility]) 10/10/2024 Tonsillith 12/20/2024 Resolved Ambulatory Problems Diagnosis Date Noted Bronchiectasis without complication ([facility]) 12/25/2016 Prediabetes 12/29/2018 COPD with acute exacerbation ([facility]) 04/27/2024 Critical illness myopathy 09/13/2024 Past Medical History: Diagnosis Date Acute sinusitis, recurrence not specified, unspecified location Allergic Benign essential hypertension Chronic sinusitis, unspecified location Cigarette nicotine dependence with nicotine-induced disorder Fracture of nasal bones 1961 GERD (gastroesophageal reflux disease) Hypothyroidism Multiple pulmonary nodules Overweight Steroid-induced hyperglycemia Substance abuse ([facility]) Past Surgical History: Procedure Laterality Date BREAST [...] After use, clean tip and replace cap. Itphmqtzxwg-Jcfadumoj-Nqnocw (Trelegy Ellipta) 100-62.5-25 MCG/ACT aerosol powder Inhale [...] Continue quarterly exams documented in this encounter [facility] 10-10-2024 Note [facility] Cardiology Clinic Note Chief Complaint: Patient is here today for test results for his stress test and ECHO. Patient states she feels pretty good. Patient states her shortness of breath improved, patient states she has been walking more. Patient states she just came from Dr. Head office and he told her everything looked good. HPI: Akil Torres is a 69 y.o. female Here for [...] that time, she had chest pain, her light equipment operator did a number of tests and told her heart was fine PMHx: COPD exacerbation, hypothyroidism acquired, essential hypertension FH: No premature coronary artery disease in any first-degree relatives SOCIAL Hs: Unfortunately continues to smoke, drinks socially. Review of Systems Constitutional: Negative. Past Medical History She has a past medical history of COPD (chronic obstructive pulmonary disease) (CMS/HCC), Diabetes mellitus (CMS/[facility]), and Hypertension. Surgical History She has a [...] sinus rhythm, normal EKG Patient Name: AKIL TORRES MRN: [facility]:[id number] date: 1955 Sex: F Assigned Patient Location: CT Current Patient Location: CT Accession/Order Number: [id number] Exam Date: 08/11/2024 14:51 Report Date: 08/11/2024 [...] ESOPHAGUS: Unremarkable. HEART: Within normal limits Imaging [id number] [facility] 2 Patient name: AKIL TORRES PERICARDIAL EFFUSION: Small CORONARY ARTERY CALCIFICATION: None MEDIASTINUM: No adenopathy. No pneumoperitoneum. No mediastinal he (more content not included)... [facility] 09-28-2024 History of Present illness Narrative [...] follow with pulmonology. 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 current use of inhaled steroid 09/13/2024 Nicotine dependence, cigarettes, with unspecified nicotine-induced disorders 09/13/2024 Resolved Ambulatory Problems Diagnosis Date Noted Bronchiectasis without complication (CMS/HCC) 12/25/2016 Prediabetes 12/29/2018 Past Medical History: Diagnosis Date Acute sinusitis, recurrence not specified, unspecified location Allergic Benign essential hypertension (CMS/HCC) Chronic respiratory failure with hypoxia (CMS/[facility]) Chronic sinusitis, unspecified location Cigarette [...] After use, clean tip and replace cap. Qlvmdrkgppm-Ryqbdyplq-Ronjxw (Trelegy Ellipta) 100-62.5-25 MCG/ACT aerosol powder Inhale [...] regular rate and rhythm; Patient ID: Akil Torres is a 69 y.o. female. Procedures A [...] - numeric: 1/10 documented in this encounter [facility] 09-06-2024 Note [facility] Cardiology Clinic Note Chief Complaint: New patient here to establish care. Patient referred to cardiology by Dr. Wayne due to spots by by in one of her arteries. Patient state she gets out of breath with exertion. HPI: Akil Torres is a 69 y.o. female Here for [...] that time, she had chest pain, her light equipment operator did a number of tests and told [...] sinus rhythm, normal EKG Patient Name: AKIL TORRES MRN: [facility]:[id number] date: 1955 Sex: F Assigned Patient Location: CT Current Patient Location: CT Accession/Order Number: [id number] Exam Date: 08/11/2024 14:51 Report Date: 08/11/2024 [...] ESOPHAGUS: Unremarkable. HEART: Within normal limits Imaging [id number] [facility] 2 Patient name: AKIL TORRES PERICARDIAL EFFUSION: Small CORONARY ARTERY CALCIFICATION: None [...] from recent prio (more content not included)... [facility] 04-27-2024 History of Present illness Narrative Associated Problem(s): Tobacco user The patient has been advised of the risks of continued smoking: stroke, [place], all forms of cancer, lung disease, and [...] trigger Associated Problem(s): COPD with acute exacerbation ([facility]) Recent hospitalization about 2 weeks ago Is feeling much better Continue inhalers, cont with dr head Goal of smoking cessation Images from the original note were not included. Akil Torres is a 68 y.o. female presents with [...] 50 MCG/ACT nasal spray 2 sprays, Daily Crgzgeldsfa-Hfvcijzov-Krrhpa (Trelegy Ellipta) 100-62.5-25 MCG/ACT aerosol powder Inhale [...] of the risks of continued smoking: stroke, [place], all forms of cancer, lung disease, and [...] Feeling much better documented in this encounter [facility] 04-27-2024 Instructions Barbie Dhaliwal NP - 04/27/2024 11:00 AM EST Mammogram and bone density : late May early June, [facility] should call, , ext [phone] Labs mid 06/20 documented in this encounter [facility] 03-28-2024 History of Present [...] Subjective Patient ID: Akil Torres is a 68 y.o. female who presents [...] daily Aspirin therapy. documented in this encounter [facility] 04-21-2023 Note Chief Complaint consultation for screening colonoscopy [facility] Staff 67 year old female presents [...] 1 puff(s), Inhalation, Daily Flonase 0.05 mg/inh [place], 100 mcg, Nasal, Daily levothyroxine 112 mcg [...] of lung: Brother. (more content not included)... [facility] Comment on above: Result Comment: Elec tronically Signed By: ISIS ALCANTAR, Kale Thurman\Date and Time Signed: 04/21/23 14:46 EST Evaluation + Plan note No data available for this section [facility] [place] Evaluation note No assessment inform ation available [facility] Work Phone: Evaluation note Diagnosis HTN [...] visit, subsequent- Primary documented in this encounter [facility] HealthcareEvaluation note* Diagnosis HTN (hypertension), benign [...] insulin (CMS/HCC)- Primary documented in this encounter [facility] HealthcareEvaluation note* Diagnosis HTN (hypertension), benign [...] Primary Chronic tonsillitis documented in this encounter [facility] HealthcareEvaluation note* Diagnosis HTN (hypertension), benign [...] Centrilobular emphysema (CMS/HCC) documented in this encounter [facility] HealthcareEvaluation note* Diagnosis HTN (hypertension), benign- Primary [...] scan- Primary Tonsillith documented in this encounter [facility] Discharge instructions No data available for this section [facility] [place] Progress note No data available for this section [facility] Summary Purpose Family History No Family History Records FoundNo Family History Records FoundNo Family History Records FoundNo Family History Records FoundNo Family History Records Found No data available for this section No Family History Records FoundNo Family History Records FoundNo Family History Records FoundNo Family History Records Found Advance Directives No Advanced Directives Records FoundDocuments on File Type Date Recorded 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 [place] [address] Assessments Diagnosis Cigarette nicotine dependence with nicotine-induced disorder Unspecified drug-induced mental disorder Additional Source Comments INFORMATION SOURCE (unrecogn ized section and content) DATE CREATED AUTHOR 10/20/2017 [facility] DATE CREATED AUTHOR AUTHOR'S ORGANIZ ATION 04/04/2018 [facility] DATE CREATED AUTHOR AUTHOR'S ORGANIZ ATION 04/09/2018 [facility] DATE CREATED AUTHOR AUTHOR'S ORGANIZ ATION 09/26/2019 [facility] DATE CREATED AUTHOR AUTHOR'S ORGANIZ ATION 10/02/2022 [facility] DATE CREATED AUTHOR AUTHOR'S ORGANIZ ATION 06/15/2023 [facility] DATE CREATED AUTHOR AUTHOR'S ORGANIZ ATION 06/15/2023 [facility] DATE CREATED AUTHOR AUTHOR'S ORGANIZ ATION 10/13/2024 [facility] DATE CREATED AUTHOR AUTHOR'S ORGANIZ ATION 12/22/2024 [facility] dical Specialists EPIC Care Teams (unrecognized sec tion and content) Axle Polisher Relationship Specialty Start Date End Date Ottoniel Fuchs MD [address] [place] [address] PCP - General 12/21/13 Team Status: Inactive Member Role Status Dates Kale Marinelli MD FACS Attending Provider Active Start: May 12, 2023 End: May 12, 2023 Axle Polisher Relationship Specialty Start Date End Date Antonio Hopkins MD [address] [place] [address] PCP - General Family Medicine 10/21/22 Antonio Hopkins MD [address] [place] [address] PCP - Jaycee DAVIS 11/25/23 Axle Polisher Relationship Specialty Start Date End Date Antonio Hopkins MD [address] [place] [address] PCP - General Family Medicine 10/21/22 Antonio Hopkins MD [address] [place] [address] PCP - Jaycee DAVIS 11/25/23 Axle Polisher Relationship Specialty Start Date End Date Antonio Hopkins MD [address] [place] [address] PCP - General Family Medicine 10/21/22 Antonio Hopkins MD [address] [place] [address] PCP Bernard Champion MA 11/25/23 Axle Polisher Relationship Specialty Start Date End Date Antonio Hopkins MD [address] [place] [address] PCP - General Family Medicine 10/21/22 Antonio Hopkins MD [address] [place] [address] PCP - Jaycee DAIVS 11/25/23 Delmar Bowen MA Family Medicine 04/18/24 Axle Polisher Relationship Specialty Start Date End Date Antonio Hopkins MD [address] [place] [address] PCP - General Family Medicine 10/21/22 Delmar Bowen MA [facility] 04/18/24 Axle Polisher Relationship Specialty Start Date End Date Antonio Hopkins MD [address] [place] [address] PCP - General Family Medicine 10/21/22 Delmar Bowen MA [facility] 04/18/24 Axle Polisher Relationship Specialty Start Date End Date Antonio Hopkins MD [address] [place] [address] PCP - General Family Medicine 10/21/22 Antonio Hopkins MD [address] [place] [address] PCP - [facility] 11/25/23 Delmar Bowen MA [facility] 04/18/24 Axle Polisher Relationship Specialty Start Date End Date Antonio Hopkins MD [address] [place] [address] PCP - General Family Medicine 10/21/22 Delmar Bowen MA [facility] 04/18/24 Axle Polisher Relationship Specialty Start Date End Date Antonio Hopkins MD [address] [place] [address] PCP - General Family Medicine 10/21/22 Delmar Bowen MA Family [facility] 04/18/24 Axle Polisher Relationship Specialty Start Date End Date Antonio Hopkins MD [address] [place] [address] PCP - General Family Medicine 10/21/22 Antonio Hopkins MD [address] [place] [address] PCP - [place] 11/25/23 Delmar Bowen [facility] 04/18/24 Axle Polisher Relationship Specialty Start Date End Date Antonio Hopkins MD [address] [place] [address] PCP - General Family Medicine 10/21/22 Antonio Hopkins MD [address] [place] [address] PCP - [place] 11/25/23 Delmar Bowen [facility] 04/18/24 Axle Polisher Relationship Specialty Start Date End Date Antonio Hopkins MD [address] [place] [address] PCP - General Family Medicine 10/21/22 Antonio Hopkins MD [address] [place] [address] PCP - [place] 11/25/23 Delmar Bowen MA [facility] 04/18/24 Axle Polisher Relationship Specialty Start Date End Date Antonio Hopkins MD [address] [place] [address] PCP - General Family Medicine 10/21/22 Antonio Hopkins MD [address] [place] [address] PCP - Jaycee DAVIS 11/25/23 Delmar Bowen MA [address] [place] [address] Family Medicine 04/18/24 Axle Polisher Relationship Specialty Start Date End Date Antonio Hopkins MD [address] [place] [address] PCP - General Family Medicine 10/21/22 Antonio Hopkins MD [address] [place] [address] PCP Bernard Champion MA 11/25/23 Axle Polisher Relationship Specialty Start Date End Date Antonio Hopkins MD [address] [place] [address] PCP - General [facility] Medicine 10/21/22 Antonio Hopkins MD [address] [place] [address] PCP - Jaycee DAVIS 11/25/23 Goals (unrecognized [...] BE BASED ON THE PRIMARY CLINICAL RECORDS. [facility]. provides no warranty or guarantee of the accuracy or completeness of information in this document.
--- OUTSIDE RECORDS SUMMARY | 2025-01-27 23:59 | XMS_ITS | Encounter Summary ---
Author Organization [facility] Address [address] [place] [address] Care Team Providers Care Plant Technician/Control Room Operator Name Role Phone Antonio Riggins MD Primary Care Provider [phone] Antoino Riggins MD Unavailable Sonam Gloria LPN Unavailable Delmar Bowen MA Unavailable [phone] Encounter Details Date Type Department Care [...] often do you attend chur ch or christianity services? Never 09/26/2023 Do you belong to any clubs o r organizations such as pentecostalism groups, unions, fraternal or athletic groups, or [...] EST Office Visit [facility] [place] [facility] 112 [facility] 130 [place] [address] Analisa Mireles MD 112 [facility] [address] [place] [address] documented as of this encounter Procedures Procedure Name Priority Date/Time Associated Diagnosis Comments RT PULMONARY FUNCTION TEST 01/31/2024 9:00 AM EDT documented in this encounter Results * RT PULMONARY FUNCTION TEST (01/31/2024 9:00 AM EDT) Anatomical Region Laterality Modality Other 01/31/2024 9:00 AM EDT Narrative 02/01/2024 6:46 AM EDT [address] [address] Respiratory Report Signed Patient: ERICA CHACON MR#: [id number] : 1955 Acct:[id number] Age/Sex: 68 / F ADM Date: 01/31/24 Loc: CARD Attending Dr: Sukh Lovelace D.O. Ordering Physician: Sukh Lovelace D.O. Date of Service: 01/31/24 Procedure(s): RT pulmonary function test Accession Number(s): [id number] cc: [facility] Test Date: 2024-01-31 Pat Name: ERICA CHACON Department: Room: - Gender: Female Pet Nutrition Specialist: : 1955 Requested By: Sukh Lovelace Order Number: [id number] Reading MD: Sukh Lovelace Interpretive Statements Pulmonary function testing was completed according to ATS criteria. Findings were considered accurate and reproducible. Both pre- and post-bronchodilator values utilized for spirometry. Spirometry (based on pre-bronchodilator values): -FEV1/FVC: Decreased @ 57% -FEV1: Moderately-severe reduction @ 50% -FVC: Reduced @ 67% -ESB53-93%: Reduced @ 25% -There is no significant [...] Sukh Lovelace D.O. Signed By: 02/01/2464502/01/24645 DD/ 9 TD/TT: Invasive Cardiologist: Procedure Note Radiology, Radiologist, MD - 02/01/2024 [place] [address] Respiratory Report Signed Patient: ERICA CHACON AMR#: [id number] : 5Acct:[id number] Age/Sex: 68 / FADM Date: 01/31/24 Loc: CARD Attending Dr: Sukh Lovelace D.O. Ordering Physician: Sukh Lovelace D.O. Date of Service: 01/31/24 Procedure(s): RT pulmonary function test Accession Number(s): [id number] cc: [facility] Test Date: 2024-01-31 Pat Name: ERICA CHACON Department: Room: - Gender: Female Pet Nutrition Specialist: : 1955 Requested By: Sukh Lovelace Order Number: [id number] Reading MD: Sukh Lovelace Interpretive Statements Pulmonary function testing was completed according to ATS criteria.Findings were considered accurate and reproducible. Both pre- andpost-bronchodilator values utilized for spirometry. Spirometry (based on pre-bronchodilator values): -FEV1/FVC: Decreased @ 57% -FEV1: Moderately-severe reduction @ 50% -FVC: Reduced @ 67% -KAF21-61%: Reduced @ 25% -There is no significant [...] Lovelace Dictated By: Sukh Lovelace D.O. Signed By:02/01/2464502/01/24645 DD/ 09 TD/TT: Invasive Cardiologist: us Generic External Data Provider [facility] Final Result documented in this encounter Visit Diagnoses Not on filedocumented in this encounter Care Teams Plant Technician/Control Room Operator Relationship Specialty Start Date End Date Antonio Riggins MD PCP - General Family Medicine 10/21/22 Antonio Riggins MD [address] [place] [address] PCP - Jaycee DAVIS 11/25/23 Sonam Gloria LPN [address] [place] [address] Licensed Practical Nurse Family Medicine 04/17/2403/27 Delmar Bowen MA [address] [place] [address] Family Medicine 04/18/24 12/19/24 documented as of this encounter
--- OUTSIDE RECORDS SUMMARY | 2025-01-27 23:59 | XMS_ITS | Encounter Summary ---
Author Organization [facility] Address [address] [place] [address] Care Team Providers Care Lighting Specialist Name Role Phone Antonio Riggins MD Primary Care Provider Antonio Riggins MD Unavailable Sonam Gloria LPN Unavailable Delmar Bowen MA Unavailable [phone] Encounter Details Date Type Department Care Team (Late Contact Info) Description 07/22/2023 Orders Only [facility] [place] [facility] [address] [facility] [place] [address] Jovanny Lima MD [address] [place], [place] [phone] Social History Tobacco Use Types Packs/Day Years [...] 03/20/2025 9:10 AM EST Office Visit [facility] [place] [facility] 112 [facility] 130 [place] [address] Analisa Mireles MD 112 [facility] 130 [place], [place] [address] documented as of this encounter Procedures Procedure [...] on filedocumented in this encounter Care Teams Lighting Specialist Relationship Specialty Start Date End Date Antonio Riggins MD PCP - General Family Medicine 10/21/22 Antonio Riggins MD [address] [place] [place] [address] PCP - Jaycee DAVIS 11/25/23 Sonam Gloria LPN [address] [place] [address] Licensed Practical Nurse Family Medicine 04/17/2403/27 Delmar Bowen MA [address] [place] [address] Family Medicine 04/18/24 12/19/24 documented as of this encounter
--- OUTSIDE RECORDS SUMMARY | 2025-01-27 23:59 | XMS_ITS | Encounter Summary ---
Author Organization [facility] Address [address] [facility], [address] [place] [address] Care Team Providers Care Tester Electronic Scale Name Role Phone Unavailable Primary Care Provider Unavailabl e Reason for Visit * Reason Comments Medication Refill Encounter Details Date Type Department Care Team (Late st Contact Info) Description 09/23/2020 Refill [facility] Medicine [address] [facility] [address] [place] [address] Ottoniel Fucsh MD [address] [place] [address] Medication Refill Social History Tobacco Use Types Packs/Day Years Used Date Smoking Tobacco: Every Day Cigarettes 1 53.5 Started: 08/02/1971 Smokeless Tobacco: Never Comments:Less than [...] Answer Date Recorded PHQ-2 Score 0 07/27/2018 [facility] [place] of Occupat ional Health - Occupational Stress [...]
--- OUTSIDE RECORDS SUMMARY | 2025-01-27 23:59 | XMS_ITS | Encounter Summary ---
Author Organization [facility] Address [address] [facility] [place] [address] Care Team Providers Care Mohel Name Role Phone Antonio Riggins MD Primary Care Provider [phone] Antonio Riggins MD Unavailable Delmar Bowen MA Unavailable [phone] Encounter Details Date Type Department Care Team (Late st Contact Info) Description 10/10/2024 Results Follow-Up [facility] [address] [place] [address] Antonio Riggins MD [address] [place] [address] MLR HEMOGLOBIN A1C Social History Tobacco Use Types Packs/Day Years [...] often do you attend chur ch or zoroastrianism services? Never 09/26/2023 Do you belong to any clubs o r organizations such as spiritism groups, unions, fraternal or athletic groups, or [...] Recorded Patient Health Questionnaire-2 Score 0 03/28/2024 [facility] [place] of Occupat ional Health - Occupational Stress [...] Visit [facility] [place] [facility] [address] [facility] 130 [place] [address] Analisa Mireles MD [address] [facility] 130 [place] [address] documented as of this encounter Visit Diagnoses Not on filedocumented in this encounter Additional Health Concerns Assessment Noted Time PHQ-9 Depression Total Score: 0 03/28/20 24 11:00 AM EST documented as of this encounter Care Teams Mohel Relationship Specialty Start Date End Date Antonio Riggins MD PCP - General Family Medicine 10/21/22 Antonio Riggins MD [address] [place] [address] PCP - Jaycee DAVIS 11/25/23 Delmar Bowen MA [address] [place] [address] Family Medicine 04/18/24 12/19/24 documented as of this encounter
--- OUTSIDE RECORDS SUMMARY | 2025-01-27 23:59 | XMS_ITS | Encounter Summary ---
Author Organization [facility] Address [address] [place] [address] Care Team Providers Care Healthcare Sales Representative Name Role Phone Antonio Riggins MD Primary Care Provider [phone] Antonio Riggins MD Unavailable Delmar Bowen MA Unavailable Encounter Details Date Type Department Care Team (Late st Contact Info) Description 09/05/[address] [facility] [place] [facility] [address] [place] [address] Sukh Lovelace, DO [address] [place] [address] Social History Tobacco Use Types Packs/Day Years [...] any clubs o r organizations such as lutheran groups, unions, fraternal or athletic groups, or [...] Recorded Patient Health Questionnaire-2 Score 0 03/28/2024 [facility] of Occupat ional Health - Occupational [...] Office Visit [facility] [place] [facility] [address] [facility] 130 [place] [address] Analisa Mireles MD [address] [facility] 130 [place] [address] documented as of this encounter Procedures Procedure [...] documented as of this encounter Care Teams Healthcare Sales Representative Relationship Specialty Start Date End Date Antonio Riggins MD PCP - General Family Medicine 10/21/22 Antonio Riggins MD [address] [place] [address] PCP - Jaycee DAVIS 11/25/23 Delmar Bowen MA [address] [place] [address] Family Medicine 04/18/24 12/19/24 documented as of this encounter
--- OUTSIDE RECORDS SUMMARY | 2025-01-27 23:59 | XMS_ITS | Encounter Summary ---
Author Organization [facility] Address [address] [facility], [address] [place] [address] Care Team Providers Care Distribution Operations Manager Name Role Phone Ottoniel Fuchs MD Primary Care Provider [phone] Reason for Visit * Reason Comments Medication Refill Encounter Details Date Type Department Care Team (Late st Contact Info) Description 11/13/2016 Refill [facility] [address] [place] [address] Ottoniel Fuchs MD [address] [place] [address] Medication Refill Social History Tobacco Use Types [...] on filedocumented in this encounter Care Teams Distribution Operations Manager Relationship Specialty Start Date End Date Ottoniel Fuchs MD PCP - General Family Medicine 11/29/14 02/07/20 documented as of this encounter
--- OUTSIDE RECORDS SUMMARY | 2025-01-27 23:59 | XMS_ITS | Encounter Summary ---
Author Organization [facility] Address [address] [place] [address] Care Team Providers Care Research Pharmacist Name Role Phone Antonio Riggins MD Primary Care Provider [phone] Antonio Riggins MD Unavailable Delmar Bowen MA Unavailable Encounter Details Date Type Department Care Team (Late st Contact Info) Description 10/05/2024 Orders Only [facility] [address] [place] [address] Antonio Riggins MD [address] [place] [address] Social History Tobacco Use Types Packs/Day Years [...] any clubs o r organizations such as samaritan groups, unions, fraternal or athletic groups, or [...] Recorded Patient Health Questionnaire-2 Score 0 03/28/2024 [facility] - Occupational Stress Questionnaire Answer Date [...] Visit [facility] [place] [facility] [address] [facility] 130 [place] [address] Analisa Mireles MD [address] [facility] 130 [place], [place] [address] documented as of this encounter Procedures Procedure [...] documented as of this encounter Care Teams Research Pharmacist Relationship Specialty Start Date End Date Antonio Riggins MD PCP - General Family Medicine 10/21/22 Antonio Riggins MD [address] [place] [address] PCP - Jaycee DAVIS 11/25/23 Delmar Bowen MA [address] [place] [address] Family Medicine 04/18/24 12/19/24 documented as of this encounter
--- OUTSIDE RECORDS SUMMARY | 2025-01-27 23:59 | XMS_ITS | Clinical Summary ---
Author Organization [facility] Address [address] [place] [address] Care Team Providers Care Clinic Receptionist Name Role Phone Ottoniel Fuchs MD Primary Care Provider [phone] Allergies No known active allergies Medications calcium, [...] 0 11/12/2013, 10/06/2008 Bone Density Screening 08/02/2019 Advance Directive Discussion 04/26/2024 Influenza Vaccine (#1) 2024 RSV Vaccine (1 - 1-dose 75+ [...] EDT) Sodium 136 136 - 145 mEq/L [facility] Potassium 4.1 3.5 - 5.1 mEq/L [facility] Chloride 105 98 - 107 mEq/L [facility] CO2 31 21 - 32 mEq/L [facility] Glucose 151(H) 70 - 99 mg/dL [facility] BUN 7 7 - 25 mg/dL [facility] Creatinine 0.51 0.51 - 0.95 mg/dL [facility] Calcium 9.1 8.5 - 10.1 mg/dL [facility] Albumin 2.8(L) 3.4 - 5.0 g/dL [facility] Protein, Total 6.6 6.4 - 8.2 g/dL [facility] AST 34 15 - 37 U/L [facility] ALT 44 12 - 78 U/L [facility] Alkaline Phosphatase 60 46 - 116 U/L [facility] Bilirubin, Total 0.1(L) 0.2 - 1.0 mg/dL [facility] Anion Gap 4(L) 8 - 20 [facility] BUN/CREATININE RATIO 14 10 - 20 [facility] 11/13/2013 6:20 AM EDT 11/13/2013 6:29 AM EDT Cristel Herrera DO LABORATORY Final Resul t [facility] [address] [phone] * LIPID PANEL BASIC (10/06/2008 9:09 AM EDT) Cholesterol, Total 167 <200 MG/DL [facility] Comment: CHOLESTEROL RECOMMENDATIONS: <200 DESIRABLE 200-240 BORDERLINE >240 HIGH Triglyceride 40 <250 MG/DL [facility] HDL Cholesterol 84 SEE BELOW MG/DL [facility] Comment: HDL RECOMMENDATIONS: MALE FEMALE >55 >65 DESIRABLE 35-55 45-65 BORDERLINE <35 <45 UNDESIRABLE LDL Cholesterol, Calculated 75 0 - 130 MG/DL [facility] Comment: LDL RECOMMENDATIONS: <130 DESIRABLE 130-160 BORDERLINE >160 UNDESIRABLE VLDL Cholesterol 8 0 - 50 MG/DL [facility] 10/06/2008 9:09 AM EDT 10/06/2008 9:09 AM EDT Ottoniel Fuchs MD LABORATORY Final Result [facility] * MAMMOGRAM SCREENING SWATI W/CAD (03/23/2007 9:04 AM EST) Local Superintendent RADIOLOGY SCREENING MAMMOGRAM NAME: Akil Torres ROOM#:XR - #: [id number] ATTEND PHYS:Ottoniel Fuchs M.D. ACCT: [id number] ORDER PHYS:Ottoniel Fuchs M.D. RAD #: [id number] FIN CLASS:B PT TYPE:O EXAM DATE: 03/14/2007 [...] Date: 03/15/2007 Time: 09:55 PM VJob #: [id number] Document ID: [id number] COM: [id number] SCREENING COPY [facility] Anatomical Region Laterality Modality Other 03/23/2007 9:04 AM EST Narrative 03/23/2007 9:04 AM EST Ordered by an unspecified provider. [facility] Provider [place] MAMMOGRAPHY Final Resul t from Last 3 Months or Most Recently Relevant to Health Maintenance Care Teams Clinic Receptionist Relationship Specialty Start Date End Date Ottoniel Fuchs MD PCP - General Family Medicine 05/21/11
--- OUTSIDE RECORDS SUMMARY | 2025-01-27 23:59 | XMS_ITS | Encounter Summary ---
Author Organization [facility] Address [address] [place] [address] Care Team Providers Care Operations Agent Name Role Phone Antonio Riggins MD Primary Care Provider [phone] Antonio Riggins MD Unavailable Sonam Gloria LPN Unavailable Delmar Bowen MA Unavailable [phone] Encounter Details Date Type Department Care Team (Late st Contact Info) Description 04/17/2024 Orders Only [facility] [address] [place] [address] Unallocated, [facility] Provider, [address] [place], [place] [address] Social History Tobacco Use Types Packs/Day Years [...] often do you attend chur ch or restorationism services? Never 09/26/2023 Do you belong to any clubs o r organizations such as sabianism groups, unions, fraternal or athletic groups, or [...] place to sleep or slept in a custodial (including now)? No 09/26/2023 Comments Unknown Sex [...] Visit [facility] [place] [facility] [address] [facility] 130 [place] [address] Analisa Mireles MD [address] [facility] 130 [place] [address] documented as of this encounter Procedures Procedure Name Priority Date/Time Associated Diagnosis Comments XR CHEST 1 VIEW Routine 04/13/2024 8:56 AM EST documented in this encounter Results * XR chest 1 view (04/13/2024 8:56 AM EST) Anatomical Region Laterality Modality Chest Radiographic Sari ging us [facility] Provider Unallocated IMG XR PROCEDURES F inal Result documented in this encounter Visit Diagnoses Not on filedocumented in this encounter Additional Health Concerns Assessment Noted Time PHQ-9 Depression Total Score: 0 03/28/20 24 11:00 AM EST documented as of this encounter Care Teams Operations Agent Relationship Specialty Start Date End Date Antonio Riggins MD PCP - General Family Medicine 10/21/22 Antonio Riggins MD [address] [place] [address] PCP - Jyacee DAVIS 11/25/23 Sonam Gloria LPN [address] [place] [address] Licensed Practical Nurse Family Medicine 04/17/2403/27 Delmar Bowen MA [address] [place] [address] Family Medicine 04/18/24 12/19/24 documented as of this encounter
--- OUTSIDE RECORDS SUMMARY | 2025-01-27 23:59 | XMS_ITS | Encounter Summary ---
Author Organization [facility] Address [address] [place] [address] Care Team Providers Care Transportation Technician Name Role Phone Antonio Riggins MD Primary Care Provider Antonio Riggins MD Unavailable Sonam Gloria NEUROSURGICAL NURSE Unavailable Delmar Bowen MA Unavailable [phone] Encounter Details Date Type Department Care Team (Late Contact Info) Description 07/23/2023 Orders Only [facility] [address] [place] [address] Antonio Riggins MD [address] [place] [address] Social History Tobacco Use Types Packs/Day Years [...] Visit [facility] [place] [facility] [address] [facility] 130 [place] [address] Analisa Mireles MD [address] [facility] 130 [place], [place] [address] documented as of this encounter Procedures Procedure Name Priority Date/Time Associated Diagnosis Comments ECG 12-LEAD Routine 07/23/2023 10:36 AM EDT documented in this encounter Results * ECG 12 lead (07/23/2023 10:36 AM EDT) Antonio Riggins MD ECG ORDERABLES Final Result documented in this encounter Visit Diagnoses Not on filedocumented in this encounter Care Teams Transportation Technician Relationship Specialty Start Date End Date Antonio Riggins MD PCP - General Family Medicine 10/21/22 Antonio Riggins MD [address] [place] [address] PCP - Jaycee DAVIS 11/25/23 Sonam Gloria LPN [address] [place] [address] Licensed Practical Nurse Family Medicine 04/17/2403/27 Delmar Bowen MA [address] [place] [address] Family Medicine 04/18/24 12/19/24 documented as of this encounter
[2025-01-28] VITALS (9 sets, daily range): BP systolic 85–122; BP diastolic 48–81; PULSE 69–74; O2SAT 89–93
[2025-01-28] LABS: Hematocrit 44.1 % (36.0-48.0); Hemoglobin 14.8 g/dL (12.0-16.0); Immature Granulocytes Abs Auto 0.01 10^3/uL (0.00-0.03); Immature Granulocytes Pct Auto 0.1 % (0.0-0.5); Lymphocytes Absolute Auto 2.9 10^3/uL (1.2-3.8); Mean Corpuscular HGB Conc 33.6 g/dL (29.9-35.2); Mean Corpuscular Hemoglobin 31.5 pg (26.7-34.0); Mean Corpuscular Volume 93.8 fL (81.0-99.0); Platelet Count 241 10^3/uL (150-450); Red Blood Count 4.70 10^6/uL (4.20-5.40); White Blood Count 7.7 10^3/uL (4.0-11.0)
[2025-01-28] MEDS: ASPIRIN 81 MG TAB.CHEW 324 MG PO (00:07)
[2025-01-28] MEDS: NITROGLYCERIN 0.4 MG BOTTLE SL (00:08)
[2025-01-28 00:24] LABS: Anion Gap 13.0; Blood Urea Nitrogen 13.0 mg/dL (7.0-18.0); Calcium 8.8 mg/dL (8.5-10.1); Carbon Dioxide 28.1 mmol/L (21.0-32.0); Chloride 106 mmol/L (98-107); Estimated GFR (African America >60 (>=60 mL/min/1.73m^2); Estimated GFR (Non-African Ame >60 (>=60 mL/min/1.73m^2); Glucose 87 mg/dL (74-106); Potassium 4.1 mmol/L (3.5-5.1); Sodium 143 mmol/L (136-145)
== END 2025-01-28 01:30 | disposition home or self-care (01) ==
PROVIDERS: Emergency Provider Emergency Medicine; PCP Family Medicine
DX: R07.9 Chest pain, unspecified (principal); Z87.891 Personal history of nicotine dependence
CPT/HCPCS: 36415; 71045; 80048; 84484; 85025; 93005; 99285